=== PATIENT | male | born 1950 | race Caucasian/White ===

== ENCOUNTER 2023-01-14 16:37 | Outpatient (REF) | payer MEDICARE, SELFPAY ==
[2023-01-14 17:00] LABS: Adenovirus F 40/41 NOT DETECTED (NOT DETECTE); Astrovirus NOT DETECTED (NOT DETECTE); Campylobacter NOT DETECTED (NOT DETECTE); Cryptosporidium NOT DETECTED (NOT DETECTE); Cyclospora cayetanensis NOT DETECTED (NOT DETECTE); E coli 0157 NOT DETECTED (NOT DETECTE); Entamoeba histolytica NOT DETECTED (NOT DETECTE); Enteroaggregative E.coli NOT DETECTED (NOT DETECTE); Enteropathogenic E.coli NOT DETECTED (NOT DETECTE); Enterotoxigenic E. coli NOT DETECTED (NOT DETECTE); Giardia lamblia NOT DETECTED (NOT DETECTE); Norovirus GI/GII NOT DETECTED (NOT DETECTE); Plesiomonas shigelloides NOT DETECTED (NOT DETECTE); Rotavirus A NOT DETECTED (NOT DETECTE); Salmonella NOT DETECTED (NOT DETECTE); Sapovirus NOT DETECTED (NOT DETECTE); Shiga-like toxin-producing E.C NOT DETECTED (NOT DETECTE); Shigella/Enteroinvasive E.coli NOT DETECTED (NOT DETECTE); Vibrio NOT DETECTED (NOT DETECTE); Vibrio cholerae NOT DETECTED (NOT DETECTE); Yersinia enterocolitica NOT DETECTED (NOT DETECTE)
== END 2023-01-14 16:38 | disposition home or self-care (01) ==
LOC: LAB 16:37
PROVIDERS: Visit Provider Emergency Medicine
DX: R19.7 Diarrhea, unspecified (principal)
CPT/HCPCS: 87507

== ENCOUNTER 2023-02-25 12:55 | Observation (INO) | payer MEDICARE, SELFPAY ==
[2023-02-25] VITALS (15 sets, daily range): BP systolic 114–202; BP diastolic 55–105; PULSE 61–95; RESP 16–25; TEMP 36.6–36.8; O2SAT 93–98; BMI 22.9; BMI 23.8
--- NOTE | 2023-02-25 13:14 | XR_ITS ---
The [address] [address] Patient Name: JEB TOBISA MRN: [id number] date: 1950 Sex: M Assigned Patient Location: ER Current Patient Location: MS Accession/Order Number: [id number] Exam Date: 02/25/2023 14:00 Report Date: 02/25/2023 19:51 At the request of: MICHELE DICKERSON Procedure: XR chest 1V EXAMINATION: XR chest 1V HISTORY: syncope COMPARISON: No relevant comparison available. FINDINGS: LUNGS: No significant pulmonary parenchymal abnormalities. VASCULATURE: No increased pulmonary vasculature. PLEURA: No pneumothorax, effusion, or pleural thickening. CARDIAC: No cardiomegaly or cardiac silhouette abnormality. MEDIASTINUM: No visible mass or adenopathy. BONES: No fracture or visible bone lesion. OTHER: Negative. XR/XR chest 1V IMPRESSION: 1. No acute cardiopulmonary process. Preliminary findings were provided to the emergency department at time of imaging. Electronically authenticated by: LILIANA AREVALO Date: 02/25/2023 19:51
--- NOTE | 2023-02-25 13:14 | ECG_ITS ---
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
--- NOTE | 2023-02-25 13:14 | ED.SYNCOPE1 ---
HPI - Syncope General Chief Complaint: Syncope Stated Complaint: LOWER EXTREMITY INJURY Time Seen by Provider: 02/25/23 13:14 Mode of arrival: ambulance Limitations: no limitations History of Present Illness HPI narrative: Patient brought in via EMS with a complaint of syncope. Patient had been riding his bike to [place]. He went to the gym was lifting some weights and working out. He accidentally hit his right knee very hard onto a metal bar which caused him to feel like he was going to pass out from the pain. He became near syncopal and was thirst. he asked for some water And EMS was contacted. Patient states he was diaphoretic and bradycardic when EMS arrived at 49 beats per minutes. He denied any chest pain, or shortness of breath. He has no previous history of syncope. He has not been sick with any nausea, vomiting. Has a history of Crohn's disease and is only taking medication for Crohn's. He denies any upper respiratory infection symptoms. Patient's had a syncopal episode in July while he was in [place]. He had a CT scan of his brain done at that after he returned to the [facility]. He has never had any cardiac workup done more carotid Dopplers done. Related Data Home Medications Medication Instructions Recorded Confirmed lisinopril 5 mg tablet 5 mg BID 02/25/23 ondansetron 8 mg disintegrating 8 mg PO Q8H PRN nausea and vomiting 02/25/23 02/25/23 tablet Allergies Allergy/AdvReac Type Severity Reaction Status Date / Time Fish Containing Products AdvReac Severe Abdominal Verified 02/25/23 13:00 Pain Review of Systems ROS Status of ROS 10 or more systems reviewed and unremarkable except as noted in history and below Exam Narrative Exam Narrative: Nurses notes and vital signs reviewed and patient is not hypoxic. General: Nontoxic, and in no apparent distress. Skin: Warm, daiphoretic, no pallor noted. No Rash Head: Normocephalic, atraumatic. Neck: Supple, non-tender. Eye: Pupils are equal, round and EOMI. No scleral icterus. Ears, Nose, Mouth, and Throat: TM clear, no posterior oropharynx erythema or nasal mucosal hypertrophy, uvula is mid-line Oral mucosa is dry Cardiovascular: Regular Rate and Rhythm without murmur, gallop or rub. Respiratory: No accessory muscle use or respiratory distress. Lungs are clear to auscultation, no wheezing, rales or rhonchi Chest Wall: no tenderness Back: No midline thoracic or lumbar vertebral tenderness. No CVA tenderness Musculoskeletal: normal ROM, no calf or popliteal tenderness, no lower extremity edema/swelling GI: Abdomen is soft, non-distended. Normal bowel sounds. No masses appreciated. No tenderness to palpation. No rebound, guarding, or rigidity noted. Neurological: A&O x4. No cranial nerve dysfunction observed. No truncal ataxia. Moves all extremities. Sensation intact. Psychiatric: Cooperative and interactive. Normal mood and affect. Constitutional Vital Signs, click to edit/add: Last Vital Signs Temp 97.9 F 02/25/23 13:01 Pulse 79 02/25/23 14:00 Resp 25 H 02/25/23 13:10 BP 187/102 H 02/25/23 14:00 Pulse Ox 98 02/25/23 13:10 O2 Del Method Room Air 02/25/23 13:01 Course Vital Signs Vital signs: Vital Signs Temperature 97.9 F 02/25/23 13:01 Pulse Rate 92 H 02/25/23 13:01 Respiratory Rate 20 02/25/23 13:01 Blood Pressure 202/105 H 02/25/23 13:01 Pulse Oximetry 97 02/25/23 13:01 Oxygen Delivery Method Room Air 02/25/23 13:01 Temperature 97.9 F 02/25/23 13:01 Pulse Rate 79 02/25/23 14:00 Respiratory Rate 25 H 02/25/23 13:10 Blood Pressure 187/102 H 02/25/23 14:00 Pulse Oximetry 98 02/25/23 13:10 Oxygen Delivery Method Room Air 02/25/23 13:01 MDM - Syncope MDM Narrative Medical decision making narrative: Patient had IV established given 1 L normal saline. Previous records from [place] were reviewed. The patient had a CT scan of the brain which was unremarkable at that time. Patient had a syncopal episode in July while he was in [place]. He has not had any cardiac workup or a carotid Doppler's done since that episode. No previous history of heart disease, probable embolic disease reported. Patient's magnesium and calcium are low. They were replaced via IV. Garcia was bradycardic, diaphoretic when EMS arrived and the EKG captured sinus bradycardia at [address] depressions in 23 and aVF. The patient arrived to the emergency department the EKG was completely normal. Because of the findings and the patient's history of previous syncope patient was discussed with for a school will obstipation for continued telemetry, iv hydration, electrolyte replacement, and further evaluation. The patient complained of increased anxiety and was given 1 mg of Ativan IV. Differential Diagnosis Differential diagnosis: Likely syncope due to orthostatic hypotension, complete atrioventricular block and dehydration Medical Records Attestation: I reviewed the patient's medical records. Lab Data Attestation: I reviewed the patient's lab results. Labs: Lab Results 02/25/23 02/25/23 Range/Units 13:25 14:57 WBC 7.0 (4.0-11.0) 10^3/uL RBC 3.93 L (4.70-6.10) 10^6/uL Hgb 12.1 L (14.0-18.0) g/dL Hct 36.1 L (42.0-54.0) % MCV 91.9 (80.0-94.0) fL MCH 30.8 (25.9-34.0) pg MCHC 33.5 (29.9-35.2) g/dL RDW 12.6 (11.0-15.0) % Plt Count 198 (150-450) 10^3/uL MPV 9.7 (9.5-13.5) fL Neut % (Auto) 64.7 (43.0-75.0) % Lymph % (Auto) 26.2 (20.5-60.0) % [place] % (Auto) 7.1 (1.7-12.0) % Eos % (Auto) 1.3 (0.9-7.0) % Baso % (Auto) 0.4 (0.2-2.0) % Neut # (Auto) 4.6 (1.4-6.5) 10^3/uL Lymph # (Auto) 1.8 (1.2-3.8) 10^3/uL [place] # (Auto) 0.5 (0.3-0.8) 10^3/uL Eos # (Auto) 0.1 (0.0-0.7) 10^3/uL Baso # (Auto) 0.0 (0.0-0.1) 10^3/uL Abs Immat Gran (auto) 0.02 (0.00-0.03) 10^3/uL Imm/Tot Granulo (auto) 0.3 (0.0-0.5) % Sodium 138 (136-145) mmol/L Potassium 4.5 (3.5-5.1) mmol/L Chloride 106 (98-107) mmol/L Carbon Dioxide 24.2 (21.0-32.0) mmol/L Anion Gap 12.3 BUN 33.0 H (7.0-18.0) mg/dL Creatinine 1.36 H (0.70-1.30) mg/dL Est GFR ( Amer) >60 (>=60) Est GFR (Non-Af Amer) 51 L (>=60) BUN/Creatinine Ratio 24.3 Glucose 116 H (74-106) mg/dL Calcium 8.3 L (8.5-10.1) mg/dL Magnesium 1.3 L (1.8-2.4) mg/dL Total Bilirubin 0.4 (0.2-1.0) mg/dL AST 19 (15-37) U/L ALT 26 (16-63) U/L Alkaline Phosphatase 58 (46-116) U/L Troponin I High Sens 10.0 12.2 (4.0-76.1) pg/mL Total Protein 6.1 L (6.4-8.2) g/dL Albumin 3.4 (3.4-5.0) g/dL Globulin 2.7 g/dL Albumin/Globulin Ratio 1.3 TSH 1.973 (0.358-3.740) uIU/mL Urine Color Lt. yellow (YELLOW) Urine Clarity Clear (CLEAR) Urine pH 5.5 (5.0-9.0) Ur Specific [place] 1.025 (1.005-1.025) Urine Protein Negative (NEG/TRACE) mg/dL Urine Glucose (UA) Negative (NEGATIVE) mg/dL Urine Ketones Trace A (NEGATIVE) mg/dL Urine Occult Blood Moderate A (NEGATIVE) Urine Nitrite Negative (NEGATIVE) Urine Bilirubin Negative (NEGATIVE) Urine Urobilinogen 0.2 (0.2-1.0) EU/dL Ur Leukocyte Esterase Negative (NEGATIVE) Urine RBC 10-20 A (0-2) #/HPF Urine WBC 2-5 A (NONE SEEN) #/HPF Ur Squamous Epith Cells Few A (NONE/RARE) #/LPF Urine Bacteria Trace A (NONE SEEN) #/HPF Urine Mucus Moderate A (NONE SEEN) Ur Culture Indicated? Yes ECG Data Attestation: I personally reviewed and interpreted this ECG as follows: Interpretation: Sinus rhythm at 88 bpm. Normal axis, no acute ischemic changes. Patient's EKG from EMS showed sinus bradycardia at 48 beats per minute. Q-wave in the inferior leads subtle ST depression in 2-3 and aVF. Discharge Plan Discharge Chief Complaint: Syncope Clinical Impression: Dehydration, Syncope, Bradycardia by electrocardiogram, Hypomagnesemia, Hypocalcemia Patient Disposition: Admitted as Observation Time of Disposition Decision: 15:34 Condition: Good
[2023-02-25] MEDS: 0.9 % SODIUM CHLORIDE 1,000 ML 999 ML IV (13:29)
[2023-02-25 13:36] LABS: Basophils Percent Auto 0.4 % (0.2-2.0); Eosinophils Absolute Auto 0.1 10^3/uL (0.0-0.7); Eosinophils Percent Auto 1.3 % (0.9-7.0); Hematocrit 36.1 % (42.0-54.0); Hemoglobin 12.1 g/dL (14.0-18.0); Immature Granulocytes Abs Auto 0.02 10^3/uL (0.00-0.03); Immature Granulocytes Pct Auto 0.3 % (0.0-0.5); Lymphocytes Absolute Auto 1.8 10^3/uL (1.2-3.8); Lymphocytes Percent Auto 26.2 % (20.5-60.0); Mean Corpuscular HGB Conc 33.5 g/dL (29.9-35.2); Mean Corpuscular Hemoglobin 30.8 pg (25.9-34.0); Mean Corpuscular Volume 91.9 fL (80.0-94.0); Mean Platelet Volume 9.7 fL (9.5-13.5); Monocytes Absolute Auto 0.5 10^3/uL (0.3-0.8); Monocytes Percent Auto 7.1 % (1.7-12.0); Neutrophils Absolute Auto 4.6 10^3/uL (1.4-6.5); Neutrophils Percent Auto 64.7 % (43.0-75.0); Platelet Count 198 10^3/uL (150-450); Red Blood Count 3.93 10^6/uL (4.70-6.10); Red Cell Distribution Width 12.6 % (11.0-15.0)
[2023-02-25 13:43] LABS: Bilirubin Urine NEGATIVE (NEGATIVE); Blood Urine MODERATE (NEGATIVE); Clarity Urine CLEAR (CLEAR); Color Urine LT. YELLOW (YELLOW); Glucose Urine UA NEGATIVE (NEGATIVE); Ketones Urine TRACE mg/dL (NEGATIVE); Leukocyte Esterase Urine NEGATIVE (NEGATIVE); Nitrite Urine NEGATIVE (NEGATIVE); Protein Urine NEGATIVE (NEG/TRACE); Specific Gravity Urine 1.025 (1.005-1.025); Urobilinogen Urine 0.2 EU/dL (0.2-1.0); pH Urine 5.5 (5.0-9.0)
[2023-02-25 13:53] LABS: Urine Microscopic Indicated YES
[2023-02-25 14:00] LABS: Bacteria Urine TRACE #/HPF (NONE SEEN)
[2023-02-25 14:01] LABS: Mucus Urine MODERATE (NONE SEEN); Squamous Epithelial Cell Urine FEW #/LPF (NONE/RARE)
[2023-02-25 14:02] LABS: Urine Culture Indicated YES
[2023-02-25 14:08] LABS: Alanine Aminotransferase 26 U/L (16-63); Albumin Globulin Ratio 1.3; Albumin Level 3.4 g/dL (3.4-5.0); Alkaline Phosphatase 58 U/L (46-116); Anion Gap 12.3; Aspartate Amino Transferase 19 U/L (15-37); BUN Creatinine Ratio 24.3; Bilirubin Total 0.4 mg/dL (0.2-1.0); Calcium 8.3 mg/dL (8.5-10.1); Carbon Dioxide 24.2 mmol/L (21.0-32.0); Chloride 106 mmol/L (98-107); Estimated GFR (African America >60 (>=60); Estimated GFR (Non-African Ame 51 (>=60); Globulin 2.7 g/dL; Glucose 116 mg/dL (74-106); Magnesium 1.3 mg/dL (1.8-2.4); Potassium 4.5 mmol/L (3.5-5.1); Sodium 138 mmol/L (136-145); Thyroid Stimulating Hormone 1.973 uIU/mL (0.358-3.740); Total Protein 6.1 g/dL (6.4-8.2)
[2023-02-25] MEDS: CALCIUM GLUC IN NACL ISO OSM IV (15:09)
[2023-02-25] MEDS: LORAZEPAM 2 MG/ML 1 ML VIAL 1 MG IV (15:19)
[2023-02-25 15:29] LABS: Troponin I High Sensitivity 12.2 pg/mL (4.0-76.1)
[2023-02-25] MEDS: LACTATED RINGER'S SOLUTION 1,000 ML 100 ML IV (18:41)
[2023-02-25] MEDS: MAGNESIUM OXIDE 400 MG TABLET PO ×2 (18:42→21:06)
[2023-02-25] MEDS: LISINOPRIL 5 MG TABLET PO (21:06)
[2023-02-26] VITALS (8 sets, daily range): BP systolic 150; BP diastolic 72; PULSE 50–94; RESP 18; TEMP 36.6; O2SAT 94–97
[2023-02-26] MEDS: LACTATED RINGER'S SOLUTION 1,000 ML 100 ML IV (04:10)
[2023-02-26 04:57] LABS: Basophils Percent Auto 0.3 % (0.2-2.0); Eosinophils Absolute Auto 0.2 10^3/uL (0.0-0.7); Eosinophils Percent Auto 2.7 % (0.9-7.0); Hematocrit 33.7 % (42.0-54.0); Hemoglobin 11.5 g/dL (14.0-18.0); Immature Granulocytes Abs Auto 0.02 10^3/uL (0.00-0.03); Immature Granulocytes Pct Auto 0.3 % (0.0-0.5); Lymphocytes Absolute Auto 1.4 10^3/uL (1.2-3.8); Mean Corpuscular HGB Conc 34.1 g/dL (29.9-35.2); Mean Corpuscular Hemoglobin 31.2 pg (25.9-34.0); Mean Corpuscular Volume 91.3 fL (80.0-94.0); Mean Platelet Volume 9.7 fL (9.5-13.5); Monocytes Absolute Auto 0.5 10^3/uL (0.3-0.8); Monocytes Percent Auto 8.9 % (1.7-12.0); Neutrophils Absolute Auto 3.7 10^3/uL (1.4-6.5); Neutrophils Percent Auto 63.8 % (43.0-75.0); Platelet Count 194 10^3/uL (150-450); Red Blood Count 3.69 10^6/uL (4.70-6.10); Red Cell Distribution Width 12.7 % (11.0-15.0); White Blood Count 5.9 10^3/uL (4.0-11.0)
[2023-02-26 05:49] LABS: Alanine Aminotransferase 23 U/L (16-63); Albumin Level 2.8 g/dL (3.4-5.0); Alkaline Phosphatase 46 U/L (46-116); Anion Gap 11.6; Aspartate Amino Transferase 15 U/L (15-37); BUN Creatinine Ratio 25.3; Bilirubin Total 0.3 mg/dL (0.2-1.0); Calcium 8.3 mg/dL (8.5-10.1); Carbon Dioxide 25.7 mmol/L (21.0-32.0); Chloride 108 mmol/L (98-107); Estimated GFR (African America >60 (>=60); Estimated GFR (Non-African Ame >60 (>=60); Globulin 2.8 g/dL; Glucose 108 mg/dL (74-106); Magnesium 1.8 mg/dL (1.8-2.4); Potassium 4.3 mmol/L (3.5-5.1); Sodium 141 mmol/L (136-145); Total Protein 5.6 g/dL (6.4-8.2)
[2023-02-26] MEDS: MAGNESIUM OXIDE 400 MG TABLET PO (06:14)
--- NOTE | 2023-02-26 08:52 | PM.HP ---
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 He reports that he rides his bike daily to [facility] and also was going to the gym yesterday when he hit his knee and suffered some significant pain and then felt dizzy. He felt as if he might pass out but did not lose consciousness. He denies any prior heart history but when the EMS arrived his heart rate was found to be in the 40s. He denied any chest pain just felt shaky and does note that he did not drink much while on his bicycle. He denies any fevers or chills any current chest pain shortness of breath and was admitted last night for observation to telemetry. 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 Does take lisinopril 5 mg twice a day for his blood pressure Review of Systems ROS Narrative ROS: a complete review of systems were reviewed with patient and are positive as below or listed in History of Chief Complaint. General: no fever, chills, night sweats Head: no headache, trauma, visual changes, nausea or vomiting Skin: no reported rashes, itching or sores Eyes: no blurriness of vision Ears: no reported hearing loss, vertigo, earache, or tinnitus Throat: no sore throat, hoarseness, swelling of neck, or tongue pain Heart: no chest pain Lungs: no shortness of breath or cough GI: no diarrhea or vomiting/nausea Urinary: no urinary urgency, frequency or pain Neuro: no numbness or tingling HEM: no bleeding issues or bruising ENDO: no thyroid problems Psych: no anxiety or depression [facility] Medical History (Updated 02/26/23 @ 14:34 by Georgia Awan DO) Social History Within the past year, how often did you have a drink containing alcohol: 2-3 times a week Within the past year, how many standard drinks containing alcohol did you have on a typical day: 1 or 2 Within the past year, how often did you have six or more drinks on one occasion: never Total score: 0 Score interpretation: A score less than 4 is consistent with normal alcohol consumption. 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 Little interest or pleasure in doing things: not at all Feeling down, depressed, or hopeless: not at all Feel stressed/tense/nervous/anxious/difficulty sleeping: not at all Do you think of yourself as: straight/heterosexual Gender Identity: male Meds Home Medications and Allergies Home Medications Medication Instructions Recorded Confirmed Type lisinopril 5 mg tablet 10 mg PO BID 02/25/23 02/26/23 History mesalamine 400 mg capsule (with 800 mg PO BID 02/25/23 02/25/23 History delayed release tablets inside) ondansetron 8 mg disintegrating 8 mg PO Q8H PRN nausea and vomiting 02/25/23 02/25/23 History tablet ciprofloxacin HCl 500 mg tablet 500 mg PO BID 7 days #14 tabs 02/26/23 Rx Allergies Allergy/AdvReac Type Severity Reaction Status Date / Time Fish Containing Products AdvReac Severe Abdominal Verified 02/25/23 13:00 Pain Exam Narrative Exam Narrative: General: Patient is alert, and oriented to person, place and time with normal affect, proper hygiene Skin: no visible rashes, or ulcers Head: atraumatic, acephalic Eyes: PERRLA, no nystagmus present, conjunctiva clear, no scleral icterus Ears: normal Tympanic Membrane, normal gross auditory acuity Nose: symmetric, no discharge, no maxillary or frontal sinus tenderness Mouth/Throat: no erythema, exudate, or tonsillar enlargement, normal dentition Neck: no masses palpated, normal thyroid, no JVD or audible carotid bruits Heart: Normal rate and rhythm, no murmurs/rubs/gallops Lungs: no audible wheezes, crackles and normal breath sounds all lung orozco Abdomen: Normal audible bowel sounds, no distension, No palpable masses, no organomegaly, no rebound/guarding/ or rigidity Musculoskeletal: muscle atrophy noted, ROM is limited due to being in hospital bed, no swelling bilateral lower extremities Vascular: Normal carotid, radial, femoral, posterior tibial, and dorsalis pedis pulses Lymph: no supraclavicular, axillary, or anterior/posterior cervical adenopathy Neuro: CN II-X grossly intact, normal sensation upper and lower extremities Constitutional Vital Signs, click to edit/add: Last Vital Signs Temp 97.8 F 02/26/23 04:04 Pulse 94 H 02/26/23 07:59 Resp 18 02/26/23 04:04 BP 150/72 H 02/26/23 04:04 Pulse Ox 94 L 02/26/23 04:04 O2 Del Method Room Air 02/26/23 04:04 Results Labs Labs: Short CBC 02/25/23 02/26/23 Range/Units 13:25 04:05 WBC 7.0 5.9 (4.0-11.0) 10^3/uL Hgb 12.1 L 11.5 L (14.0-18.0) g/dL Hct 36.1 L 33.7 L (42.0-54.0) % Plt Count 198 194 (150-450) 10^3/uL BMP 02/25/23 02/26/23 13:25 04:05 Sodium 138 141 Potassium 4.5 4.3 Chloride 106 108 H Carbon Dioxide 24.2 25.7 BUN 33.0 H 23.0 H Creatinine 1.36 H 0.91 Glucose 116 H 108 H Calcium 8.3 L 8.3 L Liver Function 02/25/23 02/26/23 Range/Units 13:25 04:05 Total Bilirubin 0.4 0.3 (0.2-1.0) mg/dL AST 19 15 (15-37) U/L ALT 26 23 (16-63) U/L Alkaline Phosphatase 58 46 (46-116) U/L Albumin 3.4 2.8 L (3.4-5.0) g/dL Urine 02/25/23 Range/Units 13:25 Urine Color Lt. yellow (YELLOW) Urine Clarity Clear (CLEAR) Urine pH 5.5 (5.0-9.0) Ur Specific [place] 1.025 (1.005-1.025) Urine Protein Negative (NEG/TRACE) mg/dL Urine Glucose (UA) Negative (NEGATIVE) mg/dL Assessment and Plan Assessment and Plan (1) Dehydration: (2) Neurocardiogenic pre-syncope: (3) Bradycardia by electrocardiogram: (4) Hypomagnesemia: (5) Hypocalcemia: (6) UTI (urinary tract infection): Assessment and Plan: given dose of Rocephin and will be treated with Cipro as outpatient Plan patient was provided with IV fluid hydration some magnesium and calcium replacement. No events overnight on telemetry. Patient denies any recent dizziness or presyncopal episodes, thyroid was normal other electrolytes were normal. Patient's blood pressure and heart rate has been maintained normal throughout the hospital stay. We discussed outpatient follow-up with cardiology for further workup including heart Holter monitor possible carotid artery ultrasounds, exercise stress test with echo. Patient understands that it Tuesday were not able to make his appointment but will be discharged home today. patient is full code Ambulation for deep vein thrombosis prophylaxis Patient is admitted to observation is not expected to stay more than two midnights
[2023-02-26] MEDS: LISINOPRIL 5 MG TABLET PO (09:39)
[2023-02-26] MEDS: CEFTRIAXONE 1,000 MG in 0.9 % SODIUM CHLORIDE 50 ML 100 MG IV (09:39)
--- NOTE | 2023-02-26 14:35 | P.DS_ITS ---
DS: Providers Provider Date of admission: 02/25/23 16:42 Primary care physician: Non-Staff Physician, DS: Diagnosis Discharge Diagnosis (1) Dehydration: (2) Neurocardiogenic pre-syncope: (3) Bradycardia by electrocardiogram: (4) Hypomagnesemia: (5) Hypocalcemia: (6) UTI (urinary tract infection): DS: Summary Hospital Course Hospital Course: patient was provided with IV fluid hydration some magnesium and calcium replacement. No events overnight on telemetry. Patient denies any recent dizziness or presyncopal episodes, thyroid was normal other electrolytes were normal. Patient's blood pressure and heart rate has been maintained normal throughout the hospital stay. We discussed outpatient follow-up with cardiology for further workup including heart Holter monitor possible carotid artery ultrasounds, exercise stress test with echo. Patient understands that it Tuesday were not able to make his appointment but will be discharged home today.treat urinary tract infection with outpatient Cipro Time Spent with Patient Time attestation: Total time spent providing and/or coordinating discharge services: Time spent: less than 30 minutes Exam Narrative Exam Narrative: no changes to discharge exam,please see H and P admission exam Constitutional Vital Signs, click to edit/add: Last Vital Signs Temp 97.8 F 02/26/23 04:04 Pulse 75 02/26/23 10:03 Resp 18 02/26/23 04:04 BP 150/72 H 02/26/23 04:04 Pulse Ox 97 02/26/23 10:38 O2 Del Method Room Air 02/26/23 10:38 DS: Data Data Completed and Pending Labs on day of discharge: Labs from last 24 hours 02/26/23 02/25/23 04:05 14:57 WBC 5.9 RBC 3.69 L Hgb 11.5 L Hct 33.7 L MCV 91.3 MCH 31.2 MCHC 34.1 RDW 12.7 Plt Count 194 MPV 9.7 Neut % (Auto) 63.8 Lymph % (Auto) 24.0 [place] % (Auto) 8.9 Eos % (Auto) 2.7 Baso % (Auto) 0.3 Neut # (Auto) 3.7 Lymph # (Auto) 1.4 [place] # (Auto) 0.5 Eos # (Auto) 0.2 Baso # (Auto) 0.0 Abs Immat Gran (auto) 0.02 Imm/Tot Granulo (auto) 0.3 Sodium 141 Potassium 4.3 Chloride 108 H Carbon Dioxide 25.7 Anion Gap 11.6 BUN 23.0 H Creatinine 0.91 Est GFR ( Amer) >60 Est GFR (Non-Af Amer) >60 BUN/Creatinine Ratio 25.3 Glucose 108 H Calcium 8.3 L Magnesium 1.8 Total Bilirubin 0.3 AST 15 ALT 23 Alkaline Phosphatase 46 Troponin I High Sens 12.2 Total Protein 5.6 L Albumin 2.8 L Globulin 2.8 Albumin/Globulin Ratio 1.0 Discharge Plan Discharge Disposition: Home, Self-Care Condition: Good Discharge Medications: New ciprofloxacin HCl 500 mg tablet 500 mg PO BID 7 Days Qty: 14 0RF Continued lisinopril 5 mg tablet 10 mg PO BID ondansetron 8 mg tablet,disintegrating 8 mg PO Q8H PRN (Reason: nausea and vomiting) mesalamine 400 mg capsule (with del rel tablets) 800 mg PO BID Activity: increase activity as tolerated Diet: advance to your usual diet Patient Instructions: Ciprofloxacin (By mouth), Near Syncope (DC) Forms: Portal Instructions Follow Up Appointments: Will need follow up with Cardiology for Holter monitor, carotid ultrasounds and echo, possible exercise stress test #[phone] Is not currently established with a PCP, will provide list of physicians that are accepting new patients Discharge Date/Time: 02/26/23 12:26
--- NOTE | 2023-02-28 15:53 | CM.DCFOLLOWU ---
Person spoke with: Clark How are you feeling? Much better How is your pain? none Did you understand your discharge instructions? yes Do you have any questions about your discharge instructions?no Were you given any prescriptions at discharge? yes Were you able to get your prescriptions filled? yes Do you understand how to take your medications as ordered? yes Do you have any questions about your follow up appointment and do you plan to keep your follow up appointment? No- everything is scheduled, coming in Wed for halter and echo Is there anything else that you would like to discuss? No Questions/Comments/Concerns/Other:
== END 2023-02-26 12:26 | disposition home or self-care (01) ==
LOC: ER 16:47 → MS 16:48
PROVIDERS: Family Medicine; Admitting Provider Family Medicine; Emergency Provider Emergency Medicine; Visit Provider Family Medicine
DX: E86.0 Dehydration (principal); R55 Syncope and collapse; R00.1 Bradycardia, unspecified; E83.42 Hypomagnesemia; E83.51 Hypocalcemia; N39.0 Urinary tract infection, site not specified; K50.90 Crohn's disease, unspecified, without complications; F41.9 Anxiety disorder, unspecified; Z79.899 Other long term (current) drug therapy
CPT/HCPCS: 36415; 71045; 80053; 81001; 81003; 81015; 83735; 84443; 84484; 85025; 87086; 87493; 93005; 94761; 96361; 96365; 96366; 96367; 96368; 96375; 99285; G0378

== ENCOUNTER 2023-03-02 07:47 | Outpatient (OUT) | payer MEDICARE, SELFPAY ==
--- NOTE | 2023-03-02 07:50 | US_ITS ---
[place] [id number] Patient Name: JEB TOBIAS MRN: [id number] date: 1950 Sex: M Assigned Patient Location: US Current Patient Location: LAB Accession/Order Number: [id number] Exam Date: 03/02/2023 08:00 Report Date: 03/02/2023 18:05 At the request of: LAUREN VALLEJO Procedure: US carotid duplex BI EXAMINATION: US carotid duplex BI HISTORY: Chest Pain R07.9, Syncope And Collapse R56 COMPARISON: No relevant comparison available. TECHNIQUE: Duplex Doppler ultrasound analysis of carotid and vertebral arteries. . Bilateral carotid arterial duplex examination was performed using B-mode, color flow and spectral analysis. Carotid stenosis is reported according to validated velocity parameters, similar to NASCET criteria. FINDINGS: RIGHT CAROTID ARTERY Mild atherosclerotic plaque Subclavian: PSV: 161.7 cm/s cm/s EDV: 0.0 cm/s cm/s CCA: Prox: PSV: 89.7 cm/s cm/s EDV: 15.3 cm/s cm/s Mid: PSV: 73.7 cm/s cm/s EDV: 15.5 cm/s cm/s Distal: PSV: 73.7 cm/s cm/s EDV: 17.1 cm/s cm/s BULB: PSV: 56.4 cm/s cm/s EDV: 12.8 cm/s cm/s ICA: Prox: PSV: 75.8 cm/s cm/s EDV: 20.8 cm/s cm/s Mid: PSV: 88.7 cm/s cm/s EDV: 17.6 cm/s cm/s Distal: PSV: 70.9 cm/s cm/s EDV: 11.1 cm/s cm/s ECA: PSV: 127.6 cm/s cm/s EDV: 16.0 cm/s cm/s VERTEBRAL: PSV: 51.6 cm/s cm/s EDV: 10.2 cm/s cm/s, antegrade ICA/CCA ratio: PSV: 1.0 EDV: 1.1 LEFT CAROTID ARTERY mild atherosclerotic plaque Subclavian: PSV: 150.8 cm/s cm/s EDV: 0.0 cm/s CCA: Prox: PSV: 109.0 cm/s cm/s EDV: 23.0 cm/s Mid: PSV: 95.0 cm/s cm/s EDV: 18.4 cm/s Distal: PSV: 83.4 cm/s cm/s EDV: 16.0 cm/s BULB: PSV: 79.0 cm/s cm/s EDV: 16.0 cm/s ICA: Prox: PSV: 77.4 cm/s cm/s EDV: 16.0 cm/s Mid: PSV: 67.7 cm/s cm/s EDV: 16.0 cm/s Distal: PSV: 64.4 cm/s cm/s EDV: 11.1 cm/s ECA: PSV: 148.5 cm/s cm/s EDV: 16.0 cm/s VERTEBRAL: PSV: 42.8 cm/s cm/s EDV: 9.8 cm/s , antegrade ICA/CCA ratio: PSV: 0.7 EDV: 0.7 US/US carotid duplex BI IMPRESSION: 0-49% flow stenosis bilateral internal carotid arteries Spectral Doppler US Thresholds (Reference: Dustin EG, et al. Radiology 2000; 214:247-252) Stenosis (%) PSV (cm/sec) VICA/VCCA 0-49 <150 <2.5 50-69 150-225 2.5-4.0 >70 >225 >4.0 Electronically authenticated by: ROBERT DAVENPORT Date: 03/02/2023 18:05
--- NOTE | 2023-03-02 08:21 | CA_ITS ---
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1950 Requested By: LAUREN VALLEJO Order Number: [id number] Reading MD: PATRICIA BISHOP Interpretive Statements Predominant rhythm is sinus with average rate of 78 bpm Tachycardia - max rate of 223 bpm (brief episodes of PSVT) - max rate of 138 bpm (sinus tachycardia) - 10 episodes of PSVT w/ longest duration of 10 beats - longest episode of 1hr 19min 47sec with rate of 109-126 bpm Bradycardia - min rateof 41 bpm - longest episode of 34min 31sec with rate of 56 bpm Ventricular ectopy - 66 total (<1%) - 47 PVC - 4 couplets - 2 episodes of NSVT w/ longest duration of 9 beats Patient triggered events: 3 - associated with rates of 106, 107 and 105 bpm - not associate with symptoms IMpression: Predominant rhythm is sinus with average rate of 78 bpm Fastest rate of 223 bpm and slowest rate of 41 bpm 2 episodes of NSVT w/ duration of 9 and 5 beats 47 PVC, 4 couplets No pauses of blocks Electronically Signed On 03-23-2023 7:20:20 EDT by PATRICIA BISHOP
== END 2023-03-02 07:48 | disposition home or self-care (01) ==
LOC: US 07:47
PROVIDERS: Visit Provider Family Medicine
DX: R55 Syncope and collapse (principal); I65.23 Occlusion and stenosis of bilateral carotid arteries; R07.9 Chest pain, unspecified
CPT/HCPCS: 93246; 93880

== ENCOUNTER 2023-03-13 14:30 | Observation (INO) | payer MEDICARE, SELFPAY ==
[2023-03-13] VITALS (34 sets, daily range): BP systolic 138–195; BP diastolic 70–107; PULSE 60–88; RESP 10–30; TEMP 36.4–36.6; O2SAT 95–98; BMI 24.4; BMI 24.2
--- NOTE | 2023-03-13 14:32 | ED_ITS ---
HPI - General Adult General Chief complaint: Chest Pain Stated complaint: chest pain Time Seen by Provider: 03/13/23 14:32 History of Present Illness HPI narrative: Presents to emergency department complaining of chest pain. Patient was brought in via EMS. Patient states he was riding his bicycle he normally bites over 10 miles daily. He was on his regular bike ride and started feeling substernal chest [place] and pressure so he called EMS. At that time his was hypertensive and EMS gave him one nitroglycerin. He denies any shortness of breath, diaphoresis, lightheadedness or dizziness when he had this episode. Pain lasted up couple of minutes. Patient was recently seen for neurocardiogenic syncope. He was bradycardic at the time. He had to monitor for 7 days and has been scheduled as an outpatient for a cardiac echo. Patient has not had the echo done. Patient states he feels slightly anxious. He has a history of Crohn's. He denies any Fever, chills, or cough. He denies any abdominal pain, nausea, vomiting. He has no previous history of heart disease. had a cardiac workup. Related Data Home Medications Medication Instructions Recorded Confirmed lisinopril 5 mg tablet 10 mg PO BID 02/25/23 02/26/23 mesalamine 400 mg capsule (with 800 mg PO BID 02/25/23 02/25/23 delayed release tablets inside) ondansetron 8 mg disintegrating 8 mg PO Q8H PRN nausea and vomiting 02/25/23 02/25/23 tablet Previous Rx's Medication Instructions Recorded ciprofloxacin HCl 500 mg tablet 500 mg PO BID 7 days #14 tabs 02/26/23 Allergies Allergy/AdvReac Type Severity Reaction Status Date / Time Fish Containing Products AdvReac Severe Abdominal Verified 03/13/23 14:40 Pain PFSH [facility] Medical History (Updated 03/13/23 @ 17:43 by Renetta Lacey MD) Social History Within the past year, how often did you have a drink containing alcohol: 2-3 times a week Within the past year, how many standard drinks containing alcohol did you have on a typical day: 1 or 2 Within the past year, how often did you have six or more drinks on one occasion: never Total score: 0 Score interpretation: A score less than 4 is consistent with normal alcohol consumption. 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 Little interest or pleasure in doing things: not at all Feeling down, depressed, or hopeless: not at all Feel stressed/tense/nervous/anxious/difficulty sleeping: not at all Do you think of yourself as: straight/heterosexual Gender Identity: male Exam Constitutional Vital Signs, click to edit/add: Last Vital Signs Pulse 82 03/13/23 17:10 Resp 18 03/13/23 17:10 BP 163/79 H 03/13/23 17:00 Pulse Ox 97 03/13/23 15:10 O2 Del Method Room Air 03/13/23 14:35 Course Vital Signs Vital signs: Vital Signs Pulse Rate 82 03/13/23 14:35 Respiratory Rate 14 03/13/23 14:35 Blood Pressure 195/98 H 03/13/23 14:35 Pulse Oximetry 98 03/13/23 14:35 Oxygen Delivery Method Room Air 03/13/23 14:35 Pulse Rate 82 03/13/23 17:10 Respiratory Rate 18 03/13/23 17:10 Blood Pressure 163/79 H 03/13/23 17:00 Pulse Oximetry 97 03/13/23 15:10 Oxygen Delivery Method Room Air 03/13/23 14:35 Medical Decision Making MDM Narrative Medical decision making narrative: Patient's EKG shows sinus rhythm 78 bpm there are no acute ischemic changes. Normal axis. Patient's chest x-ray is unremarkable. Patient her recent syncopal episodes. He was discussed with Dr. Godwin who advised the patient will probably need a heart catheterization. I discussed the patient with Dr. Andino- cardiology mobile application development lead who advised at this point the patient can be admitted to our facility. He does not need to be transferred to higher level emergently. He adv. to monitor the patient here and do an echocardiogram and arrange for a stress test. His was discussed with Dr. Godwin who will obs patient to a Medr bed with telemetry. Medical Records Medical records reviewed: Yes I reviewed the patient's medical records Lab Data Lab results reviewed: Yes I reviewed the patient's lab results Labs: Lab Results 03/13/23 03/13/23 Range/Units 14:58 16:48 WBC 5.6 (4.0-11.0) 10^3/uL RBC 3.97 L (4.70-6.10) 10^6/uL Hgb 12.5 L (14.0-18.0) g/dL Hct 36.2 L (42.0-54.0) % MCV 91.2 (80.0-94.0) fL MCH 31.5 (25.9-34.0) pg MCHC 34.5 (29.9-35.2) g/dL RDW 13.2 (11.0-15.0) % Plt Count 241 (150-450) 10^3/uL MPV 9.1 L (9.5-13.5) fL Neut % (Auto) 55.9 (43.0-75.0) % Lymph % (Auto) 30.1 (20.5-60.0) % [place] % (Auto) 9.6 (1.7-12.0) % Eos % (Auto) 3.5 (0.9-7.0) % Baso % (Auto) 0.5 (0.2-2.0) % Neut # (Auto) 3.2 (1.4-6.5) 10^3/uL Lymph # (Auto) 1.7 (1.2-3.8) 10^3/uL [place] # (Auto) 0.5 (0.3-0.8) 10^3/uL Eos # (Auto) 0.2 (0.0-0.7) 10^3/uL Baso # (Auto) 0.0 (0.0-0.1) 10^3/uL Abs Immat Gran (auto) 0.02 (0.00-0.03) 10^3/uL Imm/Tot Granulo (auto) 0.4 (0.0-0.5) % PT 10.5 (9.0-11.6) sec INR 0.99 Sodium 141 (136-145) mmol/L Potassium 4.6 (3.5-5.1) mmol/L Chloride 107 (98-107) mmol/L Carbon Dioxide 25.3 (21.0-32.0) mmol/L Anion Gap 13.3 BUN 21.0 H (7.0-18.0) mg/dL Creatinine 1.12 (0.70-1.30) mg/dL Est GFR ( Amer) >60 (>=60) Est GFR (Non-Af Amer) >60 (>=60) BUN/Creatinine Ratio 18.8 Glucose 102 (74-106) mg/dL Calcium 8.0 L (8.5-10.1) mg/dL Magnesium 1.5 L (1.8-2.4) mg/dL Total Bilirubin 0.4 (0.2-1.0) mg/dL AST 20 (15-37) U/L ALT 26 (16-63) U/L Alkaline Phosphatase 58 (46-116) U/L Troponin I High Sens 10.9 13.3 (4.0-76.1) pg/mL NT-Pro-B Natriuret Pep 123.0 (<=900.0) pg/mL Total Protein 6.3 L (6.4-8.2) g/dL Albumin 3.2 L (3.4-5.0) g/dL Globulin 3.1 g/dL Albumin/Globulin Ratio 1.0 ECG Data Attestation: I personally reviewed and interpreted this ECG as follows: Discharge Plan Discharge Chief Complaint: Chest Pain Clinical Impression: Chest pain on exertion, Hypomagnesemia, Hypocalcemia Patient Disposition: Admitted as Observation Time of Disposition Decision: 17:43 Condition: Good Prescriptions / Home Meds: No Action lisinopril 5 mg tablet 10 mg PO BID ondansetron 8 mg tablet,disintegrating 8 mg PO Q8H PRN (Reason: nausea and vomiting) mesalamine 400 mg capsule (with del rel tablets) 800 mg PO BID ciprofloxacin HCl 500 mg tablet 500 mg PO BID 7 Days Qty: 14 0RF Referrals: Physician,Non-Staff, MD [Primary Care Provider] - 1 week
--- NOTE | 2023-03-13 14:32 | XR_ITS ---
[address] [address] Patient Name: JEB TOBIAS MRN: [id number] date: 1950 Sex: M Assigned Patient Location: ER Current Patient Location: ER Accession/Order Number: [id number] Exam Date: 03/13/2023 15:25 Report Date: 03/13/2023 15:56 At the request of: MICHELE DICKERSON Procedure: XR chest 1V EXAMINATION: XR chest 1V HISTORY: Chest pain COMPARISON: Chest x-ray 02/25/2023 TECHNIQUE: Portable chest FINDINGS: The lung parenchyma is free of consolidation or infiltrate. No pneumothorax or pleural effusion. The cardiac, mediastinal and hilar contours are normal. The visualized osseous structures exhibit no gross abnormality. XR/XR chest 1V IMPRESSION: No acute cardiopulmonary abnormality. Electronically authenticated by: ROBERT NIEVES Date: 03/13/2023 15:56
--- NOTE | 2023-03-13 14:32 | ECG_ITS ---
[facility] Test Date: 2023-03-13 Pat Name: JEB TOBIAS Department: Room: - Gender: Male [employer] Ventilator: : 1950 Requested By: [id number] Order Number: [id number] Reading MD: PATRICIA BISHOP Measurements Intervals [place] Rate: 78 P: 68 PA: 162 QRS: 58 QRSD: 90 T: 70 QT: 376 QTc: 409 Interpretive Statements 1100 Sinus rhythm 9110 normal ECG Compared to ECG 02/25/2023 13:08:51 No significant changes Electronically Signed On 03-13-2023 18:30:43 EDT by PATRICIA BISHOP
--- NOTE | 2023-03-13 14:47 | XR_ITS ---
[facility] [place] [id number] Patient Name: JEB TOBIAS MRN: [id number] date: 1950 Sex: M Assigned Patient Location: ER Current Patient Location: ER Accession/Order Number: [id number] Exam Date: 03/13/2023 15:25 Report Date: 03/13/2023 15:56 At the request of: MICHELE DICKERSON Procedure: XR finger LT min 2V EXAM: XR finger LT min 2V HISTORY: thumb, fb COMPARISON: None. TECHNIQUE: 2 views FINDINGS: IMPRESSION: No visualized fracture, dislocation, subluxation, osseous lesion or radiodense foreign body. Joint spaces are unremarkable for patient's age. Electronically authenticated by: ROBERT NIEVES Date: 03/13/2023 15:56
[2023-03-13] MEDS: PANTOPRAZOLE SODIUM 40 MG VIAL IV (14:59)
[2023-03-13] MEDS: LORAZEPAM 2 MG/ML 1 ML VIAL 1 MG IV (14:59)
[2023-03-13] MEDS: 0.9 % SODIUM CHLORIDE 1,000 ML 1000 ML IV (15:00)
[2023-03-13 15:07] LABS: Basophils Percent Auto 0.5 % (0.2-2.0); Eosinophils Absolute Auto 0.2 10^3/uL (0.0-0.7); Eosinophils Percent Auto 3.5 % (0.9-7.0); Hematocrit 36.2 % (42.0-54.0); Hemoglobin 12.5 g/dL (14.0-18.0); Immature Granulocytes Abs Auto 0.02 10^3/uL (0.00-0.03); Immature Granulocytes Pct Auto 0.4 % (0.0-0.5); Lymphocytes Absolute Auto 1.7 10^3/uL (1.2-3.8); Lymphocytes Percent Auto 30.1 % (20.5-60.0); Mean Corpuscular HGB Conc 34.5 g/dL (29.9-35.2); Mean Corpuscular Hemoglobin 31.5 pg (25.9-34.0); Mean Corpuscular Volume 91.2 fL (80.0-94.0); Mean Platelet Volume 9.1 fL (9.5-13.5); Monocytes Absolute Auto 0.5 10^3/uL (0.3-0.8); Monocytes Percent Auto 9.6 % (1.7-12.0); Neutrophils Absolute Auto 3.2 10^3/uL (1.4-6.5); Neutrophils Percent Auto 55.9 % (43.0-75.0); Platelet Count 241 10^3/uL (150-450); Red Blood Count 3.97 10^6/uL (4.70-6.10); Red Cell Distribution Width 13.2 % (11.0-15.0); White Blood Count 5.6 10^3/uL (4.0-11.0)
[2023-03-13 15:25] LABS: INR 0.99; Prothrombin Time 10.5 sec (9.0-11.6)
[2023-03-13 15:43] LABS: Alanine Aminotransferase 26 U/L (16-63); Albumin Level 3.2 g/dL (3.4-5.0); Alkaline Phosphatase 58 U/L (46-116); Anion Gap 13.3; Aspartate Amino Transferase 20 U/L (15-37); BUN Creatinine Ratio 18.8; Bilirubin Total 0.4 mg/dL (0.2-1.0); Carbon Dioxide 25.3 mmol/L (21.0-32.0); Chloride 107 mmol/L (98-107); Estimated GFR (African America >60 (>=60); Estimated GFR (Non-African Ame >60 (>=60); Globulin 3.1 g/dL; Glucose 102 mg/dL (74-106); Potassium 4.6 mmol/L (3.5-5.1); Sodium 141 mmol/L (136-145); Total Protein 6.3 g/dL (6.4-8.2); Troponin I High Sensitivity 10.9 pg/mL (4.0-76.1)
[2023-03-13 15:54] LABS: Magnesium 1.5 mg/dL (1.8-2.4)
[2023-03-13] MEDS: CALCIUM GLUC IN NACL ISO OSM IV (16:43)
[2023-03-13 17:13] LABS: Troponin I High Sensitivity 13.3 pg/mL (4.0-76.1)
--- NOTE | 2023-03-13 17:45 | CA_ITS ---
Patient: JEB TOBIAS Exam Date: 03/14/2023 : 1950 Gender:M Ordering : DR Rodriguez Godwin . Admission #: [id number] Family : DR MICHAELA WATERMAN M.D. Order #: [id number] CLICK HERE TO VIEW EXAM ECHOCARDIOGRAM REPORT PROCEDURE: CA ECHO DOPPLER COMPLETE INDICATIONS: Dyspnea, Chest pain COMPARISON: None. DESCRIPTION: COMPLETE ECHOCARDIOGRAM Real-time transthoracic echocardiography with 2D, M-mode, spectral and color flow Doppler performed. QUALITY: Technical quality was good. BSA 2.04m2 LEFT VENTRICLE: Normal chamber size. Moderate concentric left ventricular hypertrophy. Global left ventricular systolic function is normal. LV EF: Estimated left ventricular ejection fraction is 55% DIASTOLIC: Grade 2 diastolic dysfunction. ATRIAL SEPTUM: LEFT ATRIUM: Moderate dilatation. RIGHT ATRIUM: Mild dilatation. RIGHT VENTRICLE: Normal chamber size. Normal right ventricular systolic function. TRICUSPID VALVE: Normal mobility and thickness. No stenosis with mild regurgitation. Mild pulmonary hypertension. RVSP 44 mmHg MITRAL VALVE: Normal mobility and thickness. No evidence of mitral valve stenosis. There is no mitral annular calcification. Mild to moderate mitral regurgitation. AORTIC VALVE: Normal trileaflet appearance. No visible sclerosis. Normal leaflet mobility. No evidence of aortic valve stenosis. Mild to moderate aortic regurgitation. AORTIC ROOT: Normal diameter and appearance. PULMONIC VALVE: Normal thickness and mobility. No stenosis. Trivial regurgitation. PERICARDIUM: No evidence of pericardial effusion. IVC: Collapses with inspirations. Mild dilatation measuring 2.3cm. PLEURA: CONCLUSION: 1. Moderate concentric left regular hypertrophy. Left ventricular systolic function is normal. Estimated LVEF is 55%. 2. Normal right ventricular size and systolic function. 3. Moderate left atrial dilatation. 4. Grade 2 diastolic dysfunction. 5. Mild to moderate aortic and mitral regurgitation. 6. Mildly elevated right-sided pressures. Adult Echocardiography Procedure Report Left Ventricle LVEDD (3.7 - 5.6 cm): 4.45 cm LVESD (2.2 - 4.0 cm): 2.81 cm LVIVS thickness (0.6 - 1.2 cm): 1.63 cm LVPW thickness (0.5 - 1.0 cm): 1.32 cm e': 0.09 m/s E - e': 8.00 LVOT Max Gradient: 3.93 mm[Hg] LVOT Area (cm2): 0.99 m/s Peak Velocity (LVOT): 0.99 m/s Mean Velocity (LVOT): 0.61 m/s LVOT Diameter 1.99 cm Left Ventricular Ejection Fraction: 55% Left Atrium LA Volume Index (2D A2C): 46.79 ml/m2 Left Atrium Systolic Dimension: 3.40 cm Mitral Valve MV E to A Ratio: 1.13 Mitral Valve A-Wave Peak Velocity: 0.65 m/s Mitral Valve E-Wave Peak Velocity: 0.74 m/s Right Ventricle RV Internal Diastolic Dimension: 3.05 cm Aorta AO Root Diam: 3.69 cm Ascending Ao Diam: 3.63 cm Aortic Valve AoV Area (Peak Zac): 3.59 cm2, 3.59 cm2 AoV Area (VTI): 3.78 cm2, 3.78 cm2 Deceleration Powell: 1.15 m/s2 Pressure Half-Time: 713.94 ms Peak Velocity(Antegrade Flow): 0.86 m/s Peak Gradient(Antegrade Flow): 2.94 mm[Hg] Mean Velocity(Antegrade Flow): 0.59 m/s Mean Gradient(Antegrade Flow): 1.55 mm[Hg] Velocity Time Integral: 19.70 cm Tricuspid Valve Peak Velocity (Regurgitant Flow): 3.03 m/s, 2.73 m/s, 2.99 m/s Pulmonic Valve Peak Velocity: 0.68 m/s Peak Gradient: 1.97 mm[Hg], 1.75 mm[Hg] Right Atrium Right Atrium Systolic Pressure: 52.64 ml, 52.64 ml Dictated by: Bruce Bah M.D. on 03/14/2023 at 17:27 Approved by: Bruce Bah M.D. on 03/14/2023 at 17:32
[2023-03-13 18:15] LABS: Bilirubin Urine NEGATIVE (NEGATIVE); Blood Urine SMALL (NEGATIVE); Clarity Urine CLEAR (CLEAR); Color Urine LT. YELLOW (YELLOW); Glucose Urine UA NEGATIVE (NEGATIVE); Ketones Urine NEGATIVE (NEGATIVE); Leukocyte Esterase Urine NEGATIVE (NEGATIVE); Nitrite Urine NEGATIVE (NEGATIVE); Protein Urine NEGATIVE (NEG/TRACE); Urobilinogen Urine 0.2 EU/dL (0.2-1.0); pH Urine 5.5 (5.0-9.0)
[2023-03-13 18:17] LABS: Urine Microscopic Indicated YES
[2023-03-13 18:18] LABS: Bacteria Urine NONE SEEN #/HPF (NONE SEEN); Cast Seen? NONE SEEN #/LPF (NONE SEEN); Crystals Seen? None Seen #/HPF (None Seen); Mucus Urine NONE SEEN (NONE SEEN); RBC Urine 0-2 #/HPF (0-2); Squamous Epithelial Cell Urine NONE SEEN #/LPF (NONE/RARE); Urine Culture Indicated NO; WBC Urine NONE SEEN #/HPF (NONE SEEN)
[2023-03-13] MEDS: ASPIRIN 325 MG TABLET PO (21:18)
[2023-03-13] MEDS: CIPROFLOXACIN HCL 500 MG TABLET PO (21:18)
[2023-03-13] MEDS: METOPROLOL TARTRATE 50 MG TABLET PO (21:18)
[2023-03-14] VITALS (8 sets, daily range): BP systolic 147–194; BP diastolic 78–90; PULSE 52–94; RESP 16; TEMP 36.4; O2SAT 95
[2023-03-14 04:56] LABS: Basophils Percent Auto 0.5 % (0.2-2.0); Eosinophils Absolute Auto 0.3 10^3/uL (0.0-0.7); Eosinophils Percent Auto 5.1 % (0.9-7.0); Hematocrit 36.6 % (42.0-54.0); Hemoglobin 12.2 g/dL (14.0-18.0); Immature Granulocytes Abs Auto 0.02 10^3/uL (0.00-0.03); Immature Granulocytes Pct Auto 0.4 % (0.0-0.5); Lymphocytes Absolute Auto 1.8 10^3/uL (1.2-3.8); Lymphocytes Percent Auto 33.3 % (20.5-60.0); Mean Corpuscular HGB Conc 33.3 g/dL (29.9-35.2); Mean Corpuscular Volume 93.1 fL (80.0-94.0); Mean Platelet Volume 10.1 fL (9.5-13.5); Monocytes Absolute Auto 0.5 10^3/uL (0.3-0.8); Neutrophils Absolute Auto 2.8 10^3/uL (1.4-6.5); Neutrophils Percent Auto 51.7 % (43.0-75.0); Platelet Count 242 10^3/uL (150-450); Red Blood Count 3.93 10^6/uL (4.70-6.10); Red Cell Distribution Width 13.2 % (11.0-15.0); White Blood Count 5.5 10^3/uL (4.0-11.0)
[2023-03-14 05:39] LABS: BUN Creatinine Ratio 18.6; Calcium 8.3 mg/dL (8.5-10.1); Carbon Dioxide 23.9 mmol/L (21.0-32.0); Chloride 108 mmol/L (98-107); Estimated GFR (African America >60 (>=60); Estimated GFR (Non-African Ame >60 (>=60); Glucose 94 mg/dL (74-106); Potassium 4.9 mmol/L (3.5-5.1); Sodium 142 mmol/L (136-145); Troponin I High Sensitivity 15.8 pg/mL (4.0-76.1)
[2023-03-14] MEDS: METOPROLOL TARTRATE 50 MG TABLET 100 MG PO (08:12)
[2023-03-14] MEDS: CALCIUM CARBONATE 600 MG TABLET PO (08:12)
[2023-03-14] MEDS: MESALAMINE 800 MG TABLET.DR PO (08:13)
[2023-03-14] MEDS: MAGNESIUM OXIDE 400 MG TABLET PO (08:13)
[2023-03-14] MEDS: ASPIRIN 325 MG TABLET PO (08:13)
[2023-03-14] MEDS: CIPROFLOXACIN HCL 500 MG TABLET PO (08:13)
[2023-03-14] MEDS: LISINOPRIL 5 MG TABLET 10 MG PO (08:13)
--- NOTE | 2023-03-14 09:28 | PM.HP ---
H&P: HPI History of Present Illness Chief complaint: chest pain on exertion,Hypokalemia,Hypomagnesemia Narrative: Accelerating angina with chest pain with activity. Less activity causing the chest pain. Patient presented to the emergency room. Observed overnight. Case discussed with cardiology in ER [facility] Medical History (Updated 03/14/23 @ 11:28 by MATTIE AVALOS) Surgical History (Updated 03/13/23 @ 20:01 by Bita Cyr, RN) Family History (Updated 03/13/23 @ 20:02 by Bita Cyr, TEJA) Father Family history of COPD (chronic obstructive pulmonary disease) Family history of diabetes mellitus Family history of myocardial infarction Brother Family history of cancer Mother Family history of diabetes mellitus Other Family history of hypertension Social History Within the past year, how often did you have a drink containing alcohol: 2-3 times a week Within the past year, how many standard drinks containing alcohol did you have on a typical day: 1 or 2 Within the past year, how often did you have six or more drinks on one occasion: never Total score: 0 Score interpretation: A score less than 4 is consistent with normal alcohol consumption. 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 Little interest or pleasure in doing things: not at all Feeling down, depressed, or hopeless: not at all Feel stressed/tense/nervous/anxious/difficulty sleeping: not at all Do you think of yourself as: straight/heterosexual Gender Identity: male Meds Home Medications and Allergies Home Medications Medication Instructions Recorded Confirmed Type lisinopril 5 mg tablet 10 mg PO BID 02/25/23 03/13/23 History mesalamine 400 mg capsule (with 800 mg PO BID 02/25/23 03/13/23 History delayed release tablets inside) lorazepam 1 mg tablet (Ativan) 1 mg PO Q12H PRN anxiety 03/13/23 03/13/23 History aspirin 325 mg tablet 325 mg PO DAILY #30 tabs 03/14/23 Rx desvenlafaxine succinate 50 mg 50 mg PO DAILY 03/14/23 03/14/23 History tablet,extended release 24 hr isosorbide mononitrate 30 mg 30 mg PO QAM #30 tabs 03/14/23 Rx tablet,extended release 24 hr metoprolol tartrate 50 mg tablet 100 mg PO BID #120 tabs 03/14/23 Rx Allergies Allergy/AdvReac Type Severity Reaction Status Date / Time Fish Containing Products AdvReac Severe Abdominal Verified 03/13/23 14:40 Pain Exam Constitutional Vital Signs, click to edit/add: Last Vital Signs Temp 97.6 F 03/14/23 05:05 Pulse 69 03/14/23 08:01 Resp 16 03/14/23 05:05 BP 194/90 H 03/14/23 08:13 Pulse Ox 95 03/14/23 05:05 O2 Del Method Room Air 03/14/23 05:05 Documenting provider has reviewed patient's vital signs: yes Common normals: no apparent distress, average body habitus, oriented x3, no limitations, healthy appearing, alert and well nourished General appearance: cooperative and well kempt Orientation/consciousness: Yes awake, Yes oriented to person, Yes oriented to place and Yes oriented to time [facility] Common normals: normocephalic Neck & C-Spine Common normals: full ROM General: no JVD (no JVD) Carotids: no bruit Chest Common normals: inspection of chest normal and palpation of chest normal Respiratory Common normals: normal respiratory effort, no use of accessory muscles and clear to auscultation bilaterally Auscultation: clear to auscultation bilaterally Cardio Common normals: no JVD, regular rate, regular rhythm, S1 normal heart sound, S2 normal heart sound, no gallops, no clicks, no murmurs, no rub and peripheral pulses 2+ throughout Palpation: normal PMI Rate: regular rate Rhythm: regular rhythm Heart sounds: S1 normal and S2 normal Bruits: no carotid bruits Peripheral pulses: radial pulses present, posterior tibial pulses present and dorsalis pedis pulses present GI Common normals: Normal to inspection, nondistended, normoactive bowel sounds present Extremity Common normals: normal to inspection, full ROM and normal capillary refill Other: No Edema noted Neuro Common normals: oriented x3, CN's II-XII intact bilaterally, moves all extremities and gait normal Sensorium/orientation: awake, alert, oriented to person, oriented to place and oriented to time Psych Common normals: mental status grossly normal, thought process normal, cooperative, affect normal, speech normal and activity/motor behavior normal Memory/cognition: memory grossly intact Insight: insight good Judgement: judgment good Results Labs Labs: Short CBC 03/13/23 03/14/23 Range/Units 14:58 04:15 WBC 5.6 5.5 (4.0-11.0) 10^3/uL Hgb 12.5 L 12.2 L (14.0-18.0) g/dL Hct 36.2 L 36.6 L (42.0-54.0) % Plt Count 241 242 (150-450) 10^3/uL BMP 03/13/23 03/14/23 14:58 04:15 Sodium 141 142 Potassium 4.6 4.9 Chloride 107 108 H Carbon Dioxide 25.3 23.9 BUN 21.0 H 19.0 H Creatinine 1.12 1.02 Glucose 102 94 Calcium 8.0 L 8.3 L Liver Function 03/13/23 Range/Units 14:58 Total Bilirubin 0.4 (0.2-1.0) mg/dL AST 20 (15-37) U/L ALT 26 (16-63) U/L Alkaline Phosphatase 58 (46-116) U/L Albumin 3.2 L (3.4-5.0) g/dL Urine 03/13/23 Range/Units 14:50 Urine Color Lt. yellow (YELLOW) Urine Clarity Clear (CLEAR) Urine pH 5.5 (5.0-9.0) Ur Specific [place] 1.010 (1.005-1.025) Urine Protein Negative (NEG/TRACE) mg/dL Urine Glucose (UA) Negative (NEGATIVE) mg/dL Assessment and Plan Assessment and Plan (1) Unstable angina: (2) Uncontrolled hypertension: Plan Unstable angina in a patient with accelerated hypertension-blood pressure medications were adjusted. Blood pressure is better this morning. Check echocardiogram, consult to cardiology, plan based on cardiology's impressions. Possible discharge to home versus transfer for heart cath. Either way to be discharged today
--- NOTE | 2023-03-14 09:38 | CM.NOTE ---
Rounds made with Dr. Godwin. Await Echo results to determine plan of care. Mr. Riddle verbalizes understanding.
--- NOTE | 2023-03-14 11:11 | P.CN_ITS ---
Consult Note: HPI Data of Consult Patient: new to practice Consult date: 03/14/23 Requesting Physician: Rodriguez Godwin MD Primary Care Provider: Non-Staff Physician, Family Provider: Rodriguez Godwin MD Consult Narrative Reason for consult: Chest pain with exertion Narrative: [facility] 72 yo male presented to ED for mid sternal chest pain while on daily bike ride of 10 miles. Noted Mid sternal sharp chest pain without radiation, nausea, diaphoresis; that occurred while riding bike and resolved with rest and reoccurred with exertion again. Therefore, he call EMS and was noted to have SBP 230 at that time. States that typically he manages his own health care, and just obtained a PCP 3 days ago. Currently denied chest pain, shortness of breath, orthopnea, palpitations, lightheadedness or dizziness. States that mid February he was exercising and lifting weights- hit my knee hard and had a vagal response- was evaluated in ED for near syncope and bradycardia. PMH: HTN and Crohns PSH- no pertinent cardiac surgery or procedures FMH: no early [place] or sudden . Mother- DM; Father- CAD passed age mid 80 Social: Former smoker quit 14 years ago, smoked 1-2 ppd x 25-30 years; Current social alcohol. Denied illicit drug use. cc:: CC: Rodriguez Godwin MD Review of Systems ROS Status of ROS 10 or more systems reviewed and unremarkable except as noted in history and below [facility] Medical History (Updated 03/14/23 @ 11:28 by DIANA JAY) Surgical History (Updated 03/13/23 @ 20:01 by Bita Cyr RN) Family History (Updated 03/13/23 @ 20:02 by Bita Cyr RN) Father Family history of COPD (chronic obstructive pulmonary disease) Family history of diabetes mellitus Family history of myocardial infarction Brother Family history of cancer Mother Family history of diabetes mellitus Other Family history of hypertension Social History Within the past year, how often did you have a drink containing alcohol: 2-3 times a week Within the past year, how many standard drinks containing alcohol did you have on a typical day: 1 or 2 Within the past year, how often did you have six or more drinks on one occasion: never Total score: 0 Score interpretation: A score less than 4 is consistent with normal alcohol consumption. 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 Little interest or pleasure in doing things: not at all Feeling down, depressed, or hopeless: not at all Feel stressed/tense/nervous/anxious/difficulty sleeping: not at all Do you think of yourself as: straight/heterosexual Gender Identity: male Meds Home Medications and Allergies Home Medications Medication Instructions Recorded Confirmed Type lisinopril 5 mg tablet 10 mg PO BID 02/25/23 03/13/23 History mesalamine 400 mg capsule (with 800 mg PO BID 02/25/23 03/13/23 History delayed release tablets inside) lorazepam 1 mg tablet (Ativan) 1 mg PO Q12H PRN anxiety 03/13/23 03/13/23 History aspirin 325 mg tablet 325 mg PO DAILY #30 tabs 03/14/23 Rx desvenlafaxine succinate 50 mg 50 mg PO DAILY 03/14/23 03/14/23 History tablet,extended release 24 hr isosorbide mononitrate 30 mg 30 mg PO QAM #30 tabs 03/14/23 Rx tablet,extended release 24 hr metoprolol tartrate 50 mg tablet 100 mg PO BID #120 tabs 03/14/23 Rx Allergies Allergy/AdvReac Type Severity Reaction Status Date / Time Fish Containing Products AdvReac Severe Abdominal Verified 03/13/23 14:40 Pain Exam Constitutional Vital Signs, click to edit/add: Last Vital Signs Temp 97.6 F 03/14/23 05:05 Pulse 55 L 03/14/23 09:57 Resp 16 03/14/23 05:05 BP 194/90 H 03/14/23 08:13 Pulse Ox 95 03/14/23 05:05 O2 Del Method Room Air 03/14/23 05:05 Documenting provider has reviewed patient's vital signs: yes Common normals: no apparent distress, average body habitus, oriented x3, no limitations, healthy appearing, alert and well nourished General appearance: cooperative and well kempt Orientation/consciousness: Yes awake, Yes oriented to person, Yes oriented to place and Yes oriented to time HENMT Common normals: normocephalic Neck & C-Spine Common normals: full ROM General: no JVD (no JVD) Carotids: no bruit Chest Common normals: inspection of chest normal and palpation of chest normal Respiratory Common normals: normal respiratory effort, no use of accessory muscles and clear to auscultation bilaterally Auscultation: clear to auscultation bilaterally Cardio Common normals: no JVD, regular rate, regular rhythm, S1 normal heart sound, S2 normal heart sound, no gallops, no clicks, no murmurs, no rub and peripheral pulses 2+ throughout Palpation: normal PMI Rate: regular rate Rhythm: regular rhythm Heart sounds: S1 normal and S2 normal Bruits: no carotid bruits Peripheral pulses: radial pulses present, posterior tibial pulses present and do rsalis pedis pulses present GI Common normals: Normal to inspection, nondistended, normoactive bowel sounds present Extremity Common normals: normal to inspection, full ROM and normal capillary refill Other: No Edema noted Neuro Common normals: oriented x3, CN's II-XII intact bilaterally, moves all extremities and gait normal Sensorium/orientation: awake, alert, oriented to person, oriented to place and oriented to time Psych Common normals: mental status grossly normal, thought process normal, cooperative, affect normal, speech normal and activity/motor behavior normal Memory/cognition: memory grossly intact Insight: insight good Judgement: judgment good Results Labs Labs: Short CBC 03/13/23 03/14/23 Range/Units 14:58 04:15 WBC 5.6 5.5 (4.0-11.0) 10^3/uL Hgb 12.5 L 12.2 L (14.0-18.0) g/dL Hct 36.2 L 36.6 L (42.0-54.0) % Plt Count 241 242 (150-450) 10^3/uL BMP 03/13/23 03/14/23 14:58 04:15 Sodium 141 142 Potassium 4.6 4.9 Chloride 107 108 H Carbon Dioxide 25.3 23.9 BUN 21.0 H 19.0 H Creatinine 1.12 1.02 Glucose 102 94 Calcium 8.0 L 8.3 L Liver Function 03/13/23 Range/Units 14:58 Total Bilirubin 0.4 (0.2-1.0) mg/dL AST 20 (15-37) U/L ALT 26 (16-63) U/L Alkaline Phosphatase 58 (46-116) U/L Albumin 3.2 L (3.4-5.0) g/dL Urine 03/13/23 Range/Units 14:50 Urine Color Lt. yellow (YELLOW) Urine Clarity Clear (CLEAR) Urine pH 5.5 (5.0-9.0) Ur Specific [place] 1.010 (1.005-1.025) Urine Protein Negative (NEG/TRACE) mg/dL Urine Glucose (UA) Negative (NEGATIVE) mg/dL ECG Attestation: ?I have reviewed the pertinent ECG results. Prior ECG tracings: available for review Interpretation: 03/13/23 EKG Interpretive Statements 1100 Sinus rhythm 9110 ? normal ECG? Compared to ECG 02/25/2023 13:08:51 No significant changes Electronically Signed On 03-13-2023 18:30:43 EDT by CHRISTOPHER BISHOP Imaging Echocardiogram: Attestation: I have reviewed the pertinent imaging results. My impression: Reviewed Echocardiogram with Analytics Director and states normal EF- 60%, no wall motion abnormalities, RV normal size and systolic function, B/L atria enlarged, Mild to mod MR- no acute valvular abnormalities noted- awaiting final report Assessment and Plan Assessment and Plan (1) Unstable angina: Assessment and Plan: Troponin levels normal, EKG without acute ST-T wave changes and pt is currently chest pain free. Most likely chest pain was r/t uncontrolled HTN. Will review Echocardiogram with interventionalist, pt history, and symptoms Plan for stress test vs cardiac cath outpt. Pt may DC home and f/U as outpt- will d/w Dr Moukarbel Continue ASA, Start imdur 30 mg daily, increase lisinopril to 20 mg daily and decrease metoprolol to 50 mg bid from 100 mg bid in light of noted bradycardia and pre syncope previously. Ordered lipid level to assess potential need for a statin (2) Uncontrolled hypertension: Assessment and Plan: b/p remains uncontrolled- increase lisinopril to 20 mg daily- will need repeat BMP in 1 week, add imdur to regime for angina, and will decrease metoprolol to 50 mg bid from 100 mg r/t noted bradycardia. Pt agrees to obtain b/p cuff and will monitor b/p at home with goal being < 130/80- pt to call office if b/p is not within this range. (3) Chest pain on exertion: Assessment and Plan: as above (4) Neurocardiogenic pre-syncope: Assessment and Plan: Continue adequate hydration (5) Former smoker, stopped smoking many years ago: Assessment and Plan: Quit smoking about 14 years ago (6) Crohn disease: Assessment and Plan: managed by primary service Plan as above F/U outpt as scheduled Diana Jay [facility] Cardiology
[2023-03-14 11:55] LABS: Chol HDL Ratio 2.9; Cholesterol 113 mg/dL (<=200); HDL Cholesterol 39 mg/dL (40-60); Triglycerides 135 mg/dL (<=150)
--- NOTE | 2023-03-15 14:41 | CM.DCFOLLOWU ---
Person spoke with: Clark How are you feeling? Much better BP-120/80's now How is your pain? No pain Did you understand your discharge instructions? yes Do you have any questions about your discharge instructions? No Were you given any prescriptions at discharge? Yes Were you able to get your prescriptions filled? Yes Do you understand how to take your medications as ordered? Yes Do you have any questions about your follow up appointment and do you plan to keep your follow up appointment? No I have stress test on Tuesday Is there anything else that you would like to discuss? No Questions/Comments/Concerns/Other:
== END 2023-03-14 11:31 | disposition home or self-care (01) ==
LOC: ER 17:56 → MS 19:56
PROVIDERS: Nurse Practitioner; Admitting Provider Family Medicine; Emergency Provider Emergency Medicine; Family Provider Family Medicine; Visit Provider Family Medicine
DX: I20.0 Unstable angina (principal); I10 Essential (primary) hypertension; E83.42 Hypomagnesemia; E83.51 Hypocalcemia; K50.90 Crohn's disease, unspecified, without complications; Z87.891 Personal history of nicotine dependence; Z79.82 Long term (current) use of aspirin; Z79.899 Other long term (current) drug therapy
CPT/HCPCS: 36415; 71045; 73140; 80048; 80053; 80061; 81001; 81003; 83735; 83880; 84484; 85025; 85610; 93005; 93306; 94761; 96365; 96375; 99285; G0378

== ENCOUNTER 2023-03-16 19:52 | Emergency (ER) | payer MEDICARE, OTHER, SELFPAY ==
[2023-03-16] VITALS (29 sets, daily range): BP systolic 144–178; BP diastolic 63–114; PULSE 71–96; RESP 15–26; TEMP 36.6; O2SAT 95; BMI 23.1
--- NOTE | 2023-03-16 20:10 | ECG_ITS ---
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
--- NOTE | 2023-03-16 20:11 | ED.DIZZY1 ---
HPI - Dizziness General Chief Complaint: Dizziness Stated Complaint: feels faint Time Seen by Provider: 03/16/23 20:01 Source: patient Mode of arrival: walk-in Limitations: no limitations History of Present Illness HPI Narrative: This 72-year-old male is brought emergency department by his daughter for evaluation of dizziness. The patient states he was riding his bike earlier and after riding his bike he started to feel dizzy. The patient was recently admitted to the hospital and is scheduled for a stress test on Tuesday. He denies any chest pain or shortness of breath. He has not passed out. He states he thought he may be dehydrated because he had rode his bike approximately 15 miles so he drank a lot of fluid and had something to eat but the dizziness did not resolve. He denies any headache or neck pain. He has no focal neurologic symptoms. He denies any abdominal pain nausea or vomiting. He has chronic diarrhea due to Crohn's disease. When he was admitted to this hospital he was prescribed Imdur and Lopressor 100 mg twice a day. He states he took the Lopressor yesterday and he did no energy throughout the entire day. He states he is not used to taking medications like this so he does not take her Lopressor today but took the Imdur. He states his blood pressure was in the normal range and he was not having any chest discomfort so he went for a bike ride. MD elicited complaint: Reports dizziness and lightheadedness Related Data Home Medications Medication Instructions Recorded Confirmed lisinopril 5 mg tablet 10 mg PO BID 02/25/23 03/13/23 mesalamine 400 mg capsule (with 800 mg PO BID 02/25/23 03/13/23 delayed release tablets inside) lorazepam 1 mg tablet (Ativan) 1 mg PO Q12H PRN anxiety 03/13/23 03/13/23 desvenlafaxine succinate 50 mg 50 mg PO DAILY 03/14/23 03/14/23 tablet,extended release 24 hr Previous Rx's Medication Instructions Recorded aspirin 325 mg tablet 325 mg PO DAILY #30 tabs 03/14/23 isosorbide mononitrate 30 mg 30 mg PO QAM #30 tabs 03/14/23 tablet,extended release 24 hr metoprolol tartrate 50 mg tablet 100 mg PO BID #120 tabs 03/14/23 Allergies Allergy/AdvReac Type Severity Reaction Status Date / Time Fish Containing Products AdvReac Severe Abdominal Verified 03/13/23 14:40 Pain Review of Systems ROS Status of ROS 10 or more systems reviewed and unremarkable except as noted in history and below [facility] Medical History (Updated 03/16/23 @ 21:33 by Diana Jade MD) Surgical History (Updated 03/13/23 @ 20:01 by Bita Cyr, RN) Family History (Updated 03/13/23 @ 20:02 by Bita Cyr, RN) Father Family history of COPD (chronic obstructive pulmonary disease) Family history of diabetes mellitus Family history of myocardial infarction Brother Family history of cancer Mother Family history of diabetes mellitus Other Family history of hypertension Social History Within the past year, how often did you have a drink containing alcohol: 2-3 times a week Within the past year, how many standard drinks containing alcohol did you have on a typical day: 1 or 2 Within the past year, how often did you have six or more drinks on one occasion: never Total score: 0 Score interpretation: A score less than 4 is consistent with normal alcohol consumption. 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 Little interest or pleasure in doing things: not at all Feeling down, depressed, or hopeless: not at all Feel stressed/tense/nervous/anxious/difficulty sleeping: not at all Do you think of yourself as: straight/heterosexual Gender Identity: male Exam Narrative Exam Narrative: Nurses note and vital signs reviewed and patient is not hypoxic. Blood pressure is noted to be elevated at 178/90, he has a normal pulse, he is not hypoxic with pulse ox of 95 percent on room air General: The patient appears well and in no apparent distress. Patient is resting comfortably on cart. Skin: Warm, dry, no pallor noted. There is no rash noted. Head: Normocephalic, atraumatic Eye: Normal conjunctiva, no drainage, EOMI. PERRL Ears, Nose, Mouth, and Throat: oral mucosa is moist. Cardiovascular: Regular Rate and Rhythm Respiratory: Patient is in no distress, no accessory muscle use, lungs are clear to auscultation, no wheezing, rales or rhonchi Back: non-tender, no CVA tenderness bilaterally to percussion. GI: Normal bowel sounds, no tenderness to palpation, no masses appreciated. No rebound, guarding, or rigidity noted. Musculoskeletal: The patient has no evidence of calf tenderness, no pitting edema, symmetrical pulses noted bilaterally Neurological: A&O x4, normal speech, no focal deficits Psychiatric: Cooperative, anxious Constitutional Vital Signs, click to edit/add: Last Vital Signs Temp 98 F 03/16/23 19:55 Pulse 73 03/16/23 22:40 Resp 16 03/16/23 22:40 BP 144/91 H 03/16/23 22:30 Pulse Ox 95 03/16/23 19:55 O2 Del Method Room Air 03/16/23 19:55 Course Vital Signs Vital signs: Vital Signs Temperature 98 F 03/16/23 19:55 Pulse Rate 94 H 03/16/23 19:55 Respiratory Rate 18 03/16/23 19:55 Blood Pressure 178/90 H 03/16/23 19:55 Pulse Oximetry 95 03/16/23 19:55 Oxygen Delivery Method Room Air 03/16/23 19:55 Temperature 98 F 03/16/23 19:55 Pulse Rate 73 03/16/23 22:40 Respiratory Rate 16 03/16/23 22:40 Blood Pressure 144/91 H 03/16/23 22:30 Pulse Oximetry 95 03/16/23 19:55 Oxygen Delivery Method Room Air 03/16/23 19:55 MDM - Dizziness MDM Narrative Medical decision making narrative: 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 He was seen last week for chest pain and is scheduled to have a stress test next Tuesday. He denies any dizziness or syncope. He has no chest pain upon arrival. He denies any shortness of breath. He is a former but not current smoker. He was recently started on 100 mg of Lopressor twice daily and Imdur. He stated that he took the Lopressor yesterday and was so weak and tired he could not get out of bed. He opted out of taking it today but did take the Imdur. He states he was not having any chest pain and his blood pressure was controlled so he went for the bike ride. On arrival an EKG was ordered that was a normal sinus rhythm with sinus arrhythmia at 82 beats for minute and no acute changes. He requested Ativan to help with his blood pressure management stating that Ativan is typically what helps him. He was given 1 mg of IV Ativan and IV fluids. Labs are reviewed. He has a normal white count at 6.5 and normal hemoglobin of 13. Electrolytes are normal. Creatinine is minimally elevated at 1.25. Troponin is normal at 10.8. I reevaluated him and he stated that he was feeling much better. I repeated his blood pressure which had been noted to be in the 140s over 90s and 160/84 at this time. I offered to give him a lower dose of the Lopressor that he was taking for a brief period time but he does not wish to have this stating it makes him so tired. He agreed to 0.1 mg of oral clonidine. He will continue to be monitored and a repeat troponin will be ordered. The plan at this time is if the repeat troponin is normal he will be discharged home with recommendation for close follow-up with his family physician for blood pressure management. His repeat Blood pressure after the 0.1mg of clonidine is 140/90. He was re-evaluated and is feeling much better, he now admits that he had 3 glasses of wine before his 15mile bike ride and it was 85 degrees out which may have contributed to his dizziness. repeat troponin is 14. We discussed his blood pressure medications and he is not interested in taking the beta florin that was prescribed due to the side effects. He is willing to take a Rx for clonidine to use as needed if his blood pressure should spike again and he agrees to follow up closely with his PCP about the medications and his stress test. Lab Data Attestation: I reviewed the patient's lab results. (labs are normal) Labs: Lab Results 03/16/23 03/16/23 03/16/23 Range/Units 20:25 20:46 22:30 WBC 6.5 (4.0-11.0) 10^3/uL RBC 4.12 L (4.70-6.10) 10^6/uL Hgb 13.0 L (14.0-18.0) g/dL Hct 37.6 L (42.0-54.0) % MCV 91.3 (80.0-94.0) fL MCH 31.6 (25.9-34.0) pg MCHC 34.6 (29.9-35.2) g/dL RDW 12.9 (11.0-15.0) % Plt Count 261 (150-450) 10^3/uL MPV 9.4 L (9.5-13.5) fL Neut % (Auto) 58.7 (43.0-75.0) % Lymph % (Auto) 28.8 (20.5-60.0) % [place] % (Auto) 8.2 (1.7-12.0) % Eos % (Auto) 3.5 (0.9-7.0) % Baso % (Auto) 0.5 (0.2-2.0) % Neut # (Auto) 3.8 (1.4-6.5) 10^3/uL Lymph # (Auto) 1.9 (1.2-3.8) 10^3/uL [place] # (Auto) 0.5 (0.3-0.8) 10^3/uL Eos # (Auto) 0.2 (0.0-0.7) 10^3/uL Baso # (Auto) 0.0 (0.0-0.1) 10^3/uL Abs Immat Gran (auto) 0.02 (0.00-0.03) 10^3/uL Imm/Tot Granulo (auto) 0.3 (0.0-0.5) % Sodium 138 (136-145) mmol/L Potassium 4.4 (3.5-5.1) mmol/L Chloride 105 (98-107) mmol/L Carbon Dioxide 24.1 (21.0-32.0) mmol/L Anion Gap 13.3 BUN 26.0 H (7.0-18.0) mg/dL Creatinine 1.25 (0.70-1.30) mg/dL Est GFR ( Amer) >60 (>=60) Est GFR (Non-Af Amer) 57 L (>=60) BUN/Creatinine Ratio 20.8 Glucose 137 H (74-106) mg/dL Lactate 1.1 (0.4-2.0) mmol/L Calcium 8.4 L (8.5-10.1) mg/dL Total Bilirubin 0.2 (0.2-1.0) mg/dL AST 23 (15-37) U/L ALT 34 (16-63) U/L Alkaline Phosphatase 65 (46-116) U/L Troponin I High Sens 10.8 14.0 (4.0-76.1) pg/mL Total Protein 6.9 (6.4-8.2) g/dL Albumin 3.6 (3.4-5.0) g/dL Globulin 3.3 g/dL Albumin/Globulin Ratio 1.1 Urine Color Lt. yellow (YELLOW) Urine Clarity Clear (CLEAR) Urine pH 5.5 (5.0-9.0) Ur Specific [place] 1.010 (1.005-1.025) Urine Protein Negative (NEG/TRACE) mg/dL Urine Glucose (UA) Negative (NEGATIVE) mg/dL Urine Ketones Negative (NEGATIVE) mg/dL Urine Occult Blood Small A (NEGATIVE) Urine Nitrite Negative (NEGATIVE) Urine Bilirubin Negative (NEGATIVE) Urine Urobilinogen 0.2 (0.2-1.0) EU/dL Ur Leukocyte Esterase Negative (NEGATIVE) Urine RBC 0-2 (0-2) #/HPF Urine WBC 0-2 A (NONE SEEN) #/HPF Ur Squamous Epith Cells Rare (NONE/RARE) #/LPF Urine Crystals None seen (None Seen) #/HPF Urine Bacteria None seen (NONE SEEN) #/HPF Urine Casts None seen (NONE SEEN) #/LPF Urine Mucus None seen (NONE SEEN) Ur Culture Indicated? No ECG Data Attestation: I personally reviewed and interpreted this ECG as follows: (Sinus rhythm with sinus arrhythmia at 82 beats for minute, normal axis, normal intervals, no acute ST segment elevation or T-wave inversion) Discharge Plan Discharge Chief Complaint: Dizziness Clinical Impression: Elevated blood pressure reading, Dizziness Time of Disposition Decision: 23:01 Condition: Good Prescriptions / Home Meds: No Action lorazepam [Ativan] 1 mg tablet 1 mg PO Q12H PRN (Reason: anxiety) desvenlafaxine succinate 50 mg tablet extended release 24 hr 50 mg PO DAILY aspirin 325 mg Tablet 325 mg PO DAILY Qty: 30 11RF metoprolol tartrate 50 mg Tablet 100 mg PO BID Qty: 120 11RF Rx Instructions: sub the 100 mg tabs? 1 po BID of the 100 mg tabs? isosorbide mononitrate 30 mg tablet extended release 24 hr 30 mg PO QAM Qty: 30 11RF lisinopril 5 mg tablet 10 mg PO BID mesalamine 400 mg capsule (with del rel tablets) 800 mg PO BID Instructions: Hypertension (ED), Dizziness (ED) Stand Alone Forms: Portal Instructions Referrals: Physician,Non-Staff, MD [Primary Care Provider] - 1 week
--- NOTE | 2023-03-16 20:40 | PC.NURSE ---
patient states he started to feel dizzy earlier in the day, tried to drink more water and ate some toast. states he thought that would help but he felt no improvement. states dizziness gets worse with movement. was recently seen at this hospital for chest pain and has stress test scheduled for tuesday. denies nausea or vomiting. denies chest pain or shortness of breath.
[2023-03-16] MEDS: 0.9 % SODIUM CHLORIDE 1,000 ML 1000 ML IV (20:42)
[2023-03-16 20:43] LABS: Basophils Percent Auto 0.5 % (0.2-2.0); Eosinophils Absolute Auto 0.2 10^3/uL (0.0-0.7); Eosinophils Percent Auto 3.5 % (0.9-7.0); Hematocrit 37.6 % (42.0-54.0); Immature Granulocytes Abs Auto 0.02 10^3/uL (0.00-0.03); Immature Granulocytes Pct Auto 0.3 % (0.0-0.5); Lymphocytes Absolute Auto 1.9 10^3/uL (1.2-3.8); Lymphocytes Percent Auto 28.8 % (20.5-60.0); Mean Corpuscular HGB Conc 34.6 g/dL (29.9-35.2); Mean Corpuscular Hemoglobin 31.6 pg (25.9-34.0); Mean Corpuscular Volume 91.3 fL (80.0-94.0); Mean Platelet Volume 9.4 fL (9.5-13.5); Monocytes Absolute Auto 0.5 10^3/uL (0.3-0.8); Monocytes Percent Auto 8.2 % (1.7-12.0); Neutrophils Absolute Auto 3.8 10^3/uL (1.4-6.5); Neutrophils Percent Auto 58.7 % (43.0-75.0); Platelet Count 261 10^3/uL (150-450); Red Blood Count 4.12 10^6/uL (4.70-6.10); Red Cell Distribution Width 12.9 % (11.0-15.0); White Blood Count 6.5 10^3/uL (4.0-11.0)
[2023-03-16] MEDS: MECLIZINE HCL 12.5 MG TABLET 25 MG PO (20:43)
[2023-03-16] MEDS: LORAZEPAM 2 MG/ML 1 ML VIAL 1 MG IV (21:01)
[2023-03-16 21:02] LABS: Alanine Aminotransferase 34 U/L (16-63); Albumin Globulin Ratio 1.1; Albumin Level 3.6 g/dL (3.4-5.0); Alkaline Phosphatase 65 U/L (46-116); Anion Gap 13.3; Aspartate Amino Transferase 23 U/L (15-37); BUN Creatinine Ratio 20.8; Bilirubin Total 0.2 mg/dL (0.2-1.0); Calcium 8.4 mg/dL (8.5-10.1); Carbon Dioxide 24.1 mmol/L (21.0-32.0); Chloride 105 mmol/L (98-107); Estimated GFR (African America >60 (>=60); Estimated GFR (Non-African Ame 57 (>=60); Globulin 3.3 g/dL; Glucose 137 mg/dL (74-106); Potassium 4.4 mmol/L (3.5-5.1); Total Protein 6.9 g/dL (6.4-8.2)
[2023-03-16 21:04] LABS: Lactate/Lactic Acid 1.1 mmol/L (0.4-2.0); Troponin I High Sensitivity 10.8 pg/mL (4.0-76.1)
[2023-03-16 21:06] LABS: Bilirubin Urine NEGATIVE (NEGATIVE); Blood Urine SMALL (NEGATIVE); Clarity Urine CLEAR (CLEAR); Color Urine LT. YELLOW (YELLOW); Glucose Urine UA NEGATIVE (NEGATIVE); Ketones Urine NEGATIVE (NEGATIVE); Leukocyte Esterase Urine NEGATIVE (NEGATIVE); Nitrite Urine NEGATIVE (NEGATIVE); Protein Urine NEGATIVE (NEG/TRACE); Urobilinogen Urine 0.2 EU/dL (0.2-1.0); pH Urine 5.5 (5.0-9.0)
[2023-03-16 21:07] LABS: Sodium 138 mmol/L (136-145)
[2023-03-16 21:21] LABS: Bacteria Urine NONE SEEN #/HPF (NONE SEEN); Mucus Urine NONE SEEN (NONE SEEN); RBC Urine 0-2 #/HPF (0-2); Squamous Epithelial Cell Urine RARE #/LPF (NONE/RARE); WBC Urine 0-2 #/HPF (NONE SEEN)
[2023-03-16 21:22] LABS: Crystals Seen? None Seen #/HPF (None Seen)
[2023-03-16 21:23] LABS: Cast Seen? NONE SEEN #/LPF (NONE SEEN); Urine Culture Indicated NO
[2023-03-16] MEDS: CLONIDINE HCL 0.1 MG TABLET PO (21:42)
[2023-03-16] MEDS: 0.9 % SODIUM CHLORIDE 1,000 ML 125 ML IV (21:45)
== END 2023-03-16 23:20 | disposition home or self-care (01) ==
PROVIDERS: Emergency Provider Emergency Medicine; Family Provider Family Medicine
DX: R42 Dizziness and giddiness (principal); I10 Essential (primary) hypertension; K50.90 Crohn's disease, unspecified, without complications; Z79.899 Other long term (current) drug therapy; Z87.891 Personal history of nicotine dependence
CPT/HCPCS: 36415; 80053; 81001; 83605; 84484; 85025; 93005; 96361; 96374; 99285

== ENCOUNTER 2023-03-31 13:39 | Outpatient (OUT) | payer MEDICARE, SELFPAY ==
[2023-03-31 14:49] LABS: BUN Creatinine Ratio 15.8; Calcium 8.9 mg/dL (8.5-10.1); Carbon Dioxide 22.8 mmol/L (21.0-32.0); Chloride 108 mmol/L (98-107); Estimated GFR (African America >60 (>=60); Estimated GFR (Non-African Ame >60 (>=60); Glucose 98 mg/dL (74-106); Potassium 4.8 mmol/L (3.5-5.1); Sodium 140 mmol/L (136-145)
== END 2023-03-31 13:40 | disposition home or self-care (01) ==
LOC: LAB 13:40
PROVIDERS: Family Provider Family Medicine; Visit Provider Nurse Practitioner
DX: I10 Essential (primary) hypertension (principal)
CPT/HCPCS: 36415; 80048

== ENCOUNTER 2023-09-02 15:51 | Observation (INO) | payer MEDICARE, SELFPAY ==
[2023-09-02 15:53] VITALS: BP 162/92; PULSE 98; RESP 20; TEMP 36.5; O2SAT 97; BMI 23.8
--- NOTE | 2023-09-02 16:07 | ED_ITS ---
HPI - General Adult General Chief complaint: Abdominal Pain Stated complaint: poss bowel obstruction Time Seen by Provider: 09/02/23 15:59 Source: patient Mode of arrival: walk-in Limitations: no limitations History of Present Illness HPI narrative: Patient is a 72-year-old male who is presenting to the Emergency Room with chief complaint of a few hours of abdominal pain and discomfort. Patient has a history of Crohn's disease, patient had 2 surgeries of bowel obstruction/resections. Patient had a total of 3 surgeries to his abdomen. Patient has been admitted to the hospital several times in the past for observation where he receives IV fluids, steroids, and typically is discharged in the next one or 2 days. 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 Patient wants to make sure that things Did not progress and get worse so that he would need additional surgery and/or miss work next week. Patient has no fever or chills. Patient had one episode of nausea and vomiting earlier today ?1. Patient states that typically IV fluids, IV steroids, and bowel rest will help improve any symptoms that he has. Patient feels today like he has the past with previous obstructions. Patient has no chest pain or shortness of breath. Patient has Discussed some of his recent medical history the past year or 2 including syncopal episodes, ventricular tachycardia, low magnesium levels, and other medical issues in the past year or 2. Patient looks well, physically fit. Patient's sister is at bedside. Patient denies any Urinary frequency or urgency or burning. Patient states he has had a soft stool bowel movement earlier today, And typically patient states that he does have some residual stool and gas that comes out in previous partial obstructions or obstructions. Patient is concerned about small bowel obstruction, so he came into the Emergency Room for evaluation. . All systems are negative except as noted/marked. All systems reviewed and otherwise negative. . Nurses note and vital signs reviewed and patient is not hypoxic. General: The patient appears well and in no apparent distress. Patient is resting comfortably on cart. Patient is not toxic, lethargic, or listless Skin: Warm, dry, no pallor noted. There is no rash noted. No petechiae, purpura. Head: Normocephalic, atraumatic Eye: Normal conjunctiva, no drainage, EOMI. PERRL Ears, Nose, Mouth, and Throat: oral mucosa is moist. Nares patent. Mouth without vesicles. Cardiovascular: Regular Rate and Rhythm, no murmur, gallop, rub Respiratory: Patient is in no distress, no accessory muscle use, lungs are clear to auscultation, no wheezing, rales or rhonchi Back: non-tender, no CVA tenderness bilaterally to percussion. No CT LS midline pain GI: soft, Mild to moderate Right lower quadrant tenderness palpation, hypoactive bowel sounds ?4, no peritoneal signs, no flank pain bilateral, no CVA tenderness. Patient has no midepigastric tenderness to palpation, no masses appreciated. No rebound, guarding, or rigidity noted. No flank pain bilateral, No distention. No distention. No rash. Musculoskeletal: Patient has full range of motion of all of the extremities, no motor, sensory, or focal neurological deficits Neurological: A&O x3, normal speech Psychiatric: Cooperative Related Data Home Medications Medication Instructions Recorded Confirmed lisinopril 5 mg tablet 10 mg PO BID 02/25/23 09/02/23 mesalamine 400 mg capsule (with 800 mg PO BID 02/25/23 09/02/23 delayed release tablets inside) desvenlafaxine succinate 50 mg 50 mg PO DAILY 03/14/23 09/02/23 tablet,extended release 24 hr ondansetron 8 mg disintegrating 8 mg PO Q8H PRN nausea and vomiting 09/02/23 09/02/23 tablet Previous Rx's Medication Instructions Recorded aspirin 325 mg tablet 325 mg PO DAILY #30 tabs 03/14/23 isosorbide mononitrate 30 mg 30 mg PO QAM #30 tabs 03/14/23 tablet,extended release 24 hr Allergies Allergy/AdvReac Type Severity Reaction Status Date / Time Fish Containing Products AdvReac Severe Abdominal Verified 03/13/23 14:40 Pain PFSH PFSH Medical History (Updated 09/02/23 @ 18:28 by David Michel MD) Hypertension ?I10 - Essential (primary) hypertension (ICD-10) Crohn disease ?K50.90 - Crohn's disease, unspecified, without complications (ICD-10) Surgical History (Updated 03/13/23 @ 20:01 by Bita Cyr RN) History of bowel resection ?Z90.49 - Acquired absence of other specified parts of digestive tract (ICD- 10) Family History (Updated 03/13/23 @ 20:02 by Bita Cyr RN) Father Family history of COPD (chronic obstructive pulmonary disease) Family history of diabetes mellitus Family history of myocardial infarction Brother Family history of cancer Mother Family history of diabetes mellitus Other Family history of hypertension Social History Within the past year, how often did you have a drink containing alcohol: 2-3 times a week Within the past year, how many standard drinks containing alcohol did you have on a typical day: 1 or 2 Within the past year, how often did you have six or more drinks on one occasion: never Total score: 0 Score interpretation: A score less than 4 is consistent with normal alcohol consumption. 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 Little interest or pleasure in doing things: not at all Feeling down, depressed, or hopeless: not at all Feel stressed/tense/nervous/anxious/difficulty sleeping: not at all Do you think of yourself as: straight/heterosexual Gender Identity: male Exam Constitutional Vital Signs, click to edit/add: Last Vital Signs Temp 98.7 F 09/02/23 17:31 Pulse 80 09/02/23 17:31 Resp 18 09/02/23 17:31 BP 170/82 H 09/02/23 17:31 Pulse Ox 95 09/02/23 17:31 O2 Del Method Room Air 09/02/23 17:31 Course Vital Signs Vital signs: Vital Signs Temperature 97.7 F 09/02/23 15:53 Pulse Rate 98 H 09/02/23 15:53 Respiratory Rate 20 09/02/23 15:53 Blood Pressure 162/92 H 09/02/23 15:53 Pulse Oximetry 97 09/02/23 15:53 Temperature 98.7 F 09/02/23 17:31 Pulse Rate 80 09/02/23 17:31 Respiratory Rate 18 09/02/23 17:31 Blood Pressure 170/82 H 09/02/23 17:31 Pulse Oximetry 95 09/02/23 17:31 Oxygen Delivery Method Room Air 09/02/23 17:31 Medical Decision Making MDM Narrative Medical decision making narrative: EKG showed no acute abnormalities. Patient x-ray shows a few air-fluid levels, but no acute signs of obstruction. Patient was initially given 1 L off IV fluid, Dilaudid and Zofran. Nausea had improved, pain did improve his well, patient stated he had intermittent twinges. Patient was then given Toradol and Bentyl. I discussed patient's case with his PCP, Dr. Godwin after I initially perform HPI and physical exam. Dr. Godwin is a willing to admit patient for observation. Patient potassium and chloride levels were slightly elevated, feeling creatinine were elevated as well. Patient was given 1 L of IV fluid in the Emergency Room. Patient requested IV steroids. Patient be admitted for further evaluation and bowel rest/bowel relief. Lab Data Lab results reviewed: Yes I reviewed the patient's lab results Labs: Lab Results 09/02/23 09/02/23 09/02/23 Range/Units 16:05 16:10 16:15 WBC 8.1 (4.0-11.0) 10^3/uL RBC 4.04 L (4.70-6.10) 10^6/uL Hgb 12.4 L (14.0-18.0) g/dL Hct 37.6 L (42.0-54.0) % MCV 93.1 (80.0-94.0) fL MCH 30.7 (25.9-34.0) pg MCHC 33.0 (29.9-35.2) g/dL RDW 12.7 (11.0-15.0) % Plt Count 291 (150-450) 10^3/uL MPV 10.2 (9.5-13.5) fL Neut % (Auto) 62.2 (43.0-75.0) % Lymph % (Auto) 26.3 (20.5-60.0) % [place] % (Auto) 8.2 (1.7-12.0) % Eos % (Auto) 2.6 (0.9-7.0) % Baso % (Auto) 0.5 (0.2-2.0) % Neut # (Auto) 5.0 (1.4-6.5) 10^3/uL Lymph # (Auto) 2.1 (1.2-3.8) 10^3/uL [place] # (Auto) 0.7 (0.3-0.8) 10^3/uL Eos # (Auto) 0.2 (0.0-0.7) 10^3/uL Baso # (Auto) 0.0 (0.0-0.1) 10^3/uL Abs Immat Gran (auto) 0.02 (0.00-0.03) 10^3/uL Imm/Tot Granulo (auto) 0.2 (0.0-0.5) % Sodium (136-145) mmol/L Potassium (3.5-5.1) mmol/L Chloride (98-107) mmol/L Carbon Dioxide (21.0-32.0) mmol/L Anion Gap BUN (7.0-18.0) mg/dL Creatinine (0.70-1.30) mg/dL Est GFR ( Amer) (>=60) Est GFR (Non-Af Amer) (>=60) BUN/Creatinine Ratio Glucose (74-106) mg/dL Lactate 0.6 (0.4-2.0) mmol/L Calcium (8.5-10.1) mg/dL Magnesium (1.8-2.4) mg/dL Total Bilirubin (0.2-1.0) mg/dL AST (15-37) U/L ALT (16-63) U/L Alkaline Phosphatase (46-116) U/L Troponin I High Sens (4.0-76.1) pg/mL Total Protein (6.4-8.2) g/dL Albumin (3.4-5.0) g/dL Globulin g/dL Albumin/Globulin Ratio Lipase (16.0-77.0) U/L Urine Color Lt. yellow (YELLOW) Urine Clarity Clear (CLEAR) Urine pH 5.5 (5.0-9.0) Ur Specific [place] 1.020 (1.005-1.025) Urine Protein Negative (NEG/TRACE) mg/dL Urine Glucose (UA) Negative (NEGATIVE) mg/dL Urine Ketones Negative (NEGATIVE) mg/dL Urine Occult Blood Trace-i (NEGATIVE) Urine Nitrite Negative (NEGATIVE) Urine Bilirubin Negative (NEGATIVE) Urine Urobilinogen 0.2 (0.2-1.0) EU/dL Ur Leukocyte Esterase Negative (NEGATIVE) Urine RBC 2-5 A (0-2) #/HPF Urine WBC 0-2 A (NONE SEEN) #/HPF Ur Squamous Epith Cells None seen (NONE/RARE) #/LPF Urine Crystals None seen (None Seen) #/HPF Urine Bacteria None seen (NONE SEEN) #/HPF Urine Casts None seen (NONE SEEN) #/LPF Urine Mucus None seen (NONE SEEN) 09/02/23 Range/Units 16:30 WBC (4.0-11.0) 10^3/uL RBC (4.70-6.10) 10^6/uL Hgb (14.0-18.0) g/dL Hct (42.0-54.0) % MCV (80.0-94.0) fL MCH (25.9-34.0) pg MCHC (29.9-35.2) g/dL RDW (11.0-15.0) % Plt Count (150-450) 10^3/uL MPV (9.5-13.5) fL Neut % (Auto) (43.0-75.0) % Lymph % (Auto) (20.5-60.0) % [place] % (Auto) (1.7-12.0) % Eos % (Auto) (0.9-7.0) % Baso % (Auto) (0.2-2.0) % Neut # (Auto) (1.4-6.5) 10^3/uL Lymph # (Auto) (1.2-3.8) 10^3/uL [place] # (Auto) (0.3-0.8) 10^3/uL Eos # (Auto) (0.0-0.7) 10^3/uL Baso # (Auto) (0.0-0.1) 10^3/uL Abs Immat Gran (auto) (0.00-0.03) 10^3/uL Imm/Tot Granulo (auto) (0.0-0.5) % Sodium 142 (136-145) mmol/L Potassium 5.4 H (3.5-5.1) mmol/L Chloride 111 H (98-107) mmol/L Carbon Dioxide 22.7 (21.0-32.0) mmol/L Anion Gap 13.7 BUN 32.0 H (7.0-18.0) mg/dL Creatinine 1.39 H (0.70-1.30) mg/dL Est GFR ( Amer) >60 (>=60) Est GFR (Non-Af Amer) 50 L (>=60) BUN/Creatinine Ratio 23.0 Glucose 104 (74-106) mg/dL Lactate (0.4-2.0) mmol/L Calcium 8.7 (8.5-10.1) mg/dL Magnesium 1.8 (1.8-2.4) mg/dL Total Bilirubin 0.3 (0.2-1.0) mg/dL AST 18 (15-37) U/L ALT 29 (16-63) U/L Alkaline Phosphatase 68 (46-116) U/L Troponin I High Sens 9.0 (4.0-76.1) pg/mL Total Protein 6.6 (6.4-8.2) g/dL Albumin 3.2 L (3.4-5.0) g/dL Globulin 3.4 g/dL Albumin/Globulin Ratio 0.9 Lipase 24.0 (16.0-77.0) U/L Urine Color (YELLOW) Urine Clarity (CLEAR) Urine pH (5.0-9.0) Ur Specific [place] (1.005-1.025) Urine Protein (NEG/TRACE) mg/dL Urine Glucose (UA) (NEGATIVE) mg/dL Urine Ketones (NEGATIVE) mg/dL Urine Occult Blood (NEGATIVE) Urine Nitrite (NEGATIVE) Urine Bilirubin (NEGATIVE) Urine Urobilinogen (0.2-1.0) EU/dL Ur Leukocyte Esterase (NEGATIVE) Urine RBC (0-2) #/HPF Urine WBC (NONE SEEN) #/HPF Ur Squamous Epith Cells (NONE/RARE) #/LPF Urine Crystals (None Seen) #/HPF Urine Bacteria (NONE SEEN) #/HPF Urine Casts (NONE SEEN) #/LPF Urine Mucus (NONE SEEN) ECG Data Attestation: I personally reviewed and interpreted this ECG as follows: (EKG i nterpretation. Normal sinus rhythm at 77 beats a minute. Normal axis deviation. No acute ST elevation, no acute ectopy. QTC of 399. Artifact. ) Discharge Plan Discharge Chief Complaint: Abdominal Pain Clinical Impression: Nausea & vomiting, Abdominal pain, DAVID (acute kidney injury), Dehydration Patient Disposition: Admitted as Observation Time of Disposition Decision: 16:10 Condition: Fair Discharge Date/Time: 09/02/23 17:30
[2023-09-02] MEDS: ONDANSETRON PF 4 MG/2 ML VIAL IV ×2 (16:08→22:11)
[2023-09-02] MEDS: 0.9 % SODIUM CHLORIDE 1,000 ML 999 ML IV (16:08)
[2023-09-02] MEDS: HYDROMORPHONE HCL 1 MG/ML CARTRIDGE IV (16:12)
[2023-09-02 16:15] LABS: Basophils Percent Auto 0.5 % (0.2-2.0); Eosinophils Absolute Auto 0.2 10^3/uL (0.0-0.7); Eosinophils Percent Auto 2.6 % (0.9-7.0); Hematocrit 37.6 % (42.0-54.0); Hemoglobin 12.4 g/dL (14.0-18.0); Immature Granulocytes Abs Auto 0.02 10^3/uL (0.00-0.03); Immature Granulocytes Pct Auto 0.2 % (0.0-0.5); Lymphocytes Absolute Auto 2.1 10^3/uL (1.2-3.8); Lymphocytes Percent Auto 26.3 % (20.5-60.0); Mean Corpuscular Hemoglobin 30.7 pg (25.9-34.0); Mean Corpuscular Volume 93.1 fL (80.0-94.0); Mean Platelet Volume 10.2 fL (9.5-13.5); Monocytes Absolute Auto 0.7 10^3/uL (0.3-0.8); Monocytes Percent Auto 8.2 % (1.7-12.0); Neutrophils Percent Auto 62.2 % (43.0-75.0); Platelet Count 291 10^3/uL (150-450); Red Blood Count 4.04 10^6/uL (4.70-6.10); Red Cell Distribution Width 12.7 % (11.0-15.0); White Blood Count 8.1 10^3/uL (4.0-11.0)
--- NOTE | 2023-09-02 16:24 | XR_ITS ---
[facility] [id number] Patient Name: JEB TOBIAS MRN: [id number] date: 1950 Sex: M Assigned Patient Location: ER Current Patient Location: ER Accession/Order Number: [id number] Exam Date: 09/02/2023 16:34 Report Date: 09/02/2023 17:03 At the request of: SHERLEY BESS Procedure: XR acute abdomen series EXAM: XR acute abdomen series HISTORY: abd pain COMPARISON: 01/10/2023 TECHNIQUE: Abdominal X-ray, 3 views FINDINGS: Support devices: None. Bowel: Air-fluid level is noted in the large bowel loops without significant bowel dilatation to suggest obstruction. Additional findings: None. XR/XR acute abdomen series IMPRESSION: Air-fluid level is noted in the large bowel loops without significant bowel dilatation to suggest obstruction. . Electronically authenticated by: HALLIE CAIN Date: 09/02/2023 17:03
[2023-09-02 16:33] LABS: Lactate/Lactic Acid 0.6 mmol/L (0.4-2.0)
[2023-09-02 16:41] VITALS: BP 170/82; PULSE 65; RESP 18; TEMP 36.6; O2SAT 95
[2023-09-02 16:41] LABS: Bilirubin Urine NEGATIVE (NEGATIVE); Blood Urine TRACE-I (NEGATIVE); Clarity Urine CLEAR (CLEAR); Color Urine LT. YELLOW (YELLOW); Glucose Urine UA NEGATIVE (NEGATIVE); Ketones Urine NEGATIVE (NEGATIVE); Leukocyte Esterase Urine NEGATIVE (NEGATIVE); Nitrite Urine NEGATIVE (NEGATIVE); Protein Urine NEGATIVE (NEG/TRACE); Urobilinogen Urine 0.2 EU/dL (0.2-1.0); pH Urine 5.5 (5.0-9.0)
[2023-09-02] MEDS: METHYLPREDNISOLONE SOD SUCC PF 125 MG/2 ML VIAL IVP ×2 (16:42→21:40)
[2023-09-02 16:54] LABS: Alanine Aminotransferase 29 U/L (16-63); Albumin Globulin Ratio 0.9; Albumin Level 3.2 g/dL (3.4-5.0); Alkaline Phosphatase 68 U/L (46-116); Anion Gap 13.7; Aspartate Amino Transferase 18 U/L (15-37); Bilirubin Total 0.3 mg/dL (0.2-1.0); Calcium 8.7 mg/dL (8.5-10.1); Carbon Dioxide 22.7 mmol/L (21.0-32.0); Chloride 111 mmol/L (98-107); Estimated GFR (African America >60 (>=60); Estimated GFR (Non-African Ame 50 (>=60); Globulin 3.4 g/dL; Glucose 104 mg/dL (74-106); Potassium 5.4 mmol/L (3.5-5.1); Sodium 142 mmol/L (136-145); Total Protein 6.6 g/dL (6.4-8.2)
[2023-09-02 17:01] LABS: Bacteria Urine NONE SEEN #/HPF (NONE SEEN); Cast Seen? NONE SEEN #/LPF (NONE SEEN); Crystals Seen? None Seen #/HPF (None Seen); Mucus Urine NONE SEEN (NONE SEEN); Squamous Epithelial Cell Urine NONE SEEN #/LPF (NONE/RARE); WBC Urine 0-2 #/HPF (NONE SEEN)
[2023-09-02] MEDS: DICYCLOMINE HCL 20 MG/2 ML VIAL IM (17:16)
[2023-09-02] MEDS: KETOROLAC TROMETHAMINE 30 MG/ML VIAL 15 MG IVP (17:16)
[2023-09-02 17:21] LABS: Magnesium 1.8 mg/dL (1.8-2.4)
[2023-09-02 17:31] VITALS: BP 170/82; PULSE 80; RESP 18; TEMP 37.1; O2SAT 95; BMI 24.1
--- NOTE | 2023-09-02 18:25 | ECG_ITS ---
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
[2023-09-02] MEDS: PANTOPRAZOLE SODIUM 40 MG VIAL IV (18:29)
[2023-09-02] MEDS: LACTATED RINGER'S SOLUTION 1,000 ML 100 ML IV (18:29)
[2023-09-02 19:43] VITALS: BP 158/65; PULSE 60; RESP 16; TEMP 36.7; O2SAT 93
[2023-09-02] MEDS: CIPROFLOXACIN IN 5 % DEXTROSE 400 MG/200 ML PIGGYBACK 200 MG IV (20:01)
[2023-09-02] MEDS: METRONIDAZOLE/SODIUM CHLORIDE 500 MG/100 ML PREMIX 100 MG IV (20:50)
[2023-09-02] MEDS: LISINOPRIL 5 MG TABLET 10 MG PO (20:53)
[2023-09-02] MEDS: HYDROMORPHONE HCL 0.5 MG/0.5 ML SYRINGE IV (21:40)
[2023-09-03] MEDS: METRONIDAZOLE/SODIUM CHLORIDE 500 MG/100 ML PREMIX 100 MG IV ×2 (03:44→11:08)
[2023-09-03] MEDS: METHYLPREDNISOLONE SOD SUCC PF 125 MG/2 ML VIAL IVP ×3 (04:50→13:26)
[2023-09-03] MEDS: LACTATED RINGER'S SOLUTION 1,000 ML 100 ML IV (04:50)
[2023-09-03 04:53] VITALS: BP 148/74; PULSE 59; RESP 16; TEMP 36.4; O2SAT 93
[2023-09-03 05:48] LABS: Basophils Percent Auto 0.1 % (0.2-2.0); Erythrocyte Sedimentation Rate 13 mm/hr (<=20); Hematocrit 37.4 % (42.0-54.0); Hemoglobin 12.1 g/dL (14.0-18.0); Immature Granulocytes Abs Auto 0.03 10^3/uL (0.00-0.03); Immature Granulocytes Pct Auto 0.3 % (0.0-0.5); Lymphocytes Absolute Auto 0.9 10^3/uL (1.2-3.8); Lymphocytes Percent Auto 8.4 % (20.5-60.0); Mean Corpuscular HGB Conc 32.4 g/dL (29.9-35.2); Mean Corpuscular Hemoglobin 30.3 pg (25.9-34.0); Mean Corpuscular Volume 93.5 fL (80.0-94.0); Mean Platelet Volume 10.1 fL (9.5-13.5); Monocytes Absolute Auto 0.1 10^3/uL (0.3-0.8); Monocytes Percent Auto 0.8 % (1.7-12.0); Neutrophils Absolute Auto 9.2 10^3/uL (1.4-6.5); Neutrophils Percent Auto 90.4 % (43.0-75.0); Platelet Count 251 10^3/uL (150-450); Red Cell Distribution Width 12.3 % (11.0-15.0); White Blood Count 10.1 10^3/uL (4.0-11.0)
[2023-09-03 06:07] LABS: Alanine Aminotransferase 26 U/L (16-63); Albumin Globulin Ratio 0.9; Albumin Level 2.8 g/dL (3.4-5.0); Alkaline Phosphatase 64 U/L (46-116); Anion Gap 14.7; Aspartate Amino Transferase 16 U/L (15-37); Bilirubin Total 0.3 mg/dL (0.2-1.0); Calcium 8.3 mg/dL (8.5-10.1); Carbon Dioxide 20.8 mmol/L (21.0-32.0); Chloride 108 mmol/L (98-107); Estimated GFR (African America >60 (>=60); Estimated GFR (Non-African Ame 56 (>=60); Globulin 3.2 g/dL; Glucose 157 mg/dL (74-106); Potassium 5.5 mmol/L (3.5-5.1); Sodium 138 mmol/L (136-145)
--- NOTE | 2023-09-03 09:11 | P.HP_ITS ---
H&P: HPI History of Present Illness Chief complaint: poss bowel obstruction ADB PAIN Narrative: With a history of Crohn's colitis causing bowel obstruction. Presented to the emergency room, x-ray did not confirm any a significant obstruction. Patient had a bowel movement. Some more likely a flareup of his Crohn's colitis. No bloody bowel movements. Patient was admitted for IV fluids, IV antibiotics and IV steroids. Review of Systems ROS Status of ROS 10 or more systems reviewed and unremark able except as noted in history and below PFSH [facility] Medical History (Updated 09/02/23 @ 18:28 by David Michel MD) Hypertension ?I10 - Essential (primary) hypertension (ICD-10) Crohn disease ?K50.90 - Crohn's disease, unspecified, without complications (ICD-10) Surgical History (Updated 03/13/23 @ 20:01 by Bita Cyr RN) History of bowel resection ?Z90.49 - Acquired absence of other specified parts of digestive tract (ICD- 10) Family History (Updated 03/13/23 @ 20:02 by Bita Cyr RN) Father Family history of COPD (chronic obstructive pulmonary disease) Family history of diabetes mellitus Family history of myocardial infarction Brother Family history of cancer Mother Family history of diabetes mellitus Other Family history of hypertension Social History Within the past year, how often did you have a drink containing alcohol: 2-3 times a week Within the past year, how many standard drinks containing alcohol did you have on a typical day: 1 or 2 Within the past year, how often did you have six or more drinks on one occasion: never Total score: 0 Score interpretation: A score less than 4 is consistent with normal alcohol consumption. 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 Little interest or pleasure in doing things: not at all Feeling down, depressed, or hopeless: not at all Feel stressed/tense/nervous/anxious/difficulty sleeping: not at all Do you think of yourself as: straight/heterosexual Gender Identity: male Meds Home Medications and Allergies Home Medications Medication Instructions Recorded Confirmed Type lisinopril 5 mg tablet 10 mg PO BID 02/25/23 09/02/23 History mesalamine 400 mg capsule (with 800 mg PO BID 02/25/23 09/02/23 History delayed release tablets inside) aspirin 325 mg tablet 325 mg PO DAILY #30 tabs 03/14/23 09/02/23 Rx desvenlafaxine succinate 50 mg 50 mg PO DAILY 03/14/23 09/02/23 History tablet,extended release 24 hr isosorbide mononitrate 30 mg 30 mg PO QAM #30 tabs 03/14/23 09/02/23 Rx tablet,extended release 24 hr ondansetron 8 mg disintegrating 8 mg PO Q8H PRN nausea and vomiting 09/02/23 09/02/23 History tablet ciprofloxacin HCl 500 mg tablet 500 mg PO Q12H #20 tabs 09/03/23 Rx (Cipro) metronidazole 500 mg tablet 500 mg PO Q8H #30 tabs 09/03/23 Rx prednisone 10 mg tablet 50 mg (5 x 10 mg) PO DAILY #47 tabs 09/03/23 Rx Allergies Allergy/AdvReac Type Severity Reaction Status Date / Time Fish Containing Products AdvReac Severe Abdominal Verified 03/13/23 14:40 Pain Exam Constitutional Vital Signs, click to edit/add: Last Vital Signs Temp 97.6 F 09/03/23 04:53 Pulse 59 L 09/03/23 04:53 Resp 16 09/03/23 04:53 BP 148/74 H 09/03/23 04:53 Pulse Ox 93 L 09/03/23 04:53 O2 Del Method Room Air 09/03/23 04:53 Documenting provider has reviewed patient's vital signs: yes Common normals: no apparent distress Chest Common normals: inspection of chest normal and palpation of chest normal Respiratory Common normals: normal respiratory effort and no retractions Cardio Common normals: regular rate and regular rhythm GI Common normals: Normal to inspection, nondistended, normoactive bowel sounds present and soft to palpation; tender (Mild diffuse tenderness) Results Labs Labs: Short CBC 09/02/23 09/03/23 Range/Units 16:05 05:02 WBC 8.1 10.1 (4.0-11.0) 10^3/uL Hgb 12.4 L 12.1 L (14.0-18.0) g/dL Hct 37.6 L 37.4 L (42.0-54.0) % Plt Count 291 251 (150-450) 10^3/uL BMP 09/02/23 09/03/23 16:30 05:02 Sodium 142 138 Potassium 5.4 H 5.5 H Chloride 111 H 108 H Carbon Dioxide 22.7 20.8 L BUN 32.0 H 34.0 H Creatinine 1.39 H 1.26 Glucose 104 157 H Calcium 8.7 8.3 L Liver Function 09/02/23 09/03/23 Range/Units 16:30 05:02 Total Bilirubin 0.3 0.3 (0.2-1.0) mg/dL AST 18 16 (15-37) U/L ALT 29 26 (16-63) U/L Alkaline Phosphatase 68 64 (46-116) U/L Albumin 3.2 L 2.8 L (3.4-5.0) g/dL Urine 09/02/23 Range/Units 16:15 Urine Color Lt. yellow (YELLOW) Urine Clarity Clear (CLEAR) Urine pH 5.5 (5.0-9.0) Ur Specific [place] 1.020 (1.005-1.025) Urine Protein Negative (NEG/TRACE) mg/dL Urine Glucose (UA) Negative (NEGATIVE) mg/dL Assessment and Plan Assessment and Plan (1) Dehydration: (2) DAVID (acute kidney injury): (3) Elevated blood pressure reading: (4) Crohn disease: Plan Uncontrolled hypertension secondary to abdominal pain secondary to acute exacerbation of his Crohn's colitis. Did well so far with steroids, IV fluids, IV antibiotics overnight. Repeat 1 more fluid bolus, and give 2 more doses of Solu-Medrol. If stable after that he can be discharged home in improving condition. Medications see list. Follow-up with me as needed. Iron deficiency anemia secondary to Crohn's colitis-monitor as an outpatient Hyperkalemia secondary to acute kidney injury-improved today. Will monitor as an outpatient, fluid bolus will likely resolve Acute kidney injury-creatinine 30% above baseline. Should improve with continued IV fluids Maintain patient observation status likely discharged home later today. If there is any further IV antibiotics or steroids we will change patient to inpatient status
[2023-09-03] MEDS: 0.9 % SODIUM CHLORIDE 1,000 ML 1000 ML IV (09:25)
[2023-09-03 11:28] VITALS: O2SAT 97
[2023-09-03] MEDS: CIPROFLOXACIN IN 5 % DEXTROSE 400 MG/200 ML PIGGYBACK 200 MG IV (12:11)
[2023-09-03 12:28] LABS: Adenovirus F 40/41 NOT DETECTED (NOT DETECTE); Astrovirus NOT DETECTED (NOT DETECTE); Campylobacter NOT DETECTED (NOT DETECTE); Cryptosporidium NOT DETECTED (NOT DETECTE); Cyclospora cayetanensis NOT DETECTED (NOT DETECTE); Entamoeba histolytica NOT DETECTED (NOT DETECTE); Enteroaggregative E.coli NOT DETECTED (NOT DETECTE); Enteropathogenic E.coli NOT DETECTED (NOT DETECTE); Enterotoxigenic E. coli NOT DETECTED (NOT DETECTE); Giardia lamblia NOT DETECTED (NOT DETECTE); Norovirus GI/GII NOT DETECTED (NOT DETECTE); Plesiomonas shigelloides NOT DETECTED (NOT DETECTE); Rotavirus A NOT DETECTED (NOT DETECTE); Salmonella NOT DETECTED (NOT DETECTE); Sapovirus NOT DETECTED (NOT DETECTE); Shiga-like toxin-producing E.C NOT DETECTED (NOT DETECTE); Shigella/Enteroinvasive E.coli NOT DETECTED (NOT DETECTE); Vibrio NOT DETECTED (NOT DETECTE); Vibrio cholerae NOT DETECTED (NOT DETECTE); Yersinia enterocolitica NOT DETECTED (NOT DETECTE)
--- NOTE | 2023-09-05 10:40 | CM.DCFOLLOWU ---
Person spoke with: Clark How are you feeling? Much better How is your pain? No pain Did you understand your discharge instructions? Yes Do you have any questions about your discharge instructions? No Were you given any prescriptions at discharge? Yes Were you able to get your prescriptions filled? Yes Do you understand how to take your medications as ordered? Yes Do you have any questions about your follow up appointment and do you plan to keep your follow up appointment? I'm calling to schedule my f/u appt today. Is there anything else that you would like to discuss? No Questions/Comments/Concerns/Other:
== END 2023-09-03 13:35 | disposition home or self-care (01) ==
LOC: ER 17:15 → MS 17:28
PROVIDERS: Physician Assistant; Admitting Provider Family Medicine; Emergency Provider Emergency Medicine; Family Provider Family Medicine; Visit Provider Family Medicine
DX: K50.90 Crohn's disease, unspecified, without complications (principal); N17.9 Acute kidney failure, unspecified; E86.0 Dehydration; D50.9 Iron deficiency anemia, unspecified; E87.5 Hyperkalemia; R10.9 Unspecified abdominal pain; I10 Essential (primary) hypertension; R11.2 Nausea with vomiting, unspecified; Z90.49 Acquired absence of other specified parts of digestive tract; Z87.891 Personal history of nicotine dependence; Z79.899 Other long term (current) drug therapy; Z79.82 Long term (current) use of aspirin
CPT/HCPCS: 36415; 74022; 80053; 81001; 82805; 83605; 83690; 83735; 84484; 85025; 85652; 87493; 87507; 93005; 94761; 96361; 96365; 96366; 96367; 96368; 96372; 96375; 96376; 99285; G0378; J0500; J0744; J1170; J1836; J1885; J2405; J2930

== ENCOUNTER 2023-11-01 19:36 | Emergency (ER) | payer MEDICARE, SELFPAY ==
[2023-11-01] VITALS (12 sets, daily range): BP systolic 152–200; BP diastolic 89–100; PULSE 75–87; RESP 15–26; TEMP 36.5; O2SAT 95–96; BMI 23.1
--- NOTE | 2023-11-01 19:59 | XR_ITS ---
The [address] [address] Patient Name: JEB TOBIAS MRN: [id number] date: 1950 Sex: M Assigned Patient Location: ER Current Patient Location: ER Accession/Order Number: [id number] Exam Date: 11/01/2023 20:20 Report Date: 11/01/2023 21:12 At the request of: OLAMIDE JAMES Procedure: XR acute abdomen series EXAM: ACUTE ABDOMINAL SERIES HISTORY: Abdominal pain TECHNIQUE: A single view of the chest and 4 views of the abdomen and pelvis are submitted for review. COMPARISON: None. FINDINGS: CHEST X-RAY: The lungs are adequately expanded. There is no acute infiltrate. There is no evidence for effusion. The cardiomediastinal silhouette measures within normal limits. Pulmonary vascularity is unremarkable. Osseous structures are within normal limits for age. ABDOMEN: Non obstructive bowel gas pattern. Limited evaluation for free air due to supine technique. There are abnormal calcifications in the RUQ. However, evaluation of the renal shadows is limited due to overlying bowel gas. No portal venous air. Osseous structures appear within normal limits for age. XR/XR acute abdomen series IMPRESSION: CHEST X-RAY: No plain film evidence for acute cardiopulmonary disease. ABDOMEN: 1. Nonobstructive bowel gas pattern. 2. Minimal retention of stool. 3. RUQ calcifications maybe within the gallbladder Electronically authenticated by: ILIANA GOMEZ Date: 11/01/2023 21:12
[2023-11-01] MEDS: 0.9 % SODIUM CHLORIDE 1,000 ML 999 ML IV (20:06)
[2023-11-01] MEDS: ONDANSETRON PF 4 MG/2 ML VIAL IV (20:07)
[2023-11-01] MEDS: HYDROMORPHONE HCL 1 MG/ML CARTRIDGE IVP (20:07)
--- OUTSIDE RECORDS SUMMARY | 2023-11-01 20:13 | XMS_ITS | CCD ---
Author Organization [facility] Care Team Providers Care Maintenance Person Name Role Phone DR BEHZAD CROCKER Primary Care Unavailable DANIEL ., JUNI Attending Unavailable DANIEL ., JUNI Admitting Unavailable DR ROBERT DAVENPORT V Consulting Unavailable PITER GROSSMAN Consulting Unavailable DANIEL ., JUNI Consulting Unavailable DIAB ., GRAYSON Consulting Unavailable ADITYA OATES Consulting Unavailable MD Rodriguez Godwin Primary Care Provider [phone] DO Ramiro Cortez Emergency Provider [phone] Rodriguez Godwin Primary Care Unavailable Ramiro Cortez Attending Unavailable Ramiro Cortez Admitting Unavailable MATTIE AVALOS Attending Unavailable SHIV SHIRLEY Attending Unavailable JESSICA FORRESTER Admitting Unavailable JESSICA FORRESTER Attending Unavailable JESSICA FORRESTER Referring Unavailable JESSICA FORRESTER Attending Unavailable Allergies Allergy Classification Reported Allergen(s) Allergy Type Date of Onset Reaction(s) Facility (2 sources) Fish derivative; Translations: [fish derived] Propensity to adverse reactions 03-03-20 Gastrointestinal Upset [facility] Medications Current Medications Medication Drug Class(es) Dates Sig (Normalized) Sig (Original) lisinopril 5 mg oral tablet (2 sources) Angiotensin Converting Enzyme Inhibitor Start: 03-03-2023 take 5 mg by mouth twice daily Lisinopril Active 5 MG PO Twice daily March 03, 2023 12:00am Start: 09-06-2019 End: 03-03-2023 take 10 mg by mouth twice daily Lisinopril Discontinued 10 MG PO Twice daily September 06, 2019 1:00am March 03, 2023 12:47pm LORazepam 1 mg oral tablet (1 source) Benzodiazepine Start: 03-03-2023 take 1 tablet by mouth every twelve hours Lorazepam (Ativan) 1 mg tablet Active 1 MG PO Q12H 7 3 March 03, 2023 12:00am mesalamine 400 mg delayed release oral capsule (1 source) Aminosalicylate Start: 09-06-2019 take 1 tablet by mouth four times daily Mesalamine (Delzicol) 400 mg Capsule (With Del Rel Tablets) Active 400 MG PO Four times daily September 06, 2019 1:00am Completed/Discontinued Medications Medication Drug Class(es) Dates Sig (Normalized) Sig (Original) ondansetron 8 mg disintegrating oral tablet (1 source) Serotonin-3 Receptor Antagonist Start: 09-06-2019 End: 03-03-2023 Ondansetron Discontinued 8 MG PO As Directed September 06, 2019 1:00am March 03, 2023 12:48pm Problems Active Problems Problem Classification Problem Date Documented Date Episodic/Chronic Anxiety disorders (3 sources) Anxiety; Translations: [Anxiety disorder, unspecified] Onset: 03-03-2023 03-03-2023 Chronic Calculus of urinary tract (1 source) Personal history of urinary calculi; Translations: [PERSONAL HISTORY OF URINARY CALCULI] Onset: 01-12-2023 Episodic Coronary atherosclerosis and other heart disease (6 sources) 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 without angina pectoris; Translations: [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 with other forms of angina pectoris] Onset: 03-15-2023 Chronic Essential hypertension (3 sources) Essential (primary) hypertension; Translations: [ESSENTIAL PRIMARY HYPERTENSION] Onset: 01-12-2023 Chronic Heart valve disorders (4 sources) Nonrheumatic mitral (valve) insufficiency; Translations: [Nonrheumatic aortic (valve) insufficiency] Onset: 03-21-2023 Chronic Nonspecific chest pain (1 source) Chest pain, unspecified; Translations: [Chest pain, unspecified] Onset: 03-03-2023 Episodic Other aftercare (1 source) 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; Translations: [CUSTODIAL USE OF SYSTEMIC STEROIDS] Onset: 01-12-2023 Episodic Other aftercare (1 source) 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; Translations: [OTH CUSTODIAL CURRENT DRUG THERAPY] Onset: 01-12-2023 Episodic Other and ill-defined heart disease (2 sources) Heart disease, unspecified; Translations: [Heart disease, unspecified] Onset: 03-21-2023 Chronic Other skin disorders (1 source) Disorder of the skin and subcutaneous tissue, unspecified; Translations: [DISORDER SKIN AND SUBQ TISSUE UNS] Onset: 01-12-2023 Episodic Regional enteritis and ulcerative colitis (4 sources) Crohn's disease, unspecified, without complications; Translations: [Crohn's disease] Onset: 01-10-2023 Chronic Residual codes; unclassified (1 source) Insomnia, unspecified; Translations: [INSOMNIA UNSPECIFIED] Onset: 01-12-2023 Episodic Residual codes; unclassified (1 source) Acquired absence of other specified parts of digestive tract; Translations: [ACQ ABSENCE OTH PART DIGESTV TRACT] Onset: 01-12-2023 Episodic Residual codes; unclassified (1 source) Family history of diabetes mellitus; Translations: [FAMILY HISTORY OF DIABETES MELLITUS] Onset: 01-12-2023 Episodic Screening and history of mental health and substance abuse codes (1 source) Personal history of nicotine dependence; Translations: [PERSONAL HISTORY OF NICOTINE DEPEND] Onset: 01-12-2023 Episodic Syncope (3 sources) Near syncope; Translations: [Syncope and collapse] Onset: 03-21-2023 03-03-2023 Episodic Unclassified (1 source) Ventricular tachycardia, unspecified; Translations: [Ventricular tachycardia, unspecified] Onset: 03-24-2023 Unclassified (1 source) Other ventricular tachycardia; Translations: [Other ventricular tachycardia] Onset: 03-21-2023 Past or Other Problems Problem Classification Problem Date Documented Da te Episodic/Chronic Unclassified (1 source) Ventricular tachycardia, unspecified; Translations: [Ventricular tachycardia, unspecified] Onset: 06-07-2023 Unclassified (1 source) Other ventricular tachycardia; Translations: [Other ventricular tachycardia] Onset: 03-21-2023 Results Test Name Value Interpretation Reference Range Facility Office Visiton 06-07-2023 Follow-up visit [id number] Jeb Riddle 1950 M Date Provider Department Center 06/07/2023 SHIV SAAVEDRA MISSY [facility] Family History Problem Relation Age of Onset Diabetes Mother Coronary artery disease Mother Heart attack Father Diabetes Father Coronary artery disease Father Family Status - Relation Status Age at Mother Father Level of Service:18246 ND OFFICE/OUTPATIENT [facility] MDM 60-74 MINUTES Normal [facility] Office Visiton 05-27-2023 Follow-up visit [id number] Jeb Riddle 1950 M Date Provider Department Center 05/27/2023 Rafael-JESSICA FORRESTER MISSY Nicole Family History Problem Relation Age of Onset Diabetes Mother Coronary artery disease Mother Heart attack Father Diabetes Father Coronary artery disease Father Family Status - Relation Status Age at Mother Father Level of Service:50886 ND OFFICE/OUTPATIENT ESTABLISHED MOD MDM 30-39 MIN Reason for Visit and Comments: Follow-up [700025] Coronary Artery Disease [187] [facility] HPon 04-06-2023 HP H&P reviewed. The pa alex was examined and there are no changes to the H&P. Assessment: 1- NSVT 2- Unstable angina Plan: Proceed with coronary angiography today. [facility] NURSNOTEon 04-06-2023 NURSNOTE RN educated pt on d/ c instructions. RN encouraged pt to voice any questions or concerns. Pt verbalizes no questions or concerns at this time. Pt was wheeled off of unit with all of belongings. [facility] Orders Onlyon 03-24-2023 Orders Only [id number] Jeb Riddle 1950 M Date Provider Department Center 03/24/2023 TAQUERIA MAYORGA MISSY Nicole Family History Problem Relation Age of Onset Diabetes Mother Coronary artery disease Mother Heart attack Father Diabetes Father Coronary artery disease Father Family Status - Relation Status Age at Mother Father [facility] 29on 03-21-2023 29 Addended by: Analilia AVALOS on: 03/28/2023 08:21 AM Modules accepted: Orders [facility] Office Visiton 03-21-2023 Follow-up visit [id number] Jeb Riddle 1950 M Date Provider Department Center 03/21/2023 120-MATTIE AVALOS Family History Problem Relation Age of Onset Diabetes Mother Coronary artery disease Mother Heart attack Father Diabetes Father Coronary artery disease Father Family Status - Relation Status Age at Mother Father Level of Service:37947 ND OFFICE/OUTPATIENT ESTABLISHED MOD MDM 30-39 MIN [facility] Orders Onlyon 03-15-2023 Orders Only [id number] Jeb Riddle 1950 M Date Provider Department Center 03/15/2023 MATTIE LAY MC C[facility] [address] [facility] No family history on file Normal [facility] Activated partial thrombopla stin time (aPTT) in platelet poor plasma by coagulation aOrdered By: Ramiro Cortez on 03-03-2023 aPTT Coag (PPP) [Time] 29.7 s 25.1-36.5 [facility] B-Type Natriuretic Peptideon 03-03-2023 Natriuretic peptide B (Bld) [Mass/Vol] 52.0 pg/mL Normal 5-100 [facility] Comment on above: Result Comment: PERF ORMED BY: [place] [address] PATHOLOGIST TANBARK PEELER RADHA BARRON M.D. Performed By: #### B MP, HS TROP, BNP, CBC, CK, PT, PTT #### [address] Basic Metabolic Panelon 02-13 Anion gap [Moles/Vol] 10.6 mmol/L Normal 6.0-15.0 [facility] Comment on above: Performed By: #### B MP, HS TROP, BNP, CBC, CK, PT, PTT #### [address] Calcium [Mass/Vol] 8.6 mg/dL Normal 8.6-10.3 [facility] Comment on above: Performed By: #### B MP, HS TROP, BNP, CBC, CK, PT, PTT #### [address] Chloride [Moles/Vol] 108 mmol/L High 98-107 [facility] Comment on above: Performed By: #### B MP, HS TROP, BNP, CBC, CK, PT, PTT #### [address] CO2 [Moles/Vol] 24.6 mmol/L Normal 21.0-31.0 [facility] Comment on above: Performed By: #### B MP, HS TROP, BNP, CBC, CK, PT, PTT #### [facility] [address] Creatinine [Mass/Vol] 1.19 mg/dL Normal 0.70-1.30 [facility] Comment on above: Performed By: #### B MP, HS TROP, BNP, CBC, CK, PT, PTT #### [facility] [address] Creatinine Clr Calc Pharmacy 55.29 [facility] Comment on above: Result Comment: PERF ORMED BY: [place] [address] PATHOLOGIST TANBARK PEELER RADHA BARRON M.D. Performed By: #### B MP, HS TROP, BNP, CBC, CK, PT, PTT #### [address] GFR/1.73 sq M.predicted MDRD (S/P/Bld) [Vol rate/Area] mL/min/{1.73_m2} [facility] Comment on above: Performed By: #### B MP, HS TROP, BNP, CBC, CK, PT, PTT #### [address] Glucose [Mass/Vol] 93 mg/dL Normal 70-100 [facility] Comment on above: Result Comment: [place] Glucose Reference Range is dependent on time and content of last meal. Glucose of more than 200 mg/dL in a nonstressed, ambulatory subject supports the diagnosis of Diabetes Mellitus. ADA recommended reference range Performed By: #### B MP, HS TROP, BNP, CBC, CK, PT, PTT #### [address] Potassium [Moles/Vol] 4.2 mmol/L Normal 3.5-5.1 [facility] Comment on above: Performed By: #### B MP, HS TROP, BNP, CBC, CK, PT, PTT #### [facility] [address] Sodium [Moles/Vol] 139 mmol/L Normal 136-145 [facility] Comment on above: Performed By: #### B MP, HS TROP, BNP, CBC, CK, PT, PTT #### [facility] [address] Urea nitrogen [Mass/Vol] 17 mg/dL Normal 7-25 [facility] Comment on above: Performed By: #### B MP, HS TROP, BNP, CBC, CK, PT, PTT #### [facility] [address] Basophils Auto (Bld) [#/Vol] Ordered By: Ramiro Cortez on 03-03-2023 Basophils (Bld) [#/Vol] 0.0 10*3/uL 0.0-0.2 [facility] Basophils/100 WBC Auto (Bld) Ordered By: Ramiro Cortez on 03-03-2023 Basophils/100 WBC (Bld) 0.4 % . [facility] Calcium [Mass/volume] in Ser um or PlasmaOrdered By: Ramiro Cortez on 03-03-2023 Calcium [Mass/Vol] 8.6 mg/dL 8.6-10.3 [facility] Carbon dioxide, total [Moles /volume] in Serum or PlasmaOrdered By: Ramiro Cortez on 03-03-2023 CO2 [Moles/Vol] 24.6 mmol/L 21.0-31.0 [facility] Chloride [Moles/volume] in S pooja or PlasmaOrdered By: Ramiro Cortez on 03-03-2023 Chloride [Moles/Vol] 108 mmol/L 98-107 [facility] Complete Blood Count Auto Di ffon 03-03-2023 Basophils (Bld) [#/Vol] 0.0 10*3/uL Normal 0.0-0.2 [facility] Comment on above: Result Comment: PERF ORMED BY: [place] [address] PATHOLOGIST TANBARK PEELER RADHA BARRON M.D. Performed By: #### B MP, HS TROP, BNP, CBC, CK, PT, PTT #### [facility] [address] Basophils/100 WBC (Bld) 0.4 % Normal . [facility] Comment on above: Performed By: #### B MP, HS TROP, BNP, CBC, CK, PT, PTT #### [address] Eosinophils (Bld) [#/Vol] 0.2 10*3/uL Normal 0.0-0.45 [facility] Comment on above: Performed By: #### B MP, HS TROP, BNP, CBC, CK, PT, PTT #### [address] Eosinophils/100 WBC (Bld) 2.4 % Normal . [facility] Comment on above: Performed By: #### B MP, HS TROP, BNP, CBC, CK, PT, PTT #### [address] Erythrocyte distribution width (RBC) [Ratio] 13.0 % Normal 12.0-14.8 [facility] Comment on above: Performed By: #### B MP, HS TROP, BNP, CBC, CK, PT, PTT #### [address] Hematocrit (Bld) [Volume fraction] 38.3 % Low 38.8-50.0 [facility] Comment on above: Performed By: #### B MP, HS TROP, BNP, CBC, CK, PT, PTT #### [address] Hemoglobin (Bld) [Mass/Vol] 12.9 g/dL Low 13.0-17.0 [facility] Comment on above: Performed By: #### B MP, HS TROP, BNP, CBC, CK, PT, PTT #### [address] Lymphocytes (Bld) [#/Vol] 2.6 10*3/uL Normal 1.00-4.8 [facility] Comment on above: Performed By: #### B MP, HS TROP, BNP, CBC, CK, PT, PTT #### [address] Lymphocytes/100 WBC (Bld) 28.3 % Normal . [facility] Comment on above: Performed By: #### B MP, HS TROP, BNP, CBC, CK, PT, PTT #### [address] MCH (RBC) [Entitic mass] 30.8 pg Normal 27.5-35.2 [facility] Comment on above: Performed By: #### B MP, HS TROP, BNP, CBC, CK, PT, PTT #### [address] MCV (RBC) [Entitic vol] 91.9 fL Normal 83.5-101 [facility] Comment on above: Performed By: #### B MP, HS TROP, BNP, CBC, CK, PT, PTT #### [address] Mean Corpuscular HGB Conc 33.6 g/dL Normal 32.5-35.6 [facility] Comment on above: Performed By: #### B MP, HS TROP, BNP, CBC, CK, PT, PTT #### [address] Monocytes (Bld) [#/Vol] 0.6 10*3/uL Normal 0.0-0.8 [facility] Comment on above: Performed By: #### B MP, HS TROP, BNP, CBC, CK, PT, PTT #### [address] Monocytes/100 WBC (Bld) 24.67 % High 0.00-20.00 [facility] Comment on above: Result Comment: For adults in ED, MDW > 20.0 may be associated with a higher risk of sepsis during the first 12 hrs of hospital admission Performed By: #### B MP, HS TROP, BNP, CBC, CK, PT, PTT #### [address] Monocytes/100 WBC (Bld) 6.5 % Normal . [facility] Comment on above: Performed By: #### B MP, HS TROP, BNP, CBC, CK, PT, PTT #### [address] Neutrophils (Bld) [#/Vol] 5.7 10*3/uL Normal 1.8-7.7 [facility] Comment on above: Performed By: #### B MP, HS TROP, BNP, CBC, CK, PT, PTT #### [address] Neutrophils/100 WBC (Bld) 62.4 % Normal . [facility] Comment on above: Performed By: #### B MP, HS TROP, BNP, CBC, CK, PT, PTT #### [address] NRBC% 0.1 /100{WBC} Normal 0-0.5 [facility] Comment on above: Performed By: #### B MP, HS TROP, BNP, CBC, CK, PT, PTT #### [address] Platelet mean volume (Bld) [Entitic vol] 8.2 fL Normal 6.6-10.1 [facility] Comment on above: Performed By: #### B MP, HS TROP, BNP, CBC, CK, PT, PTT #### [address] Platelets (Bld) [#/Vol] 234 10*3/uL Normal 150-450 [facility] Comment on above: Performed By: #### B MP, HS TROP, BNP, CBC, CK, PT, PTT #### [address] RBC (Bld) [#/Vol] 4.17 10*6/uL Normal 3.90-5.60 [facility] Comment on above: Performed By: #### B MP, HS TROP, BNP, CBC, CK, PT, PTT #### [address] WBC (Bld) [#/Vol] 9.2 10*3/uL Normal 4.1-10.5 [facility] Comment on above: Performed By: #### B MP, HS TROP, BNP, CBC, CK, PT, PTT #### [facility] [address] [place] [id number] [place] Creatine Kinaseon 03-03-2023 CK [Catalytic activity/Vol] 125 U/L Normal [facility] Comment on above: Performed By: #### B MP, HS TROP, BNP, CBC, CK, PT, PTT #### [facility] [address] [place] [id number] [facility] Creatine kinase [Enzymatic a ctivity/volume] in Serum or PlasmaOrdered By: Ramiro Cortez on 03-03-2023 CK [Catalytic activity/Vol] 125 U/L [facility] Creatinine [Mass/volume] in Serum or PlasmaOrdered By: Ramiro Cortez on 03-03-2023 Creatinine [Mass/Vol] 1.19 mg/dL 0.70-1.30 [facility] ECG 12 lead ECGon 03-03-2023 ECG 12 lead ECG [facility] Main [employer] [address] [place] [address] Electrocardiograph Report Signed Patient: Jeb Riddle MR#: [id number] : 1950 Acct:[id number] Age/Sex: 72 / M ADM Date: 03/03/23 Loc: ER Room: Type: [facility] ER Attending Dr: Ordering Provider: Ramiro Cortez DO Date of Service: 03/03/23 ECG/ECG 12 lead ECG: Chest Pain Copies to: Test Reason : Blood Pressure : 229/104 mmHG Vent. Rate : 084 BPM Atrial Rate : 084 BPM P-R Int : 160 ms QRS Dur : 096 ms QT Int : 370 ms P-R-T Axes : 069 051 070 degrees QTc Int : 437 ms Sinus rhythm with marked sinus arrhythmia Otherwise normal ECG No previous ECGs available Confirmed by RAMIRO CORTEZ DO ([id number]) on 03/03/2023 8:14:27 PM Referred By: Electronically Signed By:RAMIRO CORTEZ DO Transcribed By: MUS Signed By Ramiro Cortez DO 03/03 [facility] Eosinophils Auto (Bld) [#/Vo l]Ordered By: Ramiro Cortez on 03-03-2023 Eosinophils (Bld) [#/Vol] 0.2 10*3/uL 0.0-0.45 [facility] Eosinophils/100 WBC Auto (Bl d)Ordered By: Ramiro Cortez on 03-03-2023 Eosinophils/100 WBC (Bld) 2.4 % . [facility] Erythrocyte distribution wid th Auto (RBC) [Ratio]Ordered By: Ramiro Cortez on 03-03-2023 Erythrocyte distribution width (RBC) [Ratio] 13.0 % 12.0-14.8 [facility] Glucose [Mass/volume] in Ser um or PlasmaOrdered By: Ramiro Cortez on 03-03-2023 Glucose [Mass/Vol] 93 mg/dL 70-100 [facility] Comment on above: ADA recommended refe rence rangeRandom Glucose Reference Range is dependent on time and content of last meal. Glucose of more than 200 mg/dL in a nonstressed, ambulatory subject supports the diagnosis of Diabetes Mellitus. Hematocrit Auto (Bld) [Volum e fraction]Ordered By: Ramiro Cortez on 03-03-2023 Hematocrit (Bld) [Volume fraction] 38.3 % 38.8-50.0 [facility] Hemoglobin [Mass/volume] in BloodOrdered By: Ramiro Cortez on 03-03-2023 Hemoglobin (Bld) [Mass/Vol] 12.9 g/dL 13.0-17.0 [facility] Laboratory - CoagulationOrde red By: Ramiro Cortez on 03-03-2023 PT Coag (PPP) [Time] 12.3 s 9.0-12.9 [facility] Leukocytes [#/volume] correc ava for nucleated erythrocytes in Blood by Automated counOrdered By: Ramiro Cortez on 03-03-2023 WBC corrected for nucl RBC Auto (Bld) [#/Vol] 9.2 10*3/uL 4.1-10.5 [facility] Lymphocytes Auto (Bld) [#/Vo l]Ordered By: Ramiro Cortez on 03-03-2023 Lymphocytes (Bld) [#/Vol] 2.6 10*3/uL 1.00-4.8 [facility] Lymphocytes/100 WBC Auto (Bl d)Ordered By: Ramiro Cortze on 03-03-2023 Lymphocytes/100 WBC (Bld) 28.3 % . [facility] MCH Auto (RBC) [Entitic mass ]Ordered By: Ramiro Cortez on 03-03-2023 MCH (RBC) [Entitic mass] 30.8 pg 27.5-35.2 [facility] MCHC Auto (RBC) [Mass/Vol]Or dered By: Ramiro Cortez on 03-03-2023 MCHC (RBC) [Mass/Vol] 33.6 g/dL 32.5-35.6 [facility] MCV Auto (RBC) [Entitic vol] Ordered By: Ramiro Cortez on 03-03-2023 MCV (RBC) [Entitic vol] 91.9 fL 83.5-101 [facility] Monocyte distribution width [Entitic volume] in Blood by AutomatedOrdered By: Ramiro Cortez on 03-03-2023 Monocyte distribution width Auto (Bld) [Entitic vol] 24.67 % 0.00-20.00 [facility] Comment on above: For adults in ED, MD W > 20.0 may be associated with a higher risk of sepsis during the first 12 hrs of hospital admission Monocytes Auto (Bld) [#/Vol] Ordered By: Ramiro Cortez on 03-03-2023 Monocytes (Bld) [#/Vol] 0.6 10*3/uL 0.0-0.8 [facility] Monocytes/100 WBC Auto (Bld) Ordered By: Ramiro Cortez on 03-03-2023 Monocytes/100 WBC (Bld) 6.5 % . [facility] Natriuretic peptide B [Mass/ Vol]Ordered By: Ramiro Cortez on 03-03-2023 Natriuretic peptide B (Bld) [Mass/Vol] 52.0 pg/mL 5-100 [facility] Neutrophils Auto (Bld) [#/Vo l]Ordered By: Ramiro oCrtez on 03-03-2023 Neutrophils (Bld) [#/Vol] 5.7 10*3/uL 1.8-7.7 [facility] Neutrophils/100 WBC Auto (Bl d)Ordered By: Ramiro Cortez on 03-03-2023 Neutrophils/100 WBC (Bld) 62.4 % . [facility] No Panel InformationOrdered By: Ramiro Cortez on 03-03-2023 Estimated GFR (CKD-EPI) > 60.0 mL/Min [facility] Creatinine Clearance (Chem 55.29 [facility] Nucleated erythrocytes [Pres ence] in Blood by Automated countOrdered By: Ramiro Cortez on 03-03-2023 Nucleated RBC Auto Ql (Bld) 0.1 /100{WBC} 0-0.5 [facility] Partial Thromboplastin Timeo n 03-03-2023 aPTT Coag (Bld) [Time] 29.7 s Normal 25.1-36.5 [facility] Comment on above: Result Comment: PERF ORMED BY: [facility] [address] [place] [address] PATHOLOGIST TANBARK PEELER RADHA BARRON M.D. Performed By: #### B MP, HS TROP, BNP, CBC, CK, PT, PTT #### [facility] [address] Platelet mean volume Auto (B ld) [Entitic vol]Ordered By: Ramiro Cortez on 03-03-2023 Platelet mean volume (Bld) [Entitic vol] 8.2 fL 6.6-10.1 [facility] Platelet poor plasma interna tional normalized ratio (INR) by coagulation assay (relatOrdered By: Ramiro Cortez on 03-03-2023 INR Coag (PPP) [Relative time] 1.1 {INR} [facility] Comment on above: INR Therapeutic Rang e A) Pre- and Peroperative OAT started two weeks before surgery. NOT HIP SURGERY: 1.5 - 2.5 HIP SURGERY: 2 - 3B) Primary and secondary prevention of venous THROMBOSIS: 2 - 3C) Active venous thrombosis, pulmonary embolismand prevention of recurrent venous thrombosis: 2 - 3D) Prevention of arterial thromboembolismincluding patients with mechanical heart valves: 3 - 4.5 Platelets Auto (Bld) [#/Vol] Ordered By: Ramiro Cortez on 03-03-2023 Platelets (Bld) [#/Vol] 234 10*3/uL 150-450 [facility] Potassium [Moles/volume] in Serum or PlasmaOrdered By: Ramiro Cortez on 03-03-2023 Potassium [Moles/Vol] 4.2 mmol/L 3.5-5.1 [facility] Prothrombin Time INRon 03-03 INR Coag (PPP) [Relative time] 1.1 {INR} Normal [facility] Comment on above: Result Comment: INR Therapeutic Range A) Pre- and Peroperative OAT started two weeks before surgery. NOT HIP SURGERY: 1.5 - 2.5 HIP SURGERY: 2 - 3 B) Primary and secondary prevention of venous THROMBOSIS: 2 - 3 C) Active venous thrombosis, pulmonary embolism and prevention of recurrent venous thrombosis: 2 - 3 D) Prevention of arterial thromboembolism including patients with mechanical heart valves: 3 - 4.5 Performed By: #### B MP, HS TROP, BNP, CBC, CK, PT, PTT #### [facility] [address] PT Coag (PPP) [Time] 12.3 s Normal 9.0-12.9 [facility] Comment on above: Performed By: #### B MP, HS TROP, BNP, CBC, CK, PT, PTT #### [facility] [address] RBC Auto (Bld) [#/Vol]Ordere d By: Ramiro Cortez on 03-03-2023 RBC (Bld) [#/Vol] 4.17 10*6/uL 3.90-5.60 [facility] Serum or plasma anion gap de terminationOrdered By: Ramiro Cortez on 03-03-2023 Anion gap [Moles/Vol] 10.6 mmol/L 6.0-15.0 [facility] Sodium [Moles/volume] in Ser um or PlasmaOrdered By: Ramiro Cortez on 03-03-2023 Sodium [Moles/Vol] 139 mmol/L 136-145 [facility] Troponin I High Sensitivityo n 03-03-2023 Troponin I High Sensitivity 7.6 pg/mL Normal 0.0-20.0 [facility] Comment on above: Result Comment: PERF ORMED BY: [facility] [address] [place] [address] PATHOLOGIST TANBARK PEELER RADHA BARRON M.D. Performed By: #### B MP, HS TROP, BNP, CBC, CK, PT, PTT #### [address] Troponin I.cardiac [Mass/vol ume] in Serum or Plasma by Detection limit <= 0.01 ng/Ordered By: Ramiro Cortez on 03-03-2023 Troponin I.cardiac DL <= 0.01 ng/mL [Mass/Vol] 7.6 pg/mL 0.0-20.0 [facility] Urea nitrogen [Mass/volume] in Serum or PlasmaOrdered By: Ramiro Cortez on 03-03-2023 Urea nitrogen [Mass/Vol] 17 mg/dL 7-25 [facility] WBC Auto (Bld) [#/Vol]Ordere d By: Ramiro Cortez on 03-03-2023 WBC (Bld) [#/Vol] 9.2 10*3/uL 4.1-10.5 [facility] XR chest 2V*on 03-03-2023 XR chest 2V* [facility] Main [employer] [address] [place] [address] XRay Report Signed Patient: Jeb Riddle MR#: [id number] : 1950 Acct:[id number] Age/Sex: 72 / M ADM Date: 03/03/23 Loc: ER Room: Type: [facility] ER Attending Dr: Copies to: Ramiro Cortez DO Ordering Provider: Ramiro Cortez DO Date of Service: 03/03/23 XR/XR chest 2V*: Chest Pain PA AND LATERAL CHEST: CLINICAL HISTORY: Midsternal chest pain while lifting a bed frame. Dizziness. COMPARISON: None There is no focal parenchymal consolidation, effusion or pneumothorax. The cardiac, hilar and mediastinal silhouettes are within normal limits. There is no vascular congestion. The visualized bony thorax is intact. There is slight dextroscoliotic curvature. XR/XR chest 2V* IMPRESSION: NO ACUTE CARDIOPULMONARY ABNORMALITY. Impression dictated by: Ivonne Zavala M.D.03/03/2023 12:46 PM Dictation Location: [place] [address] Transcribed By: [facility] 03/03/23 1246 Dictated By: Ivonne Zavala MD 03/03/23 1245 Signed By: 03/03/23 1246 [facility] CBC AUTO DIFFon 01-11-2023 BASO # 0.0 103/ul Normal 0.0-0.1 [facility] Comment on above: Performed By: #### C BC #### [facility] [address] [address] [address] Andrea Garcia Basophils/100 WBC (Bld) 0.0 % Critically low 0.2-2.0 [facility] Comment on above: Performed By: #### C BC #### [facility] [address] [place] [address] Dr. Andrea Garcia EO # 0.0 103/ul Normal 0.0-0.7 [facility] Comment on above: Performed By: #### C BC #### [facility] [address] [address] [address] Andrea Garcia Eosinophils/100 WBC (Bld) 0.0 % Critically low 0.9-7.0 [facility] Comment on above: Performed By: #### C BC #### [facility] [address] [place] [address] Dr. Andrea Garcia Erythrocyte distribution width (RBC) [Ratio] 12.8 % Normal 11.0-15.0 [facility] Comment on above: Performed By: #### C BC #### [facility] [address] [place] [address] Dr. Andrea Garcia Hematocrit (Bld) [Volume fraction] 36.2 % Critically low 42.0-54.0 [facility] Comment on above: Performed By: #### C BC #### [facility] [address] [place] [address] Dr. Andrea Garcia Hemoglobin (Bld) [Mass/Vol] 12.8 g/dL Critically low 14.0-18.0 [facility] Comment on above: Performed By: #### C BC #### [facility] [address] [place] [address] Dr. Andrea Garcia IG # 0.03 10e3/ul Normal 0.00-0.03 [facility] Comment on above: Performed By: #### C BC #### [facility] [address] [place] [address] Dr. Andrea Garcia IG % 0.4 % Normal 0.0-0.5 [facility] Comment on above: Performed By: #### C BC #### [facility] [address] [place] [address] Dr. Andrea Garcia LYMPH # 1.1 103/ul Critically low 1.2-3.8 [facility] Comment on above: Performed By: #### C BC #### [facility] [address] [place] [address] Dr. Andrea Garcia Lymphocytes/100 WBC (Bld) 15.3 % Critically low 20.5-60.0 [facility] Comment on above: Performed By: #### C BC #### [facility] [address] [place] [address] Dr. Andrea Garcia MANUAL DIFF REQ NO Normal [facility] Comment on above: Performed By: #### C BC #### [facility] [address] [place] [address] Dr. Andrea Garcia MCH (RBC) [Entitic mass] 31.3 pg Normal 25.9-34.0 [facility] Comment on above: Performed By: #### C BC #### [facility] [address] [place] [address] Dr. Andrea Garcia MCHC (RBC) [Mass/Vol] 35.4 g/dL Critically high 29.9-35.2 [facility] Comment on above: Performed By: #### C BC #### [facility] [address] [place] [address] Dr. Andrea Garcia MCV (RBC) [Entitic vol] 88.5 fL Normal 80.0-94.0 [facility] Comment on above: Performed By: #### C BC #### [facility] [address] [place] [address] Dr. Andrea Garica MONO # 0.1 103/ul Critically low 0.3-0.8 [facility] Comment on above: Performed By: #### C BC #### [facility] [address] [place] [address] Dr. Andrea Garcia Monocytes/100 WBC (Bld) 0.7 % Critically low 1.7-12.0 [facility] Comment on above: Performed By: #### C BC #### [facility] [address] [place] [address] Dr. Andrea Garcia NEUT # 6.0 103/ul Normal 1.4-6.5 [facility] Comment on above: Performed By: #### C BC #### [facility] [address] [place] [address] Dr. Andrea Garcia Neutrophils/100 WBC (Bld) 83.6 % Critically high 43.0-75.0 [facility] Comment on above: Performed By: #### C BC #### [facility] [address] [place] [address] Dr. Andrea Garcia Platelet mean volume (Bld) [Entitic vol] 10.1 fL Normal 9.5-13.5 [facility] Comment on above: Performed By: #### C BC #### [facility] [address] [place] [address] Dr. Andrea Garcia PLT 216 103/ul Normal 150-450 [facility] Comment on above: Performed By: #### C BC #### [facility] [address] [place] [address] Dr. Andrea Garcia RBC 4.09 106/ul Critically low 4.70-6.10 [facility] Comment on above: Performed By: #### C BC #### [facility] [address] [place] [address] Dr. Andrea Garcia WBC 7.2 103/ul Normal 4.0-11.0 [facility] Comment on above: Performed By: #### C BC #### [facility] [address] [place] [address] Dr. Andrea Garcia PROF 14(COMP METB)on 05-30-2 023 Albumin [Mass/Vol] 2.8 g/dL Critically low 3.4-5.0 [facility] Comment on above: Performed By: #### C MP #### [facility] [address] [place] [address] Dr. Andrea Garcia Albumin/Globulin [Mass ratio] 0.8 {ratio} Normal [facility] Comment on above: Performed By: #### C MP #### [facility] [address] [place] [address] Dr. Andrea Garcia ALP [Catalytic activity/Vol] 64 U/L Normal 46-116 [facility] Comment on above: Performed By: #### C MP #### [facility] [address] [place] [address] Dr. Andrea Garcia ALT [Catalytic activity/Vol] 27 U/L Normal 16-63 [facility] Comment on above: Performed By: #### C MP #### [facility] [address] [place] [address] Dr. Andrea Garcia Anion gap [Moles/Vol] 12.9 mmol/L Normal [facility] Comment on above: Performed By: #### C MP #### [facility] [address] [place] [address] Dr. Andrea Garcia AST [Catalytic activity/Vol] 16 U/L Normal 15-37 [facility] Comment on above: Performed By: #### C MP #### [facility] [address] [place] [address] Dr. Andrea Garcia Bilirubin [Mass/Vol] 0.4 mg/dL Normal 0.2-1.0 [facility] Comment on above: Performed By: #### C MP #### [facility] [address] [place] [address] Dr. Andrea Garcia Calcium [Mass/Vol] 8.2 mg/dL Critically low 8.5-10.1 [facility] Comment on above: Performed By: #### C MP #### [facility] [address] [place] [address] Dr. Andrea Garcia Chloride [Moles/Vol] 107 mmol/L Normal 98-107 [facility] Comment on above: Performed By: #### C MP #### [facility] [address] [address] [address] Andrea Garcia CO2 [Moles/Vol] 24.2 mmol/L Normal 21.0-32.0 [facility] Comment on above: Performed By: #### C MP #### [facility] [address] [address] [address] Andrea Garcia Creatinine [Mass/Vol] 1.07 mg/dL Normal 0.70-1.30 [facility] Comment on above: Performed By: #### C MP #### [facility] [address] [address] [address] Andrea Garcia EGFR-AF EQUATORIAL GUINEAN >60 Normal >=60 [facility] Comment on above: Performed By: #### C MP #### [facility] [address] [place] [address] Dr. Andrea Garcia EGFR-NON AF EQUATORIAL GUINEAN >60 Normal >=60 [facility] Comment on above: Performed By: #### C MP #### [facility] [address] [place] [address] Dr. Andrea Garcia Globulin (S) [Mass/Vol] 3.5 g/dL Normal [facility] Comment on above: Performed By: #### C MP #### [facility] [address] [place] [address] Dr. Andrea Garcia Glucose [Mass/Vol] 164 mg/dL Critically high 74-106 [facility] Comment on above: Performed By: #### C MP #### [facility] [address] [place] [address] Dr. Andrea Garcia Potassium [Moles/Vol] 4.1 mmol/L Normal 3.5-5.1 [facility] Comment on above: Performed By: #### C MP #### [facility] [address] [place] [address] Dr. Andrea Garcia Protein [Mass/Vol] 6.3 g/dL Critically low 6.4-8.2 Th [facility] Comment on above: Performed By: #### C MP #### [facility] [address] [address] [address] Andrea Garcia Sodium [Moles/Vol] 140 mmol/L Normal 136-145 [facility] Comment on above: Performed By: #### C MP #### [facility] [address] [address] [address] Andrea Garcia Urea nitrogen [Mass/Vol] 16.0 mg/dL Normal 7.0-18.0 [facility] Comment on above: Performed By: #### C MP #### [facility] [address] [address] [address] Andrea Garcia Urea nitrogen/Creatinine [Mass ratio] 15.0 mg/mg Normal [facility] Comment on above: Performed By: #### C MP #### [facility] [address] [address] [address] Andrea Garcia XR KUB 1 VIEWon 01-11-2023 XR KUB 1 VIEW EXAMINATION: XR KUB 1 VIEW HISTORY: UNSPECIFIED ABDOMINAL PAIN COMPARISON: 01/12/2022, 01/10/2023 FINDINGS: BOWEL GAS PATTERN: There is now identified throughout the GI tract extending down to the level of the rectosigmoid junction CALCIFICATIONS: None significant. OTHER: Bilateral hip osteoarthropathy. No abnormal gaseous collections. IMPRESSION: Nonobstructive bowel gas pattern Electronically authenticated by: ROBERT DAVENPORT Date: 2023-01-11 06:56 Normal [facility] AMYLASEon 01-10-2023 Amylase [Catalytic activity/Vol] 56 U/L Normal 25-115 [facility] Comment on above: Performed By: #### C MADM, CMP, DAMIEN, LIPA ####[facility] [address] [place], [place] [address]ZdDr. Andrea Garcia CARDIAC JEB 3-6on 3 CK [Catalytic activity/Vol] 92 U/L Normal 39-308 [facility] Comment on above: Performed By: #### C MREP #### [facility] [address] [address] [address] Andrea Garcia CK.MB [Mass/Vol] 1.66 ng/mL Normal <=3.60 [facility] Comment on above: Performed By: #### C MREP #### [facility] [address] [address] [address] Andrea Garcia HSTROP 12.8 pg/mL Normal 4.0-76.1 [facility] Comment on above: Result Comment: CUT- OFF POINTS HAVE BEEN ESTABLISHED BASED ON THE FOURTH UNIVERSAL DEFINITIONS OF MYOCARDIAL INFARCTION. THE UPPER REFERENCE LIMIT (URL) OF TROPONIN, DEFINED THE 99TH PERCENTILE OF cTnI DISTRIBUTION IN A REFERENCE POPULATION, HAS BEEN CONFIRMED THE DECISION THRESHOLD FOR MN DIAGNOSIS. Performed By: #### C MREP #### [facility] [address] [address] [address] Andrea Garcia CK [Catalytic activity/Vol] 72 U/L Normal 39-308 [facility] Comment on above: Performed By: #### C MREP #### [facility] [address] [address] [address] Andrea Garcia CK.MB [Mass/Vol] 1.89 ng/mL Normal <=3.60 [facility] Comment on above: Performed By: #### C MREP #### [facility] [address] [address] [address] Andrea Garcia HSTROP 13.5 pg/mL Normal 4.0-76.1 [facility] Comment on above: Result Comment: CUT- OFF POINTS HAVE BEEN ESTABLISHED BASED ON THE FOURTH UNIVERSAL DEFINITIONS OF MYOCARDIAL INFARCTION. THE UPPER REFERENCE LIMIT (URL) OF TROPONIN, DEFINED THE 99TH PERCENTILE OF cTnI DISTRIBUTION IN A REFERENCE POPULATION, HAS BEEN CONFIRMED THE DECISION THRESHOLD FOR MN DIAGNOSIS. Performed By: #### C MREP #### [facility] [address] [address] [address] Andrea Garcia CARDIAC JEB ADMITon 023 CK [Catalytic activity/Vol] 85 U/L Normal 39-308 [facility] Comment on above: Performed By: #### C MADM, CMP, DAMIEN, LIPA ####[facility] [address] [place], [place] [address]CaDr. Andrea Garcia CK.MB [Mass/Vol] 1.80 ng/mL Normal <=3.60 [facility] Comment on above: Performed By: #### C MADM, CMP, DAMIEN, LIPA ####[facility] [address] [place] [id number]. Andrea Garcia HSTROP 15.7 pg/mL Normal 4.0-76.1 [facility] Comment on above: Result Comment: CUT- OFF POINTS HAVE BEEN ESTABLISHED BASED ON THE FOURTH UNIVERSAL DEFINITIONS OF MYOCARDIAL INFARCTION. THE UPPER REFERENCE LIMIT (URL) OF TROPONIN, DEFINED THE 99TH PERCENTILE OF cTnI DISTRIBUTION IN A REFERENCE POPULATION, HAS BEEN CONFIRMED THE DECISION THRESHOLD FOR MN DIAGNOSIS. Performed By: #### C MADM, CMP, DAMIEN, LIPA ####[facility] [address] [place] [address]Dr. Andrea Garcia MIQUEL 61 ng/mL Normal 16-96 [facility] Comment on above: Performed By: #### C MADM, CMP, DAMIEN, LIPA ####[facility] [address] [place] [address]Dr. Andrea Jose CBC AUTO DIFFon 01-10-2023 BASO # 0.0 103/ul Normal 0.0-0.1 [facility] Comment on above: Performed By: #### C BC ####[facility] [address] [place] [address]Dr. Andrea Jose Basophils/100 WBC (Bld) 0.5 % Normal 0.2-2.0 [facility] Comment on above: Performed By: #### C BC ####[facility] [address] [place] [address]Dr. Andrea Garcia EO # 0.4 103/ul Normal 0.0-0.7 [facility] Comment on above: Performed By: #### C BC ####[facility] [address] [place] [address]Dr. Andrea Jose Eosinophils/100 WBC (Bld) 5.9 % Normal 0.9-7.0 [facility] Comment on above: Performed By: #### C BC ####[facility] [address] [place] [address]Dr. Andrea Jose Erythrocyte distribution width (RBC) [Ratio] 13.0 % Normal 11.0-15.0 [facility] Comment on above: Performed By: #### C BC ####[facility] [address] [place] [address]Dr. Andrea Garcia Hematocrit (Bld) [Volume fraction] 40.0 % Critically low 42.0-54.0 [facility] Comment on above: Performed By: #### C BC ####[facility] [address] [place] [address]Dr. Andrea Garcia Hemoglobin (Bld) [Mass/Vol] 13.4 g/dL Critically low 14.0-18.0 [facility] Comment on above: Performed By: #### C BC ####[facility] [address] [place], [place] [address]Dr. Andrea Garcia IG # 0.01 10e3/ul Normal 0.00-0.03 [facility] Comment on above: Performed By: #### C BC ####[facility] [address] [place], [place] [address]Dr. Andrea Garcia IG % 0.2 % Normal 0.0-0.5 [facility] Comment on above: Performed By: #### C BC ####[facility] [address] [place], [place] [address]DrWilder Garcia LYMPH # 2.2 103/ul Normal 1.2-3.8 [facility] Comment on above: Performed By: #### C BC ####[facility] [address] [place], [place] [address]DrWilder Garcia Lymphocytes/100 WBC (Bld) 33.2 % Normal 20.5-60.0 [facility] Comment on above: Performed By: #### C BC ####[facility] [address] [place], [place] [address]DrWilder Garcia MANUAL DIFF REQ NO Normal [facility] Comment on above: Performed By: #### C BC ####[facility] [address] [place], [place] [address]Dr. Andrea Garcia MCH (RBC) [Entitic mass] 30.5 pg Normal 25.9-34.0 [facility] Comment on above: Performed By: #### C BC ####[facility] [address] [place] [address]Dr. Andrea Jose MCHC (RBC) [Mass/Vol] 33.5 g/dL Normal 29.9-35.2 [facility] Comment on above: Performed By: #### C BC ####[facility] [address] [place] [address]DrWilder Garcia MCV (RBC) [Entitic vol] 90.9 fL Normal 80.0-94.0 [facility] Comment on above: Performed By: #### C BC ####[facility] [address] [place], [place] [address]DrWilder Garcia MONO # 0.4 103/ul Normal 0.3-0.8 [facility] Comment on above: Performed By: #### C BC ####[facility] [address] [place], [place] [address]Dr. Andrea Garcia Monocytes/100 WBC (Bld) 6.0 % Normal 1.7-12.0 [facility] Comment on above: Performed By: #### C BC ####[facility] [address] [place], [place] [address]Dr. Andrea Garcia NEUT # 3.5 103/ul Normal 1.4-6.5 [facility] Comment on above: Performed By: #### C BC ####[facility] [address] [place], [place] [address]Dr. Andrea Garcia Neutrophils/100 WBC (Bld) 54.2 % Normal 43.0-75.0 [facility] Comment on above: Performed By: #### C BC ####[facility] [address] [place], [place] [address]DrWilder Garcia Platelet mean volume (Bld) [Entitic vol] 9.7 fL Normal 9.5-13.5 [facility] Comment on above: Performed By: #### C BC ####[facility] [address] [place], [place] [address]DrWilder Garcia PLT 225 103/ul Normal 150-450 [facility] Comment on above: Performed By: #### C BC ####[facility] [address] [place], [place] [address]AfWilder Garica RBC 4.40 106/ul Critically low 4.70-6.10 [facility] Comment on above: Performed By: #### C BC ####[facility] [address] [place], [place] [address]FgWilder Garcia WBC 6.5 103/ul Normal 4.0-11.0 [facility] Comment on above: Performed By: #### C BC ####[facility] [address] [place], [place] [address]Ys. Andrea Garcia CT ABD/PELV W CONon 01-11-[address] ABD/PELV W CON EXAM: CT scan of the abdomen and pelvis with IV iodinated contrast. Oral contrast. Dose reduction technique used: Automated exposure control and/or adjustment of the mA and/or kV according to patient size and/or use of iterative reconstruction technique. REASON FOR EXAM: Abdominal pain COMPARISON: CT scan dated 01/11/2022 FINDINGS: Partial cecal resection and appendectomy with ileocolonic anastomosis. Dilated loops of small bowel throughout the abdomen. Abrupt transition point in the distal ileum where there is a short segment of wall thickening leading up to the ileocolonic anastomosis. Wall thickening in this region was present previously although may be slightly worsened. Multiple bilateral nonobstructing calyceal tip renal stones. 8.5 cm right parapelvic renal cyst. Enlarged prostate. Colonic diverticulosis. No free intraperitoneal air. No free fluid in the abdomen or pelvis. No hydronephrosis or obstructing renal or ureteral calculi. Liver, pancreas, spleen, bilateral kidneys, and bilateral adrenal glands are otherwise unremarkable. No lymphadenopathy in the abdomen or pelvis. Remainder unremarkable. IMPRESSION: 1. Mechanical small bowel obstruction due to wall thickening and possible underlying stricture of the distal ileum leading up to the prior ileocolonic anastomosis. 2. Distal small bowel wall thickening is likely due to Crohn's disease although malignancy cannot be entirely excluded. 3. Bilateral nephrolithiasis. Electronically authenticated by: ADITYA OATES Date: 2023-01-10 07:41 Normal [facility] CULTURE BLOODon 01-10-2023 Microscopic examination of blood, culture Culture Observations: NO GROWTH AT 36-48 HOURS. FINAL TO FOLLOW. Normal [facility] Comment on above: Performed By: #### B LDCX2 ####[facility] [address] [place] [address]Dr. Andrea Garcia Microscopic examination of blood, culture Culture Observations: NO GROWTH AT 36-48 HOURS. FINAL TO FOLLOW. Normal [facility] Comment on above: Performed By: #### B LDCX1 ####[facility] [address] [place] [address]Dr. Andrea Garcia ER URINE PROFILEon 3 Bilirubin Ql (U) Negative Normal NEGATIVE [facility] Comment on above: Performed By: #### U MICRO, ERUR #### [facility] [address] [place] [address] Dr. Andrea Garcia Clarity (U) CLEAR Normal CLEAR [facility] Comment on above: Performed By: #### U MICRO, ERUR #### [facility] [address] [place] [address] Dr. Andrea Garcia Color (U) LT. YELLOW Normal YELLOW [facility] Comment on above: Performed By: #### U MICRO, ERUR #### [facility] [address] [place] [address] Dr. Andrea Garcia ERUNILSD A micrscopic examina tion will be performed if indicated. Normal [facility] Comment on above: Performed By: #### U MICRO, ERUR #### [facility] [address] [place] [address] Dr. Andrea Garcia Glucose Ql (U) Negative Normal NEGATIVE [facility] Comment on above: Performed By: #### U MICRO, ERUR #### [facility] [address] [place] [address] Dr. Andrea Garcia Hemoglobin Ql (U) TRACE-INTACT Abnormal NEGATIVE [facility] Comment on above: Performed By: #### U MICRO, ERUR #### [facility] [address] [place] [address] Dr. Andrea Garcia Ketones Ql (U) Negative Normal NEGATIVE [facility] Comment on above: Performed By: #### U MICRO, ERUR #### [facility] [address] [place] [address] Dr. Andrea Garcia LEUKOCYTES Negative Normal NEGATIVE [facility] [facility] Comment on above: Performed By: #### U MICRO, ERUR #### [facility] [address] [place] [address] Dr. Andrea Garcia Nitrite Ql (U) Negative Normal NEGATIVE [facility] Comment on above: Performed By: #### U MICRO, ERUR #### [facility] [address] [place] [address] Dr. Andrea Garcia pH (U) 5.5 [pH] Normal 5-9 [facility] Comment on above: Performed By: #### U MICRO, ERUR #### [facility] [address] [place] [address] Dr. Andrea Garcia SPEC GRAVITY 1.015 Normal 1.005-<=1. 025 [facility] Comment on above: Performed By: #### U MICRO, ERUR #### [facility] [address] [place] [address] Dr. Andrea Garcia UA PROTEIN Negative Normal NEGATIVE/ TRACE [facility] Comment on above: Performed By: #### U MICRO, ERUR #### [facility] [address] [place] [address] Dr. Andrea Garcia UR MICRO IND INDICATED Normal [facility] Comment on above: Performed By: #### U MICRO, ERUR #### [facility] [address] [place] [address] Dr. Andrea Garcia Urobilinogen Qn (U) 0.2 {Temo'U}/dL Normal 0.2 - 1. 0 [facility] Comment on above: Performed By: #### U MICRO, ERUR #### [facility] [address] [place] [address] Dr. Andrea Garcia LACTATE/LACTIC ACIDon 2022 Lactate [Moles/Vol] 0.8 mmol/L Normal 0.4-2.0 [facility] Comment on above: Performed By: #### L ACT #### [facility] [address] [place] [address] Dr. Andrea Garcia Lactate [Moles/Vol] 0.9 mmol/L Normal 0.4-2.0 [facility] Comment on above: Performed By: #### L ACT #### [facility] [address] [address] [address] Andrea Garcia LIPASEon 01-10-2023 Lipase [Catalytic activity/Vol] 71.0 U/L Critically low 73.0-393.0 [facility] Comment on above: Performed By: #### C MADM, CMP, DAMIEN, LIPA ####[facility] [address] [address]DrWilder Garcia PROF 14(COMP METB)on 023 Albumin [Mass/Vol] 3.2 g/dL Critically low 3.4-5.0 [facility] Comment on above: Performed By: #### C MADM, CMP, DAMIEN, LIPA ####[facility] [address] [address]Dr. Andrea Garcia Albumin/Globulin [Mass ratio] 0.9 {ratio} Normal [facility] Comment on above: Performed By: #### C MADM, CMP, DAMIEN, LIPA ####[facility] [address] [address]DrWilder Garcia ALP [Catalytic activity/Vol] 68 U/L Normal 46-116 [facility] Comment on above: Performed By: #### C MADM, CMP, DAMIEN, LIPA ####[facility] [address] [address]DrWilder Garcia ALT [Catalytic activity/Vol] 30 U/L Normal 16-63 [facility] Comment on above: Performed By: #### C MADM, CMP, DAMIEN, LIPA ####[facility] [address] [address]DrWilder Garcia Anion gap [Moles/Vol] 14.2 mmol/L Normal [facility] Comment on above: Performed By: #### C MADM, CMP, DAMIEN, LIPA ####[facility] [address] [address]Dr. Andrea Garcia AST [Catalytic activity/Vol] 18 U/L Normal 15-37 [facility] Comment on above: Performed By: #### C MADM, CMP, DAMIEN, LIPA ####[facility] [address] [address]Dr. Andrea Garcia Bilirubin [Mass/Vol] 0.5 mg/dL Normal 0.2-1.0 [facility] Comment on above: Performed By: #### C MADM, CMP, DAMIEN, LIPA ####[facility] [address] [address]Dr. Andrea Garcia Calcium [Mass/Vol] 8.5 mg/dL Normal 8.5-10.1 [facility] Comment on above: Performed By: #### C MADM, CMP, DAMIEN, LIPA ####[facility] [address] [address]Dr. Andrea Garcia Chloride [Moles/Vol] 108 mmol/L Critically high 98-107 [facility] Comment on above: Performed By: #### C MADM, CMP, DAMIEN, LIPA ####[facility] [address] [address]Dr. Andrea Garcia CO2 [Moles/Vol] 22.1 mmol/L Normal 21.0-32.0 [facility] Comment on above: Performed By: #### C MADM, CMP, DAMIEN, LIPA ####[facility] [address] [address]Dr. Andrea Garcia Creatinine [Mass/Vol] 1.06 mg/dL Normal 0.70-1.30 [facility] Comment on above: Performed By: #### C MADM, CMP, DAMIEN, LIPA ####[facility] [address] [address]Dr. Andrea Garcia EGFR-AF EQUATORIAL GUINEAN >60 Normal >=60 [facility] Comment on above: Performed By: #### C MADM, CMP, DAMIEN, LIPA ####[facility] [address] [address]Dr. Andrea Garcia EGFR-NON AF EQUATORIAL GUINEAN >60 Normal >=60 [facility] Comment on above: Performed By: #### C MADM, CMP, DAMIEN, LIPA ####[facility] [address] [address]Dr. Andrea Garcia Globulin (S) [Mass/Vol] 3.5 g/dL Normal [facility] Comment on above: Performed By: #### C MADM, CMP, DAMIEN, LIPA ####[facility] [address] [address]Dr. Andrea Garcia Glucose [Mass/Vol] 110 mg/dL Critically high 74-106 [facility] Comment on above: Performed By: #### C MADM, CMP, DAMIEN, LIPA ####[facility] [address] [address]Dr. Andrea Garcia Potassium [Moles/Vol] 4.3 mmol/L Normal 3.5-5.1 [facility] Comment on above: Performed By: #### C MADM, CMP, DAMIEN, LIPA ####[facility] [address] [address]Dr. Andrea Garcia Protein [Mass/Vol] 6.7 g/dL Normal 6.4-8.2 [facility] Comment on above: Performed By: #### C MADM, CMP, DAMIEN, LIPA ####[facility] [address] [address]Dr. Andrea Garcia Sodium [Moles/Vol] 140 mmol/L Normal 136-145 [facility] Comment on above: Performed By: #### C MADM, CMP, DAMIEN, LIPA ####[facility] [address] [address]Dr. Andrea Garcia Urea nitrogen [Mass/Vol] 20.0 mg/dL Critically high 7.0-18.0 [facility] Comment on above: Performed By: #### C MADM, CMP, DAMIEN, LIPA ####[facility] [address] [address]Dr. Andrea Garcia Urea nitrogen/Creatinine [Mass ratio] 18.9 mg/mg Normal [facility] Comment on above: Performed By: #### C MADM, CMP, DAMIEN, LIPA ####[facility] [address] [address]Dr. Andrea Garcia URINE MICROSCOPIC ONLYon BACTERIA NONE SEEN Normal NONE SEEN [facility] Comment on above: Performed By: #### U MICRO, ERUR #### [facility] [address] [address] [address] Andrea Garcia Bacteria identified Cx Nom (U) NOT INDICATED Normal [facility] Comment on above: Performed By: #### U MICRO, ERUR #### [facility] [address] [address] [address] Andrea Garcia CAST NONE SEEN Normal NONE SEEN [facility] Comment on above: Performed By: #### U MICRO, ERUR #### [facility] [address] [place] [address] Dr. Andrea Garcia Crystals LM Nom (Urine sed) NONE SEEN Normal NONE SEEN [facility] Comment on above: Performed By: #### U MICRO, ERUR #### [facility] [address] [address] [address] Andrea Garcia Epithelial cells LM Ql (Urine sed) NONE SEEN Normal NONE SEEN /RARE [facility] Comment on above: Performed By: #### U MICRO, ERUR #### [facility] [address] [place] [address] Dr. Andrea Garcia MUCOUS NONE SEEN Normal NONE SEEN [facility] Comment on above: Performed By: #### U MICRO, ERUR #### [facility] [address] [address] [address] Andrea Garcia RBC 0-2 Normal 0-2 [facility] Comment on above: Performed By: #### U MICRO, ERUR #### [facility] [address] [address] [address] Andrea Garcia WBC 0-2 Abnormal NONE SEEN [facility] Comment on above: Performed By: #### U MICRO, ERUR #### [facility] [address] [place] [address] Dr. Andrea Garcia XR CHEST 1 Von 01-10-2023 XR CHEST 1 V Exam: Radiographs: X R CHEST 1 V Reason for exam: Nausea/vomiting Comparison: None IMPRESSION: Negative chest. Electronically authenticated by: ADITYA OATES Date: 2023-01-10 07:42 Normal [facility] MRI Soft Tissue Neck w/o + w /on 10-06-2021 MRI Soft Tissue Neck w/o + w/ HISTORY: 2 months of foreign body sensation in throat. Concern for soft palate mass on the left. R22.0 Localized swelling, mass and lump, head. COMPARISON: CT soft tissue neck 09/28/2021 TECHNIQUE: Multiplanar multisequence MRI of the soft tissues of the neck was performed without and with contrast. FINDINGS: There is slight asymmetric prominence of the soft palate on the left however there is no enhancing soft tissue mass identified of the soft palate. No tongue or tongue base mass. Visualized orbital contents appear within normal limits. Paranasal sinuses are clear. Parotid and submandibular glands appear within normal limits. No cervical chain lymphadenopathy. Mastoid air cells are clear. Degenerative changes are identified of the cervical spine including possible high-grade stenosis at C3-C4 and C4-C5, findings that are incompletely evaluated on this examination would be better evaluated with cervical spine MRI without contrast. IMPRESSION: Slight asymmetric prominence of the soft palate on the left however no enhancing soft tissue mass of the palate identified. Direct visualization is recommended. Report reported and signed by KENN RAPHAEL on 10/06/2021 1605 Normal [facility] Specialist CT Soft Tissue Neck w/ Contr ast*on 09-28-2021 CT Soft Tissue Neck w/ Contrast* CLINICAL HISTORY: Globus sensation ??2 months COMPARISON: None. TECHNIQUE: Contiguous helical scans from the skull base to the aortic arch following bolus injection of contrast. CONTRAST: 100 mL of Isovue [address] scans at this facility used dose modulation, iterative reconstruction, and/or weight-based dosing when appropriate to reduce radiation dose to as low as reasonably achievable. RESULT: Neck: In the soft palate there is asymmetric parapharyngeal soft tissue on the left (image 37 of 88 and image's 46 through 51 of 106). The hard palate appears thickened. Vallecula and epiglottis are within normal limits and the pre-epiglottic fat is maintained. Parotid and submandibular glands are normal in appearance. Thyroid gland unremarkable. Carotid arteries and jugular veins are patent bilaterally. Remainder of the facial spaces of the neck and contents are normal. Cervical lymph nodes: No lymphadenopathy by size criteria. Brain: Visualized intracranial contents are normal in appearance. Orbits are grossly normal. Visualized paranasal sinuses are clear. Mastoid air cells are well aerated bilaterally. Lung apices: Imaged lung apices are unremarkable. Infraglottic airway is patent. Bones: Degenerative changes are seen are seen in the spine at multiple levels. Intravertebral disc space narrowing sclerosis and large anterior osteophytes are seen. There is also straightening of the spine. IMPRESSION: Asymmetry of the soft palate on the left is seen. Recommend direct visualization for further evaluation. Report reported and signed by Que Greene on 09/29/2021 1013 Normal [facility] Analyst Vital Signs Date Time Vital Sign Value Performing Clinician Ethan liu 03-03-2023 13:30-0400 Diastolic blood pressure 100 mm[Hg] MD Rodriguez Godwin Work Phone: [facility] 03-03-2023 13:30-0400 Heart rate 59 /min MD Rodriguez Godwin Work Phone: [facility] 03-03-2023 13:30-0400 Respiratory rate 18 /min MD Rodriguez Godwin Work Phone: [facility] 03-03-2023 13:30-0400 SaO2% (BldA) [Mass fraction] 99 % MD Rodriguez Godwin Work Phone: [facility] 03-03-2023 13:30-0400 Systolic blood pressure 160 mm[Hg] MD Rodriguez Godwin Work Phone: [facility] 03-03-2023 11:36-0400 Body height 175.26 cm MD Rodriguez Godwin Work Phone: [facility] 03-03-2023 11:36-0400 Body temperature 98 [degF] MD Rodriguez Godwin Work Phone: [facility] 03-03-2023 11:36-0400 Body weight 84.3 kg MD Rodriguez Godwin Work Phone: [facility] Encounters Encounter Date Encounter Type Care Provider Facility Start: 06-07-2023 End: 06-07-2023 ambulatory SHIV CALVILLOO [facility] Start: 05-27-2023 End: 05-27-2023 ambulatory [facility] Start: 04-06-2023 ambulatory [facility] Start: 04-06-2023 End: 04-06-2023 ambulatory [facility] Start: 03-21-2023 End: 03-21-2023 ambulatory MATTIE AVALOS [facility] Start: 03-03-2023 End: 03-03-2023 Emergency department patient visit Rodriguez Godwin Facility:[facility] Start: 03-03-2023 End: 03-03-2023 Emergency department patient visit MD Rodriguez Godwin Work Phone: [facility] Work Phone: Start: 01-10-2023 End: 01-11-2023 Evaluation and management of inpatient DR DOCTOR CROCKER Facility:[facility]1 Procedures Date Procedure Procedure Detail Performing Clinician Start: 03-03-2023 Plain chest X-ray MD Valdivia Work Phone: Plan of Treatment Date Care Activity Detail Author Patient Education Syncope (faint ing) Anxiety, Adult ED [facility] Work Phone: Patient referral [facility] Work Phone: Payers Date Payer Category Payer Self-pay [id number] 1960 Medicare [id number] 1950 Unknown [id number] Unknown [id number] Social History Date Type Detail Facility Start: [facility]-03-[facility]23 [facility] Start: 1950 Sex Assigned At Male F [facility] Clinical Notes 03-15-2023 to 06-07-2023 Note Date & Type Note Facility 06-07-2023 Note [facility] Consult Note Reason for visit: NSVT HPI: Jeb Riddle is a 72 y.o. year old with past medical history of nonobstructive CAD, hypertension was previously seen by Dr. Jessica Orellana. He was noted to have nonsustained VT on EKG monitoring in the past and at that time and undergone a cardiac cath on 04/06/2023. Given the nonobstructive CAD he was placed on aspirin and statin. He had a event monitor placed from 04/13/2023 to 05/13/2023 this had revealed evidence of wide-complex tachycardia for about 3 seconds on 05/06/2023 at 12 PM but other than that there were multiple episodes of nonsustained atrial tachycardia seen. Patient is very active and regularly does biking. he states that he had previous episodes of syncope which were either related to volume depletion as he has underlying Crohn's disease and one of the episodes was related to vasovagal syncope as a result of extreme pain. he is otherwise active and does not endorse any syncope and states that he is reasonably doing well after having the monitor taken off. is currently on Toprol-XL 25 mg once daily. PMH: Past Medical History: Diagnosis Date Chest pain Hypertension PSH: Past Surgical History: Procedure Laterality Date BOWEL RESECTION SH: Social Determinants of Health Tobacco Use: Medium Risk (03/21/2023) Patient History Smoking Tobacco Use: Former Smokeless Tobacco Use: Never Passive Exposure: Not on file Alcohol Use: Not on file Financial Resource Strain: Not on file Food Insecurity: Not on file Transportation Needs: Not on file Physical Activity: Not on file Stress: Not on file Social Connections: Not on file Intimate Partner Violence: Not on file Depression: Not on file Housing Stability: Not on file Allergies: No Known Allergies Weight: 83.9kg Visit Vitals BP 169/70 (BP Location: Right arm, Patient Position: Sitting) Pulse 69 Ht 1.88 m (6' 2 ) Wt 83.9 kg (185 lb) SpO2 96% BMI 23.75 kg/m??? Smoking Status Former BSA 2.09 m??? Meds: Current Outpatient Medications on File Prior to Visit Medication Sig Dispense Refill aspirin 81 mg EC tablet Take 81 mg by mouth in the morning. atorvastatin (Lipitor) 40 mg tablet Take 1 tablet (40 mg) by mouth in the morning. 90 tablet 3 isosorbide mononitrate ER (Imdur) 30 mg 24 hr tablet Take 30 mg by mouth in the morning. Do not crush or chew. lisinopril 40 mg tablet Take 1 tablet (40 mg) by mouth in the morning. 30 tablet 5 LORazepam (Ativan) 1 mg tablet every 12 (twelve) hours. magnesium 30 mg tablet Take 30 mg by mouth in the morning and at bedtime. mesalamine (Delzicol) [address] capsule Take 2 capsules by mouth in the morning and at bedtime. metoprolol succinate XL (Toprol-XL) 25 mg 24 hr tablet Take 1 tablet (25 mg) by mouth in the morning. Do not crush or chew. 90 tablet 3 traZODone (Desyrel) 50 mg tablet 0.5 tablet Orally bedtime as needed No current facility-administered medications on file prior to visit. ROS: Cardio Basic Cardiovascular Symptoms: no lightheadedness, no leg edema, no syncope, no orthopnea, no PND, no claudication, Constitutional Constitutional: no fever, no night sweats, no significant weight gain, no significant weight loss, no exercise intolerance Eyes Eyes: no dry eyes, no irritation, no vision change ENMT Ears: no difficulty hearing, no ear pain Nose: no frequent nosebleeds, Mouth/Throat: no sore throat, no bleeding gums, no snoring, no dry mouth, no mouth ulcers, no oral abnormalities, no teeth problems Respiratory Respiratory: no cough, no wheezing, no coughing up blood, no sleep apnea Musculoskeletal Musculoskeletal: no muscle aches, no muscle weakness, joint pain+, no back pain, no swelling in the extremities Integumentary Skin no rash, no ulcer, no varicosities, no discoloration, no pruritus Neurologic Neurologic: no loss of consciousness, no weakness, no numbness, no seizures, no dizziness, no headaches Psychiatric Psych: no depression, feeling safe in relationship, no alcohol abuse, Hematologic/Lymphatic Hematologic/Lymphatic no swollen glands, no bruising Physical Exam: Constitutional General Appearance: well-nourished, well-developed, appears stated age Level of Distress: comfortable Psychiatric Mental Status: alert, normal affect Orientation: oriented to time, place, and person Insight: good judgement Eyes Lids and Conjunctivae: non-injected, no xanthelasma ENMT Ears: no lesions on external ear Nose: no lesions on external nose Oropharynx: no cyanosis, no pallor Neck Neck: supple, trachea midline Carotid Arteries: bilateral normal upstroke, no bruits Jugular Veins: normal jugular venous pressure Thyroid: not enlarged Lungs Respiratory Effort: unlabored Chest Exam: normal curvature, no thoracic deformity Auscultation: clear, no wheezing, no rales, no rhonchi Cardiovascular Rate And Rhythm: regular Heart Sounds: norm (more content not included)... [facility] 05-27-2023 Note [place] [facility] - [facility] Subjective Jeb Riddle is a 72 y.o. year old male patient being seen for Follow-up and Coronary Artery Disease Patient Active Problem List Diagnosis Unstable angina (CMS/HCC) Uncontrolled hypertension Syncope and collapse Aortic valve regurgitation, nonrheumatic Nonrheumatic mitral valve regurgitation Diastolic dysfunction, left ventricle Chest pain Pain in limb Non-sustained ventricular tachycardia (CMS/HCC) VT (ventricular tachycardia) (CMS/HCC) Family History Problem Relation Name Age of Onset Diabetes Mother Coronary artery disease Mother Heart attack Father Diabetes Father Coronary artery disease Father Social History Tobacco Use Smoking status: Former Types: Cigarettes Smokeless tobacco: Never Substance Use Topics Alcohol use: Yes AILIN Rodas is seen in follow-up. He is a 72-year-old man who was evaluated in cardiology clinic because of symptoms of chest pain, syncope and evidence of nonsustained ventricular tachycardia on ECG monitoring. He underwent cardiac catheterization on 04/06/2023 which showed mild nonobstructive coronary disease for which she was recommended aspirin and statin therapy. He had a follow-up event monitor which he returned recently. The results of that are not available during this visit. He has a follow-up with Dr. Shiv Shirley from electrophysiology service in the next couple weeks. He is currently doing well. He denies chest pain. He has no shortness of breath on exertion. He has good exercise tolerance. He has not had any issues since the initial presentation and February 2023. He complains of leg pains with the statin therapy. He has stopped metoprolol due to feeling fatigued. Review of Systems Neurological: Positive for dizziness and light-headedness. Objective Visit Vitals BP 137/83 (BP Location: Left arm, Patient Position: Standing) Pulse 95 Wt 83.9 kg (185 lb) SpO2 96% BMI 23.75 kg/m??? Smoking Status Former BSA 2.09 m??? Physical Exam Constitutional: Appearance: He is well-developed. He is not ill-appearing. HENT: Head: Normocephalic and atraumatic. Nose: Nose normal. Eyes: General: No scleral icterus. Pupils: Pupils are equal, round, and reactive to light. Neck: Thyroid: No thyromegaly. Vascular: No JVD. Cardiovascular: Rate and Rhythm: Normal rate and regular rhythm. Pulses: Radial pulses are 2+ on the right side and 2+ on the left side. Heart sounds: Normal heart sounds. No murmur heard. No friction rub. No gallop. Pulmonary: Effort: Pulmonary effort is normal. No respiratory distress. Breath sounds: Normal breath sounds. No wheezing or rales. Chest: Chest wall: No tenderness. Abdominal: General: Bowel sounds are normal. There is no distension. Palpations: Abdomen is soft. Tenderness: There is no abdominal tenderness. Musculoskeletal: General: No swelling. Cervical back: Neck supple. Skin: General: Skin is warm and dry. Neurological: General: No focal deficit present. Mental Status: He is alert and oriented to person, place, and time. Psychiatric: Mood and Affect: Mood normal. Behavior: Behavior is cooperative. Judgment: Judgment normal. Allergies No Known Allergies Medications Current Outpatient Medications: aspirin 81 mg EC tablet, Take 81 mg by mouth in the morning., Disp: , Rfl: atorvastatin (Lipitor) 40 mg tablet, Take 1 tablet (40 mg) by mouth in the morning., Disp: 90 tablet, Rfl: 3 isosorbide mononitrate ER (Imdur) 30 mg 24 hr tablet, Take 30 mg by mouth in the morning. Do not crush or chew., Disp: , Rfl: lisinopril 40 mg tablet, Take 1 tablet (40 mg) by mouth in the morning., Disp: 30 tablet, Rfl: 5 LORazepam (Ativan) 1 mg tablet, every 12 (twelve) hours., Disp: , Rfl: magnesium 30 mg tablet, Take 30 mg by mouth in the morning and at bedtime., Disp: , Rfl: mesalamine (Delzicol) [address] capsule, Take 2 capsules by mouth in the morning and at bedtime., Disp: , Rfl: traZODone (Desyrel) 50 mg tablet, 0.5 tablet Orally bedtime as needed, Disp: , Rfl: metoprolol succinate XL (Toprol-XL) 25 mg 24 hr tablet, Take 1 tablet (25 mg) by mouth in the morning. Do not crush or chew., Disp: 90 tablet, Rfl: 3 Recent Labs Admission on 04/06/2023, Discharged on 04/06/2023 Component Date Value Sodium 03/31/2023 140 Potassium 03/31/2023 4.8 Chloride 03/31/2023 108 Glucose 03/31/2023 98 BUN, Bld 03/31/2023 18 Creatinine 03/31/2023 1.14 Calcium 03/31/2023 8.9 Ventricular Rate 04/06/2023 80 Atrial Rate 04/06/2023 80 ND Interval 04/06/2023 176 QRS DURATION 04/06/2023 98 QT Interval 04/06/2023 396 QTC CALCULATION(BAZETT) 04/06/2023 456 P Encinal 04/06/2023 79 R-Encinal 04/06/2023 75 T Wave Encinal 04/06/2023 73 Imaging and other tests Cardiac catheterization 04/06/2023: Impression/Findings: Coronary angiogram shows non-obstructive coronary artery disease. Plan: Medical therapy for (more content not included)... [facility] 04-06-2023 Note Yes he should. For s yncope he needs a 30d monitor. Can we set him up with a visit either with me or dr. Shirley and 30d monitor please, can do monitor at visit or prior to, whichever works best [facility] 04-06-2023 Note Patient: Jeb lamb Procedure Information Date/Time: 04/06/23 1400 Procedure: Coronary angiography (Left) Location: [facility] / [facility] (Cath) Providers: Jessica Forrester MD Clinical information reviewed: Allergies Meds Physical Exam Airway Mallampati: III Cardiovascular Rhythm: regular Rate: normal Dental Pulmonary Breath sounds clear to auscultation Abdominal Abdomen: soft Anesthesia Plan ASA 3 other (Conscious Sedation) intravenous induction Anesthetic plan and risks discussed with patient. Use of blood products discussed with patient who consented to blood products. Plan discussed with attending. Additional Equipment Requests [facility] 03-21-2023 Note Will continue to mon itor with routine echocardiograms. [facility] 03-21-2023 Note Currently euvolemic without and volume overload Elevated rt disided pressures may be r/t pulmonary process in light of + smoking. [facility] 03-21-2023 Note Will continue to monitor. Stephane mccarthy [facility] 03-21-2023 Note Resume metoprolol 50 mg po bid for arrythmia management Plan for cardiac cath and may need evaluation with EP [facility] 03-21-2023 Note Hypertension is impr jc but he stopped taking metoprolol 100 mg bid r\t fatigue. Will resume metoprolol at 50 mg bid and increase lisinopril to 40 mg daily. Repeat BMP in 1 week [facility] 03-21-2023 Note In light of unstable angina with uncontrolled HTN, multiple syncopal episodes and NSVT will send pt for heart cath- Lt Cors and cancel stress test at this time for ischemic evaluation. [facility] 03-21-2023 Note In light pt admits 2 episodes of syncope while on vacation in [place] with his daughter- denied any symptoms prior to waking up on the floor- broke 3 front teeth in one episode. [facility] 03-21-2023 Note UTP CARDIOLOGY PROGR ESS NOTE HPI: Jeb Riddle is a 72 y.o. male here for hospital f/U after recent inpt at [facility] for chest pain, uncontrolled HTN HPI Pt states that his b/p at home is much improved and typically 140's/80's, denied chest pain, syncope, palpitations, NARANJO or orthopnea. States that he has continued to bike ride about 10 miles/day without any limiting symptoms. Pt admits that while on vacation in [place] with his daughter recently he had 2 episodes of syncope and collapse- denied any symptoms prior to episode- denied chest pain, SOB or palpitations. Was evaluated in [facility] ED recently for near syncope. Reports that he stopped taking metoprolol 100 mg bid r/t fatigue- I was unable to get out of bed. Review of Systems Constitutional: Negative. Respiratory: Negative. Cardiovascular: Negative. Neurological: Negative. All other systems reviewed and are negative. Inpt consult- 03/14/23 (admitted 03/13/23-03/14/23) Hospital DC summary- 02/25/23-02/26/23 Visit Vitals BP 142/82 (BP Location: Left arm, Patient Position: Sitting) Pulse 77 Ht 1.88 m (6' 2 ) Wt 83.5 kg (184 lb) SpO2 97% BMI 23.62 kg/m??? Smoking Status Former BSA 2.09 m??? No Known Allergies Medications: Current Outpatient Medications on File Prior to Visit Medication Sig Dispense Refill aspirin 81 mg EC tablet Take 81 mg by mouth in the morning. isosorbide mononitrate ER (Imdur) 30 mg 24 hr tablet Take 30 mg by mouth in the morning. Do not crush or chew. LORazepam (Ativan) 1 mg tablet every 12 (twelve) hours. mesalamine (Delzicol) [address] capsule 2 capsules. traZODone (Desyrel) 50 mg tablet 0.5 tablet Orally bedtime as needed [DISCONTINUED] lisinopril 10 mg tablet Take 10 mg by mouth in the morning and at bedtime. No current facility-administered medications on file prior to visit. Physical Exam: Constitutional: Appearance: Normal appearance. Without apparent distress HENT: Head: Normocephalic and atraumatic. Nose: Nose normal. Mouth/Throat: Mouth: Mucous membranes are moist. Eyes: Extraocular Movements: Extraocular movements intact. Conjunctiva/sclera: Conjunctivae normal. Neck: Vascular: No JVD. Cardiovascular: Rate and Rhythm: Normal rate and regular rhythm. Pulses: Dorsalis pedis pulses are 3 on the right side and 3on the left side. Posterior tibial pulses are 3 on the right side and 3 on the left side. Heart sounds: Normal heart sounds, S1 normal and S2 normal. Pulmonary: Effort: Pulmonary effort is normal. Breath sounds: Normal breath sounds. Abdominal: General: Bowel sounds are normal. Palpations: Abdomen is soft. Musculoskeletal: General: Normal range of motion. Cervical back: Normal range of motion. Right lower leg: No edema. Left lower leg: No edema. Skin: General: Skin is warm and dry. Capillary Refill: Capillary refill takes less than 2 seconds. Neurological: General: No focal deficit present. Mental Status: alert and oriented to person, place, and time. Psychiatric: Mood and Affect: Mood normal. Behavior: Behavior normal. Thought Content: Thought content normal. Judgment: Judgment normal. Labs: Last lab values have been reviewed CV Testin03/14/23 Echo Holter monitor 03/02/23-03/08/23 Carotid US- 0-49% flow stenosis b/l internal Carotid arteries No echocardiogram results found for the past 12 months Assessment/Plan: Syncope and collapse In light pt admits 2 episodes of syncope while on vacation in [place] with his daughter- denied any symptoms prior to waking up on the floor- broke 3 front teeth in one episode. Unstable angina (CMS/HCC) In light of unstable angina with uncontrolled HTN, multiple syncopal episodes and NSVT will send pt for heart cath- Lt Cors and cancel stress test at this time for ischemic evaluation. Uncontrolled hypertension Hypertension is improved but he stopped taking metoprolol 100 mg bid r\t fatigue. Will resume metoprolol at 50 mg bid and increase lisinopril to 40 mg daily. Repeat BMP in 1 week Non-sustained ventricular tachycardia (CMS/HCC) Resume metoprolol 50 mg po bid for arrythmia management Plan for cardiac cath and may need evaluation with EP Nonrheumatic mitral valve regurgitation Will continue to monitor. Diastolic dysfunction, left ventricle Currently euvolemic without and volume overload Elevated rt disided pressures may be r/t pulmonary process in light of + smoking. Aortic valve regurgitation, nonrheumatic Will continue to monitor with routine echocardiograms. RTC post cath [facility] 03-21-2023 Note Patient here for [facility] for chest pain and hypertension. Says the isosorbide has helped a lot. Denies SOB, palpitations, and syncope. Feels much better s/p hospital discharge. Review of Systems All other systems reviewed and are negative. [facility] 03-21-2023 Note UTP CARDIOLOGY PROGR ESS NOTE HPI: Jeb Riddle is a 72 y.o. male here for hospital f/U after recent inpt at [facility] for chest pain, uncontrolled HTN HPI Pt states that his b/p at home is much improved and typically 140's/80's, denied chest pain, syncope, palpitations, NARANJO or orthopnea. States that he has continued to bike ride about 10 miles/day without any limiting symptoms. Pt admits that while on vacation in [place] with his daughter recently he had 2 episodes of syncope and collapse- denied any symptoms prior to episode- denied chest pain, SOB or palpitations. Was evaluated in [facility] ED recently for near syncope. Reports that he stopped taking metoprolol 100 mg bid r/t fatigue- I was unable to get out of bed. Review of Systems Constitutional: Negative. Respiratory: Negative. Cardiovascular: Negative. Neurological: Negative. All other systems reviewed and are negative. Inpt consult- 03/14/23 (admitted 03/13/23-03/14/23) Hospital DC summary- 02/25/23-02/26/23 Visit Vitals BP 142/82 (BP Location: Left arm, Patient Position: Sitting) Pulse 77 Ht 1.88 m (6' 2 ) Wt 83.5 kg (184 lb) SpO2 97% BMI 23.62 kg/m??? Smoking Status Former BSA 2.09 m??? No Known Allergies Medications: Current Outpatient Medications on File Prior to Visit Medication Sig Dispense Refill aspirin 81 mg EC tablet Take 81 mg by mouth in the morning. isosorbide mononitrate ER (Imdur) 30 mg 24 hr tablet Take 30 mg by mouth in the morning. Do not crush or chew. LORazepam (Ativan) 1 mg tablet every 12 (twelve) hours. mesalamine (Delzicol) [address] capsule 2 capsules. traZODone (Desyrel) 50 mg tablet 0.5 tablet Orally bedtime as needed [DISCONTINUED] lisinopril 10 mg tablet Take 10 mg by mouth in the morning and at bedtime. No current facility-administered medications on file prior to visit. Physical Exam: Constitutional: Appearance: Normal appearance. Without apparent distress HENT: Head: Normocephalic and atraumatic. Nose: Nose normal. Mouth/Throat: Mouth: Mucous membranes are moist. Eyes: Extraocular Movements: Extraocular movements intact. Conjunctiva/sclera: Conjunctivae normal. Neck: Vascular: No JVD. Cardiovascular: Rate and Rhythm: Normal rate and regular rhythm. Pulses: Dorsalis pedis pulses are 3 on the right side and 3on the left side. Posterior tibial pulses are 3 on the right side and 3 on the left side. Heart sounds: Normal heart sounds, S1 normal and S2 normal. Pulmonary: Effort: Pulmonary effort is normal. Breath sounds: Normal breath sounds. Abdominal: General: Bowel sounds are normal. Palpations: Abdomen is soft. Musculoskeletal: General: Normal range of motion. Cervical back: Normal range of motion. Right lower leg: No edema. Left lower leg: No edema. Skin: General: Skin is warm and dry. Capillary Refill: Capillary refill takes less than 2 seconds. Neurological: General: No focal deficit present. Mental Status: alert and oriented to person, place, and time. Psychiatric: Mood and Affect: Mood normal. Behavior: Behavior normal. Thought Content: Thought content normal. Judgment: Judgment normal. Labs: Last lab values have been reviewed CV Testin03/14/23 Echo Holter monitor 03/02/23-03/08/23 Carotid US- 0-49% flow stenosis b/l internal Carotid arteries No echocardiogram results found for the past 12 months Assessment/Plan: Syncope and collapse In light pt admits 2 episodes of syncope while on vacation in [place] with his daughter- denied any symptoms prior to waking up on the floor- broke 3 front teeth in one episode. Unstable angina (CMS/HCC) In light of unstable angina with uncontrolled HTN, multiple syncopal episodes and NSVT will send pt for heart cath- Lt Cors and cancel stress test at this time for ischemic evaluation. Uncontrolled hypertension Hypertension is improved but he stopped taking metoprolol 100 mg bid r\t fatigue. Will resume metoprolol at 50 mg bid and increase lisinopril to 40 mg daily. Repeat BMP in 1 week Non-sustained ventricular tachycardia (CMS/HCC) Resume metoprolol 50 mg po bid for arrythmia management Plan for cardiac cath and may need evaluation with EP Nonrheumatic mitral valve regurgitation Will continue to monitor. Diastolic dysfunction, left ventricle Currently euvolemic without and volume overload Elevated rt disided pressures may be r/t pulmonary process in light of + smoking. Aortic valve regurgitation, nonrheumatic Will continue to monitor with routine echocardiograms. RTC post cath [facility] 03-15-2023 Note Pt was seen as new c onsult at [facility] yesterday for chest pain, Unstable angina, uncontrolled HTN, h/o crohns and former smoker. Troponin levels were all negative, EKG without significant ST or T wave changes. Medications were adjusted to manage HTN better and pt has close F/U appt with cardiology. Plan for outpt stress test- treadmill cardiolite after D/W Dr Forrester- interventionalist to assess for any significant ischemia. Echocardiogram was completed yesterday and was pending final reading. Stress test ordered. Mattie Avalos NP Division of Cardiology, [facility]- [phone] Pager- [phone] Email- [email or web address] note No assessment information availa [facility] Work Phone: Summary Purpose Family History No Family History Records Found Relationship Condition Age at Onset Recorded Date/T arline Not Specified No pertinent family history Unknown Advance Directives No Advanced Directives Records Found Advance Directive Response Recorded Date/ Time Advance Directives No September 06, 2019 7:32am Chief Complaint and Reason for Visit Chief Complaint chest discomfort Additional Source Comments (unrecognized sect ion and content) No Status Records FoundNo Status Records FoundNo Status Records FoundNo Status Records Found INFORMATION SOURCE (unrecogn ized section and content) DATE CREATED AUTHOR 10/07/2021 [facility] dical Specialist DATE CREATED AUTHOR AUTHOR'S ORGANIZ ATION 01/21/2023 [facility] DATE CREATED AUTHOR AUTHOR'S ORGANIZ ATION 03/16/2023 [facility] DATE CREATED AUTHOR AUTHOR'S ORGANIZ ATION 06/08/2023 [facility] Care Teams (unrecognized sec tion and content) Team Status: Active Member Role Status Dates Rodriguez Godwin MD Primary Care Provider Active Team Status: Inactive Member Role Status Dates Rodriguez Godwin MD Primary Care Provider Active Ramiro Cortez DO Emergency Provider Active Goals (unrecognized section and content) Goals may be documented in a n alternate section FOR RECORDS PERTAINING TO PATIENTS WHO ARE OR HAVE BEEN ENROLLED IN A CHEMICAL DEPENDENCY/SUBSTANCEABUSE PROGRAM, SOME INFORMATION MAY BE OMITTED. This clinical summary was aggregated from multiple sources. Caution should be exercised in using it in the provision of clinical care. This summary normalizes information from multiple sources, and as a consequence, information in this document may materially change the coding, format and clinical context of patient data. In addition, data may be omitted in some cases. CLINICAL DECISIONS SHOULD BE BASED ON THE PRIMARY CLINICAL RECORDS. [facility] [employer] [facility]. provides no warranty or guarantee of the accuracy or completeness of information in this document.
[2023-11-01 20:21] LABS: Basophils Percent Auto 0.5 % (0.2-2.0); Eosinophils Absolute Auto 0.1 10^3/uL (0.0-0.7); Eosinophils Percent Auto 1.6 % (0.9-7.0); Hematocrit 40.6 % (42.0-54.0); Hemoglobin 13.5 g/dL (14.0-18.0); Immature Granulocytes Abs Auto 0.02 10^3/uL (0.00-0.03); Immature Granulocytes Pct Auto 0.3 % (0.0-0.5); Lymphocytes Absolute Auto 1.3 10^3/uL (1.2-3.8); Lymphocytes Percent Auto 17.3 % (20.5-60.0); Mean Corpuscular HGB Conc 33.3 g/dL (29.9-35.2); Mean Corpuscular Volume 93.3 fL (80.0-94.0); Mean Platelet Volume 9.7 fL (9.5-13.5); Monocytes Absolute Auto 0.3 10^3/uL (0.3-0.8); Monocytes Percent Auto 4.2 % (1.7-12.0); Neutrophils Absolute Auto 5.8 10^3/uL (1.4-6.5); Neutrophils Percent Auto 76.1 % (43.0-75.0); Platelet Count 253 10^3/uL (150-450); Red Blood Count 4.35 10^6/uL (4.70-6.10); Red Cell Distribution Width 12.6 % (11.0-15.0); White Blood Count 7.7 10^3/uL (4.0-11.0)
[2023-11-01 20:29] LABS: Alanine Aminotransferase 31 U/L (16-63); Albumin Level 3.2 g/dL (3.4-5.0); Alkaline Phosphatase 73 U/L (46-116); Anion Gap 13.3; Aspartate Amino Transferase 18 U/L (15-37); BUN Creatinine Ratio 14.8; Bilirubin Total 0.3 mg/dL (0.2-1.0); Calcium 8.5 mg/dL (8.5-10.1); Carbon Dioxide 26.1 mmol/L (21.0-32.0); Chloride 104 mmol/L (98-107); Estimated GFR (African America >60 (>=60); Estimated GFR (Non-African Ame 58 (>=60); Globulin 3.1 g/dL; Glucose 135 mg/dL (74-106); Potassium 4.4 mmol/L (3.5-5.1); Sodium 139 mmol/L (136-145); Total Protein 6.3 g/dL (6.4-8.2)
--- NOTE | 2023-11-01 20:37 | ED_ITS ---
HPI - Abdominal Pain General Chief Complaint: Abdominal Pain Stated Complaint: Constipation Time Seen by Provider: 11/01/23 19:41 Source: patient Mode of arrival: walk-in Limitations: no limitations History of Present Illness HPI narrative: Patient presents with mid abdominal pain and concern for bowel obstruction. He has Crohn's disease. He said that he knows what it feels like when I get a bowel obstruction . He said the symptoms started around 4pm today. He last passed gas around that time. Nausea and vomited once. Diffuse abdominal pain without radiation. No urinary symptoms or hematuria. Related Data Home Medications ?Medication ?Instructions ?Recorded ?Confirmed lisinopril 5 mg tablet 10 mg PO BID 02/25/23 09/02/23 mesalamine 400 mg capsule (with 800 mg PO BID 02/25/23 09/02/23 delayed release tablets inside) desvenlafaxine succinate 50 mg 50 mg PO DAILY 03/14/23 09/02/23 tablet,extended release 24 hr ondansetron 8 mg disintegrating 8 mg PO Q8H PRN nausea and vomiting 09/02/23 09/02/23 tablet Previous Rx's ?Medication ?Instructions ?Recorded aspirin 325 mg tablet 325 mg PO DAILY #30 tabs 03/14/23 isosorbide mononitrate 30 mg 30 mg PO QAM #30 tabs 03/14/23 tablet,extended release 24 hr ciprofloxacin HCl 500 mg tablet 500 mg PO Q12H #20 tabs 09/03/23 (Cipro) metronidazole 500 mg tablet 500 mg PO Q8H #30 tabs 09/03/23 prednisone 10 mg tablet 50 mg (5 x 10 mg) PO DAILY #47 tabs 09/03/23 Allergies Allergy/AdvReac Type Severity Reaction Status Date / Time Fish Containing Products AdvReac Severe Abdominal Verified 03/13/23 14:40 Pain PFSH PFSH Medical History (Updated 11/01/23 @ 22:57 by Nba Zabala) Dehydration ?E86.0 - Dehydration (ICD-10) DAVID (acute kidney injury) ?N17.9 - Acute kidney failure, unspecified (ICD-10) Abdominal pain ?R10.9 - Unspecified abdominal pain (ICD-10) Nausea & vomiting ?R11.2 - Nausea with vomiting, unspecified (ICD-10) Hypertension ?I10 - Essential (primary) hypertension (ICD-10) Crohn disease ?K50.90 - Crohn's disease, unspecified, without complications (ICD-10) Surgical History (Updated 03/13/23 @ 20:01 by Bita Cyr RN) History of bowel resection ?Z90.49 - Acquired absence of other specified parts of digestive tract (ICD- 10) Family History (Updated 03/13/23 @ 20:02 by Bita Cyr RN) Father Family history of COPD (chronic obstructive pulmonary disease) Family history of diabetes mellitus Family history of myocardial infarction Brother Family history of cancer Mother Family history of diabetes mellitus Other Family history of hypertension Social History Within the past year, how often did you have a drink containing alcohol: 2-3 times a week Within the past year, how many standard drinks containing alcohol did you have on a typical day: 1 or 2 Within the past year, how often did you have six or more drinks on one occasion: never Total score: 0 Score interpretation: A score less than 4 is consistent with normal alcohol consumption. 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 Little interest or pleasure in doing things: not at all Feeling down, depressed, or hopeless: not at all Feel stressed/tense/nervous/anxious/difficulty sleeping: not at all Do you think of yourself as: straight/heterosexual Gender Identity: male Exam Narrative Exam Narrative: Nurses notes and vital signs reviewed and patient is not hypoxic. afebrile General: Well-appearing and in no apparent distress. Skin: Warm, dry, no pallor noted. Eye: Pupils are equal, round and EOMI. No scleral icterus. Ears, Nose, Mouth, and Throat: Oral mucosa is moist Cardiovascular: Regular Rate and Rhythm without murmur, gallop or rub. Respiratory: No accessory muscle use or respiratory distress. Lungs are clear to auscultation, no wheezing, rales or rhonchi Back: No CVA tenderness Musculoskeletal: normal ROM, no calf or popliteal tenderness, no lower extremity edema/swelling GI: Abdomen is soft, non-distended. Normal bowel sounds. No masses appreciated. Diffuse tenderness to palpation. No rebound, guarding, or rigidity noted. Neurological: A&O x4. No cranial nerve dysfunction observed. No truncal ataxia. Moves all extremities. Sensation intact. Psychiatric: Cooperative and interactive. Normal mood and affect. She is likely she has got a person with so adult Constitutional Vital Signs, click to edit/add: Last Vital Signs Temp 97.7 F 11/01/23 19:39 Pulse 75 11/01/23 21:15 Resp 15 11/01/23 21:15 BP 185/100 H 11/01/23 22:01 Pulse Ox 95 11/01/23 20:42 O2 Del Method Room Air 11/01/23 19:39 Course Vital Signs Vital signs: Vital Signs Temperature 97.7 F 11/01/23 19:39 Pulse Rate 87 11/01/23 19:39 Respiratory Rate 18 11/01/23 19:39 Blood Pressure 190/90 H 11/01/23 19:39 Pulse Oximetry 96 11/01/23 19:39 Oxygen Delivery Method Room Air 11/01/23 19:39 Temperature 97.7 F 11/01/23 19:39 Pulse Rate 75 11/01/23 21:15 Respiratory Rate 15 11/01/23 21:15 Blood Pressure 185/100 H 11/01/23 22:01 Pulse Oximetry 95 11/01/23 20:42 Oxygen Delivery Method Room Air 11/01/23 19:39 MDM - Abdominal Pain MDM Narrative Medical decision making narrative: Peripheral IV established blood drawn and sent for testing. The patient told me that he has undergone a large number of CT scans in his past and would prefer not to have anymore. He was agreeable to acute abdominal series, Which we obtained. He was given normal saline IV fluid, IV Zofran and IV Dilaudid. . Lab Data Attestation: I reviewed the patient's lab results. Labs: Lab Results 11/01/23 Range/Units 20:05 WBC 7.7 (4.0-11.0) 10^3/uL RBC 4.35 L (4.70-6.10) 10^6/uL Hgb 13.5 L (14.0-18.0) g/dL Hct 40.6 L (42.0-54.0) % MCV 93.3 (80.0-94.0) fL MCH 31.0 (25.9-34.0) pg MCHC 33.3 (29.9-35.2) g/dL RDW 12.6 (11.0-15.0) % Plt Count 253 (150-450) 10^3/uL MPV 9.7 (9.5-13.5) fL Neut % (Auto) 76.1 H (43.0-75.0) % Lymph % (Auto) 17.3 L (20.5-60.0) % [place] % (Auto) 4.2 (1.7-12.0) % Eos % (Auto) 1.6 (0.9-7.0) % Baso % (Auto) 0.5 (0.2-2.0) % Neut # (Auto) 5.8 (1.4-6.5) 10^3/uL Lymph # (Auto) 1.3 (1.2-3.8) 10^3/uL [place] # (Auto) 0.3 (0.3-0.8) 10^3/uL Eos # (Auto) 0.1 (0.0-0.7) 10^3/uL Baso # (Auto) 0.0 (0.0-0.1) 10^3/uL Abs Immat Gran (auto) 0.02 (0.00-0.03) 10^3/uL Imm/Tot Granulo (auto) 0.3 (0.0-0.5) % Sodium 139 (136-145) mmol/L Potassium 4.4 (3.5-5.1) mmol/L Chloride 104 (98-107) mmol/L Carbon Dioxide 26.1 (21.0-32.0) mmol/L Anion Gap 13.3 BUN 18.0 (7.0-18.0) mg/dL Creatinine 1.22 (0.70-1.30) mg/dL Est GFR ( Amer) >60 (>=60) Est GFR (Non-Af Amer) 58 L (>=60) BUN/Creatinine Ratio 14.8 Glucose 135 H (74-106) mg/dL Calcium 8.5 (8.5-10.1) mg/dL Total Bilirubin 0.3 (0.2-1.0) mg/dL AST 18 (15-37) U/L ALT 31 (16-63) U/L Alkaline Phosphatase 73 (46-116) U/L Total Protein 6.3 L (6.4-8.2) g/dL Albumin 3.2 L (3.4-5.0) g/dL Globulin 3.1 g/dL Albumin/Globulin Ratio 1.0 Lipase 16.0 (16.0-77.0) U/L Imaging Data Abdominal x-ray: Radiologist's impression: ITS Impressions Chest/Abdomen X-ray 11/01/23 19:59 IMPRESSION: CHEST X-RAY: No plain film evidence for acute cardiopulmonary disease. ABDOMEN: 1. Nonobstructive bowel gas pattern. 2. Minimal retention of stool. 3. RUQ calcifications maybe within the gallbladder Electronically authenticated by: ILIANA GOMEZ Date: 11/01/2023 21:12 Discharge Plan Discharge Stand Alone Forms: Portal Instructions Chief Complaint: Abdominal Pain Clinical Impression: Abdominal pain, HTN (hypertension) Patient Disposition: Home, Self-Care Time of Disposition Decision: 22:57 Prescriptions / Home Meds: No Action desvenlafaxine succinate 50 mg tablet extended release 24 hr 50 mg PO DAILY aspirin 325 mg Tablet 325 mg PO DAILY Qty: 30 11RF isosorbide mononitrate 30 mg tablet extended release 24 hr 30 mg PO QAM Qty: 30 11RF ondansetron 8 mg tablet,disintegrating 8 mg PO Q8H PRN (Reason: nausea and vomiting) prednisone 10 mg tablet 50 mg PO DAILY Qty: 47 0RF Rx Instructions: 5/day for 3 days. 4/day for 3 days, 3/day for 3 days, 2/day for 3 days, 1/day for 3 days, 1/2 /day for 4 days ciprofloxacin HCl [Cipro] 500 mg tablet 500 mg PO Q12H Qty: 20 0RF metronidazole 500 mg tablet 500 mg PO Q8H Qty: 30 0RF lisinopril 5 mg tablet 10 mg PO BID mesalamine 400 mg capsule (with del rel tablets) 800 mg PO BID Print Language: Czech Instructions: Chronic Hypertension (ED), Abdominal Pain (ED) Referrals: Rodriguez Godwin MD [Primary Care Provider] - 1 week
[2023-11-01] MEDS: LABETALOL HCL 20 MG/4 ML SYRINGE IVP (20:50)
[2023-11-01] MEDS: LORAZEPAM 2 MG/ML 1 ML VIAL 0.5 MG IV (21:51)
[2023-11-01] MEDS: METHYLPREDNISOLONE SOD SUCC PF 125 MG/2 ML VIAL IVP (21:52)
[2023-11-01] MEDS: ENALAPRILAT DIHYDRATE 1.25 MG/ML VIAL IV (22:01)
[2023-11-01] MEDS: HYDROMORPHONE HCL 0.5 MG/0.5 ML SYRINGE IV (22:45)
== END 2023-11-01 23:08 | disposition home or self-care (01) ==
PROVIDERS: Emergency Provider Emergency Medicine; Family Provider Family Medicine; PCP Family Medicine
DX: R10.9 Unspecified abdominal pain (principal); I10 Essential (primary) hypertension; K50.90 Crohn's disease, unspecified, without complications; Z79.899 Other long term (current) drug therapy; Z90.49 Acquired absence of other specified parts of digestive tract; Z87.891 Personal history of nicotine dependence
CPT/HCPCS: 36415; 74022; 80053; 83690; 85025; 96361; 96374; 96375; 96376; 99285; J1170; J2930

== ENCOUNTER 2023-12-02 08:08 | Emergency (ER) | payer MEDICARE, SELFPAY ==
[2023-12-02] VITALS (11 sets, daily range): BP systolic 123–150; BP diastolic 77–81; PULSE 74–101; TEMP 36.6; O2SAT 94–96; BMI 22.9
--- OUTSIDE RECORDS SUMMARY | 2023-12-02 08:23 | XMS_ITS | CCD ---
Author Organization [facility] Care Team Providers Care Apartment Maintenance Manager Name Role Phone DR BEHZAD CROCKER Primary Care Unavailable DANIEL ., JUNI Attending Unavailable DANIEL ., JUNI Admitting Unavailable DR ROBERT DAVENPORT V Consulting Unavailable PITER GROSSMAN Consulting Unavailable DANIEL ., JUNI Consulting Unavailable DIAB ., GRAYSON Consulting Unavailable ADITYA OATES Consulting Unavailable MD Rodriguez Godwin Primary Care Provider [phone] DO Ramiro Cortez Emergency Provider Rodriguez Godwin Primary Care Unavailable Ramiro Cortez Attending Unavailable Ramiro Cortez Admitting Unavailable MATTIE AVALOS Attending Unavailable SHIV SHIRLEY Attending Unavailable JESSICA FORRESTER Admitting Unavailable JESSICA FORRESTER Attending Unavailable JESSICA FORRESTER Referring Unavailable JESSICA FORRESTER Attending Unavailable Allergies Allergy Classification Reported Allergen(s) Allergy Type Date of Onset Reaction(s) Facility (2 sources) Fish derivative; Translations: [fish derived] Propensity to adverse reactions 03-03-20 Gastrointestinal Upset [facility] Medications Current Medications Medication Drug Class(es) Dates [...] disease (6 sources) Atherosclerotic heart disease of [place] coronary artery without angina pectoris; Translations: [Atherosclerotic heart disease of [place] coronary artery with other forms of angina pectoris] Onset: 03-15-2023 Chronic Essential hypertension (3 sources) Essential (primary) hypertension; Translations: [ESSENTIAL PRIMARY HYPERTENSION] Onset: 01-12-2023 Chronic Heart valve disorders (4 sources) Nonrheumatic mitral (valve) insufficiency; Translations: [Nonrheumatic aortic (valve) insufficiency] Onset: 03-21-2023 Chronic Nonspecific chest pain (1 source) Chest pain, unspecified; Translations: [Chest pain, unspecified] Onset: 03-03-2023 Episodic Other aftercare (1 source) ad terminal makeup operator (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) use of systemic steroids; Translations: [FCI USE OF SYSTEMIC STEROIDS] Onset: 01-12-2023 Episodic Other aftercare (1 source) Other ad terminal makeup operator (current) drug therapy; Translations: [OTH [facility]CI CURRENT DRUG THERAPY] Onset: 01-12-2023 Episodic Other [...] Range Facility Office Visiton 06-07-2023 Follow-up visit [id number] Jeb Riddle 1950 M Date Provider Department Center 06/07/2023 SHIV SAAVEDRA MISSY Sandoval [facility] Family History Problem Relation Age of Onset Diabetes Mother Coronary artery disease Mother Heart attack Father Diabetes Father Coronary artery disease Father Family Status - Relation Status Age at Mother Father Level of Service:24306 [place] OFFICE/OUTPATIENT [facility] MDM 60-74 MINUTES Normal [facility] Office Visiton 05-27-2023 Follow-up visit [id number] Jeb Riddle 1950 M Date Provider Department Center 05/27/2023 Rafael-JESSICA FORRESTER MISSY Nicole Family History Problem Relation Age of Onset Diabetes Mother Coronary artery disease Mother Heart attack Father Diabetes Father Coronary artery disease Father Family Status - Relation Status Age at Mother Father Level of Service:64220 [place] OFFICE/OUTPATIENT ESTABLISHED MOD MDM 30-39 MIN Reason for Visit and Comments: Follow-up [054691] Coronary Artery Disease [187] [facility] HPon 04-06-2023 HP H&P reviewed. The pa alex was examined and there are no changes to the H&P. Assessment: 1- NSVT 2- Unstable angina Plan: Proceed with coronary angiography today. [facility] NURSNOTEon 04-06-2023 NURSNOTE RN educated pt on d/ c instructions. RN encouraged pt to voice any questions or concerns. Pt verbalizes no questions or concerns at this time. Pt was wheeled off of unit with all of belongings. [facility] Orders Onlyon 03-24-2023 Orders Only [id number] Jeb Riddle 1950 M Date Provider Department Center 03/24/2023 TAQUERIA MAYORGA MISSY Nicole Family History Problem Relation Age of Onset Diabetes Mother Coronary artery disease Mother Heart attack Father Diabetes Father Coronary artery disease Father Family Status - Relation Status Age at Mother Father [facility] 29on 03-21-2023 29 Addended by: Analilia AVALOS on: 03/28/2023 08:21 AM Modules accepted: Orders [facility] Office Visiton 03-21-2023 Follow-up visit [id number] Jeb Riddle 1950 M Date Provider Department Center 03/21/2023 120-MATTIE AVALOS Family History Problem Relation Age of Onset Diabetes Mother Coronary artery disease Mother Heart attack Father Diabetes Father Coronary artery disease Father Family Status - Relation Status Age at Mother Father Level of Service:15538 [place] OFFICE/OUTPATIENT ESTABLISHED MOD MDM 30-39 MIN [facility] Orders Onlyon 03-15-2023 Orders Only [id number] Jeb Riddle 1950 M Date Provider Department Center 03/15/2023 MATTIE LAY [facility] [facility] No family history on file Normal [facility] Activated partial thrombopla stin time (aPTT) in platelet poor plasma by coagulation aOrdered By: Ramiro Cortez on 03-03-2023 aPTT Coag (PPP) [Time] 29.7 s 25.1-36.5 [facility] B-Type Natriuretic Peptideon 03-03-2023 Natriuretic peptide B (Bld) [Mass/Vol] 52.0 pg/mL Normal 5-100 [facility] Comment on above: Result Comment: PERF ORMED BY: [place] [address] PATHOLOGIST INTERIOR DESIGN INSTRUCTOR RADHA BARRON M.D. Performed By: #### B MP, HS TROP, BNP, CBC, CK, PT, PTT #### [address] Basic Metabolic Panelon 02-13 Anion gap [Moles/Vol] 10.6 mmol/L Normal 6.0-15.0 [facility] Comment on above: Performed By: #### B MP, HS TROP, BNP, CBC, CK, PT, PTT #### [address] Calcium [Mass/Vol] 8.6 mg/dL Normal 8.6-10.3 [facility] Comment on above: Performed By: #### B MP, HS TROP, BNP, CBC, CK, PT, PTT #### [address] Chloride [Moles/Vol] 108 mmol/L High 98-107 [facility] Comment on above: Performed By: #### B MP, HS TROP, BNP, CBC, CK, PT, PTT #### [address] CO2 [Moles/Vol] 24.6 mmol/L Normal 21.0-31.0 [facility] Comment on above: Performed By: #### B MP, HS TROP, BNP, CBC, CK, PT, PTT #### [facility] [address] Creatinine [Mass/Vol] 1.19 mg/dL Normal 0.70-1.30 [facility] Comment on above: Performed By: #### B MP, HS TROP, BNP, CBC, CK, PT, PTT #### [facility] [address] Creatinine Clr Calc Pharmacy 55.29 [facility] Comment on above: Result Comment: PERF ORMED BY: [place] [address] PATHOLOGIST INTERIOR DESIGN INSTRUCTOR RADHA BARRON M.D. Performed By: #### B MP, HS TROP, BNP, CBC, CK, PT, PTT #### [address] GFR/1.73 sq M.predicted MDRD (S/P/Bld) [Vol rate/Area] mL/min/{1.73_m2} [facility] Comment on above: Performed By: #### B MP, HS TROP, BNP, CBC, CK, PT, PTT #### [address] Glucose [Mass/Vol] 93 mg/dL Normal 70-100 [facility] Comment on above: Result Comment: [place] Glucose Reference Range is dependent on time and content of last meal. Glucose of more than 200 mg/dL in a nonstressed, ambulatory subject supports the diagnosis of Diabetes Mellitus. ADA recommended reference range Performed By: #### B MP, HS TROP, BNP, CBC, CK, PT, PTT #### [address] Potassium [Moles/Vol] 4.2 mmol/L Normal 3.5-5.1 [facility] Comment on above: Performed By: #### B MP, HS TROP, BNP, CBC, CK, PT, PTT #### [facility] [address] Sodium [Moles/Vol] 139 mmol/L Normal 136-145 [facility] Comment on above: Performed By: #### B MP, HS TROP, BNP, CBC, CK, PT, PTT #### [facility] [address] Urea nitrogen [Mass/Vol] 17 mg/dL Normal 7-25 [facility] Comment on above: Performed By: #### B MP, HS TROP, BNP, CBC, CK, PT, PTT #### [facility] [address] Basophils Auto (Bld) [#/Vol] Ordered By: Ramiro Cortez on 03-03-2023 Basophils (Bld) [#/Vol] 0.0 10*3/uL 0.0-0.2 [facility] Basophils/100 WBC Auto (Bld) Ordered By: Ramiro Cortez on 03-03-2023 Basophils/100 WBC (Bld) 0.4 % . [facility] Calcium [Mass/volume] in Ser um or PlasmaOrdered By: Ramiro Cortez on 03-03-2023 Calcium [Mass/Vol] 8.6 mg/dL 8.6-10.3 [facility] Carbon dioxide, total [Moles /volume] in Serum or PlasmaOrdered By: Ramiro Cortez on 03-03-2023 CO2 [Moles/Vol] 24.6 mmol/L 21.0-31.0 [facility] Chloride [Moles/volume] in S pooja or PlasmaOrdered By: Ramiro Cortez on 03-03-2023 Chloride [Moles/Vol] 108 mmol/L 98-107 [facility] Complete Blood Count Auto Di ffon 03-03-2023 Basophils (Bld) [#/Vol] 0.0 10*3/uL Normal 0.0-0.2 [facility] Comment on above: Result Comment: PERF ORMED BY: [place] [address] PATHOLOGIST INTERIOR DESIGN INSTRUCTOR RADHA BARRON M.D. Performed By: #### B MP, HS TROP, BNP, CBC, CK, PT, PTT #### [facility] [address] Basophils/100 WBC (Bld) 0.4 % Normal . [facility] Comment on above: Performed By: #### B MP, HS TROP, BNP, CBC, CK, PT, PTT #### [address] Eosinophils (Bld) [#/Vol] 0.2 10*3/uL Normal 0.0-0.45 [facility] Comment on above: Performed By: #### B MP, HS TROP, BNP, CBC, CK, PT, PTT #### [address] Eosinophils/100 WBC (Bld) 2.4 % Normal . [facility] Comment on above: Performed By: #### B MP, HS TROP, BNP, CBC, CK, PT, PTT #### [address] Erythrocyte distribution width (RBC) [Ratio] 13.0 % Normal 12.0-14.8 [facility] Comment on above: Performed By: #### B MP, HS TROP, BNP, CBC, CK, PT, PTT #### [address] Hematocrit (Bld) [Volume fraction] 38.3 % Low 38.8-50.0 [facility] Comment on above: Performed By: #### B MP, HS TROP, BNP, CBC, CK, PT, PTT #### [address] Hemoglobin (Bld) [Mass/Vol] 12.9 g/dL Low 13.0-17.0 [facility] Comment on above: Performed By: #### B MP, HS TROP, BNP, CBC, CK, PT, PTT #### [address] Lymphocytes (Bld) [#/Vol] 2.6 10*3/uL Normal 1.00-4.8 [facility] Comment on above: Performed By: #### B MP, HS TROP, BNP, CBC, CK, PT, PTT #### [address] Lymphocytes/100 WBC (Bld) 28.3 % Normal . [facility] Comment on above: Performed By: #### B MP, HS TROP, BNP, CBC, CK, PT, PTT #### [address] MCH (RBC) [Entitic mass] 30.8 pg Normal 27.5-35.2 [facility] Comment on above: Performed By: #### B MP, HS TROP, BNP, CBC, CK, PT, PTT #### [address] MCV (RBC) [Entitic vol] 91.9 fL Normal 83.5-101 [facility] Comment on above: Performed By: #### B MP, HS TROP, BNP, CBC, CK, PT, PTT #### [address] Mean Corpuscular HGB Conc 33.6 g/dL Normal 32.5-35.6 [facility] Comment on above: Performed By: #### B MP, HS TROP, BNP, CBC, CK, PT, PTT #### [address] Monocytes (Bld) [#/Vol] 0.6 10*3/uL Normal 0.0-0.8 [facility] Comment on above: Performed By: #### B MP, HS TROP, BNP, CBC, CK, PT, PTT #### [address] Monocytes/100 WBC (Bld) 24.67 % High 0.00-20.00 [facility] Comment on above: Result Comment: For adults in ED, MDW > 20.0 may be associated with a higher risk of sepsis during the first 12 hrs of hospital admission Performed By: #### B MP, HS TROP, BNP, CBC, CK, PT, PTT #### [address] Monocytes/100 WBC (Bld) 6.5 % Normal . [facility] Comment on above: Performed By: #### B MP, HS TROP, BNP, CBC, CK, PT, PTT #### [address] Neutrophils (Bld) [#/Vol] 5.7 10*3/uL Normal 1.8-7.7 [facility] Comment on above: Performed By: #### B MP, HS TROP, BNP, CBC, CK, PT, PTT #### [address] Neutrophils/100 WBC (Bld) 62.4 % Normal . [facility] Comment on above: Performed By: #### B MP, HS TROP, BNP, CBC, CK, PT, PTT #### [address] NRBC% 0.1 /100{WBC} Normal 0-0.5 [facility] Comment on above: Performed By: #### B MP, HS TROP, BNP, CBC, CK, PT, PTT #### [address] Platelet mean volume (Bld) [Entitic vol] 8.2 fL Normal 6.6-10.1 [facility] Comment on above: Performed By: #### B MP, HS TROP, BNP, CBC, CK, PT, PTT #### [address] Platelets (Bld) [#/Vol] 234 10*3/uL Normal 150-450 [facility] Comment on above: Performed By: #### B MP, HS TROP, BNP, CBC, CK, PT, PTT #### [address] RBC (Bld) [#/Vol] 4.17 10*6/uL Normal 3.90-5.60 [facility] Comment on above: Performed By: #### B MP, HS TROP, BNP, CBC, CK, PT, PTT #### [address] WBC (Bld) [#/Vol] 9.2 10*3/uL Normal 4.1-10.5 [facility] Comment on above: Performed By: #### B MP, HS TROP, BNP, CBC, CK, PT, PTT #### [facility] [address] [place] [id number] [place] Creatine Kinaseon 03-03-2023 CK [Catalytic activity/Vol] 125 U/L Normal [facility] Comment on above: Performed By: #### B MP, HS TROP, BNP, CBC, CK, PT, PTT #### [facility] [address] [place] [id number] [facility] Creatine kinase [Enzymatic a ctivity/volume] in Serum or PlasmaOrdered By: Ramiro Cortez on 03-03-2023 CK [Catalytic activity/Vol] 125 U/L [facility] Creatinine [Mass/volume] in Serum or PlasmaOrdered By: Ramiro Cortez on 03-03-2023 Creatinine [Mass/Vol] 1.19 mg/dL 0.70-1.30 [facility] ECG 12 lead ECGon 03-03-2023 ECG 12 lead ECG [facility] [place] [address] [place] [address] Electrocardiograph Report Signed Patient: Jeb Riddle MR#: [id number] : 1950 Acct:[id number] Age/Sex: 72 / M ADM Date: 03/03/23 Loc: ER Room: Type: [facility] ER Attending Dr: Ordering Provider: Ramiro Cortez [...] ECGs available Confirmed by RAMIRO CORTEZ DO ([id number]) on 03/03/2023 8:14:27 PM Referred By: Electronically Signed By:RAMIRO CORTEZ DO Transcribed By: MUS Signed By Ramiro Cortez DO 03/03 [facility] Eosinophils Auto (Bld) [#/Vo l]Ordered By: Ramiro Cortez on 03-03-2023 Eosinophils (Bld) [#/Vol] 0.2 10*3/uL 0.0-0.45 [facility] Eosinophils/100 WBC Auto (Bl d)Ordered By: Ramiro Cortez on 03-03-2023 Eosinophils/100 WBC (Bld) 2.4 % . [facility] Erythrocyte distribution wid th Auto (RBC) [Ratio]Ordered By: Ramiro Cortez on 03-03-2023 Erythrocyte distribution width (RBC) [Ratio] 13.0 % 12.0-14.8 [facility] Glucose [Mass/volume] in Ser um or PlasmaOrdered By: Ramiro Cortez on 03-03-2023 Glucose [Mass/Vol] 93 mg/dL 70-100 [facility] Comment on above: ADA recommended refe rence rangeRandom Glucose Reference Range is dependent on time and content of last meal. Glucose of more than 200 mg/dL in a nonstressed, ambulatory subject supports the diagnosis of Diabetes Mellitus. Hematocrit Auto (Bld) [Volum e fraction]Ordered By: Ramiro Cortez on 03-03-2023 Hematocrit (Bld) [Volume fraction] 38.3 % 38.8-50.0 [facility] Hemoglobin [Mass/volume] in BloodOrdered By: Ramiro Cortez on 03-03-2023 Hemoglobin (Bld) [Mass/Vol] 12.9 g/dL 13.0-17.0 [facility] Laboratory - CoagulationOrde red By: Ramiro Cortez on 03-03-2023 PT Coag (PPP) [Time] 12.3 s 9.0-12.9 [facility] Leukocytes [#/volume] correc ava for nucleated erythrocytes in Blood by Automated counOrdered By: Ramiro Cortez on 03-03-2023 WBC corrected for nucl RBC Auto (Bld) [#/Vol] 9.2 10*3/uL 4.1-10.5 [facility] Lymphocytes Auto (Bld) [#/Vo l]Ordered By: Ramiro Cortez on 03-03-2023 Lymphocytes (Bld) [#/Vol] 2.6 10*3/uL 1.00-4.8 [facility] Lymphocytes/100 WBC Auto (Bl d)Ordered By: Ramiro Cortez on 03-03-2023 Lymphocytes/100 WBC (Bld) 28.3 % . [facility] MCH Auto (RBC) [Entitic mass ]Ordered By: Ramiro Cortez on 03-03-2023 MCH (RBC) [Entitic mass] 30.8 pg 27.5-35.2 [facility] MCHC Auto (RBC) [Mass/Vol]Or dered By: Ramiro Cortez on 03-03-2023 MCHC (RBC) [Mass/Vol] 33.6 g/dL 32.5-35.6 [facility] MCV Auto (RBC) [Entitic vol] Ordered By: Ramiro Cortez on 03-03-2023 MCV (RBC) [Entitic vol] 91.9 fL 83.5-101 [facility] Monocyte distribution width [Entitic volume] in Blood by AutomatedOrdered By: Ramiro Cortez on 03-03-2023 Monocyte distribution width Auto (Bld) [Entitic vol] 24.67 % 0.00-20.00 [facility] Comment on above: For adults in ED, MD W > 20.0 may be associated with a higher risk of sepsis during the first 12 hrs of hospital admission Monocytes Auto (Bld) [#/Vol] Ordered By: Ramiro Cortez on 03-03-2023 Monocytes (Bld) [#/Vol] 0.6 10*3/uL 0.0-0.8 [facility] Monocytes/100 WBC Auto (Bld) Ordered By: Ramiro Cortez on 03-03-2023 Monocytes/100 WBC (Bld) 6.5 % . [facility] Natriuretic peptide B [Mass/ Vol]Ordered By: Ramiro Cortez on 03-03-2023 Natriuretic peptide B (Bld) [Mass/Vol] 52.0 pg/mL 5-100 [facility] Neutrophils Auto (Bld) [#/Vo l]Ordered By: Ramiro Cortez on 03-03-2023 Neutrophils (Bld) [#/Vol] 5.7 10*3/uL 1.8-7.7 [facility] Neutrophils/100 WBC Auto (Bl d)Ordered By: Ramiro Cortez on 03-03-2023 Neutrophils/100 WBC (Bld) 62.4 % . [facility] No Panel InformationOrdered By: Ramiro Cortez on 03-03-2023 Estimated GFR (CKD-EPI) > 60.0 mL/Min [facility] Pharmacy Creatinine Clearance (Chem 55.29 [facility] Nucleated erythrocytes [Pres ence] in Blood by Automated countOrdered By: Ramiro Cortez on 03-03-2023 Nucleated RBC Auto Ql (Bld) 0.1 /100{WBC} 0-0.5 [facility] Partial Thromboplastin Timeo n 03-03-2023 aPTT Coag (Bld) [Time] 29.7 s Normal 25.1-36.5 [facility] Comment on above: Result Comment: PERF ORMED BY: [facility] [address] [place] [address] PATHOLOGIST INTERIOR DESIGN INSTRUCTOR RADHA BARRON M.D. Performed By: #### B MP, HS TROP, BNP, CBC, CK, PT, PTT #### [facility] [address] Platelet mean volume Auto (B ld) [Entitic vol]Ordered By: Ramiro Cortez on 03-03-2023 Platelet mean volume (Bld) [Entitic vol] 8.2 fL 6.6-10.1 [facility] Platelet poor plasma interna tional normalized ratio (INR) by coagulation assay (relatOrdered By: Ramiro Cortez on 03-03-2023 INR Coag (PPP) [Relative time] 1.1 {INR} [facility] Comment on above: INR Therapeutic Rang e [...] 03-03-2023 Platelets (Bld) [#/Vol] 234 10*3/uL 150-450 [facility] Potassium [Moles/volume] in Serum or PlasmaOrdered By: Ramiro Cortez on 03-03-2023 Potassium [Moles/Vol] 4.2 mmol/L 3.5-5.1 [facility] Prothrombin Time INRon 03-03 INR Coag (PPP) [Relative time] 1.1 {INR} Normal [facility] Comment on above: Result Comment: INR Therapeutic [...] TROP, BNP, CBC, CK, PT, PTT #### [facility] [address] PT Coag (PPP) [Time] 12.3 s Normal 9.0-12.9 [facility] Comment on above: Performed By: #### B MP, HS TROP, BNP, CBC, CK, PT, PTT #### [facility] [address] RBC Auto (Bld) [#/Vol]Ordere d By: Ramiro Cortez on 03-03-2023 RBC (Bld) [#/Vol] 4.17 10*6/uL 3.90-5.60 [facility] Serum or plasma anion gap de terminationOrdered By: Ramiro Cortez on 03-03-2023 Anion gap [Moles/Vol] 10.6 mmol/L 6.0-15.0 [facility] Sodium [Moles/volume] in Ser um or PlasmaOrdered By: Ramiro Cortez on 03-03-2023 Sodium [Moles/Vol] 139 mmol/L 136-145 [facility] Troponin I High Sensitivityo n 03-03-2023 Troponin I High Sensitivity 7.6 pg/mL Normal 0.0-20.0 [facility] Comment on above: Result Comment: PERF ORMED BY: [facility] [address] [place] [address] PATHOLOGIST INTERIOR DESIGN INSTRUCTOR RADHA BARRON M.D. Performed By: #### B MP, HS TROP, BNP, CBC, CK, PT, PTT #### [address] Troponin I.cardiac [Mass/vol ume] in Serum or Plasma by Detection limit <= 0.01 ng/Ordered By: Ramiro Cortez on 03-03-2023 Troponin I.cardiac DL <= 0.01 ng/mL [Mass/Vol] 7.6 pg/mL 0.0-20.0 [facility] Urea nitrogen [Mass/volume] in Serum or PlasmaOrdered By: Ramiro Cortez on 03-03-2023 Urea nitrogen [Mass/Vol] 17 mg/dL 7-25 [facility] WBC Auto (Bld) [#/Vol]Ordere d By: Ramiro Cortez on 03-03-2023 WBC (Bld) [#/Vol] 9.2 10*3/uL 4.1-10.5 [facility] XR chest 2V*on 03-03-2023 XR chest 2V* [facility] [address] [place] [address] XRay Report Signed Patient: Jeb Riddle MR#: [id number] : 1950 Acct:[id number] Age/Sex: 72 / M ADM Date: 03/03/23 Loc: ER Room: Type: [facility] ER Attending Dr: Copies to: Ramiro [...] Ivonne Zavala M.D.03/03/2023 12:46 PM Dictation Location: [place] [address] Transcribed By: [facility] 03/03/23 1246 Dictated By: Ivonne Zavala MD 03/03/23 1245 Signed By: 03/03/23 1246 [facility] CBC AUTO DIFFon 01-11-2023 BASO # 0.0 103/ul Normal 0.0-0.1 [facility] Comment on above: Performed By: #### C BC #### [facility] [address] [address] [address] Andrea Garcia Basophils/100 WBC (Bld) 0.0 % Critically low 0.2-2.0 [facility] Comment on above: Performed By: #### C BC #### [facility] [address] [place] [address] Dr. Andrea Garcia EO # 0.0 103/ul Normal 0.0-0.7 [facility] Comment on above: Performed By: #### C BC #### [facility] [address] [address] [address] Andrea Garcia Eosinophils/100 WBC (Bld) 0.0 % Critically low 0.9-7.0 [facility] Comment on above: Performed By: #### C BC #### [facility] [facility] [address] [place] [address] Dr. Andrea Garcia Erythrocyte distribution width (RBC) [Ratio] 12.8 % Normal 11.0-15.0 [facility] Comment on above: Performed By: #### C BC #### [facility] [address] [place] [address] Dr. Andrea Garcia Hematocrit (Bld) [Volume fraction] 36.2 % Critically low 42.0-54.0 [facility] Comment on above: Performed By: #### C BC #### [facility] [address] [place] [address] Dr. Andrea Garcia Hemoglobin (Bld) [Mass/Vol] 12.8 g/dL Critically low 14.0-18.0 [facility] Comment on above: Performed By: #### C BC #### [facility] [address] [place] [address] Dr. Andrea Garcia IG # 0.03 10e3/ul Normal 0.00-0.03 [facility] Comment on above: Performed By: #### C BC #### [facility] [address] [place] [address] Dr. Andrea Garcia IG % 0.4 % Normal 0.0-0.5 [facility] Comment on above: Performed By: #### C BC #### [facility] [address] [place] [address] Dr. Andrea Garcia LYMPH # 1.1 103/ul Critically low 1.2-3.8 [facility] Comment on above: Performed By: #### C BC #### [facility] [address] [place] [address] Dr. Andrea Garcia Lymphocytes/100 WBC (Bld) 15.3 % Critically low 20.5-60.0 [facility] Comment on above: Performed By: #### C BC #### [facility] [address] [place] [address] Dr. Andrea Garcia MANUAL DIFF REQ NO Normal [facility] Comment on above: Performed By: #### C BC #### [facility] [address] [place] [address] Dr. Andrea Garcia MCH (RBC) [Entitic mass] 31.3 pg Normal 25.9-34.0 [facility] Comment on above: Performed By: #### C BC #### [facility] [address] [place] [address] Dr. Andrea Garcia MCHC (RBC) [Mass/Vol] 35.4 g/dL Critically high 29.9-35.[address] [facility] Comment on above: Performed By: #### C BC #### [facility] [address] [place] [address] Dr. Andrea Garcia MCV (RBC) [Entitic vol] 88.5 fL Normal 80.0-94.0 [facility] Comment on above: Performed By: #### C BC #### [facility] [address] [place] [address] Dr. Andrea Garcia MONO # 0.1 103/ul Critically low 0.3-0.8 [facility] Comment on above: Performed By: #### C BC #### [facility] [address] [place] [address] Dr. Andrea Garcia Monocytes/100 WBC (Bld) 0.7 % Critically low 1.7-12.0 [facility] Comment on above: Performed By: #### C BC #### [facility] [address] [place] [address] Dr. Andrea Garcia NEUT # 6.0 103/ul Normal 1.4-6.5 [facility] Comment on above: Performed By: #### C BC #### [facility] [address] [place] [address] Dr. Andrea Garcia Neutrophils/100 WBC (Bld) 83.6 % Critically high 43.0-75.0 [facility] Comment on above: Performed By: #### C BC #### [facility] [address] [place] [address] Dr. Andrea Garcia Platelet mean volume (Bld) [Entitic vol] 10.1 fL Normal 9.5-13.5 [facility] Comment on above: Performed By: #### C BC #### [facility] [address] [place] [address] Dr. Andrea Garcia PLT 216 103/ul Normal 150-[address] [facility] Comment on above: Performed By: #### C BC #### [facility] [address] [place] [address] Dr. Andrea Garcia RBC 4.09 106/ul Critically low 4.70-6.[address] [facility] Comment on above: Performed By: #### C BC #### [facility] [address] [place] [address] Dr. Andrea Garcia WBC 7.2 103/ul Normal 4.0-11.[address] [facility] Comment on above: Performed By: #### C BC #### [facility] [address] [place] [address] Dr. Andrea Garcia PROF 14(COMP METB)on 05-30-2 023 Albumin [Mass/Vol] 2.8 g/dL Critically low 3.4-5.0 [facility] Comment on above: Performed By: #### C MP #### [facility] [address] [place] [address] Dr. Andrea Garcia Albumin/Globulin [Mass ratio] 0.8 {ratio} Normal [facility] Comment on above: Performed By: #### C MP #### [facility] [address] [place] [address] Dr. Andrea Garcia ALP [Catalytic activity/Vol] 64 U/L Normal 46-116 [facility] Comment on above: Performed By: #### C MP #### [facility] [address] [place] [address] Dr. Andrea Garcia ALT [Catalytic activity/Vol] 27 U/L Normal 16-63 [facility] Comment on above: Performed By: #### C MP #### [facility] [address] [place] [address] Dr. Andrea Garcia Anion gap [Moles/Vol] 12.9 mmol/L Normal [facility] Comment on above: Performed By: #### C MP #### [facility] [address] [place] [address] Dr. Andrea Garcia AST [Catalytic activity/Vol] 16 U/L Normal 15-37 [facility] Comment on above: Performed By: #### C MP #### [facility] [address] [place] [address] Dr. Andrea Garcia Bilirubin [Mass/Vol] 0.4 mg/dL Normal 0.2-1.0 [facility] Comment on above: Performed By: #### C MP #### [facility] [address] [place] [address] Dr. Andrea Garcia Calcium [Mass/Vol] 8.2 mg/dL Critically low 8.5-10.1 Th [facility] Comment on above: Performed By: #### C MP #### [facility] [address] [place] [address] Dr. Andrea Garcia Chloride [Moles/Vol] 107 mmol/L Normal 98-107 [facility] Comment on above: Performed By: #### C MP #### [facility] [address] [address] [address] Andrea Garcia CO2 [Moles/Vol] 24.2 mmol/L Normal 21.0-32.0 [facility] Comment on above: Performed By: #### C MP #### [facility] [address] [address] [address] Andrea Garcia Creatinine [Mass/Vol] 1.07 mg/dL Normal 0.70-1.30 [facility] Comment on above: Performed By: #### C MP #### [facility] [address] [address] [address] Andrea Garcia EGFR-AF ARGENTINE >60 Normal >=60 [facility] Comment on above: Performed By: #### C MP #### [facility] [address] [place] [address] Dr. Andrea Garcia EGFR-NON AF ARGENTINE >60 Normal >=60 [facility] Comment on above: Performed By: #### C MP #### [facility] [address] [place] [address] Dr. Andrea Garcia Globulin (S) [Mass/Vol] 3.5 g/dL Normal [facility] Comment on above: Performed By: #### C MP #### [facility] [address] [place] [address] Dr. Andrea Garcia Glucose [Mass/Vol] 164 mg/dL Critically high 74-106 T [facility] Comment on above: Performed By: #### C MP #### [facility] [address] [place] [address] Dr. Andrea Garcia Potassium [Moles/Vol] 4.1 mmol/L Normal 3.5-5.1 [facility] Comment on above: Performed By: #### C MP #### [facility] [address] [place] [address] Dr. Andrea Garcia Protein [Mass/Vol] 6.3 g/dL Critically low 6.4-8.2 Th [facility] Comment on above: Performed By: #### C MP #### [facility] [address] [address] [address] Andrea Garcia Sodium [Moles/Vol] 140 mmol/L Normal 136-[address] [facility] Comment on above: Performed By: #### C MP #### [facility] [address] [address] [address] Andrea Garcia Urea nitrogen [Mass/Vol] 16.0 mg/dL Normal 7.0-18.0 [facility] Comment on above: Performed By: #### C MP #### [facility] [address] [address] [address] Andrea Garcia Urea nitrogen/Creatinine [Mass ratio] 15.0 mg/mg Normal [facility] Comment on above: Performed By: #### C MP #### [facility] [address] [address] [address] Andrea Garcia XR KUB 1 VIEWon [...] ROBERT DAVENPORT Date: 2023-01-11 06:56 Normal [address] [facility] AMYLASEon 01-10-2023 Amylase [Catalytic activity/Vol] 56 U/L Normal 25-[address] [facility] Comment on above: Performed By: #### C MADM, CMP, DAMIEN, LIPA ####[facility] [address] [place], [place] [address]MxDr. Andrea Garcia CARDIAC JEB 3-6on 3 CK [Catalytic activity/Vol] 92 U/L Normal 39-[address] [facility] Comment on above: Performed By: #### C MREP #### [facility] [address] [address] [address] Andrea Garcia CK.MB [Mass/Vol] 1.66 ng/mL Normal <=3.[address] [facility] Comment on above: Performed By: #### C MREP #### [facility] [address] [address] [address] Andrea Garcia HSTROP 12.8 pg/mL Normal 4.0-76.1 [facility] Comment on above: Result Comment: CUT- OFF POINTS HAVE BEEN ESTABLISHED BASED ON THE FOURTH UNIVERSAL DEFINITIONS OF MYOCARDIAL INFARCTION. THE UPPER REFERENCE LIMIT (URL) OF TROPONIN, DEFINED THE 99TH PERCENTILE OF cTnI DISTRIBUTION IN A REFERENCE POPULATION, HAS BEEN CONFIRMED THE DECISION THRESHOLD FOR [place] DIAGNOSIS. Performed By: #### C MREP #### [facility] [address] [address] [address] Andrea Garcia CK [Catalytic activity/Vol] 72 U/L Normal 39-308 [facility] Comment on above: Performed By: #### C MREP #### [facility] [address] [address] [address] Andrea Garcia CK.MB [Mass/Vol] 1.89 ng/mL Normal <=3.60 [facility] Comment on above: Performed By: #### C MREP #### [facility] [address] [address] [address] Andrea Garcia HSTROP 13.5 pg/mL Normal 4.0-76.1 [facility] Comment on above: Result Comment: CUT- OFF POINTS HAVE BEEN ESTABLISHED BASED ON THE FOURTH UNIVERSAL DEFINITIONS OF MYOCARDIAL INFARCTION. THE UPPER REFERENCE LIMIT (URL) OF TROPONIN, DEFINED THE 99TH PERCENTILE OF cTnI DISTRIBUTION IN A REFERENCE POPULATION, HAS BEEN CONFIRMED THE DECISION THRESHOLD FOR [place] DIAGNOSIS. Performed By: #### C MREP #### [facility] [address] [address] [address] Andrea Garcia CARDIAC JEB ADMITon 023 CK [Catalytic activity/Vol] 85 U/L Normal 39-[address] [facility] Comment on above: Performed By: #### C MADM, CMP, DAMIEN, LIPA ####[facility] [address] [place], [place] [address]OlDr. Andrea Garcia CK.MB [Mass/Vol] 1.80 ng/mL Normal <=3.[address] [facility] Comment on above: Performed By: #### C MADM, CMP, DAMIEN, LIPA ####[facility] [address] [id number]. Andrea Garcia HSTROP 15.7 pg/mL Normal 4.0-76.[address] [facility] Comment on above: Result Comment: CUT- OFF POINTS HAVE BEEN ESTABLISHED BASED ON THE FOURTH UNIVERSAL DEFINITIONS OF MYOCARDIAL INFARCTION. THE UPPER REFERENCE LIMIT (URL) OF TROPONIN, DEFINED THE 99TH PERCENTILE OF cTnI DISTRIBUTION IN A REFERENCE POPULATION, HAS BEEN CONFIRMED THE DECISION THRESHOLD FOR [place] DIAGNOSIS. Performed By: #### C MADM, CMP, DAMIEN, LIPA ####[facility] [address] [address]Dr. Andrea Garcia MIQUEL 61 ng/mL Normal 16-[address] [facility] Comment on above: Performed By: #### C MADM, CMP, DAMIEN, LIPA ####[facility] [address] [address]Dr. Andrea Jose CBC AUTO DIFFon 01-10-2023 BASO # 0.0 103/ul Normal 0.0-0.1 [facility] Comment on above: Performed By: #### C BC ####[facility] [address] [address]Dr. Andrea Jose Basophils/100 WBC (Bld) 0.5 % Normal 0.2-2.[address] [facility] Comment on above: Performed By: #### C BC ####[facility] [address] [address]Dr. Andrea Garcia EO # 0.4 103/ul Normal 0.0-0.[address] [facility] Comment on above: Performed By: #### C BC ####[facility] [address] [address]Dr. Andrea Jose Eosinophils/100 WBC (Bld) 5.9 % Normal 0.9-7.[address] [facility] Comment on above: Performed By: #### C BC ####[facility] [address] [address]Dr. Andrea Jose Erythrocyte distribution width (RBC) [Ratio] 13.0 % Normal 11.0-15.0 [facility] Comment on above: Performed By: #### C BC ####[facility] [address] [address]Dr. Andrea Garcia Hematocrit (Bld) [Volume fraction] 40.0 % Critically low 42.0-54.0 [facility] Comment on above: Performed By: #### C BC ####[facility] [address] [address]Dr. Andrea Garcia Hemoglobin (Bld) [Mass/Vol] 13.4 g/dL Critically low 14.0-18.[address] [facility] Comment on above: Performed By: #### C BC ####[facility] [address] [place], [place] [address]Dr. Andrea Garcia IG # 0.01 10e3/ul Normal 0.00-0.[address] [facility] Comment on above: Performed By: #### C BC ####[facility] [address] [place], [place] [address]Dr. Andrea Garcia IG % 0.2 % Normal 0.0-0.[address] [facility] Comment on above: Performed By: #### C BC ####[facility] [address] [place], [place] [address]DrWilder Garcia LYMPH # 2.2 103/ul Normal 1.2-3.[address] [facility] Comment on above: Performed By: #### C BC ####[facility] [address] [place], [place] [address]DrWilder Garcia Lymphocytes/100 WBC (Bld) 33.2 % Normal 20.5-60.[address] [facility] Comment on above: Performed By: #### C BC ####[facility] [address] [place], [place] [address]DrWilder Garcia MANUAL DIFF REQ NO Normal [facility] Comment on above: Performed By: #### C BC ####[facility] [address] [place], [place] [address]Dr. Andrea Garcia MCH (RBC) [Entitic mass] 30.5 pg Normal 25.9-34.[address] [facility] Comment on above: Performed By: #### C BC ####[facility] [address] [place] [id number]. Andrea Jose MCHC (RBC) [Mass/Vol] 33.5 g/dL Normal 29.9-35.[address] [facility] Comment on above: Performed By: #### C BC ####[facility] [address] [id number] Garcia MCV (RBC) [Entitic vol] 90.9 fL Normal 80.0-94.0 [facility] Comment on above: Performed By: #### C BC ####[facility] [address] [place], [place] [address]DrWilder Garcia MONO # 0.4 103/ul Normal 0.3-0.[address] [facility] Comment on above: Performed By: #### C BC ####[facility] [address] [place], [place] [address]Dr. Andrea Garcia Monocytes/100 WBC (Bld) 6.0 % Normal 1.7-12.[address] [facility] Comment on above: Performed By: #### C BC ####[facility] [address] [place], [place] [address]Dr. Andrea Garica NEUT # 3.5 103/ul Normal 1.4-6.[address] [facility] Comment on above: Performed By: #### C BC ####[facility] [address] [place], [place] [address]Dr. Andrea Garcia Neutrophils/100 WBC (Bld) 54.2 % Normal 43.0-75.[address] [facility] Comment on above: Performed By: #### C BC ####[facility] [address] [place], [place] [address]DrWilder Garcia Platelet mean volume (Bld) [Entitic vol] 9.7 fL Normal 9.5-13.[address] [facility] Comment on above: Performed By: #### C BC ####[facility] [address] [place], [place] [address]DrWilder Garcia PLT 225 103/ul Normal 150-[address] [facility] Comment on above: Performed By: #### C BC ####[facility] [address] [place], [place] [address]NmWilder Garcia RBC 4.40 106/ul Critically low 4.70-6.[address] [facility] Comment on above: Performed By: #### C BC ####[facility] [address] [place], [place] [address]YgWilder Garcia WBC 6.5 103/ul Normal 4.0-11.0 [facility] Comment on above: Performed By: #### C BC ####[facility] [address] [place], [place] [address]Ls. Andrea [address] ABD/PELV W CONon 01-11-20 [...] ADITYA OATES Date: 2023-01-10 07:41 Normal [address] [facility] CULTURE BLOODon 01-10-2023 Microscopic examination of blood, culture Culture Observations: NO GROWTH AT 36-48 HOURS. FINAL TO FOLLOW. Normal The [facility] Comment on above: Performed By: #### B LDCX2 ####[facility] [address] [address]Dr. Andrea Garcia Microscopic examination of blood, culture Culture Observations: NO GROWTH AT 36-48 HOURS. FINAL TO FOLLOW. Normal The [facility] Comment on above: Performed By: #### B LDCX1 ####[facility] [address] [address]Dr. Andrea Garcia ER URINE PROFILEon 3 Bilirubin Ql (U) Negative Normal NEGATIVE [facility] Comment on above: Performed By: #### U MICRO, ERUR #### [facility] [address] [place] [address] Dr. Andrea Garcia Clarity (U) CLEAR Normal CLEAR [facility] Comment on above: Performed By: #### U MICRO, ERUR #### [facility] [address] [place] [address] Dr. Andrea Garcia Color (U) LT. YELLOW Normal YELLOW [facility] Comment on above: Performed By: #### U MICRO, ERUR #### [facility] [address] [place] [address] Dr. Andrea Garcia ERUNILSD A micrscopic examina tion will be performed if indicated. Normal [facility] Comment on above: Performed By: #### U MICRO, ERUR #### [facility] [address] [place] [address] Dr. Andrea Garcia Glucose Ql (U) Negative Normal NEGATIVE [facility] Comment on above: Performed By: #### U MICRO, ERUR #### [facility] [address] [place] [address] Dr. Andrea Garcia Hemoglobin Ql (U) TRACE-INTACT Abnormal NEGATIVE [facility] Comment on above: Performed By: #### U MICRO, ERUR #### [facility] [address] [place] [address] Dr. Andrea Garcia Ketones Ql (U) Negative Normal NEGATIVE [facility] Comment on above: Performed By: #### U MICRO, ERUR #### [facility] [address] [place] [address] Dr. Andrea Garcia LEUKOCYTES Negative Normal NEGATIVE [facility] Comment on above: Performed By: #### U MICRO, ERUR #### [facility] [address] [place] [address] Dr. Andrea Garcia Nitrite Ql (U) Negative Normal NEGATIVE [facility] Comment on above: Performed By: #### U MICRO, ERUR #### [facility] [address] [place] [address] Dr. Andrea Garcia pH (U) 5.5 [pH] Normal 5-9 [facility] Comment on above: Performed By: #### U MICRO, ERUR #### [facility] [address] [place] [address] Dr. Andrea Garcia SPEC GRAVITY 1.015 Normal 1.005-<=1. 025 [facility] Comment on above: Performed By: #### U MICRO, ERUR #### [facility] [address] [place] [address] Dr. Andrea Garcia UA PROTEIN Negative Normal NEGATIVE/ TRACE [facility] Comment on above: Performed By: #### U MICRO, ERUR #### [facility] [address] [place] [address] Dr. Andrea Garcia UR MICRO IND INDICATED Normal [facility] Comment on above: Performed By: #### U MICRO, ERUR #### [facility] [address] [place] [address] Dr. Andrea Garcia Urobilinogen Qn (U) 0.2 {Temo'U}/dL Normal 0.2 - 1. 0 [facility] Comment on above: Performed By: #### U MICRO, ERUR #### [facility] [address] [place] [address] Dr. Andrea Garcia LACTATE/LACTIC ACIDon 2022 Lactate [Moles/Vol] 0.8 mmol/L Normal 0.4-2.0 [facility] Comment on above: Performed By: #### L ACT #### [facility] [address] [place] [address] Dr. Andrea Garcia Lactate [Moles/Vol] 0.9 mmol/L Normal 0.4-2.0 [facility] Comment on above: Performed By: #### L ACT #### [facility] [address] [address] [address] Andrea Garcia LIPASEon 01-10-2023 Lipase [Catalytic activity/Vol] 71.0 U/L Critically low 73.0-393.0 [facility] Comment on above: Performed By: #### C MADM, CMP, DAMIEN, LIPA ####[facility] [address] [place] [address]DrWilder Garcia PROF 14(COMP METB)on 023 Albumin [Mass/Vol] 3.2 g/dL Critically low 3.4-5.0 [facility] Comment on above: Performed By: #### C MADM, CMP, DAMIEN, LIPA ####[facility] [address] [address]Dr. Andrea Garcia Albumin/Globulin [Mass ratio] 0.9 {ratio} Normal [facility] Comment on above: Performed By: #### C MADM, CMP, DAMIEN, LIPA ####[facility] [address] [address]DrWilder Garcia ALP [Catalytic activity/Vol] 68 U/L Normal 46-116 [facility] Comment on above: Performed By: #### C MADM, CMP, DAMIEN, LIPA ####[facility] [facility] [id number] [place] [address]DrWilder Garcia ALT [Catalytic activity/Vol] 30 U/L Normal 16-63 [facility] Comment on above: Performed By: #### C MADM, CMP, DAMIEN, LIPA ####[facility] [id number] [place] [address]DrWilder Garcia Anion gap [Moles/Vol] 14.2 mmol/L Normal [facility] Comment on above: Performed By: #### C MADM, CMP, DAMIEN, LIPA ####[facility] [id number] [place] [address]Dr. Andrea Garcia AST [Catalytic activity/Vol] 18 U/L Normal 15-[address] [facility] Comment on above: Performed By: #### C MADM, CMP, DAMIEN, LIPA ####[facility] [address] [place] [address]Dr. Andrea Garcia Bilirubin [Mass/Vol] 0.5 mg/dL Normal 0.2-1.[address] [facility] Comment on above: Performed By: #### C MADM, CMP, DAMIEN, LIPA ####[facility] [id number] [place] [address]Dr. Andrea Garcia Calcium [Mass/Vol] 8.5 mg/dL Normal 8.5-10.[address] [facility] Comment on above: Performed By: #### C MADM, CMP, DAMIEN, LIPA ####[facility] [address] [place] [address]Dr. Andrea Garcia Chloride [Moles/Vol] 108 mmol/L Critically high 98-[address] [facility] Comment on above: Performed By: #### C MADM, CMP, DAMIEN, LIPA ####[facility] [address] [place] [address]Dr. Andrea Garcia CO2 [Moles/Vol] 22.1 mmol/L Normal 21.0-32.[address] [facility] Comment on above: Performed By: #### C MADM, CMP, DAMIEN, LIPA ####[facility] [address] [place] [address]Dr. Andrea Garcia Creatinine [Mass/Vol] 1.06 mg/dL Normal 0.70-1.[address] [facility] Comment on above: Performed By: #### C MADM, CMP, DAMIEN, LIPA ####[facility] [address] [place] [address]Dr. Andrea Garcia EGFR-AF ARGENTINE >60 Normal >=[address] [facility] Comment on above: Performed By: #### C MADM, CMP, DAMIEN, LIPA ####[facility] [address] [place] [address]Dr. Andrea Garcia EGFR-NON AF ARGENTINE >60 Normal >=[address] [facility] Comment on above: Performed By: #### C MADM, CMP, DAMIEN, LIPA ####[facility] [address] [place] [address]Dr. Andrea Garcia Globulin (S) [Mass/Vol] 3.5 g/dL Normal [facility] Comment on above: Performed By: #### C MADM, CMP, DAMIEN, LIPA ####[facility] [address] [place] [address]Dr. Andrea Garcia Glucose [Mass/Vol] 110 mg/dL Critically high 74-106 T [facility] Comment on above: Performed By: #### C MADM, CMP, DAMIEN, LIPA ####[facility] [id number] [place] [address]Dr. Andrea Garcia Potassium [Moles/Vol] 4.3 mmol/L Normal 3.5-5.[address] [facility] Comment on above: Performed By: #### C MADM, CMP, DAMIEN, LIPA ####[facility] [address] [place] [address]Dr. Andrea Garcia Protein [Mass/Vol] 6.7 g/dL Normal 6.4-8.[address] [facility] Comment on above: Performed By: #### C MADM, CMP, DAMIEN, LIPA ####[facility] [address] [place] [address]Dr. Andrea Garcia Sodium [Moles/Vol] 140 mmol/L Normal 136-[address] [facility] Comment on above: Performed By: #### C MADM, CMP, DAMIEN, LIPA ####[facility] [address] [place] [address]Dr. Andrea Garcia Urea nitrogen [Mass/Vol] 20.0 mg/dL Critically high 7.0-18.[address] [facility] Comment on above: Performed By: #### C MADM, CMP, DAMIEN, LIPA ####[facility] [address] [place] [address]Dr. Andrea Garcia Urea nitrogen/Creatinine [Mass ratio] 18.9 mg/mg Normal The [facility] Comment on above: Performed By: #### C MADM, CMP, DAMIEN, LIPA ####[facility] [address] [place] [address]Dr. Andrea Garcia URINE MICROSCOPIC ONLYon BACTERIA NONE SEEN Normal NONE SEEN The [facility] Comment on above: Performed By: #### U MICRO, ERUR #### [facility] [address] [place] [address] [address] Andrea Garcia Bacteria identified Cx Nom (U) NOT INDICATED Normal The [facility] Comment on above: Performed By: #### U MICRO, ERUR #### [facility] [address] [place] [address] [address] Andrea Garcia CAST NONE SEEN Normal NONE SEEN [facility] Comment on above: Performed By: #### U MICRO, ERUR #### [facility] [address] [place] [address] Dr. Andrea Garcia Crystals LM Nom (Urine sed) NONE SEEN Normal NONE SEEN [facility] Comment on above: Performed By: #### U MICRO, ERUR #### [facility] [address] [place] [address] [address] Andrea Garcia Epithelial cells LM Ql (Urine sed) NONE SEEN Normal NONE SEEN /RARE The [facility] Comment on above: Performed By: #### U MICRO, ERUR #### [facility] [address] [place] [address] Dr. Andrea Garcia MUCOUS NONE SEEN Normal NONE SEEN The [facility] Comment on above: Performed By: #### U MICRO, ERUR #### [facility] [address] [place] [address] [address] Andrea Garcia RBC 0-2 Normal 0-[address] [facility] Comment on above: Performed By: #### U MICRO, ERUR #### [facility] [address] [place] [address] [address] Andrea Garcia WBC 0-2 Abnormal NONE SEEN The [facility] Comment on above: Performed By: #### U MICRO, ERUR #### [facility] [address] [place] [address] Dr. Andrea Garcia XR CHEST 1 Von 01-10-2023 XR CHEST 1 V Exam: Radiographs: X R CHEST 1 V Reason for exam: Nausea/vomiting Comparison: None IMPRESSION: Negative chest. Electronically authenticated by: ADITYA OATES Date: 2023-01-10 07:42 Normal [address] [facility] MRI Soft Tissue Neck w/o + [...] by KENN RAPHAEL on 10/06/2021 1605 Normal [facility] Specialist CT Soft Tissue Neck w/ Contr [...] by Que Greene on 09/29/2021 1013 Normal [facility] [employer] Vital Signs Date Time Vital Sign Value Performing Clinician Ethan liu 03-03-2023 13:30-0400 Diastolic blood pressure 100 mm[Hg] MD Rodrgiuez Godwin Work Phone: [facility] 03-03-2023 13:30-0400 Heart rate 59 /min MD Rodriguez Godwin Work Phone: [facility] 03-03-2023 13:30-0400 Respiratory rate 18 /min MD Rodriguez Godwin Work Phone: [facility] 03-03-2023 13:30-0400 SaO2% (BldA) [Mass fraction] 99 % MD Rodriguez Godwin Work Phone: [facility] 03-03-2023 13:30-0400 Systolic blood pressure 160 mm[Hg] MD Rodriguez Godwin Work Phone: [facility] 03-03-2023 11:36-0400 Body height 175.26 cm MD Rodriguez Godwin Work Phone: [facility] 03-03-2023 11:36-0400 Body temperature 98 [degF] MD Rodriguez Godwin Work Phone: [facility] 03-03-2023 11:36-0400 Body weight 84.3 kg MD Rodriguez Godwin Work Phone: [facility] Encounters Encounter Date Encounter Type Care Provider Facility Start: 06-07-2023 End: 06-07-2023 ambulatory SHIV CALVILLOO [facility] Start: 05-27-2023 End: 05-27-2023 ambulatory [facility] Start: 04-06-2023 ambulatory [facility] Start: 04-06-2023 End: 04-06-2023 ambulatory [facility] Start: 03-21-2023 End: 03-21-2023 ambulatory MATTIE AVALOS [facility] Start: 03-03-2023 End: 03-03-2023 Emergency department patient visit Rodriguez Godwin Facility:[facility] Start: 03-03-2023 End: 03-03-2023 Emergency department patient visit MD Rodriguez Godwin Work Phone: [facility] Work Phone: Start: 01-10-2023 End: 01-11-2023 Evaluation and management of inpatient DR DOCTOR CROCKER Facility:H1 Procedures Date Procedure Procedure Detail Performing Clinician Start: 03-03-2023 Plain chest X-ray MD Valdivia Work Phone: Plan of Treatment Date Care Activity Detail Author Patient Education Syncope (faint ing) Anxiety, Adult ED [facility] Work Phone: Patient referral [facility] Work Phone: Payers Date Payer Category Payer Self-pay [id number] 1960 Medicare [id number] 1950 Unknown [id number] Unknown [id number] Social History Date Type Detail Facility Start: [facility] Start: 1950 Sex Assigned At Male F [facility] Clinical Notes 03-15-2023 to 06-07-2023 Note [...] Heart Sounds: norm (more content not included)... [facility] 05-27-2023 Note [place] [facility]iology - [facility] Subjective Jeb [...] Rate 04/06/2023 80 Atrial Rate 04/06/2023 80 [place] Interval 04/06/2023 176 QRS DURATION 04/06/2023 98 QT Interval 04/06/2023 396 QTC CALCULATION(BAZETT) 04/06/2023 456 P [place] 04/06/2023 79 R-[place] 04/06/2023 75 T Wave [place] 04/06/2023 73 Imaging and other tests Cardiac catheterization 04/06/2023: Impression/Findings: Coronary angiogram shows non-obstructive coronary artery disease. Plan: Medical therapy for (more content not included)... [facility] 04-06-2023 Note Yes he should. For s yncope he needs a 30d monitor. Can we set him up with a visit either with me or dr. Shirley and 30d monitor please, can do monitor at visit or prior to, whichever works best [facility] 04-06-2023 Note Patient: Jeb lamb Procedure Information Date/Time: 04/06/23 1400 Procedure: Coronary angiography (Left) Location: [facility] [facility] [employer] 3 / [facility] (Cath) Providers: Jessica Forrester MD [...] Plan discussed with attending. Additional Equipment Requests [facility] 03-21-2023 Note Will continue to mon itor with routine echocardiograms. [facility] 03-21-2023 Note Currently euvolemic without and volume overload Elevated rt disided pressures may be r/t pulmonary process in light of + smoking. [facility] 03-21-2023 Note Will continue to monitor. Stephane mccarthy [facility] 03-21-2023 Note Resume metoprolol 50 mg po bid for arrythmia management Plan for cardiac cath and may need evaluation with EP [facility] 03-21-2023 Note Hypertension is impr jc but he stopped taking metoprolol 100 mg bid r\t fatigue. Will resume metoprolol at 50 mg bid and increase lisinopril to 40 mg daily. Repeat BMP in 1 week [facility] 03-21-2023 Note In light of unstable angina with uncontrolled HTN, multiple syncopal episodes and NSVT will send pt for heart cath- Lt Cors and cancel stress test at this time for ischemic evaluation. [facility] 03-21-2023 Note In light pt admits 2 episodes of syncope while on vacation in [place] with his daughter- denied any symptoms prior to waking up on the floor- broke 3 front teeth in one episode. [facility] 03-21-2023 Note [facility] CARDIOLOGY PROGR ESS NOTE HPI: Jeb Riddle is a 72 y.o. male here for hospital f/U after recent inpt at [facility] for chest pain, uncontrolled HTN HPI Pt [...] pain, SOB or palpitations. Was evaluated in [facility] ED recently for near syncope. Reports that [...] episodes of syncope while on vacation in [place] with his daughter- denied any symptoms prior [...] monitor with routine echocardiograms. RTC post cath [facility] 03-21-2023 Note Patient here for [facility] for chest pain and hypertension. Says the isosorbide has helped a lot. Denies SOB, palpitations, and syncope. Feels much better s/p hospital discharge. Review of Systems All other systems reviewed and are negative. [facility] 03-21-2023 Note [facility]TP CARDIOLOGY PROGR ESS NOTE HPI: Jeb Riddle is a 72 y.o. male here for hospital f/U after recent inpt at [facility] for chest pain, uncontrolled HTN HPI Pt [...] pain, SOB or palpitations. Was evaluated in [facility] ED recently for near syncope. Reports that [...] episodes of syncope while on vacation in [place] with his daughter- denied any symptoms prior [...] monitor with routine echocardiograms. RTC post cath [facility] 03-15-2023 Note Pt was seen as new c onsult at [facility] yesterday for chest pain, Unstable angina, [...] ordered. Mattie Avalos NP Division of Cardiology, [facility]- [phone] Pager- [phone] Email- [email or web address] Evaluation note No assessment information availa [facility] Work Phone: Summary Purpose Family History [...] section and content) DATE CREATED AUTHOR 10/07/2021 [facility] dical Specialist DATE CREATED AUTHOR AUTHOR'S ORGANIZ ATION 01/21/2023 [facility] DATE CREATED AUTHOR AUTHOR'S ORGANIZ ATION 03/16/2023 [facility] DATE CREATED AUTHOR AUTHOR'S ORGANIZ ATION 06/08/2023 [facility] Care Teams (unrecognized sec tion and content) [...] BE BASED ON THE PRIMARY CLINICAL RECORDS. [facility] [employer] [facility]. provides no warranty or guarantee of the accuracy or completeness of information in this document.
--- NOTE | 2023-12-02 08:28 | XR_ITS ---
The [place] [id number] Patient Name: JEB TOBIAS MRN: [id number] date: 1950 Sex: M Assigned Patient Location: ED.MAIN Current Patient Location: ED.MAIN Accession/Order Number: [id number] Exam Date: 12/02/2023 09:02 Report Date: 12/02/2023 09:33 At the request of: DANYELLE OROPEZA Procedure: XR chest 1V EXAM: XR chest 1V HISTORY: dizzy COMPARISON: None. TECHNIQUE: AP view of the chest. FINDINGS: The cardiomediastinal silhouette is normal. The lungs are clear. There is no pneumothorax. No pleural effusion is noted. The osseous structures are intact. XR/XR chest 1V IMPRESSION: No acute cardiopulmonary process. Electronically authenticated by: JEB NIX Date: 12/02/2023 09:33
--- NOTE | 2023-12-02 08:28 | CT_ITS ---
The [address] [address] Patient Name: JEB TOBIAS MRN: [id number] date: 1950 Sex: M Assigned Patient Location: ED.MAIN Current Patient Location: ED.MAIN Accession/Order Number: [id number] Exam Date: 12/02/2023 09:02 Report Date: 12/02/2023 09:25 At the request of: DANYELLE OROPEZA Procedure: CT head/brain wo con EXAM: CT head/brain wo con HISTORY: ataxia/dizzy . Frontal headache. Imbalance. No head trauma. COMPARISON: None. TECHNIQUE: Contiguous transaxial images were obtained from skull base to vertex without administration of intravenous contrast. Dose reduction: mA and/or kV are were adjusted by automated exposure control software based upon patients height and weight. FINDINGS: There is no focal scalp soft tissue swelling or acute calvarial fracture. The visualized globes and orbits are grossly normal. There is mild paranasal sinus mucosal thickening without air-fluid levels.. Bilateral mastoid air cells are clear. The ventricles and sulci are prominent bilaterally. There is periventricular and deep subcortical white matter low-attenuation consistent with small vessel ischemic disease. There is no intraparenchymal hemorrhage, extraaxial fluid collection, mass lesion, or acute large territory ischemia by noncontrast CT. CT/CT head/brain wo con IMPRESSION: 1. No acute intracranial hemorrhage or acute large territory ischemia by noncontrast CT 2. Mild age-appropriate cerebral and tree and chronic small vessel ischemic disease. 3. No acute sinusitis. There is only mild paranasal sinus mucosal thickening without air-fluid levels. If the patient has a focal neurologic deficit or there is clinical suspicion for acute cerebrovascular accident, brain MRI would be recommended for further evaluation. Electronically authenticated by: DESTINI HANDLEY Date: 12/02/2023 09:25
--- NOTE | 2023-12-02 08:28 | ECG_ITS ---
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
--- NOTE | 2023-12-02 08:29 | ED_ITS ---
HPI HPI - General Adult General Chief complaint: Headache Stated complaint: headache/ general weakness Time Seen by Provider: 12/02/23 08:15 Source: patient Mode of arrival: walk-in Limitations: no limitations History of Present Illness HPI narrative: 73-year-old male presents for feeling off balance. It started at 330 this morning, he was awake watching TV. Anterior vertex of his head. No trauma fever or stiff neck. No localizing weakness in his arms or legs. He felt that he was off balance, like he could not walk in a straight line. He does not describe a spinning sensation. No vomiting or diarrhea. It appears to be of abrupt onset and he has never had symptoms like this previously. Related Data Home Medications ?Medication ?Instructions ?Recorded ?Confirmed lisinopril 5 mg tablet 10 mg PO BID 02/25/23 12/02/23 mesalamine 400 mg capsule (with 800 mg PO BID 02/25/23 12/02/23 delayed release tablets inside) desvenlafaxine succinate 50 mg 50 mg PO DAILY 03/14/23 12/02/23 tablet,extended release 24 hr ondansetron 8 mg disintegrating 8 mg PO Q8H PRN nausea and vomiting 09/02/23 12/02/23 tablet Previous Rx's ?Medication ?Instructions ?Recorded aspirin 325 mg tablet 325 mg PO DAILY #30 tabs 03/14/23 isosorbide mononitrate 30 mg 30 mg PO QAM #30 tabs 03/14/23 tablet,extended release 24 hr Allergies Allergy/AdvReac Type Severity Reaction Status Date / Time Fish Containing Products AdvReac Severe Abdominal Verified 03/13/23 14:40 Pain Opioid HPI Opioid Management Most Recent Opioid Data: Last Pain Scale 10 11/01/23 20:07 Review of Systems ROS Narrative A ten point review of systems is negative except as noted above. [facility] Medical History (Updated 12/02/23 @ 12:59 by Jose Alberto Worley MD) Dehydration ?E86.0 - Dehydration (ICD-10) DAVID (acute kidney injury) ?N17.9 - Acute kidney failure, unspecified (ICD-10) Abdominal pain ?R10.9 - Unspecified abdominal pain (ICD-10) Nausea & vomiting ?R11.2 - Nausea with vomiting, unspecified (ICD-10) Hypertension ?I10 - Essential (primary) hypertension (ICD-10) Crohn disease ?K50.90 - Crohn's disease, unspecified, without complications (ICD-10) Surgical History (Updated 03/13/23 @ 20:01 by Bita Cyr RN) History of bowel resection ?Z90.49 - Acquired absence of other specified parts of digestive tract (ICD- 10) Family History (Updated 03/13/23 @ 20:02 by Bita Cyr RN) Father Family history of COPD (chronic obstructive pulmonary disease) Family history of diabetes mellitus Family history of myocardial infarction Brother Family history of cancer Mother Family history of diabetes mellitus Other Family history of hypertension Social History Within the past year, how often did you have a drink containing alcohol: 2-3 times a week Within the past year, how many standard drinks containing alcohol did you have on a typical day: 1 or 2 Within the past year, how often did you have six or more drinks on one occasion: never Total score: 0 Score interpretation: A score less than 4 is consistent with normal alcohol consumption. 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 Little interest or pleasure in doing things: not at all Feeling down, depressed, or hopeless: not at all Feel stressed/tense/nervous/anxious/difficulty sleeping: not at all Do you think of yourself as: straight/heterosexual Gender Identity: male Exam Narrative Exam Narrative: Nurses note and vital signs reviewed and patient is not hypoxic. General: The patient appears well and in no apparent distress. Patient is resting comfortably on cart. Skin: Warm, dry, no pallor noted. There is no rash noted. Head: Normocephalic, atraumatic Eye: Normal conjunctiva, no drainage, EOMI. PERRL, no nystagmus Ears, Nose, Mouth, and Throat: oral mucosa is moist. Nares patent. External ear canals are patent. Cardiovascular: Regular Rate and Rhythm Respiratory: Patient is in no distress, no accessory muscle use, lungs are clear to auscultation, no wheezing, rales or rhonchi Back: non-tender GI: Soft and Musculoskeletal: The patient has no evidence of calf tenderness, no pitting edema, symmetrical pulses noted bilaterally Neurological: Awake alert and oriented. Speech normal. Upper and lower extremity strength 5 out of 5 and symmetric. No pronator drift. No nystagmus. Cranial nerves II through XII intact Psychiatric: Cooperative Constitutional Vital Signs, click to edit/add: Last Vital Signs Temp 97.9 F 12/02/23 08:16 Pulse 75 12/02/23 10:00 Resp 20 12/02/23 10:00 BP 123/78 12/02/23 10:00 Pulse Ox 94 L 12/02/23 09:50 O2 Del Method Room Air 12/02/23 08:16 Course Vital Signs Vital signs: Vital Signs Temperature 97.9 F 12/02/23 08:16 Pulse Rate 101 H 12/02/23 08:16 Respiratory Rate 15 12/02/23 08:16 Blood Pressure 125/81 12/02/23 08:16 Pulse Oximetry 96 12/02/23 08:16 Oxygen Delivery Method Room Air 12/02/23 08:16 Temperature 97.9 F 12/02/23 08:16 Pulse Rate 75 12/02/23 10:00 Respiratory Rate 20 12/02/23 10:00 Blood Pressure 123/78 12/02/23 10:00 Pulse Oximetry 94 L 12/02/23 09:50 Oxygen Delivery Method Room Air 12/02/23 08:16 Medical Decision Making [facility] Narrative Medical decision making narrative: The patient is feeling improved after IV fluids. His creatinine was somewhat elevated above his baseline at 1.49. CT and CTA head and neck are all negative and he is able to be discharged home. The possibility of labyrinthitis was discussed with the patient. Differential Diagnosis Differential Diagnosis: Labyrinthitis, vertigo, dehydration, anemia, electrolyte imbalance Lab Data Lab results reviewed: Yes I reviewed the patient's lab results Labs: Lab Results 12/02/23 12/02/23 Range/Units 08:40 09:26 WBC 7.3 (4.0-11.0) 10^3/uL RBC 4.24 L (4.70-6.10) 10^6/uL Hgb 13.2 L (14.0-18.0) g/dL Hct 39.6 L (42.0-54.0) % MCV 93.4 (80.0-94.0) fL MCH 31.1 (25.9-34.0) pg MCHC 33.3 (29.9-35.2) g/dL RDW 13.5 (11.0-15.0) % Plt Count 252 (150-450) 10^3/uL MPV 9.1 L (9.5-13.5) fL Neut % (Auto) 66.4 (43.0-75.0) % Lymph % (Auto) 23.9 (20.5-60.0) % [place] % (Auto) 7.8 (1.7-12.0) % Eos % (Auto) 1.2 (0.9-7.0) % Baso % (Auto) 0.4 (0.2-2.0) % Neut # (Auto) 4.9 (1.4-6.5) 10^3/uL Lymph # (Auto) 1.8 (1.2-3.8) 10^3/uL [place] # (Auto) 0.6 (0.3-0.8) 10^3/uL Eos # (Auto) 0.1 (0.0-0.7) 10^3/uL Baso # (Auto) 0.0 (0.0-0.1) 10^3/uL Abs Immat Gran (auto) 0.02 (0.00-0.03) 10^3/uL Imm/Tot Granulo (auto) 0.3 (0.0-0.5) % Sodium 143 (136-145) mmol/L Potassium 4.4 (3.5-5.1) mmol/L Chloride 107 (98-107) mmol/L Carbon Dioxide 27.2 (21.0-32.0) mmol/L Anion Gap 13.2 BUN 19.0 H (7.0-18.0) mg/dL Creatinine 1.49 H (0.70-1.30) mg/dL Est GFR ( Amer) 56 L (>=60) Est GFR (Non-Af Amer) 46 L (>=60) BUN/Creatinine Ratio 12.8 Glucose 113 H (74-106) mg/dL Calcium 8.7 (8.5-10.1) mg/dL Troponin I High Sens 27.4 (4.0-76.1) pg/mL Urine Color Lt. yellow (YELLOW) Urine Clarity Clear (CLEAR) Urine pH 6.0 (5.0-9.0) Ur Specific [place] 1.015 (1.005-1.025) Urine Protein Negative (NEG/TRACE) mg/dL Urine Glucose (UA) Negative (NEGATIVE) mg/dL Urine Ketones Negative (NEGATIVE) mg/dL Urine Occult Blood Moderate A (NEGATIVE) Urine Nitrite Negative (NEGATIVE) Urine Bilirubin Negative (NEGATIVE) Urine Urobilinogen 0.2 (0.2-1.0) EU/dL Ur Leukocyte Esterase Trace A (NEGATIVE) Urine RBC 5-10 A (0-2) #/HPF Urine WBC 0-2 A (NONE SEEN) #/HPF Ur Squamous Epith Cells Rare (NONE/RARE) #/LPF Urine Crystals None seen (None Seen) #/HPF Urine Bacteria Small A (NONE SEEN) #/HPF Urine Casts None seen (NONE SEEN) #/LPF Urine Mucus None seen (NONE SEEN) Imaging Data CT scan - head: Radiologist's impression: ITS Impressions Chest X-Ray 12/02/23 08:28 IMPRESSION: No acute cardiopulmonary process. Electronically authenticated by: JEB NIX Date: 12/02/2023 09:[address] 12/02/23 08:28 IMPRESSION: 1. No acute intracranial hemorrhage or acute large territory ischemia by noncontrast CT 2. Mild age-appropriate cerebral and tree and chronic small vessel ischemic disease. 3. No acute sinusitis. There is only mild paranasal sinus mucosal thickening without air-fluid levels. If the patient has a focal neurologic deficit or there is clinical suspicion for acute cerebrovascular accident, brain MRI would be recommended for further evaluation. Electronically authenticated by: DESTINI HANDLEY Date: 12/02/2023 09:25 Head CTA 12/02/23 09:40 IMPRESSION: No CT evidence of embolus or severe stenosis or dissection in the major arteries in the current study. CAROTID STENOSIS REFERENCE: MILD = <50% stenosis. MODERATE = 50-69% stenosis. SEVERE = >70% stenosis. Electronically authenticated by: [employer] Date: 12/02/2023 12:48 Neck CTA 12/02/23 09:40 IMPRESSION: No CT evidence of embolus or severe stenosis or dissection in the major arteries in the current study. CAROTID STENOSIS REFERENCE: MILD = <50% stenosis. MODERATE = 50-69% stenosis. SEVERE = >70% stenosis. Electronically authenticated by: [employer] Date: 12/02/2023 12:48 ECG Data Attestation: I personally reviewed and interpreted this ECG as follows: (EKG on my interpretation shows normal sinus rhythm without acute change and a rate of 86.) Discharge Plan Discharge Stand Alone Forms: Portal Instructions Chief Complaint: Headache Clinical Impression: Dizziness Patient Disposition: Home, Self-Care Time of Disposition Decision: 12:58 Condition: Good Mode of Transportation: Private Vehicle Prescriptions / Home Meds: No Action desvenlafaxine succinate 50 mg tablet extended release 24 hr 50 mg PO DAILY aspirin 325 mg Tablet 325 mg PO DAILY Qty: 30 11RF isosorbide mononitrate 30 mg tablet extended release 24 hr 30 mg PO QAM Qty: 30 11RF ondansetron 8 mg tablet,disintegrating 8 mg PO Q8H PRN (Reason: nausea and vomiting) lisinopril 5 mg tablet 10 mg PO BID mesalamine 400 mg capsule (with del rel tablets) 800 mg PO BID Print Language: Irish Instructions: Dizziness (ED) Referrals: Rodriguez Godwin MD [Primary Care Provider] - 1 week
[2023-12-02 08:59] LABS: Basophils Percent Auto 0.4 % (0.2-2.0); Eosinophils Absolute Auto 0.1 10^3/uL (0.0-0.7); Eosinophils Percent Auto 1.2 % (0.9-7.0); Hematocrit 39.6 % (42.0-54.0); Hemoglobin 13.2 g/dL (14.0-18.0); Immature Granulocytes Abs Auto 0.02 10^3/uL (0.00-0.03); Immature Granulocytes Pct Auto 0.3 % (0.0-0.5); Lymphocytes Absolute Auto 1.8 10^3/uL (1.2-3.8); Lymphocytes Percent Auto 23.9 % (20.5-60.0); Mean Corpuscular HGB Conc 33.3 g/dL (29.9-35.2); Mean Corpuscular Hemoglobin 31.1 pg (25.9-34.0); Mean Corpuscular Volume 93.4 fL (80.0-94.0); Mean Platelet Volume 9.1 fL (9.5-13.5); Monocytes Absolute Auto 0.6 10^3/uL (0.3-0.8); Monocytes Percent Auto 7.8 % (1.7-12.0); Neutrophils Absolute Auto 4.9 10^3/uL (1.4-6.5); Neutrophils Percent Auto 66.4 % (43.0-75.0); Platelet Count 252 10^3/uL (150-450); Red Blood Count 4.24 10^6/uL (4.70-6.10); Red Cell Distribution Width 13.5 % (11.0-15.0); White Blood Count 7.3 10^3/uL (4.0-11.0)
[2023-12-02 09:15] LABS: Anion Gap 13.2; BUN Creatinine Ratio 12.8; Calcium 8.7 mg/dL (8.5-10.1); Carbon Dioxide 27.2 mmol/L (21.0-32.0); Chloride 107 mmol/L (98-107); Estimated GFR (African America 56 (>=60); Estimated GFR (Non-African Ame 46 (>=60); Glucose 113 mg/dL (74-106); Potassium 4.4 mmol/L (3.5-5.1); Sodium 143 mmol/L (136-145); Troponin I High Sensitivity 27.4 pg/mL (4.0-76.1)
[2023-12-02 09:35] LABS: Bilirubin Urine NEGATIVE (NEGATIVE); Blood Urine MODERATE (NEGATIVE); Clarity Urine CLEAR (CLEAR); Color Urine LT. YELLOW (YELLOW); Glucose Urine UA NEGATIVE (NEGATIVE); Ketones Urine NEGATIVE (NEGATIVE); Leukocyte Esterase Urine TRACE (NEGATIVE); Nitrite Urine NEGATIVE (NEGATIVE); Protein Urine NEGATIVE (NEG/TRACE); Specific Gravity Urine 1.015 (1.005-1.025); Urobilinogen Urine 0.2 EU/dL (0.2-1.0)
--- NOTE | 2023-12-02 09:36 | PC.NURSE ---
Safety plan received from [facility]. Patient signed safety plan and signed plan faxed back to [facility].
--- NOTE | 2023-12-02 09:40 | CT_ITS ---
The [address] [address] Patient Name: JEB TOBIAS MRN: [id number] date: 1950 Sex: M Assigned Patient Location: ER Current Patient Location: ER Accession/Order Number: [id number] Exam Date: 12/02/2023 11:49 Report Date: 12/02/2023 12:48 At the request of: DANYELLE OROPEZA Procedure: CT angio neck CT angio head, CT angio neck, 12/02/2023 11:49 AM EDT INDICATION: Dizziness COMPARISON: CT of the head of the same date TECHNIQUE: Pre and postcontrast enhanced CT angiography of the head and neck were acquired with contrast .3 D MIP images were reconstructed in sagittal and coronal format at the scanner and were evaluated at the time of dictation. Dose reduction techniques were achieved by using automated exposure control and/or adjustment of mA and/or kV according to patient size and/or use of iterative reconstruction technique. FINDINGS: The great vessels enhance normally. No filling defects are identified within the carotid arteries. There is no stenosis at the origin of the internal carotid arteries. No abnormality of [place] is noted. The TONY MCA and RANGE MOUNTER are unremarkable. The anterior and posterior communicating arteries are patent. There is no aneurysm or significant stenosis. No abnormality of the vertebral and basilar arteries is noted. No mass, mass effect or midline shift or hemorrhage in the brain parenchyma is noted. No significant soft tissue abnormality within the neck is noted. The visualized portion of the lungs is unremarkable. No suspicious bone lesion is noted. Multilevel degenerative changes of cervical spine. CT/CT angio neck IMPRESSION: No CT evidence of embolus or severe stenosis or dissection in the major arteries in the current study. CAROTID STENOSIS REFERENCE: MILD = <50% stenosis. MODERATE = 50-69% stenosis. SEVERE = >70% stenosis. Electronically authenticated by: LOLA GARDNER Date: 12/02/2023 12:48
--- NOTE | 2023-12-02 09:40 | CT_ITS ---
The [address] [address] Patient Name: JEB TOBIAS MRN: [id number] date: 1950 Sex: M Assigned Patient Location: ER Current Patient Location: ER Accession/Order Number: [id number] Exam Date: 12/02/2023 11:49 Report Date: 12/02/2023 12:48 At the request of: DANYELLE OROPEZA Procedure: CT angio head CT angio head, CT angio neck, 12/02/2023 11:49 AM EDT INDICATION: Dizziness COMPARISON: CT of the head of the same date TECHNIQUE: Pre and postcontrast enhanced CT angiography of the head and neck were acquired with contrast .3 D MIP images were reconstructed in sagittal and coronal format at the scanner and were evaluated at the time of dictation. Dose reduction techniques were achieved by using automated exposure control and/or adjustment of mA and/or kV according to patient size and/or use of iterative reconstruction technique. FINDINGS: The great vessels enhance normally. No filling defects are identified within the carotid arteries. There is no stenosis at the origin of the internal carotid arteries. No abnormality of [place] is noted. The TONY MCA and [employer] CH[employer] are unremarkable. The anterior and posterior communicating arteries are patent. There is no aneurysm or significant stenosis. No abnormality of the vertebral and basilar arteries is noted. No mass, mass effect or midline shift or hemorrhage in the brain parenchyma is noted. No significant soft tissue abnormality within the neck is noted. The visualized portion of the lungs is unremarkable. No suspicious bone lesion is noted. Multilevel degenerative changes of cervical spine. CT/CT angio head IMPRESSION: No CT evidence of embolus or severe stenosis or dissection in the major arteries in the current study. CAROTID STENOSIS REFERENCE: MILD = <50% stenosis. MODERATE = 50-69% stenosis. SEVERE = >70% stenosis. Electronically authenticated by: LOLA GARDNER Date: 12/02/2023 12:48
[2023-12-02] MEDS: 0.9 % SODIUM CHLORIDE 1,000 ML 1000 ML IV ×2 (10:00→12:35)
[2023-12-02 10:35] LABS: WBC Urine 0-2 #/HPF (NONE SEEN)
[2023-12-02 10:36] LABS: Bacteria Urine SMALL #/HPF (NONE SEEN); Crystals Seen? None Seen #/HPF (None Seen); Mucus Urine NONE SEEN (NONE SEEN); Squamous Epithelial Cell Urine RARE #/LPF (NONE/RARE)
[2023-12-02 10:37] LABS: Cast Seen? NONE SEEN #/LPF (NONE SEEN)
[2023-12-02] MEDS: lidocaine HCL 15 ML, MAG HYDROX/ALUMINUM HYD/SIMETH 30 ML, HYOSCYAMINE SULFATE 0.25 MG PO (10:56)
== END 2023-12-02 13:12 | disposition home or self-care (01) ==
PROVIDERS: Emergency Provider Emergency Medicine; Family Provider Family Medicine; PCP Family Medicine
DX: R42 Dizziness and giddiness (principal); I10 Essential (primary) hypertension; K50.90 Crohn's disease, unspecified, without complications; Z90.49 Acquired absence of other specified parts of digestive tract; Z79.899 Other long term (current) drug therapy; Z87.891 Personal history of nicotine dependence
CPT/HCPCS: 36415; 70450; 70496; 70498; 71045; 80048; 81001; 84484; 85025; 93005; 99285; Q9967

== ENCOUNTER 2024-02-02 07:01 | Outpatient (OUT) | payer MEDICARE, SELFPAY ==
--- NOTE | 2024-02-02 07:04 | CA_ITS ---
Patient Name: JEB TOBIAS MR#: [id number] : 1950 Exam Date: 02/02/2024 Ordering Doctor: DR JESSICA BAH M.D. ECHOCARDIOGRAM REPORT PROCEDURE: CA ECHO DOPPLER COMPLETE INDICATIONS: Cardiomegally, Hypertensive heart disease COMPARISON: None. DESCRIPTION: COMPLETE ECHOCARDIOGRAM Real-time transthoracic echocardiography with 2D, M-mode, spectral and color flow Doppler performed. QUALITY: Technical quality was good. LEFT VENTRICLE: Normal chamber size. Thickened septal wall. Moderate concentric left ventricular hypertrophy. Global left ventricular systolic function is normal. LV EF: Visual estimation of left ventricular ejection fraction is 65-70% DIASTOLIC: Grade 2 diastolic dysfunction. ATRIAL SEPTUM: LEFT ATRIUM: Mild dilatation. RIGHT ATRIUM: Mild dilatation. RIGHT VENTRICLE: Normal chamber size. Normal right ventricular systolic function. TRICUSPID VALVE: Normal mobility and thickness. No stenosis with mild regurgitation. Moderate pulmonary hypertension. RVSP 52 mmHg MITRAL VALVE: Mildly thickened with normal mobility. No evidence of mitral valve stenosis. There is no mitral annular calcification. Trivial mitral regurgitation. AORTIC VALVE: Normal trileaflet appearance. No visible sclerosis. Normal leaflet mobility. No evidence of aortic valve stenosis. Mild to moderate aortic regurgitation. AORTIC ROOT: Mildly dilated, measuring 3.8 cm. The ascending aorta is normal diameter and appearance, measuring 3.6 cm. PULMONIC VALVE: Normal thickness and mobility. No stenosis. Trivial regurgitation. PERICARDIUM: No evidence of pericardial effusion. IVC: Collapses with inspirations. Normal size. PLEURA: CONCLUSION: 1. Mild to moderate concentric left ventricular hypertrophy with normal systolic function. LVEF is estimated at 65 to 70%. 2. Normal right ventricular size and systolic function. 3. Grade 2 diastolic dysfunction. 4. Mild to moderate aortic regurgitation. 5. Mild tricuspid regurgitation. 6. Moderately elevated right-sided pressures. RVSP is 52 mmHg. 7. Mildly dilated aortic root measuring 3.8 cm. Adult Echocardiography Procedure Report Left Ventricle LVEDD (3.7 - 5.6 cm): 4.39 cm LVESD (2.2 - 4.0 cm): 2.59 cm LVIVS thickness (0.6 - 1.2 cm): 1.84 cm LVPW thickness (0.5 - 1.0 cm): 1.22 cm e': 0.09 m/s E - e': 8.94 LVOT Max Gradient: 4.48 mm[Hg] LVOT Area (cm2): 1.06 m/s Peak Velocity (LVOT): 1.06 m/s Mean Velocity (LVOT): 0.72 m/s LVOT Diameter 2.25 cm Left Ventricular Ejection Fraction: 65-70 % Left Atrium LA Volume Index (2D A2C): 44.60 ml/m2 Left Atrium Systolic Dimension: 4.06 cm Mitral Valve MV E to A Ratio: 1.44 Mitral Valve A-Wave Peak Velocity: 0.54 m/s Mitral Valve E-Wave Peak Velocity: 0.77 m/s Right Ventricle RV Internal Diastolic Dimension: 3.00 cm Aorta AO Root Diam: 3.84 cm Ascending Ao Diam: 3.62 cm Aortic Valve AoV Area (Peak Zac): 3.76 cm2, 3.76 cm2 AoV Area (VTI): 3.40 cm2, 3.40 cm2 Deceleration [place]: 2.09 m/s2 Pressure Half-Time: 649.89 ms Peak Velocity(Antegrade Flow): 1.11 m/s Peak Gradient(Antegrade Flow): 4.96 mm[Hg] Mean Velocity(Antegrade Flow): 0.84 m/s Mean Gradient(Antegrade Flow): 3.08 mm[Hg] Velocity Time Integral: 28.79 cm Tricuspid Valve Peak Velocity (Regurgitant Flow): 2.84 m/s, 3.51 m/s, 3.26 m/s Pulmonic Valve Mean Gradient: 1.88 mm[Hg], 2.18 mm[Hg] Mean Velocity: 0.64 m/s, 0.70 m/s Peak Velocity: 0.94 m/s Peak Gradient: 3.23 mm[Hg], 3.90 mm[Hg] Right Atrium Right Atrium Systolic Pressure: 51.13 ml, 51.13 ml Dictated by: Jessica Bah M.D. on 02/03/2024 at 18:09 Approved by: Jessica Bah M.D. on 02/03/2024 at 18:12
--- OUTSIDE RECORDS SUMMARY | 2024-02-02 07:04 | XMS_ITS | CCD ---
Author Organization [facility] Care Team Providers Care Bulk Driver Name Role Phone DR BEHZAD CROCKER Primary Care Unavailable DANIEL ., JUNI Attending Unavailable DANEIL ., JUNI Admitting Unavailable DR ROBERT DAVENPORT V Consulting Unavailable PITER GROSSMAN Consulting Unavailable DANIEL ., JUNI Consulting Unavailable DIAB ., GRAYSON Consulting Unavailable ADITYA OATES Consulting Unavailable MD Rodriguez Godwin Primary Care Provider [phone] DO Ramiro Cortez Emergency Provider [phone] JESSICA FORRESTER Admitting Unavailable JESSICA FORRESTER Attending Unavailable JESSICA FORRESTER Referring Unavailable JESSICA FORRESTER Attending Unavailable SHIV SHIRLEY Attending Unavailable JESSICA FORRESTER Attending Unavailable MATTIE AVALOS Attending Unavailable MD Rodriguez Godwin Primary Care Provider [phone] KYA Garrison Emergency Provider Deb [facility] Naima Phelan Emergency Provider [phone] Rodriguez Godwin Primary Care Unavailable Naima Boyd Admitting Unavailable Naima Boyd Attending Unavailable Ramiro Cortez Admitting Unavailable Ramiro Cortez Attending Unavailable Rodriguez Godwin Primary Care Unavailable Marie Garrison Attending Unavailable Rodriguez Godwin Primary Care Unavailable Marie Garrison Admitting Unavailable Allergies Allergy Classification Reported Allergen(s) Allergy Type Date of Onset Reaction(s) Facility (2 sources) Fish derivative; Translations: [fish derived] Propensity to adverse reactions 03-03-20 23 Gastrointestinal Upset [facility] Medications Current Medications Medication Drug Class(es) Dates Sig (Normalized) Sig (Original) lisinopril 5 mg oral tablet (6 sources) Angiotensin Converting Enzyme Inhibitor Start: 03-03-2023 take 5 mg by mouth twice daily Lisinopril Active 5 MG PO Twice daily March 03, 2023 12:00am Start: 09-06-2019 End: 03-03-2023 take 10 mg by mouth twice daily Lisinopril Discontinued 10 MG PO Twice daily September 06, 2019 1:00am March 03, 2023 12:47pm LORazepam 1 mg oral tablet (3 sources) Benzodiazepine Start: 03-03-2023 take 1 tablet by mouth every twelve hours Lorazepam (Ativan) 1 mg tablet Active 1 MG PO Q12H 7 3 March 03, 2023 12:00am mesalamine 400 mg delayed release oral capsule (3 sources) Aminosalicylate Start: 09-06-2019 take 1 tablet by mouth four times daily Mesalamine (Delzicol) 400 mg Capsule (With Del Rel Tablets) Active 400 MG PO Four times daily September 06, 2019 1:00am Completed/Discontinued Medications Medication Drug Class(es) Dates Sig (Normalized) Sig (Original) ondansetron 8 mg disintegrating oral tablet (3 sources) Serotonin-3 Receptor Antagonist Start: 09-06-2019 End: 03-03-2023 Ondansetron Discontinued 8 MG PO As Directed September 06, 2019 1:00am March 03, 2023 12:48pm Problems Active Problems Problem Classification Problem Date Documented Date Episodic/Chronic Anxiety disorders (7 sources) Anxiety; Translations: [Anxiety disorder, unspecified] Onset: 03-03-2023 03-03-2023 Chronic Calculus of urinary tract (1 source) Personal history of urinary calculi; Translations: [PERSONAL HISTORY OF URINARY CALCULI] Onset: 01-12-2023 Episodic Conditions associated with dizziness or vertigo (1 source) Dizziness and giddiness; Translations: [Dizziness and giddiness] Onset: 12-18-2023 Episodic Congestive heart failure; nonhypertensive (1 source) Congestive heart failure; Translations: [Heart failure, unspecified] 01-09-2024 Chronic Coronary atherosclerosis and other heart disease (6 sources) Atherosclerotic heart disease of teller coronary artery without angina pectoris; Translations: [Atherosclerotic heart disease of teller coronary artery with other forms of angina pectoris] Onset: 03-15-2023 Chronic Essential hypertension (3 sources) Essential (primary) hypertension; Translations: [ESSENTIAL PRIMARY HYPERTENSION] Onset: 01-12-2023 Chronic Heart valve disorders (4 sources) Nonrheumatic mitral (valve) insufficiency; Translations: [Nonrheumatic aortic (valve) insufficiency] Onset: 03-21-2023 Chronic Other aftercare (1 source) 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; Translations: [PLATE PRINTER USE OF SYSTEMIC STEROIDS] Onset: 01-12-2023 Episodic Other aftercare (1 source) Other oysterman (current) drug therapy; Translations: [OTH PLATE PRINTER CURRENT DRUG THERAPY] Onset: 01-12-2023 Episodic Other and ill-defined heart disease (2 sources) Cardiomegaly; Translations: [Cardiomegaly] Onset: 12-09-2023 Chronic Other and ill-defined heart disease (2 sources) Heart disease, unspecified; Translations: [Heart disease, unspecified] Onset: 03-21-2023 Chronic Other skin disorders (1 source) Disorder of the skin and subcutaneous tissue, unspecified; Translations: [DISORDER SKIN AND SUBQ TISSUE UNS] Onset: 01-12-2023 Episodic Regional enteritis and ulcerative colitis (6 sources) Crohn's disease, unspecified, without complications; Translations: [...] HISTORY OF DIABETES MELLITUS] Onset: 01-12-2023 Episodic Residual codes; unclassified (1 source) Patient encounter status; Translations: [Procedure and treatment not carried out due to patient leaving prior to being seen by health care provider] 12-26-2023 Episodic Screening and history of mental health and substance abuse codes (1 source) Personal history of nicotine dependence; Translations: [PERSONAL HISTORY OF NICOTINE DEPEND] Onset: 01-12-2023 Episodic Syncope (5 sources) Near syncope; Translations: [Syncope and collapse] Onset: 03-21-2023 03-03-2023 Episodic Unclassified (1 source) Ventricular tachycardia, unspecified; Translations: [Ventricular tachycardia, unspecified] Onset: 03-24-2023 Unclassified (1 source) Other ventricular tachycardia; Translations: [Other ventricular tachycardia] Onset: 03-21-2023 Past or Other Problems Problem Classification Problem Date Documented Da te Episodic/Chronic Nonspecific chest pain (2 sources) Atypical chest pain; Translations: [Other chest pain] Onset: 03-03-2023 01-09-2024 Episodic Unclassified (1 source) Ventricular tachycardia, unspecified; Translations: [Ventricular tachycardia, unspecified] Onset: 04-06-2023 Unclassified (1 source) Other ventricular tachycardia; Translations: [Other ventricular tachycardia] Onset: 03-21-2023 Results Test Name Value Interpretation Reference Range Facility Activated partial thrombopla stin time (aPTT) in platelet poor plasma by coagulation aOrdered By: Naima Boyd on 01-09-2024 aPTT Coag (PPP) [Time] 29.1 s 25.1-36.5 [facility] Comment on above: A hematocrit value g reater than 55% may lead to inaccurate results in coagulation testing. Patients having hematocrit values >55% require a special collection tube for coagulation studies. Please contact the laboratory at [phone] for redraw instructions. B-Type Natriuretic Peptideon 01-09-2024 Natriuretic peptide B (Bld) [Mass/Vol] 172.0 pg/mL High 5-100 [facility] Comment on above: Result Comment: PERF ORMED BY: [facility] [address] [place] [address] PATHOLOGIST SET PAINTER RADHA BARRON M.D. Performed By: #### B SUPERINTENDENT COMPRESSOR STATIONS, HS TROP, BMP, CK, DIFF CBC ####[place] [id number] [place] [address] [facility] Basic Metabolic Panelon 12-14 Anion gap [Moles/Vol] Not performed Normal 6.0-15.0 [facility] Comment on above: Performed By: #### B SUPERINTENDENT COMPRESSOR STATIONS, HS TROP, BMP, CK, DIFF CBC ####[facility] [place] [address] [facility] Calcium [Mass/Vol] 8.7 mg/dL Normal 8.6-10.3 [facility] Comment on above: Performed By: #### B SUPERINTENDENT COMPRESSOR STATIONS, HS TROP, BMP, CK, DIFF CBC ####[address] Chloride [Moles/Vol] 109 mmol/L High 98-107 [facility] Comment on above: Performed By: #### B SUPERINTENDENT COMPRESSOR STATIONS, HS TROP, BMP, CK, DIFF CBC ####[address] CO2 [Moles/Vol] 22.4 mmol/L Normal 21.0-31.0 [facility] Comment on above: Performed By: #### B SUPERINTENDENT COMPRESSOR STATIONS, HS TROP, BMP, CK, DIFF CBC ####[address] Creatinine [Mass/Vol] 1.16 mg/dL Normal 0.70-1.30 [facility] Comment on above: Performed By: #### B SUPERINTENDENT COMPRESSOR STATIONS, HS TROP, BMP, CK, DIFF CBC ####[address] Creatinine Clr Calc Pharmacy 64.96 Normal [facility] Comment on above: Result Comment: PERF ORMED BY: [facility] [address] [place] [address] PATHOLOGIST SET PAINTER RADHA BARRON M.D. Performed By: #### B SUPERINTENDENT COMPRESSOR STATIONS, HS TROP, BMP, CK, DIFF CBC ####[address] GFR/1.73 sq M.predicted MDRD (S/P/Bld) [Vol rate/Area] mL/min/{1.73_m2} Normal [facility] Comment on above: Performed By: #### B SUPERINTENDENT COMPRESSOR STATIONS, HS TROP, BMP, CK, DIFF CBC ####[address] Glucose [Mass/Vol] 95 mg/dL Normal 70-100 [facility] Comment on above: Result Comment: [place] Glucose Reference Range is dependent on time and content of last meal. Glucose of more than 200 mg/dL in a nonstressed, ambulatory subject supports the diagnosis of Diabetes Mellitus. ADA recommended reference range Performed By: #### B SUPERINTENDENT COMPRESSOR STATIONS, HS TROP, BMP, CK, DIFF CBC ####[address] Potassium Normal 3.5-5.1 [facility] Comment on above: Result Comment: Spec imen hemolyzed, redraw requested Performed By: #### B SUPERINTENDENT COMPRESSOR STATIONS, HS TROP, BMP, CK, DIFF CBC ####[address] Sodium [Moles/Vol] 142 mmol/L Normal 136-145 [facility] Comment on above: Performed By: #### B SUPERINTENDENT COMPRESSOR STATIONS, HS TROP, BMP, CK, DIFF CBC ####[place] [id number] Urea nitrogen [Mass/Vol] 20 mg/dL Normal 7-25 [facility] Comment on above: Performed By: #### B SUPERINTENDENT COMPRESSOR STATIONS, HS TROP, BMP, CK, DIFF CBC ####[address] Basophils Auto (Bld) [#/Vol] Ordered By: Naima Boyd on 01-09-2024 Basophils (Bld) [#/Vol] N/A [facility] Basophils/100 WBC Auto (Bld) Ordered By: Naima Godwinimore on 01-09-2024 Basophils/100 WBC (Bld) N/A [facility] Basophils/100 WBC Manual cnt (Bld)Ordered By: Naima Boyd on 01-09-2024 Basophils/100 WBC (Bld) 0 % 0-[address] [facility] [address] angio chest PE protocolon 01-09-2024 CT angio chest PE protocol [facility] [address] [place] [address] CT Scan Report Signed Patient: Jeb Riddle MR#: [id number] : 1950 Acct:[id number] Age/Sex: 73 / M ADM Date: 01/09/24 Loc: ER Room: Type: [facility] ER Attending Dr: Copies to: SABA Blankenship Ordering Provider: SABA Blankenship Date of Service: 01/09/24 CT/CT angio chest PE protocol: chest pain elev dimer 190 CT angio chest PE protocol 01/09/2024 5:33 PM SIGN AND SYMPTOMS: Midsternal chest pain, elevated d-dimer CONTRAST: 90 mL of intravenous Isovue-370 TECHNIQUE: Multidetector CT axial slices of the chest were obtained with IV contrast. Multiplanar reformats and 3-D were performed and viewed on a separate workstation and reviewed to further define anatomy and possible pathology. CT was performed with one or more of the following dose reduction techniques: Automated exposure control, adjustment of the mA and/or kV according to patient size, or use of iterative reconstruction technique. COMPARISON: None. FINDINGS: Lower neck: Thyroid gland within normal limits, no supraclavicle adenopathy. Vessels: Atherosclerotic changes are noted in the aortic arch and origins of the great vessels. Mild atherosclerotic changes are noted in the coronary arteries. There is no evidence of pulmonary embolism. Mediastinum and Ambreen: Within normal limits. Heart: Normal size. No pericardial effusion. Airways: Within normal limits Lungs: Mild dependent atelectasis is noted predominantly at the left lung base. Pleura: Within normal limits. Chest Wall: Within normal limits. Upper Abdomen: There are uncomplicated colonic diverticula. Stones are noted in the right renal collecting system consistent measuring up to 9 mm in greatest dimension. There is a large parapelvic cyst in the inferior pole on the right. Bones: Within normal limits. CT/CT angio chest PE protocol IMPRESSION: No acute cardiac pulmonary pathology. There is no evidence of pulmonary embolism. Mild dependent atelectasis is noted at the left lung base. Renal stones are noted on the right, as above. There are uncomplicated colonic diverticula. Impression dictated by: Jeb Collins M.D.01/09/2024 6:17 PM Dictation Location: [place] [address] Transcribed By: [facility] 01/09/241816 Dictated By: Jeb Collins II, MD 01/09/241810 Signed By: 01/09/241816 Normal [facility] Calcium [Mass/volume] in Ser um or PlasmaOrdered By: Naima Boyd on 01-09-2024 Calcium [Mass/Vol] 8.7 mg/dL 8.6-10.3 [facility] Carbon dioxide, total [Moles /volume] in Serum or PlasmaOrdered By: Naima Boyd on 01-09-2024 CO2 [Moles/Vol] 22.4 mmol/L 21.0-31.0 [facility] Chloride [Moles/volume] in S pooja or PlasmaOrdered By: Naima Boyd on 01-09-2024 Chloride [Moles/Vol] 109 mmol/L 98-107 [facility] Coagulation Profileon 2023 aPTT Coag (Bld) [Time] 29.1 s Normal 25.1-36.5 [facility] Comment on above: Order Comment: REDRA W Result Comment: A he matocrit value greater than 55% may lead to inaccurate results in coagulation testing. Patients having hematocrit values >55% require a special collection tube for coagulation studies. Please contact the laboratory at [phone] for redraw instructions. Performed By: #### P P, DDIMER ####[facility] [place] [address] [facility] INR Coag (PPP) [Relative time] 1.0 {INR} Normal [facility] Comment on above: Order Comment: REDRA W Result Comment: INR Therapeutic Range A) Pre- [...] valves: 3 - 4.5 Performed By: #### P P, DDIMER ####[facility] [address] [place] [address] [facility] PT Coag (PPP) [Time] 11.9 s Normal 9.0-12.9 [facility] Comment on above: Order Comment: REDRA W Result Comment: A he matocrit value greater than 55% may lead to inaccurate results in coagulation testing. Patients having hematocrit values >55% require a special collection tube for coagulation studies. Please contact the laboratory at [phone] for redraw instructions. Performed By: #### P P, DDIMER ####[facility] [place] [id number] [facility] Creatine Kinaseon 01-09-2024 CK [Catalytic activity/Vol] 81 U/L Normal [facility] Comment on above: Performed By: #### B SUPERINTENDENT COMPRESSOR STATIONS, HS TROP, BMP, CK, DIFF CBC ####[id number] [place] [id number] [facility] Creatine kinase [Enzymatic a ctivity/volume] in Serum or PlasmaOrdered By: Naima Bullimore on 01-09-2024 CK [Catalytic activity/Vol] 81 U/L [facility] Creatinine [Mass/volume] in Serum or PlasmaOrdered By: Naima Bullimore on 01-09-2024 Creatinine [Mass/Vol] 1.16 mg/dL 0.70-1.30 [facility] D-Dimer High Sensitivityon 0 01-09-2024 D-Dimer High Sensitivity 1905 ng/mL High 0-243 [facility] Comment on above: Order Comment: REDRA W Result Comment: The reference range for D-dimer is <243 ng/mL D-dimer units. D-dimer results must be used in conjunction with a clinical pretest probability (PTP) assessment model for deep vein thrombosis (DVT) and pulmonary embolism (PE). Results <230 ng/mL d-dimer units can be used as a negative predictor in patients with low or moderate probability for DVT/PE. Results above the exclusion threshold of 230 ng/ml D-dimer units for DVT/PE may indicate the need for further diagnostic testing. D-Dimer can be increased in hospitalized patients due to co-morbid conditions. A hematocrit value greater than 55% may lead to inaccurate results in coagulation testing. Patients having hematocrit values >55% require a special collection tube for coagulation studies. Please contact the laboratory at [phone] for redraw instructions. PERFORMED BY: [facility] [address] [place] [id number] PATHOLOGIST SET PAINTER RADHA BARRON M.D. Performed By: #### P P, DDIMER ####[place] [id number] [facility] Diff and CBCon 01-09-2024 Basophils/100 WBC (Bld) 0 % Normal 0-2 [facility] Comment on above: Performed By: #### B SUPERINTENDENT COMPRESSOR STATIONS, HS TROP, BMP, CK, DIFF CBC ####[address] Eosinophils/100 WBC (Bld) 4 % High 1-3 [facility] Comment on above: Performed By: #### B SUPERINTENDENT COMPRESSOR STATIONS, HS TROP, BMP, CK, DIFF CBC ####[address] Erythrocyte distribution width (RBC) [Ratio] 14.9 % High 12.0-14.8 [facility] Comment on above: Performed By: #### B SUPERINTENDENT COMPRESSOR STATIONS, HS TROP, BMP, CK, DIFF CBC ####[address] Hematocrit (Bld) [Volume fraction] 41.9 % Normal 38.8-50.0 [facility] Comment on above: Performed By: #### B SUPERINTENDENT COMPRESSOR STATIONS, HS TROP, BMP, CK, DIFF CBC ####[address] Hemoglobin (Bld) [Mass/Vol] 14.1 g/dL Normal 13.0-17.0 [facility] Comment on above: Performed By: #### B SUPERINTENDENT COMPRESSOR STATIONS, HS TROP, BMP, CK, DIFF CBC ####[address] Lymphocytes/100 WBC (Bld) 27 % Normal 18-42 [facility] Comment on above: Performed By: #### B SUPERINTENDENT COMPRESSOR STATIONS, HS TROP, BMP, CK, DIFF CBC ####[address] MCH (RBC) [Entitic mass] 32.0 pg Normal 27.5-35.2 [facility] Comment on above: Performed By: #### B SUPERINTENDENT COMPRESSOR STATIONS, HS TROP, BMP, CK, DIFF CBC ####[address] MCV (RBC) [Entitic vol] 95.1 fL Normal 83.5-101 [facility] Comment on above: Performed By: #### B SUPERINTENDENT COMPRESSOR STATIONS, HS TROP, BMP, CK, DIFF CBC ####[address] Mean Corpuscular HGB Conc 33.6 g/dL Normal 32.5-35.6 [facility] Comment on above: Performed By: #### B SUPERINTENDENT COMPRESSOR STATIONS, HS TROP, BMP, CK, DIFF CBC ####[address] Monocytes/100 WBC (Bld) 25.58 % High 0.00-20.00 [facility] Comment on above: Result Comment: For adults in ED, MDW > 20.0 may be associated with a higher risk of sepsis during the first 12 hrs of hospital admission Performed By: #### B SUPERINTENDENT COMPRESSOR STATIONS, HS TROP, BMP, CK, DIFF CBC ####[address] Monocytes/100 WBC (Bld) 7 % Normal 2-11 [facility] Comment on above: Performed By: #### B SUPERINTENDENT COMPRESSOR STATIONS, HS TROP, BMP, CK, DIFF CBC ####[address] Nucleated Red Blood Cell 0 /100{WBC} Normal 0-0 [facility] Comment on above: Performed By: #### B SUPERINTENDENT COMPRESSOR STATIONS, HS TROP, BMP, CK, DIFF CBC ####[address] Platelet Estimate Normal Normal Normal [facility] Comment on above: Performed By: #### B SUPERINTENDENT COMPRESSOR STATIONS, HS TROP, BMP, CK, DIFF CBC ####[place] [id number] [facility] Platelet mean volume (Bld) [Entitic vol] 8.6 fL Normal 6.6-10.1 [facility] Comment on above: Performed By: #### B SUPERINTENDENT COMPRESSOR STATIONS, HS TROP, BMP, CK, DIFF CBC ####[address] Platelet Morphology Normal Normal Normal [facility] Comment on above: Performed By: #### B SUPERINTENDENT COMPRESSOR STATIONS, HS TROP, BMP, CK, DIFF CBC ####[address] Platelets (Bld) [#/Vol] 240 10*3/uL Normal 150-450 [facility] Comment on above: Performed By: #### B SUPERINTENDENT COMPRESSOR STATIONS, HS TROP, BMP, CK, DIFF CBC ####[address] Plt Comment SEE COMMENT BELOW Normal [facility] Comment on above: Result Comment: NO C LOTS, NO CLUMPS, SHORT DRAW LFM PERFORMED BY: [facility] [address] [place] [address] PATHOLOGIST SET PAINTER RADHA BARRON M.D. Performed By: #### B SUPERINTENDENT COMPRESSOR STATIONS, HS TROP, BMP, CK, DIFF CBC ####[address] RBC (Bld) [#/Vol] 4.41 10*6/uL Normal 3.90-5.60 [facility] Comment on above: Performed By: #### B SUPERINTENDENT COMPRESSOR STATIONS, HS TROP, BMP, CK, DIFF CBC ####[address] RBC morphology finding Nom (Bld) Normal Normal Normal [facility] Comment on above: Performed By: #### B SUPERINTENDENT COMPRESSOR STATIONS, HS TROP, BMP, CK, DIFF CBC ####[address] Segmented neutrophils/100 WBC (Bld) 62 % Normal 50-70 [facility] Comment on above: Performed By: #### B SUPERINTENDENT COMPRESSOR STATIONS, HS TROP, BMP, CK, DIFF CBC ####[address] WBC (Bld) [#/Vol] 7.6 10*3/uL Normal 4.1-10.5 [facility] Comment on above: Performed By: #### B SUPERINTENDENT COMPRESSOR STATIONS, HS TROP, BMP, CK, DIFF CBC ####[address] WBC (Bld) [#/Vol] 8.4 10*3/uL Normal 4.1-10.5 [facility] Comment on above: Performed By: #### B SUPERINTENDENT COMPRESSOR STATIONS, HS TROP, BMP, CK, DIFF CBC ####[facility] [address] [place] [id number] [facility] ECG 12 lead ECGon 01-09-2024 ECG 12 lead ECG [facility] [address] [place] [address] Electrocardiograph Report Signed Patient: Jeb Riddle MR#: [id number] : 1950 Acct:[id number] Age/Sex: 73 / M ADM Date: 01/09/24 Loc: ER Room: Type: [facility] ER Attending Dr: Ordering Provider: SABA Blankenship Date of Service: 01/09/24 ECG/ECG 12 lead ECG: Chest Pain Copies to: Test Reason : Blood Pressure : 186/093 mmHG Vent. Rate : 093 BPM Atrial Rate : 093 BPM P-R Int : 162 ms QRS Dur : 092 ms QT Int : 380 ms P-R-T Axes : 074 073 073 degrees QTc Int : 472 ms Sinus rhythm with occasional premature ventricular complexes Otherwise normal ECG When compared with ECG of 18-DEC-2023 13:06, premature ventricular complexes are now present Confirmed by ADAM PATTERSON DO ([id number]) on 01/09/2024 6:28:14 PM Referred By: Electronically Signed By:ADAM PATTERSON DO Transcribed By: MUS Signed By Adam Patterson DO [id number] Normal [facility] Eosinophils Auto (Bld) [#/Vo l]Ordered By: Naima Boyd on 01-09-2024 Eosinophils (Bld) [#/Vol] N/A [facility] Eosinophils/100 WBC Auto (Bl d)Ordered By: Naima Boyd on 01-09-2024 Eosinophils/100 WBC (Bld) N/A [facility] Eosinophils/100 WBC Manual c nt (Bld)Ordered By: Naima Boyd on 01-09-2024 Eosinophils/100 WBC (Bld) 4 % 1-3 [facility] Erythrocyte distribution wid th Auto (RBC) [Ratio]Ordered By: Naima Boyd on 01-09-2024 Erythrocyte distribution width (RBC) [Ratio] 14.9 % 12.0-14.8 [facility] Fibrin D-dimer [Presence] in Platelet poor plasma by Latex agglutinationOrdered By: Naima Boyd on 01-09-2024 Fibrin D-dimer LA Ql (PPP) 1905 ng/mL 0-243 [facility] Comment on above: The reference range for D-dimer is <243 ng/mL D-dimer units.D-dimer results must be used in conjunction with a clinicalpretest probability (PTP) assessment model for deep veinthrombosis (DVT) and pulmonary embolism (PE). Results <230ng/mL d-dimer units can be used as a negative predictor inpatients with low or moderate probability for DVT/PE.Results above the exclusion threshold of 230 ng/ml D-dimerunits for DVT/PE may indicate the need for furtherdiagnostic testing.D-Dimer can be increased in hospitalized patients due toco-morbid conditions.A hematocrit value greater than 55% may lead to inaccurate results in coagulation testing. Patients having hematocrit values >55% require a special collection tube for coagulation studies. Please contact the laboratory at [phone] for redraw instructions. Glucose [Mass/volume] in Ser um or PlasmaOrdered By: Naima Boyd on 01-09-2024 Glucose [Mass/Vol] 95 mg/dL 70-100 [facility] Comment on above: ADA recommended refe rence rangeRandom Glucose Reference Range is dependent on time and content of last meal. Glucose of more than 200 mg/dL in a nonstressed, ambulatory subject supports the diagnosis of Diabetes Mellitus. Hematocrit Auto (Bld) [Volum e fraction]Ordered By: Naima Boyd on 01-09-2024 Hematocrit (Bld) [Volume fraction] 41.9 % 38.8-50.0 [facility] Hemoglobin [Mass/volume] in BloodOrdered By: Naima Boyd on 01-09-2024 Hemoglobin (Bld) [Mass/Vol] 14.1 g/dL 13.0-17.0 [facility] INR in Platelet poor plasma by Coagulation assayOrdered By: Naima Boyd on 01-09-2024 INR Coag (PPP) [Relative time] 1.0 {INR} [facility] Comment on above: INR Therapeutic Rang e A) Pre- and Peroperative OAT started two weeks before surgery. NOT HIP SURGERY: 1.5 - 2.5 HIP SURGERY: 2 - 3B) Primary and secondary prevention of venous THROMBOSIS: 2 - 3C) Active venous thrombosis, pulmonary embolismand prevention of recurrent venous thrombosis: 2 - 3D) Prevention of arterial thromboembolismincluding patients with mechanical heart valves: 3 - 4.5 Leukocytes [#/volume] correc ava for nucleated erythrocytes in Blood by Automated counOrdered By: Naima Boyd on 01-09-2024 WBC corrected for nucl RBC Auto (Bld) [#/Vol] 7.6 10*3/uL 4.1-10.5 [facility] Lymphocytes Auto (Bld) [#/Vo l]Ordered By: Naima Boyd on 01-09-2024 Lymphocytes (Bld) [#/Vol] N/A [facility] Lymphocytes/100 WBC Auto (Bl d)Ordered By: Naima Boyd on 01-09-2024 Lymphocytes/100 WBC (Bld) N/A [facility] Lymphocytes/100 WBC Manual c nt (Bld)Ordered By: Naima Boyd on 01-09-2024 Lymphocytes/100 WBC (Bld) 27 % 18-42 [facility] MCH Auto (RBC) [Entitic mass ]Ordered By: Naima Boyd on 01-09-2024 MCH (RBC) [Entitic mass] 32.0 pg 27.5-35.2 [facility] MCHC Auto (RBC) [Mass/Vol]Or dered By: Naima Boyd on 01-09-2024 MCHC (RBC) [Mass/Vol] 33.6 g/dL 32.5-35.6 [facility] MCV Auto (RBC) [Entitic vol] Ordered By: Naima Boyd on 01-09-2024 MCV (RBC) [Entitic vol] 95.1 fL 83.5-101 [facility] Monocyte distribution width [Entitic volume] in Blood by AutomatedOrdered By: Naima Boyd on 01-09-2024 Monocyte distribution width Auto (Bld) [Entitic vol] 25.58 % 0.00-20.00 [facility] Comment on above: For adults in ED, MD W > 20.0 may be associated with a higher risk of sepsis during the first 12 hrs of hospital admission Monocytes Auto (Bld) [#/Vol] Ordered By: Naima Bullimore on 01-09-2024 Monocytes (Bld) [#/Vol] N/A [facility] Monocytes/100 WBC Auto (Bld) Ordered By: Naima Bullimore on 01-09-2024 Monocytes/100 WBC (Bld) N/A [facility] Monocytes/100 WBC Manual cnt (Bld)Ordered By: Naima Bullimore on 01-09-2024 Monocytes/100 WBC (Bld) 7 % 2-11 [facility] Natriuretic peptide B [Mass/ Vol]Ordered By: Naima Bullimore on 01-09-2024 Natriuretic peptide B (Bld) [Mass/Vol] 172.0 pg/mL 5-100 [facility] Neutrophils Auto (Bld) [#/Vo l]Ordered By: Naima Bullimore on 01-09-2024 Neutrophils (Bld) [#/Vol] N/A [facility] Neutrophils/100 WBC Auto (Bl d)Ordered By: Naima Bullimore on 01-09-2024 Neutrophils/100 WBC (Bld) N/A [facility] No Panel InformationOrdered By: Naima Godwinimore on 01-09-2024 Estimated GFR (CKD-EPI) > 60.0 mL/Min [facility] Creatinine Clearance (Chem 64.96 [facility] Platelet Comment See comment below F [facility] Comment on above: NO CLOTS, NO CLUMPS, SHORT DRAW LFM Nucleated RBC/100 WBC Manual cnt (Bld) [Ratio]Ordered By: Naima Bullimore on 01-09-2024 Nucleated RBC/100 WBC (Bld) [Ratio] 0 /100{WBC} 0-0 [facility] Nucleated erythrocytes [Pres ence] in Blood by Automated countOrdered By: Naima Bullimore on 01-09-2024 Nucleated RBC Auto Ql (Bld) N/A [facility] Platelet adequacy [Presence] in Blood by Light microscopyOrdered By: Naima Godwinimore on 01-09-2024 Platelets LM Ql (Bld) Normal Normal [facility] Platelet mean volume Auto (B ld) [Entitic vol]Ordered By: Naima Bullimore on 01-09-2024 Platelet mean volume (Bld) [Entitic vol] 8.6 fL 6.6-10.1 [facility] Platelet morphology finding [Identifier] in BloodOrdered By: Naima Bullimore on 01-09-2024 Platelet morphology finding Nom (Bld) Normal Normal [facility] Platelets Auto (Bld) [#/Vol] Ordered By: Naima Bullimore on 01-09-2024 Platelets (Bld) [#/Vol] 240 10*3/uL 150-450 [facility] Potassium [Moles/volume] in Serum or PlasmaOrdered By: Naima Boyd on 01-09-2024 Potassium [Moles/Vol] 3.9 mmol/L 3.5-5.1 [facility] Prothrombin time (PT)Ordered By: Naima Boyd on 01-09-2024 PT Coag (PPP) [Time] 11.9 s 9.0-12.9 [facility] Comment on above: A hematocrit value g reater than 55% may lead to inaccurate results in coagulation testing. Patients having hematocrit values >55% require a special collection tube for coagulation studies. Please contact the laboratory at [phone] for redraw instructions. RBC Auto (Bld) [#/Vol]Ordere d By: Naima Boyd on 01-09-2024 RBC (Bld) [#/Vol] 4.41 10*6/uL 3.90-5.60 [facility] RBC morphologyOrdered By: Sabine Boyd on 01-09-2024 RBC morphology finding Nom (Bld) Normal Normal [facility] Redraw Potassiumon Potassium [Moles/Vol] 3.9 mmol/L Normal 3.5-5.1 [facility] Comment on above: Result Comment: PERF ORMED BY: [facility] [address] [place] [address] PATHOLOGIST SET PAINTER RADHA BARRON M.D. Performed By: #### R EDRAW K ####[address] Segmented neutrophils/100 WB C Manual cnt (Bld)Ordered By: Naima Boyd on 01-09-2024 Segmented neutrophils/100 WBC (Bld) 62 % 50-70 [facility] Serum or plasma anion gap de terminationOrdered By: Naima Godwinimore on 01-09-2024 Anion gap [Moles/Vol] TNP [facility] Comment on above: Test not performed Sodium [Moles/volume] in Ser um or PlasmaOrdered By: Naima Boyd on 01-09-2024 Sodium [Moles/Vol] 142 mmol/L 136-145 [facility] Troponin I High Sensitivityo n 01-09-2024 Troponin I High Sensitivity 13.1 pg/mL Normal 0.0-20.0 [facility] Comment on above: Result Comment: PERF ORMED BY: [place] [address] PATHOLOGIST SET PAINTER RADHA BARRON M.D. Performed By: #### H S TROP #### [facility] [address] [place] [address] Troponin I High Sensitivity 12.5 pg/mL Normal 0.0-20.0 [facility] Comment on above: Result Comment: PERF ORMED BY: [place] [address] PATHOLOGIST SET PAINTER RADHA BARRON M.D. Performed By: #### B SUPERINTENDENT COMPRESSOR STATIONS, HS TROP, BMP, CK, DIFF CBC ####[facility] [id number] Troponin I.cardiac [Mass/vol ume] in Serum or Plasma by Detection limit <= 0.01 ng/Ordered By: Naima Boyd on 01-09-2024 Troponin I.cardiac DL <= 0.01 ng/mL [Mass/Vol] 13.1 pg/mL 0.0-20.0 [facility] Urea nitrogen [Mass/volume] in Serum or PlasmaOrdered By: Naima Boyd on 01-09-2024 Urea nitrogen [Mass/Vol] 20 mg/dL 03-08 [facility] WBC Auto (Bld) [#/Vol]Ordere d By: Naima Boyd on 01-09-2024 WBC (Bld) [#/Vol] 8.4 10*3/uL 4.1-10.5 [facility] XR chest 2V*on 01-09-2024 XR chest 2V* [place] [id number] XRay Report Signed Patient: Jeb Riddle MR#: [id number] : 1950 Acct:[id number] Age/Sex: 73 / M ADM Date: 01/09/24 Loc: ER Room: Type: [facility] Attending Dr: Copies to: SABA Blankenship Ordering Provider: SABA Blankenship Date of Service: 01/09/24 XR/XR chest 2V*: Chest Pain XR chest 2V* 01/09/2024 3:14 PM SIGNS AND SYMPTOMS: Midsternal chest pain PROTOCOL: Frontal and lateral radiographs of the chest COMPARISON: 03/03/2023 FINDINGS: The trachea is midline. The heart and mediastinal structures are within normal limits. The lung parenchyma is clear. The bony thorax is intact. XR/XR chest 2V* IMPRESSION: No acute cardiopulmonary pathology. Impression dictated by: Jeb Collins M.D.01/09/2024 4:11 PM Dictation Location: [place] [address] Transcribed By: [facility] 01/09/24 1611 Dictated By: Jeb Collins II, MD 01/09/24 1610 Signed By: 01/09/24 161 Normal [facility] ECG 12 lead ECGon 12-18-2023 ECG 12 lead ECG [address] [address] Electrocardiograph Report Signed Patient: Jeb Riddle MR#: [id number] : 1950 Acct:[id number] Age/Sex: 73 / M ADM Date: 12/18/23 Loc: ER Room: Type: [facility] ER Attending Dr: Ordering Provider: Marie Garrison APRN Date of Service: 12/18/2301/05/1305 ECG/ECG 12 lead ECG: Dizziness Copies to: Test Reason : Blood Pressure : 161/077 mmHG Vent. Rate : 085 BPM Atrial Rate : 085 BPM P-R Int : 154 ms QRS Dur : 094 ms QT Int : 386 ms P-R-T Axes : 071 063 074 degrees QTc Int : 459 ms Normal sinus rhythm Normal ECG When compared with ECG of 03-MAR-2023 11:32, No significant change was found Confirmed by RAMIRO CORTEZ DO ([id number]) on 12/18/2023 4:44:01 PM Referred By: Electronically Signed By:RAMIRO CORTEZ DO Transcribed By: MUS Signed By Ramiro Cortez DO 12/17 1644 Normal [facility] Office Visiton 12-09-2023 Follow-up visit [id number] Jeb Riddle 1950 [facility] Provider Department Center 12/09/2023 JESSICA JAMISON Family History Problem Relation Age of Onset Diabetes Mother Coronary artery disease Mother Heart attack Father Diabetes Father Coronary artery disease Father Family Status - Relation Status Age at Mother Father Level of Service:25056 [place] OFFICE/OUTPATIENT ESTABLISHED MOD MDM 30 MIN Reason for Visit and Comments: Follow-up [696320] - 6 months Normal [facility] Office Visiton 06-07-2023 Follow-up visit [id number] Jeb Riddle 1950 Date Provider Department Center 06/07/2023 SHIV SAAVEDRA Family History Problem Relation Age of Onset Diabetes Mother Coronary artery disease Mother Heart attack Father Diabetes Father Coronary artery disease Father Family Status - Relation Status Age at Mother Father Level of Service:44447 [place] OFFICE/OUTPATIENT NEW HIGH MDM 60-74 MINUTES Normal [facility] Office Visiton 05-27-2023 Follow-up visit [id number] Jeb Riddle 1950 Date Provider Department Center 05/27/2023 JESSICA JAMISON [facility] Family History Problem Relation Age of Onset Diabetes Mother Coronary artery disease Mother Heart attack Father Diabetes Father Coronary artery disease Father Family Status - Relation Status Age at Mother Father Level of Service:76429 [place] OFFICE/OUTPATIENT ESTABLISHED MOD MDM 30-39 MIN Reason for Visit and Comments: Follow-up [661277] Coronary Artery Disease [187] [facility] HPon 04-06-2023 HP H&P reviewed. The pa alex was examined and there are no changes to the H&P. Assessment: 1- NSVT 2- Unstable angina Plan: Proceed with coronary angiography today. [facility] NURSNOTEon 04-06-2023 NURSNOTE RN educated pt on d/ c instructions. RN encouraged pt to voice any questions or concerns. Pt verbalizes no questions or concerns at this time. Pt was wheeled off of unit with all of belongings. [facility] Orders Onlyon 03-24-2023 Orders Only [id number] Jeb Riddle 1950 [facility] Provider Department Center 03/24/2023 TAQUERIA MAYORGA MISSY Sandoval [facility] Family History Problem Relation Age of Onset Diabetes Mother Coronary artery disease Mother Heart attack Father Diabetes Father Coronary artery disease Father Family Status - Relation Status Age at Mother Father [facility] 29on 03-21-2023 29 Addended by: Analilia AVALOS on: 03/28/2023 08:21 AM Modules accepted: Orders [facility] Office Visiton 03-21-2023 Follow-up visit [id number] Jeb Riddle 1950 [facility] Center 03/21/2023 MATTIE LAY MISSY Sandoval [facility] Family History Problem Relation Age of Onset Diabetes Mother Coronary artery disease Mother Heart attack Father Diabetes Father Coronary artery disease Father Family Status - Relation Status Age at Mother Father Level of Service:79839 [place] OFFICE/OUTPATIENT ESTABLISHED MOD MDM 30-39 MIN [facility] Orders Onlyon 03-15-2023 Orders Only [id number] Jeb Riddle 1950 M Date Provider Department Center 03/15/2023 MATTIE LAY [facility]. No family history on file [facility] Activated partial thrombopla stin time (aPTT) in platelet poor plasma by coagulation aOrdered By: Ramiro Cortez on 03-03-2023 aPTT Coag (PPP) [Time] 29.7 s 25.1-36.5 [facility] B-Type Natriuretic Peptideon 03-03-2023 Natriuretic peptide B (Bld) [Mass/Vol] 52.0 pg/mL Normal 5-100 [facility] Comment on above: Result Comment: PERF ORMED BY: [facility] [address] [facility] [place] [id number] PATHOLOGIST SET PAINTER RADHA BARRON M.D. Performed By: #### C BC, CK, PT, PTT, BMP, HS TROP, BNP ####[address] Basic Metabolic Panelon 02-13 Anion gap [Moles/Vol] 10.6 mmol/L Normal 6.0-15.0 [facility] Comment on above: Performed By: #### C BC, CK, PT, PTT, BMP, HS TROP, BNP ####[address] Calcium [Mass/Vol] 8.6 mg/dL Normal 8.6-10.3 [facility] Comment on above: Performed By: #### C BC, CK, PT, PTT, BMP, HS TROP, BNP ####[address] Chloride [Moles/Vol] 108 mmol/L High 98-107 [facility] Comment on above: Performed By: #### C BC, CK, PT, PTT, BMP, HS TROP, BNP ####[address] CO2 [Moles/Vol] 24.6 mmol/L Normal 21.0-31.0 [facility] Comment on above: Performed By: #### C BC, CK, PT, PTT, BMP, HS TROP, BNP ####[address] Creatinine [Mass/Vol] 1.19 mg/dL Normal 0.70-1.30 [facility] Comment on above: Performed By: #### C BC, CK, PT, PTT, BMP, HS TROP, BNP ####[place] [id number] [address] Creatinine Clr Calc Pharmacy 55.29 Normal [facility] Comment on above: Result Comment: PERF ORMED BY: [facility] [address] [place] [address] PATHOLOGIST SET PAINTER RADHA BARRON M.D. Performed By: #### C BC, CK, PT, PTT, BMP, HS TROP, BNP ####[address] GFR/1.73 sq M.predicted MDRD (S/P/Bld) [Vol rate/Area] mL/min/{1.73_m2} Normal [facility] Comment on above: Performed By: #### C BC, CK, PT, PTT, BMP, HS TROP, BNP ####[address] Glucose [Mass/Vol] 93 mg/dL Normal 70-100 [facility] Comment on above: Result Comment: [facility] Glucose Reference Range is dependent on time and content of last meal. Glucose of more than 200 mg/dL in a nonstressed, ambulatory subject supports the diagnosis of Diabetes Mellitus. ADA recommended reference range Performed By: #### C BC, CK, PT, PTT, BMP, HS TROP, BNP ####[address] Potassium [Moles/Vol] 4.2 mmol/L Normal 3.5-5.1 [facility] Comment on above: Performed By: #### C BC, CK, PT, PTT, BMP, HS TROP, BNP ####[address] Sodium [Moles/Vol] 139 mmol/L Normal 136-145 [facility] Comment on above: Performed By: #### C BC, CK, PT, PTT, BMP, HS TROP, BNP ####[facility] [id number] Urea nitrogen [Mass/Vol] 17 mg/dL Normal 7-25 [facility] Comment on above: Performed By: #### C BC, CK, PT, PTT, BMP, HS TROP, BNP ####[facility] Basophils Auto (Bld) [#/Vol] Ordered By: Ramiro Cortez on 03-03-2023 Basophils (Bld) [#/Vol] 0.0 10*3/uL 0.0-0.2 [facility] Basophils/100 WBC Auto (Bld) Ordered By: Ramiro Cortez on 03-03-2023 Basophils/100 WBC (Bld) 0.4 % . [facility] Calcium [Mass/volume] in Ser um or PlasmaOrdered By: Ramiro Cortez on 03-03-2023 Calcium [Mass/Vol] 8.6 mg/dL 8.6-10.3 [facility] Carbon dioxide, total [Moles /volume] in Serum or PlasmaOrdered By: Ramiro Cortez on 03-03-2023 CO2 [Moles/Vol] 24.6 mmol/L 21.0-31.0 [facility] Chloride [Moles/volume] in S pooja or PlasmaOrdered By: Ramiro Cortez on 03-03-2023 Chloride [Moles/Vol] 108 mmol/L 98-107 [facility] Complete Blood Count Auto Di ffon 03-03-2023 Basophils (Bld) [#/Vol] 0.0 10*3/uL Normal 0.0-0.2 [facility] Comment on above: Result Comment: PERF ORMED BY: [facility] [address] [place] [address] PATHOLOGIST SET PAINTER RADHA BARRON M.D. Performed By: #### C BC, CK, PT, PTT, BMP, HS TROP, BNP #### [facility] [address] Basophils/100 WBC (Bld) 0.4 % Normal . [facility] Comment on above: Performed By: #### C BC, CK, PT, PTT, BMP, HS TROP, BNP #### [address] Eosinophils (Bld) [#/Vol] 0.2 10*3/uL Normal 0.0-0.45 [facility] Comment on above: Performed By: #### C BC, CK, PT, PTT, BMP, HS TROP, BNP #### [address] Eosinophils/100 WBC (Bld) 2.4 % Normal . [facility] Comment on above: Performed By: #### C BC, CK, PT, PTT, BMP, HS TROP, BNP #### [address] Erythrocyte distribution width (RBC) [Ratio] 13.0 % Normal 12.0-14.8 [facility] Comment on above: Performed By: #### C BC, CK, PT, PTT, BMP, HS TROP, BNP #### [address] Hematocrit (Bld) [Volume fraction] 38.3 % Low 38.8-50.0 [facility] Comment on above: Performed By: #### C BC, CK, PT, PTT, BMP, HS TROP, BNP #### [address] Hemoglobin (Bld) [Mass/Vol] 12.9 g/dL Low 13.0-17.0 [facility] Comment on above: Performed By: #### C BC, CK, PT, PTT, BMP, HS TROP, BNP #### [address] Lymphocytes (Bld) [#/Vol] 2.6 10*3/uL Normal 1.00-4.8 [facility] Comment on above: Performed By: #### C BC, CK, PT, PTT, BMP, HS TROP, BNP #### [address] Lymphocytes/100 WBC (Bld) 28.3 % Normal . [facility] Comment on above: Performed By: #### C BC, CK, PT, PTT, BMP, HS TROP, BNP #### [address] MCH (RBC) [Entitic mass] 30.8 pg Normal 27.5-35.2 [facility] Comment on above: Performed By: #### C BC, CK, PT, PTT, BMP, HS TROP, BNP #### [address] MCV (RBC) [Entitic vol] 91.9 fL Normal 83.5-101 [facility] Comment on above: Performed By: #### C BC, CK, PT, PTT, BMP, HS TROP, BNP #### [address] Mean Corpuscular HGB Conc 33.6 g/dL Normal 32.5-35.6 [facility] Comment on above: Performed By: #### C BC, CK, PT, PTT, BMP, HS TROP, BNP #### [address] Monocytes (Bld) [#/Vol] 0.6 10*3/uL Normal 0.0-0.8 [facility] Comment on above: Performed By: #### C BC, CK, PT, PTT, BMP, HS TROP, BNP #### [address] Monocytes/100 WBC (Bld) 24.67 % High 0.00-20.00 [facility] Comment on above: Result Comment: For adults in ED, MDW > 20.0 may be associated with a higher risk of sepsis during the first 12 hrs of hospital admission Performed By: #### C BC, CK, PT, PTT, BMP, HS TROP, BNP #### [address] Monocytes/100 WBC (Bld) 6.5 % Normal . [facility] Comment on above: Performed By: #### C BC, CK, PT, PTT, BMP, HS TROP, BNP #### [place] [address] Neutrophils (Bld) [#/Vol] 5.7 10*3/uL Normal 1.8-7.7 [facility] Comment on above: Performed By: #### C BC, CK, PT, PTT, BMP, HS TROP, BNP #### [address] Neutrophils/100 WBC (Bld) 62.4 % Normal . [facility] Comment on above: Performed By: #### C BC, CK, PT, PTT, BMP, HS TROP, BNP #### [address] NRBC% 0.1 /100{WBC} Normal 0-0.5 [facility] Comment on above: Performed By: #### C BC, CK, PT, PTT, BMP, HS TROP, BNP #### [address] Platelet mean volume (Bld) [Entitic vol] 8.2 fL Normal 6.6-10.1 [facility] Comment on above: Performed By: #### C BC, CK, PT, PTT, BMP, HS TROP, BNP #### [address] Platelets (Bld) [#/Vol] 234 10*3/uL Normal 150-450 [facility] Comment on above: Performed By: #### C BC, CK, PT, PTT, BMP, HS TROP, BNP #### [address] RBC (Bld) [#/Vol] 4.17 10*6/uL Normal 3.90-5.60 [facility] Comment on above: Performed By: #### C BC, CK, PT, PTT, BMP, HS TROP, BNP #### [address] WBC (Bld) [#/Vol] 9.2 10*3/uL Normal 4.1-10.5 [facility] Comment on above: Performed By: #### C BC, CK, PT, PTT, BMP, HS TROP, BNP #### [facility] [address] [place] [id number] [place] Creatine Kinaseon 03-03-2023 CK [Catalytic activity/Vol] 125 U/L Normal [facility] Comment on above: Performed By: #### C BC, CK, PT, PTT, BMP, HS TROP, BNP ####[facility] [id number] [place] [id number] [facility] Creatine kinase [Enzymatic a ctivity/volume] in Serum or PlasmaOrdered By: Ramiro Cortez on 03-03-2023 CK [Catalytic activity/Vol] 125 U/L [facility] Creatinine [Mass/volume] in Serum or PlasmaOrdered By: Ramiro Cortez on 03-03-2023 Creatinine [Mass/Vol] 1.19 mg/dL 0.70-1.30 [facility] ECG 12 lead ECGon 03-03-2023 ECG 12 lead ECG [facility] [address] [place] [address] [place] [address] Electrocardiograph Report Signed Patient: Jeb Riddle MR#: [id number] : 1950 Acct:[id number] Age/Sex: 72 / M ADM Date: 03/03/23 Loc: ER Room: Type: [facility] ER Attending Dr: Ordering Provider: Ramiro Cortez [...] ECGs available Confirmed by RAMIRO CORTEZ DO ([id number]) on 03/03/2023 8:14:27 PM Referred By: Electronically Signed By:RAMIRO CORTEZ DO Transcribed By: MUS Signed By Ramiro Cortez DO 03/03 Normal [facility] Eosinophils Auto (Bld) [#/Vo l]Ordered By: Ramiro Cortez on 03-03-2023 Eosinophils (Bld) [#/Vol] 0.2 10*3/uL 0.0-0.45 [facility] Eosinophils/100 WBC Auto (Bl d)Ordered By: Ramiro Cortez on 03-03-2023 Eosinophils/100 WBC (Bld) 2.4 % . [facility] Erythrocyte distribution wid th Auto (RBC) [Ratio]Ordered By: Ramiro Cortez on 03-03-2023 Erythrocyte distribution width (RBC) [Ratio] 13.0 % 12.0-14.8 [facility] Glucose [Mass/volume] in Ser um or PlasmaOrdered By: Ramiro Cortez on 03-03-2023 Glucose [Mass/Vol] 93 mg/dL 70-100 [facility] Comment on above: ADA recommended refe rence rangeRandom Glucose Reference Range is dependent on time and content of last meal. Glucose of more than 200 mg/dL in a nonstressed, ambulatory subject supports the diagnosis of Diabetes Mellitus. Hematocrit Auto (Bld) [Volum e fraction]Ordered By: Ramiro Cortez on 03-03-2023 Hematocrit (Bld) [Volume fraction] 38.3 % 38.8-50.0 [facility] Hemoglobin [Mass/volume] in BloodOrdered By: Ramiro Cortez on 03-03-2023 Hemoglobin (Bld) [Mass/Vol] 12.9 g/dL 13.0-17.0 [facility] Laboratory - CoagulationOrde red By: Ramiro Cortez on 03-03-2023 PT Coag (PPP) [Time] 12.3 s 9.0-12.9 [facility] Leukocytes [#/volume] correc ava for nucleated erythrocytes in Blood by Automated counOrdered By: Ramiro Cortez on 03-03-2023 WBC corrected for nucl RBC Auto (Bld) [#/Vol] 9.2 10*3/uL 4.1-10.5 [facility] Lymphocytes Auto (Bld) [#/Vo l]Ordered By: Ramiro Cortez on 03-03-2023 Lymphocytes (Bld) [#/Vol] 2.6 10*3/uL 1.00-4.8 [facility] Lymphocytes/100 WBC Auto (Bl d)Ordered By: Ramiro Cortez on 03-03-2023 Lymphocytes/100 WBC (Bld) 28.3 % . [facility] MCH Auto (RBC) [Entitic mass ]Ordered By: Ramiro Cortez on 03-03-2023 MCH (RBC) [Entitic mass] 30.8 pg 27.5-35.2 [facility] MCHC Auto (RBC) [Mass/Vol]Or dered By: Ramiro Cortez on 03-03-2023 MCHC (RBC) [Mass/Vol] 33.6 g/dL 32.5-35.6 [facility] MCV Auto (RBC) [Entitic vol] Ordered By: Ramiro Cortez on 03-03-2023 MCV (RBC) [Entitic vol] 91.9 fL 83.5-101 [facility] Monocyte distribution width [Entitic volume] in Blood by AutomatedOrdered By: Ramiro Cortez on 03-03-2023 Monocyte distribution width Auto (Bld) [Entitic vol] 24.67 % 0.00-20.00 [facility] Comment on above: For adults in ED, MD W > 20.0 may be associated with a higher risk of sepsis during the first 12 hrs of hospital admission Monocytes Auto (Bld) [#/Vol] Ordered By: Ramiro Cortez on 03-03-2023 Monocytes (Bld) [#/Vol] 0.6 10*3/uL 0.0-0.8 [facility] Monocytes/100 WBC Auto (Bld) Ordered By: Ramiro Cortez on 03-03-2023 Monocytes/100 WBC (Bld) 6.5 % . [facility] Natriuretic peptide B [Mass/ Vol]Ordered By: Ramiro Cortez on 03-03-2023 Natriuretic peptide B (Bld) [Mass/Vol] 52.0 pg/mL 5-100 [facility] Neutrophils Auto (Bld) [#/Vo l]Ordered By: Ramiro Cortez on 03-03-2023 Neutrophils (Bld) [#/Vol] 5.7 10*3/uL 1.8-7.7 [facility] Neutrophils/100 WBC Auto (Bl d)Ordered By: Ramiro Cortez on 03-03-2023 Neutrophils/100 WBC (Bld) 62.4 % . [facility] No Panel InformationOrdered By: Ramiro Cortez on 03-03-2023 Estimated GFR (CKD-EPI) > 60.0 mL/Min [facility] Creatinine Clearance (Chem 55.29 [facility] Nucleated erythrocytes [Pres ence] in Blood by Automated countOrdered By: Ramiro Cortez on 03-03-2023 Nucleated RBC Auto Ql (Bld) 0.1 /100{WBC} 0-0.5 [facility] Partial Thromboplastin Timeo n 03-03-2023 aPTT Coag (Bld) [Time] 29.7 s Normal 25.1-36.5 Th e [facility] Comment on above: Result Comment: PERF ORMED BY: [facility] [address] [place] [address] PATHOLOGIST SET PAINTER RADHA BARRON M.D. Performed By: #### C BC, CK, PT, PTT, BMP, HS TROP, BNP #### [facility] [address] Platelet mean volume Auto (B ld) [Entitic vol]Ordered By: Ramiro Cortez on 03-03-2023 Platelet mean volume (Bld) [Entitic vol] 8.2 fL 6.6-10.1 [facility] Platelet poor plasma interna tional normalized ratio (INR) by coagulation assay (relatOrdered By: Ramiro Cortez on 03-03-2023 INR Coag (PPP) [Relative time] 1.1 {INR} [facility] Comment on above: INR Therapeutic Rang e [...] 03-03-2023 Platelets (Bld) [#/Vol] 234 10*3/uL 150-450 [facility] Potassium [Moles/volume] in Serum or PlasmaOrdered By: Ramiro Cortez on 03-03-2023 Potassium [Moles/Vol] 4.2 mmol/L 3.5-5.1 [facility] Prothrombin Time INRon 03-03 INR Coag (PPP) [Relative time] 1.1 {INR} Normal [facility] Comment on above: Result Comment: INR Therapeutic [...] valves: 3 - 4.5 Performed By: #### C BC, CK, PT, PTT, BMP, HS TROP, BNP #### [address] PT Coag (PPP) [Time] 12.3 s Normal 9.0-12.9 [facility] Comment on above: Performed By: #### C BC, CK, PT, PTT, BMP, HS TROP, BNP #### [address] RBC Auto (Bld) [#/Vol]Ordere d By: Ramiro Cortez on 03-03-2023 RBC (Bld) [#/Vol] 4.17 10*6/uL 3.90-5.60 [facility] Serum or plasma anion gap de terminationOrdered By: Ramiro Cortez on 03-03-2023 Anion gap [Moles/Vol] 10.6 mmol/L 6.0-15.0 [facility] Sodium [Moles/volume] in Ser um or PlasmaOrdered By: Ramiro Cortez on 03-03-2023 Sodium [Moles/Vol] 139 mmol/L 136-145 [facility] Troponin I High Sensitivityo n 03-03-2023 Troponin I High Sensitivity 7.6 pg/mL Normal 0.0-20.0 [facility] Comment on above: Result Comment: PERF ORMED BY: [place] [address] PATHOLOGIST SET PAINTER RADHA BARRON M.D. Performed By: #### C BC, CK, PT, PTT, BMP, HS TROP, BNP ####[facility] [address] Troponin I.cardiac [Mass/vol ume] in Serum or Plasma by Detection limit <= 0.01 ng/Ordered By: Ramiro Cortez on 03-03-2023 Troponin I.cardiac DL <= 0.01 ng/mL [Mass/Vol] 7.6 pg/mL 0.0-20.0 [facility] Urea nitrogen [Mass/volume] in Serum or PlasmaOrdered By: Ramiro Cortez on 03-03-2023 Urea nitrogen [Mass/Vol] 17 mg/dL 7-25 [facility] WBC Auto (Bld) [#/Vol]Ordere d By: Ramiro Cortez on 03-03-2023 WBC (Bld) [#/Vol] 9.2 10*3/uL 4.1-10.5 [facility] XR chest 2V*on 03-03-2023 XR chest 2V* [facility] [address] [address] [place] [address] XRay Report Signed Patient: Jeb Riddle MR#: [id number] : 1950 Acct:[id number] Age/Sex: 72 / M ADM Date: 03/03/23 Loc: ER Room: Type: [facility] ER Attending Dr: Copies to: Ramiro [...] Ivonne Zavala M.D.03/03/2023 12:46 PM Dictation Location: [place] [address] Transcribed By: [facility] 03/03/23 1246 Dictated By: Ivonne Zavala MD 03/03/23 1245 Signed By: 03/03/23 1246 Normal [facility] CBC AUTO DIFFon 01-11-2023 BASO # 0.0 103/ul Normal 0.0-0.1 [facility] Comment on above: Performed By: #### C BC #### [facility] [address] [place] [address] [address] Andrea Garcia Basophils/100 WBC (Bld) 0.0 % Critically low 0.2-2.0 [facility] Comment on above: Performed By: #### C BC #### [facility] [address] [place] [address] [address] Andrea Garcia EO # 0.0 103/ul Normal 0.0-0.7 [facility] Comment on above: Performed By: #### C BC #### [facility] [address] [address] [address] Andrea Garcia Eosinophils/100 WBC (Bld) 0.0 % Critically low 0.9-7.0 [facility] Comment on above: Performed By: #### C BC #### [facility] [address] [address] [address] Andrea Garcia Erythrocyte distribution width (RBC) [Ratio] 12.8 % Normal 11.0-15.0 [facility] Comment on above: Performed By: #### C BC #### [facility] [address] [address] [address] Andrea Garcia Hematocrit (Bld) [Volume fraction] 36.2 % Critically low 42.0-54.0 [facility] Comment on above: Performed By: #### C BC #### [facility] [address] [address] [address] Andrea Garcia Hemoglobin (Bld) [Mass/Vol] 12.8 g/dL Critically low 14.0-18.0 [facility] Comment on above: Performed By: #### C BC #### [facility] [address] [place] [address] [address] Andrea Garcia IG # 0.03 10e3/ul Normal 0.00-0.03 [facility] Comment on above: Performed By: #### C BC #### [facility] [address] [place] [address] Dr. Andrea Garcia IG % 0.4 % Normal 0.0-0.5 [facility] Comment on above: Performed By: #### C BC #### [facility] [address] [place] [address] Dr. Andrea Garcia LYMPH # 1.1 103/ul Critically low 1.2-3.8 [facility] Comment on above: Performed By: #### C BC #### [facility] [address] [place] [address] Dr. Andrea Garcia Lymphocytes/100 WBC (Bld) 15.3 % Critically low 20.5-60.0 [facility] Comment on above: Performed By: #### C BC #### [facility] [address] [place] [address] Dr. Andrea Garcia MANUAL DIFF REQ NO Normal [facility] Comment on above: Performed By: #### C BC #### [facility] [address] [place] [address] Dr. Andrea Garcia MCH (RBC) [Entitic mass] 31.3 pg Normal 25.9-34.0 [facility] Comment on above: Performed By: #### C BC #### [facility] [address] [place] [address] Dr. Andrea Garcia MCHC (RBC) [Mass/Vol] 35.4 g/dL Critically high 29.9-35.2 [facility] Comment on above: Performed By: #### C BC #### [facility] [address] [place] [address] Dr. Andrea Garcia MCV (RBC) [Entitic vol] 88.5 fL Normal 80.0-94.0 [facility] Comment on above: Performed By: #### C BC #### [facility] [address] [place] [address] Dr. Andrea Garcia MONO # 0.1 103/ul Critically low 0.3-0.8 [facility] Comment on above: Performed By: #### C BC #### [facility] [address] [place] [address] Dr. Andrea Garcia Monocytes/100 WBC (Bld) 0.7 % Critically low 1.7-12.0 [facility] Comment on above: Performed By: #### C BC #### [facility] [address] [place] [address] Dr. Andrea Garcia NEUT # 6.0 103/ul Normal 1.4-6.5 [facility] Comment on above: Performed By: #### C BC #### [facility] [address] [place] [address] Dr. Andrea Garcia Neutrophils/100 WBC (Bld) 83.6 % Critically high 43.0-75.0 [facility] Comment on above: Performed By: #### C BC #### [facility] [address] [place] [address] Dr. Andrea Garcia Platelet mean volume (Bld) [Entitic vol] 10.1 fL Normal 9.5-13.5 [facility] Comment on above: Performed By: #### C BC #### [facility] [address] [place] [address] Dr. Andrea Garcia PLT 216 103/ul Normal 150-450 [facility] Comment on above: Performed By: #### C BC #### [facility] [address] [place] [address] Dr. Andrea Garcia RBC 4.09 106/ul Critically low 4.70-6.10 [facility] Comment on above: Performed By: #### C BC #### [facility] [address] [place] [address] Dr. Andrea Garcia WBC 7.2 103/ul Normal 4.0-11.0 [facility] Comment on above: Performed By: #### C BC #### [facility] [address] [place] [address] Dr. Andrea Garcia PROF 14(COMP METB)on 023 Albumin [Mass/Vol] 2.8 g/dL Critically low 3.4-5.0 [facility] Comment on above: Performed By: #### C MP #### [facility] [address] [place] [address] Dr. Andrea Garcia Albumin/Globulin [Mass ratio] 0.8 {ratio} Normal [facility] Comment on above: Performed By: #### C MP #### [facility] [address] [place] [address] [address] Andrea Garcia ALP [Catalytic activity/Vol] 64 U/L Normal 46-116 [facility] Comment on above: Performed By: #### C MP #### [facility] [address] [place] [address] Dr. Andrea Garcia ALT [Catalytic activity/Vol] 27 U/L Normal 16-63 [facility] Comment on above: Performed By: #### C MP #### [facility] [address] [place] [address] Dr. Andrea Garcia Anion gap [Moles/Vol] 12.9 mmol/L Normal [facility] Comment on above: Performed By: #### C MP #### [facility] [address] [place] [address] Dr. Andrea Garcia AST [Catalytic activity/Vol] 16 U/L Normal 15-37 [facility] Comment on above: Performed By: #### C MP #### [facility] [address] [place] [address] Dr. Andrea Garcia Bilirubin [Mass/Vol] 0.4 mg/dL Normal 0.2-1.0 [facility] Comment on above: Performed By: #### C MP #### [facility] [address] [place] [address] Dr. Andrea Garcia Calcium [Mass/Vol] 8.2 mg/dL Critically low 8.5-10.1 [facility] Comment on above: Performed By: #### C MP #### [facility] [address] [place] [address] Dr. Andrea Garcia Chloride [Moles/Vol] 107 mmol/L Normal 98-107 [facility] Comment on above: Performed By: #### C MP #### [facility] [address] [place] [address] Dr. Andrea Garcia CO2 [Moles/Vol] 24.2 mmol/L Normal 21.0-32.0 [facility] Comment on above: Performed By: #### C MP #### [facility] [address] [place] [address] Dr. Andrea Garcia Creatinine [Mass/Vol] 1.07 mg/dL Normal 0.70-1.30 [facility] Comment on above: Performed By: #### C MP #### [facility] [address] [address] [address] Andrea Garcia EGFR-AF [place]ONG [place]ONGER >60 Normal >=60 [facility] Comment on above: Performed By: #### C MP #### [facility] [address] [place] [address] Dr. Andrea Garcia EGFR-NON AF [place]ER >60 Normal >=60 [facility] Comment on above: Performed By: #### C MP #### [facility] [address] [place] [address] Dr. Andrea Garcia Globulin (S) [Mass/Vol] 3.5 g/dL Normal [facility] Comment on above: Performed By: #### C MP #### [facility] [address] [place] [address] Dr. Andrea Garcia Glucose [Mass/Vol] 164 mg/dL Critically high 74-106 [facility] Comment on above: Performed By: #### C MP #### [facility] [address] [place] [address] Dr. Andrea Garcia Potassium [Moles/Vol] 4.1 mmol/L Normal 3.5-5.1 [facility] Comment on above: Performed By: #### C MP #### [facility] [address] [place] [address] Dr. Andrea Garcia Protein [Mass/Vol] 6.3 g/dL Critically low 6.4-8.2 [facility] Comment on above: Performed By: #### C MP #### [facility] [address] [place] [address] Dr. Andrea Garcia Sodium [Moles/Vol] 140 mmol/L Normal 136-145 [facility] Comment on above: Performed By: #### C MP #### [facility] [address] [address] [address] Andrea Garcia Urea nitrogen [Mass/Vol] 16.0 mg/dL Normal 7.0-18.0 [facility] Comment on above: Performed By: #### C MP #### [facility] [address] [address] [address] Andrea Garcia Urea nitrogen/Creatinine [Mass ratio] 15.0 mg/mg Normal [facility] Comment on above: Performed By: #### C MP #### [facility] [address] [address] [address] Andrea Garcia XR KUB 1 VIEWon [...] ROBERT DAVENPORT Date: 2023-01-11 06:56 Normal [facility] AMYLASEon 01-10-2023 Amylase [Catalytic activity/Vol] 56 U/L Normal 25-115 [facility] Comment on above: Performed By: #### C MADM, CMP, DAMIEN, LIPA ####[facility] [address] [place] [address]Dr. Andrea Garcia CARDIAC JEB 3-6on 3 CK [Catalytic activity/Vol] 92 U/L Normal 39-308 [facility] Comment on above: Performed By: #### C MREP #### [facility] [address] [address] [address] Andrea Garcia CK.MB [Mass/Vol] 1.66 ng/mL Normal <=3.60 [facility] Comment on above: Performed By: #### C MREP #### [facility] [address] [address] [address] Andrea Garcia HSTROP 12.8 pg/mL Normal 4.0-76.1 [facility] Comment on above: Result Comment: CUT- OFF POINTS HAVE BEEN ESTABLISHED BASED ON THE FOURTH UNIVERSAL DEFINITIONS OF MYOCARDIAL INFARCTION. THE UPPER REFERENCE LIMIT (URL) OF TROPONIN, DEFINED THE 99TH PERCENTILE OF cTnI DISTRIBUTION IN A REFERENCE POPULATION, HAS BEEN CONFIRMED THE DECISION THRESHOLD FOR HI DIAGNOSIS. Performed By: #### C MREP #### [facility] [address] [address] [address] Andrea Garcia CK [Catalytic activity/Vol] 72 U/L Normal 39-308 [facility] Comment on above: Performed By: #### C MREP #### [facility] [address] [address] [address] Andrea Garcia CK.MB [Mass/Vol] 1.89 ng/mL Normal <=3.60 [facility] Comment on above: Performed By: #### C MREP #### [facility] [address] [address] [address] Andrea Garcia HSTROP 13.5 pg/mL Normal 4.0-76.1 [facility] Comment on above: Result Comment: CUT- OFF POINTS HAVE BEEN ESTABLISHED BASED ON THE FOURTH UNIVERSAL DEFINITIONS OF MYOCARDIAL INFARCTION. THE UPPER REFERENCE LIMIT (URL) OF TROPONIN, DEFINED THE 99TH PERCENTILE OF cTnI DISTRIBUTION IN A REFERENCE POPULATION, HAS BEEN CONFIRMED THE DECISION THRESHOLD FOR HI DIAGNOSIS. Performed By: #### C MREP #### [facility] [address] [address] [address] Andrea Garcia CARDIAC JEB ADMITon 023 CK [Catalytic activity/Vol] 85 U/L Normal 39-308 [facility] Comment on above: Performed By: #### C MADM, CMP, DAMIEN, LIPA ####[facility] [address] [place] [address]Dr. Andrea Garcia CK.MB [Mass/Vol] 1.80 ng/mL Normal <=3.60 [facility] Comment on above: Performed By: #### C MADM, CMP, DAMIEN, LIPA ####[facility] [address] [place] [address]Dr. Andrea Garcia HSTROP 15.7 pg/mL Normal 4.0-76.1 [facility] Comment on above: Result Comment: CUT- OFF POINTS HAVE BEEN ESTABLISHED BASED ON THE FOURTH UNIVERSAL DEFINITIONS OF MYOCARDIAL INFARCTION. THE UPPER REFERENCE LIMIT (URL) OF TROPONIN, DEFINED THE 99TH PERCENTILE OF cTnI DISTRIBUTION IN A REFERENCE POPULATION, HAS BEEN CONFIRMED THE DECISION THRESHOLD FOR HI DIAGNOSIS. Performed By: #### C MADM, CMP, DAMIEN, LIPA ####[facility] [address] [place] [address]Dr. Andrea Garcia MIQUEL 61 ng/mL Normal 16-96 [facility] Comment on above: Performed By: #### C MADM, CMP, DAMIEN, LIPA ####[facility] [address] [place] [address]Dr. Andrea Garcia CBC AUTO DIFFon 01-10-2023 BASO # 0.0 103/ul Normal 0.0-0.1 [facility] Comment on above: Performed By: #### C BC ####[facility] [address] [place], [place] [address]Dr. Andrea Garcia Basophils/100 WBC (Bld) 0.5 % Normal 0.2-2.0 [facility] Comment on above: Performed By: #### C BC ####[facility] [address] [place], [place] [address]Dr. Andrea Garcia EO # 0.4 103/ul Normal 0.0-0.7 [facility] Comment on above: Performed By: #### C BC ####[facility] [address] [place], [place] [address]Dr. Andrea Garcia Eosinophils/100 WBC (Bld) 5.9 % Normal 0.9-7.0 [facility] Comment on above: Performed By: #### C BC ####[facility] [address] [place], [place] [address]Dr. Andrea Garcia Erythrocyte distribution width (RBC) [Ratio] 13.0 % Normal 11.0-15.0 [facility] Comment on above: Performed By: #### C BC ####[facility] [address] [place] [address]Dr. Andrea Garcia Hematocrit (Bld) [Volume fraction] 40.0 % Critically low 42.0-54.0 [facility] Comment on above: Performed By: #### C BC ####[facility] [address] [place] [address]Dr. Andrea Jose Hemoglobin (Bld) [Mass/Vol] 13.4 g/dL Critically low 14.0-18.0 [facility] Comment on above: Performed By: #### C BC ####[facility] [address] [place] [address]Dr. Andrea Garcia IG # 0.01 10e3/ul Normal 0.00-0.03 [facility] Comment on above: Performed By: #### C BC ####[facility] [address] [place], [place] [address]Dr. Andrea Garcia IG % 0.2 % Normal 0.0-0.5 [facility] Comment on above: Performed By: #### C BC ####[facility] [address] [place], [place] [address]Dr. Andrea Garcia LYMPH # 2.2 103/ul Normal 1.2-3.8 [facility] Comment on above: Performed By: #### C BC ####[facility] [address] [place], [place] [address]Dr. Andrea Garcia Lymphocytes/100 WBC (Bld) 33.2 % Normal 20.5-60.0 [facility] Comment on above: Performed By: #### C BC ####[facility] [address] [place], [place] [address]Dr. Andrea Garcia MANUAL DIFF REQ NO Normal [facility] Comment on above: Performed By: #### C BC ####[facility] [address] [place], [place] [address]Dr. Andrea Garcia MCH (RBC) [Entitic mass] 30.5 pg Normal 25.9-34.0 [facility] Comment on above: Performed By: #### C BC ####[facility] [address] [place] [address] Andrea Garcia MCHC (RBC) [Mass/Vol] 33.5 g/dL Normal 29.9-35.2 [facility] Comment on above: Performed By: #### C BC ####[facility] [address] [place] [id number] Andrea Garcia MCV (RBC) [Entitic vol] 90.9 fL Normal 80.0-94.0 [facility] Comment on above: Performed By: #### C BC ####[facility] [address] [place] [id number]. Andrea Jose MONO # 0.4 103/ul Normal 0.3-0.8 [facility] Comment on above: Performed By: #### C BC ####[facility] [address] [address]Dr. Kaylendahlia Garcia Monocytes/100 WBC (Bld) 6.0 % Normal 1.7-12.0 [facility] Comment on above: Performed By: #### C BC ####[facility] [address] [place], [place] [address]Dr. Andrea Garcia NEUT # 3.5 103/ul Normal 1.4-6.5 [facility] Comment on above: Performed By: #### C BC ####[facility] [address] [place], [place] [id number]. Andrea Jsoe Neutrophils/100 WBC (Bld) 54.2 % Normal 43.0-75.0 [facility] Comment on above: Performed By: #### C BC ####[facility] [address] [place] [id number]. Andrea Garcia Platelet mean volume (Bld) [Entitic vol] 9.7 fL Normal 9.5-13.5 [facility] Comment on above: Performed By: #### C BC ####[facility] [address] [place] [id number]. Andrea Jose PLT 225 103/ul Normal 150-450 [facility] Comment on above: Performed By: #### C BC ####[facility] [address] [place], [place] [address]Xd. Andrea Garcia RBC 4.40 106/ul Critically low 4.70-6.10 [facility] Comment on above: Performed By: #### C BC ####[facility] [address] [place], [place] [address]WkWilder Garcia WBC 6.5 103/ul Normal 4.0-11.0 [facility] Comment on above: Performed By: #### C BC ####[facility] [address] [place], [place] [address] ABD/PELV W CONon 01-11-20 23 [...] ADITYA OATES Date: 2023-01-10 07:41 Normal [facility] CULTURE BLOODon 01-10-2023 Microscopic examination of blood, culture Culture Observations: NO GROWTH AT 36-48 HOURS. FINAL TO FOLLOW. Normal [facility] Comment on above: Performed By: #### B LDCX2 ####[facility] [address] [place] [address]Dr. Andrea Garcia Microscopic examination of blood, culture Culture Observations: NO GROWTH AT 36-48 HOURS. FINAL TO FOLLOW. Normal [facility] Comment on above: Performed By: #### B LDCX1 ####[facility] [address] [address] [address]Dr. Andrea Garcia ER URINE PROFILEon 3 Bilirubin Ql (U) Negative Normal NEGATIVE [facility] Comment on above: Performed By: #### U MICRO, ERUR #### [facility] Laboratory [address] [address] [address] Andrea Garcia Clarity (U) CLEAR Normal CLEAR [facility] Comment on above: Performed By: #### U MICRO, ERUR #### [facility] [address] [place] [address] Dr. Andrea Garcia Color (U) LT. YELLOW Normal YELLOW [facility] Comment on above: Performed By: #### U MICRO, ERUR #### [facility] [address] [place] [address] Dr. Andrea Garcia ERUAHD A micrscopic examina tion will be performed if indicated. Normal [facility] Comment on above: Performed By: #### U MICRO, ERUR #### [facility] [address] [place] [address] Dr. Andrea Garcia Glucose Ql (U) Negative Normal NEGATIVE [facility] Comment on above: Performed By: #### U MICRO, ERUR #### [facility] [address] [address] [address] Andrea Garcia Hemoglobin Ql (U) TRACE-INTACT Abnormal NEGATIVE [facility] Comment on above: Performed By: #### U MICRO, ERUR #### [facility] [address] [place] [address] Dr. Andrea Garcia Ketones Ql (U) Negative Normal NEGATIVE [facility] Comment on above: Performed By: #### U MICRO, ERUR #### [facility] [address] [place] [address] Dr. Andrea Garcia LEUKOCYTES Negative Normal NEGATIVE [facility] Comment on above: Performed By: #### U MICRO, ERUR #### [facility] [address] [address] [address] Andrea Garcia Nitrite Ql (U) Negative Normal NEGATIVE [facility] Comment on above: Performed By: #### U MICRO, ERUR #### [facility] [address] [address] [address] Andrea Garcia pH (U) 5.5 [pH] Normal 5-9 [facility] Comment on above: Performed By: #### U MICRO, ERUR #### [facility] [address] [place] [address] Dr. Andrea Garcia SPEC GRAVITY 1.015 Normal 1.005-<=1. 025 [facility] Comment on above: Performed By: #### U MICRO, ERUR #### [facility] [address] [place] [address] Dr. Andrea Garcia UA PROTEIN Negative Normal NEGATIVE/ TRACE [facility] Comment on above: Performed By: #### U MICRO, ERUR #### [facility] [address] [place] [address] Dr. Andrea Garcia UR MICRO IND INDICATED Normal [facility] Comment on above: Performed By: #### U MICRO, ERUR #### [facility] [address] [place] [address] Dr. Andrea Garcia Urobilinogen Qn (U) 0.2 {Temo'U}/dL Normal 0.2 - 1. 0 [facility] Comment on above: Performed By: #### U MICRO, ERUR #### [facility] [address] [place] [address] Dr. Andrea Garcia LACTATE/LACTIC ACIDon 2022 Lactate [Moles/Vol] 0.8 mmol/L Normal 0.4-2.0 [facility] Comment on above: Performed By: #### L ACT #### [facility] [address] [place] [address] Dr. Andrea Garcia Lactate [Moles/Vol] 0.9 mmol/L Normal 0.4-2.0 [facility] Comment on above: Performed By: #### L ACT #### [facility] [address] [address] [address] Andrea Garcia LIPASEon 01-10-2023 Lipase [Catalytic activity/Vol] 71.0 U/L Critically low 73.0-393.0 [facility] Comment on above: Performed By: #### C MADM, CMP, DAMIEN, LIPA ####[facility] [address] [place] [address]DrWilder Garcia PROF 14(COMP METB)on 023 Albumin [Mass/Vol] 3.2 g/dL Critically low 3.4-5.0 [facility] Comment on above: Performed By: #### C MADM, CMP, DAMIEN, LIPA ####[facility] [address] [place] [address]DrWilder Garcia Albumin/Globulin [Mass ratio] 0.9 {ratio} Normal [facility] Comment on above: Performed By: #### C MADM, CMP, DAMIEN, LIPA ####[facility] [address] [place] [address]DrWilder Garcia ALP [Catalytic activity/Vol] 68 U/L Normal 46-116 [facility] Comment on above: Performed By: #### C MADM, CMP, DAMIEN, LIPA ####[facility] [address] [place] [address]DrWilder Garcia ALT [Catalytic activity/Vol] 30 U/L Normal 16-63 [facility] Comment on above: Performed By: #### C MADM, CMP, DAMIEN, LIPA ####[facility] [address] [place] [address]DrWilder Garcia Anion gap [Moles/Vol] 14.2 mmol/L Normal [facility] Comment on above: Performed By: #### C MADM, CMP, DAMIEN, LIPA ####[facility] [address] [place] [address]DrWilder Garcia AST [Catalytic activity/Vol] 18 U/L Normal 15-37 [facility] Comment on above: Performed By: #### C MADM, CMP, DAMIEN, LIPA ####[facility] [address] [place] [address]Dr. Andrea Garcia Bilirubin [Mass/Vol] 0.5 mg/dL Normal 0.2-1.0 [facility] Comment on above: Performed By: #### C MADM, CMP, DAMIEN, LIPA ####[facility] [address] [place] [address]Dr. Andrea Garcia Calcium [Mass/Vol] 8.5 mg/dL Normal 8.5-10.1 [facility] Comment on above: Performed By: #### C MADM, CMP, DAMIEN, LIPA ####[facility] [address] [place] [address]Dr. Andrea Garcia Chloride [Moles/Vol] 108 mmol/L Critically high 98-107 [facility] Comment on above: Performed By: #### C MADM, CMP, DAMIEN, LIPA ####[facility] [address] [place] [address]Dr. Yidahlia Garcia CO2 [Moles/Vol] 22.1 mmol/L Normal 21.0-32.0 [facility] Comment on above: Performed By: #### C MADM, CMP, DAMIEN, LIPA ####[facility] [address] [place] [address]Dr. Andrea Garcia Creatinine [Mass/Vol] 1.06 mg/dL Normal 0.70-1.30 [facility] Comment on above: Performed By: #### C MADM, CMP, DAMIEN, LIPA ####[facility] [address] [place] [address]Dr. Yilan Garcia EGFR-AF [place]ER >60 Normal >=60 [facility] Comment on above: Performed By: #### C MADM, CMP, DAMIEN, LIPA ####[facility] [address] [place] [address]Dr. Andrea Garcia EGFR-NON AF [place]ER >60 Normal >=60 [facility] Comment on above: Performed By: #### C MADM, CMP, DAMIEN, LIPA ####[facility] [address] [place] [address]Dr. Andrea Garcia Globulin (S) [Mass/Vol] 3.5 g/dL Normal [facility] Comment on above: Performed By: #### C MADM, CMP, DAMIEN, LIPA ####[facility] [address] [place] [address]Dr. Kaylenlan Garcia Glucose [Mass/Vol] 110 mg/dL Critically high 74-106 T [facility] Comment on above: Performed By: #### C MADM, CMP, DAMIEN, LIPA ####[facility] [address] [place] [address]Dr. Andrea Garcia Potassium [Moles/Vol] 4.3 mmol/L Normal 3.5-5.1 [facility] Comment on above: Performed By: #### C MADM, CMP, DAMIEN, LIPA ####[facility] [address] [place] [address]Dr. Kaylenlan Garcia Protein [Mass/Vol] 6.7 g/dL Normal 6.4-8.2 [facility] Comment on above: Performed By: #### C MADM, CMP, DAMIEN, LIPA ####[facility] [address] [place] [address]Dr. Andrea Garcia Sodium [Moles/Vol] 140 mmol/L Normal 136-145 [facility] Comment on above: Performed By: #### C MADM, CMP, DAMIEN, LIPA ####[facility] [address] [place] [address]Dr. Kaylenlan Garcia Urea nitrogen [Mass/Vol] 20.0 mg/dL Critically high 7.0-18.0 [facility] Comment on above: Performed By: #### C MADM, CMP, DAMIEN, LIPA ####[facility] [address] [place] [address]Dr. Andrea Garcia Urea nitrogen/Creatinine [Mass ratio] 18.9 mg/mg Normal [facility] Comment on above: Performed By: #### C MADM, CMP, DAMIEN, LIPA ####[facility] [address] [place] [address]Dr. Adnrea Garcia URINE MICROSCOPIC ONLYon BACTERIA NONE SEEN Normal NONE SEEN [facility] Comment on above: Performed By: #### U MICRO, ERUR #### [facility] [address] [address] [address] Andrea Garcia Bacteria identified Cx Nom (U) NOT INDICATED Normal [facility] Comment on above: Performed By: #### U MICRO, ERUR #### [facility] [address] [address] [address] Andrea Garcia CAST NONE SEEN Normal NONE SEEN [facility] Comment on above: Performed By: #### U MICRO, ERUR #### [facility] [address] [place] [address] Dr. Andrea Garcia Crystals LM Nom (Urine sed) NONE SEEN Normal NONE SEEN [facility] Comment on above: Performed By: #### U MICRO, ERUR #### [facility] [address] [address] [address] Andrea Garcia Epithelial cells LM Ql (Urine sed) NONE SEEN Normal NONE SEEN /RARE [facility] Comment on above: Performed By: #### U MICRO, ERUR #### [facility] [address] [place] [address] Dr. Andrea Garcia MUCOUS NONE SEEN Normal NONE SEEN [facility] Comment on above: Performed By: #### U MICRO, ERUR #### [facility] [address] [address] [address] Andrea Garcia RBC 0-2 Normal 0-2 [facility] Comment on above: Performed By: #### U MICRO, ERUR #### [facility] [address] [address] [address] Andrea Garcia WBC 0-2 Abnormal NONE SEEN [facility] Comment on above: Performed By: #### U MICRO, ERUR #### [facility] [address] [place] [address] Dr. Andrea Garcia XR CHEST 1 Von 01-10-2023 XR CHEST 1 V Exam: Radiographs: X R CHEST 1 V Reason for exam: Nausea/vomiting Comparison: None IMPRESSION: Negative chest. Electronically authenticated by: ADITYA OATES Date: 2023-01-10 07:42 Normal [facility] MRI Soft Tissue Neck w/o + w [...] by KENN RAPHAEL on 10/06/2021 1605 Normal [facility] Resident CT Soft Tissue Neck w/ Contr ast*on [...] by Que Greene on 09/29/2021 1013 Normal [facility] Specialist Vital Signs Date Time Vital Sign Value Performing Clinician Faci lity 01-09-2024 19:01-0400 Diastolic blood pressure 99 mm[Hg] MD Rodriguez Godwin Work Phone: [facility] 01-09-2024 19:01-0400 Heart rate 84 /min MD Rodriguez Godwin Work Phone: [facility] 01-09-2024 19:01-0400 Respiratory rate 18 /min MD Rodriguez Godwin Work Phone: [facility] 01-09-2024 19:01-0400 SaO2% (BldA) [Mass fraction] 97 % MD Rodriguez Godwin Work Phone: [facility] 01-09-2024 19:01-0400 Systolic blood pressure 190 mm[Hg] MD Rodriguez Godwin Work Phone: [facility] 01-09-2024 14:29-0400 Body height 187.96 cm MD Rodriguez Godwin Work Phone: [facility] 01-09-2024 14:29-0400 Body temperature 98.3 [degF] MD Rodriguez Godwin Work Phone: [facility] 01-09-2024 14:29-0400 Body weight 83 kg MD oRdriguez Godwin Work Phone: [facility] 12-18-2023 13:10-0400 Heart rate 85 /min MD Rodriguez Godwin Work Phone: [facility] 12-18-2023 13:09-0400 Body temperature 97.9 [degF] MD Rodriguez Godwin Work Phone: [facility] 12-18-2023 13:09-0400 Diastolic blood pressure 77 mm[Hg] MD Rodriguez Godwin Work Phone: [facility] 12-18-2023 13:09-0400 Respiratory rate 18 /min MD Rodriguez Godwin Work Phone: [facility] 12-18-2023 13:09-0400 SaO2% (BldA) [Mass fraction] 97 % MD Rodriguez Godwin Work Phone: [facility] 12-18-2023 13:09-0400 Systolic blood pressure 161 mm[Hg] MD Rodriguez Godwin Work Phone: [facility] 12-18-2023 13:06-0400 Body height 186.69 cm MD Rodriguez Godwin Work Phone: [facility] 12-18-2023 13:06-0400 Body weight 81 kg MD Rodriguez Godwin Work Phone: [facility] 03-03-2023 13:30-0400 Diastolic blood pressure 100 mm[Hg] MD Rodriguez Godwin Work Phone: [facility] 03-03-2023 13:30-0400 Heart rate 59 /min MD Rodriguez Godwin Work Phone: [facility] 03-03-2023 13:30-0400 Respiratory rate 18 /min MD Rodriguez Godwin Work Phone: [facility] 03-03-2023 13:30-0400 SaO2% (BldA) [Mass fraction] 99 % MD Rodriguez Godwin Work Phone: [facility] 03-03-2023 13:30-0400 Systolic blood pressure 160 mm[Hg] MD Rodriguez Godwin Work Phone: [facility] 03-03-2023 11:36-0400 Body height 175.26 cm MD Rodriguez Godwin Work Phone: [facility] 03-03-2023 [id number] Body temperature 98 [degF] MD Rodriguez Godwin Work Phone: [facility] 03-03-2023 [id number] Body weight 84.3 kg MD Rodriguez Godwin Work Phone: [facility] Encounters Encounter Date Encounter Type Care Provider Facility Start: 01-09-2024 End: 01-09-2024 Emergency department patient visit Rodriguez Godwin Facility:[facility] Start: 01-09-2024 End: 01-09-2024 Emergency department patient visit MD Rodriguez Godwin Work Phone: [facility] Work Phone: Start: 12-18-2023 End: 12-18-2023 Emergency department patient visit Marie Garrison Facility:[facility] Start: 12-18-2023 End: 12-18-2023 Emergency department patient visit MD Rodriguez Godwin Work Phone: [facility] Work Phone: Start: 12-09-2023 End: 12-09-2023 ambulatory [facility] Start: 06-07-2023 End: [facility]07[facility] Start: 05-27-2023 End: 05-27-2023 ambulatory [facility] Start: 04-06-2023 ambulatory [facility] Start: 04-06-2023 End: 04-06-2023 ambulatory [facility] Start: 03-21-2023 End: 03-21-2023 ambulatory MATTIE AVALOS [facility] Start: 03-03-2023 End: 03-03-2023 Emergency department patient visit Ramiro Cortez Facility:[facility] Start: 03-03-2023 End: 03-03-2023 Emergency department patient visit MD Rodriguez Godwin Work Phone: [facility] Work Phone: Start: 01-10-2023 End: 01-11-2023 Evaluation and management of inpatient DR DOCTOR CROCKER Facility:[facility]1 Procedures Date Procedure Procedure Detail Performing Clinician Start: 01-09-2024 CT angiography of thorax MD Rodriguez Godwin Work Phone: Start: 01-09-2024 Plain chest X-ray MD Valdivia Work Phone: Start: 03-03-2023 Plain chest X-ray MD Valdivia Work Phone: Plan of Treatment Date Care Activity Detail Author Start: 12-18-2023 [facility] Patient Education [facility] Work Phone: Patient referral [facility] Work Phone: Payers Date Payer Category Payer Self-pay [id number] 1960 Medicare [id number] 1950 Unknown [id number] Unknown [id number] Unknown [id number] Unknown [id number] Social History Date Type Detail Facility Start: 03-03-2023 End: 01-09-2024 Tobacco smoking status NHIS Ex-smoker (finding) [facility] Start: 1950 Sex Assigned At Male F [facility] Clinical Notes 03-15-2023 to 12-09-2023 Note Date & Type Note Facility 12-09-2023 Note 8K can you read, out of the so I can make changes in [place] Cardiology - [facility] Subjective Jeb Riddle is a 73 y.o. year old male patient being seen for Follow-up (6 months) Patient Active Problem List Diagnosis Unstable angina [...] Never Substance Use Topics Alcohol use: Yes HPI Jeb is seen in follow-up. He is a 73-year-old man who was evaluated in cardiology clinic because of symptoms of chest pain, syncope and evidence of nonsustained ventricular tachycardia on ECG monitoring. He underwent cardiac catheterization on 04/06/2023 which showed mild nonobstructive coronary disease for which he was recommended aspirin and statin therapy. He then underwent a follow-up event monitor that showed episodes of nonsustained ventricular tachycardia. He had consultation with Dr. Shiv Shirley from electrophysiology and after discussions of options he opted for conservative measures, and to remain on beta-florin therapy. He is currently doing well. He denies chest pain. He has no shortness of breath on exertion. He has good exercise tolerance. he reports that a few days ago he was feeling lightheaded. He presented to the emergency room at the [facility] and investigation including a CT scan of the neck that did not show any significant carotid disease. Blood testing was within normal limits. EKG showed sinus rhythm. He complains of leg pains with the statin therapy. He stopped it. He has stopped metoprolol due to feeling fatigued. Review of Systems Cardiovascular: Negative for chest pain, claudication, cyanosis, dyspnea on exertion, irregular heartbeat, leg swelling, near-syncope, orthopnea, palpitations, paroxysmal nocturnal dyspnea and syncope. Objective Visit Vitals BP 164/90 (BP Location: Left arm, Patient Position: Sitting, BP Cuff Size: Adult) Pulse 76 Resp 16 Ht 1.88 m (6' 2 ) Wt 80.8 kg (178 lb 3.2 oz) SpO2 96% BMI 22.88 kg/m??? Smoking Status Former BSA 2.05 m??? Physical Exam Constitutional: Appearance: He is [...] mouth in the morning., Disp: , Rfl: cloNIDine (Catapres) 0.1 mg tablet, 0.1 mg Twice daily at 6am and 6pm., Disp: , Rfl: isosorbide mononitrate ER (Imdur) 30 mg 24 hr tablet, Take 30 mg by mouth in the morning. Do not crush or chew., Disp: , Rfl: LORazepam (Ativan) 1 mg tablet, every 12 (twelve) hours., Disp: , Rfl: magnesium 30 mg tablet, Take 30 mg by mouth in the morning and at bedtime., Disp: , Rfl: mesalamine (Delzicol) [address] capsule, Take 2 capsules by mouth in the morning and at bedtime., Disp: , Rfl: topiramate 50 mg tablet, 50 mg 1 (one) time each day at the same time., Disp: , Rfl: traZODone (Desyrel) 50 mg tablet, 0.5 tablet Orally bedtime as needed, Disp: , Rfl: ezetimibe (Zetia) 10 mg tablet, Take 1 tablet (10 mg) by mouth in the morning., Disp: 90 tablet, Rfl: 3 lisinopril 40 mg tablet, Take 1 tablet (40 mg) by mouth in the morning., Disp: 90 tablet, Rfl: 3 metoprolol succinate XL (Toprol-XL) 25 mg 24 hr tablet, Take 1 tablet (25 mg) by mouth in the morning. Do not crush or chew., Disp: 90 tablet, Rfl: 3 prav (more content not included)... [facility] 06-07-2023 Note [facility] Consult Note Reason [...] norm (more content not included)... [facility] 05-27-2023 Note [place] Cardiology - [facility] Subjective [...] Substance Use Topics Alcohol use: Yes AILIN Jeb is seen in follow-up. He is a [...] Rate 04/06/2023 80 Atrial Rate 04/06/2023 80 WA Interval 04/06/2023 176 QRS DURATION 04/06/2023 98 QT Interval 04/06/2023 396 QTC CALCULATION(BAZETT) 04/06/2023 456 P [place] 04/06/2023 79 R-[place] 04/06/2023 75 T Wave [place] 04/06/2023 73 Imaging and other tests Cardiac catheterization 04/06/2023: Impression/Findings: Coronary angiogram shows non-obstructive coronary artery disease. Plan: Medical therapy for (more content not included)... [facility] 04-06-2023 Note Yes he should. For s yncope he needs a 30d monitor. Can we set him up with a visit either with me or dr. Shirley and 30d monitor please, can do monitor at visit or prior to, whichever works best [facility] 04-06-2023 Note Patient: Jeb lamb Procedure Information Date/Time: 04/06/23 1400 Procedure: Coronary angiography (Left) Location: [facility] BOOK SEWER 3 / [facility] (Cath) Providers: Jessica Forrester MD [...] with attending. Additional Equipment Requests [facility] [facility] 03-21-2023 Note Will continue to mon itor with routine echocardiograms. [facility] 03-21-2023 Note Currently euvolemic without and volume overload Elevated rt disided pressures may be r/t pulmonary process in light of + smoking. [facility] 03-21-2023 Note Will continue to monitor. Stephane mccarthy [facility] 03-21-2023 Note Resume metoprolol 50 mg po bid for arrythmia management Plan for cardiac cath and may need evaluation with EP [facility] 03-21-2023 Note Hypertension is impr jc but he stopped taking metoprolol 100 mg bid r\t fatigue. Will resume metoprolol at 50 mg bid and increase lisinopril to 40 mg daily. Repeat BMP in 1 week [facility] 03-21-2023 Note In light of unstable angina with uncontrolled HTN, multiple syncopal episodes and NSVT will send pt for heart cath- Lt Cors and cancel stress test at this time for ischemic evaluation. [facility] 03-21-2023 Note In light pt admits 2 episodes of syncope while on vacation in [place] with his daughter- denied any symptoms prior to waking up on the floor- broke 3 front teeth in one episode. [facility] 03-21-2023 Note UTP CARDIOLOGY PROGR ESS NOTE HPI: Jeb Riddle is a 72 y.o. male here for hospital f/U after recent inpt at [facility] for chest pain, uncontrolled HTN HPI [...] pain, SOB or palpitations. Was evaluated in [facility] ED recently for near syncope. Reports [...] episodes of syncope while on vacation in [place] with his daughter- denied any symptoms prior [...] routine echocardiograms. RTC post cath [facility] 03-21-2023 Note Patient here for fol low up TB for chest pain and hypertension. Says the isosorbide has helped a lot. Denies SOB, palpitations, and syncope. Feels much better s/p hospital discharge. Review of Systems All other systems reviewed and are negative. [facility] 03-21-2023 Note UTP CARDIOLOGY PROGR ESS NOTE HPI: Jeb Riddle is a 72 y.o. male here for hospital f/U after recent inpt at [facility] for chest pain, uncontrolled HTN HPI Pt states that his b/p at home is much improved and typically 140's/80's, denied chest pain, syncope, palpitations, NARANJO or orthopnea. States that he has continued to bike ride about 10 miles/day without any limiting symptoms. Pt admits that while on vacation in [place] with his daughter recently he had 2 episodes of syncope and collapse- denied any symptoms prior to episode- denied chest pain, SOB or palpitations. Was evaluated in [facility] ED recently for near syncope. Reports [...] episodes of syncope while on vacation in [place] with his daughter- denied any symptoms prior [...] routine echocardiograms. RTC post cath [facility] 03-15-2023 Note Pt was seen as new c onsult at [facility] yesterday for chest pain, Unstable angina, uncontrolled [...] final reading. Stress test ordered. Mattie Avalos [employer] Division of Cardiology, [facility]- [phone] Pager- [phone] Email- [email or web address] Evaluation note No assessment inform ation available [facility] Work Phone: Hospital Discharge instructions Additional Instructions Continue Pepcid once or twice a day as needed [place] diet Follow-up with your family doctor for recheck Return to the ER for worsening pain shortness of breath fever or any other concerns [facility] Work Phone: Summary Purpose Family History No Family History Records Found Relationship Condition Age at Onset Recorded Date/T arline Not Specified No pertinent family history Unknown Advance Directives No Advanced Directives Records Found Advance Directive Response Recorded Date/ Time Advance Directives No September 06, 2019 7:32am Chief Complaint and Reason for Visit Chief Complaint chest discomfort Chief Complaint lightheaded Chief Complaint lightheaded chest pain Additional Source Comments (unrecognized sect ion and content) No Status Records FoundNo Status Records FoundNo Status Records FoundNo Status Records Found INFORMATION SOURCE (unrecogn ized section and content) DATE CREATED AUTHOR 10/07/2021 [facility] dical Specialist DATE CREATED AUTHOR AUTHOR'S ORGANIZ ATION 01/21/2023 [facility] DATE CREATED AUTHOR AUTHOR'S ORGANIZ ATION 12/11/2023 [facility] DATE CREATED AUTHOR AUTHOR'S ORGANIZ ATION 01/09/2024 [facility] ys[facility] Group Care Teams (unrecognized sec tion and content) Team Status: Active Member Role Status Dates Rodriguez Godwin MD Primary Care Provider Active Team Status: Inactive Member Role Status Dates Rodriguez Godwin MD Primary Care Provider Active Ramiro Cortez DO Emergency Provider Active Team Status: Inactive Member Role Status Eduardo Godwin MD Primary Care Provider Active Start: December 18, 2023 End: December 18, 2023 Marie Garrison APRN Emergency Provider Active Start: December 18, 2023 End: December 18, 2023 Team Status: Inactive Member Role Status Eduardo Godwin MD Primary Care Provider Active Start: January 09, 2024 End: January 09, 2024 Naima Boyd [facility] Emergency Provider Active Start: January 09, 2024 End: January 09, 2024 Goals (unrecognized section and content) Goals may be documented in a n alternate sectionGoals may be documented in an alternate sectionGoals may be documented in an alternate section FOR RECORDS PERTAINING TO PATIENTS [...] BE BASED ON THE PRIMARY CLINICAL RECORDS. [employer] provides no warranty or guarantee of the accuracy or completeness of information in this document.
== END 2024-02-02 07:02 | disposition home or self-care (01) ==
LOC: CARD 07:02
PROVIDERS: Family Provider Family Medicine; PCP Family Medicine; Visit Provider Internal Medicine Interventional Cardiology
DX: I51.7 Cardiomegaly (principal); I11.9 Hypertensive heart disease without heart failure
CPT/HCPCS: 93306; 93356

== ENCOUNTER 2024-02-21 10:54 | Outpatient (OUT) | payer MEDICARE, SELFPAY ==
--- NOTE | 2024-02-21 11:03 | US_ITS ---
The [place] [id number] Patient Name: JEB TOBIAS MRN: [id number] date: 1950 Sex: M Assigned Patient Location: RAD Current Patient Location: [facility] Accession/Order Number: [id number] Exam Date: 02/21/2024 11:30 Report Date: 02/21/2024 14:37 At the request of: LAUREN VALLEJO Procedure: US venous doppler LE LT EXAM: US venous doppler LE LT HISTORY: Left Leg Pain M79.605 COMPARISON: None. TECHNIQUE: Grayscale, color and Doppler FINDINGS: Region: Left leg Thrombus: Echogenic thrombus identified in a short segment of the left gastrocnemius vein Flow: Absent flow corresponding to thrombus Compressibility: Absent compressibility corresponding to thrombus Augmentation: Normal proximal augmentation Findings called by the technologist to Dr. Vallejo at the time of exam. US/US venous doppler LE LT IMPRESSION: Short segment of the deep vein thrombus in a left gastrocnemius vein Electronically authenticated by: ROBERT DAVENPORT Date: 02/21/2024 14:37
== END 2024-02-21 10:55 | disposition home or self-care (01) ==
LOC: RAD 10:56
PROVIDERS: Family Provider Family Medicine; PCP Family Medicine; Visit Provider Family Medicine
DX: M79.605 Pain in left leg (principal); I82.4Z2 Acute embolism and thrombosis of unspecified deep veins of left distal lower extremity
CPT/HCPCS: 93971

== ENCOUNTER 2024-03-19 15:34 | Observation (INO) | payer MEDICARE, SELFPAY ==
[2024-03-19] VITALS (41 sets, daily range): BP systolic 135–193; BP diastolic 75–112; PULSE 49–85; TEMP 36.7–36.8; O2SAT 95–99; BMI 22.9; BMI 15.8
--- NOTE | 2024-03-19 16:12 | ECG_ITS ---
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
--- NOTE | 2024-03-19 16:13 | CT_ITS ---
The [address] [address] Patient Name: JEB TOBIAS MRN: [id number] date: 1950 Sex: M Assigned Patient Location: ER Current Patient Location: .MAIN Accession/Order Number: [id number] Exam Date: 03/19/2024 17:32 Report Date: 03/19/2024 19:30 At the request of: EDITH MARADIAGA Procedure: CT angio chest EXAM: CT angio chest . HISTORY: Chest pain, DVT, rule-out PE COMPARISON: None. TECHNIQUE: Initially, thin section noncontrast images through portions of the chest were obtained for the purpose of establishing proper bolus timing of contrast. Subsequently, thin section axial CT images were obtained through the chest after intravenous administration of nonionic contrast as per protocol. To optimally assess the thoracic vasculature, the original axial data was used to create 3D volume rendered, multiplanar reformatted and/or maximum intensity projection images in various planes. The axial and reformatted data were reviewed for this report. In accordance with CT protocols and the ALARA principle, radiation dose reduction techniques were utilized for this examination. Dose reduction techniques were achieved by using automated exposure control and/or adjustment of mA and/or kV according to patient size and/or use of iterative reconstruction technique. COMPARISON: None. FINDINGS: Bolus opacification of the pulmonary arteries was adequate for purposes of diagnosis. There is acute segmental and subsegmental pulmonary emboli within the right upper lobe involving anterior right upper lobe segmental branch and multiple adjacent smaller subsegmental branches extending to the right upper lobe. No additional right-sided pulmonary emboli are identified. No left-sided PE or central or saddle embolus. The lungs are free of acute cardiopulmonary disease. No hilar or mediastinal lymphadenopathy. Normal size and appearance of cardiac chambers. No obvious right heart strain. No dissection. No thoracic aortic aneurysm. The thoracic aorta and great vessels are unremarkable. No pulmonary venous congestion. Pulmonary arteries are normal in configuration. There is no pleural effusion or mass. No pulmonary nodules or masses are identified. No acute upper abdominal findings. There is no body wall mass. There is no destructive osseous process. CT/CT angio chest IMPRESSION: 1. Acute segmental and subsegmental branch PE involving right upper lobe as discussed. 2. Clear lungs. Electronically authenticated by: SEBLE CHAMPION Date: 03/19/2024 19:30
--- NOTE | 2024-03-19 16:14 | US_ITS ---
The [address] [address] Patient Name: JEB TOBIAS MRN: [id number] date: 1950 Sex: M Assigned Patient Location: ED.MAIN Current Patient Location: ER Accession/Order Number: [id number] Exam Date: 03/19/2024 17:55 Report Date: 03/19/2024 19:03 At the request of: EDITH MARADIAGA Procedure: US venous doppler LE LT EXAM: US venous doppler LE LT HISTORY: DVT history, follow-up COMPARISON: 02/21/2024 TECHNIQUE: Multiple sonographic images of the deep veins of the left lower extremity were obtained, supplemented with Doppler. FINDINGS: The deep veins of the left lower extremity are fairly well-visualized the groin to the mid calf. No filling defect is identified in the deep veins to indicate a thrombus. There is normal compression augmentation of flow. In the prior study, thrombus was identified in the right gastrocnemius vein. This finding is no longer apparent. US/US venous doppler LE LT IMPRESSION: Interval clearing of the deep veins. There is no direct or indirect evidence of deep vein thrombosis in the left lower extremity at this time. Electronically authenticated by: SYLVIE MCLAUGHLIN Date: 03/19/2024 19:03
[2024-03-19 16:18] LABS: Basophils Percent Auto 0.3 % (0.2-2.0); Eosinophils Absolute Auto 0.2 10^3/uL (0.0-0.7); Eosinophils Percent Auto 2.6 % (0.9-7.0); Hematocrit 34.8 % (42.0-54.0); Immature Granulocytes Abs Auto 0.02 10^3/uL (0.00-0.03); Immature Granulocytes Pct Auto 0.3 % (0.0-0.5); Lymphocytes Absolute Auto 2.3 10^3/uL (1.2-3.8); Lymphocytes Percent Auto 29.9 % (20.5-60.0); Mean Corpuscular HGB Conc 34.5 g/dL (29.9-35.2); Mean Corpuscular Hemoglobin 32.6 pg (25.9-34.0); Mean Corpuscular Volume 94.6 fL (80.0-94.0); Mean Platelet Volume 10.3 fL (9.5-13.5); Monocytes Absolute Auto 0.5 10^3/uL (0.3-0.8); Monocytes Percent Auto 6.3 % (1.7-12.0); Neutrophils Absolute Auto 4.6 10^3/uL (1.4-6.5); Neutrophils Percent Auto 60.6 % (43.0-75.0); Platelet Count 206 10^3/uL (150-450); Red Blood Count 3.68 10^6/uL (4.70-6.10); Red Cell Distribution Width 12.6 % (11.0-15.0); White Blood Count 7.6 10^3/uL (4.0-11.0)
[2024-03-19] MEDS: 0.9 % SODIUM CHLORIDE 1,000 ML 999 ML IV (16:23)
[2024-03-19 16:33] LABS: Anion Gap 11.7; BUN Creatinine Ratio 28.9; Calcium 8.3 mg/dL (8.5-10.1); Carbon Dioxide 24.2 mmol/L (21.0-32.0); Chloride 103 mmol/L (98-107); Estimated GFR (African America >60 (>=60); Estimated GFR (Non-African Ame 55 (>=60); Glucose 107 mg/dL (74-106); Potassium 4.9 mmol/L (3.5-5.1); Sodium 134 mmol/L (136-145); Troponin I High Sensitivity 5.3 pg/mL (4.0-76.1)
[2024-03-19 16:39] LABS: INR 1.03; Partial Thromboplastin Time 27.1 sec (22.3-36.2); Prothrombin Time 10.9 sec (9.0-11.6)
--- NOTE | 2024-03-19 17:11 | ED_ITS ---
HPI HPI - General Adult General Chief complaint: Dizziness Stated complaint: DIZZINESS, LOW BP, WEAKNESS, HX BLOOD CLOT L LEG Time Seen by Provider: 03/19/24 15:51 Source: patient Mode of arrival: walk-in Limitations: no limitations Related Data Home Medications ?Medication ?Instructions ?Recorded ?Confirmed lisinopril 5 mg tablet 10 mg PO BID 02/25/23 12/02/23 mesalamine 400 mg capsule (with 800 mg PO BID 02/25/23 12/02/23 delayed release tablets inside) desvenlafaxine succinate 50 mg 50 mg PO DAILY 03/14/23 12/02/23 tablet,extended release 24 hr ondansetron 8 mg disintegrating 8 mg PO Q8H PRN nausea and vomiting 09/02/23 12/02/23 tablet Previous Rx's ?Medication ?Instructions ?Recorded aspirin 325 mg tablet 325 mg PO DAILY #30 tabs 03/14/23 isosorbide mononitrate 30 mg 30 mg PO QAM #30 tabs 03/14/23 tablet,extended release 24 hr Allergies Allergy/AdvReac Type Severity Reaction Status Date / Time Fish Containing Products AdvReac Severe Abdominal Verified 03/19/24 15:43 Pain Opioid HPI Opioid Management Most Recent Opioid Data: Last Pain Scale 10 11/01/23 20:07 Review of Systems ROS Status of ROS 10 or more systems reviewed and unremark able except as noted in history and below [facility] Medical History (Updated 03/19/24 @ 17:16 by Warner Su MD) Dehydration ?E86.0 - Dehydration (ICD-10) DAVID (acute kidney injury) ?N17.9 - Acute kidney failure, unspecified (ICD-10) Abdominal pain ?R10.9 - Unspecified abdominal pain (ICD-10) Nausea & vomiting ?R11.2 - Nausea with vomiting, unspecified (ICD-10) Hypertension ?I10 - Essential (primary) hypertension (ICD-10) Crohn disease ?K50.90 - Crohn's disease, unspecified, without complications (ICD-10) Surgical History (Updated 03/13/23 @ 20:01 by Bita Cyr RN) History of bowel resection ?Z90.49 - Acquired absence of other specified parts of digestive tract (ICD- 10) Family History (Updated 03/13/23 @ 20:02 by Bita Cyr RN) Father Family history of COPD (chronic obstructive pulmonary disease) Family history of diabetes mellitus Family history of myocardial infarction Brother Family history of cancer Mother Family history of diabetes mellitus Other Family history of hypertension Social History Within the past year, how often did you have a drink containing alcohol: 2-3 times a week Within the past year, how many standard drinks containing alcohol did you have on a typical day: 1 or 2 Within the past year, how often did you have six or more drinks on one occasion: never Total score: 0 Score interpretation: A score less than 4 is consistent with normal alcohol consumption. 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 Little interest or pleasure in doing things: not at all Feeling down, depressed, or hopeless: not at all Feel stressed/tense/nervous/anxious/difficulty sleeping: not at all Do you think of yourself as: straight/heterosexual Gender Identity: male Exam Narrative Exam Narrative: VITALS: I have reviewed the triage vital signs. GENERAL: Well developed, well appearing adult in no acute distress. NEURO: Alert and oriented. Moves all extremities. Face is symmetric and expressive. EYES: PERRL. No scleral icterus or conjunctival injection. No discharge. HENT: Normocephalic, atraumatic. Hearing is grossly intact. Nares grossly patent and without discharge. Mucous membranes moist. NECK: No JVD. Patient moves neck without restriction. CARDIO: Rhythm regular. Normal rate. No murmur, rub, or gallop. Pulses equal bilaterally in the upper and lower extremity. No lower extremity edema. PULM: Lungs clear to auscultation in all orozco. No wheezes, rales, or rhonchi. No conversational dyspnea. No splinting, stridor, or accessory muscle use. GI/: Abdomen is soft and non-tender. Normoactive bowel sounds. EXTREMITIES: Symmetric muscle bulk. No joint swelling. No clubbing, cyanosis, or deformity. SKIN: Warm and dry. Normal turgor. No rash or lesions appreciated. PSYCH: Anxious Constitutional Vital Signs, click to edit/add: Last Vital Signs Temp 98.2 F 03/19/24 15:43 Pulse 61 03/19/24 15:43 Resp 16 03/19/24 15:43 BP 167/75 H 03/19/24 15:43 Pulse Ox 99 03/19/24 15:43 O2 Del Method Room Air 03/19/24 15:43 Course Vital Signs Vital signs: Vital Signs Temperature 98.2 F 03/19/24 15:43 Pulse Rate 61 03/19/24 15:43 Respiratory Rate 16 03/19/24 15:43 Blood Pressure 167/75 H 03/19/24 15:43 Pulse Oximetry 99 03/19/24 15:43 Oxygen Delivery Method Room Air 03/19/24 15:43 Temperature 98.2 F 03/19/24 15:43 Pulse Rate 61 03/19/24 15:43 Respiratory Rate 16 03/19/24 15:43 Blood Pressure 167/75 H 03/19/24 15:43 Pulse Oximetry 99 03/19/24 15:43 Oxygen Delivery Method Room Air 03/19/24 15:43 Medical Decision Making [facility] Narrative Medical decision making narrative: 73-year-old male to the emergency department chief complaint of left-sided chest pain. Patient reports that he had recent DVT for which he discontinued his anticoagulation due to some blood in the stool. He reports that today he was feeling a little lightheaded and dehydrated so he did a leg lift and then experience some chest pain. He is now concerned he may have a pulmonary embolism. Cardiac workup is initiated. Will obtain a CTA and a duplex of the left lower extremity. Patient agrees with this plan. Fluids are ordered. Care was signed out to Dr. Worley with diagnostic imaging results and disposition pending. Diagnosis: Atypical chest pain Heart Score for Major Cardiac Event History: Example factors for history - pattern of chest pain, onset, duration, relation with exercise, stress or cold, localization, concomitant symptoms. reaction to sublingual nitrates, [] Highly suspicious +2 [] Moderately suspicious +1 [x] Slightly suspicious 0 EKG: [] Significant ST-Depression +2 [] Non specific repolarization disturbance +1 [x] Normal 0 Age: [x] >= 65 +2 [] 45-65 + 1 [] <45 0 Risk Factors: (HLD, HTN, DM, Cigarette Smoking, Pos Family Hx, Obesity) [x] >3 risk factors or hx of atherosclerotic disease + 2 [] 1-2 risk factors + 1 [] No risk factors known 0 Troponin: [] >= 3X normal + 2 [] 1-3X normal + 1 [x] <= Normal 0 [] 0-3 Points 0.9 - 1.7% risk of major adverse cardiac event in 6 weeks [] 4-6 Points 12-16.6% risk of major adverse cardiac event in 6 weeks [] 7-10 Points 50-65% risk of major adverse cardiac event in 6 weeks [] 0-3 Points with 2 sets of negative cardiac markers <1% risk of major adverse cardiac event in 30 days. Medical Records Medical records reviewed: Yes I reviewed the patient's medical records Lab Data Lab results reviewed: Yes I reviewed the patient's lab results Labs: Lab Results 03/19/24 Range/Units 16:00 WBC 7.6 (4.0-11.0) 10^3/uL RBC 3.68 L (4.70-6.10) 10^6/uL Hgb 12.0 L (14.0-18.0) g/dL Hct 34.8 L (42.0-54.0) % MCV 94.6 H (80.0-94.0) fL MCH 32.6 (25.9-34.0) pg MCHC 34.5 (29.9-35.2) g/dL RDW 12.6 (11.0-15.0) % Plt Count 206 (150-450) 10^3/uL MPV 10.3 (9.5-13.5) fL Neut % (Auto) 60.6 (43.0-75.0) % Lymph % (Auto) 29.9 (20.5-60.0) % [place] % (Auto) 6.3 (1.7-12.0) % Eos % (Auto) 2.6 (0.9-7.0) % Baso % (Auto) 0.3 (0.2-2.0) % Neut # (Auto) 4.6 (1.4-6.5) 10^3/uL Lymph # (Auto) 2.3 (1.2-3.8) 10^3/uL [place] # (Auto) 0.5 (0.3-0.8) 10^3/uL Eos # (Auto) 0.2 (0.0-0.7) 10^3/uL Baso # (Auto) 0.0 (0.0-0.1) 10^3/uL Abs Immat Gran (auto) 0.02 (0.00-0.03) 10^3/uL Imm/Tot Granulo (auto) 0.3 (0.0-0.5) % PT 10.9 (9.0-11.6) sec INR 1.03 APTT 27.1 (22.3-36.2) sec Sodium 134 L (136-145) mmol/L Potassium 4.9 (3.5-5.1) mmol/L Chloride 103 (98-107) mmol/L Carbon Dioxide 24.2 (21.0-32.0) mmol/L Anion Gap 11.7 BUN 37.0 H (7.0-18.0) mg/dL Creatinine 1.28 (0.70-1.30) mg/dL Est GFR ( Amer) >60 (>=60) Est GFR (Non-Af Amer) 55 L (>=60) BUN/Creatinine Ratio 28.9 Glucose 107 H (74-106) mg/dL Calcium 8.3 L (8.5-10.1) mg/dL Troponin I High Sens 5.3 (4.0-76.1) pg/mL ECG Data Attestation: I personally reviewed and interpreted this ECG as follows: (Normal sinus rhythm at a rate of 65. No STEMI. No change from previous EKG on . Normal QTc) Prior ECG tracings: available for review (12/02/23) Discharge Plan Discharge Patient Disposition: Still a Patient
[2024-03-19 19:30] LABS: Troponin I High Sensitivity 7.3 pg/mL (4.0-76.1)
[2024-03-19 19:59] LABS: Partial Thromboplastin Time 26.8 sec (22.3-36.2)
[2024-03-19] MEDS: HEPARIN SODIUM (PORCINE) 5,000 UNIT/ML VIAL 4300 UNIT IV (20:14)
[2024-03-19] MEDS: HEPARIN SODIUM,PORCINE/D5W 25,000 UNIT/500 ML IV.SOLN 29.066 UNIT IV (20:15)
[2024-03-19] MEDS: CLONIDINE HCL 0.1 MG TABLET PO (21:00)
--- OUTSIDE RECORDS SUMMARY | 2024-03-19 21:33 | XMS_ITS | CCD ---
Author Organization [facility] Care Team Providers Care Balancing Machine Operator Name Role Phone DR BEHZAD CROCKER Primary Care Unavailable DANIEL ., JUNI Attending Unavailable DANIEL ., JUNI Admitting Unavailable DR ROBERT DAVENPORT V Consulting Unavailable PITER GROSSMAN Consulting Unavailable DANIEL ., JUNI Consulting Unavailable DIAB ., GRAYSON Consulting Unavailable ADITYA OATES Consulting Unavailable MD Rodriguez Godwin Primary Care Provider [phone] DO Ramiro Cortez Emergency Provider [phone] MD Rodriguez Godwin Primary Care Provider [phone] KYA Garrison Emergency Provider Deb [facility] Naima Phelan Emergency Provider Rodriguez Godwin Primary Care Unavailable Naima Boyd Admitting Unavailable Naima Boyd Attending Unavailable Ramiro Cortez Admitting Unavailable Ramiro Cortez Attending Unavailable Rodriguez Godwin Primary Care Unavailable Marie Garrison Attending Unavailable Rodriguez Godwin Primary Care Unavailable Marie Garrison Admitting Unavailable JESSICA FORRESTER Admitting Unavailable JESSICA FORRESTER Attending Unavailable JESSICA FORRESTER Referring Unavailable JESSICA FORRESTER Attending Unavailable JESSICA FORRESTER Attending Unavailable MATTIE AVALOS Attending Unavailable SHIV SHIRLEY Attending Unavailable Allergies Allergy Classification Reported Allergen(s) Allergy Type Date of Onset Reaction(s) Facility (2 sources) Fish derivative; Translations: [fish derived] Propensity to adverse reactions 03-03-20 Gastrointestinal Upset [facility] Medications Current Medications Medication Drug Class(es) Dates [...] disease (6 sources) Atherosclerotic heart disease of [place] coronary artery without angina pectoris; Translations: [Atherosclerotic heart disease of [place] coronary artery with other forms of angina pectoris] Onset: 03-15-2023 Chronic Essential hypertension (3 sources) Essential (primary) hypertension; Translations: [ESSENTIAL PRIMARY HYPERTENSION] Onset: 01-12-2023 Chronic Heart valve disorders (4 sources) Nonrheumatic mitral (valve) insufficiency; Translations: [Nonrheumatic aortic (valve) insufficiency] Onset: 03-21-2023 Chronic Other aftercare (1 source) 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; Translations: [[facility] USE OF SYSTEMIC STEROIDS] Onset: 01-12-2023 Episodic Other aftercare (1 source) 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; Translations: [OTH [facility] CURRENT DRUG THERAPY] Onset: 01-12-2023 Episodic Other [...] HISTORY OF NICOTINE DEPEND] Onset: 01-12-2023 Episodic Unclassified (1 source) Ventricular tachycardia, unspecified; Translations: [Ventricular tachycardia, unspecified] Onset: 03-24-2023 Unclassified (1 source) Other ventricular tachycardia; Translations: [Other ventricular tachycardia] Onset: 03-21-2023 Past or Other Problems Problem Classification Problem Date Documented Da te Episodic/Chronic Nonspecific chest pain (2 sources) Atypical chest pain; Translations: [Other chest pain] Onset: 03-03-2023 01-09-2024 Episodic Syncope (5 sources) Near syncope; Translations: [Syncope and collapse] Onset: 03-21-2023 03-03-2023 Episodic Unclassified (1 source) Ventricular tachycardia, unspecified; Translations: [Ventricular tachycardia, unspecified] Onset: 04-06-2023 Unclassified (1 source) Other ventricular tachycardia; Translations: [Other ventricular tachycardia] Onset: 03-21-2023 Results Test Name Value Interpretation Reference Range Facility 36on 02-17-2024 36 Patient called back and said he is taking meds as prescribed at last visit with Dr. Forrester. I made him apt with Dr. Forrester end of Mar since he is not here in Apr. [facility] 36on 02-15-2024 36 Regarding echo from 02/02/2024: MD Yuridia Herman MA Has he been taking meds as I recommended at last visit? 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 He should come for a visit in 3 months. LM w/ sister Mary to return my call. [facility] Activated partial thrombopla stin time (aPTT) in platelet poor plasma by coagulation aOrdered By: Naima Boyd on 01-09-2024 aPTT Coag (PPP) [Time] 29.1 s 25.1-36.[address] [facility] Comment on above: A hematocrit value g reater than 55% may lead to inaccurate results in coagulation testing. Patients having hematocrit values >55% require a special collection tube for coagulation studies. Please contact the laboratory at [phone] for redraw instructions. B-Type Natriuretic Peptideon 01-09-2024 Natriuretic peptide B (Bld) [Mass/Vol] 172.0 pg/mL High 5-100 [facility] Comment on above: Result Comment: PERF ORMED BY: [facility] [address] [place] [address] PATHOLOGIST BIODIESEL TECHNOLOGY MANAGER RADHA BARRON M.D. Performed By: #### B IT SUPPORT ENGINEER, HS TROP, BMP, CK, DIFF CBC ####[address] Basic Metabolic Panelon 05-2 Anion gap [Moles/Vol] Not performed Normal 6.0-15.0 [facility] Comment on above: Performed By: #### B IT SUPPORT ENGINEER, HS TROP, BMP, CK, DIFF CBC ####[address] Calcium [Mass/Vol] 8.7 mg/dL Normal 8.6-10.3 [facility] Comment on above: Performed By: #### B IT SUPPORT ENGINEER, HS TROP, BMP, CK, DIFF CBC ####[address] Chloride [Moles/Vol] 109 mmol/L High 98-107 [facility] Comment on above: Performed By: #### B IT SUPPORT ENGINEER, HS TROP, BMP, CK, DIFF CBC ####[address] CO2 [Moles/Vol] 22.4 mmol/L Normal 21.0-31.0 [facility] Comment on above: Performed By: #### B IT SUPPORT ENGINEER, HS TROP, BMP, CK, DIFF CBC ####[address] Creatinine [Mass/Vol] 1.16 mg/dL Normal 0.70-1.30 [facility] Comment on above: Performed By: #### B IT SUPPORT ENGINEER, HS TROP, BMP, CK, DIFF CBC ####[address] Creatinine Clr Calc Pharmacy 64.96 Normal [facility] Comment on above: Result Comment: PERF ORMED BY: [facility] [address] [place] [address] PATHOLOGIST BIODIESEL TECHNOLOGY MANAGER RADHA BARRON M.D. Performed By: #### B IT SUPPORT ENGINEER, HS TROP, BMP, CK, DIFF CBC ####[address] GFR/1.73 sq M.predicted MDRD (S/P/Bld) [Vol rate/Area] mL/min/{1.73_m2} Normal [facility] Comment on above: Performed By: #### B IT SUPPORT ENGINEER, HS TROP, BMP, CK, DIFF CBC ####[place] [id number] Glucose [Mass/Vol] 95 mg/dL Normal 70-100 [facility] Comment on above: Result Comment: [facility] Glucose Reference Range is dependent on time and content of last meal. Glucose of more than 200 mg/dL in a nonstressed, ambulatory subject supports the diagnosis of Diabetes Mellitus. ADA recommended reference range Performed By: #### B IT SUPPORT ENGINEER, HS TROP, BMP, CK, DIFF CBC ####[place] [address] Potassium Normal 3.5-5.1 [facility] Comment on above: Result Comment: Spec imen hemolyzed, redraw requested Performed By: #### B IT SUPPORT ENGINEER, HS TROP, BMP, CK, DIFF CBC ####[address] Sodium [Moles/Vol] 142 mmol/L Normal 136-145 [facility] Comment on above: Performed By: #### B IT SUPPORT ENGINEER, HS TROP, BMP, CK, DIFF CBC ####[place] [id number] [facility] Urea nitrogen [Mass/Vol] 20 mg/dL Normal 7-25 [facility] Comment on above: Performed By: #### B IT SUPPORT ENGINEER, HS TROP, BMP, CK, DIFF CBC ####[place] [id number] [facility] Basophils Auto (Bld) [#/Vol] Ordered By: Naima Boyd on 01-09-2024 Basophils (Bld) [#/Vol] N/A [facility] Basophils/100 WBC Auto (Bld) Ordered By: Naima Godwinimore on 01-09-2024 Basophils/100 WBC (Bld) N/A [facility] Basophils/100 WBC Manual cnt (Bld)Ordered By: Naima Boyd on 01-09-2024 Basophils/100 WBC (Bld) 0 % 0-[address] [facility] [address] angio chest PE protocolon 01-09-2024 CT angio chest PE protocol [facility] [place] [address] [place] [address] Scan Report Signed Patient: Jeb Riddle MR#: [id number] : 1950 Acct:[id number] Age/Sex: 73 / M ADM Date: 01/09/24 Loc: ER Room: Type: [facility] ER Attending Dr: Copies to: SABA Blankenship Ordering Provider: SABA Blaneknship Date of Service: 01/09/24 CT/CT angio chest PE protocol: chest pain elev dimer 1905 CT angio chest PE protocol 01/09/2024 5:33 [...] Jeb Collins M.D.01/09/2024 6:17 PM Dictation Location: [place] [address] Transcribed By: [facility] 01/09/241816 Dictated By: Jeb Collins II, MD 01/09/241810 Signed By: 01/09/241816 Normal [facility] Calcium [Mass/volume] in Ser um or PlasmaOrdered By: Naima Boyd on 01-09-2024 Calcium [Mass/Vol] 8.7 mg/dL 8.6-10.3 [facility] Carbon dioxide, total [Moles /volume] in Serum or PlasmaOrdered By: Naima Boyd on 01-09-2024 CO2 [Moles/Vol] 22.4 mmol/L 21.0-31.0 [facility] Chloride [Moles/volume] in S pooja or PlasmaOrdered By: Naima Boyd on 01-09-2024 Chloride [Moles/Vol] 109 mmol/L 98-107 [facility] Coagulation Profileon 2023 aPTT Coag (Bld) [Time] 29.1 s Normal 25.1-36.5 [facility] Comment on above: Order Comment: REDRA W Result Comment: A he matocrit value greater than 55% may lead to inaccurate results in coagulation testing. Patients having hematocrit values >55% require a special collection tube for coagulation studies. Please contact the laboratory at [phone] for redraw instructions. Performed By: #### P P, DDIMER ####[facility] [id number] [place] [id number] [facility] INR Coag (PPP) [Relative time] 1.0 {INR} Normal [facility] Comment on above: Order Comment: [...] By: #### P P, DDIMER ####[facility] [id number] [place] [id number] [facility] PT Coag (PPP) [Time] 11.9 s Normal 9.0-12.9 [facility] Comment on above: Order Comment: REDRA W Result Comment: A he matocrit value greater than 55% may lead to inaccurate results in coagulation testing. Patients having hematocrit values >55% require a special collection tube for coagulation studies. Please contact the laboratory at [phone] for redraw instructions. Performed By: #### P P, DDIMER ####[facility] [address] [place] [id number] [facility] Creatine Kinaseon 01-09-2024 CK [Catalytic activity/Vol] 81 U/L Normal [facility] Comment on above: Performed By: #### B IT SUPPORT ENGINEER, HS TROP, BMP, CK, DIFF CBC ####[place] [address] [place] [id number] [facility] Creatine kinase [Enzymatic a ctivity/volume] in Serum or PlasmaOrdered By: Naima Boyd on 01-09-2024 CK [Catalytic activity/Vol] 81 U/L - [facility] Creatinine [Mass/volume] in Serum or PlasmaOrdered By: Naimadevora Godwinimore on 01-09-2024 Creatinine [Mass/Vol] 1.16 mg/dL 0.70-1.30 [place] D-Dimer High Sensitivityon 0 01-09-2024 D-Dimer High Sensitivity 1905 ng/mL High 0-243 [facility] Comment on above: Order Comment: [...] coagulation studies. Please contact the laboratory at [phone] for redraw instructions. PERFORMED BY: [address] [place] [address] PATHOLOGIST BIODIESEL TECHNOLOGY MANAGER RADHA BARRON M.D. Performed By: #### P P, DDIMER ####[address] Diff and CBCon 01-09-2024 Basophils/100 WBC (Bld) 0 % Normal 0-2 [facility] Comment on above: Performed By: #### B IT SUPPORT ENGINEER, HS TROP, BMP, CK, DIFF CBC ####[address] Eosinophils/100 WBC (Bld) 4 % High 1-3 [facility] Comment on above: Performed By: #### B IT SUPPORT ENGINEER, HS TROP, BMP, CK, DIFF CBC ####[address] Erythrocyte distribution width (RBC) [Ratio] 14.9 % High 12.0-14.8 [facility] Comment on above: Performed By: #### B IT SUPPORT ENGINEER, HS TROP, BMP, CK, DIFF CBC ####[address] Hematocrit (Bld) [Volume fraction] 41.9 % Normal 38.8-50.0 [facility] Comment on above: Performed By: #### B IT SUPPORT ENGINEER, HS TROP, BMP, CK, DIFF CBC ####[address] Hemoglobin (Bld) [Mass/Vol] 14.1 g/dL Normal 13.0-17.0 [facility] Comment on above: Performed By: #### B IT SUPPORT ENGINEER, HS TROP, BMP, CK, DIFF CBC ####[address] [address] [place] Lymphocytes/100 WBC (Bld) 27 % Normal 18-42 [facility] Comment on above: Performed By: #### B IT SUPPORT ENGINEER, HS TROP, BMP, CK, DIFF CBC ####[address] MCH (RBC) [Entitic mass] 32.0 pg Normal 27.5-35.2 [facility] Comment on above: Performed By: #### B IT SUPPORT ENGINEER, HS TROP, BMP, CK, DIFF CBC ####[address] MCV (RBC) [Entitic vol] 95.1 fL Normal 83.5-101 [facility] Comment on above: Performed By: #### B IT SUPPORT ENGINEER, HS TROP, BMP, CK, DIFF CBC ####[address] Mean Corpuscular HGB Conc 33.6 g/dL Normal 32.5-35.6 [facility] Comment on above: Performed By: #### B IT SUPPORT ENGINEER, HS TROP, BMP, CK, DIFF CBC ####[address] Monocytes/100 WBC (Bld) 25.58 % High 0.00-20.00 [facility] Comment on above: Result Comment: For adults in ED, MDW > 20.0 may be associated with a higher risk of sepsis during the first 12 hrs of hospital admission Performed By: #### B IT SUPPORT ENGINEER, HS TROP, BMP, CK, DIFF CBC ####[address] Monocytes/100 WBC (Bld) 7 % Normal 2-11 [facility] Comment on above: Performed By: #### B IT SUPPORT ENGINEER, HS TROP, BMP, CK, DIFF CBC ####[address] Nucleated Red Blood Cell 0 /100{WBC} Normal 0-0 [facility] Comment on above: Performed By: #### B IT SUPPORT ENGINEER, HS TROP, BMP, CK, DIFF CBC ####[address] Platelet Estimate Normal Normal Normal [facility] Comment on above: Performed By: #### B IT SUPPORT ENGINEER, HS TROP, BMP, CK, DIFF CBC ####[address] Platelet mean volume (Bld) [Entitic vol] 8.6 fL Normal 6.6-10.1 [facility] Comment on above: Performed By: #### B IT SUPPORT ENGINEER, HS TROP, BMP, CK, DIFF CBC ####[address] Platelet Morphology Normal Normal Normal [facility] Comment on above: Performed By: #### B IT SUPPORT ENGINEER, HS TROP, BMP, CK, DIFF CBC ####[address] Platelets (Bld) [#/Vol] 240 10*3/uL Normal 150-450 [facility] Comment on above: Performed By: #### B IT SUPPORT ENGINEER, HS TROP, BMP, CK, DIFF CBC ####[address] Plt Comment SEE COMMENT BELOW Normal [facility] Comment on above: Result Comment: NO C LOTS, NO CLUMPS, SHORT DRAW LFM PERFORMED BY: [place] [address] PATHOLOGIST BIODIESEL TECHNOLOGY MANAGER RADHA BARRON M.D. Performed By: #### B IT SUPPORT ENGINEER, HS TROP, BMP, CK, DIFF CBC ####[address] RBC (Bld) [#/Vol] 4.41 10*6/uL Normal 3.90-5.60 [facility] Comment on above: Performed By: #### B IT SUPPORT ENGINEER, HS TROP, BMP, CK, DIFF CBC ####[address] RBC morphology finding Nom (Bld) Normal Normal Normal [facility] Comment on above: Performed By: #### B IT SUPPORT ENGINEER, HS TROP, BMP, CK, DIFF CBC ####[address] [place] [address] [place] Segmented neutrophils/100 WBC (Bld) 62 % Normal 50-70 [facility] Comment on above: Performed By: #### B IT SUPPORT ENGINEER, HS TROP, BMP, CK, DIFF CBC ####[facility] WBC (Bld) [#/Vol] 7.6 10*3/uL Normal 4.1-10.5 [facility] Comment on above: Performed By: #### B IT SUPPORT ENGINEER, HS TROP, BMP, CK, DIFF CBC ####[place] [address] [place] [address] [facility] WBC (Bld) [#/Vol] 8.4 10*3/uL Normal 4.1-10.5 [facility] Comment on above: Performed By: #### B IT SUPPORT ENGINEER, HS TROP, BMP, CK, DIFF CBC ####[address] ECG 12 lead ECGon 01-09-2024 ECG 12 lead ECG [facility] [place] [address] Electrocardiograph Report Signed Patient: Jeb Riddle MR#: [id number] : 1950 Acct:[id number] Age/Sex: 73 / M ADM Date: 01/09/24 Loc: ER Room: Type: [facility] Attending Dr: Ordering Provider: SABA Blankenship Date [...] Patterson DO 1828 Normal [facility] Eosinophils Auto (Bld) [#/Vo l]Ordered By: Naima Boyd on 01-09-2024 Eosinophils (Bld) [#/Vol] N/A [facility] Eosinophils/100 WBC Auto (Bl d)Ordered By: Naima Boyd on 01-09-2024 Eosinophils/100 WBC (Bld) N/A [facility] Eosinophils/100 WBC Manual c nt (Bld)Ordered By: Naima Boyd on 01-09-2024 Eosinophils/100 WBC (Bld) 4 % 1-3 [facility] Erythrocyte distribution wid th Auto (RBC) [Ratio]Ordered By: Naima Boyd on 01-09-2024 Erythrocyte distribution width (RBC) [Ratio] 14.9 % 12.0-14.8 [facility] Fibrin D-dimer [Presence] in Platelet poor plasma by Latex agglutinationOrdered By: Naima Boyd on 01-09-2024 Fibrin D-dimer LA Ql (PPP) 1905 ng/mL 0-243 [facility] Comment on above: The reference range for [...] coagulation studies. Please contact the laboratory at [phone] for redraw instructions. Glucose [Mass/volume] in Ser um or PlasmaOrdered By: Naima Boyd on 01-09-2024 Glucose [Mass/Vol] 95 mg/dL 70-100 [facility] Comment on above: ADA recommended refe rence rangeRandom Glucose Reference Range is dependent on time and content of last meal. Glucose of more than 200 mg/dL in a nonstressed, ambulatory subject supports the diagnosis of Diabetes Mellitus. Hematocrit Auto (Bld) [Volum e fraction]Ordered By: Naima Boyd on 01-09-2024 Hematocrit (Bld) [Volume fraction] 41.9 % 38.8-50.0 [facility] Hemoglobin [Mass/volume] in BloodOrdered By: Naima Boyd on 01-09-2024 Hemoglobin (Bld) [Mass/Vol] 14.1 g/dL 13.0-17.0 [facility] INR in Platelet poor plasma by Coagulation assayOrdered By: Naima Boyd on 01-09-2024 INR Coag (PPP) [Relative time] 1.0 {INR} [facility] Comment on above: INR Therapeutic Rang e [...] RBC Auto (Bld) [#/Vol] 7.6 10*3/uL 4.1-10.5 [facility] Lymphocytes Auto (Bld) [#/Vo l]Ordered By: Naima Boyd on 01-09-2024 Lymphocytes (Bld) [#/Vol] N/A [facility] Lymphocytes/100 WBC Auto (Bl d)Ordered By: Naima Boyd on 01-09-2024 Lymphocytes/100 WBC (Bld) N/A [facility] Lymphocytes/100 WBC Manual c nt (Bld)Ordered By: Naima Boyd on 01-09-2024 Lymphocytes/100 WBC (Bld) 27 % 18-42 [facility] MCH Auto (RBC) [Entitic mass ]Ordered By: Naima Boyd on 01-09-2024 MCH (RBC) [Entitic mass] 32.0 pg 27.5-35.2 [facility] MCHC Auto (RBC) [Mass/Vol]Or dered By: Naima Bullimore on 01-09-2024 MCHC (RBC) [Mass/Vol] 33.6 g/dL 32.5-35.6 [place] MCV Auto (RBC) [Entitic vol] Ordered By: Naima Bullimore on 01-09-2024 MCV (RBC) [Entitic vol] 95.1 fL 83.5-101 [facility] Monocyte distribution width [Entitic volume] in Blood by AutomatedOrdered By: Naima Godwinimore on 01-09-2024 Monocyte distribution width Auto (Bld) [Entitic vol] 25.58 % 0.00-20.00 [facility] Comment on above: For adults in ED, MD W > 20.0 may be associated with a higher risk of sepsis during the first 12 hrs of hospital admission Monocytes Auto (Bld) [#/Vol] Ordered By: Naima Bullimore on 01-09-2024 Monocytes (Bld) [#/Vol] N/A [facility] Monocytes/100 WBC Auto (Bld) Ordered By: Naima Bullimore on 01-09-2024 Monocytes/100 WBC (Bld) N/A [facility] Monocytes/100 WBC Manual cnt (Bld)Ordered By: Naima Bullimore on 01-09-2024 Monocytes/100 WBC (Bld) 7 % 2-11 [facility] Natriuretic peptide B [Mass/ Vol]Ordered By: Naima Bullimore on 01-09-2024 Natriuretic peptide B (Bld) [Mass/Vol] 172.0 pg/mL 5-100 [facility] Neutrophils Auto (Bld) [#/Vo l]Ordered By: Naima Bullimore on 01-09-2024 Neutrophils (Bld) [#/Vol] N/A [facility] Neutrophils/100 WBC Auto (Bl d)Ordered By: Naima Bullimore on 01-09-2024 Neutrophils/100 WBC (Bld) N/A [facility] No Panel InformationOrdered By: Naima Bullimore on 01-09-2024 Estimated GFR (CKD-EPI) > 60.0 mL/Min [facility] Creatinine Clearance (Chem 64.96 [facility] Platelet Comment See comment below F [facility] Comment on above: NO CLOTS, NO CLUMPS, SHORT DRAW LFM Nucleated RBC/100 WBC Manual cnt (Bld) [Ratio]Ordered By: Naima Rutherfordore on 01-09-2024 Nucleated RBC/100 WBC (Bld) [Ratio] 0 /100{WBC} 0-0 [facility] Nucleated erythrocytes [Pres ence] in Blood by Automated countOrdered By: Naimadevora Rutherfordore on 01-09-2024 Nucleated RBC Auto Ql (Bld) N/A [facility] Platelet adequacy [Presence] in Blood by Light microscopyOrdered By: Naima Rutherfordore on 01-09-2024 Platelets LM Ql (Bld) Normal Normal [place] Platelet mean volume Auto (B ld) [Entitic vol]Ordered By: Naimadevora Rutherfordore on 01-09-2024 Platelet mean volume (Bld) [Entitic vol] 8.6 fL 6.6-10.1 [facility] Platelet morphology finding [Identifier] in BloodOrdered By: Naimadevora Rutherfordore on 01-09-2024 Platelet morphology finding Nom (Bld) Normal Normal [facility] Platelets Auto (Bld) [#/Vol] Ordered By: Naimadevora Rutherfordore on 01-09-2024 Platelets (Bld) [#/Vol] 240 10*3/uL 150-450 [facility] Potassium [Moles/volume] in Serum or PlasmaOrdered By: [facility] on 01-09-2024 Potassium [Moles/Vol] 3.9 mmol/L 3.5-5.1 [place] Prothrombin time (PT)Ordered By: [facility] on 01-09-2024 PT Coag (PPP) [Time] 11.9 s 9.0-12.9 [facility] Comment on above: A hematocrit value g reater than 55% may lead to inaccurate results in coagulation testing. Patients having hematocrit values >55% require a special collection tube for coagulation studies. Please contact the laboratory at [phone] for redraw instructions. RBC Auto (Bld) [#/Vol]Ordere d By: Naima Rutherfordore on 01-09-2024 RBC (Bld) [#/Vol] 4.41 10*6/uL 3.90-5.60 [facility] RBC morphologyOrdered By: Sabine Boyd on 01-09-2024 RBC morphology finding Nom (Bld) Normal Normal [facility] Redraw Potassiumon Potassium [Moles/Vol] 3.9 mmol/L Normal 3.5-5.1 [facility] Comment on above: Result Comment: PERF ORMED BY: [place] [address] PATHOLOGIST BIODIESEL TECHNOLOGY MANAGER RADHA BARRON M.D. Performed By: #### R EDRAW K ####[address] Segmented neutrophils/100 WB C Manual cnt (Bld)Ordered By: Naima Boyd on 01-09-2024 Segmented neutrophils/100 WBC (Bld) 62 % 50-70 [facility] Serum or plasma anion gap de terminationOrdered By: Naima Boyd on 01-09-2024 Anion gap [Moles/Vol] TNP [place] Comment on above: Test not performed Sodium [Moles/volume] in Ser um or PlasmaOrdered By: Naima Boyd on 01-09-2024 Sodium [Moles/Vol] 142 mmol/L 136-145 [facility] Troponin I High Sensitivityo n 01-09-2024 Troponin I High Sensitivity 13.1 pg/mL Normal 0.0-20.0 [facility] Comment on above: Result Comment: PERF ORMED BY: [place] [address] PATHOLOGIST BIODIESEL TECHNOLOGY MANAGER RADHA BARRON M.D. Performed By: #### H S TROP #### [facility] [address] [place] [address] Troponin I High Sensitivity 12.5 pg/mL Normal 0.0-20.0 [facility] Comment on above: Result Comment: PERF ORMED BY: [place] [address] PATHOLOGIST BIODIESEL TECHNOLOGY MANAGER RADHA BARRON M.D. Performed By: #### B IT SUPPORT ENGINEER, HS TROP, BMP, CK, DIFF CBC ####[facility] [id number] Troponin I.cardiac [Mass/vol ume] in Serum or Plasma by Detection limit <= 0.01 ng/Ordered By: Naima Boyd on 01-09-2024 Troponin I.cardiac DL <= 0.01 ng/mL [Mass/Vol] 13.1 pg/mL 0.0-20.0 [facility] Urea nitrogen [Mass/volume] in Serum or PlasmaOrdered By: Naima Boyd on 01-09-2024 Urea nitrogen [Mass/Vol] 20 mg/dL 03-08 [facility] WBC Auto (Bld) [#/Vol]Ordere d By: Naima Boyd on 01-09-2024 WBC (Bld) [#/Vol] 8.4 10*3/uL 4.1-10.5 [facility] XR chest 2V*on 01-09-2024 XR chest 2V* [facility] [place] [address] XRay Report Signed Patient: Jeb Riddle MR#: [id number] : 1950 Acct:[id number] Age/Sex: 73 / M ADM Date: 01/09/24 Loc: ER Room: Type: [facility] ER Attending Dr: Copies to: SABA [...] Jeb Collins M.D.01/09/2024 4:11 PM Dictation Location: [facility] Transcribed By: [facility] 01/09/24 1611 Dictated By: Jeb Collins II, MD 01/09/24 1610 Signed By: 01/09/24 1611 Normal [facility] ECG 12 lead ECGon 12-18-2023 ECG 12 lead ECG [facility] [place] [address] Electrocardiograph Report Signed Patient: Jeb Riddle MR#: [id number] : 1950 Acct:[id number] Age/Sex: 73 / M ADM Date: 12/18/23 Loc: ER Room: Type: [facility] ER Attending Dr: Ordering Provider: Marie [...] was found Confirmed by RAMIRO CORTEZ DO ([id number]) on 12/18/2023 4:44:01 PM Referred By: Electronically Signed By:RAMIRO CORTEZ DO Transcribed By: MUS Signed By Ramiro Cortez DO 12/17 1644 Normal [facility] Office Visiton 12-09-2023 Follow-up visit [id number] Jeb Riddle 1950 M Date Provider Department Center 12/09/2023 JESSICA JAMISON Family History Problem Relation Age of Onset Diabetes Mother Coronary artery disease Mother Heart attack Father Diabetes Father Coronary artery disease Father Family Status - Relation Status Age at Mother Father Level of Service:54015 [place] OFFICE/OUTPATIENT ESTABLISHED MOD MDM 30 MIN Reason for Visit and Comments: Follow-up [108576] - 6 months Normal [facility] Office Visiton 06-07-2023 Follow-up visit [id number] Jeb Riddle Myles 1950 M Date Provider Department Center 06/07/2023 SHIV SAAVEDRA MISSY Nicole Family History Problem Relation Age of Onset Diabetes Mother Coronary artery disease Mother Heart attack Father Diabetes Father Coronary artery disease Father Family Status - Relation Status Age at Mother Father Level of Service:45905 [place] OFFICE/OUTPATIENT NEW HIGH MDM 60-74 MINUTES Normal [facility] Office Visiton 05-27-2023 Follow-up visit [id number] Jeb Riddle Myles 1950 M Date Provider Department Center 05/27/2023 JESSICA JAMISON MISSY Nicole Family History Problem Relation Age of Onset Diabetes Mother Coronary artery disease Mother Heart attack Father Diabetes Father Coronary artery disease Father Family Status - Relation Status Age at Mother Father Level of Service:95250 [place] OFFICE/OUTPATIENT ESTABLISHED MOD MDM 30-39 MIN Reason for Visit and Comments: Follow-up [970349] Coronary Artery Disease [187] [facility] HPon 04-06-2023 HP H&P reviewed. The argelia johnson was examined and there are no changes to the H&P. Assessment: 1- NSVT 2- Unstable angina Plan: Proceed with coronary angiography today. [facility] NURSNOTEon 04-06-2023 NURSNOTE RN educated pt on d/ c instructions. RN encouraged pt to voice any questions or concerns. Pt verbalizes no questions or concerns at this time. Pt was wheeled off of unit with all of belongings. Normal [facility] Orders Onlyon 03-24-2023 Orders Only [id number] Jeb Riddle Myles 1950 M Date Provider Department Center 03/24/2023 TAQUERIA MAYORGA MISSY Nicole Family History Problem Relation Age of Onset Diabetes Mother Coronary artery disease Mother Heart attack Father Diabetes Father Coronary artery disease Father Family Status - Relation Status Age at Mother Father [facility] 29on 03-21-2023 29 Addended by: Analilia AVALOS on: 03/28/2023 08:21 AM Modules accepted: Orders [facility] Office Visiton 03-21-2023 Follow-up visit [id number] Jeb Riddle Myles 1950 M Date Provider Department Center 03/21/2023 MATTIE LAY MISSY Lori Nicole Family History Problem Relation Age of Onset Diabetes Mother Coronary artery disease Mother Heart attack Father Diabetes Father Coronary artery disease Father Family Status - Relation Status Age at Mother Father Level of Service:08541 [place] OFFICE/OUTPATIENT ESTABLISHED MOD MDM 30-39 MIN Normal [facility] Orders Onlyon 03-15-2023 Orders Only [id number] Jeb Riddle Myles 1950 M Date Provider Department Center 03/15/[address] No family history on file Normal [facility] Activated partial thrombopla stin time (aPTT) in platelet poor plasma by coagulation aOrdered By: Ramiro Cortez on 03-03-2023 aPTT Coag (PPP) [Time] 29.7 s 25.1-36.[address] [facility] B-Type Natriuretic Peptideon 03-03-2023 Natriuretic peptide B (Bld) [Mass/Vol] 52.0 pg/mL Normal 5-100 [facility] Comment on above: Result Comment: PERF ORMED BY: [facility] [address] [place] [address] PATHOLOGIST BIODIESEL TECHNOLOGY MANAGER RADHA BARRON M.D. Performed By: #### C BC, CK, PT, PTT, BMP, HS TROP, BNP ####[place] [address] [place] [id number] [facility] Basic Metabolic Panelon 02-13 Anion gap [Moles/Vol] 10.6 mmol/L Normal 6.0-15.0 [facility] Comment on above: Performed By: #### C BC, CK, PT, PTT, BMP, HS TROP, BNP ####[place] [address] [place] [id number] [facility] Calcium [Mass/Vol] 8.6 mg/dL Normal 8.6-10.3 [facility] Comment on above: Performed By: #### C BC, CK, PT, PTT, BMP, HS TROP, BNP ####[facility] Chloride [Moles/Vol] 108 mmol/L High 98-107 [facility] Comment on above: Performed By: #### C BC, CK, PT, PTT, BMP, HS TROP, BNP ####[address] CO2 [Moles/Vol] 24.6 mmol/L Normal 21.0-31.0 [facility] Comment on above: Performed By: #### C BC, CK, PT, PTT, BMP, HS TROP, BNP ####[address] Creatinine [Mass/Vol] 1.19 mg/dL Normal 0.70-1.30 [facility] Comment on above: Performed By: #### C BC, CK, PT, PTT, BMP, HS TROP, BNP ####[address] Creatinine Clr Calc Pharmacy 55.29 Normal [facility] Comment on above: Result Comment: PERF ORMED BY: [facility] [address] [facility] [place] [address] PATHOLOGIST BIODIESEL TECHNOLOGY MANAGER RADHA BARRON M.D. Performed By: #### C BC, CK, PT, PTT, BMP, HS TROP, BNP ####[address] GFR/1.73 sq M.predicted MDRD (S/P/Bld) [Vol rate/Area] mL/min/{1.73_m2} Normal [facility] Comment on above: Performed By: #### C BC, CK, PT, PTT, BMP, HS TROP, BNP ####[address] Glucose [Mass/Vol] 93 mg/dL Normal 70-100 [facility] Comment on above: Result Comment: [place] Glucose Reference Range is dependent on time and content of last meal. Glucose of more than 200 mg/dL in a nonstressed, ambulatory subject supports the diagnosis of Diabetes Mellitus. ADA recommended reference range Performed By: #### C BC, CK, PT, PTT, BMP, HS TROP, BNP ####[place] [address] Potassium [Moles/Vol] 4.2 mmol/L Normal 3.5-5.1 [facility] Comment on above: Performed By: #### C BC, CK, PT, PTT, BMP, HS TROP, BNP ####[place] [address] Sodium [Moles/Vol] 139 mmol/L Normal 136-145 [facility] Comment on above: Performed By: #### C BC, CK, PT, PTT, BMP, HS TROP, BNP ####[place] [address] Urea nitrogen [Mass/Vol] 17 mg/dL Normal 7-25 [facility] Comment on above: Performed By: #### C BC, CK, PT, PTT, BMP, HS TROP, BNP ####[address] Basophils Auto (Bld) [#/Vol] Ordered By: Ramiro Cortez on 03-03-2023 Basophils (Bld) [#/Vol] 0.0 10*3/uL 0.0-0.2 [facility] Basophils/100 WBC Auto (Bld) Ordered By: Ramiro Cortez on 03-03-2023 Basophils/100 WBC (Bld) 0.4 % . [facility] Calcium [Mass/volume] in Ser um or PlasmaOrdered By: Ramiro Cortez on 03-03-2023 Calcium [Mass/Vol] 8.6 mg/dL 8.6-10.3 [facility] Carbon dioxide, total [Moles /volume] in Serum or PlasmaOrdered By: Ramiro Cortez on 03-03-2023 CO2 [Moles/Vol] 24.6 mmol/L 21.0-31.0 [facility] Chloride [Moles/volume] in S pooja or PlasmaOrdered By: Ramiro Cortez on 03-03-2023 Chloride [Moles/Vol] 108 mmol/L 98-107 [facility] Complete Blood Count Auto Di ffon 03-03-2023 Basophils (Bld) [#/Vol] 0.0 10*3/uL Normal 0.0-0.2 [facility] Comment on above: Result Comment: PERF ORMED BY: [place] [address] PATHOLOGIST BIODIESEL TECHNOLOGY MANAGER RADHA BARRON M.D. Performed By: #### C BC, CK, PT, PTT, BMP, HS TROP, BNP #### [address] Basophils/100 WBC (Bld) 0.4 % Normal . [facility] Comment on above: Performed By: #### C BC, CK, PT, PTT, BMP, HS TROP, BNP #### [address] Eosinophils (Bld) [#/Vol] 0.2 10*3/uL Normal 0.0-0.45 [facility] Comment on above: Performed By: #### C BC, CK, PT, PTT, BMP, HS TROP, BNP #### [address] Eosinophils/100 WBC (Bld) 2.4 % Normal . [facility] Comment on above: Performed By: #### C BC, CK, PT, PTT, BMP, HS TROP, BNP #### [address] Erythrocyte distribution width (RBC) [Ratio] 13.0 % Normal 12.0-14.8 [facility] Comment on above: Performed By: #### C BC, CK, PT, PTT, BMP, HS TROP, BNP #### [address] Hematocrit (Bld) [Volume fraction] 38.3 % Low 38.8-50.0 [facility] Comment on above: Performed By: #### C BC, CK, PT, PTT, BMP, HS TROP, BNP #### [address] Hemoglobin (Bld) [Mass/Vol] 12.9 g/dL Low 13.0-17.0 [facility] Comment on above: Performed By: #### C BC, CK, PT, PTT, BMP, HS TROP, BNP #### [address] Lymphocytes (Bld) [#/Vol] 2.6 10*3/uL Normal 1.00-4.8 [facility] Comment on above: Performed By: #### C BC, CK, PT, PTT, BMP, HS TROP, BNP #### [address] Lymphocytes/100 WBC (Bld) 28.3 % Normal . [facility] Comment on above: Performed By: #### C BC, CK, PT, PTT, BMP, HS TROP, BNP #### [address] MCH (RBC) [Entitic mass] 30.8 pg Normal 27.5-35.2 [facility] Comment on above: Performed By: #### C BC, CK, PT, PTT, BMP, HS TROP, BNP #### [address] MCV (RBC) [Entitic vol] 91.9 fL Normal 83.5-101 [facility] Comment on above: Performed By: #### C BC, CK, PT, PTT, BMP, HS TROP, BNP #### [address] Mean Corpuscular HGB Conc 33.6 g/dL Normal 32.5-35.6 [facility] Comment on above: Performed By: #### C BC, CK, PT, PTT, BMP, HS TROP, BNP #### [address] Monocytes (Bld) [#/Vol] 0.6 10*3/uL Normal 0.0-0.8 [facility] Comment on above: Performed By: #### C BC, CK, PT, PTT, BMP, HS TROP, BNP #### [address] Monocytes/100 WBC (Bld) 24.67 % High 0.00-20.00 [facility] Comment on above: Result Comment: For adults in ED, MDW > 20.0 may be associated with a higher risk of sepsis during the first 12 hrs of hospital admission Performed By: #### C BC, CK, PT, PTT, BMP, HS TROP, BNP #### [address] Monocytes/100 WBC (Bld) 6.5 % Normal . [facility] Comment on above: Performed By: #### C BC, CK, PT, PTT, BMP, HS TROP, BNP #### [address] Neutrophils (Bld) [#/Vol] 5.7 10*3/uL Normal 1.8-7.7 [facility] Comment on above: Performed By: #### C BC, CK, PT, PTT, BMP, HS TROP, BNP #### [address] Neutrophils/100 WBC (Bld) 62.4 % Normal . [facility] Comment on above: Performed By: #### C BC, CK, PT, PTT, BMP, HS TROP, BNP #### [address] NRBC% 0.1 /100{WBC} Normal 0-0.5 [facility] Comment on above: Performed By: #### C BC, CK, PT, PTT, BMP, HS TROP, BNP #### [address] Platelet mean volume (Bld) [Entitic vol] 8.2 fL Normal 6.6-10.1 [facility] Comment on above: Performed By: #### C BC, CK, PT, PTT, BMP, HS TROP, BNP #### [address] Platelets (Bld) [#/Vol] 234 10*3/uL Normal 150-450 [facility] Comment on above: Performed By: #### C BC, CK, PT, PTT, BMP, HS TROP, BNP #### [facility] [address] RBC (Bld) [#/Vol] 4.17 10*6/uL Normal 3.90-5.60 [facility] Comment on above: Performed By: #### C BC, CK, PT, PTT, BMP, HS TROP, BNP #### [facility] [address] WBC (Bld) [#/Vol] 9.2 10*3/uL Normal 4.1-10.5 [facility] Comment on above: Performed By: #### C BC, CK, PT, PTT, BMP, HS TROP, BNP #### [facility] [address] Creatine Kinaseon 03-03-2023 CK [Catalytic activity/Vol] 125 U/L Normal 30- [facility] Comment on above: Performed By: #### C BC, CK, PT, PTT, BMP, HS TROP, BNP ####[facility] [place] [address] Creatine kinase [Enzymatic a ctivity/volume] in Serum or PlasmaOrdered By: Ramiro Cortez on 03-03-2023 CK [Catalytic activity/Vol] 125 U/L - [facility] Creatinine [Mass/volume] in Serum or PlasmaOrdered By: Ramiro Cortez on 03-03-2023 Creatinine [Mass/Vol] 1.19 mg/dL 0.70-1.30 [place] ECG 12 lead ECGon 03-03-2023 ECG 12 lead ECG [facility] [place] [address] Electrocardiograph Report Signed Patient: Jeb Riddle MR#: [id number] : 1950 Acct:[id number] Age/Sex: 72 / M ADM Date: 03/03/23 Loc: ER Room: Type: [facility] ER Attending Dr: Ordering Provider: Ramiro [...] ECGs available Confirmed by RAMIRO CORTEZ DO ([id number]) on 03/03/2023 8:14:27 PM Referred By: Electronically Signed By:RAMIRO CORTEZ DO Transcribed By: MUS Signed By Ramiro Cortez DO 03/03 Normal [facility] Eosinophils Auto (Bld) [#/Vo l]Ordered By: Ramiro Cortez on 03-03-2023 Eosinophils (Bld) [#/Vol] 0.2 10*3/uL 0.0-0.45 [facility] Eosinophils/100 WBC Auto (Bl d)Ordered By: Ramiro Cortez on 03-03-2023 Eosinophils/100 WBC (Bld) 2.4 % . [facility] Erythrocyte distribution wid th Auto (RBC) [Ratio]Ordered By: Ramiro Cortez on 03-03-2023 Erythrocyte distribution width (RBC) [Ratio] 13.0 % 12.0-14.8 [facility] Glucose [Mass/volume] in Ser um or PlasmaOrdered By: Ramiro Cortez on 03-03-2023 Glucose [Mass/Vol] 93 mg/dL 70-100 [facility] Comment on above: ADA recommended refe rence rangeRandom Glucose Reference Range is dependent on time and content of last meal. Glucose of more than 200 mg/dL in a nonstressed, ambulatory subject supports the diagnosis of Diabetes Mellitus. Hematocrit Auto (Bld) [Volum e fraction]Ordered By: Ramiro Cortez on 03-03-2023 Hematocrit (Bld) [Volume fraction] 38.3 % 38.8-50.0 [facility] Hemoglobin [Mass/volume] in BloodOrdered By: Ramiro Cortez on 03-03-2023 Hemoglobin (Bld) [Mass/Vol] 12.9 g/dL 13.0-17.0 [facility] Laboratory - CoagulationOrde red By: Ramiro Cortez on 03-03-2023 PT Coag (PPP) [Time] 12.3 s 9.0-12.9 [facility] Leukocytes [#/volume] correc ava for nucleated erythrocytes in Blood by Automated counOrdered By: Ramiro Cortez on 03-03-2023 WBC corrected for nucl RBC Auto (Bld) [#/Vol] 9.2 10*3/uL 4.1-10.5 [facility] Lymphocytes Auto (Bld) [#/Vo l]Ordered By: Ramiro Cortez on 03-03-2023 Lymphocytes (Bld) [#/Vol] 2.6 10*3/uL 1.00-4.8 [facility] Lymphocytes/100 WBC Auto (Bl d)Ordered By: Ramiro Cortez on 03-03-2023 Lymphocytes/100 WBC (Bld) 28.3 % . [facility] MCH Auto (RBC) [Entitic mass ]Ordered By: Ramiro Cortez on 03-03-2023 MCH (RBC) [Entitic mass] 30.8 pg 27.5-35.2 [facility] MCHC Auto (RBC) [Mass/Vol]Or dered By: Ramiro Cortez on 03-03-2023 MCHC (RBC) [Mass/Vol] 33.6 g/dL 32.5-35.6 [place] MCV Auto (RBC) [Entitic vol] Ordered By: Ramiro Cortez on 03-03-2023 MCV (RBC) [Entitic vol] 91.9 fL 83.5-101 [facility] Monocyte distribution width [Entitic volume] in Blood by AutomatedOrdered By: Ramiro Cortez on 03-03-2023 Monocyte distribution width Auto (Bld) [Entitic vol] 24.67 % 0.00-20.00 [facility] Comment on above: For adults in ED, MD W > 20.0 may be associated with a higher risk of sepsis during the first 12 hrs of hospital admission Monocytes Auto (Bld) [#/Vol] Ordered By: Ramiro Cortez on 03-03-2023 Monocytes (Bld) [#/Vol] 0.6 10*3/uL 0.0-0.8 [facility] Monocytes/100 WBC Auto (Bld) Ordered By: Ramiro Cortez on 03-03-2023 Monocytes/100 WBC (Bld) 6.5 % . [facility] Natriuretic peptide B [Mass/ Vol]Ordered By: Ramiro Cortez on 03-03-2023 Natriuretic peptide B (Bld) [Mass/Vol] 52.0 pg/mL 5-100 [facility] Neutrophils Auto (Bld) [#/Vo l]Ordered By: Ramiro Cortez on 03-03-2023 Neutrophils (Bld) [#/Vol] 5.7 10*3/uL 1.8-7.7 [facility] Neutrophils/100 WBC Auto (Bl d)Ordered By: Ramiro Cortez on 03-03-2023 Neutrophils/100 WBC (Bld) 62.4 % . [facility] No Panel InformationOrdered By: Ramiro Cortez on 03-03-2023 Estimated GFR (CKD-EPI) > 60.0 mL/Min [facility] Creatinine Clearance (Chem 55.29 [facility] Nucleated erythrocytes [Pres ence] in Blood by Automated countOrdered By: Ramiro Cortez on 03-03-2023 Nucleated RBC Auto Ql (Bld) 0.1 /100{WBC} 0-0.5 [facility] Partial Thromboplastin Timeo n 03-03-2023 aPTT Coag (Bld) [Time] 29.7 s Normal 25.1-36.5 [facility] Comment on above: Result Comment: PERF ORMED BY: [place] [address] PATHOLOGIST BIODIESEL TECHNOLOGY MANAGER RADHA BARRON M.D. Performed By: #### C BC, CK, PT, PTT, BMP, HS TROP, BNP #### [facility] [address] [place] [address] Platelet mean volume Auto (B ld) [Entitic vol]Ordered By: Ramiro Cortez on 03-03-2023 Platelet mean volume (Bld) [Entitic vol] 8.2 fL 6.6-10.1 [facility] Platelet poor plasma interna tional normalized ratio (INR) by coagulation assay (relatOrdered By: Ramiro Cortez on 03-03-2023 INR Coag (PPP) [Relative time] 1.1 {INR} [facility] Comment on above: INR Therapeutic Rang e [...] 03-03-2023 Platelets (Bld) [#/Vol] 234 10*3/uL 150-450 [facility] Potassium [Moles/volume] in Serum or PlasmaOrdered By: Ramiro Cortez on 03-03-2023 Potassium [Moles/Vol] 4.2 mmol/L 3.5-5.1 [place] Prothrombin Time INRon 03-03 INR Coag (PPP) [Relative time] 1.1 {INR} Normal [facility] Comment on above: Result Comment: [...] BMP, HS TROP, BNP #### [facility] [address] PT Coag (PPP) [Time] 12.3 s Normal 9.0-12.9 [facility] Comment on above: Performed By: #### C BC, CK, PT, PTT, BMP, HS TROP, BNP #### [facility] [address] RBC Auto (Bld) [#/Vol]Ordere d By: Ramiro Cortez on 03-03-2023 RBC (Bld) [#/Vol] 4.17 10*6/uL 3.90-5.60 [facility] Serum or plasma anion gap de terminationOrdered By: Ramiro Cortez on 03-03-2023 Anion gap [Moles/Vol] 10.6 mmol/L 6.0-15.[address] [facility] Sodium [Moles/volume] in Ser um or PlasmaOrdered By: Ramiro Cortez on 03-03-2023 Sodium [Moles/Vol] 139 mmol/L 136-145 [facility] Troponin I High Sensitivityo n 03-03-2023 Troponin I High Sensitivity 7.6 pg/mL Normal 0.0-20.0 [facility] Comment on above: Result Comment: PERF ORMED BY: [facility] [address] [place] [address] PATHOLOGIST BIODIESEL TECHNOLOGY MANAGER RADHA BARRON M.D. Performed By: #### C BC, CK, PT, PTT, BMP, HS TROP, BNP ####[facility] Pfh[address] Troponin I.cardiac [Mass/vol ume] in Serum or Plasma by Detection limit <= 0.01 ng/Ordered By: Ramiro Cortez on 03-03-2023 Troponin I.cardiac DL <= 0.01 ng/mL [Mass/Vol] 7.6 pg/mL 0.0-20.0 [facility] Urea nitrogen [Mass/volume] in Serum or PlasmaOrdered By: Ramiro Cortez on 03-03-2023 Urea nitrogen [Mass/Vol] 17 mg/dL 7-25 [facility] WBC Auto (Bld) [#/Vol]Ordere d By: Ramiro Cortez on 03-03-2023 WBC (Bld) [#/Vol] 9.2 10*3/uL 4.1-10.5 [facility] XR chest 2V*on 03-03-2023 XR chest 2V* [facility] [place] [address] [place] [address] XRay Report Signed Patient: Jeb Riddle MR#: [id number] : 1950 Acct:[id number] Age/Sex: 72 / M ADM Date: 03/03/23 Loc: ER Room: Type: [facility] ER Attending Dr: Copies to: Ramiro [...] Ivonne Zavala M.D.03/03/2023 12:46 PM Dictation Location: [place] [address] Transcribed By: [facility] 03/03/23 1246 Dictated By: Ivonne Zavala MD 03/03/23 1245 Signed By: 03/03/23 1246 Normal [facility] CBC AUTO DIFFon 01-11-2023 BASO # 0.0 103/ul Normal 0.0-0.1 [facility] Comment on above: Performed By: #### C BC #### [facility] [address] [place] [address] Dr. Andrea Garcia Basophils/100 WBC (Bld) 0.0 % Critically low 0.2-2.0 [facility] Comment on above: Performed By: #### C BC #### [facility] [address] [place] [address] Dr. Andrea Garcia EO # 0.0 103/ul Normal 0.0-0.7 [facility] Comment on above: Performed By: #### C BC #### [facility] [address] [place] [address] Dr. Andrea Garcia Eosinophils/100 WBC (Bld) 0.0 % Critically low 0.9-7.0 [facility] Comment on above: Performed By: #### C BC #### [facility] [address] [place] [address] Dr. Andrea Garcia Erythrocyte distribution width (RBC) [Ratio] 12.8 % Normal 11.0-15.0 [facility] Comment on above: Performed By: #### C BC #### [facility] [address] [place] [address] Dr. Andrea Garcia Hematocrit (Bld) [Volume fraction] 36.2 % Critically low 42.0-54.0 [facility] [facility] [place] Comment on above: Performed By: #### C BC #### [facility] [address] [place] [address] Dr. Andrea Garcia Hemoglobin (Bld) [Mass/Vol] 12.8 g/dL Critically low 14.0-18.0 [facility] [place] Comment on above: Performed By: #### C BC #### [facility] [address] [place] [address] Dr. Andrea Garcia IG # 0.03 10e3/ul Normal 0.00-0.03 [facility] [place] Comment on above: Performed By: #### C BC #### [facility] [address] [place] [address] Dr. Andrea Garcia IG % 0.4 % Normal 0.0-0.5 [facility] [place] Comment on above: Performed By: #### C BC #### [facility] [address] [place] [address] Dr. Andrea Garcia LYMPH # 1.1 103/ul Critically low 1.2-3.8 [facility] [place] Comment on above: Performed By: #### C BC #### [facility] [address] [place] [address] Dr. Andrea Garcia Lymphocytes/100 WBC (Bld) 15.3 % Critically low 20.5-60.0 [facility] [place] Comment on above: Performed By: #### C BC #### [facility] [address] [place] [address] Dr. Andrea Garcia MANUAL DIFF REQ NO Normal [facility] Comment on above: Performed By: #### C BC #### [facility] [address] [place] [address] Dr. Andrea Garcia MCH (RBC) [Entitic mass] 31.3 pg Normal 25.9-34.0 [facility] [place] Comment on above: Performed By: #### C BC #### [facility] [address] [place] [address] Dr. Andrea Garcia MCHC (RBC) [Mass/Vol] 35.4 g/dL Critically high 29.9-35.2 [facility] [place] Comment on above: Performed By: #### C BC #### [facility] [address] [place] [address] Dr. Andrea Garcia MCV (RBC) [Entitic vol] 88.5 fL Normal 80.0-94.0 [facility] [place] Comment on above: Performed By: #### C BC #### [facility] [address] [place] [address] Dr. Andrea Garcia MONO # 0.1 103/ul Critically low 0.3-0.8 [facility] [place] Comment on above: Performed By: #### C BC #### [facility] [address] [place] [address] Dr. Andrea Garcia Monocytes/100 WBC (Bld) 0.7 % Critically low 1.7-12.0 [facility] [place] Comment on above: Performed By: #### C BC #### [facility] [address] [place] [address] Dr. Andrea Garcia NEUT # 6.0 103/ul Normal 1.4-6.5 [facility] [place] Comment on above: Performed By: #### C BC #### [facility] [address] [place] [address] Dr. Andrea Garcia Neutrophils/100 WBC (Bld) 83.6 % Critically high 43.0-75.0 [facility] [place] Comment on above: Performed By: #### C BC #### [facility] [address] [place] [address] Dr. Andrea Garcia Platelet mean volume (Bld) [Entitic vol] 10.1 fL Normal 9.5-13.5 [facility] [place] Comment on above: Performed By: #### C BC #### [facility] [address] [place] [address] Dr. Andrea Garcia PLT 216 103/ul Normal 150-450 [facility] Comment on above: Performed By: #### C BC #### [facility] [address] [place] [address] Dr. Andrea Garcia RBC 4.09 106/ul Critically low 4.70-6.10 [facility] [place] Comment on above: Performed By: #### C BC #### [facility] [address] [place] [address] Dr. Andrea Garcia WBC 7.2 103/ul Normal 4.0-11.0 [facility] [place] Comment on above: Performed By: #### C BC #### [facility] [address] [place] [address] Dr. Andrea Garcia PROF 14(COMP METB)on 023 Albumin [Mass/Vol] 2.8 g/dL Critically low 3.4-5.0 [facility] Comment on above: Performed By: #### C MP #### [facility] [address] [place] [address] Dr. Andrea Garcia Albumin/Globulin [Mass ratio] 0.8 {ratio} Normal [facility] [place] Comment on above: Performed By: #### C MP #### [facility] [address] [place] [address] Dr. Andrea Garcia ALP [Catalytic activity/Vol] 64 U/L Normal 46-116 [facility] [place] Comment on above: Performed By: #### C MP #### [facility] [address] [place] [address] Dr. Andrea Garcia ALT [Catalytic activity/Vol] 27 U/L Normal 16-63 [facility] [place] Comment on above: Performed By: #### C MP #### [facility] [address] [place] [address] Dr. Andrea Garcia Anion gap [Moles/Vol] 12.9 mmol/L Normal [facility] Comment on above: Performed By: #### C MP #### [facility] [address] [place] [address] Dr. Andrea Garcia AST [Catalytic activity/Vol] 16 U/L Normal 15-37 [facility] [place] Comment on above: Performed By: #### C MP #### [facility] [address] [place] [address] Dr. Andrea Garcia Bilirubin [Mass/Vol] 0.4 mg/dL Normal 0.2-1.0 [facility] [place] Comment on above: Performed By: #### C MP #### [facility] [address] [address] [address] Andrea Garcia Calcium [Mass/Vol] 8.2 mg/dL Critically low 8.5-10.1 [facility] Comment on above: Performed By: #### C MP #### [facility] [address] [address] [address] Andrea Garcia Chloride [Moles/Vol] 107 mmol/L Normal 98-107 [facility] [place] Comment on above: Performed By: #### C MP #### [facility] [address] [address] [address] Andrea Garcia CO2 [Moles/Vol] 24.2 mmol/L Normal 21.0-32.0 [facility] [place] Comment on above: Performed By: #### C MP #### [facility] [address] [place] [address] Dr. Andrea Garcia Creatinine [Mass/Vol] 1.07 mg/dL Normal 0.70-1.30 [facility] [place] Comment on above: Performed By: #### C MP #### [facility] [address] [place] [address] Dr. Andrea Garcia EGFR-AF CONGOLESE >60 Normal >=60 [facility] [place] Comment on above: Performed By: #### C MP #### [facility] [address] [place] [address] Dr. Andrea Garcia EGFR-NON AF CONGOLESE >60 Normal >=60 [facility] [place] Comment on above: Performed By: #### C MP #### [facility] [address] [place] [address] Dr. Andrea Garcia Globulin (S) [Mass/Vol] 3.5 g/dL Normal [facility] [place] Comment on above: Performed By: #### C MP #### [facility] [address] [place] [address] Dr. Andrea Garcia Glucose [Mass/Vol] 164 mg/dL Critically high 74-106 T [facility] Comment on above: Performed By: #### C MP #### [facility] [address] [address] [address] Andrea Garcia Potassium [Moles/Vol] 4.1 mmol/L Normal 3.5-5.1 [facility] [place] Comment on above: Performed By: #### C MP #### [facility] [address] [address] [address] Andrea Garcia Protein [Mass/Vol] 6.3 g/dL Critically low 6.4-8.2 [facility] Comment on above: Performed By: #### C MP #### [facility] [address] [address] [address] Andrea Garcia Sodium [Moles/Vol] 140 mmol/L Normal 136-145 [facility] [place] Comment on above: Performed By: #### C MP #### [facility] [address] [address] [address] Andrea Garcia Urea nitrogen [Mass/Vol] 16.0 mg/dL Normal 7.0-18.0 [facility] [place] Comment on above: Performed By: #### C MP #### [facility] [address] [address] [address] Andrea Garcia Urea nitrogen/Creatinine [Mass ratio] 15.0 mg/mg Normal [facility] [place] Comment on above: Performed By: #### C MP #### [facility] [address] [place] [address] Dr. Andrea Garcia XR KUB 1 VIEWon [...] ROBERT DAVENPORT Date: 2023-01-11 06:56 Normal [facility] AMYLASEon 01-10-2023 Amylase [Catalytic activity/Vol] 56 U/L Normal 25-115 [facility] Comment on above: Performed By: #### C MADM, CMP, DAMIEN, LIPA ####[facility] [address] [place], [place] [address]CjDr. Andrea Garcia CARDIAC JEB 3-6on 3 CK [Catalytic activity/Vol] 92 U/L Normal 39-308 [facility] [place] Comment on above: Performed By: #### C MREP #### [facility] [address] [address] [address] Andrea RUBALCAVA.MB [Mass/Vol] 1.66 ng/mL Normal <=3.60 [facility] [place] Comment on above: Performed By: #### C MREP #### [facility] [address] [address] [address] Andrea Garcia HSTROP 12.8 pg/mL Normal 4.0-76.1 [facility] [place] Comment on above: Result Comment: CUT- OFF POINTS HAVE BEEN ESTABLISHED BASED ON THE FOURTH UNIVERSAL DEFINITIONS OF MYOCARDIAL INFARCTION. THE UPPER REFERENCE LIMIT (URL) OF TROPONIN, DEFINED THE 99TH PERCENTILE OF cTnI DISTRIBUTION IN A REFERENCE POPULATION, HAS BEEN CONFIRMED THE DECISION THRESHOLD FOR OK DIAGNOSIS. Performed By: #### C MREP #### [facility] [address] [address] [address] Andrea Garcia CK [Catalytic activity/Vol] 72 U/L Normal 39-308 [facility] [place] Comment on above: Performed By: #### C MREP #### [facility] [address] [address] [address] Andrea RUBALCAVA.MB [Mass/Vol] 1.89 ng/mL Normal <=3.60 [facility] Comment on above: Performed By: #### C MREP #### [facility] [address] [address] [address] Andrea Garcia HSTROP 13.5 pg/mL Normal 4.0-76.1 [facility] Comment on above: Result Comment: CUT- OFF POINTS HAVE BEEN ESTABLISHED BASED ON THE FOURTH UNIVERSAL DEFINITIONS OF MYOCARDIAL INFARCTION. THE UPPER REFERENCE LIMIT (URL) OF TROPONIN, DEFINED THE 99TH PERCENTILE OF cTnI DISTRIBUTION IN A REFERENCE POPULATION, HAS BEEN CONFIRMED THE DECISION THRESHOLD FOR OK DIAGNOSIS. Performed By: #### C MREP #### [facility] [address] [place], [place] [address] Dr. Andrea Garcia CARDIAC JEB ADMITon 023 CK [Catalytic activity/Vol] 85 U/L Normal 39-308 [facility] Comment on above: Performed By: #### C MADM, CMP, DAMIEN, LIPA ####[facility] [address] [place], [place] [address]NgWilder Garcia CK.MB [Mass/Vol] 1.80 ng/mL Normal <=3.60 [facility] Comment on above: Performed By: #### C MADM, CMP, DAMIEN, LIPA ####[facility] [address] [place] [address]DrWilder Garcia HSTROP 15.7 pg/mL Normal 4.0-76.1 [facility] Comment on above: Result Comment: CUT- OFF POINTS HAVE BEEN ESTABLISHED BASED ON THE FOURTH UNIVERSAL DEFINITIONS OF MYOCARDIAL INFARCTION. THE UPPER REFERENCE LIMIT (URL) OF TROPONIN, DEFINED THE 99TH PERCENTILE OF cTnI DISTRIBUTION IN A REFERENCE POPULATION, HAS BEEN CONFIRMED THE DECISION THRESHOLD FOR OK DIAGNOSIS. Performed By: #### C MADM, CMP, DAMIEN, LIPA ####[facility] [address] [place] [address]DrWilder Garcia MIQUEL 61 ng/mL Normal 16-96 [facility] Comment on above: Performed By: #### C MADM, CMP, DAMIEN, LIPA ####[facility] [address] [place] [id number] Garcia CBC AUTO DIFFon 01-10-2023 BASO # 0.0 103/ul Normal 0.0-0.1 [facility] Comment on above: Performed By: #### C BC ####[facility] [address] [place] [id number] Garcia Basophils/100 WBC (Bld) 0.5 % Normal 0.2-2.0 [facility] Comment on above: Performed By: #### C BC ####[facility] [address] [place] [address]DrWilder Garcia EO # 0.4 103/ul Normal 0.0-0.7 [facility] Comment on above: Performed By: #### C BC ####[facility] [address] [place] [address]Dr. Andrea Garcia Eosinophils/100 WBC (Bld) 5.9 % Normal 0.9-7.0 [facility] Comment on above: Performed By: #### C BC ####[facility] [address] [place], [place] [address]Dr. Andrea Garcia Erythrocyte distribution width (RBC) [Ratio] 13.0 % Normal 11.0-15.0 [facility] Comment on above: Performed By: #### C BC ####[facility] [address] [place], [place] [address]Dr. Andrea Garcia Hematocrit (Bld) [Volume fraction] 40.0 % Critically low 42.0-54.0 [facility] [place] Comment on above: Performed By: #### C BC ####[facility] [address] [place], [place] [address]Dr. Andrea Garcia Hemoglobin (Bld) [Mass/Vol] 13.4 g/dL Critically low 14.0-18.0 [facility] Comment on above: Performed By: #### C BC ####[facility] [address] [place], [place] [address]Dr. Andrea Garcia IG # 0.01 10e3/ul Normal 0.00-0.03 [facility] Comment on above: Performed By: #### C BC ####[facility] [address] [place], [place] [address]Dr. Andrea Garcia IG % 0.2 % Normal 0.0-0.5 [facility] Comment on above: Performed By: #### C BC ####[facility] [address] [place], [place] [address]Dr. Andrea Garcia LYMPH # 2.2 103/ul Normal 1.2-3.8 [facility] Comment on above: Performed By: #### C BC ####[facility] [address] [place], [place] [address]Dr. Andrea Garcia Lymphocytes/100 WBC (Bld) 33.2 % Normal 20.5-60.0 [facility] [place] Comment on above: Performed By: #### C BC ####[facility] [address] [place] [address]Dr. Andrea Garcia MANUAL DIFF REQ NO Normal [facility] Comment on above: Performed By: #### C BC ####[facility] [address] [place] [address]Dr. Andrea Garcia MCH (RBC) [Entitic mass] 30.5 pg Normal 25.9-34.0 [facility] [place] Comment on above: Performed By: #### C BC ####[facility] [address] [place], [place] [address]Dr. Andrea Garcia MCHC (RBC) [Mass/Vol] 33.5 g/dL Normal 29.9-35.2 [facility] Comment on above: Performed By: #### C BC ####[facility] [address] [place], [place] [address]Dr. Andrea Garcia MCV (RBC) [Entitic vol] 90.9 fL Normal 80.0-94.0 [facility] [place] Comment on above: Performed By: #### C BC ####[facility] [address] [place], [place] [address]Dr. Andrea Garcia MONO # 0.4 103/ul Normal 0.3-0.8 [facility] Comment on above: Performed By: #### C BC ####[facility] [address] [place], [place] [address]Dr. Andrea Garcia Monocytes/100 WBC (Bld) 6.0 % Normal 1.7-12.0 [facility] Comment on above: Performed By: #### C BC ####[facility] [address] [place], [place] [address]DrWilder Garcia NEUT # 3.5 103/ul Normal 1.4-6.5 [facility] Comment on above: Performed By: #### C BC ####[facility] [address] [place], [place] [address]DrWilder Garcia Neutrophils/100 WBC (Bld) 54.2 % Normal 43.0-75.0 [facility] Comment on above: Performed By: #### C BC ####[facility] [address] [place], [place] [address]Cf. Andrea Garcia Platelet mean volume (Bld) [Entitic vol] 9.7 fL Normal 9.5-13.5 [facility] [place] Comment on above: Performed By: #### C BC ####[facility] [address] [place], [place] [address]Pz. Andrea Garcia PLT 225 103/ul Normal 150-450 [facility] Comment on above: Performed By: #### C BC ####[facility] [address] [place], [place] [address]Ob. Andrea Garcia RBC 4.40 106/ul Critically low 4.70-6.10 [facility] [place] Comment on above: Performed By: #### C BC ####[facility] [address] [place], [place] [address]Ql. Andrea Garcia WBC 6.5 103/ul Normal 4.0-11.0 [facility] Comment on above: Performed By: #### C BC ####[facility] [address] [place], [place] [address]Q[address] ABD/PELV W CONon 01-11-20 [...] ADITYA OATES Date: 2023-01-10 07:41 Normal [facility] CULTURE BLOODon 01-10-2023 Microscopic examination of blood, culture Culture Observations: NO GROWTH AT 36-48 HOURS. FINAL TO FOLLOW. Normal [facility] [place] Comment on above: Performed By: #### B LDCX2 ####[facility] [address] [place] [address]Dr. Andrea Garcia Microscopic examination of blood, culture Culture Observations: NO GROWTH AT 36-48 HOURS. FINAL TO FOLLOW. Normal [facility] [place] Comment on above: Performed By: #### B LDCX1 ####[facility] [address] [place] [address]Dr. Andrea Garcia ER URINE PROFILEon 3 Bilirubin Ql (U) Negative Normal NEGATIVE [facility] [place] Comment on above: Performed By: #### U MICRO, ERUR #### [facility] [address] [place] [address] Dr. Andrea Garcia Clarity (U) CLEAR Normal CLEAR [facility] [place] Comment on above: Performed By: #### U MICRO, ERUR #### [facility] [address] [address] [address] Andrea Garcia Color (U) LT. YELLOW Normal YELLOW [facility] Comment on above: Performed By: #### U MICRO, ERUR #### [facility] [address] [address] [address] Andrea Garcia ERURESHMA A micrscopic examina tion will be performed if indicated. Normal [facility] [place] Comment on above: Performed By: #### U MICRO, ERUR #### [facility] [address] [place] [address] Dr. Andrea Garcia Glucose Ql (U) Negative Normal NEGATIVE [facility] [place] Comment on above: Performed By: #### U MICRO, ERUR #### [facility] [address] [address] [address] Andrea Garcia Hemoglobin Ql (U) TRACE-INTACT Abnormal NEGATIVE [facility] Comment on above: Performed By: #### U MICRO, ERUR #### [facility] [address] [place] [address] Dr. Andrea Garcia Ketones Ql (U) Negative Normal NEGATIVE [facility] Comment on above: Performed By: #### U MICRO, ERUR #### [facility] [address] [place] [address] Dr. Andrea Garcia LEUKOCYTES Negative Normal NEGATIVE [facility] Comment on above: Performed By: #### U MICRO, ERUR #### [facility] [address] [place] [address] Dr. Andrea Garcia Nitrite Ql (U) Negative Normal NEGATIVE [facility] Comment on above: Performed By: #### U MICRO, ERUR #### [facility] [address] [place] [address] Dr. Andrea Garcia pH (U) 5.5 [pH] Normal 5-9 [facility] Comment on above: Performed By: #### U MICRO, ERUR #### [facility] [address] [place] [address] Dr. Andrea Garcia SPEC GRAVITY 1.015 Normal 1.005-<=1. 025 [facility] Comment on above: Performed By: #### U MICRO, ERUR #### [facility] [address] [place] [address] Dr. Andrea Garcia UA PROTEIN Negative Normal NEGATIVE/ TRACE [facility] Comment on above: Performed By: #### U MICRO, ERUR #### [facility] [address] [place] [address] Dr. Andrea Garcia UR MICRO IND INDICATED Normal [facility] Comment on above: Performed By: #### U MICRO, ERUR #### [facility] [address] [place] [address] Dr. Andrea Garcia Urobilinogen Qn (U) 0.2 {Temo'U}/dL Normal 0.2 - 1. 0 [facility] [place] Comment on above: Performed By: #### U MICRO, ERUR #### [facility] [address] [place] [address] Dr. Andrea Garcia LACTATE/LACTIC ACIDon 2022 Lactate [Moles/Vol] 0.8 mmol/L Normal 0.4-2.0 [facility] [place] Comment on above: Performed By: #### L ACT #### [facility] [address] [address] [address] Andrea Garcia Lactate [Moles/Vol] 0.9 mmol/L Normal 0.4-2.0 [facility] [place] Comment on above: Performed By: #### L ACT #### [facility] [address] [place] [address] Dr. Andrea Garcia LIPASEon 01-10-2023 Lipase [Catalytic activity/Vol] 71.0 U/L Critically low 73.0-393.0 [facility] [place] Comment on above: Performed By: #### C MADM, CMP, DAMIEN, LIPA ####[facility] [address] [place] [address]DrWilder Garcia PROF 14(COMP METB)on 023 Albumin [Mass/Vol] 3.2 g/dL Critically low 3.4-5.0 [facility] Comment on above: Performed By: #### C MADM, CMP, DAMIEN, LIPA ####[facility] [address] [place] [address]DrWilder Garcia Albumin/Globulin [Mass ratio] 0.9 {ratio} Normal [facility] [place] Comment on above: Performed By: #### C MADM, CMP, DAMIEN, LIPA ####[facility] [address] [place] [address]DrWilder Garcia ALP [Catalytic activity/Vol] 68 U/L Normal 46-116 [facility] Comment on above: Performed By: #### C MADM, CMP, DAMIEN, LIPA ####[facility] [address] [place] [address]DrWilder Garcia ALT [Catalytic activity/Vol] 30 U/L Normal 16-63 [facility] Comment on above: Performed By: #### C MADM, CMP, DAMIEN, LIPA ####[facility] [address] [place] [address]Dr. Andrea Garcia Anion gap [Moles/Vol] 14.2 mmol/L Normal [facility] Comment on above: Performed By: #### C MADM, CMP, DAMIEN, LIPA ####[facility] [address] [place] [address]Dr. Andrea Garcia AST [Catalytic activity/Vol] 18 U/L Normal 15-37 [facility] [place] Comment on above: Performed By: #### C MADM, CMP, DAMIEN, LIPA ####[facility] [address] [place] [address]Dr. Andrea Garcia Bilirubin [Mass/Vol] 0.5 mg/dL Normal 0.2-1.0 [facility] Comment on above: Performed By: #### C MADM, CMP, DAMIEN, LIPA ####[facility] [address] [place] [address]Dr. Andrea Garcia Calcium [Mass/Vol] 8.5 mg/dL Normal 8.5-10.1 [facility] Comment on above: Performed By: #### C MADM, CMP, DAMIEN, LIPA ####[facility] [address] [place] [address]Dr. Andrea Garcia Chloride [Moles/Vol] 108 mmol/L Critically high 98-107 [facility] Comment on above: Performed By: #### C MADM, CMP, DAMIEN, LIPA ####[facility] [address] [place] [address]Dr. Andrea Garcia CO2 [Moles/Vol] 22.1 mmol/L Normal 21.0-32.0 [facility] Comment on above: Performed By: #### C MADM, CMP, DAMIEN, LIPA ####[facility] [address] [place] [address]Dr. Andrea Garcia Creatinine [Mass/Vol] 1.06 mg/dL Normal 0.70-1.30 [facility] [place] Comment on above: Performed By: #### C MADM, CMP, DAMIEN, LIPA ####[facility] [address] [place] [address]Dr. Yilan Garcia EGFR-AF CONGOLESE >60 Normal >=60 [facility] [place] Comment on above: Performed By: #### C MADM, CMP, DAMIEN, LIPA ####[facility] [id number] [place] [address]Dr. Yilan Garcia EGFR-NON AF CONGOLESE >60 Normal >=60 [facility] Comment on above: Performed By: #### C MADM, CMP, DAMIEN, LIPA ####[facility] [id number] [place] [address]Dr. Andrea Garcia Globulin (S) [Mass/Vol] 3.5 g/dL Normal [facility] Comment on above: Performed By: #### C MADM, CMP, DAMIEN, LIPA ####[facility] [address] [place] [address]Dr. Andrea Garcia Glucose [Mass/Vol] 110 mg/dL Critically high 74-106 T [facility] Comment on above: Performed By: #### C MADM, CMP, DAMIEN, LIPA ####[facility] [address] [place] [address]Dr. Andrea Garcia Potassium [Moles/Vol] 4.3 mmol/L Normal 3.5-5.1 [facility] Comment on above: Performed By: #### C MADM, CMP, DAMIEN, LIPA ####[facility] [address] [place] [address]Dr. Kaylenlan Garcia Protein [Mass/Vol] 6.7 g/dL Normal 6.4-8.2 [facility] Comment on above: Performed By: #### C MADM, CMP, DAMIEN, LIPA ####[facility] [id number] [place] [address]Dr. Andrea Garcia Sodium [Moles/Vol] 140 mmol/L Normal 136-145 [facility] Comment on above: Performed By: #### C MADM, CMP, DAMIEN, LIPA ####[facility] [address] [place], [place] [address]Oz. Andrea Garcia Urea nitrogen [Mass/Vol] 20.0 mg/dL Critically high 7.0-18.0 [facility] Comment on above: Performed By: #### C MADM, CMP, DAMIEN, LIPA ####[facility] [address] [place] [id number]. Andrea Garcia Urea nitrogen/Creatinine [Mass ratio] 18.9 mg/mg Normal [facility] Comment on above: Performed By: #### C MADM, CMP, DAMIEN, LIPA ####[facility] [id number] [place] [address]Dr. Andrea Garcia URINE MICROSCOPIC ONLYon BACTERIA NONE SEEN Normal NONE SEEN [facility] Comment on above: Performed By: #### U MICRO, ERUR #### [facility] [address] [address] [address] Andrea Garcia Bacteria identified Cx Nom (U) NOT INDICATED Normal [facility] Comment on above: Performed By: #### U MICRO, ERUR #### [facility] [address] [address] [address] Andrea Garcia CAST NONE SEEN Normal NONE SEEN [facility] Comment on above: Performed By: #### U MICRO, ERUR #### [facility] [address] [address] [address] Andrea Garcia Crystals LM Nom (Urine sed) NONE SEEN Normal NONE SEEN [facility] Comment on above: Performed By: #### U MICRO, ERUR #### [facility] [address] [address] [address] Andrea Garcia Epithelial cells LM Ql (Urine sed) NONE SEEN Normal NONE SEEN /RARE [facility] Comment on above: Performed By: #### U MICRO, ERUR #### [facility] [address] [address] [address] Andrea Garcia MUCOUS NONE SEEN Normal NONE SEEN [facility] Comment on above: Performed By: #### U MICRO, ERUR #### [facility] [address] [address] [address] Andrea Garcia RBC 0-2 Normal 0-2 [facility] Comment on above: Performed By: #### U MICRO, ERUR #### [facility] [address] [address] [address] Andrea Garcia WBC 0-2 Abnormal NONE SEEN [facility] Comment on above: Performed By: #### U MICRO, ERUR #### [facility] [address] [address] [address] Andrea Garcia XR CHEST 1 Von 01-10-2023 XR CHEST 1 V Exam: Radiographs: X R CHEST 1 V Reason for exam: Nausea/vomiting Comparison: None IMPRESSION: Negative chest. Electronically authenticated by: ADITYA OATES Date: 2023-01-10 07:42 Normal [facility] MRI Soft Tissue Neck w/o + [...] by KENN RAPHAEL on 10/06/2021 1605 Normal [facility] CT Soft Tissue Neck w/ Contr ast*on [...] by Que Greene on 09/29/2021 1013 Normal [facility] [employer] Vital Signs Date Time Vital Sign Value Performing Clinician Ethan liu 01-09-2024 19:01-0400 Diastolic blood pressure 99 mm[Hg] MD Rodriguez Godwin Work Phone: [facility] 01-09-2024 19:01-0400 Heart rate 84 /min MD Rodriguez Godwin Work Phone: [facility] 01-09-2024 19:01-0400 Respiratory rate 18 /min MD Rodriguez Godwin Work Phone: [facility] 01-09-2024 19:01-0400 SaO2% (BldA) [Mass fraction] 97 % MD Rodriguez Godwin Work Phone: [facility] 01-09-2024 19:01-0400 Systolic blood pressure 190 mm[Hg] MD Rodriguez Godwin Work Phone: [facility] 01-09-2024 14:290400 Body height 187.96 cm MD Rodriguez Godwin Work Phone: [facility] 01-09-2024 14:29-0400 Body temperature 98.3 [degF] MD Rodriguez Godwin Work Phone: [facility] 01-09-2024 14:290400 Body weight 83 kg MD Rodriguez Godwin Work Phone: [facility] 12-18-2023 13:10-0400 Heart rate 85 /min MD Rodriguez Godwin Work Phone: [facility] 12-18-2023 13:09-0400 Body temperature 97.9 [degF] MD Rodriguez Godwin Work Phone: [facility] 12-18-2023 13:09-0400 Diastolic blood pressure 77 mm[Hg] MD Rodriguez Godwin Work Phone: [facility] 12-18-2023 13:09-0400 Respiratory rate 18 /min MD Rodriguez Godwin Work Phone: [facility] 12-18-2023 13:09-0400 SaO2% (BldA) [Mass fraction] 97 % MD Rodriguez Godwin Work Phone: [facility] 12-18-2023 13:09-0400 Systolic blood pressure 161 mm[Hg] MD Rodriguez Godwin Work Phone: [facility] 12-18-2023 13:06-0400 Body height 186.69 cm MD Rodriguez Godwin Work Phone: [facility] 12-18-2023 13:06-0400 Body weight 81 kg MD Rodriguez Godwin Work Phone: [facility] 03-03-2023 13:30-0400 Diastolic blood pressure 100 mm[Hg] MD Rodriguez Godwin Work Phone: [facility] 03-03-2023 13:30-0400 Heart rate 59 /min MD Rodriguez Godwin Work Phone: [facility] 03-03-2023 13:30-0400 Respiratory rate 18 /min MD Rodriguez Godwin Work Phone: [facility] 03-03-2023 13:30-0400 SaO2% (BldA) [Mass fraction] 99 % MD Rodriguez Godwin Work Phone: [facility] 03-03-2023 13:30-0400 Systolic blood pressure 160 mm[Hg] MD Rodriguez Godwin Work Phone: [facility] 03-03-2023 11:36-0400 Body height 175.26 cm MD Rodriguez Godwin Work Phone: [facility] 03-03-2023 11:36-0400 Body temperature 98 [degF] MD Rodriguez Godwin Work Phone: [facility] 03-03-2023 11:36-0400 Body weight 84.3 kg MD Rodriguez Godwin Work Phone: [facility] Encounters Encounter Date Encounter Type Care Provider Facility Start: 01-09-2024 End: 01-09-2024 Emergency department patient visit Rodriguez Godwin Facility:[facility] Start: 01-09-2024 End: 01-09-2024 Emergency department patient visit MD Rodriguez Godwin Work Phone: [facility] Work Phone: Start: 12-18-2023 End: 12-18-2023 Emergency department patient visit Marie Garrison Facility:[facility] Start: 12-18-2023 End: 12-18-2023 Emergency department patient visit MD Rodriguez Godwin Work Phone: [facility] Work Phone: Start: 12-09-2023 End: 12-09-2023 ambulatory [facility] Start: 06-07-2023 End: 06-07-2023 ambulatory [facility] Start: 05-27-2023 End: 05-27-2023 ambulatory [facility] Start: 04-06-2023 ambulatory [facility] Start: 04-06-2023 End: 04-06-2023 ambulatory [facility] Start: 03-21-2023 End: 03-21-2023 ambulatory MATTIE AVALOS [facility] Start: 03-03-2023 End: 03-03-2023 Emergency department patient visit Ramiro Cortez Facility:[facility] Start: 03-03-2023 End: 03-03-2023 Emergency department patient visit MD Rodriguez Godwin Work Phone: [facility] Work Phone: Start: 01-10-2023 [...] Date Care Activity Detail Author Start: 12-18-2023 [facility] Patient Education [facility] Work Phone: Patient referral [facility] Work Phone: Payers Date Payer Category Payer Self-pay [id number] 1960 Medicare [id number] 1950 Unknown [id number] Unknown [id number] Unknown [id number] Unknown [id number] Social History Date Type Detail Facility Start: 03-03-2023 End: 01-09-2024 Tobacco smoking status NHIS Ex-smoker (finding) [facility] Start: 1950 Sex Assigned At Male F [facility] Clinical Notes 03-15-2023 to 12-09-2023 Note Date & Type Note Facility 12-09-2023 Note 8K can you read, out of the so I can make changes in CT Cardiology - [facility] Subjective Jeb Riddle is a 73 [...] presented to the emergency room at the [facility] and investigation including a CT scan of [...] Rfl: 3 prav (more content not included)... [facility] 06-07-2023 Note [facility]rophysiology Consult Note [...] Heart Sounds: norm (more content not included)... [facility] 05-27-[address] Cardiology - [facility] Subjective Jeb [...] Rate 04/06/2023 80 Atrial Rate 04/06/2023 80 OK Interval 04/06/2023 176 QRS DURATION 04/06/2023 98 QT Interval 04/06/2023 396 QTC CALCULATION(BAZETT) 04/06/2023 456 P Bartlett 04/06/2023 79 R-Bartlett 04/06/2023 75 T Wave Bartlett 04/06/2023 73 Imaging and other tests Cardiac catheterization 04/06/2023: Impression/Findings: Coronary angiogram shows non-obstructive coronary artery disease. Plan: Medical therapy for (more content not included)... [facility] 04-06-2023 Note Yes he should. For s yncope he needs a 30d monitor. Can we set him up with a visit either with me or dr. Shirley and 30d monitor please, can do monitor at visit or prior to, whichever works best [facility] 04-06-2023 Note Patient: Jeb lamb Procedure Information Date/Time: 04/06/23 1400 Procedure: Coronary angiography (Left) Location: [facility] SALES SUPPORT ADMINISTRATOR 3 / [facility] (Cath) Providers: Jessica Forrester [...] Plan discussed with attending. Additional Equipment Requests [facility] 03-21-2023 Note Will continue to mon itor with routine echocardiograms. [facility] 03-21-2023 Note Currently euvolemic without and volume overload Elevated rt disided pressures may be r/t pulmonary process in light of + smoking. [facility] 03-21-2023 Note Will continue to monitor. Stephane mccarthy [facility] 03-21-2023 Note Resume metoprolol 50 mg po bid for arrythmia management Plan for cardiac cath and may need evaluation with EP [facility] 03-21-2023 Note Hypertension is impr jc but he stopped taking metoprolol 100 mg bid r\t fatigue. Will resume metoprolol at 50 mg bid and increase lisinopril to 40 mg daily. Repeat BMP in 1 week [facility] 03-21-2023 Note In light of unstable angina with uncontrolled HTN, multiple syncopal episodes and NSVT will send pt for heart cath- Lt Cors and cancel stress test at this time for ischemic evaluation. [facility] 03-21-2023 Note In light pt admits 2 episodes of syncope while on vacation in [place] with his daughter- denied any symptoms prior to waking up on the floor- broke 3 front teeth in one episode. [facility] 03-21-2023 Note [facility] CARDIOLOGY PROGR ESS NOTE HPI: Jeb Riddle is a 72 y.o. male here for hospital f/U after recent inpt at [facility] for chest pain, uncontrolled HTN HPI Pt states that his b/p at home is much improved and typically 140's/80's, denied chest pain, syncope, palpitations, NARANJO or orthopnea. States that he has continued to bike ride about 10 miles/day without any limiting symptoms. Pt admits that while on vacation in [place] with his daughter recently he had 2 episodes of syncope and collapse- denied any symptoms prior to episode- denied chest pain, SOB or palpitations. Was evaluated in [facility] ED recently for near syncope. Reports that [...] episodes of syncope while on vacation in [place] with his daughter- denied any symptoms prior [...] monitor with routine echocardiograms. RTC post cath [facility] 03-21-2023 Note Patient here for fol low up [facility] for chest pain and hypertension. Says the isosorbide has helped a lot. Denies SOB, palpitations, and syncope. Feels much better s/p hospital discharge. Review of Systems All other systems reviewed and are negative. [facility] 03-21-2023 Note [facility] CARDIOLOGY PROGR ESS NOTE HPI: Jeb Riddle is a 72 y.o. male here for hospital f/U after recent inpt at [facility] for chest pain, uncontrolled HTN HPI Pt states that his b/p at home is much improved and typically 140's/80's, denied chest pain, syncope, palpitations, NARANJO or orthopnea. States that he has continued to bike ride about 10 miles/day without any limiting symptoms. Pt admits that while on vacation in [place] with his daughter recently he had 2 episodes of syncope and collapse- denied any symptoms prior to episode- denied chest pain, SOB or palpitations. Was evaluated in [facility] ED recently for near syncope. Reports that [...] episodes of syncope while on vacation in [place] with his daughter- denied any symptoms prior [...] monitor with routine echocardiograms. RTC post cath [facility] 03-15-2023 Note Pt was seen as new c onsult at [facility] yesterday for chest pain, Unstable angina, [...] ordered. Mattie Avalos NP Division of Cardiology, [facility]- [phone] Pager- [phone] Email- [email or web address] Evaluation note No assessment inform ation available [facility] Work Phone: Hospital Discharge instructions Additional Instructions Continue Pepcid once or twice a day as needed [place] diet Follow-up with your family doctor for recheck Return to the ER for worsening pain shortness of breath fever or any other concerns [facility] Work Phone: Summary Purpose Family History No [...] section and content) DATE CREATED AUTHOR 10/07/2021 [facility] Me dical Specialist DATE CREATED AUTHOR AUTHOR'S ORGANIZ ATION 01/21/2023 [facility] DATE CREATED AUTHOR AUTHOR'S ORGANIZ ATION 01/09/[address] [facility] DATE CREATED AUTHOR AUTHOR'S ORGANIZ ATION 02/17/2024 [facility] Care Teams (unrecognized sec tion and content) Team Status: Active Member Role Status Dates Rodriguez Godwin MD Primary Care Provider Active Team Status: Inactive Member Role Status Dates Rodriguez Godwin MD Primary Care Provider Active Ramiro Cortez DO Emergency Provider Active Team Status: Inactive Member Role Status Dates Rodriguez Godwin MD Primary Care Provider Active Start: December 18, 2023 End: December 18, 2023 Marie Garrison APRN Emergency Provider Active Start: December 18, 2023 End: December 18, 2023 Team Status: Inactive Member Role Status Dates Rodriguez Godwin MD Primary Care Provider Active Start: January 09, 2024 End: January 09, 2024 ASHISH Blankenship Emergency Provider Active Start: January 09, 2024 [...] BE BASED ON THE PRIMARY CLINICAL RECORDS. [facility]. provides no warranty or guarantee of the accuracy or completeness of information in this document.
[2024-03-19 23:06] LABS: Alanine Aminotransferase 24 U/L (16-63); Albumin Globulin Ratio 1.1; Alkaline Phosphatase 64 U/L (46-116); Aspartate Amino Transferase 11 U/L (15-37); Bilirubin Direct 0.1 mg/dL (0.0-0.2); Bilirubin Total 0.3 mg/dL (0.2-1.0); Globulin 2.8 g/dL; Total Protein 5.8 g/dL (6.4-8.2); Troponin I High Sensitivity 8.2 pg/mL (4.0-76.1)
[2024-03-20] VITALS (11 sets, daily range): BP systolic 155–190; BP diastolic 72–99; PULSE 47–64; TEMP 36.6–36.8; O2SAT 97–98
[2024-03-20 03:07] LABS: PTT Heparin Monitor 82.8 sec (48.2-68.6)
[2024-03-20 06:38] LABS: Basophils Percent Auto 0.4 % (0.2-2.0); Eosinophils Absolute Auto 0.2 10^3/uL (0.0-0.7); Eosinophils Percent Auto 4.1 % (0.9-7.0); Hematocrit 34.7 % (42.0-54.0); Immature Granulocytes Abs Auto 0.01 10^3/uL (0.00-0.03); Immature Granulocytes Pct Auto 0.2 % (0.0-0.5); Lymphocytes Absolute Auto 1.8 10^3/uL (1.2-3.8); Lymphocytes Percent Auto 32.3 % (20.5-60.0); Mean Corpuscular HGB Conc 34.6 g/dL (29.9-35.2); Mean Corpuscular Hemoglobin 32.4 pg (25.9-34.0); Mean Corpuscular Volume 93.8 fL (80.0-94.0); Mean Platelet Volume 10.4 fL (9.5-13.5); Monocytes Absolute Auto 0.4 10^3/uL (0.3-0.8); Monocytes Percent Auto 6.3 % (1.7-12.0); Neutrophils Absolute Auto 3.2 10^3/uL (1.4-6.5); Neutrophils Percent Auto 56.7 % (43.0-75.0); Platelet Count 181 10^3/uL (150-450); Red Cell Distribution Width 12.2 % (11.0-15.0); White Blood Count 5.6 10^3/uL (4.0-11.0)
--- NOTE | 2024-03-20 06:50 | CA_ITS ---
Patient Name: JEB TOBIAS MR#: [id number] : 1950 Exam Date: 03/20/2024 Ordering Doctor: DR Rodriguez Godwin . ECHOCARDIOGRAM REPORT PROCEDURE: CA ECHO LIMITED INDICATIONS: Dyspnea, Pulmonary embolism COMPARISON: None. DESCRIPTION: Limited ECHOCARDIOGRAM Real-time transthoracic echocardiography with 2D and M-mode performed. QUALITY: Technical quality was adequate. LEFT VENTRICLE: Normal chamber size. Moderate concentric left ventricular hypertrophy. LV EF: Global left ventricular systolic function is hyperdynamic. Visual estimation of left ventricular ejection fraction is 65-70%. No wall motion abnormalities. LEFT ATRIUM: Mild dilatation. RIGHT ATRIUM: Mild dilatation. RIGHT VENTRICLE: Normal chamber size. Normal right ventricular systolic function. TRICUSPID VALVE: Normal mobility and thickness. No stenosis with mild regurgitation. Moderate pulmonary hypertension. RVSP 52mmHg and is unchanged from previous study of 02/02/24. MITRAL VALVE: Normal mobility and thickness. AORTIC VALVE: Normal trileaflet appearance. Normal leaflet mobility. AORTIC ROOT: Normal diameter and appearance. PULMONIC VALVE: Normal thickness and mobility. PERICARDIUM: No evidence of pericardial effusion. IVC: Collapses with inspirations. Normal size. CONCLUSION: 1. Global left ventricular systolic function is hyperdynamic; visually estimated ejection fraction is 65-70% 2. Normal right ventricular size and systolic function 3. Biatrial enlargement 4. Mild tricuspid regurgitation 5. Moderately elevated RVSP; RVSP 52 mmHg A limited echocardiogram was performed Adult Echocardiography Procedure Report Left Ventricle LVEDD (3.7 - 5.6 cm): 4.31 cm LVESD (2.2 - 4.0 cm): 2.94 cm LVIVS thickness (0.6 - 1.2 cm): 1.44 cm LVPW thickness (0.5 - 1.0 cm): 1.51 cm LVOT Diameter 2.28 cm Left Ventricular Ejection Fraction: 71.99 % Left Atrium LA Volume Index (2D A2C): 39.52 ml/m2 Left Atrium Systolic Dimension: 3.78 cm Mitral Valve Right Ventricle RV Internal Diastolic Dimension: 3.43 cm Aorta AO Root Diam: 3.60 cm Aortic Valve Tricuspid Valve Peak Velocity (Regurgitant Flow): 3.09 m/s, 3.48 m/s Pulmonic Valve Right Atrium Right Atrium Systolic Pressure: 60.19 ml, 60.19 ml Dictated by: Adal Hernandez M.D. on 03/20/2024 at 09:14 Approved by: Adal Hernandez M.D. on 03/20/2024 at 09:18
[2024-03-20 06:56] LABS: Alanine Aminotransferase 26 U/L (16-63); Albumin Globulin Ratio 1.1; Albumin Level 3.1 g/dL (3.4-5.0); Alkaline Phosphatase 64 U/L (46-116); Anion Gap 14.5; Aspartate Amino Transferase 17 U/L (15-37); BUN Creatinine Ratio 30.2; Bilirubin Total 0.4 mg/dL (0.2-1.0); Calcium 8.5 mg/dL (8.5-10.1); Carbon Dioxide 21.8 mmol/L (21.0-32.0); Chloride 108 mmol/L (98-107); Estimated GFR (African America >60 (>=60); Estimated GFR (Non-African Ame >60 (>=60); Globulin 2.7 g/dL; Glucose 106 mg/dL (74-106); Potassium 4.3 mmol/L (3.5-5.1); Sodium 140 mmol/L (136-145); Total Protein 5.8 g/dL (6.4-8.2)
[2024-03-20 07:08] LABS: Troponin I High Sensitivity 8.9 pg/mL (4.0-76.1)
[2024-03-20 07:45] LABS: Magnesium 1.5 mg/dL (1.8-2.4); Thyroid Stimulating Hormone 3.249 uIU/mL (0.358-3.740)
--- NOTE | 2024-03-20 08:04 | P.HP_ITS ---
HPI H&P: HPI History of Present Illness Chief complaint: Pulmonary embolism Narrative: Patient with a DVT but stopped this medication after 5 doses due to a Google search, presented and reviewed emergency room with increasing shortness of breath and chest pain, pleuritic, in ER found to have right upper lobe subsegmental and segmental pulmonary emboli. Ultrasound of lower extremity negative for DVT. Patient admitted to ICU on heparin. I saw patient in the intensive care unit, resting comfortably in bed, no conversational dyspnea, no cough no chest pain. Opioid HPI Opioid Management Most Recent Pain and Opioid Data: Last Pain Scale 10 11/01/23 20:07 Last Pain Assessment 03/20/24 07:53 Last ORT Total Score 0 03/19/24 21:48 Last ORT Risk Category Low Risk 03/19/24 21:48 PFSH [facility] Medical History (Updated 03/20/24 @ 08:05 by Rodriguez Godwin MD) DVT (deep venous thrombosis) ?I82.409 - Acute embolism and thrombosis of unspecified deep veins of unspecified lower extremity (ICD-10) Dehydration ?E86.0 - Dehydration (ICD-10) DAVID (acute kidney injury) ?N17.9 - Acute kidney failure, unspecified (ICD-10) Abdominal pain ?R10.9 - Unspecified abdominal pain (ICD-10) Nausea & vomiting ?R11.2 - Nausea with vomiting, unspecified (ICD-10) Hypertension ?I10 - Essential (primary) hypertension (ICD-10) Crohn disease ?K50.90 - Crohn's disease, unspecified, without complications (ICD-10) Surgical History (Updated 03/19/24 @ 21:43 by Shani Coyne) H/O hernia repair ?Z98.890 - Other specified postprocedural states (ICD-10) ?Z87.19 - Personal history of other diseases of the digestive system (ICD-10) History of bowel resection ?Z90.49 - Acquired absence of other specified parts of digestive tract (ICD- 10) Family History (Updated 03/13/23 @ 20:02 by Bita Cyr RN) Father Family history of COPD (chronic obstructive pulmonary disease) Family history of diabetes mellitus Family history of myocardial infarction Brother Family history of cancer Mother Family history of diabetes mellitus Other Family history of hypertension Social History Within the past year, how often did you have a drink containing alcohol: 2-3 times a week Within the past year, how many standard drinks containing alcohol did you have on a typical day: 1 or 2 Within the past year, how often did you have six or more drinks on one occasion: never Total score: 0 Score interpretation: A score less than 4 is consistent with normal alcohol consumption. 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 Little interest or pleasure in doing things: not at all Feeling down, depressed, or hopeless: not at all Feel stressed/tense/nervous/anxious/difficulty sleeping: not at all Do you think of yourself as: straight/heterosexual Gender Identity: male Meds Home Medications and Allergies Home Medications ?Medication ?Instructions ?Recorded ?Confirmed ?Type lisinopril 5 mg tablet 40 mg PO DAILY 02/25/23 03/19/24 History mesalamine 400 mg capsule (with 800 mg PO BID 02/25/23 03/19/24 History delayed release tablets inside) aspirin 325 mg tablet 325 mg PO DAILY #30 tabs 03/14/23 03/19/24 Rx desvenlafaxine succinate 50 mg 50 mg PO DAILY 03/14/23 03/19/24 History tablet,extended release 24 hr isosorbide mononitrate 30 mg 30 mg PO QAM #30 tabs 03/14/23 03/19/24 Rx tablet,extended release 24 hr ondansetron 8 mg disintegrating 8 mg PO Q8H PRN nausea and vomiting 09/02/23 03/19/24 History tablet clonidine HCl 0.1 mg tablet 0.1 mg PO BID 03/19/24 03/19/24 History metoprolol tartrate 100 mg tablet 100 mg PO BID 03/19/24 03/19/24 History topiramate 50 mg tablet (Topamax) 50 mg PO DAILY 03/19/24 03/19/24 History Allergies Allergy/AdvReac Type Severity Reaction Status Date / Time Fish Containing Products AdvReac Severe Abdominal Verified 03/19/24 15:43 Pain Exam Constitutional Vital Signs, click to edit/add: Last Vital Signs Temp 97.8 F 03/20/24 06:48 Pulse 64 03/20/24 07:20 Resp 12 03/20/24 07:20 BP 190/99 H 03/20/24 07:19 Pulse Ox 97 03/20/24 07:19 O2 Del Method Room Air 03/20/24 06:48 Documenting provider has reviewed patient's vital signs: yes Common normals: no apparent distress Respiratory Common normals: normal respiratory effort and no retractions Cardio Common normals: regular rate and regular rhythm GI Common normals: Normal to inspection, nondistended, normoactive bowel sounds pr esent Extremity Common normals: normal to inspection and full ROM Results Labs Labs: Short CBC 03/19/24 03/20/24 Range/Units 16:00 05:08 WBC 7.6 5.6 (4.0-11.0) 10^3/uL Hgb 12.0 L 12.0 L (14.0-18.0) g/dL Hct 34.8 L 34.7 L (42.0-54.0) % Plt Count 206 181 (150-450) 10^3/uL BMP 03/19/24 03/20/24 16:00 05:08 Sodium 134 L 140 Potassium 4.9 4.3 Chloride 103 108 H Carbon Dioxide 24.2 21.8 BUN 37.0 H 35.0 H Creatinine 1.28 1.16 Glucose 107 H 106 Calcium 8.3 L 8.5 Liver Function 03/19/24 03/20/24 Range/Units 22:45 05:08 Total Bilirubin 0.3 0.4 (0.2-1.0) mg/dL Direct Bilirubin 0.1 (0.0-0.2) mg/dL AST 11 L 17 (15-37) U/L ALT 24 26 (16-63) U/L Alkaline Phosphatase 64 64 (46-116) U/L Albumin 3.0 L 3.1 L (3.4-5.0) g/dL Assessment and Plan Assessment and Plan (1) Pulmonary embolism: Plan Chest pain, uncontrolled hypertension, bradycardia, respiratory distress secondary to right upper lobe subsegmental and segmental pulmonary emboli. Currently patient is not hypoxic, respiratory distress is improved, has been on heparin overnight, will start patient on Eliquis, check echocardiogram, if echocardiogram shows no right heart strain, will discharge to home in improving condition. Medications do this. Follow-up with me in the office late this week or early next. Uncontrolled hypertension so far improved this morning. Will maintain current medications General: Anxiety disorder-continue with her current medications History of colitis-continue with current medications Admission status: Patient placed initially an inpatient but is going to be changed since he is likely discharged to home later today. Stable overnight. No indications for inpatient status
[2024-03-20] MEDS: APIXABAN 5 MG TABLET 10 MG PO (08:24)
--- NOTE | 2024-03-20 08:34 | PC.NURSE ---
discharge instructions explained to pt, verbalized understanding. ambulated to exit with belongings and home meds. discharged to private vehicle.
--- NOTE | 2024-03-20 09:47 | SWNOTE1 ---
Pt was discharged prior to SW being able to assess or complete JEFFREY form with pt.
--- NOTE | 2024-03-21 16:07 | CM.DCFOLLOWU ---
Person spoke with: Clark How are you feeling? Better How is your pain? Some occasional chest pain and spoke with Dr. Godwin Did you understand your discharge instructions? Yes Do you have any questions about your discharge instructions? No Were you given any prescriptions at discharge? Yes Were you able to get your prescriptions filled? Yes Do you understand how to take your medications as ordered? Yes Do you have any questions about your follow up appointment and do you plan to keep your follow up appointment? No and I do plan on going Is there anything else that you would like to discuss? No Questions/Comments/Concerns/Other:
== END 2024-03-20 08:34 | disposition home or self-care (01) ==
LOC: ER 19:10 → ICU 21:30
PROVIDERS: Registered Nurse; Student in an Organized Health Care Education/Training Program; Admitting Provider Family Medicine; Emergency Provider Emergency Medicine; Family Provider Family Medicine; PCP Family Medicine; Visit Provider Family Medicine
DX: I26.99 Other pulmonary embolism without acute cor pulmonale (principal); I26.93 Single subsegmental thrombotic pulmonary embolism without acute cor pulmonale; R07.9 Chest pain, unspecified; I10 Essential (primary) hypertension; R00.1 Bradycardia, unspecified; R06.03 Acute respiratory distress; F41.1 Generalized anxiety disorder; K50.90 Crohn's disease, unspecified, without complications; R06.02 Shortness of breath; Z87.891 Personal history of nicotine dependence; Z86.718 Personal history of other venous thrombosis and embolism
CPT/HCPCS: 36415; 71275; 80048; 80053; 80076; 83735; 83880; 84436; 84443; 84484; 85025; 85610; 85730; 93005; 93308; 93971; 96361; 96365; 96366; 96376; 99285; G0378; J1644; Q9967

== ENCOUNTER 2024-04-05 09:36 | Outpatient (OUT) | payer MEDICARE, OTHER, SELFPAY ==
[2024-04-05 10:28] LABS: Chol HDL Ratio 3.1; Cholesterol 116 mg/dL (<=200); HDL Cholesterol 38 mg/dL (40-60); Triglycerides 132 mg/dL (<=150); VLDL CHOLESTEROL 26.4 mg/dL
== END 2024-04-05 09:37 | disposition home or self-care (01) ==
LOC: LAB 09:39
PROVIDERS: Family Provider Family Medicine; PCP Family Medicine; Visit Provider Internal Medicine Interventional Cardiology
DX: I25.10 Atherosclerotic heart disease of native coronary artery without angina pectoris (principal)
CPT/HCPCS: 36415; 80061

== ENCOUNTER 2024-04-12 13:01 | Outpatient (OUT) | payer MEDICARE, OTHER, SELFPAY ==
--- OUTSIDE RECORDS SUMMARY | 2024-04-12 13:21 | XMS_ITS | CCD ---
Author Organization [facility] Care Team Providers Care Florist Manager Name Role Phone DR BEHZAD CROCKER Primary Care Unavailable DANIEL ., JUNI Attending Unavailable DANIEL ., JUNI Admitting Unavailable DR ROBERT DAVENPORT V Consulting Unavailable PITER GROSSMAN Consulting Unavailable DANIEL ., JUNI Consulting Unavailable DIAB ., GRAYSON Consulting Unavailable ADITYA OATES Consulting Unavailable MD Rodriguez Godwin Primary Care Provider [phone] DO Ramiro Cortez Emergency Provider MD Rodriguez Godwin Primary Care Provider [phone] KYA Garrison Emergency Provider [phone] Deb, CAREER GUIDANCE TECHNICIAN-BC Naima Phelan Emergency Provider Rodriguez Godwin Primary Care Unavailable Naima Boyd Admitting Unavailable Naima Boyd Attending Unavailable Ramiro Cortez Admitting Unavailable Ramiro Cortez Attending Unavailable Rodriguez Godwin Primary Care Unavailable Marie Garrison Attending Unavailable Rodriguez Godwin Primary Care Unavailable Marie Garrison Admitting Unavailable JESSICA FORRESTER Attending Unavailable SHIV SHIRLEY Attending Unavailable JESSICA FORRESTER Attending Unavailable JESSICA FORRESTER Attending Unavailable Allergies Allergy Classification Reported Allergen(s) Allergy Type Date of Onset Reaction(s) Facility (2 sources) Fish derivative; Translations: [fish derived] Propensity to adverse reactions 03-03-20 Gastrointestinal Upset [facility] (1 source) atorvastatin; Translations: [ATORVASTATIN] Drug Allergy 04-06-20 [facility] Repository Medications Current Medications Medication Drug Class(es) Dates [...] Active Problems Problem Classification Problem Date Documented Da te Episodic/Chronic Anxiety disorders (7 sources) Anxiety; Translations: [...] Chronic Coronary atherosclerosis and other heart disease (2 sources) Atherosclerotic heart disease of [place] coronary artery without angina pectoris; Translations: [Atherosclerotic heart disease of [place] coronary artery without angina pectoris] Onset: 12-09-2023 Chronic Essential hypertension (3 sources) Essential (primary) hypertension; Translations: [ESSENTIAL PRIMARY HYPERTENSION] Onset: 01-12-2023 Chronic Other aftercare (1 source) 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; 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] Onset: 01-12-2023 Episodic Other aftercare (1 source) Other assisted (current) drug therapy; Translations: [OTH CUSTOMER TRAINING SPECIALIST CURRENT DRUG THERAPY] Onset: 01-12-2023 Episodic Other and ill-defined heart disease (2 sources) Cardiomegaly; Translations: [Cardiomegaly] Onset: 12-09-2023 Chronic Other skin disorders (1 source) Disorder of the skin and subcutaneous tissue, unspecified; Translations: [DISORDER SKIN AND SUBQ TISSUE UNS] Onset: 01-12-2023 Episodic Phlebitis; thrombophlebitis and thromboembolism (2 sources) Personal history of other venous thrombosis and embolism; Translations: [Personal history of other venous thrombosis and embolism] Onset: 04-06-2024 Episodic Pulmonary heart disease (2 sources) Personal history of pulmonary embolism; Translations: [Personal history of pulmonary embolism] Onset: 04-06-2024 Episodic Regional enteritis and ulcerative colitis (6 [...] sources) Near syncope; Translations: [Syncope and collapse] 03-03-2023 Episodic Unclassified (1 source) Other ventricular tachycardia; Translations: [Other ventricular tachycardia] Onset: 12-09-2023 Unclassified (1 source) Ventricular tachycardia, unspecified; Translations: [Ventricular tachycardia, unspecified] Onset: 03-24-2023 Past or Other Problems Problem Classification Problem Date Documented Da te Episodic/Chronic Nonspecific chest pain (2 sources) Atypical chest pain; Translations: [Other chest pain] Onset: 03-03-2023 01-09-2024 Episodic Unclassified (1 source) Other ventricular tachycardia; Translations: [Other ventricular tachycardia] Onset: 12-09-2023 Unclassified (1 source) Ventricular tachycardia, unspecified; Translations: [Ventricular tachycardia, unspecified] Onset: 06-07-2023 Results Test Name Value Interpretation Reference Range Facility Office Visiton 04-06-2024 Follow-up visit [id number] Jeb Riddle 1950 M Date Provider Department Center 04/06/2024 JESSICA JAMISON M[facility] Family History Problem Relation Age of Onset Diabetes Mother Coronary artery disease Mother Heart attack Father Diabetes Father Coronary artery disease Father Family Status - Relation Status Age at Mother Father Level of Service:65718 [place] OFFICE/OUTPATIENT ESTABLISHED MOD MDM 30 MIN [facility] 36on 02-17-2024 36 Patient called back and said he is taking meds as prescribed at last visit with Dr. Forrester. I made him apt with Dr. Forrester end of Mar since he is not here in Apr. [facility] 36on 02-15-2024 36 Regarding echo from 02/02/2024: MD Yuridia Herman MA Has he been taking meds as I recommended at last visit? 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 He should come for a visit in 3 months. LM w/ sister Mary to return my call. [facility] Activated partial thrombopla stin time (aPTT) in platelet poor plasma by coagulation aOrdered By: Naima Boyd on 01-09-2024 aPTT Coag (PPP) [Time] 29.1 s 25.1-36.5 [facility] Comment on above: A hematocrit value g reater than 55% may lead to inaccurate results in coagulation testing. Patients having hematocrit values >55% require a special collection tube for coagulation studies. Please contact the laboratory at [phone] for redraw instructions. B-Type Natriuretic Peptideon 01-09-2024 Natriuretic peptide B (Bld) [Mass/Vol] 172.0 pg/mL High 5-100 [facility] Comment on above: Result Comment: PERF ORMED BY: [facility] [address] [place] [address] PATHOLOGIST VICE PRESIDENT OF ADVERTISING RADHA BARRON M.D. Performed By: #### B CHARGING MACHINE OPERATOR, HS TROP, BMP, CK, DIFF CBC ####[address] Basic Metabolic Panelon 12-14 Anion gap [Moles/Vol] Not performed Normal 6.0-15.0 [facility] Comment on above: Performed By: #### B CHARGING MACHINE OPERATOR, HS TROP, BMP, CK, DIFF CBC ####[address] Calcium [Mass/Vol] 8.7 mg/dL Normal 8.6-10.3 [facility] Comment on above: Performed By: #### B CHARGING MACHINE OPERATOR, HS TROP, BMP, CK, DIFF CBC ####[address] Chloride [Moles/Vol] 109 mmol/L High 98-107 [facility] Comment on above: Performed By: #### B CHARGING MACHINE OPERATOR, HS TROP, BMP, CK, DIFF CBC ####[address] CO2 [Moles/Vol] 22.4 mmol/L Normal 21.0-31.0 [facility] Comment on above: Performed By: #### B CHARGING MACHINE OPERATOR, HS TROP, BMP, CK, DIFF CBC ####[address] Creatinine [Mass/Vol] 1.16 mg/dL Normal 0.70-1.30 [facility] Comment on above: Performed By: #### B CHARGING MACHINE OPERATOR, HS TROP, BMP, CK, DIFF CBC ####[place] [address] [place] Creatinine Clr Calc Pharmacy 64.96 Normal [facility] Comment on above: Result Comment: PERF ORMED BY: [facility] [address] [place] [id number] PATHOLOGIST VICE PRESIDENT OF ADVERTISING RADHA BARRON M.D. Performed By: #### B CHARGING MACHINE OPERATOR, HS TROP, BMP, CK, DIFF CBC ####[address] GFR/1.73 sq M.predicted MDRD (S/P/Bld) [Vol rate/Area] mL/min/{1.73_m2} Normal [facility] Comment on above: Performed By: #### B CHARGING MACHINE OPERATOR, HS TROP, BMP, CK, DIFF CBC ####[address] Glucose [Mass/Vol] 95 mg/dL Normal 70-100 [facility] Comment on above: Result Comment: [facility] Glucose Reference Range is dependent on time and content of last meal. Glucose of more than 200 mg/dL in a nonstressed, ambulatory subject supports the diagnosis of Diabetes Mellitus. ADA recommended reference range Performed By: #### B CHARGING MACHINE OPERATOR, HS TROP, BMP, CK, DIFF CBC ####[address] Potassium Normal 3.5-5.1 [facility] Comment on above: Result Comment: Spec imen hemolyzed, redraw requested Performed By: #### B CHARGING MACHINE OPERATOR, HS TROP, BMP, CK, DIFF CBC ####[address] Sodium [Moles/Vol] 142 mmol/L Normal 136-145 [facility] Comment on above: Performed By: #### B CHARGING MACHINE OPERATOR, HS TROP, BMP, CK, DIFF CBC ####[address] Urea nitrogen [Mass/Vol] 20 mg/dL Normal 7-25 [facility] Comment on above: Performed By: #### B CHARGING MACHINE OPERATOR, HS TROP, BMP, CK, DIFF CBC ####[address] [address] [facility] Basophils Auto (Bld) [#/Vol] Ordered By: Naima Boyd on 01-09-2024 Basophils (Bld) [#/Vol] N/A [facility] Basophils/100 WBC Auto (Bld) Ordered By: Naima Bullimore on 01-09-2024 Basophils/100 WBC (Bld) N/A [facility] Basophils/100 WBC Manual cnt (Bld)Ordered By: Naima Godwinimore on 01-09-2024 Basophils/100 WBC (Bld) 0 % 0-2 [facility] [address] angio chest PE protocolon 01-09-2024 CT angio chest PE protocol [facility] [address] [place] [address] [place] [id number] Scan Report Signed Patient: Jeb Riddle MR#: [id number] : 1950 Acct:[id number] Age/Sex: 73 / M ADM Date: 01/09/24 Loc: ER Room: Type: [facility] ER Attending Dr: Copies to: SABA Blankenship [...] no evidence of pulmonary embolism. Mediastinum and Amberen: Within normal limits. Heart: Normal size. No [...] Jeb Collins M.D.01/09/2024 6:17 PM Dictation Location: [place] [address] Transcribed By: KAROLINA 01/09/241816 Dictated By: Jeb Collins II, MD 01/09/241810 Signed By: 01/09/241816 Normal [facility] Calcium [Mass/volume] in Ser um or PlasmaOrdered By: Naima Boyd on 01-09-2024 Calcium [Mass/Vol] 8.7 mg/dL 8.6-10.3 [facility] Carbon dioxide, total [Moles /volume] in Serum or PlasmaOrdered By: Naima Boyd on 01-09-2024 CO2 [Moles/Vol] 22.4 mmol/L 21.0-31.0 [facility] Chloride [Moles/volume] in S pooja or PlasmaOrdered By: Naima Boyd on 01-09-2024 Chloride [Moles/Vol] 109 mmol/L 98-107 [facility] Coagulation Profileon 2023 aPTT Coag (Bld) [Time] 29.1 s Normal 25.1-36.5 [facility] Comment on above: Order Comment: REDRA W Result Comment: A he matocrit value greater than 55% may lead to inaccurate results in coagulation testing. Patients having hematocrit values >55% require a special collection tube for coagulation studies. Please contact the laboratory at [phone] for redraw instructions. Performed By: #### P P, DDIMER ####[place] [id number] [place] [id number] [facility] INR Coag (PPP) [Relative time] 1.0 {INR} Normal [facility] Comment on above: Order Comment: [...] 4.5 Performed By: #### P P, DDIMER ####[place] [id number] [facility] PT Coag (PPP) [Time] 11.9 s Normal 9.0-12.9 [facility] Comment on above: Order Comment: REDRA W Result Comment: A he matocrit value greater than 55% may lead to inaccurate results in coagulation testing. Patients having hematocrit values >55% require a special collection tube for coagulation studies. Please contact the laboratory at [phone] for redraw instructions. Performed By: #### P P, DDIMER ####[place] [id number] [facility] Creatine Kinaseon 01-09-2024 CK [Catalytic activity/Vol] 81 U/L Normal [facility] Comment on above: Performed By: #### B CHARGING MACHINE OPERATOR, HS TROP, BMP, CK, DIFF CBC ####[place] [id number] [facility] Creatine kinase [Enzymatic a ctivity/volume] in Serum or PlasmaOrdered By: Naima Godwinimjeremias on 01-09-2024 CK [Catalytic activity/Vol] 81 U/L - [facility] Creatinine [Mass/volume] in Serum or PlasmaOrdered By: Naima Rutherfordore on 01-09-2024 Creatinine [Mass/Vol] 1.16 mg/dL 0.70-1.30 [facility] D-Dimer High Sensitivityon 0 01-09-2024 D-Dimer High Sensitivity 1905 ng/mL High 0-243 [facility] Comment on above: Order Comment: [...] coagulation studies. Please contact the laboratory at [phone] for redraw instructions. PERFORMED BY: [place] [address] PATHOLOGIST VICE PRESIDENT OF ADVERTISING RADHA BARRON M.D. Performed By: #### P P, DDIMER ####[address] Diff and CBCon 01-09-2024 Basophils/100 WBC (Bld) 0 % Normal 0-2 [facility] Comment on above: Performed By: #### B CHARGING MACHINE OPERATOR, HS TROP, BMP, CK, DIFF CBC ####[place] [id number] [facility] Eosinophils/100 WBC (Bld) 4 % High 1-3 [facility] Comment on above: Performed By: #### B CHARGING MACHINE OPERATOR, HS TROP, BMP, CK, DIFF CBC ####[address] Erythrocyte distribution width (RBC) [Ratio] 14.9 % High 12.0-14.8 [facility] Comment on above: Performed By: #### B CHARGING MACHINE OPERATOR, HS TROP, BMP, CK, DIFF CBC ####[place] [id number] [facility] Hematocrit (Bld) [Volume fraction] 41.9 % Normal 38.8-50.0 [facility] Comment on above: Performed By: #### B CHARGING MACHINE OPERATOR, HS TROP, BMP, CK, DIFF CBC ####[address] Hemoglobin (Bld) [Mass/Vol] 14.1 g/dL Normal 13.0-17.0 [facility] Comment on above: Performed By: #### B CHARGING MACHINE OPERATOR, HS TROP, BMP, CK, DIFF CBC ####[address] Lymphocytes/100 WBC (Bld) 27 % Normal 18-42 [facility] Comment on above: Performed By: #### B CHARGING MACHINE OPERATOR, HS TROP, BMP, CK, DIFF CBC ####[address] MCH (RBC) [Entitic mass] 32.0 pg Normal 27.5-35.2 [facility] Comment on above: Performed By: #### B CHARGING MACHINE OPERATOR, HS TROP, BMP, CK, DIFF CBC ####[address] MCV (RBC) [Entitic vol] 95.1 fL Normal 83.5-101 [facility] Comment on above: Performed By: #### B CHARGING MACHINE OPERATOR, HS TROP, BMP, CK, DIFF CBC ####[address] Mean Corpuscular HGB Conc 33.6 g/dL Normal 32.5-35.6 [facility] Comment on above: Performed By: #### B CHARGING MACHINE OPERATOR, HS TROP, BMP, CK, DIFF CBC ####[address] Monocytes/100 WBC (Bld) 25.58 % High 0.00-20.00 [facility] Comment on above: Result Comment: For adults in ED, MDW > 20.0 may be associated with a higher risk of sepsis during the first 12 hrs of hospital admission Performed By: #### B CHARGING MACHINE OPERATOR, HS TROP, BMP, CK, DIFF CBC ####[address] Monocytes/100 WBC (Bld) 7 % Normal 2-11 [facility] Comment on above: Performed By: #### B CHARGING MACHINE OPERATOR, HS TROP, BMP, CK, DIFF CBC ####[address] Nucleated Red Blood Cell 0 /100{WBC} Normal 0-0 [facility] Comment on above: Performed By: #### B CHARGING MACHINE OPERATOR, HS TROP, BMP, CK, DIFF CBC ####[address] Platelet Estimate Normal Normal Normal [facility] Comment on above: Performed By: #### B CHARGING MACHINE OPERATOR, HS TROP, BMP, CK, DIFF CBC ####[address] Platelet mean volume (Bld) [Entitic vol] 8.6 fL Normal 6.6-10.1 [facility] Comment on above: Performed By: #### B CHARGING MACHINE OPERATOR, HS TROP, BMP, CK, DIFF CBC ####[address] Platelet Morphology Normal Normal Normal [facility] Comment on above: Performed By: #### B CHARGING MACHINE OPERATOR, HS TROP, BMP, CK, DIFF CBC ####[address] Platelets (Bld) [#/Vol] 240 10*3/uL Normal 150-450 [facility] Comment on above: Performed By: #### B CHARGING MACHINE OPERATOR, HS TROP, BMP, CK, DIFF CBC ####[address] Plt Comment SEE COMMENT BELOW Normal [facility] Comment on above: Result Comment: NO C LOTS, NO CLUMPS, SHORT DRAW LFM PERFORMED BY: [facility] [address] [place] [address] PATHOLOGIST VICE PRESIDENT OF ADVERTISING RADHA BARRON M.D. Performed By: #### B CHARGING MACHINE OPERATOR, HS TROP, BMP, CK, DIFF CBC ####[address] RBC (Bld) [#/Vol] 4.41 10*6/uL Normal 3.90-5.60 [facility] Comment on above: Performed By: #### B CHARGING MACHINE OPERATOR, HS TROP, BMP, CK, DIFF CBC ####[address] RBC morphology finding Nom (Bld) Normal Normal Normal [facility] Comment on above: Performed By: #### B CHARGING MACHINE OPERATOR, HS TROP, BMP, CK, DIFF CBC ####[address] Segmented neutrophils/100 WBC (Bld) 62 % Normal 50-70 [facility] Comment on above: Performed By: #### B CHARGING MACHINE OPERATOR, HS TROP, BMP, CK, DIFF CBC ####[address] WBC (Bld) [#/Vol] 7.6 10*3/uL Normal 4.1-10.5 [facility] Comment on above: Performed By: #### B CHARGING MACHINE OPERATOR, HS TROP, BMP, CK, DIFF CBC ####[address] WBC (Bld) [#/Vol] 8.4 10*3/uL Normal 4.1-10.5 [facility] Comment on above: Performed By: #### B CHARGING MACHINE OPERATOR, HS TROP, BMP, CK, DIFF CBC ####[address] ECG 12 lead ECGon 01-09-2024 ECG 12 lead [address] [facility] [address] [place] [address] [place] [address] Electrocardiograph Report Signed Patient: Jeb Riddle MR#: [id number] : 1950 Acct:[id number] Age/Sex: 73 / M ADM Date: 01/09/24 Loc: ER Room: Type: [facility] ER Attending Dr: Ordering Provider: SABA Blankenship [...] By: MUS Signed By Adam Patterson DO 3340 Normal [facility] Eosinophils Auto (Bld) [#/Vo l]Ordered By: Naima Boyd on 01-09-2024 Eosinophils (Bld) [#/Vol] N/A [facility] Eosinophils/100 WBC Auto (Bl d)Ordered By: Naimadevora Rutherfordore on 01-09-2024 Eosinophils/100 WBC (Bld) N/A [facility] Eosinophils/100 WBC Manual c nt (Bld)Ordered By: Naima Boyd on 01-09-2024 Eosinophils/100 WBC (Bld) 4 % 1-3 [facility] Erythrocyte distribution wid th Auto (RBC) [Ratio]Ordered By: Naimadevora Boyd on 01-09-2024 Erythrocyte distribution width (RBC) [Ratio] 14.9 % 12.0-14.8 [facility] Fibrin D-dimer [Presence] in Platelet poor plasma by Latex agglutinationOrdered By: Naima Boyd on 01-09-2024 Fibrin D-dimer LA Ql (PPP) 1905 ng/mL 0-243 [facility] Comment on above: The reference range for [...] coagulation studies. Please contact the laboratory at [phone] for redraw instructions. Glucose [Mass/volume] in Ser um or PlasmaOrdered By: Naima Boyd on 01-09-2024 Glucose [Mass/Vol] 95 mg/dL 70-100 [facility] Comment on above: ADA recommended refe rence rangeRandom Glucose Reference Range is dependent on time and content of last meal. Glucose of more than 200 mg/dL in a nonstressed, ambulatory subject supports the diagnosis of Diabetes Mellitus. Hematocrit Auto (Bld) [Volum e fraction]Ordered By: Naima Boyd on 01-09-2024 Hematocrit (Bld) [Volume fraction] 41.9 % 38.8-50.0 [facility] Hemoglobin [Mass/volume] in BloodOrdered By: Naima Boyd on 01-09-2024 Hemoglobin (Bld) [Mass/Vol] 14.1 g/dL 13.0-17.0 [facility] INR in Platelet poor plasma by Coagulation assayOrdered By: Naima Boyd on 01-09-2024 INR Coag (PPP) [Relative time] 1.0 {INR} [facility] Comment on above: INR Therapeutic Rang [...] RBC Auto (Bld) [#/Vol] 7.6 10*3/uL 4.1-10.5 [facility] Lymphocytes Auto (Bld) [#/Vo l]Ordered By: Naima Boyd on 01-09-2024 Lymphocytes (Bld) [#/Vol] N/A [facility] Lymphocytes/100 WBC Auto (Bl d)Ordered By: Naima Bullimore on 01-09-2024 Lymphocytes/100 WBC (Bld) N/A [facility] Lymphocytes/100 WBC Manual c nt (Bld)Ordered By: Naima Bullimore on 01-09-2024 Lymphocytes/100 WBC (Bld) 27 % 18-42 [facility] MCH Auto (RBC) [Entitic mass ]Ordered By: Naima Bullimore on 01-09-2024 MCH (RBC) [Entitic mass] 32.0 pg 27.5-35.2 [facility] MCHC Auto (RBC) [Mass/Vol]Or dered By: Naima Bullimore on 01-09-2024 MCHC (RBC) [Mass/Vol] 33.6 g/dL 32.5-35.6 [facility] MCV Auto (RBC) [Entitic vol] Ordered By: Naima Bullimore on 01-09-2024 MCV (RBC) [Entitic vol] 95.1 fL 83.5-101 [facility] Monocyte distribution width [Entitic volume] in Blood by AutomatedOrdered By: Naima Bullimore on 01-09-2024 Monocyte distribution width Auto (Bld) [Entitic vol] 25.58 % 0.00-20.00 [facility] Comment on above: For adults in ED, MD W > 20.0 may be associated with a higher risk of sepsis during the first 12 hrs of hospital admission Monocytes Auto (Bld) [#/Vol] Ordered By: Naima Bullimore on 01-09-2024 Monocytes (Bld) [#/Vol] N/A [facility] Monocytes/100 WBC Auto (Bld) Ordered By: Naima Bullimore on 01-09-2024 Monocytes/100 WBC (Bld) N/A [facility] Monocytes/100 WBC Manual cnt (Bld)Ordered By: Naima Bullimore on 01-09-2024 Monocytes/100 WBC (Bld) 7 % 2-11 [facility] Natriuretic peptide B [Mass/ Vol]Ordered By: Naima Bullimore on 01-09-2024 Natriuretic peptide B (Bld) [Mass/Vol] 172.0 pg/mL 5-100 [facility] Neutrophils Auto (Bld) [#/Vo l]Ordered By: Naima Bullimore on 01-09-2024 Neutrophils (Bld) [#/Vol] N/A [facility] Neutrophils/100 WBC Auto (Bl d)Ordered By: Naima Bullimore on 01-09-2024 Neutrophils/100 WBC (Bld) N/A [facility] No Panel InformationOrdered By: Naima Godwinimore on 01-09-2024 Estimated GFR (CKD-EPI) > 60.0 mL/Min [facility] Creatinine Clearance (Chem 64.96 [facility] Platelet Comment See comment below [facility] Comment on above: NO CLOTS, NO CLUMPS, SHORT DRAW LFM Nucleated RBC/100 WBC Manual cnt (Bld) [Ratio]Ordered By: Naimadevora Godwinimore on 01-09-2024 Nucleated RBC/100 WBC (Bld) [Ratio] 0 /100{WBC} 0-0 [facility] Nucleated erythrocytes [Pres ence] in Blood by Automated countOrdered By: Naima Godwinimore on 01-09-2024 Nucleated RBC Auto Ql (Bld) N/A [facility] Platelet adequacy [Presence] in Blood by Light microscopyOrdered By: Naima Godwinimore on 01-09-2024 Platelets LM Ql (Bld) Normal Normal [facility] Platelet mean volume Auto (B ld) [Entitic vol]Ordered By: Naima Godwinimore on 01-09-2024 Platelet mean volume (Bld) [Entitic vol] 8.6 fL 6.6-10.1 [facility] Platelet morphology finding [Identifier] in BloodOrdered By: Naima Bullimore on 01-09-2024 Platelet morphology finding Nom (Bld) Normal Normal [facility] Platelets Auto (Bld) [#/Vol] Ordered By: Naima Bullimore on 01-09-2024 Platelets (Bld) [#/Vol] 240 10*3/uL 150-450 [facility] Potassium [Moles/volume] in Serum or PlasmaOrdered By: Naima Boyd on 01-09-2024 Potassium [Moles/Vol] 3.9 mmol/L 3.5-5.1 [facility] Prothrombin time (PT)Ordered By: Naima Boyd on 01-09-2024 PT Coag (PPP) [Time] 11.9 s 9.0-12.9 [facility] Comment on above: A hematocrit value g reater than 55% may lead to inaccurate results in coagulation testing. Patients having hematocrit values >55% require a special collection tube for coagulation studies. Please contact the laboratory at [phone] for redraw instructions. RBC Auto (Bld) [#/Vol]Ordere d By: Naima Boyd on 01-09-2024 RBC (Bld) [#/Vol] 4.41 10*6/uL 3.90-5.60 [facility] RBC morphologyOrdered By: Sabine Boyd on 01-09-2024 RBC morphology finding Nom (Bld) Normal Normal [facility] Redraw Potassiumon Potassium [Moles/Vol] 3.9 mmol/L Normal 3.5-5.1 [facility] Comment on above: Result Comment: PERF ORMED BY: [facility] [address] [place] [address] PATHOLOGIST VICE PRESIDENT OF ADVERTISING RADHA BARRON M.D. Performed By: #### R TONY K ####[facility] [place] [id number] [facility] Segmented neutrophils/100 WB C Manual cnt (Bld)Ordered By: Naima Boyd on 01-09-2024 Segmented neutrophils/100 WBC (Bld) 62 % 50-70 [facility] Serum or plasma anion gap de terminationOrdered By: Naiam Boyd on 01-09-2024 Anion gap [Moles/Vol] TNP [facility] Comment on above: Test not performed Sodium [Moles/volume] in Ser um or PlasmaOrdered By: Naima Boyd on 01-09-2024 Sodium [Moles/Vol] 142 mmol/L 136-145 [facility] Troponin I High Sensitivityo n 01-09-2024 Troponin I High Sensitivity 13.1 pg/mL Normal 0.0-20.0 [facility] Comment on above: Result Comment: PERF ORMED BY: [facility] [address] [place] [address] PATHOLOGIST VICE PRESIDENT OF ADVERTISING RADHA BARRON M.D. Performed By: #### H S TROP #### [facility] [address] [place] [id number] [facility] Troponin I High Sensitivity 12.5 pg/mL Normal 0.0-20.0 [facility] Comment on above: Result Comment: PERF ORMED BY: [place] [address] PATHOLOGIST VICE PRESIDENT OF ADVERTISING RADHA BARRON M.D. Performed By: #### B CHARGING MACHINE OPERATOR, HS TROP, BMP, CK, DIFF CBC ####[facility] Troponin I.cardiac [Mass/vol ume] in Serum or Plasma by Detection limit <= 0.01 ng/Ordered By: Naima Boyd on 01-09-2024 Troponin I.cardiac DL <= 0.01 ng/mL [Mass/Vol] 13.1 pg/mL 0.0-20.0 [facility] Urea nitrogen [Mass/volume] in Serum or PlasmaOrdered By: Naima Boyd on 01-09-2024 Urea nitrogen [Mass/Vol] 20 mg/dL 7 [facility] WBC Auto (Bld) [#/Vol]Ordere d By: Naima Rutherfordore on 01-09-2024 WBC (Bld) [#/Vol] 8.4 10*3/uL 4.1-10.5 [facility] XR chest 2V*on 01-09-2024 XR chest 2V* [facility] Main [place] [id number] XRay Report Signed Patient: Jeb Riddle MR#: [id number] : 1950 Acct:[id number] Age/Sex: 73 / M ADM Date: 01/09/24 Loc: ER Room: Type: [facility] ER Attending Dr: Copies to: SABA Blankenship [...] Jeb Collins M.D.01/09/2024 4:11 PM Dictation Location: [facility]-- Transcribed By: KAROLINA 01/09/24 1611 Dictated By: Jeb Collins II, MD 01/09/24 1610 Signed By: 01/09/24 1611 Normal [facility] ECG 12 lead ECGon 12-18-2023 ECG 12 lead ECG [facility] [place] [address] Electrocardiograph Report Signed Patient: Jeb Riddle MR#: [id number] : 1950 Acct:[id number] Age/Sex: 73 / M ADM Date: 12/18/23 Loc: ER Room: Type: [facility] ER Attending Dr: Ordering Provider: Marie Garrison [...] was found Confirmed by RAMIRO CORTEZ DO ([id number]) on 12/18/2023 4:44:01 PM Referred By: Electronically Signed By:RAMIRO CORTEZ DO Transcribed By: MUS Signed By Ramiro Cortez DO 12/[address] [facility] Office Visiton 12-09-2023 Follow-up visit [id number] Jeb Riddle Myles 1950 M Date Provider Department Center 12/09/2023 JESSICA JAMISON MISSY Nicole Family History Problem Relation Age of Onset Diabetes Mother Coronary artery disease Mother Heart attack Father Diabetes Father Coronary artery disease Father Family Status - Relation Status Age at Mother Father Level of Service:56158 [place] OFFICE/OUTPATIENT ESTABLISHED MOD MDM 30 MIN Reason for Visit and Comments: Follow-up [752444] - 6 months Normal [facility] Office Visiton 06-07-2023 Follow-up visit [id number] Jeb Riddle Myles 1950 M Date Provider Department Center 06/07/2023 SHIV SAAVEDRA Family History Problem Relation Age of Onset Diabetes Mother Coronary artery disease Mother Heart attack Father Diabetes Father Coronary artery disease Father Family Status - Relation Status Age at Mother Father Level of Service:60270 [place] OFFICE/OUTPATIENT NEW HIGH MDM 60-74 MINUTES Normal [facility] Office Visiton 05-27-2023 Follow-up visit [id number] Jeb Riddle Myles 1950 M Date Provider Department Center 05/27/2023 JESSICA JAMISON MISSY Nicole Family History Problem Relation Age of Onset Diabetes Mother Coronary artery disease Mother Heart attack Father Diabetes Father Coronary artery disease Father Family Status - Relation Status Age at Mother Father Level of Service:14070 [place] OFFICE/OUTPATIENT ESTABLISHED MOD MDM 30-39 MIN Reason for Visit and Comments: Follow-up [025548] Coronary Artery Disease [187] Normal [facility] Activated partial thrombopla stin time (aPTT) in platelet poor plasma by coagulation aOrdered By: Ramiro Cortez on 03-03-2023 aPTT Coag (PPP) [Time] 29.7 s 25.1-36.5 [facility] B-Type Natriuretic Peptideon 03-03-2023 Natriuretic peptide B (Bld) [Mass/Vol] 52.0 pg/mL Normal 5-100 [facility] Comment on above: Result Comment: PERF ORMED BY: [facility] [address] [place] [address] PATHOLOGIST VICE PRESIDENT OF ADVERTISING RADHA BARRON M.D. Performed By: #### C BC, CK, PT, PTT, BMP, HS TROP, BNP ####[address] Basic Metabolic Panelon 02-13 Anion gap [Moles/Vol] 10.6 mmol/L Normal 6.0-15.0 [facility] Comment on above: Performed By: #### C BC, CK, PT, PTT, BMP, HS TROP, BNP ####[address] Calcium [Mass/Vol] 8.6 mg/dL Normal 8.6-10.3 [facility] Comment on above: Performed By: #### C BC, CK, PT, PTT, BMP, HS TROP, BNP ####[address] Chloride [Moles/Vol] 108 mmol/L High 98-107 [facility] Comment on above: Performed By: #### C BC, CK, PT, PTT, BMP, HS TROP, BNP ####[address] CO2 [Moles/Vol] 24.6 mmol/L Normal 21.0-31.0 [facility] Comment on above: Performed By: #### C BC, CK, PT, PTT, BMP, HS TROP, BNP ####[address] Creatinine [Mass/Vol] 1.19 mg/dL Normal 0.70-1.30 [facility] Comment on above: Performed By: #### C BC, CK, PT, PTT, BMP, HS TROP, BNP ####[address] Creatinine Clr Calc Pharmacy 55.29 Normal [facility] Comment on above: Result Comment: PERF ORMED BY: [place] [address] PATHOLOGIST VICE PRESIDENT OF ADVERTISING RADHA BARRON M.D. Performed By: #### C BC, CK, PT, PTT, BMP, HS TROP, BNP ####[place] [address] [place] [id number] [facility] GFR/1.73 sq M.predicted MDRD (S/P/Bld) [Vol rate/Area] mL/min/{1.73_m2} Normal [facility] Comment on above: Performed By: #### C BC, CK, PT, PTT, BMP, HS TROP, BNP ####[address] Glucose [Mass/Vol] 93 mg/dL Normal 70-100 [facility] Comment on above: Result Comment: [facility] Glucose Reference Range is dependent on time and content of last meal. Glucose of more than 200 mg/dL in a nonstressed, ambulatory subject supports the diagnosis of Diabetes Mellitus. ADA recommended reference range Performed By: #### C BC, CK, PT, PTT, BMP, HS TROP, BNP ####[address] Potassium [Moles/Vol] 4.2 mmol/L Normal 3.5-5.1 [facility] Comment on above: Performed By: #### C BC, CK, PT, PTT, BMP, HS TROP, BNP ####[address] Sodium [Moles/Vol] 139 mmol/L Normal 136-145 [facility] Comment on above: Performed By: #### C BC, CK, PT, PTT, BMP, HS TROP, BNP ####[address] Urea nitrogen [Mass/Vol] 17 mg/dL Normal 7-25 [facility] Comment on above: Performed By: #### C BC, CK, PT, PTT, BMP, HS TROP, BNP ####[address] Basophils Auto (Bld) [#/Vol] Ordered By: Ramiro Cortez on 03-03-2023 Basophils (Bld) [#/Vol] 0.0 10*3/uL 0.0-0.2 [facility] Basophils/100 WBC Auto (Bld) Ordered By: Ramiro Cortez on 03-03-2023 Basophils/100 WBC (Bld) 0.4 % . [facility] Calcium [Mass/volume] in Ser um or PlasmaOrdered By: Ramiro Cortez on 03-03-2023 Calcium [Mass/Vol] 8.6 mg/dL 8.6-10.3 [facility] Carbon dioxide, total [Moles /volume] in Serum or PlasmaOrdered By: Ramiro Cortez on 03-03-2023 CO2 [Moles/Vol] 24.6 mmol/L 21.0-31.0 [facility] Chloride [Moles/volume] in S pooja or PlasmaOrdered By: Ramiro Cortez on 03-03-2023 Chloride [Moles/Vol] 108 mmol/L 98-107 [facility] Complete Blood Count Auto Di ffon 03-03-2023 Basophils (Bld) [#/Vol] 0.0 10*3/uL Normal 0.0-0.2 [facility] Comment on above: Result Comment: PERF ORMED BY: [place] [address] PATHOLOGIST VICE PRESIDENT OF ADVERTISING RADHA BARRON M.D. Performed By: #### C BC, CK, PT, PTT, BMP, HS TROP, BNP #### [facility] [address] [place] [address] Basophils/100 WBC (Bld) 0.4 % Normal . [facility] Comment on above: Performed By: #### C BC, CK, PT, PTT, BMP, HS TROP, BNP #### [facility] [address] [place] [address] Eosinophils (Bld) [#/Vol] 0.2 10*3/uL Normal 0.0-0.45 [facility] Comment on above: Performed By: #### C BC, CK, PT, PTT, BMP, HS TROP, BNP #### [address] Eosinophils/100 WBC (Bld) 2.4 % Normal . [facility] Comment on above: Performed By: #### C BC, CK, PT, PTT, BMP, HS TROP, BNP #### [address] Erythrocyte distribution width (RBC) [Ratio] 13.0 % Normal 12.0-14.8 [facility] Comment on above: Performed By: #### C BC, CK, PT, PTT, BMP, HS TROP, BNP #### [address] Hematocrit (Bld) [Volume fraction] 38.3 % Low 38.8-50.0 [facility] Comment on above: Performed By: #### C BC, CK, PT, PTT, BMP, HS TROP, BNP #### [address] Hemoglobin (Bld) [Mass/Vol] 12.9 g/dL Low 13.0-17.0 [facility] Comment on above: Performed By: #### C BC, CK, PT, PTT, BMP, HS TROP, BNP #### [address] Lymphocytes (Bld) [#/Vol] 2.6 10*3/uL Normal 1.00-4.8 [facility] Comment on above: Performed By: #### C BC, CK, PT, PTT, BMP, HS TROP, BNP #### [address] Lymphocytes/100 WBC (Bld) 28.3 % Normal . [facility] Comment on above: Performed By: #### C BC, CK, PT, PTT, BMP, HS TROP, BNP #### [address] MCH (RBC) [Entitic mass] 30.8 pg Normal 27.5-35.2 [facility] Comment on above: Performed By: #### C BC, CK, PT, PTT, BMP, HS TROP, BNP #### [address] MCV (RBC) [Entitic vol] 91.9 fL Normal 83.5-101 [facility] Comment on above: Performed By: #### C BC, CK, PT, PTT, BMP, HS TROP, BNP #### [address] Mean Corpuscular HGB Conc 33.6 g/dL Normal 32.5-35.6 [facility] Comment on above: Performed By: #### C BC, CK, PT, PTT, BMP, HS TROP, BNP #### [address] Monocytes (Bld) [#/Vol] 0.6 10*3/uL Normal 0.0-0.8 [facility] Comment on above: Performed By: #### C BC, CK, PT, PTT, BMP, HS TROP, BNP #### [address] Monocytes/100 WBC (Bld) 24.67 % High 0.00-20.00 [facility] Comment on above: Result Comment: For adults in ED, MDW > 20.0 may be associated with a higher risk of sepsis during the first 12 hrs of hospital admission Performed By: #### C BC, CK, PT, PTT, BMP, HS TROP, BNP #### [address] Monocytes/100 WBC (Bld) 6.5 % Normal . [facility] Comment on above: Performed By: #### C BC, CK, PT, PTT, BMP, HS TROP, BNP #### [address] Neutrophils (Bld) [#/Vol] 5.7 10*3/uL Normal 1.8-7.7 [facility] Comment on above: Performed By: #### C BC, CK, PT, PTT, BMP, HS TROP, BNP #### [address] Neutrophils/100 WBC (Bld) 62.4 % Normal . [facility] Comment on above: Performed By: #### C BC, CK, PT, PTT, BMP, HS TROP, BNP #### [place] [address] [place] NRBC% 0.1 /100{WBC} Normal 0-0.5 [facility] Comment on above: Performed By: #### C BC, CK, PT, PTT, BMP, HS TROP, BNP #### [address] Platelet mean volume (Bld) [Entitic vol] 8.2 fL Normal 6.6-10.1 [facility] Comment on above: Performed By: #### C BC, CK, PT, PTT, BMP, HS TROP, BNP #### [facility] [address] Platelets (Bld) [#/Vol] 234 10*3/uL Normal 150-450 [facility] Comment on above: Performed By: #### C BC, CK, PT, PTT, BMP, HS TROP, BNP #### [address] RBC (Bld) [#/Vol] 4.17 10*6/uL Normal 3.90-5.60 [facility] Comment on above: Performed By: #### C BC, CK, PT, PTT, BMP, HS TROP, BNP #### [address] WBC (Bld) [#/Vol] 9.2 10*3/uL Normal 4.1-10.5 [facility] Comment on above: Performed By: #### C BC, CK, PT, PTT, BMP, HS TROP, BNP #### [address] Creatine Kinaseon 03-03-2023 CK [Catalytic activity/Vol] 125 U/L Normal 30-223 [facility] Comment on above: Performed By: #### C BC, CK, PT, PTT, BMP, HS TROP, BNP ####[facility] [place] [address] Creatine kinase [Enzymatic a ctivity/volume] in Serum or PlasmaOrdered By: Ramiro Cortez on 03-03-2023 CK [Catalytic activity/Vol] 125 U/L 30-223 [facility] Creatinine [Mass/volume] in Serum or PlasmaOrdered By: Ramiro Cortez on 03-03-2023 Creatinine [Mass/Vol] 1.19 mg/dL 0.70-1.30 [facility] ECG 12 lead ECGon 03-03-2023 ECG 12 lead ECG [facility] Main [address] [address] Electrocardiograph Report Signed Patient: Jeb Riddle MR#: [id number] : 1950 Acct:[id number] Age/Sex: 72 / M ADM Date: 03/03/23 Loc: ER Room: Type: [facility] ER Attending Dr: Ordering Provider: Ramiro [...] ECGs available Confirmed by RAMIRO CORTEZ DO ([id number]) on 03/03/2023 8:14:27 PM Referred By: Electronically Signed By:RAMIRO CORTEZ DO Transcribed By: MUS Signed By Ramiro Cortez DO 03/03 Normal [facility] Eosinophils Auto (Bld) [#/Vo l]Ordered By: Ramiro Cortez on 03-03-2023 Eosinophils (Bld) [#/Vol] 0.2 10*3/uL 0.0-0.45 [facility] Eosinophils/100 WBC Auto (Bl d)Ordered By: Ramiro Cortez on 03-03-2023 Eosinophils/100 WBC (Bld) 2.4 % . [facility] Erythrocyte distribution wid th Auto (RBC) [Ratio]Ordered By: Ramiro Cortez on 03-03-2023 Erythrocyte distribution width (RBC) [Ratio] 13.0 % 12.0-14.8 [facility] Glucose [Mass/volume] in Ser um or PlasmaOrdered By: Ramiro Cortez on 03-03-2023 Glucose [Mass/Vol] 93 mg/dL 70-100 [facility] Comment on above: ADA recommended refe rence rangeRandom Glucose Reference Range is dependent on time and content of last meal. Glucose of more than 200 mg/dL in a nonstressed, ambulatory subject supports the diagnosis of Diabetes Mellitus. Hematocrit Auto (Bld) [Volum e fraction]Ordered By: Ramiro Cortez on 03-03-2023 Hematocrit (Bld) [Volume fraction] 38.3 % 38.8-50.0 [facility] Hemoglobin [Mass/volume] in BloodOrdered By: Ramiro Cortez on 03-03-2023 Hemoglobin (Bld) [Mass/Vol] 12.9 g/dL 13.0-17.0 [facility] Laboratory - CoagulationOrde red By: Ramiro Cortez on 03-03-2023 PT Coag (PPP) [Time] 12.3 s 9.0-12.9 [facility] Leukocytes [#/volume] correc ava for nucleated erythrocytes in Blood by Automated counOrdered By: Ramiro Cortez on 03-03-2023 WBC corrected for nucl RBC Auto (Bld) [#/Vol] 9.2 10*3/uL 4.1-10.5 [facility] Lymphocytes Auto (Bld) [#/Vo l]Ordered By: Ramiro Cortez on 03-03-2023 Lymphocytes (Bld) [#/Vol] 2.6 10*3/uL 1.00-4.8 [facility] Lymphocytes/100 WBC Auto (Bl d)Ordered By: Ramiro Cortez on 03-03-2023 Lymphocytes/100 WBC (Bld) 28.3 % . [facility] MCH Auto (RBC) [Entitic mass ]Ordered By: Ramiro Cortez on 03-03-2023 MCH (RBC) [Entitic mass] 30.8 pg 27.5-35.2 [facility] MCHC Auto (RBC) [Mass/Vol]Or dered By: Rmairo Cortez on 03-03-2023 MCHC (RBC) [Mass/Vol] 33.6 g/dL 32.5-35.6 [facility] MCV Auto (RBC) [Entitic vol] Ordered By: Ramiro Cortez on 03-03-2023 MCV (RBC) [Entitic vol] 91.9 fL 83.5-101 [facility] Monocyte distribution width [Entitic volume] in Blood by AutomatedOrdered By: Ramiro Cortez on 03-03-2023 Monocyte distribution width Auto (Bld) [Entitic vol] 24.67 % 0.00-20.00 [facility] Comment on above: For adults in ED, MD W > 20.0 may be associated with a higher risk of sepsis during the first 12 hrs of hospital admission Monocytes Auto (Bld) [#/Vol] Ordered By: Ramiro Cortez on 03-03-2023 Monocytes (Bld) [#/Vol] 0.6 10*3/uL 0.0-0.8 [facility] Monocytes/100 WBC Auto (Bld) Ordered By: Ramiro Cortez on 03-03-2023 Monocytes/100 WBC (Bld) 6.5 % . [facility] Natriuretic peptide B [Mass/ Vol]Ordered By: Ramiro Cortez on 03-03-2023 Natriuretic peptide B (Bld) [Mass/Vol] 52.0 pg/mL 5-100 [facility] Neutrophils Auto (Bld) [#/Vo l]Ordered By: Ramiro Cortez on 03-03-2023 Neutrophils (Bld) [#/Vol] 5.7 10*3/uL 1.8-7.7 [facility] Neutrophils/100 WBC Auto (Bl d)Ordered By: Ramiro Cortez on 03-03-2023 Neutrophils/100 WBC (Bld) 62.4 % . [facility] No Panel InformationOrdered By: Ramiro Cortez on 03-03-2023 Estimated GFR (CKD-EPI) > 60.0 mL/Min [facility] Creatinine Clearance (Chem 55.29 [facility] Nucleated erythrocytes [Pres ence] in Blood by Automated countOrdered By: Ramiro Cortez on 03-03-2023 Nucleated RBC Auto Ql (Bld) 0.1 /100{WBC} 0-0.5 [facility] Partial Thromboplastin Timeo n 03-03-2023 aPTT Coag (Bld) [Time] 29.7 s Normal 25.1-36.5 [facility] Comment on above: Result Comment: PERF ORMED BY: [facility] [address] [place] [address] PATHOLOGIST VICE PRESIDENT OF ADVERTISING RADHA BARRON M.D. Performed By: #### C BC, CK, PT, PTT, BMP, HS TROP, BNP #### [facility] [address] Platelet mean volume Auto (B ld) [Entitic vol]Ordered By: Ramiro Cortez on 03-03-2023 Platelet mean volume (Bld) [Entitic vol] 8.2 fL 6.6-10.1 [facility] Platelet poor plasma interna tional normalized ratio (INR) by coagulation assay (relatOrdered By: Ramiro Cortez on 03-03-2023 INR Coag (PPP) [Relative time] 1.1 {INR} [facility] Comment on above: INR Therapeutic Rang [...] 03-03-2023 Platelets (Bld) [#/Vol] 234 10*3/uL 150-450 [facility] Potassium [Moles/volume] in Serum or PlasmaOrdered By: Ramiro Cortez on 03-03-2023 Potassium [Moles/Vol] 4.2 mmol/L 3.5-5.1 [facility] Prothrombin Time INRon 03-03 INR Coag (PPP) [Relative time] 1.1 {INR} Normal [facility] Comment on above: Result Comment: [...] PT, PTT, BMP, HS TROP, BNP #### [facility] [address] PT Coag (PPP) [Time] 12.3 s Normal 9.0-12.9 [facility] Comment on above: Performed By: #### C BC, CK, PT, PTT, BMP, HS TROP, BNP #### [facility] [address] RBC Auto (Bld) [#/Vol]Ordere d By: Ramiro Cortez on 03-03-2023 RBC (Bld) [#/Vol] 4.17 10*6/uL 3.90-5.60 [facility] Serum or plasma anion gap de terminationOrdered By: Ramiro Cortez on 03-03-2023 Anion gap [Moles/Vol] 10.6 mmol/L 6.0-15.0 [facility] Sodium [Moles/volume] in Ser um or PlasmaOrdered By: Ramiro Cortez on 03-03-2023 Sodium [Moles/Vol] 139 mmol/L 136-145 [facility] Troponin I High Sensitivityo n 03-03-2023 Troponin I High Sensitivity 7.6 pg/mL Normal 0.0-20.0 [facility] Comment on above: Result Comment: PERF ORMED BY: [place] [address] PATHOLOGIST VICE PRESIDENT OF ADVERTISING RADHA BARRON M.D. Performed By: #### C BC, CK, PT, PTT, BMP, HS TROP, BNP ####[facility] Troponin I.cardiac [Mass/vol ume] in Serum or Plasma by Detection limit <= 0.01 ng/Ordered By: Ramiro Cortez on 03-03-2023 Troponin I.cardiac DL <= 0.01 ng/mL [Mass/Vol] 7.6 pg/mL 0.0-20.0 [facility] Urea nitrogen [Mass/volume] in Serum or PlasmaOrdered By: Ramiro Cortez on 03-03-2023 Urea nitrogen [Mass/Vol] 17 mg/dL 7-25 [facility] WBC Auto (Bld) [#/Vol]Ordere d By: Ramiro Cortez on 03-03-2023 WBC (Bld) [#/Vol] 9.2 10*3/uL 4.1-10.5 [facility] XR chest 2V*on 03-03-2023 XR chest 2V* [facility] Main [place] [address] [place] [address] XRay Report Signed Patient: Jeb Riddle MR#: [id number] : 1950 Acct:[id number] Age/Sex: 72 / M ADM Date: 03/03/23 Loc: ER Room: Type: [facility] ER Attending Dr: Copies to: Ramiro Cortez [...] Ivonne Zavala M.D.03/03/2023 12:46 PM Dictation Location: [place] [address] Transcribed By: [facility] 03/03/23 1246 Dictated By: Ivonne Zavala MD 03/03/23 1245 Signed By: 03/03/23 1246 Normal [facility] CBC AUTO DIFFon 01-11-2023 BASO # 0.0 103/ul Normal 0.0-0.[address] [facility] Comment on above: Performed By: #### C BC #### [facility] [address] [place] [address] [address] Andrea Garcia Basophils/100 WBC (Bld) 0.0 % Critically low 0.2-2.[address] [facility] Comment on above: Performed By: #### C BC #### [facility] [address] [place] [address] [address] Andrea Garcia EO # 0.0 103/ul Normal 0.0-0.7 [facility] Comment on above: Performed By: #### C BC #### [facility] [address] [place] [address] Dr. Andrea Garcia Eosinophils/100 WBC (Bld) 0.0 % Critically low 0.9-7.[address] [facility] Comment on above: Performed By: #### C BC #### [facility] [address] [place] [address] Dr. Andrea Garcia Erythrocyte distribution width (RBC) [Ratio] 12.8 % Normal 11.0-15.[address] [facility] Comment on above: Performed By: #### C BC #### [facility] [address] [place] [address] Dr. Andrea Garcia Hematocrit (Bld) [Volume fraction] 36.2 % Critically low 42.0-54.[address] [facility] Comment on above: Performed By: #### C BC #### [facility] [address] [place] [address] Dr. Andrea Garcia Hemoglobin (Bld) [Mass/Vol] 12.8 g/dL Critically low 14.0-18.[address] [facility] Comment on above: Performed By: #### C BC #### [facility] [address] [place] [address] Dr. Andrea Garcia IG # 0.03 10e3/ul Normal 0.00-0.[address] [facility] Comment on above: Performed By: #### C BC #### [facility] [address] [place] [address] Dr. Andrea Garcia IG % 0.4 % Normal 0.0-0.5 [facility] Comment on above: Performed By: #### C BC #### [facility] [address] [place] [address] Dr. Andrea Garcia LYMPH # 1.1 103/ul Critically low 1.2-3.[address] [facility] Comment on above: Performed By: #### C BC #### [facility] [address] [place] [address] Dr. Andrea Garcia Lymphocytes/100 WBC (Bld) 15.3 % Critically low 20.5-60.[address] [facility] Comment on above: Performed By: #### C BC #### [facility] [address] [place] [address] Dr. Andrea Garcia MANUAL DIFF REQ NO Normal [facility] Comment on above: Performed By: #### C BC #### [facility] [address] [place] [address] Dr. Andrea Garcia MCH (RBC) [Entitic mass] 31.3 pg Normal 25.9-34.[address] [facility] Comment on above: Performed By: #### C BC #### [facility] [address] [place] [address] Dr. Andrea Garcia MCHC (RBC) [Mass/Vol] 35.4 g/dL Critically high 29.9-35.[address] [facility] Comment on above: Performed By: #### C BC #### [facility] [address] [place] [address] Dr. Andrea Garcia MCV (RBC) [Entitic vol] 88.5 fL Normal 80.0-94.[address] [facility] Comment on above: Performed By: #### C BC #### [facility] [address] [place] [address] Dr. Andrea Garcia MONO # 0.1 103/ul Critically low 0.3-0.[address] [facility] Comment on above: Performed By: #### C BC #### [facility] [address] [place] [address] Dr. Andrea Garcia Monocytes/100 WBC (Bld) 0.7 % Critically low 1.7-12.[address] [facility] Comment on above: Performed By: #### C BC #### [facility] [address] [place] [address] Dr. Andrea Garcia NEUT # 6.0 103/ul Normal 1.4-6.[address] [facility] Comment on above: Performed By: #### C BC #### [facility] [address] [place] [address] Dr. Andrea Garcia Neutrophils/100 WBC (Bld) 83.6 % Critically high 43.0-75.[address] [facility] Comment on above: Performed By: #### C BC #### [facility] [address] [place] [address] Dr. Andrea Garcia Platelet mean volume (Bld) [Entitic vol] 10.1 fL Normal 9.5-13.[address] [facility] Comment on above: Performed By: #### C BC #### [facility] [address] [place] [address] Dr. Andrea Garcia PLT 216 103/ul Normal 150-[address] [facility] Comment on above: Performed By: #### C BC #### [facility] [address] [place] [address] Dr. Andrea Garcia RBC 4.09 106/ul Critically low 4.70-6.[address] [facility] Comment on above: Performed By: #### C BC #### [facility] [address] [place] [address] Dr. Andrea Garcia WBC 7.2 103/ul Normal 4.0-11.[address] [facility] Comment on above: Performed By: #### C BC #### [facility] [address] [place] [address] Dr. Andrea Garcia PROF 14(COMP METB)on 023 Albumin [Mass/Vol] 2.8 g/dL Critically low 3.4-5.0 [facility] Comment on above: Performed By: #### C MP #### [facility] [address] [place] [address] Dr. Andrea Garcia Albumin/Globulin [Mass ratio] 0.8 {ratio} Normal [facility] Comment on above: Performed By: #### C MP #### [facility] [address] [place] [address] Dr. Andrea Garcia ALP [Catalytic activity/Vol] 64 U/L Normal 46-116 [facility] Comment on above: Performed By: #### C MP #### [facility] [address] [place] [address] Dr. Andrea Garcia ALT [Catalytic activity/Vol] 27 U/L Normal 16-63 [facility] Comment on above: Performed By: #### C MP #### [facility] [address] [address] [address] Andrea Garcia Anion gap [Moles/Vol] 12.9 mmol/L Normal [facility] Comment on above: Performed By: #### C MP #### [facility] [address] [address] [address] Andrea Garcia AST [Catalytic activity/Vol] 16 U/L Normal 15-[address] [facility] Comment on above: Performed By: #### C MP #### [facility] [address] [address] [address] Andrea Garcia Bilirubin [Mass/Vol] 0.4 mg/dL Normal 0.2-1.[address] [facility] Comment on above: Performed By: #### C MP #### [facility] [address] [address] [address] Andrea Garcia Calcium [Mass/Vol] 8.2 mg/dL Critically low 8.5-10.1 [facility] Comment on above: Performed By: #### C MP #### [facility] [address] [address] [address] Andrea Garcia Chloride [Moles/Vol] 107 mmol/L Normal 98-[address] [facility] Comment on above: Performed By: #### C MP #### [facility] [address] [address] [address] Andrea Garcia CO2 [Moles/Vol] 24.2 mmol/L Normal 21.0-32.[address] [facility] Comment on above: Performed By: #### C MP #### [facility] [address] [address] [address] Andrea Garcia Creatinine [Mass/Vol] 1.07 mg/dL Normal 0.70-1.[address] [facility] Comment on above: Performed By: #### C MP #### [facility] [address] [address] [address] Andrea Garcia EGFR-AF [place] >60 Normal >=[address] [facility] Comment on above: Performed By: #### C MP #### [facility] [address] [place] [address] Dr. Andrea Garcia EGFR-NON AF [place] >60 Normal >=[address] [facility] Comment on above: Performed By: #### C MP #### [facility] [address] [address] [address] Andrea Garcia Globulin (S) [Mass/Vol] 3.5 g/dL Normal [facility] Comment on above: Performed By: #### C MP #### [facility] [address] [place] [address] Dr. Andrea Garcia Glucose [Mass/Vol] 164 mg/dL Critically high 74-106 [facility] Comment on above: Performed By: #### C MP #### [facility] [address] [place] [address] Dr. Andrea Garcia Potassium [Moles/Vol] 4.1 mmol/L Normal 3.5-5.[address] [facility] Comment on above: Performed By: #### C MP #### [facility] [address] [place] [address] Dr. Andrea Garcia Protein [Mass/Vol] 6.3 g/dL Critically low 6.4-8.2 [facility] Comment on above: Performed By: #### C MP #### [facility] [address] [place] [address] Dr. Andrea Garcia Sodium [Moles/Vol] 140 mmol/L Normal 136-[address] [facility] Comment on above: Performed By: #### C MP #### [facility] [address] [place] [address] Dr. Andrea Garcia Urea nitrogen [Mass/Vol] 16.0 mg/dL Normal 7.0-18.[address] [facility] Comment on above: Performed By: #### C MP #### [facility] [address] [place] [address] Dr. Andrea Garcia Urea nitrogen/Creatinine [Mass ratio] 15.0 mg/mg Normal [facility] Comment on above: Performed By: #### C MP #### [facility] [address] [place] [address] Dr. Andrea Garcia XR KUB 1 VIEWon [...] by: ROBERT DAVENPORT Date: 2023-01-11 06:[address] [facility] AMYLASEon 01-10-2023 Amylase [Catalytic activity/Vol] 56 U/L Normal 25-[address] [facility] Comment on above: Performed By: #### C MADM, CMP, DAMIEN, LIPA ####[facility] [address] [address]Dr. Andrea Garcia CARDIAC JEB 3-6on CK [Catalytic activity/Vol] 92 U/L Normal 39-[address] [facility] Comment on above: Performed By: #### C MREP #### [facility] [address] [address] [address] Andrea Garcia CK.MB [Mass/Vol] 1.66 ng/mL Normal <=3.[address] [facility] Comment on above: Performed By: #### C MREP #### [facility] [address] [address] [address] Andrea Garcia HSTROP 12.8 pg/mL Normal 4.0-76.[address] [facility] Comment on above: Result Comment: CUT- OFF POINTS HAVE BEEN ESTABLISHED BASED ON THE FOURTH UNIVERSAL DEFINITIONS OF MYOCARDIAL INFARCTION. THE UPPER REFERENCE LIMIT (URL) OF TROPONIN, DEFINED THE 99TH PERCENTILE OF cTnI DISTRIBUTION IN A REFERENCE POPULATION, HAS BEEN CONFIRMED THE DECISION THRESHOLD FOR AK DIAGNOSIS. Performed By: #### C MREP #### [facility] [address] [address] [address] Andrea Garcia CK [Catalytic activity/Vol] 72 U/L Normal 39-308 [facility] Comment on above: Performed By: #### C MREP #### [facility] [address] [address] [address] Andrea Garcia CK.MB [Mass/Vol] 1.89 ng/mL Normal <=3.60 [facility] Comment on above: Performed By: #### C MREP #### [facility] [address] [address] [address] Andrea Garcia HSTROP 13.5 pg/mL Normal 4.0-76.1 [facility] Comment on above: Result Comment: CUT- OFF POINTS HAVE BEEN ESTABLISHED BASED ON THE FOURTH UNIVERSAL DEFINITIONS OF MYOCARDIAL INFARCTION. THE UPPER REFERENCE LIMIT (URL) OF TROPONIN, DEFINED THE 99TH PERCENTILE OF cTnI DISTRIBUTION IN A REFERENCE POPULATION, HAS BEEN CONFIRMED THE DECISION THRESHOLD FOR AK DIAGNOSIS. Performed By: #### C MREP #### [facility] [address] [address] [address] Andrea Garcia CARDIAC JEB ADMITon 023 CK [Catalytic activity/Vol] 85 U/L Normal 39-[address] [facility] Comment on above: Performed By: #### C MADM, CMP, DAMIEN, LIPA ####[facility] [address] [address]Dr. Andrea Garcia CK.MB [Mass/Vol] 1.80 ng/mL Normal <=3.60 [facility] Comment on above: Performed By: #### C MADM, CMP, DAMIEN, LIPA ####[facility] [address] [id number] Garcia HSTROP 15.7 pg/mL Normal 4.0-76.1 [facility] Comment on above: Result Comment: CUT- OFF POINTS HAVE BEEN ESTABLISHED BASED ON THE FOURTH UNIVERSAL DEFINITIONS OF MYOCARDIAL INFARCTION. THE UPPER REFERENCE LIMIT (URL) OF TROPONIN, DEFINED THE 99TH PERCENTILE OF cTnI DISTRIBUTION IN A REFERENCE POPULATION, HAS BEEN CONFIRMED THE DECISION THRESHOLD FOR AK DIAGNOSIS. Performed By: #### C MADM, CMP, DAMIEN, LIPA ####[facility] [address] [address]Dr. Andrea Garcia MIQUEL 61 ng/mL Normal 16-96 [facility] Comment on above: Performed By: #### C MADM, CMP, DAMIEN, LIPA ####[facility] [address] [id number]. Andrea Garcia CBC AUTO DIFFon 01-10-2023 BASO # 0.0 103/ul Normal 0.0-0.[address] [facility] Comment on above: Performed By: #### C BC ####[facility] [address] [id number]. Andrea Garcia Basophils/100 WBC (Bld) 0.5 % Normal 0.2-2.0 [facility] Comment on above: Performed By: #### C BC ####[facility] [address] [address]Dr. Andrea Garcia EO # 0.4 103/ul Normal 0.0-0.7 [facility] Comment on above: Performed By: #### C BC ####[facility] [address] [address]Dr. Andrea Garcia Eosinophils/100 WBC (Bld) 5.9 % Normal 0.9-7.0 [facility] Comment on above: Performed By: #### C BC ####[facility] [address] [place], [place] [address]Dr. Andrea Garcia Erythrocyte distribution width (RBC) [Ratio] 13.0 % Normal 11.0-15.0 [facility] Comment on above: Performed By: #### C BC ####[facility] [address] [place], [place] [address]Dr. Andrea Garcia Hematocrit (Bld) [Volume fraction] 40.0 % Critically low 42.0-54.0 [facility] Comment on above: Performed By: #### C BC ####[facility] [address] [place], [place] [address]Dr. Andrea Garcia Hemoglobin (Bld) [Mass/Vol] 13.4 g/dL Critically low 14.0-18.0 [facility] Comment on above: Performed By: #### C BC ####[facility] [address] [place], [place] [address]Dr. Kaylendahlia Garcia IG # 0.01 10e3/ul Normal 0.00-0.[address] [facility] Comment on above: Performed By: #### C BC ####[facility] [address] [address]DrWilder Kaylendahlia Garcia IG % 0.2 % Normal 0.0-0.[address] [facility] Comment on above: Performed By: #### C BC ####[facility] [address] [place], [place] [address]DrWilder Garcia LYMPH # 2.2 103/ul Normal 1.2-3.[address] [facility] Comment on above: Performed By: #### C BC ####[facility] [address] [place], [place] [address]DrWilder Kaylendahlia Garcia Lymphocytes/100 WBC (Bld) 33.2 % Normal 20.5-60.[address] [facility] Comment on above: Performed By: #### C BC ####[facility] [address] [place], [place] [address]DrWilder Garcia MANUAL DIFF REQ NO Normal [facility] Comment on above: Performed By: #### C BC ####[facility] [address] [place], [place] [address]DrWilder Kaylendahlia Garcia MCH (RBC) [Entitic mass] 30.5 pg Normal 25.9-34.[address] [facility] Comment on above: Performed By: #### C BC ####[facility] [address] [place], [place] [address]DrWilder Kaylendahlia Garcia MCHC (RBC) [Mass/Vol] 33.5 g/dL Normal 29.9-35.[address] [facility] Comment on above: Performed By: #### C BC ####[facility] [address] [place], [place] [address]DrWilder Kaylendahlia Garcia MCV (RBC) [Entitic vol] 90.9 fL Normal 80.0-94.[address] [facility] Comment on above: Performed By: #### C BC ####[facility] [address] [place], [place] [address]DrWilder Garcia MONO # 0.4 103/ul Normal 0.3-0.8 [facility] Comment on above: Performed By: #### C BC ####[facility] [address] [id number]. Andrea Garcia Monocytes/100 WBC (Bld) 6.0 % Normal 1.7-12.0 [facility] Comment on above: Performed By: #### C BC ####[facility] [address] [id number]. Andrea Garcia NEUT # 3.5 103/ul Normal 1.4-6.5 [facility] Comment on above: Performed By: #### C BC ####[facility] [address] [id number]. Andrea Garcia Neutrophils/100 WBC (Bld) 54.2 % Normal 43.0-75.0 [facility] Comment on above: Performed By: #### C BC ####[facility] [address] [address]Dr. Andrea Garcia Platelet mean volume (Bld) [Entitic vol] 9.7 fL Normal 9.5-13.5 [facility] Comment on above: Performed By: #### C BC ####[facility] [address] [address]Dr. Andrea Garcia PLT 225 103/ul Normal 150-450 [facility] Comment on above: Performed By: #### C BC ####[facility] [address] [address]Dr. Andrea Garcia RBC 4.40 106/ul Critically low 4.70-6.10 [facility] Comment on above: Performed By: #### C BC ####[facility] [address] [id number]. Andrea Garcia WBC 6.5 103/ul Normal 4.0-11.0 [facility] Comment on above: Performed By: #### C BC ####[facility] [id number]. Andrea Garcia CT ABD/PELV W CONon 01-11-20 [...] ADITYA OATES Date: 2023-01-10 07:41 Normal [facility] CULTURE BLOODon 01-10-2023 Microscopic examination of blood, culture Culture Observations: NO GROWTH AT 36-48 HOURS. FINAL TO FOLLOW. Normal [facility] Comment on above: Performed By: #### B LDCX2 ####[facility] [address] [address]Dr. Andrea Garcia Microscopic examination of blood, culture Culture Observations: NO GROWTH AT 36-48 HOURS. FINAL TO FOLLOW. Normal [facility] Comment on above: Performed By: #### B LDCX1 ####[facility] [address] [address]Dr. Andrea SCHAEFER URINE PROFILEon 3 Bilirubin Ql (U) Negative Normal NEGATIVE [facility] Comment on above: Performed By: #### U MICRO, ERUR #### [facility] [address] [address] [address] Andrea Garcia Clarity (U) CLEAR Normal CLEAR [facility] Comment on above: Performed By: #### U MICRO, ERUR #### [facility] [address] [address] [address] Andrea Garcia Color (U) LT. YELLOW Normal YELLOW [facility] Comment on above: Performed By: #### U MICRO, ERUR #### [facility] [address] [address] [address] Andrea Garcia ERUAHD A micrscopic examina tion will be performed if indicated. Normal [facility] Comment on above: Performed By: #### U MICRO, ERUR #### [facility] [address] [place] [address] Dr. Andrea Garcia Glucose Ql (U) Negative Normal NEGATIVE [facility] Comment on above: Performed By: #### U MICRO, ERUR #### [facility] [address] [place] [address] Dr. Andrea Garcia Hemoglobin Ql (U) TRACE-INTACT Abnormal NEGATIVE [facility] Comment on above: Performed By: #### U MICRO, ERUR #### [facility] [address] [address] [address] Andrea Garcia Ketones Ql (U) Negative Normal NEGATIVE [facility] Comment on above: Performed By: #### U MICRO, ERUR #### [facility] [address] [place] [address] Dr. Andrea Garcia LEUKOCYTES Negative Normal NEGATIVE [facility] Comment on above: Performed By: #### U MICRO, ERUR #### [facility] [address] [place] [address] Dr. Andrea Garcia Nitrite Ql (U) Negative Normal NEGATIVE [facility] Comment on above: Performed By: #### U MICRO, ERUR #### [facility] [address] [place] [address] Dr. Andrea Garcia pH (U) 5.5 [pH] Normal 5-9 [facility] Comment on above: Performed By: #### U MICRO, ERUR #### [facility] [address] [place] [address] Dr. Andrea Garcia SPEC GRAVITY 1.015 Normal 1.005-<=1. [address] [facility] Comment on above: Performed By: #### U MICRO, ERUR #### [facility] [address] [place] [address] Dr. Andrea Garcia UA PROTEIN Negative Normal NEGATIVE/ TRACE [facility] Comment on above: Performed By: #### U MICRO, ERUR #### [facility] [address] [place] [address] Dr. Andrea Garcia UR MICRO IND INDICATED Normal [facility] Comment on above: Performed By: #### U MICRO, ERUR #### [facility] [address] [place] [address] Dr. Andrea Garcia Urobilinogen Qn (U) 0.2 {Temo'U}/dL Normal 0.2 - 1. [address] [facility] Comment on above: Performed By: #### U MICRO, ERUR #### [facility] [address] [place] [address] Dr. Andrea Garcia LACTATE/LACTIC ACIDon 2022 Lactate [Moles/Vol] 0.8 mmol/L Normal 0.4-2.[address] [facility] Comment on above: Performed By: #### L ACT #### [facility] [address] [place] [address] Dr. Andrea Garcia Lactate [Moles/Vol] 0.9 mmol/L Normal 0.4-2.[address] [facility] Comment on above: Performed By: #### L ACT #### [facility] [address] [place] [address] Dr. Andrea Garcia LIPASEon 01-10-2023 Lipase [Catalytic activity/Vol] 71.0 U/L Critically low 73.0-393.[address] [facility] Comment on above: Performed By: #### C MADM, CMP, DAMIEN, LIPA ####[facility] [address] [address]Dr. Andrea Garcia PROF 14(COMP METB)on 023 Albumin [Mass/Vol] 3.2 g/dL Critically low 3.4-5.0 [facility] Comment on above: Performed By: #### C MADM, CMP, DAMIEN, LIPA ####[facility] [address] [address]Dr. Andrea Garcia Albumin/Globulin [Mass ratio] 0.9 {ratio} Normal [facility] Comment on above: Performed By: #### C MADM, CMP, DAMIEN, LIPA ####[facility] [address] [address]Dr. Andrea Garcia ALP [Catalytic activity/Vol] 68 U/L Normal 46-[address] [facility] Comment on above: Performed By: #### C MADM, CMP, DAMIEN, LIPA ####[facility] [address] [address]Dr. Andrea Garcia ALT [Catalytic activity/Vol] 30 U/L Normal 16-[address] [facility] Comment on above: Performed By: #### C MADM, CMP, DAMIEN, LIPA ####[facility] [address] [place], [place] [address]Dr. Andrea Garcia Anion gap [Moles/Vol] 14.2 mmol/L Normal [facility] Comment on above: Performed By: #### C MADM, CMP, DAMIEN, LIPA ####[facility] [address] [address]Dr. Andrea Garcia AST [Catalytic activity/Vol] 18 U/L Normal 15-[address] [facility] Comment on above: Performed By: #### C MADM, CMP, DAMIEN, LIPA ####[facility] [address] [address]Dr. Andrea Garcia Bilirubin [Mass/Vol] 0.5 mg/dL Normal 0.2-1.[address] [facility] Comment on above: Performed By: #### C MADM, CMP, DAMIEN, LIPA ####[facility] [address] [address]Dr. Andrea Garcia Calcium [Mass/Vol] 8.5 mg/dL Normal 8.5-10.[address] [facility] Comment on above: Performed By: #### C MADM, CMP, DAMIEN, LIPA ####[facility] [address] [address]Dr. Andrea Garcia Chloride [Moles/Vol] 108 mmol/L Critically high 98-[address] [facility] Comment on above: Performed By: #### C MADM, CMP, DAMIEN, LIPA ####[facility] [address] [address]Dr. Andrea Garcia CO2 [Moles/Vol] 22.1 mmol/L Normal 21.0-32.[address] [facility] Comment on above: Performed By: #### C MADM, CMP, DAMIEN, LIPA ####[facility] [address] [address]Dr. Andrea Garcia Creatinine [Mass/Vol] 1.06 mg/dL Normal 0.70-1.[address] [facility] Comment on above: Performed By: #### C MADM, CMP, DAMIEN, LIPA ####[facility] [address] [address]Dr. Andrea Garcia EGFR-AF [place] >60 Normal >=[address] [facility] Comment on above: Performed By: #### C MADM, CMP, DAMIEN, LIPA ####[facility] [address] [place], [place] [address]Dr. Andrea Garcia EGFR-NON AF [place] >60 Normal >=[address] [facility] Comment on above: Performed By: #### C MADM, CMP, DAMIEN, LIPA ####[facility] [id number] [place] [address]Dr. Andrea Garcia Globulin (S) [Mass/Vol] 3.5 g/dL Normal [facility] Comment on above: Performed By: #### C MADM, CMP, DAMIEN, LIPA ####[facility] [id number] [place] [address]Dr. Andrea Garcia Glucose [Mass/Vol] 110 mg/dL Critically high 74-106 [facility] Comment on above: Performed By: #### C MADM, CMP, DAMIEN, LIPA ####[facility] [id number] [place] [address]Dr. Andrea Garcia Potassium [Moles/Vol] 4.3 mmol/L Normal 3.5-5.1 [facility] Comment on above: Performed By: #### C MADM, CMP, DAMIEN, LIPA ####[facility] [id number] [place] [address]Dr. Andrea Garcia Protein [Mass/Vol] 6.7 g/dL Normal 6.4-8.2 [facility] Comment on above: Performed By: #### C MADM, CMP, DAMIEN, LIPA ####[facility] [id number] [place] [address]Dr. Andrea Garcia Sodium [Moles/Vol] 140 mmol/L Normal 136-145 [facility] Comment on above: Performed By: #### C MADM, CMP, DAMIEN, LIPA ####[facility] [id number] [place] [address]Dr. Andrea Garcia Urea nitrogen [Mass/Vol] 20.0 mg/dL Critically high 7.0-18.0 [facility] Comment on above: Performed By: #### C MADM, CMP, DAMIEN, LIPA ####[facility] [address] [place] [address]Dr. Andrea Garcia Urea nitrogen/Creatinine [Mass ratio] 18.9 mg/mg Normal [facility] Comment on above: Performed By: #### C MADM, CMP, DAMIEN, LIPA ####[facility] [address] [place] [address]Dr. Andrea Garcia URINE MICROSCOPIC ONLYon BACTERIA NONE SEEN Normal NONE SEEN [facility] Comment on above: Performed By: #### U MICRO, ERUR #### [facility] [address] [address] [address] Andrea Garcia Bacteria identified Cx Nom (U) NOT INDICATED Normal [facility] Comment on above: Performed By: #### U MICRO, ERUR #### [facility] [address] [address] [address] Andrea Garcia CAST NONE SEEN Normal NONE SEEN [facility] Comment on above: Performed By: #### U MICRO, ERUR #### [facility] [address] [place] [address] Dr. Andrea Garcia Crystals LM Nom (Urine sed) NONE SEEN Normal NONE SEEN [facility] Comment on above: Performed By: #### U MICRO, ERUR #### [facility] [address] [place] [address] Dr. Andrea Garcia Epithelial cells LM Ql (Urine sed) NONE SEEN Normal NONE SEEN /RARE [facility] Comment on above: Performed By: #### U MICRO, ERUR #### [facility] [address] [place] [address] Dr. Andrea Garcia MUCOUS NONE SEEN Normal NONE SEEN [facility] Comment on above: Performed By: #### U MICRO, ERUR #### [facility] [address] [place] [address] Dr. Andrea Garcia RBC 0-2 Normal 0-2 [facility] Comment on above: Performed By: #### U MICRO, ERUR #### [facility] [address] [place] [address] Dr. Andrea Garcia WBC 0-2 Abnormal NONE SEEN [facility] Comment on above: Performed By: #### U MICRO, ERUR #### [facility] [address] [place] [address] Dr. Andrea Garcia XR CHEST 1 Von 01-10-2023 XR CHEST 1 V Exam: Radiographs: X R CHEST 1 V Reason for exam: Nausea/vomiting Comparison: None IMPRESSION: Negative chest. Electronically authenticated by: ADITYA OATES Date: 2023-01-10 07:42 Normal [facility] MRI Soft Tissue Neck w/o + [...] by KENN RAPHAEL on 10/06/2021 1605 Normal [facility] CT Soft Tissue Neck w/ Contr ast*on [...] by Que Greene on 09/29/2021 1013 Normal [facility] Specialist Vital Signs Date Time Vital Sign Value Performing Clinician Faci lity 01-09-2024 19:01-0400 Diastolic blood pressure 99 mm[Hg] MD Rodriguez Godwin Work Phone: [facility] 01-09-2024 19:01-0400 Heart rate 84 /min MD Rodriguez Godwin Work Phone: [facility] 01-09-2024 19:01-0400 Respiratory rate 18 /min MD Rodriguez Godwin Work Phone: [facility] 01-09-2024 19:01-0400 SaO2% (BldA) [Mass fraction] 97 % MD Rodriguez Godwin Work Phone: [facility] 01-09-2024 19:01-0400 Systolic blood pressure 190 mm[Hg] MD Rodriguez Godwin Work Phone: [facility] 01-09-2024 14:29-0400 Body height 187.96 cm MD Rodriguez Godwin Work Phone: [facility] 01-09-2024 14:29-0400 Body temperature 98.3 [degF] MD Rodriguez Godwin Work Phone: [facility] 01-09-2024 14:29-0400 Body weight 83 kg MD Rodriguez Godwin Work Phone: [facility] 12-18-2023 13:10-0400 Heart rate 85 /min MD Rodriguez Godwin Work Phone: [facility] 12-18-2023 13:09-0400 Body temperature 97.9 [degF] MD Rodriguez Godwin Work Phone: [facility] 12-18-2023 13:09-0400 Diastolic blood pressure 77 mm[Hg] MD Rodriguez Godwin Work Phone: [facility] 12-18-2023 13:09-0400 Respiratory rate 18 /min MD Rodriguez Godwin Work Phone: [facility] 12-18-2023 13:09-0400 SaO2% (BldA) [Mass fraction] 97 % MD Rodriguez Godwin Work Phone: [facility] 12-18-2023 13:09-0400 Systolic blood pressure 161 mm[Hg] MD Rodriguez Godwin Work Phone: [facility] 12-18-2023 13:06-0400 Body height 186.69 cm MD Rodriguez Godwin Work Phone: [facility] 12-18-2023 13:06-0400 Body weight 81 kg MD Rodriguez Godwin Work Phone: [facility] 03-03-2023 13:30-0400 Diastolic blood pressure 100 mm[Hg] MD Rodriguez Godwin Work Phone: [facility] 03-03-2023 13:30-0400 Heart rate 59 /min MD Rodriguez Godwin Work Phone: [facility] 03-03-2023 13:30-0400 Respiratory rate 18 /min MD Rodriguez Godwin Work Phone: [facility] 03-03-2023 13:30-0400 SaO2% (BldA) [Mass fraction] 99 % MD Rodriguez Godwin Work Phone: [facility] 03-03-2023 13:30-0400 Systolic blood pressure 160 mm[Hg] MD Rodriguez Godwin Work Phone: [facility] 03-03-2023 11:36-0400 Body height 175.26 cm MD Rodriguez Godwin Work Phone: [facility] 03-03-2023 11:36-0400 Body temperature 98 [degF] MD Rodriguez Godwin Work Phone: [facility] 03-03-2023 11:36-0400 Body weight 84.3 kg MD Rodriguez Godwin Work Phone: [facility] Encounters Encounter Date Encounter Type Care Provider Facility Start: 04-06-2024 End: 04-06-2024 [facility] Start: 01-09-2024 End: 01-09-2024 Emergency department patient visit Rodriguez Godwin Facility:[facility] Start: 01-09-2024 End: 01-09-2024 Emergency department patient visit MD Rodriguez Godwin Work Phone: [facility] Work Phone: Start: 12-18-2023 End: 12-18-2023 Emergency department patient visit Marie Phil Meli Facility:[facility] Start: 12-18-2023 End: 12-18-2023 Emergency department patient visit MD Rodriguez Godwin Work Phone: [facility] Work Phone: Start: 12-09-2023 End: 12-09-2023 ambulatory [facility] Start: 06-07-2023 End: 06-07-2023 ambulatory [facility] Start: 05-27-2023 End: 05-27-2023 ambulatory [facility] Start: 03-03-2023 End: 03-03-2023 Emergency department patient visit Ramiro Cortez Facility:[facility] Start: 03-03-2023 End: 03-03-2023 Emergency department patient visit MD Rodriguez Godwin Work Phone: [facility] Work Phone: Start: 01-10-2023 End: 01-11-2023 Evaluation and management of inpatient DR DOCTOR CROCKER Facility:[facility]1 Procedures Date Procedure Procedure Detail Performing Clinician Start: 01-09-2024 CT angiography of thorax MD Rodriguez Godwin Work Phone: Start: 01-09-2024 Plain chest X-ray MD Valdivia Work Phone: Start: 03-03-2023 Plain chest X-ray MD Valdivia Work Phone: Plan of Treatment Date Care Activity Detail Author Start: 12-18-2023 [facility] Patient Education [facility] Work Phone: Patient referral [facility] Work Phone: Payers Date Payer Category Payer Self-pay [id number] 1960 Medicare [id number] 1950 Unknown [id number] Unknown [id number] Unknown [id number] Unknown [id number] Social History Date Type Detail Facility Start: 03-03-2023 End: 01-09-2024 Tobacco smoking status NHIS Ex-smoker (finding) [facility] Start: 1950 Sex Assigned At Male F [facility] Progress note 04-06-2024 Note Date & Type Note Facility 04-06-2024 Note [facility] Subjective Jeb Riddle is a 73 y.o. year old male patient here for a follow up echo from January, he was amitted to [facility], for chest pain a couple weeks ago and had another echo. He had a lipid panel yesterday. At last appointment his statin was changed. 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 He still rides his bike to [employer] everyday, still active. Patient Active Problem List Diagnosis Unstable angina (CMS/HCC) Uncontrolled hypertension Syncope and collapse Aortic valve regurgitation, nonrheumatic Nonrheumatic mitral valve regurgitation Diastolic dysfunction, left ventricle Chest pain Pain in limb Non-sustained ventricular tachycardia (CMS/HCC) VT (ventricular tachycardia) (CMS/HCC) Crohn's disease (CMS/HCC) Eloped from emergency department Mild congestive heart failure (CMS/HCC) Family History Problem Relation Name Age [...] measures, and to remain on beta-florin therapy. Recently he developed a pulmonary embolism and DVT in early March 2024. He was admitted to the hospital at [facility] and was started on anticoagulation therapy. Today he reports that he has been doing well. He denies significant chest pain or shortness of breath. No leg edema. He reports that he has not been sedentary and kept being active and is surprised that he had a DVT. It started as pain in the calf. Review of Systems Cardiovascular: Positive for chest pain (right sided). Negative for claudication, cyanosis, dyspnea on exertion, irregular heartbeat, leg swelling, near-syncope, orthopnea, palpitations, paroxysmal nocturnal dyspnea and syncope. Neurological: Positive for dizziness. All other systems reviewed and are negative. Objective Visit Vitals BP 143/78 (BP Location: Right arm, Patient Position: Sitting) Pulse 76 Ht 1.88 m (6' 2 ) Wt 81.6 kg (180 lb) SpO2 97% BMI 23.11 kg/m??? Smoking Status Former BSA 2.06 m??? Physical Exam Constitutional: Appearance: He is [...] Behavior is cooperative. Judgment: Judgment normal. Allergies Allergies Allergen Reactions Atorvastatin Other myalgias Medications Current Outpatient Medications: apixaban (Eliquis) 5 mg tablet, every 12 (twelve) hours., Disp: , Rfl: cloNIDine (Catapres) 0.1 mg tablet, 0.1 mg Twice daily at 6am and 6pm., Disp: , Rfl: ezetimibe (Zetia) 10 mg [...] the morning., Disp: 90 tablet, Rfl: 3 LORazepam (Ativan) 1 mg tablet, every 12 (twelve) hours., Disp: , Rfl: magnesium 30 mg tablet, Take 30 mg by mouth in the morning and at bedtime., Disp: , Rfl: mesalamine (Delzicol) [address] capsule, Take 2 capsules by mouth in the morning and at bedtime., Disp: , Rfl: metoprolol succinate XL (more content not included)... [facility] Progress note 12-09-2023 Note Date & Type Note Facility 12-09-2023 Note 8K can you read, out of the so I can make changes in [facility] [facility] Subjective Jeb Riddle is a [...] presented to the emergency room at the [facility] and investigation including a CT scan [...] Rfl: 3 prav (more content not included)... [facility] Progress note 06-07-2023 Note Date & Type Note Facility 06-07-2023 Note [facility] Consult Note Reason for visit: NSVT [...] Heart Sounds: norm (more content not included)... [facility] Progress note 05-27-2023 Note Date & Type Note Facility 05-27-2023 Note [facility] Heart [facility] Vascular Center [...] 04/06/2023 396 QTC CALCULATION(BAZETT) 04/06/2023 456 P [facility] 04/06/2023 79 R-[facility] 04/06/2023 75 T Wave [facility] 04/06/2023 73 Imaging and other tests Cardiac catheterization 04/06/2023: Impression/Findings: Coronary angiogram shows non-obstructive coronary artery disease. Plan: Medical therapy for (more content not included)... [facility] Evaluation note Note Date & Type Note Facility Evaluation note No assessment information availa [facility] Work Phone: Hospital Discharge instructions Note Date & Type Note Facility Hospital Discharge instructions Additional Instructions Continue Pepcid once or twice a day as needed [place] diet Follow-up with your family doctor for recheck Return to the ER for worsening pain shortness of breath fever or any other concerns [facility] Work Phone: Summary Purpose Family [...] section and content) DATE CREATED AUTHOR 10/07/2021 [facility] Me dical Specialist DATE CREATED AUTHOR AUTHOR'S ORGANIZ ATION 01/21/2023 [facility] DATE CREATED AUTHOR AUTHOR'S ORGANIZ ATION 01/09/2024 [facility] DATE CREATED AUTHOR AUTHOR'S ORGANIZ ATION 04/08/2024 [facility] Care Teams (unrecognized sec tion and [...] January 09, 2024 End: January 09, 2024 [facility] Provider Active Start: January [...] BE BASED ON THE PRIMARY CLINICAL RECORDS. [facility] [employer] [facility]. provides no warranty or guarantee of the accuracy or completeness of information in this document.
[2024-04-12 15:27] LABS: Fibrinogen 401 mg/dL (200-400)
[2024-04-14 01:07] LABS: Lupus Reflex Interpretation Comment: (.); PTT-LA 32.6 sec (0.0-43.5); dRVVT Confirm 0.9 ratio (0.8-1.2); dRVVT Mix 42.8 sec (0.0-40.4)
[2024-04-14 02:07] LABS: Antithrombin Activity 119 % (75-135); Protein C-Functional 120 % (73-180); Protein S-Functional 95 % (63-140)
== END 2024-04-12 13:02 | disposition home or self-care (01) ==
LOC: LAB 13:05
PROVIDERS: Family Provider Family Medicine; PCP Family Medicine; Visit Provider Internal Medicine Interventional Cardiology
DX: I26.99 Other pulmonary embolism without acute cor pulmonale (principal)
CPT/HCPCS: 36415; 81241; 85210; 85240; 85245; 85246; 85300; 85303; 85306; 85384; 85415; 85420; 85597; 85598; 85610; 85613; 85670; 85730; 85732; 86146; 86147

== ENCOUNTER 2024-04-20 11:40 | Outpatient (OUT) | payer MEDICARE, OTHER, SELFPAY ==
--- OUTSIDE RECORDS SUMMARY | 2024-04-20 11:50 | XMS_ITS | CCD ---
Author Organization [facility] Care Team Providers Care Hedis Analyst Name Role Phone DR BEHZAD CROCKER Primary Care Unavailable DANIEL ., JUNI Attending Unavailable DANIEL ., JUNI Admitting Unavailable DR ROBERT DAVENPORT V Consulting Unavailable PTIER GROSSMAN Consulting Unavailable DANIEL ., JUNI Consulting Unavailable DIAB ., GRAYSON Consulting Unavailable ADITYA OATES Consulting Unavailable MD Rodriguez Godwin Primary Care Provider [phone] DO Ramiro Cortez Emergency Provider MD Rodriguez Godwin Primary Care Provider [phone] KYA Garrison Emergency Provider Deb, FAMILY PROGRAM SPECIALIST-BC Naima Phelan Emergency Provider Rodriguez Godwin Primary [...] Propensity to adverse reactions 03-03-20 Gastrointestinal Upset [facility] (1 source) atorvastatin; Translations: [ATORVASTATIN] Drug Allergy 04-06-20 [facility] Repository Medications Current Medications Medication [...] disease (2 sources) Atherosclerotic heart disease of [place] coronary artery without angina pectoris; Translations: [Atherosclerotic heart disease of [place] coronary artery without angina pectoris] Onset: 12-09-2023 Chronic Essential hypertension (3 sources) Essential (primary) hypertension; Translations: [ESSENTIAL PRIMARY HYPERTENSION] Onset: 01-12-2023 Chronic Other aftercare (1 source) senior care (current) use of systemic steroids; Translations: [PRISON USE OF SYSTEMIC STEROIDS] Onset: 01-12-2023 Episodic Other aftercare (1 source) Other long chain beamer (current) drug therapy; Translations: [OTH TEST INSPECTION ENGINEER CURRENT DRUG THERAPY] Onset: 01-12-2023 Episodic Other [...] Name Value Interpretation Reference Range Facility 36on 04-18-2024 36 From: Jessica muñoz MD Sent: 04/18/2024 12:32 PM EDT To: Yuridia Nuñez MA Subject: RE: Scan Please inform him that blood testing for clotting disorder is negative. He should follow up with Dr Godwin for cancer screening. Pt has been notified [facility] Office Visiton 04-06-2024 Follow-up visit [id number] Jeb Riddle 1950 M Date Provider Department Center 04/06/2024 JESSICA JAMISON MISSY [facility] Family History Problem Relation Age of Onset Diabetes Mother Coronary artery disease Mother Heart attack Father Diabetes Father Coronary artery disease Father Family Status - Relation Status Age at Mother Father Level of Service:23449 OR OFFICE/OUTPATIENT ESTABLISHED MOD MDM 30 MIN [facility] 36on 02-17-2024 36 Patient called back and said he is taking meds as prescribed at last visit with Dr. Forrester. I made him apt with Dr. Forrester end of Mar since he is not here in Apr. [facility] 36on 02-15-2024 36 Regarding echo from 02/02/2024: MD Yuridia Herman MA Has he been taking meds as I recommended at last visit? 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 He should come for a visit in 3 months. LM w/ sister Mary to return my call. [facility] Activated partial thrombopla stin time (aPTT) in platelet poor plasma by coagulation aOrdered By: Naima Boyd on 01-09-2024 aPTT Coag (PPP) [Time] 29.1 s 25.1-36.5 [facility] Comment on above: A hematocrit value g reater than 55% may lead to inaccurate results in coagulation testing. Patients having hematocrit values >55% require a special collection tube for coagulation studies. Please contact the laboratory at [phone] for redraw instructions. B-Type Natriuretic Peptideon 01-09-2024 Natriuretic peptide B (Bld) [Mass/Vol] 172.0 pg/mL High 5-100 [facility] Comment on above: Result Comment: PERF ORMED BY: [facility] [address] [place] [address] PATHOLOGIST DELINQUENT TAX COLLECTOR RADHA BARRON M.D. Performed By: #### B HUMAN RESOURCES RECEPTIONIST, HS TROP, BMP, CK, DIFF CBC ####[address] Basic Metabolic Panelon 12-14 Anion gap [Moles/Vol] Not performed Normal 6.0-15.0 [facility] Comment on above: Performed By: #### B HUMAN RESOURCES RECEPTIONIST, HS TROP, BMP, CK, DIFF CBC ####[address] Calcium [Mass/Vol] 8.7 mg/dL Normal 8.6-10.3 [facility] Comment on above: Performed By: #### B HUMAN RESOURCES RECEPTIONIST, HS TROP, BMP, CK, DIFF CBC ####[address] Chloride [Moles/Vol] 109 mmol/L High 98-107 [facility] Comment on above: Performed By: #### B HUMAN RESOURCES RECEPTIONIST, HS TROP, BMP, CK, DIFF CBC ####[address] CO2 [Moles/Vol] 22.4 mmol/L Normal 21.0-31.0 [facility] Comment on above: Performed By: #### B HUMAN RESOURCES RECEPTIONIST, HS TROP, BMP, CK, DIFF CBC ####[place] [address] [place] [id number] [facility] Creatinine [Mass/Vol] 1.16 mg/dL Normal 0.70-1.30 [facility] Comment on above: Performed By: #### B HUMAN RESOURCES RECEPTIONIST, HS TROP, BMP, CK, DIFF CBC ####[place] [id number] [facility] Creatinine Clr Calc Pharmacy 64.96 Normal [facility] Comment on above: Result Comment: PERF ORMED BY: [facility] [address] [place] [address] PATHOLOGIST DELINQUENT TAX COLLECTOR RADHA BARRON M.D. Performed By: #### B HUMAN RESOURCES RECEPTIONIST, HS TROP, BMP, CK, DIFF CBC ####[address] GFR/1.73 sq M.predicted MDRD (S/P/Bld) [Vol rate/Area] mL/min/{1.73_m2} Normal [facility] Comment on above: Performed By: #### B HUMAN RESOURCES RECEPTIONIST, HS TROP, BMP, CK, DIFF CBC ####[address] Glucose [Mass/Vol] 95 mg/dL Normal 70-100 [facility] Comment on above: Result Comment: [place] Glucose Reference Range is dependent on time and content of last meal. Glucose of more than 200 mg/dL in a nonstressed, ambulatory subject supports the diagnosis of Diabetes Mellitus. ADA recommended reference range Performed By: #### B HUMAN RESOURCES RECEPTIONIST, HS TROP, BMP, CK, DIFF CBC ####[place] [id number] [facility] Potassium Normal 3.5-5.1 [facility] Comment on above: Result Comment: Spec imen hemolyzed, redraw requested Performed By: #### B HUMAN RESOURCES RECEPTIONIST, HS TROP, BMP, CK, DIFF CBC ####[place] [id number] [facility] Sodium [Moles/Vol] 142 mmol/L Normal 136-145 [facility] Comment on above: Performed By: #### B HUMAN RESOURCES RECEPTIONIST, HS TROP, BMP, CK, DIFF CBC ####[facility] [address] [place] [id number] [facility] Urea nitrogen [Mass/Vol] 20 mg/dL Normal 7-25 [facility] Comment on above: Performed By: #### B HUMAN RESOURCES RECEPTIONIST, HS TROP, BMP, CK, DIFF CBC ####[facility] [id number] [place] [id number] [facility] Basophils Auto (Bld) [#/Vol] Ordered By: Naima Bullimore on 01-09-2024 Basophils (Bld) [#/Vol] N/A [facility] Basophils/100 WBC Auto (Bld) Ordered By: Naima Bullimore on 01-09-2024 Basophils/100 WBC (Bld) N/A [facility] Basophils/100 WBC Manual cnt (Bld)Ordered By: Naima Boyd on 01-09-2024 Basophils/100 WBC (Bld) 0 % 0-2 [facility] CT angio chest PE protocolon 01-09-2024 CT angio chest PE protocol [facility] Main [place] [address] [place] [address] CT Scan Report Signed Patient: Jeb Riddle MR#: [id number] : 1950 Acct:[id number] Age/Sex: 73 / M ADM Date: 01/09/24 Loc: ER Room: Type: [facility] ER Attending Dr: Copies to: SABA [...] Jeb Collins M.D.01/09/2024 6:17 PM Dictation Location: [place] [address] Transcribed By: [facility] 01/09/241816 Dictated By: Jeb Collins II, MD 01/09/241810 Signed By: 01/09/241816 Normal [facility] Calcium [Mass/volume] in Ser um or PlasmaOrdered By: Naima Boyd on 01-09-2024 Calcium [Mass/Vol] 8.7 mg/dL 8.6-10.3 [facility] Carbon dioxide, total [Moles /volume] in Serum or PlasmaOrdered By: Naima Boyd on 01-09-2024 CO2 [Moles/Vol] 22.4 mmol/L 21.0-31.0 [facility] Chloride [Moles/volume] in S pooja or PlasmaOrdered By: Naima Boyd on 01-09-2024 Chloride [Moles/Vol] 109 mmol/L 98-107 [facility] Coagulation Profileon 2023 aPTT Coag (Bld) [Time] 29.1 s Normal 25.1-36.5 [facility] Comment on above: Order Comment: REDRA W Result Comment: A he matocrit value greater than 55% may lead to inaccurate results in coagulation testing. Patients having hematocrit values >55% require a special collection tube for coagulation studies. Please contact the laboratory at [phone] for redraw instructions. Performed By: #### P P, DDIMER ####[place] [id number] [facility] INR Coag (PPP) [Relative time] 1.0 {INR} Normal [facility] Comment on above: Order Comment: [...] 4.5 Performed By: #### P P, DDIMER ####[place] [id number] [facility] PT Coag (PPP) [Time] 11.9 s Normal 9.0-12.9 [facility] Comment on above: Order Comment: REDRA W Result Comment: A he matocrit value greater than 55% may lead to inaccurate results in coagulation testing. Patients having hematocrit values >55% require a special collection tube for coagulation studies. Please contact the laboratory at [phone] for redraw instructions. Performed By: #### P P, DDIMER ####[place] [id number] [facility] Creatine Kinaseon 01-09-2024 CK [Catalytic activity/Vol] 81 U/L Normal - [facility] Comment on above: Performed By: #### B HUMAN RESOURCES RECEPTIONIST, HS TROP, BMP, CK, DIFF CBC ####[place] [id number] [facility] Creatine kinase [Enzymatic a ctivity/volume] in Serum or PlasmaOrdered By: Naima Boyd on 01-09-2024 CK [Catalytic activity/Vol] 81 U/L 30-223 [facility] Creatinine [Mass/volume] in Serum or PlasmaOrdered By: Naima Boyd on 01-09-2024 Creatinine [Mass/Vol] 1.16 mg/dL 0.70-1.30 [facility] D-Dimer High Sensitivityon 0 01-09-2024 D-Dimer High Sensitivity 1905 ng/mL High 0-243 [facility] Comment on above: Order Comment: [...] coagulation studies. Please contact the laboratory at [phone] for redraw instructions. PERFORMED BY: [facility] [address] [place] [address] PATHOLOGIST DELINQUENT TAX COLLECTOR RADHA BARRON M.D. Performed By: #### P P, DDIMER ####[place] [id number] [facility] Diff and CBCon 01-09-2024 Basophils/100 WBC (Bld) 0 % Normal 0-2 [facility] Comment on above: Performed By: #### B HUMAN RESOURCES RECEPTIONIST, HS TROP, BMP, CK, DIFF CBC ####[place] [id number] [facility] Eosinophils/100 WBC (Bld) 4 % High 1-3 [facility] Comment on above: Performed By: #### B HUMAN RESOURCES RECEPTIONIST, HS TROP, BMP, CK, DIFF CBC ####[place] [id number] [facility] Erythrocyte distribution width (RBC) [Ratio] 14.9 % High 12.0-14.8 [facility] Comment on above: Performed By: #### B HUMAN RESOURCES RECEPTIONIST, HS TROP, BMP, CK, DIFF CBC ####[address] Hematocrit (Bld) [Volume fraction] 41.9 % Normal 38.8-50.0 [facility] Comment on above: Performed By: #### B HUMAN RESOURCES RECEPTIONIST, HS TROP, BMP, CK, DIFF CBC ####[address] Hemoglobin (Bld) [Mass/Vol] 14.1 g/dL Normal 13.0-17.0 [facility] Comment on above: Performed By: #### B HUMAN RESOURCES RECEPTIONIST, HS TROP, BMP, CK, DIFF CBC ####[address] Lymphocytes/100 WBC (Bld) 27 % Normal 18-42 [facility] Comment on above: Performed By: #### B HUMAN RESOURCES RECEPTIONIST, HS TROP, BMP, CK, DIFF CBC ####[address] MCH (RBC) [Entitic mass] 32.0 pg Normal 27.5-35.2 [facility] Comment on above: Performed By: #### B HUMAN RESOURCES RECEPTIONIST, HS TROP, BMP, CK, DIFF CBC ####[address] MCV (RBC) [Entitic vol] 95.1 fL Normal 83.5-101 [facility] Comment on above: Performed By: #### B HUMAN RESOURCES RECEPTIONIST, HS TROP, BMP, CK, DIFF CBC ####[address] Mean Corpuscular HGB Conc 33.6 g/dL Normal 32.5-35.6 [facility] Comment on above: Performed By: #### B HUMAN RESOURCES RECEPTIONIST, HS TROP, BMP, CK, DIFF CBC ####[address] Monocytes/100 WBC (Bld) 25.58 % High 0.00-20.00 [facility] Comment on above: Result Comment: For adults in ED, MDW > 20.0 may be associated with a higher risk of sepsis during the first 12 hrs of hospital admission Performed By: #### B HUMAN RESOURCES RECEPTIONIST, HS TROP, BMP, CK, DIFF CBC ####[address] Monocytes/100 WBC (Bld) 7 % Normal 2-11 [facility] Comment on above: Performed By: #### B HUMAN RESOURCES RECEPTIONIST, HS TROP, BMP, CK, DIFF CBC ####[place] [id number] [facility] Nucleated Red Blood Cell 0 /100{WBC} Normal 0-0 [facility] Comment on above: Performed By: #### B HUMAN RESOURCES RECEPTIONIST, HS TROP, BMP, CK, DIFF CBC ####[address] Platelet Estimate Normal Normal Normal [facility] Comment on above: Performed By: #### B HUMAN RESOURCES RECEPTIONIST, HS TROP, BMP, CK, DIFF CBC ####[place] [id number] [facility] Platelet mean volume (Bld) [Entitic vol] 8.6 fL Normal 6.6-10.1 [facility] Comment on above: Performed By: #### B HUMAN RESOURCES RECEPTIONIST, HS TROP, BMP, CK, DIFF CBC ####[address] Platelet Morphology Normal Normal Normal [facility] Comment on above: Performed By: #### B HUMAN RESOURCES RECEPTIONIST, HS TROP, BMP, CK, DIFF CBC ####[place] [id number] [facility] Platelets (Bld) [#/Vol] 240 10*3/uL Normal 150-450 [facility] Comment on above: Performed By: #### B HUMAN RESOURCES RECEPTIONIST, HS TROP, BMP, CK, DIFF CBC ####[place] [id number] [facility] Plt Comment SEE COMMENT BELOW Normal [facility] Comment on above: Result Comment: NO C LOTS, NO CLUMPS, SHORT DRAW LFM PERFORMED BY: [facility] [address] [place] [address] PATHOLOGIST DELINQUENT TAX COLLECTOR RADHA BARRON M.D. Performed By: #### B HUMAN RESOURCES RECEPTIONIST, HS TROP, BMP, CK, DIFF CBC ####[address] RBC (Bld) [#/Vol] 4.41 10*6/uL Normal 3.90-5.60 [facility] Comment on above: Performed By: #### B HUMAN RESOURCES RECEPTIONIST, HS TROP, BMP, CK, DIFF CBC ####[address] RBC morphology finding Nom (Bld) Normal Normal Normal [facility] Comment on above: Performed By: #### B HUMAN RESOURCES RECEPTIONIST, HS TROP, BMP, CK, DIFF CBC ####[address] Segmented neutrophils/100 WBC (Bld) 62 % Normal 50-70 [facility] Comment on above: Performed By: #### B HUMAN RESOURCES RECEPTIONIST, HS TROP, BMP, CK, DIFF CBC ####[address] WBC (Bld) [#/Vol] 7.6 10*3/uL Normal 4.1-10.5 [facility] Comment on above: Performed By: #### B HUMAN RESOURCES RECEPTIONIST, HS TROP, BMP, CK, DIFF CBC ####[address] WBC (Bld) [#/Vol] 8.4 10*3/uL Normal 4.1-10.5 [facility] Comment on above: Performed By: #### B HUMAN RESOURCES RECEPTIONIST, HS TROP, BMP, CK, DIFF CBC ####[address] ECG 12 lead ECGon 01-09-2024 ECG 12 lead ECG [facility] Main [place] [address] [place] [address] Electrocardiograph Report Signed Patient: Jeb Riddle MR#: [id number] : 1950 Acct:[id number] Age/Sex: 73 / M ADM Date: 01/09/24 Loc: ER Room: Type: [facility] Attending Dr: Ordering Provider: SABA Blankenship [...] Patterson DO 1828 Normal [facility] Eosinophils Auto (Bld) [#/Vo l]Ordered By: Naima Boyd on 01-09-2024 Eosinophils (Bld) [#/Vol] N/A [facility] Eosinophils/100 WBC Auto (Bl d)Ordered By: Naima Boyd on 01-09-2024 Eosinophils/100 WBC (Bld) N/A [facility] Eosinophils/100 WBC Manual c nt (Bld)Ordered By: Naima Boyd on 01-09-2024 Eosinophils/100 WBC (Bld) 4 % 1-3 [facility] Erythrocyte distribution wid th Auto (RBC) [Ratio]Ordered By: Naima Boyd on 01-09-2024 Erythrocyte distribution width (RBC) [Ratio] 14.9 % 12.0-14.8 [facility] Fibrin D-dimer [Presence] in Platelet poor plasma by Latex agglutinationOrdered By: Naima Boyd on 01-09-2024 Fibrin D-dimer LA Ql (PPP) 1905 ng/mL 0-243 [facility] Comment on above: The reference range [...] coagulation studies. Please contact the laboratory at [phone] for redraw instructions. Glucose [Mass/volume] in Ser um or PlasmaOrdered By: Naima Body on 01-09-2024 Glucose [Mass/Vol] 95 mg/dL 70-100 [facility] Comment on above: ADA recommended refe rence rangeRandom Glucose Reference Range is dependent on time and content of last meal. Glucose of more than 200 mg/dL in a nonstressed, ambulatory subject supports the diagnosis of Diabetes Mellitus. Hematocrit Auto (Bld) [Volum e fraction]Ordered By: Naima Boyd on 01-09-2024 Hematocrit (Bld) [Volume fraction] 41.9 % 38.8-50.0 [facility] Hemoglobin [Mass/volume] in BloodOrdered By: Naima Boyd on 01-09-2024 Hemoglobin (Bld) [Mass/Vol] 14.1 g/dL 13.0-17.0 [facility] INR in Platelet poor plasma by Coagulation assayOrdered By: Naima Boyd on 01-09-2024 INR Coag (PPP) [Relative time] 1.0 {INR} [facility] Comment on above: INR Therapeutic Rang [...] RBC Auto (Bld) [#/Vol] 7.6 10*3/uL 4.1-10.5 [facility] Lymphocytes Auto (Bld) [#/Vo l]Ordered By: Naima Godwinimore on 01-09-2024 Lymphocytes (Bld) [#/Vol] N/A [facility] Lymphocytes/100 WBC Auto (Bl d)Ordered By: Naima Bullimore on 01-09-2024 Lymphocytes/100 WBC (Bld) N/A [facility] Lymphocytes/100 WBC Manual c nt (Bld)Ordered By: Naima Bullimore on 01-09-2024 Lymphocytes/100 WBC (Bld) 27 % 18-42 [facility] MCH Auto (RBC) [Entitic mass ]Ordered By: Naima Godwinimore on 01-09-2024 MCH (RBC) [Entitic mass] 32.0 pg 27.5-35.2 [facility] MCHC Auto (RBC) [Mass/Vol]Or dered By: Naima Bullimore on 01-09-2024 MCHC (RBC) [Mass/Vol] 33.6 g/dL 32.5-35.6 [facility] MCV Auto (RBC) [Entitic vol] Ordered By: Naima Godwinimore on 01-09-2024 MCV (RBC) [Entitic vol] 95.1 fL 83.5-101 [facility] Monocyte distribution width [Entitic volume] in Blood by AutomatedOrdered By: Naima Boyd on 01-09-2024 Monocyte distribution width Auto (Bld) [Entitic vol] 25.58 % 0.00-20.00 [facility] Comment on above: For adults in ED, MD W > 20.0 may be associated with a higher risk of sepsis during the first 12 hrs of hospital admission Monocytes Auto (Bld) [#/Vol] Ordered By: Naima Godwinimore on 01-09-2024 Monocytes (Bld) [#/Vol] N/A [facility] Monocytes/100 WBC Auto (Bld) Ordered By: Naima Bullimore on 01-09-2024 Monocytes/100 WBC (Bld) N/A [facility] Monocytes/100 WBC Manual cnt (Bld)Ordered By: Naima Godwinimore on 01-09-2024 Monocytes/100 WBC (Bld) 7 % 2-11 [facility] Natriuretic peptide B [Mass/ Vol]Ordered By: Naima Bullimore on 01-09-2024 Natriuretic peptide B (Bld) [Mass/Vol] 172.0 pg/mL 5-100 [facility] Neutrophils Auto (Bld) [#/Vo l]Ordered By: Naima Bullimore on 01-09-2024 Neutrophils (Bld) [#/Vol] N/A [facility] Neutrophils/100 WBC Auto (Bl d)Ordered By: Naima Bullimore on 01-09-2024 Neutrophils/100 WBC (Bld) N/A [facility] No Panel InformationOrdered By: Naima Boyd on 01-09-2024 Estimated GFR (CKD-EPI) > 60.0 mL/Min [facility] Creatinine Clearance (Chem 64.96 [facility] Platelet Comment See comment below F [facility] Comment on above: NO CLOTS, NO CLUMPS, SHORT DRAW LFM Nucleated RBC/100 WBC Manual cnt (Bld) [Ratio]Ordered By: Naima Godwinimore on 01-09-2024 Nucleated RBC/100 WBC (Bld) [Ratio] 0 /100{WBC} 0-0 [facility] Nucleated erythrocytes [Pres ence] in Blood by Automated countOrdered By: Naima Boyd on 01-09-2024 Nucleated RBC Auto Ql (Bld) N/A [facility] Platelet adequacy [Presence] in Blood by Light microscopyOrdered By: Naima Godwinimore on 01-09-2024 Platelets LM Ql (Bld) Normal Normal [facility] Platelet mean volume Auto (B ld) [Entitic vol]Ordered By: Naima Godwinimore on 01-09-2024 Platelet mean volume (Bld) [Entitic vol] 8.6 fL 6.6-10.1 [facility] Platelet morphology finding [Identifier] in BloodOrdered By: Naima Godwinimore on 01-09-2024 Platelet morphology finding Nom (Bld) Normal Normal [facility] Platelets Auto (Bld) [#/Vol] Ordered By: Naima Boyd on 01-09-2024 Platelets (Bld) [#/Vol] 240 10*3/uL 150-450 [facility] Potassium [Moles/volume] in Serum or PlasmaOrdered By: Naima Boyd on 01-09-2024 Potassium [Moles/Vol] 3.9 mmol/L 3.5-5.1 [facility] Prothrombin time (PT)Ordered By: Naima Boyd on 01-09-2024 PT Coag (PPP) [Time] 11.9 s 9.0-12.9 [facility] Comment on above: A hematocrit value g reater than 55% may lead to inaccurate results in coagulation testing. Patients having hematocrit values >55% require a special collection tube for coagulation studies. Please contact the laboratory at [phone] for redraw instructions. RBC Auto (Bld) [#/Vol]Ordere d By: Naima Boyd on 01-09-2024 RBC (Bld) [#/Vol] 4.41 10*6/uL 3.90-5.60 [facility] RBC morphologyOrdered By: Sabine Boyd on 01-09-2024 RBC morphology finding Nom (Bld) Normal Normal [facility] Redraw Potassiumon Potassium [Moles/Vol] 3.9 mmol/L Normal 3.5-5.1 [facility] Comment on above: Result Comment: PERF ORMED BY: [facility] [address] [place] [address] PATHOLOGIST DELINQUENT TAX COLLECTOR RADHA BARRON M.D. Performed By: #### R EDRAW K ####[facility] [id number] [place] [address] [facility] Segmented neutrophils/100 WB C Manual cnt (Bld)Ordered By: Naima Boyd on 01-09-2024 Segmented neutrophils/100 WBC (Bld) 62 % 50-70 [facility] Serum or plasma anion gap de terminationOrdered By: Naima Boyd on 01-09-2024 Anion gap [Moles/Vol] TNP [facility] Comment on above: Test not performed Sodium [Moles/volume] in Ser um or PlasmaOrdered By: Naima Bullimore on 01-09-2024 Sodium [Moles/Vol] 142 mmol/L 136-145 [facility] Troponin I High Sensitivityo n 01-09-2024 Troponin I High Sensitivity 13.1 pg/mL Normal 0.0-20.0 [facility] Comment on above: Result Comment: PERF ORMED BY: [facility] [address] [place] [address] PATHOLOGIST DELINQUENT TAX COLLECTOR RADHA BARRON M.D. Performed By: #### H S TROP #### [facility] [address] [place] [address] [facility] Troponin I High Sensitivity 12.5 pg/mL Normal 0.0-20.0 [facility] Comment on above: Result Comment: PERF ORMED BY: [place] [id number] PATHOLOGIST DELINQUENT TAX COLLECTOR RADHA BARRON M.D. Performed By: #### B HUMAN RESOURCES RECEPTIONIST, HS TROP, BMP, CK, DIFF CBC ####[facility] [address] [place] [address] [facility] Troponin I.cardiac [Mass/vol ume] in Serum or Plasma by Detection limit <= 0.01 ng/Ordered By: Naima Godwinimore on 01-09-2024 Troponin I.cardiac DL <= 0.01 ng/mL [Mass/Vol] 13.1 pg/mL 0.0-20.0 [facility] Urea nitrogen [Mass/volume] in Serum or PlasmaOrdered By: Naima Bullimore on 01-09-2024 Urea nitrogen [Mass/Vol] 20 mg/dL 7-25 [facility] WBC Auto (Bld) [#/Vol]Ordere d By: Naima Bullimore on 01-09-2024 WBC (Bld) [#/Vol] 8.4 10*3/uL 4.1-10.5 [facility] XR chest 2V*on 01-09-2024 XR chest 2V* [facility] Main [place] [address] [place] [address] XRay Report Signed Patient: Jeb Riddle MR#: [id number] : 1950 Acct:[id number] Age/Sex: 73 / M ADM Date: 01/09/24 Loc: ER Room: Type: [facility] ER Attending Dr: Copies to: SABA [...] Jeb Collins M.D.01/09/2024 4:11 PM Dictation Location: [place] [address] Transcribed By: [facility] 01/09/24 1611 Dictated By: Jeb Collins II, MD 01/09/24 1610 Signed By: 01/09/24 1611 Normal [facility] ECG 12 lead ECGon 12-18-2023 ECG 12 lead ECG [facility] [place] [address] Electrocardiograph Report Signed Patient: Jeb Riddle MR#: [id number] : 1950 Acct:[id number] Age/Sex: 73 / M ADM Date: 12/18/23 Loc: ER Room: Type: [facility] ER Attending Dr: Ordering Provider: Marie Garrison [...] was found Confirmed by RAMIRO CORTEZ DO ([id number]) on 12/18/2023 4:44:01 PM Referred By: Electronically Signed By:RAMIRO CORTEZ DO Transcribed By: MUS Signed By Ramiro Cortez DO 12/17 1644 Normal [facility] Office Visiton 12-09-2023 Follow-up visit [id number] Jeb Riddle 1950 M Date Provider Department Center 12/09/2023 JESSICA JAMISON Family History Problem Relation Age of Onset Diabetes Mother Coronary artery disease Mother Heart attack Father Diabetes Father Coronary artery disease Father Family Status - Relation Status Age at Mother Father Level of Service:20486 OR OFFICE/OUTPATIENT ESTABLISHED MOD MDM 30 MIN Reason for Visit and Comments: Follow-up [170208] - 6 months Normal [facility] Office Visiton 06-07-2023 Follow-up visit [id number] Jeb Riddle 1950 M Date Provider Department Center 06/07/2023 SHIV SAAVEDRA MISSY Nicole Family History Problem Relation Age of Onset Diabetes Mother Coronary artery disease Mother Heart attack Father Diabetes Father Coronary artery disease Father Family Status - Relation Status Age at Mother Father Level of Service:15312 OR OFFICE/OUTPATIENT [facility] MDM 60-74 MINUTES Normal [facility] Office Visiton 05-27-2023 Follow-up visit [id number] Jeb Riddle 1950 M Date Provider Department Center 05/27/2023 JESSICA JAMISON Family History Problem Relation Age of Onset Diabetes Mother Coronary artery disease Mother Heart attack Father Diabetes Father Coronary artery disease Father Family Status - Relation Status Age at Mother Father Level of Service:47168 OR OFFICE/OUTPATIENT ESTABLISHED MOD MDM 30-39 MIN Reason for Visit and Comments: Follow-up [571242] Coronary Artery Disease [187] Normal [facility] Activated partial thrombopla stin time (aPTT) in platelet poor plasma by coagulation aOrdered By: Ramiro Cortez on 03-03-2023 aPTT Coag (PPP) [Time] 29.7 s 25.1-36.5 [facility] B-Type Natriuretic Peptideon 03-03-2023 Natriuretic peptide B (Bld) [Mass/Vol] 52.0 pg/mL Normal 5-100 [facility] Comment on above: Result Comment: PERF ORMED BY: [facility] [address] [address] PATHOLOGIST DELINQUENT TAX COLLECTOR RADHA BARRON M.D. Performed By: #### C BC, CK, PT, PTT, BMP, HS TROP, BNP ####[address] Basic Metabolic Panelon 02-13 Anion gap [Moles/Vol] 10.6 mmol/L Normal 6.0-15.0 [facility] Comment on above: Performed By: #### C BC, CK, PT, PTT, BMP, HS TROP, BNP ####[address] Calcium [Mass/Vol] 8.6 mg/dL Normal 8.6-10.3 [facility] Comment on above: Performed By: #### C BC, CK, PT, PTT, BMP, HS TROP, BNP ####[address] Chloride [Moles/Vol] 108 mmol/L High 98-107 [facility] Comment on above: Performed By: #### C BC, CK, PT, PTT, BMP, HS TROP, BNP ####[address] CO2 [Moles/Vol] 24.6 mmol/L Normal 21.0-31.0 [facility] Comment on above: Performed By: #### C BC, CK, PT, PTT, BMP, HS TROP, BNP ####[address] Creatinine [Mass/Vol] 1.19 mg/dL Normal 0.70-1.30 [facility] Comment on above: Performed By: #### C BC, CK, PT, PTT, BMP, HS TROP, BNP ####[address] Creatinine Clr Calc Pharmacy 55.29 Normal [facility] Comment on above: Result Comment: PERF ORMED BY: [facility] [address] [address] PATHOLOGIST DELINQUENT TAX COLLECTOR RADHA BARRON M.D. Performed By: #### C BC, CK, PT, PTT, BMP, HS TROP, BNP ####[address] GFR/1.73 sq M.predicted MDRD (S/P/Bld) [Vol rate/Area] mL/min/{1.73_m2} Normal [facility] Comment on above: Performed By: #### C BC, CK, PT, PTT, BMP, HS TROP, BNP ####[address] Glucose [Mass/Vol] 93 mg/dL Normal 70-100 [facility] Comment on above: Result Comment: [facility] Glucose Reference Range is dependent on time and content of last meal. Glucose of more than 200 mg/dL in a nonstressed, ambulatory subject supports the diagnosis of Diabetes Mellitus. ADA recommended reference range Performed By: #### C BC, CK, PT, PTT, BMP, HS TROP, BNP ####[address] Potassium [Moles/Vol] 4.2 mmol/L Normal 3.5-5.1 [facility] Comment on above: Performed By: #### C BC, CK, PT, PTT, BMP, HS TROP, BNP ####[address] Sodium [Moles/Vol] 139 mmol/L Normal 136-145 [facility] Comment on above: Performed By: #### C BC, CK, PT, PTT, BMP, HS TROP, BNP ####[address] Urea nitrogen [Mass/Vol] 17 mg/dL Normal 7-25 [facility] Comment on above: Performed By: #### C BC, CK, PT, PTT, BMP, HS TROP, BNP ####[address] [place] [address] [place] Basophils Auto (Bld) [#/Vol] Ordered By: Ramiro Cortez on 03-03-2023 Basophils (Bld) [#/Vol] 0.0 10*3/uL 0.0-0.2 [facility] Basophils/100 WBC Auto (Bld) Ordered By: Ramiro Cortez on 03-03-2023 Basophils/100 WBC (Bld) 0.4 % . [facility] Calcium [Mass/volume] in Ser um or PlasmaOrdered By: Ramiro Cortez on 03-03-2023 Calcium [Mass/Vol] 8.6 mg/dL 8.6-10.3 [facility] Carbon dioxide, total [Moles /volume] in Serum or PlasmaOrdered By: Ramiro Cortez on 03-03-2023 CO2 [Moles/Vol] 24.6 mmol/L 21.0-31.0 [facility] Chloride [Moles/volume] in S pooja or PlasmaOrdered By: Ramiro Cortez on 03-03-2023 Chloride [Moles/Vol] 108 mmol/L 98-107 [facility] Complete Blood Count Auto Di ffon 03-03-2023 Basophils (Bld) [#/Vol] 0.0 10*3/uL Normal 0.0-0.2 [facility] Comment on above: Result Comment: PERF ORMED BY: [facility] [address] [place] [address] PATHOLOGIST DELINQUENT TAX COLLECTOR RADHA BARRON M.D. Performed By: #### C BC, CK, PT, PTT, BMP, HS TROP, BNP #### [facility] [address] Basophils/100 WBC (Bld) 0.4 % Normal . [facility] Comment on above: Performed By: #### C BC, CK, PT, PTT, BMP, HS TROP, BNP #### [facility] [address] [place] [address] [place] Eosinophils (Bld) [#/Vol] 0.2 10*3/uL Normal 0.0-0.45 [facility] Comment on above: Performed By: #### C BC, CK, PT, PTT, BMP, HS TROP, BNP #### [address] Eosinophils/100 WBC (Bld) 2.4 % Normal . [facility] Comment on above: Performed By: #### C BC, CK, PT, PTT, BMP, HS TROP, BNP #### [address] Erythrocyte distribution width (RBC) [Ratio] 13.0 % Normal 12.0-14.8 [facility] Comment on above: Performed By: #### C BC, CK, PT, PTT, BMP, HS TROP, BNP #### [address] Hematocrit (Bld) [Volume fraction] 38.3 % Low 38.8-50.0 [facility] Comment on above: Performed By: #### C BC, CK, PT, PTT, BMP, HS TROP, BNP #### [address] Hemoglobin (Bld) [Mass/Vol] 12.9 g/dL Low 13.0-17.0 [facility] Comment on above: Performed By: #### C BC, CK, PT, PTT, BMP, HS TROP, BNP #### [address] Lymphocytes (Bld) [#/Vol] 2.6 10*3/uL Normal 1.00-4.8 [facility] Comment on above: Performed By: #### C BC, CK, PT, PTT, BMP, HS TROP, BNP #### [address] Lymphocytes/100 WBC (Bld) 28.3 % Normal . [facility] Comment on above: Performed By: #### C BC, CK, PT, PTT, BMP, HS TROP, BNP #### [address] MCH (RBC) [Entitic mass] 30.8 pg Normal 27.5-35.2 [facility] Comment on above: Performed By: #### C BC, CK, PT, PTT, BMP, HS TROP, BNP #### [address] MCV (RBC) [Entitic vol] 91.9 fL Normal 83.5-101 [facility] Comment on above: Performed By: #### C BC, CK, PT, PTT, BMP, HS TROP, BNP #### [address] Mean Corpuscular HGB Conc 33.6 g/dL Normal 32.5-35.6 [facility] Comment on above: Performed By: #### C BC, CK, PT, PTT, BMP, HS TROP, BNP #### [address] Monocytes (Bld) [#/Vol] 0.6 10*3/uL Normal 0.0-0.8 [facility] Comment on above: Performed By: #### C BC, CK, PT, PTT, BMP, HS TROP, BNP #### [address] Monocytes/100 WBC (Bld) 24.67 % High 0.00-20.00 [facility] Comment on above: Result Comment: For adults in ED, MDW > 20.0 may be associated with a higher risk of sepsis during the first 12 hrs of hospital admission Performed By: #### C BC, CK, PT, PTT, BMP, HS TROP, BNP #### [address] Monocytes/100 WBC (Bld) 6.5 % Normal . [facility] Comment on above: Performed By: #### C BC, CK, PT, PTT, BMP, HS TROP, BNP #### [address] Neutrophils (Bld) [#/Vol] 5.7 10*3/uL Normal 1.8-7.7 [facility] Comment on above: Performed By: #### C BC, CK, PT, PTT, BMP, HS TROP, BNP #### [place] [address] Neutrophils/100 WBC (Bld) 62.4 % Normal . [facility] Comment on above: Performed By: #### C BC, CK, PT, PTT, BMP, HS TROP, BNP #### [address] NRBC% 0.1 /100{WBC} Normal 0-0.5 [facility] Comment on above: Performed By: #### C BC, CK, PT, PTT, BMP, HS TROP, BNP #### [address] Platelet mean volume (Bld) [Entitic vol] 8.2 fL Normal 6.6-10.1 [facility] Comment on above: Performed By: #### C BC, CK, PT, PTT, BMP, HS TROP, BNP #### [address] Platelets (Bld) [#/Vol] 234 10*3/uL Normal 150-450 [facility] Comment on above: Performed By: #### C BC, CK, PT, PTT, BMP, HS TROP, BNP #### [address] RBC (Bld) [#/Vol] 4.17 10*6/uL Normal 3.90-5.60 [facility] Comment on above: Performed By: #### C BC, CK, PT, PTT, BMP, HS TROP, BNP #### [address] WBC (Bld) [#/Vol] 9.2 10*3/uL Normal 4.1-10.5 [facility] Comment on above: Performed By: #### C BC, CK, PT, PTT, BMP, HS TROP, BNP #### [address] Creatine Kinaseon 03-03-2023 CK [Catalytic activity/Vol] 125 U/L Normal 30-223 [facility] Comment on above: Performed By: #### C BC, CK, PT, PTT, BMP, HS TROP, BNP ####[facility] [place] [id number] [facility] Creatine kinase [Enzymatic a ctivity/volume] in Serum or PlasmaOrdered By: Ramiro Cortez on 03-03-2023 CK [Catalytic activity/Vol] 125 U/L [facility] Creatinine [Mass/volume] in Serum or PlasmaOrdered By: Ramiro Cortez on 03-03-2023 Creatinine [Mass/Vol] 1.19 mg/dL 0.70-1.30 [facility] ECG 12 lead ECGon 03-03-2023 ECG 12 lead ECG [facility] Main [place] [address] [place] [address] Electrocardiograph Report Signed Patient: Jeb Riddle MR#: [id number] : 1950 Acct:[id number] Age/Sex: 72 / M ADM Date: 03/03/23 Loc: ER Room: Type: [facility] ER Attending Dr: Ordering Provider: Ramiro Cortez [...] ECGs available Confirmed by RAMIRO CORTEZ DO ([id number]) on 03/03/2023 8:14:27 PM Referred By: Electronically Signed By:RAMIRO CORTEZ DO Transcribed By: MUS Signed By Ramiro Cortez DO 03/03 Normal [facility] Eosinophils Auto (Bld) [#/Vo l]Ordered By: Ramiro Cortez on 03-03-2023 Eosinophils (Bld) [#/Vol] 0.2 10*3/uL 0.0-0.45 [facility] Eosinophils/100 WBC Auto (Bl d)Ordered By: Ramiro Cortez on 03-03-2023 Eosinophils/100 WBC (Bld) 2.4 % . [facility] Erythrocyte distribution wid th Auto (RBC) [Ratio]Ordered By: Ramiro Cortez on 03-03-2023 Erythrocyte distribution width (RBC) [Ratio] 13.0 % 12.0-14.8 [facility] Glucose [Mass/volume] in Ser um or PlasmaOrdered By: Ramiro Cortez on 03-03-2023 Glucose [Mass/Vol] 93 mg/dL 70-100 [facility] Comment on above: ADA recommended refe rence rangeRandom Glucose Reference Range is dependent on time and content of last meal. Glucose of more than 200 mg/dL in a nonstressed, ambulatory subject supports the diagnosis of Diabetes Mellitus. Hematocrit Auto (Bld) [Volum e fraction]Ordered By: Ramiro Cortez on 03-03-2023 Hematocrit (Bld) [Volume fraction] 38.3 % 38.8-50.0 [facility] Hemoglobin [Mass/volume] in BloodOrdered By: Ramiro Cortez on 03-03-2023 Hemoglobin (Bld) [Mass/Vol] 12.9 g/dL 13.0-17.0 [facility] Laboratory - CoagulationOrde red By: Ramiro Cortez on 03-03-2023 PT Coag (PPP) [Time] 12.3 s 9.0-12.9 [facility] Leukocytes [#/volume] correc ava for nucleated erythrocytes in Blood by Automated counOrdered By: Ramiro Cortez on 03-03-2023 WBC corrected for nucl RBC Auto (Bld) [#/Vol] 9.2 10*3/uL 4.1-10.5 [facility] Lymphocytes Auto (Bld) [#/Vo l]Ordered By: Ramiro Cortez on 03-03-2023 Lymphocytes (Bld) [#/Vol] 2.6 10*3/uL 1.00-4.8 [facility] Lymphocytes/100 WBC Auto (Bl d)Ordered By: Ramiro Cortez on 03-03-2023 Lymphocytes/100 WBC (Bld) 28.3 % . [facility] MCH Auto (RBC) [Entitic mass ]Ordered By: Ramiro Cortez on 03-03-2023 MCH (RBC) [Entitic mass] 30.8 pg 27.5-35.2 [facility] MCHC Auto (RBC) [Mass/Vol]Or dered By: Ramiro Cortez on 03-03-2023 MCHC (RBC) [Mass/Vol] 33.6 g/dL 32.5-35.6 [facility] MCV Auto (RBC) [Entitic vol] Ordered By: Ramiro Cortez on 03-03-2023 MCV (RBC) [Entitic vol] 91.9 fL 83.5-101 [facility] Monocyte distribution width [Entitic volume] in Blood by AutomatedOrdered By: Ramiro Cortez on 03-03-2023 Monocyte distribution width Auto (Bld) [Entitic vol] 24.67 % 0.00-20.00 [facility] Comment on above: For adults in ED, MD W > 20.0 may be associated with a higher risk of sepsis during the first 12 hrs of hospital admission Monocytes Auto (Bld) [#/Vol] Ordered By: Ramiro Cortez on 03-03-2023 Monocytes (Bld) [#/Vol] 0.6 10*3/uL 0.0-0.8 [facility] Monocytes/100 WBC Auto (Bld) Ordered By: Ramiro Cortez on 03-03-2023 Monocytes/100 WBC (Bld) 6.5 % . [facility] Natriuretic peptide B [Mass/ Vol]Ordered By: Ramiro Cortez on 03-03-2023 Natriuretic peptide B (Bld) [Mass/Vol] 52.0 pg/mL 5-100 [facility] Neutrophils Auto (Bld) [#/Vo l]Ordered By: Ramiro Cortez on 03-03-2023 Neutrophils (Bld) [#/Vol] 5.7 10*3/uL 1.8-7.7 [facility] Neutrophils/100 WBC Auto (Bl d)Ordered By: Ramiro Cortez on 03-03-2023 Neutrophils/100 WBC (Bld) 62.4 % . [facility] No Panel InformationOrdered By: Ramiro Cortez on 03-03-2023 Estimated GFR (CKD-EPI) > 60.0 mL/Min [facility] Creatinine Clearance (Chem 55.29 [facility] Nucleated erythrocytes [Pres ence] in Blood by Automated countOrdered By: Ramiro Cortez on 03-03-2023 Nucleated RBC Auto Ql (Bld) 0.1 /100{WBC} 0-0.5 [facility] Partial Thromboplastin Timeo n 03-03-2023 aPTT Coag (Bld) [Time] 29.7 s Normal 25.1-36.5 [facility] Comment on above: Result Comment: PERF ORMED BY: [facility] [address] [place] [address] PATHOLOGIST DELINQUENT TAX COLLECTOR RADHA BARRON M.D. Performed By: #### C BC, CK, PT, PTT, BMP, HS TROP, BNP #### [facility] [address] Platelet mean volume Auto (B ld) [Entitic vol]Ordered By: Ramiro Cortez on 03-03-2023 Platelet mean volume (Bld) [Entitic vol] 8.2 fL 6.6-10.1 [facility] Platelet poor plasma interna tional normalized ratio (INR) by coagulation assay (relatOrdered By: Ramiro Cortez on 03-03-2023 INR Coag (PPP) [Relative time] 1.1 {INR} [facility] Comment on above: INR Therapeutic Rang [...] 03-03-2023 Platelets (Bld) [#/Vol] 234 10*3/uL 150-450 [facility] Potassium [Moles/volume] in Serum or PlasmaOrdered By: Ramiro Cortez on 03-03-2023 Potassium [Moles/Vol] 4.2 mmol/L 3.5-5.1 [facility] Prothrombin Time INRon 03-03 INR Coag (PPP) [Relative time] 1.1 {INR} Normal [facility] Comment on above: Result Comment: [...] PT, PTT, BMP, HS TROP, BNP #### [facility] [address] PT Coag (PPP) [Time] 12.3 s Normal 9.0-12.9 [facility] Comment on above: Performed By: #### C BC, CK, PT, PTT, BMP, HS TROP, BNP #### [facility] [address] RBC Auto (Bld) [#/Vol]Ordere d By: Ramiro Cortez on 03-03-2023 RBC (Bld) [#/Vol] 4.17 10*6/uL 3.90-5.60 [facility] Serum or plasma anion gap de terminationOrdered By: Ramiro Cortez on 03-03-2023 Anion gap [Moles/Vol] 10.6 mmol/L 6.0-15.0 [facility] Sodium [Moles/volume] in Ser um or PlasmaOrdered By: Ramiro Crotez on 03-03-2023 Sodium [Moles/Vol] 139 mmol/L 136-145 [facility] Troponin I High Sensitivityo n 03-03-2023 Troponin I High Sensitivity 7.6 pg/mL Normal 0.0-20.0 [facility] Comment on above: Result Comment: PERF ORMED BY: [facility] [address] [place] [address] PATHOLOGIST DELINQUENT TAX COLLECTOR RADHA BARRON M.D. Performed By: #### C BC, CK, PT, PTT, BMP, HS TROP, BNP ####[facility] [address] Troponin I.cardiac [Mass/vol ume] in Serum or Plasma by Detection limit <= 0.01 ng/Ordered By: Ramiro Cortez on 03-03-2023 Troponin I.cardiac DL <= 0.01 ng/mL [Mass/Vol] 7.6 pg/mL 0.0-20.0 [facility] Urea nitrogen [Mass/volume] in Serum or PlasmaOrdered By: Ramiro Cortez on 03-03-2023 Urea nitrogen [Mass/Vol] 17 mg/dL 03-08 [facility] WBC Auto (Bld) [#/Vol]Ordere d By: Ramiro Cortez on 03-03-2023 WBC (Bld) [#/Vol] 9.2 10*3/uL 4.1-10.5 [facility] XR chest 2V*on 03-03-2023 XR chest 2V* [facility] Main [place] [address] [place] [address] XRay Report Signed Patient: Jeb Riddle MR#: [id number] : 1950 Acct:[id number] Age/Sex: 72 / M ADM Date: 03/03/23 Loc: ER Room: Type: [facility] ER Attending Dr: Copies to: Ramiro [...] Ivonne Zavala M.D.03/03/2023 12:46 PM Dictation Location: [place] [address] Transcribed By: KAROLINA 03/03/23 1246 Dictated By: Ivonne Zavala MD 03/03/23 1245 Signed By: 03/03/23 1246 Normal [facility] CBC AUTO DIFFon 01-11-2023 BASO # 0.0 103/ul Normal 0.0-0.1 [facility] Comment on above: Performed By: #### C #### [facility] [address] [place] [address] Dr. Andrea Garcia Basophils/100 WBC (Bld) 0.0 % Critically low 0.2-2.0 [facility] Comment on above: Performed By: #### C BC #### [facility] [address] [place] [address] Dr. Andrea Garcia EO # 0.0 103/ul Normal 0.0-0.7 [facility] Comment on above: Performed By: #### C BC #### [facility] [address] [place] [address] Dr. Andrea Garcia Eosinophils/100 WBC (Bld) 0.0 % Critically low 0.9-7.0 [facility] Comment on above: Performed By: #### C BC #### [facility] [address] [place] [address] Dr. Andrea Garcia Erythrocyte distribution width (RBC) [Ratio] 12.8 % Normal 11.0-15.0 [facility] Comment on above: Performed By: #### C BC #### [facility] [address] [place] [address] Dr. Andrea Garcia Hematocrit (Bld) [Volume fraction] 36.2 % Critically low 42.0-54.0 [facility] Comment on above: Performed By: #### C BC #### [facility] [address] [place] [address] Dr. Andrea Garcia Hemoglobin (Bld) [Mass/Vol] 12.8 g/dL Critically low 14.0-18.0 [facility] Comment on above: Performed By: #### C BC #### [facility] [address] [place] [address] Dr. Andrea Garcia IG # 0.03 10e3/ul Normal 0.00-0.03 [facility] Comment on above: Performed By: #### C BC #### [facility] [address] [place] [address] Dr. Andrea Garcia IG % 0.4 % Normal 0.0-0.5 [facility] Comment on above: Performed By: #### C BC #### [facility] [address] [place] [address] [address] Andrea Garcia LYMPH # 1.1 103/ul Critically low 1.2-3.8 [facility] Comment on above: Performed By: #### C BC #### [facility] [address] [place] [address] Dr. Andrea Garcia Lymphocytes/100 WBC (Bld) 15.3 % Critically low 20.5-60.0 [facility] Comment on above: Performed By: #### C BC #### [facility] [address] [place] [address] Dr. Andrea Garcia MANUAL DIFF REQ NO Normal [facility] Comment on above: Performed By: #### C BC #### [facility] [address] [place] [address] Dr. Andrea Garcia MCH (RBC) [Entitic mass] 31.3 pg Normal 25.9-34.0 [facility] Comment on above: Performed By: #### C BC #### [facility] [address] [place] [address] Dr. Andrea Garcia MCHC (RBC) [Mass/Vol] 35.4 g/dL Critically high 29.9-35.2 [facility] Comment on above: Performed By: #### C BC #### [facility] [address] [place] [address] Dr. Andrea Garcia MCV (RBC) [Entitic vol] 88.5 fL Normal 80.0-94.0 [facility] Comment on above: Performed By: #### C BC #### [facility] [address] [place] [address] Dr. Andrea Garcia MONO # 0.1 103/ul Critically low 0.3-0.8 [facility] Comment on above: Performed By: #### C BC #### [facility] [address] [place] [address] Dr. Andrea Garcia Monocytes/100 WBC (Bld) 0.7 % Critically low 1.7-12.0 [facility] Comment on above: Performed By: #### C BC #### [facility] Laboratory [address] [address] [address] Andrea Garcia NEUT # 6.0 103/ul Normal 1.4-6.5 [facility] Comment on above: Performed By: #### C BC #### [facility] Laboratory [address] [place] [address] Dr. Andrea Garcia Neutrophils/100 WBC (Bld) 83.6 % Critically high 43.0-75.0 [facility] Comment on above: Performed By: #### C BC #### [facility] Laboratory [address] [place] [address] Dr. Andrea Garcia Platelet mean volume (Bld) [Entitic vol] 10.1 fL Normal 9.5-13.5 [facility] Comment on above: Performed By: #### C BC #### [facility] [address] [place] [address] Dr. Andrea Garcia PLT 216 103/ul Normal 150-450 [facility] Comment on above: Performed By: #### C BC #### [facility] [address] [place] [address] Dr. Andrea Garcia RBC 4.09 106/ul Critically low 4.70-6.10 [facility] Comment on above: Performed By: #### C BC #### [facility] [address] [place] [address] Dr. Andrea Garcia WBC 7.2 103/ul Normal 4.0-11.0 [facility] Comment on above: Performed By: #### C BC #### [facility] [address] [place] [address] Dr. Andrea Garcia PROF 14(COMP METB)on 023 Albumin [Mass/Vol] 2.8 g/dL Critically low 3.4-5.0 [facility] Comment on above: Performed By: #### C MP #### [facility] [address] [place] [address] Dr. Andrea Garcia Albumin/Globulin [Mass ratio] 0.8 {ratio} Normal [facility] Comment on above: Performed By: #### C MP #### [facility] [address] [address] [address] Andrea Garcia ALP [Catalytic activity/Vol] 64 U/L Normal 46-116 [facility] Comment on above: Performed By: #### C MP #### [facility] [address] [place] [address] Dr. Andrea Garcia ALT [Catalytic activity/Vol] 27 U/L Normal 16-63 [facility] Comment on above: Performed By: #### C MP #### [facility] [address] [place] [address] Dr. Andrea Garcia Anion gap [Moles/Vol] 12.9 mmol/L Normal [facility] Comment on above: Performed By: #### C MP #### [facility] [address] [place] [address] Dr. Andrea Garcia AST [Catalytic activity/Vol] 16 U/L Normal 15-37 [facility] Comment on above: Performed By: #### C MP #### [facility] [address] [place] [address] Dr. Andrea Garcia Bilirubin [Mass/Vol] 0.4 mg/dL Normal 0.2-1.0 [facility] Comment on above: Performed By: #### C MP #### [facility] [address] [place] [address] Dr. Andrea Garcia Calcium [Mass/Vol] 8.2 mg/dL Critically low 8.5-10.1 [facility] Comment on above: Performed By: #### C MP #### [facility] [address] [place] [address] Dr. Andrea Garcia Chloride [Moles/Vol] 107 mmol/L Normal 98-107 [facility] Comment on above: Performed By: #### C MP #### [facility] [address] [place] [address] Dr. Andrea Garcia CO2 [Moles/Vol] 24.2 mmol/L Normal 21.0-32.0 [facility] Comment on above: Performed By: #### C MP #### [facility] [address] [place] [address] Dr. Andrea Garcia Creatinine [Mass/Vol] 1.07 mg/dL Normal 0.70-1.30 [facility] Comment on above: Performed By: #### C MP #### [facility] [address] [address] [address] Andrea Garcia EGFR-AF [place]IZ[place] >60 Normal >=60 [facility] Comment on above: Performed By: #### C MP #### [facility] [address] [address] [address] Andrea Garcia EGFR-NON AF [place] CITIZ[place] >60 Normal >=60 [facility] Comment on above: Performed By: #### C MP #### [facility] [address] [address] [address] Andrea Garcia Globulin (S) [Mass/Vol] 3.5 g/dL Normal [facility] Comment on above: Performed By: #### C MP #### [facility] [address] [place] [address] Dr. Andrea Garcia Glucose [Mass/Vol] 164 mg/dL Critically high 74-106 [facility] Comment on above: Performed By: #### C MP #### [facility] [address] [address] [address] Andrea Garcia Potassium [Moles/Vol] 4.1 mmol/L Normal 3.5-5.1 [facility] Comment on above: Performed By: #### C MP #### [facility] [address] [address] [address] Andrea Garcia Protein [Mass/Vol] 6.3 g/dL Critically low 6.4-8.2 [facility] Comment on above: Performed By: #### C MP #### [facility] [address] [address] [address] Andrea Garcia Sodium [Moles/Vol] 140 mmol/L Normal 136-145 [facility] Comment on above: Performed By: #### C MP #### [facility] [address] [address] [address] Andrea Garcia Urea nitrogen [Mass/Vol] 16.0 mg/dL Normal 7.0-18.0 [facility] Comment on above: Performed By: #### C MP #### [facility] [address] [address] [address] Andrea Garcia Urea nitrogen/Creatinine [Mass ratio] 15.0 mg/mg Normal [facility] Comment on above: Performed By: #### C MP #### [facility] [address] [address] [address] Andrea Garcia XR KUB 1 VIEWon [...] ROBERT DAVENPORT Date: 2023-01-11 06:56 Normal [facility] AMYLASEon 01-10-2023 Amylase [Catalytic activity/Vol] 56 U/L Normal 25-115 [facility] Comment on above: Performed By: #### C MADM, CMP, DAMIEN, LIPA ####[facility] [address] [address]Dr. Andrea Garcia CARDIAC JEB 3-6on 3 CK [Catalytic activity/Vol] 92 U/L Normal 39-308 [facility] Comment on above: Performed By: #### C MREP #### [facility] Laboratory [address] [address] [address] Andrea Garcia CK.MB [Mass/Vol] 1.66 ng/mL Normal <=3.60 [facility] Comment on above: Performed By: #### C MREP #### [facility] [address] [address] [address] Andrea Garcia HSTROP 12.8 pg/mL Normal 4.0-76.1 [facility] Comment on above: Result Comment: CUT- OFF POINTS HAVE BEEN ESTABLISHED BASED ON THE FOURTH UNIVERSAL DEFINITIONS OF MYOCARDIAL INFARCTION. THE UPPER REFERENCE LIMIT (URL) OF TROPONIN, DEFINED THE 99TH PERCENTILE OF cTnI DISTRIBUTION IN A REFERENCE POPULATION, HAS BEEN CONFIRMED THE DECISION THRESHOLD FOR [place] DIAGNOSIS. Performed By: #### C MREP #### [facility] [address] [place], [place] [address] Dr. Andrea Garcia CK [Catalytic activity/Vol] 72 U/L Normal 39-308 [facility] Comment on above: Performed By: #### C MREP #### [facility] [address] [place], [place] [address] Dr. Andrea Garcia CK.MB [Mass/Vol] 1.89 ng/mL Normal <=3.60 [facility] Comment on above: Performed By: #### C MREP #### [facility] [address] [address] [address] Andrea Garcia HSTROP 13.5 pg/mL Normal 4.0-76.1 [facility] Comment on above: Result Comment: CUT- OFF POINTS HAVE BEEN ESTABLISHED BASED ON THE FOURTH UNIVERSAL DEFINITIONS OF MYOCARDIAL INFARCTION. THE UPPER REFERENCE LIMIT (URL) OF TROPONIN, DEFINED THE 99TH PERCENTILE OF cTnI DISTRIBUTION IN A REFERENCE POPULATION, HAS BEEN CONFIRMED THE DECISION THRESHOLD FOR [place] DIAGNOSIS. Performed By: #### C MREP #### [facility] [address] [address] [address] Andrea Garcia CARDIAC JEB ADMITon 023 CK [Catalytic activity/Vol] 85 U/L Normal 39-308 [facility] Comment on above: Performed By: #### C MADM, CMP, DAMIEN, LIPA ####[facility] [address] [place], [place] [address]MjDr. Andrea Garcia CK.MB [Mass/Vol] 1.80 ng/mL Normal <=3.60 [facility] Comment on above: Performed By: #### C MADM, CMP, DAMIEN, LIPA ####[facility] [address] [id number]. Andrea Garcia HSTROP 15.7 pg/mL Normal 4.0-76.1 [facility] Comment on above: Result Comment: CUT- OFF POINTS HAVE BEEN ESTABLISHED BASED ON THE FOURTH UNIVERSAL DEFINITIONS OF MYOCARDIAL INFARCTION. THE UPPER REFERENCE LIMIT (URL) OF TROPONIN, DEFINED THE 99TH PERCENTILE OF cTnI DISTRIBUTION IN A REFERENCE POPULATION, HAS BEEN CONFIRMED THE DECISION THRESHOLD FOR [place] DIAGNOSIS. Performed By: #### C MADM, CMP, DAMIEN, LIPA ####[facility] [address] [address]Dr. Andrea Jose MIQUEL 61 ng/mL Normal 16-96 [facility] Comment on above: Performed By: #### C MADM, CMP, DAMIEN, LIPA ####[facility] [address] [address]Dr. Kaylendahlia Garcia CBC AUTO DIFFon 01-10-2023 BASO # 0.0 103/ul Normal 0.0-0.1 [facility] Comment on above: Performed By: #### C BC ####[facility] [address] [place], [place] [address]Dr. Andrea Garcia Basophils/100 WBC (Bld) 0.5 % Normal 0.2-2.0 [facility] Comment on above: Performed By: #### C BC ####[facility] [address] [place], [place] [address]Dr. Andrea Garcia EO # 0.4 103/ul Normal 0.0-0.7 [facility] Comment on above: Performed By: #### C BC ####[facility] [address] [place], [place] [address]Dr. Andrea Garcia Eosinophils/100 WBC (Bld) 5.9 % Normal 0.9-7.0 [facility] Comment on above: Performed By: #### C BC ####[facility] [address] [place], [place] [address]Dr. Andrea Garcia Erythrocyte distribution width (RBC) [Ratio] 13.0 % Normal 11.0-15.0 [facility] Comment on above: Performed By: #### C BC ####[facility] [address] [place], [place] [address]Dr. Andrea Garcia Hematocrit (Bld) [Volume fraction] 40.0 % Critically low 42.0-54.0 [facility] Comment on above: Performed By: #### C BC ####[facility] [address] [place], [place] [address]Dr. Andrea Garcia Hemoglobin (Bld) [Mass/Vol] 13.4 g/dL Critically low 14.0-18.0 [facility] Comment on above: Performed By: #### C BC ####[facility] [address] [address]Dr. Andrea Garcia IG # 0.01 10e3/ul Normal 0.00-0.03 [facility] Comment on above: Performed By: #### C BC ####[facility] [address] [place], [place] [address]Dr. Andrea Garcia IG % 0.2 % Normal 0.0-0.5 [facility] Comment on above: Performed By: #### C BC ####[facility] [address] [place], [place] [address]DrWilder Garcia LYMPH # 2.2 103/ul Normal 1.2-3.8 [facility] Comment on above: Performed By: #### C BC ####[facility] [address] [place], [place] [address]Dr. Andrea Garcia Lymphocytes/100 WBC (Bld) 33.2 % Normal 20.5-60.0 [facility] Comment on above: Performed By: #### C BC ####[facility] [address] [place], [place] [address]DrWilder Garcia MANUAL DIFF REQ NO Normal [facility] Comment on above: Performed By: #### C BC ####[facility] [address] [place], [place] [address]DrWilder Garcia MCH (RBC) [Entitic mass] 30.5 pg Normal 25.9-34.0 [facility] Comment on above: Performed By: #### C BC ####[facility] [address] [place], [place] [address]Dr. Andrea Garcia MCHC (RBC) [Mass/Vol] 33.5 g/dL Normal 29.9-35.2 [facility] Comment on above: Performed By: #### C BC ####[facility] [address] [place], [place] [address]Dr. Andrea Garcia MCV (RBC) [Entitic vol] 90.9 fL Normal 80.0-94.0 [facility] Comment on above: Performed By: #### C BC ####[facility] [address] [place], [place] [address]DrWilder Andrea Garcia MONO # 0.4 103/ul Normal 0.3-0.8 [facility] Comment on above: Performed By: #### C BC ####[facility] [address] [place], [place] [address]DrWilder Andrea Jose Monocytes/100 WBC (Bld) 6.0 % Normal 1.7-12.0 [facility] Comment on above: Performed By: #### C BC ####[facility] [address] [place], [place] [address]DrWilder Andrea Garcia NEUT # 3.5 103/ul Normal 1.4-6.5 [facility] Comment on above: Performed By: #### C BC ####[facility] [address] [place], [place] [address]DrWilder Andrea Jose Neutrophils/100 WBC (Bld) 54.2 % Normal 43.0-75.0 [facility] Comment on above: Performed By: #### C BC ####[facility] [address] [place], [place] [address]DrWilder Andrea Jose Platelet mean volume (Bld) [Entitic vol] 9.7 fL Normal 9.5-13.5 [facility] Comment on above: Performed By: #### C BC ####[facility] [address] [place], [place] [address]DrWilder Andrea Jose PLT 225 103/ul Normal 150-450 [facility] Comment on above: Performed By: #### C BC ####[facility] [address] [place], [place] [address]DrWilder Abdullahidahlia Jose RBC 4.40 106/ul Critically low 4.70-6.10 [facility] Comment on above: Performed By: #### C BC ####[facility] [address] [place], [place] [address]DrWilder Garcia WBC 6.5 103/ul Normal 4.0-11.0 [facility] Comment on above: Performed By: #### C BC ####[facility] [address] [id number] Andrea Jose CT ABD/PELV W CONon 01-11-20 CT ABD/PELV W CON EXAM: CT scan [...] by: ADITYA OATES Date: 2023-01-10 07:41 Normal [facility] CULTURE BLOODon 01-10-2023 Microscopic examination of blood, culture Culture Observations: NO GROWTH AT 36-48 HOURS. FINAL TO FOLLOW. Normal [facility] Comment on above: Performed By: #### B LDCX2 ####[facility] [address] [place], [place] [address]BiWilder Andrea Jose Microscopic examination of blood, culture Culture Observations: NO GROWTH AT 36-48 HOURS. FINAL TO FOLLOW. Normal [facility] Comment on above: Performed By: #### B LDCX1 ####[facility] [address] [address]Dr. Andrea Garcia ER URINE PROFILEon 3 Bilirubin Ql (U) Negative Normal NEGATIVE [facility] Comment on above: Performed By: #### U MICRO, ERUR #### [facility] Laboratory [address] [address] [address] Andrea Garcia Clarity (U) CLEAR Normal CLEAR [facility] Comment on above: Performed By: #### U MICRO, ERUR #### [facility] Laboratory [address] [address] [address] Andrea Garcia Color (U) LT. YELLOW Normal YELLOW [facility] Comment on above: Performed By: #### U MICRO, ERUR #### [facility] Laboratory [address] [place] [address] Dr. Andrea Garcia ERUAHD A micrscopic examina tion will be performed if indicated. Normal [facility] Comment on above: Performed By: #### U MICRO, ERUR #### [facility] Laboratory [address] [address] [address] Andrea Garcia Glucose Ql (U) Negative Normal NEGATIVE [facility] Comment on above: Performed By: #### U MICRO, ERUR #### [facility] [address] [address] [address] Andrea Garcia Hemoglobin Ql (U) TRACE-INTACT Abnormal NEGATIVE [facility] Comment on above: Performed By: #### U MICRO, ERUR #### [facility] [address] [address] [address] Andrea Garcia Ketones Ql (U) Negative Normal NEGATIVE [facility] Comment on above: Performed By: #### U MICRO, ERUR #### [facility] [address] [address] [address] Andrea Garcia LEUKOCYTES Negative Normal NEGATIVE [facility] Comment on above: Performed By: #### U MICRO, ERUR #### [facility] [address] [address] [address] Andrea Garcia Nitrite Ql (U) Negative Normal NEGATIVE [facility] Comment on above: Performed By: #### U MICRO, ERUR #### [facility] [address] [place] [address] Dr. Andrea Garcia pH (U) 5.5 [pH] Normal 5-9 [facility] Comment on above: Performed By: #### U MICRO, ERUR #### [facility] [address] [place] [address] Dr. Andrea Garcia SPEC GRAVITY 1.015 Normal 1.005-<=1. 025 [facility] Comment on above: Performed By: #### U MICRO, ERUR #### [facility] [address] [place] [address] Dr. Andrea Garcia UA PROTEIN Negative Normal NEGATIVE/ TRACE [facility] Comment on above: Performed By: #### U MICRO, ERUR #### [facility] [address] [place] [address] Dr. Andrea Garcia UR MICRO IND INDICATED Normal [facility] Comment on above: Performed By: #### U MICRO, ERUR #### [facility] [address] [place] [address] Dr. Andrea Garcia Urobilinogen Qn (U) 0.2 {Temo'U}/dL Normal 0.2 - 1. 0 [facility] Comment on above: Performed By: #### U MICRO, ERUR #### [facility] [address] [place] [address] Dr. Andrea Garcia LACTATE/LACTIC ACIDon 2022 Lactate [Moles/Vol] 0.8 mmol/L Normal 0.4-2.0 [facility] Comment on above: Performed By: #### L ACT #### [facility] [address] [place] [address] Dr. Andrea Garcia Lactate [Moles/Vol] 0.9 mmol/L Normal 0.4-2.0 [facility] Comment on above: Performed By: #### L ACT #### [facility] [address] [place] [address] Dr. Andrea Garcia LIPASEon 01-10-2023 Lipase [Catalytic activity/Vol] 71.0 U/L Critically low 73.0-393.0 [facility] Comment on above: Performed By: #### C MADM, CMP, DAMIEN, LIPA ####[facility] [address] [address]Dr. Andrea Garcia PROF 14(COMP METB)on 023 Albumin [Mass/Vol] 3.2 g/dL Critically low 3.4-5.0 [facility] Comment on above: Performed By: #### C MADM, CMP, DAMIEN, LIPA ####[facility] [address] [address]Dr. Andrea Garcia Albumin/Globulin [Mass ratio] 0.9 {ratio} Normal [facility] Comment on above: Performed By: #### C MADM, CMP, DAMIEN, LIPA ####[facility] [address] [address]Dr. Andrea Garcia ALP [Catalytic activity/Vol] 68 U/L Normal 46-116 [facility] Comment on above: Performed By: #### C MADM, CMP, DAMIEN, LIPA ####[facility] [address] [address]Dr. Andrea Garcia ALT [Catalytic activity/Vol] 30 U/L Normal 16-63 [facility] Comment on above: Performed By: #### C MADM, CMP, DAMIEN, LIPA ####[facility] [address] [address]Dr. Andrea Garcia Anion gap [Moles/Vol] 14.2 mmol/L Normal [facility] Comment on above: Performed By: #### C MADM, CMP, DAMIEN, LIPA ####[facility] [address] [address]Dr. Andrea Garcia AST [Catalytic activity/Vol] 18 U/L Normal 15-37 [facility] Comment on above: Performed By: #### C MADM, CMP, DAMIEN, LIPA ####[facility] [address] [address]Dr. Andrea Garcia Bilirubin [Mass/Vol] 0.5 mg/dL Normal 0.2-1.0 [facility] Comment on above: Performed By: #### C MADM, CMP, DAMIEN, LIPA ####[facility] [address] [address]Dr. Andrea Garcia Calcium [Mass/Vol] 8.5 mg/dL Normal 8.5-10.1 [facility] Comment on above: Performed By: #### C MADM, CMP, DAMIEN, LIPA ####[facility] [address] [address]Dr. Andrea Garcia Chloride [Moles/Vol] 108 mmol/L Critically high 98-107 [facility] Comment on above: Performed By: #### C MADM, CMP, DAMIEN, LIPA ####[facility] [address] [address]Dr. Andrea Garcia CO2 [Moles/Vol] 22.1 mmol/L Normal 21.0-32.0 [facility] Comment on above: Performed By: #### C MADM, CMP, DAMIEN, LIPA ####[facility] [address] [address]Dr. Andrea Garcia Creatinine [Mass/Vol] 1.06 mg/dL Normal 0.70-1.30 [facility] Comment on above: Performed By: #### C MADM, CMP, DAMIEN, LIPA ####[facility] [address] [address]Dr. Andrea Garcia EGFR-AF [place] >60 Normal >=60 [facility] Comment on above: Performed By: #### C MADM, CMP, DAMIEN, LIPA ####[facility] [address] [address]Dr. Andrea Garcia EGFR-NON AF [place]IZ[place] >60 Normal >=60 [facility] Comment on above: Performed By: #### C MADM, CMP, DAMIEN, LIPA ####[facility] [address] [address]Dr. Andrea Garcia Globulin (S) [Mass/Vol] 3.5 g/dL Normal [facility] Comment on above: Performed By: #### C MADM, CMP, DAMIEN, LIPA ####[facility] [address] [address]Dr. Andrea Garcia Glucose [Mass/Vol] 110 mg/dL Critically high 74-106 [facility] Comment on above: Performed By: #### C MADM, CMP, DAMIEN, LIPA ####[facility] [address] [address]Dr. Andrea Garcia Potassium [Moles/Vol] 4.3 mmol/L Normal 3.5-5.1 [facility] Comment on above: Performed By: #### C MADM, CMP, DAMIEN, LIPA ####[facility] [address] [address]Dr. Andrea Garcia Protein [Mass/Vol] 6.7 g/dL Normal 6.4-8.2 [facility] Comment on above: Performed By: #### C MADM, CMP, DAMIEN, LIPA ####[facility] [address] [address]Dr. Andrea Garcia Sodium [Moles/Vol] 140 mmol/L Normal 136-145 [facility] Comment on above: Performed By: #### C MADM, CMP, DAMIEN, LIPA ####[facility] [address] [address]Dr. Andrea Garcia Urea nitrogen [Mass/Vol] 20.0 mg/dL Critically high 7.0-18.0 [facility] Comment on above: Performed By: #### C MADM, CMP, DAMIEN, LIPA ####[facility] [address] [address]Dr. Andrea Garcia Urea nitrogen/Creatinine [Mass ratio] 18.9 mg/mg Normal [facility] Comment on above: Performed By: #### C MADM, CMP, DAMIEN, LIPA ####[facility] [address] [address]Dr. Andrea Garcia URINE MICROSCOPIC ONLYon BACTERIA NONE SEEN Normal NONE SEEN [facility] Comment on above: Performed By: #### U MICRO, ERUR #### [facility] [address] [address] [address] Andrea Garcia Bacteria identified Cx Nom (U) NOT INDICATED Normal [facility] Comment on above: Performed By: #### U MICRO, ERUR #### [facility] [address] [place] [address] Dr. Andrea Garcia CAST NONE SEEN Normal NONE SEEN [facility] Comment on above: Performed By: #### U MICRO, ERUR #### [facility] [address] [place] [address] Dr. Andrea Garcia Crystals LM Nom (Urine sed) NONE SEEN Normal NONE SEEN [facility] Comment on above: Performed By: #### U MICRO, ERUR #### [facility] [address] [place] [address] Dr. Andrea Garcia Epithelial cells LM Ql (Urine sed) NONE SEEN Normal NONE SEEN /RARE [facility] Comment on above: Performed By: #### U MICRO, ERUR #### [facility] [address] [place] [address] Dr. Andrea Garcia MUCOUS NONE SEEN Normal NONE SEEN [facility] Comment on above: Performed By: #### U MICRO, ERUR #### [facility] [address] [place] [address] Dr. Andrea Garcia RBC 0-2 Normal 0-2 [facility] Comment on above: Performed By: #### U MICRO, ERUR #### [facility] [address] [place] [address] Dr. Andrea Garcia WBC 0-2 Abnormal NONE SEEN [facility] Comment on above: Performed By: #### U MICRO, ERUR #### [facility] [address] [place] [address] Dr. Andrea Garcia XR CHEST 1 Von 01-10-2023 XR CHEST 1 V Exam: Radiographs: X R CHEST 1 V Reason for exam: Nausea/vomiting Comparison: None IMPRESSION: Negative chest. 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 Vital Signs Date Time Vital Sign Value Performing Clinician Ethan liu 01-09-2024 19:01-0400 Diastolic blood pressure 99 mm[Hg] MD Rodriguez Godwin Work Phone: [facility] 01-09-2024 19:01-0400 Heart rate 84 /min MD Rodriguez Godwin Work Phone: [facility] 01-09-2024 19:01-0400 Respiratory rate 18 /min MD Rodriguez Godwin Work Phone: [facility] 01-09-2024 19:01-0400 SaO2% (BldA) [Mass fraction] 97 % MD Rodriguez Godwin Work Phone: [facility] 01-09-2024 19:01-0400 Systolic blood pressure 190 mm[Hg] MD Rodriguez Godwin Work Phone: [facility] 01-09-2024 14:29-0400 Body height 187.96 cm MD Rodriguez Godwin Work Phone: [facility] 01-09-2024 14:29-0400 Body temperature 98.3 [degF] MD Rodriguez Godwin Work Phone: [facility] 01-09-2024 14:29-0400 Body weight 83 kg MD Rodriguez Godwin Work Phone: [facility] 12-18-2023 13:10-0400 Heart rate 85 /min MD Rodriguez Godwin Work Phone: [facility] 12-18-2023 13:09-0400 Body temperature 97.9 [degF] MD Rodriguez Godwin Work Phone: [facility] 12-18-2023 13:09-0400 Diastolic blood pressure 77 mm[Hg] MD Rodriguez Godwin Work Phone: [facility] 12-18-2023 13:09-0400 Respiratory rate 18 /min MD Rodriguez Godwin Work Phone: [facility] 12-18-2023 13:09-0400 SaO2% (BldA) [Mass fraction] 97 % MD Rodriguez Godwin Work Phone: [facility] 12-18-2023 13:09-0400 Systolic blood pressure 161 mm[Hg] MD Rodriguez Godwin Work Phone: [facility] 12-18-2023 13:06-0400 Body height 186.69 cm MD Rodriguez Godwin Work Phone: [facility] 12-18-2023 13:06-0400 Body weight 81 kg MD Rodriguez Godwin Work Phone: [facility] 03-03-2023 13:30-0400 Diastolic blood pressure 100 mm[Hg] MD Rodriguez Godwin Work Phone: [facility] 03-03-2023 13:30-0400 Heart rate 59 /min MD Rodriguez Godwin Work Phone: [facility] 03-03-2023 13:30-0400 Respiratory rate 18 /min MD Rodriguez Godwin Work Phone: [facility] 03-03-2023 13:30-0400 SaO2% (BldA) [Mass fraction] 99 % MD Rodriguez Godwin Work Phone: [facility] 03-03-2023 13:30-0400 Systolic blood pressure 160 mm[Hg] MD Rodriguez Godwin Work Phone: [facility] 03-03-2023 11:36-0400 Body height 175.26 cm MD Rodriguez Godwin Work Phone: [facility] 03-03-2023 11:36-0400 Body temperature 98 [degF] MD Rodriguez Godwin Work Phone: [facility] 03-03-2023 11:36-0400 Body weight 84.3 kg MD Rodriguez Godwin Work Phone: [facility] Encounters Encounter Date Encounter Type Care Provider Facility Start: 04-06-2024 End: 04-06-2024 ambulatory [facility] Start: 01-09-2024 End: 01-09-2024 Emergency department patient visit Rodriguez Godwin Facility:[facility] Start: 01-09-2024 End: 01-09-2024 Emergency department patient visit MD Rodriguez Godwin Work Phone: [facility] Work Phone: Start: 12-18-2023 End: 12-18-2023 Emergency department patient visit Marie Garrison Facility:[facility] Start: 12-18-2023 End: 12-18-2023 Emergency department patient visit MD Rodriguez Godwin Work Phone: [facility] Work Phone: Start: 12-09-2023 End: 12-09-2023 ambulatory [facility] Start: 06-07-2023 End: 06-07-[address] [facility] Start: 05-27-2023 End: 05-27-2023 ambulatory [facility] Start: 03-03-2023 End: 03-03-2023 Emergency department patient visit Ramiro Cortez Facility:[facility] Start: 03-03-2023 End: 03-03-2023 Emergency department patient visit MD Rodriguez Godwin Work Phone: [facility] Work Phone: Start: 01-10-2023 End: 01-11-2023 Evaluation and management of inpatient DR DOCTOR CROCKER Facility:[facility] Procedures Date Procedure Procedure Detail Performing Clinician Start: 01-09-2024 CT angiography of thorax MD Rodriguez Godwin Work Phone: Start: 01-09-2024 Plain chest X-ray MD Valdivia Work Phone: Start: 03-03-2023 Plain chest X-ray MD Valdivia Work Phone: Plan of Treatment Date Care Activity Detail Author Start: 12-18-2023 [facility] Patient Education [facility] Work Phone: Patient referral [facility] Work Phone: Payers Date Payer Category Payer Self-pay [id number] 1960 Medicare [id number] 1950 Unknown [id number] Unknown [id number] Unknown [id number] Unknown [id number] Social History Date Type Detail Facility Start: 03-03-2023 End: 01-09-2024 Tobacco smoking status NHIS Ex-smoker (finding) [facility] Start: 1950 Sex Assigned At Male F [facility] Progress note 04-06-2024 Note Date & Type Note Facility 04-06-2024 Note [facility] Subjective Jeb Riddle is a 73 y.o. year old male patient here for a follow up echo from January, he was amitted to [facility], for chest pain a couple weeks ago and had another echo. He had a lipid panel yesterday. At last appointment his statin was changed. 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 He still rides his bike to [place] everyday, still active. Patient Active Problem List [...] He was admitted to the hospital at [facility] and was started on anticoagulation therapy. Today [...] metoprolol succinate XL (more content not included)... [facility] Progress note 12-09-2023 Note Date & Type Note Facility 12-09-2023 Note 8K can you read, out of the so I can make changes in [facility] Subjective Jeb Riddle is a [...] presented to the emergency room at the [facility] and investigation including a CT scan of [...] Rfl: 3 prav (more content not included)... [facility] Progress note 06-07-2023 Note Date [...] Heart Sounds: norm (more content not included)... [facility] Progress note 05-27-2023 Note Date & Type Note Facility 05-27-2023 Note [facility] Subjective [...] Rate 04/06/2023 80 Atrial Rate 04/06/2023 80 OR Interval 04/06/2023 176 QRS DURATION 04/06/2023 98 QT Interval 04/06/2023 396 QTC CALCULATION(BAZETT) 04/06/2023 456 P [place] 04/06/2023 79 R-Carmel 04/06/2023 75 T Wave [place] 04/06/2023 73 Imaging and other tests Cardiac catheterization 04/06/2023: Impression/Findings: Coronary angiogram shows non-obstructive coronary artery disease. Plan: Medical therapy for (more content not included)... [facility] Evaluation note Note Date & Type Note Facility Evaluation note No assessment information availa ble [facility] Work Phone: Hospital Discharge instructions Note Date & Type Note Facility Hospital Discharge instructions Additional Instructions Continue Pepcid once or twice a day as needed [employer] diet Follow-up with your family doctor for recheck Return to the ER for worsening pain shortness of breath fever or any other concerns [facility] Work Phone: Summary Purpose Family [...] section and content) DATE CREATED AUTHOR 10/07/2021 [facility] Me dical Specialist DATE CREATED AUTHOR AUTHOR'S ORGANIZ ATION 01/21/2023 [facility] DATE CREATED AUTHOR AUTHOR'S ORGANIZ ATION 01/09/2024 [facility] DATE CREATED AUTHOR AUTHOR'S ORGANIZ ATION 04/20/2024 [facility] Teams (unrecognized sec tion and content) [...] 2024 End: January 09, 2024 Naima Boyd [facility] Emergency Provider Active Start: January 09, 2024 [...] BE BASED ON THE PRIMARY CLINICAL RECORDS. [facility] [employer] [facility]. provides no warranty or guarantee of the accuracy or completeness of information in this document.
[2024-04-20 13:27] LABS: Prostate Specific Antigen Scrn 6.74 ng/mL (<=4.00)
[2024-04-21 08:12] LABS: CA 19-9 8 U/mL (0-35); CEA 4.1 ng/mL (0.0-4.7)
== END 2024-04-20 11:41 | disposition home or self-care (01) ==
LOC: LAB 11:43
PROVIDERS: Family Provider Family Medicine; PCP Family Medicine; Visit Provider Family Medicine
DX: I26.99 Other pulmonary embolism without acute cor pulmonale (principal); I80.202 Phlebitis and thrombophlebitis of unspecified deep vessels of left lower extremity; Z12.5 Encounter for screening for malignant neoplasm of prostate
CPT/HCPCS: 36415; 82378; 86301; G0103

== ENCOUNTER 2024-04-27 12:04 | Outpatient (OUT) | payer MEDICARE, OTHER, SELFPAY ==
--- OUTSIDE RECORDS SUMMARY | 2024-04-27 12:11 | XMS_ITS | CCD ---
Author Organization [facility] Care Team Providers Care Control System Computer Scientist Name Role Phone DR BEHZAD CROCKER Primary Care Unavailable DANIEL ., JUNI Attending Unavailable DANIEL ., JUNI Admitting Unavailable DR ROBERT DAVENPORT V Consulting Unavailable PITER GROSSMAN Consulting Unavailable DANIEL ., JUNI Consulting Unavailable DIAB ., GRAYSON Consulting Unavailable ADITYA OATES Consulting Unavailable MD Rodriguez Godwin Primary Care Provider [phone] DO Ramiro Cortez Emergency Provider MD Rodriguez Godwin Primary Care Provider [phone] KYA Garrison Emergency Provider Deb, APARTMENT MANAGER-BC Naima Phelan Emergency Provider Rodriguez Godwin Primary [...] Propensity to adverse reactions 03-03-20 Gastrointestinal Upset [facility] (1 source) atorvastatin; Translations: [ATORVASTATIN] Drug Allergy 04-06-20 [facility] Repository Medications Current Medications Medication Drug Class(es) [...] disease (2 sources) Atherosclerotic heart disease of [place] coronary artery without angina pectoris; Translations: [Atherosclerotic heart disease of [place] coronary artery without angina pectoris] Onset: 12-09-2023 Chronic Essential hypertension (3 sources) Essential (primary) hypertension; Translations: [ESSENTIAL PRIMARY HYPERTENSION] Onset: 01-12-2023 Chronic Other aftercare (1 source) custodial (current) use of systemic steroids; Translations: [HALF-WAY USE OF SYSTEMIC STEROIDS] Onset: 01-12-2023 Episodic Other aftercare (1 source) Other termite helper (current) drug therapy; Translations: [OTH HALF-WAY CURRENT DRUG THERAPY] Onset: 01-12-2023 Episodic Other [...] for cancer screening. Pt has been notified [facility] Office Visiton 04-06-2024 Follow-up visit [id number] Jeb Riddle 1950 M Date Provider Department Center 04/06/2024 JESSICA JAMISON MISSY [facility] Family History Problem Relation Age of Onset Diabetes Mother Coronary artery disease Mother Heart attack Father Diabetes Father Coronary artery disease Father Family Status - Relation Status Age at Mother Father Level of Service:21478 MI OFFICE/OUTPATIENT ESTABLISHED MOD MDM 30 MIN [facility] 36on 02-17-2024 36 Patient called back and said he is taking meds as prescribed at last visit with Dr. Forrester. I made him apt with Dr. Forrester end of Mar since he is not here in Apr. [facility] 36on 02-15-2024 36 Regarding echo from 02/02/2024: MD Yuridia Herman MA Has he been taking meds as I recommended at last visit? 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 He should come for a visit in 3 months. LM w/ sister Mary to return my call. [facility] Activated partial thrombopla stin time (aPTT) in platelet poor plasma by coagulation aOrdered By: Naima Boyd on 01-09-2024 aPTT Coag (PPP) [Time] 29.1 s 25.1-36.5 [facility] Comment on above: A hematocrit value g reater than 55% may lead to inaccurate results in coagulation testing. Patients having hematocrit values >55% require a special collection tube for coagulation studies. Please contact the laboratory at [phone] for redraw instructions. B-Type Natriuretic Peptideon 01-09-2024 Natriuretic peptide B (Bld) [Mass/Vol] 172.0 pg/mL High 5-100 [facility] Comment on above: Result Comment: PERF ORMED BY: [facility] [address] [place] [address] PATHOLOGIST [employer] LOCATION MANAGER RADHA BARRON M.D. Performed By: #### B MEDICAL LIBRARIAN, HS TROP, BMP, CK, DIFF CBC ####[address] Basic Metabolic Panelon 12-14 Anion gap [Moles/Vol] Not performed Normal 6.0-15.0 [facility] Comment on above: Performed By: #### B MEDICAL LIBRARIAN, HS TROP, BMP, CK, DIFF CBC ####[address] Calcium [Mass/Vol] 8.7 mg/dL Normal 8.6-10.3 [facility] Comment on above: Performed By: #### B MEDICAL LIBRARIAN, HS TROP, BMP, CK, DIFF CBC ####[address] Chloride [Moles/Vol] 109 mmol/L High 98-107 [facility] Comment on above: Performed By: #### B MEDICAL LIBRARIAN, HS TROP, BMP, CK, DIFF CBC ####[address] CO2 [Moles/Vol] 22.4 mmol/L Normal 21.0-31.0 [facility] Comment on above: Performed By: #### B MEDICAL LIBRARIAN, HS TROP, BMP, CK, DIFF CBC ####[place] [id number] [place] [id number] [facility] Creatinine [Mass/Vol] 1.16 mg/dL Normal 0.70-1.30 [facility] Comment on above: Performed By: #### B MEDICAL LIBRARIAN, HS TROP, BMP, CK, DIFF CBC ####[place] [id number] [facility] Creatinine Clr Calc Pharmacy 64.96 Normal [facility] Comment on above: Result Comment: PERF ORMED BY: [facility] [address] [place] [address] PATHOLOGIST [employer] LOCATION MANAGER RADHA BARRON M.D. Performed By: #### B MEDICAL LIBRARIAN, HS TROP, BMP, CK, DIFF CBC ####[address] GFR/1.73 sq M.predicted MDRD (S/P/Bld) [Vol rate/Area] mL/min/{1.73_m2} Normal [facility] Comment on above: Performed By: #### B MEDICAL LIBRARIAN, HS TROP, BMP, CK, DIFF CBC ####[address] Glucose [Mass/Vol] 95 mg/dL Normal 70-100 [facility] Comment on above: Result Comment: [place] Glucose Reference Range is dependent on time and content of last meal. Glucose of more than 200 mg/dL in a nonstressed, ambulatory subject supports the diagnosis of Diabetes Mellitus. ADA recommended reference range Performed By: #### B MEDICAL LIBRARIAN, HS TROP, BMP, CK, DIFF CBC ####[place] [id number] [facility] Potassium Normal 3.5-5.1 [facility] Comment on above: Result Comment: Spec imen hemolyzed, redraw requested Performed By: #### B MEDICAL LIBRARIAN, HS TROP, BMP, CK, DIFF CBC ####[place] [phone] [facility] Sodium [Moles/Vol] 142 mmol/L Normal 136-145 [facility] Comment on above: Performed By: #### B MEDICAL LIBRARIAN, HS TROP, BMP, CK, DIFF CBC ####[facility] [id number] [place] [id number] [facility] Urea nitrogen [Mass/Vol] 20 mg/dL Normal 7-25 [facility] Comment on above: Performed By: #### B MEDICAL LIBRARIAN, HS TROP, BMP, CK, DIFF CBC ####[facility] [id number] [place] [id number] [facility] Basophils Auto (Bld) [#/Vol] Ordered By: Naima Bullimore on 01-09-2024 Basophils (Bld) [#/Vol] N/A [facility] Basophils/100 WBC Auto (Bld) Ordered By: Naima Bullimore on 01-09-2024 Basophils/100 WBC (Bld) N/A [facility] Basophils/100 WBC Manual cnt (Bld)Ordered By: Naima Boyd on 01-09-2024 Basophils/100 WBC (Bld) 0 % 0-[address] [facility] [address] angio chest PE protocolon 01-09-2024 CT angio chest PE protocol [facility] Main [place] [address] [place] [address] CT Scan Report Signed Patient: Jeb Riddle MR#: [id number] : 1950 Acct:[id number] Age/Sex: 73 / M ADM Date: 01/09/24 Loc: ER Room: Type: [facility] ER Attending Dr: Copies to: SABA [...] Jeb Collins M.D.01/09/2024 6:17 PM Dictation Location: [place] [address] Transcribed By: [facility] 01/09/241816 Dictated By: Jeb Collins II, MD 01/09/241810 Signed By: 01/09/241816 Normal [facility] Calcium [Mass/volume] in Ser um or PlasmaOrdered By: Naima Boyd on 01-09-2024 Calcium [Mass/Vol] 8.7 mg/dL 8.6-10.3 [facility] Carbon dioxide, total [Moles /volume] in Serum or PlasmaOrdered By: Naima Boyd on 01-09-2024 CO2 [Moles/Vol] 22.4 mmol/L 21.0-31.0 [facility] Chloride [Moles/volume] in S pooja or PlasmaOrdered By: Naima Boyd on 01-09-2024 Chloride [Moles/Vol] 109 mmol/L 98-107 [facility] Coagulation Profileon 2023 aPTT Coag (Bld) [Time] 29.1 s Normal 25.1-36.5 [facility] Comment on above: Order Comment: REDRA W Result Comment: A he matocrit value greater than 55% may lead to inaccurate results in coagulation testing. Patients having hematocrit values >55% require a special collection tube for coagulation studies. Please contact the laboratory at [phone] for redraw instructions. Performed By: #### P P, DDIMER ####[place] [id number] [facility] INR Coag (PPP) [Relative time] 1.0 {INR} Normal [facility] Comment on above: Order Comment: [...] 4.5 Performed By: #### P P, DDIMER ####[place] [id number] [facility] PT Coag (PPP) [Time] 11.9 s Normal 9.0-12.9 [facility] Comment on above: Order Comment: REDRA W Result Comment: A he matocrit value greater than 55% may lead to inaccurate results in coagulation testing. Patients having hematocrit values >55% require a special collection tube for coagulation studies. Please contact the laboratory at [phone] for redraw instructions. Performed By: #### P P, DDIMER ####[place] [id number] [facility] Creatine Kinaseon 01-09-2024 CK [Catalytic activity/Vol] 81 U/L Normal - [facility] Comment on above: Performed By: #### B MEDICAL LIBRARIAN, HS TROP, BMP, CK, DIFF CBC ####[place] [id number] [facility] Creatine kinase [Enzymatic a ctivity/volume] in Serum or PlasmaOrdered By: Naima Boyd on 01-09-2024 CK [Catalytic activity/Vol] 81 U/L 30-223 [facility] Creatinine [Mass/volume] in Serum or PlasmaOrdered By: Naima Boyd on 01-09-2024 Creatinine [Mass/Vol] 1.16 mg/dL 0.70-1.30 [facility] D-Dimer High Sensitivityon 0 01-09-2024 D-Dimer High Sensitivity 1905 ng/mL High 0-243 [facility] Comment on above: Order Comment: [...] coagulation studies. Please contact the laboratory at [phone] for redraw instructions. PERFORMED BY: [facility] [address] [place] [address] PATHOLOGIST [employer] LOCATION MANAGER RADHA BARRON M.D. Performed By: #### P P, DDIMER ####[place] [id number] [facility] Diff and CBCon 01-09-2024 Basophils/100 WBC (Bld) 0 % Normal 0-2 [facility] Comment on above: Performed By: #### B MEDICAL LIBRARIAN, HS TROP, BMP, CK, DIFF CBC ####[place] [id number] [facility] Eosinophils/100 WBC (Bld) 4 % High 1-3 [facility] Comment on above: Performed By: #### B MEDICAL LIBRARIAN, HS TROP, BMP, CK, DIFF CBC ####[place] [id number] [facility] Erythrocyte distribution width (RBC) [Ratio] 14.9 % High 12.0-14.8 [facility] Comment on above: Performed By: #### B MEDICAL LIBRARIAN, HS TROP, BMP, CK, DIFF CBC ####[address] Hematocrit (Bld) [Volume fraction] 41.9 % Normal 38.8-50.0 [facility] Comment on above: Performed By: #### B MEDICAL LIBRARIAN, HS TROP, BMP, CK, DIFF CBC ####[address] Hemoglobin (Bld) [Mass/Vol] 14.1 g/dL Normal 13.0-17.0 [facility] Comment on above: Performed By: #### B MEDICAL LIBRARIAN, HS TROP, BMP, CK, DIFF CBC ####[address] Lymphocytes/100 WBC (Bld) 27 % Normal 18-42 [facility] Comment on above: Performed By: #### B MEDICAL LIBRARIAN, HS TROP, BMP, CK, DIFF CBC ####[address] MCH (RBC) [Entitic mass] 32.0 pg Normal 27.5-35.2 [facility] Comment on above: Performed By: #### B MEDICAL LIBRARIAN, HS TROP, BMP, CK, DIFF CBC ####[address] MCV (RBC) [Entitic vol] 95.1 fL Normal 83.5-101 [facility] Comment on above: Performed By: #### B MEDICAL LIBRARIAN, HS TROP, BMP, CK, DIFF CBC ####[address] Mean Corpuscular HGB Conc 33.6 g/dL Normal 32.5-35.6 [facility] Comment on above: Performed By: #### B MEDICAL LIBRARIAN, HS TROP, BMP, CK, DIFF CBC ####[address] Monocytes/100 WBC (Bld) 25.58 % High 0.00-20.00 [facility] Comment on above: Result Comment: For adults in ED, MDW > 20.0 may be associated with a higher risk of sepsis during the first 12 hrs of hospital admission Performed By: #### B MEDICAL LIBRARIAN, HS TROP, BMP, CK, DIFF CBC ####[address] Monocytes/100 WBC (Bld) 7 % Normal 2-11 [facility] Comment on above: Performed By: #### B MEDICAL LIBRARIAN, HS TROP, BMP, CK, DIFF CBC ####[place] [id number] [facility] Nucleated Red Blood Cell 0 /100{WBC} Normal 0-0 [facility] Comment on above: Performed By: #### B MEDICAL LIBRARIAN, HS TROP, BMP, CK, DIFF CBC ####[address] Platelet Estimate Normal Normal Normal [facility] Comment on above: Performed By: #### B MEDICAL LIBRARIAN, HS TROP, BMP, CK, DIFF CBC ####[place] [phone] [facility] Platelet mean volume (Bld) [Entitic vol] 8.6 fL Normal 6.6-10.1 [facility] Comment on above: Performed By: #### B MEDICAL LIBRARIAN, HS TROP, BMP, CK, DIFF CBC ####[address] Platelet Morphology Normal Normal Normal [facility] Comment on above: Performed By: #### B MEDICAL LIBRARIAN, HS TROP, BMP, CK, DIFF CBC ####[place] [id number] [facility] Platelets (Bld) [#/Vol] 240 10*3/uL Normal 150-450 [facility] Comment on above: Performed By: #### B MEDICAL LIBRARIAN, HS TROP, BMP, CK, DIFF CBC ####[place] [id number] [facility] Plt Comment SEE COMMENT BELOW Normal [facility] Comment on above: Result Comment: NO C LOTS, NO CLUMPS, SHORT DRAW LFM PERFORMED BY: [facility] [address] [place] [address] PATHOLOGIST [employer] LOCATION MANAGER RADHA BARRON M.D. Performed By: #### B MEDICAL LIBRARIAN, HS TROP, BMP, CK, DIFF CBC ####[address] RBC (Bld) [#/Vol] 4.41 10*6/uL Normal 3.90-5.60 [facility] Comment on above: Performed By: #### B MEDICAL LIBRARIAN, HS TROP, BMP, CK, DIFF CBC ####[address] RBC morphology finding Nom (Bld) Normal Normal Normal [facility] Comment on above: Performed By: #### B MEDICAL LIBRARIAN, HS TROP, BMP, CK, DIFF CBC ####[address] Segmented neutrophils/100 WBC (Bld) 62 % Normal 50-70 [facility] Comment on above: Performed By: #### B MEDICAL LIBRARIAN, HS TROP, BMP, CK, DIFF CBC ####[address] WBC (Bld) [#/Vol] 7.6 10*3/uL Normal 4.1-10.5 [facility] Comment on above: Performed By: #### B MEDICAL LIBRARIAN, HS TROP, BMP, CK, DIFF CBC ####[address] WBC (Bld) [#/Vol] 8.4 10*3/uL Normal 4.1-10.5 [facility] Comment on above: Performed By: #### B MEDICAL LIBRARIAN, HS TROP, BMP, CK, DIFF CBC ####[address] ECG 12 lead ECGon 01-09-2024 ECG 12 lead ECG [facility] Main [place] [address] [place] [address] Electrocardiograph Report Signed Patient: Jeb Riddle MR#: [id number] : 1950 Acct:[id number] Age/Sex: 73 / M ADM Date: 01/09/24 Loc: ER Room: Type: [facility] Attending Dr: Ordering Provider: SABA Blankenship [...] By Adam Patterson DO 1828 Normal [facility] Eosinophils Auto (Bld) [#/Vo l]Ordered By: Naima Boyd on 01-09-2024 Eosinophils (Bld) [#/Vol] N/A [facility] Eosinophils/100 WBC Auto (Bl d)Ordered By: Naima Boyd on 01-09-2024 Eosinophils/100 WBC (Bld) N/A [facility] Eosinophils/100 WBC Manual c nt (Bld)Ordered By: Naima Boyd on 01-09-2024 Eosinophils/100 WBC (Bld) 4 % 1-3 [facility] Erythrocyte distribution wid th Auto (RBC) [Ratio]Ordered By: Naima Boyd on 01-09-2024 Erythrocyte distribution width (RBC) [Ratio] 14.9 % 12.0-14.8 [facility] Fibrin D-dimer [Presence] in Platelet poor plasma by Latex agglutinationOrdered By: Naima Boyd on 01-09-2024 Fibrin D-dimer LA Ql (PPP) 1905 ng/mL 0-243 [facility] Comment on above: The reference range [...] coagulation studies. Please contact the laboratory at [phone] for redraw instructions. Glucose [Mass/volume] in Ser um or PlasmaOrdered By: Naima Boyd on 01-09-2024 Glucose [Mass/Vol] 95 mg/dL 70-100 [facility] Comment on above: ADA recommended refe rence rangeRandom Glucose Reference Range is dependent on time and content of last meal. Glucose of more than 200 mg/dL in a nonstressed, ambulatory subject supports the diagnosis of Diabetes Mellitus. Hematocrit Auto (Bld) [Volum e fraction]Ordered By: Naima Boyd on 01-09-2024 Hematocrit (Bld) [Volume fraction] 41.9 % 38.8-50.0 [facility] Hemoglobin [Mass/volume] in BloodOrdered By: Naima Boyd on 01-09-2024 Hemoglobin (Bld) [Mass/Vol] 14.1 g/dL 13.0-17.0 [facility] INR in Platelet poor plasma by Coagulation assayOrdered By: aNima Boyd on 01-09-2024 INR Coag (PPP) [Relative time] 1.0 {INR} [facility] Comment on above: INR Therapeutic Rang [...] RBC Auto (Bld) [#/Vol] 7.6 10*3/uL 4.1-10.5 [facility] Lymphocytes Auto (Bld) [#/Vo l]Ordered By: Naima Godwinimore on 01-09-2024 Lymphocytes (Bld) [#/Vol] N/A [facility] Lymphocytes/100 WBC Auto (Bl d)Ordered By: Naima Bullimore on 01-09-2024 Lymphocytes/100 WBC (Bld) N/A [facility] Lymphocytes/100 WBC Manual c nt (Bld)Ordered By: Naima Bullimore on 01-09-2024 Lymphocytes/100 WBC (Bld) 27 % 18-42 [facility] MCH Auto (RBC) [Entitic mass ]Ordered By: Naima Godwinimore on 01-09-2024 MCH (RBC) [Entitic mass] 32.0 pg 27.5-35.2 [facility] MCHC Auto (RBC) [Mass/Vol]Or dered By: Naima Bullimore on 01-09-2024 MCHC (RBC) [Mass/Vol] 33.6 g/dL 32.5-35.6 [facility] MCV Auto (RBC) [Entitic vol] Ordered By: Naima Godwinimore on 01-09-2024 MCV (RBC) [Entitic vol] 95.1 fL 83.5-101 [facility] Monocyte distribution width [Entitic volume] in Blood by AutomatedOrdered By: Naima Boyd on 01-09-2024 Monocyte distribution width Auto (Bld) [Entitic vol] 25.58 % 0.00-20.00 [facility] Comment on above: For adults in ED, MD W > 20.0 may be associated with a higher risk of sepsis during the first 12 hrs of hospital admission Monocytes Auto (Bld) [#/Vol] Ordered By: Naima Godwinimore on 01-09-2024 Monocytes (Bld) [#/Vol] N/A [facility] Monocytes/100 WBC Auto (Bld) Ordered By: Naima Bullimore on 01-09-2024 Monocytes/100 WBC (Bld) N/A [facility] Monocytes/100 WBC Manual cnt (Bld)Ordered By: Naima Godwinimore on 01-09-2024 Monocytes/100 WBC (Bld) 7 % 2-11 [facility] Natriuretic peptide B [Mass/ Vol]Ordered By: Naima Bullimore on 01-09-2024 Natriuretic peptide B (Bld) [Mass/Vol] 172.0 pg/mL 5-100 [facility] Neutrophils Auto (Bld) [#/Vo l]Ordered By: Naima Bullimore on 01-09-2024 Neutrophils (Bld) [#/Vol] N/A [facility] Neutrophils/100 WBC Auto (Bl d)Ordered By: Naima Bullimore on 01-09-2024 Neutrophils/100 WBC (Bld) N/A [facility] No Panel InformationOrdered By: Naima Boyd on 01-09-2024 Estimated GFR (CKD-EPI) > 60.0 mL/Min [facility] Creatinine Clearance (Chem 64.96 [facility] Platelet Comment See comment below [facility] Comment on above: NO CLOTS, NO CLUMPS, SHORT DRAW LFM Nucleated RBC/100 WBC Manual cnt (Bld) [Ratio]Ordered By: Naima Godwinimore on 01-09-2024 Nucleated RBC/100 WBC (Bld) [Ratio] 0 /100{WBC} 0-0 [facility] Nucleated erythrocytes [Pres ence] in Blood by Automated countOrdered By: Naima Boyd on 01-09-2024 Nucleated RBC Auto Ql (Bld) N/A [facility] Platelet adequacy [Presence] in Blood by Light microscopyOrdered By: Naima Godwinimore on 01-09-2024 Platelets LM Ql (Bld) Normal Normal Fir [facility] Platelet mean volume Auto (B ld) [Entitic vol]Ordered By: Naima Godwinimore on 01-09-2024 Platelet mean volume (Bld) [Entitic vol] 8.6 fL 6.6-10.1 [facility] Platelet morphology finding [Identifier] in BloodOrdered By: Naima Godwinimore on 01-09-2024 Platelet morphology finding Nom (Bld) Normal Normal [facility] Platelets Auto (Bld) [#/Vol] Ordered By: Naima Boyd on 01-09-2024 Platelets (Bld) [#/Vol] 240 10*3/uL 150-450 [facility] Potassium [Moles/volume] in Serum or PlasmaOrdered By: Naima Boyd on 01-09-2024 Potassium [Moles/Vol] 3.9 mmol/L 3.5-5.1 [facility] Prothrombin time (PT)Ordered By: Naima Boyd on 01-09-2024 PT Coag (PPP) [Time] 11.9 s 9.0-12.9 [facility] Comment on above: A hematocrit value g reater than 55% may lead to inaccurate results in coagulation testing. Patients having hematocrit values >55% require a special collection tube for coagulation studies. Please contact the laboratory at [phone] for redraw instructions. RBC Auto (Bld) [#/Vol]Ordere d By: Naima Boyd on 01-09-2024 RBC (Bld) [#/Vol] 4.41 10*6/uL 3.90-5.60 [facility] RBC morphologyOrdered By: Sabine Boyd on 01-09-2024 RBC morphology finding Nom (Bld) Normal Normal [facility] Redraw Potassiumon Potassium [Moles/Vol] 3.9 mmol/L Normal 3.5-5.1 [facility] Comment on above: Result Comment: PERF ORMED BY: [facility] [address] [place] [address] PATHOLOGIST [employer] LOCATION MANAGER RADHA BARRON M.D. Performed By: #### R EDRAW K ####[facility] [id number] [place] [address] [facility] Segmented neutrophils/100 WB C Manual cnt (Bld)Ordered By: Naima Boyd on 01-09-2024 Segmented neutrophils/100 WBC (Bld) 62 % 50-70 [facility] Serum or plasma anion gap de terminationOrdered By: Naima Boyd on 01-09-2024 Anion gap [Moles/Vol] TNP [facility] Comment on above: Test not performed Sodium [Moles/volume] in Ser um or PlasmaOrdered By: Naima Bullimore on 01-09-2024 Sodium [Moles/Vol] 142 mmol/L 136-145 [facility] Troponin I High Sensitivityo n 01-09-2024 Troponin I High Sensitivity 13.1 pg/mL Normal 0.0-20.0 [facility] Comment on above: Result Comment: PERF ORMED BY: [facility] [address] [place] [address] PATHOLOGIST [employer] LOCATION MANAGER RADHA BARRON M.D. Performed By: #### H S TROP #### [facility] [address] [place] [address] [facility] Troponin I High Sensitivity 12.5 pg/mL Normal 0.0-20.0 [facility] Comment on above: Result Comment: PERF ORMED BY: [place] [id number] PATHOLOGIST [employer] LOCATION MANAGER RADHA BARRON M.D. Performed By: #### B MEDICAL LIBRARIAN, HS TROP, BMP, CK, DIFF CBC ####[facility] [id number] [place] [address] [facility] Troponin I.cardiac [Mass/vol ume] in Serum or Plasma by Detection limit <= 0.01 ng/Ordered By: Naima Godwinimore on 01-09-2024 Troponin I.cardiac DL <= 0.01 ng/mL [Mass/Vol] 13.1 pg/mL 0.0-20.0 [facility] Urea nitrogen [Mass/volume] in Serum or PlasmaOrdered By: Naima Bullimore on 01-09-2024 Urea nitrogen [Mass/Vol] 20 mg/dL 7-25 [facility] WBC Auto (Bld) [#/Vol]Ordere d By: Naima Bullimore on 01-09-2024 WBC (Bld) [#/Vol] 8.4 10*3/uL 4.1-10.5 [facility] XR chest 2V*on 01-09-2024 XR chest 2V* [facility] Main [place] [address] [place] [address] XRay Report Signed Patient: Jeb Riddle MR#: [id number] : 1950 Acct:[id number] Age/Sex: 73 / M ADM Date: 01/09/24 Loc: ER Room: Type: [facility] ER Attending Dr: Copies to: SABA [...] Jeb Collins M.D.01/09/2024 4:11 PM Dictation Location: [place] [address] Transcribed By: [facility] 01/09/24 1611 Dictated By: Jeb Collins II, MD 01/09/24 1610 Signed By: 01/09/24 1611 Normal [facility] ECG 12 lead ECGon 12-18-2023 ECG 12 lead ECG [facility] [place] [address] Electrocardiograph Report Signed Patient: Jeb Riddle MR#: [id number] : 1950 Acct:[id number] Age/Sex: 73 / M ADM Date: 12/18/23 Loc: ER Room: Type: [facility] ER Attending Dr: Ordering Provider: Marie [...] was found Confirmed by RAMIRO CORTEZ DO ([id number]) on 12/18/2023 4:44:01 PM Referred By: Electronically Signed By:RAMIRO CORTEZ DO Transcribed By: MUS Signed By Ramiro Cortez DO 12/17 1644 Normal [facility] Office Visiton 12-09-2023 Follow-up visit [id number] Jeb Riddle 1950 M Date Provider Department Center 12/09/2023 JESSICA JAMISON Family History Problem Relation Age of Onset Diabetes Mother Coronary artery disease Mother Heart attack Father Diabetes Father Coronary artery disease Father Family Status - Relation Status Age at Mother Father Level of Service:19636 [place] OFFICE/OUTPATIENT ESTABLISHED MOD MDM 30 MIN Reason for Visit and Comments: Follow-up [407756] - 6 months Normal [facility] Office Visiton 06-07-2023 Follow-up visit [id number] Jeb Riddle 1950 M Date Provider Department Center 06/07/2023 SHIV SAAVEDRA MISSY Nicole Family History Problem Relation Age of Onset Diabetes Mother Coronary artery disease Mother Heart attack Father Diabetes Father Coronary artery disease Father Family Status - Relation Status Age at Mother Father Level of Service:52402 [place] OFFICE/OUTPATIENT [facility] MDM 60-74 MINUTES Normal [facility] Office Visiton 05-27-2023 Follow-up visit [id number] Jeb Riddle 1950 M Date Provider Department Center 05/27/2023 JESSICA JAMISON Family History Problem Relation Age of Onset Diabetes Mother Coronary artery disease Mother Heart attack Father Diabetes Father Coronary artery disease Father Family Status - Relation Status Age at Mother Father Level of Service:94866 [place] OFFICE/OUTPATIENT ESTABLISHED MOD MDM 30-39 MIN Reason for Visit and Comments: Follow-up [940274] Coronary Artery Disease [187] Normal [facility] Activated partial thrombopla stin time (aPTT) in platelet poor plasma by coagulation aOrdered By: Ramiro Cortez on 03-03-2023 aPTT Coag (PPP) [Time] 29.7 s 25.1-36.5 [facility] B-Type Natriuretic Peptideon 03-03-2023 Natriuretic peptide B (Bld) [Mass/Vol] 52.0 pg/mL Normal 5-100 [facility] Comment on above: Result Comment: PERF ORMED BY: [facility] [address] [place] [address] PATHOLOGIST [employer] LOCATION MANAGER RADHA BARRON M.D. Performed By: #### C BC, CK, PT, PTT, BMP, HS TROP, BNP ####[address] Basic Metabolic Panelon 02-13 Anion gap [Moles/Vol] 10.6 mmol/L Normal 6.0-15.0 [facility] Comment on above: Performed By: #### C BC, CK, PT, PTT, BMP, HS TROP, BNP ####[address] Calcium [Mass/Vol] 8.6 mg/dL Normal 8.6-10.3 [facility] Comment on above: Performed By: #### C BC, CK, PT, PTT, BMP, HS TROP, BNP ####[address] Chloride [Moles/Vol] 108 mmol/L High 98-107 [facility] Comment on above: Performed By: #### C BC, CK, PT, PTT, BMP, HS TROP, BNP ####[address] CO2 [Moles/Vol] 24.6 mmol/L Normal 21.0-31.0 [facility] Comment on above: Performed By: #### C BC, CK, PT, PTT, BMP, HS TROP, BNP ####[address] Creatinine [Mass/Vol] 1.19 mg/dL Normal 0.70-1.30 [facility] Comment on above: Performed By: #### C BC, CK, PT, PTT, BMP, HS TROP, BNP ####[address] Creatinine Clr Calc Pharmacy 55.29 Normal [facility] Comment on above: Result Comment: PERF ORMED BY: [facility] [address] [place] [address] PATHOLOGIST [employer] LOCATION MANAGER RADHA BARRON M.D. Performed By: #### C BC, CK, PT, PTT, BMP, HS TROP, BNP ####[address] GFR/1.73 sq M.predicted MDRD (S/P/Bld) [Vol rate/Area] mL/min/{1.73_m2} Normal [facility] Comment on above: Performed By: #### C BC, CK, PT, PTT, BMP, HS TROP, BNP ####[address] Glucose [Mass/Vol] 93 mg/dL Normal 70-100 [facility] Comment on above: Result Comment: [facility] Glucose Reference Range is dependent on time and content of last meal. Glucose of more than 200 mg/dL in a nonstressed, ambulatory subject supports the diagnosis of Diabetes Mellitus. ADA recommended reference range Performed By: #### C BC, CK, PT, PTT, BMP, HS TROP, BNP ####[address] Potassium [Moles/Vol] 4.2 mmol/L Normal 3.5-5.1 [facility] Comment on above: Performed By: #### C BC, CK, PT, PTT, BMP, HS TROP, BNP ####[address] Sodium [Moles/Vol] 139 mmol/L Normal 136-145 [facility] Comment on above: Performed By: #### C BC, CK, PT, PTT, BMP, HS TROP, BNP ####[address] Urea nitrogen [Mass/Vol] 17 mg/dL Normal 7-25 [facility] Comment on above: Performed By: #### C BC, CK, PT, PTT, BMP, HS TROP, BNP ####[address] [place] [address] [place] Basophils Auto (Bld) [#/Vol] Ordered By: Ramiro Cortez on 03-03-2023 Basophils (Bld) [#/Vol] 0.0 10*3/uL 0.0-0.2 [facility] Basophils/100 WBC Auto (Bld) Ordered By: Ramiro Cortez on 03-03-2023 Basophils/100 WBC (Bld) 0.4 % . [facility] Calcium [Mass/volume] in Ser um or PlasmaOrdered By: Ramiro Cortez on 03-03-2023 Calcium [Mass/Vol] 8.6 mg/dL 8.6-10.3 [facility] Carbon dioxide, total [Moles /volume] in Serum or PlasmaOrdered By: Ramiro Cortez on 03-03-2023 CO2 [Moles/Vol] 24.6 mmol/L 21.0-31.0 [facility] Chloride [Moles/volume] in S pooja or PlasmaOrdered By: Ramiro Cortez on 03-03-2023 Chloride [Moles/Vol] 108 mmol/L 98-107 [facility] Complete Blood Count Auto Di ffon 03-03-2023 Basophils (Bld) [#/Vol] 0.0 10*3/uL Normal 0.0-0.2 [facility] Comment on above: Result Comment: PERF ORMED BY: [facility] [address] [place] [address] PATHOLOGIST [employer] LOCATION MANAGER RADHA BARRON M.D. Performed By: #### C BC, CK, PT, PTT, BMP, HS TROP, BNP #### [facility] [address] Basophils/100 WBC (Bld) 0.4 % Normal . [facility] Comment on above: Performed By: #### C BC, CK, PT, PTT, BMP, HS TROP, BNP #### [facility] [address] [place] [address] [place] Eosinophils (Bld) [#/Vol] 0.2 10*3/uL Normal 0.0-0.45 [facility] Comment on above: Performed By: #### C BC, CK, PT, PTT, BMP, HS TROP, BNP #### [address] Eosinophils/100 WBC (Bld) 2.4 % Normal . [facility] Comment on above: Performed By: #### C BC, CK, PT, PTT, BMP, HS TROP, BNP #### [address] Erythrocyte distribution width (RBC) [Ratio] 13.0 % Normal 12.0-14.8 [facility] Comment on above: Performed By: #### C BC, CK, PT, PTT, BMP, HS TROP, BNP #### [address] Hematocrit (Bld) [Volume fraction] 38.3 % Low 38.8-50.0 [facility] Comment on above: Performed By: #### C BC, CK, PT, PTT, BMP, HS TROP, BNP #### [address] Hemoglobin (Bld) [Mass/Vol] 12.9 g/dL Low 13.0-17.0 [facility] Comment on above: Performed By: #### C BC, CK, PT, PTT, BMP, HS TROP, BNP #### [address] Lymphocytes (Bld) [#/Vol] 2.6 10*3/uL Normal 1.00-4.8 [facility] Comment on above: Performed By: #### C BC, CK, PT, PTT, BMP, HS TROP, BNP #### [address] Lymphocytes/100 WBC (Bld) 28.3 % Normal . [facility] Comment on above: Performed By: #### C BC, CK, PT, PTT, BMP, HS TROP, BNP #### [address] MCH (RBC) [Entitic mass] 30.8 pg Normal 27.5-35.2 [facility] Comment on above: Performed By: #### C BC, CK, PT, PTT, BMP, HS TROP, BNP #### [address] MCV (RBC) [Entitic vol] 91.9 fL Normal 83.5-101 [facility] Comment on above: Performed By: #### C BC, CK, PT, PTT, BMP, HS TROP, BNP #### [address] Mean Corpuscular HGB Conc 33.6 g/dL Normal 32.5-35.6 [facility] Comment on above: Performed By: #### C BC, CK, PT, PTT, BMP, HS TROP, BNP #### [address] Monocytes (Bld) [#/Vol] 0.6 10*3/uL Normal 0.0-0.8 [facility] Comment on above: Performed By: #### C BC, CK, PT, PTT, BMP, HS TROP, BNP #### [address] Monocytes/100 WBC (Bld) 24.67 % High 0.00-20.00 [facility] Comment on above: Result Comment: For adults in ED, MDW > 20.0 may be associated with a higher risk of sepsis during the first 12 hrs of hospital admission Performed By: #### C BC, CK, PT, PTT, BMP, HS TROP, BNP #### [address] Monocytes/100 WBC (Bld) 6.5 % Normal . [facility] Comment on above: Performed By: #### C BC, CK, PT, PTT, BMP, HS TROP, BNP #### [address] Neutrophils (Bld) [#/Vol] 5.7 10*3/uL Normal 1.8-7.7 [facility] Comment on above: Performed By: #### C BC, CK, PT, PTT, BMP, HS TROP, BNP #### [place] [address] Neutrophils/100 WBC (Bld) 62.4 % Normal . [facility] Comment on above: Performed By: #### C BC, CK, PT, PTT, BMP, HS TROP, BNP #### [address] NRBC% 0.1 /100{WBC} Normal 0-0.5 [facility] Comment on above: Performed By: #### C BC, CK, PT, PTT, BMP, HS TROP, BNP #### [address] Platelet mean volume (Bld) [Entitic vol] 8.2 fL Normal 6.6-10.1 [facility] Comment on above: Performed By: #### C BC, CK, PT, PTT, BMP, HS TROP, BNP #### [address] Platelets (Bld) [#/Vol] 234 10*3/uL Normal 150-450 [facility] Comment on above: Performed By: #### C BC, CK, PT, PTT, BMP, HS TROP, BNP #### [address] RBC (Bld) [#/Vol] 4.17 10*6/uL Normal 3.90-5.60 [facility] Comment on above: Performed By: #### C BC, CK, PT, PTT, BMP, HS TROP, BNP #### [address] WBC (Bld) [#/Vol] 9.2 10*3/uL Normal 4.1-10.5 [facility] Comment on above: Performed By: #### C BC, CK, PT, PTT, BMP, HS TROP, BNP #### [address] Creatine Kinaseon 03-03-2023 CK [Catalytic activity/Vol] 125 U/L Normal 30-223 [facility] Comment on above: Performed By: #### C BC, CK, PT, PTT, BMP, HS TROP, BNP ####[facility] [id number] [place] [id number] [facility] Creatine kinase [Enzymatic a ctivity/volume] in Serum or PlasmaOrdered By: Ramiro Cortez on 03-03-2023 CK [Catalytic activity/Vol] 125 U/L [facility] Creatinine [Mass/volume] in Serum or PlasmaOrdered By: Ramiro Cortez on 03-03-2023 Creatinine [Mass/Vol] 1.19 mg/dL 0.70-1.30 [facility] ECG 12 lead ECGon 03-03-2023 ECG 12 lead ECG [facility] Main [place] [address] [place] [address] Electrocardiograph Report Signed Patient: Jeb Riddle MR#: [id number] : 1950 Acct:[id number] Age/Sex: 72 / M ADM Date: 03/03/23 Loc: ER Room: Type: [facility] ER Attending Dr: Ordering Provider: Ramiro [...] ECGs available Confirmed by RAMIRO CORTEZ DO ([id number]) on 03/03/2023 8:14:27 PM Referred By: Electronically Signed By:RAMIRO CORTEZ DO Transcribed By: MUS Signed By Ramiro Cortez DO 03/03 Normal [facility] Eosinophils Auto (Bld) [#/Vo l]Ordered By: Ramiro Cortez on 03-03-2023 Eosinophils (Bld) [#/Vol] 0.2 10*3/uL 0.0-0.45 [facility] Eosinophils/100 WBC Auto (Bl d)Ordered By: Ramiro Cortez on 03-03-2023 Eosinophils/100 WBC (Bld) 2.4 % . [facility] Erythrocyte distribution wid th Auto (RBC) [Ratio]Ordered By: Ramiro Cortez on 03-03-2023 Erythrocyte distribution width (RBC) [Ratio] 13.0 % 12.0-14.8 [facility] Glucose [Mass/volume] in Ser um or PlasmaOrdered By: Ramiro Cortez on 03-03-2023 Glucose [Mass/Vol] 93 mg/dL 70-100 [facility] Comment on above: ADA recommended refe rence rangeRandom Glucose Reference Range is dependent on time and content of last meal. Glucose of more than 200 mg/dL in a nonstressed, ambulatory subject supports the diagnosis of Diabetes Mellitus. Hematocrit Auto (Bld) [Volum e fraction]Ordered By: Ramiro Cortez on 03-03-2023 Hematocrit (Bld) [Volume fraction] 38.3 % 38.8-50.0 [facility] Hemoglobin [Mass/volume] in BloodOrdered By: Ramiro Cortez on 03-03-2023 Hemoglobin (Bld) [Mass/Vol] 12.9 g/dL 13.0-17.0 [facility] - CoagulationOrde red By: Ramiro Cortez on 03-03-2023 PT Coag (PPP) [Time] 12.3 s 9.0-12.9 [facility] Leukocytes [#/volume] correc ava for nucleated erythrocytes in Blood by Automated counOrdered By: Ramiro Cortez on 03-03-2023 WBC corrected for nucl RBC Auto (Bld) [#/Vol] 9.2 10*3/uL 4.1-10.5 [facility] Lymphocytes Auto (Bld) [#/Vo l]Ordered By: Ramiro Cortez on 03-03-2023 Lymphocytes (Bld) [#/Vol] 2.6 10*3/uL 1.00-4.8 [facility] Lymphocytes/100 WBC Auto (Bl d)Ordered By: Ramiro Cortez on 03-03-2023 Lymphocytes/100 WBC (Bld) 28.3 % . [facility] MCH Auto (RBC) [Entitic mass ]Ordered By: Ramiro Cortez on 03-03-2023 MCH (RBC) [Entitic mass] 30.8 pg 27.5-35.2 [facility] MCHC Auto (RBC) [Mass/Vol]Or dered By: Ramiro Cortez on 03-03-2023 MCHC (RBC) [Mass/Vol] 33.6 g/dL 32.5-35.6 [facility] MCV Auto (RBC) [Entitic vol] Ordered By: Ramiro Cortez on 03-03-2023 MCV (RBC) [Entitic vol] 91.9 fL 83.5-101 [facility] Monocyte distribution width [Entitic volume] in Blood by AutomatedOrdered By: Ramiro Cortez on 03-03-2023 Monocyte distribution width Auto (Bld) [Entitic vol] 24.67 % 0.00-20.00 [facility] Comment on above: For adults in ED, MD W > 20.0 may be associated with a higher risk of sepsis during the first 12 hrs of hospital admission Monocytes Auto (Bld) [#/Vol] Ordered By: Ramiro Cortez on 03-03-2023 Monocytes (Bld) [#/Vol] 0.6 10*3/uL 0.0-0.8 [facility] Monocytes/100 WBC Auto (Bld) Ordered By: Ramiro Cortez on 03-03-2023 Monocytes/100 WBC (Bld) 6.5 % . [facility] Natriuretic peptide B [Mass/ Vol]Ordered By: Ramiro Cortez on 03-03-2023 Natriuretic peptide B (Bld) [Mass/Vol] 52.0 pg/mL 5-100 [facility] Neutrophils Auto (Bld) [#/Vo l]Ordered By: Ramiro Cortez on 03-03-2023 Neutrophils (Bld) [#/Vol] 5.7 10*3/uL 1.8-7.7 [facility] Neutrophils/100 WBC Auto (Bl d)Ordered By: Ramiro Cortez on 03-03-2023 Neutrophils/100 WBC (Bld) 62.4 % . [facility] No Panel InformationOrdered By: Ramiro Cortez on 03-03-2023 Estimated GFR (CKD-EPI) > 60.0 mL/Min [facility] Creatinine Clearance (Chem 55.29 [facility] Nucleated erythrocytes [Pres ence] in Blood by Automated countOrdered By: Ramiro Cortez on 03-03-2023 Nucleated RBC Auto Ql (Bld) 0.1 /100{WBC} 0-0.5 [facility] Partial Thromboplastin Timeo n 03-03-2023 aPTT Coag (Bld) [Time] 29.7 s Normal 25.1-36.5 [facility] Comment on above: Result Comment: PERF ORMED BY: [facility] [address] [place] [address] PATHOLOGIST [employer] LOCATION MANAGER RADHA BARRON M.D. Performed By: #### C BC, CK, PT, PTT, BMP, HS TROP, BNP #### [facility] [address] Platelet mean volume Auto (B ld) [Entitic vol]Ordered By: Ramiro Cortez on 03-03-2023 Platelet mean volume (Bld) [Entitic vol] 8.2 fL 6.6-10.1 [facility] Platelet poor plasma interna tional normalized ratio (INR) by coagulation assay (relatOrdered By: Ramiro Cortez on 03-03-2023 INR Coag (PPP) [Relative time] 1.1 {INR} [facility] Comment on above: INR Therapeutic Rang [...] 03-03-2023 Platelets (Bld) [#/Vol] 234 10*3/uL 150-450 [facility] Potassium [Moles/volume] in Serum or PlasmaOrdered By: Ramiro Cortez on 03-03-2023 Potassium [Moles/Vol] 4.2 mmol/L 3.5-5.1 [facility] Prothrombin Time INRon 03-03 INR Coag (PPP) [Relative time] 1.1 {INR} Normal [facility] Comment on above: Result Comment: [...] BNP #### [facility] [address] PT Coag (PPP) [Time] 12.3 s Normal 9.0-12.9 [facility] Comment on above: Performed By: #### C BC, CK, PT, PTT, BMP, HS TROP, BNP #### [facility] [address] RBC Auto (Bld) [#/Vol]Ordere d By: Ramiro Cortez on 03-03-2023 RBC (Bld) [#/Vol] 4.17 10*6/uL 3.90-5.60 [facility] Serum or plasma anion gap de terminationOrdered By: Ramiro Cortez on 03-03-2023 Anion gap [Moles/Vol] 10.6 mmol/L 6.0-15.0 [facility] Sodium [Moles/volume] in Ser um or PlasmaOrdered By: Ramiro Cortez on 03-03-2023 Sodium [Moles/Vol] 139 mmol/L 136-145 [facility] Troponin I High Sensitivityo n 03-03-2023 Troponin I High Sensitivity 7.6 pg/mL Normal 0.0-20.0 [facility] Comment on above: Result Comment: PERF ORMED BY: [facility] [address] [place] [address] PATHOLOGIST [employer] LOCATION MANAGER RADHA BARRON M.D. Performed By: #### C BC, CK, PT, PTT, BMP, HS TROP, BNP ####[facility] [id number] Troponin I.cardiac [Mass/vol ume] in Serum or Plasma by Detection limit <= 0.01 ng/Ordered By: Ramiro Cortez on 03-03-2023 Troponin I.cardiac DL <= 0.01 ng/mL [Mass/Vol] 7.6 pg/mL 0.0-20.0 [facility] Urea nitrogen [Mass/volume] in Serum or PlasmaOrdered By: Ramiro Cortez on 03-03-2023 Urea nitrogen [Mass/Vol] 17 mg/dL 03-08 [facility] WBC Auto (Bld) [#/Vol]Ordere d By: Ramiro Cortez on 03-03-2023 WBC (Bld) [#/Vol] 9.2 10*3/uL 4.1-10.5 [facility] XR chest 2V*on 03-03-2023 XR chest 2V* [facility] Main [place] [address] [place] [address] XRay Report Signed Patient: Jeb Riddle MR#: [id number] : 1950 Acct:[id number] Age/Sex: 72 / M ADM Date: 03/03/23 Loc: ER Room: Type: [facility] ER Attending Dr: Copies to: Ramiro [...] Ivonne Zavala M.D.03/03/2023 12:46 PM Dictation Location: [place] [address] Transcribed By: KAROLINA 03/03/23 1246 Dictated By: Ivonne Zavala MD 03/03/23 1245 Signed By: 03/03/23 1246 Normal [facility] CBC AUTO DIFFon 01-11-2023 BASO # 0.0 103/ul Normal 0.0-0.1 [facility] Comment on above: Performed By: #### C #### [facility] [address] [place] [address] Dr. Andrea Garcia Basophils/100 WBC (Bld) 0.0 % Critically low 0.2-2.0 [facility] Comment on above: Performed By: #### C BC #### [facility] [address] [place] [address] Dr. Andrea Garcia EO # 0.0 103/ul Normal 0.0-0.7 [facility] Comment on above: Performed By: #### C BC #### [facility] [address] [place] [address] Dr. Andrea Garcia Eosinophils/100 WBC (Bld) 0.0 % Critically low 0.9-7.0 [facility] Comment on above: Performed By: #### C BC #### [facility] [address] [place] [address] Dr. Andrea Garcia Erythrocyte distribution width (RBC) [Ratio] 12.8 % Normal 11.0-15.0 [facility] Comment on above: Performed By: #### C BC #### [facility] [address] [place] [address] Dr. Andrea Garcia Hematocrit (Bld) [Volume fraction] 36.2 % Critically low 42.0-54.0 [facility] Comment on above: Performed By: #### C BC #### [facility] [address] [place] [address] Dr. Andrea Garcia Hemoglobin (Bld) [Mass/Vol] 12.8 g/dL Critically low 14.0-18.0 [facility] Comment on above: Performed By: #### C BC #### [facility] [address] [place] [address] Dr. Andrea Garcia IG # 0.03 10e3/ul Normal 0.00-0.03 [facility] Comment on above: Performed By: #### C BC #### [facility] [address] [place] [address] Dr. Andrea Garcia IG % 0.4 % Normal 0.0-0.5 [facility] Comment on above: Performed By: #### C BC #### [facility] [address] [place] [address] [address] Andrea Garcia LYMPH # 1.1 103/ul Critically low 1.2-3.8 [facility] Comment on above: Performed By: #### C BC #### [facility] [address] [place] [address] Dr. Andrea Garcia Lymphocytes/100 WBC (Bld) 15.3 % Critically low 20.5-60.0 [facility] Comment on above: Performed By: #### C BC #### [facility] [address] [place] [address] Dr. Andrea Garcia MANUAL DIFF REQ NO Normal [facility] Comment on above: Performed By: #### C BC #### [facility] [address] [place] [address] Dr. Andrea Garcia MCH (RBC) [Entitic mass] 31.3 pg Normal 25.9-34.0 [facility] Comment on above: Performed By: #### C BC #### [facility] [address] [place] [address] Dr. Andrea Garcia MCHC (RBC) [Mass/Vol] 35.4 g/dL Critically high 29.9-35.2 [facility] Comment on above: Performed By: #### C BC #### [facility] [address] [place] [address] Dr. Andrea Garcia MCV (RBC) [Entitic vol] 88.5 fL Normal 80.0-94.0 [facility] Comment on above: Performed By: #### C BC #### [facility] [address] [place] [address] Dr. Andrea Garcia MONO # 0.1 103/ul Critically low 0.3-0.8 [facility] Comment on above: Performed By: #### C BC #### [facility] [address] [place] [address] Dr. Andrea Garcia Monocytes/100 WBC (Bld) 0.7 % Critically low 1.7-12.0 [facility] Comment on above: Performed By: #### C BC #### [facility] [address] [place] [address] [address] Andrea Garcia NEUT # 6.0 103/ul Normal 1.4-6.5 [facility] Comment on above: Performed By: #### C BC #### [facility] [address] [place] [address] Dr. Andrea Garcia Neutrophils/100 WBC (Bld) 83.6 % Critically high 43.0-75.0 [facility] Comment on above: Performed By: #### C BC #### [facility] [address] [place] [address] Dr. Andrea Garcia Platelet mean volume (Bld) [Entitic vol] 10.1 fL Normal 9.5-13.5 [facility] Comment on above: Performed By: #### C BC #### [facility] [address] [place] [address] Dr. Andrea Garcia PLT 216 103/ul Normal 150-450 [facility] Comment on above: Performed By: #### C BC #### [facility] [address] [place] [address] Dr. Andrea Garcia RBC 4.09 106/ul Critically low 4.70-6.10 [facility] Comment on above: Performed By: #### C BC #### [facility] [address] [place] [address] Dr. Andrea Garcia WBC 7.2 103/ul Normal 4.0-11.0 [facility] Comment on above: Performed By: #### C BC #### [facility] [address] [place] [address] Dr. Andrea Garcia PROF 14(COMP METB)on 023 Albumin [Mass/Vol] 2.8 g/dL Critically low 3.4-5.0 [facility] Comment on above: Performed By: #### C MP #### [facility] [address] [place] [address] Dr. Andrea Garcia Albumin/Globulin [Mass ratio] 0.8 {ratio} Normal [facility] Comment on above: Performed By: #### C MP #### [facility] [address] [address] [address] Andrea Garcia ALP [Catalytic activity/Vol] 64 U/L Normal 46-116 [facility] Comment on above: Performed By: #### C MP #### [facility] [address] [place] [address] Dr. Andrea Garcia ALT [Catalytic activity/Vol] 27 U/L Normal 16-63 [facility] Comment on above: Performed By: #### C MP #### [facility] [address] [place] [address] Dr. Andrea Garcia Anion gap [Moles/Vol] 12.9 mmol/L Normal [facility] Comment on above: Performed By: #### C MP #### [facility] [address] [place] [address] Dr. Andrea Garcia AST [Catalytic activity/Vol] 16 U/L Normal 15-37 [facility] Comment on above: Performed By: #### C MP #### [facility] [address] [place] [address] Dr. Andrea Garcia Bilirubin [Mass/Vol] 0.4 mg/dL Normal 0.2-1.0 [facility] Comment on above: Performed By: #### C MP #### [facility] [address] [place] [address] Dr. Andrea Garcia Calcium [Mass/Vol] 8.2 mg/dL Critically low 8.5-10.1 [facility] Comment on above: Performed By: #### C MP #### [facility] [address] [place] [address] Dr. Andrea Garcia Chloride [Moles/Vol] 107 mmol/L Normal 98-107 [facility] Comment on above: Performed By: #### C MP #### [facility] [address] [place] [address] Dr. Andrea Garcia CO2 [Moles/Vol] 24.2 mmol/L Normal 21.0-32.0 [facility] Comment on above: Performed By: #### C MP #### [facility] [address] [place] [address] Dr. Andrea Garcia Creatinine [Mass/Vol] 1.07 mg/dL Normal 0.70-1.30 [facility] Comment on above: Performed By: #### C MP #### [facility] [address] [address] [address] Andrea Garcia EGFR-AF MALIAN >60 Normal >=60 [facility] Comment on above: Performed By: #### C MP #### [facility] [address] [address] [address] Andrea Garcia EGFR-NON AF MALIAN >60 Normal >=60 [facility] Comment on above: Performed By: #### C MP #### [facility] [address] [address] [address] Andrea Garcia Globulin (S) [Mass/Vol] 3.5 g/dL Normal [facility] Comment on above: Performed By: #### C MP #### [facility] [address] [place] [address] Dr. Andrea Garcia Glucose [Mass/Vol] 164 mg/dL Critically high 74-106 [facility] Comment on above: Performed By: #### C MP #### [facility] [address] [address] [address] Andrea Garcia Potassium [Moles/Vol] 4.1 mmol/L Normal 3.5-5.1 [facility] Comment on above: Performed By: #### C MP #### [facility] [address] [address] [address] Andrea Garcia Protein [Mass/Vol] 6.3 g/dL Critically low 6.4-8.[address] [facility] Comment on above: Performed By: #### C MP #### [facility] [address] [address] [address] Andrea Garcia Sodium [Moles/Vol] 140 mmol/L Normal 136-145 [facility] Comment on above: Performed By: #### C MP #### [facility] [address] [address] [address] Andrea Garcia Urea nitrogen [Mass/Vol] 16.0 mg/dL Normal 7.0-18.0 [facility] Comment on above: Performed By: #### C MP #### [facility] [address] [address] [address] Andrea Garcia Urea nitrogen/Creatinine [Mass ratio] 15.0 mg/mg Normal [facility] Comment on above: Performed By: #### C MP #### [facility] [address] [address] [address] Andrea Garcia XR KUB 1 VIEWon [...] ROBERT DAVENPORT Date: 2023-01-11 06:56 Normal [facility] AMYLASEon 01-10-2023 Amylase [Catalytic activity/Vol] 56 U/L Normal 25-115 [facility] Comment on above: Performed By: #### C MADM, CMP, DAMIEN, LIPA ####[facility] [address] [address]Dr. Andrea Garcia CARDIAC JEB 3-6on 3 CK [Catalytic activity/Vol] 92 U/L Normal 39-308 [facility] Comment on above: Performed By: #### C MREP #### [facility] [address] [address] [address] Andrea Garcia CK.MB [Mass/Vol] 1.66 ng/mL Normal <=3.60 [facility] Comment on above: Performed By: #### C MREP #### [facility] [address] [address] [address] Andrea Garcia HSTROP 12.8 pg/mL Normal 4.0-76.1 [facility] Comment on above: Result Comment: CUT- OFF POINTS HAVE BEEN ESTABLISHED BASED ON THE FOURTH UNIVERSAL DEFINITIONS OF MYOCARDIAL INFARCTION. THE UPPER REFERENCE LIMIT (URL) OF TROPONIN, DEFINED THE 99TH PERCENTILE OF cTnI DISTRIBUTION IN A REFERENCE POPULATION, HAS BEEN CONFIRMED THE DECISION THRESHOLD FOR VA DIAGNOSIS. Performed By: #### C MREP #### [facility] [address] [place], [place] [address] Dr. Andrea Garcia CK [Catalytic activity/Vol] 72 U/L Normal 39-308 [facility] Comment on above: Performed By: #### C MREP #### [facility] [address] [place], [place] [address] Dr. Andrea Garcia CK.MB [Mass/Vol] 1.89 ng/mL Normal <=3.60 [facility] Comment on above: Performed By: #### C MREP #### [facility] [address] [address] [address] Andrea Garcia HSTROP 13.5 pg/mL Normal 4.0-76.1 [facility] Comment on above: Result Comment: CUT- OFF POINTS HAVE BEEN ESTABLISHED BASED ON THE FOURTH UNIVERSAL DEFINITIONS OF MYOCARDIAL INFARCTION. THE UPPER REFERENCE LIMIT (URL) OF TROPONIN, DEFINED THE 99TH PERCENTILE OF cTnI DISTRIBUTION IN A REFERENCE POPULATION, HAS BEEN CONFIRMED THE DECISION THRESHOLD FOR VA DIAGNOSIS. Performed By: #### C MREP #### [facility] [address] [address] [address] Andrea Garcia CARDIAC JEB ADMITon 023 CK [Catalytic activity/Vol] 85 U/L Normal 39-308 [facility] Comment on above: Performed By: #### C MADM, CMP, DAMIEN, LIPA ####[facility] [address] [place], [place] [address]Dr. Andrea Garcia CK.MB [Mass/Vol] 1.80 ng/mL Normal <=3.60 [facility] Comment on above: Performed By: #### C MADM, CMP, DAMIEN, LIPA ####[facility] [address] [id number]. Andrea Garcia HSTROP 15.7 pg/mL Normal 4.0-76.1 [facility] Comment on above: Result Comment: CUT- OFF POINTS HAVE BEEN ESTABLISHED BASED ON THE FOURTH UNIVERSAL DEFINITIONS OF MYOCARDIAL INFARCTION. THE UPPER REFERENCE LIMIT (URL) OF TROPONIN, DEFINED THE 99TH PERCENTILE OF cTnI DISTRIBUTION IN A REFERENCE POPULATION, HAS BEEN CONFIRMED THE DECISION THRESHOLD FOR VA DIAGNOSIS. Performed By: #### C MADM, CMP, DAMIEN, LIPA ####[facility] [address] [address]Dr. Andrea Jose MIQUEL 61 ng/mL Normal 16-96 [facility] Comment on above: Performed By: #### C MADM, CMP, DAMIEN, LIPA ####[facility] [address] [address]Dr. Kaylendahlia Garcia CBC AUTO DIFFon 01-10-2023 BASO # 0.0 103/ul Normal 0.0-0.1 [facility] Comment on above: Performed By: #### C BC ####[facility] [address] [place], [place] [address]Dr. Andrea Garcia Basophils/100 WBC (Bld) 0.5 % Normal 0.2-2.0 [facility] Comment on above: Performed By: #### C BC ####[facility] [address] [place], [place] [address]Dr. Andrea Garcia EO # 0.4 103/ul Normal 0.0-0.7 [facility] Comment on above: Performed By: #### C BC ####[facility] [address] [place], [place] [address]Dr. Andrea Garcia Eosinophils/100 WBC (Bld) 5.9 % Normal 0.9-7.0 [facility] Comment on above: Performed By: #### C BC ####[facility] [address] [place], [place] [address]Dr. Andrea Garcia Erythrocyte distribution width (RBC) [Ratio] 13.0 % Normal 11.0-15.0 [facility] Comment on above: Performed By: #### C BC ####[facility] [address] [place], [place] [address]Dr. Andrea Garcia Hematocrit (Bld) [Volume fraction] 40.0 % Critically low 42.0-54.0 [facility] Comment on above: Performed By: #### C BC ####[facility] [address] [place], [place] [address]Dr. Andrea Garcia Hemoglobin (Bld) [Mass/Vol] 13.4 g/dL Critically low 14.0-18.0 [facility] Comment on above: Performed By: #### C BC ####[facility] [address] [address]Dr. Andrea Garcia IG # 0.01 10e3/ul Normal 0.00-0.03 [facility] Comment on above: Performed By: #### C BC ####[facility] [address] [place], [place] [address]Dr. Andrea Garcia IG % 0.2 % Normal 0.0-0.5 [facility] Comment on above: Performed By: #### C BC ####[facility] [address] [place], [place] [address]DrWilder Garcia LYMPH # 2.2 103/ul Normal 1.2-3.8 [facility] Comment on above: Performed By: #### C BC ####[facility] [address] [place], [place] [address]Dr. Andrea Garcia Lymphocytes/100 WBC (Bld) 33.2 % Normal 20.5-60.0 [facility] Comment on above: Performed By: #### C BC ####[facility] [address] [place], [place] [address]DrWilder Garcia MANUAL DIFF REQ NO Normal [facility] Comment on above: Performed By: #### C BC ####[facility] [address] [place], [place] [address]DrWilder Garcia MCH (RBC) [Entitic mass] 30.5 pg Normal 25.9-34.0 [facility] Comment on above: Performed By: #### C BC ####[facility] [address] [place], [place] [address]Dr. Andrea Garcia MCHC (RBC) [Mass/Vol] 33.5 g/dL Normal 29.9-35.2 [facility] Comment on above: Performed By: #### C BC ####[facility] [address] [place], [place] [address]Dr. Andrea Garcia MCV (RBC) [Entitic vol] 90.9 fL Normal 80.0-94.0 [facility] Comment on above: Performed By: #### C BC ####[facility] [address] [place], [place] [address]DrWilder Andrea Garcia MONO # 0.4 103/ul Normal 0.3-0.8 [facility] Comment on above: Performed By: #### C BC ####[facility] [address] [place], [place] [address]DrWilder Andrea Jose Monocytes/100 WBC (Bld) 6.0 % Normal 1.7-12.0 [facility] Comment on above: Performed By: #### C BC ####[facility] [address] [place], [place] [address]DrWilder Andrea Garcia NEUT # 3.5 103/ul Normal 1.4-6.5 [facility] Comment on above: Performed By: #### C BC ####[facility] [address] [place], [place] [address]DrWilder Andrea Jose Neutrophils/100 WBC (Bld) 54.2 % Normal 43.0-75.0 [facility] Comment on above: Performed By: #### C BC ####[facility] [address] [place], [place] [address]DrWilder Andrea Jose Platelet mean volume (Bld) [Entitic vol] 9.7 fL Normal 9.5-13.5 [facility] Comment on above: Performed By: #### C BC ####[facility] [address] [place], [place] [address]DrWilder Andrea Jose PLT 225 103/ul Normal 150-450 [facility] Comment on above: Performed By: #### C BC ####[facility] [address] [place], [place] [address]DrWilder Abdullahidahlia Jose RBC 4.40 106/ul Critically low 4.70-6.10 [facility] Comment on above: Performed By: #### C BC ####[facility] [address] [place], [place] [address]DrWilder Garcia WBC 6.5 103/ul Normal 4.0-11.0 [facility] Comment on above: Performed By: #### C BC ####[facility] [address] [id number] Andrea Jose CT ABD/PELV W CONon 01-11-20 [...] by: ADITYA OATES Date: 2023-01-10 07:41 Normal [facility] CULTURE BLOODon 01-10-2023 Microscopic examination of blood, culture Culture Observations: NO GROWTH AT 36-48 HOURS. FINAL TO FOLLOW. Normal [facility] Comment on above: Performed By: #### B LDCX2 ####[facility] [address] [place], [place] [address]TuWilder Andrea Jose Microscopic examination of blood, culture Culture Observations: NO GROWTH AT 36-48 HOURS. FINAL TO FOLLOW. Normal [facility] Comment on above: Performed By: #### B LDCX1 ####[facility] [address] [address]Dr. Andrea Garcia ER URINE PROFILEon 3 Bilirubin Ql (U) Negative Normal NEGATIVE [facility] Comment on above: Performed By: #### U MICRO, ERUR #### [facility] [address] [address] [address] Andrea Garcia Clarity (U) CLEAR Normal CLEAR [facility] Comment on above: Performed By: #### U MICRO, ERUR #### [facility] [address] [address] [address] Andrea Garcia Color (U) LT. YELLOW Normal YELLOW [facility] Comment on above: Performed By: #### U MICRO, ERUR #### [facility] [address] [place] [address] Dr. Andrea Garcia ERUAHD A micrscopic examina tion will be performed if indicated. Normal [facility] Comment on above: Performed By: #### U MICRO, ERUR #### [facility] [address] [address] [address] Andrea Garcia Glucose Ql (U) Negative Normal NEGATIVE [facility] Comment on above: Performed By: #### U MICRO, ERUR #### [facility] [address] [address] [address] Andrea Garcia Hemoglobin Ql (U) TRACE-INTACT Abnormal NEGATIVE [facility] Comment on above: Performed By: #### U MICRO, ERUR #### [facility] [address] [address] [address] Andrea Garcia Ketones Ql (U) Negative Normal NEGATIVE [facility] Comment on above: Performed By: #### U MICRO, ERUR #### [facility] [address] [address] [address] Andrea Garcia LEUKOCYTES Negative Normal NEGATIVE [facility] Comment on above: Performed By: #### U MICRO, ERUR #### [facility] [address] [address] [address] Andrea Garcia Nitrite Ql (U) Negative Normal NEGATIVE [facility] Comment on above: Performed By: #### U MICRO, ERUR #### [facility] [address] [place] [address] Dr. Andrea Garcia pH (U) 5.5 [pH] Normal 5-9 [facility] Comment on above: Performed By: #### U MICRO, ERUR #### [facility] [address] [place] [address] Dr. Andrea Garcia SPEC GRAVITY 1.015 Normal 1.005-<=1. 025 [facility] Comment on above: Performed By: #### U MICRO, ERUR #### [facility] [address] [place] [address] Dr. Andrea Garcia UA PROTEIN Negative Normal NEGATIVE/ TRACE [facility] Comment on above: Performed By: #### U MICRO, ERUR #### [facility] [address] [place] [address] Dr. Andrea Garcia UR MICRO IND INDICATED Normal [facility] Comment on above: Performed By: #### U MICRO, ERUR #### [facility] [address] [place] [address] Dr. Andrea Garcia Urobilinogen Qn (U) 0.2 {Temo'U}/dL Normal 0.2 - 1. 0 [facility] Comment on above: Performed By: #### U MICRO, ERUR #### [facility] [address] [place] [address] Dr. Andrea Garcia LACTATE/LACTIC ACIDon 2022 Lactate [Moles/Vol] 0.8 mmol/L Normal 0.4-2.0 [facility] Comment on above: Performed By: #### L ACT #### [facility] [address] [place] [address] Dr. Andrea Garcia Lactate [Moles/Vol] 0.9 mmol/L Normal 0.4-2.0 [facility] Comment on above: Performed By: #### L ACT #### [facility] [address] [place] [address] Dr. Andrea Garcia LIPASEon 01-10-2023 Lipase [Catalytic activity/Vol] 71.0 U/L Critically low 73.0-393.0 [facility] Comment on above: Performed By: #### C MADM, CMP, DAMIEN, LIPA ####[facility] [address] [address]Dr. Andrea Garcia PROF 14(COMP METB)on 023 Albumin [Mass/Vol] 3.2 g/dL Critically low 3.4-5.0 [facility] Comment on above: Performed By: #### C MADM, CMP, DAMIEN, LIPA ####[facility] [address] [address]Dr. Andrea Garcia Albumin/Globulin [Mass ratio] 0.9 {ratio} Normal [facility] Comment on above: Performed By: #### C MADM, CMP, DAMIEN, LIPA ####[facility] [address] [address]Dr. Andrea Garcia ALP [Catalytic activity/Vol] 68 U/L Normal 46-116 [facility] Comment on above: Performed By: #### C MADM, CMP, DAMIEN, LIPA ####[facility] [address] [address]Dr. Andrea Garcia ALT [Catalytic activity/Vol] 30 U/L Normal 16-63 [facility] Comment on above: Performed By: #### C MADM, CMP, DAMIEN, LIPA ####[facility] [address] [address]Dr. Andrea Garcia Anion gap [Moles/Vol] 14.2 mmol/L Normal [facility] Comment on above: Performed By: #### C MADM, CMP, DAMIEN, LIPA ####[facility] [address] [address]Dr. Andrea Garcia AST [Catalytic activity/Vol] 18 U/L Normal 15-37 [facility] Comment on above: Performed By: #### C MADM, CMP, DAMIEN, LIPA ####[facility] [address] [address]Dr. Andrea Garcia Bilirubin [Mass/Vol] 0.5 mg/dL Normal 0.2-1.0 [facility] Comment on above: Performed By: #### C MADM, CMP, DAMIEN, LIPA ####[facility] [address] [address]Dr. Andrea Garcia Calcium [Mass/Vol] 8.5 mg/dL Normal 8.5-10.1 [facility] Comment on above: Performed By: #### C MADM, CMP, DAMIEN, LIPA ####[facility] [address] [address]Dr. Andrea Garcia Chloride [Moles/Vol] 108 mmol/L Critically high 98-107 [facility] Comment on above: Performed By: #### C MADM, CMP, DAMIEN, LIPA ####[facility] [address] [address]Dr. Andrea Garcia CO2 [Moles/Vol] 22.1 mmol/L Normal 21.0-32.0 [facility] Comment on above: Performed By: #### C MADM, CMP, DAMIEN, LIPA ####[facility] [address] [address]Dr. Andrea Garcia Creatinine [Mass/Vol] 1.06 mg/dL Normal 0.70-1.30 [facility] Comment on above: Performed By: #### C MADM, CMP, DAMIEN, LIPA ####[facility] [address] [address]Dr. Andrea Garcia EGFR-AF MALIAN >60 Normal >=60 [facility] Comment on above: Performed By: #### C MADM, CMP, DAMIEN, LIPA ####[facility] [address] [address]Dr. Andrea Garcia EGFR-NON AF MALIAN >60 Normal >=60 [facility] Comment on above: Performed By: #### C MADM, CMP, DAMIEN, LIPA ####[facility] [address] [address]Dr. Andrea Garcia Globulin (S) [Mass/Vol] 3.5 g/dL Normal [facility] Comment on above: Performed By: #### C MADM, CMP, DAMIEN, LIPA ####[facility] [address] [address]Dr. Andrea Garcia Glucose [Mass/Vol] 110 mg/dL Critically high 74-106 [facility] Comment on above: Performed By: #### C MADM, CMP, DAMIEN, LIPA ####[facility] [address] [address]Dr. Andrea Garcia Potassium [Moles/Vol] 4.3 mmol/L Normal 3.5-5.1 [facility] Comment on above: Performed By: #### C MADM, CMP, DAMIEN, LIPA ####[facility] [address] [address]Dr. Andrea Garcia Protein [Mass/Vol] 6.7 g/dL Normal 6.4-8.2 [facility] Comment on above: Performed By: #### C MADM, CMP, DAMIEN, LIPA ####[facility] [address] [address]Dr. Andrea Garcia Sodium [Moles/Vol] 140 mmol/L Normal 136-145 [facility] Comment on above: Performed By: #### C MADM, CMP, DAMIEN, LIPA ####[facility] [address] [address]Dr. Andrea Garcia Urea nitrogen [Mass/Vol] 20.0 mg/dL Critically high 7.0-18.0 [facility] Comment on above: Performed By: #### C MADM, CMP, DAMIEN, LIPA ####[facility] [address] [address]Dr. Andrea Garcia Urea nitrogen/Creatinine [Mass ratio] 18.9 mg/mg Normal [facility] Comment on above: Performed By: #### C MADM, CMP, DAMIEN, LIPA ####[facility] [address] [address]Dr. Andrea Garcia URINE MICROSCOPIC ONLYon BACTERIA NONE SEEN Normal NONE SEEN [facility] Comment on above: Performed By: #### U MICRO, ERUR #### [facility] [address] [address] [address] Andrea Garcia Bacteria identified Cx Nom (U) NOT INDICATED Normal [facility] Comment on above: Performed By: #### U MICRO, ERUR #### [facility] [address] [place] [address] Dr. Andrea Garcia CAST NONE SEEN Normal NONE SEEN [facility] Comment on above: Performed By: #### U MICRO, ERUR #### [facility] [address] [place] [address] Dr. Andrea Garcia Crystals LM Nom (Urine sed) NONE SEEN Normal NONE SEEN [facility] Comment on above: Performed By: #### U MICRO, ERUR #### [facility] [address] [place] [address] Dr. Andrea Garcia Epithelial cells LM Ql (Urine sed) NONE SEEN Normal NONE SEEN /RARE [facility] Comment on above: Performed By: #### U MICRO, ERUR #### [facility] [address] [place] [address] Dr. Andrea Garcia MUCOUS NONE SEEN Normal NONE SEEN [facility] Comment on above: Performed By: #### U MICRO, ERUR #### [facility] [address] [place] [address] Dr. Andrea Garcia RBC 0-2 Normal 0-2 [facility] Comment on above: Performed By: #### U MICRO, ERUR #### [facility] [address] [place] [address] Dr. Andrea Garcia WBC 0-2 Abnormal NONE SEEN [facility] Comment on above: Performed By: #### U MICRO, ERUR #### [facility] [address] [place] [address] Dr. Andrea Garcia XR CHEST 1 Von 01-10-2023 XR CHEST 1 V Exam: Radiographs: X R CHEST 1 V Reason for exam: Nausea/vomiting Comparison: None IMPRESSION: Negative chest. Electronically authenticated by: ADITYA OATES Date: 2023-01-10 07:42 Normal [facility] MRI Soft Tissue Neck w/o [...] by KENN RAPHAEL on 10/06/2021 1605 Normal [facility] Specialist CT Soft Tissue Neck w/ [...] by Que Greene on 09/29/2021 1013 Normal [facility] Director Records Management Vital Signs Date Time Vital Sign Value Performing Clinician Ethan liu 01-09-2024 19:01-0400 Diastolic blood pressure 99 mm[Hg] MD Rodriguez Godwin Work Phone: [facility] 01-09-2024 19:01-0400 Heart rate 84 /min MD Rodriguez Godwin Work Phone: [facility] 01-09-2024 19:01-0400 Respiratory rate 18 /min MD Rodriguez Godwin Work Phone: [facility] 01-09-2024 19:01-0400 SaO2% (BldA) [Mass fraction] 97 % MD Rodriguez Godwin Work Phone: [facility] 01-09-2024 19:01-0400 Systolic blood pressure 190 mm[Hg] MD Rodriguez Godwin Work Phone: [facility] 01-09-2024 14:29-0400 Body height 187.96 cm MD Rodriguez Godwin Work Phone: [facility] 01-09-2024 14:29-0400 Body temperature 98.3 [degF] MD Rodriguez Godwin Work Phone: [facility] 01-09-2024 14:29-0400 Body weight 83 kg MD Rodriguez Godwin Work Phone: [facility] 12-18-2023 13:10-0400 Heart rate 85 /min MD Rodriguez Godwin Work Phone: [facility] 12-18-2023 13:09-0400 Body temperature 97.9 [degF] MD Rodriguez Godwin Work Phone: [facility] 12-18-2023 13:09-0400 Diastolic blood pressure 77 mm[Hg] MD Rodriguez Godwin Work Phone: [facility] 12-18-2023 13:09-0400 Respiratory rate 18 /min MD Rodriguez Godwin Work Phone: [facility] 12-18-2023 13:09-0400 SaO2% (BldA) [Mass fraction] 97 % MD Rodriguez Godwin Work Phone: [facility] 12-18-2023 13:09-0400 Systolic blood pressure 161 mm[Hg] MD Rodriguez Godwin Work Phone: [facility] 12-18-2023 13:06-0400 Body height 186.69 cm MD Rodriguez Godwin Work Phone: [facility] 12-18-2023 13:06-0400 Body weight 81 kg MD Rodriguez Godwin Work Phone: [facility] 03-03-2023 13:30-0400 Diastolic blood pressure 100 mm[Hg] MD Rodriguez Godwin Work Phone: [facility] 03-03-2023 13:30-0400 Heart rate 59 /min MD Rodriguez Godwin Work Phone: [facility] 03-03-2023 13:30-0400 Respiratory rate 18 /min MD Rodriguez Godwin Work Phone: [facility] 03-03-2023 13:30-0400 SaO2% (BldA) [Mass fraction] 99 % MD Rodriguez Godwin Work Phone: [facility] 03-03-2023 13:30-0400 Systolic blood pressure 160 mm[Hg] MD Rodriguez Godwin Work Phone: [facility] 03-03-2023 11:36-0400 Body height 175.26 cm MD Rodriguez Godwin Work Phone: [facility] 03-03-2023 11:36-0400 Body temperature 98 [degF] MD Rodriguez Godwin Work Phone: [facility] 03-03-2023 11:36-0400 Body weight 84.3 kg MD Rodriguez Godwin Work Phone: [facility] Encounters Encounter Date Encounter Type Care Provider Facility Start: 04-06-2024 End: 04-06-2024 ambulatory [facility] Start: 01-09-2024 End: 01-09-2024 Emergency department patient visit Rodriguez Godwin Facility:[facility] Start: 01-09-2024 End: 01-09-2024 Emergency department patient visit MD Rodriguez Godwin Work Phone: [facility] Work Phone: Start: 12-18-2023 End: 12-18-2023 Emergency department patient visit Marie Garrison Facility:[facility] Start: 12-18-2023 End: 12-18-2023 Emergency department patient visit MD Rodriguez Godwin Work Phone: [facility] Work Phone: Start: 12-09-2023 End: 12-09-2023 ambulatory [facility] Start: 06-07-2023 End: 06-07-2023 ambulatory [facility] Start: 05-27-2023 End: 05-27-2023 ambulatory [facility] Start: 03-03-2023 End: 03-03-2023 Emergency department patient visit Ramiro Cortez Facility:[facility] Start: 03-03-2023 End: 03-03-2023 Emergency department patient visit MD Rodrigeuz Godwin Work Phone: [facility] Work Phone: Start: 01-10-2023 End: 01-11-2023 Evaluation and management of inpatient DR DOCTOR CROCKER Facility:[facility] Procedures Date Procedure Procedure Detail Performing Clinician Start: 01-09-2024 CT angiography of thorax MD Rodriugez Godwin Work Phone: Start: 01-09-2024 Plain chest X-ray MD Valdivia Work Phone: Start: 03-03-2023 Plain chest X-ray MD Valdivia Work Phone: Plan of Treatment Date Care Activity Detail Author Start: 12-18-2023 [facility] Patient Education [facility] Work Phone: Patient referral [facility] Work Phone: Payers Date Payer Category Payer Self-pay [id number] 1960 Medicare [id number] 1950 Unknown [id number] Unknown [id number] Unknown [id number] Unknown [id number] Social History Date Type Detail Facility Start: 03-03-2023 End: 01-09-2024 Tobacco smoking status NHIS Ex-smoker (finding) [facility] Start: 1950 Sex Assigned At Male F [facility] Progress note 04-06-2024 Note Date & Type Note Facility 04-06-2024 Note [facility] Subjective Jeb Riddle is a 73 y.o. year old male patient here for a follow up echo from January, he was amitted to [facility], for chest pain a couple weeks ago and had another echo. He had a lipid panel yesterday. At last appointment his statin was changed. 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 He still rides his bike to [employer] everyday, still active. Patient Active Problem List [...] He was admitted to the hospital at [facility] and was started on anticoagulation [...] metoprolol succinate XL (more content not included)... [facility] Progress note 12-09-2023 Note Date & Type Note Facility 12-09-2023 Note 8K can you read, out of the so I can make changes in [place] [facility] Subjective Jeb Riddle is a 73 [...] presented to the emergency room at the [facility] and investigation including a CT [...] prav (more content not included)... [facility] Progress note 06-07-2023 Note Date & Type [...] norm (more content not included)... [facility] Progress note 05-27-2023 Note Date & Type Note Facility 05-27-2023 Note [place] [facility] Heart [...] Rate 04/06/2023 80 Atrial Rate 04/06/2023 80 MI Interval 04/06/2023 176 QRS DURATION 04/06/2023 98 QT Interval 04/06/2023 396 QTC CALCULATION(BAZETT) 04/06/2023 456 P Barling 04/06/2023 79 R-Barling 04/06/2023 75 T Wave Barling 04/06/2023 73 Imaging and other tests Cardiac catheterization 04/06/2023: Impression/Findings: Coronary angiogram shows non-obstructive coronary artery disease. Plan: Medical therapy for (more content not included)... [facility] Evaluation note Note Date & Type Note Facility Evaluation note No assessment information availa ble [facility] Work Phone: Hospital Discharge instructions Note Date & Type Note Facility Hospital Discharge instructions Additional Instructions Continue Pepcid once or twice a day as needed Guffey diet Follow-up with your family doctor for [...] section and content) DATE CREATED AUTHOR 10/07/2021 [facility] DATE CREATED AUTHOR AUTHOR'S ORGANIZ ATION 01/21/2023 [facility] DATE CREATED AUTHOR AUTHOR'S ORGANIZ ATION 01/09/2024 [facility] DATE CREATED AUTHOR AUTHOR'S ORGANIZ ATION 04/20/2024 [facility] Care Teams (unrecognized sec tion [...] 09, 2024 End: January 09, 2024 Naima Byod [facility] Emergency Provider Active Start: January 09, [...] BE BASED ON THE PRIMARY CLINICAL RECORDS. [facility] [employer] [facility]. provides no warranty or guarantee of the accuracy or completeness of information in this document.
[2024-04-28 04:10] LABS: PSA, Free 0.69 ng/mL; Prostate Specific Ag 4.1 ng/mL (0.0-4.0)
== END 2024-04-27 12:05 | disposition home or self-care (01) ==
LOC: LAB 12:05
PROVIDERS: Family Provider Family Medicine; PCP Family Medicine; Visit Provider Family Medicine
DX: R97.20 Elevated prostate specific antigen [PSA] (principal)
CPT/HCPCS: 36415; 84153; 84154

== ENCOUNTER 2024-08-30 20:36 | Emergency (ER) | payer MEDICARE, SELFPAY ==
--- OUTSIDE RECORDS SUMMARY | 2024-08-30 20:41 | XMS_ITS | CCD ---
Author Organization [facility] Care Team Providers Care Pcmh Specialist Name Role Phone DR BEHZAD CROCKER Primary Care Unavailable DANIEL ., JUNI Attending Unavailable DANIEL ., JUNI Admitting Unavailable DR ROBERT DAVENPORT V Consulting Unavailable PITER GROSSMAN Consulting Unavailable DANIEL ., JUNI Consulting Unavailable DIAB ., GRAYSON Consulting Unavailable ADITYA OATES Consulting Unavailable MD Lauren Godwin Primary Care Provider [phone] DO Ramiro Cortez Emergency Provider MD Lauren Godwin Primary Care Provider [phone] KYA Garrison Emergency Provider Bulldk, WOUND TREATMENT RN-BC Naima Phelan Emergency Provider [phone] Lauren Godwin Primary Care Unavailable Naima Boyd Admitting Unavailable Naima Boyd Attending Unavailable Ramiro Cortez Admitting Unavailable Ramiro Cortez Attending Unavailable Lauren Godwin Primary Care Unavailable Marie Garrison Attending Unavailable Lauren Godwin Primary Care Unavailable Marie Garrison Admitting Unavailable JESSICA FORRESTER Attending Unavailable SHIV SHIRLEY Attending Unavailable JESSICA FORRESTER Attending Unavailable JESSICA FORRESTER Attending Unavailable SHIV DICKERSON Attending Unavailable LAUREN GODWIN Primary Care Unavailable Allergies Allergy Classification Reported Allergen(s) Allergy Type Date of Onset Reaction(s) Facility (2 sources) Fish derivative; Translations: [fish derived] Propensity to adverse reactions 03-03-20 Gastrointestinal Upset [facility] (1 source) atorvastatin; Translations: [ATORVASTATIN] Drug Allergy 04-06-20 [facility] Repository Medications Current Medications Medication Drug [...] disease (2 sources) Atherosclerotic heart disease of [place] coronary artery without angina pectoris; Translations: [Atherosclerotic heart disease of [place] coronary artery without angina pectoris] 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; convulsions (1 source) Unspecified convulsions; Translations: [Unspecified convulsions] Onset: 08-09-2024 Episodic Essential hypertension (3 sources) Essential (primary) hypertension; Translations: [ESSENTIAL PRIMARY HYPERTENSION] Onset: 01-12-2023 Chronic Other aftercare (1 source) detention (current) use of systemic steroids; Translations: [SNF USE OF SYSTEMIC STEROIDS] Onset: 01-12-2023 Episodic Other aftercare (1 source) Other vermin exterminator (current) drug therapy; Translations: [OTH SNF CURRENT DRUG THERAPY] Onset: 01-12-2023 Episodic Other and ill-defined heart disease (2 sources) Cardiomegaly; Translations: [Cardiomegaly] Onset: 12-09-2023 Chronic Other nutritional; endocrine; and metabolic disorders (1 source) Hypomagnesemia; Translations: [Hypomagnesemia] Onset: 08-09-2024 Chronic Other skin disorders (1 source) Disorder [...] tachycardia, unspecified] Onset: 03-24-2023 Unclassified (1 source) Seizure - New Onset Onset: 08-09-2024 Unclassified (1 source) EMS Onset: 08-09-2024 Past or Other Problems Problem Classification Problem Date Documented Da te Episodic/Chronic Nonspecific chest pain (2 sources) Atypical chest pain; Translations: [Other chest pain] Onset: 03-03-2023 01-09-2024 Episodic Unclassified (1 source) Other ventricular tachycardia; Translations: [Other ventricular tachycardia] Onset: 12-09-2023 Unclassified (1 source) Ventricular tachycardia, unspecified; Translations: [Ventricular tachycardia, unspecified] Onset: 06-07-2023 Results Test Name Value Interpretation Reference Range Facility CBC AND AUTO DIFFon 08-09-20 ABSOLUTE BASOPHIL 0.0 X10E9/L Normal 0.0-0.2 [facility] Comment on above: Performed By: #### 1 9123-9, 61868-1, CMP, 62405-6, 49112-7, CBCA, 5643-2, PINR #### [facility] ([id number]) [address] [place] [address] 70025 ABSOLUTE NEUTROPHIL 3.9 X10E9/L Normal 1.5-6.6 [facility] Comment on above: Performed By: #### 1 9123-9, 98242-2, CMP, 66982-7, 91566-9, CBCA, 5643-2, PINR #### [facility] ([id number]) [address] [place] [address] 65346 Basophils/100 WBC (Bld) 0.3 % Normal [facility] Comment on above: Performed By: #### 1 9123-9, 04801-7, CMP, 19466-1, 67736-7, CBCA, 5643-2, PINR #### [facility] ([id number]) [address] [place] [address] 73010 Eosinophils (Bld) [#/Vol] 0.1 10*3/uL Normal 0.0-0.4 [facility] Comment on above: Performed By: #### 1 9123-9, 71885-1, CMP, 35010-5, 14635-3, CBCA, 5643-2, PINR #### [facility] ([id number]) [address] [place] [address] 62800 Eosinophils/100 WBC (Bld) 1.4 % Normal [facility] Comment on above: Performed By: #### 1 23-9, 24970-4, CMP, 36726-0, 89948-9, CBCA, 5643-2, PINR #### [facility] ([id number]) [address] [place] [address] 82360 Erythrocyte distribution width (RBC) [Ratio] 13.0 % Normal 11.5-15.0 [facility] Comment on above: Performed By: #### 1 9123-9, 05387-3, CMP, 94764-4, 61679-6, CBCA, 5643-2, PINR #### [facility] ([id number]) [address] [place] [address] 03664 Hematocrit (Bld) [Volume fraction] 35.7 % Low 39-49 [facility] Comment on above: Performed By: #### 1 9123-9, 83530-7, CMP, 29562-2, 77835-5, CBCA, 5643-2, PINR #### [facility] ([id number]) [address] [place] [address] 56836 Hemoglobin (Bld) [Mass/Vol] 12.3 g/dL Low 13.0-17.0 [facility] Comment on above: Performed By: #### 1 9123-9, 66572-6, CMP, 79839-8, 40522-9, CBCA, 5643-2, PINR #### [facility] ([id number]) [address] [place] [address] 80307 Lymphocytes (Bld) [#/Vol] 1.1 10*3/uL Normal 1.0-3.5 [facility] Comment on above: Performed By: #### 1 9123-9, 00294-4, CMP, 65478-8, 77257-2, CBCA, 5643-2, PINR #### [facility] ([id number]) [address] [place] [address] 02810 Lymphocytes/100 WBC (Bld) 21.0 % Normal [facility] Comment on above: Performed By: #### 1 9123-9, 53499-1, CMP, 19245-2, 45508-3, CBCA, 5643-2, PINR #### [facility] ([id number]) [address] [place] [address] [place] [address] MCH (RBC) [Entitic mass] 33.2 pg Normal 27-34 [facility] Comment on above: Performed By: #### 1 9123-9, 18381-6, CMP, 27892-9, 64237-7, CBCA, 5643-2, PINR #### [facility] ([id number]) [address] [place] [address] 90460 MCHC (RBC) [Mass/Vol] 34.3 g/dL Normal 32-36 [facility] Comment on above: Performed By: #### 1 9123-9, 37416-0, CMP, 82177-4, 66145-6, CBCA, 5643-2, PINR #### [facility] ([id number]) [address] [place] [address] 85786 MCV (RBC) [Entitic vol] 97 fL Normal 80-100 [facility] Comment on above: Performed By: #### 1 9123-9, 47132-5, CMP, 29248-0, 27347-4, CBCA, 5643-2, PINR #### [facility] ([id number]) [address] [place] [address] 88284 Monocytes (Bld) [#/Vol] 0.2 10*3/uL Normal 0-0.9 [facility] Comment on above: Performed By: #### 1 9123-9, 35333-5, CMP, 88925-1, 83035-6, CBCA, 5643-2, PINR #### [facility] ([id number]) [address] [place] [address] 25401 Monocytes/100 WBC (Bld) 4.5 % Normal [facility] Comment on above: Performed By: #### 1 9123-9, 28636-9, CMP, 20302-0, 60718-7, CBCA, 5643-2, PINR #### [facility] ([id number]) [address] [place] [address] 95012 Neutrophils/100 WBC (Bld) 72.8 % Normal [facility] Comment on above: Performed By: #### 1 9123-9, 72156-7, CMP, 09281-3, 78249-0, CBCA, 5643-2, PINR #### [facility] ([id number]) [address] [place] [address] 26111 Platelet mean volume (Bld) [Entitic vol] 7.7 fL Normal 7-12 [facility] Comment on above: Performed By: #### 1 9123-9, 36622-8, CMP, 50557-1, 52948-3, CBCA, 5643-2, PINR #### [facility] ([id number]) [address] [place] [address] 78609 Platelets (Bld) [#/Vol] 208 10*3/uL Normal 150-450 [facility] Comment on above: Performed By: #### 1 9123-9, 62021-0, CMP, 68259-0, 00217-0, CBCA, 5643-2, PINR #### [facility] ([id number]) [address] [place] [address] 70684 RBC COUNT 3.69 X10E12/L Low 4.10-5.70 [facility] Comment on above: Performed By: #### 1 9123-9, 69067-1, CMP, 28584-8, 11456-7, CBCA, 5643-2, PINR #### [facility] ([id number]) [address] [place] [address] 32642 WBC (Bld) [#/Vol] 5.4 10*3/uL Normal 4.0-11.0 [facility] Comment on above: Performed By: #### 1 9123-9, 72643-3, CMP, 43738-8, 92117-5, CBCA, 5643-2, PINR #### [facility] ([id number]) [address] [place] [address] 66413 COMPREHENSIVE METABOLIC PANE [facility] 08-09-2024 Albumin [Mass/Vol] 3.5 g/dL Normal 3.2-5.3 [facility] Comment on above: Performed By: #### 1 9123-9, 58002-0, CMP, 53760-5, 16488-6, CBCA, 5643-2, PINR #### [facility] ([id number]) [address] [place] [address] 97427 ALP [Catalytic activity/Vol] 56 U/L Normal 39-130 [facility] Comment on above: Performed By: #### 1 9123-9, 52876-7, CMP, 22453-9, 31772-0, CBCA, 5643-2, PINR #### [facility] ([id number]) [address] [place] [address] 03993 ALT [Catalytic activity/Vol] 25 U/L Normal 0-40 [facility] Comment on above: Performed By: #### 1 9123-9, 12856-5, CMP, 45206-7, 39207-9, CBCA, 5643-2, PINR #### [facility] ([id number]) [address] [place] [address] 84329 Anion gap [Moles/Vol] 7 mmol/L Normal 5-15 [facility] Comment on above: Performed By: #### 1 9123-9, 67366-9, CMP, 80925-4, 81575-3, CBCA, 5643-2, PINR #### [facility] ([id number]) [address] [place] [address] 06500 AST [Catalytic activity/Vol] 19 U/L Normal 0-41 [facility] Comment on above: Performed By: #### 1 9123-9, 01225-2, CMP, 73528-3, 98504-3, CBCA, 5643-2, PINR #### [facility] ([id number]) [address] [place] [address] 60997 Bilirubin [Mass/Vol] 0.4 mg/dL Normal 0.3-1.2 [facility] Comment on above: Performed By: #### 1 9123-9, 89285-3, CMP, 82063-0, 77464-3, CBCA, 5643-2, PINR #### [facility] ([id number]) [address] [place] [address] 17130 Calcium [Mass/Vol] 8.8 mg/dL Normal 8.5-10.5 [facility] Comment on above: Performed By: #### 1 9123-9, 02238-5, CMP, 25635-6, 10627-3, CBCA, 5643-2, PINR #### [facility] ([id number]) [address] [place] [address] 20590 Chloride [Moles/Vol] 108 mmol/L Normal 98-109 [facility] Comment on above: Performed By: #### 1 9123-9, 58499-3, CMP, 97723-3, 48860-2, CBCA, 5643-2, PINR #### [facility] ([id number]) [address] [place] [address] 66034 CO2 [Moles/Vol] 23 mmol/L Normal 22-32 [facility] Comment on above: Performed By: #### 1 9123-9, 44654-0, CMP, 07361-4, 57098-6, CBCA, 5643-2, PINR #### [facility] ([id number]) [address] [place] [address] 80132 Creatinine [Mass/Vol] 1.37 mg/dL High 0.70-1.20 [facility] Comment on above: Result Comment: METH OD TRACEABLE TO IDMS STANDARD Performed By: #### 1 9123-9, 89484-3, CMP, 54861-1, 16553-4, CBCA, 5643-2, PINR #### [facility] ([id number]) [address] [place] [address] 16065 GFR/1.73 sq M.predicted among non-blacks MDRD (S/P/Bld) [Vol rate/Area] 54 mL/min/{1.73_m2} Low >59 [facility] Comment on above: Result Comment: Reported eGFR is based on the CKD-EPI 1 equation that does not use a race coefficient. Performed By: #### 1 9123-9, 28605-1, CMP, 21454-5, 58796-3, CBCA, 5643-2, PINR #### [facility] ([id number]) [address] [place] [address] 19590 Glucose [Mass/Vol] 155 mg/dL High 65-99 [facility] Comment on above: Performed By: #### 1 9123-9, 14231-9, CMP, 31707-3, 41897-5, CBCA, 5643-2, PINR #### [facility] ([id number]) [address] [place] [address] 34750 Potassium [Moles/Vol] 4.3 mmol/L Normal 3.5-5.0 [facility] Comment on above: Performed By: #### 1 9123-9, 69607-4, CMP, 60860-3, 31752-6, CBCA, 5643-2, PINR #### [facility] ([id number]) [address] [place] [address] 85456 Protein [Mass/Vol] 6.0 g/dL Normal 6.0-8.0 [facility] Comment on above: Performed By: #### 1 9123-9, 46612-4, CMP, 46560-1, 62300-7, CBCA, 5643-2, PINR #### [facility] ([id number]) [address] [place] [address] 65933 Sodium [Moles/Vol] 138 mmol/L Normal 134-146 [facility] Comment on above: Performed By: #### 1 9123-9, 10823-2, CMP, 10145-0, 87794-9, CBCA, 5643-2, PINR #### [facility] ([id number]) [address] [place] [address] 04670 Urea nitrogen [Mass/Vol] 25 mg/dL Normal 5-27 [facility] Comment on above: Performed By: #### 1 9123-9, 77435-1, CMP, 02925-2, 75691-6, CBCA, 5643-2, PINR #### [facility] ([id number]) [address] [place] [address] BRAIN WO CONTon CT BRAIN WO CONT CT BRAIN WO CONT CLINICAL INFORMATION: Seizure. COMPARISON: 07/14/22. PROCEDURE: Routine CT Head obtained without contrast. All CT scans at this facility use dose modulation, iterative reconstruction, and/or weight based dosing when appropriate to reduce radiation dose to as low as reasonably achievable. FINDINGS: No acute intracranial hemorrhage. No mass effect or midline shift. No extra-axial fluid collections. The ventricles and sulci are prominent consistent with global atrophy. Low-attenuation areas identified in the periventricular white matter consistent with microvascular ischemia. No depressed calvarial fracture. Vascular calcifications. IMPRESSION: * No acute intracranial findings by CT. Finalized by Damian Moran MD on 08/09/2024 12:54 PM Normal [facility] DRUG SCREEN, URINEon 024 AMPHETAMINE/METHAMP Negative Normal NEG [facility] Comment on above: Result Comment: AMPH /METH screening cut off = 1000 ng/mL Performed By: #### 1 9123-9, 08317-8, CMP, 88602-1, 54729-9, CBCA, 5643-2, PINR #### [facility] ([id number]) [address] [place] [address] 66725 BARBITURATES Negative Normal NEG [facility] Comment on above: Result Comment: Maria Eugenia iturates screening cut off value = 200 ng/mL Performed By: #### 1 9123-9, 99849-5, CMP, 43309-5, 51088-7, CBCA, 5643-2, PINR #### [facility] ([id number]) [address] [place] [address] 03811 BENZODIAZEPINES Negative Normal NEG [facility] Comment on above: Result Comment: Paulie odiazepines screening cut off value = 200 ng/mL Performed By: #### 1 9123-9, 63371-7, CMP, 56818-4, 00296-8, CBCA, 5643-2, PINR #### [facility] ([id number]) [address] [place] [address] 54398 CANNABINOIDS Negative Normal NEG [facility] Comment on above: Result Comment: Nora abinoids/THC screening cut off value = 50 ng/mL Performed By: #### 1 9123-9, 23046-8, CMP, 43922-2, 82320-3, CBCA, 5643-2, PINR #### [facility] ([id number]) [address] [place] [address] 32003 COCAINE METABOLITE Negative Normal NEG [facility] Comment on above: Result Comment: Coca ine screening cut off value = 300 ng/mL Performed By: #### 1 9123-9, 55285-4, [facility], 49560-4, 21711-2, CBCA, 5643-2, PINR #### [facility] ([id number]) [address] [place] [address] 68639 ECSTASY Negative Normal NEG [facility] Comment on above: Result Comment: Ecst asy screening cut off value = 500 ng/mL This report is intended for use in clinical monitoring or management of patients. Performed By: #### 1 9123-9, 02062-0, [facility], 12969-2, 84977-4, CBCA, 5643-2, PINR #### [facility] ([id number]) [address] [place] [address] 48602 METHADONE Negative Normal NEG [facility] Comment on above: Result Comment: Meth adone screening cut off value = 300 ng/mL. Performed By: #### 1 9123-9, 39932-4, CMP, 84792-3, 42092-6, CBCA, 5643-2, PINR #### [facility] ([id number]) [address] [place] [address] 72810 OPIATES Negative Normal NEG [facility] Comment on above: Result Comment: Opia brennen screening cut off value = 300 ng/mL NOTE: This test is used for the detection of codeine, hydrocodone (>1000 ng/mL), morphine and hydromorphone (>900 ng/mL) in urine. Performed By: #### 1 9123-9, 30392-2, CMP, 99663-1, 74831-4, CBCA, 5643-2, PINR #### [facility] ([id number]) [address] [place] [address] 50375 OXYCODONE Negative Normal NEG [facility] Comment on above: Result Comment: Oxyc odone screening cut off value = 300 ng/mL NOTE: This test is used for the detection of oxycodone and oxymorphone in urine. Performed By: #### 1 9123-9, 08080-7, [facility], 02712-6, 67627-4, CBCA, 5643-2, PINR #### [facility] ([id number]) [address] [place] [address] 52589 PHENCYCLIDINE Negative Normal NEG [facility] Comment on above: Result Comment: Phen cyclidine screening cut off value = 25 ng/mL Performed By: #### 1 9123-9, 82543-3, [facility], 28223-9, 40937-9, CBCA, 5643-2, PINR #### [facility] ([id number]) [address] [place] [address] 84875 ETHANOLon 08-09-2024 Ethanol [Mass/Vol] mg/dL Normal 0.00-0.08 [facility] Comment on above: Result Comment: This report is intended for use in clinical monitoring or management of patients. Performed By: #### 1 9123-9, 16100-2, CMP, 26467-8, 93649-7, CBCA, 5643-2, PINR #### [facility] ([id number]) [address] [place] [address] [place] [address] Fibrin D-dimer DDU (PPP) [Ma ss/Vol]on 08-09-2024 D DIMER 167 ng/mL DDU Normal <255 [facility] Comment on above: Result Comment: Results <255 ng/mL DDU: The presence of a VTE can safely be excluded with a negative D-Dimer result and Wells score. A negative result doesn't exclude the possibility of DIC. The test be repeated along with other diagnostic tests if the patient's symptoms persist or worsen. [email or web address] Performed By: #### 1 9123-9, 25691-4, CMP, 36618-7, 57016-9, CBCA, 5643-2, PINR #### [facility] ([id number]) [address] [place] [address] 00211 MAGNESIUMon 08-09-2024 Magnesium [Mass/Vol] 1.4 mg/dL Low 1.8-2.6 [facility] Comment on above: Performed By: #### 1 9123-9, 56347-5, [facility], 89765-7, 94438-1, CBCA, 5643-2, PINR #### [facility] ([id number]) [address] [place] [address] 73437 PROTIME AND INRon 08-09-2024 INR Coag (PPP) [Relative time] 1.2 {INR} High 0.8-1.1 [facility] Comment on above: Performed By: #### 1 9123-9, 04127-8, CMP, 31557-8, 72250-9, CBCA, 5643-2, PINR #### [facility] ([id number]) [address] [place] [address] 37407 PT Coag (PPP) [Time] 14.3 s High 9.8-13.2 [facility] Comment on above: Result Comment: NEW REFERENCE RANGE Performed By: #### 1 9123-9, 83791-9, CMP, 65603-6, 36247-3, CBCA, 5643-2, PINR #### [facility] ([id number]) [address] [place] [address] 90539 Troponin I.cardiac High sens itivity method [Mass/Vol]on 08-09-2024 1 HOUR TROP I, HIGH SENSITIVITY 10 ng/L Normal <21 [facility] Comment on above: Performed By: #### 1 9123-9, 46005-7, CMP, 22170-5, 52259-2, CBCA, 5643-2, PINR #### [facility] ([id number]) [address] [place] [address] 82300 TROPONIN I, HIGH SENSITIVITY 8 ng/L Normal <21 [facility] Comment on above: Performed By: #### 1 9123-9, 74183-9, CMP, 06274-6, 96992-1, CBCA, 5643-2, PINR #### [facility] ([id number]) [address] [place] [address] 26008 URINALYSISon 08-09-2024 Bilirubin Ql (U) Negative Normal NEG [facility] Comment on above: Performed By: #### 1 9123-9, 55470-0, CMP, 59059-5, 48737-8, CBCA, 5643-2, PINR #### [facility] ([id number]) [address] [place] [address] 54537 BLOOD/HGB Negative Normal NEG [facility] Comment on above: Performed By: #### 1 9123-9, 33250-1, CMP, 66879-5, 59677-6, CBCA, 5643-2, PINR #### [facility] ([id number]) [address] [place] [address] 76732 Color (U) YELLOW Normal YELLOW [facility] Comment on above: Performed By: #### 1 9123-9, 83374-0, CMP, 27073-7, 72747-5, CBCA, 5643-2, PINR #### [facility] ([id number]) [address] [place] [address] 35285 Glucose Ql (U) Negative Normal NEG [facility] Comment on above: Performed By: #### 1 9123-9, 37837-2, CMP, 89663-4, 25861-7, CBCA, 5643-2, PINR #### [facility] ([id number]) [address] [place] [address] 49595 Ketones Ql (U) Negative Normal NEG [facility] Comment on above: Performed By: #### 1 9123-9, 48205-2, CMP, 45224-1, 23824-7, CBCA, 5643-2, PINR #### [facility] ([id number]) [address] [place] [address] [place] [address] Leukocyte esterase Test strip Ql (U) Negative Normal NEG [facility] Comment on above: Performed By: #### 1 9123-9, 89032-9, CMP, 48368-8, 78557-0, CBCA, 5643-2, PINR #### [facility] ([id number]) [address] [place] [address] 17699 Nitrite Ql (U) Negative Normal NEG [facility] Comment on above: Performed By: #### 1 9123-9, 86741-5, CMP, 58857-5, 95295-8, CBCA, 5643-2, PINR #### [facility] ([id number]) [address] [place] [address] 89220 pH (U) 6.0 [pH] Normal 5.0-8.5 [facility] Comment on above: Performed By: #### 1 9123-9, 05032-8, CMP, 11354-2, 73958-0, CBCA, 5643-2, PINR #### [facility] ([id number]) [address] [place] [address] 67782 Protein Ql (U) Negative Normal NEG [facility] Comment on above: Performed By: #### 1 9123-9, 72302-4, CMP, 39136-4, 59625-2, CBCA, 5643-2, PINR #### [facility] ([id number]) [address] [place] [address] Specific gravity (U) [Rel density] 1.025 Normal 1.003-1.03 5 [facility] Comment on above: Performed By: #### 1 9123-9, 81937-8, CMP, 72342-7, 84343-0, CBCA, 5643-2, PINR #### [facility] ([id number]) [address] [place] [address] TURBIDITY CLEAR Normal CLEAR [facility] Comment on above: Performed By: #### 1 9123-9, 75049-7, CMP, 89815-3, 58189-0, CBCA, 5643-2, PINR #### [facility] ([id number]) [address] [place] [address] Urobilinogen Qn (U) 0.2 {Temo'U}/dL Normal <1.1 [facility] Comment on above: Performed By: #### 1 9123-9, 71068-9, CMP, 79532-8, 20994-1, CBCA, 5643-2, PINR #### [facility] ([id number]) [address] [place] [address] URN MACROSCOPIC NURon 2023 BILIRUBIN FRANKLIN Negative Normal NEG [facility] Comment on above: Performed By: #### N UM #### [facility] ([id number]) [address] [place] [address] [place] [address] BLOOD/HGB FRANKLIN Negative Normal NEG [facility] Comment on above: Performed By: #### N UM #### [facility] ([id number]) [address] [place] [address], [place] [address] GLUCOSE FRANKILN Negative Normal NEG [facility] Comment on above: Performed By: #### N UM #### [facility] ([id number]) [address] [place] [address], [place] [address] KETONES FRANKLIN Negative Normal NEG [facility] Comment on above: Performed By: #### N UM #### [facility] ([id number]) [address] [place] [address] [place] [address] LEUKOCYTE ESTERASE FRANKLIN Negative Normal NEG Pr [facility] Comment on above: Performed By: #### N UM #### [facility] ([id number]) [address] [place] [address], [place] [address] NITRITE FRANKLIN Negative Normal NEG [facility] Comment on above: Performed By: #### N UM #### [facility] ([id number]) [address] [place] [address], [place] [address] PH FRANKLIN 5.5 Normal 5.0-8.5 [facility] Comment on above: Performed By: #### N UM #### [facility] ([id number]) [address] [place] [address] [place] [address] PROTEIN FRANKLIN Negative Normal NEG [facility] Comment on above: Performed By: #### N UM #### [facility] ([id number]) [address] [place] [address], [place] [address] SPECIFIC GRAVITY FRANKLIN 1.020 Normal 1.003-1 .03 5 [facility] Comment on above: Performed By: #### N UM #### [facility] ([id number]) [address] [place] [address] UROBILINOGEN FRANKLIN 0.2 eu/dL Normal <1.1 [facility] Comment on above: Performed By: #### N UM #### [facility] ([id number]) [address] [place] [address] aPTT Coag (PPP) [Time]on aPTT Coag (Bld) [Time] 33 s Normal 26-37 [facility] Comment on above: Result Comment: NEW REFERENCE RANGE Performed By: #### 1 9123-9, 42063-4, CMP, 45559-5, 14363-7, CBCA, 5643-2, PINR #### [facility] ([id number]) [address] [place] [address] 36on 04-18-2024 36 From: Jessica muñoz MD Sent: 04/18/2024 12:32 PM EDT To: Yuridia Nuñez MA Subject: RE: Scan Please inform him that blood testing for clotting disorder is negative. He should follow up with Dr Godwin for cancer screening. Pt has been notified [facility] Office Visiton 04-06-2024 Follow-up visit [id number] Jeb Riddle 1950 M Date Provider Department Center 04/06/2024 JESSICA JAMISON [facility] Family History Problem Relation Age of Onset Diabetes Mother Coronary artery disease Mother Heart attack Father Diabetes Father Coronary artery disease Father Family Status - Relation Status Age at Mother Father Level of Service:38053 DC OFFICE/OUTPATIENT ESTABLISHED MOD MDM [address] [facility] 3602-17-2024 36 Patient called back and said he is taking meds as prescribed at last visit with Dr. Forrester. I made him apt with Dr. Forrester end of Mar since he is not here in Apr. [facility] 36on 02-15-2024 36 Regarding echo from 02/02/2024: MD Yuridia Herman MA Has he been taking meds as I recommended at last visit? 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 He should come for a visit in 3 months. LM w/ sister Mary to return my call. Normal [facility] Activated partial thrombopla stin time (aPTT) in platelet poor plasma by coagulation aOrdered By: Naima Boyd on 01-09-2024 aPTT Coag (PPP) [Time] 29.1 s 25.1-36.5 [facility] Comment on above: A hematocrit value g reater than 55% may lead to inaccurate results in coagulation testing. Patients having hematocrit values >55% require a special collection tube for coagulation studies. Please contact the laboratory at [phone] for redraw instructions. B-Type Natriuretic Peptideon 01-09-2024 Natriuretic peptide B (Bld) [Mass/Vol] 172.0 pg/mL High 5-100 [facility] Comment on above: Result Comment: PERF ORMED BY: [facility] [address] [place] [id number] PATHOLOGIST CONTINUOUS IMPROVEMENT SPECIALIST RADHA BARRON M.D. Performed By: #### B BEATER ROOM HELPER, HS TROP, BMP, CK, DIFF CBC ####[address] Basic Metabolic Panelon 12-14 Anion gap [Moles/Vol] Not performed Normal 6.0-15.0 [facility] Comment on above: Performed By: #### B BEATER ROOM HELPER, HS TROP, BMP, CK, DIFF CBC ####[place] [id number] [facility] Calcium [Mass/Vol] 8.7 mg/dL Normal 8.6-10.3 [facility] Comment on above: Performed By: #### B BEATER ROOM HELPER, HS TROP, BMP, CK, DIFF CBC ####[address] Chloride [Moles/Vol] 109 mmol/L High 98-107 [facility] Comment on above: Performed By: #### B BEATER ROOM HELPER, HS TROP, BMP, CK, DIFF CBC ####[place] [id number] [place] CO2 [Moles/Vol] 22.4 mmol/L Normal 21.0-31.0 [facility] Comment on above: Performed By: #### B BEATER ROOM HELPER, HS TROP, BMP, CK, DIFF CBC ####[address] Creatinine [Mass/Vol] 1.16 mg/dL Normal 0.70-1.30 [facility] Comment on above: Performed By: #### B BEATER ROOM HELPER, HS TROP, BMP, CK, DIFF CBC ####[address] Creatinine Clr Calc Pharmacy 64.96 Normal [facility] Comment on above: Result Comment: PERF ORMED BY: [facility] [address] [place] [address] PATHOLOGIST CONTINUOUS IMPROVEMENT SPECIALIST RAHDA BARRON M.D. Performed By: #### B BEATER ROOM HELPER, HS TROP, BMP, CK, DIFF CBC ####[address] GFR/1.73 sq M.predicted MDRD (S/P/Bld) [Vol rate/Area] mL/min/{1.73_m2} Normal [facility] Comment on above: Performed By: #### B BEATER ROOM HELPER, HS TROP, BMP, CK, DIFF CBC ####[address] Glucose [Mass/Vol] 95 mg/dL Normal 70-100 [facility] Comment on above: Result Comment: [place] Glucose Reference Range is dependent on time and content of last meal. Glucose of more than 200 mg/dL in a nonstressed, ambulatory subject supports the diagnosis of Diabetes Mellitus. ADA recommended reference range Performed By: #### B BEATER ROOM HELPER, HS TROP, BMP, CK, DIFF CBC ####[address] Potassium Normal 3.5-5.1 [facility] Comment on above: Result Comment: Spec imen hemolyzed, redraw requested Performed By: #### B BEATER ROOM HELPER, HS TROP, BMP, CK, DIFF CBC ####[facility] [id number] Sodium [Moles/Vol] 142 mmol/L Normal 136-145 [facility] Comment on above: Performed By: #### B BEATER ROOM HELPER, HS TROP, BMP, CK, DIFF CBC ####[facility] [id number] Urea nitrogen [Mass/Vol] 20 mg/dL Normal 7-25 [facility] Comment on above: Performed By: #### B BEATER ROOM HELPER, HS TROP, BMP, CK, DIFF CBC ####[facility] [id number] Basophils Auto (Bld) [#/Vol] Ordered By: Naima Bullimore on 01-09-2024 Basophils (Bld) [#/Vol] N/A [facility] Basophils/100 WBC Auto (Bld) Ordered By: Naima Bullimore on 01-09-2024 Basophils/100 WBC (Bld) N/A [facility] Basophils/100 WBC Manual cnt (Bld)Ordered By: Naima Godwinimore on 01-09-2024 Basophils/100 WBC (Bld) 0 % 0-[address] [facility] [address] angio chest PE protocolon 01-09-2024 CT angio chest PE protocol [facility] [address] CT Scan Report Signed Patient: Jeb Riddle MR#: [id number] : 1950 Acct:[id number] Age/Sex: 73 / M ADM Date: 01/09/24 Loc: ER Room: Type: [facility] ER Attending Dr: Copies to: SABA [...] Jeb Collins M.D.01/09/2024 6:17 PM Dictation Location: [place] [address] Transcribed By: [facility] 01/09/241816 Dictated By: Jeb Collins II, MD 01/09/241810 Signed By: 01/09/241816 Normal [facility] Calcium [Mass/volume] in Ser um or PlasmaOrdered By: Naima Boyd on 01-09-2024 Calcium [Mass/Vol] 8.7 mg/dL 8.6-10.3 [facility] Carbon dioxide, total [Moles /volume] in Serum or PlasmaOrdered By: Naima Boyd on 01-09-2024 CO2 [Moles/Vol] 22.4 mmol/L 21.0-31.0 [facility] Chloride [Moles/volume] in S pooja or PlasmaOrdered By: Naima Boyd on 01-09-2024 Chloride [Moles/Vol] 109 mmol/L 98-107 [facility] Coagulation Profileon 2023 aPTT Coag (Bld) [Time] 29.1 s Normal 25.1-36.5 [facility] Comment on above: Order Comment: REDRA W Result Comment: A he matocrit value greater than 55% may lead to inaccurate results in coagulation testing. Patients having hematocrit values >55% require a special collection tube for coagulation studies. Please contact the laboratory at [phone] for redraw instructions. Performed By: #### P P, DDIMER ####[place] [id number] [place] [address] [facility] INR Coag (PPP) [Relative time] 1.0 {INR} Normal [facility] Comment on above: Order Comment: [...] 4.5 Performed By: #### P P, DDIMER ####[place] [id number] [place] [id number] [facility] PT Coag (PPP) [Time] 11.9 s Normal 9.0-12.9 [facility] Comment on above: Order Comment: REDRA W Result Comment: A he matocrit value greater than 55% may lead to inaccurate results in coagulation testing. Patients having hematocrit values >55% require a special collection tube for coagulation studies. Please contact the laboratory at [phone] for redraw instructions. Performed By: #### P P, DDIMER ####[address] [address] [facility] Creatine Kinaseon 01-09-2024 CK [Catalytic activity/Vol] 81 U/L Normal 30-223 [facility] Comment on above: Performed By: #### B BEATER ROOM HELPER, HS TROP, BMP, CK, DIFF CBC ####[place] [id number] [place] [id number] [facility] Creatine kinase [Enzymatic a ctivity/volume] in Serum or PlasmaOrdered By: Naima Boyd on 01-09-2024 CK [Catalytic activity/Vol] 81 U/L 30-223 [facility] Creatinine [Mass/volume] in Serum or PlasmaOrdered By: Naima Boyd on 01-09-2024 Creatinine [Mass/Vol] 1.16 mg/dL 0.70-1.30 [facility] D-Dimer High Sensitivityon 0 01-09-2024 D-Dimer High Sensitivity 1905 ng/mL High 0-243 [facility] Comment on above: Order Comment: [...] coagulation studies. Please contact the laboratory at [phone] for redraw instructions. PERFORMED BY: [facility] [address] [place] [address] PATHOLOGIST CONTINUOUS IMPROVEMENT SPECIALIST RADHA BARRON M.D. Performed By: #### P P, DDIMER ####[place] [id number] [place] [id number] [facility] Diff and CBCon 01-09-2024 Basophils/100 WBC (Bld) 0 % Normal 0-2 [facility] Comment on above: Performed By: #### B BEATER ROOM HELPER, HS TROP, BMP, CK, DIFF CBC ####[place] [id number] [facility] Eosinophils/100 WBC (Bld) 4 % High 1-3 [facility] Comment on above: Performed By: #### B BEATER ROOM HELPER, HS TROP, BMP, CK, DIFF CBC ####[address] Erythrocyte distribution width (RBC) [Ratio] 14.9 % High 12.0-14.8 [facility] Comment on above: Performed By: #### B BEATER ROOM HELPER, HS TROP, BMP, CK, DIFF CBC ####[address] Hematocrit (Bld) [Volume fraction] 41.9 % Normal 38.8-50.0 [facility] Comment on above: Performed By: #### B BEATER ROOM HELPER, HS TROP, BMP, CK, DIFF CBC ####[address] Hemoglobin (Bld) [Mass/Vol] 14.1 g/dL Normal 13.0-17.0 [facility] Comment on above: Performed By: #### B BEATER ROOM HELPER, HS TROP, BMP, CK, DIFF CBC ####[address] Lymphocytes/100 WBC (Bld) 27 % Normal 18-42 [facility] Comment on above: Performed By: #### B BEATER ROOM HELPER, HS TROP, BMP, CK, DIFF CBC ####[address] MCH (RBC) [Entitic mass] 32.0 pg Normal 27.5-35.2 [facility] Comment on above: Performed By: #### B BEATER ROOM HELPER, HS TROP, BMP, CK, DIFF CBC ####[address] MCV (RBC) [Entitic vol] 95.1 fL Normal 83.5-101 [facility] Comment on above: Performed By: #### B BEATER ROOM HELPER, HS TROP, BMP, CK, DIFF CBC ####[address] Mean Corpuscular HGB Conc 33.6 g/dL Normal 32.5-35.6 [facility] Comment on above: Performed By: #### B BEATER ROOM HELPER, HS TROP, BMP, CK, DIFF CBC ####[address] Monocytes/100 WBC (Bld) 25.58 % High 0.00-20.00 [facility] Comment on above: Result Comment: For adults in ED, MDW > 20.0 may be associated with a higher risk of sepsis during the first 12 hrs of hospital admission Performed By: #### B BEATER ROOM HELPER, HS TROP, BMP, CK, DIFF CBC ####[address] Monocytes/100 WBC (Bld) 7 % Normal 2-11 [facility] Comment on above: Performed By: #### B BEATER ROOM HELPER, HS TROP, BMP, CK, DIFF CBC ####[address] Nucleated Red Blood Cell 0 /100{WBC} Normal 0-0 [facility] Comment on above: Performed By: #### B BEATER ROOM HELPER, HS TROP, BMP, CK, DIFF CBC ####[address] Platelet Estimate Normal Normal Normal [facility] Comment on above: Performed By: #### B BEATER ROOM HELPER, HS TROP, BMP, CK, DIFF CBC ####[address] Platelet mean volume (Bld) [Entitic vol] 8.6 fL Normal 6.6-10.1 [facility] Comment on above: Performed By: #### B BEATER ROOM HELPER, HS TROP, BMP, CK, DIFF CBC ####[address] Platelet Morphology Normal Normal Normal [facility] Comment on above: Performed By: #### B BEATER ROOM HELPER, HS TROP, BMP, CK, DIFF CBC ####[address] Platelets (Bld) [#/Vol] 240 10*3/uL Normal 150-450 [facility] Comment on above: Performed By: #### B BEATER ROOM HELPER, HS TROP, BMP, CK, DIFF CBC ####[address] Plt Comment SEE COMMENT BELOW Normal [facility] Comment on above: Result Comment: NO C LOTS, NO CLUMPS, SHORT DRAW LFM PERFORMED BY: [facility] [address] [place] [address] PATHOLOGIST CONTINUOUS IMPROVEMENT SPECIALIST RADHA BARRON M.D. Performed By: #### B BEATER ROOM HELPER, HS TROP, BMP, CK, DIFF CBC ####[address] RBC (Bld) [#/Vol] 4.41 10*6/uL Normal 3.90-5.60 [facility] Comment on above: Performed By: #### B BEATER ROOM HELPER, HS TROP, BMP, CK, DIFF CBC ####[address] RBC morphology finding Nom (Bld) Normal Normal Normal [facility] Comment on above: Performed By: #### B BEATER ROOM HELPER, HS TROP, BMP, CK, DIFF CBC ####[address] Segmented neutrophils/100 WBC (Bld) 62 % Normal 50-70 [facility] Comment on above: Performed By: #### B BEATER ROOM HELPER, HS TROP, BMP, CK, DIFF CBC ####[address] WBC (Bld) [#/Vol] 7.6 10*3/uL Normal 4.1-10.5 [facility] Comment on above: Performed By: #### B BEATER ROOM HELPER, HS TROP, BMP, CK, DIFF CBC ####[address] WBC (Bld) [#/Vol] 8.4 10*3/uL Normal 4.1-10.5 [facility] Comment on above: Performed By: #### B BEATER ROOM HELPER, HS TROP, BMP, CK, DIFF CBC ####[address] ECG 12 lead ECGon 01-09-2024 ECG 12 lead ECG [facility] [address] Electrocardiograph Report Signed Patient: Jeb Riddle MR#: [id number] : 1950 Acct:[id number] Age/Sex: 73 / M ADM Date: 01/09/24 Loc: ER Room: Type: [facility] ER Attending Dr: Ordering Provider: SABA [...] By Adam Patterson DO 1828 Normal [facility] Eosinophils Auto (Bld) [#/Vo l]Ordered By: Naima Boyd on 01-09-2024 Eosinophils (Bld) [#/Vol] N/A [facility] Eosinophils/100 WBC Auto (Bl d)Ordered By: Naima Boyd on 01-09-2024 Eosinophils/100 WBC (Bld) N/A [facility] Eosinophils/100 WBC Manual c nt (Bld)Ordered By: Naima Boyd on 01-09-2024 Eosinophils/100 WBC (Bld) 4 % 1-3 [facility] Erythrocyte distribution wid th Auto (RBC) [Ratio]Ordered By: Naima Boyd on 01-09-2024 Erythrocyte distribution width (RBC) [Ratio] 14.9 % 12.0-14.8 [facility] Fibrin D-dimer [Presence] in Platelet poor plasma by Latex agglutinationOrdered By: Naima Boyd on 01-09-2024 Fibrin D-dimer LA Ql (PPP) 1905 ng/mL 0-243 [facility] Comment on above: The reference range for [...] coagulation studies. Please contact the laboratory at [phone] for redraw instructions. Glucose [Mass/volume] in Ser um or PlasmaOrdered By: Naima Boyd on 01-09-2024 Glucose [Mass/Vol] 95 mg/dL 70-100 [facility] Comment on above: ADA recommended refe rence rangeRandom Glucose Reference Range is dependent on time and content of last meal. Glucose of more than 200 mg/dL in a nonstressed, ambulatory subject supports the diagnosis of Diabetes Mellitus. Hematocrit Auto (Bld) [Volum e fraction]Ordered By: Naima Boyd on 01-09-2024 Hematocrit (Bld) [Volume fraction] 41.9 % 38.8-50.0 [facility] Hemoglobin [Mass/volume] in BloodOrdered By: Naima Boyd on 01-09-2024 Hemoglobin (Bld) [Mass/Vol] 14.1 g/dL 13.0-17.0 [facility] INR in Platelet poor plasma by Coagulation assayOrdered By: Naima Boyd on 01-09-2024 INR Coag (PPP) [Relative time] 1.0 {INR} [facility] Comment on above: INR Therapeutic Rang e [...] RBC Auto (Bld) [#/Vol] 7.6 10*3/uL 4.1-10.5 [facility] Lymphocytes Auto (Bld) [#/Vo l]Ordered By: Naima Bullimore on 01-09-2024 Lymphocytes (Bld) [#/Vol] N/A [facility] Lymphocytes/100 WBC Auto (Bl d)Ordered By: Naima Godwinimore on 01-09-2024 Lymphocytes/100 WBC (Bld) N/A [facility] Lymphocytes/100 WBC Manual c nt (Bld)Ordered By: Naima Godwinimore on 01-09-2024 Lymphocytes/100 WBC (Bld) 27 % 18-42 [facility] MCH Auto (RBC) [Entitic mass ]Ordered By: Naima Godwinimore on 01-09-2024 MCH (RBC) [Entitic mass] 32.0 pg 27.5-35.2 [facility] MCHC Auto (RBC) [Mass/Vol]Or dered By: Naima Godwinimore on 01-09-2024 MCHC (RBC) [Mass/Vol] 33.6 g/dL 32.5-35.6 [facility] MCV Auto (RBC) [Entitic vol] Ordered By: Naima Boyd on 01-09-2024 MCV (RBC) [Entitic vol] 95.1 fL 83.5-101 [facility] Monocyte distribution width [Entitic volume] in Blood by AutomatedOrdered By: Naima Boyd on 01-09-2024 Monocyte distribution width Auto (Bld) [Entitic vol] 25.58 % 0.00-20.00 [facility] Comment on above: For adults in ED, MD W > 20.0 may be associated with a higher risk of sepsis during the first 12 hrs of hospital admission Monocytes Auto (Bld) [#/Vol] Ordered By: Naima Rutherfordore on 01-09-2024 Monocytes (Bld) [#/Vol] N/A [facility] Monocytes/100 WBC Auto (Bld) Ordered By: Naima Bullimore on 01-09-2024 Monocytes/100 WBC (Bld) N/A [facility] Monocytes/100 WBC Manual cnt (Bld)Ordered By: Naima Bullimore on 01-09-2024 Monocytes/100 WBC (Bld) 7 % 2-11 [facility] Natriuretic peptide B [Mass/ Vol]Ordered By: Naima Bullimore on 01-09-2024 Natriuretic peptide B (Bld) [Mass/Vol] 172.0 pg/mL 5-100 [facility] Neutrophils Auto (Bld) [#/Vo l]Ordered By: Naima Bullimore on 01-09-2024 Neutrophils (Bld) [#/Vol] N/A [facility] Neutrophils/100 WBC Auto (Bl d)Ordered By: Naima Bullimore on 01-09-2024 Neutrophils/100 WBC (Bld) N/A [facility] No Panel InformationOrdered By: Naimadevora Godwinimore on 01-09-2024 Estimated GFR (CKD-EPI) > 60.0 mL/Min [facility] Creatinine Clearance (Chem 64.96 [facility] Platelet Comment See comment below F [facility] Comment on above: NO CLOTS, NO CLUMPS, SHORT DRAW LFM Nucleated RBC/100 WBC Manual cnt (Bld) [Ratio]Ordered By: Naima Bullimore on 01-09-2024 Nucleated RBC/100 WBC (Bld) [Ratio] 0 /100{WBC} 0-0 [facility] Nucleated erythrocytes [Pres ence] in Blood by Automated countOrdered By: Naimadevora Godwinimore on 01-09-2024 Nucleated RBC Auto Ql (Bld) N/A [facility] Platelet adequacy [Presence] in Blood by Light microscopyOrdered By: Naimadevora Godwinimore on 01-09-2024 Platelets LM Ql (Bld) Normal Normal Fir [facility] Platelet mean volume Auto (B ld) [Entitic vol]Ordered By: Naima Bullimore on 01-09-2024 Platelet mean volume (Bld) [Entitic vol] 8.6 fL 6.6-10.1 [facility] Platelet morphology finding [Identifier] in BloodOrdered By: Naima Boyd on 01-09-2024 Platelet morphology finding Nom (Bld) Normal Normal [facility] Platelets Auto (Bld) [#/Vol] Ordered By: Naima Bullimore on 01-09-2024 Platelets (Bld) [#/Vol] 240 10*3/uL 150-450 [facility] Potassium [Moles/volume] in Serum or PlasmaOrdered By: Naima Bullimore on 01-09-2024 Potassium [Moles/Vol] 3.9 mmol/L 3.5-5.1 [facility] Prothrombin time (PT)Ordered By: Naima Boyd on 01-09-2024 PT Coag (PPP) [Time] 11.9 s 9.0-12.9 [facility] Comment on above: A hematocrit value g reater than 55% may lead to inaccurate results in coagulation testing. Patients having hematocrit values >55% require a special collection tube for coagulation studies. Please contact the laboratory at [phone] for redraw instructions. RBC Auto (Bld) [#/Vol]Ordere d By: Naima Rutherfordore on 01-09-2024 RBC (Bld) [#/Vol] 4.41 10*6/uL 3.90-5.60 [facility] RBC morphologyOrdered By: Sabine Boyd on 01-09-2024 RBC morphology finding Nom (Bld) Normal Normal [facility] Redraw Potassiumon Potassium [Moles/Vol] 3.9 mmol/L Normal 3.5-5.1 [facility] Comment on above: Result Comment: PERF ORMED BY: [facility] [address] [place] [address] PATHOLOGIST CONTINUOUS IMPROVEMENT SPECIALIST RADHA BARRON M.D. Performed By: #### R TONY Marcano ####[facility] [id number] [place] [address] [facility] Segmented neutrophils/100 WB C Manual cnt (Bld)Ordered By: Naima Boyd on 01-09-2024 Segmented neutrophils/100 WBC (Bld) 62 % 50-70 [facility] Serum or plasma anion gap de terminationOrdered By: Naima Boyd on 01-09-2024 Anion gap [Moles/Vol] TNP Fir [facility] Comment on above: Test not performed Sodium [Moles/volume] in Ser um or PlasmaOrdered By: Naima Boyd on 01-09-2024 Sodium [Moles/Vol] 142 mmol/L 136-145 [facility] Troponin I High Sensitivityo n 01-09-2024 Troponin I High Sensitivity 13.1 pg/mL Normal 0.0-20.0 [facility] Comment on above: Result Comment: PERF ORMED BY: [place] [address] PATHOLOGIST CONTINUOUS IMPROVEMENT SPECIALIST RADHA BARRON M.D. Performed By: #### H S TROP #### [facility] [address] [place] [address] Troponin I High Sensitivity 12.5 pg/mL Normal 0.0-20.0 [facility] Comment on above: Result Comment: PERF ORMED BY: [facility] [address] [place] [address] PATHOLOGIST CONTINUOUS IMPROVEMENT SPECIALIST RADHA BARRON M.D. Performed By: #### B BEATER ROOM HELPER, HS TROP, BMP, CK, DIFF CBC ####[facility] [id number] Troponin I.cardiac [Mass/vol ume] in Serum or Plasma by Detection limit <= 0.01 ng/Ordered By: Naima Boyd on 01-09-2024 Troponin I.cardiac DL <= 0.01 ng/mL [Mass/Vol] 13.1 pg/mL 0.0-20.0 [facility] Urea nitrogen [Mass/volume] in Serum or PlasmaOrdered By: Naima Boyd on 01-09-2024 Urea nitrogen [Mass/Vol] 20 mg/dL 7- [facility] WBC Auto (Bld) [#/Vol]Ordere d By: Naima Boyd on 01-09-2024 WBC (Bld) [#/Vol] 8.4 10*3/uL 4.1-10.5 [facility] XR chest 2V*on 01-09-2024 XR chest 2V* [facility] [address] [address] XRay Report Signed Patient: Jeb Riddle MR#: [id number] : 1950 Acct:[id number] Age/Sex: 73 / M ADM Date: 01/09/24 Loc: ER Room: Type: [facility] ER Attending Dr: Copies to: SABA [...] Jeb Collins M.D.01/09/2024 4:11 PM Dictation Location: [place] [address] Transcribed By: [facility] 01/09/24 1611 Dictated By: Jeb Collins II, MD 01/09/24 1610 Signed By: 01/09/24 1611 Normal [facility] ECG 12 lead ECGon 12-18-2023 ECG 12 lead ECG [facility] Main [address] [address] Electrocardiograph Report Signed Patient: Jeb Riddle MR#: [id number] : 1950 Acct:[id number] Age/Sex: 73 / M ADM Date: 12/18/23 Loc: ER Room: Type: [facility] ER Attending Dr: Ordering Provider: Mraie Garrison APRN Date of Service: 12/18/2301/05/1305 ECG/ECG [...] was found Confirmed by RAMIRO CORTEZ DO ([id number]) on 12/18/2023 4:44:01 PM Referred By: Electronically Signed By:RAMIRO CORTEZ DO Transcribed By: MUS Signed By Ramiro Cortez DO 12/17 1644 Normal [facility] Office Visiton 12-09-2023 Follow-up visit [id number] Jeb Riddle 1950 M Date Provider Department Center 12/09/2023 JESSICA JAMISON Family History Problem Relation Age of Onset Diabetes Mother Coronary artery disease Mother Heart attack Father Diabetes Father Coronary artery disease Father Family Status - Relation Status Age at Mother Father Level of Service:61081 DC OFFICE/OUTPATIENT ESTABLISHED MOD MDM 30 MIN Reason for Visit and Comments: Follow-up [796117] - 6 months Normal [facility] Office Visiton 06-07-2023 Follow-up visit [id number] Jeb Riddle 1950 M Date Provider Department Center 06/07/2023 SHIV SAAVEDRA Family History Problem Relation Age of Onset Diabetes Mother Coronary artery disease Mother Heart attack Father Diabetes Father Coronary artery disease Father Family Status - Relation Status Age at Mother Father Level of Service:19225 DC OFFICE/OUTPATIENT NEW HIGH MDM 60-74 MINUTES Normal [facility] Office Visiton 05-27-2023 Follow-up visit [id number] Jeb Riddle 1950 M Date Provider Department Center 05/27/2023 JESSICA JAMISON Family History Problem Relation Age of Onset Diabetes Mother Coronary artery disease Mother Heart attack Father Diabetes Father Coronary artery disease Father Family Status - Relation Status Age at Mother Father Level of Service:00783 DC OFFICE/OUTPATIENT ESTABLISHED MOD MDM 30-39 MIN Reason for Visit and Comments: Follow-up [735999] Coronary Artery Disease [187] Normal [facility] Activated partial thrombopla stin time (aPTT) in platelet poor plasma by coagulation aOrdered By: Ramiro Cortez on 03-03-2023 aPTT Coag (PPP) [Time] 29.7 s 25.1-36.5 [facility] B-Type Natriuretic Peptideon 03-03-2023 Natriuretic peptide B (Bld) [Mass/Vol] 52.0 pg/mL Normal 5-100 [facility] Comment on above: Result Comment: PERF ORMED BY: [facility] [address] [facility] [place] [id number] PATHOLOGIST CONTINUOUS IMPROVEMENT SPECIALIST RADHA BARRON M.D. Performed By: #### C BC, CK, PT, PTT, BMP, HS TROP, BNP ####[address] Basic Metabolic Panelon 02-13 Anion gap [Moles/Vol] 10.6 mmol/L Normal 6.0-15.0 [facility] Comment on above: Performed By: #### C BC, CK, PT, PTT, BMP, HS TROP, BNP ####[address] Calcium [Mass/Vol] 8.6 mg/dL Normal 8.6-10.3 [facility] Comment on above: Performed By: #### C BC, CK, PT, PTT, BMP, HS TROP, BNP ####[place] [id number] [facility] Chloride [Moles/Vol] 108 mmol/L High 98-107 [facility] Comment on above: Performed By: #### C BC, CK, PT, PTT, BMP, HS TROP, BNP ####[place] [id number] [facility] CO2 [Moles/Vol] 24.6 mmol/L Normal 21.0-31.0 [facility] Comment on above: Performed By: #### C BC, CK, PT, PTT, BMP, HS TROP, BNP ####[place] [id number] [facility] Creatinine [Mass/Vol] 1.19 mg/dL Normal 0.70-1.30 [facility] Comment on above: Performed By: #### C BC, CK, PT, PTT, BMP, HS TROP, BNP ####[address] Creatinine Clr Calc Pharmacy 55.29 Normal [facility] Comment on above: Result Comment: PERF ORMED BY: [facility] [address] [place] [address] PATHOLOGIST CONTINUOUS IMPROVEMENT SPECIALIST RADHA BARRON M.D. Performed By: #### C BC, CK, PT, PTT, BMP, HS TROP, BNP ####[address] GFR/1.73 sq M.predicted MDRD (S/P/Bld) [Vol rate/Area] mL/min/{1.73_m2} Normal [facility] Comment on above: Performed By: #### C BC, CK, PT, PTT, BMP, HS TROP, BNP ####[address] Glucose [Mass/Vol] 93 mg/dL Normal 70-100 [facility] Comment on above: Result Comment: [facility] Glucose Reference Range is dependent on time and content of last meal. Glucose of more than 200 mg/dL in a nonstressed, ambulatory subject supports the diagnosis of Diabetes Mellitus. ADA recommended reference range Performed By: #### C BC, CK, PT, PTT, BMP, HS TROP, BNP ####[address] Potassium [Moles/Vol] 4.2 mmol/L Normal 3.5-5.1 [facility] Comment on above: Performed By: #### C BC, CK, PT, PTT, BMP, HS TROP, BNP ####[address] Sodium [Moles/Vol] 139 mmol/L Normal 136-145 [facility] Comment on above: Performed By: #### C BC, CK, PT, PTT, BMP, HS TROP, BNP ####[address] Urea nitrogen [Mass/Vol] 17 mg/dL Normal 7-25 [facility] Comment on above: Performed By: #### C BC, CK, PT, PTT, BMP, HS TROP, BNP ####[facility] Basophils Auto (Bld) [#/Vol] Ordered By: Ramiro Cortez on 03-03-2023 Basophils (Bld) [#/Vol] 0.0 10*3/uL 0.0-0.2 [facility] Basophils/100 WBC Auto (Bld) Ordered By: Ramiro Cortez on 03-03-2023 Basophils/100 WBC (Bld) 0.4 % . [facility] Calcium [Mass/volume] in Ser um or PlasmaOrdered By: Ramiro Cortez on 03-03-2023 Calcium [Mass/Vol] 8.6 mg/dL 8.6-10.3 [facility] Carbon dioxide, total [Moles /volume] in Serum or PlasmaOrdered By: Ramiro Cortez on 03-03-2023 CO2 [Moles/Vol] 24.6 mmol/L 21.0-31.0 [facility] Chloride [Moles/volume] in S pooja or PlasmaOrdered By: Ramiro Cortez on 03-03-2023 Chloride [Moles/Vol] 108 mmol/L 98-107 [facility] Complete Blood Count Auto Di ffon 03-03-2023 Basophils (Bld) [#/Vol] 0.0 10*3/uL Normal 0.0-0.2 [facility] Comment on above: Result Comment: PERF ORMED BY: [facility] [address] [place] [address] PATHOLOGIST CONTINUOUS IMPROVEMENT SPECIALIST RADHA BARRON M.D. Performed By: #### C BC, CK, PT, PTT, BMP, HS TROP, BNP #### [facility] [address] Basophils/100 WBC (Bld) 0.4 % Normal . [facility] Comment on above: Performed By: #### C BC, CK, PT, PTT, BMP, HS TROP, BNP #### [address] Eosinophils (Bld) [#/Vol] 0.2 10*3/uL Normal 0.0-0.45 [facility] Comment on above: Performed By: #### C BC, CK, PT, PTT, BMP, HS TROP, BNP #### [address] Eosinophils/100 WBC (Bld) 2.4 % Normal . [facility] Comment on above: Performed By: #### C BC, CK, PT, PTT, BMP, HS TROP, BNP #### [address] Erythrocyte distribution width (RBC) [Ratio] 13.0 % Normal 12.0-14.8 [facility] Comment on above: Performed By: #### C BC, CK, PT, PTT, BMP, HS TROP, BNP #### [address] Hematocrit (Bld) [Volume fraction] 38.3 % Low 38.8-50.0 [facility] Comment on above: Performed By: #### C BC, CK, PT, PTT, BMP, HS TROP, BNP #### [address] Hemoglobin (Bld) [Mass/Vol] 12.9 g/dL Low 13.0-17.0 [facility] Comment on above: Performed By: #### C BC, CK, PT, PTT, BMP, HS TROP, BNP #### [address] Lymphocytes (Bld) [#/Vol] 2.6 10*3/uL Normal 1.00-4.8 [facility] Comment on above: Performed By: #### C BC, CK, PT, PTT, BMP, HS TROP, BNP #### [address] Lymphocytes/100 WBC (Bld) 28.3 % Normal . [facility] Comment on above: Performed By: #### C BC, CK, PT, PTT, BMP, HS TROP, BNP #### [address] MCH (RBC) [Entitic mass] 30.8 pg Normal 27.5-35.2 [facility] Comment on above: Performed By: #### C BC, CK, PT, PTT, BMP, HS TROP, BNP #### [address] MCV (RBC) [Entitic vol] 91.9 fL Normal 83.5-101 [facility] Comment on above: Performed By: #### C BC, CK, PT, PTT, BMP, HS TROP, BNP #### [address] Mean Corpuscular HGB Conc 33.6 g/dL Normal 32.5-35.6 [facility] Comment on above: Performed By: #### C BC, CK, PT, PTT, BMP, HS TROP, BNP #### [address] Monocytes (Bld) [#/Vol] 0.6 10*3/uL Normal 0.0-0.8 [facility] Comment on above: Performed By: #### C BC, CK, PT, PTT, BMP, HS TROP, BNP #### [address] Monocytes/100 WBC (Bld) 24.67 % High 0.00-20.00 [facility] Comment on above: Result Comment: For adults in ED, MDW > 20.0 may be associated with a higher risk of sepsis during the first 12 hrs of hospital admission Performed By: #### C BC, CK, PT, PTT, BMP, HS TROP, BNP #### [address] Monocytes/100 WBC (Bld) 6.5 % Normal . [facility] Comment on above: Performed By: #### C BC, CK, PT, PTT, BMP, HS TROP, BNP #### [address] Neutrophils (Bld) [#/Vol] 5.7 10*3/uL Normal 1.8-7.7 [facility] Comment on above: Performed By: #### C BC, CK, PT, PTT, BMP, HS TROP, BNP #### [address] Neutrophils/100 WBC (Bld) 62.4 % Normal . [facility] Comment on above: Performed By: #### C BC, CK, PT, PTT, BMP, HS TROP, BNP #### [address] NRBC% 0.1 /100{WBC} Normal 0-0.5 [facility] Comment on above: Performed By: #### C BC, CK, PT, PTT, BMP, HS TROP, BNP #### [address] Platelet mean volume (Bld) [Entitic vol] 8.2 fL Normal 6.6-10.1 [facility] Comment on above: Performed By: #### C BC, CK, PT, PTT, BMP, HS TROP, BNP #### [address] Platelets (Bld) [#/Vol] 234 10*3/uL Normal 150-450 [facility] Comment on above: Performed By: #### C BC, CK, PT, PTT, BMP, HS TROP, BNP #### [address] RBC (Bld) [#/Vol] 4.17 10*6/uL Normal 3.90-5.60 [facility] Comment on above: Performed By: #### C BC, CK, PT, PTT, BMP, HS TROP, BNP #### [address] WBC (Bld) [#/Vol] 9.2 10*3/uL Normal 4.1-10.5 [facility] Comment on above: Performed By: #### C BC, CK, PT, PTT, BMP, HS TROP, BNP #### [address] [place] [address] [facility] Creatine Kinaseon 03-03-2023 CK [Catalytic activity/Vol] 125 U/L Normal [facility] Comment on above: Performed By: #### C BC, CK, PT, PTT, BMP, HS TROP, BNP ####[facility] [address] [place] [id number] [facility] Creatine kinase [Enzymatic a ctivity/volume] in Serum or PlasmaOrdered By: Ramiro Cortez on 03-03-2023 CK [Catalytic activity/Vol] 125 U/L [facility] Creatinine [Mass/volume] in Serum or PlasmaOrdered By: Ramiro Cortez on 03-03-2023 Creatinine [Mass/Vol] 1.19 mg/dL 0.70-1.30 [facility] ECG 12 lead ECGon 03-03-2023 ECG 12 lead ECG [facility] Main [place] [address] [place] [address] Electrocardiograph Report Signed Patient: Jeb Riddle MR#: [id number] : 1950 Acct:[id number] Age/Sex: 72 / M ADM Date: 03/03/23 Loc: ER Room: Type: [facility] ER Attending Dr: Ordering Provider: [...] ECGs available Confirmed by RAMIRO CORTEZ DO ([id number]) on 03/03/2023 8:14:27 PM Referred By: Electronically Signed By:RAMIRO CORTEZ DO Transcribed By: MUS Signed By Ramiro Cortez DO 03/03 Normal [facility] Eosinophils Auto (Bld) [#/Vo l]Ordered By: Ramiro Cortez on 03-03-2023 Eosinophils (Bld) [#/Vol] 0.2 10*3/uL 0.0-0.45 [facility] Eosinophils/100 WBC Auto (Bl d)Ordered By: Ramiro Cortez on 03-03-2023 Eosinophils/100 WBC (Bld) 2.4 % . [facility] Erythrocyte distribution wid th Auto (RBC) [Ratio]Ordered By: Ramiro Cortez on 03-03-2023 Erythrocyte distribution width (RBC) [Ratio] 13.0 % 12.0-14.8 [facility] Glucose [Mass/volume] in Ser um or PlasmaOrdered By: Ramiro Cortez on 03-03-2023 Glucose [Mass/Vol] 93 mg/dL 70-100 [facility] Comment on above: ADA recommended refe rence rangeRandom Glucose Reference Range is dependent on time and content of last meal. Glucose of more than 200 mg/dL in a nonstressed, ambulatory subject supports the diagnosis of Diabetes Mellitus. Hematocrit Auto (Bld) [Volum e fraction]Ordered By: Ramiro Cortez on 03-03-2023 Hematocrit (Bld) [Volume fraction] 38.3 % 38.8-50.0 [facility] Hemoglobin [Mass/volume] in BloodOrdered By: Ramiro Cortez on 03-03-2023 Hemoglobin (Bld) [Mass/Vol] 12.9 g/dL 13.0-17.0 [facility] Laboratory - CoagulationOrde red By: Ramiro Cortez on 03-03-2023 PT Coag (PPP) [Time] 12.3 s 9.0-12.9 [facility] Leukocytes [#/volume] correc ava for nucleated erythrocytes in Blood by Automated counOrdered By: Ramiro Cortez on 03-03-2023 WBC corrected for nucl RBC Auto (Bld) [#/Vol] 9.2 10*3/uL 4.1-10.5 [facility] Lymphocytes Auto (Bld) [#/Vo l]Ordered By: Ramiro Cortez on 03-03-2023 Lymphocytes (Bld) [#/Vol] 2.6 10*3/uL 1.00-4.8 [facility] Lymphocytes/100 WBC Auto (Bl d)Ordered By: Ramiro Cortez on 03-03-2023 Lymphocytes/100 WBC (Bld) 28.3 % . [facility] MCH Auto (RBC) [Entitic mass ]Ordered By: Ramiro Cortez on 03-03-2023 MCH (RBC) [Entitic mass] 30.8 pg 27.5-35.2 [facility] MCHC Auto (RBC) [Mass/Vol]Or dered By: Ramiro Cortez on 03-03-2023 MCHC (RBC) [Mass/Vol] 33.6 g/dL 32.5-35.6 [facility] MCV Auto (RBC) [Entitic vol] Ordered By: Ramiro Cortez on 03-03-2023 MCV (RBC) [Entitic vol] 91.9 fL 83.5-101 [facility] Monocyte distribution width [Entitic volume] in Blood by AutomatedOrdered By: Ramiro Cortez on 03-03-2023 Monocyte distribution width Auto (Bld) [Entitic vol] 24.67 % 0.00-20.00 [facility] Comment on above: For adults in ED, MD W > 20.0 may be associated with a higher risk of sepsis during the first 12 hrs of hospital admission Monocytes Auto (Bld) [#/Vol] Ordered By: Ramiro Cortez on 03-03-2023 Monocytes (Bld) [#/Vol] 0.6 10*3/uL 0.0-0.8 [facility] Monocytes/100 WBC Auto (Bld) Ordered By: Ramiro Cortez on 03-03-2023 Monocytes/100 WBC (Bld) 6.5 % . [facility] Natriuretic peptide B [Mass/ Vol]Ordered By: Ramiro Cortez on 03-03-2023 Natriuretic peptide B (Bld) [Mass/Vol] 52.0 pg/mL 5-100 [facility] Neutrophils Auto (Bld) [#/Vo l]Ordered By: Ramiro Cortez on 03-03-2023 Neutrophils (Bld) [#/Vol] 5.7 10*3/uL 1.8-7.7 [facility] Neutrophils/100 WBC Auto (Bl d)Ordered By: Ramiro Cortez on 03-03-2023 Neutrophils/100 WBC (Bld) 62.4 % . [facility] No Panel InformationOrdered By: Ramiro Cortez on 03-03-2023 Estimated GFR (CKD-EPI) > 60.0 mL/Min [facility] Creatinine Clearance (Chem 55.29 [facility] Nucleated erythrocytes [Pres ence] in Blood by Automated countOrdered By: Ramiro Cortez on 03-03-2023 Nucleated RBC Auto Ql (Bld) 0.1 /100{WBC} 0-0.5 [facility] Partial Thromboplastin Timeo n 03-03-2023 aPTT Coag (Bld) [Time] 29.7 s Normal 25.1-36.5 [facility] Comment on above: Result Comment: PERF ORMED BY: [facility] [address] [place] [address] PATHOLOGIST CONTINUOUS IMPROVEMENT SPECIALIST RADHA BARRON M.D. Performed By: #### C BC, CK, PT, PTT, BMP, HS TROP, BNP #### [facility] [address] Platelet mean volume Auto (B ld) [Entitic vol]Ordered By: Ramiro Cortez on 03-03-2023 Platelet mean volume (Bld) [Entitic vol] 8.2 fL 6.6-10.1 [facility] Platelet poor plasma interna tional normalized ratio (INR) by coagulation assay (relatOrdered By: Ramiro Cortez on 03-03-2023 INR Coag (PPP) [Relative time] 1.1 {INR} [facility] Comment on above: INR Therapeutic Rang e [...] 03-03-2023 Platelets (Bld) [#/Vol] 234 10*3/uL 150-450 [facility] Potassium [Moles/volume] in Serum or PlasmaOrdered By: Ramiro Cortez on 03-03-2023 Potassium [Moles/Vol] 4.2 mmol/L 3.5-5.1 [facility] Prothrombin Time INRon 03-03 INR Coag (PPP) [Relative time] 1.1 {INR} Normal [facility] Comment on above: Result Comment: [...] PT, PTT, BMP, HS TROP, BNP #### [facility] [address] PT Coag (PPP) [Time] 12.3 s Normal 9.0-12.9 [facility] Comment on above: Performed By: #### C BC, CK, PT, PTT, BMP, HS TROP, BNP #### [facility] [address] RBC Auto (Bld) [#/Vol]Ordere d By: Ramiro Cortez on 03-03-2023 RBC (Bld) [#/Vol] 4.17 10*6/uL 3.90-5.60 [facility] Serum or plasma anion gap de terminationOrdered By: Ramiro Cortez on 03-03-2023 Anion gap [Moles/Vol] 10.6 mmol/L 6.0-15.0 [facility] Sodium [Moles/volume] in Ser um or PlasmaOrdered By: Ramiro Cortez on 03-03-2023 Sodium [Moles/Vol] 139 mmol/L 136-145 [facility] Troponin I High Sensitivityo n 03-03-2023 Troponin I High Sensitivity 7.6 pg/mL Normal 0.0-20.0 [facility] Comment on above: Result Comment: PERF ORMED BY: [place] [address] PATHOLOGIST CONTINUOUS IMPROVEMENT SPECIALIST RADHA BARRON M.D. Performed By: #### C BC, CK, PT, PTT, BMP, HS TROP, BNP ####[facility] [place] [id number] [facility] Troponin I.cardiac [Mass/vol ume] in Serum or Plasma by Detection limit <= 0.01 ng/Ordered By: Ramiro Cortez on 03-03-2023 Troponin I.cardiac DL <= 0.01 ng/mL [Mass/Vol] 7.6 pg/mL 0.0-20.0 [facility] Urea nitrogen [Mass/volume] in Serum or PlasmaOrdered By: Ramiro Cortez on 03-03-2023 Urea nitrogen [Mass/Vol] 17 mg/dL 03-08 [facility] WBC Auto (Bld) [#/Vol]Ordere d By: Ramiro Cortez on 03-03-2023 WBC (Bld) [#/Vol] 9.2 10*3/uL 4.1-10.5 [facility] XR chest 2V*on 03-03-2023 XR chest 2V* [facility] Main [place] [address] [place] [address] XRay Report Signed Patient: Jeb Riddle MR#: [id number] : 1950 Acct:[id number] Age/Sex: 72 / M ADM Date: 03/03/23 Loc: ER Room: Type: [facility] ER Attending Dr: Copies to: Ramiro [...] Ivonne Zavala M.D.03/03/2023 12:46 PM Dictation Location: [place] [address] Transcribed By: KAROLINA 03/03/23 1246 Dictated By: Ivonne Zavala MD 03/03/23 1245 Signed By: 03/03/23 1246 Normal [facility] CBC AUTO DIFFon 01-11-2023 BASO # 0.0 103/ul Normal 0.0-0.1 [facility] Comment on above: Performed By: #### C BC #### [facility] [address] [address] [address] Andrea Garcia Basophils/100 WBC (Bld) 0.0 % Critically low 0.2-2.0 [facility] Comment on above: Performed By: #### C BC #### [facility] [address] [place] [address] [address] Andrea Garcia EO # 0.0 103/ul Normal 0.0-0.7 [facility] Comment on above: Performed By: #### C BC #### [facility] [address] [place] [address] Dr. Andrea Garcia Eosinophils/100 WBC (Bld) 0.0 % Critically low 0.9-7.0 [facility] Comment on above: Performed By: #### C BC #### [facility] [address] [place] [address] Dr. Andrea Garcia Erythrocyte distribution width (RBC) [Ratio] 12.8 % Normal 11.0-15.0 [facility] Comment on above: Performed By: #### C BC #### [facility] [address] [place] [address] Dr. Andrea Garcia Hematocrit (Bld) [Volume fraction] 36.2 % Critically low 42.0-54.0 [facility] Comment on above: Performed By: #### C BC #### [facility] [address] [place] [address] Dr. Andrea Garcia Hemoglobin (Bld) [Mass/Vol] 12.8 g/dL Critically low 14.0-18.0 [facility] Comment on above: Performed By: #### C BC #### [facility] [address] [place] [address] Dr. Andrea Garcia IG # 0.03 10e3/ul Normal 0.00-0.03 [facility] Comment on above: Performed By: #### C BC #### [facility] [address] [place] [address] Dr. Andrea Garcia IG % 0.4 % Normal 0.0-0.5 [facility] Comment on above: Performed By: #### C BC #### [facility] [address] [place] [address] Dr. Andrea Garcia LYMPH # 1.1 103/ul Critically low 1.2-3.[address] [facility] Comment on above: Performed By: #### C BC #### [facility] [address] [place] [address] Dr. Andrea Garcia Lymphocytes/100 WBC (Bld) 15.3 % Critically low 20.5-60.[address] [facility] Comment on above: Performed By: #### C BC #### [facility] [address] [place] [address] Dr. Andrea Garcia MANUAL DIFF REQ NO Normal [facility] Comment on above: Performed By: #### C BC #### [facility] [address] [place] [address] Dr. Andrea Garcia MCH (RBC) [Entitic mass] 31.3 pg Normal 25.9-34.0 [facility] Comment on above: Performed By: #### C BC #### [facility] [address] [place] [address] Dr. Andrea Garcia MCHC (RBC) [Mass/Vol] 35.4 g/dL Critically high 29.9-35.[address] [facility] Comment on above: Performed By: #### C BC #### [facility] [address] [place] [address] Dr. Andrea Garcia MCV (RBC) [Entitic vol] 88.5 fL Normal 80.0-94.[address] [facility] Comment on above: Performed By: #### C BC #### [facility] [address] [place] [address] Dr. Andrea Garcia MONO # 0.1 103/ul Critically low 0.3-0.[address] [facility] Comment on above: Performed By: #### C BC #### [facility] [address] [place] [address] Dr. Andrea Garcia Monocytes/100 WBC (Bld) 0.7 % Critically low 1.7-12.0 [facility] Comment on above: Performed By: #### C BC #### [facility] [address] [place] [address] Dr. Andrea Garcia NEUT # 6.0 103/ul Normal 1.4-6.5 [facility] Comment on above: Performed By: #### C BC #### [facility] [address] [place] [address] Dr. Andrea Garcia Neutrophils/100 WBC (Bld) 83.6 % Critically high 43.0-75.0 [facility] Comment on above: Performed By: #### C BC #### [facility] [address] [place] [address] Dr. Andrea Garcia Platelet mean volume (Bld) [Entitic vol] 10.1 fL Normal 9.5-13.5 [facility] Comment on above: Performed By: #### C BC #### [facility] [facility] [address] [place] [address] Dr. Andrea Garcia PLT 216 103/ul Normal 150-450 [facility] Comment on above: Performed By: #### C BC #### [facility] [address] [place] [address] Dr. Andrea Garcia RBC 4.09 106/ul Critically low 4.70-6.10 [facility] Comment on above: Performed By: #### C BC #### [facility] [address] [place] [address] Dr. Andrea Garcia WBC 7.2 103/ul Normal 4.0-11.0 [facility] Comment on above: Performed By: #### C BC #### [facility] [address] [place] [address] Dr. Andrea Garcia PROF 14(COMP METB)on 023 Albumin [Mass/Vol] 2.8 g/dL Critically low 3.4-5.0 [facility] Comment on above: Performed By: #### C MP #### [facility] [address] [place] [address] Dr. Andrea Garcia Albumin/Globulin [Mass ratio] 0.8 {ratio} Normal [facility] Comment on above: Performed By: #### C MP #### [facility] [address] [place] [address] Dr. Andrea Garcia ALP [Catalytic activity/Vol] 64 U/L Normal 46-116 [facility] Comment on above: Performed By: #### C MP #### [facility] [address] [place] [address] Dr. Andrea Garcia ALT [Catalytic activity/Vol] 27 U/L Normal 16-63 [facility] Comment on above: Performed By: #### C MP #### [facility] [address] [place] [address] Dr. Andrea Garcia Anion gap [Moles/Vol] 12.9 mmol/L Normal [facility] Comment on above: Performed By: #### C MP #### [facility] [address] [place] [address] Dr. Andrea Garcia AST [Catalytic activity/Vol] 16 U/L Normal 15-37 [facility] Comment on above: Performed By: #### C MP #### [facility] [address] [place] [address] Dr. Andrea Garcia Bilirubin [Mass/Vol] 0.4 mg/dL Normal 0.2-1.0 [facility] Comment on above: Performed By: #### C MP #### [facility] [address] [place] [address] Dr. Andrea Garcia Calcium [Mass/Vol] 8.2 mg/dL Critically low 8.5-10.1 [facility] Comment on above: Performed By: #### C MP #### [facility] [address] [place] [address] Dr. Andrea Garcia Chloride [Moles/Vol] 107 mmol/L Normal 98-107 [facility] Comment on above: Performed By: #### C MP #### [facility] [address] [place] [address] Dr. Andrea Garcia CO2 [Moles/Vol] 24.2 mmol/L Normal 21.0-32.0 [facility] Comment on above: Performed By: #### C MP #### [facility] [address] [place] [address] Dr. Andrea Garcia Creatinine [Mass/Vol] 1.07 mg/dL Normal 0.70-1.30 [facility] Comment on above: Performed By: #### C MP #### [facility] [address] [address] [address] Andrea Garcia EGFR-AF BRUNEIAN >60 Normal >=60 [facility] Comment on above: Performed By: #### C MP #### [facility] [address] [place] [address] Dr. Andrea Garcia EGFR-NON AF BRUNEIAN >60 Normal >=60 [facility] Comment on above: Performed By: #### C MP #### [facility] [address] [place] [address] Dr. Andrea Garcia Globulin (S) [Mass/Vol] 3.5 g/dL Normal [facility] Comment on above: Performed By: #### C MP #### [facility] [address] [place] [address] Dr. Andrea Garcia Glucose [Mass/Vol] 164 mg/dL Critically high 74-106 [facility] Comment on above: Performed By: #### C MP #### [facility] [address] [place] [address] Dr. Andrea Garcia Potassium [Moles/Vol] 4.1 mmol/L Normal 3.5-5.1 [facility] Comment on above: Performed By: #### C MP #### [facility] [address] [place] [address] Dr. Andrea Garcia Protein [Mass/Vol] 6.3 g/dL Critically low 6.4-8.[address] [facility] Comment on above: Performed By: #### C MP #### [facility] [address] [place] [address] Dr. Andrea Garcia Sodium [Moles/Vol] 140 mmol/L Normal 136-145 [facility] Comment on above: Performed By: #### C MP #### [facility] [address] [place], [place] [address] Dr. Andrea Garcia Urea nitrogen [Mass/Vol] 16.0 mg/dL Normal 7.0-18.0 [facility] Comment on above: Performed By: #### C MP #### [facility] [address] [address] [address] Andrea Garcia Urea nitrogen/Creatinine [Mass ratio] 15.0 mg/mg Normal [facility] Comment on above: Performed By: #### C MP #### [facility] [address] [address] [address] Andrea Garcia XR KUB 1 VIEWon [...] 2023-01-11 06:56 Normal [address] [facility] AMYLASEon 01-10-2023 Amylase [Catalytic activity/Vol] 56 U/L Normal 25-[address] [facility] Comment on above: Performed By: #### C MADM, CMP, DAMIEN, LIPA ####[facility] [address] [place], [place] [address]Dr. Andrea Garcia CARDIAC JEB 3-6on 3 CK [Catalytic activity/Vol] 92 U/L Normal 39-[address] [facility] Comment on above: Performed By: #### C MREP #### [facility] [address] [address] [address] Andrea Garcia CK.MB [Mass/Vol] 1.66 ng/mL Normal <=3.[address] [facility] Comment on above: Performed By: #### C MREP #### [facility] [address] [address] [address] Andrea Garcia HSTROP 12.8 pg/mL Normal 4.0-76.1 [facility] Comment on above: Result Comment: CUT- OFF POINTS HAVE BEEN ESTABLISHED BASED ON THE FOURTH UNIVERSAL DEFINITIONS OF MYOCARDIAL INFARCTION. THE UPPER REFERENCE LIMIT (URL) OF TROPONIN, DEFINED THE 99TH PERCENTILE OF cTnI DISTRIBUTION IN A REFERENCE POPULATION, HAS BEEN CONFIRMED THE DECISION THRESHOLD FOR [place] DIAGNOSIS. Performed By: #### C MREP #### [facility] [address] [address] [address] Andrea Garcia CK [Catalytic activity/Vol] 72 U/L Normal 39-308 [facility] Comment on above: Performed By: #### C MREP #### [facility] [address] [address] [address] Andrea RUBALCAVA.MB [Mass/Vol] 1.89 ng/mL Normal <=3.60 [facility] Comment on above: Performed By: #### C MREP #### [facility] [address] [address] [address] Andrea Garcia HSTROP 13.5 pg/mL Normal 4.0-76.1 [facility] Comment on above: Result Comment: CUT- OFF POINTS HAVE BEEN ESTABLISHED BASED ON THE FOURTH UNIVERSAL DEFINITIONS OF MYOCARDIAL INFARCTION. THE UPPER REFERENCE LIMIT (URL) OF TROPONIN, DEFINED THE 99TH PERCENTILE OF cTnI DISTRIBUTION IN A REFERENCE POPULATION, HAS BEEN CONFIRMED THE DECISION THRESHOLD FOR [place] DIAGNOSIS. Performed By: #### C MREP #### [facility] [address] [address] [address] Andrea Garcia CARDIAC JEB ADMITon 023 CK [Catalytic activity/Vol] 85 U/L Normal 39-308 [facility] Comment on above: Performed By: #### C MADM, CMP, DAMIEN, LIPA ####[facility] [address] [id number]. Andrea Garcia CK.MB [Mass/Vol] 1.80 ng/mL Normal <=3.[address] [facility] Comment on above: Performed By: #### C MADM, CMP, DAMIEN, LIPA ####[facility] [address] [id number]. Andrea Garcia HSTROP 15.7 pg/mL Normal 4.0-76.[address] [facility] Comment on above: Result Comment: CUT- OFF POINTS HAVE BEEN ESTABLISHED BASED ON THE FOURTH UNIVERSAL DEFINITIONS OF MYOCARDIAL INFARCTION. THE UPPER REFERENCE LIMIT (URL) OF TROPONIN, DEFINED THE 99TH PERCENTILE OF cTnI DISTRIBUTION IN A REFERENCE POPULATION, HAS BEEN CONFIRMED THE DECISION THRESHOLD FOR [place] DIAGNOSIS. Performed By: #### C MADM, CMP, DAMIEN, LIPA ####[facility] [address] [address]Dr. Andrea Garcia MIQUEL 61 ng/mL Normal 16-[address] [facility] Comment on above: Performed By: #### C MADM, CMP, DAMIEN, LIPA ####[facility] [address] [address]Dr. Andrea Garcia CBC AUTO DIFFon 01-10-2023 BASO # 0.0 103/ul Normal 0.0-0.1 [facility] Comment on above: Performed By: #### C BC ####[facility] [address] [place], [place] [address]Dr. Andrea Garcia Basophils/100 WBC (Bld) 0.5 % Normal 0.2-2.[address] [facility] Comment on above: Performed By: #### C BC ####[facility] [address] [place], [place] [address]Dr. Andrea Garcia EO # 0.4 103/ul Normal 0.0-0.[address] [facility] Comment on above: Performed By: #### C BC ####[facility] [address] [place], [place] [address]Dr. Andrea Garcia Eosinophils/100 WBC (Bld) 5.9 % Normal 0.9-7.[address] [facility] Comment on above: Performed By: #### C BC ####[facility] [address] [place], [place] [address]Dr. Andrea Garcia Erythrocyte distribution width (RBC) [Ratio] 13.0 % Normal 11.0-15.[address] [facility] Comment on above: Performed By: #### C BC ####[facility] [address] [place], [place] [address]Dr. Andrea Garcia Hematocrit (Bld) [Volume fraction] 40.0 % Critically low 42.0-54.0 [facility] Comment on above: Performed By: #### C BC ####[facility] [address] [address]DrWilder Andrea Garcia Hemoglobin (Bld) [Mass/Vol] 13.4 g/dL Critically low 14.0-18.0 [facility] Comment on above: Performed By: #### C BC ####[facility] [address] [place], [place] [address]DrWilder Kaylendahlia Garcia IG # 0.01 10e3/ul Normal 0.00-0.03 [facility] Comment on above: Performed By: #### C BC ####[facility] [address] [place], [place] [address]DrWilder Kaylendahlia Garcia IG % 0.2 % Normal 0.0-0.5 [facility] Comment on above: Performed By: #### C BC ####[facility] [address] [place], [place] [address]DrWilder Kaylendahlia Garcia LYMPH # 2.2 103/ul Normal 1.2-3.[address] [facility] Comment on above: Performed By: #### C BC ####[facility] [address] [place], [place] [address]DrWilder Kaylendahlia Garcia Lymphocytes/100 WBC (Bld) 33.2 % Normal 20.5-60.0 [facility] Comment on above: Performed By: #### C BC ####[facility] [address] [place], [place] [address]DrWilder Kaylendahlia Garcia MANUAL DIFF REQ NO Normal [facility] Comment on above: Performed By: #### C BC ####[facility] [address] [place], [place] [address]DrWilder Kaylendahlia Garcia MCH (RBC) [Entitic mass] 30.5 pg Normal 25.9-34.[address] [facility] Comment on above: Performed By: #### C BC ####[facility] [address] [place], [place] [address]DrWilder Kaylendahlia Garcia MCHC (RBC) [Mass/Vol] 33.5 g/dL Normal 29.9-35.[address] [facility] Comment on above: Performed By: #### C BC ####[facility] [address] [address]DrWilder Andrea Jose MCV (RBC) [Entitic vol] 90.9 fL Normal 80.0-94.[address] [facility] Comment on above: Performed By: #### C BC ####[facility] [address]feaf[address] [place], [place] [address]DrWilder Garcia MONO # 0.4 103/ul Normal 0.3-0.[address] [facility] Comment on above: Performed By: #### C BC ####[facility] [address] [place], [place] [address]DrWilder Garcia Monocytes/100 WBC (Bld) 6.0 % Normal 1.7-12.[address] [facility] Comment on above: Performed By: #### C BC ####[facility] [address] [place], [place] [address]DrWilder Garcia NEUT # 3.5 103/ul Normal 1.4-6.[address] [facility] Comment on above: Performed By: #### C BC ####[facility] [address] [place], [place] [address]DrWilder Garcia Neutrophils/100 WBC (Bld) 54.2 % Normal 43.0-75.[address] [facility] Comment on above: Performed By: #### C BC ####[facility] [address] [place], [place] [address]DrWilder Garcia Platelet mean volume (Bld) [Entitic vol] 9.7 fL Normal 9.5-13.[address] [facility] Comment on above: Performed By: #### C BC ####[facility] [address] [place], [place] [address]DrWilder Garcia PLT 225 103/ul Normal 150-[address] [facility] Comment on above: Performed By: #### C BC ####[facility] [address] [place], [place] [address]DrWilder Garcia RBC 4.40 106/ul Critically low 4.70-6.[address] [facility] Comment on above: Performed By: #### C BC ####[facility] [address] [place], [place] [address]GfWilder Garcia WBC 6.5 103/ul Normal 4.0-11.0 [facility] Comment on above: Performed By: #### C BC ####[facility] [address] [place], [place] [address]E[address]. Andrea Garcia CT ABD/PELV W CONon 01-11-20 [...] 2023-01-10 07:[address] [facility] CULTURE BLOODon 01-10-2023 Microscopic examination of blood, culture Culture Observations: NO GROWTH AT 36-48 HOURS. FINAL TO FOLLOW. Normal [facility] Comment on above: Performed By: #### B LDCX2 ####[facility] [address] [address]Dr. Andrea Garcia Microscopic examination of blood, culture Culture Observations: NO GROWTH AT 36-48 HOURS. FINAL TO FOLLOW. Normal [facility] Comment on above: Performed By: #### B LDCX1 ####[facility] [address] [address]Dr. Andrea Garcia ER URINE PROFILEon 3 Bilirubin Ql (U) Negative Normal NEGATIVE [facility] Comment on above: Performed By: #### U MICRO, ERUR #### [facility] [address] [address] [address] Andrea Garcia Clarity (U) CLEAR Normal CLEAR [facility] Comment on above: Performed By: #### U MICRO, ERUR #### [facility] [address] [place] [address] Dr. Andrea Garcia Color (U) LT. YELLOW Normal YELLOW [facility] Comment on above: Performed By: #### U MICRO, ERUR #### [facility] [address] [place] [address] Dr. Andrea Garcia ERUAHD A micrscopic examina tion will be performed if indicated. Normal [facility] Comment on above: Performed By: #### U MICRO, ERUR #### [facility] [address] [place] [address] Dr. Andrea Garcia Glucose Ql (U) Negative Normal NEGATIVE [facility] Comment on above: Performed By: #### U MICRO, ERUR #### [facility] [address] [address] [address] Andrea Garcia Hemoglobin Ql (U) TRACE-INTACT Abnormal NEGATIVE [facility] Comment on above: Performed By: #### U MICRO, ERUR #### [facility] [address] [address] [address] Andrea Garcia Ketones Ql (U) Negative Normal NEGATIVE [facility] Comment on above: Performed By: #### U MICRO, ERUR #### [facility] [address] [place] [address] Dr. Andrea Garcia LEUKOCYTES Negative Normal NEGATIVE [facility] Comment on above: Performed By: #### U MICRO, ERUR #### [facility] [address] [place] [address] Dr. Andrea Garcia Nitrite Ql (U) Negative Normal NEGATIVE [facility] Comment on above: Performed By: #### U MICRO, ERUR #### [facility] [address] [place] [address] Dr. Andrea Garcia pH (U) 5.5 [pH] Normal 5-[address] [facility] Comment on above: Performed By: #### U MICRO, ERUR #### [facility] [address] [place] [address] Dr. Andrea Garcia SPEC GRAVITY 1.015 Normal 1.005-<=1. 025 [facility] Comment on above: Performed By: #### U MICRO, ERUR #### [facility] [address] [place] [address] Dr. Andrea Garcia UA PROTEIN Negative Normal NEGATIVE/ TRACE [facility] Comment on above: Performed By: #### U MICRO, ERUR #### [facility] [address] [place] [address] Dr. Andrea Garcia UR MICRO IND INDICATED Normal [facility] Comment on above: Performed By: #### U MICRO, ERUR #### [facility] [address] [place] [address] Dr. Andrea Garcia Urobilinogen Qn (U) 0.2 {Temo'U}/dL Normal 0.2 - 1. 0 [facility] Comment on above: Performed By: #### U MICRO, ERUR #### [facility] [address] [place] [address] Dr. Andrea Garcia LACTATE/LACTIC ACIDon 2022 Lactate [Moles/Vol] 0.8 mmol/L Normal 0.4-2.0 [facility] Comment on above: Performed By: #### L ACT #### [facility] [address] [place] [address] Dr. Andrea Garcia Lactate [Moles/Vol] 0.9 mmol/L Normal 0.4-2.0 [facility] Comment on above: Performed By: #### L ACT #### [facility] [address] [address] [address] Andrea Garcia LIPASEon 01-10-2023 Lipase [Catalytic activity/Vol] 71.0 U/L Critically low 73.0-393.0 [facility] Comment on above: Performed By: #### C MADM, CMP, DAMIEN, LIPA ####[facility] [address] [address]DrWilder Garcia PROF 14(COMP METB)on 023 Albumin [Mass/Vol] 3.2 g/dL Critically low 3.4-5.0 [facility] Comment on above: Performed By: #### C MADM, CMP, DAMIEN, LIPA ####[facility] [address] [address]DrWilder Garcia Albumin/Globulin [Mass ratio] 0.9 {ratio} Normal [facility] Comment on above: Performed By: #### C MADM, CMP, DAMIEN, LIPA ####[facility] [address] [address]Dr. Andrea Garcia ALP [Catalytic activity/Vol] 68 U/L Normal 46-116 [facility] Comment on above: Performed By: #### C MADM, CMP, DAMIEN, LIPA ####[facility] [address] [address]Dr. Andrea Garcia ALT [Catalytic activity/Vol] 30 U/L Normal 16-63 [facility] Comment on above: Performed By: #### C MADM, CMP, DAMIEN, LIPA ####[facility] [address] [address]Dr. Andrea Garcia Anion gap [Moles/Vol] 14.2 mmol/L Normal [facility] Comment on above: Performed By: #### C MADM, CMP, DAMIEN, LIPA ####[facility] [address] [place] [address]DrWilder Garcia AST [Catalytic activity/Vol] 18 U/L Normal 15-37 [facility] Comment on above: Performed By: #### C MADM, CMP, DAMIEN, LIPA ####[facility] [address] [place] [address]Dr. Andrea Garcia Bilirubin [Mass/Vol] 0.5 mg/dL Normal 0.2-1.[address] [facility] Comment on above: Performed By: #### C MADM, CMP, DAMIEN, LIPA ####[facility] [address] [place] [address]Dr. Andrea Garcia Calcium [Mass/Vol] 8.5 mg/dL Normal 8.5-10.[address] [facility] Comment on above: Performed By: #### C MADM, CMP, DAMIEN, LIPA ####[facility] [address] [place] [address]Dr. Andrea Garcia Chloride [Moles/Vol] 108 mmol/L Critically high 98-[address] [facility] Comment on above: Performed By: #### C MADM, CMP, DAMIEN, LIPA ####[facility] [address] [place], [place] [address]Dr. Andrea Garcia CO2 [Moles/Vol] 22.1 mmol/L Normal 21.0-32.[address] [facility] Comment on above: Performed By: #### C MADM, CMP, DAMIEN, LIPA ####[facility] [address] [address]Dr. Andrea Garcia Creatinine [Mass/Vol] 1.06 mg/dL Normal 0.70-1.[address] [facility] Comment on above: Performed By: #### C MADM, CMP, DAMIEN, LIPA ####[facility] [address] [place] [address]Dr. Andrea Garcia EGFR-AF BRUNEIAN >60 Normal >=[address] [facility] Comment on above: Performed By: #### C MADM, CMP, DAMIEN, LIPA ####[facility] [address] [place] [address]Dr. Andrea Garcia EGFR-NON AF BRUNEIAN >60 Normal >=[address] [facility] Comment on above: Performed By: #### C MADM, CMP, DAMIEN, LIPA ####[facility] [address] [place] [address]Dr. Andrea Garcia Globulin (S) [Mass/Vol] 3.5 g/dL Normal [facility] Comment on above: Performed By: #### C MADM, CMP, DAMIEN, LIPA ####[facility] [address] [place] [address]Dr. Andrea Garcia Glucose [Mass/Vol] 110 mg/dL Critically high 74-106 T [facility] Comment on above: Performed By: #### C MADM, CMP, DAMIEN, LIPA ####[facility] [address] [place] [address]Dr. Andrea Garcia Potassium [Moles/Vol] 4.3 mmol/L Normal 3.5-5.[address] [facility] Comment on above: Performed By: #### C MADM, CMP, DAMIEN, LIPA ####[facility] [address] [place], [place] [address]Dr. Andrea Garcia Protein [Mass/Vol] 6.7 g/dL Normal 6.4-8.[address] [facility] Comment on above: Performed By: #### C MADM, CMP, DAMIEN, LIPA ####[facility] [address] [place], [place] [address]Dr. Andrea Garcia Sodium [Moles/Vol] 140 mmol/L Normal 136-[address] [facility] Comment on above: Performed By: #### C MADM, CMP, DAMIEN, LIPA ####[facility] [address] [place] [address]Dr. Andrea Garcia Urea nitrogen [Mass/Vol] 20.0 mg/dL Critically high 7.0-18.[address] [facility] Comment on above: Performed By: #### C MADM, CMP, DAMIEN, LIPA ####[facility] [address] [place], [place] [address]Dr. Andrea Garcia Urea nitrogen/Creatinine [Mass ratio] 18.9 mg/mg Normal [facility] Comment on above: Performed By: #### C MADM, CMP, DAMIEN, LIPA ####[facility] Vzjmtuxnyq[address]417 [address] [place], [place] [address]Dr. Andrea Garcia URINE MICROSCOPIC ONLYon BACTERIA NONE SEEN Normal NONE SEEN [facility] Comment on above: Performed By: #### U MICRO, ERUR #### [facility] [address] [place] [address] Dr. Andrea Garcia Bacteria identified Cx Nom (U) NOT INDICATED Normal [facility] Comment on above: Performed By: #### U MICRO, ERUR #### [facility] [address] [place] [address] Dr. Andrea Garcia CAST NONE SEEN Normal NONE SEEN [facility] Comment on above: Performed By: #### U MICRO, ERUR #### [facility] [address] [place] [address] Dr. Andrea Garcia Crystals LM Nom (Urine sed) NONE SEEN Normal NONE SEEN [facility] Comment on above: Performed By: #### U MICRO, ERUR #### [facility] [address] [place] [address] Dr. Andrea Garcia Epithelial cells LM Ql (Urine sed) NONE SEEN Normal NONE SEEN /RARE [facility] Comment on above: Performed By: #### U MICRO, ERUR #### [facility] [address] [place] [address] Dr. Andrea Garcia MUCOUS NONE SEEN Normal NONE SEEN [facility] Comment on above: Performed By: #### U MICRO, ERUR #### [facility] [address] [place] [address] Dr. Andrea Garcia RBC 0-2 Normal 0-[address] [facility] Comment on above: Performed By: #### U MICRO, ERUR #### [facility] [address] [place] [address] Dr. Andrea Garcia WBC 0-2 Abnormal NONE SEEN [facility] Comment on above: Performed By: #### U MICRO, ERUR #### [facility] [address] [place] [address] Dr. Andrea Garcia XR CHEST 1 Von 01-10-2023 XR CHEST 1 V Exam: Radiographs: X R CHEST 1 V Reason for exam: Nausea/vomiting Comparison: None IMPRESSION: Negative chest. Electronically authenticated by: ADITYA OATES Date: 2023-01-10 07:42 Normal [address] [facility] MRI Soft Tissue Neck w/o [...] by KENN RAPHAEL on 10/06/2021 1605 Normal [facility] Soft Tissue Neck w/ Contr ast*on [...] by Que Greene on 09/29/2021 1013 Normal [facility] Vital Signs Date Time Vital Sign Value Performing Clinician Faci litrubio 01-09-2024 19:01-0400 Diastolic blood pressure 99 mm[Hg] MD Lauren Godwin Work Phone: [facility] 01-09-2024 19:01-0400 Heart rate 84 /min MD Lauren Godwin Work Phone: [facility] 01-09-2024 19:01-0400 Respiratory rate 18 /min MD Lauren Godwin Work Phone: [facility] 01-09-2024 19:01-0400 SaO2% (BldA) [Mass fraction] 97 % MD Lauren Godwin Work Phone: [facility] 01-09-2024 19:01-0400 Systolic blood pressure 190 mm[Hg] MD Lauren Godwin Work Phone: [facility] 01-09-2024 14:29-0400 Body height 187.96 cm MD Lauren Godwin Work Phone: [facility] 01-09-2024 14:29-0400 Body temperature 98.3 [degF] MD Lauren Godwin Work Phone: [facility] 01-09-2024 14:29-0400 Body weight 83 kg MD Lauren Godwin Work Phone: [facility] 12-18-2023 13:10-0400 Heart rate 85 /min MD Lauren Godwin Work Phone: [facility] 12-18-2023 13:09-0400 Body temperature 97.9 [degF] MD Lauren Godwin Work Phone: [facility] 12-18-2023 13:09-0400 Diastolic blood pressure 77 mm[Hg] MD Lauren Godwin Work Phone: [facility] 12-18-2023 13:09-0400 Respiratory rate 18 /min MD Lauren Godwin Work Phone: [facility] 12-18-2023 13:09-0400 SaO2% (BldA) [Mass fraction] 97 % MD Lauren Godwin Work Phone: [facility] 12-18-2023 13:09-0400 Systolic blood pressure 161 mm[Hg] MD Lauren Godwin Work Phone: [facility] 12-18-2023 13:06-0400 Body height 186.69 cm MD Lauren Godwin Work Phone: [facility] 12-18-2023 13:06-0400 Body weight 81 kg MD Lauren Godwin Work Phone: [facility] 03-03-2023 13:30-0400 Diastolic blood pressure 100 mm[Hg] MD Lauren Godwin Work Phone: [facility] 03-03-2023 13:30-0400 Heart rate 59 /min MD Lauren Godwin Work Phone: [facility] 03-03-2023 13:30-0400 Respiratory rate 18 /min MD Lauren Godwin Work Phone: [facility] 03-03-2023 13:30-0400 SaO2% (BldA) [Mass fraction] 99 % MD Lauren Godwin Work Phone: [facility] 03-03-2023 13:30-0400 Systolic blood pressure 160 mm[Hg] MD Lauren Godwin Work Phone: [facility] 03-03-2023 11:36-0400 Body height 175.26 cm MD Lauren Godwin Work Phone: [facility] 03-03-2023 11:36-0400 Body temperature 98 [degF] MD Lauren Godwin Work Phone: [facility] 03-03-2023 [id number] Body weight 84.3 kg MD Lauren Godwin Work Phone: [facility] Encounters Encounter Date Encounter Type Care Provider Facility Start: 08-09-2024 End: 08-09-2024 Emergency department patient visit SHIV [facility] Start: 04-06-2024 End: 04-06-2024 ambulatory [facility] Start: 01-09-2024 End: 01-09-2024 Emergency department patient visit Lauren Godwin Facility:[facility] Start: 01-09-2024 End: 01-09-2024 Emergency department patient visit MD Lauren Godwin Work Phone: [facility] Work Phone: Start: 12-18-2023 End: 12-18-2023 Emergency department patient visit Marie Garrison Facility:[facility] Start: 12-18-2023 End: 12-18-2023 Emergency department patient visit MD Lauren Godwin Work Phone: [facility] Work Phone: Start: 12-09-2023 End: 12-09-2023 ambulatory [facility] Start: 06-07-2023 End: [facility] Start: 05-27-2023 End: 05-27-2023 ambulatory [facility] Start: 03-03-2023 End: 03-03-2023 Emergency department patient visit Ramiro Cortez Facility:[facility] Start: 03-03-2023 End: 03-03-2023 Emergency department patient visit MD Lauren Godwin Work Phone: [facility] Work Phone: Start: 01-10-2023 End: 01-11-2023 Evaluation and management of inpatient DR DOCTOR CROCKER Facility:[facility] Procedures Date Procedure Procedure Detail Performing Clinician Start: 01-09-2024 CT angiography of thorax MD Lauren Godwin Work Phone: Start: 01-09-2024 Plain chest X-ray MD Valdivia Work Phone: Start: 03-03-2023 Plain chest X-ray MD Valdivia Work Phone: Plan of Treatment Date Care Activity Detail Author Start: 12-18-2023 [facility] Patient Education [facility] Work Phone: Patient referral [facility] Work Phone: Payers Date Payer Category Payer Self-pay [id number] 2022 Unknown [id number] 1960 Medicare [id number] 1950 Unknown [id number] 1950 Unknown [id number] Unknown [id number] Unknown [id number] Unknown [id number] [id number] Social History Date Type Detail Facility Start: 03-03-2023 End: 01-09-2024 Tobacco smoking status NHIS Ex-smoker (finding) [facility] Start: 1950 Sex Assigned At Male F [facility] Progress note 04-06-2024 Note Date & Type Note Facility 04-06-2024 Note [facility] Subjective Jeb Riddle is a 73 y.o. year old male patient here for a follow up echo from January, he was amitted to [facility], for chest pain a couple weeks ago and had another echo. He had a lipid panel yesterday. At last appointment his statin was changed. 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 He still rides his bike to [email or web address] everyday, still active. Patient Active Problem List [...] He was admitted to the hospital at [facility] and was started on anticoagulation therapy. Today [...] metoprolol succinate XL (more content not included)... [facility] Progress note 12-09-2023 Note Date & Type Note Facility 12-09-2023 Note 8K can you read, out of the so I can make changes in [place] [facility] - [facility] Subjective Jeb iRddle is a 73 y.o. year old male [...] presented to the emergency room at the [facility] and investigation including a CT [...] Rfl: 3 prav (more content not included)... [facility] Progress note 06-07-2023 Note Date & [...] Heart Sounds: norm (more content not included)... [facility] Progress note 05-27-2023 Note Date & Type Note Facility 05-27-2023 Note [place] [facility] Subjective Jeb [...] Rate 04/06/2023 80 Atrial Rate 04/06/2023 80 DC Interval 04/06/2023 176 QRS DURATION 04/06/2023 98 QT Interval 04/06/2023 396 QTC CALCULATION(BAZETT) 04/06/2023 456 P [place] 04/06/2023 79 R-[place] 04/06/2023 75 T Wave [place] 04/06/2023 73 Imaging and other tests Cardiac catheterization 04/06/2023: Impression/Findings: Coronary angiogram shows non-obstructive coronary artery disease. Plan: Medical therapy for (more content not included)... [facility] Evaluation note Note Date & Type Note Facility Evaluation note No assessment information availa ble [facility] Work Phone: Hospital Discharge instructions Note Date & Type Note Facility Hospital Discharge instructions Additional Instructions Continue Pepcid once or twice a day as needed [place] diet Follow-up with your family doctor for recheck Return to the ER for worsening pain shortness of breath fever or any other concerns [facility] Work Phone: Summary Purpose Family [...] section and content) DATE CREATED AUTHOR 10/07/2021 [facility] dical Specialist DATE CREATED AUTHOR AUTHOR'S ORGANIZ ATION 01/21/2023 [facility] DATE CREATED AUTHOR AUTHOR'S ORGANIZ ATION 01/09/2024 [facility] DATE CREATED AUTHOR AUTHOR'S ORGANIZ ATION 04/20/2024 [facility] DATE CREATED AUTHOR AUTHOR'S ORGANIZ ATION 08/10/2024 [facility] Care Teams (unrecognized sec tion and content) Team Status: Active Member Role Status Eduardo Godwin MD Primary Care Provider Active Team Status: Inactive Member Role Status Eduardo Godwin MD Primary Care Provider Active Ramiro [...] 2024 End: January 09, 2024 Naima Boyd [facility] Emergency Provider Active Start: January 09, [...] BE BASED ON THE PRIMARY CLINICAL RECORDS. [facility] [employer] [facility]. provides no warranty or guarantee of the accuracy or completeness of information in this document.
[2024-08-30 20:55] VITALS: BP 155/106; PULSE 97; TEMP 36.7; O2SAT 99
--- NOTE | 2024-08-30 21:19 | XR_ITS ---
The [address] [address] Patient Name: JEB TOBIAS MRN: [id number] date: 1950 Sex: M Assigned Patient Location: ER Current Patient Location: ER Accession/Order Number: [id number] Exam Date: 08/30/2024 21:10 Report Date: 08/30/2024 22:39 At the request of: EDITH MARADIAGA Procedure: XR acute abdomen series EXAMINATION: XR acute abdomen series HISTORY: concern for SBO ; abdominal pain ; history of Crohn's disease COMPARISON: XR acute abdomen series 11/01/2023 FINDINGS: LUNGS: Mild opacity and trace stranding within left lateral costophrenic angle. MEDIASTINUM: No abnormal widening. BOWEL GAS PATTERN: A few fluid-filled mildly distended loops of small bowel within left upper quadrant. Moderate amount of stool throughout the colon. Right upper quadrant calcifications which may be within diverticula. FREE AIR: None. CALCIFICATIONS: None significant. BONES: No fracture or visible bone lesion. OTHER: Negative. XR/XR acute abdomen series IMPRESSION: 1. Trace amount of lingular infiltrates versus atelectasis. 2. Suspect mild enteritis or mild flareup of Crohn's disease. No bowel obstruction or ileus. Electronically authenticated by: LILIANA AREVALO Date: 08/30/2024 22:39
[2024-08-30 21:30] LABS: Basophils Percent Auto 0.4 % (0.2-2.0); Eosinophils Absolute Auto 0.2 10^3/uL (0.0-0.7); Hematocrit 42.7 % (42.0-54.0); Hemoglobin 14.9 g/dL (14.0-18.0); Immature Granulocytes Abs Auto 0.02 10^3/uL (0.00-0.03); Immature Granulocytes Pct Auto 0.3 % (0.0-0.5); Lymphocytes Percent Auto 25.1 % (20.5-60.0); Mean Corpuscular HGB Conc 34.9 g/dL (29.9-35.2); Mean Corpuscular Hemoglobin 32.5 pg (25.9-34.0); Mean Corpuscular Volume 93.2 fL (80.0-94.0); Mean Platelet Volume 10.7 fL (9.5-13.5); Monocytes Absolute Auto 0.5 10^3/uL (0.3-0.8); Monocytes Percent Auto 6.6 % (1.7-12.0); Neutrophils Absolute Auto 5.2 10^3/uL (1.4-6.5); Neutrophils Percent Auto 64.6 % (43.0-75.0); Platelet Count 258 10^3/uL (150-450); Red Blood Count 4.58 10^6/uL (4.70-6.10); Red Cell Distribution Width 12.5 % (11.0-15.0)
[2024-08-30] MEDS: ONDANSETRON PF 4 MG/2 ML VIAL IV (21:34)
[2024-08-30] MEDS: HYDROMORPHONE HCL 1 MG/ML CARTRIDGE IVP (21:34)
[2024-08-30] MEDS: 0.9 % SODIUM CHLORIDE 1,000 ML 999 ML IV (21:35)
--- NOTE | 2024-08-30 21:36 | ED_ITS ---
HPI - Abdominal Pain General Chief Complaint: Abdominal Pain Stated Complaint: POSS BOWEL OBSTRUCTION-HX Time Seen by Provider: 08/30/24 21:01 Source: patient Limitations: no limitations History of Present Illness HPI narrative: 73-year-old male to the emergency department chief complaint of recurrent bowel obstruction. Patient reports he had onset of abdominal pain, nausea typical of small bowel obstructions for him this afternoon. He was hoping it would resolve and presented for evaluation. He reports a history of Crohn's for which she has been diagnosed in 2007. He reports that typically he is admitted is n.p.o., is given fluids pain medication steroids and the small bowel obstruction resolves over 48 hours. Related Data Home Medications ?Medication ?Instructions ?Recorded ?Confirmed lisinopril 5 mg tablet 40 mg PO DAILY 02/25/23 03/19/24 mesalamine 400 mg capsule (with 800 mg PO BID 02/25/23 03/19/24 delayed release tablets inside) ondansetron 8 mg disintegrating 8 mg PO Q8H PRN nausea and vomiting 09/02/23 03/19/24 tablet clonidine HCl 0.1 mg tablet 0.1 mg PO BID 03/19/24 03/19/24 metoprolol tartrate 100 mg tablet 100 mg PO BID 03/19/24 03/19/24 topiramate 50 mg tablet (Topamax) 50 mg PO DAILY 03/19/24 03/19/24 Previous Rx's ?Medication ?Instructions ?Recorded isosorbide mononitrate 30 mg 30 mg PO QAM #30 tabs 03/14/23 tablet,extended release 24 hr apixaban 5 mg tablet (Eliquis) 10 mg (2 x 5 mg) PO BID #60 tabs 03/20/24 oxycodone-acetaminophen 5 mg-325 1 tab PO Q6H PRN pain #12 tabs 08/30/24 mg tablet (Percocet) prednisone 10 mg tablet 10 mg PO DAILY #42 tabs 08/30/24 Allergies Allergy/AdvReac Type Severity Reaction Status Date / Time Fish Containing Products AdvReac Severe Abdominal Verified 08/30/24 20:59 Pain Review of Systems ROS Status of ROS 10 or more systems reviewed and unremark able except as noted in history and below [facility] Medical History (Updated 08/30/24 @ 23:33 by Warner Su MD) Pulmonary embolism ?I26.99 - Other pulmonary embolism without acute cor pulmonale (ICD-10) Chest pain ?R07.9 - Chest pain, unspecified (ICD-10) DVT (deep venous thrombosis) ?I82.409 - Acute embolism and thrombosis of unspecified deep veins of unspecified lower extremity (ICD-10) Dehydration ?E86.0 - Dehydration (ICD-10) DAVID (acute kidney injury) ?N17.9 - Acute kidney failure, unspecified (ICD-10) Abdominal pain ?R10.9 - Unspecified abdominal pain (ICD-10) Nausea & vomiting ?R11.2 - Nausea with vomiting, unspecified (ICD-10) Hypertension ?I10 - Essential (primary) hypertension (ICD-10) Crohn disease ?K50.90 - Crohn's disease, unspecified, without complications (ICD-10) Surgical History (Updated 03/19/24 @ 21:43 by Shani Coyne) H/O hernia repair ?Z98.890 - Other specified postprocedural states (ICD-10) ?Z87.19 - Personal history of other diseases of the digestive system (ICD-10) History of bowel resection ?Z90.49 - Acquired absence of other specified parts of digestive tract (ICD- 10) Family History (Updated 03/13/23 @ 20:02 by Bita Cyr RN) Father Family history of COPD (chronic obstructive pulmonary disease) Family history of diabetes mellitus Family history of myocardial infarction Brother Family history of cancer Mother Family history of diabetes mellitus Other Family history of hypertension Social History Within the past year, how often did you have a drink containing alcohol: 2-3 times a week Within the past year, how many standard drinks containing alcohol did you have on a typical day: 1 or 2 Within the past year, how often did you have six or more drinks on one occasion: never Total score: 0 Score interpretation: A score less than 4 is consistent with normal alcohol consumption. 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 Little interest or pleasure in doing things: not at all Feeling down, depressed, or hopeless: not at all Feel stressed/tense/nervous/anxious/difficulty sleeping: not at all Do you think of yourself as: straight/heterosexual Gender Identity: male Exam Narrative Exam Narrative: VITALS: I have reviewed the triage vital signs. GENERAL: Uncomfortable adult male NEURO: Alert and oriented. Moves all extremities. Face is symmetric and expressive. EYES: PERRL. No scleral icterus or conjunctival injection. No discharge. HENT: Normocephalic, atraumatic. Hearing is grossly intact. Nares grossly patent and without discharge. Mucous membranes moist. NECK: No JVD. Patient moves neck without restriction. CARDIO: Rhythm regular. Normal rate. No murmur, rub, or gallop. Pulses equal bilaterally in the upper and lower extremity. No lower extremity edema. PULM: Lungs clear to auscultation in all orozco. No wheezes, rales, or rhonchi. No conversational dyspnea. No splinting, stridor, or accessory muscle use. GI/: Diffusely tender abdomen. No peritoneal signs. Hypoactive bowel sounds EXTREMITIES: Symmetric muscle bulk. No joint swelling. No clubbing, cyanosis, or deformity. SKIN: Warm and dry. Normal turgor. No rash or lesions appreciated. PSYCH: Mood, affect, and interaction is appropriate to the setting. Constitutional Vital Signs, click to edit/add: Last Vital Signs Temp 98.1 F 08/30/24 20:55 Pulse 97 H 08/30/24 20:55 Resp 16 08/30/24 20:55 BP 155/106 H 08/30/24 20:55 Pulse Ox 99 08/30/24 20:55 O2 Del Method Room Air 08/30/24 20:55 Course Vital Signs Vital signs: Vital Signs Temperature 98.1 F 08/30/24 20:55 Pulse Rate 97 H 08/30/24 20:55 Respiratory Rate 16 08/30/24 20:55 Blood Pressure 155/106 H 08/30/24 20:55 Pulse Oximetry 99 08/30/24 20:55 Oxygen Delivery Method Room Air 08/30/24 20:55 Temperature 98.1 F 08/30/24 20:55 Pulse Rate 97 H 08/30/24 20:55 Respiratory Rate 16 08/30/24 20:55 Blood Pressure 155/106 H 08/30/24 20:55 Pulse Oximetry 99 08/30/24 20:55 Oxygen Delivery Method Room Air 08/30/24 20:55 MDM - Abdominal Pain MDM Narrative Medical decision making narrative: 73-year-old male to the emergency department chief complaint of abdominal pain, nausea, concern for SBO. Vital stable, the patient is afebrile. He has had multiple CT scans in the past, would like to avoid CT imaging if possible. Abdominal series is ordered. Basic labs. Symptom control. Patient agrees with this plan. Abdominal series without acute findings Lab work unremarkable. Discussed with the patient. Likely Crohn's flare. Will treat with a prednisone taper as well as Percocet for home. Return precautions were discussed. All questions were answered. The patient was discharged home. Medical Records Attestation: I reviewed the patient's medical records. Lab Data Attestation: I reviewed the patient's lab results. Labs: Lab Results 08/30/24 08/30/24 Range/Units 21:10 21:45 WBC 8.0 (4.0-11.0) 10^3/uL RBC 4.58 L (4.70-6.10) 10^6/uL Hgb 14.9 (14.0-18.0) g/dL Hct 42.7 (42.0-54.0) % MCV 93.2 (80.0-94.0) fL MCH 32.5 (25.9-34.0) pg MCHC 34.9 (29.9-35.2) g/dL RDW 12.5 (11.0-15.0) % Plt Count 258 (150-450) 10^3/uL MPV 10.7 (9.5-13.5) fL Neut % (Auto) 64.6 (43.0-75.0) % Lymph % (Auto) 25.1 (20.5-60.0) % [place] % (Auto) 6.6 (1.7-12.0) % Eos % (Auto) 3.0 (0.9-7.0) % Baso % (Auto) 0.4 (0.2-2.0) % Neut # (Auto) 5.2 (1.4-6.5) 10^3/uL Lymph # (Auto) 2.0 (1.2-3.8) 10^3/uL [place] # (Auto) 0.5 (0.3-0.8) 10^3/uL Eos # (Auto) 0.2 (0.0-0.7) 10^3/uL Baso # (Auto) 0.0 (0.0-0.1) 10^3/uL Abs Immat Gran (auto) 0.02 (0.00-0.03) 10^3/uL Imm/Tot Granulo (auto) 0.3 (0.0-0.5) % Sodium 144 (136-145) mmol/L Potassium 5.0 (3.5-5.1) mmol/L Chloride 107 (98-107) mmol/L Carbon Dioxide 26.8 (21.0-32.0) mmol/L Anion Gap 15.2 BUN 33.0 H (7.0-18.0) mg/dL Creatinine 1.49 H (0.70-1.30) mg/dL Est GFR ( Amer) 56 L (>=60 mL/min/1.73m^2) Est GFR (Non-Af Amer) 46 L (>=60 mL/min/1.73m^2) BUN/Creatinine Ratio 22.1 Glucose 103 (74-106) mg/dL Lactate 1.2 (0.4-2.0) mmol/L Calcium 9.2 (8.5-10.1) mg/dL Total Bilirubin 0.5 (0.2-1.0) mg/dL AST 27 (15-37) U/L ALT 32 (16-63) U/L Alkaline Phosphatase 82 (46-116) U/L Total Protein 7.4 (6.4-8.2) g/dL Albumin 3.8 (3.4-5.0) g/dL Globulin 3.6 g/dL Albumin/Globulin Ratio 1.1 Lipase 24.0 (16.0-77.0) U/L Urine Color Yellow (YELLOW) Urine Clarity Clear (CLEAR) Urine pH 5.5 (5.0-9.0) Ur Specific [place] 1.025 (1.005-1.025) Urine Protein Negative (NEG/TRACE) mg/dL Urine Glucose (UA) Negative (NEGATIVE) mg/dL Urine Ketones Negative (NEGATIVE) mg/dL Urine Occult Blood Trace-i (NEGATIVE) Urine Nitrite Negative (NEGATIVE) Urine Bilirubin Negative (NEGATIVE) Urine Urobilinogen 0.2 (0.2-1.0) EU/dL Ur Leukocyte Esterase Negative (NEGATIVE) Urine RBC 2-5 A (0-2) #/HPF Urine WBC 2-5 A (NONE SEEN) #/HPF Ur Squamous Epith Cells None seen (NONE/RARE) #/LPF Urine Crystals None seen (None Seen) #/HPF Urine Bacteria Trace A (NONE SEEN) #/HPF Urine Casts None seen (NONE SEEN) #/LPF Urine Mucus None seen (NONE SEEN) Imaging Data Abdominal x-ray: Attestation: I have reviewed the pertinent imaging results. Radiologist's impression: ITS Impressions Chest/Abdomen X-ray 08/30/24 21:19 IMPRESSION: 1. Trace amount of lingular infiltrates versus atelectasis. 2. Suspect mild enteritis or mild flareup of Crohn's disease. No bowel obstruction or ileus. Electronically authenticated by: LILIANA AREVALO Date: 08/30/2024 22:39 Discharge Plan Discharge Chief Complaint: Abdominal Pain Clinical Impression: Abdominal pain Patient Disposition: Home, Self-Care Time of Disposition Decision: 23:33 Condition: Good Mode of Transportation: Private Vehicle Prescriptions / Home Meds: New prednisone 10 mg tablet 10 mg PO DAILY Qty: 42 0RF Rx Instructions: Take six Tablets daily for two days. Take five tablets daily for two days. Take four tablets daily for two days. Take three tablets daily for two days. Take two tablets daily for two days. Take one tablet daily for two days. oxycodone-acetaminophen [Percocet] 5-325 mg tablet 1 tab PO Q6H PRN (Reason: pain) Qty: 12 0RF No Action isosorbide mononitrate 30 mg tablet extended release 24 hr 30 mg PO QAM Qty: 30 11RF ondansetron 8 mg tablet,disintegrating 8 mg PO Q8H PRN (Reason: nausea and vomiting) clonidine HCl 0.1 mg tablet 0.1 mg PO BID topiramate [Topamax] 50 mg tablet 50 mg PO DAILY metoprolol tartrate 100 mg tablet 100 mg PO BID Eliquis 5 mg Tablet 10 mg PO BID Qty: 60 11RF Rx Instructions: 10 mg a day for 1 week then 5 mg po BID lisinopril 5 mg tablet 40 mg PO DAILY mesalamine 400 mg capsule (with del rel tablets) 800 mg PO BID Print Language: Bengali Instructions: Abdominal Pain (ED) Additional Instructions: Call the office of your primary care doctor to arrange for follow-up within the above-stated timeframe. Your ED visit was focused on your acute issue and does not replace primary care. You should review your labs, imaging, and diagnoses from this ED visit with your primary care physician. There may be non-emergent/ incidental findings that need further evaluation. You should review your vital signs including blood pressure with your PCP. If you were prescribed medications you should discuss possible side-effects and drug interactions with your pharmacist. Call 911 or go to the nearest Emergency Department if you develop any new or worsening symptoms. Seek immediate medical attention if you develop: worsening abdominal pain, new or worsening nausea, new or worsening vomiting, new or worsening diarrhea, chest pain, shortness of breath, pain with urination, problems urinating, fever, chills, weakness, or any new or worsening symptoms. Referrals: Rodriguez Godwin MD [Primary Care Provider] - 1 week Discharge Date/Time: 08/30/24 23:48
[2024-08-30 21:42] LABS: Alanine Aminotransferase 32 U/L (16-63); Albumin Globulin Ratio 1.1; Albumin Level 3.8 g/dL (3.4-5.0); Alkaline Phosphatase 82 U/L (46-116); Anion Gap 15.2; Aspartate Amino Transferase 27 U/L (15-37); BUN Creatinine Ratio 22.1; Bilirubin Total 0.5 mg/dL (0.2-1.0); Calcium 9.2 mg/dL (8.5-10.1); Carbon Dioxide 26.8 mmol/L (21.0-32.0); Chloride 107 mmol/L (98-107); Estimated GFR (African America 56 (>=60 mL/min/1.73m^2); Estimated GFR (Non-African Ame 46 (>=60 mL/min/1.73m^2); Globulin 3.6 g/dL; Glucose 103 mg/dL (74-106); Sodium 144 mmol/L (136-145); Total Protein 7.4 g/dL (6.4-8.2)
[2024-08-30 21:48] LABS: Lactate/Lactic Acid 1.2 mmol/L (0.4-2.0)
[2024-08-30] MEDS: METHYLPREDNISOLONE SOD SUCC PF 125 MG/2 ML VIAL IVP (21:50)
[2024-08-30 21:59] LABS: Bilirubin Urine NEGATIVE (NEGATIVE); Blood Urine TRACE-I (NEGATIVE); Clarity Urine CLEAR (CLEAR); Glucose Urine UA NEGATIVE (NEGATIVE); Ketones Urine NEGATIVE (NEGATIVE); Leukocyte Esterase Urine NEGATIVE (NEGATIVE); Nitrite Urine NEGATIVE (NEGATIVE); Protein Urine NEGATIVE (NEG/TRACE); Specific Gravity Urine 1.025 (1.005-1.025); Urobilinogen Urine 0.2 EU/dL (0.2-1.0); pH Urine 5.5 (5.0-9.0)
[2024-08-30 22:06] LABS: Color Urine YELLOW (YELLOW)
[2024-08-30 22:10] LABS: Bacteria Urine TRACE #/HPF (NONE SEEN); Cast Seen? NONE SEEN #/LPF (NONE SEEN); Crystals Seen? None Seen #/HPF (None Seen); Mucus Urine NONE SEEN (NONE SEEN); Squamous Epithelial Cell Urine NONE SEEN #/LPF (NONE/RARE)
[2024-08-30] MEDS: HYDROMORPHONE HCL 0.5 MG/0.5 ML SYRINGE IV (22:52)
[2024-08-30] MEDS: OXYCODONE HCL/ACETAMINOPHEN 5MG/325MG 1 TAB PO (23:44)
== END 2024-08-30 23:48 | disposition home or self-care (01) ==
PROVIDERS: Emergency Provider Student in an Organized Health Care Education/Training Program; Family Provider Family Medicine; PCP Family Medicine
DX: R10.9 Unspecified abdominal pain (principal); K50.90 Crohn's disease, unspecified, without complications; Z87.891 Personal history of nicotine dependence
CPT/HCPCS: 36415; 74022; 80053; 81001; 83605; 83690; 85025; 96374; 96375; 96376; 99285; J1171; J2405; J2919

== ENCOUNTER 2024-08-31 02:20 | Inpatient (IN) | payer MEDICARE, SELFPAY ==
[2024-08-31] VITALS (15 sets, daily range): BP systolic 138–207; BP diastolic 77–102; PULSE 83–147; TEMP 36.4–37; O2SAT 95–98; BMI 23.0; BMI 24.1
--- NOTE | 2024-08-31 02:23 | CT_ITS ---
The [address] [address] Patient Name: JEB TOBIAS MRN: [id number] date: 1950 Sex: M Assigned Patient Location: ER Current Patient Location: Accession/Order Number: [id number] Exam Date: 08/31/2024 03:25 Report Date: 08/31/2024 04:06 At the request of: EDITH MARADIAGA Procedure: CT abdomen pelvis w con EXAM: CT angio chest, CT abdomen pelvis w con , 08/31/2024 HISTORY: chest pain abdominal pain. COMPARISON: CTA chest, O805 2023. TECHNIQUE: IV contrast enhanced CTA imaging the chest, abdomen and pelvis with MIP and MPR images. Dose reduction techniques were achieved by using automated exposure control and/or adjustment of mA and/or kV according to patient size and/or use of iterative reconstruction technique. FINDINGS: CTA CHEST: No acute pulmonary embolism. Normal cardiac size. No pericardial effusion. Minimal coronary arterial calcification in the LAD. Pulsation artifact degrading the ascending aorta. Mild thoracic aortic calcifications. Otherwise unremarkable thoracic aorta and arch vessels. No dissection or aneurysm. Unremarkable thyroid and esophagus. Negative for thoracic adenopathy. Mild pulmonary emphysema with mild anterior bibasilar linear fibrotic scarring. No acute pulmonary abnormality. No acute osseous findings in the chest. CTA ABDOMEN: Fairly prominent aortic calcifications without aneurysm or dissection. Unremarkable celiac axis, superior mesenteric artery, left renal artery and inferior mesenteric artery. Right renal artery and accessory right renal artery are somewhat diminutive but otherwise unremarkable on image 108. No acute vascular abnormality or active bleeding is seen. The liver, gallbladder, pancreas, spleen and adrenal glands appear unremarkable. There is a large peripelvic cyst measuring 9 cm on image 118. There are numerous nonobstructing renal calculi measuring up to 10 mm in the lateral midpole. There is a 9 mm stone in the posterior midpole of the left kidney. Left renal cysts measure up to 3.6 cm in the posterior lower pole. The left kidney is otherwise unremarkable. There are gas and fluid-filled distended small bowel loops extending into the lateral right upper pelvis where a transition point is seen on images 156 through 158 of series 4. The small bowel becomes decompressed with wall thickening at this level, extending to the neoterminal ileum. There are prominent aortic calcifications without aneurysm. The IVC appears normal. Surgical scarring is seen in the subcutaneous fat of the anterior abdominal wall. CTA PELVIS: No acute vascular injury or active bleeding is seen. Fairly prominent atherosclerotic calcifications are noted. There appears to be prior removal of the cecum with anastomosis near the ileocecal junction. Inflammatory changes are noted in the terminal ileum. There is scattered pancolonic diverticulosis, most prominent in the sigmoid. The prostate is enlarged. The urinary bladder is unremarkable. No free fluid, loculated fluid, free air or soft tissue gas is seen in the abdomen or pelvis. There is fairly advanced degenerative disc disease at L5-S1. No acute osseous abnormality or suspicious bony lesion is seen. CT/CT abdomen pelvis w con IMPRESSION: 1. No acute pulmonary embolism, aortic dissection, or other acute findings in the chest. 2. No acute vascular abnormality in the abdomen or pelvis. 3. Small bowel obstruction with transition point in the lateral right upper pelvis. The small bowel becomes decompressed with wall thickening at this level, extending to the neoterminal ileum suspicious for acute exacerbation of the patient's known Crohn's disease. No other acute findings are seen in the abdomen or pelvis. 4. Prior cecal resection with anastomosis near the ileocecal junction. 5. Pancolonic diverticulosis. 6. Nonobstructing bilateral renal calculi. 7. Prostatomegaly. Additional nonemergent findings are present, as above. Electronically authenticated by: MARCELA SULLIVAN Date: 08/31/2024 04:06
[2024-08-31] MEDS: HYDROMORPHONE HCL 1 MG/ML CARTRIDGE IV (02:48)
--- NOTE | 2024-08-31 02:57 | CT_ITS ---
The [address] [address] Patient Name: JEB TOBIAS MRN: [id number] date: 1950 Sex: M Assigned Patient Location: ER Current Patient Location: Accession/Order Number: [id number] Exam Date: 08/31/2024 03:25 Report Date: 08/31/2024 04:06 At the request of: EDITH MARADIAGA Procedure: CT angio chest EXAM: CT angio chest, CT abdomen pelvis w con , 08/31/2024 HISTORY: chest pain abdominal pain. COMPARISON: CTA chest, O805 2023. TECHNIQUE: IV contrast enhanced CTA imaging the chest, abdomen and pelvis with MIP and MPR images. Dose reduction techniques were achieved by using automated exposure control and/or adjustment of mA and/or kV according to patient size and/or use of iterative reconstruction technique. FINDINGS: CTA CHEST: No acute pulmonary embolism. Normal cardiac size. No pericardial effusion. Minimal coronary arterial calcification in the LAD. Pulsation artifact degrading the ascending aorta. Mild thoracic aortic calcifications. Otherwise unremarkable thoracic aorta and arch vessels. No dissection or aneurysm. Unremarkable thyroid and esophagus. Negative for thoracic adenopathy. Mild pulmonary emphysema with mild anterior bibasilar linear fibrotic scarring. No acute pulmonary abnormality. No acute osseous findings in the chest. CTA ABDOMEN: Fairly prominent aortic calcifications without aneurysm or dissection. Unremarkable celiac axis, superior mesenteric artery, left renal artery and inferior mesenteric artery. Right renal artery and accessory right renal artery are somewhat diminutive but otherwise unremarkable on image 108. No acute vascular abnormality or active bleeding is seen. The liver, gallbladder, pancreas, spleen and adrenal glands appear unremarkable. There is a large peripelvic cyst measuring 9 cm on image 118. There are numerous nonobstructing renal calculi measuring up to 10 mm in the lateral midpole. There is a 9 mm stone in the posterior midpole of the left kidney. Left renal cysts measure up to 3.6 cm in the posterior lower pole. The left kidney is otherwise unremarkable. There are gas and fluid-filled distended small bowel loops extending into the lateral right upper pelvis where a transition point is seen on images 156 through 158 of series 4. The small bowel becomes decompressed with wall thickening at this level, extending to the neoterminal ileum. There are prominent aortic calcifications without aneurysm. The IVC appears normal. Surgical scarring is seen in the subcutaneous fat of the anterior abdominal wall. CTA PELVIS: No acute vascular injury or active bleeding is seen. Fairly prominent atherosclerotic calcifications are noted. There appears to be prior removal of the cecum with anastomosis near the ileocecal junction. Inflammatory changes are noted in the terminal ileum. There is scattered pancolonic diverticulosis, most prominent in the sigmoid. The prostate is enlarged. The urinary bladder is unremarkable. No free fluid, loculated fluid, free air or soft tissue gas is seen in the abdomen or pelvis. There is fairly advanced degenerative disc disease at L5-S1. No acute osseous abnormality or suspicious bony lesion is seen. CT/CT angio chest IMPRESSION: 1. No acute pulmonary embolism, aortic dissection, or other acute findings in the chest. 2. No acute vascular abnormality in the abdomen or pelvis. 3. Small bowel obstruction with transition point in the lateral right upper pelvis. The small bowel becomes decompressed with wall thickening at this level, extending to the neoterminal ileum suspicious for acute exacerbation of the patient's known Crohn's disease. No other acute findings are seen in the abdomen or pelvis. 4. Prior cecal resection with anastomosis near the ileocecal junction. 5. Pancolonic diverticulosis. 6. Nonobstructing bilateral renal calculi. 7. Prostatomegaly. Additional nonemergent findings are present, as above. Electronically authenticated by: MARCELA SULLIVAN Date: 08/31/2024 04:06
[2024-08-31] MEDS: FAMOTIDINE/PF 20 MG/2 ML VIAL IV (03:11)
[2024-08-31] MEDS: 0.9 % SODIUM CHLORIDE 1,000 ML 1000 ML IV ×2 (03:59→05:19)
--- NOTE | 2024-08-31 04:34 | PC.NURSE ---
Pt will be held in the ER until Dr Godwin becomes available. Pt updated and is agreeable to this plan. Pt will have PRN pain medication on order if needed. Pt has no needs at this time.
--- NOTE | 2024-08-31 06:12 | ED_ITS ---
HPI HPI - General Adult General Chief complaint: Abdominal Pain Stated complaint: ABDOMINAL PAIN Time Seen by Provider: 08/31/24 02:22 Source: patient Mode of arrival: walk-in Limitations: no limitations History of Present Illness HPI narrative: Patient seen earlier in the evening. He has had nausea and increasing abdominal pain. Not passing gas. No bowel movement. Concerned he has small bowel obstruction. Related Data Home Medications ?Medication ?Instructions ?Recorded ?Confirmed lisinopril 5 mg tablet 40 mg PO DAILY 02/25/23 03/19/24 mesalamine 400 mg capsule (with 800 mg PO BID 02/25/23 03/19/24 delayed release tablets inside) ondansetron 8 mg disintegrating 8 mg PO Q8H PRN nausea and vomiting 09/02/23 03/19/24 tablet clonidine HCl 0.1 mg tablet 0.1 mg PO BID 03/19/24 03/19/24 metoprolol tartrate 100 mg tablet 100 mg PO BID 03/19/24 03/19/24 topiramate 50 mg tablet (Topamax) 50 mg PO DAILY 03/19/24 03/19/24 Previous Rx's ?Medication ?Instructions ?Recorded isosorbide mononitrate 30 mg 30 mg PO QAM #30 tabs 03/14/23 tablet,extended release 24 hr apixaban 5 mg tablet (Eliquis) 10 mg (2 x 5 mg) PO BID #60 tabs 03/20/24 oxycodone-acetaminophen 5 mg-325 1 tab PO Q6H PRN pain #12 tabs 08/30/24 mg tablet (Percocet) prednisone 10 mg tablet 10 mg PO DAILY #42 tabs 08/30/24 Allergies Allergy/AdvReac Type Severity Reaction Status Date / Time Fish Containing Products AdvReac Severe Abdominal Verified 08/31/24 02:45 Pain Opioid HPI Opioid Management Most Recent Opioid Data: Last Pain Scale 10 08/31/24 02:56 08/31/24 Last ED Pain Assessment 08/31/24 02:56 Last ORT Total Score 0 03/19/24 21:48 03/19/24 Last ORT Risk Category Low Risk 03/19/24 21:48 03/19/24 Review of Systems ROS Status of ROS 10 or more systems reviewed and unremark able except as noted in history and below [facility] Medical History (Updated 08/31/24 @ 06:19 by Warner Su MD) Pulmonary embolism ?I26.99 - Other pulmonary embolism without acute cor pulmonale (ICD-10) Chest pain ?R07.9 - Chest pain, unspecified (ICD-10) DVT (deep venous thrombosis) ?I82.409 - Acute embolism and thrombosis of unspecified deep veins of unspecified lower extremity (ICD-10) Dehydration ?E86.0 - Dehydration (ICD-10) DAVID (acute kidney injury) ?N17.9 - Acute kidney failure, unspecified (ICD-10) Abdominal pain ?R10.9 - Unspecified abdominal pain (ICD-10) Nausea & vomiting ?R11.2 - Nausea with vomiting, unspecified (ICD-10) Hypertension ?I10 - Essential (primary) hypertension (ICD-10) Crohn disease ?K50.90 - Crohn's disease, unspecified, without complications (ICD-10) Surgical History (Updated 03/19/24 @ 21:43 by Shani Coyne) H/O hernia repair ?Z98.890 - Other specified postprocedural states (ICD-10) ?Z87.19 - Personal history of other diseases of the digestive system (ICD-10) History of bowel resection ?Z90.49 - Acquired absence of other specified parts of digestive tract (ICD- 10) Family History (Updated 03/13/23 @ 20:02 by Bita Cyr RN) Father Family history of COPD (chronic obstructive pulmonary disease) Family history of diabetes mellitus Family history of myocardial infarction Brother Family history of cancer Mother Family history of diabetes mellitus Other Family history of hypertension Social History Within the past year, how often did you have a drink containing alcohol: 2-3 times a week Within the past year, how many standard drinks containing alcohol did you have on a typical day: 1 or 2 Within the past year, how often did you have six or more drinks on one occasion: never Total score: 0 Score interpretation: A score less than 4 is consistent with normal alcohol consumption. 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 Little interest or pleasure in doing things: not at all Feeling down, depressed, or hopeless: not at all Feel stressed/tense/nervous/anxious/difficulty sleeping: not at all Do you think of yourself as: straight/heterosexual Gender Identity: male Exam Narrative Exam Narrative: VITALS: I have reviewed the triage vital signs. GENERAL: Well developed, well appearing adult in no acute distress. NEURO: Alert and oriented. Moves all extremities. Face is symmetric and expressive. EYES: PERRL. No scleral icterus or conjunctival injection. No discharge. HENT: Normocephalic, atraumatic. Hearing is grossly intact. Nares grossly patent and without discharge. Mucous membranes moist. NECK: No JVD. Patient moves neck without restriction. CARDIO: Rhythm regular. Normal rate. No murmur, rub, or gallop. Pulses equal bilaterally in the upper and lower extremity. No lower extremity edema. PULM: Lungs clear to auscultation in all orozco. No wheezes, rales, or rhonchi. No conversational dyspnea. No splinting, stridor, or accessory muscle use. GI/: Hypoactive bowel sounds. Distended abdomen. Generalized tenderness. EXTREMITIES: Symmetric muscle bulk. No joint swelling. No clubbing, cyanosis, or deformity. SKIN: Warm and dry. Normal turgor. No rash or lesions appreciated. PSYCH: Mood, affect, and interaction is appropriate to the setting. Constitutional Vital Signs, click to edit/add: Last Vital Signs Temp 97.5 F L 08/31/24 02:43 Pulse 83 08/31/24 06:10 Resp 16 08/31/24 06:10 BP 163/102 H 08/31/24 06:10 Pulse Ox 96 08/31/24 06:10 O2 Del Method Room Air 08/31/24 06:10 Course Vital Signs Vital signs: Vital Signs Temperature 97.5 F L 08/31/24 02:43 Pulse Rate 112 H 08/31/24 02:43 Respiratory Rate 20 08/31/24 02:43 Blood Pressure 176/80 H 08/31/24 02:43 Pulse Oximetry 96 08/31/24 02:43 Oxygen Delivery Method Room Air 08/31/24 02:43 Temperature 97.5 F L 08/31/24 02:43 Pulse Rate 83 08/31/24 06:10 Respiratory Rate 16 08/31/24 06:10 Blood Pressure 163/102 H 08/31/24 06:10 Pulse Oximetry 96 08/31/24 06:10 Oxygen Delivery Method Room Air 08/31/24 06:10 Medical Decision Making MDM Narrative Medical decision making narrative: 73-year-old male to the emergency department chief complaint of. Concern for SBO. Return visit for worsening pain. CT scan to be ordered patient also reports that he was on Eliquis for pulmonary embolisms, acute certain this could be related, requesting CTA. CTA chest: No acute findings CT abdomen: Small bowel obstruction with transition point in the right pelvis, secondary to inflamed disease. Patient already received a dose of steroids. Pain medications were given. Case discussed with Dr. Godwin who agrees admit the patient to his service. Medical Records Medical records reviewed: Yes I reviewed the patient's medical records Lab Data Lab results reviewed: Yes I reviewed the patient's lab results Imaging Data CT scan - abdomen: Attestation: I have reviewed the pertinent imaging results. Radiologist's impression: ITS Impressions Abdomen/Pelvis CT 08/31/24 02:23 IMPRESSION: 1. No acute pulmonary embolism, aortic dissection, or other acute findings in the chest. 2. No acute vascular abnormality in the abdomen or pelvis. 3. Small bowel obstruction with transition point in the lateral right upper pelvis. The small bowel becomes decompressed with wall thickening at this level, extending to the neoterminal ileum suspicious for acute exacerbation of the patient's known Crohn's disease. No other acute findings are seen in the abdomen or pelvis. 4. Prior cecal resection with anastomosis near the ileocecal junction. 5. Pancolonic diverticulosis. 6. Nonobstructing bilateral renal calculi. 7. Prostatomegaly. Additional nonemergent findings are present, as above. Electronically authenticated by: MARCELA SULLIVAN Date: 08/31/2024 04:06 Chest CTA 08/31/24 02:57 IMPRESSION: 1. No acute pulmonary embolism, aortic dissection, or other acute findings in the chest. 2. No acute vascular abnormality in the abdomen or pelvis. 3. Small bowel obstruction with transition point in the lateral right upper pelvis. The small bowel becomes decompressed with wall thickening at this level, extending to the neoterminal ileum suspicious for acute exacerbation of the patient's known Crohn's disease. No other acute findings are seen in the abdomen or pelvis. 4. Prior cecal resection with anastomosis near the ileocecal junction. 5. Pancolonic diverticulosis. 6. Nonobstructing bilateral renal calculi. 7. Prostatomegaly. Additional nonemergent findings are present, as above. Electronically authenticated by: MARCELA SULLIVAN Date: 08/31/2024 04:06 Discharge Plan Discharge Chief Complaint: Abdominal Pain Clinical Impression: Small bowel obstruction Patient Disposition: Admitted as Observation Time of Disposition Decision: 06:18 Condition: Good Prescriptions / Home Meds: No Action isosorbide mononitrate 30 mg tablet extended release 24 hr 30 mg PO QAM Qty: 30 11RF ondansetron 8 mg tablet,disintegrating 8 mg PO Q8H PRN (Reason: nausea and vomiting) clonidine HCl 0.1 mg tablet 0.1 mg PO BID topiramate [Topamax] 50 mg tablet 50 mg PO DAILY metoprolol tartrate 100 mg tablet 100 mg PO BID Eliquis 5 mg Tablet 10 mg PO BID Qty: 60 11RF Rx Instructions: 10 mg a day for 1 week then 5 mg po BID prednisone 10 mg tablet 10 mg PO DAILY Qty: 42 0RF Rx Instructions: Take six Tablets daily for two days. Take five tablets daily for two days. Take four tablets daily for two days. Take three tablets daily for two days. Take two tablets daily for two days. Take one tablet daily for two days. oxycodone-acetaminophen [Percocet] 5-325 mg tablet 1 tab PO Q6H PRN (Reason: pain) Qty: 12 0RF lisinopril 5 mg tablet 40 mg PO DAILY mesalamine 400 mg capsule (with del rel tablets) 800 mg PO BID Print Language: Bulgarian Referrals: Rodriguez Godwin MD [Primary Care Provider] - 1 week
--- NOTE | 2024-08-31 06:35 | PC.NURSE ---
Pt to be admitted to M/S room 231. 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 Pt aware of admission and is agreeable.
[2024-08-31] MEDS: HYDROMORPHONE HCL 0.5 MG/0.5 ML SYRINGE IV (06:40)
[2024-08-31] MEDS: ONDANSETRON PF 4 MG/2 ML VIAL IV (06:52)
--- OUTSIDE RECORDS SUMMARY | 2024-08-31 07:53 | XMS_ITS | CCD ---
Author Organization [facility] Care Team Providers Care Thread Dresser Name Role Phone DR BEHZAD CROCKER Primary Care Unavailable DANIEL ., JUNI Attending Unavailable DANIEL ., JUNI Admitting Unavailable DR ROBERT DAVENPORT V Consulting Unavailable PITER GROSSMAN Consulting Unavailable DANIEL ., JUNI Consulting Unavailable DIAB ., GRAYSON Consulting Unavailable ADITYA OATES Consulting Unavailable MD Lauren Godwin Primary Care Provider [phone] DO Ramiro Cortez Emergency Provider MD Lauren Godwin Primary Care Provider [phone] KYA Garrison Emergency Provider [phone] [employer], 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-BC Naima Phelan Emergency Provider Lauren Godwin Primary Care Unavailable Naima Boyd [...] adverse reactions 03-03-20 Gastrointestinal Upset [facility] (1 source) atorvastatin; Translations: [ATORVASTATIN] Drug Allergy 04-06-20 [facility] Repository Medications Current Medications Medication Drug [...] disease (2 sources) Atherosclerotic heart disease of [place] coronary artery without angina pectoris; Translations: [Atherosclerotic heart disease of [place] coronary artery without angina pectoris] 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; convulsions (1 source) Unspecified convulsions; Translations: [Unspecified convulsions] Onset: 08-09-2024 Episodic Essential hypertension (3 sources) Essential (primary) hypertension; Translations: [ESSENTIAL PRIMARY HYPERTENSION] Onset: 01-12-2023 Chronic Other aftercare (1 source) intermediate (current) use of systemic steroids; Translations: [HALFWAY USE OF SYSTEMIC STEROIDS] Onset: 01-12-2023 Episodic Other aftercare (1 source) Other rodent exterminator (current) drug therapy; Translations: [OTH HALFWAY CURRENT DRUG THERAPY] Onset: 01-12-2023 Episodic Other [...] 08-09-20 ABSOLUTE BASOPHIL 0.0 X10E9/L Normal 0.0-0.2 [facility] Comment on above: Performed By: #### 1 9123-9, 93501-6, CMP, 88544-0, 55792-6, CBCA, 5643-2, PINR #### [facility] ([id number]) [address] [place] [address] 32582 ABSOLUTE NEUTROPHIL 3.9 X10E9/L Normal 1.5-6.6 [facility] Comment on above: Performed By: #### 1 9123-9, 83721-3, CMP, 58071-9, 44062-0, CBCA, 5643-2, PINR #### [facility] ([id number]) [address] [place] [address] 99826 Basophils/100 WBC (Bld) 0.3 % Normal [facility] Comment on above: Performed By: #### 1 9123-9, 18839-1, CMP, 59088-8, 44576-1, CBCA, 5643-2, PINR #### [facility] ([id number]) [address] [place] [address] 35383 Eosinophils (Bld) [#/Vol] 0.1 10*3/uL Normal 0.0-0.4 [facility] Comment on above: Performed By: #### 1 9123-9, 20283-5, CMP, 02919-3, 20663-0, CBCA, 5643-2, PINR #### [facility] ([id number]) [address] [place] [address] 06278 Eosinophils/100 WBC (Bld) 1.4 % Normal [facility] Comment on above: Performed By: #### 1 23-9, 98160-6, CMP, 73652-2, 01459-0, CBCA, 5643-2, PINR #### [facility] ([id number]) [address] [place] [address] 44660 Erythrocyte distribution width (RBC) [Ratio] 13.0 % Normal 11.5-15.0 [facility] Comment on above: Performed By: #### 1 9123-9, 36585-4, CMP, 19766-1, 65953-5, CBCA, 5643-2, PINR #### [facility] ([id number]) [address] [place] [address] 47106 Hematocrit (Bld) [Volume fraction] 35.7 % Low 39-49 [facility] Comment on above: Performed By: #### 1 9123-9, 12126-0, CMP, 81945-4, 40032-4, CBCA, 5643-2, PINR #### [facility] ([id number]) [address] [place] [address] 28994 Hemoglobin (Bld) [Mass/Vol] 12.3 g/dL Low 13.0-17.0 [facility] Comment on above: Performed By: #### 1 9123-9, 20349-3, CMP, 14079-0, 01665-2, CBCA, 5643-2, PINR #### [facility] ([id number]) [address] [place] [address] 64253 Lymphocytes (Bld) [#/Vol] 1.1 10*3/uL Normal 1.0-3.5 [facility] Comment on above: Performed By: #### 1 9123-9, 29115-6, CMP, 47597-0, 69417-7, CBCA, 5643-2, PINR #### [facility] ([id number]) [address] [place] [address] 02456 Lymphocytes/100 WBC (Bld) 21.0 % Normal [facility] Comment on above: Performed By: #### 1 9123-9, 34553-0, CMP, 43114-0, 48094-7, CBCA, 5643-2, PINR #### [facility] ([id number]) [address] [place] [address] [place] [address] MCH (RBC) [Entitic mass] 33.2 pg Normal 27-34 [facility] Comment on above: Performed By: #### 1 9123-9, 02584-3, CMP, 28838-4, 42898-2, CBCA, 5643-2, PINR #### [facility] ([id number]) [address] [place] [address] 20463 MCHC (RBC) [Mass/Vol] 34.3 g/dL Normal 32-36 [facility] Comment on above: Performed By: #### 1 9123-9, 35009-1, CMP, 55333-5, 88361-1, CBCA, 5643-2, PINR #### [facility] ([id number]) [address] [place] [address] 13420 MCV (RBC) [Entitic vol] 97 fL Normal 80-100 [facility] Comment on above: Performed By: #### 1 9123-9, 14525-8, CMP, 79251-4, 58514-7, CBCA, 5643-2, PINR #### [facility] ([id number]) [address] [place] [address] 98909 Monocytes (Bld) [#/Vol] 0.2 10*3/uL Normal 0-0.9 [facility] Comment on above: Performed By: #### 1 9123-9, 87861-7, CMP, 67926-7, 69319-5, CBCA, 5643-2, PINR #### [facility] ([id number]) [address] [place] [address] 97988 Monocytes/100 WBC (Bld) 4.5 % Normal [facility] Comment on above: Performed By: #### 1 9123-9, 53335-4, CMP, 24735-5, 28004-2, CBCA, 5643-2, PINR #### [facility] ([id number]) [address] [place] [address] 75603 Neutrophils/100 WBC (Bld) 72.8 % Normal [facility] Comment on above: Performed By: #### 1 9123-9, 62108-0, CMP, 77099-4, 73009-2, CBCA, 5643-2, PINR #### [facility] ([id number]) [address] [place] [address] 47976 Platelet mean volume (Bld) [Entitic vol] 7.7 fL Normal 7-12 [facility] Comment on above: Performed By: #### 1 9123-9, 61286-3, CMP, 68769-7, 99623-0, CBCA, 5643-2, PINR #### [facility] ([id number]) [address] [place] [address] 81721 Platelets (Bld) [#/Vol] 208 10*3/uL Normal 150-450 [facility] Comment on above: Performed By: #### 1 9123-9, 34057-9, CMP, 85968-3, 50406-8, CBCA, 5643-2, PINR #### [facility] ([id number]) [address] [place] [address] 68865 RBC COUNT 3.69 X10E12/L Low 4.10-5.70 [facility] Comment on above: Performed By: #### 1 9123-9, 84048-3, CMP, 41842-5, 82331-6, CBCA, 5643-2, PINR #### [facility] ([id number]) [address] [place] [address] 52664 WBC (Bld) [#/Vol] 5.4 10*3/uL Normal 4.0-11.0 [facility] Comment on above: Performed By: #### 1 9123-9, 74419-5, CMP, 35337-9, 46411-5, CBCA, 5643-2, PINR #### [facility] ([id number]) [address] [place] [address] 46355 COMPREHENSIVE METABOLIC PANE [facility] 08-09-2024 Albumin [Mass/Vol] 3.5 g/dL Normal 3.2-5.3 [facility] Comment on above: Performed By: #### 1 9123-9, 17882-7, CMP, 02063-8, 91858-5, CBCA, 5643-2, PINR #### [facility] ([id number]) [address] [place] [address] 22067 ALP [Catalytic activity/Vol] 56 U/L Normal 39-130 [facility] Comment on above: Performed By: #### 1 9123-9, 79809-2, CMP, 08409-7, 81634-3, CBCA, 5643-2, PINR #### [facility] ([id number]) [address] [place] [address] 00947 ALT [Catalytic activity/Vol] 25 U/L Normal 0-40 [facility] Comment on above: Performed By: #### 1 9123-9, 80189-7, CMP, 78625-3, 95756-1, CBCA, 5643-2, PINR #### [facility] ([id number]) [address] [place] [address] 35877 Anion gap [Moles/Vol] 7 mmol/L Normal 5-15 [facility] Comment on above: Performed By: #### 1 9123-9, 90081-7, CMP, 75497-9, 90562-8, CBCA, 5643-2, PINR #### [facility] ([id number]) [address] [place] [address] 49189 AST [Catalytic activity/Vol] 19 U/L Normal 0-41 [facility] Comment on above: Performed By: #### 1 9123-9, 60173-0, CMP, 33433-8, 05183-1, CBCA, 5643-2, PINR #### [facility] ([id number]) [address] [place] [address] 06462 Bilirubin [Mass/Vol] 0.4 mg/dL Normal 0.3-1.2 [facility] Comment on above: Performed By: #### 1 9123-9, 41804-7, CMP, 59290-3, 73797-8, CBCA, 5643-2, PINR #### [facility] ([id number]) [address] [place] [address] 03272 Calcium [Mass/Vol] 8.8 mg/dL Normal 8.5-10.5 [facility] Comment on above: Performed By: #### 1 9123-9, 94340-7, CMP, 60875-8, 02520-6, CBCA, 5643-2, PINR #### [facility] ([id number]) [address] [place] [address] 91686 Chloride [Moles/Vol] 108 mmol/L Normal 98-109 [facility] Comment on above: Performed By: #### 1 9123-9, 09960-8, CMP, 91381-2, 22879-1, CBCA, 5643-2, PINR #### [facility] ([id number]) [address] [place] [address] 57710 CO2 [Moles/Vol] 23 mmol/L Normal 22-32 [facility] Comment on above: Performed By: #### 1 9123-9, 11039-7, CMP, 42127-0, 52302-3, CBCA, 5643-2, PINR #### [facility] ([id number]) [address] [place] [address] 29911 Creatinine [Mass/Vol] 1.37 mg/dL High 0.70-1.20 [facility] Comment on above: Result Comment: METH OD TRACEABLE TO IDMS STANDARD Performed By: #### 1 9123-9, 33536-3, CMP, 98329-0, 65523-7, CBCA, 5643-2, PINR #### [facility] ([id number]) [address] [place] [address] 84540 GFR/1.73 sq M.predicted among non-blacks MDRD (S/P/Bld) [Vol rate/Area] 54 mL/min/{1.73_m2} Low >59 [facility] Comment on above: Result Comment: Reported eGFR is based on the CKD-EPI 1 equation that does not use a race coefficient. Performed By: #### 1 9123-9, 31470-4, CMP, 74665-7, 94092-7, CBCA, 5643-2, PINR #### [facility] ([id number]) [address] [place] [address] 09512 Glucose [Mass/Vol] 155 mg/dL High 65-99 [facility] Comment on above: Performed By: #### 1 9123-9, 22819-4, CMP, 15860-2, 85972-0, CBCA, 5643-2, PINR #### [facility] ([id number]) [address] [place] [address] 58109 Potassium [Moles/Vol] 4.3 mmol/L Normal 3.5-5.0 [facility] Comment on above: Performed By: #### 1 9123-9, 43048-1, CMP, 57258-0, 57632-0, CBCA, 5643-2, PINR #### [facility] ([id number]) [address] [place] [address] 23539 Protein [Mass/Vol] 6.0 g/dL Normal 6.0-8.0 [facility] Comment on above: Performed By: #### 1 9123-9, 03930-7, CMP, 89390-3, 11981-3, CBCA, 5643-2, PINR #### [facility] ([id number]) [address] [place] [address] 77359 Sodium [Moles/Vol] 138 mmol/L Normal 134-146 [facility] Comment on above: Performed By: #### 1 9123-9, 25935-6, CMP, 00530-2, 25341-1, CBCA, 5643-2, PINR #### [facility] ([id number]) [address] [place] [address] 43105 Urea nitrogen [Mass/Vol] 25 mg/dL Normal 5-27 [facility] Comment on above: Performed By: #### 1 9123-9, 92435-4, CMP, 11340-0, 87520-9, CBCA, 5643-2, PINR #### [facility] ([id number]) [address] [place] [address] BRAIN WO CONTon CT BRAIN WO [...] Moran MD on 08/09/2024 12:54 PM Normal [facility] DRUG SCREEN, URINEon 024 AMPHETAMINE/METHAMP Negative Normal NEG [facility] Comment on above: Result Comment: AMPH /METH screening cut off = 1000 ng/mL Performed By: #### 1 9123-9, 23774-6, CMP, 75771-4, 43536-5, CBCA, 5643-2, PINR #### [facility] ([id number]) [address] [place] [address] 41846 BARBITURATES Negative Normal NEG [facility] Comment on above: Result Comment: Maria Eugenia iturates screening cut off value = 200 ng/mL Performed By: #### 1 9123-9, 93130-7, CMP, 14388-1, 26792-2, CBCA, 5643-2, PINR #### [facility] ([id number]) [address] [place] [address] 02846 BENZODIAZEPINES Negative Normal NEG [facility] Comment on above: Result Comment: Paulie odiazepines screening cut off value = 200 ng/mL Performed By: #### 1 9123-9, 53385-6, CMP, 77577-1, 37100-0, CBCA, 5643-2, PINR #### [facility] ([id number]) [address] [place] [address] 25075 CANNABINOIDS Negative Normal NEG [facility] Comment on above: Result Comment: Nora abinoids/THC screening cut off value = 50 ng/mL Performed By: #### 1 9123-9, 92887-9, CMP, 22955-1, 14133-1, CBCA, 5643-2, PINR #### [facility] ([id number]) [address] [place] [address] 06483 COCAINE METABOLITE Negative Normal NEG [facility] Comment on above: Result Comment: Coca ine screening cut off value = 300 ng/mL Performed By: #### 1 9123-9, 04730-8, [facility], 93542-7, 29502-5, CBCA, 5643-2, PINR #### [facility] ([id number]) [address] [place] [address] 11594 ECSTASY Negative Normal NEG [facility] Comment on above: Result Comment: Ecst asy screening cut off value = 500 ng/mL This report is intended for use in clinical monitoring or management of patients. Performed By: #### 1 9123-9, 94782-2, [facility], 39986-8, 41772-4, CBCA, 5643-2, PINR #### [facility] ([id number]) [address] [place] [address] 01440 METHADONE Negative Normal NEG [facility] Comment on above: Result Comment: Meth adone screening cut off value = 300 ng/mL. Performed By: #### 1 9123-9, 05849-2, CMP, 31784-9, 71537-8, CBCA, 5643-2, PINR #### [facility] ([id number]) [address] [place] [address] 26168 OPIATES Negative Normal NEG [facility] Comment on above: Result Comment: Opia brennen screening cut off value = 300 ng/mL NOTE: This test is used for the detection of codeine, hydrocodone (>1000 ng/mL), morphine and hydromorphone (>900 ng/mL) in urine. Performed By: #### 1 9123-9, 43699-1, CMP, 31192-5, 71707-4, CBCA, 5643-2, PINR #### [facility] ([id number]) [address] [place] [address] 19699 OXYCODONE Negative Normal NEG [facility] Comment on above: Result Comment: Oxyc odone screening cut off value = 300 ng/mL NOTE: This test is used for the detection of oxycodone and oxymorphone in urine. Performed By: #### 1 9123-9, 79047-7, [facility], 55485-4, 09800-5, CBCA, 5643-2, PINR #### [facility] ([id number]) [address] [place] [address] 98496 PHENCYCLIDINE Negative Normal NEG [facility] Comment on above: Result Comment: Phen cyclidine screening cut off value = 25 ng/mL Performed By: #### 1 9123-9, 48583-4, [facility], 20085-7, 50655-8, CBCA, 5643-2, PINR #### [facility] ([id number]) [address] [place] [address] 89378 ETHANOLon 08-09-2024 Ethanol [Mass/Vol] mg/dL Normal 0.00-0.08 [facility] Comment on above: Result Comment: This report is intended for use in clinical monitoring or management of patients. Performed By: #### 1 9123-9, 79395-0, CMP, 97946-9, 22556-2, CBCA, 5643-2, PINR #### [facility] ([id number]) [address] [place] [address] [place] [address] Fibrin D-dimer DDU (PPP) [Ma ss/Vol]on 08-09-2024 D DIMER 167 ng/mL DDU Normal <255 [facility] Comment on above: Result Comment: Results <255 ng/mL DDU: The presence of a VTE can safely be excluded with a negative D-Dimer result and Wells score. A negative result doesn't exclude the possibility of DIC. The test be repeated along with other diagnostic tests if the patient's symptoms persist or worsen. [email or web address] Performed By: #### 1 9123-9, 43548-9, CMP, 79386-2, 50144-6, CBCA, 5643-2, PINR #### [facility] ([id number]) [address] [place] [address] 97308 MAGNESIUMon 08-09-2024 Magnesium [Mass/Vol] 1.4 mg/dL Low 1.8-2.6 [facility] Comment on above: Performed By: #### 1 9123-9, 12204-0, [facility], 30413-9, 84501-1, CBCA, 5643-2, PINR #### [facility] ([id number]) [address] [place] [address] 71312 PROTIME AND INRon 08-09-2024 INR Coag (PPP) [Relative time] 1.2 {INR} High 0.8-1.1 [facility] Comment on above: Performed By: #### 1 9123-9, 35621-2, CMP, 03889-3, 47182-2, CBCA, 5643-2, PINR #### [facility] ([id number]) [address] [place] [address] 67275 PT Coag (PPP) [Time] 14.3 s High 9.8-13.2 [facility] Comment on above: Result Comment: NEW REFERENCE RANGE Performed By: #### 1 9123-9, 79112-5, CMP, 91166-5, 43344-9, CBCA, 5643-2, PINR #### [facility] ([id number]) [address] [place] [address] 46441 Troponin I.cardiac High sens itivity method [Mass/Vol]on 08-09-2024 1 HOUR TROP I, HIGH SENSITIVITY 10 ng/L Normal <21 [facility] Comment on above: Performed By: #### 1 9123-9, 10151-1, CMP, 76638-7, 36713-9, CBCA, 5643-2, PINR #### [facility] ([id number]) [address] [place] [address] 28930 TROPONIN I, HIGH SENSITIVITY 8 ng/L Normal <21 [facility] Comment on above: Performed By: #### 1 9123-9, 54745-3, CMP, 16525-3, 31776-4, CBCA, 5643-2, PINR #### [facility] ([id number]) [address] [place] [address] 76162 URINALYSISon 08-09-2024 Bilirubin Ql (U) Negative Normal NEG [facility] Comment on above: Performed By: #### 1 9123-9, 70800-9, CMP, 49051-7, 77723-9, CBCA, 5643-2, PINR #### [facility] ([id number]) [address] [place] [address] 34184 BLOOD/HGB Negative Normal NEG [facility] Comment on above: Performed By: #### 1 9123-9, 90178-9, CMP, 67314-4, 32023-3, CBCA, 5643-2, PINR #### [facility] ([id number]) [address] [place] [address] 76197 Color (U) YELLOW Normal YELLOW [facility] Comment on above: Performed By: #### 1 9123-9, 86721-2, CMP, 49542-8, 63789-2, CBCA, 5643-2, PINR #### [facility] ([id number]) [address] [place] [address] 26542 Glucose Ql (U) Negative Normal NEG [facility] Comment on above: Performed By: #### 1 9123-9, 07535-8, CMP, 01273-9, 87861-0, CBCA, 5643-2, PINR #### [facility] ([id number]) [address] [place] [address] 13115 Ketones Ql (U) Negative Normal NEG [facility] Comment on above: Performed By: #### 1 9123-9, 84281-2, CMP, 67104-2, 38319-7, CBCA, 5643-2, PINR #### [facility] ([id number]) [address] [place] [address] [place] [address] Leukocyte esterase Test strip Ql (U) Negative Normal NEG [facility] Comment on above: Performed By: #### 1 9123-9, 42417-3, CMP, 67523-2, 30418-5, CBCA, 5643-2, PINR #### [facility] ([id number]) [address] [place] [address] 60034 Nitrite Ql (U) Negative Normal NEG [facility] Comment on above: Performed By: #### 1 9123-9, 54079-8, CMP, 87281-0, 36478-0, CBCA, 5643-2, PINR #### [facility] ([id number]) [address] [place] [address] 68311 pH (U) 6.0 [pH] Normal 5.0-8.5 [facility] Comment on above: Performed By: #### 1 9123-9, 43885-1, CMP, 57666-0, 66394-1, CBCA, 5643-2, PINR #### [facility] ([id number]) [address] [place] [address] 55455 Protein Ql (U) Negative Normal NEG [facility] Comment on above: Performed By: #### 1 9123-9, 84551-9, CMP, 11786-1, 55978-2, CBCA, 5643-2, PINR #### [facility] ([id number]) [address] [place] [address] 35805 Specific gravity (U) [Rel density] 1.025 Normal 1.003-1.03 5 [facility] Comment on above: Performed By: #### 1 9123-9, 64516-8, CMP, 27951-0, 77567-4, CBCA, 5643-2, PINR #### [facility] ([id number]) [address] [place] [address] 76607 TURBIDITY CLEAR Normal CLEAR [facility] Comment on above: Performed By: #### 1 9123-9, 52815-3, CMP, 27461-0, 93857-6, CBCA, 5643-2, PINR #### [facility] ([id number]) [address] [place] [address] 41877 Urobilinogen Qn (U) 0.2 {Temo'U}/dL Normal <1.1 [facility] Comment on above: Performed By: #### 1 9123-9, 37966-5, CMP, 19890-0, 32224-4, CBCA, 5643-2, PINR #### [facility] ([id number]) [address] [place] [address] 83153 URN MACROSCOPIC NURon 2023 BILIRUBIN FRANKLIN Negative Normal NEG [facility] Comment on above: Performed By: #### N UM #### [facility] ([id number]) [address] [place] [address] [place] [address] BLOOD/HGB FRANKLIN Negative Normal NEG [facility] Comment on above: Performed By: #### N UM #### [facility] ([id number]) [address] [place] [address], [place] [address] GLUCOSE [place] Negative Normal NEG [facility] Comment on above: Performed By: #### N UM #### [facility] ([id number]) [address] [place] [address], [place] [address] KETONES [place] Negative Normal NEG [facility] Comment on above: Performed By: #### N UM #### [facility] ([id number]) [address] [place] [address] [place] [address] LEUKOCYTE ESTERASE [place] Negative Normal NEG Pr [facility] Comment on above: Performed By: #### N UM #### [facility] ([id number]) [address] [place] [address], [place] [address] NITRITE [place] Negative Normal NEG [facility] Comment on above: Performed By: #### N UM #### [facility] ([id number]) [address] [place] [address], [place] [address] PH [place] 5.5 Normal 5.0-8.5 [facility] Comment on above: Performed By: #### N UM #### [facility] ([id number]) [address] [place] [address] [place] [address] PROTEIN [place] Negative Normal NEG [facility] Comment on above: Performed By: #### N UM #### [facility] ([id number]) [address] [place] [address], [place] [address] SPECIFIC GRAVITY [place] 1.020 Normal 1.003-1 .03 5 [facility] Comment on above: Performed By: #### N UM #### [facility] ([id number]) [address] [place] [address] UROBILINOGEN [place] 0.2 eu/dL Normal <1.1 [facility] Comment on above: Performed By: #### N UM #### [facility] ([id number]) [address] [place] [address] aPTT Coag (PPP) [Time]on aPTT Coag (Bld) [Time] 33 s Normal 26-37 [facility] Comment on above: Result Comment: NEW REFERENCE RANGE Performed By: #### 1 9123-9, 59769-6, CMP, 74742-4, 97297-4, CBCA, 5643-2, PINR #### [facility] ([id number]) [address] [place] [address] 36on 04-18-2024 36 From: Jessica muñoz MD Sent: 04/18/2024 12:32 PM EDT To: Yuridia Nuñez MA Subject: RE: Scan Please inform him that blood testing for clotting disorder is negative. He should follow up with Dr Godwin for cancer screening. Pt has been notified [facility] Office Visiton 04-06-2024 Follow-up visit [id number] Jeb Riddle 1950 M Date Provider Department Center 04/06/2024 JESSICA JAMISON [facility] [place] [facility] Family History Problem Relation Age of Onset Diabetes Mother Coronary artery disease Mother Heart attack Father Diabetes Father Coronary artery disease Father Family Status - Relation Status Age at Mother Father Level of Service:71599 [place] OFFICE/OUTPATIENT ESTABLISHED MOD MDM 30 MIN [facility] 3602-17-2024 36 Patient called back and said he is taking meds as prescribed at last visit with Dr. Forrester. I made him apt with Dr. Forrester end of Mar since he is not here in Apr. [facility] 36on 02-15-2024 36 Regarding echo from 02/02/2024: MD Yuridia Herman MA Has he been taking meds as I recommended at last visit? 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 He should come for a visit in 3 months. LM w/ sister Mary to return my call. Normal [facility] Activated partial thrombopla stin time (aPTT) in platelet poor plasma by coagulation aOrdered By: Naima Boyd on 01-09-2024 aPTT Coag (PPP) [Time] 29.1 s 25.1-36.5 [facility] Comment on above: A hematocrit value g reater than 55% may lead to inaccurate results in coagulation testing. Patients having hematocrit values >55% require a special collection tube for coagulation studies. Please contact the laboratory at [phone] for redraw instructions. B-Type Natriuretic Peptideon 01-09-2024 Natriuretic peptide B (Bld) [Mass/Vol] 172.0 pg/mL High 5-100 [facility] Comment on above: Result Comment: PERF ORMED BY: [facility] [address] [place] [id number] PATHOLOGIST RN CONCURRENT REVIEW RADHA BARRON M.D. Performed By: #### B BLADE FILER, HS TROP, BMP, CK, DIFF CBC ####[address] Basic Metabolic Panelon 12-14 Anion gap [Moles/Vol] Not performed Normal 6.0-15.0 [facility] Comment on above: Performed By: #### B BLADE FILER, HS TROP, BMP, CK, DIFF CBC ####[place] [id number] [facility] Calcium [Mass/Vol] 8.7 mg/dL Normal 8.6-10.3 [facility] Comment on above: Performed By: #### B BLADE FILER, HS TROP, BMP, CK, DIFF CBC ####[address] Chloride [Moles/Vol] 109 mmol/L High 98-107 [facility] Comment on above: Performed By: #### B BLADE FILER, HS TROP, BMP, CK, DIFF CBC ####[place] [id number] [place] CO2 [Moles/Vol] 22.4 mmol/L Normal 21.0-31.0 [facility] Comment on above: Performed By: #### B BLADE FILER, HS TROP, BMP, CK, DIFF CBC ####[address] Creatinine [Mass/Vol] 1.16 mg/dL Normal 0.70-1.30 [facility] Comment on above: Performed By: #### B BLADE FILER, HS TROP, BMP, CK, DIFF CBC ####[address] Creatinine Clr Calc Pharmacy 64.96 Normal [facility] Comment on above: Result Comment: PERF ORMED BY: [facility] [address] [place] [address] PATHOLOGIST RN CONCURRENT REVIEW RADHA BARRON M.D. Performed By: #### B BLADE FILER, HS TROP, BMP, CK, DIFF CBC ####[address] GFR/1.73 sq M.predicted MDRD (S/P/Bld) [Vol rate/Area] mL/min/{1.73_m2} Normal [facility] Comment on above: Performed By: #### B BLADE FILER, HS TROP, BMP, CK, DIFF CBC ####[address] Glucose [Mass/Vol] 95 mg/dL Normal 70-100 [facility] Comment on above: Result Comment: [place] Glucose Reference Range is dependent on time and content of last meal. Glucose of more than 200 mg/dL in a nonstressed, ambulatory subject supports the diagnosis of Diabetes Mellitus. ADA recommended reference range Performed By: #### B BLADE FILER, HS TROP, BMP, CK, DIFF CBC ####[address] Potassium Normal 3.5-5.1 [facility] Comment on above: Result Comment: Spec imen hemolyzed, redraw requested Performed By: #### B BLADE FILER, HS TROP, BMP, CK, DIFF CBC ####[facility] [id number] Sodium [Moles/Vol] 142 mmol/L Normal 136-145 [facility] Comment on above: Performed By: #### B BLADE FILER, HS TROP, BMP, CK, DIFF CBC ####[facility] Cex[address] Urea nitrogen [Mass/Vol] 20 mg/dL Normal 7-25 [facility] Comment on above: Performed By: #### B BLADE FILER, HS TROP, BMP, CK, DIFF CBC ####[facility] Dct19[address] Basophils Auto (Bld) [#/Vol] Ordered By: Naima Bullimore on 01-09-2024 Basophils (Bld) [#/Vol] N/A [facility] Basophils/100 WBC Auto (Bld) Ordered By: Naima Bullimore on 01-09-2024 Basophils/100 WBC (Bld) N/A [facility] Basophils/100 WBC Manual cnt (Bld)Ordered By: Naima Godwinimore on 01-09-2024 Basophils/100 WBC (Bld) 0 % 0-[address] [facility] [address] angio chest PE protocolon 01-09-2024 CT angio chest PE protocol [facility] [place] [address] CT Scan Report Signed Patient: Jeb Riddle MR#: [id number] : 1950 Acct:[id number] Age/Sex: 73 / M ADM Date: 01/09/24 Loc: ER Room: Type: [facility] ER Attending Dr: Copies to: SABA [...] Jeb Collins M.D.01/09/2024 6:17 PM Dictation Location: [place] [address] Transcribed By: [facility] 01/09/241816 Dictated By: Jeb Collins II, MD 01/09/241810 Signed By: 01/09/241816 Normal [facility] Calcium [Mass/volume] in Ser um or PlasmaOrdered By: Naima Boyd on 01-09-2024 Calcium [Mass/Vol] 8.7 mg/dL 8.6-10.3 [facility] Carbon dioxide, total [Moles /volume] in Serum or PlasmaOrdered By: Naima Boyd on 01-09-2024 CO2 [Moles/Vol] 22.4 mmol/L 21.0-31.0 [facility] Chloride [Moles/volume] in S pooja or PlasmaOrdered By: Naima Boyd on 01-09-2024 Chloride [Moles/Vol] 109 mmol/L 98-107 [facility] Coagulation Profileon 2023 aPTT Coag (Bld) [Time] 29.1 s Normal 25.1-36.5 [facility] Comment on above: Order Comment: REDRA W Result Comment: A he matocrit value greater than 55% may lead to inaccurate results in coagulation testing. Patients having hematocrit values >55% require a special collection tube for coagulation studies. Please contact the laboratory at [phone] for redraw instructions. Performed By: #### P P, DDIMER ####[place] [address] [place] [address] [facility] INR Coag (PPP) [Relative time] 1.0 {INR} Normal [facility] Comment on above: [...] 4.5 Performed By: #### P P, DDIMER ####[place] [address] [place] [id number] [facility] PT Coag (PPP) [Time] 11.9 s Normal 9.0-12.9 [facility] Comment on above: Order Comment: REDRA W Result Comment: A he matocrit value greater than 55% may lead to inaccurate results in coagulation testing. Patients having hematocrit values >55% require a special collection tube for coagulation studies. Please contact the laboratory at [phone] for redraw instructions. Performed By: #### P P, DDIMER ####[address] [address] [facility] Creatine Kinaseon 01-09-2024 CK [Catalytic activity/Vol] 81 U/L Normal 30-223 [facility] Comment on above: Performed By: #### B BLADE FILER, HS TROP, BMP, CK, DIFF CBC ####[place] [address] [place] [id number] [facility] Creatine kinase [Enzymatic a ctivity/volume] in Serum or PlasmaOrdered By: Naima Boyd on 01-09-2024 CK [Catalytic activity/Vol] 81 U/L 30-223 [facility] Creatinine [Mass/volume] in Serum or PlasmaOrdered By: Naima Boyd on 01-09-2024 Creatinine [Mass/Vol] 1.16 mg/dL 0.70-1.30 [facility] D-Dimer High Sensitivityon 0 01-09-2024 D-Dimer High Sensitivity 1905 ng/mL High 0-243 [facility] Comment on above: [...] coagulation studies. Please contact the laboratory at [phone] for redraw instructions. PERFORMED BY: [facility] [address] [place] [address] PATHOLOGIST RN CONCURRENT REVIEW RADHA BARRON M.D. Performed By: #### P P, DDIMER ####[place] [id number] [place] [id number] [facility] Diff and CBCon 01-09-2024 Basophils/100 WBC (Bld) 0 % Normal 0-2 [facility] Comment on above: Performed By: #### B BLADE FILER, HS TROP, BMP, CK, DIFF CBC ####[place] [id number] [facility] Eosinophils/100 WBC (Bld) 4 % High 1-3 [facility] Comment on above: Performed By: #### B BLADE FILER, HS TROP, BMP, CK, DIFF CBC ####[address] Erythrocyte distribution width (RBC) [Ratio] 14.9 % High 12.0-14.8 [facility] Comment on above: Performed By: #### B BLADE FILER, HS TROP, BMP, CK, DIFF CBC ####[address] Hematocrit (Bld) [Volume fraction] 41.9 % Normal 38.8-50.0 [facility] Comment on above: Performed By: #### B BLADE FILER, HS TROP, BMP, CK, DIFF CBC ####[address] Hemoglobin (Bld) [Mass/Vol] 14.1 g/dL Normal 13.0-17.0 [facility] Comment on above: Performed By: #### B BLADE FILER, HS TROP, BMP, CK, DIFF CBC ####[address] Lymphocytes/100 WBC (Bld) 27 % Normal 18-42 [facility] Comment on above: Performed By: #### B BLADE FILER, HS TROP, BMP, CK, DIFF CBC ####[address] MCH (RBC) [Entitic mass] 32.0 pg Normal 27.5-35.2 [facility] Comment on above: Performed By: #### B BLADE FILER, HS TROP, BMP, CK, DIFF CBC ####[address] MCV (RBC) [Entitic vol] 95.1 fL Normal 83.5-101 [facility] Comment on above: Performed By: #### B BLADE FILER, HS TROP, BMP, CK, DIFF CBC ####[address] Mean Corpuscular HGB Conc 33.6 g/dL Normal 32.5-35.6 [facility] Comment on above: Performed By: #### B BLADE FILER, HS TROP, BMP, CK, DIFF CBC ####[address] Monocytes/100 WBC (Bld) 25.58 % High 0.00-20.00 [facility] Comment on above: Result Comment: For adults in ED, MDW > 20.0 may be associated with a higher risk of sepsis during the first 12 hrs of hospital admission Performed By: #### B BLADE FILER, HS TROP, BMP, CK, DIFF CBC ####[address] Monocytes/100 WBC (Bld) 7 % Normal 2-11 [facility] Comment on above: Performed By: #### B BLADE FILER, HS TROP, BMP, CK, DIFF CBC ####[address] Nucleated Red Blood Cell 0 /100{WBC} Normal 0-0 [facility] Comment on above: Performed By: #### B BLADE FILER, HS TROP, BMP, CK, DIFF CBC ####[address] Platelet Estimate Normal Normal Normal [facility] Comment on above: Performed By: #### B BLADE FILER, HS TROP, BMP, CK, DIFF CBC ####[address] Platelet mean volume (Bld) [Entitic vol] 8.6 fL Normal 6.6-10.1 [facility] Comment on above: Performed By: #### B BLADE FILER, HS TROP, BMP, CK, DIFF CBC ####[address] Platelet Morphology Normal Normal Normal [facility] Comment on above: Performed By: #### B BLADE FILER, HS TROP, BMP, CK, DIFF CBC ####[address] Platelets (Bld) [#/Vol] 240 10*3/uL Normal 150-450 [facility] Comment on above: Performed By: #### B BLADE FILER, HS TROP, BMP, CK, DIFF CBC ####[address] Plt Comment SEE COMMENT BELOW Normal [facility] Comment on above: Result Comment: NO C LOTS, NO CLUMPS, SHORT DRAW LFM PERFORMED BY: [facility] [address] [place] [address] PATHOLOGIST RN CONCURRENT REVIEW RADHA BARRON M.D. Performed By: #### B BLADE FILER, HS TROP, BMP, CK, DIFF CBC ####[address] RBC (Bld) [#/Vol] 4.41 10*6/uL Normal 3.90-5.60 [facility] Comment on above: Performed By: #### B BLADE FILER, HS TROP, BMP, CK, DIFF CBC ####[address] RBC morphology finding Nom (Bld) Normal Normal Normal [facility] Comment on above: Performed By: #### B BLADE FILER, HS TROP, BMP, CK, DIFF CBC ####[address] Segmented neutrophils/100 WBC (Bld) 62 % Normal 50-70 [facility] Comment on above: Performed By: #### B BLADE FILER, HS TROP, BMP, CK, DIFF CBC ####[address] WBC (Bld) [#/Vol] 7.6 10*3/uL Normal 4.1-10.5 [facility] Comment on above: Performed By: #### B BLADE FILER, HS TROP, BMP, CK, DIFF CBC ####[address] WBC (Bld) [#/Vol] 8.4 10*3/uL Normal 4.1-10.5 [facility] Comment on above: Performed By: #### B BLADE FILER, HS TROP, BMP, CK, DIFF CBC ####[address] ECG 12 lead ECGon 01-09-2024 ECG 12 lead ECG [facility] [place] [address] Electrocardiograph Report Signed Patient: Jeb Riddle MR#: [id number] : 1950 Acct:[id number] Age/Sex: 73 / M ADM Date: 01/09/24 Loc: ER Room: Type: [facility] ER Attending Dr: Ordering Provider: SABA [...] By Adam Patterson DO 1828 Normal [facility] Eosinophils Auto (Bld) [#/Vo l]Ordered By: Naima Boyd on 01-09-2024 Eosinophils (Bld) [#/Vol] N/A [facility] Eosinophils/100 WBC Auto (Bl d)Ordered By: Naima Boyd on 01-09-2024 Eosinophils/100 WBC (Bld) N/A [facility] Eosinophils/100 WBC Manual c nt (Bld)Ordered By: Naima Boyd on 01-09-2024 Eosinophils/100 WBC (Bld) 4 % 1-3 [facility] Erythrocyte distribution wid th Auto (RBC) [Ratio]Ordered By: Naima Boyd on 01-09-2024 Erythrocyte distribution width (RBC) [Ratio] 14.9 % 12.0-14.8 [facility] Fibrin D-dimer [Presence] in Platelet poor plasma by Latex agglutinationOrdered By: Naima Boyd on 01-09-2024 Fibrin D-dimer LA Ql (PPP) 1905 ng/mL 0-243 [facility] Comment on above: The reference range [...] coagulation studies. Please contact the laboratory at [phone] for redraw instructions. Glucose [Mass/volume] in Ser um or PlasmaOrdered By: Naima Boyd on 01-09-2024 Glucose [Mass/Vol] 95 mg/dL 70-100 [facility] Comment on above: ADA recommended refe rence rangeRandom Glucose Reference Range is dependent on time and content of last meal. Glucose of more than 200 mg/dL in a nonstressed, ambulatory subject supports the diagnosis of Diabetes Mellitus. Hematocrit Auto (Bld) [Volum e fraction]Ordered By: Naima Boyd on 01-09-2024 Hematocrit (Bld) [Volume fraction] 41.9 % 38.8-50.0 [facility] Hemoglobin [Mass/volume] in BloodOrdered By: Naima Boyd on 01-09-2024 Hemoglobin (Bld) [Mass/Vol] 14.1 g/dL 13.0-17.0 [facility] INR in Platelet poor plasma by Coagulation assayOrdered By: Naima Boyd on 01-09-2024 INR Coag (PPP) [Relative time] 1.0 {INR} [facility] Comment on above: INR Therapeutic Rang [...] RBC Auto (Bld) [#/Vol] 7.6 10*3/uL 4.1-10.5 [facility] Lymphocytes Auto (Bld) [#/Vo l]Ordered By: Naima Bullimore on 01-09-2024 Lymphocytes (Bld) [#/Vol] N/A [facility] Lymphocytes/100 WBC Auto (Bl d)Ordered By: Naima Godwinimore on 01-09-2024 Lymphocytes/100 WBC (Bld) N/A [facility] Lymphocytes/100 WBC Manual c nt (Bld)Ordered By: Naima Godwinimore on 01-09-2024 Lymphocytes/100 WBC (Bld) 27 % 18-42 [facility] MCH Auto (RBC) [Entitic mass ]Ordered By: Naima Godwinimore on 01-09-2024 MCH (RBC) [Entitic mass] 32.0 pg 27.5-35.2 [facility] MCHC Auto (RBC) [Mass/Vol]Or dered By: Naima Godwinimore on 01-09-2024 MCHC (RBC) [Mass/Vol] 33.6 g/dL 32.5-35.6 [facility] MCV Auto (RBC) [Entitic vol] Ordered By: Naima Boyd on 01-09-2024 MCV (RBC) [Entitic vol] 95.1 fL 83.5-101 [facility] Monocyte distribution width [Entitic volume] in Blood by AutomatedOrdered By: Naima Boyd on 01-09-2024 Monocyte distribution width Auto (Bld) [Entitic vol] 25.58 % 0.00-20.00 [facility] Comment on above: For adults in ED, MD W > 20.0 may be associated with a higher risk of sepsis during the first 12 hrs of hospital admission Monocytes Auto (Bld) [#/Vol] Ordered By: Naima Rutherfordore on 01-09-2024 Monocytes (Bld) [#/Vol] N/A [facility] Monocytes/100 WBC Auto (Bld) Ordered By: Naima Bullimore on 01-09-2024 Monocytes/100 WBC (Bld) N/A [facility] Monocytes/100 WBC Manual cnt (Bld)Ordered By: Naima Bullimore on 01-09-2024 Monocytes/100 WBC (Bld) 7 % 2-11 [facility] Natriuretic peptide B [Mass/ Vol]Ordered By: Naima Bullimore on 01-09-2024 Natriuretic peptide B (Bld) [Mass/Vol] 172.0 pg/mL 5-100 [facility] Neutrophils Auto (Bld) [#/Vo l]Ordered By: Naima Bullimore on 01-09-2024 Neutrophils (Bld) [#/Vol] N/A [facility] Neutrophils/100 WBC Auto (Bl d)Ordered By: Naima Bullimore on 01-09-2024 Neutrophils/100 WBC (Bld) N/A [facility] No Panel InformationOrdered By: Naimadevora Godwinimore on 01-09-2024 Estimated GFR (CKD-EPI) > 60.0 mL/Min [facility] Creatinine Clearance (Chem 64.96 [facility] Platelet Comment See comment below F [facility] Comment on above: NO CLOTS, NO CLUMPS, SHORT DRAW LFM Nucleated RBC/100 WBC Manual cnt (Bld) [Ratio]Ordered By: Naima Bullimore on 01-09-2024 Nucleated RBC/100 WBC (Bld) [Ratio] 0 /100{WBC} 0-0 [facility] Nucleated erythrocytes [Pres ence] in Blood by Automated countOrdered By: Naimadevora Godwinimore on 01-09-2024 Nucleated RBC Auto Ql (Bld) N/A [facility] Platelet adequacy [Presence] in Blood by Light microscopyOrdered By: Naimadevora Godwinimore on 01-09-2024 Platelets LM Ql (Bld) Normal Normal Fir [facility] Platelet mean volume Auto (B ld) [Entitic vol]Ordered By: Naima Bullimore on 01-09-2024 Platelet mean volume (Bld) [Entitic vol] 8.6 fL 6.6-10.1 [facility] Platelet morphology finding [Identifier] in BloodOrdered By: Naima Boyd on 01-09-2024 Platelet morphology finding Nom (Bld) Normal Normal [facility] Platelets Auto (Bld) [#/Vol] Ordered By: Naima Bullimore on 01-09-2024 Platelets (Bld) [#/Vol] 240 10*3/uL 150-450 [facility] Potassium [Moles/volume] in Serum or PlasmaOrdered By: Naima Bullimore on 01-09-2024 Potassium [Moles/Vol] 3.9 mmol/L 3.5-5.1 [facility] Prothrombin time (PT)Ordered By: Naima Boyd on 01-09-2024 PT Coag (PPP) [Time] 11.9 s 9.0-12.9 [facility] Comment on above: A hematocrit value g reater than 55% may lead to inaccurate results in coagulation testing. Patients having hematocrit values >55% require a special collection tube for coagulation studies. Please contact the laboratory at [phone] for redraw instructions. RBC Auto (Bld) [#/Vol]Ordere d By: Naima Rutherfordore on 01-09-2024 RBC (Bld) [#/Vol] 4.41 10*6/uL 3.90-5.60 [facility] RBC morphologyOrdered By: Sabine Boyd on 01-09-2024 RBC morphology finding Nom (Bld) Normal Normal [facility] Redraw Potassiumon Potassium [Moles/Vol] 3.9 mmol/L Normal 3.5-5.1 [facility] Comment on above: Result Comment: PERF ORMED BY: [facility] [address] [place] [address] PATHOLOGIST RN CONCURRENT REVIEW RADHA BARRON M.D. Performed By: #### R TOYN Marcano ####[facility] [address] [place] [address] [facility] Segmented neutrophils/100 WB C Manual cnt (Bld)Ordered By: Naima Boyd on 01-09-2024 Segmented neutrophils/100 WBC (Bld) 62 % 50-70 [facility] Serum or plasma anion gap de terminationOrdered By: Naima Boyd on 01-09-2024 Anion gap [Moles/Vol] TNP Fir [facility] Comment on above: Test not performed Sodium [Moles/volume] in Ser um or PlasmaOrdered By: Naima Boyd on 01-09-2024 Sodium [Moles/Vol] 142 mmol/L 136-145 [facility] Troponin I High Sensitivityo n 01-09-2024 Troponin I High Sensitivity 13.1 pg/mL Normal 0.0-20.0 [facility] Comment on above: Result Comment: PERF ORMED BY: [place] [address] PATHOLOGIST RN CONCURRENT REVIEW RADHA BARRON M.D. Performed By: #### H S TROP #### [facility] [address] [place] [address] Troponin I High Sensitivity 12.5 pg/mL Normal 0.0-20.0 [facility] Comment on above: Result Comment: PERF ORMED BY: [facility] [address] [place] [address] PATHOLOGIST RN CONCURRENT REVIEW RADHA BARRON M.D. Performed By: #### B BLADE FILER, HS TROP, BMP, CK, DIFF CBC ####[facility] Etv[address] Troponin I.cardiac [Mass/vol ume] in Serum or Plasma by Detection limit <= 0.01 ng/Ordered By: Naima Boyd on 01-09-2024 Troponin I.cardiac DL <= 0.01 ng/mL [Mass/Vol] 13.1 pg/mL 0.0-20.0 [facility] Urea nitrogen [Mass/volume] in Serum or PlasmaOrdered By: Naima Boyd on 01-09-2024 Urea nitrogen [Mass/Vol] 20 mg/dL 7- [facility] WBC Auto (Bld) [#/Vol]Ordere d By: Naima Boyd on 01-09-2024 WBC (Bld) [#/Vol] 8.4 10*3/uL 4.1-10.5 [facility] XR chest 2V*on 01-09-2024 XR chest 2V* [facility] [address] [address] XRay Report Signed Patient: Jeb Riddle MR#: [id number] : 1950 Acct:[id number] Age/Sex: 73 / M ADM Date: 01/09/24 Loc: ER Room: Type: [facility] ER Attending Dr: Copies to: SABA [...] Jeb Collins M.D.01/09/2024 4:11 PM Dictation Location: [place] [address] Transcribed By: [facility] 01/09/24 1611 Dictated By: Jeb Collins II, MD 01/09/24 1610 Signed By: 01/09/24 1611 Normal [facility] ECG 12 lead ECGon 12-18-2023 ECG 12 lead ECG [facility] Main [address] [address] Electrocardiograph Report Signed Patient: Jeb Riddle MR#: [id number] : 1950 Acct:[id number] Age/Sex: 73 / M ADM Date: 12/18/23 Loc: ER Room: Type: [facility] ER Attending Dr: Ordering Provider: Marie [...] was found Confirmed by RAMIRO CORTEZ DO ([id number]) on 12/18/2023 4:44:01 PM Referred By: Electronically Signed By:RAMIRO CORTEZ DO Transcribed By: MUS Signed By Ramiro Cortez DO 12/17 1644 Normal [facility] Office Visiton 12-09-2023 Follow-up visit [id number] Jeb Riddle 1950 M Date Provider Department Center 12/09/2023 JESSICA JAMISON Family History Problem Relation Age of Onset Diabetes Mother Coronary artery disease Mother Heart attack Father Diabetes Father Coronary artery disease Father Family Status - Relation Status Age at Mother Father Level of Service:[id number] [place] OFFICE/OUTPATIENT ESTABLISHED MOD MDM 30 MIN Reason for Visit and Comments: Follow-up [008554] - 6 months Normal [facility] Office Visiton 06-07-2023 Follow-up visit [id number] Jeb Riddle 1950 M Date Provider Department Center 06/07/2023 SHIV SAAVEDRA Family History Problem Relation Age of Onset Diabetes Mother Coronary artery disease Mother Heart attack Father Diabetes Father Coronary artery disease Father Family Status - Relation Status Age at Mother Father Level of Service:82217 [place] OFFICE/OUTPATIENT NEW HIGH MDM 60-74 MINUTES Normal [facility] Office Visiton 05-27-2023 Follow-up visit [id number] Jeb Riddle 1950 M Date Provider Department Center 05/27/2023 JESSICA JAMISON Family History Problem Relation Age of Onset Diabetes Mother Coronary artery disease Mother Heart attack Father Diabetes Father Coronary artery disease Father Family Status - Relation Status Age at Mother Father Level of Service:00985 [place] OFFICE/OUTPATIENT ESTABLISHED MOD MDM 30-39 MIN Reason for Visit and Comments: Follow-up [522557] Coronary Artery Disease [187] Normal [facility] Activated partial thrombopla stin time (aPTT) in platelet poor plasma by coagulation aOrdered By: Ramiro Cortez on 03-03-2023 aPTT Coag (PPP) [Time] 29.7 s 25.1-36.5 [facility] B-Type Natriuretic Peptideon 03-03-2023 Natriuretic peptide B (Bld) [Mass/Vol] 52.0 pg/mL Normal 5-100 [facility] Comment on above: Result Comment: PERF ORMED BY: [facility] [address] [facility] [place] [id number] PATHOLOGIST RN CONCURRENT REVIEW RADHA BARRON M.D. Performed By: #### C BC, CK, PT, PTT, BMP, HS TROP, BNP ####[address] Basic Metabolic Panelon 02-13 Anion gap [Moles/Vol] 10.6 mmol/L Normal 6.0-15.0 [facility] Comment on above: Performed By: #### C BC, CK, PT, PTT, BMP, HS TROP, BNP ####[address] Calcium [Mass/Vol] 8.6 mg/dL Normal 8.6-10.3 [facility] Comment on above: Performed By: #### C BC, CK, PT, PTT, BMP, HS TROP, BNP ####[place] [id number] [facility] Chloride [Moles/Vol] 108 mmol/L High 98-107 [facility] Comment on above: Performed By: #### C BC, CK, PT, PTT, BMP, HS TROP, BNP ####[place] [id number] [facility] CO2 [Moles/Vol] 24.6 mmol/L Normal 21.0-31.0 [facility] Comment on above: Performed By: #### C BC, CK, PT, PTT, BMP, HS TROP, BNP ####[place] [id number] [facility] Creatinine [Mass/Vol] 1.19 mg/dL Normal 0.70-1.30 [facility] Comment on above: Performed By: #### C BC, CK, PT, PTT, BMP, HS TROP, BNP ####[address] Creatinine Clr Calc Pharmacy 55.29 Normal [facility] Comment on above: Result Comment: PERF ORMED BY: [facility] [address] [place] [address] PATHOLOGIST RN CONCURRENT REVIEW RADHA BARRON M.D. Performed By: #### C BC, CK, PT, PTT, BMP, HS TROP, BNP ####[address] GFR/1.73 sq M.predicted MDRD (S/P/Bld) [Vol rate/Area] mL/min/{1.73_m2} Normal [facility] Comment on above: Performed By: #### C BC, CK, PT, PTT, BMP, HS TROP, BNP ####[address] Glucose [Mass/Vol] 93 mg/dL Normal 70-100 [facility] Comment on above: Result Comment: [facility] Glucose Reference Range is dependent on time and content of last meal. Glucose of more than 200 mg/dL in a nonstressed, ambulatory subject supports the diagnosis of Diabetes Mellitus. ADA recommended reference range Performed By: #### C BC, CK, PT, PTT, BMP, HS TROP, BNP ####[address] Potassium [Moles/Vol] 4.2 mmol/L Normal 3.5-5.1 [facility] Comment on above: Performed By: #### C BC, CK, PT, PTT, BMP, HS TROP, BNP ####[address] Sodium [Moles/Vol] 139 mmol/L Normal 136-145 [facility] Comment on above: Performed By: #### C BC, CK, PT, PTT, BMP, HS TROP, BNP ####[address] Urea nitrogen [Mass/Vol] 17 mg/dL Normal 7-25 [facility] Comment on above: Performed By: #### C BC, CK, PT, PTT, BMP, HS TROP, BNP ####[facility] Basophils Auto (Bld) [#/Vol] Ordered By: Ramiro Cortez on 03-03-2023 Basophils (Bld) [#/Vol] 0.0 10*3/uL 0.0-0.2 [facility] Basophils/100 WBC Auto (Bld) Ordered By: Ramiro Cortez on 03-03-2023 Basophils/100 WBC (Bld) 0.4 % . [facility] Calcium [Mass/volume] in Ser um or PlasmaOrdered By: Ramiro Cortez on 03-03-2023 Calcium [Mass/Vol] 8.6 mg/dL 8.6-10.3 [facility] Carbon dioxide, total [Moles /volume] in Serum or PlasmaOrdered By: Ramiro Cortez on 03-03-2023 CO2 [Moles/Vol] 24.6 mmol/L 21.0-31.0 [facility] Chloride [Moles/volume] in S pooja or PlasmaOrdered By: Ramiro Cortez on 03-03-2023 Chloride [Moles/Vol] 108 mmol/L 98-107 [facility] Complete Blood Count Auto Di ffon 03-03-2023 Basophils (Bld) [#/Vol] 0.0 10*3/uL Normal 0.0-0.2 [facility] Comment on above: Result Comment: PERF ORMED BY: [facility] [address] [place] [address] PATHOLOGIST RN CONCURRENT REVIEW RADHA BARRON M.D. Performed By: #### C BC, CK, PT, PTT, BMP, HS TROP, BNP #### [facility] [address] Basophils/100 WBC (Bld) 0.4 % Normal . [facility] Comment on above: Performed By: #### C BC, CK, PT, PTT, BMP, HS TROP, BNP #### [address] Eosinophils (Bld) [#/Vol] 0.2 10*3/uL Normal 0.0-0.45 [facility] Comment on above: Performed By: #### C BC, CK, PT, PTT, BMP, HS TROP, BNP #### [address] Eosinophils/100 WBC (Bld) 2.4 % Normal . [facility] Comment on above: Performed By: #### C BC, CK, PT, PTT, BMP, HS TROP, BNP #### [address] Erythrocyte distribution width (RBC) [Ratio] 13.0 % Normal 12.0-14.8 [facility] Comment on above: Performed By: #### C BC, CK, PT, PTT, BMP, HS TROP, BNP #### [address] Hematocrit (Bld) [Volume fraction] 38.3 % Low 38.8-50.0 [facility] Comment on above: Performed By: #### C BC, CK, PT, PTT, BMP, HS TROP, BNP #### [address] Hemoglobin (Bld) [Mass/Vol] 12.9 g/dL Low 13.0-17.0 [facility] Comment on above: Performed By: #### C BC, CK, PT, PTT, BMP, HS TROP, BNP #### [address] Lymphocytes (Bld) [#/Vol] 2.6 10*3/uL Normal 1.00-4.8 [facility] Comment on above: Performed By: #### C BC, CK, PT, PTT, BMP, HS TROP, BNP #### [address] Lymphocytes/100 WBC (Bld) 28.3 % Normal . [facility] Comment on above: Performed By: #### C BC, CK, PT, PTT, BMP, HS TROP, BNP #### [address] MCH (RBC) [Entitic mass] 30.8 pg Normal 27.5-35.2 [facility] Comment on above: Performed By: #### C BC, CK, PT, PTT, BMP, HS TROP, BNP #### [address] MCV (RBC) [Entitic vol] 91.9 fL Normal 83.5-101 [facility] Comment on above: Performed By: #### C BC, CK, PT, PTT, BMP, HS TROP, BNP #### [address] Mean Corpuscular HGB Conc 33.6 g/dL Normal 32.5-35.6 [facility] Comment on above: Performed By: #### C BC, CK, PT, PTT, BMP, HS TROP, BNP #### [address] Monocytes (Bld) [#/Vol] 0.6 10*3/uL Normal 0.0-0.8 [facility] Comment on above: Performed By: #### C BC, CK, PT, PTT, BMP, HS TROP, BNP #### [address] Monocytes/100 WBC (Bld) 24.67 % High 0.00-20.00 [facility] Comment on above: Result Comment: For adults in ED, MDW > 20.0 may be associated with a higher risk of sepsis during the first 12 hrs of hospital admission Performed By: #### C BC, CK, PT, PTT, BMP, HS TROP, BNP #### [address] Monocytes/100 WBC (Bld) 6.5 % Normal . [facility] Comment on above: Performed By: #### C BC, CK, PT, PTT, BMP, HS TROP, BNP #### [address] Neutrophils (Bld) [#/Vol] 5.7 10*3/uL Normal 1.8-7.7 [facility] Comment on above: Performed By: #### C BC, CK, PT, PTT, BMP, HS TROP, BNP #### [address] Neutrophils/100 WBC (Bld) 62.4 % Normal . [facility] Comment on above: Performed By: #### C BC, CK, PT, PTT, BMP, HS TROP, BNP #### [address] NRBC% 0.1 /100{WBC} Normal 0-0.5 [facility] Comment on above: Performed By: #### C BC, CK, PT, PTT, BMP, HS TROP, BNP #### [address] Platelet mean volume (Bld) [Entitic vol] 8.2 fL Normal 6.6-10.1 [facility] Comment on above: Performed By: #### C BC, CK, PT, PTT, BMP, HS TROP, BNP #### [address] Platelets (Bld) [#/Vol] 234 10*3/uL Normal 150-450 [facility] Comment on above: Performed By: #### C BC, CK, PT, PTT, BMP, HS TROP, BNP #### [address] RBC (Bld) [#/Vol] 4.17 10*6/uL Normal 3.90-5.60 [facility] Comment on above: Performed By: #### C BC, CK, PT, PTT, BMP, HS TROP, BNP #### [address] WBC (Bld) [#/Vol] 9.2 10*3/uL Normal 4.1-10.5 [facility] Comment on above: Performed By: #### C BC, CK, PT, PTT, BMP, HS TROP, BNP #### [address] [place] [address] [facility] Creatine Kinaseon 03-03-2023 CK [Catalytic activity/Vol] 125 U/L Normal [facility] Comment on above: Performed By: #### C BC, CK, PT, PTT, BMP, HS TROP, BNP ####[facility] [address] [place] [id number] [facility] Creatine kinase [Enzymatic a ctivity/volume] in Serum or PlasmaOrdered By: Ramiro Cortez on 03-03-2023 CK [Catalytic activity/Vol] 125 U/L [facility] Creatinine [Mass/volume] in Serum or PlasmaOrdered By: Ramiro Cortez on 03-03-2023 Creatinine [Mass/Vol] 1.19 mg/dL 0.70-1.30 [facility] ECG 12 lead ECGon 03-03-2023 ECG 12 lead ECG [facility] [address] [place] [address] [place] [address] Electrocardiograph Report Signed Patient: Jeb Riddle MR#: [id number] : 1950 Acct:[id number] Age/Sex: 72 / M ADM Date: 03/03/23 Loc: ER Room: Type: [facility] ER Attending Dr: Ordering Provider: Ramiro [...] ECGs available Confirmed by RAMIRO CORTEZ DO ([id number]) on 03/03/2023 8:14:27 PM Referred By: Electronically Signed By:RAMIRO CORTEZ DO Transcribed By: MUS Signed By Ramiro Cortez DO 03/03 Normal [facility] Eosinophils Auto (Bld) [#/Vo l]Ordered By: Ramiro Cortez on 03-03-2023 Eosinophils (Bld) [#/Vol] 0.2 10*3/uL 0.0-0.45 [facility] Eosinophils/100 WBC Auto (Bl d)Ordered By: Ramiro Cortez on 03-03-2023 Eosinophils/100 WBC (Bld) 2.4 % . [facility] Erythrocyte distribution wid th Auto (RBC) [Ratio]Ordered By: Ramiro Cortez on 03-03-2023 Erythrocyte distribution width (RBC) [Ratio] 13.0 % 12.0-14.8 [facility] Glucose [Mass/volume] in Ser um or PlasmaOrdered By: Ramiro Cortez on 03-03-2023 Glucose [Mass/Vol] 93 mg/dL 70-100 [facility] Comment on above: ADA recommended refe rence rangeRandom Glucose Reference Range is dependent on time and content of last meal. Glucose of more than 200 mg/dL in a nonstressed, ambulatory subject supports the diagnosis of Diabetes Mellitus. Hematocrit Auto (Bld) [Volum e fraction]Ordered By: Ramiro Cortez on 03-03-2023 Hematocrit (Bld) [Volume fraction] 38.3 % 38.8-50.0 [facility] Hemoglobin [Mass/volume] in BloodOrdered By: Ramiro Cortez on 03-03-2023 Hemoglobin (Bld) [Mass/Vol] 12.9 g/dL 13.0-17.0 [facility] Laboratory - CoagulationOrde red By: Ramiro Cortez on 03-03-2023 PT Coag (PPP) [Time] 12.3 s 9.0-12.9 [facility] Leukocytes [#/volume] correc ava for nucleated erythrocytes in Blood by Automated counOrdered By: Ramiro Cortez on 03-03-2023 WBC corrected for nucl RBC Auto (Bld) [#/Vol] 9.2 10*3/uL 4.1-10.5 [facility] Lymphocytes Auto (Bld) [#/Vo l]Ordered By: Ramiro Cortez on 03-03-2023 Lymphocytes (Bld) [#/Vol] 2.6 10*3/uL 1.00-4.8 [facility] Lymphocytes/100 WBC Auto (Bl d)Ordered By: Ramiro Cortez on 03-03-2023 Lymphocytes/100 WBC (Bld) 28.3 % . [facility] MCH Auto (RBC) [Entitic mass ]Ordered By: Ramiro Cortez on 03-03-2023 MCH (RBC) [Entitic mass] 30.8 pg 27.5-35.2 [facility] MCHC Auto (RBC) [Mass/Vol]Or dered By: Ramiro Cortez on 03-03-2023 MCHC (RBC) [Mass/Vol] 33.6 g/dL 32.5-35.6 [facility] MCV Auto (RBC) [Entitic vol] Ordered By: Ramiro Cortez on 03-03-2023 MCV (RBC) [Entitic vol] 91.9 fL 83.5-101 [facility] Monocyte distribution width [Entitic volume] in Blood by AutomatedOrdered By: Ramiro Cortez on 03-03-2023 Monocyte distribution width Auto (Bld) [Entitic vol] 24.67 % 0.00-20.00 [facility] Comment on above: For adults in ED, MD W > 20.0 may be associated with a higher risk of sepsis during the first 12 hrs of hospital admission Monocytes Auto (Bld) [#/Vol] Ordered By: Ramiro Cortez on 03-03-2023 Monocytes (Bld) [#/Vol] 0.6 10*3/uL 0.0-0.8 [facility] Monocytes/100 WBC Auto (Bld) Ordered By: Ramiro Cortez on 03-03-2023 Monocytes/100 WBC (Bld) 6.5 % . [facility] Natriuretic peptide B [Mass/ Vol]Ordered By: Ramiro Cortez on 03-03-2023 Natriuretic peptide B (Bld) [Mass/Vol] 52.0 pg/mL 5-100 [facility] Neutrophils Auto (Bld) [#/Vo l]Ordered By: Ramiro Cortez on 03-03-2023 Neutrophils (Bld) [#/Vol] 5.7 10*3/uL 1.8-7.7 [facility] Neutrophils/100 WBC Auto (Bl d)Ordered By: Ramiro Cortez on 03-03-2023 Neutrophils/100 WBC (Bld) 62.4 % . [facility] No Panel InformationOrdered By: Ramiro Cortez on 03-03-2023 Estimated GFR (CKD-EPI) > 60.0 mL/Min [facility] Creatinine Clearance (Chem 55.29 [facility] Nucleated erythrocytes [Pres ence] in Blood by Automated countOrdered By: Ramiro Cortez on 03-03-2023 Nucleated RBC Auto Ql (Bld) 0.1 /100{WBC} 0-0.5 [facility] Partial Thromboplastin Timeo n 03-03-2023 aPTT Coag (Bld) [Time] 29.7 s Normal 25.1-36.5 Th e [facility] Comment on above: Result Comment: PERF ORMED BY: [facility] [address] [place] [address] PATHOLOGIST RN CONCURRENT REVIEW RAHDA BARRON M.D. Performed By: #### C BC, CK, PT, PTT, BMP, HS TROP, BNP #### [facility] [address] Platelet mean volume Auto (B ld) [Entitic vol]Ordered By: Ramiro Cortez on 03-03-2023 Platelet mean volume (Bld) [Entitic vol] 8.2 fL 6.6-10.1 [facility] Platelet poor plasma interna tional normalized ratio (INR) by coagulation assay (relatOrdered By: Ramiro Cortez on 03-03-2023 INR Coag (PPP) [Relative time] 1.1 {INR} [facility] Comment on above: INR Therapeutic Rang [...] (Bld) [#/Vol] 234 10*3/uL 150-450 [facility] Potassium [Moles/volume] in Serum or PlasmaOrdered By: Ramiro Cortez on 03-03-2023 Potassium [Moles/Vol] 4.2 mmol/L 3.5-5.1 [facility] Prothrombin Time INRon 03-03 INR Coag (PPP) [Relative time] 1.1 {INR} Normal [facility] Comment on above: [...] PT, PTT, BMP, HS TROP, BNP #### [facility] [address] PT Coag (PPP) [Time] 12.3 s Normal 9.0-12.9 [facility] Comment on above: Performed By: #### C BC, CK, PT, PTT, BMP, HS TROP, BNP #### [facility] [address] RBC Auto (Bld) [#/Vol]Ordere d By: Ramiro Cortez on 03-03-2023 RBC (Bld) [#/Vol] 4.17 10*6/uL 3.90-5.60 [facility] Serum or plasma anion gap de terminationOrdered By: Ramiro Cortez on 03-03-2023 Anion gap [Moles/Vol] 10.6 mmol/L 6.0-15.0 [facility] Sodium [Moles/volume] in Ser um or PlasmaOrdered By: Ramiro Cortez on 03-03-2023 Sodium [Moles/Vol] 139 mmol/L 136-145 [facility] Troponin I High Sensitivityo n 03-03-2023 Troponin I High Sensitivity 7.6 pg/mL Normal 0.0-20.0 [facility] Comment on above: Result Comment: PERF ORMED BY: [place] [address] PATHOLOGIST RN CONCURRENT REVIEW RADHA BARRON M.D. Performed By: #### C BC, CK, PT, PTT, BMP, HS TROP, BNP ####[facility] [place] [id number] [facility] Troponin I.cardiac [Mass/vol ume] in Serum or Plasma by Detection limit <= 0.01 ng/Ordered By: Ramiro Cortez on 03-03-2023 Troponin I.cardiac DL <= 0.01 ng/mL [Mass/Vol] 7.6 pg/mL 0.0-20.0 [facility] Urea nitrogen [Mass/volume] in Serum or PlasmaOrdered By: Ramiro Cortez on 03-03-2023 Urea nitrogen [Mass/Vol] 17 mg/dL 03-08 [facility] WBC Auto (Bld) [#/Vol]Ordere d By: Ramiro Cortez on 03-03-2023 WBC (Bld) [#/Vol] 9.2 10*3/uL 4.1-10.5 [facility] XR chest 2V*on 03-03-2023 XR chest 2V* [facility] [address] [place] [address] [place] [address] XRay Report Signed Patient: Jeb Riddle MR#: [id number] : 1950 Acct:[id number] Age/Sex: 72 / M ADM Date: 03/03/23 Loc: ER Room: Type: [facility] ER Attending Dr: Copies to: Ramiro [...] Ivonne Zavala M.D.03/03/2023 12:46 PM Dictation Location: [place] [address] Transcribed By: KAROLINA 03/03/23 1246 Dictated By: Ivonne Zavala MD 03/03/23 1245 Signed By: 03/03/23 1246 Normal [facility] CBC AUTO DIFFon 01-11-2023 BASO # 0.0 103/ul Normal 0.0-0.1 [facility] Comment on above: Performed By: #### C BC #### [facility] [address] [address] [address] Andrea Garcia Basophils/100 WBC (Bld) 0.0 % Critically low 0.2-2.0 [facility] Comment on above: Performed By: #### C BC #### [facility] [address] [place] [address] [address] nAdrea Garcia EO # 0.0 103/ul Normal 0.0-0.7 [facility] Comment on above: Performed By: #### C BC #### [facility] [address] [place] [address] Dr. Andrea Garcia Eosinophils/100 WBC (Bld) 0.0 % Critically low 0.9-7.0 [facility] Comment on above: Performed By: #### C BC #### [facility] [address] [place] [address] Dr. Andrea Garcia Erythrocyte distribution width (RBC) [Ratio] 12.8 % Normal 11.0-15.0 [facility] Comment on above: Performed By: #### C BC #### [facility] [address] [place] [address] Dr. Andrea Garcia Hematocrit (Bld) [Volume fraction] 36.2 % Critically low 42.0-54.0 [facility] Comment on above: Performed By: #### C BC #### [facility] [address] [place] [address] Dr. Andrea Garcia Hemoglobin (Bld) [Mass/Vol] 12.8 g/dL Critically low 14.0-18.0 [facility] Comment on above: Performed By: #### C BC #### [facility] [address] [place] [address] Dr. Andrea Garcia IG # 0.03 10e3/ul Normal 0.00-0.03 [facility] Comment on above: Performed By: #### C BC #### [facility] [address] [place] [address] Dr. Andrea Garcia IG % 0.4 % Normal 0.0-0.5 [facility] Comment on above: Performed By: #### C BC #### [facility] [address] [place] [address] Dr. Andrea Garcia LYMPH # 1.1 103/ul Critically low 1.2-3.[address] [facility] Comment on above: Performed By: #### C BC #### [facility] [address] [place] [address] Dr. Andrea Garcia Lymphocytes/100 WBC (Bld) 15.3 % Critically low 20.5-60.[address] [facility] Comment on above: Performed By: #### C BC #### [facility] [address] [place] [address] Dr. Andrea Garcia MANUAL DIFF REQ NO Normal [facility] Comment on above: Performed By: #### C BC #### [facility] [address] [place] [address] Dr. Andrea Garcia MCH (RBC) [Entitic mass] 31.3 pg Normal 25.9-34.0 [facility] Comment on above: Performed By: #### C BC #### [facility] [address] [place] [address] Dr. Andrea Garcia MCHC (RBC) [Mass/Vol] 35.4 g/dL Critically high 29.9-35.[address] [facility] Comment on above: Performed By: #### C BC #### [facility] [address] [place] [address] Dr. Andrea Garcia MCV (RBC) [Entitic vol] 88.5 fL Normal 80.0-94.[address] [facility] Comment on above: Performed By: #### C BC #### [facility] [address] [place] [address] Dr. Andrea Garcia MONO # 0.1 103/ul Critically low 0.3-0.[address] [facility] Comment on above: Performed By: #### C BC #### [facility] [address] [place] [address] Dr. Andrea Garcia Monocytes/100 WBC (Bld) 0.7 % Critically low 1.7-12.0 [facility] Comment on above: Performed By: #### C BC #### [facility] [address] [place] [address] Dr. Andrea Garcia NEUT # 6.0 103/ul Normal 1.4-6.5 [facility] Comment on above: Performed By: #### C BC #### [facility] [address] [place] [address] Dr. Andrea Garcia Neutrophils/100 WBC (Bld) 83.6 % Critically high 43.0-75.0 [facility] Comment on above: Performed By: #### C BC #### [facility] [address] [place] [address] Dr. Andrea Garcia Platelet mean volume (Bld) [Entitic vol] 10.1 fL Normal 9.5-13.5 [facility] Comment on above: Performed By: #### C BC #### [facility] [address] [place] [address] Dr. Andrea Garcia PLT 216 103/ul Normal 150-450 [facility] Comment on above: Performed By: #### C BC #### [facility] [address] [place] [address] Dr. Andrea Garcia RBC 4.09 106/ul Critically low 4.70-6.10 [facility] Comment on above: Performed By: #### C BC #### [facility] [address] [place] [address] Dr. Andrea Garcia WBC 7.2 103/ul Normal 4.0-11.0 [facility] Comment on above: Performed By: #### C BC #### [facility] [address] [place] [address] Dr. Andrea Garcia PROF 14(COMP METB)on 023 Albumin [Mass/Vol] 2.8 g/dL Critically low 3.4-5.0 [facility] Comment on above: Performed By: #### C MP #### [facility] [address] [place] [address] Dr. Andrea Garcia Albumin/Globulin [Mass ratio] 0.8 {ratio} Normal [facility] Comment on above: Performed By: #### C MP #### [facility] [address] [place] [address] Dr. Andrea Garcia ALP [Catalytic activity/Vol] 64 U/L Normal 46-116 [facility] Comment on above: Performed By: #### C MP #### [facility] [address] [place] [address] Dr. Andrea Garcia ALT [Catalytic activity/Vol] 27 U/L Normal 16-63 [facility] Comment on above: Performed By: #### C MP #### [facility] [address] [place] [address] Dr. Andrea Garcia Anion gap [Moles/Vol] 12.9 mmol/L Normal Th [facility] Comment on above: Performed By: #### C MP #### [facility] [address] [place] [address] Dr. Andrea Garcia AST [Catalytic activity/Vol] 16 U/L Normal 15-37 [facility] Comment on above: Performed By: #### C MP #### [facility] [address] [place] [address] Dr. Andrea Garcia Bilirubin [Mass/Vol] 0.4 mg/dL Normal 0.2-1.0 [facility] Comment on above: Performed By: #### C MP #### [facility] [address] [place] [address] Dr. Andrea Garcia Calcium [Mass/Vol] 8.2 mg/dL Critically low 8.5-10.1 [facility] Comment on above: Performed By: #### C MP #### [facility] [address] [place] [address] Dr. Andrea Garcia Chloride [Moles/Vol] 107 mmol/L Normal 98-107 [facility] Comment on above: Performed By: #### C MP #### [facility] [address] [place] [address] Dr. Andrea Garcia CO2 [Moles/Vol] 24.2 mmol/L Normal 21.0-32.0 [facility] Comment on above: Performed By: #### C MP #### [facility] [address] [place] [address] Dr. Andrea Garcia Creatinine [Mass/Vol] 1.07 mg/dL Normal 0.70-1.30 [facility] Comment on above: Performed By: #### C MP #### [facility] [address] [address] [address] Andrea Garcia EGFR-AF PALAUAN >60 Normal >=60 [facility] Comment on above: Performed By: #### C MP #### [facility] [address] [place] [address] Dr. Andrea Garcia EGFR-NON AF PALAUAN >60 Normal >=60 [facility] Comment on above: Performed By: #### C MP #### [facility] [address] [place] [address] Dr. Andrea Garcia Globulin (S) [Mass/Vol] 3.5 g/dL Normal [facility] Comment on above: Performed By: #### C MP #### [facility] [address] [place] [address] Dr. Andrea Garcia Glucose [Mass/Vol] 164 mg/dL Critically high 74-106 [facility] Comment on above: Performed By: #### C MP #### [facility] [address] [place] [address] Dr. Andrea Garcia Potassium [Moles/Vol] 4.1 mmol/L Normal 3.5-5.1 [facility] Comment on above: Performed By: #### C MP #### [facility] [address] [place] [address] Dr. Andrea Garcia Protein [Mass/Vol] 6.3 g/dL Critically low 6.4-8.2 Th [facility] Comment on above: Performed By: #### C MP #### [facility] [address] [place] [address] Dr. Andrea Garcia Sodium [Moles/Vol] 140 mmol/L Normal 136-145 [facility] Comment on above: Performed By: #### C MP #### [facility] [address] [place], [place] [address] Dr. Andrea Garcia Urea nitrogen [Mass/Vol] 16.0 mg/dL Normal 7.0-18.0 [facility] Comment on above: Performed By: #### C MP #### [facility] [address] [address] [address] Andrea Garcia Urea nitrogen/Creatinine [Mass ratio] 15.0 mg/mg Normal [facility] Comment on above: Performed By: #### C MP #### [facility] [address] [address] [address] Andrea Garcia XR KUB 1 VIEWon [...] ROBERT DAVENPORT Date: 2023-01-11 06:[address] [facility] AMYLASEon 01-10-2023 Amylase [Catalytic activity/Vol] 56 U/L Normal 25-[address] [facility] Comment on above: Performed By: #### C MADM, CMP, DAMIEN, LIPA ####[facility] [address] [place], [place] [address]GmDr. Andrea Garcia CARDIAC JEB 3-6on 3 CK [Catalytic activity/Vol] 92 U/L Normal 39-[address] [facility] Comment on above: Performed By: #### C MREP #### [facility] [address] [address] [address] Andrea Garcia CK.MB [Mass/Vol] 1.66 ng/mL Normal <=3.[address] [facility] Comment on above: Performed By: #### C MREP #### [facility] [address] [address] [address] Andrea Garcia HSTROP 12.8 pg/mL Normal 4.0-76.1 [facility] Comment on above: Result Comment: CUT- OFF POINTS HAVE BEEN ESTABLISHED BASED ON THE FOURTH UNIVERSAL DEFINITIONS OF MYOCARDIAL INFARCTION. THE UPPER REFERENCE LIMIT (URL) OF TROPONIN, DEFINED THE 99TH PERCENTILE OF cTnI DISTRIBUTION IN A REFERENCE POPULATION, HAS BEEN CONFIRMED THE DECISION THRESHOLD FOR DC DIAGNOSIS. Performed By: #### C MREP #### [facility] [address] [address] [address] Andrea Garcia CK [Catalytic activity/Vol] 72 U/L Normal 39-308 [facility] Comment on above: Performed By: #### C MREP #### [facility] [address] [address] [address] Andrea RUBALCAVA.MB [Mass/Vol] 1.89 ng/mL Normal <=3.60 [facility] Comment on above: Performed By: #### C MREP #### [facility] [address] [address] [address] Andrea Garcia HSTROP 13.5 pg/mL Normal 4.0-76.1 [facility] Comment on above: Result Comment: CUT- OFF POINTS HAVE BEEN ESTABLISHED BASED ON THE FOURTH UNIVERSAL DEFINITIONS OF MYOCARDIAL INFARCTION. THE UPPER REFERENCE LIMIT (URL) OF TROPONIN, DEFINED THE 99TH PERCENTILE OF cTnI DISTRIBUTION IN A REFERENCE POPULATION, HAS BEEN CONFIRMED THE DECISION THRESHOLD FOR DC DIAGNOSIS. Performed By: #### C MREP #### [facility] [address] [address] [address] Andrea Garcia CARDIAC JEB ADMITon 023 CK [Catalytic activity/Vol] 85 U/L Normal 39-308 [facility] Comment on above: Performed By: #### C MADM, CMP, DAMIEN, LIPA ####[facility] [address] [place] [id number]. Andrea Garcia CK.MB [Mass/Vol] 1.80 ng/mL Normal <=3.[address] [facility] Comment on above: Performed By: #### C MADM, CMP, DAMIEN, LIPA ####[facility] [address] [id number]. Andrea Garcia HSTROP 15.7 pg/mL Normal 4.0-76.[address] [facility] Comment on above: Result Comment: CUT- OFF POINTS HAVE BEEN ESTABLISHED BASED ON THE FOURTH UNIVERSAL DEFINITIONS OF MYOCARDIAL INFARCTION. THE UPPER REFERENCE LIMIT (URL) OF TROPONIN, DEFINED THE 99TH PERCENTILE OF cTnI DISTRIBUTION IN A REFERENCE POPULATION, HAS BEEN CONFIRMED THE DECISION THRESHOLD FOR DC DIAGNOSIS. Performed By: #### C MADM, CMP, DAMIEN, LIPA ####[facility] [address] [address]Dr. Andrea Garcia MIQUEL 61 ng/mL Normal 16-[address] [facility] Comment on above: Performed By: #### C MADM, CMP, DAMIEN, LIPA ####[facility] [address] [address]Dr. Andrea Garcia CBC AUTO DIFFon 01-10-2023 BASO # 0.0 103/ul Normal 0.0-0.1 [facility] Comment on above: Performed By: #### C BC ####[facility] [address] [place], [place] [address]Dr. Andrea Garcia Basophils/100 WBC (Bld) 0.5 % Normal 0.2-2.[address] [facility] Comment on above: Performed By: #### C BC ####[facility] [address] [place], [place] [address]Dr. Andrea Garcia EO # 0.4 103/ul Normal 0.0-0.[address] [facility] Comment on above: Performed By: #### C BC ####[facility] [address] [place], [place] [address]Dr. Andrea Garcia Eosinophils/100 WBC (Bld) 5.9 % Normal 0.9-7.[address] [facility] Comment on above: Performed By: #### C BC ####[facility] [address] [place], [place] [address]Dr. Andrea Garcia Erythrocyte distribution width (RBC) [Ratio] 13.0 % Normal 11.0-15.[address] [facility] Comment on above: Performed By: #### C BC ####[facility] [address] [place], [place] [address]Dr. Andrea Garcia Hematocrit (Bld) [Volume fraction] 40.0 % Critically low 42.0-54.0 [facility] Comment on above: Performed By: #### C BC ####[facility] [address] [address]DrWilder Andrea Garcia Hemoglobin (Bld) [Mass/Vol] 13.4 g/dL Critically low 14.0-18.0 [facility] Comment on above: Performed By: #### C BC ####[facility] [address] [place], [place] [address]DrWilder Kaylendahlia Garcia IG # 0.01 10e3/ul Normal 0.00-0.03 [facility] Comment on above: Performed By: #### C BC ####[facility] [address] [place], [place] [address]DrWilder Kaylendahlia Garcia IG % 0.2 % Normal 0.0-0.5 [facility] Comment on above: Performed By: #### C BC ####[facility] [address] [place], [place] [address]DrWilder Kaylendahlia Garcia LYMPH # 2.2 103/ul Normal 1.2-3.[address] [facility] Comment on above: Performed By: #### C BC ####[facility] [address] [place], [place] [address]DrWilder Kaylendahlia Garcia Lymphocytes/100 WBC (Bld) 33.2 % Normal 20.5-60.0 [facility] Comment on above: Performed By: #### C BC ####[facility] [address] [place], [place] [address]DrWilder Kaylendahlia Garcia MANUAL DIFF REQ NO Normal [facility] Comment on above: Performed By: #### C BC ####[facility] [address] [place], [place] [address]DrWilder Kaylendahlia Garcia MCH (RBC) [Entitic mass] 30.5 pg Normal 25.9-34.[address] [facility] Comment on above: Performed By: #### C BC ####[facility] [address] [place], [place] [address]DrWilder Kaylendahlia Garcia MCHC (RBC) [Mass/Vol] 33.5 g/dL Normal 29.9-35.[address] [facility] Comment on above: Performed By: #### C BC ####[facility] [address] [address]DrWilder Andrea Jose MCV (RBC) [Entitic vol] 90.9 fL Normal 80.0-94.[address] [facility] Comment on above: Performed By: #### C BC ####[facility] [address] [place], [place] [address]DrWilder Garcia MONO # 0.4 103/ul Normal 0.3-0.[address] [facility] Comment on above: Performed By: #### C BC ####[facility] [address] [place], [place] [address]DrWilder Garcia Monocytes/100 WBC (Bld) 6.0 % Normal 1.7-12.[address] [facility] Comment on above: Performed By: #### C BC ####[facility] [address] [place], [place] [address]DrWilder Garcia NEUT # 3.5 103/ul Normal 1.4-6.[address] [facility] Comment on above: Performed By: #### C BC ####[facility] [address] [place], [place] [address]DrWilder Garcia Neutrophils/100 WBC (Bld) 54.2 % Normal 43.0-75.[address] [facility] Comment on above: Performed By: #### C BC ####[facility] [address] [place], [place] [address]DrWilder Garcia Platelet mean volume (Bld) [Entitic vol] 9.7 fL Normal 9.5-13.[address] [facility] Comment on above: Performed By: #### C BC ####[facility] [address] [place], [place] [address]DrWilder Garcia PLT 225 103/ul Normal 150-[address] [facility] Comment on above: Performed By: #### C BC ####[facility] [address] [place], [place] [address]DrWilder Garcia RBC 4.40 106/ul Critically low 4.70-6.[address] [facility] Comment on above: Performed By: #### C BC ####[facility] [address] [place], [place] [address]KsWilder Garcia WBC 6.5 103/ul Normal 4.0-11.0 [facility] Comment on above: Performed By: #### C BC ####[facility] [address] [place], [place] [address]Pa. Andrea Garcia CT ABD/PELV W CONon 01-11-20 [...] ADITYA OATES Date: 2023-01-10 07:[address] [facility] CULTURE BLOODon 01-10-2023 Microscopic examination of blood, culture Culture Observations: NO GROWTH AT 36-48 HOURS. FINAL TO FOLLOW. Normal [facility] Comment on above: Performed By: #### B LDCX2 ####[facility] [address] [address]Dr. Andrea Garcia Microscopic examination of blood, culture Culture Observations: NO GROWTH AT 36-48 HOURS. FINAL TO FOLLOW. Normal [facility] Comment on above: Performed By: #### B LDCX1 ####[facility] [address] [address]Dr. Andrea Garcia ER URINE PROFILEon 3 Bilirubin Ql (U) Negative Normal NEGATIVE [facility] Comment on above: Performed By: #### U MICRO, ERUR #### [facility] [address] [address] [address] Andrea Garcia Clarity (U) CLEAR Normal CLEAR [facility] Comment on above: Performed By: #### U MICRO, ERUR #### [facility] [address] [place] [address] Dr. Andrea Garcia Color (U) LT. YELLOW Normal YELLOW [facility] Comment on above: Performed By: #### U MICRO, ERUR #### [facility] [address] [place] [address] Dr. Andrea Garcia ERUAHD A micrscopic examina tion will be performed if indicated. Normal [facility] Comment on above: Performed By: #### U MICRO, ERUR #### [facility] [address] [place] [address] Dr. Andrea Garcia Glucose Ql (U) Negative Normal NEGATIVE [facility] Comment on above: Performed By: #### U MICRO, ERUR #### [facility] [address] [address] [address] Andrea Garcia Hemoglobin Ql (U) TRACE-INTACT Abnormal NEGATIVE [facility] Comment on above: Performed By: #### U MICRO, ERUR #### [facility] [address] [address] [address] Andrea Garcia Ketones Ql (U) Negative Normal NEGATIVE [facility] Comment on above: Performed By: #### U MICRO, ERUR #### [facility] [address] [place] [address] Dr. Andrea Garcia LEUKOCYTES Negative Normal NEGATIVE [facility] Comment on above: Performed By: #### U MICRO, ERUR #### [facility] [address] [place] [address] Dr. Andrea Garcia Nitrite Ql (U) Negative Normal NEGATIVE [facility] Comment on above: Performed By: #### U MICRO, ERUR #### [facility] [address] [place] [address] Dr. Andrea Garcia pH (U) 5.5 [pH] Normal 5-[address] [facility] Comment on above: Performed By: #### U MICRO, ERUR #### [facility] [address] [place] [address] Dr. Andrea Garcia SPEC GRAVITY 1.015 Normal 1.005-<=1. 025 [facility] Comment on above: Performed By: #### U MICRO, ERUR #### [facility] [address] [place] [address] Dr. Andrea Garcia UA PROTEIN Negative Normal NEGATIVE/ TRACE [facility] Comment on above: Performed By: #### U MICRO, ERUR #### [facility] [address] [place] [address] Dr. Andrea Garcia UR MICRO IND INDICATED Normal [facility] Comment on above: Performed By: #### U MICRO, ERUR #### [facility] [address] [place] [address] Dr. Andrea Garcia Urobilinogen Qn (U) 0.2 {Temo'U}/dL Normal 0.2 - 1. 0 [facility] Comment on above: Performed By: #### U MICRO, ERUR #### [facility] [address] [place] [address] Dr. Andrea Garcia LACTATE/LACTIC ACIDon 2022 Lactate [Moles/Vol] 0.8 mmol/L Normal 0.4-2.0 [facility] Comment on above: Performed By: #### L ACT #### [facility] [address] [place] [address] Dr. Andrea Garcia Lactate [Moles/Vol] 0.9 mmol/L Normal 0.4-2.0 [facility] Comment on above: Performed By: #### L ACT #### [facility] [address] [address] [address] Andrea Garcia LIPASEon 01-10-2023 Lipase [Catalytic activity/Vol] 71.0 U/L Critically low 73.0-393.0 [facility] Comment on above: Performed By: #### C MADM, CMP, DAMIEN, LIPA ####[facility] [address] [address]DrWilder Garcia PROF 14(COMP METB)on 023 Albumin [Mass/Vol] 3.2 g/dL Critically low 3.4-5.0 [facility] Comment on above: Performed By: #### C MADM, CMP, DAMIEN, LIPA ####[facility] [address] [address]DrWilder Garcia Albumin/Globulin [Mass ratio] 0.9 {ratio} Normal [facility] Comment on above: Performed By: #### C MADM, CMP, DAMIEN, LIPA ####[facility] [address] [address]Dr. Andrea Garcia ALP [Catalytic activity/Vol] 68 U/L Normal 46-116 [facility] Comment on above: Performed By: #### C MADM, CMP, DAMIEN, LIPA ####[facility] [address] [address]Dr. Andrea Garcia ALT [Catalytic activity/Vol] 30 U/L Normal 16-63 [facility] Comment on above: Performed By: #### C MADM, CMP, DAMIEN, LIPA ####[facility] [address] [address]Dr. Andrea Garcia Anion gap [Moles/Vol] 14.2 mmol/L Normal [facility] Comment on above: Performed By: #### C MADM, CMP, DAMIEN, LIPA ####[facility] [address] [address]DrWilder Garcia AST [Catalytic activity/Vol] 18 U/L Normal 15-37 [facility] Comment on above: Performed By: #### C MADM, CMP, DAMIEN, LIPA ####[facility] [address] [address]Dr. Andrea Garcia Bilirubin [Mass/Vol] 0.5 mg/dL Normal 0.2-1.[address] [facility] Comment on above: Performed By: #### C MADM, CMP, DAMIEN, LIPA ####[facility] [address] [address]Dr. Andrea Garcia Calcium [Mass/Vol] 8.5 mg/dL Normal 8.5-10.[address] [facility] Comment on above: Performed By: #### C MADM, CMP, DAMIEN, LIPA ####[facility] [address] [address]Dr. Andrea Garcia Chloride [Moles/Vol] 108 mmol/L Critically high 98-[address] [facility] Comment on above: Performed By: #### C MADM, CMP, DAMIEN, LIPA ####[facility] [address] [place], [place] [address]Dr. Andrea Garcia CO2 [Moles/Vol] 22.1 mmol/L Normal 21.0-32.[address] [facility] Comment on above: Performed By: #### C MADM, CMP, DAMIEN, LIPA ####[facility] [address] [place] [address]Dr. Andrea Garcia Creatinine [Mass/Vol] 1.06 mg/dL Normal 0.70-1.[address] [facility] Comment on above: Performed By: #### C MADM, CMP, DAMIEN, LIPA ####[facility] [address] [address]Dr. Andrea Garcia EGFR-AF PALAUAN >60 Normal >=[address] [facility] Comment on above: Performed By: #### C MADM, CMP, DAMIEN, LIPA ####[facility] [address] [address]Dr. Andrea Garcia EGFR-NON AF PALAUAN >60 Normal >=[address] [facility] Comment on above: Performed By: #### C MADM, CMP, DAMIEN, LIPA ####[facility] [address] [place] [address]Dr. Andrea Garcia Globulin (S) [Mass/Vol] 3.5 g/dL Normal [facility] Comment on above: Performed By: #### C MADM, CMP, DAMIEN, LIPA ####[facility] [address] [address]Dr. Andrea Garcia Glucose [Mass/Vol] 110 mg/dL Critically high 74-106 [facility] Comment on above: Performed By: #### C MADM, CMP, DAMIEN, LIPA ####[facility] [address] [address]Dr. Andrea Garcia Potassium [Moles/Vol] 4.3 mmol/L Normal 3.5-5.[address] [facility] Comment on above: Performed By: #### C MADM, CMP, DAMIEN, LIPA ####[facility] [address] [place], [place] [address]Dr. Andrea Garcia Protein [Mass/Vol] 6.7 g/dL Normal 6.4-8.[address] [facility] Comment on above: Performed By: #### C MADM, CMP, DAMIEN, LIPA ####[facility] [address] [place], [place] [address]Dr. Andrea Garcia Sodium [Moles/Vol] 140 mmol/L Normal 136-[address] [facility] Comment on above: Performed By: #### C MADM, CMP, DAMIEN, LIPA ####[facility] [address] [address]Dr. Andrea Garcia Urea nitrogen [Mass/Vol] 20.0 mg/dL Critically high 7.0-18.[address] [facility] Comment on above: Performed By: #### C MADM, CMP, DAMIEN, LIPA ####[facility] [address] [place], [place] [address]Dr. Andrea Garcia Urea nitrogen/Creatinine [Mass ratio] 18.9 mg/mg Normal [facility] Comment on above: Performed By: #### C MADM, CMP, DAMIEN, LIPA ####[facility] [address] [place], [place] [address]Dr. Andrea Garcia URINE MICROSCOPIC ONLYon BACTERIA NONE SEEN Normal NONE SEEN [facility] Comment on above: Performed By: #### U MICRO, ERUR #### [facility] [address] [place] [address] Dr. Andrea Garcia Bacteria identified Cx Nom (U) NOT INDICATED Normal [facility] Comment on above: Performed By: #### U MICRO, ERUR #### [facility] [address] [place] [address] Dr. Andrea Garcia CAST NONE SEEN Normal NONE SEEN [facility] Comment on above: Performed By: #### U MICRO, ERUR #### [facility] [address] [place] [address] Dr. Andrea Garcia Crystals LM Nom (Urine sed) NONE SEEN Normal NONE SEEN [facility] Comment on above: Performed By: #### U MICRO, ERUR #### [facility] [address] [place] [address] Dr. Andrea Garcia Epithelial cells LM Ql (Urine sed) NONE SEEN Normal NONE SEEN /RARE [facility] Comment on above: Performed By: #### U MICRO, ERUR #### [facility] [address] [place] [address] Dr. Andrea Garcia MUCOUS NONE SEEN Normal NONE SEEN [facility] Comment on above: Performed By: #### U MICRO, ERUR #### [facility] [address] [place] [address] Dr. Andrea Garcia RBC 0-2 Normal 0-[address] [facility] Comment on above: Performed By: #### U MICRO, ERUR #### [facility] [address] [place] [address] Dr. Andrea Garcia WBC 0-2 Abnormal NONE SEEN [facility] Comment on above: Performed By: #### U MICRO, ERUR #### [facility] [address] [place] [address] Dr. Andrea Garcia XR CHEST 1 Von 01-10-2023 XR CHEST 1 V Exam: Radiographs: X R CHEST 1 V Reason for exam: Nausea/vomiting Comparison: None IMPRESSION: Negative chest. Electronically authenticated by: ADITYA OATES Date: 2023-01-10 07:[address] [facility] MRI Soft Tissue Neck w/o + [...] by KENN RAPHAEL on 10/06/2021 1605 Normal [facility] Supervisor [employer] CT Soft Tissue Neck w/ Contr ast*on [...] by Que Greene on 09/29/2021 1013 Normal [facility] Supervisor [employer] Vital Signs Date Time Vital Sign Value Performing Clinician Faci litrubio 01-09-2024 19:01-0400 Diastolic blood pressure 99 mm[Hg] MD Lauren Godwin Work Phone: [facility] 01-09-2024 19:01-0400 Heart rate 84 /min MD Lauren Godwin Work Phone: [facility] 01-09-2024 19:01-0400 Respiratory rate 18 /min MD Lauren Godwin Work Phone: [facility] 01-09-2024 19:01-0400 SaO2% (BldA) [Mass fraction] 97 % MD Lauren Godwin Work Phone: [facility] 01-09-2024 19:01-0400 Systolic blood pressure 190 mm[Hg] MD Lauren Godwin Work Phone: [facility] 01-09-2024 14:29-0400 Body height 187.96 cm MD Lauren Godwin Work Phone: [facility] 01-09-2024 14:29-0400 Body temperature 98.3 [degF] MD Lauren Godwin Work Phone: [facility] 01-09-2024 14:29-0400 Body weight 83 kg MD Lauren Godwin Work Phone: [facility] 12-18-2023 13:10-0400 Heart rate 85 /min MD Lauren Godwin Work Phone: [facility] 12-18-2023 13:09-0400 Body temperature 97.9 [degF] MD Lauren Godwin Work Phone: [facility] 12-18-2023 13:09-0400 Diastolic blood pressure 77 mm[Hg] MD Lauren Godwin Work Phone: [facility] 12-18-2023 13:09-0400 Respiratory rate 18 /min MD Lauren Godwin Work Phone: [facility] 12-18-2023 13:09-0400 SaO2% (BldA) [Mass fraction] 97 % MD Lauren Godwin Work Phone: [facility] 12-18-2023 13:09-0400 Systolic blood pressure 161 mm[Hg] MD [facility]win [facility] [facility] 12-18-2023 13:06-0400 Body height 186.69 cm MD Lauren Godwin Work Phone: [facility] 12-18-2023 13:06-0400 Body weight 81 kg MD Lauren Godwin Work Phone: [facility] 03-03-2023 13:30-0400 Diastolic blood pressure 100 mm[Hg] MD Lauren Godwin Work Phone: [facility] 03-03-2023 13:30-0400 Heart rate 59 /min MD Lauren Godwin Work Phone: [facility] 03-03-2023 13:30-0400 Respiratory rate 18 /min MD Lauren Godwin Work Phone: [facility] 03-03-2023 13:30-0400 SaO2% (BldA) [Mass fraction] 99 % MD Lauren Godwin Work Phone: [facility] 03-03-2023 13:30-0400 Systolic blood pressure 160 mm[Hg] MD Lauren Godwin Work Phone: [facility] 03-03-2023 11:36-0400 Body height 175.26 cm MD Lauren Godwin Work Phone: [facility] 03-03-2023 11:36-0400 Body temperature 98 [degF] MD Lauren Godwin Work Phone: [facility] 03-03-2023 [id number] Body weight 84.3 kg MD Lauren Godwin Work Phone: [facility] Encounters Encounter Date Encounter Type Care Provider Facility Start: 08-09-2024 End: 08-09-2024 Emergency department patient visit SHIV DICKERSON [facility] Start: 04-06-2024 End: 04-06-2024 ambulatory [facility] Start: 01-09-2024 End: 01-09-2024 Emergency department patient visit Lauren Godwin Facility:[facility] Start: 01-09-2024 End: 01-09-2024 Emergency department patient visit MD Lauren Godwin Work Phone: [facility] Work Phone: Start: 12-18-2023 End: 12-18-2023 Emergency department patient visit Marie Garrison Facility:[facility] Start: 12-18-2023 End: 12-18-2023 Emergency department patient visit MD Lauren Godwin Work Phone: [facility] Work Phone: Start: 12-09-2023 End: 12-09-2023 ambulatory [facility] Start: 06-07-2023 End: [facility]: 05-27-2023 End: 05-27-2023 ambulatory [facility] Start: 03-03-2023 End: 03-03-2023 Emergency department patient visit Ramiro Cortez Facility:[facility] Start: 03-03-2023 End: 03-03-2023 Emergency department patient visit MD Lauren Godwin Work Phone: [facility] Work Phone: Start: 01-10-2023 End: 01-11-2023 Evaluation and management of inpatient DR DOCTOR CROCKER Facility:[facility]1 Procedures Date Procedure Procedure Detail Performing Clinician Start: 01-09-2024 CT angiography of thorax MD Lauren Godwin Work Phone: Start: 01-09-2024 Plain chest X-ray MD Valdivia Work Phone: Start: 03-03-2023 Plain chest X-ray MD Valdivia Work Phone: Plan of Treatment Date Care Activity Detail Author Start: 12-18-2023 [facility] Patient Education [facility] Work Phone: Patient referral [facility] Work Phone: Payers Date Payer Category Payer Self-pay [id number] 2022 Unknown [id number] 1960 Medicare [id number] 1950 Unknown [id number] 1950 Unknown [id number] Unknown [id number] Unknown [id number] [id number] Unknown [id number] [id number] [id number] Social History Date Type Detail Facility Start: 03-03-2023 End: 01-09-2024 Tobacco smoking status NHIS Ex-smoker (finding) [facility] Start: 1950 Sex Assigned At Male F [facility] Progress note 04-06-2024 Note Date & Type Note Facility 04-06-2024 Note [facility] Subjective Jeb Riddle is a 73 y.o. year old male patient here for a follow up echo from January, he was amitted to [facility], for chest pain a couple weeks ago and had another echo. He had a lipid panel yesterday. At last appointment his statin was changed. 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 He still rides his bike to [employer] everyday, still active. Patient Active Problem List [...] Substance Use Topics Alcohol use: Yes HPI Ejb is seen in follow-up. He is a [...] He was admitted to the hospital at [facility] and was started on anticoagulation therapy. [...] metoprolol succinate XL (more content not included)... [facility] Progress note 12-09-2023 Note Date & Type Note Facility 12-09-2023 Note 8K can you read, out of the so I can make changes in [place] [facility] Subjective Jeb Riddle is a [...] presented to the emergency room at the [facility] and investigation including a CT scan [...] Rfl: 3 prav (more content not included)... [facility] Progress note 06-07-2023 Note Date & [...] Heart Sounds: norm (more content not included)... [facility] Progress note 05-27-2023 Note Date & Type Note Facility 05-27-2023 Note [place] [facility] Heart [...] Rate 04/06/2023 80 Atrial Rate 04/06/2023 80 RI Interval 04/06/2023 176 QRS DURATION 04/06/2023 98 QT Interval 04/06/2023 396 QTC CALCULATION(BAZETT) 04/06/2023 456 P [place] 04/06/2023 79 R-[place] 04/06/2023 75 T Wave [place] 04/06/2023 73 Imaging and other tests Cardiac catheterization 04/06/2023: Impression/Findings: Coronary angiogram shows non-obstructive coronary artery disease. Plan: Medical therapy for (more content not included)... [facility] Evaluation note Note Date & Type Note Facility Evaluation note No assessment information availa ble [facility] Work Phone: Hospital Discharge instructions Note Date & Type Note Facility Hospital Discharge instructions Additional Instructions Continue Pepcid once or twice a day as needed [place] diet Follow-up with your family doctor for recheck Return to the ER for worsening pain shortness of breath fever or any other concerns [facility] Work Phone: Summary Purpose Family History [...] section and content) DATE CREATED AUTHOR 10/07/2021 [facility] DATE CREATED AUTHOR AUTHOR'S ORGANIZ ATION 01/21/2023 [facility] DATE CREATED AUTHOR AUTHOR'S ORGANIZ ATION 01/09/2024 [facility] DATE CREATED AUTHOR AUTHOR'S ORGANIZ ATION 04/20/2024 [facility] DATE CREATED AUTHOR AUTHOR'S ORGANIZ ATION 08/10/2024 [facility] Care Teams (unrecognized sec tion and [...] 2024 End: January 09, 2024 Naima Boyd [facility] Emergency Provider Active Start: January 09, [...] CLINICAL RECORDS. [facility] [employer] [facility]. provides no warranty or guarantee of the accuracy or completeness of information in this document.
--- NOTE | 2024-08-31 08:07 | P.HP_ITS ---
HPI H&P: HPI History of Present Illness Chief complaint: ABDOMINAL PAIN SMALL BOWEL OBSTRUCTION Narrative: Patient well-known to me from office care, presented to the emergency room last night with increasing abdominal pain consistent with his previous bowel obstructions, acute abdominal series did not show any acute or obstruction, patient was given IV steroids felt a little bit better and sent home, patient became worse about an hour after discharge, presented and CT scan done this time shows small bowel obstruction. Patient admitted for workup and treatment of same. When I saw patient in the emergency room, resting fairly comfortably in bed and already been medicated, nausea vomiting resolved, still has abdominal tenderness on exam Opioid HPI Opioid Management Most Recent Pain and Opioid Data: Last Pain Scale 10 08/31/24 02:56 08/31/24 Last ED Pain Assessment 08/31/24 02:56 Last ORT Total Score 0 03/19/24 21:48 03/19/24 Last ORT Risk Category Low Risk 03/19/24 21:48 03/19/24 Review of Systems ROS Status of ROS 10 or more systems reviewed and unremark able except as noted in history and below PFSH [facility] Medical History Pulmonary embolism ?I26.99 - Other pulmonary embolism without acute cor pulmonale (ICD-10) Chest pain ?R07.9 - Chest pain, unspecified (ICD-10) DVT (deep venous thrombosis) ?I82.409 - Acute embolism and thrombosis of unspecified deep veins of unspecified lower extremity (ICD-10) Dehydration ?E86.0 - Dehydration (ICD-10) DAVID (acute kidney injury) ?N17.9 - Acute kidney failure, unspecified (ICD-10) Abdominal pain ?R10.9 - Unspecified abdominal pain (ICD-10) Nausea & vomiting ?R11.2 - Nausea with vomiting, unspecified (ICD-10) Hypertension ?I10 - Essential (primary) hypertension (ICD-10) Crohn disease ?K50.90 - Crohn's disease, unspecified, without complications (ICD-10) Surgical History H/O hernia repair ?Z98.890 - Other specified postprocedural states (ICD-10) ?Z87.19 - Personal history of other diseases of the digestive system (ICD-10) History of bowel resection ?Z90.49 - Acquired absence of other specified parts of digestive tract (ICD- 10) Family History (Updated 03/13/23 @ 20:02 by Bita Cyr RN) Father Family history of COPD (chronic obstructive pulmonary disease) Family history of diabetes mellitus Family history of myocardial infarction Brother Family history of cancer Mother Family history of diabetes mellitus Other Family history of hypertension Social History Within the past year, how often did you have a drink containing alcohol: 2-3 times a week Within the past year, how many standard drinks containing alcohol did you have on a typical day: 1 or 2 Within the past year, how often did you have six or more drinks on one occasion: never Total score: 0 Score interpretation: A score less than 4 is consistent with normal alcohol consumption. 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 Little interest or pleasure in doing things: not at all Feeling down, depressed, or hopeless: not at all Feel stressed/tense/nervous/anxious/difficulty sleeping: not at all Do you think of yourself as: straight/heterosexual Gender Identity: male Meds Home Medications and Allergies Home Medications ?Medication ?Instructions ?Recorded ?Confirmed ?Type lisinopril 5 mg tablet 40 mg PO DAILY 02/25/23 08/31/24 History mesalamine 400 mg capsule (with 800 mg PO BID 02/25/23 08/31/24 History delayed release tablets inside) isosorbide mononitrate 30 mg 30 mg PO QAM #30 tabs 03/14/23 08/31/24 Rx tablet,extended release 24 hr ondansetron 8 mg disintegrating 8 mg PO Q8H PRN nausea and vomiting 09/02/23 08/31/24 History tablet clonidine HCl 0.1 mg tablet 0.1 mg PO BID 03/19/24 08/31/24 History apixaban 5 mg tablet (Eliquis) 5 mg PO BID 08/31/24 08/31/24 History lorazepam 1 mg tablet (Ativan) 1 mg PO BID PRN anxiety 08/31/24 08/31/24 History Allergies Allergy/AdvReac Type Severity Reaction Status Date / Time Fish Containing Products AdvReac Severe Abdominal Verified 08/31/24 02:45 Pain Exam Constitutional Vital Signs, click to edit/add: Last Vital Signs Temp 97.5 F L 08/31/24 07:54 Pulse 88 08/31/24 07:54 Resp 18 08/31/24 07:54 BP 191/100 H 08/31/24 07:54 Pulse Ox 95 08/31/24 07:54 O2 Del Method Room Air 08/31/24 07:54 Documenting provider has reviewed patient's vital signs: yes Common normals: no apparent distress (This is after being medicated) Chest Common normals: inspection of chest normal Respiratory Common normals: normal respiratory effort, no retractions and clear to auscultation bilaterally Cardio Common normals: regular rate and regular rhythm GI Common normals: soft to palpation; negative for Normal to inspection, nondistended, normoactive bowel sounds prese nt and tender Auscultation: hypoactive bowel sounds Palpation: tender (Diffusely tender but no rebound tenderness) Assessment and Plan Assessment and Plan (1) Small bowel obstruction: (2) Abdominal pain: (3) Elevated blood pressure reading: (4) Uncontrolled hypertension: (5) UTI (urinary tract infection): (6) DVT (deep venous thrombosis): (7) Crohn disease: Plan Admission findings: Sinus tachycardia, uncontrolled hypertension, CT scan findings could significant for small bowel obstruction consistent with his history of Crohn's disease, elevated creatinine and a positive urinalysis Acute small bowel obstruction-secondary to Crohn's-IV steroids, holding off on IV antibiotics, he has no rebound tenderness white blood cell count is normal and no left shift Dehydration with acute elevation in creatinine, baseline creatinine of 1.16 with admission creatinine of 1.49, that is 128.4% above baseline - IV fluids Uncontrolled hypertension-improved currently with pain control, monitor closely, holding off on oral antihypertensive secondary to the small bowel obstruction Coronary artery disease-holding off on oral medications for coronary artery disease, topical nitrates for now, DVT-give 1 dose of Lovenox, once bowel obstruction resolves can restart oral anticoagulants Generalized anxiety disorder-May need IV Ativan due to small bowel obstruction Admission status: Patient was seen and evaluated for abdominal pain, this x-ray showed no small bowel obstruction, patient returned a couple hours later and found to have a small bowel obstruction, medically necessary treatment will span 2 midnights. Inpatient status.
[2024-08-31 08:24] LABS: Hematocrit 40.5 % (42.0-54.0); Hemoglobin 13.9 g/dL (14.0-18.0); Immature Granulocytes Abs Auto 0.03 10^3/uL (0.00-0.03); Immature Granulocytes Pct Auto 0.4 % (0.0-0.5); Lymphocytes Absolute Auto 0.8 10^3/uL (1.2-3.8); Lymphocytes Percent Auto 9.5 % (20.5-60.0); Mean Corpuscular HGB Conc 34.3 g/dL (29.9-35.2); Mean Corpuscular Hemoglobin 32.3 pg (25.9-34.0); Mean Corpuscular Volume 94.2 fL (80.0-94.0); Mean Platelet Volume 9.8 fL (9.5-13.5); Monocytes Absolute Auto 0.1 10^3/uL (0.3-0.8); Monocytes Percent Auto 0.6 % (1.7-12.0); Neutrophils Absolute Auto 7.6 10^3/uL (1.4-6.5); Neutrophils Percent Auto 89.5 % (43.0-75.0); Platelet Count 230 10^3/uL (150-450); Red Cell Distribution Width 12.7 % (11.0-15.0); White Blood Count 8.5 10^3/uL (4.0-11.0)
[2024-08-31 08:41] LABS: Anion Gap 15.2; BUN Creatinine Ratio 24.1; Calcium 8.3 mg/dL (8.5-10.1); Carbon Dioxide 22.9 mmol/L (21.0-32.0); Chloride 110 mmol/L (98-107); Estimated GFR (African America >60 (>=60 mL/min/1.73m^2); Estimated GFR (Non-African Ame 53 (>=60 mL/min/1.73m^2); Glucose 163 mg/dL (74-106); Potassium 5.1 mmol/L (3.5-5.1); Sodium 143 mmol/L (136-145)
[2024-08-31] MEDS: METHYLPREDNISOLONE SOD SUCC PF 125 MG/2 ML VIAL IVP ×3 (08:42→21:40)
[2024-08-31] MEDS: HYDRALAZINE HCL 20 MG/ML VIAL 10 MG IVP ×3 (08:42→15:43)
[2024-08-31] MEDS: LACTATED RINGER'S SOLUTION 1,000 ML 100 ML IV ×2 (08:42→21:40)
[2024-08-31 08:54] LABS: Magnesium 1.5 mg/dL (1.8-2.4)
[2024-08-31] MEDS: NITROGLYCERIN 2% 1 GRAM PACKET 0.5 GM TD ×2 (09:31→14:40)
[2024-08-31] MEDS: MAGNESIUM SULFATE IN WATER 4 GM/100 ML PIGGYBACK IV (11:16)
[2024-08-31] MEDS: 0.9 % SODIUM CHLORIDE 1,000 ML 500 ML IV ×2 (11:16→17:15)
[2024-08-31 12:44] LABS: Glucometer 148 mg/dL (74-106)
--- NOTE | 2024-08-31 15:09 | ECG_ITS ---
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
[2024-08-31] MEDS: METOPROLOL TARTRATE 5 MG/5 ML VIAL IVP (15:10)
[2024-08-31] MEDS: LORAZEPAM 2 MG/ML VIAL 1 MG IV (15:22)
[2024-08-31 15:42] LABS: Troponin I High Sensitivity 20.9 pg/mL (4.0-76.1)
[2024-08-31 16:03] LABS: Anion Gap 19.6; BUN Creatinine Ratio 21.5; Calcium 9.1 mg/dL (8.5-10.1); Carbon Dioxide 19.9 mmol/L (21.0-32.0); Chloride 108 mmol/L (98-107); Estimated GFR (African America 58 (>=60 mL/min/1.73m^2); Estimated GFR (Non-African Ame 48 (>=60 mL/min/1.73m^2); Glucose 160 mg/dL (74-106); Potassium 4.5 mmol/L (3.5-5.1); Sodium 143 mmol/L (136-145)
--- NOTE | 2024-08-31 16:51 | ECG_ITS ---
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
--- NOTE | 2024-08-31 17:05 | PM.PN ---
Progress Note: Subjective Subjective Interval history: Called to see pt or SVT - transferred back to - rpeataed dose ativan and hydralazine and tachyardia and hypertensive urgency (NARANJO, CP, SBP>200), improved Exam Constitutional Vital Signs, click to edit/add: Last Vital Signs Temp 98.2 F 08/31/24 16:00 Pulse 104 H 08/31/24 16:00 Resp 24 H 08/31/24 16:00 BP 138/77 08/31/24 16:00 Pulse Ox 96 08/31/24 16:00 O2 Del Method Room Air 08/31/24 16:00 O2 Flow Rate 2 08/31/24 15:43 Documenting provider has reviewed patient's vital signs: yes Common normals: apparent distress (air hunger) Respiratory Common normals: abnormal respiratory effort (tachypnic) Cardio Rate: tachycardic Progress Note: Objective Labs Labs: Short CBC 08/31/24 Range/Units 08:15 WBC 8.5 (4.0-11.0) 10^3/uL Hgb 13.9 L (14.0-18.0) g/dL Hct 40.5 L (42.0-54.0) % Plt Count 230 (150-450) 10^3/uL BMP 08/31/24 08/31/24 08:15 15:20 Sodium 143 143 Potassium 5.1 4.5 Chloride 110 H 108 H Carbon Dioxide 22.9 19.9 L BUN 32.0 H 31.0 H Creatinine 1.33 H 1.44 H Glucose 163 H 160 H Calcium 8.3 L 9.1 Progress Note: A&P Assessment and Plan (1) Small bowel obstruction: (2) Abdominal pain: (3) Elevated blood pressure reading: (4) Uncontrolled hypertension: (5) UTI (urinary tract infection): (6) DVT (deep venous thrombosis): (7) Crohn disease: Plan SVT: iporved wtih improvemn it Hypertensive urgency ICU time 30 min coordinating meds andstabilizing pt, establishing lnger term PRN plan
--- NOTE | 2024-08-31 17:08 | PC.NURSE ---
Patient called out for RN to come in. Patient stated he did not feel well, he was SOB and felt his heart rate was high. 2L of O2 nasal cannula were placed on patient and vitals were taken. BP: 207/94, HR: 147 and spo2 98% on 2L O2 nasal cannula. Dr. Godwin was called and he put in for a stat EKG, troponin x3, Ativan 1mg and 10mg of Hydralazine. A rapid response was called by Valorie Ceballos RN. Dr. Du responded, DOG SHOW JUDGE, Cardio, Lab and med surg RNs. EKG was taken and showed SVT. 5mg of Lopressor was given and patients HR came down to the low 100s. Cardiac markers taken, BMP, and electrolytes by lab. Vitals were taken again.. BP: 181/71 and HR 18. Ativan 1mg was given. Patient was moved over to ICU at 1523.
[2024-08-31] MEDS: MAALOX (MAG HYDROX/ALUMINUM HYD/SIMETH) 30 ML ORAL.SUSP PO (17:09)
[2024-08-31] MEDS: PANTOPRAZOLE SODIUM 40 MG VIAL IV (17:09)
[2024-08-31 22:52] LABS: Troponin I High Sensitivity 238.9 pg/mL (4.0-76.1)
--- NOTE | 2024-08-31 23:06 | ECG_ITS ---
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
[2024-08-31 23:48] LABS: INR 1.08; Partial Thromboplastin Time 26.1 sec (22.3-36.2); Prothrombin Time 11.4 sec (9.0-11.6)
[2024-09-01] VITALS (43 sets, daily range): BP systolic 137–207; BP diastolic 68–108; PULSE 60–108; TEMP 36.6–36.9; O2SAT 93–96
[2024-09-01] MEDS: HEPARIN SODIUM (PORCINE) 5,000 UNIT/ML VIAL 3400 UNIT IV (00:12)
[2024-09-01] MEDS: HEPARIN SODIUM,PORCINE/D5W 25,000 UNIT/500 ML IV.SOLN 20 UNIT IV (00:13)
--- NOTE | 2024-09-01 00:54 | CT_ITS ---
The [address] [address] Patient Name: JEB TOBIAS MRN: [id number] date: 1950 Sex: M Assigned Patient Location: ICU Current Patient Location: ICU Accession/Order Number: [id number] Exam Date: 09/01/2024 01:00 Report Date: 09/01/2024 01:27 At the request of: MARIE HENDRIX Procedure: CT stroke head/brain wo con EXAM: CT stroke head/brain wo con INDICATION: 73 years old; Male. Change in mental status. TECHNIQUE: CT Head (ax/cor/sag reformats). Ionizing radiation dose reduced via iterative reconstruction/FBP blend and body size kV/mA adjustment. Comparison: CT dated 12/02/2023. FINDINGS: POSTOPERATIVE CHANGES: None. BRAIN PARENCHYMA: No intraparenchymal or extra-axial hemorrhage. No mass effect. No midline shift or herniation. Patchy and confluent low-density seen in the right ventricular and subcortical white matter without mass effect. VENTRICLES/EXTRA-AXIAL SPACES: Normal for patient's age. SINUSES/MASTOIDS: The visualized sinuses are clear although the paranasal sinuses are not completely included. Mastoids and middle ears are clear. MSK: No displaced or depressed calvarial fracture. OTHER: No hyperdense intraluminal thrombus. Vascular calcifications are present. CT/CT stroke head/brain wo con IMPRESSION: 1. No acute intracranial abnormality. No hemorrhage or mass effect. 2. Nonspecific white matter changes. 3. Vascular calcifications. If there is concern for acute infarction, then MRI including diffusion imaging would be more sensitive. A note was placed in the stat folder for notification the provider at 1:23 AM on 09/01/2024. Electronically authenticated by: DESTINI TAVERAS Date: 09/01/2024 01:27
[2024-09-01] MEDS: METHYLPREDNISOLONE SOD SUCC PF 125 MG/2 ML VIAL IVP (04:13)
[2024-09-01] MEDS: PANTOPRAZOLE SODIUM 40 MG VIAL IV ×2 (05:34→16:07)
[2024-09-01 05:56] LABS: Hematocrit 35.8 % (42.0-54.0); Hemoglobin 12.4 g/dL (14.0-18.0); Immature Granulocytes Abs Auto 0.08 10^3/uL (0.00-0.03); Immature Granulocytes Pct Auto 0.6 % (0.0-0.5); Lymphocytes Absolute Auto 1.1 10^3/uL (1.2-3.8); Lymphocytes Percent Auto 8.5 % (20.5-60.0); Mean Corpuscular HGB Conc 34.6 g/dL (29.9-35.2); Mean Corpuscular Hemoglobin 32.5 pg (25.9-34.0); Mean Platelet Volume 10.1 fL (9.5-13.5); Monocytes Absolute Auto 0.3 10^3/uL (0.3-0.8); Monocytes Percent Auto 1.9 % (1.7-12.0); Neutrophils Absolute Auto 11.7 10^3/uL (1.4-6.5); Platelet Count 272 10^3/uL (150-450); Red Blood Count 3.81 10^6/uL (4.70-6.10); Red Cell Distribution Width 13.1 % (11.0-15.0); White Blood Count 13.1 10^3/uL (4.0-11.0)
[2024-09-01 06:08] LABS: Anion Gap 16.3; BUN Creatinine Ratio 21.3; Calcium 8.6 mg/dL (8.5-10.1); Carbon Dioxide 20.4 mmol/L (21.0-32.0); Chloride 108 mmol/L (98-107); Estimated GFR (African America >60 (>=60 mL/min/1.73m^2); Estimated GFR (Non-African Ame 55 (>=60 mL/min/1.73m^2); Glucose 151 mg/dL (74-106); Potassium 4.7 mmol/L (3.5-5.1); Sodium 140 mmol/L (136-145)
[2024-09-01 06:29] LABS: Troponin I High Sensitivity 599.4 pg/mL (4.0-76.1)
--- NOTE | 2024-09-01 06:52 | XR_ITS ---
[address] [address] Patient Name: JEB TOBIAS MRN: [id number] date: 1950 Sex: M Assigned Patient Location: ICU Current Patient Location: ICU Accession/Order Number: [id number] Exam Date: 09/01/2024 07:15 Report Date: 09/01/2024 08:20 At the request of: LAUREN VALLEJO Procedure: XR acute abdomen series Exam: Radiographs: XR acute abdomen series Reason for exam: follow up sbo Comparison: Plain films from 08/30/2024 XR/XR acute abdomen series IMPRESSION: No free intraperitoneal air. No gas-filled dilated loops of small bowel or colon. No gaseous dilation of the stomach. No fecal impaction. Right nephrolithiasis. Hyperinflation of both lungs. Remainder unremarkable. Electronically authenticated by: ADITYA OATES Date: 09/01/2024 08:20
--- NOTE | 2024-09-01 07:50 | ECG_ITS ---
The 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
[2024-09-01] MEDS: NITROGLYCERIN 2% 1 GRAM PACKET 0.5 GM TD ×2 (08:11→14:49)
[2024-09-01] MEDS: LACTATED RINGER'S SOLUTION 1,000 ML 100 ML IV (08:11)
[2024-09-01 08:19] LABS: PTT Heparin Monitor 35.3 sec (43.5-61.5)
[2024-09-01] MEDS: LORAZEPAM 2 MG/ML VIAL 1 MG IV (08:21)
--- NOTE | 2024-09-01 08:26 | PC.NURSE ---
offered hydralazine for pts increased bp. pt refused, stated it made me go into svt.
[2024-09-01] MEDS: HEPARIN SODIUM,PORCINE/D5W 25,000 UNIT/500 ML IV.SOLN 22 UNIT IV (08:37)
[2024-09-01] MEDS: CLONIDINE HCL 0.1 MG TABLET PO ×2 (10:29→21:44)
--- NOTE | 2024-09-01 11:52 | PC.NURSE ---
report called to alexandra [facility] per pt.
--- NOTE | 2024-09-01 12:19 | P.PN_ITS ---
Progress Note: Subjective Subjective Interval history: Patient's episode of SVT yesterday, he does feel somewhat better this morning, heart rate is improved. Exam Constitutional Vital Signs, click to edit/add: Last Vital Signs Temp 98 F 09/01/24 08:00 Pulse 91 H 09/01/24 11:10 Resp 19 09/01/24 11:10 BP 162/83 H 09/01/24 10:32 Pulse Ox 95 09/01/24 10:53 O2 Del Method Room Air 09/01/24 10:53 O2 Flow Rate 2 08/31/24 15:43 Documenting provider has reviewed patient's vital signs: yes Common normals: apparent distress (air hunger) Chest Common normals: inspection of chest normal Respiratory Common normals: normal respiratory effort Cardio Common normals: regular rate and regular rhythm Rate: not tachycardic GI Common normals: Normal to inspection, nondistended, normoactive bowel sounds present, soft to palpation and non-tender Progress Note: Objective Labs Labs: Short CBC 09/01/24 Range/Units 05:36 WBC 13.1 H (4.0-11.0) 10^3/uL Hgb 12.4 L (14.0-18.0) g/dL Hct 35.8 L (42.0-54.0) % Plt Count 272 (150-450) 10^3/uL BMP 08/31/24 09/01/24 15:20 05:36 Sodium 143 140 Potassium 4.5 4.7 Chloride 108 H 108 H Carbon Dioxide 19.9 L 20.4 L BUN 31.0 H 27.0 H Creatinine 1.44 H 1.27 Glucose 160 H 151 H Calcium 9.1 8.6 Progress Note: A&P Assessment and Plan (1) Small bowel obstruction: (2) Abdominal pain: (3) Elevated blood pressure reading: (4) Uncontrolled hypertension: (5) UTI (urinary tract infection): (6) DVT (deep venous thrombosis): (7) Crohn disease: Plan Admission findings: Sinus tachycardia, uncontrolled hypertension, CT scan findings could significant for small bowel obstruction consistent with his history of Crohn's disease, elevated creatinine and a positive urinalysis Acute small bowel obstruction-secondary to Crohn's-maintain steroids through today, acute abdominal series is unremarkable, advance diet Acute, resulting from SVT yesterday, troponins peaked at over 500, is trending down to 430, patient placed on heparin drip, case discussed with cardiology feels it was just rate related, as long as heart rate stays good and troponin continues to trend down no further intervention is necessary. Finish heparin fo r today, restart Sondra, takes that for DVT, if remains stable EKG remains unchanged, possible discharge tomorrow morning with outpatient workup Dehydration with acute elevation in creatinine, baseline creatinine of 1.16 with admission creatinine of 1.49, that is 128.4% above baseline -much improved, back to baseline Uncontrolled hypertension-improved currently with pain control, monitor closely, holding off on oral antihypertensive secondary to the small bowel obstruction- much improved, back to baseline Coronary artery disease--see above DVT--currently on heparin, will change to [place] later today Generalized anxiety disorder-May need IV Ativan due to small bowel obstruction Admission status: Patient was seen and evaluated for abdominal pain, this x-ray showed no small bowel obstruction, patient returned a couple hours later and found to have a small bowel obstruction, medically necessary treatment will span 2 midnights. Inpatient status. In addition to the small bowel obstruction, patient had acute NSTEMI, improving currently, continue current treatment plan through today, likely discharge tomorrow ?
[2024-09-01 13:19] LABS: Troponin I High Sensitivity 559.3 pg/mL (4.0-76.1)
[2024-09-01 14:47] LABS: PTT Heparin Monitor 48.2 sec (43.5-61.5)
[2024-09-01 20:13] LABS: PTT Heparin Monitor 66.1 sec (43.5-61.5)
[2024-09-01] MEDS: METOPROLOL TARTRATE 25 MG TABLET PO (21:44)
[2024-09-02] VITALS (20 sets, daily range): BP systolic 116–159; BP diastolic 64–86; PULSE 50–94; TEMP 36.4–36.7; O2SAT 93–97
[2024-09-02] MEDS: LORAZEPAM 2 MG/ML VIAL 1 MG IV (01:45)
[2024-09-02 02:18] LABS: PTT Heparin Monitor 91.1 sec (43.5-61.5)
[2024-09-02] MEDS: PANTOPRAZOLE SODIUM 40 MG VIAL IV (05:47)
[2024-09-02 06:15] LABS: Eosinophils Percent Auto 0.2 % (0.9-7.0); Hematocrit 35.3 % (42.0-54.0); Hemoglobin 11.7 g/dL (14.0-18.0); Immature Granulocytes Abs Auto 0.04 10^3/uL (0.00-0.03); Immature Granulocytes Pct Auto 0.4 % (0.0-0.5); Lymphocytes Absolute Auto 1.6 10^3/uL (1.2-3.8); Lymphocytes Percent Auto 17.8 % (20.5-60.0); Mean Corpuscular HGB Conc 33.1 g/dL (29.9-35.2); Mean Corpuscular Hemoglobin 31.4 pg (25.9-34.0); Mean Corpuscular Volume 94.6 fL (80.0-94.0); Monocytes Absolute Auto 0.3 10^3/uL (0.3-0.8); Monocytes Percent Auto 3.7 % (1.7-12.0); Neutrophils Absolute Auto 7.1 10^3/uL (1.4-6.5); Neutrophils Percent Auto 77.9 % (43.0-75.0); Platelet Count 197 10^3/uL (150-450); Red Blood Count 3.73 10^6/uL (4.70-6.10); White Blood Count 9.1 10^3/uL (4.0-11.0)
[2024-09-02 06:27] LABS: Anion Gap 12.2; BUN Creatinine Ratio 23.8; Calcium 8.3 mg/dL (8.5-10.1); Carbon Dioxide 26.2 mmol/L (21.0-32.0); Chloride 109 mmol/L (98-107); Estimated GFR (African America >60 (>=60 mL/min/1.73m^2); Estimated GFR (Non-African Ame 56 (>=60 mL/min/1.73m^2); Glucose 108 mg/dL (74-106); Potassium 4.4 mmol/L (3.5-5.1); Sodium 143 mmol/L (136-145)
[2024-09-02 07:10] LABS: Troponin I High Sensitivity 600.2 pg/mL (4.0-76.1)
[2024-09-02 08:11] LABS: PTT Heparin Monitor 47.6 sec (43.5-61.5)
--- NOTE | 2024-09-02 08:31 | ECG_ITS ---
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
[2024-09-02] MEDS: PREDNISONE 20 MG TABLET 40 MG PO (09:07)
[2024-09-02] MEDS: APIXABAN 5 MG TABLET PO ×2 (09:07→20:29)
[2024-09-02] MEDS: CLONIDINE HCL 0.1 MG TABLET PO ×2 (09:07→23:30)
[2024-09-02] MEDS: NITROGLYCERIN 2% 1 GRAM PACKET 0.5 GM TD ×2 (09:07→13:57)
[2024-09-02] MEDS: LISINOPRIL 5 MG TABLET 40 MG PO (09:10)
[2024-09-02 10:44] LABS: Troponin I High Sensitivity 471.2 pg/mL (4.0-76.1)
--- NOTE | 2024-09-02 10:45 | P.PN_ITS ---
Progress Note: Subjective Subjective Interval history: Abdominal pain is much better, just having tiny bowel movements however, no chest pain, Exam Constitutional Vital Signs, click to edit/add: Last Vital Signs Temp 98.0 F 09/02/24 07:56 Pulse 54 L 09/02/24 08:00 Resp 16 09/02/24 07:56 BP 153/78 H 09/02/24 07:56 Pulse Ox 93 L 09/02/24 07:56 O2 Del Method Room Air 09/02/24 07:56 O2 Flow Rate 2 08/31/24 15:43 Documenting provider has reviewed patient's vital signs: yes Common normals: apparent distress (air hunger) Chest Common normals: inspection of chest normal Respiratory Common normals: normal respiratory effort Cardio Common normals: regular rate and regular rhythm Rate: not tachycardic GI Common normals: Normal to inspection, nondistended, normoactive bowel sounds present, soft to palpation and non-tender Progress Note: Objective Labs Labs: Short CBC 09/02/24 Range/Units 06:06 WBC 9.1 (4.0-11.0) 10^3/uL Hgb 11.7 L (14.0-18.0) g/dL Hct 35.3 L (42.0-54.0) % Plt Count 197 (150-450) 10^3/uL BMP 09/02/24 06:06 Sodium 143 Potassium 4.4 Chloride 109 H Carbon Dioxide 26.2 BUN 30.0 H Creatinine 1.26 Glucose 108 H Calcium 8.3 L Progress Note: A&P Assessment and Plan (1) Small bowel obstruction: (2) Abdominal pain: (3) Elevated blood pressure reading: (4) Uncontrolled hypertension: (5) UTI (urinary tract infection): (6) DVT (deep venous thrombosis): (7) Crohn disease: Plan Admission findings: Sinus tachycardia, uncontrolled hypertension, CT scan findings could significant for small bowel obstruction consistent with his history of Crohn's disease, elevated creatinine and a positive urinalysis Acute small bowel obstruction-secondary to Crohn's-maintain steroids through today, acute abdominal series is unremarkable, advance diet and change to oral steroids Acute nstemi, resulting from SVT , troponin elevation persisting, up over 600 now, discussed case with cardiology with no significant change on EKG, maintain current treatment plan if patient's condition deteriorates will transfer to [facility], echocardiogram in a.m., needs to maintain on telemetry and adjust medications frequently so unable to discharge today Dehydration with acute elevation in creatinine, baseline creatinine of 1.16 with admission creatinine of 1.49, that is 128.4% above baseline -saline lock Uncontrolled hypertension-still up somewhat today at times, will add Norvasc Coronary artery disease--see above DVT--currently on heparin, will change to Eliquis later today Generalized anxiety disorder-May need IV Ativan due to small bowel obstruction Admission status: Patient was seen and evaluated for abdominal pain, this x-ray showed no small bowel obstruction, patient returned a couple hours later and found to have a small bowel obstruction, medically necessary treatment will span 2 midnights. Inpatient status. In addition to the small bowel obstruction, patient had acute NSTEMI, improving currently, continue current treatment plan through today, likely discharge tomorrow ?
[2024-09-03] VITALS (8 sets, daily range): BP systolic 149–197; BP diastolic 74–96; PULSE 57–84; TEMP 36.5–36.8; O2SAT 93–96
--- NOTE | 2024-09-03 06:00 | CA_ITS ---
Patient Name: JEB TOBIAS MR#: [id number] : 1950 Exam Date: 09/03/2024 Ordering Doctor: DR LAUREN VALLEJO . ECHOCARDIOGRAM REPORT PROCEDURE: CA ECHO LIMITED INDICATIONS: NSTEMI, elevated TROP and BNP, acute kidney injury, hypertension, h/o pulmonary embolism COMPARISON: None. DESCRIPTION: Limited ECHOCARDIOGRAM Real-time transthoracic echocardiography with 2D and M-mode performed. QUALITY: Technical quality was good. Limited Echocardiogram per physician order. LEFT VENTRICLE: Normal chamber size. Mild concentric left ventricular hypertrophy. Normal systolic function. No segmental wall motion abnormalities. LV EF: Visual estimation of left ventricular ejection fraction is 65-70%. DIASTOLIC: ATRIAL SEPTUM: LEFT ATRIUM: Normal chamber size. RIGHT ATRIUM: Normal chamber size. RIGHT VENTRICLE: Normal chamber size. Normal systolic function. TRICUSPID VALVE: Normal mobility and thickness. MITRAL VALVE: Normal mobility and thickness. There is no mitral annular calcification. AORTIC VALVE: Normal trileaflet appearance. Normal leaflet mobility. AORTIC ROOT: Normal diameter and appearance. PULMONIC VALVE: Normal thickness and mobility. PERICARDIUM: No evidence of pericardial effusion. IVC: Within normal limits. PLEURA: CONCLUSION: 1. Mild concentric left ventricular hypertrophy with normal systolic function and no wall motion abnormalities. LVEF is estimated at 65 to 70%. 2. Normal right ventricular size and systolic function. 3. No pericardial effusion. 4. Limited study performed with no Doppler interrogation as requested. Adult Echocardiography Procedure Report Left Ventricle LVEDD (3.7 - 5.6 cm): 4.50 cm LVESD (2.2 - 4.0 cm): 3.40 cm LVIVS thickness (0.6 - 1.2 cm): 1.07 cm LVPW thickness (0.5 - 1.0 cm): 1.06 cm LVOT Diameter 2.47 cm Left Atrium LA Volume Index (2D A2C): 29.47 ml/m2 Left Atrium Systolic Dimension: 3.45 cm Mitral Valve Right Ventricle Aorta AO Root Diam: 4.22 cm Aortic Valve Tricuspid Valve Pulmonic Valve Right Atrium Right Atrium Systolic Pressure: 29.48 ml, 26.98 ml, 31.98 ml Dictated by: Bruce Bah M.D. on 09/04/2024 at 18:51 Approved by: Bruce Bah M.D. on 09/04/2024 at 18:52
--- NOTE | 2024-09-03 06:00 | ECG_ITS ---
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
[2024-09-03 06:11] LABS: Eosinophils Absolute Auto 0.1 10^3/uL (0.0-0.7); Eosinophils Percent Auto 0.9 % (0.9-7.0); Hematocrit 36.3 % (42.0-54.0); Hemoglobin 12.3 g/dL (14.0-18.0); Immature Granulocytes Abs Auto 0.03 10^3/uL (0.00-0.03); Immature Granulocytes Pct Auto 0.4 % (0.0-0.5); Lymphocytes Absolute Auto 1.5 10^3/uL (1.2-3.8); Lymphocytes Percent Auto 22.1 % (20.5-60.0); Mean Corpuscular HGB Conc 33.9 g/dL (29.9-35.2); Mean Corpuscular Hemoglobin 32.5 pg (25.9-34.0); Monocytes Absolute Auto 0.4 10^3/uL (0.3-0.8); Monocytes Percent Auto 5.2 % (1.7-12.0); Neutrophils Absolute Auto 4.9 10^3/uL (1.4-6.5); Neutrophils Percent Auto 71.4 % (43.0-75.0); Platelet Count 177 10^3/uL (150-450); Red Blood Count 3.78 10^6/uL (4.70-6.10); Red Cell Distribution Width 12.8 % (11.0-15.0); White Blood Count 6.9 10^3/uL (4.0-11.0)
[2024-09-03 06:35] LABS: Anion Gap 10.4; Calcium 8.3 mg/dL (8.5-10.1); Carbon Dioxide 28.9 mmol/L (21.0-32.0); Chloride 107 mmol/L (98-107); Estimated GFR (African America >60 (>=60 mL/min/1.73m^2); Estimated GFR (Non-African Ame 50 (>=60 mL/min/1.73m^2); Glucose 185 mg/dL (74-106); Potassium 4.3 mmol/L (3.5-5.1); Sodium 142 mmol/L (136-145)
[2024-09-03 08:03] LABS: Troponin I High Sensitivity 189.9 pg/mL (4.0-76.1)
[2024-09-03] MEDS: PANTOPRAZOLE SODIUM 40 MG VIAL IV (08:12)
[2024-09-03] MEDS: APIXABAN 5 MG TABLET PO (08:13)
[2024-09-03] MEDS: AMLODIPINE BESYLATE 5 MG TABLET PO (08:13)
[2024-09-03] MEDS: LISINOPRIL 20 MG TABLET 40 MG PO (08:13)
[2024-09-03] MEDS: CLONIDINE HCL 0.1 MG TABLET PO (08:16)
--- OUTSIDE RECORDS SUMMARY | 2024-09-03 08:20 | XMS_ITS | CCD ---
Author Organization [facility] Care Team Providers Care Carpenter Repairer Name Role Phone DR BEHZAD CROCKER Primary Care Unavailable DANIEL ., JUNI Attending Unavailable DANIEL ., JUNI Admitting Unavailable DR ROBERT DAVENPORT V Consulting Unavailable PITER GROSSMAN Consulting Unavailable DANIEL ., JUNI Consulting Unavailable DIAB ., GRAYSON Consulting Unavailable ADITYA OATES Consulting Unavailable MD Lauren Godwin Primary Care Provider [phone] DO Ramiro Cortez Emergency Provider [phone] MD Lauren Godwin Primary Care Provider [phone] KYA Garrison Emergency Provider Bulldk, HYDRAULICS ENGINEER-BC Naima Phelan Emergency Provider Lauren Godwin Primary [...] Propensity to adverse reactions 03-03-20 Gastrointestinal Upset [facility] (1 source) atorvastatin; Translations: [ATORVASTATIN] Drug Allergy 04-06-20 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; convulsions (1 source) Unspecified convulsions; Translations: [Unspecified convulsions] Onset: 08-09-2024 Episodic Essential hypertension (3 sources) Essential (primary) hypertension; Translations: [ESSENTIAL PRIMARY HYPERTENSION] Onset: 01-12-2023 Chronic Other aftercare (1 source) shelter (current) use of systemic steroids; Translations: [CUSTODIAL USE OF SYSTEMIC STEROIDS] Onset: 01-12-2023 Episodic Other aftercare (1 source) 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; Translations: [OTH CUSTODIAL CURRENT [...] 08-09-20 ABSOLUTE BASOPHIL 0.0 X10E9/L Normal 0.0-0.2 [facility] Comment on above: Performed By: #### 1 9123-9, 32175-1, CMP, 61131-6, 81250-4, CBCA, 5643-2, PINR #### [facility] ([id number]) [address] [place] [address] 32085 ABSOLUTE NEUTROPHIL 3.9 X10E9/L Normal 1.5-6.6 [facility] Comment on above: Performed By: #### 1 9123-9, 37370-6, CMP, 18487-6, 68856-0, CBCA, 5643-2, PINR #### [facility] ([id number]) [address] [place] [address] 21343 Basophils/100 WBC (Bld) 0.3 % Normal [facility] Comment on above: Performed By: #### 1 9123-9, 96945-6, CMP, 01122-5, 59233-8, CBCA, 5643-2, PINR #### [facility] ([id number]) [address] [place] [address] 17918 Eosinophils (Bld) [#/Vol] 0.1 10*3/uL Normal 0.0-0.4 [facility] Comment on above: Performed By: #### 1 9123-9, 40314-0, CMP, 21242-9, 44065-9, CBCA, 5643-2, PINR #### [facility] ([id number]) [address] [place] [address] 65334 Eosinophils/100 WBC (Bld) 1.4 % Normal [facility] Comment on above: Performed By: #### 1 23-9, 71710-0, CMP, 10426-3, 69510-1, CBCA, 5643-2, PINR #### [facility] ([id number]) [address] [place] [address] 49731 Erythrocyte distribution width (RBC) [Ratio] 13.0 % Normal 11.5-15.0 [facility] Comment on above: Performed By: #### 1 9123-9, 34716-6, CMP, 46708-8, 49447-6, CBCA, 5643-2, PINR #### [facility] ([id number]) [address] [place] [address] 98850 Hematocrit (Bld) [Volume fraction] 35.7 % Low 39-49 [facility] Comment on above: Performed By: #### 1 9123-9, 98524-5, CMP, 49717-5, 40829-3, CBCA, 5643-2, PINR #### [facility] ([id number]) [address] [place] [address] 24943 Hemoglobin (Bld) [Mass/Vol] 12.3 g/dL Low 13.0-17.0 [facility] Comment on above: Performed By: #### 1 9123-9, 33120-6, CMP, 44882-3, 76594-2, CBCA, 5643-2, PINR #### [facility] ([id number]) [address] [place] [address] 79137 Lymphocytes (Bld) [#/Vol] 1.1 10*3/uL Normal 1.0-3.5 [facility] Comment on above: Performed By: #### 1 9123-9, 34207-5, CMP, 84880-5, 82909-5, CBCA, 5643-2, PINR #### [facility] ([id number]) [address] [place] [address] 72543 Lymphocytes/100 WBC (Bld) 21.0 % Normal [facility] Comment on above: Performed By: #### 1 9123-9, 49969-6, CMP, 30340-3, 94170-2, CBCA, 5643-2, PINR #### [facility] ([id number]) [address] [place] [address] [place] [address] MCH (RBC) [Entitic mass] 33.2 pg Normal 27-34 [facility] Comment on above: Performed By: #### 1 9123-9, 63189-5, CMP, 48029-1, 24386-2, CBCA, 5643-2, PINR #### [facility] ([id number]) [address] [place] [address] 00914 MCHC (RBC) [Mass/Vol] 34.3 g/dL Normal 32-36 [facility] Comment on above: Performed By: #### 1 9123-9, 44793-2, CMP, 10927-1, 94025-8, CBCA, 5643-2, PINR #### [facility] ([id number]) [address] [place] [address] 43679 MCV (RBC) [Entitic vol] 97 fL Normal 80-100 [facility] Comment on above: Performed By: #### 1 9123-9, 27707-9, CMP, 57302-5, 46518-8, CBCA, 5643-2, PINR #### [facility] ([id number]) [address] [place] [address] 32063 Monocytes (Bld) [#/Vol] 0.2 10*3/uL Normal 0-0.9 [facility] Comment on above: Performed By: #### 1 9123-9, 42987-3, CMP, 31394-0, 74177-3, CBCA, 5643-2, PINR #### [facility] ([id number]) [address] [place] [address] 48185 Monocytes/100 WBC (Bld) 4.5 % Normal [facility] Comment on above: Performed By: #### 1 9123-9, 87757-3, CMP, 67503-0, 54747-2, CBCA, 5643-2, PINR #### [facility] ([id number]) [address] [place] [address] 06516 Neutrophils/100 WBC (Bld) 72.8 % Normal [facility] Comment on above: Performed By: #### 1 9123-9, 30345-0, CMP, 73802-0, 10043-5, CBCA, 5643-2, PINR #### [facility] ([id number]) [address] [place] [address] 71071 Platelet mean volume (Bld) [Entitic vol] 7.7 fL Normal 7-12 [facility] Comment on above: Performed By: #### 1 9123-9, 74802-5, CMP, 92429-7, 70136-3, CBCA, 5643-2, PINR #### [facility] ([id number]) [address] [place] [address] 53075 Platelets (Bld) [#/Vol] 208 10*3/uL Normal 150-450 [facility] Comment on above: Performed By: #### 1 9123-9, 76451-4, CMP, 56661-0, 70914-8, CBCA, 5643-2, PINR #### [facility] ([id number]) [address] [place] [address] 28116 RBC COUNT 3.69 X10E12/L Low 4.10-5.70 [facility] Comment on above: Performed By: #### 1 9123-9, 40199-0, CMP, 63600-6, 12865-3, CBCA, 5643-2, PINR #### [facility] ([id number]) [address] [place] [address] 64691 WBC (Bld) [#/Vol] 5.4 10*3/uL Normal 4.0-11.0 [facility] Comment on above: Performed By: #### 1 9123-9, 39554-3, CMP, 95690-0, 41957-6, CBCA, 5643-2, PINR #### [facility] ([id number]) [address] [place] [address] 78981 COMPREHENSIVE METABOLIC PANE [facility] 08-09-2024 Albumin [Mass/Vol] 3.5 g/dL Normal 3.2-5.3 [facility] Comment on above: Performed By: #### 1 9123-9, 36728-8, CMP, 78019-0, 38321-3, CBCA, 5643-2, PINR #### [facility] ([id number]) [address] [place] [address] 33672 ALP [Catalytic activity/Vol] 56 U/L Normal 39-130 [facility] Comment on above: Performed By: #### 1 9123-9, 65381-6, CMP, 04970-8, 23649-9, CBCA, 5643-2, PINR #### [facility] ([id number]) [address] [place] [address] 17073 ALT [Catalytic activity/Vol] 25 U/L Normal 0-40 [facility] Comment on above: Performed By: #### 1 9123-9, 69370-4, CMP, 34301-1, 46326-9, CBCA, 5643-2, PINR #### [facility] ([id number]) [address] [place] [address] 84474 Anion gap [Moles/Vol] 7 mmol/L Normal 5-15 [facility] Comment on above: Performed By: #### 1 9123-9, 10783-4, CMP, 88835-5, 10784-9, CBCA, 5643-2, PINR #### [facility] ([id number]) [address] [place] [address] 53777 AST [Catalytic activity/Vol] 19 U/L Normal 0-41 [facility] Comment on above: Performed By: #### 1 9123-9, 00437-2, CMP, 54571-7, 50144-2, CBCA, 5643-2, PINR #### [facility] ([id number]) [address] [place] [address] 89740 Bilirubin [Mass/Vol] 0.4 mg/dL Normal 0.3-1.2 [facility] Comment on above: Performed By: #### 1 9123-9, 41476-5, CMP, 83785-4, 57440-6, CBCA, 5643-2, PINR #### [facility] ([id number]) [address] [place] [address] 66310 Calcium [Mass/Vol] 8.8 mg/dL Normal 8.5-10.5 [facility] Comment on above: Performed By: #### 1 9123-9, 04401-5, CMP, 63194-6, 65256-9, CBCA, 5643-2, PINR #### [facility] ([id number]) [address] [place] [address] 45069 Chloride [Moles/Vol] 108 mmol/L Normal 98-109 [facility] Comment on above: Performed By: #### 1 9123-9, 62877-9, CMP, 88303-6, 52028-2, CBCA, 5643-2, PINR #### [facility] ([id number]) [address] [place] [address] 43326 CO2 [Moles/Vol] 23 mmol/L Normal 22-32 [facility] Comment on above: Performed By: #### 1 9123-9, 57521-5, CMP, 28996-0, 86771-8, CBCA, 5643-2, PINR #### [facility] ([id number]) [address] [place] [address] 32190 Creatinine [Mass/Vol] 1.37 mg/dL High 0.70-1.20 [facility] Comment on above: Result Comment: METH OD TRACEABLE TO IDMS STANDARD Performed By: #### 1 9123-9, 27509-6, CMP, 40522-7, 35919-3, CBCA, 5643-2, PINR #### [facility] ([id number]) [address] [place] [address] 66146 GFR/1.73 sq M.predicted among non-blacks MDRD (S/P/Bld) [Vol rate/Area] 54 mL/min/{1.73_m2} Low >59 [facility] Comment on above: Result Comment: Reported eGFR is based on the CKD-EPI 1 equation that does not use a race coefficient. Performed By: #### 1 9123-9, 20115-8, CMP, 17219-1, 38149-5, CBCA, 5643-2, PINR #### [facility] ([id number]) [address] [place] [address] 60425 Glucose [Mass/Vol] 155 mg/dL High 65-99 [facility] Comment on above: Performed By: #### 1 9123-9, 81661-1, CMP, 21810-8, 60633-9, CBCA, 5643-2, PINR #### [facility] ([id number]) [address] [place] [address] 93994 Potassium [Moles/Vol] 4.3 mmol/L Normal 3.5-5.0 [facility] Comment on above: Performed By: #### 1 9123-9, 41575-4, CMP, 42960-3, 28767-4, CBCA, 5643-2, PINR #### [facility] ([id number]) [address] [place] [address] 27923 Protein [Mass/Vol] 6.0 g/dL Normal 6.0-8.0 [facility] Comment on above: Performed By: #### 1 9123-9, 01192-1, CMP, 26717-0, 43925-5, CBCA, 5643-2, PINR #### [facility] ([id number]) [address] [place] [address] 74962 Sodium [Moles/Vol] 138 mmol/L Normal 134-146 [facility] Comment on above: Performed By: #### 1 9123-9, 23983-9, CMP, 89073-9, 79254-9, CBCA, 5643-2, PINR #### [facility] ([id number]) [address] [place] [address] 13414 Urea nitrogen [Mass/Vol] 25 mg/dL Normal 5-27 [facility] Comment on above: Performed By: #### 1 9123-9, 31862-5, CMP, 25684-0, 92309-8, CBCA, 5643-2, PINR #### [facility] ([id number]) [address] [place] [address] BRAIN WO CONTon CT BRAIN WO [...] Moran MD on 08/09/2024 12:54 PM Normal [facility] DRUG SCREEN, URINEon 024 AMPHETAMINE/METHAMP Negative Normal NEG [facility] Comment on above: Result Comment: AMPH /METH screening cut off = 1000 ng/mL Performed By: #### 1 9123-9, 79240-5, CMP, 93902-5, 34421-4, CBCA, 5643-2, PINR #### [facility] ([id number]) [address] [place] [address] 04761 BARBITURATES Negative Normal NEG [facility] Comment on above: Result Comment: Maria Eugenia iturates screening cut off value = 200 ng/mL Performed By: #### 1 9123-9, 19617-7, CMP, 17093-9, 38551-8, CBCA, 5643-2, PINR #### [facility] ([id number]) [address] [place] [address] 06938 BENZODIAZEPINES Negative Normal NEG [facility] Comment on above: Result Comment: Paulie odiazepines screening cut off value = 200 ng/mL Performed By: #### 1 9123-9, 02542-5, CMP, 41019-0, 64011-3, CBCA, 5643-2, PINR #### [facility] ([id number]) [address] [place] [address] 54881 CANNABINOIDS Negative Normal NEG [facility] Comment on above: Result Comment: Nora abinoids/THC screening cut off value = 50 ng/mL Performed By: #### 1 9123-9, 58847-6, CMP, 97135-1, 66218-6, CBCA, 5643-2, PINR #### [facility] ([id number]) [address] [place] [address] 44268 COCAINE METABOLITE Negative Normal NEG [facility] Comment on above: Result Comment: Coca ine screening cut off value = 300 ng/mL Performed By: #### 1 9123-9, 02321-3, [facility], 82872-0, 48109-4, CBCA, 5643-2, PINR #### [facility] ([id number]) [address] [place] [address] 30329 ECSTASY Negative Normal NEG [facility] Comment on above: Result Comment: Ecst asy screening cut off value = 500 ng/mL This report is intended for use in clinical monitoring or management of patients. Performed By: #### 1 9123-9, 95533-9, [facility], 42827-0, 71392-1, CBCA, 5643-2, PINR #### [facility] ([id number]) [address] [place] [address] 55387 METHADONE Negative Normal NEG [facility] Comment on above: Result Comment: Meth adone screening cut off value = 300 ng/mL. Performed By: #### 1 9123-9, 06552-4, CMP, 45980-1, 53437-2, CBCA, 5643-2, PINR #### [facility] ([id number]) [address] [place] [address] 70963 OPIATES Negative Normal NEG [facility] Comment on above: Result Comment: Opia brennen screening cut off value = 300 ng/mL NOTE: This test is used for the detection of codeine, hydrocodone (>1000 ng/mL), morphine and hydromorphone (>900 ng/mL) in urine. Performed By: #### 1 9123-9, 57029-5, CMP, 28974-5, 64881-5, CBCA, 5643-2, PINR #### [facility] ([id number]) [address] [place] [address] 18786 OXYCODONE Negative Normal NEG [facility] Comment on above: Result Comment: Oxyc odone screening cut off value = 300 ng/mL NOTE: This test is used for the detection of oxycodone and oxymorphone in urine. Performed By: #### 1 9123-9, 54009-8, [facility], 99363-3, 54462-6, CBCA, 5643-2, PINR #### [facility] ([id number]) [address] [place] [address] 11016 PHENCYCLIDINE Negative Normal NEG [facility] Comment on above: Result Comment: Phen cyclidine screening cut off value = 25 ng/mL Performed By: #### 1 9123-9, 96299-4, [facility], 32595-3, 31495-4, CBCA, 5643-2, PINR #### [facility] ([id number]) [address] [place] [address] 78615 ETHANOLon 08-09-2024 Ethanol [Mass/Vol] mg/dL Normal 0.00-0.08 [facility] Comment on above: Result Comment: This report is intended for use in clinical monitoring or management of patients. Performed By: #### 1 9123-9, 61949-0, CMP, 62165-8, 65471-5, CBCA, 5643-2, PINR #### [facility] ([id number]) [address] [place] [address] [place] [address] Fibrin D-dimer DDU (PPP) [Ma ss/Vol]on 08-09-2024 D DIMER 167 ng/mL DDU Normal <255 [facility] Comment on above: Result Comment: Results <255 ng/mL DDU: The presence of a VTE can safely be excluded with a negative D-Dimer result and Wells score. A negative result doesn't exclude the possibility of DIC. The test be repeated along with other diagnostic tests if the patient's symptoms persist or worsen. [email or web address] Performed By: #### 1 9123-9, 23516-8, CMP, 69198-4, 26353-2, CBCA, 5643-2, PINR #### [facility] ([id number]) [address] [place] [address] 51086 MAGNESIUMon 08-09-2024 Magnesium [Mass/Vol] 1.4 mg/dL Low 1.8-2.6 [facility] Comment on above: Performed By: #### 1 9123-9, 28543-5, [facility], 60288-2, 65983-4, CBCA, 5643-2, PINR #### [facility] ([id number]) [address] [place] [address] 07950 PROTIME AND INRon 08-09-2024 INR Coag (PPP) [Relative time] 1.2 {INR} High 0.8-1.1 [facility] Comment on above: Performed By: #### 1 9123-9, 03569-8, CMP, 85424-7, 30765-9, CBCA, 5643-2, PINR #### [facility] ([id number]) [address] [place] [address] 80306 PT Coag (PPP) [Time] 14.3 s High 9.8-13.2 [facility] Comment on above: Result Comment: NEW REFERENCE RANGE Performed By: #### 1 9123-9, 74832-3, CMP, 46658-3, 36946-6, CBCA, 5643-2, PINR #### [facility] ([id number]) [address] [place] [address] 31056 Troponin I.cardiac High sens itivity method [Mass/Vol]on 08-09-2024 1 HOUR TROP I, HIGH SENSITIVITY 10 ng/L Normal <21 [facility] Comment on above: Performed By: #### 1 9123-9, 51483-0, CMP, 33322-9, 89092-8, CBCA, 5643-2, PINR #### [facility] ([id number]) [address] [place] [address] 60080 TROPONIN I, HIGH SENSITIVITY 8 ng/L Normal <21 [facility] Comment on above: Performed By: #### 1 9123-9, 92364-7, CMP, 11833-9, 67549-4, CBCA, 5643-2, PINR #### [facility] ([id number]) [address] [place] [address] 77741 URINALYSISon 08-09-2024 Bilirubin Ql (U) Negative Normal NEG [facility] Comment on above: Performed By: #### 1 9123-9, 87176-4, CMP, 53097-1, 13328-0, CBCA, 5643-2, PINR #### [facility] ([id number]) [address] [place] [address] 06638 BLOOD/HGB Negative Normal NEG [facility] Comment on above: Performed By: #### 1 9123-9, 90780-5, CMP, 15759-4, 63044-6, CBCA, 5643-2, PINR #### [facility] ([id number]) [address] [place] [address] 85626 Color (U) YELLOW Normal YELLOW [facility] Comment on above: Performed By: #### 1 9123-9, 00173-0, CMP, 88519-1, 95397-9, CBCA, 5643-2, PINR #### [facility] ([id number]) [address] [place] [address] 24538 Glucose Ql (U) Negative Normal NEG [facility] Comment on above: Performed By: #### 1 9123-9, 93892-5, CMP, 23156-5, 02458-7, CBCA, 5643-2, PINR #### [facility] ([id number]) [address] [place] [address] 42642 Ketones Ql (U) Negative Normal NEG [facility] Comment on above: Performed By: #### 1 9123-9, 98340-9, CMP, 83374-9, 05703-0, CBCA, 5643-2, PINR #### [facility] ([id number]) [address] [place] [address] [place] [address] Leukocyte esterase Test strip Ql (U) Negative Normal NEG [facility] Comment on above: Performed By: #### 1 9123-9, 40035-8, CMP, 65475-4, 07830-4, CBCA, 5643-2, PINR #### [facility] ([id number]) [address] [place] [address] 86588 Nitrite Ql (U) Negative Normal NEG [facility] Comment on above: Performed By: #### 1 9123-9, 13816-4, CMP, 27501-7, 47575-1, CBCA, 5643-2, PINR #### [facility] ([id number]) [address] [place] [address] 24824 pH (U) 6.0 [pH] Normal 5.0-8.5 [facility] Comment on above: Performed By: #### 1 9123-9, 53572-6, CMP, 20779-6, 08812-5, CBCA, 5643-2, PINR #### [facility] ([id number]) [address] [place] [address] 82496 Protein Ql (U) Negative Normal NEG [facility] Comment on above: Performed By: #### 1 9123-9, 60742-6, CMP, 94608-8, 92506-3, CBCA, 5643-2, PINR #### [facility] ([id number]) [address] [place] [address] 34663 Specific gravity (U) [Rel density] 1.025 Normal 1.003-1.03 5 [facility] Comment on above: Performed By: #### 1 9123-9, 52780-6, CMP, 00364-4, 90765-7, CBCA, 5643-2, PINR #### [facility] ([id number]) [address] [place] [address] TURBIDITY CLEAR Normal CLEAR [facility] Comment on above: Performed By: #### 1 9123-9, 46184-8, CMP, 80113-0, 86215-7, CBCA, 5643-2, PINR #### [facility] ([id number]) [address] [place] [address] Urobilinogen Qn (U) 0.2 {Temo'U}/dL Normal <1.1 [facility] Comment on above: Performed By: #### 1 9123-9, 21480-2, CMP, 15309-4, 31885-3, CBCA, 5643-2, PINR #### [facility] ([id number]) [address] [place] [address] URN MACROSCOPIC NURon 2023 BILIRUBIN [place] Negative Normal NEG [facility] Comment on above: Performed By: #### N UM #### [facility] ([id number]) [address] [place] [address] [place] [address] BLOOD/HGB FR[place]LIN Negative Normal NEG [facility] Comment on above: Performed By: #### N UM #### [facility] ([id number]) [address] [place] [address], [place] [address] GLUCOSE [place] Negative Normal NEG [facility] Comment on above: Performed By: #### N UM #### [facility] ([id number]) [address] [place] [address], [place] [address] KETONES FRANKLIN Negative Normal NEG [facility] Comment on above: Performed By: #### N UM #### [facility] ([id number]) [address] [place] [address] [place] [address] LEUKOCYTE ESTERASE [place] Negative Normal NEG [facility] Comment on above: Performed By: #### N UM #### [facility] ([id number]) [address] [place] [address], [place] [address] NITRITE [place] Negative Normal NEG [facility] Comment on above: Performed By: #### N UM #### [facility] ([id number]) [address] [place] [address], [place] [address] PH FR[place]LIN 5.5 Normal 5.0-8.5 [facility] Comment on above: Performed By: #### N UM #### [facility] ([id number]) [address] [place] [address] [place] [address] PROTEIN [place] Negative Normal NEG [facility] Comment on above: Performed By: #### N UM #### [facility] ([id number]) [address] [place] [address], [place] [address] SPECIFIC GRAVITY FRANKLIN 1.020 Normal 1.003-1 .03 5 [facility] Comment on above: Performed By: #### N UM #### [facility] ([id number]) [address] [place] [address] UROBILINOGEN FRANKLIN 0.2 eu/dL Normal <1.1 [facility] Comment on above: Performed By: #### N UM #### [facility] ([id number]) [address] [place] [address] aPTT Coag (PPP) [Time]on aPTT Coag (Bld) [Time] 33 s Normal 26-37 [facility] Comment on above: Result Comment: NEW REFERENCE RANGE Performed By: #### 1 9123-9, 60393-0, CMP, 52947-3, 29012-9, CBCA, 5643-2, PINR #### [facility] ([id number]) [address] [place] [address] 36on 04-18-2024 36 From: Jessica muñoz MD Sent: 04/18/2024 12:32 PM EDT To: Yuridia Nuñez MA Subject: RE: Scan Please inform him that blood testing for clotting disorder is negative. He should follow up with Dr Godwin for cancer screening. Pt has been notified [facility] Office Visiton 04-06-2024 Follow-up visit [id number] Jeb Riddle 1950 M Date Provider Department Center 04/06/[address] [facility] Family History Problem Relation Age of Onset Diabetes Mother Coronary artery disease Mother Heart attack Father Diabetes Father Coronary artery disease Father Family Status - Relation Status Age at Mother Father Level of Service:62371 SD OFFICE/OUTPATIENT ESTABLISHED MOD MDM 30 MIN [facility] 3602-17-2024 36 Patient called back and said he is taking meds as prescribed at last visit with Dr. Forrester. I made him apt with Dr. Forrester end of Mar since he is not here in Apr. [facility] 36on 02-15-2024 36 Regarding echo from 02/02/2024: MD Yuridia Herman MA Has he been taking meds as I recommended at last visit? 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 He should come for a visit in 3 months. LM w/ sister Mary to return my call. Normal [facility] Activated partial thrombopla stin time (aPTT) in platelet poor plasma by coagulation aOrdered By: Naima Byod on 01-09-2024 aPTT Coag (PPP) [Time] 29.1 s 25.1-36.5 [facility] Comment on above: A hematocrit value g reater than 55% may lead to inaccurate results in coagulation testing. Patients having hematocrit values >55% require a special collection tube for coagulation studies. Please contact the laboratory at [phone] for redraw instructions. B-Type Natriuretic Peptideon 01-09-2024 Natriuretic peptide B (Bld) [Mass/Vol] 172.0 pg/mL High 5-100 [facility] Comment on above: Result Comment: PERF ORMED BY: [facility] [address] [place] [id number] PATHOLOGIST BALING PRESS OPERATOR RADHA BARRON M.D. Performed By: #### B SPECIALIST MANAGERS, HS TROP, BMP, CK, DIFF CBC ####[address] Basic Metabolic Panelon 12-14 Anion gap [Moles/Vol] Not performed Normal 6.0-15.0 [facility] Comment on above: Performed By: #### B SPECIALIST MANAGERS, HS TROP, BMP, CK, DIFF CBC ####[place] [id number] [facility] Calcium [Mass/Vol] 8.7 mg/dL Normal 8.6-10.3 [facility] Comment on above: Performed By: #### B SPECIALIST MANAGERS, HS TROP, BMP, CK, DIFF CBC ####[address] Chloride [Moles/Vol] 109 mmol/L High 98-107 [facility] Comment on above: Performed By: #### B SPECIALIST MANAGERS, HS TROP, BMP, CK, DIFF CBC ####[place] [id number] [place] CO2 [Moles/Vol] 22.4 mmol/L Normal 21.0-31.0 [facility] Comment on above: Performed By: #### B SPECIALIST MANAGERS, HS TROP, BMP, CK, DIFF CBC ####[address] Creatinine [Mass/Vol] 1.16 mg/dL Normal 0.70-1.30 [facility] Comment on above: Performed By: #### B SPECIALIST MANAGERS, HS TROP, BMP, CK, DIFF CBC ####[address] Creatinine Clr Calc Pharmacy 64.96 Normal [facility] Comment on above: Result Comment: PERF ORMED BY: [facility] [address] [place] [address] PATHOLOGIST BALING PRESS OPERATOR RADHA BARRON M.D. Performed By: #### B SPECIALIST MANAGERS, HS TROP, BMP, CK, DIFF CBC ####[address] GFR/1.73 sq M.predicted MDRD (S/P/Bld) [Vol rate/Area] mL/min/{1.73_m2} Normal [facility] Comment on above: Performed By: #### B SPECIALIST MANAGERS, HS TROP, BMP, CK, DIFF CBC ####[address] Glucose [Mass/Vol] 95 mg/dL Normal 70-100 [facility] Comment on above: Result Comment: [place] Glucose Reference Range is dependent on time and content of last meal. Glucose of more than 200 mg/dL in a nonstressed, ambulatory subject supports the diagnosis of Diabetes Mellitus. ADA recommended reference range Performed By: #### B SPECIALIST MANAGERS, HS TROP, BMP, CK, DIFF CBC ####[address] Potassium Normal 3.5-5.1 [facility] Comment on above: Result Comment: Spec imen hemolyzed, redraw requested Performed By: #### B SPECIALIST MANAGERS, HS TROP, BMP, CK, DIFF CBC ####[facility] [id number] Sodium [Moles/Vol] 142 mmol/L Normal 136-145 [facility] Comment on above: Performed By: #### B SPECIALIST MANAGERS, HS TROP, BMP, CK, DIFF CBC ####[facility] [id number] Urea nitrogen [Mass/Vol] 20 mg/dL Normal 7-25 [facility] Comment on above: Performed By: #### B SPECIALIST MANAGERS, HS TROP, BMP, CK, DIFF CBC ####[facility] [id number] Basophils Auto (Bld) [#/Vol] Ordered By: Naima Bullimore on 01-09-2024 Basophils (Bld) [#/Vol] N/A [facility] Basophils/100 WBC Auto (Bld) Ordered By: Naima Bullimore on 01-09-2024 Basophils/100 WBC (Bld) N/A [facility] Basophils/100 WBC Manual cnt (Bld)Ordered By: Naima Godwinimore on 01-09-2024 Basophils/100 WBC (Bld) 0 % 0-[address] [facility] [address] angio chest PE protocolon 01-09-2024 CT angio chest PE protocol [facility] [place] [address] CT Scan Report Signed Patient: Jeb Riddle MR#: [id number] : 1950 Acct:[id number] Age/Sex: 73 / M ADM Date: 01/09/24 Loc: ER Room: Type: [facility] ER Attending Dr: Copies to: SABA Blankenship [...] Jeb Collins M.D.01/09/2024 6:17 PM Dictation Location: [place] [address] Transcribed By: [facility] 01/09/241816 Dictated By: Jeb Collins II, MD 01/09/241810 Signed By: 01/09/241816 Normal [facility] Calcium [Mass/volume] in Ser um or PlasmaOrdered By: Naima Boyd on 01-09-2024 Calcium [Mass/Vol] 8.7 mg/dL 8.6-10.3 [facility] Carbon dioxide, total [Moles /volume] in Serum or PlasmaOrdered By: Naima Body on 01-09-2024 CO2 [Moles/Vol] 22.4 mmol/L 21.0-31.0 [facility] Chloride [Moles/volume] in S pooja or PlasmaOrdered By: Naima Boyd on 01-09-2024 Chloride [Moles/Vol] 109 mmol/L 98-107 [facility] Coagulation Profileon 2023 aPTT Coag (Bld) [Time] 29.1 s Normal 25.1-36.5 [facility] Comment on above: Order Comment: REDRA W Result Comment: A he matocrit value greater than 55% may lead to inaccurate results in coagulation testing. Patients having hematocrit values >55% require a special collection tube for coagulation studies. Please contact the laboratory at [phone] for redraw instructions. Performed By: #### P P, DDIMER ####[place] [id number] [place] [address] [facility] INR Coag (PPP) [Relative time] 1.0 {INR} Normal [facility] Comment on above: Order [...] 4.5 Performed By: #### P P, DDIMER ####[place] [id number] [place] [id number] [facility] PT Coag (PPP) [Time] 11.9 s Normal 9.0-12.9 [facility] Comment on above: Order Comment: REDRA W Result Comment: A he matocrit value greater than 55% may lead to inaccurate results in coagulation testing. Patients having hematocrit values >55% require a special collection tube for coagulation studies. Please contact the laboratory at [phone] for redraw instructions. Performed By: #### P P, DDIMER ####[address] [address] [facility] Creatine Kinaseon 01-09-2024 CK [Catalytic activity/Vol] 81 U/L Normal 30-223 [facility] Comment on above: Performed By: #### B SPECIALIST MANAGERS, HS TROP, BMP, CK, DIFF CBC ####[place] [id number] [place] [id number] [facility] Creatine kinase [Enzymatic a ctivity/volume] in Serum or PlasmaOrdered By: Naima Boyd on 01-09-2024 CK [Catalytic activity/Vol] 81 U/L 30-223 [facility] Creatinine [Mass/volume] in Serum or PlasmaOrdered By: Naima Boyd on 01-09-2024 Creatinine [Mass/Vol] 1.16 mg/dL 0.70-1.30 [facility] D-Dimer High Sensitivityon 0 01-09-2024 D-Dimer High Sensitivity 1905 ng/mL High 0-243 [facility] Comment on above: Order [...] coagulation studies. Please contact the laboratory at [phone] for redraw instructions. PERFORMED BY: [facility] [address] [place] [address] PATHOLOGIST BALING PRESS OPERATOR RADHA BARRON M.D. Performed By: #### P P, DDIMER ####[place] [id number] [place] [id number] [facility] Diff and CBCon 01-09-2024 Basophils/100 WBC (Bld) 0 % Normal 0-2 [facility] Comment on above: Performed By: #### B SPECIALIST MANAGERS, HS TROP, BMP, CK, DIFF CBC ####[place] [id number] [facility] Eosinophils/100 WBC (Bld) 4 % High 1-3 [facility] Comment on above: Performed By: #### B SPECIALIST MANAGERS, HS TROP, BMP, CK, DIFF CBC ####[address] Erythrocyte distribution width (RBC) [Ratio] 14.9 % High 12.0-14.8 [facility] Comment on above: Performed By: #### B SPECIALIST MANAGERS, HS TROP, BMP, CK, DIFF CBC ####[address] Hematocrit (Bld) [Volume fraction] 41.9 % Normal 38.8-50.0 [facility] Comment on above: Performed By: #### B SPECIALIST MANAGERS, HS TROP, BMP, CK, DIFF CBC ####[address] Hemoglobin (Bld) [Mass/Vol] 14.1 g/dL Normal 13.0-17.0 [facility] Comment on above: Performed By: #### B SPECIALIST MANAGERS, HS TROP, BMP, CK, DIFF CBC ####[address] Lymphocytes/100 WBC (Bld) 27 % Normal 18-42 [facility] Comment on above: Performed By: #### B SPECIALIST MANAGERS, HS TROP, BMP, CK, DIFF CBC ####[address] MCH (RBC) [Entitic mass] 32.0 pg Normal 27.5-35.2 [facility] Comment on above: Performed By: #### B SPECIALIST MANAGERS, HS TROP, BMP, CK, DIFF CBC ####[address] MCV (RBC) [Entitic vol] 95.1 fL Normal 83.5-101 [facility] Comment on above: Performed By: #### B SPECIALIST MANAGERS, HS TROP, BMP, CK, DIFF CBC ####[address] Mean Corpuscular HGB Conc 33.6 g/dL Normal 32.5-35.6 [facility] Comment on above: Performed By: #### B SPECIALIST MANAGERS, HS TROP, BMP, CK, DIFF CBC ####[address] Monocytes/100 WBC (Bld) 25.58 % High 0.00-20.00 [facility] Comment on above: Result Comment: For adults in ED, MDW > 20.0 may be associated with a higher risk of sepsis during the first 12 hrs of hospital admission Performed By: #### B SPECIALIST MANAGERS, HS TROP, BMP, CK, DIFF CBC ####[address] Monocytes/100 WBC (Bld) 7 % Normal 2-11 [facility] Comment on above: Performed By: #### B SPECIALIST MANAGERS, HS TROP, BMP, CK, DIFF CBC ####[address] Nucleated Red Blood Cell 0 /100{WBC} Normal 0-0 [facility] Comment on above: Performed By: #### B SPECIALIST MANAGERS, HS TROP, BMP, CK, DIFF CBC ####[address] Platelet Estimate Normal Normal Normal [facility] Comment on above: Performed By: #### B SPECIALIST MANAGERS, HS TROP, BMP, CK, DIFF CBC ####[address] Platelet mean volume (Bld) [Entitic vol] 8.6 fL Normal 6.6-10.1 [facility] Comment on above: Performed By: #### B SPECIALIST MANAGERS, HS TROP, BMP, CK, DIFF CBC ####[address] Platelet Morphology Normal Normal Normal [facility] Comment on above: Performed By: #### B SPECIALIST MANAGERS, HS TROP, BMP, CK, DIFF CBC ####[address] Platelets (Bld) [#/Vol] 240 10*3/uL Normal 150-450 [facility] Comment on above: Performed By: #### B SPECIALIST MANAGERS, HS TROP, BMP, CK, DIFF CBC ####[address] Plt Comment SEE COMMENT BELOW Normal [facility] Comment on above: Result Comment: NO C LOTS, NO CLUMPS, SHORT DRAW LFM PERFORMED BY: [facility] [address] [place] [address] PATHOLOGIST BALING PRESS OPERATOR RADHA BARRON M.D. Performed By: #### B SPECIALIST MANAGERS, HS TROP, BMP, CK, DIFF CBC ####[address] RBC (Bld) [#/Vol] 4.41 10*6/uL Normal 3.90-5.60 [facility] Comment on above: Performed By: #### B SPECIALIST MANAGERS, HS TROP, BMP, CK, DIFF CBC ####[address] RBC morphology finding Nom (Bld) Normal Normal Normal [facility] Comment on above: Performed By: #### B SPECIALIST MANAGERS, HS TROP, BMP, CK, DIFF CBC ####[address] Segmented neutrophils/100 WBC (Bld) 62 % Normal 50-70 [facility] Comment on above: Performed By: #### B SPECIALIST MANAGERS, HS TROP, BMP, CK, DIFF CBC ####[address] WBC (Bld) [#/Vol] 7.6 10*3/uL Normal 4.1-10.5 [facility] Comment on above: Performed By: #### B SPECIALIST MANAGERS, HS TROP, BMP, CK, DIFF CBC ####[address] WBC (Bld) [#/Vol] 8.4 10*3/uL Normal 4.1-10.5 [facility] Comment on above: Performed By: #### B SPECIALIST MANAGERS, HS TROP, BMP, CK, DIFF CBC ####[address] ECG 12 lead ECGon 01-09-2024 ECG 12 lead ECG [facility] [place] [address] Electrocardiograph Report Signed Patient: Jeb Riddle MR#: [id number] : 1950 Acct:[id number] Age/Sex: 73 / M ADM Date: 01/09/24 Loc: ER Room: Type: [facility] ER Attending Dr: Ordering Provider: SABA Blankenship [...] By Adam Patterson DO 1828 Normal [facility] Eosinophils Auto (Bld) [#/Vo l]Ordered By: Naima Boyd on 01-09-2024 Eosinophils (Bld) [#/Vol] N/A [facility] Eosinophils/100 WBC Auto (Bl d)Ordered By: Naima Boyd on 01-09-2024 Eosinophils/100 WBC (Bld) N/A [facility] Eosinophils/100 WBC Manual c nt (Bld)Ordered By: Naima Boyd on 01-09-2024 Eosinophils/100 WBC (Bld) 4 % 1-3 [facility] Erythrocyte distribution wid th Auto (RBC) [Ratio]Ordered By: Naima Boyd on 01-09-2024 Erythrocyte distribution width (RBC) [Ratio] 14.9 % 12.0-14.8 [facility] Fibrin D-dimer [Presence] in Platelet poor plasma by Latex agglutinationOrdered By: Naima Boyd on 01-09-2024 Fibrin D-dimer LA Ql (PPP) 1905 ng/mL 0-243 [facility] Comment on above: The reference range for [...] coagulation studies. Please contact the laboratory at [phone] for redraw instructions. Glucose [Mass/volume] in Ser um or PlasmaOrdered By: Naima Boyd on 01-09-2024 Glucose [Mass/Vol] 95 mg/dL 70-100 [facility] Comment on above: ADA recommended refe rence rangeRandom Glucose Reference Range is dependent on time and content of last meal. Glucose of more than 200 mg/dL in a nonstressed, ambulatory subject supports the diagnosis of Diabetes Mellitus. Hematocrit Auto (Bld) [Volum e fraction]Ordered By: Naima Boyd on 01-09-2024 Hematocrit (Bld) [Volume fraction] 41.9 % 38.8-50.0 [facility] Hemoglobin [Mass/volume] in BloodOrdered By: Naima Boyd on 01-09-2024 Hemoglobin (Bld) [Mass/Vol] 14.1 g/dL 13.0-17.0 [facility] INR in Platelet poor plasma by Coagulation assayOrdered By: Naima Boyd on 01-09-2024 INR Coag (PPP) [Relative time] 1.0 {INR} [facility] Comment on above: INR Therapeutic Rang e [...] RBC Auto (Bld) [#/Vol] 7.6 10*3/uL 4.1-10.5 [facility] Lymphocytes Auto (Bld) [#/Vo l]Ordered By: Naima Bullimore on 01-09-2024 Lymphocytes (Bld) [#/Vol] N/A [facility] Lymphocytes/100 WBC Auto (Bl d)Ordered By: Naima Godwinimore on 01-09-2024 Lymphocytes/100 WBC (Bld) N/A [facility] Lymphocytes/100 WBC Manual c nt (Bld)Ordered By: Naima Godwinimore on 01-09-2024 Lymphocytes/100 WBC (Bld) 27 % 18-42 [facility] MCH Auto (RBC) [Entitic mass ]Ordered By: Naima Godwinimore on 01-09-2024 MCH (RBC) [Entitic mass] 32.0 pg 27.5-35.2 [facility] MCHC Auto (RBC) [Mass/Vol]Or dered By: Naima Godwinimore on 01-09-2024 MCHC (RBC) [Mass/Vol] 33.6 g/dL 32.5-35.6 [facility] MCV Auto (RBC) [Entitic vol] Ordered By: Naima Boyd on 01-09-2024 MCV (RBC) [Entitic vol] 95.1 fL 83.5-101 [facility] Monocyte distribution width [Entitic volume] in Blood by AutomatedOrdered By: Naima Boyd on 01-09-2024 Monocyte distribution width Auto (Bld) [Entitic vol] 25.58 % 0.00-20.00 [facility] Comment on above: For adults in ED, MD W > 20.0 may be associated with a higher risk of sepsis during the first 12 hrs of hospital admission Monocytes Auto (Bld) [#/Vol] Ordered By: Naima Rutherfordore on 01-09-2024 Monocytes (Bld) [#/Vol] N/A [facility] Monocytes/100 WBC Auto (Bld) Ordered By: Naima Bullimore on 01-09-2024 Monocytes/100 WBC (Bld) N/A [facility] Monocytes/100 WBC Manual cnt (Bld)Ordered By: Naima Bullimore on 01-09-2024 Monocytes/100 WBC (Bld) 7 % 2-11 [facility] Natriuretic peptide B [Mass/ Vol]Ordered By: Naima Bullimore on 01-09-2024 Natriuretic peptide B (Bld) [Mass/Vol] 172.0 pg/mL 5-100 [facility] Neutrophils Auto (Bld) [#/Vo l]Ordered By: Naima Bullimore on 01-09-2024 Neutrophils (Bld) [#/Vol] N/A [facility] Neutrophils/100 WBC Auto (Bl d)Ordered By: Naima Bullimore on 01-09-2024 Neutrophils/100 WBC (Bld) N/A [facility] No Panel InformationOrdered By: Naimadevora Godwinimore on 01-09-2024 Estimated GFR (CKD-EPI) > 60.0 mL/Min [facility] Creatinine Clearance (Chem 64.96 [facility] Platelet Comment See comment below [facility] Comment on above: NO CLOTS, NO CLUMPS, SHORT DRAW LFM Nucleated RBC/100 WBC Manual cnt (Bld) [Ratio]Ordered By: Naima Bullimore on 01-09-2024 Nucleated RBC/100 WBC (Bld) [Ratio] 0 /100{WBC} 0-0 [facility] Nucleated erythrocytes [Pres ence] in Blood by Automated countOrdered By: Naimadevora Godwinimore on 01-09-2024 Nucleated RBC Auto Ql (Bld) N/A [facility] Platelet adequacy [Presence] in Blood by Light microscopyOrdered By: Naimadevora Godwinimore on 01-09-2024 Platelets LM Ql (Bld) Normal Normal Fir [facility] Platelet mean volume Auto (B ld) [Entitic vol]Ordered By: Naima Bullimore on 01-09-2024 Platelet mean volume (Bld) [Entitic vol] 8.6 fL 6.6-10.1 [facility] Platelet morphology finding [Identifier] in BloodOrdered By: Naima Boyd on 01-09-2024 Platelet morphology finding Nom (Bld) Normal Normal [facility] Platelets Auto (Bld) [#/Vol] Ordered By: Naima Bullimore on 01-09-2024 Platelets (Bld) [#/Vol] 240 10*3/uL 150-450 [facility] Potassium [Moles/volume] in Serum or PlasmaOrdered By: Naima Bullimore on 01-09-2024 Potassium [Moles/Vol] 3.9 mmol/L 3.5-5.1 [facility] Prothrombin time (PT)Ordered By: Naima Boyd on 01-09-2024 PT Coag (PPP) [Time] 11.9 s 9.0-12.9 [facility] Comment on above: A hematocrit value g reater than 55% may lead to inaccurate results in coagulation testing. Patients having hematocrit values >55% require a special collection tube for coagulation studies. Please contact the laboratory at [phone] for redraw instructions. RBC Auto (Bld) [#/Vol]Ordere d By: Naima Rutherfordore on 01-09-2024 RBC (Bld) [#/Vol] 4.41 10*6/uL 3.90-5.60 [facility] RBC morphologyOrdered By: Sabine Boyd on 01-09-2024 RBC morphology finding Nom (Bld) Normal Normal [facility] Redraw Potassiumon Potassium [Moles/Vol] 3.9 mmol/L Normal 3.5-5.1 [facility] Comment on above: Result Comment: PERF ORMED BY: [facility] [address] [place] [address] PATHOLOGIST BALING PRESS OPERATOR RADHA BARRON M.D. Performed By: #### R TONY Marcano ####[facility] [address] [place] [address] [facility] Segmented neutrophils/100 WB C Manual cnt (Bld)Ordered By: Naima Boyd on 01-09-2024 Segmented neutrophils/100 WBC (Bld) 62 % 50-70 [facility] Serum or plasma anion gap de terminationOrdered By: Naima Boyd on 01-09-2024 Anion gap [Moles/Vol] TNP Fir [facility] Comment on above: Test not performed Sodium [Moles/volume] in Ser um or PlasmaOrdered By: Naima Boyd on 01-09-2024 Sodium [Moles/Vol] 142 mmol/L 136-145 [facility] Troponin I High Sensitivityo n 01-09-2024 Troponin I High Sensitivity 13.1 pg/mL Normal 0.0-20.0 [facility] Comment on above: Result Comment: PERF ORMED BY: [place] [address] PATHOLOGIST BALING PRESS OPERATOR RADHA BARRON M.D. Performed By: #### H S TROP #### [facility] [address] [place] [address] Troponin I High Sensitivity 12.5 pg/mL Normal 0.0-20.0 [facility] Comment on above: Result Comment: PERF ORMED BY: [facility] [address] [place] [address] PATHOLOGIST BALING PRESS OPERATOR RADHA BARRON M.D. Performed By: #### B SPECIALIST MANAGERS, HS TROP, BMP, CK, DIFF CBC ####[facility] Nos[address] Troponin I.cardiac [Mass/vol ume] in Serum or Plasma by Detection limit <= 0.01 ng/Ordered By: Naima Boyd on 01-09-2024 Troponin I.cardiac DL <= 0.01 ng/mL [Mass/Vol] 13.1 pg/mL 0.0-20.0 [facility] Urea nitrogen [Mass/volume] in Serum or PlasmaOrdered By: Naima Boyd on 01-09-2024 Urea nitrogen [Mass/Vol] 20 mg/dL 7- [facility] WBC Auto (Bld) [#/Vol]Ordere d By: Naima Boyd on 01-09-2024 WBC (Bld) [#/Vol] 8.4 10*3/uL 4.1-10.5 [facility] XR chest 2V*on 01-09-2024 XR chest 2V* [facility] Main [address] [address] XRay Report Signed Patient: Jeb Riddle MR#: [id number] : 1950 Acct:[id number] Age/Sex: 73 / M ADM Date: 01/09/24 Loc: ER Room: Type: [facility] ER Attending Dr: Copies to: SABA Blankenship [...] Jeb Collins M.D.01/09/2024 4:11 PM Dictation Location: [place] [address] Transcribed By: [facility] 01/09/24 1611 Dictated By: Jeb Collins II, MD 01/09/24 1610 Signed By: 01/09/24 1611 Normal [facility] ECG 12 lead ECGon 12-18-2023 ECG 12 lead ECG [facility] Main [address] [address] Electrocardiograph Report Signed Patient: Jeb Riddle MR#: [id number] : 1950 Acct:[id number] Age/Sex: 73 / M ADM Date: 12/18/23 Loc: ER Room: Type: [facility] ER Attending Dr: Ordering Provider: Marie [...] was found Confirmed by RAMIRO CORTEZ DO ([id number]) on 12/18/2023 4:44:01 PM Referred By: Electronically Signed By:RAMIRO CORTEZ DO Transcribed By: MUS Signed By Ramiro Cortez DO 12/17 1644 Normal [facility] Office Visiton 12-09-2023 Follow-up visit [id number] Jeb Riddle 1950 M Date Provider Department Center 12/09/2023 JESSICA JAMISON Family History Problem Relation Age of Onset Diabetes Mother Coronary artery disease Mother Heart attack Father Diabetes Father Coronary artery disease Father Family Status - Relation Status Age at Mother Father Level of Service:63007 SD OFFICE/OUTPATIENT ESTABLISHED MOD MDM 30 MIN Reason for Visit and Comments: Follow-up [911583] - [address] [facility] Office Visiton 06-07-2023 Follow-up visit [id number] Jeb Riddle 1950 M Date Provider Department Center 06/07/2023 SHIV SAAVEDRA Family History Problem Relation Age of Onset Diabetes Mother Coronary artery disease Mother Heart attack Father Diabetes Father Coronary artery disease Father Family Status - Relation Status Age at Mother Father Level of Service:30654 SD OFFICE/OUTPATIENT NEW HIGH MDM 60-[address] [facility] Office Visiton 05-27-2023 Follow-up visit [id number] Jeb Riddle 1950 M Date Provider Department Center 05/27/2023 JESSICA JAMISON Family History Problem Relation Age of Onset Diabetes Mother Coronary artery disease Mother Heart attack Father Diabetes Father Coronary artery disease Father Family Status - Relation Status Age at Mother Father Level of Service:97242 SD OFFICE/OUTPATIENT ESTABLISHED MOD MDM 30-39 MIN Reason for Visit and Comments: Follow-up [203015] Coronary Artery Disease [187] Normal [facility] Activated partial thrombopla stin time (aPTT) in platelet poor plasma by coagulation aOrdered By: Ramiro Cortez on 03-03-2023 aPTT Coag (PPP) [Time] 29.7 s 25.1-36.5 [facility] B-Type Natriuretic Peptideon 03-03-2023 Natriuretic peptide B (Bld) [Mass/Vol] 52.0 pg/mL Normal 5-100 [facility] Comment on above: Result Comment: PERF ORMED BY: [facility] [address] [facility] [place] [id number] PATHOLOGIST BALING PRESS OPERATOR RADHA BARRON M.D. Performed By: #### C BC, CK, PT, PTT, BMP, HS TROP, BNP ####[address] Basic Metabolic Panelon 02-13 Anion gap [Moles/Vol] 10.6 mmol/L Normal 6.0-15.0 [facility] Comment on above: Performed By: #### C BC, CK, PT, PTT, BMP, HS TROP, BNP ####[address] Calcium [Mass/Vol] 8.6 mg/dL Normal 8.6-10.3 [facility] Comment on above: Performed By: #### C BC, CK, PT, PTT, BMP, HS TROP, BNP ####[place] [id number] [facility] Chloride [Moles/Vol] 108 mmol/L High 98-107 [facility] Comment on above: Performed By: #### C BC, CK, PT, PTT, BMP, HS TROP, BNP ####[place] [id number] [facility] CO2 [Moles/Vol] 24.6 mmol/L Normal 21.0-31.0 [facility] Comment on above: Performed By: #### C BC, CK, PT, PTT, BMP, HS TROP, BNP ####[place] [id number] [facility] Creatinine [Mass/Vol] 1.19 mg/dL Normal 0.70-1.30 [facility] Comment on above: Performed By: #### C BC, CK, PT, PTT, BMP, HS TROP, BNP ####[address] Creatinine Clr Calc Pharmacy 55.29 Normal [facility] Comment on above: Result Comment: PERF ORMED BY: [facility] [address] [place] [address] PATHOLOGIST BALING PRESS OPERATOR RADHA BARRON M.D. Performed By: #### C BC, CK, PT, PTT, BMP, HS TROP, BNP ####[address] GFR/1.73 sq M.predicted MDRD (S/P/Bld) [Vol rate/Area] mL/min/{1.73_m2} Normal [facility] Comment on above: Performed By: #### C BC, CK, PT, PTT, BMP, HS TROP, BNP ####[address] Glucose [Mass/Vol] 93 mg/dL Normal 70-100 [facility] Comment on above: Result Comment: [facility] Glucose Reference Range is dependent on time and content of last meal. Glucose of more than 200 mg/dL in a nonstressed, ambulatory subject supports the diagnosis of Diabetes Mellitus. ADA recommended reference range Performed By: #### C BC, CK, PT, PTT, BMP, HS TROP, BNP ####[address] Potassium [Moles/Vol] 4.2 mmol/L Normal 3.5-5.1 [facility] Comment on above: Performed By: #### C BC, CK, PT, PTT, BMP, HS TROP, BNP ####[address] Sodium [Moles/Vol] 139 mmol/L Normal 136-145 [facility] Comment on above: Performed By: #### C BC, CK, PT, PTT, BMP, HS TROP, BNP ####[address] Urea nitrogen [Mass/Vol] 17 mg/dL Normal 7-25 [facility] Comment on above: Performed By: #### C BC, CK, PT, PTT, BMP, HS TROP, BNP ####[facility] Basophils Auto (Bld) [#/Vol] Ordered By: Ramiro Cortez on 03-03-2023 Basophils (Bld) [#/Vol] 0.0 10*3/uL 0.0-0.2 [facility] Basophils/100 WBC Auto (Bld) Ordered By: Ramiro Cortez on 03-03-2023 Basophils/100 WBC (Bld) 0.4 % . [facility] Calcium [Mass/volume] in Ser um or PlasmaOrdered By: Ramiro Cortez on 03-03-2023 Calcium [Mass/Vol] 8.6 mg/dL 8.6-10.3 [facility] Carbon dioxide, total [Moles /volume] in Serum or PlasmaOrdered By: Ramiro Cortez on 03-03-2023 CO2 [Moles/Vol] 24.6 mmol/L 21.0-31.0 [facility] Chloride [Moles/volume] in S pooja or PlasmaOrdered By: Ramiro Cortez on 03-03-2023 Chloride [Moles/Vol] 108 mmol/L 98-107 [facility] Complete Blood Count Auto Di ffon 03-03-2023 Basophils (Bld) [#/Vol] 0.0 10*3/uL Normal 0.0-0.2 [facility] Comment on above: Result Comment: PERF ORMED BY: [facility] [address] [place] [address] PATHOLOGIST BALING PRESS OPERATOR RADHA BARRON M.D. Performed By: #### C BC, CK, PT, PTT, BMP, HS TROP, BNP #### [facility] [address] Basophils/100 WBC (Bld) 0.4 % Normal . [facility] Comment on above: Performed By: #### C BC, CK, PT, PTT, BMP, HS TROP, BNP #### [address] Eosinophils (Bld) [#/Vol] 0.2 10*3/uL Normal 0.0-0.45 [facility] Comment on above: Performed By: #### C BC, CK, PT, PTT, BMP, HS TROP, BNP #### [address] Eosinophils/100 WBC (Bld) 2.4 % Normal . [facility] Comment on above: Performed By: #### C BC, CK, PT, PTT, BMP, HS TROP, BNP #### [address] Erythrocyte distribution width (RBC) [Ratio] 13.0 % Normal 12.0-14.8 [facility] Comment on above: Performed By: #### C BC, CK, PT, PTT, BMP, HS TROP, BNP #### [address] Hematocrit (Bld) [Volume fraction] 38.3 % Low 38.8-50.0 [facility] Comment on above: Performed By: #### C BC, CK, PT, PTT, BMP, HS TROP, BNP #### [address] Hemoglobin (Bld) [Mass/Vol] 12.9 g/dL Low 13.0-17.0 [facility] Comment on above: Performed By: #### C BC, CK, PT, PTT, BMP, HS TROP, BNP #### [address] Lymphocytes (Bld) [#/Vol] 2.6 10*3/uL Normal 1.00-4.8 [facility] Comment on above: Performed By: #### C BC, CK, PT, PTT, BMP, HS TROP, BNP #### [address] Lymphocytes/100 WBC (Bld) 28.3 % Normal . [facility] Comment on above: Performed By: #### C BC, CK, PT, PTT, BMP, HS TROP, BNP #### [address] MCH (RBC) [Entitic mass] 30.8 pg Normal 27.5-35.2 [facility] Comment on above: Performed By: #### C BC, CK, PT, PTT, BMP, HS TROP, BNP #### [address] MCV (RBC) [Entitic vol] 91.9 fL Normal 83.5-101 [facility] Comment on above: Performed By: #### C BC, CK, PT, PTT, BMP, HS TROP, BNP #### [address] Mean Corpuscular HGB Conc 33.6 g/dL Normal 32.5-35.6 [facility] Comment on above: Performed By: #### C BC, CK, PT, PTT, BMP, HS TROP, BNP #### [address] Monocytes (Bld) [#/Vol] 0.6 10*3/uL Normal 0.0-0.8 [facility] Comment on above: Performed By: #### C BC, CK, PT, PTT, BMP, HS TROP, BNP #### [address] Monocytes/100 WBC (Bld) 24.67 % High 0.00-20.00 [facility] Comment on above: Result Comment: For adults in ED, MDW > 20.0 may be associated with a higher risk of sepsis during the first 12 hrs of hospital admission Performed By: #### C BC, CK, PT, PTT, BMP, HS TROP, BNP #### [address] Monocytes/100 WBC (Bld) 6.5 % Normal . [facility] Comment on above: Performed By: #### C BC, CK, PT, PTT, BMP, HS TROP, BNP #### [address] Neutrophils (Bld) [#/Vol] 5.7 10*3/uL Normal 1.8-7.7 [facility] Comment on above: Performed By: #### C BC, CK, PT, PTT, BMP, HS TROP, BNP #### [address] Neutrophils/100 WBC (Bld) 62.4 % Normal . [facility] Comment on above: Performed By: #### C BC, CK, PT, PTT, BMP, HS TROP, BNP #### [address] NRBC% 0.1 /100{WBC} Normal 0-0.5 [facility] Comment on above: Performed By: #### C BC, CK, PT, PTT, BMP, HS TROP, BNP #### [address] Platelet mean volume (Bld) [Entitic vol] 8.2 fL Normal 6.6-10.1 [facility] Comment on above: Performed By: #### C BC, CK, PT, PTT, BMP, HS TROP, BNP #### [address] Platelets (Bld) [#/Vol] 234 10*3/uL Normal 150-450 [facility] Comment on above: Performed By: #### C BC, CK, PT, PTT, BMP, HS TROP, BNP #### [address] RBC (Bld) [#/Vol] 4.17 10*6/uL Normal 3.90-5.60 [facility] Comment on above: Performed By: #### C BC, CK, PT, PTT, BMP, HS TROP, BNP #### [address] WBC (Bld) [#/Vol] 9.2 10*3/uL Normal 4.1-10.5 [facility] Comment on above: Performed By: #### C BC, CK, PT, PTT, BMP, HS TROP, BNP #### [address] [place] [address] [facility] Creatine Kinaseon 03-03-2023 CK [Catalytic activity/Vol] 125 U/L Normal [facility] Comment on above: Performed By: #### C BC, CK, PT, PTT, BMP, HS TROP, BNP ####[facility] [id number] [place] [id number] [facility] Creatine kinase [Enzymatic a ctivity/volume] in Serum or PlasmaOrdered By: Ramiro Cortez on 03-03-2023 CK [Catalytic activity/Vol] 125 U/L [facility] Creatinine [Mass/volume] in Serum or PlasmaOrdered By: Ramiro Cortez on 03-03-2023 Creatinine [Mass/Vol] 1.19 mg/dL 0.70-1.30 [facility] ECG 12 lead ECGon 03-03-2023 ECG 12 lead ECG [facility] Main [place] [address] [place] [address] Electrocardiograph Report Signed Patient: Jeb Riddle MR#: [id number] : 1950 Acct:[id number] Age/Sex: 72 / M ADM Date: 03/03/23 Loc: ER Room: Type: [facility] ER Attending Dr: Ordering Provider: Ramiro [...] ECGs available Confirmed by RAMIRO CORTEZ DO ([id number]) on 03/03/2023 8:14:27 PM Referred By: Electronically Signed By:RAMIRO CORTEZ DO Transcribed By: MUS Signed By Ramiro Cortez DO 03/03 Normal [facility] Eosinophils Auto (Bld) [#/Vo l]Ordered By: Ramiro Cortez on 03-03-2023 Eosinophils (Bld) [#/Vol] 0.2 10*3/uL 0.0-0.45 [facility] Eosinophils/100 WBC Auto (Bl d)Ordered By: Ramiro Cortez on 03-03-2023 Eosinophils/100 WBC (Bld) 2.4 % . [facility] Erythrocyte distribution wid th Auto (RBC) [Ratio]Ordered By: Ramiro Cortez on 03-03-2023 Erythrocyte distribution width (RBC) [Ratio] 13.0 % 12.0-14.8 [facility] Glucose [Mass/volume] in Ser um or PlasmaOrdered By: Ramiro Cortez on 03-03-2023 Glucose [Mass/Vol] 93 mg/dL 70-100 [facility] Comment on above: ADA recommended refe rence rangeRandom Glucose Reference Range is dependent on time and content of last meal. Glucose of more than 200 mg/dL in a nonstressed, ambulatory subject supports the diagnosis of Diabetes Mellitus. Hematocrit Auto (Bld) [Volum e fraction]Ordered By: Ramiro Cortez on 03-03-2023 Hematocrit (Bld) [Volume fraction] 38.3 % 38.8-50.0 [facility] Hemoglobin [Mass/volume] in BloodOrdered By: Ramiro Cortez on 03-03-2023 Hemoglobin (Bld) [Mass/Vol] 12.9 g/dL 13.0-17.0 [facility] Laboratory - CoagulationOrde red By: Ramiro Cortez on 03-03-2023 PT Coag (PPP) [Time] 12.3 s 9.0-12.9 [facility] Leukocytes [#/volume] correc ava for nucleated erythrocytes in Blood by Automated counOrdered By: Ramiro Cortez on 03-03-2023 WBC corrected for nucl RBC Auto (Bld) [#/Vol] 9.2 10*3/uL 4.1-10.5 [facility] Lymphocytes Auto (Bld) [#/Vo l]Ordered By: Ramiro Cortez on 03-03-2023 Lymphocytes (Bld) [#/Vol] 2.6 10*3/uL 1.00-4.8 [facility] Lymphocytes/100 WBC Auto (Bl d)Ordered By: Ramiro Cortez on 03-03-2023 Lymphocytes/100 WBC (Bld) 28.3 % . [facility] MCH Auto (RBC) [Entitic mass ]Ordered By: Ramiro Cortez on 03-03-2023 MCH (RBC) [Entitic mass] 30.8 pg 27.5-35.2 [facility] MCHC Auto (RBC) [Mass/Vol]Or dered By: Ramiro Cortez on 03-03-2023 MCHC (RBC) [Mass/Vol] 33.6 g/dL 32.5-35.6 [facility] MCV Auto (RBC) [Entitic vol] Ordered By: Ramiro Cortez on 03-03-2023 MCV (RBC) [Entitic vol] 91.9 fL 83.5-101 [facility] Monocyte distribution width [Entitic volume] in Blood by AutomatedOrdered By: Ramiro Cortez on 03-03-2023 Monocyte distribution width Auto (Bld) [Entitic vol] 24.67 % 0.00-20.00 [facility] Comment on above: For adults in ED, MD W > 20.0 may be associated with a higher risk of sepsis during the first 12 hrs of hospital admission Monocytes Auto (Bld) [#/Vol] Ordered By: Ramiro Cortez on 03-03-2023 Monocytes (Bld) [#/Vol] 0.6 10*3/uL 0.0-0.8 [facility] Monocytes/100 WBC Auto (Bld) Ordered By: Ramiro Cortez on 03-03-2023 Monocytes/100 WBC (Bld) 6.5 % . [facility] Natriuretic peptide B [Mass/ Vol]Ordered By: Ramiro Cortez on 03-03-2023 Natriuretic peptide B (Bld) [Mass/Vol] 52.0 pg/mL 5-100 [facility] Neutrophils Auto (Bld) [#/Vo l]Ordered By: Ramiro Cortez on 03-03-2023 Neutrophils (Bld) [#/Vol] 5.7 10*3/uL 1.8-7.7 [facility] Neutrophils/100 WBC Auto (Bl d)Ordered By: Ramiro Cortez on 03-03-2023 Neutrophils/100 WBC (Bld) 62.4 % . [facility] No Panel InformationOrdered By: Ramiro Cortez on 03-03-2023 Estimated GFR (CKD-EPI) > 60.0 mL/Min [facility] Creatinine Clearance (Chem 55.29 [facility] Nucleated erythrocytes [Pres ence] in Blood by Automated countOrdered By: Ramiro Cortez on 03-03-2023 Nucleated RBC Auto Ql (Bld) 0.1 /100{WBC} 0-0.5 [facility] Partial Thromboplastin Timeo n 03-03-2023 aPTT Coag (Bld) [Time] 29.7 s Normal 25.1-36.5 [facility] Comment on above: Result Comment: PERF ORMED BY: [facility] [address] [place] [address] PATHOLOGIST BALING PRESS OPERATOR RADHA BARRON M.D. Performed By: #### C BC, CK, PT, PTT, BMP, HS TROP, BNP #### [facility] [address] Platelet mean volume Auto (B ld) [Entitic vol]Ordered By: Ramiro Cortez on 03-03-2023 Platelet mean volume (Bld) [Entitic vol] 8.2 fL 6.6-10.1 [facility] Platelet poor plasma interna tional normalized ratio (INR) by coagulation assay (relatOrdered By: Ramiro Cortez on 03-03-2023 INR Coag (PPP) [Relative time] 1.1 {INR} [facility] Comment on above: INR Therapeutic Rang e [...] 03-03-2023 Platelets (Bld) [#/Vol] 234 10*3/uL 150-450 [facility] Potassium [Moles/volume] in Serum or PlasmaOrdered By: Ramiro Cortez on 03-03-2023 Potassium [Moles/Vol] 4.2 mmol/L 3.5-5.1 [facility] Prothrombin Time INRon 03-03 INR Coag (PPP) [Relative time] 1.1 {INR} Normal [facility] Comment on above: Result [...] BNP #### [facility] [address] PT Coag (PPP) [Time] 12.3 s Normal 9.0-12.9 [facility] Comment on above: Performed By: #### C BC, CK, PT, PTT, BMP, HS TROP, BNP #### [facility] [address] RBC Auto (Bld) [#/Vol]Ordere d By: Ramiro Cortez on 03-03-2023 RBC (Bld) [#/Vol] 4.17 10*6/uL 3.90-5.60 [facility] Serum or plasma anion gap de terminationOrdered By: Ramiro Cortez on 03-03-2023 Anion gap [Moles/Vol] 10.6 mmol/L 6.0-15.0 [facility] Sodium [Moles/volume] in Ser um or PlasmaOrdered By: Ramiro Cortez on 03-03-2023 Sodium [Moles/Vol] 139 mmol/L 136-145 [facility] Troponin I High Sensitivityo n 03-03-2023 Troponin I High Sensitivity 7.6 pg/mL Normal 0.0-20.0 [facility] Comment on above: Result Comment: PERF ORMED BY: [place] [address] PATHOLOGIST BALING PRESS OPERATOR RADHA BARRON M.D. Performed By: #### C BC, CK, PT, PTT, BMP, HS TROP, BNP ####[facility] [place] [id number] [facility] Troponin I.cardiac [Mass/vol ume] in Serum or Plasma by Detection limit <= 0.01 ng/Ordered By: Ramiro Cortez on 03-03-2023 Troponin I.cardiac DL <= 0.01 ng/mL [Mass/Vol] 7.6 pg/mL 0.0-20.0 [facility] Urea nitrogen [Mass/volume] in Serum or PlasmaOrdered By: Ramiro Cortez on 03-03-2023 Urea nitrogen [Mass/Vol] 17 mg/dL 03-08 [facility] WBC Auto (Bld) [#/Vol]Ordere d By: Ramiro Cortez on 03-03-2023 WBC (Bld) [#/Vol] 9.2 10*3/uL 4.1-10.5 [facility] XR chest 2V*on 03-03-2023 XR chest 2V* [facility] Main [place] [address] [place] [address] XRay Report Signed Patient: Jeb Riddle MR#: [id number] : 1950 Acct:[id number] Age/Sex: 72 / M ADM Date: 03/03/23 Loc: ER Room: Type: [facility] ER Attending Dr: Copies to: Ramiro Cortez [...] Ivonne Zavala M.D.03/03/2023 12:46 PM Dictation Location: [place] [address] Transcribed By: KAROLINA 03/03/23 1246 Dictated By: Ivonne Zavala MD 03/03/23 1245 Signed By: 03/03/23 1246 Normal [facility] CBC AUTO DIFFon 01-11-2023 BASO # 0.0 103/ul Normal 0.0-0.1 [facility] Comment on above: Performed By: #### C BC #### [facility] [address] [address] [address] Andrea Garcia Basophils/100 WBC (Bld) 0.0 % Critically low 0.2-2.0 [facility] Comment on above: Performed By: #### C BC #### [facility] [address] [place] [address] [address] Andrea Garcia EO # 0.0 103/ul Normal 0.0-0.7 [facility] Comment on above: Performed By: #### C BC #### [facility] [address] [place] [address] Dr. Andrea Garcia Eosinophils/100 WBC (Bld) 0.0 % Critically low 0.9-7.0 [facility] Comment on above: Performed By: #### C BC #### [facility] [address] [place] [address] Dr. Andrea Garcia Erythrocyte distribution width (RBC) [Ratio] 12.8 % Normal 11.0-15.0 [facility] Comment on above: Performed By: #### C BC #### [facility] [address] [place] [address] Dr. Andrea Garcia Hematocrit (Bld) [Volume fraction] 36.2 % Critically low 42.0-54.0 [facility] Comment on above: Performed By: #### C BC #### [facility] [address] [place] [address] Dr. Andrea Garcia Hemoglobin (Bld) [Mass/Vol] 12.8 g/dL Critically low 14.0-18.0 [facility] Comment on above: Performed By: #### C BC #### [facility] [address] [place] [address] Dr. Andrea Garcia IG # 0.03 10e3/ul Normal 0.00-0.03 [facility] Comment on above: Performed By: #### C BC #### [facility] [address] [place] [address] Dr. Andrea Garcia IG % 0.4 % Normal 0.0-0.5 [facility] Comment on above: Performed By: #### C BC #### [facility] [address] [place] [address] Dr. Andrea Garcia LYMPH # 1.1 103/ul Critically low 1.2-3.8 [facility] Comment on above: Performed By: #### C BC #### [facility] [address] [place] [address] Dr. Andrea Garcia Lymphocytes/100 WBC (Bld) 15.3 % Critically low 20.5-60.0 [facility] Comment on above: Performed By: #### C BC #### [facility] [address] [place] [address] Dr. Andrea Garcia MANUAL DIFF REQ NO Normal [facility] Comment on above: Performed By: #### C BC #### [facility] [address] [place] [address] Dr. Andrea Garcia MCH (RBC) [Entitic mass] 31.3 pg Normal 25.9-34.0 [facility] Comment on above: Performed By: #### C BC #### [facility] [address] [place] [address] Dr. Andrea Garcia MCHC (RBC) [Mass/Vol] 35.4 g/dL Critically high 29.9-35.2 [facility] Comment on above: Performed By: #### C BC #### [facility] [address] [place] [address] Dr. Andrea Garcia MCV (RBC) [Entitic vol] 88.5 fL Normal 80.0-94.0 [facility] Comment on above: Performed By: #### C BC #### [facility] [address] [place] [address] Dr. Andrea Garcia MONO # 0.1 103/ul Critically low 0.3-0.8 [facility] Comment on above: Performed By: #### C BC #### [facility] [address] [place] [address] Dr. Andrea Garcia Monocytes/100 WBC (Bld) 0.7 % Critically low 1.7-12.0 [facility] Comment on above: Performed By: #### C BC #### [facility] [address] [place] [address] Dr. Andrea Garcia NEUT # 6.0 103/ul Normal 1.4-6.5 [facility] Comment on above: Performed By: #### C BC #### [facility] [address] [place] [address] Dr. Andrea Garcia Neutrophils/100 WBC (Bld) 83.6 % Critically high 43.0-75.0 [facility] Comment on above: Performed By: #### C BC #### [facility] [address] [place] [address] Dr. Andrea Garcia Platelet mean volume (Bld) [Entitic vol] 10.1 fL Normal 9.5-13.5 [facility] Comment on above: Performed By: #### C BC #### [facility] [address] [place] [address] Dr. Andrea Garcia PLT 216 103/ul Normal 150-450 [facility] Comment on above: Performed By: #### C BC #### [facility] [address] [place] [address] Dr. Andrea Garcia RBC 4.09 106/ul Critically low 4.70-6.10 [facility] Comment on above: Performed By: #### C BC #### [facility] [address] [place] [address] Dr. Andrea Garcia WBC 7.2 103/ul Normal 4.0-11.0 [facility] Comment on above: Performed By: #### C BC #### [facility] [address] [place] [address] Dr. Andrea Garcia PROF 14(COMP METB)on 023 Albumin [Mass/Vol] 2.8 g/dL Critically low 3.4-5.0 [facility] Comment on above: Performed By: #### C MP #### [facility] [address] [place] [address] Dr. Andrea Garcia Albumin/Globulin [Mass ratio] 0.8 {ratio} Normal [facility] Comment on above: Performed By: #### C MP #### [facility] [address] [place] [address] Dr. Andrea Garcia ALP [Catalytic activity/Vol] 64 U/L Normal 46-116 [facility] Comment on above: Performed By: #### C MP #### [facility] [address] [place] [address] Dr. Andrea Garcia ALT [Catalytic activity/Vol] 27 U/L Normal 16-63 [facility] Comment on above: Performed By: #### C MP #### [facility] [address] [place] [address] Dr. Andrea Garcia Anion gap [Moles/Vol] 12.9 mmol/L Normal [facility] [facility] Comment on above: Performed By: #### C MP #### [facility] [address] [place] [address] Dr. Andrea Garcia AST [Catalytic activity/Vol] 16 U/L Normal 15-37 [facility] Comment on above: Performed By: #### C MP #### [facility] [address] [place] [address] Dr. Andrea Garcia Bilirubin [Mass/Vol] 0.4 mg/dL Normal 0.2-1.0 [facility] Comment on above: Performed By: #### C MP #### [facility] [address] [place] [address] Dr. Andrea Garcia Calcium [Mass/Vol] 8.2 mg/dL Critically low 8.5-10.1 [facility] Comment on above: Performed By: #### C MP #### [facility] [address] [place] [address] Dr. Andrea Garcia Chloride [Moles/Vol] 107 mmol/L Normal 98-107 [facility] Comment on above: Performed By: #### C MP #### [facility] [address] [place] [address] Dr. Andrea Garcia CO2 [Moles/Vol] 24.2 mmol/L Normal 21.0-32.0 [facility] Comment on above: Performed By: #### C MP #### [facility] [address] [place] [address] Dr. Andrea Garcia Creatinine [Mass/Vol] 1.07 mg/dL Normal 0.70-1.30 [facility] Comment on above: Performed By: #### C MP #### [facility] [address] [address] [address] Andrea Garcia EGFR-AF NAURUAN >60 Normal >=60 [facility] Comment on above: Performed By: #### C MP #### [facility] [address] [place] [address] Dr. Andrea Garcia EGFR-NON AF NAURUAN >60 Normal >=60 [facility] Comment on above: Performed By: #### C MP #### [facility] [address] [place] [address] Dr. Andrea Garcia Globulin (S) [Mass/Vol] 3.5 g/dL Normal [facility] Comment on above: Performed By: #### C MP #### [facility] [address] [place] [address] Dr. Andrea Garcia Glucose [Mass/Vol] 164 mg/dL Critically high 74-106 [facility] Comment on above: Performed By: #### C MP #### [facility] [address] [place] [address] Dr. Andrea Garcia Potassium [Moles/Vol] 4.1 mmol/L Normal 3.5-5.1 [facility] Comment on above: Performed By: #### C MP #### [facility] [address] [place] [address] Dr. Andrea Garcia Protein [Mass/Vol] 6.3 g/dL Critically low 6.4-8.2 [facility] Comment on above: Performed By: #### C MP #### [facility] [address] [place] [address] Dr. Andrea Garcia Sodium [Moles/Vol] 140 mmol/L Normal 136-145 [facility] Comment on above: Performed By: #### C MP #### [facility] [address] [place], [place] [address] Dr. Andrea Garcia Urea nitrogen [Mass/Vol] 16.0 mg/dL Normal 7.0-18.0 [facility] Comment on above: Performed By: #### C MP #### [facility] [address] [address] [address] Andrea Garcia Urea nitrogen/Creatinine [Mass ratio] 15.0 mg/mg Normal [facility] Comment on above: Performed By: #### C MP #### [facility] [address] [address] [address] Andrea Garcia XR KUB 1 VIEWon [...] ROBERT DAVENPORT Date: 2023-01-11 06:56 Normal [facility] AMYLASEon 01-10-2023 Amylase [Catalytic activity/Vol] 56 U/L Normal 25-115 [facility] Comment on above: Performed By: #### C MADM, CMP, DAMIEN, LIPA ####[facility] [address] [place], [place] [address]MpDr. Andrea Garcia CARDIAC JEB 3-6on 3 CK [Catalytic activity/Vol] 92 U/L Normal 39-308 [facility] Comment on above: Performed By: #### C MREP #### [facility] [address] [address] [address] Andrea Garcia CK.MB [Mass/Vol] 1.66 ng/mL Normal <=3.60 [facility] Comment on above: Performed By: #### C MREP #### [facility] [address] [address] [address] Andrea Garcia HSTROP 12.8 pg/mL Normal 4.0-76.1 [facility] Comment on above: Result Comment: CUT- OFF POINTS HAVE BEEN ESTABLISHED BASED ON THE FOURTH UNIVERSAL DEFINITIONS OF MYOCARDIAL INFARCTION. THE UPPER REFERENCE LIMIT (URL) OF TROPONIN, DEFINED THE 99TH PERCENTILE OF cTnI DISTRIBUTION IN A REFERENCE POPULATION, HAS BEEN CONFIRMED THE DECISION THRESHOLD FOR ID DIAGNOSIS. Performed By: #### C MREP #### [facility] [address] [address] [address] Andrea Garcia CK [Catalytic activity/Vol] 72 U/L Normal 39-308 [facility] Comment on above: Performed By: #### C MREP #### [facility] [address] [address] [address] Andrea RUBALCAVA.MB [Mass/Vol] 1.89 ng/mL Normal <=3.60 [facility] Comment on above: Performed By: #### C MREP #### [facility] [address] [address] [address] Andrea Garcia HSTROP 13.5 pg/mL Normal 4.0-76.1 [facility] Comment on above: Result Comment: CUT- OFF POINTS HAVE BEEN ESTABLISHED BASED ON THE FOURTH UNIVERSAL DEFINITIONS OF MYOCARDIAL INFARCTION. THE UPPER REFERENCE LIMIT (URL) OF TROPONIN, DEFINED THE 99TH PERCENTILE OF cTnI DISTRIBUTION IN A REFERENCE POPULATION, HAS BEEN CONFIRMED THE DECISION THRESHOLD FOR ID DIAGNOSIS. Performed By: #### C MREP #### [facility] [address] [address] [address] Andrea Garcia CARDIAC JEB ADMITon 023 CK [Catalytic activity/Vol] 85 U/L Normal 39-308 [facility] Comment on above: Performed By: #### C MADM, CMP, DAMIEN, LIPA ####[facility] [address] [id number]. Andrea Garcia CK.MB [Mass/Vol] 1.80 ng/mL Normal <=3.60 [facility] Comment on above: Performed By: #### C MADM, CMP, DAMIEN, LIPA ####[facility] [address] [id number]. Andrea Garcia HSTROP 15.7 pg/mL Normal 4.0-76.1 [facility] Comment on above: Result Comment: CUT- OFF POINTS HAVE BEEN ESTABLISHED BASED ON THE FOURTH UNIVERSAL DEFINITIONS OF MYOCARDIAL INFARCTION. THE UPPER REFERENCE LIMIT (URL) OF TROPONIN, DEFINED THE 99TH PERCENTILE OF cTnI DISTRIBUTION IN A REFERENCE POPULATION, HAS BEEN CONFIRMED THE DECISION THRESHOLD FOR ID DIAGNOSIS. Performed By: #### C MADM, CMP, DAMIEN, LIPA ####[facility] [address] [address]Dr. Andrea Garcia MIQUEL 61 ng/mL Normal 16-96 [facility] Comment on above: Performed By: #### C MADM, CMP, DAMIEN, LIPA ####[facility] [address] [address]Dr. Andrea Garica CBC AUTO DIFFon 01-10-2023 BASO # 0.0 103/ul Normal 0.0-0.1 [facility] Comment on above: Performed By: #### C BC ####[facility] [address] [place], [place] [address]Dr. Andrea Garcia Basophils/100 WBC (Bld) 0.5 % Normal 0.2-2.0 [facility] Comment on above: Performed By: #### C BC ####[facility] [address] [place], [place] [address]Dr. Andrea Garcia EO # 0.4 103/ul Normal 0.0-0.7 [facility] Comment on above: Performed By: #### C BC ####[facility] [address] [place], [place] [address]Dr. Andrea Garcia Eosinophils/100 WBC (Bld) 5.9 % Normal 0.9-7.0 [facility] Comment on above: Performed By: #### C BC ####[facility] [address] [place], [place] [address]Dr. Andrea Garcia Erythrocyte distribution width (RBC) [Ratio] 13.0 % Normal 11.0-15.0 [facility] Comment on above: Performed By: #### C BC ####[facility] [address] [place], [place] [address]Dr. Andrea Garcia Hematocrit (Bld) [Volume fraction] 40.0 % Critically low 42.0-54.0 [facility] Comment on above: Performed By: #### C BC ####[facility] [address] [address]DrWilder Andrea Garcia Hemoglobin (Bld) [Mass/Vol] 13.4 g/dL Critically low 14.0-18.0 [facility] Comment on above: Performed By: #### C BC ####[facility] [address] [place], [place] [address]DrWilder Kaylendahlia Garcia IG # 0.01 10e3/ul Normal 0.00-0.03 [facility] Comment on above: Performed By: #### C BC ####[facility] [address] [place], [place] [address]DrWilder Kaylendahlia Garcia IG % 0.2 % Normal 0.0-0.5 [facility] Comment on above: Performed By: #### C BC ####[facility] [address] [place], [place] [address]DrWilder Kaylendahlia Garcia LYMPH # 2.2 103/ul Normal 1.2-3.8 [facility] Comment on above: Performed By: #### C BC ####[facility] [address] [place], [place] [address]DrWilder Kaylendahlia Garcia Lymphocytes/100 WBC (Bld) 33.2 % Normal 20.5-60.0 [facility] Comment on above: Performed By: #### C BC ####[facility] [address] [place], [place] [address]DrWilder Kaylendahlia Garcia MANUAL DIFF REQ NO Normal [facility] Comment on above: Performed By: #### C BC ####[facility] [address] [place], [place] [address]DrWilder Kaylendahlia Garcia MCH (RBC) [Entitic mass] 30.5 pg Normal 25.9-34.0 [facility] Comment on above: Performed By: #### C BC ####[facility] [address] [place], [place] [address]DrWilder Kaylendahlia Garcia MCHC (RBC) [Mass/Vol] 33.5 g/dL Normal 29.9-35.2 [facility] Comment on above: Performed By: #### C BC ####[facility] [address] [address]DrWilder Andrea Jose MCV (RBC) [Entitic vol] 90.9 fL Normal 80.0-94.0 [facility] Comment on above: Performed By: #### C BC ####[facility] [address] [place], [place] [address]DrWilder Garcia MONO # 0.4 103/ul Normal 0.3-0.8 [facility] Comment on above: Performed By: #### C BC ####[facility] [address] [place], [place] [address]DrWilder Garcia Monocytes/100 WBC (Bld) 6.0 % Normal 1.7-12.0 [facility] Comment on above: Performed By: #### C BC ####[facility] [address] [place], [place] [address]DrWilder Garcia NEUT # 3.5 103/ul Normal 1.4-6.5 [facility] Comment on above: Performed By: #### C BC ####[facility] [address] [place], [place] [address]DrWilder Garcia Neutrophils/100 WBC (Bld) 54.2 % Normal 43.0-75.0 [facility] Comment on above: Performed By: #### C BC ####[facility] [address] [place], [place] [address]DrWilder Garcia Platelet mean volume (Bld) [Entitic vol] 9.7 fL Normal 9.5-13.5 [facility] Comment on above: Performed By: #### C BC ####[facility] [address] [place], [place] [address]DrWilder Garcia PLT 225 103/ul Normal 150-450 [facility] Comment on above: Performed By: #### C BC ####[facility] [address] [place], [place] [address]DrWilder Garcia RBC 4.40 106/ul Critically low 4.70-6.10 [facility] Comment on above: Performed By: #### C BC ####[facility] [address] [place], [place] [address]ZuWilder Garcia WBC 6.5 103/ul Normal 4.0-11.0 [facility] Comment on above: Performed By: #### C BC ####[facility] [address] [place], [place] [address] ABD/PELV W CONon 01-11-20 [...] ADITYA OATES Date: 2023-01-10 07:41 Normal [facility] CULTURE BLOODon 01-10-2023 Microscopic examination of blood, culture Culture Observations: NO GROWTH AT 36-48 HOURS. FINAL TO FOLLOW. Normal [facility] Comment on above: Performed By: #### B LDCX2 ####[facility] [address] [address]Dr. Andrea Garcia Microscopic examination of blood, culture Culture Observations: NO GROWTH AT 36-48 HOURS. FINAL TO FOLLOW. Normal [facility] Comment on above: Performed By: #### B LDCX1 ####[facility] [address] [address]Dr. Andrea Garcia ER URINE PROFILEon 3 Bilirubin Ql (U) Negative Normal NEGATIVE [facility] Comment on above: Performed By: #### U MICRO, ERUR #### [facility] [address] [address] [address] Andrea Garcia Clarity (U) CLEAR Normal CLEAR [facility] Comment on above: Performed By: #### U MICRO, ERUR #### [facility] [address] [place] [address] Dr. Andrea Garcia Color (U) LT. YELLOW Normal YELLOW [facility] Comment on above: Performed By: #### U MICRO, ERUR #### [facility] [address] [place] [address] Dr. Andrea Garcia ERUAHD A micrscopic examina tion will be performed if indicated. Normal [facility] Comment on above: Performed By: #### U MICRO, ERUR #### [facility] [address] [place] [address] Dr. Andrea Garcia Glucose Ql (U) Negative Normal NEGATIVE [facility] Comment on above: Performed By: #### U MICRO, ERUR #### [facility] [address] [address] [address] Andrea Garcia Hemoglobin Ql (U) TRACE-INTACT Abnormal NEGATIVE [facility] Comment on above: Performed By: #### U MICRO, ERUR #### [facility] [address] [address] [address] Andrea Garcia Ketones Ql (U) Negative Normal NEGATIVE [facility] Comment on above: Performed By: #### U MICRO, ERUR #### [facility] [address] [place] [address] Dr. Andrea Garcia LEUKOCYTES Negative Normal NEGATIVE [facility] Comment on above: Performed By: #### U MICRO, ERUR #### [facility] [address] [place] [address] Dr. Andrea Garcia Nitrite Ql (U) Negative Normal NEGATIVE [facility] Comment on above: Performed By: #### U MICRO, ERUR #### [facility] [address] [place] [address] Dr. Andrea Garcia pH (U) 5.5 [pH] Normal 5-9 [facility] Comment on above: Performed By: #### U MICRO, ERUR #### [facility] [address] [place] [address] Dr. Andrea Garcia SPEC GRAVITY 1.015 Normal 1.005-<=1. 025 [facility] Comment on above: Performed By: #### U MICRO, ERUR #### [facility] [address] [place] [address] Dr. Andrea Garcia UA PROTEIN Negative Normal NEGATIVE/ TRACE [facility] Comment on above: Performed By: #### U MICRO, ERUR #### [facility] [address] [place] [address] Dr. Andrea Garcia UR MICRO IND INDICATED Normal [facility] Comment on above: Performed By: #### U MICRO, ERUR #### [facility] [address] [place] [address] Dr. Andrea Garcia Urobilinogen Qn (U) 0.2 {Temo'U}/dL Normal 0.2 - 1. 0 [facility] Comment on above: Performed By: #### U MICRO, ERUR #### [facility] [address] [place] [address] Dr. Andrea Garcia LACTATE/LACTIC ACIDon 2022 Lactate [Moles/Vol] 0.8 mmol/L Normal 0.4-2.0 [facility] Comment on above: Performed By: #### L ACT #### [facility] [address] [place] [address] Dr. Andrea Garcia Lactate [Moles/Vol] 0.9 mmol/L Normal 0.4-2.0 [facility] Comment on above: Performed By: #### L ACT #### [facility] [address] [address] [address] Andrea Garcia LIPASEon 01-10-2023 Lipase [Catalytic activity/Vol] 71.0 U/L Critically low 73.0-393.0 [facility] Comment on above: Performed By: #### C MADM, CMP, DAMIEN, LIPA ####[facility] [address] [address]DrWilder Garcia PROF 14(COMP METB)on 023 Albumin [Mass/Vol] 3.2 g/dL Critically low 3.4-5.0 [facility] Comment on above: Performed By: #### C MADM, CMP, DAMIEN, LIPA ####[facility] [address] [address]DrWilder Garcia Albumin/Globulin [Mass ratio] 0.9 {ratio} Normal [facility] Comment on above: Performed By: #### C MADM, CMP, DAMIEN, LIPA ####[facility] [address] [address]Dr. Andrea Garcia ALP [Catalytic activity/Vol] 68 U/L Normal 46-116 [facility] Comment on above: Performed By: #### C MADM, CMP, DAMIEN, LIPA ####[facility] [address] [address]Dr. Andrea Garcia ALT [Catalytic activity/Vol] 30 U/L Normal 16-63 [facility] Comment on above: Performed By: #### C MADM, CMP, DAMIEN, LIPA ####[facility] [address] [address]Dr. Andrea Garcia Anion gap [Moles/Vol] 14.2 mmol/L Normal [facility] Comment on above: Performed By: #### C MADM, CMP, DAMIEN, LIPA ####[facility] [address] [address]DrWilder Garcia AST [Catalytic activity/Vol] 18 U/L Normal 15-37 [facility] Comment on above: Performed By: #### C MADM, CMP, DAMIEN, LIPA ####[facility] [address] [address]Dr. Andrea Garcia Bilirubin [Mass/Vol] 0.5 mg/dL Normal 0.2-1.0 [facility] Comment on above: Performed By: #### C MADM, CMP, DAMIEN, LIPA ####[facility] [address] [address]Dr. Andrea Garcia Calcium [Mass/Vol] 8.5 mg/dL Normal 8.5-10.1 [facility] Comment on above: Performed By: #### C MADM, CMP, DAMIEN, LIPA ####[facility] [address] [address]Dr. Andrea Garcia Chloride [Moles/Vol] 108 mmol/L Critically high 98-107 [facility] Comment on above: Performed By: #### C MADM, CMP, DAMIEN, LIPA ####[facility] [address] [place], [place] [address]Dr. Andrea Garcia CO2 [Moles/Vol] 22.1 mmol/L Normal 21.0-32.0 [facility] Comment on above: Performed By: #### C MADM, CMP, DAMIEN, LIPA ####[facility] [address] [address]Dr. Andrea Garcia Creatinine [Mass/Vol] 1.06 mg/dL Normal 0.70-1.30 [facility] Comment on above: Performed By: #### C MADM, CMP, DAMIEN, LIPA ####[facility] [address] [place] [address]Dr. Andrea Garcia EGFR-AF NAURUAN >60 Normal >=60 [facility] Comment on above: Performed By: #### C MADM, CMP, DAMIEN, LIPA ####[facility] [address] [address]Dr. Andrea Garcia EGFR-NON AF NAURUAN >60 Normal >=60 [facility] Comment on above: Performed By: #### C MADM, CMP, DAMIEN, LIPA ####[facility] [address] [place] [address]Dr. Andrea Garcia Globulin (S) [Mass/Vol] 3.5 g/dL Normal [facility] Comment on above: Performed By: #### C MADM, CMP, DAMIEN, LIPA ####[facility] [address] [address]Dr. Andrea Garcia Glucose [Mass/Vol] 110 mg/dL Critically high 74-106 [facility] [place] [facility] Comment on above: Performed By: #### C MADM, CMP, DAMIEN, LIPA ####[facility] [address] [place] [address]Dr. Andrea Garcia Potassium [Moles/Vol] 4.3 mmol/L Normal 3.5-5.1 [facility] Comment on above: Performed By: #### C MADM, CMP, DAMIEN, LIPA ####[facility] [address] [place], [place] [address]Dr. Andrea Garcia Protein [Mass/Vol] 6.7 g/dL Normal 6.4-8.2 [facility] Comment on above: Performed By: #### C MADM, CMP, DAMIEN, LIPA ####[facility] [address] [place], [place] [address]Dr. Andrea Garcia Sodium [Moles/Vol] 140 mmol/L Normal 136-145 [facility] Comment on above: Performed By: #### C MADM, CMP, DAMIEN, LIPA ####[facility] [address] [place] [address]Dr. Andrea Garcia Urea nitrogen [Mass/Vol] 20.0 mg/dL Critically high 7.0-18.0 [facility] Comment on above: Performed By: #### C MADM, CMP, DAMIEN, LIPA ####[facility] [address] [place], [place] [address]Dr. Andrea Garcia Urea nitrogen/Creatinine [Mass ratio] 18.9 mg/mg Normal [facility] Comment on above: Performed By: #### C MADM, CMP, DAMIEN, LIPA ####[facility] [address] [place], [place] [address]Dr. Andrea Garcia URINE MICROSCOPIC ONLYon BACTERIA NONE SEEN Normal NONE SEEN [facility] Comment on above: Performed By: #### U MICRO, ERUR #### [facility] [address] [place] [address] Dr. Andrea Garcia Bacteria identified Cx Nom (U) NOT INDICATED Normal [facility] Comment on above: Performed By: #### U MICRO, ERUR #### [facility] [address] [place] [address] Dr. Andrea Garcia CAST NONE SEEN Normal NONE SEEN [facility] Comment on above: Performed By: #### U MICRO, ERUR #### [facility] [address] [place] [address] Dr. Andrea Garcia Crystals LM Nom (Urine sed) NONE SEEN Normal NONE SEEN [facility] Comment on above: Performed By: #### U MICRO, ERUR #### [facility] [address] [place] [address] Dr. Andrea Garcia Epithelial cells LM Ql (Urine sed) NONE SEEN Normal NONE SEEN /RARE [facility] Comment on above: Performed By: #### U MICRO, ERUR #### [facility] [address] [place] [address] Dr. Andrea Garcia MUCOUS NONE SEEN Normal NONE SEEN [facility] Comment on above: Performed By: #### U MICRO, ERUR #### [facility] [address] [place] [address] Dr. Andrea Garcia RBC 0-2 Normal 0-2 [facility] Comment on above: Performed By: #### U MICRO, ERUR #### [facility] [address] [place] [address] Dr. Andrea Garcia WBC 0-2 Abnormal NONE SEEN [facility] Comment on above: Performed By: #### U MICRO, ERUR #### [facility] [address] [place] [address] Dr. Andrea Garcia XR CHEST 1 Von 01-10-2023 XR CHEST 1 V Exam: Radiographs: X R CHEST 1 V Reason for exam: Nausea/vomiting Comparison: None IMPRESSION: Negative chest. Electronically authenticated by: ADITYA OATES Date: 2023-01-10 07:42 Normal [facility] MRI Soft Tissue Neck w/o + [...] by KENN RAPHAEL on 10/06/2021 1605 [facility] Leader CT Soft Tissue Neck w/ Contr ast*on [...] by Que Greene on 09/29/2021 1013 [facility] Leader Vital Signs Date Time Vital Sign Value Performing Clinician Faci litrubio 01-09-2024 19:01-0400 Diastolic blood pressure 99 mm[Hg] MD Lauren Godwin Work Phone: [facility] 01-09-2024 19:01-0400 Heart rate 84 /min MD Lauren Godwin Work Phone: [facility] 01-09-2024 19:01-0400 Respiratory rate 18 /min MD Lauren Godwin Work Phone: [facility] 01-09-2024 19:01-0400 SaO2% (BldA) [Mass fraction] 97 % MD Lauren Godwin Work Phone: [facility] 01-09-2024 19:01-0400 Systolic blood pressure 190 mm[Hg] MD Lauren Godwin Work Phone: [facility] 01-09-2024 14:29-0400 Body height 187.96 cm MD Lauren Godwin Work Phone: [facility] 01-09-2024 14:29-0400 Body temperature 98.3 [degF] MD Lauren Godwin Work Phone: [facility] 01-09-2024 14:29-0400 Body weight 83 kg MD Lauren Godwin Work Phone: [facility] 12-18-2023 13:10-0400 Heart rate 85 /min MD Lauren Godwin Work Phone: [facility] 12-18-2023 13:09-0400 Body temperature 97.9 [degF] MD Lauren Godwin Work Phone: [facility] 12-18-2023 13:09-0400 Diastolic blood pressure 77 mm[Hg] MD Lauren Godwin Work Phone: [facility] 12-18-2023 13:09-0400 Respiratory rate 18 /min MD Lauren Godwin Work Phone: [facility] 12-18-2023 13:09-0400 SaO2% (BldA) [Mass fraction] 97 % MD Lauren Godwin Work Phone: [facility] 12-18-2023 13:09-0400 Systolic blood pressure 161 mm[Hg] MD Lauren Godwin Work Phone: [facility] 12-18-2023 13:06-0400 Body height 186.69 cm MD Lauren Godwin Work Phone: [facility] 12-18-2023 13:06-0400 Body weight 81 kg MD Lauren Godwin Work Phone: [facility] 03-03-2023 13:30-0400 Diastolic blood pressure 100 mm[Hg] MD Lauren Godwin Work Phone: [facility] 03-03-2023 13:30-0400 Heart rate 59 /min MD Lauren Godwin Work Phone: [facility] 03-03-2023 13:30-0400 Respiratory rate 18 /min MD Lauren Godwin Work Phone: [facility] 03-03-2023 13:30-0400 SaO2% (BldA) [Mass fraction] 99 % MD Lauren Godwin Work Phone: [facility] 03-03-2023 13:30-0400 Systolic blood pressure 160 mm[Hg] MD Lauren Godwin Work Phone: [facility] 03-03-2023 11:36-0400 Body height 175.26 cm MD Lauren Godwin Work Phone: [facility] 03-03-2023 11:36-0400 Body temperature 98 [degF] MD Lauren Godwin Work Phone: [facility] 03-03-2023 [id number] Body weight 84.3 kg MD Lauren Godwin Work Phone: [facility] Encounters Encounter Date Encounter Type Care Provider Facility Start: 08-09-2024 End: 08-09-2024 Emergency department patient visit SHIV DICKERSON [facility] Start: 04-06-2024 End: 04-06-2024 ambulatory [facility] Start: 01-09-2024 End: 01-09-2024 Emergency department patient visit Lauren Godwin Facility:[facility] Start: 01-09-2024 End: 01-09-2024 Emergency department patient visit MD Lauren Godwin Work Phone: [facility] Work Phone: Start: 12-18-2023 End: 12-18-2023 Emergency department patient visit Marie Garrison Facility:[facility] Start: 12-18-2023 End: 12-18-2023 Emergency department patient visit MD Lauren Godwin Work Phone: [facility] Work Phone: Start: 12-09-2023 End: 12-09-2023 ambulatory [facility] Start: 06-07-2023 End: [facility]: 05-27-2023 End: 05-27-2023 ambulatory [facility] Start: 03-03-2023 End: 03-03-2023 Emergency department patient visit Ramiro Cortez Facility:[facility] Start: 03-03-2023 End: 03-03-2023 Emergency department patient visit MD Lauren Godwin Work Phone: [facility] Work Phone: Start: [...] Date Care Activity Detail Author Start: 12-18-2023 [facility] Patient Education [facility] Work Phone: Patient referral [facility] Work Phone: Payers Date Payer Category Payer Self-pay [id number] 2022 Unknown [id number] 1960 Medicare [id number] 1950 Unknown [id number] 1950 Unknown [id number] Unknown [id number] Unknown [id number] Unknown [id number] [id number] Social History Date Type Detail Facility Start: 03-03-2023 End: 01-09-2024 Tobacco smoking status NHIS Ex-smoker (finding) [facility] Start: 1950 Sex Assigned At Male [facility] Progress note 04-06-2024 Note Date & Type Note Facility 04-06-2024 Note [facility] Subjective Jeb Riddle is a 73 y.o. year old male patient here for a follow up echo from January, he was amitted to [facility], for chest pain a couple weeks ago and had another echo. He had a lipid panel yesterday. At last appointment his statin was changed. 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 He still rides his bike to [employer] everyday, still active. Patient Active Problem List [...] He was admitted to the hospital at [facility] and was started on anticoagulation therapy. [...] metoprolol succinate XL (more content not included)... [facility] Progress note 12-09-2023 Note Date & Type Note Facility 12-09-2023 Note 8K can you read, out of the so I can make changes in [place] [facility] Subjective Jeb Riddle is a [...] presented to the emergency room at the [facility] and investigation including a CT scan [...] Rfl: 3 prav (more content not included)... [facility] Progress note 06-07-2023 Note Date & [...] Heart Sounds: norm (more content not included)... [facility] Progress note 05-27-2023 Note Date & Type Note Facility 05-27-2023 Note [place] [facility] Subjective [...] Rate 04/06/2023 80 Atrial Rate 04/06/2023 80 SD Interval 04/06/2023 176 QRS DURATION 04/06/2023 98 QT Interval 04/06/2023 396 QTC CALCULATION(BAZETT) 04/06/2023 456 P Happy 04/06/2023 79 R-Happy 04/06/2023 75 T Wave Happy 04/06/2023 73 Imaging and other tests Cardiac catheterization 04/06/2023: Impression/Findings: Coronary angiogram shows non-obstructive coronary artery disease. Plan: Medical therapy for (more content not included)... [facility] Evaluation note Note Date & Type Note Facility Evaluation note No assessment information availa ble [facility] Work Phone: Hospital Discharge instructions Note Date & Type Note Facility Hospital Discharge instructions Additional Instructions Continue Pepcid once or twice a day as needed [place] diet Follow-up with your family doctor for recheck Return to the ER for worsening pain shortness of breath fever or any other concerns [facility] Work Phone: Summary Purpose [...] section and content) DATE CREATED AUTHOR 10/07/2021 [facility] dical Specialist DATE CREATED AUTHOR AUTHOR'S ORGANIZ ATION 01/21/2023 [facility] pital DATE CREATED AUTHOR AUTHOR'S ORGANIZ ATION 01/09/2024 [facility] DATE CREATED AUTHOR AUTHOR'S ORGANIZ ATION 04/20/2024 [facility] DATE CREATED AUTHOR AUTHOR'S ORGANIZ ATION 08/10/2024 [facility] Care Teams (unrecognized sec tion [...] 2024 End: January 09, 2024 Naima Boyd [facility] Emergency Provider Active Start: January 09, [...] BE BASED ON THE PRIMARY CLINICAL RECORDS. [facility] [employer] [facility]. provides no warranty or guarantee of the accuracy or completeness of information in this document.
--- NOTE | 2024-09-03 08:31 | P.DS_ITS ---
DS: Providers Provider Date of admission: 08/31/24 07:48 Primary care physician: Rodriguez Godwin MD Consults: 09/02/24 10:41 Consult to Cardiology Routine Reason for consultation: nstemi Has provider been notified: No DS: Diagnosis Discharge Diagnosis (1) Small bowel obstruction: (2) Abdominal pain: (3) Elevated blood pressure reading: (4) Uncontrolled hypertension: (5) UTI (urinary tract infection): (6) DVT (deep venous thrombosis): (7) Crohn disease: Plan Admission findings: Sinus tachycardia, uncontrolled hypertension, CT scan findings could significant for small bowel obstruction consistent with his history of Crohn's disease, elevated creatinine and a positive urinalysis Acute small bowel obstruction-secondary to Crohn's-resolved at discharge Acute nstemi, resulting from SVT , troponin elevation persisting, improving at discharge Dehydration with acute elevation in creatinine, slightly elevated at the time of discharge Uncontrolled hypertension-stable but increased at discharge Coronary artery disease--see above DVT--currently on heparin, will change to Eliquis later today Generalized anxiety disorder-stable Admission status: Patient was seen and evaluated for abdominal pain, this x-ray showed no small bowel obstruction, patient returned a couple hours later and found to have a small bowel obstruction, medically necessary treatment will span 2 midnights. Inpatient status. In addition to the small bowel obstruction, patient had acute NSTEMI, improving currently, continue current treatment plan through today, likely discharge tomorrow DS: Summary Hospital Course Hospital Course: Patient was admitted with small bowel obstruction secondary to his Crohn's, did not need to place NG tube, was placed on IV steroids, he had a good response to that had not passed any gas the following morning, by the afternoon he did pass gas 1 time, but then had an episode of SVT was with hypertensive urgency, blood pressure over 220 systolic, patient was transferred back to the intensive care unit medications were adjusted his blood pressure and heart rate improved, serial labs obtained showed elevation in his high-sensitivity troponin baseline of 50 is normal, his get up to over 600, but is trending down currently, case was discussed with cardiology who felt it was just related to the SVT, he did have a heart cath back in March that was normal coronaries, his troponin is trending back down today's still elevated but just over 100, BNP also almost back to normal, calculated ejection fraction of 60% plus, patient feels much improved, at this point he will be discharged home in improving condition. Medications to this. Follow-up with me in the office later this week. Time Spent with Patient Time attestation: Total time spent providing and/or coordinating discharge services: Exam Constitutional Vital Signs, click to edit/add: Last Vital Signs Temp 98.3 F 09/03/24 07:16 Pulse 81 09/03/24 08:00 Resp 18 09/03/24 07:16 BP 149/74 H 09/03/24 07:16 Pulse Ox 93 L 09/03/24 07:16 O2 Del Method Room Air 09/03/24 07:16 O2 Flow Rate 2 08/31/24 15:43 Documenting provider has reviewed patient's vital signs: yes Common normals: apparent distress (air hunger) Chest Common normals: inspection of chest normal Respiratory Common normals: normal respiratory effort Cardio Common normals: regular rate and regular rhythm Rate: not tachycardic GI Common normals: Normal to inspection, nondistended, normoactive bowel sounds present, soft to palpation and non-tender DS: Data Data Completed and Pending Labs on day of discharge: Labs from last 24 hours 09/03/24 09/02/24 05:56 10:00 WBC 6.9 RBC 3.78 L Hgb 12.3 L Hct 36.3 L MCV 96.0 H MCH 32.5 MCHC 33.9 RDW 12.8 Plt Count 177 MPV 10.0 Neut % (Auto) 71.4 Lymph % (Auto) 22.1 Humphreys % (Auto) 5.2 Eos % (Auto) 0.9 Baso % (Auto) 0.0 L Neut # (Auto) 4.9 Lymph # (Auto) 1.5 Humphreys # (Auto) 0.4 Eos # (Auto) 0.1 Baso # (Auto) 0.0 Abs Immat Gran (auto) 0.03 Imm/Tot Granulo (auto) 0.4 Sodium 142 Potassium 4.3 Chloride 107 Carbon Dioxide 28.9 Anion Gap 10.4 BUN 32.0 H Creatinine 1.39 H Est GFR ( Amer) >60 Est GFR (Non-Af Amer) 50 L BUN/Creatinine Ratio 23.0 Glucose 185 H Calcium 8.3 L Troponin I High Sens 189.9 H* 471.2 H* NT-Pro-B Natriuret Pep 978.0 H Discharge Plan Discharge Disposition: Home, Self-Care Condition: Good Discharge Medications: New lisinopril 20 mg Tablet 40 mg PO DAILY Qty: 60 12RF amlodipine 5 mg Tablet 5 mg PO QD Qty: 30 11RF prednisone 10 mg tablet 40 mg PO DAILY Qty: 32 0RF Rx Instructions: 4/day for 3 days, 3/day for 3 days, 2/day for 3 days, 1/day for 3 days, 1/2 / day for 4 days Continued isosorbide mononitrate 30 mg tablet extended release 24 hr 30 mg PO QAM Qty: 30 11RF ondansetron 8 mg tablet,disintegrating 8 mg PO Q8H PRN (Reason: nausea and vomiting) clonidine HCl 0.1 mg tablet 0.1 mg PO BID lorazepam [Ativan] 1 mg tablet 1 mg PO BID PRN (Reason: anxiety) Eliquis 5 mg Tablet 5 mg PO BID Rx Instructions: 10 mg a day for 1 week then 5 mg po BID lisinopril 5 mg tablet 40 mg PO DAILY mesalamine 400 mg capsule (with del rel tablets) 800 mg PO BID Print Language: Maori Forms: Portal Instructions
--- NOTE | 2024-09-04 15:22 | CM.DCFOLLOWU ---
Person spoke with:patient How are you feeling?well How is your pain?none Did you understand your discharge instructions?yes Do you have any questions about your discharge instructions? no Were you given any prescriptions at discharge?yes Were you able to get your prescriptions filled? He is going to get them today Do you understand how to take your medications as ordered?yes Do you have any questions about your follow up appointment and do you plan to keep your follow up appointment? no questions, moved follow up to Tuesday Is there anything else that you would like to discuss?no Questions/Comments/Concerns/Other:none
== END 2024-09-03 09:34 | disposition home or self-care (01) | DRG 385 ==
LOC: ER 06:19 → ICU 15:31 → MS 09-03 08:13
PROVIDERS: Admitting Provider Family Medicine; Emergency Provider Student in an Organized Health Care Education/Training Program; Family Provider Family Medicine; PCP Family Medicine; Visit Provider Family Medicine
DX: K50.912 Crohn's disease, unspecified, with intestinal obstruction (principal); I21.4 Non-ST elevation (NSTEMI) myocardial infarction; N39.0 Urinary tract infection, site not specified; I47.10 Supraventricular tachycardia, unspecified; E86.0 Dehydration; F41.1 Generalized anxiety disorder; I10 Essential (primary) hypertension; I25.10 Atherosclerotic heart disease of native coronary artery without angina pectoris; I16.0 Hypertensive urgency; Z87.891 Personal history of nicotine dependence; Z79.01 Long term (current) use of anticoagulants; Z79.899 Other long term (current) drug therapy; Z86.711 Personal history of pulmonary embolism; Z86.718 Personal history of other venous thrombosis and embolism
CPT/HCPCS: 36415; 70450; 71275; 74022; 74177; 80048; 80053; 81001; 83605; 83690; 83735; 83880; 84484; 85025; 85610; 85730; 93005; 93308; 94761; 96374; 96375; 96376; 99285; J0360; J1171; J1644; J2060; J2405; J2919; J3475; J7512; Q9966

== ENCOUNTER 2024-09-14 07:38 | Outpatient (OUT) | payer MEDICARE, SELFPAY ==
--- OUTSIDE RECORDS SUMMARY | 2024-09-14 07:40 | XMS_ITS | CCD ---
Author Organization [facility] Care Team Providers Care Instrument Lens Grinder Name Role Phone DR BEHZAD CROCKER Primary Care Unavailable DANIEL ., JUNI Attending Unavailable DANIEL ., JUNI Admitting Unavailable DR ROBERT DAVENPORT V Consulting Unavailable PITER GROSSMAN Consulting Unavailable DANIEL ., JUNI Consulting Unavailable DIAB ., GRAYSON Consulting Unavailable ADITYA OATES Consulting Unavailable MD Lauren Godwin Primary Care Provider [phone] DO Ramiro Cortez Emergency Provider MD Lauren Godwin Primary Care Provider [phone] KYA Garrison Emergency Provider [phone] Bulldk, BAIT PACKER-BC Naima Phelan Emergency Provider Lauren Godwin Primary Care Unavailable Naima Boyd Admitting Unavailable Naima Boyd Attending Unavailable Ramiro Cortez Admitting Unavailable Ramiro Cortez Attending Unavailable Lauren Godwin Primary Care Unavailable Marie Garrison Attending Unavailable Lauren Godwin Primary Care Unavailable Marie Garirson Admitting Unavailable JESSICA FORRESTER Attending Unavailable SHIV SHIRLEY Attending Unavailable JESSICA FORRESTER Attending Unavailable JESSICA FORRESTER Attending Unavailable SHIV DICKERSON Attending Unavailable LAUREN GODWIN Primary Care Unavailable Allergies Allergy Classification Reported Allergen(s) Allergy Type Date of Onset Reaction(s) Facility (2 sources) Fish derivative; Translations: [fish derived] Propensity to adverse reactions 03-03-20 Gastrointestinal Upset [facility] (1 source) atorvastatin; Translations: [ATORVASTATIN] Drug Allergy 04-06-20 [facility] Repository Medications Current Medications Medication Drug [...] disease (2 sources) Atherosclerotic heart disease of [place] coronary artery without angina pectoris; Translations: [Atherosclerotic heart disease of [place] coronary artery without angina pectoris] 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; convulsions (1 source) Unspecified convulsions; Translations: [Unspecified convulsions] Onset: 08-09-2024 Episodic Essential hypertension (3 sources) Essential (primary) hypertension; Translations: [ESSENTIAL PRIMARY HYPERTENSION] Onset: 01-12-2023 Chronic Other aftercare (1 source) custodial (current) use of systemic steroids; Translations: [NURSING HOME USE OF SYSTEMIC STEROIDS] Onset: 01-12-2023 Episodic Other aftercare (1 source) Other moth exterminator (current) drug therapy; Translations: [OTH NURSING HOME CURRENT DRUG THERAPY] Onset: 01-12-2023 Episodic Other [...] 08-09-20 ABSOLUTE BASOPHIL 0.0 X10E9/L Normal 0.0-0.2 [facility] Comment on above: Performed By: #### 1 9123-9, 63296-2, CMP, 12754-5, 66758-2, CBCA, 5643-2, PINR #### [facility] ([id number]) [address] [place] [address] 12455 ABSOLUTE NEUTROPHIL 3.9 X10E9/L Normal 1.5-6.[address] [facility] Comment on above: Performed By: #### 1 9123-9, 82433-2, CMP, 40543-2, 42931-9, CBCA, 5643-2, PINR #### [facility] ([id number]) [address] [place] [address] 50864 Basophils/100 WBC (Bld) 0.3 % Normal [facility] Comment on above: Performed By: #### 1 9123-9, 32951-7, CMP, 06368-0, 71377-8, CBCA, 5643-2, PINR #### [facility] ([id number]) [address] [place] [address] 19073 Eosinophils (Bld) [#/Vol] 0.1 10*3/uL Normal 0.0-0.4 [facility] Comment on above: Performed By: #### 1 9123-9, 23144-1, CMP, 69075-8, 41227-2, CBCA, 5643-2, PINR #### [facility] ([id number]) [address] [place] [address] 65349 Eosinophils/100 WBC (Bld) 1.4 % Normal [facility] Comment on above: Performed By: #### 1 23-9, 36661-2, CMP, 05260-5, 05182-2, CBCA, 5643-2, PINR #### [facility] ([id number]) [address] [place] [address] 42737 Erythrocyte distribution width (RBC) [Ratio] 13.0 % Normal 11.5-15.0 [facility] Comment on above: Performed By: #### 1 9123-9, 83986-5, CMP, 60111-6, 31311-9, CBCA, 5643-2, PINR #### [facility] ([id number]) [address] [place] [address] 41528 Hematocrit (Bld) [Volume fraction] 35.7 % Low 39-49 [facility] Comment on above: Performed By: #### 1 9123-9, 07918-2, CMP, 74979-2, 84990-4, CBCA, 5643-2, PINR #### [facility] ([id number]) [address] [place] [address] 32945 Hemoglobin (Bld) [Mass/Vol] 12.3 g/dL Low 13.0-17.0 [facility] Comment on above: Performed By: #### 1 9123-9, 04010-1, CMP, 34364-6, 85070-1, CBCA, 5643-2, PINR #### [facility] ([id number]) [address] [place] [address] 16951 Lymphocytes (Bld) [#/Vol] 1.1 10*3/uL Normal 1.0-3.5 [facility] Comment on above: Performed By: #### 1 9123-9, 33907-4, CMP, 03422-7, 77203-0, CBCA, 5643-2, PINR #### [facility] ([id number]) [address] [place] [address] 31945 Lymphocytes/100 WBC (Bld) 21.0 % Normal [facility] Comment on above: Performed By: #### 1 9123-9, 77470-1, CMP, 31218-2, 10145-1, CBCA, 5643-2, PINR #### [facility] ([id number]) [address] [place] [address] [place] [address] MCH (RBC) [Entitic mass] 33.2 pg Normal 27-34 [facility] Comment on above: Performed By: #### 1 9123-9, 35292-1, CMP, 27312-0, 63838-1, CBCA, 5643-2, PINR #### [facility] ([id number]) [address] [place] [address] 17242 MCHC (RBC) [Mass/Vol] 34.3 g/dL Normal 32-36 [facility] Comment on above: Performed By: #### 1 9123-9, 21984-2, CMP, 50277-8, 60719-7, CBCA, 5643-2, PINR #### [facility] ([id number]) [address] [place] [address] 95170 MCV (RBC) [Entitic vol] 97 fL Normal 80-100 [facility] Comment on above: Performed By: #### 1 9123-9, 97242-3, CMP, 89942-2, 14057-3, CBCA, 5643-2, PINR #### [facility] ([id number]) [address] [place] [address] 75471 Monocytes (Bld) [#/Vol] 0.2 10*3/uL Normal 0-0.9 [facility] Comment on above: Performed By: #### 1 9123-9, 17835-7, CMP, 81444-2, 12464-1, CBCA, 5643-2, PINR #### [facility] ([id number]) [address] [place] [address] 40682 Monocytes/100 WBC (Bld) 4.5 % Normal [facility] Comment on above: Performed By: #### 1 9123-9, 95028-5, CMP, 75845-8, 51099-8, CBCA, 5643-2, PINR #### [facility] ([id number]) [address] [place] [address] 93640 Neutrophils/100 WBC (Bld) 72.8 % Normal [facility] Comment on above: Performed By: #### 1 9123-9, 98433-0, CMP, 06674-4, 98866-3, CBCA, 5643-2, PINR #### [facility] ([id number]) [address] [place] [address] 91109 Platelet mean volume (Bld) [Entitic vol] 7.7 fL Normal 7-12 [facility] Comment on above: Performed By: #### 1 9123-9, 98052-0, CMP, 44744-3, 03175-4, CBCA, 5643-2, PINR #### [facility] ([id number]) [address] [place] [address] 00436 Platelets (Bld) [#/Vol] 208 10*3/uL Normal 150-450 [facility] Comment on above: Performed By: #### 1 9123-9, 78769-9, CMP, 53960-9, 92071-8, CBCA, 5643-2, PINR #### [facility] ([id number]) [address] [place] [address] 97659 RBC COUNT 3.69 X10E12/L Low 4.10-5.70 [facility] Comment on above: Performed By: #### 1 9123-9, 82146-2, CMP, 32599-8, 87886-6, CBCA, 5643-2, PINR #### [facility] ([id number]) [address] [place] [address] 26445 WBC (Bld) [#/Vol] 5.4 10*3/uL Normal 4.0-11.0 [facility] Comment on above: Performed By: #### 1 9123-9, 21908-1, CMP, 14114-0, 68476-2, CBCA, 5643-2, PINR #### [facility] ([id number]) [address] [place] [address] 64119 COMPREHENSIVE METABOLIC PANE [facility] 08-09-2024 Albumin [Mass/Vol] 3.5 g/dL Normal 3.2-5.3 [facility] Comment on above: Performed By: #### 1 9123-9, 76847-3, CMP, 85915-0, 24255-5, CBCA, 5643-2, PINR #### [facility] ([id number]) [address] [place] [address] 85473 ALP [Catalytic activity/Vol] 56 U/L Normal 39-130 [facility] Comment on above: Performed By: #### 1 9123-9, 32758-8, CMP, 64966-1, 79298-1, CBCA, 5643-2, PINR #### [facility] ([id number]) [address] [place] [address] 19835 ALT [Catalytic activity/Vol] 25 U/L Normal 0-40 [facility] Comment on above: Performed By: #### 1 9123-9, 23953-8, CMP, 95513-5, 84622-0, CBCA, 5643-2, PINR #### [facility] ([id number]) [address] [place] [address] 87237 Anion gap [Moles/Vol] 7 mmol/L Normal 5-15 [facility] Comment on above: Performed By: #### 1 9123-9, 23030-6, CMP, 52127-8, 28554-7, CBCA, 5643-2, PINR #### [facility] ([id number]) [address] [place] [address] 60245 AST [Catalytic activity/Vol] 19 U/L Normal 0-41 [facility] Comment on above: Performed By: #### 1 9123-9, 24777-3, CMP, 45337-6, 99511-7, CBCA, 5643-2, PINR #### [facility] ([id number]) [address] [place] [address] 06252 Bilirubin [Mass/Vol] 0.4 mg/dL Normal 0.3-1.[address] [facility] Comment on above: Performed By: #### 1 9123-9, 05428-0, CMP, 46301-3, 62485-7, CBCA, 5643-2, PINR #### [facility] ([id number]) [address] [place] [address] 40324 Calcium [Mass/Vol] 8.8 mg/dL Normal 8.5-10.5 [facility] Comment on above: Performed By: #### 1 9123-9, 54957-1, CMP, 88172-2, 85944-3, CBCA, 5643-2, PINR #### [facility] ([id number]) [address] [place] [address] 22574 Chloride [Moles/Vol] 108 mmol/L Normal 98-[address] [facility] Comment on above: Performed By: #### 1 9123-9, 41106-3, CMP, 02020-0, 71711-3, CBCA, 5643-2, PINR #### [facility] ([id number]) [address] [place] [address] 79986 CO2 [Moles/Vol] 23 mmol/L Normal 22-32 [facility] Comment on above: Performed By: #### 1 9123-9, 66805-5, CMP, 89402-6, 52192-7, CBCA, 5643-2, PINR #### [facility] ([id number]) [address] [place] [address] 95402 Creatinine [Mass/Vol] 1.37 mg/dL High 0.70-1.20 [facility] Comment on above: Result Comment: METH OD TRACEABLE TO IDMS STANDARD Performed By: #### 1 9123-9, 69091-0, CMP, 05628-7, 28769-5, CBCA, 5643-2, PINR #### [facility] ([id number]) [address] [place] [address] 70448 GFR/1.73 sq M.predicted among non-blacks MDRD (S/P/Bld) [Vol rate/Area] 54 mL/min/{1.73_m2} Low >59 [facility] Comment on above: Result Comment: Reported eGFR is based on the CKD-EPI 1 equation that does not use a race coefficient. Performed By: #### 1 9123-9, 36522-3, CMP, 15634-1, 35743-1, CBCA, 5643-2, PINR #### [facility] ([id number]) [address] [place] [address] 06961 Glucose [Mass/Vol] 155 mg/dL High 65-99 [facility] Comment on above: Performed By: #### 1 9123-9, 15136-9, CMP, 69255-7, 70148-3, CBCA, 5643-2, PINR #### [facility] ([id number]) [address] [place] [address] 47916 Potassium [Moles/Vol] 4.3 mmol/L Normal 3.5-5.0 [facility] Comment on above: Performed By: #### 1 9123-9, 69006-9, CMP, 28922-8, 14648-4, CBCA, 5643-2, PINR #### [facility] ([id number]) [address] [place] [address] 26832 Protein [Mass/Vol] 6.0 g/dL Normal 6.0-8.0 [facility] Comment on above: Performed By: #### 1 9123-9, 41271-7, CMP, 45395-7, 68873-5, CBCA, 5643-2, PINR #### [facility] ([id number]) [address] [place] [address] 18133 Sodium [Moles/Vol] 138 mmol/L Normal 134-146 [facility] Comment on above: Performed By: #### 1 9123-9, 74502-9, CMP, 04096-4, 89899-8, CBCA, 5643-2, PINR #### [facility] ([id number]) [address] [place] [address] 54585 Urea nitrogen [Mass/Vol] 25 mg/dL Normal 5-27 [facility] Comment on above: Performed By: #### 1 9123-9, 50099-3, CMP, 37494-2, 96485-5, CBCA, 5643-2, PINR #### [facility] ([id number]) [address] [place] [address] BRAIN WO CONTon CT BRAIN WO [...] Moran MD on 08/09/2024 12:54 PM Normal [facility] DRUG SCREEN, URINEon 024 AMPHETAMINE/METHAMP Negative Normal NEG [facility] Comment on above: Result Comment: AMPH /METH screening cut off = 1000 ng/mL Performed By: #### 1 9123-9, 34585-4, CMP, 53371-4, 13739-6, CBCA, 5643-2, PINR #### [facility] ([id number]) [address] [place] [address] 26992 BARBITURATES Negative Normal NEG [facility] Comment on above: Result Comment: Maria Eugenia iturates screening cut off value = 200 ng/mL Performed By: #### 1 9123-9, 92389-9, CMP, 07291-3, 16744-1, CBCA, 5643-2, PINR #### [facility] ([id number]) [address] [place] [address] 11798 BENZODIAZEPINES Negative Normal NEG [facility] Comment on above: Result Comment: Paulie odiazepines screening cut off value = 200 ng/mL Performed By: #### 1 9123-9, 03241-6, CMP, 10924-3, 59351-3, CBCA, 5643-2, PINR #### [facility] ([id number]) [address] [place] [address] 49175 CANNABINOIDS Negative Normal NEG [facility] Comment on above: Result Comment: Nora abinoids/THC screening cut off value = 50 ng/mL Performed By: #### 1 9123-9, 26651-7, CMP, 91048-8, 82763-0, CBCA, 5643-2, PINR #### [facility] ([id number]) [address] [place] [address] 37903 COCAINE METABOLITE Negative Normal NEG [facility] Comment on above: Result Comment: Coca ine screening cut off value = 300 ng/mL Performed By: #### 1 9123-9, 65647-7, [facility], 14276-6, 70565-5, CBCA, 5643-2, PINR #### [facility] ([id number]) [address] [place] [address] 03340 ECSTASY Negative Normal NEG [facility] Comment on above: Result Comment: Ecst asy screening cut off value = 500 ng/mL This report is intended for use in clinical monitoring or management of patients. Performed By: #### 1 9123-9, 76065-1, [facility], 42830-6, 84983-4, CBCA, 5643-2, PINR #### [facility] ([id number]) [address] [place] [address] 67038 METHADONE Negative Normal NEG [facility] Comment on above: Result Comment: Meth adone screening cut off value = 300 ng/mL. Performed By: #### 1 9123-9, 71498-1, CMP, 83398-7, 86578-8, CBCA, 5643-2, PINR #### [facility] ([id number]) [address] [place] [address] 61549 OPIATES Negative Normal NEG [facility] Comment on above: Result Comment: Opia brennen screening cut off value = 300 ng/mL NOTE: This test is used for the detection of codeine, hydrocodone (>1000 ng/mL), morphine and hydromorphone (>900 ng/mL) in urine. Performed By: #### 1 9123-9, 78840-5, CMP, 74479-5, 36904-2, CBCA, 5643-2, PINR #### [facility] ([id number]) [address] [place] [address] 67746 OXYCODONE Negative Normal NEG [facility] Comment on above: Result Comment: Oxyc odone screening cut off value = 300 ng/mL NOTE: This test is used for the detection of oxycodone and oxymorphone in urine. Performed By: #### 1 9123-9, 17028-0, [facility], 28023-2, 38168-8, CBCA, 5643-2, PINR #### [facility] ([id number]) [address] [place] [address] 00428 PHENCYCLIDINE Negative Normal NEG [facility] Comment on above: Result Comment: Phen cyclidine screening cut off value = 25 ng/mL Performed By: #### 1 9123-9, 42665-7, [facility], 92532-2, 76259-8, CBCA, 5643-2, PINR #### [facility] ([id number]) [address] [place] [address] 32087 ETHANOLon 08-09-2024 Ethanol [Mass/Vol] mg/dL Normal 0.00-0.08 [facility] Comment on above: Result Comment: This report is intended for use in clinical monitoring or management of patients. Performed By: #### 1 9123-9, 89775-1, CMP, 90224-1, 80639-6, CBCA, 5643-2, PINR #### [facility] ([id number]) [address] [place] [address] [place] [address] Fibrin D-dimer DDU (PPP) [Ma ss/Vol]on 08-09-2024 D DIMER 167 ng/mL DDU Normal <255 [facility] Comment on above: Result Comment: Results <255 ng/mL DDU: The presence of a VTE can safely be excluded with a negative D-Dimer result and Wells score. A negative result doesn't exclude the possibility of DIC. The test be repeated along with other diagnostic tests if the patient's symptoms persist or worsen. [email or web address] Performed By: #### 1 9123-9, 93881-9, CMP, 25578-4, 71331-0, CBCA, 5643-2, PINR #### [facility] ([id number]) [address] [place] [address] 08376 MAGNESIUMon 08-09-2024 Magnesium [Mass/Vol] 1.4 mg/dL Low 1.8-2.[address] [facility] Comment on above: Performed By: #### 1 9123-9, 95337-1, [facility], 96338-1, 48454-5, CBCA, 5643-2, PINR #### [facility] ([id number]) [address] [place] [address] 17805 PROTIME AND INRon 08-09-2024 INR Coag (PPP) [Relative time] 1.2 {INR} High 0.8-1.1 [facility] Comment on above: Performed By: #### 1 9123-9, 75450-6, CMP, 80593-6, 34638-3, CBCA, 5643-2, PINR #### [facility] ([id number]) [address] [place] [address] 68681 PT Coag (PPP) [Time] 14.3 s High 9.8-13.[address] [facility] Comment on above: Result Comment: NEW REFERENCE RANGE Performed By: #### 1 9123-9, 06585-9, CMP, 71038-5, 64033-9, CBCA, 5643-2, PINR #### [facility] ([id number]) [address] [place] [address] 85561 Troponin I.cardiac High sens itivity method [Mass/Vol]on 08-09-2024 1 HOUR TROP I, HIGH SENSITIVITY 10 ng/L Normal <21 [facility] Comment on above: Performed By: #### 1 9123-9, 87038-8, CMP, 70698-5, 06598-3, CBCA, 5643-2, PINR #### [facility] ([id number]) [address] [place] [address] 60795 TROPONIN I, HIGH SENSITIVITY 8 ng/L Normal <21 [facility] Comment on above: Performed By: #### 1 9123-9, 98823-6, CMP, 16879-5, 60684-9, CBCA, 5643-2, PINR #### [facility] ([id number]) [address] [place] [address] 09473 URINALYSISon 08-09-2024 Bilirubin Ql (U) Negative Normal NEG [facility] Comment on above: Performed By: #### 1 9123-9, 61264-8, CMP, 61496-8, 02580-7, CBCA, 5643-2, PINR #### [facility] ([id number]) [address] [place] [address] 24123 BLOOD/HGB Negative Normal NEG [facility] Comment on above: Performed By: #### 1 9123-9, 12322-9, CMP, 70531-6, 91257-0, CBCA, 5643-2, PINR #### [facility] ([id number]) [address] [place] [address] 16717 Color (U) YELLOW Normal YELLOW [facility] Comment on above: Performed By: #### 1 9123-9, 83106-2, CMP, 22157-3, 16556-0, CBCA, 5643-2, PINR #### [facility] ([id number]) [address] [place] [address] 81877 Glucose Ql (U) Negative Normal NEG [facility] Comment on above: Performed By: #### 1 9123-9, 42701-2, CMP, 37637-7, 68517-8, CBCA, 5643-2, PINR #### [facility] ([id number]) [address] [place] [address] 81411 Ketones Ql (U) Negative Normal NEG [facility] Comment on above: Performed By: #### 1 9123-9, 44123-3, CMP, 42267-8, 64633-5, CBCA, 5643-2, PINR #### [facility] ([id number]) [address] [place] [address] [place] [address] Leukocyte esterase Test strip Ql (U) Negative Normal NEG [facility] Comment on above: Performed By: #### 1 9123-9, 74252-9, CMP, 34380-5, 39989-4, CBCA, 5643-2, PINR #### [facility] ([id number]) [address] [place] [address] 00501 Nitrite Ql (U) Negative Normal NEG [facility] Comment on above: Performed By: #### 1 9123-9, 99858-2, CMP, 70352-6, 60218-6, CBCA, 5643-2, PINR #### [facility] ([id number]) [address] [place] [address] 08779 pH (U) 6.0 [pH] Normal 5.0-8.5 [facility] Comment on above: Performed By: #### 1 9123-9, 17065-0, CMP, 59472-5, 24846-8, CBCA, 5643-2, PINR #### [facility] ([id number]) [address] [place] [address] 41191 Protein Ql (U) Negative Normal NEG [facility] Comment on above: Performed By: #### 1 9123-9, 34597-5, CMP, 28637-7, 79655-9, CBCA, 5643-2, PINR #### [facility] ([id number]) [address] [place] [address] 67400 Specific gravity (U) [Rel density] 1.025 Normal 1.003-1.03 5 [facility] Comment on above: Performed By: #### 1 9123-9, 64972-0, CMP, 84621-6, 31157-2, CBCA, 5643-2, PINR #### [facility] ([id number]) [address] [place] [address] 70228 TURBIDITY CLEAR Normal CLEAR [facility] Comment on above: Performed By: #### 1 9123-9, 58085-0, CMP, 28324-6, 06935-0, CBCA, 5643-2, PINR #### [facility] ([id number]) [address] [place] [address] 40240 Urobilinogen Qn (U) 0.2 {Temo'U}/dL Normal <1.1 [facility] Comment on above: Performed By: #### 1 9123-9, 37503-6, CMP, 02099-5, 99961-3, CBCA, 5643-2, PINR #### [facility] ([id number]) [address] [place] [address] 35611 URN MACROSCOPIC NURon 2023 BILIRUBIN FRANKLIN Negative Normal NEG [facility] Comment on above: Performed By: #### N UM #### [facility] ([id number]) [address] [place] [address] [place] [address] BLOOD/HGB FRANKLIN Negative Normal NEG [facility] Comment on above: Performed By: #### N UM #### [facility] ([id number]) [address] [place] [address], [place] [address] GLUCOSE FRANKLIN Negative Normal NEG [facility] Comment on above: Performed By: #### N UM #### [facility] ([id number]) [address] [place] [address], [place] [address] KETONES FRANKLIN Negative Normal NEG [facility] Comment on above: Performed By: #### N UM #### [facility] ([id number]) [address] [place] [address] [place] [address] LEUKOCYTE ESTERASE FRANKLIN Negative Normal NEG [facility] Comment on above: Performed By: #### N UM #### [facility] ([id number]) [address] [place] [address], [place] [address] NITRITE FRANKLIN Negative Normal NEG [facility] Comment on above: Performed By: #### N UM #### [facility] ([id number]) [address] [place] [address], [place] [address] PH FRANKLIN 5.5 Normal 5.0-8.5 [facility] Comment on above: Performed By: #### N UM #### [facility] ([id number]) [address] [place] [address] [place] [address] PROTEIN FRANKLIN Negative Normal NEG [facility] Comment on above: Performed By: #### N UM #### [facility] ([id number]) [address] [place] [address], [place] [address] SPECIFIC GRAVITY FRANKLIN 1.020 Normal 1.003-1 .03 5 [facility] Comment on above: Performed By: #### N UM #### [facility] ([id number]) [address] [place] [address] UROBILINOGEN FRANKLIN 0.2 eu/dL Normal <1.1 [facility] Comment on above: Performed By: #### N UM #### [facility] ([id number]) [address] [place] [address] aPTT Coag (PPP) [Time]on aPTT Coag (Bld) [Time] 33 s Normal 26-37 [facility] Comment on above: Result Comment: NEW REFERENCE RANGE Performed By: #### 1 9123-9, 01477-1, CMP, 14420-5, 37139-2, CBCA, 5643-2, PINR #### [facility] ([id number]) [address] [place] [id number] 36on 04-18-2024 36 From: eJssica muñoz MD Sent: 04/18/2024 12:32 PM EDT To: Yuridia Nuñez MA Subject: RE: Scan Please inform him that blood testing for clotting disorder is negative. He should follow up with Dr Godwin for cancer screening. Pt has been notified [facility] Office Visiton 04-06-2024 Follow-up visit [id number] Jeb Riddle 1950 M Date Provider Department Center 04/06/2024 JESSICA JAMISON [facility] [facility] Family History Problem Relation Age of Onset Diabetes Mother Coronary artery disease Mother Heart attack Father Diabetes Father Coronary artery disease Father Family Status - Relation Status Age at Mother Father Level of Service:[address] [place] OFFICE/OUTPATIENT ESTABLISHED MOD MDM 30 MIN [facility] 3602-17-2024 36 Patient called back and said he is taking meds as prescribed at last visit with Dr. Forrester. I made him apt with Dr. Forrester end of Mar since he is not here in Apr. [facility] 36on 02-15-2024 36 Regarding echo from 02/02/2024: MD Yuridia Herman MA Has he been taking meds as I recommended at last visit? 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 He should come for a visit in 3 months. LM w/ sister Mary to return my call. Normal [facility] Activated partial thrombopla stin time (aPTT) in platelet poor plasma by coagulation aOrdered By: Naima Boyd on 01-09-2024 aPTT Coag (PPP) [Time] 29.1 s 25.1-36.5 [facility] Comment on above: A hematocrit value g reater than 55% may lead to inaccurate results in coagulation testing. Patients having hematocrit values >55% require a special collection tube for coagulation studies. Please contact the laboratory at [phone] for redraw instructions. B-Type Natriuretic Peptideon 01-09-2024 Natriuretic peptide B (Bld) [Mass/Vol] 172.0 pg/mL High 5-100 [facility] Comment on above: Result Comment: PERF ORMED BY: [facility] [address] [place] [id number] PATHOLOGIST SOLE CONDITIONER RADHA BARRON M.D. Performed By: #### B MAIL CLERK, HS TROP, BMP, CK, DIFF CBC ####[address] Basic Metabolic Panelon 12-14 Anion gap [Moles/Vol] Not performed Normal 6.0-15.0 [facility] Comment on above: Performed By: #### B MAIL CLERK, HS TROP, BMP, CK, DIFF CBC ####[place] [id number] [facility] Calcium [Mass/Vol] 8.7 mg/dL Normal 8.6-10.3 [facility] Comment on above: Performed By: #### B MAIL CLERK, HS TROP, BMP, CK, DIFF CBC ####[address] Chloride [Moles/Vol] 109 mmol/L High 98-107 [facility] Comment on above: Performed By: #### B MAIL CLERK, HS TROP, BMP, CK, DIFF CBC ####[place] [id number] [place] CO2 [Moles/Vol] 22.4 mmol/L Normal 21.0-31.0 [facility] Comment on above: Performed By: #### B MAIL CLERK, HS TROP, BMP, CK, DIFF CBC ####[address] Creatinine [Mass/Vol] 1.16 mg/dL Normal 0.70-1.30 [facility] Comment on above: Performed By: #### B MAIL CLERK, HS TROP, BMP, CK, DIFF CBC ####[address] Creatinine Clr Calc Pharmacy 64.96 Normal [facility] Comment on above: Result Comment: PERF ORMED BY: [facility] [address] [place] [address] PATHOLOGIST SOLE CONDITIONER RADHA BARRON M.D. Performed By: #### B MAIL CLERK, HS TROP, BMP, CK, DIFF CBC ####[address] GFR/1.73 sq M.predicted MDRD (S/P/Bld) [Vol rate/Area] mL/min/{1.73_m2} Normal [facility] Comment on above: Performed By: #### B MAIL CLERK, HS TROP, BMP, CK, DIFF CBC ####[address] Glucose [Mass/Vol] 95 mg/dL Normal 70-100 [facility] Comment on above: Result Comment: [place] Glucose Reference Range is dependent on time and content of last meal. Glucose of more than 200 mg/dL in a nonstressed, ambulatory subject supports the diagnosis of Diabetes Mellitus. ADA recommended reference range Performed By: #### B MAIL CLERK, HS TROP, BMP, CK, DIFF CBC ####[address] Potassium Normal 3.5-5.1 [facility] Comment on above: Result Comment: Spec imen hemolyzed, redraw requested Performed By: #### B MAIL CLERK, HS TROP, BMP, CK, DIFF CBC ####[facility] [id number] Sodium [Moles/Vol] 142 mmol/L Normal 136-145 [facility] Comment on above: Performed By: #### B MAIL CLERK, HS TROP, BMP, CK, DIFF CBC ####[facility] [id number] Urea nitrogen [Mass/Vol] 20 mg/dL Normal 7-25 [facility] Comment on above: Performed By: #### B MAIL CLERK, HS TROP, BMP, CK, DIFF CBC ####[facility] [id number] Basophils Auto (Bld) [#/Vol] Ordered By: Naima Bullimore on 01-09-2024 Basophils (Bld) [#/Vol] N/A [facility] Basophils/100 WBC Auto (Bld) Ordered By: Naima Bullimore on 01-09-2024 Basophils/100 WBC (Bld) N/A [facility] Basophils/100 WBC Manual cnt (Bld)Ordered By: Naima Godwinimore on 01-09-2024 Basophils/100 WBC (Bld) 0 % 0-2 [facility] CT angio chest PE protocolon 01-09-2024 CT angio chest PE protocol [facility] [place] [address] CT Scan Report Signed Patient: Jeb Riddle MR#: [id number] : 1950 Acct:[id number] Age/Sex: 73 / M ADM Date: 01/09/24 Loc: ER Room: Type: [facility] ER Attending Dr: Copies to: [...] Jeb Collins M.D.01/09/2024 6:17 PM Dictation Location: [place] [address] Transcribed By: [facility] 01/09/241816 Dictated By: Jeb Collins II, MD 01/09/241810 Signed By: 01/09/241816 Normal [facility] Calcium [Mass/volume] in Ser um or PlasmaOrdered By: Naima Boyd on 01-09-2024 Calcium [Mass/Vol] 8.7 mg/dL 8.6-10.3 [facility] Carbon dioxide, total [Moles /volume] in Serum or PlasmaOrdered By: Naima Boyd on 01-09-2024 CO2 [Moles/Vol] 22.4 mmol/L 21.0-31.0 [facility] Chloride [Moles/volume] in S pooja or PlasmaOrdered By: Naima Boyd on 01-09-2024 Chloride [Moles/Vol] 109 mmol/L 98-107 [facility] Coagulation Profileon 2023 aPTT Coag (Bld) [Time] 29.1 s Normal 25.1-36.5 [facility] Comment on above: Order Comment: REDRA W Result Comment: A he matocrit value greater than 55% may lead to inaccurate results in coagulation testing. Patients having hematocrit values >55% require a special collection tube for coagulation studies. Please contact the laboratory at [phone] for redraw instructions. Performed By: #### P P, DDIMER ####[place] [address] [place] [address] [facility] INR Coag (PPP) [Relative time] 1.0 {INR} Normal [facility] Comment on above: Order [...] 4.5 Performed By: #### P P, DDIMER ####[place] [address] [place] [id number] [facility] PT Coag (PPP) [Time] 11.9 s Normal 9.0-12.9 [facility] Comment on above: Order Comment: REDRA W Result Comment: A he matocrit value greater than 55% may lead to inaccurate results in coagulation testing. Patients having hematocrit values >55% require a special collection tube for coagulation studies. Please contact the laboratory at [phone] for redraw instructions. Performed By: #### P P, DDIMER ####[address] [address] [facility] Creatine Kinaseon 01-09-2024 CK [Catalytic activity/Vol] 81 U/L Normal 30-223 [facility] Comment on above: Performed By: #### B MAIL CLERK, HS TROP, BMP, CK, DIFF CBC ####[place] [address] [place] [id number] [facility] Creatine kinase [Enzymatic a ctivity/volume] in Serum or PlasmaOrdered By: Naima Boyd on 01-09-2024 CK [Catalytic activity/Vol] 81 U/L 30-223 [facility] Creatinine [Mass/volume] in Serum or PlasmaOrdered By: Naima Boyd on 01-09-2024 Creatinine [Mass/Vol] 1.16 mg/dL 0.70-1.30 [facility] D-Dimer High Sensitivityon 0 01-09-2024 D-Dimer High Sensitivity 1905 ng/mL High 0-243 [facility] Comment on above: Order [...] coagulation studies. Please contact the laboratory at [phone] for redraw instructions. PERFORMED BY: [facility] [address] [place] [address] PATHOLOGIST SOLE CONDITIONER RADHA BARRON M.D. Performed By: #### P P, DDIMER ####[place] [address] [place] [id number] [facility] Diff and CBCon 01-09-2024 Basophils/100 WBC (Bld) 0 % Normal 0-2 [facility] Comment on above: Performed By: #### B MAIL CLERK, HS TROP, BMP, CK, DIFF CBC ####[place] [id number] [facility] Eosinophils/100 WBC (Bld) 4 % High 1-3 [facility] Comment on above: Performed By: #### B MAIL CLERK, HS TROP, BMP, CK, DIFF CBC ####[address] Erythrocyte distribution width (RBC) [Ratio] 14.9 % High 12.0-14.8 [facility] Comment on above: Performed By: #### B MAIL CLERK, HS TROP, BMP, CK, DIFF CBC ####[address] Hematocrit (Bld) [Volume fraction] 41.9 % Normal 38.8-50.0 [facility] Comment on above: Performed By: #### B MAIL CLERK, HS TROP, BMP, CK, DIFF CBC ####[address] Hemoglobin (Bld) [Mass/Vol] 14.1 g/dL Normal 13.0-17.0 [facility] Comment on above: Performed By: #### B MAIL CLERK, HS TROP, BMP, CK, DIFF CBC ####[address] Lymphocytes/100 WBC (Bld) 27 % Normal 18-42 [facility] Comment on above: Performed By: #### B MAIL CLERK, HS TROP, BMP, CK, DIFF CBC ####[address] MCH (RBC) [Entitic mass] 32.0 pg Normal 27.5-35.2 [facility] Comment on above: Performed By: #### B MAIL CLERK, HS TROP, BMP, CK, DIFF CBC ####[address] MCV (RBC) [Entitic vol] 95.1 fL Normal 83.5-101 [facility] Comment on above: Performed By: #### B MAIL CLERK, HS TROP, BMP, CK, DIFF CBC ####[address] Mean Corpuscular HGB Conc 33.6 g/dL Normal 32.5-35.6 [facility] Comment on above: Performed By: #### B MAIL CLERK, HS TROP, BMP, CK, DIFF CBC ####[address] Monocytes/100 WBC (Bld) 25.58 % High 0.00-20.00 [facility] Comment on above: Result Comment: For adults in ED, MDW > 20.0 may be associated with a higher risk of sepsis during the first 12 hrs of hospital admission Performed By: #### B MAIL CLERK, HS TROP, BMP, CK, DIFF CBC ####[address] Monocytes/100 WBC (Bld) 7 % Normal 2-11 [facility] Comment on above: Performed By: #### B MAIL CLERK, HS TROP, BMP, CK, DIFF CBC ####[address] Nucleated Red Blood Cell 0 /100{WBC} Normal 0-0 [facility] Comment on above: Performed By: #### B MAIL CLERK, HS TROP, BMP, CK, DIFF CBC ####[address] Platelet Estimate Normal Normal Normal [facility] Comment on above: Performed By: #### B MAIL CLERK, HS TROP, BMP, CK, DIFF CBC ####[address] Platelet mean volume (Bld) [Entitic vol] 8.6 fL Normal 6.6-10.1 [facility] Comment on above: Performed By: #### B MAIL CLERK, HS TROP, BMP, CK, DIFF CBC ####[address] Platelet Morphology Normal Normal Normal [facility] Comment on above: Performed By: #### B MAIL CLERK, HS TROP, BMP, CK, DIFF CBC ####[address] Platelets (Bld) [#/Vol] 240 10*3/uL Normal 150-450 [facility] Comment on above: Performed By: #### B MAIL CLERK, HS TROP, BMP, CK, DIFF CBC ####[address] Plt Comment SEE COMMENT BELOW Normal [facility] Comment on above: Result Comment: NO C LOTS, NO CLUMPS, SHORT DRAW LFM PERFORMED BY: [facility] [address] [place] [address] PATHOLOGIST SOLE CONDITIONER RADHA BARRON M.D. Performed By: #### B MAIL CLERK, HS TROP, BMP, CK, DIFF CBC ####[address] RBC (Bld) [#/Vol] 4.41 10*6/uL Normal 3.90-5.60 [facility] Comment on above: Performed By: #### B MAIL CLERK, HS TROP, BMP, CK, DIFF CBC ####[address] RBC morphology finding Nom (Bld) Normal Normal Normal [facility] Comment on above: Performed By: #### B MAIL CLERK, HS TROP, BMP, CK, DIFF CBC ####[address] Segmented neutrophils/100 WBC (Bld) 62 % Normal 50-70 [facility] Comment on above: Performed By: #### B MAIL CLERK, HS TROP, BMP, CK, DIFF CBC ####[address] WBC (Bld) [#/Vol] 7.6 10*3/uL Normal 4.1-10.5 [facility] Comment on above: Performed By: #### B MAIL CLERK, HS TROP, BMP, CK, DIFF CBC ####[address] WBC (Bld) [#/Vol] 8.4 10*3/uL Normal 4.1-10.5 [facility] Comment on above: Performed By: #### B MAIL CLERK, HS TROP, BMP, CK, DIFF CBC ####[address] ECG 12 lead ECGon 01-09-2024 ECG 12 lead ECG [facility] [place] [address] Electrocardiograph Report Signed Patient: Jeb Riddle MR#: [id number] : 1950 Acct:[id number] Age/Sex: 73 / M ADM Date: 01/09/24 Loc: ER Room: Type: [facility] ER Attending Dr: Ordering Provider: [...] By Adam Patterson DO 1828 Normal [facility] Eosinophils Auto (Bld) [#/Vo l]Ordered By: Naima Boyd on 01-09-2024 Eosinophils (Bld) [#/Vol] N/A [facility] Eosinophils/100 WBC Auto (Bl d)Ordered By: Naima Boyd on 01-09-2024 Eosinophils/100 WBC (Bld) N/A [facility] Eosinophils/100 WBC Manual c nt (Bld)Ordered By: Naima Boyd on 01-09-2024 Eosinophils/100 WBC (Bld) 4 % 1-3 [facility] Erythrocyte distribution wid th Auto (RBC) [Ratio]Ordered By: Naima Boyd on 01-09-2024 Erythrocyte distribution width (RBC) [Ratio] 14.9 % 12.0-14.8 [facility] Fibrin D-dimer [Presence] in Platelet poor plasma by Latex agglutinationOrdered By: Naima Boyd on 01-09-2024 Fibrin D-dimer LA Ql (PPP) 1905 ng/mL 0-243 [facility] Comment on above: The reference range [...] coagulation studies. Please contact the laboratory at [phone] for redraw instructions. Glucose [Mass/volume] in Ser um or PlasmaOrdered By: Naima Boyd on 01-09-2024 Glucose [Mass/Vol] 95 mg/dL 70-100 [facility] Comment on above: ADA recommended refe rence rangeRandom Glucose Reference Range is dependent on time and content of last meal. Glucose of more than 200 mg/dL in a nonstressed, ambulatory subject supports the diagnosis of Diabetes Mellitus. Hematocrit Auto (Bld) [Volum e fraction]Ordered By: Naima Boyd on 01-09-2024 Hematocrit (Bld) [Volume fraction] 41.9 % 38.8-50.0 [facility] Hemoglobin [Mass/volume] in BloodOrdered By: Naima Boyd on 01-09-2024 Hemoglobin (Bld) [Mass/Vol] 14.1 g/dL 13.0-17.0 [facility] INR in Platelet poor plasma by Coagulation assayOrdered By: Naima Boyd on 01-09-2024 INR Coag (PPP) [Relative time] 1.0 {INR} [facility] Comment on above: INR Therapeutic Rang [...] RBC Auto (Bld) [#/Vol] 7.6 10*3/uL 4.1-10.5 [facility] Lymphocytes Auto (Bld) [#/Vo l]Ordered By: Naima Bullimore on 01-09-2024 Lymphocytes (Bld) [#/Vol] N/A [facility] Lymphocytes/100 WBC Auto (Bl d)Ordered By: Naima Godwinimore on 01-09-2024 Lymphocytes/100 WBC (Bld) N/A [facility] Lymphocytes/100 WBC Manual c nt (Bld)Ordered By: Naima Godwinimore on 01-09-2024 Lymphocytes/100 WBC (Bld) 27 % 18-42 [facility] MCH Auto (RBC) [Entitic mass ]Ordered By: Naima Godwinimore on 01-09-2024 MCH (RBC) [Entitic mass] 32.0 pg 27.5-35.2 [facility] MCHC Auto (RBC) [Mass/Vol]Or dered By: Naima Godwinimore on 01-09-2024 MCHC (RBC) [Mass/Vol] 33.6 g/dL 32.5-35.6 [facility] MCV Auto (RBC) [Entitic vol] Ordered By: Naima Boyd on 01-09-2024 MCV (RBC) [Entitic vol] 95.1 fL 83.5-101 [facility] Monocyte distribution width [Entitic volume] in Blood by AutomatedOrdered By: Naima Boyd on 01-09-2024 Monocyte distribution width Auto (Bld) [Entitic vol] 25.58 % 0.00-20.00 [facility] Comment on above: For adults in ED, MD W > 20.0 may be associated with a higher risk of sepsis during the first 12 hrs of hospital admission Monocytes Auto (Bld) [#/Vol] Ordered By: Naima Rutherfordore on 01-09-2024 Monocytes (Bld) [#/Vol] N/A [facility] Monocytes/100 WBC Auto (Bld) Ordered By: Naima Bullimore on 01-09-2024 Monocytes/100 WBC (Bld) N/A [facility] Monocytes/100 WBC Manual cnt (Bld)Ordered By: Naima Bullimore on 01-09-2024 Monocytes/100 WBC (Bld) 7 % 2-11 [facility] Natriuretic peptide B [Mass/ Vol]Ordered By: Naima Bullimore on 01-09-2024 Natriuretic peptide B (Bld) [Mass/Vol] 172.0 pg/mL 5-100 [facility] Neutrophils Auto (Bld) [#/Vo l]Ordered By: Naima Bullimore on 01-09-2024 Neutrophils (Bld) [#/Vol] N/A [facility] Neutrophils/100 WBC Auto (Bl d)Ordered By: Naima Bullimore on 01-09-2024 Neutrophils/100 WBC (Bld) N/A [facility] No Panel InformationOrdered By: Naimadevora Godwinimore on 01-09-2024 Estimated GFR (CKD-EPI) > 60.0 mL/Min [facility] Pharmacy Creatinine Clearance (Chem 64.96 [facility] Platelet Comment See comment below [facility] Comment on above: NO CLOTS, NO CLUMPS, SHORT DRAW LFM Nucleated RBC/100 WBC Manual cnt (Bld) [Ratio]Ordered By: Naima Bullimore on 01-09-2024 Nucleated RBC/100 WBC (Bld) [Ratio] 0 /100{WBC} 0-0 [facility] Nucleated erythrocytes [Pres ence] in Blood by Automated countOrdered By: Naimadevora Godwinimore on 01-09-2024 Nucleated RBC Auto Ql (Bld) N/A [facility] Platelet adequacy [Presence] in Blood by Light microscopyOrdered By: Naimadevora Godwinimore on 01-09-2024 Platelets LM Ql (Bld) Normal Normal [facility] Platelet mean volume Auto (B ld) [Entitic vol]Ordered By: Naima Bullimore on 01-09-2024 Platelet mean volume (Bld) [Entitic vol] 8.6 fL 6.6-10.1 [facility] Platelet morphology finding [Identifier] in BloodOrdered By: Naima Boyd on 01-09-2024 Platelet morphology finding Nom (Bld) Normal Normal [facility] Platelets Auto (Bld) [#/Vol] Ordered By: Naima Bullimore on 01-09-2024 Platelets (Bld) [#/Vol] 240 10*3/uL 150-450 [facility] Potassium [Moles/volume] in Serum or PlasmaOrdered By: Naima Bullimore on 01-09-2024 Potassium [Moles/Vol] 3.9 mmol/L 3.5-5.1 [facility] Prothrombin time (PT)Ordered By: Naima Boyd on 01-09-2024 PT Coag (PPP) [Time] 11.9 s 9.0-12.9 [facility] Comment on above: A hematocrit value g reater than 55% may lead to inaccurate results in coagulation testing. Patients having hematocrit values >55% require a special collection tube for coagulation studies. Please contact the laboratory at [phone] for redraw instructions. RBC Auto (Bld) [#/Vol]Ordere d By: Naima Rutherfordore on 01-09-2024 RBC (Bld) [#/Vol] 4.41 10*6/uL 3.90-5.60 [facility] RBC morphologyOrdered By: Sabine Boyd on 01-09-2024 RBC morphology finding Nom (Bld) Normal Normal [facility] Redraw Potassiumon Potassium [Moles/Vol] 3.9 mmol/L Normal 3.5-5.1 [facility] Comment on above: Result Comment: PERF ORMED BY: [facility] [address] [place] [address] PATHOLOGIST SOLE CONDITIONER RADHA BARRON M.D. Performed By: #### R TONY Marcano ####[facility] [id number] [place] [address] [facility] Segmented neutrophils/100 WB C Manual cnt (Bld)Ordered By: Naima Boyd on 01-09-2024 Segmented neutrophils/100 WBC (Bld) 62 % 50-70 [facility] Serum or plasma anion gap de terminationOrdered By: Naima Boyd on 01-09-2024 Anion gap [Moles/Vol] TNP [facility] Comment on above: Test not performed Sodium [Moles/volume] in Ser um or PlasmaOrdered By: Naima Boyd on 01-09-2024 Sodium [Moles/Vol] 142 mmol/L 136-145 [facility] Troponin I High Sensitivityo n 01-09-2024 Troponin I High Sensitivity 13.1 pg/mL Normal 0.0-20.0 [facility] Comment on above: Result Comment: PERF ORMED BY: [place] [address] PATHOLOGIST SOLE CONDITIONER RADHA BARRON M.D. Performed By: #### H S TROP #### [facility] [address] [place] [address] Troponin I High Sensitivity 12.5 pg/mL Normal 0.0-20.0 [facility] Comment on above: Result Comment: PERF ORMED BY: [facility] [address] [place] [address] PATHOLOGIST SOLE CONDITIONER RADHA BARRON M.D. Performed By: #### B MAIL CLERK, HS TROP, BMP, CK, DIFF CBC ####[facility] Erf[address] Troponin I.cardiac [Mass/vol ume] in Serum or Plasma by Detection limit <= 0.01 ng/Ordered By: Naima Boyd on 01-09-2024 Troponin I.cardiac DL <= 0.01 ng/mL [Mass/Vol] 13.1 pg/mL 0.0-20.0 [facility] Urea nitrogen [Mass/volume] in Serum or PlasmaOrdered By: Naima Boyd on 01-09-2024 Urea nitrogen [Mass/Vol] 20 mg/dL 7- [facility] WBC Auto (Bld) [#/Vol]Ordere d By: Naima Boyd on 01-09-2024 WBC (Bld) [#/Vol] 8.4 10*3/uL 4.1-10.5 [facility] XR chest 2V*on 01-09-2024 XR chest 2V* [facility] Main [address] [address] XRay Report Signed Patient: Jeb Riddle MR#: [id number] : 1950 Acct:[id number] Age/Sex: 73 / M ADM Date: 01/09/24 Loc: ER Room: Type: [facility] ER Attending Dr: Copies to: [...] Jeb Collins M.D.01/09/2024 4:11 PM Dictation Location: [place] [address] Transcribed By: [facility] 01/09/24 1611 Dictated By: Jeb Collins II, MD 01/09/24 1610 Signed By: 01/09/24 1611 Normal [facility] ECG 12 lead ECGon 12-18-2023 ECG 12 lead ECG [facility] Main [address] [address] Electrocardiograph Report Signed Patient: Jeb Riddle MR#: [id number] : 1950 Acct:[id number] Age/Sex: 73 / M ADM Date: 12/18/23 Loc: ER Room: Type: [facility] ER Attending Dr: Ordering Provider: aMrie Garrison APRN Date of Service: 12/18/2301/05/1305 ECG/ECG [...] was found Confirmed by RAMIRO CORTEZ DO ([id number]) on 12/18/2023 4:44:01 PM Referred By: Electronically Signed By:RAMIRO CORTEZ DO Transcribed By: MUS Signed By Ramiro Cortez DO 12/17 1644 Normal [facility] Office Visiton 12-09-2023 Follow-up visit [id number] Jeb Riddle 1950 M Date Provider Department Center 12/09/2023 JESSICA JAMISON Family History Problem Relation Age of Onset Diabetes Mother Coronary artery disease Mother Heart attack Father Diabetes Father Coronary artery disease Father Family Status - Relation Status Age at Mother Father Level of Service:95674 [place] OFFICE/OUTPATIENT ESTABLISHED MOD MDM 30 MIN Reason for Visit and Comments: Follow-up [341641] - 6 months Normal [facility] Office Visiton 06-07-2023 Follow-up visit [id number] Jeb Riddle 1950 M Date Provider Department Center 06/07/2023 SHIV SAAVEDRA Family History Problem Relation Age of Onset Diabetes Mother Coronary artery disease Mother Heart attack Father Diabetes Father Coronary artery disease Father Family Status - Relation Status Age at Mother Father Level of Service:45186 [place] OFFICE/OUTPATIENT NEW HIGH MDM 60-74 MINUTES Normal [facility] Office Visiton 05-27-2023 Follow-up visit [id number] Jeb Riddle 1950 M Date Provider Department Center 05/27/2023 JESSICA JAMISON Family History Problem Relation Age of Onset Diabetes Mother Coronary artery disease Mother Heart attack Father Diabetes Father Coronary artery disease Father Family Status - Relation Status Age at Mother Father Level of Service:31666 ND OFFICE/OUTPATIENT ESTABLISHED MOD MDM 30-39 MIN Reason for Visit and Comments: Follow-up [740784] Coronary Artery Disease [187] Normal [facility] Activated partial thrombopla stin time (aPTT) in platelet poor plasma by coagulation aOrdered By: Ramiro Cortez on 03-03-2023 aPTT Coag (PPP) [Time] 29.7 s 25.1-36.5 [facility] B-Type Natriuretic Peptideon 03-03-2023 Natriuretic peptide B (Bld) [Mass/Vol] 52.0 pg/mL Normal 5-100 [facility] Comment on above: Result Comment: PERF ORMED BY: [facility] [address] [facility] [place] [id number] PATHOLOGIST SOLE CONDITIONER RADHA BARRON M.D. Performed By: #### C BC, CK, PT, PTT, BMP, HS TROP, BNP ####[address] Basic Metabolic Panelon 02-13 Anion gap [Moles/Vol] 10.6 mmol/L Normal 6.0-15.0 [facility] Comment on above: Performed By: #### C BC, CK, PT, PTT, BMP, HS TROP, BNP ####[address] Calcium [Mass/Vol] 8.6 mg/dL Normal 8.6-10.3 [facility] Comment on above: Performed By: #### C BC, CK, PT, PTT, BMP, HS TROP, BNP ####[place] [id number] [facility] Chloride [Moles/Vol] 108 mmol/L High 98-107 [facility] Comment on above: Performed By: #### C BC, CK, PT, PTT, BMP, HS TROP, BNP ####[place] [id number] [facility] CO2 [Moles/Vol] 24.6 mmol/L Normal 21.0-31.0 [facility] Comment on above: Performed By: #### C BC, CK, PT, PTT, BMP, HS TROP, BNP ####[place] [id number] [facility] Creatinine [Mass/Vol] 1.19 mg/dL Normal 0.70-1.30 [facility] Comment on above: Performed By: #### C BC, CK, PT, PTT, BMP, HS TROP, BNP ####[address] Creatinine Clr Calc Pharmacy 55.29 Normal [facility] Comment on above: Result Comment: PERF ORMED BY: [facility] [address] [place] [address] PATHOLOGIST SOLE CONDITIONER RADHA BARRON M.D. Performed By: #### C BC, CK, PT, PTT, BMP, HS TROP, BNP ####[address] GFR/1.73 sq M.predicted MDRD (S/P/Bld) [Vol rate/Area] mL/min/{1.73_m2} Normal [facility] Comment on above: Performed By: #### C BC, CK, PT, PTT, BMP, HS TROP, BNP ####[address] Glucose [Mass/Vol] 93 mg/dL Normal 70-100 [facility] Comment on above: Result Comment: [facility] Glucose Reference Range is dependent on time and content of last meal. Glucose of more than 200 mg/dL in a nonstressed, ambulatory subject supports the diagnosis of Diabetes Mellitus. ADA recommended reference range Performed By: #### C BC, CK, PT, PTT, BMP, HS TROP, BNP ####[address] Potassium [Moles/Vol] 4.2 mmol/L Normal 3.5-5.1 [facility] Comment on above: Performed By: #### C BC, CK, PT, PTT, BMP, HS TROP, BNP ####[address] Sodium [Moles/Vol] 139 mmol/L Normal 136-145 [facility] Comment on above: Performed By: #### C BC, CK, PT, PTT, BMP, HS TROP, BNP ####[address] Urea nitrogen [Mass/Vol] 17 mg/dL Normal 7-25 [facility] Comment on above: Performed By: #### C BC, CK, PT, PTT, BMP, HS TROP, BNP ####[facility] Basophils Auto (Bld) [#/Vol] Ordered By: Ramiro Cortez on 03-03-2023 Basophils (Bld) [#/Vol] 0.0 10*3/uL 0.0-0.2 [facility] Basophils/100 WBC Auto (Bld) Ordered By: Ramiro Cortez on 03-03-2023 Basophils/100 WBC (Bld) 0.4 % . [facility] Calcium [Mass/volume] in Ser um or PlasmaOrdered By: Ramiro Cortez on 03-03-2023 Calcium [Mass/Vol] 8.6 mg/dL 8.6-10.3 [facility] Carbon dioxide, total [Moles /volume] in Serum or PlasmaOrdered By: Ramiro Cortez on 03-03-2023 CO2 [Moles/Vol] 24.6 mmol/L 21.0-31.0 [facility] Chloride [Moles/volume] in S pooja or PlasmaOrdered By: Ramiro Cortez on 03-03-2023 Chloride [Moles/Vol] 108 mmol/L 98-107 [facility] Complete Blood Count Auto Di ffon 03-03-2023 Basophils (Bld) [#/Vol] 0.0 10*3/uL Normal 0.0-0.2 [facility] Comment on above: Result Comment: PERF ORMED BY: [facility] [address] [place] [address] PATHOLOGIST SOLE CONDITIONER RADHA BARRON M.D. Performed By: #### C BC, CK, PT, PTT, BMP, HS TROP, BNP #### [facility] [address] Basophils/100 WBC (Bld) 0.4 % Normal . [facility] Comment on above: Performed By: #### C BC, CK, PT, PTT, BMP, HS TROP, BNP #### [address] Eosinophils (Bld) [#/Vol] 0.2 10*3/uL Normal 0.0-0.45 [facility] Comment on above: Performed By: #### C BC, CK, PT, PTT, BMP, HS TROP, BNP #### [address] Eosinophils/100 WBC (Bld) 2.4 % Normal . [facility] Comment on above: Performed By: #### C BC, CK, PT, PTT, BMP, HS TROP, BNP #### [address] Erythrocyte distribution width (RBC) [Ratio] 13.0 % Normal 12.0-14.8 [facility] Comment on above: Performed By: #### C BC, CK, PT, PTT, BMP, HS TROP, BNP #### [address] Hematocrit (Bld) [Volume fraction] 38.3 % Low 38.8-50.0 [facility] Comment on above: Performed By: #### C BC, CK, PT, PTT, BMP, HS TROP, BNP #### [address] Hemoglobin (Bld) [Mass/Vol] 12.9 g/dL Low 13.0-17.0 [facility] Comment on above: Performed By: #### C BC, CK, PT, PTT, BMP, HS TROP, BNP #### [address] Lymphocytes (Bld) [#/Vol] 2.6 10*3/uL Normal 1.00-4.8 [facility] Comment on above: Performed By: #### C BC, CK, PT, PTT, BMP, HS TROP, BNP #### [address] Lymphocytes/100 WBC (Bld) 28.3 % Normal . [facility] Comment on above: Performed By: #### C BC, CK, PT, PTT, BMP, HS TROP, BNP #### [address] MCH (RBC) [Entitic mass] 30.8 pg Normal 27.5-35.2 [facility] Comment on above: Performed By: #### C BC, CK, PT, PTT, BMP, HS TROP, BNP #### [address] MCV (RBC) [Entitic vol] 91.9 fL Normal 83.5-101 [facility] Comment on above: Performed By: #### C BC, CK, PT, PTT, BMP, HS TROP, BNP #### [address] Mean Corpuscular HGB Conc 33.6 g/dL Normal 32.5-35.6 [facility] Comment on above: Performed By: #### C BC, CK, PT, PTT, BMP, HS TROP, BNP #### [address] Monocytes (Bld) [#/Vol] 0.6 10*3/uL Normal 0.0-0.8 [facility] Comment on above: Performed By: #### C BC, CK, PT, PTT, BMP, HS TROP, BNP #### [address] Monocytes/100 WBC (Bld) 24.67 % High 0.00-20.00 [facility] Comment on above: Result Comment: For adults in ED, MDW > 20.0 may be associated with a higher risk of sepsis during the first 12 hrs of hospital admission Performed By: #### C BC, CK, PT, PTT, BMP, HS TROP, BNP #### [address] Monocytes/100 WBC (Bld) 6.5 % Normal . [facility] Comment on above: Performed By: #### C BC, CK, PT, PTT, BMP, HS TROP, BNP #### [address] Neutrophils (Bld) [#/Vol] 5.7 10*3/uL Normal 1.8-7.7 [facility] Comment on above: Performed By: #### C BC, CK, PT, PTT, BMP, HS TROP, BNP #### [address] Neutrophils/100 WBC (Bld) 62.4 % Normal . [facility] Comment on above: Performed By: #### C BC, CK, PT, PTT, BMP, HS TROP, BNP #### [address] NRBC% 0.1 /100{WBC} Normal 0-0.5 [facility] Comment on above: Performed By: #### C BC, CK, PT, PTT, BMP, HS TROP, BNP #### [address] Platelet mean volume (Bld) [Entitic vol] 8.2 fL Normal 6.6-10.1 [facility] Comment on above: Performed By: #### C BC, CK, PT, PTT, BMP, HS TROP, BNP #### [address] Platelets (Bld) [#/Vol] 234 10*3/uL Normal 150-450 [facility] Comment on above: Performed By: #### C BC, CK, PT, PTT, BMP, HS TROP, BNP #### [address] RBC (Bld) [#/Vol] 4.17 10*6/uL Normal 3.90-5.60 [facility] Comment on above: Performed By: #### C BC, CK, PT, PTT, BMP, HS TROP, BNP #### [address] WBC (Bld) [#/Vol] 9.2 10*3/uL Normal 4.1-10.5 [facility] Comment on above: Performed By: #### C BC, CK, PT, PTT, BMP, HS TROP, BNP #### [address] [place] [address] [facility] Creatine Kinaseon 03-03-2023 CK [Catalytic activity/Vol] 125 U/L Normal [facility] Comment on above: Performed By: #### C BC, CK, PT, PTT, BMP, HS TROP, BNP ####[facility] [id number] [place] [id number] [facility] Creatine kinase [Enzymatic a ctivity/volume] in Serum or PlasmaOrdered By: Ramiro Cortez on 03-03-2023 CK [Catalytic activity/Vol] 125 U/L [facility] Creatinine [Mass/volume] in Serum or PlasmaOrdered By: Ramiro Cortez on 03-03-2023 Creatinine [Mass/Vol] 1.19 mg/dL 0.70-1.30 [facility] ECG 12 lead ECGon 03-03-2023 ECG 12 lead ECG [facility] [address] [place] [place] [address] Electrocardiograph Report Signed Patient: Jeb Riddle MR#: [id number] : 1950 Acct:[id number] Age/Sex: 72 / M ADM Date: 03/03/23 Loc: ER Room: Type: [facility] ER Attending Dr: Ordering Provider: Ramiro [...] ECGs available Confirmed by RAMIRO CORTEZ DO ([id number]) on 03/03/2023 8:14:27 PM Referred By: Electronically Signed By:RAMIRO CORTEZ DO Transcribed By: MUS Signed By Ramiro Cortez DO 03/03 Normal [facility] Eosinophils Auto (Bld) [#/Vo l]Ordered By: Ramiro Cortez on 03-03-2023 Eosinophils (Bld) [#/Vol] 0.2 10*3/uL 0.0-0.45 [facility] Eosinophils/100 WBC Auto (Bl d)Ordered By: Ramiro Cortez on 03-03-2023 Eosinophils/100 WBC (Bld) 2.4 % . [facility] Erythrocyte distribution wid th Auto (RBC) [Ratio]Ordered By: Ramiro Cortez on 03-03-2023 Erythrocyte distribution width (RBC) [Ratio] 13.0 % 12.0-14.8 [facility] Glucose [Mass/volume] in Ser um or PlasmaOrdered By: Ramiro Cortez on 03-03-2023 Glucose [Mass/Vol] 93 mg/dL 70-100 [facility] Comment on above: ADA recommended refe rence rangeRandom Glucose Reference Range is dependent on time and content of last meal. Glucose of more than 200 mg/dL in a nonstressed, ambulatory subject supports the diagnosis of Diabetes Mellitus. Hematocrit Auto (Bld) [Volum e fraction]Ordered By: Ramiro Cortez on 03-03-2023 Hematocrit (Bld) [Volume fraction] 38.3 % 38.8-50.0 [facility] Hemoglobin [Mass/volume] in BloodOrdered By: Ramiro Cortez on 03-03-2023 Hemoglobin (Bld) [Mass/Vol] 12.9 g/dL 13.0-17.0 [facility] Laboratory - CoagulationOrde red By: Ramiro Cortez on 03-03-2023 PT Coag (PPP) [Time] 12.3 s 9.0-12.9 [facility] Leukocytes [#/volume] correc ava for nucleated erythrocytes in Blood by Automated counOrdered By: Ramiro Cortez on 03-03-2023 WBC corrected for nucl RBC Auto (Bld) [#/Vol] 9.2 10*3/uL 4.1-10.5 [facility] Lymphocytes Auto (Bld) [#/Vo l]Ordered By: Ramiro Cortez on 03-03-2023 Lymphocytes (Bld) [#/Vol] 2.6 10*3/uL 1.00-4.8 [facility] Lymphocytes/100 WBC Auto (Bl d)Ordered By: Ramiro Cortez on 03-03-2023 Lymphocytes/100 WBC (Bld) 28.3 % . [facility] MCH Auto (RBC) [Entitic mass ]Ordered By: Ramiro Cortez on 03-03-2023 MCH (RBC) [Entitic mass] 30.8 pg 27.5-35.2 [facility] MCHC Auto (RBC) [Mass/Vol]Or dered By: Ramiro Cortez on 03-03-2023 MCHC (RBC) [Mass/Vol] 33.6 g/dL 32.5-35.6 [facility] MCV Auto (RBC) [Entitic vol] Ordered By: Ramiro Cortez on 03-03-2023 MCV (RBC) [Entitic vol] 91.9 fL 83.5-101 [facility] Monocyte distribution width [Entitic volume] in Blood by AutomatedOrdered By: Ramiro Cortez on 03-03-2023 Monocyte distribution width Auto (Bld) [Entitic vol] 24.67 % 0.00-20.00 [facility] Comment on above: For adults in ED, MD W > 20.0 may be associated with a higher risk of sepsis during the first 12 hrs of hospital admission Monocytes Auto (Bld) [#/Vol] Ordered By: Ramiro Cortez on 03-03-2023 Monocytes (Bld) [#/Vol] 0.6 10*3/uL 0.0-0.8 [facility] Monocytes/100 WBC Auto (Bld) Ordered By: Ramiro Cortez on 03-03-2023 Monocytes/100 WBC (Bld) 6.5 % . [facility] Natriuretic peptide B [Mass/ Vol]Ordered By: Ramiro Cortez on 03-03-2023 Natriuretic peptide B (Bld) [Mass/Vol] 52.0 pg/mL 5-100 [facility] Neutrophils Auto (Bld) [#/Vo l]Ordered By: Ramiro Cortez on 03-03-2023 Neutrophils (Bld) [#/Vol] 5.7 10*3/uL 1.8-7.7 [facility] Neutrophils/100 WBC Auto (Bl d)Ordered By: Ramiro Cortez on 03-03-2023 Neutrophils/100 WBC (Bld) 62.4 % . [facility] No Panel InformationOrdered By: Ramiro Cortez on 03-03-2023 Estimated GFR (CKD-EPI) > 60.0 mL/Min [facility] Creatinine Clearance (Chem 55.29 [facility] Nucleated erythrocytes [Pres ence] in Blood by Automated countOrdered By: Ramiro Cortez on 03-03-2023 Nucleated RBC Auto Ql (Bld) 0.1 /100{WBC} 0-0.5 [facility] Partial Thromboplastin Timeo n 03-03-2023 aPTT Coag (Bld) [Time] 29.7 s Normal 25.1-36.5 [facility] Comment on above: Result Comment: PERF ORMED BY: [facility] [address] [place] [address] PATHOLOGIST SOLE CONDITIONER RADHA BARRON M.D. Performed By: #### C BC, CK, PT, PTT, BMP, HS TROP, BNP #### [facility] [address] Platelet mean volume Auto (B ld) [Entitic vol]Ordered By: Ramiro Cortez on 03-03-2023 Platelet mean volume (Bld) [Entitic vol] 8.2 fL 6.6-10.1 [facility] Platelet poor plasma interna tional normalized ratio (INR) by coagulation assay (relatOrdered By: Ramiro Cortez on 03-03-2023 INR Coag (PPP) [Relative time] 1.1 {INR} [facility] Comment on above: INR Therapeutic Rang [...] 03-03-2023 Platelets (Bld) [#/Vol] 234 10*3/uL 150-450 [facility] Potassium [Moles/volume] in Serum or PlasmaOrdered By: Ramiro Cortez on 03-03-2023 Potassium [Moles/Vol] 4.2 mmol/L 3.5-5.1 [facility] Prothrombin Time INRon 03-03 INR Coag (PPP) [Relative time] 1.1 {INR} Normal [facility] Comment on above: Result [...] PT, PTT, BMP, HS TROP, BNP #### [facility] [address] PT Coag (PPP) [Time] 12.3 s Normal 9.0-12.9 [facility] Comment on above: Performed By: #### C BC, CK, PT, PTT, BMP, HS TROP, BNP #### [facility] [address] RBC Auto (Bld) [#/Vol]Ordere d By: Ramiro Cortez on 03-03-2023 RBC (Bld) [#/Vol] 4.17 10*6/uL 3.90-5.60 [facility] Serum or plasma anion gap de terminationOrdered By: Ramiro Cortez on 03-03-2023 Anion gap [Moles/Vol] 10.6 mmol/L 6.0-15.0 [facility] Sodium [Moles/volume] in Ser um or PlasmaOrdered By: Ramiro Cortez on 03-03-2023 Sodium [Moles/Vol] 139 mmol/L 136-145 [facility] Troponin I High Sensitivityo n 03-03-2023 Troponin I High Sensitivity 7.6 pg/mL Normal 0.0-20.0 [facility] Comment on above: Result Comment: PERF ORMED BY: [place] [address] PATHOLOGIST SOLE CONDITIONER RADHA BARRON M.D. Performed By: #### C BC, CK, PT, PTT, BMP, HS TROP, BNP ####[facility] [place] [id number] [facility] Troponin I.cardiac [Mass/vol ume] in Serum or Plasma by Detection limit <= 0.01 ng/Ordered By: Ramiro Cortez on 03-03-2023 Troponin I.cardiac DL <= 0.01 ng/mL [Mass/Vol] 7.6 pg/mL 0.0-20.0 [facility] Urea nitrogen [Mass/volume] in Serum or PlasmaOrdered By: Ramiro Cortez on 03-03-2023 Urea nitrogen [Mass/Vol] 17 mg/dL 03-08 [facility] WBC Auto (Bld) [#/Vol]Ordere d By: Ramiro Cortez on 03-03-2023 WBC (Bld) [#/Vol] 9.2 10*3/uL 4.1-10.5 [facility] XR chest 2V*on 03-03-2023 XR chest 2V* [facility] [address] [place] [address] XRay Report Signed Patient: Jeb Riddle MR#: [id number] : 1950 Acct:[id number] Age/Sex: 72 / M ADM Date: 03/03/23 Loc: ER Room: Type: [facility] ER Attending Dr: Copies to: [...] Ivonne Zavala M.D.03/03/2023 12:46 PM Dictation Location: [place] [address] Transcribed By: KAROLINA 03/03/23 1246 Dictated By: Ivonne Zavala MD 03/03/23 1245 Signed By: 03/03/23 1246 Normal [facility] CBC AUTO DIFFon 01-11-2023 BASO # 0.0 103/ul Normal 0.0-0.1 [facility] Comment on above: Performed By: #### C BC #### [facility] [address] [place] [address] [address] Andrea Garcia Basophils/100 WBC (Bld) 0.0 % Critically low 0.2-2.0 [facility] Comment on above: Performed By: #### C BC #### [facility] [address] [place] [address] [address] Andrea Garcia EO # 0.0 103/ul Normal 0.0-0.7 [facility] Comment on above: Performed By: #### C BC #### [facility] [address] [place] [address] Dr. Andrea Garcia Eosinophils/100 WBC (Bld) 0.0 % Critically low 0.9-7.0 [facility] Comment on above: Performed By: #### C BC #### [facility] [address] [place] [address] Dr. Andrea Garcia Erythrocyte distribution width (RBC) [Ratio] 12.8 % Normal 11.0-15.0 [facility] Comment on above: Performed By: #### C BC #### [facility] [address] [place] [address] Dr. Andrea Garcia Hematocrit (Bld) [Volume fraction] 36.2 % Critically low 42.0-54.0 [facility] Comment on above: Performed By: #### C BC #### [facility] [address] [place] [address] Dr. Andrea Garcia Hemoglobin (Bld) [Mass/Vol] 12.8 g/dL Critically low 14.0-18.0 [facility] Comment on above: Performed By: #### C BC #### [facility] [address] [place] [address] Dr. Andrea Garcia IG # 0.03 10e3/ul Normal 0.00-0.03 [facility] Comment on above: Performed By: #### C BC #### [facility] [address] [place] [address] Dr. Andrea Garcia IG % 0.4 % Normal 0.0-0.5 [facility] Comment on above: Performed By: #### C BC #### [facility] [address] [place] [address] Dr. Andrea Garcia LYMPH # 1.1 103/ul Critically low 1.2-3.8 [facility] Comment on above: Performed By: #### C BC #### [facility] [address] [place] [address] Dr. Andrea Garcia Lymphocytes/100 WBC (Bld) 15.3 % Critically low 20.5-60.0 [facility] Comment on above: Performed By: #### C BC #### [facility] [address] [place] [address] Dr. Andrea Garcia MANUAL DIFF REQ NO Normal [facility] Comment on above: Performed By: #### C BC #### [facility] [address] [place] [address] Dr. Andrea Garcia MCH (RBC) [Entitic mass] 31.3 pg Normal 25.9-34.0 [facility] Comment on above: Performed By: #### C BC #### [facility] [address] [place] [address] Dr. Andrea Garcia MCHC (RBC) [Mass/Vol] 35.4 g/dL Critically high 29.9-35.2 [facility] Comment on above: Performed By: #### C BC #### [facility] [address] [place] [address] Dr. Andrea Garcia MCV (RBC) [Entitic vol] 88.5 fL Normal 80.0-94.0 [facility] Comment on above: Performed By: #### C BC #### [facility] [address] [place] [address] Dr. Andrea Garcia MONO # 0.1 103/ul Critically low 0.3-0.8 [facility] Comment on above: Performed By: #### C BC #### [facility] [address] [place] [address] Dr. Andrea Garcia Monocytes/100 WBC (Bld) 0.7 % Critically low 1.7-12.0 [facility] Comment on above: Performed By: #### C BC #### [facility] [address] [place] [address] Dr. Andrea Garcia NEUT # 6.0 103/ul Normal 1.4-6.5 [facility] Comment on above: Performed By: #### C BC #### [facility] [address] [place] [address] Dr. Andrea Garcia Neutrophils/100 WBC (Bld) 83.6 % Critically high 43.0-75.0 [facility] Comment on above: Performed By: #### C BC #### [facility] [address] [place] [address] Dr. Andrea Garcia Platelet mean volume (Bld) [Entitic vol] 10.1 fL Normal 9.5-13.5 [facility] Comment on above: Performed By: #### C BC #### [facility] [address] [place] [address] Dr. Andrea Garcia PLT 216 103/ul Normal 150-450 [facility] Comment on above: Performed By: #### C BC #### [facility] [address] [place] [address] Dr. Andrea Garcia RBC 4.09 106/ul Critically low 4.70-6.10 [facility] Comment on above: Performed By: #### C BC #### [facility] [address] [place] [address] Dr. Andrea Garcia WBC 7.2 103/ul Normal 4.0-11.0 [facility] Comment on above: Performed By: #### C BC #### [facility] [address] [place] [address] Dr. Andrea Garcia PROF 14(COMP METB)on 023 Albumin [Mass/Vol] 2.8 g/dL Critically low 3.4-5.0 [facility] Comment on above: Performed By: #### C MP #### [facility] [address] [place] [address] Dr. Andrea Garcia Albumin/Globulin [Mass ratio] 0.8 {ratio} Normal [facility] Comment on above: Performed By: #### C MP #### [facility] [address] [place] [address] Dr. Andrea Garcia ALP [Catalytic activity/Vol] 64 U/L Normal 46-116 [facility] Comment on above: Performed By: #### C MP #### [facility] [address] [place] [address] Dr. Andrea Garcia ALT [Catalytic activity/Vol] 27 U/L Normal 16-63 [facility] Comment on above: Performed By: #### C MP #### [facility] [address] [place] [address] Dr. Andrea Garcia Anion gap [Moles/Vol] 12.9 mmol/L Normal Th [facility] Comment on above: Performed By: #### C MP #### [facility] [address] [place] [address] Dr. Andrea Garcia AST [Catalytic activity/Vol] 16 U/L Normal 15-37 [facility] Comment on above: Performed By: #### C MP #### [facility] [address] [place] [address] Dr. Andrea Garcia Bilirubin [Mass/Vol] 0.4 mg/dL Normal 0.2-1.0 [facility] Comment on above: Performed By: #### C MP #### [facility] [address] [place] [address] Dr. Andrea Garcia Calcium [Mass/Vol] 8.2 mg/dL Critically low 8.5-10.1 [facility] Comment on above: Performed By: #### C MP #### [facility] [address] [place] [address] Dr. Andrea Garcia Chloride [Moles/Vol] 107 mmol/L Normal 98-107 [facility] Comment on above: Performed By: #### C MP #### [facility] [address] [place] [address] Dr. Andrea Garcia CO2 [Moles/Vol] 24.2 mmol/L Normal 21.0-32.0 [facility] Comment on above: Performed By: #### C MP #### [facility] [address] [place] [address] Dr. Andrea Garcia Creatinine [Mass/Vol] 1.07 mg/dL Normal 0.70-1.30 [facility] Comment on above: Performed By: #### C MP #### [facility] [address] [address] [address] Andrea Garcia EGFR-AF MOSOTHO >60 Normal >=60 [facility] Comment on above: Performed By: #### C MP #### [facility] [address] [place] [address] Dr. Andrea Garcia EGFR-NON AF MOSOTHO >60 Normal >=60 [facility] Comment on above: Performed By: #### C MP #### [facility] [address] [place] [address] Dr. Andrea Garcia Globulin (S) [Mass/Vol] 3.5 g/dL Normal [facility] Comment on above: Performed By: #### C MP #### [facility] [address] [place] [address] Dr. Andrea Garcia Glucose [Mass/Vol] 164 mg/dL Critically high 74-106 [facility] Comment on above: Performed By: #### C MP #### [facility] [address] [place] [address] Dr. Andrea Garcia Potassium [Moles/Vol] 4.1 mmol/L Normal 3.5-5.1 [facility] Comment on above: Performed By: #### C MP #### [facility] [address] [place] [address] Dr. Andrea Garica Protein [Mass/Vol] 6.3 g/dL Critically low 6.4-8.2 [facility] Comment on above: Performed By: #### C MP #### [facility] [address] [place] [address] Dr. Andrea Garcia Sodium [Moles/Vol] 140 mmol/L Normal 136-145 [facility] Comment on above: Performed By: #### C MP #### [facility] [address] [place], [place] [address] Dr. Andrea Garcia Urea nitrogen [Mass/Vol] 16.0 mg/dL Normal 7.0-18.0 [facility] Comment on above: Performed By: #### C MP #### [facility] [address] [address] [address] Andrea Garcia Urea nitrogen/Creatinine [Mass ratio] 15.0 mg/mg Normal [facility] Comment on above: Performed By: #### C MP #### [facility] [address] [address] [address] Andrea Garcia XR KUB 1 VIEWon [...] ROBERT DAVENPORT Date: 2023-01-11 06:56 Normal [facility] AMYLASEon 01-10-2023 Amylase [Catalytic activity/Vol] 56 U/L Normal 25-115 [facility] Comment on above: Performed By: #### C MADM, CMP, DAMIEN, LIPA ####[facility] [address] [place], [place] [address]UaDr. Andrea Garcia CARDIAC JEB 3-6on 3 CK [Catalytic activity/Vol] 92 U/L Normal 39-308 [facility] Comment on above: Performed By: #### C MREP #### [facility] [address] [address] [address] Andrea Garcia CK.MB [Mass/Vol] 1.66 ng/mL Normal <=3.60 [facility] Comment on above: Performed By: #### C MREP #### [facility] [address] [address] [address] Andrea Garcia HSTROP 12.8 pg/mL Normal 4.0-76.1 [facility] Comment on above: Result Comment: CUT- OFF POINTS HAVE BEEN ESTABLISHED BASED ON THE FOURTH UNIVERSAL DEFINITIONS OF MYOCARDIAL INFARCTION. THE UPPER REFERENCE LIMIT (URL) OF TROPONIN, DEFINED THE 99TH PERCENTILE OF cTnI DISTRIBUTION IN A REFERENCE POPULATION, HAS BEEN CONFIRMED THE DECISION THRESHOLD FOR PA DIAGNOSIS. Performed By: #### C MREP #### [facility] [address] [address] [address] Andrea Garcia CK [Catalytic activity/Vol] 72 U/L Normal 39-308 [facility] Comment on above: Performed By: #### C MREP #### [facility] [address] [address] [address] Andrea RUBALCAVA.MB [Mass/Vol] 1.89 ng/mL Normal <=3.60 [facility] Comment on above: Performed By: #### C MREP #### [facility] [address] [address] [address] Andrea Garcia HSTROP 13.5 pg/mL Normal 4.0-76.1 [facility] Comment on above: Result Comment: CUT- OFF POINTS HAVE BEEN ESTABLISHED BASED ON THE FOURTH UNIVERSAL DEFINITIONS OF MYOCARDIAL INFARCTION. THE UPPER REFERENCE LIMIT (URL) OF TROPONIN, DEFINED THE 99TH PERCENTILE OF cTnI DISTRIBUTION IN A REFERENCE POPULATION, HAS BEEN CONFIRMED THE DECISION THRESHOLD FOR PA DIAGNOSIS. Performed By: #### C MREP #### [facility] [address] [address] [address] Andrea Garcia CARDIAC JEB ADMITon 023 CK [Catalytic activity/Vol] 85 U/L Normal 39-308 [facility] Comment on above: Performed By: #### C MADM, CMP, DAMIEN, LIPA ####[facility] [address] [id number]. Andrea Garcia CK.MB [Mass/Vol] 1.80 ng/mL Normal <=3.60 [facility] Comment on above: Performed By: #### C MADM, CMP, DAMIEN, LIPA ####[facility] [address] [id number]. Andrea Garcia HSTROP 15.7 pg/mL Normal 4.0-76.1 [facility] Comment on above: Result Comment: CUT- OFF POINTS HAVE BEEN ESTABLISHED BASED ON THE FOURTH UNIVERSAL DEFINITIONS OF MYOCARDIAL INFARCTION. THE UPPER REFERENCE LIMIT (URL) OF TROPONIN, DEFINED THE 99TH PERCENTILE OF cTnI DISTRIBUTION IN A REFERENCE POPULATION, HAS BEEN CONFIRMED THE DECISION THRESHOLD FOR PA DIAGNOSIS. Performed By: #### C MADM, CMP, DAMIEN, LIPA ####[facility] [address] [address]Dr. Andrea Garcia MIQUEL 61 ng/mL Normal 16-96 [facility] Comment on above: Performed By: #### C MADM, CMP, DAMIEN, LIPA ####[facility] [address] [address]Dr. Andrea Garcia CBC AUTO DIFFon 01-10-2023 BASO # 0.0 103/ul Normal 0.0-0.1 [facility] Comment on above: Performed By: #### C BC ####[facility] [address] [place], [place] [address]Dr. Andrea Garcia Basophils/100 WBC (Bld) 0.5 % Normal 0.2-2.0 [facility] Comment on above: Performed By: #### C BC ####[facility] [address] [place], [place] [address]Dr. Andrea Garcia EO # 0.4 103/ul Normal 0.0-0.7 [facility] Comment on above: Performed By: #### C BC ####[facility] [address] [place], [place] [address]Dr. Andrea Garcia Eosinophils/100 WBC (Bld) 5.9 % Normal 0.9-7.0 [facility] Comment on above: Performed By: #### C BC ####[facility] [address] [place], [place] [address]Dr. Andrea Garcia Erythrocyte distribution width (RBC) [Ratio] 13.0 % Normal 11.0-15.0 [facility] Comment on above: Performed By: #### C BC ####[facility] [address] [place], [place] [address]Dr. Andrea Garcia Hematocrit (Bld) [Volume fraction] 40.0 % Critically low 42.0-54.0 [facility] Comment on above: Performed By: #### C BC ####[facility] [address] [address]DrWilder Andrea Garcia Hemoglobin (Bld) [Mass/Vol] 13.4 g/dL Critically low 14.0-18.0 [facility] Comment on above: Performed By: #### C BC ####[facility] [address] [place], [place] [address]DrWilder Kaylendahlia Garcia IG # 0.01 10e3/ul Normal 0.00-0.03 [facility] Comment on above: Performed By: #### C BC ####[facility] [address] [place], [place] [address]DrWilder Kaylendahlia Garcia IG % 0.2 % Normal 0.0-0.5 [facility] Comment on above: Performed By: #### C BC ####[facility] [address] [place], [place] [address]DrWilder Kaylendahlia Garcia LYMPH # 2.2 103/ul Normal 1.2-3.8 [facility] Comment on above: Performed By: #### C BC ####[facility] [address] [place], [place] [address]DrWilder Kaylendahlia Garcia Lymphocytes/100 WBC (Bld) 33.2 % Normal 20.5-60.0 [facility] Comment on above: Performed By: #### C BC ####[facility] [address] [place], [place] [address]DrWilder Kaylendahlia Garcia MANUAL DIFF REQ NO Normal [facility] Comment on above: Performed By: #### C BC ####[facility] [address] [place], [place] [address]DrWilder Kaylendahlia Garcia MCH (RBC) [Entitic mass] 30.5 pg Normal 25.9-34.0 [facility] Comment on above: Performed By: #### C BC ####[facility] [address] [place], [place] [address]DrWilder Kaylendahlia Garcia MCHC (RBC) [Mass/Vol] 33.5 g/dL Normal 29.9-35.2 [facility] Comment on above: Performed By: #### C BC ####[facility] [address] [address]DrWilder Andrea Jose MCV (RBC) [Entitic vol] 90.9 fL Normal 80.0-94.0 [facility] Comment on above: Performed By: #### C BC ####[facility] [address] [place], [place] [address]DrWilder Garcia MONO # 0.4 103/ul Normal 0.3-0.8 [facility] Comment on above: Performed By: #### C BC ####[facility] [address] [place], [place] [address]DrWilder Garcia Monocytes/100 WBC (Bld) 6.0 % Normal 1.7-12.0 [facility] Comment on above: Performed By: #### C BC ####[facility] [address] [place], [place] [address]DrWilder Garcia NEUT # 3.5 103/ul Normal 1.4-6.5 [facility] Comment on above: Performed By: #### C BC ####[facility] [address] [place], [place] [address]DrWilder Garcia Neutrophils/100 WBC (Bld) 54.2 % Normal 43.0-75.0 [facility] Comment on above: Performed By: #### C BC ####[facility] [address] [place], [place] [address]DrWilder Garcia Platelet mean volume (Bld) [Entitic vol] 9.7 fL Normal 9.5-13.5 [facility] Comment on above: Performed By: #### C BC ####[facility] [address] [place], [place] [address]DrWilder Garcia PLT 225 103/ul Normal 150-450 [facility] Comment on above: Performed By: #### C BC ####[facility] [address] [place], [place] [address]DrWilder Garcia RBC 4.40 106/ul Critically low 4.70-6.10 [facility] Comment on above: Performed By: #### C BC ####[facility] [address] [place], [place] [address]WnWilder Garcia WBC 6.5 103/ul Normal 4.0-11.0 [facility] Comment on above: Performed By: #### C BC ####[facility] [address] [place], [place] [address]. [address] ABD/PELV W CONon 01-11-20 [...] ADITYA OATES Date: 2023-01-10 07:41 Normal [facility] CULTURE BLOODon 01-10-2023 Microscopic examination of blood, culture Culture Observations: NO GROWTH AT 36-48 HOURS. FINAL TO FOLLOW. Normal [facility] Comment on above: Performed By: #### B LDCX2 ####[facility] [address] [address]Dr. Andrea Garcia Microscopic examination of blood, culture Culture Observations: NO GROWTH AT 36-48 HOURS. FINAL TO FOLLOW. Normal [facility] Comment on above: Performed By: #### B LDCX1 ####[facility] [address] [address]Dr. Andrea Garcia ER URINE PROFILEon 3 Bilirubin Ql (U) Negative Normal NEGATIVE [facility] Comment on above: Performed By: #### U MICRO, ERUR #### [facility] [address] [address] [address] Andrea Garcia Clarity (U) CLEAR Normal CLEAR [facility] Comment on above: Performed By: #### U MICRO, ERUR #### [facility] [address] [place] [address] Dr. Andrea Garcia Color (U) LT. YELLOW Normal YELLOW [facility] Comment on above: Performed By: #### U MICRO, ERUR #### [facility] [address] [place] [address] Dr. Andrea Garcia ERUAHD A micrscopic examina tion will be performed if indicated. Normal [facility] Comment on above: Performed By: #### U MICRO, ERUR #### [facility] [address] [place] [address] Dr. Andrea Garcia Glucose Ql (U) Negative Normal NEGATIVE [facility] Comment on above: Performed By: #### U MICRO, ERUR #### [facility] [address] [address] [address] Andrea Garcia Hemoglobin Ql (U) TRACE-INTACT Abnormal NEGATIVE [facility] Comment on above: Performed By: #### U MICRO, ERUR #### [facility] [address] [address] [address] Andrea Garcia Ketones Ql (U) Negative Normal NEGATIVE [facility] Comment on above: Performed By: #### U MICRO, ERUR #### [facility] [address] [place] [address] Dr. Andrea Garcia LEUKOCYTES Negative Normal NEGATIVE [facility] Comment on above: Performed By: #### U MICRO, ERUR #### [facility] [address] [place] [address] Dr. Andrea Garcia Nitrite Ql (U) Negative Normal NEGATIVE [facility] Comment on above: Performed By: #### U MICRO, ERUR #### [facility] [address] [place] [address] Dr. Andrea Garcia pH (U) 5.5 [pH] Normal 5-9 [facility] Comment on above: Performed By: #### U MICRO, ERUR #### [facility] [address] [place] [address] Dr. Andrea Garcia SPEC GRAVITY 1.015 Normal 1.005-<=1. 025 [facility] Comment on above: Performed By: #### U MICRO, ERUR #### [facility] [address] [place] [address] Dr. Andrea Garcia UA PROTEIN Negative Normal NEGATIVE/ TRACE [facility] Comment on above: Performed By: #### U MICRO, ERUR #### [facility] [address] [place] [address] Dr. nAdrea Garcia UR MICRO IND INDICATED Normal [facility] Comment on above: Performed By: #### U MICRO, ERUR #### [facility] [address] [place] [address] Dr. Andrea Garica Urobilinogen Qn (U) 0.2 {Temo'U}/dL Normal 0.2 - 1. 0 [facility] Comment on above: Performed By: #### U MICRO, ERUR #### [facility] [address] [place] [address] Dr. Andrea Garcia LACTATE/LACTIC ACIDon 2022 Lactate [Moles/Vol] 0.8 mmol/L Normal 0.4-2.0 [facility] Comment on above: Performed By: #### L ACT #### [facility] [address] [place] [address] Dr. Andrea Garcia Lactate [Moles/Vol] 0.9 mmol/L Normal 0.4-2.0 [facility] Comment on above: Performed By: #### L ACT #### [facility] [address] [address] [address] Andrea Garcia LIPASEon 01-10-2023 Lipase [Catalytic activity/Vol] 71.0 U/L Critically low 73.0-393.0 [facility] Comment on above: Performed By: #### C MADM, CMP, DAMIEN, LIPA ####[facility] [address] [address]DrWilder Garcia PROF 14(COMP METB)on 023 Albumin [Mass/Vol] 3.2 g/dL Critically low 3.4-5.0 [facility] Comment on above: Performed By: #### C MADM, CMP, DAMIEN, LIPA ####[facility] [address] [address]DrWilder Garcia Albumin/Globulin [Mass ratio] 0.9 {ratio} Normal [facility] Comment on above: Performed By: #### C MADM, CMP, DAMIEN, LIPA ####[facility] [address] [address]Dr. Andrea Garcia ALP [Catalytic activity/Vol] 68 U/L Normal 46-116 [facility] Comment on above: Performed By: #### C MADM, CMP, DAMIEN, LIPA ####[facility] [address] [address]Dr. Andrea Garcia ALT [Catalytic activity/Vol] 30 U/L Normal 16-63 [facility] Comment on above: Performed By: #### C MADM, CMP, DAMIEN, LIPA ####[facility] [address] [address]Dr. Andrea Garcia Anion gap [Moles/Vol] 14.2 mmol/L Normal [facility] Comment on above: Performed By: #### C MADM, CMP, DAMIEN, LIPA ####[facility] [address] [address]DrWilder Garcia AST [Catalytic activity/Vol] 18 U/L Normal 15-37 [facility] Comment on above: Performed By: #### C MADM, CMP, DAMIEN, LIPA ####[facility] [address] [address]Dr. Andrea Garcia Bilirubin [Mass/Vol] 0.5 mg/dL Normal 0.2-1.0 [facility] Comment on above: Performed By: #### C MADM, CMP, DAMIEN, LIPA ####[facility] [address] [address]Dr. Andrea Garcia Calcium [Mass/Vol] 8.5 mg/dL Normal 8.5-10.1 [facility] Comment on above: Performed By: #### C MADM, CMP, DAMIEN, LIPA ####[facility] [address] [address]Dr. Andrea Garcia Chloride [Moles/Vol] 108 mmol/L Critically high 98-107 [facility] Comment on above: Performed By: #### C MADM, CMP, DAMIEN, LIPA ####[facility] [address] [place], [place] [address]Dr. Andrea Garcia CO2 [Moles/Vol] 22.1 mmol/L Normal 21.0-32.0 [facility] Comment on above: Performed By: #### C MADM, CMP, DAMIEN, LIPA ####[facility] [address] [address]Dr. Andrea Garcia Creatinine [Mass/Vol] 1.06 mg/dL Normal 0.70-1.30 [facility] Comment on above: Performed By: #### C MADM, CMP, DAMIEN, LIPA ####[facility] [address] [address]Dr. Andrea Garcia EGFR-AF MOSOTHO >60 Normal >=60 [facility] Comment on above: Performed By: #### C MADM, CMP, DAMIEN, LIPA ####[facility] [address] [address]Dr. Andrea Garcia EGFR-NON AF MOSOTHO >60 Normal >=60 [facility] Comment on above: Performed By: #### C MADM, CMP, DAMIEN, LIPA ####[facility] [address] [address]Dr. Andrea Garcia Globulin (S) [Mass/Vol] 3.5 g/dL Normal [facility] Comment on above: Performed By: #### C MADM, CMP, DAMIEN, LIPA ####[facility] [address] [address]Dr. Andrea Garcia Glucose [Mass/Vol] 110 mg/dL Critically high 74-106 [facility] Comment on above: Performed By: #### C MADM, CMP, DAMIEN, LIPA ####[facility] [address] [address]Dr. Andrea Garcia Potassium [Moles/Vol] 4.3 mmol/L Normal 3.5-5.1 [facility] Comment on above: Performed By: #### C MADM, CMP, DAMIEN, LIPA ####[facility] [address] [place], [place] [address]Dr. Andrea Garcia Protein [Mass/Vol] 6.7 g/dL Normal 6.4-8.2 [facility] Comment on above: Performed By: #### C MADM, CMP, DAMIEN, LIPA ####[facility] [address] [place], [place] [address]Dr. Andrea Garcia Sodium [Moles/Vol] 140 mmol/L Normal 136-145 [facility] Comment on above: Performed By: #### C MADM, CMP, DAMIEN, LIPA ####[facility] [address] [address]Dr. Andrea Garcia Urea nitrogen [Mass/Vol] 20.0 mg/dL Critically high 7.0-18.0 [facility] Comment on above: Performed By: #### C MADM, CMP, DAMIEN, LIPA ####[facility] [address] [place], [place] [address]Dr. Andrea Garcia Urea nitrogen/Creatinine [Mass ratio] 18.9 mg/mg Normal [facility] Comment on above: Performed By: #### C MADM, CMP, DAMIEN, LIPA ####[facility] [address] [place], [place] [address]Dr. Andrea Garcia URINE MICROSCOPIC ONLYon BACTERIA NONE SEEN Normal NONE SEEN [facility] Comment on above: Performed By: #### U MICRO, ERUR #### [facility] [address] [place] [address] Dr. Andrea Garcia Bacteria identified Cx Nom (U) NOT INDICATED Normal [facility] Comment on above: Performed By: #### U MICRO, ERUR #### [facility] [address] [place] [address] Dr. Andrea Garcia CAST NONE SEEN Normal NONE SEEN [facility] Comment on above: Performed By: #### U MICRO, ERUR #### [facility] [address] [place] [address] Dr. Andrea Garcia Crystals LM Nom (Urine sed) NONE SEEN Normal NONE SEEN [facility] Comment on above: Performed By: #### U MICRO, ERUR #### [facility] [address] [place] [address] Dr. Andrea Garcia Epithelial cells LM Ql (Urine sed) NONE SEEN Normal NONE SEEN /RARE [facility] Comment on above: Performed By: #### U MICRO, ERUR #### [facility] [address] [place] [address] Dr. Andrea Garcia MUCOUS NONE SEEN Normal NONE SEEN [facility] Comment on above: Performed By: #### U MICRO, ERUR #### [facility] [address] [place] [address] Dr. Andrea Garcia RBC 0-2 Normal 0-2 [facility] Comment on above: Performed By: #### U MICRO, ERUR #### [facility] [address] [place] [address] Dr. Andrea Garcia WBC 0-2 Abnormal NONE SEEN [facility] Comment on above: Performed By: #### U MICRO, ERUR #### [facility] [address] [place] [address] Dr. Andrea Garcia XR CHEST 1 [place] 01-10-2023 XR CHEST 1 V Exam: Radiographs: X R CHEST 1 V Reason for exam: Nausea/vomiting Comparison: None IMPRESSION: Negative chest. Electronically authenticated by: ADITYA OATES Date: 2023-01-10 07:42 Normal [facility] MRI Soft Tissue Neck w/o + [...] by KENN RAPHAEL on 10/06/2021 1605 Normal [facility] Phone Engineer CT Soft Tissue Neck w/ Contr ast*on [...] by Que Greene on 09/29/2021 1013 Normal [facility] Phone Engineer Vital Signs Date Time Vital Sign Value Performing Clinician Faci litrubio 01-09-2024 19:01-0400 Diastolic blood pressure 99 mm[Hg] MD Lauren Godwin Work Phone: [facility] 01-09-2024 19:01-0400 Heart rate 84 /min MD Lauren Godwin Work Phone: [facility] 01-09-2024 19:01-0400 Respiratory rate 18 /min MD Lauren Godwin Work Phone: [facility] 01-09-2024 19:01-0400 SaO2% (BldA) [Mass fraction] 97 % MD Lauren Godwin Work Phone: [facility] 01-09-2024 19:01-0400 Systolic blood pressure 190 mm[Hg] MD Lauren Godwin Work Phone: [facility] 01-09-2024 14:29-0400 Body height 187.96 cm MD Lauren Godwin Work Phone: [facility] 01-09-2024 14:29-0400 Body temperature 98.3 [degF] MD Lauren Godwin Work Phone: [facility] 01-09-2024 14:29-0400 Body weight 83 kg MD Lauren Godwin Work Phone: [facility] 12-18-2023 13:10-0400 Heart rate 85 /min MD Lauren Godwin Work Phone: [facility] 12-18-2023 13:09-0400 Body temperature 97.9 [degF] MD Lauren Godwin Work Phone: [facility] 12-18-2023 13:09-0400 Diastolic blood pressure 77 mm[Hg] MD Lauren Godwin Work Phone: [facility] 12-18-2023 13:09-0400 Respiratory rate 18 /min MD Lauren Godwin Work Phone: [facility] 12-18-2023 13:09-0400 SaO2% (BldA) [Mass fraction] 97 % MD Lauren Godwin Work Phone: [facility] 12-18-2023 13:09-0400 Systolic blood pressure 161 mm[Hg] MD Lauren Godwin Work Phone: [facility] 12-18-2023 13:06-0400 Body height 186.69 cm MD Lauren Godwin Work Phone: [facility] 12-18-2023 13:06-0400 Body weight 81 kg MD Lauren Godwin Work Phone: [facility] 03-03-2023 13:30-0400 Diastolic blood pressure 100 mm[Hg] MD Lauren Godwin Work Phone: [facility] 03-03-2023 13:30-0400 Heart rate 59 /min MD Lauren Godwin Work Phone: [facility] 03-03-2023 13:30-0400 Respiratory rate 18 /min MD Lauren Godwin Work Phone: [facility] 03-03-2023 13:30-0400 SaO2% (BldA) [Mass fraction] 99 % MD Lauren Godwin Work Phone: [facility] 03-03-2023 13:30-0400 Systolic blood pressure 160 mm[Hg] MD Lauren Godwin Work Phone: [facility] 03-03-2023 11:36-0400 Body height 175.26 cm MD [facility] Godwin [facility] [facility] 03-03-2023 11:36-0400 Body temperature 98 [degF] MD Lauren Godwin Work Phone: [facility] 03-03-2023 [id number] Body weight 84.3 kg MD Lauren Godwin Work Phone: [facility] Encounters Encounter Date Encounter Type Care Provider Facility Start: 08-09-2024 End: 08-09-2024 Emergency department patient visit SHIV DICKERSON [facility] Start: 04-06-2024 End: 04-06-2024 ambulatory [facility] Start: 01-09-2024 End: 01-09-2024 Emergency department patient visit Lauren Godwin Facility:[facility] Start: 01-09-2024 End: 01-09-2024 Emergency department patient visit MD Lauren Godwin Work Phone: [facility] Work Phone: Start: 12-18-2023 End: 12-18-2023 Emergency department patient visit Marie Garrison Facility:[facility] Start: 12-18-2023 End: 12-18-2023 Emergency department patient visit MD Lauren Godwin Work Phone: [facility] Work Phone: Start: 12-09-2023 End: 12-09-2023 ambulatory [facility] Start: 06-07-2023 End: [facility] 05-27-2023 End: 05-27-2023 ambulatory [facility] Start: 03-03-2023 End: 03-03-2023 Emergency department patient visit Ramiro Cortez Facility:[facility] Start: 03-03-2023 End: 03-03-2023 Emergency department patient visit MD Lauren Godwin Work Phone: [facility] Work Phone: Start: 01-10-2023 End: 01-11-2023 Evaluation and management of inpatient DR DOCTOR CROCKER Facility:[facility]1 Procedures Date Procedure Procedure Detail Performing Clinician Start: 01-09-2024 CT angiography of thorax MD Lauren Godwin Work Phone: Start: 01-09-2024 Plain chest X-ray MD Valdivia Work Phone: Start: 03-03-2023 Plain chest X-ray MD Valdivia Work Phone: Plan of Treatment Date Care Activity Detail Author Start: 12-18-2023 [facility] Patient Education [facility] Work Phone: Patient referral [facility] Work Phone: Payers Date Payer Category Payer Self-pay [id number] 2022 Unknown [id number] 1960 Medicare [id number] 1950 Unknown [id number] 1950 Unknown [id number] Unknown [id number] Unknown [id number] [id number] Unknown [id number] [id number] [id number] Social History Date Type Detail Facility Start: 03-03-2023 End: 01-09-2024 Tobacco smoking status NHIS Ex-smoker (finding) [facility] Start: 1950 Sex Assigned At Male F [facility] Progress note 04-06-2024 Note Date & Type Note Facility 04-06-2024 Note [facility] Subjective Jeb Riddle is a 73 y.o. year old male patient here for a follow up echo from January, he was amitted to [facility], for chest pain a couple weeks ago and had another echo. He had a lipid panel yesterday. At last appointment his statin was changed. 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 He still rides his bike to [employer] everyday, still active. Patient Active Problem List [...] He was admitted to the hospital at [facility] and was started on anticoagulation therapy. [...] XL (more content not included)... [facility] Progress note 12-09-2023 Note Date & Type Note Facility 12-09-2023 Note 8K can you read, out of the so I can make changes in [facility] Subjective Jeb Riddle is a [...] presented to the emergency room at the [facility] and investigation including a CT scan [...] prav (more content not included)... [facility] Progress note 06-07-2023 Note Date & [...] norm (more content not included)... [facility] Progress note 05-27-2023 Note Date & Type Note Facility 05-27-2023 Note [facility] Subjective [...] 04/06/2023 396 QTC CALCULATION(BAZETT) 04/06/2023 456 P Azalea 04/06/2023 79 R-Azalea 04/06/2023 75 T Wave Azalea 04/06/2023 73 Imaging and other tests Cardiac catheterization 04/06/2023: Impression/Findings: Coronary angiogram shows non-obstructive coronary artery disease. Plan: Medical therapy for (more content not included)... [facility] Evaluation note Note Date & Type Note Facility Evaluation note No assessment information availa ble [facility] Work Phone: Hospital Discharge instructions Note Date & Type Note Facility Hospital Discharge instructions Additional Instructions Continue Pepcid once or twice a day as needed [place] diet Follow-up with your family doctor for recheck Return to the ER for worsening pain shortness of breath fever or any other concerns [facility] Work Phone: Summary Purpose Family History [...] section and content) DATE CREATED AUTHOR 10/07/2021 [facility] dical Specialist DATE CREATED AUTHOR AUTHOR'S ORGANIZ ATION 01/21/2023 [facility] pital DATE CREATED AUTHOR AUTHOR'S ORGANIZ ATION 01/09/2024 [facility] DATE CREATED AUTHOR AUTHOR'S ORGANIZ ATION 04/20/2024 [facility] DATE CREATED AUTHOR AUTHOR'S ORGANIZ ATION 08/10/2024 [facility] Care Teams (unrecognized sec tion and content) [...] 2024 End: January 09, 2024 Naima Boyd [facility] Emergency Provider Active Start: January 09, [...] BE BASED ON THE PRIMARY CLINICAL RECORDS. [facility] [employer] [facility]. provides no warranty or guarantee of the accuracy or completeness of information in this document.
--- NOTE | 2024-09-14 10:15 | MR_ITS ---
[place] [id number] Patient Name: JEB TOBIAS MRN: [id number] date: 1950 Sex: M Assigned Patient Location: CARD Current Patient Location: CARD Accession/Order Number: [id number] Exam Date: 09/14/2024 10:20 Report Date: 09/14/2024 17:27 At the request of: LAUREN VALLEJO Procedure: MR head/brain wo con EXAM: MR head/brain wo con HISTORY: Syncope R55 COMPARISON: None. TECHNIQUE: Sagittal T1-weighted and axial T2-weighted, turboFLAIR and diffusion-weighted with ADC map images of the brain were obtained without intravenous contrast. Findings: These images reveal no intracranial mass lesion, mass effect, midline shift or abnormal extraaxial fluid collection. The ventricles and sulci are normal for age. No abnormality of reduced diffusion. Normal intravascular flow voids. Moderate generalized cerebral atrophy. Moderate scattered T2/FLAIR white matter high signal foci suggesting sequelae of small vessel ischemic change/leukoaraiosis. 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 MR/MR head/brain wo con Impression: Age-related changes, without acute intracranial pathology.. Electronically authenticated by: MARIBEL TOBIAS Date: 09/14/2024 17:27
--- NOTE | 2024-09-14 10:16 | US_ITS ---
[place] [id number] Patient Name: JEB TOBIAS MRN: [id number] date: 1950 Sex: M Assigned Patient Location: CARD Current Patient Location: CARD Accession/Order Number: [id number] Exam Date: 09/14/2024 11:15 Report Date: 09/14/2024 13:47 At the request of: LAUREN VALLEJO Procedure: US venous doppler LE BI EXAM: US venous doppler LE BI HISTORY: Deep Vein Thrombosis Of Left Leg COMPARISON: None. TECHNIQUE: Grayscale, color and Doppler FINDINGS: Region: Bilateral legs Thrombus: None Flow: Normal Compressibility: Normal Augmentation: Normal Previously identified left gastrocnemius deep vein thrombus is not seen on the current exam US/US venous doppler LE BI IMPRESSION: No deep or superficial vein thrombus identified in the legs Electronically authenticated by: ROBERT DAVENPORT Date: 09/14/2024 13:47
== END 2024-09-14 07:39 | disposition home or self-care (01) ==
LOC: CARD 07:38
PROVIDERS: Family Provider Family Medicine; PCP Family Medicine; Visit Provider Family Medicine
DX: R55 Syncope and collapse (principal); I80.202 Phlebitis and thrombophlebitis of unspecified deep vessels of left lower extremity; Z86.718 Personal history of other venous thrombosis and embolism
CPT/HCPCS: 70551; 93970

== ENCOUNTER 2024-10-03 07:21 | Outpatient (OUT) | payer MEDICARE, SELFPAY ==
--- NOTE | 2024-10-03 | PCN_ITS ---
CARDIAC STRESS TEST Requesting Physician: Rodriguez Godwin M.D. Procedure Date: 10/03/2024 TREADMILL EKG STRESS TEST INDICATION FOR THE TEST: Palpitations and syncope. The procedure was discussed with the patient in detail, including risks and benefits, and he was agreeable to proceed. Patient?s resting heart beat 89 beats per minute, resting blood pressure 138/86 mm/Hg. The patient was exercised according to standard Kyle protocol, and he was able finish 7 minutes and 4 seconds of exercise, consistent with stage 3 and 10.10 METS. Exercise was terminated secondary to leg fatigue and achievement of target heart rate. Patient did not have any chest, neck, jaw or arm discomfort during the test. Patient?s heart rate went up to a max heart rate of 144 beats per minute, which represents 99% of age predicted maximum heart rate and to a max blood pressure of 200/104 mm/Hg. Patient was monitored up to 8 minutes into recovery phase, with heart rate back down to 90 beats per minute, and blood pressure to 144/88 mm/Hg. Resting 12 lead EKG showed normal sinus rhythm, heart rate 88 beats per minute, no significant T or ST changes, normal EKG. EKG during exercise, at peak exercise and during recovery period did not show significant T or ST changes, few PACs and rare PVCs were noted. CONCLUSION: 1. Maximal stress test achieving 99% of age predicted maximum heart rate. 2. Appropriate heart rate response to exercise, but hypertensive response to exercise. 3. Good exercise tolerance. 4. This stress test is negative for exercise induced ischemic symptoms, EKG changes or arrhythmias. 5. Armijo score is 7, consistent with low cardiac risk. MTDD
--- OUTSIDE RECORDS SUMMARY | 2024-10-03 07:23 | XMS_ITS | CCD ---
Author Organization [facility] Care Team Providers Care Oven Operator Automatic Name Role Phone DR BEHZAD CROCKER Primary Care Unavailable DANIEL ., JUNI Attending Unavailable DANIEL ., JUNI Admitting Unavailable DR ROBERT DAVENPORT V Consulting Unavailable PITER GROSSMAN Consulting Unavailable DANIEL ., JUNI Consulting Unavailable DIAB ., GRAYSON Consulting Unavailable ADITYA OATES Consulting Unavailable MD Lauren Godwin Primary Care Provider [phone] Ramiro Cortez Emergency Provider [phone] MD Lauren Godwin Primary Care Provider [phone] KYA Garrison Emergency Provider Deb, BOW MAKER GIFT WRAPPING-BC Naima Phelan Emergency Provider Lauren Godwin Primary Care Unavailable Naima Boyd Admitting Unavailable Naima Boyd Attending Unavailable Ramiro Cortez Admitting Unavailable Ramiro Cortez Attending Unavailable Lauren Godwin Primary Care Unavailable Marie Garrison Attending Unavailable Lauren Godwin Primary Care Unavailable Marie Garrison Admitting Unavailable SHIV DICKERSON Attending Unavailable LAUREN OGDWIN Primary Care Unavailable Unavailable Primary Care Provider UnavailMARIBEL Delaney Attending Unavailable LAUREN GODWIN Referring Unavailable JESSICA FORRESTER Attending Unavailable JESSICA FORRESTER Attending Unavailable JESSICA FORRESTER Attending Unavailable Allergies Allergy Classification Reported Allergen(s) Allergy Type Date of Onset Reaction(s) Facility (2 sources) Fish derivative; Translations: [fish derived] Propensity to adverse reactions 03-03-20 Gastrointestinal Upset [facility] (1 source) atorvastatin; Translations: [ATORVASTATIN] Drug Allergy 04-06-20 [facility] Repository Medications Current Medications Medication Drug Class(es) Dates Sig (Normalized) Sig (Original) cloNIDine hydrochloride 0.1 mg oral tablet (2 sources) Central alpha-2 Adrenergic Agonist take 1 tablet by mouth in the morning cloNIDine (Catapres) 0.1 MG tablet Take 0.1 mg by mouth in the morning and 0.1 mg before bedtime. Active diphenhydrAMINE hydrochloride 50 mg oral tablet (2 sources) Histamine-1 Receptor Antagonist diphenhydrAMINE (BENADryl) 50 MG tablet Take 50 mg by mouth as needed at bedtime for itching Active isosorbide dinitrate 5 mg oral tablet (2 sources) Nitrate Vasodilator take 1 tablet by mouth once daily isosorbide dinitrate (Isordil) 5 MG tablet Take 5 mg by mouth Daily Active lisinopril 5 mg oral tablet (8 sources) Angiotensin Converting Enzyme Inhibitor Start: 03-03-2023 take 5 mg by mouth twice daily Lisinopril Active 5 MG PO Twice daily March 03, 2023 12:00am Start: 09-06-2019 End: 03-03-2023 take 10 mg by mouth twice daily Lisinopril Discontinue d 10 MG PO Twice daily September 06, 2019 1:00am March 03, 2023 12:47pm take 1 tablet by linda th once daily lisinopril 5 MG tablet Take 5 mg by mouth Daily Active LORazepam 1 mg oral tablet (5 sources) Benzodiazepine Start: 03-03-2023 take 1 tablet by mouth every twelve hours Lorazepam (Ativan) 1 mg tablet Active 1 MG PO Q12H 7 3 March 03, 2023 12:00am take 1 tablet by mouth at bedtim e LORazepam (Ativan) 0.5 MG tablet Take 0.5 mg by mouth at bedtime Active mesalamine 400 mg delayed release oral capsule (5 sources) Aminosalicylate Start: 09-06-2019 take 1 tablet by mouth four times daily Mesalamine (Delzicol) 400 mg Capsule (With Del Rel Tablets) Active 400 MG PO Four times daily September 06, 2019 1:00am Multiple Vitamin (multivitamin) capsule (2 sources) take 1 capsule by mouth once daily Multiple Vitamin (multivitamin) capsule Take 1 capsule by mouth Daily Active Completed/Discontinued Medications Medication Drug Class(es) Dates Sig [...] HISTORY OF URINARY CALCULI] Onset: 01-12-2023 Episodic Cardiac dysrhythmias (2 sources) Atypical atrial flutter; 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 atrial flutter] Onset: 09-24-2024 Chronic Coma; stupor; and brain damage (2 sources) Loss of consciousness; Translations: [Unspecified coma] 09-19-2024 Episodic Conditions associated with dizziness or vertigo (1 source) Dizziness and giddiness; Translations: [Dizziness and giddiness] Onset: 12-18-2023 Episodic Congestive heart failure; nonhypertensive (1 source) Congestive heart failure; Translations: [Heart failure, unspecified] 01-09-2024 Chronic Coronary atherosclerosis and other heart disease (2 sources) Atherosclerotic heart disease of [place] coronary artery without angina pectoris; Translations: [Atherosclerotic heart disease of [place] coronary artery without angina pectoris] Onset: 09-24-2024 Chronic Epilepsy; convulsions (1 source) Unspecified convulsions; Translations: [Unspecified convulsions] Onset: 08-09-2024 Episodic Essential hypertension (3 sources) Essential (primary) hypertension; Translations: [ESSENTIAL PRIMARY HYPERTENSION] Onset: 01-12-2023 Chronic Other aftercare (1 source) [facility] (current) use of systemic steroids; Translations: [[facility] USE OF SYSTEMIC STEROIDS] Onset: 01-12-2023 Episodic Other aftercare (1 source) Other senior care (current) drug therapy; Translations: [OTH [facility] CURRENT DRUG THERAPY] Onset: 01-12-2023 Episodic Other and ill-defined heart disease (2 sources) Cardiomegaly; Translations: [Cardiomegaly] Onset: 09-24-2024 Chronic Other nutritional; endocrine; and metabolic disorders (1 source) Hypomagnesemia; Translations: [Hypomagnesemia] Onset: 08-09-2024 Chronic Other skin disorders (1 source) Disorder of the skin and subcutaneous tissue, unspecified; Translations: [DISORDER SKIN AND SUBQ TISSUE UNS] Onset: 01-12-2023 Episodic Phlebitis; thrombophlebitis and thromboembolism (2 sources) Personal history of other venous thrombosis and embolism; Translations: [Personal history of other venous thrombosis and embolism] Onset: 09-24-2024 Episodic Pulmonary heart disease (2 sources) Personal history of pulmonary embolism; Translations: [Personal history of pulmonary embolism] Onset: 09-24-2024 Episodic Regional enteritis and ulcerative colitis (6 [...] and collapse] 03-03-2023 Episodic Unclassified (1 source) Seizure - New Onset Onset: 08-09-2024 Unclassified (1 source) EMS Onset: 08-09-2024 Unclassified (1 source) Other ventricular tachycardia; Translations: [Other ventricular tachycardia] Onset: 04-06-2024 Past or Other Problems Problem Classification Problem Date Documented Da te Episodic/Chronic Nonspecific chest pain (2 sources) Atypical chest pain; Translations: [Other chest pain] Onset: 03-03-2023 01-09-2024 Episodic Unclassified (1 source) Other ventricular tachycardia; Translations: [Other ventricular tachycardia] Onset: 04-06-2024 Results Test Name Value Interpretation Reference Range Facility Office Visiton 09-24-2024 Follow-up visit [id number] Jeb Riddle 1950 M Date Provider Department Center 09/24/2024 JESSICA JAMISON M[facility] Family History Problem Relation Age of Onset Diabetes Mother Coronary artery disease Mother Heart attack Father Diabetes Father Coronary artery disease Father Family Status - Relation Status Age at Mother Father Level of Service:47599 [place] OFFICE/OUTPATIENT ESTABLISHED MOD MDM [address] [facility] CBC AND AUTO DIFFon 08-09-20 ABSOLUTE BASOPHIL 0.0 X10E9/L Normal 0.0-0.2 [facility] Comment on above: Performed By: #### 1 9123-9, 57371-1, CMP, 73965-3, 48776-4, CBCA, 5643-2, PINR #### [facility] ([id number]) [address] [place] [address] 96703 ABSOLUTE NEUTROPHIL 3.9 X10E9/L Normal 1.5-6.6 [facility] Comment on above: Performed By: #### 1 9123-9, 66092-5, CMP, 08868-1, 90173-0, CBCA, 5643-2, PINR #### [facility] ([id number]) [address] [place] [address] 11673 Basophils/100 WBC (Bld) 0.3 % Normal [facility] Comment on above: Performed By: #### 1 9123-9, 59375-0, CMP, 26069-6, 62047-2, CBCA, 5643-2, PINR #### [facility] ([id number]) [address] [place] [address] 10752 Eosinophils (Bld) [#/Vol] 0.1 10*3/uL Normal 0.0-0.4 [facility] Comment on above: Performed By: #### 1 9123-9, 74515-0, CMP, 29849-9, 23876-0, CBCA, 5643-2, PINR #### [facility] ([id number]) [address] [place] [address] 53561 Eosinophils/100 WBC (Bld) 1.4 % Normal [facility] Comment on above: Performed By: #### 1 9123-9, 68593-0, CMP, 87855-0, 67272-4, CBCA, 5643-2, PINR #### [facility] ([id number]) [address] [place] [address] 07620 Erythrocyte distribution width (RBC) [Ratio] 13.0 % Normal 11.5-15.0 [facility] Comment on above: Performed By: #### 1 9123-9, 74055-6, CMP, 78662-6, 08502-0, CBCA, 5643-2, PINR #### [facility] ([id number]) [address] [place] [address] 30425 Hematocrit (Bld) [Volume fraction] 35.7 % Low 39-49 [facility] Comment on above: Performed By: #### 1 9123-9, 78041-7, CMP, 89598-8, 38895-4, CBCA, 5643-2, PINR #### [facility] ([id number]) [address] [place] [address] 30782 Hemoglobin (Bld) [Mass/Vol] 12.3 g/dL Low 13.0-17.0 [facility] Comment on above: Performed By: #### 1 9123-9, 16919-6, CMP, 66244-2, 69974-1, CBCA, 5643-2, PINR #### [facility] ([id number]) [address] [place] [address] 90362 Lymphocytes (Bld) [#/Vol] 1.1 10*3/uL Normal 1.0-3.5 [facility] Comment on above: Performed By: #### 1 9123-9, 97503-1, CMP, 90478-1, 90753-7, CBCA, 5643-2, PINR #### [facility] ([id number]) [address] [place] [address] 94602 Lymphocytes/100 WBC (Bld) 21.0 % Normal [facility] Comment on above: Performed By: #### 1 9123-9, 13075-4, CMP, 26032-0, 94023-4, CBCA, 5643-2, PINR #### [facility] ([id number]) [address] [place] [address] 91272 MCH (RBC) [Entitic mass] 33.2 pg Normal 27-34 [facility] Comment on above: Performed By: #### 1 9123-9, 73696-4, CMP, 11603-4, 67092-1, CBCA, 5643-2, PINR #### [facility] ([id number]) [address] [place] [address] 60737 MCHC (RBC) [Mass/Vol] 34.3 g/dL Normal 32-36 [facility] Comment on above: Performed By: #### 1 9123-9, 17094-3, CMP, 56305-8, 30461-9, CBCA, 5643-2, PINR #### [facility] ([id number]) [address] [place] [address] 85064 MCV (RBC) [Entitic vol] 97 fL Normal 80-100 [facility] Comment on above: Performed By: #### 1 9123-9, 26911-0, CMP, 02091-1, 57216-9, CBCA, 5643-2, PINR #### [facility] ([id number]) [address] [place] [address] 20066 Monocytes (Bld) [#/Vol] 0.2 10*3/uL Normal 0-0.9 [facility] Comment on above: Performed By: #### 1 9123-9, 37234-2, CMP, 77769-1, 95879-1, CBCA, 5643-2, PINR #### [facility] ([id number]) [address] [place] [address] 78412 Monocytes/100 WBC (Bld) 4.5 % Normal [facility] Comment on above: Performed By: #### 1 9123-9, 35535-7, CMP, 03739-3, 10105-0, CBCA, 5643-2, PINR #### [facility] ([id number]) [address] [place] [address] 99860 Neutrophils/100 WBC (Bld) 72.8 % Normal [facility] Comment on above: Performed By: #### 1 9123-9, 37641-6, CMP, 67006-9, 44943-6, CBCA, 5643-2, PINR #### [facility] ([id number]) [address] [place] [address] 97367 Platelet mean volume (Bld) [Entitic vol] 7.7 fL Normal 7-12 [facility] Comment on above: Performed By: #### 1 9123-9, 24377-1, CMP, 60642-5, 47245-0, CBCA, 5643-2, PINR #### [facility] ([id number]) [address] [place] [address] 31753 Platelets (Bld) [#/Vol] 208 10*3/uL Normal 150-450 [facility] Comment on above: Performed By: #### 1 9123-9, 00907-4, CMP, 15207-7, 24337-0, CBCA, 5643-2, PINR #### [facility] ([id number]) [address] [place] [address] 30436 RBC COUNT 3.69 X10E12/L Low 4.10-5.70 [facility] Comment on above: Performed By: #### 1 9123-9, 94392-5, CMP, 65617-3, 05491-4, CBCA, 5643-2, PINR #### [facility] ([id number]) [address] [place] [address] 53198 WBC (Bld) [#/Vol] 5.4 10*3/uL Normal 4.0-11.0 [facility] Comment on above: Performed By: #### 1 9123-9, 11960-3, CMP, 51627-0, 44861-0, CBCA, 5643-2, PINR #### [facility] ([id number]) [address] [place] [address] 82945 COMPREHENSIVE METABOLIC PANE [facility] 08-09-2024 Albumin [Mass/Vol] 3.5 g/dL Normal 3.2-5.3 [facility] Comment on above: Performed By: #### 1 9123-9, 01337-1, CMP, 10564-7, 63806-6, CBCA, 5643-2, PINR #### [facility] ([id number]) [address] [place] [address] 55776 ALP [Catalytic activity/Vol] 56 U/L Normal 39-130 [facility] Comment on above: Performed By: #### 1 9123-9, 00760-8, CMP, 06401-4, 33634-6, CBCA, 5643-2, PINR #### [facility] ([id number]) [address] [place] [address] 20184 ALT [Catalytic activity/Vol] 25 U/L Normal 0-40 [facility] Comment on above: Performed By: #### 1 9123-9, 65408-9, CMP, 33138-3, 16925-1, CBCA, 5643-2, PINR #### [facility] ([id number]) [address] [place] [address] 36891 Anion gap [Moles/Vol] 7 mmol/L Normal 5-15 [facility] Comment on above: Performed By: #### 1 9123-9, 14005-3, CMP, 99852-7, 32352-9, CBCA, 5643-2, PINR #### [facility] ([id number]) [address] [place] [address] 08268 AST [Catalytic activity/Vol] 19 U/L Normal 0-41 [facility] Comment on above: Performed By: #### 1 9123-9, 21281-1, CMP, 01301-7, 54798-6, CBCA, 5643-2, PINR #### [facility] ([id number]) [address] [place] [address] 06791 Bilirubin [Mass/Vol] 0.4 mg/dL Normal 0.3-1.2 [facility] Comment on above: Performed By: #### 1 9123-9, 88308-4, CMP, 04823-3, 37529-9, CBCA, 5643-2, PINR #### [facility] ([id number]) [address] [place] [address] 88287 Calcium [Mass/Vol] 8.8 mg/dL Normal 8.5-10.5 [facility] Comment on above: Performed By: #### 1 9123-9, 15988-4, CMP, 25686-8, 56979-5, CBCA, 5643-2, PINR #### [facility] ([id number]) [address] [place] [address] 00058 Chloride [Moles/Vol] 108 mmol/L Normal 98-109 [facility] Comment on above: Performed By: #### 1 9123-9, 37696-1, CMP, 39561-2, 86628-8, CBCA, 5643-2, PINR #### [facility] ([id number]) [address] [place] [address] 59979 CO2 [Moles/Vol] 23 mmol/L Normal 22-32 [facility] Comment on above: Performed By: #### 1 9123-9, 00576-0, CMP, 43506-3, 94229-4, CBCA, 5643-2, PINR #### [facility] ([id number]) [address] [place] [address] 54631 Creatinine [Mass/Vol] 1.37 mg/dL High 0.70-1.20 [facility] Comment on above: Result Comment: METH OD TRACEABLE TO IDMS STANDARD Performed By: #### 1 9123-9, 69303-9, CMP, 85812-9, 94970-4, CBCA, 5643-2, PINR #### [facility] ([id number]) [address] [place] [address] 00059 GFR/1.73 sq M.predicted among non-blacks MDRD (S/P/Bld) [Vol rate/Area] 54 mL/min/{1.73_m2} Low >59 [facility] Comment on above: Result Comment: Reported eGFR is based on the CKD-EPI 2020 equation that does not use a race coefficient. Performed By: #### 1 9123-9, 26258-6, CMP, 77830-2, 47490-5, CBCA, 5643-2, PINR #### [facility] ([id number]) [address] [place] [address] 31799 Glucose [Mass/Vol] 155 mg/dL High 65-99 [facility] Comment on above: Performed By: #### 1 9123-9, 86758-8, CMP, 98872-9, 13897-0, CBCA, 5643-2, PINR #### [facility] ([id number]) [address] [place] [address] [place] [address] Potassium [Moles/Vol] 4.3 mmol/L Normal 3.5-5.0 [facility] Comment on above: Performed By: #### 1 9123-9, 84837-3, CMP, 69129-2, 49754-3, CBCA, 5643-2, PINR #### [facility] ([id number]) [address] [place] [address] 43072 Protein [Mass/Vol] 6.0 g/dL Normal 6.0-8.0 [facility] Comment on above: Performed By: #### 1 9123-9, 41125-9, CMP, 74163-4, 14590-7, CBCA, 5643-2, PINR #### [facility] ([id number]) [address] [place] [address] 16409 Sodium [Moles/Vol] 138 mmol/L Normal 134-146 [facility] Comment on above: Performed By: #### 1 9123-9, 13320-6, CMP, 90833-2, 49382-7, CBCA, 5643-2, PINR #### [facility] ([id number]) [address] [place] [address] 98301 Urea nitrogen [Mass/Vol] 25 mg/dL Normal 5-27 [facility] Comment on above: Performed By: #### 1 9123-9, 92290-7, CMP, 58983-2, 04838-4, CBCA, 5643-2, PINR #### [facility] ([id number]) [address] [place] [address] BRAIN WO CONTon 4 CT BRAIN WO CONT CT BRAIN WO [...] Moran MD on 08/09/2024 12:54 PM Normal [facility] DRUG SCREEN, URINEon 024 AMPHETAMINE/METHAMP Negative Normal NEG [facility] Comment on above: Result Comment: AMPH /METH screening cut off = 1000 ng/mL Performed By: #### 1 9123-9, 22474-2, CMP, 60889-1, 67696-0, CBCA, 5643-2, PINR #### [facility] ([id number]) [address] [place] [address] 61602 BARBITURATES Negative Normal NEG [facility] Comment on above: Result Comment: Maria Eugenia iturates screening cut off value = 200 ng/mL Performed By: #### 1 9123-9, 55014-7, CMP, 19762-9, 90712-0, CBCA, 5643-2, PINR #### [facility] ([id number]) [address] [place] [address] 30765 BENZODIAZEPINES Negative Normal NEG [facility] Comment on above: Result Comment: Paulie odiazepines screening cut off value = 200 ng/mL Performed By: #### 1 9123-9, 31595-0, CMP, 04297-3, 25581-3, CBCA, 5643-2, PINR #### [facility] ([id number]) [address] [place] [address] 24866 CANNABINOIDS Negative Normal NEG [facility] Comment on above: Result Comment: Nora abinoids/THC screening cut off value = 50 ng/mL Performed By: #### 1 9123-9, 14679-9, CMP, 98893-0, 30832-5, CBCA, 5643-2, PINR #### [facility] ([id number]) [address] [place] [address] 58438 COCAINE METABOLITE Negative Normal NEG [facility] Comment on above: Result Comment: Coca ine screening cut off value = 300 ng/mL Performed By: #### 1 9123-9, 51420-9, CMP, 09689-3, 71622-2, CBCA, 5643-2, PINR #### [facility] ([id number]) [address] [place] [address] 17867 ECSTASY Negative Normal NEG [facility] Comment on above: Result Comment: Ecst asy screening cut off value = 500 ng/mL This report is intended for use in clinical monitoring or management of patients. Performed By: #### 1 9123-9, 59386-0, CMP, 26622-9, 23115-6, CBCA, 5643-2, PINR #### [facility] ([id number]) [address] [place] [address] 38182 METHADONE Negative Normal NEG [facility] Comment on above: Result Comment: Meth adone screening cut off value = 300 ng/mL. Performed By: #### 1 9123-9, 77437-9, CMP, 58836-2, 17027-4, CBCA, 5643-2, PINR #### [facility] ([id number]) [address] [place] [address] 82158 OPIATES Negative Normal NEG [facility] Comment on above: Result Comment: Opia brennen screening cut off value = 300 ng/mL NOTE: This test is used for the detection of codeine, hydrocodone (>1000 ng/mL), morphine and hydromorphone (>900 ng/mL) in urine. Performed By: #### 1 9123-9, 87814-0, CMP, 14310-8, 89083-4, CBCA, 5643-2, PINR #### [facility] ([id number]) [address] [place] [address] 05412 OXYCODONE Negative Normal NEG [facility] Comment on above: Result Comment: Oxyc odone screening cut off value = 300 ng/mL NOTE: This test is used for the detection of oxycodone and oxymorphone in urine. Performed By: #### 1 9123-9, 49700-4, CMP, 64952-9, 41060-8, CBCA, 5643-2, PINR #### [facility] ([id number]) [address] [place] [address] 45045 PHENCYCLIDINE Negative Normal NEG [facility] Comment on above: Result Comment: Phen cyclidine screening cut off value = 25 ng/mL Performed By: #### 1 9123-9, 13614-9, CMP, 29716-4, 98306-9, CBCA, 5643-2, PINR #### [facility] ([id number]) [address] [place] [address] 90752 ETHANOLon 08-09-2024 Ethanol [Mass/Vol] mg/dL Normal 0.00-0.08 [facility] Comment on above: Result Comment: This report is intended for use in clinical monitoring or management of patients. Performed By: #### 1 9123-9, 69655-3, [facility], 59075-0, 25056-4, CBCA, 5643-2, PINR #### [facility] ([id number]) [address] [place] [address] 78808 Fibrin D-dimer DDU (PPP) [Ma ss/Vol]on 08-09-2024 D DIMER 167 ng/mL DDU Normal <255 [facility] Comment on above: Result Comment: Results <255 ng/mL DDU: The presence of a VTE can safely be excluded with a negative D-Dimer result and Wells score. A negative result doesn't exclude the possibility of DIC. The test be repeated along with other diagnostic tests if the patient's symptoms persist or worsen. [email or web address] Performed By: #### 1 9123-9, 83271-8, CMP, 24501-3, 30726-4, CBCA, 5643-2, PINR #### [facility] ([id number]) [address] [place] [address] 62856 MAGNESIUMon 08-09-2024 Magnesium [Mass/Vol] 1.4 mg/dL Low 1.8-2.6 [facility] Comment on above: Performed By: #### 1 9123-9, 80092-0, CMP, 34302-6, 67451-7, CBCA, 5643-2, PINR #### [facility] ([id number]) [address] [place] [address] 46612 PROTIME AND INRon 08-09-2024 INR Coag (PPP) [Relative time] 1.2 {INR} High 0.8-1.1 [facility] Comment on above: Performed By: #### 1 9123-9, 84503-1, CMP, 69061-9, 07812-3, CBCA, 5643-2, PINR #### [facility] ([id number]) [address] [place] [address] 08931 PT Coag (PPP) [Time] 14.3 s High 9.8-13.2 [facility] Comment on above: Result Comment: NEW REFERENCE RANGE Performed By: #### 1 9123-9, 22811-1, CMP, 22729-7, 41465-0, CBCA, 5643-2, PINR #### [facility] ([id number]) [address] [place] [address] [place] [address] Troponin I.cardiac High sens itivity method [Mass/Vol]on 08-09-2024 1 HOUR TROP I, HIGH SENSITIVITY 10 ng/L Normal <21 [facility] Comment on above: Performed By: #### 1 9123-9, 90812-5, CMP, 75736-4, 81507-8, CBCA, 5643-2, PINR #### [facility] ([id number]) [address] [place] [address] TROPONIN I, HIGH SENSITIVITY 8 ng/L Normal <21 [facility] Comment on above: Performed By: #### 1 9123-9, 57632-3, CMP, 90691-0, 45872-9, CBCA, 5643-2, PINR #### [facility] ([id number]) [address] [place] [address], [place] [address] URINALYSISon 08-09-2024 Bilirubin Ql (U) Negative Normal NEG [facility] Comment on above: Performed By: #### 1 9123-9, 62886-3, CMP, 47594-3, 61109-6, CBCA, 5643-2, PINR #### [facility] ([id number]) [address] [place] [address], [place] [address] BLOOD/HGB Negative Normal NEG [facility] Comment on above: Performed By: #### 1 9123-9, 20371-2, CMP, 87632-2, 53214-6, CBCA, 5643-2, PINR #### [facility] ([id number]) [address] [place] [address], [place] [address] Color (U) YELLOW Normal YELLOW [facility] Comment on above: Performed By: #### 1 9123-9, 34248-3, CMP, 64112-2, 49628-4, CBCA, 5643-2, PINR #### [facility] ([id number]) [address] [place] [address], [place] [address] Glucose Ql (U) Negative Normal NEG [facility] Comment on above: Performed By: #### 1 9123-9, 25534-2, CMP, 82697-0, 08181-2, CBCA, 5643-2, PINR #### [facility] ([id number]) [address] [place] [address] Ketones Ql (U) Negative Normal NEG [facility] Comment on above: Performed By: #### 1 9123-9, 81175-1, CMP, 36054-0, 01928-3, CBCA, 5643-2, PINR #### [facility] ([id number]) [address] [place] [address] Leukocyte esterase Test strip Ql (U) Negative Normal NEG [facility] Comment on above: Performed By: #### 1 9123-9, 82869-9, CMP, 39591-8, 06283-7, CBCA, 5643-2, PINR #### [facility] ([id number]) [address] [place] [address] Nitrite Ql (U) Negative Normal NEG [facility] Comment on above: Performed By: #### 1 9123-9, 12959-8, CMP, 55129-3, 54228-7, CBCA, 5643-2, PINR #### [facility] ([id number]) [address] [place] [address] pH (U) 6.0 [pH] Normal 5.0-8.5 [facility] Comment on above: Performed By: #### 1 9123-9, 41402-6, CMP, 06365-9, 29374-5, CBCA, 5643-2, PINR #### [facility] ([id number]) [address] [place] [address] Protein Ql (U) Negative Normal NEG [facility] Comment on above: Performed By: #### 1 9123-9, 36646-1, CMP, 49616-6, 46031-2, CBCA, 5643-2, PINR #### [facility] ([id number]) [address] [place] [address], [place] [address] Specific gravity (U) [Rel density] 1.025 Normal 1.003-1.03 5 [facility] Comment on above: Performed By: #### 1 9123-9, 92671-4, CMP, 55177-0, 48146-9, CBCA, 5643-2, PINR #### [facility] ([id number]) [address] [place] [address], [place] [address] TURBIDITY CLEAR Normal CLEAR [facility] Comment on above: Performed By: #### 1 9123-9, 17503-6, CMP, 62577-9, 27709-5, CBCA, 5643-2, PINR #### [facility] ([id number]) [address] [place] [address] Urobilinogen Qn (U) 0.2 {Temo'U}/dL Normal <1.1 [facility] Comment on above: Performed By: #### 1 9123-9, 68821-5, CMP, 33513-4, 21774-4, CBCA, 5643-2, PINR #### [facility] ([id number]) [address] [place] [address], [place] [address] URN MACROSCOPIC NURon 2023 BILIRUBIN FRANKLIN Negative Normal NEG [facility] Comment on above: Performed By: #### N UM #### [facility] ([id number]) [address] [place] [address], [place] [address] BLOOD/HGB FRANKLIN Negative Normal NEG [facility] Comment on above: Performed By: #### N UM #### [facility] ([id number]) [address] [place] [address] [place] [address] GLUCOSE FRANKLIN Negative Normal NEG [facility] Comment on above: Performed By: #### N UM #### [facility] ([id number]) [address] [place] [address], [place] [address] KETONES FRANKLIN Negative Normal NEG [facility] Comment on above: Performed By: #### N UM #### [facility] ([id number]) [address] [place] [address] LEUKOCYTE ESTERASE FRANKLIN Negative Normal NEG Pr [facility] Comment on above: Performed By: #### N UM #### [facility] ([id number]) [address] [place] [address] NITRITE FRANKLIN Negative Normal NEG [facility] Comment on above: Performed By: #### N UM #### [facility] ([id number]) [address] [place] [address] PH FRANKLIN 5.5 Normal 5.0-8.5 [facility] Comment on above: Performed By: #### N UM #### [facility] ([id number]) [address] [place] [address] PROTEIN FRANKLIN Negative Normal NEG [facility] Comment on above: Performed By: #### N UM #### [facility] ([id number]) [address] [place] [address] SPECIFIC GRAVITY FRANKLIN 1.020 Normal 1.003-[address] [place] [address] Comment on above: Performed By: #### N UM #### [facility] ([id number]) [address] [place] [address] UROBILINOGEN FRANKLIN 0.2 eu/dL Normal <1.1 [facility] Comment on above: Performed By: #### N UM #### [facility] ([id number]) [address] [place] [address] aPTT Coag (PPP) [Time]on aPTT Coag (Bld) [Time] 33 s Normal 26-37 Pr [facility] Comment on above: Result Comment: NEW REFERENCE RANGE Performed By: #### 1 9123-9, 29597-3, CMP, 05528-6, 59273-6, CBCA, 5643-2, PINR #### [facility] ([id number]) [address] [place] [address], [place] [address] 36on 04-18-2024 36 From: Jessica muñoz MD Sent: 04/18/2024 12:32 PM EDT To: Yuridia Nuñez MA Subject: RE: Scan Please inform him that blood testing for clotting disorder is negative. He should follow up with Dr Godwin for cancer screening. Pt has been notified [facility] Office Visiton 04-06-2024 Follow-up visit [id number] Jeb Riddle 1950 M Date Provider Department Center 04/06/2024 [facility] [place] [facility] Family History Problem Relation Age of Onset Diabetes Mother Coronary artery disease Mother Heart attack Father Diabetes Father Coronary artery disease Father Family Status - Relation Status Age at Mother Father Level of Service:75573 [place] OFFICE/OUTPATIENT ESTABLISHED MOD MDM 30 MIN [facility] 36on 02-17-2024 36 Patient called back and said he is taking meds as prescribed at last visit with Dr. Forrester. I made him apt with Dr. Forrester end of Mar since he is not here in Apr. [facility] 36on 02-15-2024 36 Regarding echo from 02/02/2024: MD Yuridia Herman MA Has he been taking meds as I recommended at last visit? 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 He should come for a visit in 3 months. LM w/ sister Mary to return my call. [facility] Activated partial thrombopla stin time (aPTT) in platelet poor plasma by coagulation aOrdered By: Naima Boyd on 01-09-2024 aPTT Coag (PPP) [Time] 29.1 s 25.1-36.5 [facility] Comment on above: A hematocrit value g reater than 55% may lead to inaccurate results in coagulation testing. Patients having hematocrit values >55% require a special collection tube for coagulation studies. Please contact the laboratory at [phone] for redraw instructions. B-Type Natriuretic Peptideon 01-09-2024 Natriuretic peptide B (Bld) [Mass/Vol] 172.0 pg/mL High 5-100 [facility] Comment on above: Result Comment: PERF ORMED BY: [facility] [address] [place] [address] PATHOLOGIST STRIPER RADHA BARRON M.D. Performed By: #### B REWRITE EDITOR, HS TROP, BMP, CK, DIFF CBC ####[address] Basic Metabolic Panelon 12-14 Anion gap [Moles/Vol] Not performed Normal 6.0-15.0 [facility] Comment on above: Performed By: #### B REWRITE EDITOR, HS TROP, BMP, CK, DIFF CBC ####[address] Calcium [Mass/Vol] 8.7 mg/dL Normal 8.6-10.3 [facility] Comment on above: Performed By: #### B REWRITE EDITOR, HS TROP, BMP, CK, DIFF CBC ####[address] Chloride [Moles/Vol] 109 mmol/L High 98-107 [facility] Comment on above: Performed By: #### B REWRITE EDITOR, HS TROP, BMP, CK, DIFF CBC ####[address] CO2 [Moles/Vol] 22.4 mmol/L Normal 21.0-31.0 [facility] Comment on above: Performed By: #### B REWRITE EDITOR, HS TROP, BMP, CK, DIFF CBC ####[address] Creatinine [Mass/Vol] 1.16 mg/dL Normal 0.70-1.30 [facility] Comment on above: Performed By: #### B REWRITE EDITOR, HS TROP, BMP, CK, DIFF CBC ####[address] [place] [address] [place] Creatinine Clr Calc Pharmacy 64.96 Normal [facility] Comment on above: Result Comment: PERF ORMED BY: [facility] [address] [place] [address] PATHOLOGIST STRIPER RADHA BARRON M.D. Performed By: #### B REWRITE EDITOR, HS TROP, BMP, CK, DIFF CBC ####[address] GFR/1.73 sq M.predicted MDRD (S/P/Bld) [Vol rate/Area] mL/min/{1.73_m2} Normal [facility] Comment on above: Performed By: #### B REWRITE EDITOR, HS TROP, BMP, CK, DIFF CBC ####[address] Glucose [Mass/Vol] 95 mg/dL Normal 70-100 [facility] Comment on above: Result Comment: [facility] Glucose Reference Range is dependent on time and content of last meal. Glucose of more than 200 mg/dL in a nonstressed, ambulatory subject supports the diagnosis of Diabetes Mellitus. ADA recommended reference range Performed By: #### B REWRITE EDITOR, HS TROP, BMP, CK, DIFF CBC ####[address] Potassium Normal 3.5-5.1 [facility] Comment on above: Result Comment: Spec imen hemolyzed, redraw requested Performed By: #### B REWRITE EDITOR, HS TROP, BMP, CK, DIFF CBC ####[address] Sodium [Moles/Vol] 142 mmol/L Normal 136-145 [facility] Comment on above: Performed By: #### B REWRITE EDITOR, HS TROP, BMP, CK, DIFF CBC ####[address] Urea nitrogen [Mass/Vol] 20 mg/dL Normal 7-25 [facility] Comment on above: Performed By: #### B REWRITE EDITOR, HS TROP, BMP, CK, DIFF CBC ####[place] [address] [place] [address] [place] Basophils Auto (Bld) [#/Vol] Ordered By: Naima Boyd on 01-09-2024 Basophils (Bld) [#/Vol] N/A [facility] Basophils/100 WBC Auto (Bld) Ordered By: Naima Godwinimore on 01-09-2024 Basophils/100 WBC (Bld) N/A [facility] Basophils/100 WBC Manual cnt (Bld)Ordered By: Naima Rutherfordore on 01-09-2024 Basophils/100 WBC (Bld) 0 % 0-[address] [facility] [address] angio chest PE protocolon 01-09-2024 CT angio chest PE protocol [facility] [address] [place] [address] [place] [address] CT Scan Report Signed Patient: Jeb Riddle MR#: [id number] : 1950 Acct:[id number] Age/Sex: 73 / M ADM Date: 01/09/24 Loc: ER Room: Type: [facility] ER Attending Dr: Copies to: SABA Blaneknship Ordering Provider: SABA Blankenship Date of Service: [...] Jeb Collins M.D.01/09/2024 6:17 PM Dictation Location: [place] [address] Transcribed By: [facility] 01/09/241816 Dictated By: Jeb Collins II, MD 01/09/241810 Signed By: 01/09/241816 Normal [facility] Calcium [Mass/volume] in Ser um or PlasmaOrdered By: Naima Boyd on 01-09-2024 Calcium [Mass/Vol] 8.7 mg/dL 8.6-10.3 [facility] Carbon dioxide, total [Moles /volume] in Serum or PlasmaOrdered By: Naima Boyd on 01-09-2024 CO2 [Moles/Vol] 22.4 mmol/L 21.0-31.0 [facility] Chloride [Moles/volume] in S pooja or PlasmaOrdered By: Naima Boyd on 01-09-2024 Chloride [Moles/Vol] 109 mmol/L 98-107 [facility] Coagulation Profileon 2023 aPTT Coag (Bld) [Time] 29.1 s Normal 25.1-36.5 [facility] Comment on above: Order Comment: REDRA W Result Comment: A he matocrit value greater than 55% may lead to inaccurate results in coagulation testing. Patients having hematocrit values >55% require a special collection tube for coagulation studies. Please contact the laboratory at [phone] for redraw instructions. Performed By: #### P P, DDIMER ####[place] [id number] [facility] INR Coag (PPP) [Relative time] 1.0 {INR} Normal [facility] Comment on above: Order [...] 4.5 Performed By: #### P P, DDIMER ####[place] [id number] [facility] PT Coag (PPP) [Time] 11.9 s Normal 9.0-12.9 [facility] Comment on above: Order Comment: REDRA W Result Comment: A he matocrit value greater than 55% may lead to inaccurate results in coagulation testing. Patients having hematocrit values >55% require a special collection tube for coagulation studies. Please contact the laboratory at [phone] for redraw instructions. Performed By: #### P P, DDIMER ####[place] [id number] [facility] Creatine Kinaseon 01-09-2024 CK [Catalytic activity/Vol] 81 U/L Normal [facility] Comment on above: Performed By: #### B REWRITE EDITOR, HS TROP, BMP, CK, DIFF CBC ####[place] [id number] [facility] Creatine kinase [Enzymatic a ctivity/volume] in Serum or PlasmaOrdered By: Naima Boyd on 01-09-2024 CK [Catalytic activity/Vol] 81 U/L - [facility] Creatinine [Mass/volume] in Serum or PlasmaOrdered By: Naima Boyd on 01-09-2024 Creatinine [Mass/Vol] 1.16 mg/dL 0.70-1.30 [facility] D-Dimer High Sensitivityon 0 01-09-2024 D-Dimer High Sensitivity 1905 ng/mL High 0-243 [facility] Comment on above: Order [...] coagulation studies. Please contact the laboratory at [phone] for redraw instructions. PERFORMED BY: [address] [place] [address] PATHOLOGIST STRIPER RADHA BARRON M.D. Performed By: #### P P, DDIMER ####[address] Diff and CBCon 01-09-2024 Basophils/100 WBC (Bld) 0 % Normal 0-2 [facility] Comment on above: Performed By: #### B REWRITE EDITOR, HS TROP, BMP, CK, DIFF CBC ####[place] [id number] [facility] Eosinophils/100 WBC (Bld) 4 % High 1-3 [facility] Comment on above: Performed By: #### B REWRITE EDITOR, HS TROP, BMP, CK, DIFF CBC ####[place] [id number] [facility] Erythrocyte distribution width (RBC) [Ratio] 14.9 % High 12.0-14.8 [facility] Comment on above: Performed By: #### B REWRITE EDITOR, HS TROP, BMP, CK, DIFF CBC ####[place] [id number] [facility] Hematocrit (Bld) [Volume fraction] 41.9 % Normal 38.8-50.0 [facility] Comment on above: Performed By: #### B REWRITE EDITOR, HS TROP, BMP, CK, DIFF CBC ####[address] Hemoglobin (Bld) [Mass/Vol] 14.1 g/dL Normal 13.0-17.0 [facility] Comment on above: Performed By: #### B REWRITE EDITOR, HS TROP, BMP, CK, DIFF CBC ####[address] Lymphocytes/100 WBC (Bld) 27 % Normal 18-42 [facility] Comment on above: Performed By: #### B REWRITE EDITOR, HS TROP, BMP, CK, DIFF CBC ####[address] MCH (RBC) [Entitic mass] 32.0 pg Normal 27.5-35.2 [facility] Comment on above: Performed By: #### B REWRITE EDITOR, HS TROP, BMP, CK, DIFF CBC ####[address] MCV (RBC) [Entitic vol] 95.1 fL Normal 83.5-101 [facility] Comment on above: Performed By: #### B REWRITE EDITOR, HS TROP, BMP, CK, DIFF CBC ####[address] Mean Corpuscular HGB Conc 33.6 g/dL Normal 32.5-35.6 [facility] Comment on above: Performed By: #### B REWRITE EDITOR, HS TROP, BMP, CK, DIFF CBC ####[address] Monocytes/100 WBC (Bld) 25.58 % High 0.00-20.00 [facility] Comment on above: Result Comment: For adults in ED, MDW > 20.0 may be associated with a higher risk of sepsis during the first 12 hrs of hospital admission Performed By: #### B REWRITE EDITOR, HS TROP, BMP, CK, DIFF CBC ####[address] Monocytes/100 WBC (Bld) 7 % Normal 2-11 [facility] Comment on above: Performed By: #### B REWRITE EDITOR, HS TROP, BMP, CK, DIFF CBC ####[address] Nucleated Red Blood Cell 0 /100{WBC} Normal 0-0 [facility] Comment on above: Performed By: #### B REWRITE EDITOR, HS TROP, BMP, CK, DIFF CBC ####[address] Platelet Estimate Normal Normal Normal [facility] Comment on above: Performed By: #### B REWRITE EDITOR, HS TROP, BMP, CK, DIFF CBC ####[address] Platelet mean volume (Bld) [Entitic vol] 8.6 fL Normal 6.6-10.1 [facility] Comment on above: Performed By: #### B REWRITE EDITOR, HS TROP, BMP, CK, DIFF CBC ####[address] Platelet Morphology Normal Normal Normal [facility] Comment on above: Performed By: #### B REWRITE EDITOR, HS TROP, BMP, CK, DIFF CBC ####[address] Platelets (Bld) [#/Vol] 240 10*3/uL Normal 150-450 [facility] Comment on above: Performed By: #### B REWRITE EDITOR, HS TROP, BMP, CK, DIFF CBC ####[address] Plt Comment SEE COMMENT BELOW Normal [facility] Comment on above: Result Comment: NO C LOTS, NO CLUMPS, SHORT DRAW LFM PERFORMED BY: [facility] [address] [place] [address] PATHOLOGIST STRIPER RADHA BARRON M.D. Performed By: #### B REWRITE EDITOR, HS TROP, BMP, CK, DIFF CBC ####[address] RBC (Bld) [#/Vol] 4.41 10*6/uL Normal 3.90-5.60 [facility] Comment on above: Performed By: #### B REWRITE EDITOR, HS TROP, BMP, CK, DIFF CBC ####[address] RBC morphology finding Nom (Bld) Normal Normal Normal [facility] Comment on above: Performed By: #### B REWRITE EDITOR, HS TROP, BMP, CK, DIFF CBC ####[address] Segmented neutrophils/100 WBC (Bld) 62 % Normal 50-70 [facility] Comment on above: Performed By: #### B REWRITE EDITOR, HS TROP, BMP, CK, DIFF CBC ####[address] WBC (Bld) [#/Vol] 7.6 10*3/uL Normal 4.1-10.5 [facility] Comment on above: Performed By: #### B REWRITE EDITOR, HS TROP, BMP, CK, DIFF CBC ####[address] WBC (Bld) [#/Vol] 8.4 10*3/uL Normal 4.1-10.5 [facility] Comment on above: Performed By: #### B REWRITE EDITOR, HS TROP, BMP, CK, DIFF CBC ####[address] ECG 12 lead ECGon 01-09-2024 ECG 12 lead ECG [facility] [address] [place] [address] [place] [address] Electrocardiograph Report Signed Patient: Jeb Riddle MR#: [id number] : 1950 Acct:[id number] Age/Sex: 73 / M ADM Date: 01/09/24 Loc: ER Room: Type: [facility] ER Attending Dr: Ordering Provider: SABA Blankenship [...] By Adam Patterson DO 1828 Normal [facility] Eosinophils Auto (Bld) [#/Vo l]Ordered By: Naima Boyd on 01-09-2024 Eosinophils (Bld) [#/Vol] N/A [facility] Eosinophils/100 WBC Auto (Bl d)Ordered By: Naima Rutherfordore on 01-09-2024 Eosinophils/100 WBC (Bld) N/A [facility] Eosinophils/100 WBC Manual c nt (Bld)Ordered By: Naima Boyd on 01-09-2024 Eosinophils/100 WBC (Bld) 4 % 1-3 [facility] Erythrocyte distribution wid th Auto (RBC) [Ratio]Ordered By: Naima Boyd on 01-09-2024 Erythrocyte distribution width (RBC) [Ratio] 14.9 % 12.0-14.8 [facility] Fibrin D-dimer [Presence] in Platelet poor plasma by Latex agglutinationOrdered By: Naima Boyd on 01-09-2024 Fibrin D-dimer LA Ql (PPP) 1905 ng/mL 0-243 [facility] Comment on above: The reference range [...] coagulation studies. Please contact the laboratory at [phone] for redraw instructions. Glucose [Mass/volume] in Ser um or PlasmaOrdered By: Naima Boyd on 01-09-2024 Glucose [Mass/Vol] 95 mg/dL 70-100 [facility] Comment on above: ADA recommended refe rence rangeRandom Glucose Reference Range is dependent on time and content of last meal. Glucose of more than 200 mg/dL in a nonstressed, ambulatory subject supports the diagnosis of Diabetes Mellitus. Hematocrit Auto (Bld) [Volum e fraction]Ordered By: Naima Boyd on 01-09-2024 Hematocrit (Bld) [Volume fraction] 41.9 % 38.8-50.0 [facility] Hemoglobin [Mass/volume] in BloodOrdered By: Naima Boyd on 01-09-2024 Hemoglobin (Bld) [Mass/Vol] 14.1 g/dL 13.0-17.0 [facility] INR in Platelet poor plasma by Coagulation assayOrdered By: Naima Boyd on 01-09-2024 INR Coag (PPP) [Relative time] 1.0 {INR} [facility] Comment on above: INR Therapeutic Rang [...] RBC Auto (Bld) [#/Vol] 7.6 10*3/uL 4.1-10.5 [facility] Lymphocytes Auto (Bld) [#/Vo l]Ordered By: Naima Boyd on 01-09-2024 Lymphocytes (Bld) [#/Vol] N/A [facility] Lymphocytes/100 WBC Auto (Bl d)Ordered By: Naima Bullimore on 01-09-2024 Lymphocytes/100 WBC (Bld) N/A [facility] Lymphocytes/100 WBC Manual c nt (Bld)Ordered By: Naima Bullimore on 01-09-2024 Lymphocytes/100 WBC (Bld) 27 % 18-42 [facility] MCH Auto (RBC) [Entitic mass ]Ordered By: Naima Bullimore on 01-09-2024 MCH (RBC) [Entitic mass] 32.0 pg 27.5-35.2 [facility] MCHC Auto (RBC) [Mass/Vol]Or dered By: Naima Bullimore on 01-09-2024 MCHC (RBC) [Mass/Vol] 33.6 g/dL 32.5-35.6 [facility] MCV Auto (RBC) [Entitic vol] Ordered By: Naima Bullimore on 01-09-2024 MCV (RBC) [Entitic vol] 95.1 fL 83.5-101 [facility] Monocyte distribution width [Entitic volume] in Blood by AutomatedOrdered By: Naima Bullimore on 01-09-2024 Monocyte distribution width Auto (Bld) [Entitic vol] 25.58 % 0.00-20.00 [facility] Comment on above: For adults in ED, MD W > 20.0 may be associated with a higher risk of sepsis during the first 12 hrs of hospital admission Monocytes Auto (Bld) [#/Vol] Ordered By: Naima Bullimore on 01-09-2024 Monocytes (Bld) [#/Vol] N/A [facility] Monocytes/100 WBC Auto (Bld) Ordered By: Naima Bullimore on 01-09-2024 Monocytes/100 WBC (Bld) N/A [facility] Monocytes/100 WBC Manual cnt (Bld)Ordered By: Naima Bullimore on 01-09-2024 Monocytes/100 WBC (Bld) 7 % 2-11 [facility] Natriuretic peptide B [Mass/ Vol]Ordered By: Naima Bullimore on 01-09-2024 Natriuretic peptide B (Bld) [Mass/Vol] 172.0 pg/mL 5-100 [facility] Neutrophils Auto (Bld) [#/Vo l]Ordered By: Naima Bullimore on 01-09-2024 Neutrophils (Bld) [#/Vol] N/A [facility] Neutrophils/100 WBC Auto (Bl d)Ordered By: Naima Bullimore on 01-09-2024 Neutrophils/100 WBC (Bld) N/A [facility] No Panel InformationOrdered By: Naima Bullimore on 01-09-2024 Estimated GFR (CKD-EPI) > 60.0 mL/Min [facility] Creatinine Clearance (Chem 64.96 [facility] Platelet Comment See comment below F [facility] Comment on above: NO CLOTS, NO CLUMPS, SHORT DRAW LFM Nucleated RBC/100 WBC Manual cnt (Bld) [Ratio]Ordered By: Naima Bullimore on 01-09-2024 Nucleated RBC/100 WBC (Bld) [Ratio] 0 /100{WBC} 0-0 [facility] Nucleated erythrocytes [Pres ence] in Blood by Automated countOrdered By: Naima Godwinimore on 01-09-2024 Nucleated RBC Auto Ql (Bld) N/A [facility] Platelet adequacy [Presence] in Blood by Light microscopyOrdered By: Naima Bullimore on 01-09-2024 Platelets LM Ql (Bld) Normal Normal [facility] Platelet mean volume Auto (B ld) [Entitic vol]Ordered By: Naima Bullimore on 01-09-2024 Platelet mean volume (Bld) [Entitic vol] 8.6 fL 6.6-10.1 [facility] Platelet morphology finding [Identifier] in BloodOrdered By: Naima Bullimore on 01-09-2024 Platelet morphology finding Nom (Bld) Normal Normal [facility] Platelets Auto (Bld) [#/Vol] Ordered By: Naima Bullimore on 01-09-2024 Platelets (Bld) [#/Vol] 240 10*3/uL 150-450 [facility] Potassium [Moles/volume] in Serum or PlasmaOrdered By: Naima Godwinimore on 01-09-2024 Potassium [Moles/Vol] 3.9 mmol/L 3.5-5.1 [facility] Prothrombin time (PT)Ordered By: Naima Boyd on 01-09-2024 PT Coag (PPP) [Time] 11.9 s 9.0-12.9 [facility] Comment on above: A hematocrit value g reater than 55% may lead to inaccurate results in coagulation testing. Patients having hematocrit values >55% require a special collection tube for coagulation studies. Please contact the laboratory at [phone] for redraw instructions. RBC Auto (Bld) [#/Vol]Ordere d By: Naima Boyd on 01-09-2024 RBC (Bld) [#/Vol] 4.41 10*6/uL 3.90-5.60 [facility] RBC morphologyOrdered By: Sabine Boyd on 01-09-2024 RBC morphology finding Nom (Bld) Normal Normal [facility] Redraw Potassiumon Potassium [Moles/Vol] 3.9 mmol/L Normal 3.5-5.1 [facility] Comment on above: Result Comment: PERF ORMED BY: [facility] [address] [place] [address] PATHOLOGIST STRIPER RADHA BARRON M.D. Performed By: #### R EDRAW K ####[facility] [id number] [place] [id number] [facility] Segmented neutrophils/100 WB C Manual cnt (Bld)Ordered By: Naima Boyd on 01-09-2024 Segmented neutrophils/100 WBC (Bld) 62 % 50-70 [facility] Serum or plasma anion gap de terminationOrdered By: Naima Boyd on 01-09-2024 Anion gap [Moles/Vol] TNP [facility] Comment on above: Test not performed Sodium [Moles/volume] in Ser um or PlasmaOrdered By: Naima Boyd on 01-09-2024 Sodium [Moles/Vol] 142 mmol/L 136-145 [facility] Troponin I High Sensitivityo n 01-09-2024 Troponin I High Sensitivity 13.1 pg/mL Normal 0.0-20.0 [facility] Comment on above: Result Comment: PERF ORMED BY: [place] [address] PATHOLOGIST STRIPER RADHA BARRON M.D. Performed By: #### H S TROP #### [facility] [address] [place] [address] [facility] Troponin I High Sensitivity 12.5 pg/mL Normal 0.0-20.0 [facility] Comment on above: Result Comment: PERF ORMED BY: [place] [address] PATHOLOGIST STRIPER RADHA BARRON M.D. Performed By: #### B REWRITE EDITOR, HS TROP, BMP, CK, DIFF CBC ####[facility] [address] [place] [address] [facility] Troponin I.cardiac [Mass/vol ume] in Serum or Plasma by Detection limit <= 0.01 ng/Ordered By: Naima Boyd on 01-09-2024 Troponin I.cardiac DL <= 0.01 ng/mL [Mass/Vol] 13.1 pg/mL 0.0-20.0 [facility] Urea nitrogen [Mass/volume] in Serum or PlasmaOrdered By: Naima Boyd on 01-09-2024 Urea nitrogen [Mass/Vol] 20 mg/dL 7-25 [facility] WBC Auto (Bld) [#/Vol]Ordere d By: Naima Boyd on 01-09-2024 WBC (Bld) [#/Vol] 8.4 10*3/uL 4.1-10.5 [facility] XR chest 2V*on 01-09-2024 XR chest 2V* [facility] Main [place] [address] [place] [address] XRay Report Signed Patient: Jeb Riddle MR#: [id number] : 1950 Acct:[id number] Age/Sex: 73 / M ADM Date: 01/09/24 Loc: ER Room: Type: [facility] ER Attending Dr: Copies to: SABA Blankenship [...] Jeb Collins M.D.01/09/2024 4:11 PM Dictation Location: [facility]--13 Transcribed By: KAROLINA 01/09/24 161 Dictated By: Jeb Collins II, MD 01/09/24 1610 Signed By: 01/09/24 1611 Normal [facility] ECG 12 lead ECGon 12-18-2023 ECG 12 lead ECG [facility] [place] [address] Electrocardiograph Report Signed Patient: Jeb Riddle MR#: [id number] : 1950 Acct:[id number] Age/Sex: 73 / M ADM Date: 12/18/23 Loc: ER Room: Type: [facility] ER Attending Dr: Ordering Provider: Marie [...] was found Confirmed by RAMIRO CORTEZ DO ([id number]) on 12/18/2023 4:44:01 PM Referred By: Electronically Signed By:RAMIRO CORTEZ DO Transcribed By: MUS Signed By Ramiro Cortez DO 12/17 1644 Normal [facility] Office Visiton 12-09-2023 Follow-up visit [id number] Jeb Riddle 1950 M Date Provider Department Center 12/09/2023 JESSICA JAMISON MISSY Lori Corey Family History Problem Relation Age of Onset Diabetes Mother Coronary artery disease Mother Heart attack Father Diabetes Father Coronary artery disease Father Family Status - Relation Status Age at Mother Father Level of Service:[address]63 [place] OFFICE/OUTPATIENT ESTABLISHED MOD MDM 30 MIN Reason for Visit and Comments: Follow-up [758275] - [address] [facility] Activated partial thrombopla stin time (aPTT) in platelet poor plasma by coagulation aOrdered By: Ramiro Cortez on 03-03-2023 aPTT Coag (PPP) [Time] 29.7 s 25.1-36.5 [facility] B-Type Natriuretic Peptideon 03-03-2023 Natriuretic peptide B (Bld) [Mass/Vol] 52.0 pg/mL Normal 5-100 [facility] Comment on above: Result Comment: PERF ORMED BY: [facility] [address] [place] [address] PATHOLOGIST STRIPER RADHA BARRON M.D. Performed By: #### C BC, CK, PT, PTT, BMP, HS TROP, BNP ####[place] [id number] [address] Basic Metabolic Panelon 02-13 Anion gap [Moles/Vol] 10.6 mmol/L Normal 6.0-15.0 [facility] Comment on above: Performed By: #### C BC, CK, PT, PTT, BMP, HS TROP, BNP ####[place] [id number] [address] Calcium [Mass/Vol] 8.6 mg/dL Normal 8.6-10.3 [facility] Comment on above: Performed By: #### C BC, CK, PT, PTT, BMP, HS TROP, BNP ####[facility] Chloride [Moles/Vol] 108 mmol/L High 98-107 [facility] Comment on above: Performed By: #### C BC, CK, PT, PTT, BMP, HS TROP, BNP ####[address] CO2 [Moles/Vol] 24.6 mmol/L Normal 21.0-31.0 [facility] Comment on above: Performed By: #### C BC, CK, PT, PTT, BMP, HS TROP, BNP ####[address] Creatinine [Mass/Vol] 1.19 mg/dL Normal 0.70-1.30 [facility] Comment on above: Performed By: #### C BC, CK, PT, PTT, BMP, HS TROP, BNP ####[address] Creatinine Clr Calc Pharmacy 55.29 Normal [facility] Comment on above: Result Comment: PERF ORMED BY: [place] [address] PATHOLOGIST STRIPER RADHA BARRON M.D. Performed By: #### C BC, CK, PT, PTT, BMP, HS TROP, BNP ####[address] GFR/1.73 sq M.predicted MDRD (S/P/Bld) [Vol rate/Area] mL/min/{1.73_m2} Normal [facility] Comment on above: Performed By: #### C BC, CK, PT, PTT, BMP, HS TROP, BNP ####[address] Glucose [Mass/Vol] 93 mg/dL Normal 70-100 [facility] Comment on above: Result Comment: [place] Glucose Reference Range is dependent on time and content of last meal. Glucose of more than 200 mg/dL in a nonstressed, ambulatory subject supports the diagnosis of Diabetes Mellitus. ADA recommended reference range Performed By: #### C BC, CK, PT, PTT, BMP, HS TROP, BNP ####[address] Potassium [Moles/Vol] 4.2 mmol/L Normal 3.5-5.1 [facility] Comment on above: Performed By: #### C BC, CK, PT, PTT, BMP, HS TROP, BNP ####[place] [id number] [address] Sodium [Moles/Vol] 139 mmol/L Normal 136-145 [facility] Comment on above: Performed By: #### C BC, CK, PT, PTT, BMP, HS TROP, BNP ####[place] [id number] [address] Urea nitrogen [Mass/Vol] 17 mg/dL Normal 7-25 [facility] Comment on above: Performed By: #### C BC, CK, PT, PTT, BMP, HS TROP, BNP ####[place] [id number] [address] Basophils Auto (Bld) [#/Vol] Ordered By: Ramiro Crotez on 03-03-2023 Basophils (Bld) [#/Vol] 0.0 10*3/uL 0.0-0.2 [facility] Basophils/100 WBC Auto (Bld) Ordered By: Ramiro Cortez on 03-03-2023 Basophils/100 WBC (Bld) 0.4 % . [facility] Calcium [Mass/volume] in Ser um or PlasmaOrdered By: Ramiro Cortez on 03-03-2023 Calcium [Mass/Vol] 8.6 mg/dL 8.6-10.3 [facility] Carbon dioxide, total [Moles /volume] in Serum or PlasmaOrdered By: Ramiro Cortez on 03-03-2023 CO2 [Moles/Vol] 24.6 mmol/L 21.0-31.0 [facility] Chloride [Moles/volume] in S pooja or PlasmaOrdered By: Ramiro Cortez on 03-03-2023 Chloride [Moles/Vol] 108 mmol/L 98-107 [facility] Complete Blood Count Auto Di ffon 03-03-2023 Basophils (Bld) [#/Vol] 0.0 10*3/uL Normal 0.0-0.2 [facility] Comment on above: Result Comment: PERF ORMED BY: [place] [address] PATHOLOGIST STRIPER RADHA BARRON M.D. Performed By: #### C BC, CK, PT, PTT, BMP, HS TROP, BNP #### [address] Basophils/100 WBC (Bld) 0.4 % Normal . [facility] Comment on above: Performed By: #### C BC, CK, PT, PTT, BMP, HS TROP, BNP #### [address] Eosinophils (Bld) [#/Vol] 0.2 10*3/uL Normal 0.0-0.45 [facility] Comment on above: Performed By: #### C BC, CK, PT, PTT, BMP, HS TROP, BNP #### [address] Eosinophils/100 WBC (Bld) 2.4 % Normal . [facility] Comment on above: Performed By: #### C BC, CK, PT, PTT, BMP, HS TROP, BNP #### [address] Erythrocyte distribution width (RBC) [Ratio] 13.0 % Normal 12.0-14.8 [facility] Comment on above: Performed By: #### C BC, CK, PT, PTT, BMP, HS TROP, BNP #### [address] Hematocrit (Bld) [Volume fraction] 38.3 % Low 38.8-50.0 [facility] Comment on above: Performed By: #### C BC, CK, PT, PTT, BMP, HS TROP, BNP #### [address] Hemoglobin (Bld) [Mass/Vol] 12.9 g/dL Low 13.0-17.0 [facility] Comment on above: Performed By: #### C BC, CK, PT, PTT, BMP, HS TROP, BNP #### [address] Lymphocytes (Bld) [#/Vol] 2.6 10*3/uL Normal 1.00-4.8 [facility] Comment on above: Performed By: #### C BC, CK, PT, PTT, BMP, HS TROP, BNP #### [address] Lymphocytes/100 WBC (Bld) 28.3 % Normal . [facility] Comment on above: Performed By: #### C BC, CK, PT, PTT, BMP, HS TROP, BNP #### [address] MCH (RBC) [Entitic mass] 30.8 pg Normal 27.5-35.2 [facility] Comment on above: Performed By: #### C BC, CK, PT, PTT, BMP, HS TROP, BNP #### [address] MCV (RBC) [Entitic vol] 91.9 fL Normal 83.5-101 [facility] Comment on above: Performed By: #### C BC, CK, PT, PTT, BMP, HS TROP, BNP #### [address] Mean Corpuscular HGB Conc 33.6 g/dL Normal 32.5-35.6 [facility] Comment on above: Performed By: #### C BC, CK, PT, PTT, BMP, HS TROP, BNP #### [address] Monocytes (Bld) [#/Vol] 0.6 10*3/uL Normal 0.0-0.8 [facility] Comment on above: Performed By: #### C BC, CK, PT, PTT, BMP, HS TROP, BNP #### [address] Monocytes/100 WBC (Bld) 24.67 % High 0.00-20.00 [facility] Comment on above: Result Comment: For adults in ED, MDW > 20.0 may be associated with a higher risk of sepsis during the first 12 hrs of hospital admission Performed By: #### C BC, CK, PT, PTT, BMP, HS TROP, BNP #### [address] Monocytes/100 WBC (Bld) 6.5 % Normal . [facility] Comment on above: Performed By: #### C BC, CK, PT, PTT, BMP, HS TROP, BNP #### [address] Neutrophils (Bld) [#/Vol] 5.7 10*3/uL Normal 1.8-7.7 [facility] Comment on above: Performed By: #### C BC, CK, PT, PTT, BMP, HS TROP, BNP #### [address] Neutrophils/100 WBC (Bld) 62.4 % Normal . [facility] Comment on above: Performed By: #### C BC, CK, PT, PTT, BMP, HS TROP, BNP #### [address] NRBC% 0.1 /100{WBC} Normal 0-0.5 [facility] Comment on above: Performed By: #### C BC, CK, PT, PTT, BMP, HS TROP, BNP #### [address] Platelet mean volume (Bld) [Entitic vol] 8.2 fL Normal 6.6-10.1 [facility] Comment on above: Performed By: #### C BC, CK, PT, PTT, BMP, HS TROP, BNP #### [place] [address] [place] Platelets (Bld) [#/Vol] 234 10*3/uL Normal 150-450 [facility] Comment on above: Performed By: #### C BC, CK, PT, PTT, BMP, HS TROP, BNP #### [place] [address] [place] RBC (Bld) [#/Vol] 4.17 10*6/uL Normal 3.90-5.60 [facility] Comment on above: Performed By: #### C BC, CK, PT, PTT, BMP, HS TROP, BNP #### [facility] [address] WBC (Bld) [#/Vol] 9.2 10*3/uL Normal 4.1-10.5 [facility] Comment on above: Performed By: #### C BC, CK, PT, PTT, BMP, HS TROP, BNP #### [facility] [address] [place] [id number] [facility] Creatine Kinaseon 03-03-2023 CK [Catalytic activity/Vol] 125 U/L Normal 30- [facility] Comment on above: Performed By: #### C BC, CK, PT, PTT, BMP, HS TROP, BNP ####[facility] [place] [address] Creatine kinase [Enzymatic a ctivity/volume] in Serum or PlasmaOrdered By: Ramiro Cortez on 03-03-2023 CK [Catalytic activity/Vol] 125 U/L 30- [facility] Creatinine [Mass/volume] in Serum or PlasmaOrdered By: Ramiro Cortez on 03-03-2023 Creatinine [Mass/Vol] 1.19 mg/dL 0.70-1.30 [facility] ECG 12 lead ECGon 03-03-2023 ECG 12 lead ECG [facility] Main [place] [address] [place] [address] Electrocardiograph Report Signed Patient: Jeb Riddle MR#: [id number] : 1950 Acct:[id number] Age/Sex: 72 / M ADM Date: 03/03/23 Loc: ER Room: Type: [facility] ER Attending Dr: Ordering Provider: Ramiro [...] ECGs available Confirmed by RAMIRO CORTEZ DO ([id number]) on 03/03/2023 8:14:27 PM Referred By: Electronically Signed By:RAMIRO CORTEZ DO Transcribed By: MUS Signed By Ramiro Cortez DO 03/03 Normal [facility] Eosinophils Auto (Bld) [#/Vo l]Ordered By: Ramiro Cortez on 03-03-2023 Eosinophils (Bld) [#/Vol] 0.2 10*3/uL 0.0-0.45 [facility] Eosinophils/100 WBC Auto (Bl d)Ordered By: Ramiro Cortez on 03-03-2023 Eosinophils/100 WBC (Bld) 2.4 % . [facility] Erythrocyte distribution wid th Auto (RBC) [Ratio]Ordered By: Ramiro Cortez on 03-03-2023 Erythrocyte distribution width (RBC) [Ratio] 13.0 % 12.0-14.8 [facility] Glucose [Mass/volume] in Ser um or PlasmaOrdered By: Ramiro Cortez on 03-03-2023 Glucose [Mass/Vol] 93 mg/dL 70-100 [facility] Comment on above: ADA recommended refe rence rangeRandom Glucose Reference Range is dependent on time and content of last meal. Glucose of more than 200 mg/dL in a nonstressed, ambulatory subject supports the diagnosis of Diabetes Mellitus. Hematocrit Auto (Bld) [Volum e fraction]Ordered By: Ramiro Cortez on 03-03-2023 Hematocrit (Bld) [Volume fraction] 38.3 % 38.8-50.0 [facility] Hemoglobin [Mass/volume] in BloodOrdered By: Ramiro Cortez on 03-03-2023 Hemoglobin (Bld) [Mass/Vol] 12.9 g/dL 13.0-17.0 [facility] Laboratory - CoagulationOrde red By: Ramiro Cortez on 03-03-2023 PT Coag (PPP) [Time] 12.3 s 9.0-12.9 [facility] Leukocytes [#/volume] correc ava for nucleated erythrocytes in Blood by Automated counOrdered By: Ramiro Cortez on 03-03-2023 WBC corrected for nucl RBC Auto (Bld) [#/Vol] 9.2 10*3/uL 4.1-10.5 [facility] Lymphocytes Auto (Bld) [#/Vo l]Ordered By: Ramiro Cortez on 03-03-2023 Lymphocytes (Bld) [#/Vol] 2.6 10*3/uL 1.00-4.8 [facility] Lymphocytes/100 WBC Auto (Bl d)Ordered By: Ramiro Cortez on 03-03-2023 Lymphocytes/100 WBC (Bld) 28.3 % . [facility] MCH Auto (RBC) [Entitic mass ]Ordered By: Ramiro Cortez on 03-03-2023 MCH (RBC) [Entitic mass] 30.8 pg 27.5-35.2 [facility] MCHC Auto (RBC) [Mass/Vol]Or dered By: Ramiro Cortez on 03-03-2023 MCHC (RBC) [Mass/Vol] 33.6 g/dL 32.5-35.6 [facility] MCV Auto (RBC) [Entitic vol] Ordered By: Ramiro Cortez on 03-03-2023 MCV (RBC) [Entitic vol] 91.9 fL 83.5-101 [facility] Monocyte distribution width [Entitic volume] in Blood by AutomatedOrdered By: Ramiro Cortez on 03-03-2023 Monocyte distribution width Auto (Bld) [Entitic vol] 24.67 % 0.00-20.00 [facility] Comment on above: For adults in ED, MD W > 20.0 may be associated with a higher risk of sepsis during the first 12 hrs of hospital admission Monocytes Auto (Bld) [#/Vol] Ordered By: Ramiro Cortez on 03-03-2023 Monocytes (Bld) [#/Vol] 0.6 10*3/uL 0.0-0.8 [facility] Monocytes/100 WBC Auto (Bld) Ordered By: Ramiro Cortez on 03-03-2023 Monocytes/100 WBC (Bld) 6.5 % . [facility] Natriuretic peptide B [Mass/ Vol]Ordered By: Ramiro Cortez on 03-03-2023 Natriuretic peptide B (Bld) [Mass/Vol] 52.0 pg/mL 5-100 [facility] Neutrophils Auto (Bld) [#/Vo l]Ordered By: Ramiro Cortez on 03-03-2023 Neutrophils (Bld) [#/Vol] 5.7 10*3/uL 1.8-7.7 [facility] Neutrophils/100 WBC Auto (Bl d)Ordered By: Ramiro Cortez on 03-03-2023 Neutrophils/100 WBC (Bld) 62.4 % . [facility] No Panel InformationOrdered By: Ramiro Cortez on 03-03-2023 Estimated GFR (CKD-EPI) > 60.0 mL/Min [facility] Creatinine Clearance (Chem 55.29 [facility] Nucleated erythrocytes [Pres ence] in Blood by Automated countOrdered By: Ramiro Cortez on 03-03-2023 Nucleated RBC Auto Ql (Bld) 0.1 /100{WBC} 0-0.5 [facility] Partial Thromboplastin Timeo n 03-03-2023 aPTT Coag (Bld) [Time] 29.7 s Normal 25.1-36.5 [facility] Comment on above: Result Comment: PERF ORMED BY: [place] [address] PATHOLOGIST STRIPER RADHA BARRON M.D. Performed By: #### C BC, CK, PT, PTT, BMP, HS TROP, BNP #### [address] Platelet mean volume Auto (B ld) [Entitic vol]Ordered By: Ramiro Cortez on 03-03-2023 Platelet mean volume (Bld) [Entitic vol] 8.2 fL 6.6-10.1 [facility] Platelet poor plasma interna tional normalized ratio (INR) by coagulation assay (relatOrdered By: Ramiro Cortez on 03-03-2023 INR Coag (PPP) [Relative time] 1.1 {INR} [facility] Comment on above: INR Therapeutic Rang [...] 03-03-2023 Platelets (Bld) [#/Vol] 234 10*3/uL 150-450 [facility] Potassium [Moles/volume] in Serum or PlasmaOrdered By: Ramiro Cortez on 03-03-2023 Potassium [Moles/Vol] 4.2 mmol/L 3.5-5.1 [facility] Prothrombin Time INRon 03-03 INR Coag (PPP) [Relative time] 1.1 {INR} Normal [facility] Comment on above: Result [...] PT, PTT, BMP, HS TROP, BNP #### [facility] [address] PT Coag (PPP) [Time] 12.3 s Normal 9.0-12.9 [facility] Comment on above: Performed By: #### C BC, CK, PT, PTT, BMP, HS TROP, BNP #### [facility] [address] RBC Auto (Bld) [#/Vol]Ordere d By: Ramiro Cortez on 03-03-2023 RBC (Bld) [#/Vol] 4.17 10*6/uL 3.90-5.60 [facility] Serum or plasma anion gap de terminationOrdered By: Ramiro Cortez on 03-03-2023 Anion gap [Moles/Vol] 10.6 mmol/L 6.0-15.0 [facility] Sodium [Moles/volume] in Ser um or PlasmaOrdered By: Ramiro Cortez on 03-03-2023 Sodium [Moles/Vol] 139 mmol/L 136-145 [facility] Troponin I High Sensitivityo n 03-03-2023 Troponin I High Sensitivity 7.6 pg/mL Normal 0.0-20.0 [facility] Comment on above: Result Comment: PERF ORMED BY: [place] [address] PATHOLOGIST STRIPER RADHA BARRON M.D. Performed By: #### C BC, CK, PT, PTT, BMP, HS TROP, BNP ####[facility] [id number] Troponin I.cardiac [Mass/vol ume] in Serum or Plasma by Detection limit <= 0.01 ng/Ordered By: Ramiro Cortez on 03-03-2023 Troponin I.cardiac DL <= 0.01 ng/mL [Mass/Vol] 7.6 pg/mL 0.0-20.0 [facility] Urea nitrogen [Mass/volume] in Serum or PlasmaOrdered By: Ramiro Cortez on 03-03-2023 Urea nitrogen [Mass/Vol] 17 mg/dL 7-25 [facility] WBC Auto (Bld) [#/Vol]Ordere d By: Ramiro Cortez on 03-03-2023 WBC (Bld) [#/Vol] 9.2 10*3/uL 4.1-10.5 [facility] XR chest 2V*on 03-03-2023 XR chest 2V* [facility] Main [place] [address] [place] [address] XRay Report Signed Patient: Jeb Riddle MR#: [id number] : 1950 Acct:[id number] Age/Sex: 72 / M ADM Date: 03/03/23 Loc: ER Room: Type: [facility] ER Attending Dr: Copies to: Ramiro Cortez [...] Ivonne Zavala M.D.03/03/2023 12:46 PM Dictation Location: [place] [address] Transcribed By: [facility] 03/03/23 1246 Dictated By: Ivonne Zavala MD 03/03/23 1245 Signed By: 03/03/23 1246 Normal [facility] CBC AUTO DIFFon 01-11-2023 BASO # 0.0 103/ul Normal 0.0-0.1 [facility] Comment on above: Performed By: #### C BC #### [facility] [address] [place] [address] Dr. Andrea Garcia Basophils/100 WBC (Bld) 0.0 % Critically low 0.2-2.0 [facility] Comment on above: Performed By: #### C BC #### [facility] [address] [place] [address] Dr. Andrea Garcia EO # 0.0 103/ul Normal 0.0-0.7 [facility] Comment on above: Performed By: #### C BC #### [facility] [address] [place] [address] Dr. Andrea Garcia Eosinophils/100 WBC (Bld) 0.0 % Critically low 0.9-7.0 [facility] Comment on above: Performed By: #### C BC #### [facility] [address] [place] [address] Dr. Andrea Garcia Erythrocyte distribution width (RBC) [Ratio] 12.8 % Normal 11.0-15.0 [facility] [place] Comment on above: Performed By: #### C BC #### [facility] [place] [facility] [address] [place] [address] Dr. Andrea Garcia Hematocrit (Bld) [Volume fraction] 36.2 % Critically low 42.0-54.0 [facility] Comment on above: Performed By: #### C BC #### [facility] [place] [facility] [address] [place] [address] Dr. Andrea Garcia Hemoglobin (Bld) [Mass/Vol] 12.8 g/dL Critically low 14.0-18.0 [facility] Comment on above: Performed By: #### C BC #### [facility] [place] [facility] [address] [place] [address] Dr. Andrea Garcia IG # 0.03 10e3/ul Normal 0.00-0.03 [facility] Comment on above: Performed By: #### C BC #### [facility] [place] [facility] [address] [place] [address] Dr. Andrea Garcia IG % 0.4 % Normal 0.0-0.5 [facility] Comment on above: Performed By: #### C BC #### [facility] [place] [facility] [address] [place] [address] Dr. Andrea Garcia LYMPH # 1.1 103/ul Critically low 1.2-3.8 [facility] Comment on above: Performed By: #### C BC #### [facility] [place] [facility] [address] [place] [address] Dr. Andrea Garcia Lymphocytes/100 WBC (Bld) 15.3 % Critically low 20.5-60.0 [facility] Comment on above: Performed By: #### C BC #### [facility] [place] [facility] [address] [place] [address] Dr. Andrea Garcia MANUAL DIFF REQ NO Normal [facility] [place] Comment on above: Performed By: #### C BC #### [facility] [place] [facility] [address] [place] [address] Dr. Andrea Garcia MCH (RBC) [Entitic mass] 31.3 pg Normal 25.9-34.0 [facility] [place] Comment on above: Performed By: #### C BC #### [facility] [place] [facility] [address] [place] [address] Dr. Andrea Garcia MCHC (RBC) [Mass/Vol] 35.4 g/dL Critically high 29.9-35.2 [facility] [place] Comment on above: Performed By: #### C BC #### [facility] [place] [facility] [address] [address] [address] Andrea Garcia MCV (RBC) [Entitic vol] 88.5 fL Normal 80.0-94.0 [facility] Comment on above: Performed By: #### C BC #### [facility] [place] [facility] [address] [address] [address] Andrea Garcia MONO # 0.1 103/ul Critically low 0.3-0.8 [facility] Comment on above: Performed By: #### C BC #### [facility] [place] [facility] [address] [address] [address] Andrea Garcia Monocytes/100 WBC (Bld) 0.7 % Critically low 1.7-12.0 [facility] Comment on above: Performed By: #### C BC #### [facility] [place] [facility] [address] [place] [address] Dr. Andrea Garcia NEUT # 6.0 103/ul Normal 1.4-6.5 [facility] Comment on above: Performed By: #### C BC #### [facility] [place] [facility] [address] [place] [address] Dr. Andrea Garcia Neutrophils/100 WBC (Bld) 83.6 % Critically high 43.0-75.0 [facility] Comment on above: Performed By: #### C BC #### [facility] [place] [facility] [address] [place] [address] Dr. Andrea Garcia Platelet mean volume (Bld) [Entitic vol] 10.1 fL Normal 9.5-13.5 [facility] [place] Comment on above: Performed By: #### C BC #### [facility] [place] [facility] [address] [place] [address] Dr. Andrea Garcia PLT 216 103/ul Normal 150-450 [facility] [place] Comment on above: Performed By: #### C BC #### [facility] [place] [facility] [address] [place] [address] Dr. Andrea Garcia RBC 4.09 106/ul Critically low 4.70-6.10 [facility] [place] Comment on above: Performed By: #### C BC #### [facility] [place] [facility] [address] [place] [address] Dr. Andrea Garcia WBC 7.2 103/ul Normal 4.0-11.0 [facility] Comment on above: Performed By: #### C BC #### [facility] [place] [facility] [address] [place] [address] Dr. Andrea Garcia PROF 14(COMP METB)on 023 Albumin [Mass/Vol] 2.8 g/dL Critically low 3.4-5.0 [facility] Comment on above: Performed By: #### C MP #### [facility] [place] [facility] [address] [place] [address] Dr. Andrea Garcia Albumin/Globulin [Mass ratio] 0.8 {ratio} Normal [facility] Comment on above: Performed By: #### C MP #### [facility] [place] [facility] [address] [place] [address] Dr. Andrea Garcia ALP [Catalytic activity/Vol] 64 U/L Normal 46-116 [facility] Comment on above: Performed By: #### C MP #### [facility] [place] [facility] [address] [place] [address] Dr. Andrea Garcia ALT [Catalytic activity/Vol] 27 U/L Normal 16-63 [facility] Comment on above: Performed By: #### C MP #### [facility] [place] [facility] [address] [place] [address] Dr. Andrea Garcia Anion gap [Moles/Vol] 12.9 mmol/L Normal [facility] Comment on above: Performed By: #### C MP #### [facility] [place] [facility] [address] [place] [address] Dr. Andrea Garcia AST [Catalytic activity/Vol] 16 U/L Normal 15-37 [facility] Comment on above: Performed By: #### C MP #### [facility] [place] [facility] [address] [place] [address] Dr. Andrea Garcia Bilirubin [Mass/Vol] 0.4 mg/dL Normal 0.2-1.0 [facility] Comment on above: Performed By: #### C MP #### [facility] [place] [facility] [address] [place] [address] Dr. Andrea Garcia Calcium [Mass/Vol] 8.2 mg/dL Critically low 8.5-10.1 [facility] Comment on above: Performed By: #### C MP #### [facility] [place] [facility] [address] [place] [address] Dr. Andrea Garcia Chloride [Moles/Vol] 107 mmol/L Normal 98-107 [facility] Comment on above: Performed By: #### C MP #### [facility] [place] [facility] [address] [place] [address] Dr. Andrea Garcia CO2 [Moles/Vol] 24.2 mmol/L Normal 21.0-32.0 [facility] Comment on above: Performed By: #### C MP #### [facility] [place] [facility] [address] [place] [address] Dr. Andrea Garcia Creatinine [Mass/Vol] 1.07 mg/dL Normal 0.70-1.30 [facility] Comment on above: Performed By: #### C MP #### [facility] [place] [facility] [address] [place] [address] Dr. Andrea Garcia EGFR-AF URUGUAYAN >60 Normal >=60 [facility] Comment on above: Performed By: #### C MP #### [facility] [place] [facility] [address] [place] [address] Dr. Andrea Garcia EGFR-NON AF URUGUAYAN >60 Normal >=60 [facility] Comment on above: Performed By: #### C MP #### [facility] [place] [facility] [address] [place] [address] Dr. Andrea Garcia Globulin (S) [Mass/Vol] 3.5 g/dL Normal [facility] Comment on above: Performed By: #### C MP #### [facility] [place] [facility] [address] [place] [address] Dr. Andrea Garcia Glucose [Mass/Vol] 164 mg/dL Critically high 74-106 [facility] Comment on above: Performed By: #### C MP #### [facility] [place] [facility] [address] [place] [address] Dr. Andrea Garcia Potassium [Moles/Vol] 4.1 mmol/L Normal 3.5-5.1 [facility] Comment on above: Performed By: #### C MP #### [facility] [place] [facility] [address] [place], [place] [address] Dr. Andrea Garcia Protein [Mass/Vol] 6.3 g/dL Critically low 6.4-8.2 [facility] [place] Comment on above: Performed By: #### C MP #### [facility] [place] [facility] [address] [place], [place] [address] Dr. Andrea Garcia Sodium [Moles/Vol] 140 mmol/L Normal 136-145 [facility] Comment on above: Performed By: #### C MP #### [facility] [place] [facility] [address] [place], [place] [address] Dr. Andrea Garcia Urea nitrogen [Mass/Vol] 16.0 mg/dL Normal 7.0-18.0 [facility] Comment on above: Performed By: #### C MP #### [facility] [place] [facility] [address] [address] [address] Andrea Garcia Urea nitrogen/Creatinine [Mass ratio] 15.0 mg/mg Normal [facility] Comment on above: Performed By: #### C MP #### [facility] [place] [facility] [address] [place], [place] [address] Dr. Andrea Garcia XR KUB 1 VIEWon [...] ROBERT DAVENPORT Date: 2023-01-11 06:56 Normal [facility] [place] AMYLASEon 01-10-2023 Amylase [Catalytic activity/Vol] 56 U/L Normal 25-115 [facility] [place] Comment on above: Performed By: #### C MADM, CMP, DAMIEN, LIPA ####[facility] [place] [address] [place], [place] [address]Dr. Andrea Garcia CARDIAC JEB 3-6on CK [Catalytic activity/Vol] 92 U/L Normal 39-308 [facility] Comment on above: Performed By: #### C MREP #### [facility] [place] [facility] [address] [address] [address] Andrea Garcia CK.MB [Mass/Vol] 1.66 ng/mL Normal <=3.60 [facility] Comment on above: Performed By: #### C MREP #### [facility] [place] [facility] [address] [address] [address] Andrea Garcia HSTROP 12.8 pg/mL Normal 4.0-76.1 [facility] Comment on above: Result Comment: CUT- OFF POINTS HAVE BEEN ESTABLISHED BASED ON THE FOURTH UNIVERSAL DEFINITIONS OF MYOCARDIAL INFARCTION. THE UPPER REFERENCE LIMIT (URL) OF TROPONIN, DEFINED THE 99TH PERCENTILE OF cTnI DISTRIBUTION IN A REFERENCE POPULATION, HAS BEEN CONFIRMED THE DECISION THRESHOLD FOR DE DIAGNOSIS. Performed By: #### C MREP #### [facility] [place] [facility] [address] [place] [address] Dr. Andrea Garcia CK [Catalytic activity/Vol] 72 U/L Normal 39-308 [facility] Comment on above: Performed By: #### C MREP #### [facility] [place] [facility] [address] [place] [address] Dr. Andrea RUBALCAVA.MB [Mass/Vol] 1.89 ng/mL Normal <=3.60 [facility] Comment on above: Performed By: #### C MREP #### [facility] [place] [facility] [address] [place] [address] Dr. Andrea Garcia HSTROP 13.5 pg/mL Normal 4.0-76.1 [facility] Comment on above: Result Comment: CUT- OFF POINTS HAVE BEEN ESTABLISHED BASED ON THE FOURTH UNIVERSAL DEFINITIONS OF MYOCARDIAL INFARCTION. THE UPPER REFERENCE LIMIT (URL) OF TROPONIN, DEFINED THE 99TH PERCENTILE OF cTnI DISTRIBUTION IN A REFERENCE POPULATION, HAS BEEN CONFIRMED THE DECISION THRESHOLD FOR DE DIAGNOSIS. Performed By: #### C MREP #### [facility] [place] [facility] [address] [place] [address] Dr. Andrea Garcia CARDIAC JEB ADMITon 023 CK [Catalytic activity/Vol] 85 U/L Normal 39-308 [facility] Comment on above: Performed By: #### C MADM, CMP, DAMIEN, LIPA ####[facility] [place] [address] [address]Dr. Andrea Garcia CK.MB [Mass/Vol] 1.80 ng/mL Normal <=3.60 [facility] [place] Comment on above: Performed By: #### C MADM, CMP, DAMIEN, LIPA ####[facility] [place] [address] [address]Dr. Andrea Garcia HSTROP 15.7 pg/mL Normal 4.0-76.1 [facility] [place] Comment on above: Result Comment: CUT- OFF POINTS HAVE BEEN ESTABLISHED BASED ON THE FOURTH UNIVERSAL DEFINITIONS OF MYOCARDIAL INFARCTION. THE UPPER REFERENCE LIMIT (URL) OF TROPONIN, DEFINED THE 99TH PERCENTILE OF cTnI DISTRIBUTION IN A REFERENCE POPULATION, HAS BEEN CONFIRMED THE DECISION THRESHOLD FOR DE DIAGNOSIS. Performed By: #### C MADM, CMP, DAMIEN, LIPA ####[facility] [place] [address] [address]Dr. Andrea Garcia MIQUEL 61 ng/mL Normal 16-96 [facility] [place] Comment on above: Performed By: #### C MADM, CMP, DAMIEN, LIPA ####[facility] [place] [address] [address]Dr. Andrea Garcia CBC AUTO DIFFon 01-10-2023 BASO # 0.0 103/ul Normal 0.0-0.1 [facility] [place] Comment on above: Performed By: #### C BC ####[facility] [place] [address] [place], [place] [address]Dr. Andrea Garcia Basophils/100 WBC (Bld) 0.5 % Normal 0.2-2.0 [facility] [place] Comment on above: Performed By: #### C BC ####[facility] [place] [address] [address]Dr. Andrea Garcia EO # 0.4 103/ul Normal 0.0-0.7 [facility] [place] Comment on above: Performed By: #### C BC ####[facility] [place] [address] [place], [place] [address]Dr. Andrea Garcia Eosinophils/100 WBC (Bld) 5.9 % Normal 0.9-7.0 [facility] [place] Comment on above: Performed By: #### C BC ####[facility] [place] [address] [address]Dr. Andrea Garcia Erythrocyte distribution width (RBC) [Ratio] 13.0 % Normal 11.0-15.0 [facility] [place] Comment on above: Performed By: #### C BC ####[facility] [place] [address] [place], [place] [address]Dr. Andrea Garcia Hematocrit (Bld) [Volume fraction] 40.0 % Critically low 42.0-54.0 [facility] [place] Comment on above: Performed By: #### C BC ####[facility] [place] [address] [place], [place] [address]Dr. Andrea Garcia Hemoglobin (Bld) [Mass/Vol] 13.4 g/dL Critically low 14.0-18.0 [facility] [place] Comment on above: Performed By: #### C BC ####[facility] [place] [address] [place], [place] [address]Dr. Andrea Garcia IG # 0.01 10e3/ul Normal 0.00-0.03 [facility] [place] Comment on above: Performed By: #### C BC ####[facility] [place] [address] [place], [place] [address]Dr. Andrea Garcia IG % 0.2 % Normal 0.0-0.5 [facility] [place] Comment on above: Performed By: #### C BC ####[facility] [place] [address] [place], [place] [address]Dr. Andrea Garcia LYMPH # 2.2 103/ul Normal 1.2-3.8 [facility] [place] Comment on above: Performed By: #### C BC ####[facility] [place] [address] [place], [place] [address]Dr. Andrea Garcia Lymphocytes/100 WBC (Bld) 33.2 % Normal 20.5-60.0 [facility] [place] Comment on above: Performed By: #### C BC ####[facility] [place] [address] [place], [place] [address]Dr. Andrea Garcia MANUAL DIFF REQ NO Normal [facility] [place] Comment on above: Performed By: #### C BC ####[facility] [place] [address] [address]Dr. Andrea Jose MCH (RBC) [Entitic mass] 30.5 pg Normal 25.9-34.0 [facility] [place] Comment on above: Performed By: #### C BC ####[facility] [place] [address] [place], [place] [address]Dr. Andrea Jose MCHC (RBC) [Mass/Vol] 33.5 g/dL Normal 29.9-35.2 [facility] [place] Comment on above: Performed By: #### C BC ####[facility] [place] [address] [place], [place] [address]Dr. Andrea Garcia MCV (RBC) [Entitic vol] 90.9 fL Normal 80.0-94.0 [facility] [place] Comment on above: Performed By: #### C BC ####[facility] [place] [address] [place], [place] [address]Dr. Andrea Garcia MONO # 0.4 103/ul Normal 0.3-0.8 [facility] [place] Comment on above: Performed By: #### C BC ####[facility] [place] [address] [place], [place] [address]Dr. Andrea Garcia Monocytes/100 WBC (Bld) 6.0 % Normal 1.7-12.0 [facility] [place] Comment on above: Performed By: #### C BC ####[facility] [place] [address] [place], [place] [address]DrWilder Garcia NEUT # 3.5 103/ul Normal 1.4-6.5 [facility] [place] Comment on above: Performed By: #### C BC ####[facility] [place] [address] [place], [place] [address]DrWilder Garcia Neutrophils/100 WBC (Bld) 54.2 % Normal 43.0-75.0 [facility] [place] Comment on above: Performed By: #### C BC ####[facility] [place] [address] [place], [place] [address]Dr. Andrea Garcia Platelet mean volume (Bld) [Entitic vol] 9.7 fL Normal 9.5-13.5 [facility] [place] Comment on above: Performed By: #### C BC ####[facility] [place] [address] [place], [place] [address]HyWilder Garcia PLT 225 103/ul Normal 150-450 [facility] [place] Comment on above: Performed By: #### C BC ####[facility] [address] [place], [place] [address]Oc. Andrea Garcia RBC 4.40 106/ul Critically low 4.70-6.10 [facility] [place] Comment on above: Performed By: #### C BC ####[facility] [place] [address] [place], [place] [address]Jr. Andrea Garcia WBC 6.5 103/ul Normal 4.0-11.0 [facility] [place] Comment on above: Performed By: #### C BC ####[facility] [place] [address] [place], [place] [address]Ie. Andrea [address] CT ABD/PELV W CONon 01-11-20 [...] ADITYA OATES Date: 2023-01-10 07:41 Normal [facility] CULTURE BLOODon 01-10-2023 Microscopic examination of blood, culture Culture Observations: NO GROWTH AT 36-48 HOURS. FINAL TO FOLLOW. Normal [facility] Comment on above: Performed By: #### B LDCX2 ####[facility] [place] [address] [address]Dr. Andrea Garcia Microscopic examination of blood, culture Culture Observations: NO GROWTH AT 36-48 HOURS. FINAL TO FOLLOW. Normal [facility] Comment on above: Performed By: #### B LDCX1 ####[facility] [place] [address] [address]Dr. Andrea Garcia ER URINE PROFILEon 3 Bilirubin Ql (U) Negative Normal NEGATIVE [facility] Comment on above: Performed By: #### U MICRO, ERUR #### [facility] [address] [place] [address] Dr. Andrea Garcia Clarity (U) CLEAR Normal CLEAR [facility] Comment on above: Performed By: #### U MICRO, ERUR #### [facility] [address] [place] [address] Dr. Andrea Garcia Color (U) LT. YELLOW Normal YELLOW [facility] Comment on above: Performed By: #### U MICRO, ERUR #### [facility] [address] [place] [address] Dr. Andrea Garcia ERUAHD A micrscopic examina tion will be performed if indicated. Normal [facility] Comment on above: Performed By: #### U MICRO, ERUR #### [facility] [place] [address] [place] [address] Dr. Andrea Garcia Glucose Ql (U) Negative Normal NEGATIVE [facility] Comment on above: Performed By: #### U MICRO, ERUR #### [facility] [address] [place] [address] Dr. Andrea Garcia Hemoglobin Ql (U) TRACE-INTACT Abnormal NEGATIVE [facility] [place] Comment on above: Performed By: #### U MICRO, ERUR #### [facility] [place] [facility] [address] [place] [address] Dr. Andrea Garcia Ketones Ql (U) Negative Normal NEGATIVE [facility] [place] Comment on above: Performed By: #### U MICRO, ERUR #### [facility] [place] [facility] [address] [place] [address] Dr. Andrea Garcia LEUKOCYTES Negative Normal NEGATIVE [facility] [place] Comment on above: Performed By: #### U MICRO, ERUR #### [facility] [place] [address] [place] [address] Dr. Andrea Garcia Nitrite Ql (U) Negative Normal NEGATIVE [facility] [place] Comment on above: Performed By: #### U MICRO, ERUR #### [facility] [place] [address] [place] [address] Dr. Andrea Garcia pH (U) 5.5 [pH] Normal 5-9 [facility] [place] Comment on above: Performed By: #### U MICRO, ERUR #### [facility] [place] [address] [place] [address] Dr. Andrea Garcia SPEC GRAVITY 1.015 Normal 1.005-<=1. 025 [facility] Comment on above: Performed By: #### U MICRO, ERUR #### [facility] [place] [facility] [address] [place] [address] Dr. Andrea Garcia UA PROTEIN Negative Normal NEGATIVE/ TRACE [facility] [place] Comment on above: Performed By: #### U MICRO, ERUR #### [facility] [place] [address] [place] [address] Dr. Andrea Garcia UR MICRO IND INDICATED Normal [facility] [place] Comment on above: Performed By: #### U MICRO, ERUR #### [facility] [place] [address] [place] [address] Dr. Andrea Garcia Urobilinogen Qn (U) 0.2 {Temo'U}/dL Normal 0.2 - 1. 0 [facility] Comment on above: Performed By: #### U MICRO, ERUR #### [facility] [place] [address] [address] [address] Andrea Garcia LACTATE/LACTIC ACIDon 2022 Lactate [Moles/Vol] 0.8 mmol/L Normal 0.4-2.0 [facility] Comment on above: Performed By: #### L ACT #### [facility] [place] [address] [address] [address] Andrea Garcia Lactate [Moles/Vol] 0.9 mmol/L Normal 0.4-2.0 [facility] Comment on above: Performed By: #### L ACT #### [facility] [address] [address] [address] Andrea Garcia LIPASEon 01-10-2023 Lipase [Catalytic activity/Vol] 71.0 U/L Critically low 73.0-393.0 [facility] Comment on above: Performed By: #### C MADM, CMP, DAMIEN, LIPA ####[facility] [place] [address] [address]DrWilder Garcia PROF 14(COMP METB)on 023 Albumin [Mass/Vol] 3.2 g/dL Critically low 3.4-5.0 [facility] Comment on above: Performed By: #### C MADM, CMP, DAMIEN, LIPA ####[facility] [place] [address] [address]DrWilder Garcia Albumin/Globulin [Mass ratio] 0.9 {ratio} Normal [facility] Comment on above: Performed By: #### C MADM, CMP, DAMIEN, LIPA ####[facility] [place] [address] [address]DrWilder Garcia ALP [Catalytic activity/Vol] 68 U/L Normal 46-116 [facility] Comment on above: Performed By: #### C MADM, CMP, DAMIEN, LIPA ####[facility] [place] [address] [address]DrWilder Garcia ALT [Catalytic activity/Vol] 30 U/L Normal 16-63 [facility] Comment on above: Performed By: #### C MADM, CMP, DAMIEN, LIPA ####[facility] [place] [address] [address]Dr. Andrea Garcia Anion gap [Moles/Vol] 14.2 mmol/L Normal [facility] [place] Comment on above: Performed By: #### C MADM, CMP, DAMIEN, LIPA ####[facility] [place] [address] [address]Dr. Andrea Garcia AST [Catalytic activity/Vol] 18 U/L Normal 15-37 [facility] [place] Comment on above: Performed By: #### C MADM, CMP, DAMIEN, LIPA ####[facility] [place] [address] [address]Dr. Andrea Garcia Bilirubin [Mass/Vol] 0.5 mg/dL Normal 0.2-1.0 [facility] [place] Comment on above: Performed By: #### C MADM, CMP, DAMIEN, LIPA ####[facility] [address] [address]Dr. Andrea Garcia Calcium [Mass/Vol] 8.5 mg/dL Normal 8.5-10.1 [facility] Comment on above: Performed By: #### C MADM, CMP, DAMIEN, LIPA ####[facility] [address] [address]Dr. Andrea Garcia Chloride [Moles/Vol] 108 mmol/L Critically high 98-107 [facility] Comment on above: Performed By: #### C MADM, CMP, DAMIEN, LIPA ####[facility] [place] [address] [address]Dr. Andrea Garcia CO2 [Moles/Vol] 22.1 mmol/L Normal 21.0-32.0 [facility] Comment on above: Performed By: #### C MADM, CMP, DAMIEN, LIPA ####[facility] [address] [address]Dr. Andrea Garcia Creatinine [Mass/Vol] 1.06 mg/dL Normal 0.70-1.30 [facility] Comment on above: Performed By: #### C MADM, CMP, DAMIEN, LIPA ####[facility] [address] [address]Dr. Andrea Garcia EGFR-AF URUGUAYAN >60 Normal >=60 [facility] Comment on above: Performed By: #### C MADM, CMP, DAMIEN, LIPA ####[facility] [address] [address]Dr. Andrea Garcia EGFR-NON AF URUGUAYAN >60 Normal >=60 [facility] Comment on above: Performed By: #### C MADM, CMP, DAMIEN, LIPA ####[facility] [address] [address]Dr. Andrea Garcia Globulin (S) [Mass/Vol] 3.5 g/dL Normal [facility] Comment on above: Performed By: #### C MADM, CMP, DAMIEN, LIPA ####[facility] [address] [place] [address]Dr. Andrea Garcia Glucose [Mass/Vol] 110 mg/dL Critically high 74-106 [facility] Comment on above: Performed By: #### C MADM, CMP, DAMIEN, LIPA ####[facility] [address] [place] [address]Dr. Andrea Garcia Potassium [Moles/Vol] 4.3 mmol/L Normal 3.5-5.1 [facility] Comment on above: Performed By: #### C MADM, CMP, DAMIEN, LIPA ####[facility] [address] [place] [address]Dr. Andrea Garcia Protein [Mass/Vol] 6.7 g/dL Normal 6.4-8.2 [facility] Comment on above: Performed By: #### C MADM, CMP, DAMIEN, LIPA ####[facility] [address] [place] [address]Dr. Andrea Garcia Sodium [Moles/Vol] 140 mmol/L Normal 136-145 [facility] Comment on above: Performed By: #### C MADM, CMP, DAMIEN, LIPA ####[facility] [address] [place] [address]Dr. Andrea Garcia Urea nitrogen [Mass/Vol] 20.0 mg/dL Critically high 7.0-18.0 [facility] Comment on above: Performed By: #### C YASMINE, ABHINAV, DAMIEN, LIPA ####[facility] [id number] [address]Dr. Andrea Garcia Urea nitrogen/Creatinine [Mass ratio] 18.9 mg/mg Normal [facility] Comment on above: Performed By: #### C MADM, CMP, DAMIEN, LIPA ####[facility] [id number] [id number]. Andrea Garcia URINE MICROSCOPIC ONLYon BACTERIA NONE SEEN Normal NONE SEEN [facility] Comment on above: Performed By: #### U MICRO, ERUR #### [facility] [address] [place] [address] Dr. Andrea Garcia Bacteria identified Cx Nom (U) NOT INDICATED Normal [facility] Comment on above: Performed By: #### U MICRO, ERUR #### [facility] [address] [place] [address] Dr. Andrea Garcia CAST NONE SEEN Normal NONE SEEN [facility] Comment on above: Performed By: #### U MICRO, ERUR #### [facility] [address] [address] [address] Andrea Garcia Crystals LM Nom (Urine sed) NONE SEEN Normal NONE SEEN [facility] Comment on above: Performed By: #### U MICRO, ERUR #### [facility] [address] [place] [address] Dr. Andrea Garcia Epithelial cells LM Ql (Urine sed) NONE SEEN Normal NONE SEEN /RARE [facility] Comment on above: Performed By: #### U MICRO, ERUR #### [facility] [address] [address] [address] Andrea Garcia MUCOUS NONE SEEN Normal NONE SEEN [facility] Comment on above: Performed By: #### U MICRO, ERUR #### [facility] [address] [place] [address] Dr. Andrea Garcia RBC 0-2 Normal 0-2 [facility] Comment on above: Performed By: #### U MICRO, ERUR #### [facility] [address] [place], [place] [address] Dr. Andrea Garcia WBC 0-2 Abnormal NONE SEEN [facility] Comment on above: Performed By: #### U MICRO, ERUR #### [facility] [address] [place], [place] [address] Dr. Andrea Garcia XR CHEST 1 Von 01-10-2023 XR CHEST 1 V Exam: Radiographs: X R CHEST 1 V Reason for exam: Nausea/vomiting Comparison: None IMPRESSION: Negative chest. Electronically authenticated by: ADITYA OATES Date: 2023-01-10 07:42 Normal [facility] MRI Soft Tissue Neck w/o + w [...] by KENN RAPHAEL on 10/06/2021 1605 Normal [facility] Director Strategy CT Soft Tissue Neck w/ Contr ast*on [...] by Que Greene on 09/29/2021 1013 Normal [facility] Director Strategy Vital Signs Date Time Vital Sign Value Performing Clinician Ethan liu 09-19-2024 08:42-0500 Body mass index (BMI) [Ratio] 24.11 kg/m2 [facility] 09-19-2024 08:42-0500 Body weight 85.19 kg [facility] 09-19-2024 08:42-0500 Diastolic blood pressure 76 mm[Hg] [facility] 09-19-2024 08:42-0500 Heart rate 78 /min [facility] 09-19-2024 08:42-0500 SaO2% (BldA) [Mass fraction] 96 % [facility] 09-19-2024 08:42-0500 Systolic blood pressure 142 mm[Hg] Maribel Bojorquez Work Phone: [facility] 01-09-2024 19:01-0400 Diastolic blood pressure 99 mm[Hg] MD Lauren Godwin Work Phone: [facility] 01-09-2024 19:01-0400 Heart rate 84 /min MD Lauren Godwin Work Phone: [facility] 01-09-2024 19:01-0400 Respiratory rate 18 /min MD Lauren Godwin Work Phone: [facility] 01-09-2024 19:01-0400 SaO2% (BldA) [Mass fraction] 97 % MD Lauren Godwin Work Phone: [facility] 01-09-2024 19:01-0400 Systolic blood pressure 190 mm[Hg] MD Lauren Godwin Work Phone: [facility] 01-09-2024 14:29-0400 Body height 187.96 cm MD Lauren Godwin Work Phone: [facility] 01-09-2024 14:29-0400 Body temperature 98.3 [degF] MD Lauren Godwin Work Phone: [facility] 01-09-2024 14:29-0400 Body weight 83 kg MD Lauren Godwin Work Phone: [facility] 12-18-2023 13:10-0400 Heart rate 85 /min MD Laruen Godwin Work Phone: [facility] 12-18-2023 13:09-0400 Body temperature 97.9 [degF] MD Lauren Godwin Work Phone: [facility] 12-18-2023 13:09-0400 Diastolic blood pressure 77 mm[Hg] MD Lauren Godwin Work Phone: [facility] 12-18-2023 13:09-0400 Respiratory rate 18 /min MD Lauren Godwin Work Phone: [facility] 12-18-2023 13:09-0400 SaO2% (BldA) [Mass fraction] 97 % MD Lauren Godwin Work Phone: [facility] 12-18-2023 13:09-0400 Systolic blood pressure 161 mm[Hg] MD Lauren Godwin Work Phone: [facility] 12-18-2023 13:06-0400 Body height 186.69 cm MD Lauren Godwin Work Phone: [facility] 12-18-2023 13:06-0400 Body weight 81 kg MD Lauren Godwin Work Phone: [facility] 03-03-2023 13:30-0400 Diastolic blood pressure 100 mm[Hg] MD Lauren Godwin Work Phone: [facility] 03-03-2023 13:30-0400 Heart rate 59 /min MD Lauren Godwin Work Phone: [facility] 03-03-2023 13:30-0400 Respiratory rate 18 /min MD Lauren Godwin Work Phone: [facility] 03-03-2023 13:30-0400 SaO2% (BldA) [Mass fraction] 99 % MD Lauren Godwin Work Phone: [facility] 03-03-2023 13:30-0400 Systolic blood pressure 160 mm[Hg] MD Lauren Godwin Work Phone: [facility] 03-03-2023 11:36-0400 Body height 175.26 cm MD Lauren Godwin Work Phone: [facility] 03-03-2023 11:36-0400 Body temperature 98 [degF] MD Lauren Godwin Work Phone: [facility] 03-03-2023 11:36-0400 Body weight 84.3 kg MD Lauren Godwin Work Phone: [facility] Encounters Encounter Date Encounter Type Care Provider Facility Start: 09-24-2024 End: 09-24-[address] [facility] Start: 09-19-2024 End: 09-19-2024 Bamboo flowsheet Maribel Bojorquez DO Work Phone: [facility] Start: 09-19-2024 End: 09-19-2024 Bamboo flowsheet Maribel Bojorquez DO Work Phone: [facility] Start: 09-19-2024 End: 09-19-2024 Office outpatient new 45 minutes Maribel Bojorquez DO Work Phone: [facility] Comment on above: Loss of consciousnes s (CMS/HCC) (Primary Dx) Start: 09-19-2024 End: 09-19-2024 ambulatory MARIBEL BOJORQUEZ Not Available Start: 08-09-2024 End: 08-09-2024 Emergency department patient visit SHIV DICKERSON [facility] [place] Start: 04-06-2024 End: 04-06-2024 ambulatory [facility] Start: 01-09-2024 End: 01-09-2024 Emergency department patient visit Lauren Godwin Facility:[facility] Start: 01-09-2024 End: 01-09-2024 Emergency department patient visit MD Lauren Godwin Work Phone: [facility] Work Phone: Start: 12-18-2023 End: 12-18-2023 Emergency department patient visit Marie Garrison Facility:[facility] Start: 12-18-2023 End: 12-18-2023 Emergency department patient visit MD Lauren Godwin Work Phone: [facility] Work Phone: Start: 12-09-2023 End: 12-09-2023 ambulatory [facility] Start: 03-03-2023 End: 03-03-2023 Emergency department patient visit Ramiro Cortez Facility:[facility] Start: 03-03-2023 End: 03-03-2023 Emergency department patient visit MD Lauren Godwin Work Phone: [facility] Work Phone: Start: [...] Treatment Date Care Activity Detail Author Start: 11-05-2024 End: 11-05-2024 Patient encounter procedure 11/05/2024 9:00 AM EDT Office Visit [facility] [address] [facility] [place] [id number] Maribel Bojorquez DO [address] [place], [place] [address], [place] [address] [facility] Start: 09-20-2024 End: 09-20-2024 Clinical Support 09/20/2024 8:45 AM EST Clinical Support [facility] [address] [facility] [place] [id number] [facility] Start: 09-19-2024 End: 09-19-2025 EEG, Including Recording Awake or Asleep EEG, Including Recording Awake or Asleep Neurology Routine Loss of consciousness ([facility]/HCC) Expected: 09/19/2024 (Approximate), Expires: 09/19/2025 [facility] Work Phone: Comment on above: Expected: 09/19/2024 (Approximate), Expires: 09/19/2025 Start: 09-19-2024 End: 09-19-2024 Patient encounter procedure 09/19/2024 9:00 AM EST Office Visit [facility]AL [address] [facility] [place] [phone] Maribel Bojorquez DO [address] [facility] [place] [address] Arrived [facility] Comment on above: Arrived Start: 04-15-2024 Influenza vaccination Influenza Vacc ine (#1) [facility] Start: 12-18-2023 [facility] Start: 2014 Pneumococcal Vaccine : 65+ Years (1 of 1 - PCV) Pneumococcal Vaccine: 65+ Years (1 of 1 - PCV) [facility] Start: 1950 Screening for malign ant neoplasm of colon [facility] Healthcare Patient Education [facility] Work Phone: Patient referral [facility] Work Phone: Immunizations Immunization Date Immunization Notes Care Provider Fa cility 09-21-2023 influenza virus vaccine, unspecified formulation Maribel Bojorquez DO Work Phone: [facility] Healthcare Payers Date Payer Category Payer Medicare (Managed Care) [employer] [id number] 2023 Self-pay [id number] 2022 Unknown [id number] 1960 Medicare [id number] 1950 Unknown [id number] 1950 Unknown [id number] 1949 Unknown [id number] Unknown [id number] Unknown [id number] Unknown [id number] [id number] Social History Date Type Detail Facility Start: 03-03-2023 End: 01-09-2024 Tobacco smoking status MIIS Ex-smoker (finding) [facility] Start: 1950 Sex Assigned At Male F [facility] Tobacco smoking status [facility] Tobacco smoking consumption unknown [facility] Start: 1950 Sex assigned at Not on file N [facility] Gender identity Not on file [facility] Health are Progress note 09-24-2024 Note Date & Type Note Facility 09-24-2024 Note [facility] Subjective Jeb Riddle is a 73 y.o. year old male patient here for follow up TBH bowel obstruction and uncontrolled hypertension. He is not taking Eliquis or aspirin. Says he had negative CT and LE dopplers. He's also not taking metoprolol due to dizziness. He denies chest pain, SOB, and palpitations. Patient Active Problem List Diagnosis Unstable angina [...] and to remain on beta-florin therapy. He developed a pulmonary embolism and DVT in early March 2024. He was admitted to the hospital at [facility] and was started on anticoagulation therapy. I saw him in follow-up on 04/06/2024 and at that time he was maintained on anticoagulation therapy with Eliquis and aspirin had been stopped. I checked a hypercoagulable profile testing and this was negative. I had recommended screening for an underlying cancer which was to be discussed with his PCP Dr. Lauren Godwin. On 08/31/2024 he was admitted to the [facility] with small bowel obstruction secondary to his Crohn's disease and was placed on intravenous steroids. He responded to conservative management. During the hospitalization he developed an episode of SVT and hypertensive urgency with blood pressure over 220 mmHg systolic. He had mild elevation of high-sensitivity troponin which was felt related to the SVT representing supply/demand mismatch. His echocardiogram showed normal ventricular function. Today he reports that he has been doing well. He denies significant chest pain or shortness of breath. No leg edema. He does not feel palpitations. He has stopped taking metoprolol since it causes him significant dizziness. His blood pressure has been reasonably controlled. Review of Systems Neurological: Positive for dizziness. All other systems reviewed and are negative. Objective Visit Vitals BP 124/74 (BP Location: Left arm, Patient Position: Sitting) Pulse 61 Ht 1.88 m (6' 2 ) Wt 83.5 kg (184 lb) SpO2 99% BMI 23.62 kg/m??? Smoking Status Former BSA [...] Atorvastatin Other myalgias Medications Current Outpatient Medications: cloNIDine (Catapres) 0.1 mg tablet, 0.1 mg Twice daily at 6am and 6pm., Disp: , Rfl: ezetimibe (Zetia) 10 mg tablet, Take 1 tablet (10 mg) by mouth in the morning., Disp: 90 tablet, Rfl: 3 isosorbide mononitrate ER (Imdu (more content not included)... [facility] History of Present illness Narrative 09-19-2024 Maribel Bojorquez DO - 09/19/2024 9:00 AM EST Note Date & Type Note Facility 09-19-2024 History of Presen t illness Narrative Images from the original note were not included. Chief Complaint: syncope and seizure Subjective Jeb Riddle, 73 y.o., male Patient presents today for a neurologic consult at the request of Dr. Godwin for syncope/seizure. Patient states he had an episode he believes was hypotensive related. Blood pressure when EMS got there was 70/40s he states. 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 He had taken a Seroquel the night before to help him sleep. He got up to go to the bathroom and he collapsed on the ground. His co worker told him he was having body shaking, extreme tensing, he did have loss of bladder. He denies any tongue bite. This is the first time he had any event like this. He is not currently on any medication. He states he sleeps very bad at night. This has been for about 2 years. He lost his job in [place] and his house and has had issues sleeping ever since. He admits to a great amount of anxiety and stress. He admits to about 4 hours a night on a good night. Review of Systems Constitutional: Negative for appetite change, fatigue and fever. Respiratory: Negative for cough, shortness of breath and wheezing. Cardiovascular: Negative for chest pain, palpitations and leg swelling. Gastrointestinal: Negative for abdominal pain, constipation, diarrhea and nausea. Musculoskeletal: Negative for arthralgias, gait problem and myalgias. Neurological: Positive for seizures and syncope. Negative for dizziness, tremors, numbness and headaches. No past medical history on file. No past surgical history on file. No family history on file. Social History Tobacco Use Smoking status: Not on file Smokeless tobacco: Not on file Substance Use Topics Alcohol use: Not on file Allergies: Patient has no known allergies. Vitals: 09/19/24 0842 BP: 142/76 Pulse: 78 SpO2: 96% Body mass index is 24.11 kg/m . weight: 187 lb 12.8 oz Neurologic exam: Mental status: Awake, alert to person, place and time. Recent and remote memory are intact. Language is fluent without aphasia. Attention and concentration are normal. Fund of knowledge is appropriate for level of education. Cranial nerves: CN II: Visual acuity is normal. Visual orozco full to confrontation. CN III, IV, : pupils equal round and reactive to light. Extraocular movements intact. No ptosis present. CN V: Facial sensation is normal. CN VII: Full and symmetric facial movement. CN VIII: Hearing is normal to finger rub bilaterally: CN IX and X: Palate elevates symmetrically. CN XI: Shoulder shrug is normal bilaterally. CN XII: Tongue is midline without atrophy or fasciculation. Motor: RUE Strength deltoid, , biceps , triceps , wrist extensors , wrist flexor , heeler machine strength 5/5. LUE Strength deltoid , biceps , triceps , wrist extensors , wrist flexor , heeler machine strength 5/5. RLE Strength illopsoas, quadriceps, tibialis anterior, and gastrocnemius strength 5/5. LLE Strength illopsoas, quadriceps, tibialis anterior, and gastrocnemius strength 5/5. Normal tone x4 extremities. Bulk is normal. Sensory: Sensation is intact to light touch throughout Four extremities. Reflexes: RUE biceps reflex 2+ brachioradialis reflex 2+ . LUE biceps reflex 2+ brachioradialis reflex 2+ . RLE knee reflex 2+ . LLE knee reflex 2+ . Reese's sign negative. Coordination: [id number] testing and rapid alternating movements are normal Gait: Normal Review and summary of old records: CT of the brain without contrast on 08/09/2024 with comparison to 07/14/2022: No acute intracranial pathology I have reviewed notations from [place] emergency department where this 73-year-old patient presented on 08/09/2024 feeling dizzy in the morning and believe be at a possible seizure. He admitted to trouble sleeping the night before so he took a dose of Seroquel and had some mixed drinks he was very sleepy when he woke up in the morning. It was also noted to have very low blood pressure. He was offered admission and discharged in stable condition after unremarkable CT of the brain. Assessment/Plan Diagnoses and all orders for this visit: Loss of consciousness (CMS/[facility]) It is my impression that the patient had an episode of loss of consciousness. Who was found to be hypotensive at the time of the event and admits that he had taken Seroquel and had had a few drinks the night before. He noted that his blood pressure was 70/40 at the time of the incident. 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 It sounds as if this was an episode of convulsive syncope. CT of the brain was unremarkable. He states he had a recent MRI at [facility] that was also unremarkable. He has no family history of seizure. Has no personal history of seizure. He has no intracranial risk factors for seizure history of infection that would predispose to seizure. Examination today unremarkable. Plan: Obtain routine EEG to assess for any epileptiform abnormalities which may account for the patient's symptoms As this is a 1 time event and likely provoked due to low blood pressure, I do not believe the patient is a candidate for treatment with antiepileptic therapy I have asked the patient to follow up closely with primary care and to ensure there is no cardiac etiology that could have predisposed to this otherwise. He understands life-threatening importance of follow up of other etiology such as cardiac cause. I have asked him to refrain from driving for now until we can obtain EEG in order to exclude seizure like event further. Pt has been fully educated on their diagnosis, lab results, treatment options, follow up plan, and return instructions documented in this encounter [facility] Progress note 04-06-2024 Note Date & Type Note Facility 04-06-2024 Note [facility] Subjective Jeb Riddle is a 73 y.o. year old male patient here for a follow up echo from January, he was amitted to [facility], for chest pain a couple weeks ago and had another echo. He had a lipid panel yesterday. At last appointment his statin was changed. 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 He still rides his bike to [employer] everyday, still active. Patient Active Problem List [...] He was admitted to the hospital at [facility] and was started on anticoagulation therapy. Today [...] succinate XL (more content not included)... [facility] Progress note 12-09-2023 Note Date & Type Note Facility 12-09-2023 Note 8K can you read, out of the so I can make changes in [place] [facility] Subjective Jeb Riddle is a 73 [...] presented to the emergency room at the [facility] and investigation including a CT scan of [...] 3 prav (more content not included)... [facility] Evaluation note Note Date & Type Note Facility Evaluation note No assessment information availa [facility] Work Phone: Evaluation note Note Date & Type Note Facility Evaluation note Diagnosis Loss of consciousness (CMS/HCC)- Primary Other alteration of consciousness documented in this encounter [facility] Discharge instructions Note Date & Type Note Facility Hospital Discharge instructions Additional Instructions Continue Pepcid once or twice a day as needed Yolo diet Follow-up with your family doctor for recheck Return to the ER for worsening pain shortness of breath fever or any other concerns [facility] Work Phone: Reason for visit Narrative Consultation (Routine) - Closed Note Date & Type Note Facility Reason for visit Narrative Specialty Diagnoses / Procedures Referred By Contac t Referred To Contact Neurology Diagnoses Unspecified convulsions (CMS/HCC) Syncope and collapse Procedures [place] OFFICE/OUTPATIENT NEW LOW MDM 30 MINUTES Lauren Godwin MD [address] [facility] [place] [address] Phone: tel:[phone] fax: Maribel Bojorquez DO [address] [place] [address] Phone: tel: fax: Referral ID Status Reason Start Date Expiration Date V isits Requested Visits Authorized [id number] Closed Consult and Treat 08/17/2024 02/13/2025 1 1 [facility] Summary Purpose Family History No Family History [...] section and content) DATE CREATED AUTHOR 10/07/2021 [facility] dical Specialist DATE CREATED AUTHOR AUTHOR'S ORGANIZ ATION 01/21/2023 [facility] pital DATE CREATED AUTHOR AUTHOR'S ORGANIZ ATION 01/09/2024 [facility] ysician Group DATE CREATED AUTHOR AUTHOR'S ORGANIZ ATION 08/10/2024 [facility] DATE CREATED AUTHOR AUTHOR'S ORGANIZ ATION 09/21/2024 [facility] dical Specialists [facility] DATE CREATED AUTHOR AUTHOR'S ORGANIZ ATION 09/25/2024 [facility] Care Teams (unrecognized sec tion and content) Team Status: Active Member Role Status Dates Lauren Godwin MD Primary Care Provider Active Team Status: Inactive Member Role Status Dates Lauren Godwin MD Primary Care Provider Active Ramiro Cortez DO Emergency Provider Active Team Status: Inactive Member Role Status Dates Lauren Godwin MD Primary Care Provider Active Start: December 18, 2023 End: December 18, 2023 Marie Garrison APRN Emergency Provider Active Start: December 18, 2023 End: December 18, 2023 Team Status: Inactive Member Role Status Dates Lauren Godwin MD Primary Care Provider Active Start: January 09, 2024 End: January 09, 2024 [facility] Emergency Provider Active Start: January 09, [...] BE BASED ON THE PRIMARY CLINICAL RECORDS. [facility] [employer] provides no warranty or guarantee of the accuracy or completeness of information in this document.
== END 2024-10-03 07:22 | disposition home or self-care (01) ==
LOC: CARD 07:21
PROVIDERS: Family Provider Family Medicine; PCP Family Medicine; Visit Provider Family Medicine
DX: R07.89 Other chest pain (principal)
CPT/HCPCS: 93017

== ENCOUNTER 2024-10-23 09:07 | Outpatient (OUT) | payer MEDICARE, SELFPAY ==
--- OUTSIDE RECORDS SUMMARY | 2024-10-23 09:17 | XMS_ITS | CCD ---
Author Organization [facility] Care Team Providers Care Cath Laboratory Technician Name Role Phone DR BEHZAD CROCKER Primary Care Unavailable DANIEL ., JUNI Attending Unavailable DANIEL ., JUNI Admitting Unavailable DR ROBERT DAVENPORT V Consulting Unavailable PITER GROSSMAN Consulting Unavailable DANIEL ., JUNI Consulting Unavailable DIAB ., GRAYSON Consulting Unavailable ADITYA OATES Consulting Unavailable MD Lauren Godwin Primary Care Provider [phone] DO Ramiro Cortez Emergency Provider MD Lauren Godwin Primary Care Provider [phone] KYA Garrison Emergency Provider Bulldk, PUMP REBUILDER-BC Naima Phelan Emergency Provider Lauren Godwin Primary Care Unavailable BullNaima root Admitting Unavailable Naima Boyd Attending Unavailable Ramiro Cortez Admitting Unavailable Ramiro Cortez Attending Unavailable Lauren Godwin Primary Care Unavailable Marie Garrison Attending Unavailable Lauren Godwin Primary Care Unavailable Marie Garrison Admitting Unavailable SHIV DICKERSON Attending Unavailable LAUREN GODWIN Primary Care Unavailable Unavailable Primary Care Provider UnavailJESSICA Ochoa Attending Unavailable JESSICA FORRESTER Attending Unavailable JESSICA FORRESTER Attending Unavailable MARIBEL BOJORQUEZ Attending Unavailable LAUREN GODWIN Referring Unavailable MARIBEL BOJORQUEZ Referring Unavailable Allergies Allergy Classification Reported Allergen(s) Allergy Type Date of Onset Reaction(s) Facility (2 sources) Fish derivative; Translations: [fish derived] Propensity to adverse reactions 03-03-20 Gastrointestinal Upset [facility] (1 source) atorvastatin; Translations: [ATORVASTATIN] Drug Allergy 04-06-20 [facility] Repository Medications Current Medications Medication Drug Class(es) [...] disease (2 sources) Atherosclerotic heart disease of [place] coronary artery without angina pectoris; Translations: [Atherosclerotic heart disease of [place] coronary artery without angina pectoris] Onset: 09-24-2024 Chronic Epilepsy; convulsions (1 source) Unspecified convulsions; Translations: [Unspecified convulsions] Onset: 08-09-2024 Episodic Essential hypertension (3 sources) Essential (primary) hypertension; Translations: [ESSENTIAL PRIMARY HYPERTENSION] Onset: 01-12-2023 Chronic Other aftercare (1 source) 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 steroids; Translations: [FPC USE OF SYSTEMIC STEROIDS] Onset: 01-12-2023 Episodic Other aftercare (1 source) Other alf (current) drug therapy; Translations: [OTH SAMPLER TESTER CURRENT DRUG THERAPY] Onset: 01-12-2023 Episodic Other [...] Range Facility Office Visiton 09-24-2024 Follow-up visit [id number] Jeb Riddle 1950 M Date Provider Department Center 09/24/2024 JESSICA JAMISON MISSY [facility] Family History Problem Relation Age of Onset Diabetes Mother Coronary artery disease Mother Heart attack Father Diabetes Father Coronary artery disease Father Family Status - Relation Status Age at Mother Father Level of Service:91159 [place] OFFICE/OUTPATIENT ESTABLISHED MOD MDM 30 MIN Normal [facility] CBC AND AUTO DIFFon 08-09-20 ABSOLUTE BASOPHIL 0.0 X10E9/L Normal 0.0-0.2 [facility] Comment on above: Performed By: #### 1 9123-9, 77110-7, CMP, 58868-3, 23290-2, CBCA, 5643-2, PINR #### [facility] ([id number]) [address] [place] [address] 46117 ABSOLUTE NEUTROPHIL 3.9 X10E9/L Normal 1.5-6.6 [facility] Comment on above: Performed By: #### 1 9123-9, 02820-2, CMP, 22543-6, 67120-6, CBCA, 5643-2, PINR #### [facility] ([id number]) [address] [place] [address] 48129 Basophils/100 WBC (Bld) 0.3 % Normal [facility] Comment on above: Performed By: #### 1 9123-9, 06209-3, CMP, 00617-2, 47897-5, CBCA, 5643-2, PINR #### [facility] ([id number]) [address] [place] [address] 56130 Eosinophils (Bld) [#/Vol] 0.1 10*3/uL Normal 0.0-0.4 [facility] Comment on above: Performed By: #### 1 9123-9, 80739-6, CMP, 17400-3, 04010-0, CBCA, 5643-2, PINR #### [facility] ([id number]) [address] [place] [address] 19228 Eosinophils/100 WBC (Bld) 1.4 % Normal [facility] Comment on above: Performed By: #### 1 9123-9, 48388-6, CMP, 46572-9, 56815-8, CBCA, 5643-2, PINR #### [facility] ([id number]) [address] [place] [address] 82424 Erythrocyte distribution width (RBC) [Ratio] 13.0 % Normal 11.5-15.0 [facility] Comment on above: Performed By: #### 1 9123-9, 60951-6, CMP, 15738-0, 79363-2, CBCA, 5643-2, PINR #### [facility] ([id number]) [address] [place] [address] 14927 Hematocrit (Bld) [Volume fraction] 35.7 % Low 39-49 [facility] Comment on above: Performed By: #### 1 9123-9, 92985-5, CMP, 05098-1, 05449-6, CBCA, 5643-2, PINR #### [facility] ([id number]) [address] [place] [address] 11567 Hemoglobin (Bld) [Mass/Vol] 12.3 g/dL Low 13.0-17.0 [facility] Comment on above: Performed By: #### 1 9123-9, 39298-2, CMP, 51637-3, 10518-3, CBCA, 5643-2, PINR #### [facility] ([id number]) [address] [place] [address] 94967 Lymphocytes (Bld) [#/Vol] 1.1 10*3/uL Normal 1.0-3.5 [facility] Comment on above: Performed By: #### 1 9123-9, 89311-7, CMP, 23765-6, 41703-9, CBCA, 5643-2, PINR #### [facility] ([id number]) [address] [place] [address] 97937 Lymphocytes/100 WBC (Bld) 21.0 % Normal [facility] Comment on above: Performed By: #### 1 9123-9, 48832-7, CMP, 44664-4, 73778-7, CBCA, 5643-2, PINR #### [facility] ([id number]) [address] [place] [address] 95186 MCH (RBC) [Entitic mass] 33.2 pg Normal 27-34 [facility] Comment on above: Performed By: #### 1 23-9, 64880-1, CMP, 29873-0, 41888-6, CBCA, 5643-2, PINR #### [facility] ([id number]) [address] [place] [address] 04767 MCHC (RBC) [Mass/Vol] 34.3 g/dL Normal 32-36 [facility] Comment on above: Performed By: #### 1 9123-9, 32660-7, CMP, 06215-7, 39049-1, CBCA, 5643-2, PINR #### [facility] ([id number]) [address] [place] [address] 66815 MCV (RBC) [Entitic vol] 97 fL Normal 80-100 [facility] Comment on above: Performed By: #### 1 9123-9, 35945-2, CMP, 02756-6, 57900-5, CBCA, 5643-2, PINR #### [facility] ([id number]) [address] [place] [address] 00826 Monocytes (Bld) [#/Vol] 0.2 10*3/uL Normal 0-0.9 [facility] Comment on above: Performed By: #### 1 9123-9, 53880-9, CMP, 72905-5, 60898-3, CBCA, 5643-2, PINR #### [facility] ([id number]) [address] [place] [address] 89968 Monocytes/100 WBC (Bld) 4.5 % Normal [facility] Comment on above: Performed By: #### 1 9123-9, 27677-1, CMP, 64237-6, 80903-8, CBCA, 5643-2, PINR #### [facility] ([id number]) [address] [place] [address] 57186 Neutrophils/100 WBC (Bld) 72.8 % Normal [facility] Comment on above: Performed By: #### 1 9123-9, 94609-3, CMP, 14131-0, 82802-1, CBCA, 5643-2, PINR #### [facility] ([id number]) [address] [place] [address] 43365 Platelet mean volume (Bld) [Entitic vol] 7.7 fL Normal 7-12 [facility] Comment on above: Performed By: #### 1 9123-9, 88590-8, CMP, 81179-5, 41795-1, CBCA, 5643-2, PINR #### [facility] ([id number]) [address] [place] [address] 62872 Platelets (Bld) [#/Vol] 208 10*3/uL Normal 150-450 [facility] Comment on above: Performed By: #### 1 9123-9, 33437-4, CMP, 04941-2, 86054-3, CBCA, 5643-2, PINR #### [facility] ([id number]) [address] [place] [address] 19375 RBC COUNT 3.69 X10E12/L Low 4.10-5.70 [facility] Comment on above: Performed By: #### 1 9123-9, 81644-2, CMP, 74887-6, 35103-3, CBCA, 5643-2, PINR #### [facility] ([id number]) [address] [place] [address] 35855 WBC (Bld) [#/Vol] 5.4 10*3/uL Normal 4.0-11.0 [facility] Comment on above: Performed By: #### 1 9123-9, 58715-3, CMP, 30733-1, 20066-4, CBCA, 5643-2, PINR #### [facility] ([id number]) [address] [place] [address] 10770 COMPREHENSIVE METABOLIC PANE [facility] 08-09-2024 Albumin [Mass/Vol] 3.5 g/dL Normal 3.2-5.3 [facility] Comment on above: Performed By: #### 1 9123-9, 14093-8, CMP, 41394-8, 15538-8, CBCA, 5643-2, PINR #### [facility] ([id number]) [address] [place] [address] 34753 ALP [Catalytic activity/Vol] 56 U/L Normal 39-130 [facility] Comment on above: Performed By: #### 1 9123-9, 18620-0, CMP, 60315-0, 96997-8, CBCA, 5643-2, PINR #### [facility] ([id number]) [address] [place] [address] 48177 ALT [Catalytic activity/Vol] 25 U/L Normal 0-40 [facility] Comment on above: Performed By: #### 1 9123-9, 74146-2, CMP, 44905-2, 45463-7, CBCA, 5643-2, PINR #### [facility] ([id number]) [address] [place] [address] 06176 Anion gap [Moles/Vol] 7 mmol/L Normal 5-15 [facility] Comment on above: Performed By: #### 1 9123-9, 25662-3, CMP, 32794-1, 45466-4, CBCA, 5643-2, PINR #### [facility] ([id number]) [address] [place] [address] 42661 AST [Catalytic activity/Vol] 19 U/L Normal 0-41 [facility] Comment on above: Performed By: #### 1 9123-9, 78257-1, CMP, 44827-8, 69083-4, CBCA, 5643-2, PINR #### [facility] ([id number]) [address] [place] [address] 55211 Bilirubin [Mass/Vol] 0.4 mg/dL Normal 0.3-1.2 [facility] Comment on above: Performed By: #### 1 9123-9, 84356-1, CMP, 94253-6, 23086-5, CBCA, 5643-2, PINR #### [facility] ([id number]) [address] [place] [address] 33753 Calcium [Mass/Vol] 8.8 mg/dL Normal 8.5-10.5 [facility] Comment on above: Performed By: #### 1 9123-9, 02412-9, CMP, 38297-5, 60969-3, CBCA, 5643-2, PINR #### [facility] ([id number]) [address] [place] [address] 75658 Chloride [Moles/Vol] 108 mmol/L Normal 98-109 [facility] Comment on above: Performed By: #### 1 9123-9, 86385-9, CMP, 56011-2, 54543-5, CBCA, 5643-2, PINR #### [facility] ([id number]) [address] [place] [address] 29791 CO2 [Moles/Vol] 23 mmol/L Normal 22-32 [facility] Comment on above: Performed By: #### 1 9123-9, 38798-8, CMP, 36368-2, 33711-2, CBCA, 5643-2, PINR #### [facility] ([id number]) [address] [place] [address] 98751 Creatinine [Mass/Vol] 1.37 mg/dL High 0.70-1.20 [facility] Comment on above: Result Comment: METH OD TRACEABLE TO IDMS STANDARD Performed By: #### 1 9123-9, 83177-7, CMP, 36854-1, 10190-2, CBCA, 5643-2, PINR #### [facility] ([id number]) [address] [place] [address] 39492 GFR/1.73 sq M.predicted among non-blacks MDRD (S/P/Bld) [Vol rate/Area] 54 mL/min/{1.73_m2} Low >59 [facility] Comment on above: Result Comment: Reported eGFR is based on the CKD-EPI 2020 equation that does not use a race coefficient. Performed By: #### 1 9123-9, 23220-7, CMP, 78068-4, 17642-6, CBCA, 5643-2, PINR #### [facility] ([id number]) [address] [place] [address] 10575 Glucose [Mass/Vol] 155 mg/dL High 65-99 [facility] Comment on above: Performed By: #### 1 9123-9, 90965-1, CMP, 74643-3, 18183-0, CBCA, 5643-2, PINR #### [facility] ([id number]) [address] [place] [address] 60559 Potassium [Moles/Vol] 4.3 mmol/L Normal 3.5-5.0 [facility] Comment on above: Performed By: #### 1 9123-9, 77319-7, CMP, 91867-8, 32104-7, CBCA, 5643-2, PINR #### [facility] ([id number]) [address] [place] [address] 60513 Protein [Mass/Vol] 6.0 g/dL Normal 6.0-8.0 [facility] Comment on above: Performed By: #### 1 9123-9, 81478-6, CMP, 44283-2, 18061-6, CBCA, 5643-2, PINR #### [facility] ([id number]) [address] [place] [address] 07484 Sodium [Moles/Vol] 138 mmol/L Normal 134-146 [facility] Comment on above: Performed By: #### 1 9123-9, 05223-8, CMP, 15752-3, 98491-2, CBCA, 5643-2, PINR #### [facility] ([id number]) [address] [place] [address] 54581 Urea nitrogen [Mass/Vol] 25 mg/dL Normal 5-27 [facility] Comment on above: Performed By: #### 1 9123-9, 48911-7, CMP, 09318-1, 80413-4, CBCA, 5643-2, PINR #### [facility] ([id number]) [address] [place] [address] BRAIN WO CONTon 4 CT BRAIN [...] Moran MD on 08/09/2024 12:54 PM Normal [facility] DRUG SCREEN, URINEon 024 AMPHETAMINE/METHAMP Negative Normal NEG [facility] Comment on above: Result Comment: AMPH /METH screening cut off = 1000 ng/mL Performed By: #### 1 9123-9, 34389-7, CMP, 17052-2, 15405-3, CBCA, 5643-2, PINR #### [facility] ([id number]) [address] [place] [address] 88574 BARBITURATES Negative Normal NEG [facility] Comment on above: Result Comment: Maria Eugenia iturates screening cut off value = 200 ng/mL Performed By: #### 1 9123-9, 34588-4, CMP, 78843-8, 12697-8, CBCA, 5643-2, PINR #### [facility] ([id number]) [address] [place] [address] 20086 BENZODIAZEPINES Negative Normal NEG [facility] Comment on above: Result Comment: Paulie odiazepines screening cut off value = 200 ng/mL Performed By: #### 1 9123-9, 74132-4, CMP, 86971-7, 91090-2, CBCA, 5643-2, PINR #### [facility] ([id number]) [address] [place] [address] 66033 CANNABINOIDS Negative Normal NEG [facility] Comment on above: Result Comment: Nora abinoids/THC screening cut off value = 50 ng/mL Performed By: #### 1 9123-9, 28003-3, CMP, 90491-7, 48763-6, CBCA, 5643-2, PINR #### [facility] ([id number]) [address] [place] [address] 23902 COCAINE METABOLITE Negative Normal NEG [facility] Comment on above: Result Comment: Coca ine screening cut off value = 300 ng/mL Performed By: #### 1 9123-9, 67499-8, CMP, 27107-6, 30869-4, CBCA, 5643-2, PINR #### [facility] ([id number]) [address] [place] [address] 55558 ECSTASY Negative Normal NEG [facility] Comment on above: Result Comment: Ecst asy screening cut off value = 500 ng/mL This report is intended for use in clinical monitoring or management of patients. Performed By: #### 1 9123-9, 89566-2, CMP, 38224-3, 32570-1, CBCA, 5643-2, PINR #### [facility] ([id number]) [address] [place] [address] 82409 METHADONE Negative Normal NEG [facility] Comment on above: Result Comment: Meth adone screening cut off value = 300 ng/mL. Performed By: #### 1 9123-9, 90334-0, CMP, 84726-3, 44770-2, CBCA, 5643-2, PINR #### [facility] ([id number]) [address] [place] [address] 61203 OPIATES Negative Normal NEG [facility] Comment on above: Result Comment: Opia brennen screening cut off value = 300 ng/mL NOTE: This test is used for the detection of codeine, hydrocodone (>1000 ng/mL), morphine and hydromorphone (>900 ng/mL) in urine. Performed By: #### 1 9123-9, 27260-9, CMP, 67431-9, 59576-0, CBCA, 5643-2, PINR #### [facility] ([id number]) [address] [place] [address] 17230 OXYCODONE Negative Normal NEG [facility] Comment on above: Result Comment: Oxyc odone screening cut off value = 300 ng/mL NOTE: This test is used for the detection of oxycodone and oxymorphone in urine. Performed By: #### 1 9123-9, 69958-1, CMP, 63281-5, 19503-4, CBCA, 5643-2, PINR #### [facility] ([id number]) [address] [place] [address] 78215 PHENCYCLIDINE Negative Normal NEG [facility] Comment on above: Result Comment: Phen cyclidine screening cut off value = 25 ng/mL Performed By: #### 1 9123-9, 70601-6, CMP, 31343-0, 69763-2, CBCA, 5643-2, PINR #### [facility] ([id number]) [address] [place] [address] 59332 ETHANOLon 08-09-2024 Ethanol [Mass/Vol] mg/dL Normal 0.00-0.08 [facility] Comment on above: Result Comment: This report is intended for use in clinical monitoring or management of patients. Performed By: #### 1 9123-9, 81288-1, [facility], 29139-6, 21437-9, CBCA, 5643-2, PINR #### [facility] ([id number]) [address] [place] [address] 92542 Fibrin D-dimer DDU (PPP) [Ma ss/Vol]on 08-09-2024 D DIMER 167 ng/mL DDU Normal <255 [facility] Comment on above: Result Comment: Results <255 ng/mL DDU: The presence of a VTE can safely be excluded with a negative D-Dimer result and Wells score. A negative result doesn't exclude the possibility of DIC. The test be repeated along with other diagnostic tests if the patient's symptoms persist or worsen. [email or web address] Performed By: #### 1 9123-9, 79299-0, CMP, 97774-4, 48154-2, CBCA, 5643-2, PINR #### [facility] ([id number]) [address] [place] [address], [place] [address] MAGNESIUMon 08-09-2024 Magnesium [Mass/Vol] 1.4 mg/dL Low 1.8-2.6 [facility] Comment on above: Performed By: #### 1 9123-9, 64445-0, CMP, 35831-9, 03961-1, CBCA, 5643-2, PINR #### [facility] ([id number]) [address] [place] [address] 27156 PROTIME AND INRon 08-09-2024 INR Coag (PPP) [Relative time] 1.2 {INR} High 0.8-1.1 [facility] Comment on above: Performed By: #### 1 9123-9, 22216-4, CMP, 71323-0, 66172-6, CBCA, 5643-2, PINR #### [facility] ([id number]) [address] [place] [address] [place] [address] PT Coag (PPP) [Time] 14.3 s High 9.8-13.2 [facility] Comment on above: Result Comment: NEW REFERENCE RANGE Performed By: #### 1 9123-9, 85673-6, CMP, 37606-7, 86703-7, CBCA, 5643-2, PINR #### [facility] ([id number]) [address] [place] [address], [place] [address] Troponin I.cardiac High sens itivity method [Mass/Vol]on 08-09-2024 1 HOUR TROP I, HIGH SENSITIVITY 10 ng/L Normal <21 [facility] Comment on above: Performed By: #### 1 9123-9, 29201-8, CMP, 72403-5, 24591-4, CBCA, 5643-2, PINR #### [facility] ([id number]) [address] [place] [address] 96453 TROPONIN I, HIGH SENSITIVITY 8 ng/L Normal <21 [facility] Comment on above: Performed By: #### 1 9123-9, 92694-5, CMP, 18563-1, 28571-7, CBCA, 5643-2, PINR #### [facility] ([id number]) [address] [place] [address], [place] [address] URINALYSISon 08-09-2024 Bilirubin Ql (U) Negative Normal NEG [facility] Comment on above: Performed By: #### 1 9123-9, 13603-6, CMP, 35449-3, 53662-3, CBCA, 5643-2, PINR #### [facility] ([id number]) [address] [place] [address], [place] [address] BLOOD/HGB Negative Normal NEG [facility] Comment on above: Performed By: #### 1 9123-9, 90050-4, CMP, 33933-4, 02862-2, CBCA, 5643-2, PINR #### [facility] ([id number]) [address] [place] [address], [place] [address] Color (U) YELLOW Normal YELLOW [facility] Comment on above: Performed By: #### 1 9123-9, 73079-6, CMP, 71420-4, 71946-5, CBCA, 5643-2, PINR #### [facility] ([id number]) [address] [place] [address], [place] [address] Glucose Ql (U) Negative Normal NEG [facility] Comment on above: Performed By: #### 1 9123-9, 64233-1, CMP, 77371-2, 40432-8, CBCA, 5643-2, PINR #### [facility] ([id number]) [address] [place] [address] 97219 Ketones Ql (U) Negative Normal NEG [facility] Comment on above: Performed By: #### 1 9123-9, 36680-8, CMP, 87430-9, 32177-7, CBCA, 5643-2, PINR #### [facility] ([id number]) [address] [place] [address] 56545 Leukocyte esterase Test strip Ql (U) Negative Normal NEG [facility] Comment on above: Performed By: #### 1 9123-9, 78234-7, CMP, 39352-7, 51791-9, CBCA, 5643-2, PINR #### [facility] ([id number]) [address] [place] [address] 36509 Nitrite Ql (U) Negative Normal NEG [facility] Comment on above: Performed By: #### 1 9123-9, 03196-4, CMP, 67350-5, 85234-2, CBCA, 5643-2, PINR #### [facility] ([id number]) [address] [place] [address] 25821 pH (U) 6.0 [pH] Normal 5.0-8.5 [facility] Comment on above: Performed By: #### 1 9123-9, 50207-4, CMP, 03100-6, 96477-6, CBCA, 5643-2, PINR #### [facility] ([id number]) [address] [place] [address] 70173 Protein Ql (U) Negative Normal NEG [facility] Comment on above: Performed By: #### 1 9123-9, 69999-8, CMP, 37093-8, 97120-8, CBCA, 5643-2, PINR #### [facility] ([id number]) [address] [place] [address], [place] [address] Specific gravity (U) [Rel density] 1.025 Normal 1.003-1.03 5 [facility] Comment on above: Performed By: #### 1 9123-9, 02517-4, CMP, 12248-5, 15005-9, CBCA, 5643-2, PINR #### [facility] ([id number]) [address] [place] [address], [place] [address] TURBIDITY CLEAR Normal CLEAR [facility] Comment on above: Performed By: #### 1 9123-9, 48964-4, CMP, 47521-2, 07692-6, CBCA, 5643-2, PINR #### [facility] ([id number]) [address] [place] [address], [place] [address] Urobilinogen Qn (U) 0.2 {Temo'U}/dL Normal <1.1 [facility] Comment on above: Performed By: #### 1 9123-9, 55928-6, CMP, 76155-2, 91875-9, CBCA, 5643-2, PINR #### [facility] ([id number]) [address] [place] [address], [place] [address] URN MACROSCOPIC NURon 2023 BILIRUBIN FRANKLIN Negative Normal NEG [facility] Comment on above: Performed By: #### N UM #### [facility] ([id number]) [address] [place] [address], [place] [address] BLOOD/HGB FRANKLIN Negative Normal NEG [facility] Comment on above: Performed By: #### N UM #### [facility] ([id number]) [address] [place] [address], [place] [address] GLUCOSE FRANKLIN Negative Normal NEG [facility] Comment on above: Performed By: #### N UM #### [facility] ([id number]) [address] [place] [address] KETONES [place] Negative Normal NEG [facility] Comment on above: Performed By: #### N UM #### [facility] ([id number]) [address] [place] [address] LEUKOCYTE ESTERASE [place] Negative Normal NEG [facility] Comment on above: Performed By: #### N UM #### [facility] ([id number]) [address] [place] [address] NITRITE [place] Negative Normal NEG [facility] Comment on above: Performed By: #### N UM #### [facility] ([id number]) [address] [place] [address] PH [place] 5.5 Normal 5.0-8.5 [facility] Comment on above: Performed By: #### N UM #### [facility] ([id number]) [address] [place] [address] PROTEIN [place] Negative Normal NEG [facility] Comment on above: Performed By: #### N UM #### [facility] ([id number]) [address] [place] [address] SPECIFIC GRAVITY [place] 1.020 Normal 1.003-[address] [place] [address] Comment on above: Performed By: #### N UM #### [facility] ([id number]) [address] [place] [address] UROBILINOGEN [place] 0.2 eu/dL Normal <1.1 [facility] Comment on above: Performed By: #### N UM #### [facility] ([id number]) [address] [place] [address] aPTT Coag (PPP) [Time]on aPTT Coag (Bld) [Time] 33 s Normal 26-37 Pr [facility] Comment on above: Result Comment: NEW REFERENCE RANGE Performed By: #### 1 9123-9, 95426-8, CMP, 52502-0, 48206-8, CBCA, 5643-2, PINR #### [facility] [facility] ([id number]) [address] [place] [address], [place] [address] 36on 04-18-2024 36 From: Jessica muñoz MD Sent: 04/18/2024 12:32 PM EDT To: Yuridia Nuñez MA Subject: RE: Scan Please inform him that blood testing for clotting disorder is negative. He should follow up with Dr Godwin for cancer screening. Pt has been notified [facility] Office Visiton 04-06-2024 Follow-up visit [id number] Jeb Riddle 1950 M Date Provider Department Center 04/06/2024 JESSICA JAMISON CARD [facility] Family History Problem Relation Age of Onset Diabetes Mother Coronary artery disease Mother Heart attack Father Diabetes Father Coronary artery disease Father Family Status - Relation Status Age at Mother Father Level of Service:71789 [place] OFFICE/OUTPATIENT ESTABLISHED MOD MDM 30 MIN [facility] 36on 02-17-2024 36 Patient called back and said he is taking meds as prescribed at last visit with Dr. Forrester. I made him apt with Dr. Forrester end of Mar since he is not here in Apr. [facility] 36on 02-15-2024 36 Regarding echo from 02/02/2024: MD Yuridia Herman MA Has he been taking meds as I recommended at last visit? 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 He should come for a visit in 3 months. LM w/ sister Mary to return my call. [facility] Activated partial thrombopla stin time (aPTT) in platelet poor plasma by coagulation aOrdered By: Naima Boyd on 01-09-2024 aPTT Coag (PPP) [Time] 29.1 s 25.1-36.5 [facility] Comment on above: A hematocrit value g reater than 55% may lead to inaccurate results in coagulation testing. Patients having hematocrit values >55% require a special collection tube for coagulation studies. Please contact the laboratory at [phone] for redraw instructions. B-Type Natriuretic Peptideon 01-09-2024 Natriuretic peptide B (Bld) [Mass/Vol] 172.0 pg/mL High 5-100 [facility] Comment on above: Result Comment: PERF ORMED BY: [facility] [address] [place] [address] PATHOLOGIST WOODEN FENCE ERECTOR RADHA BARRON M.D. Performed By: #### B VOCATIONAL EDUCATION TEACHER, HS TROP, BMP, CK, DIFF CBC ####[address] Basic Metabolic Panelon 12-14 Anion gap [Moles/Vol] Not performed Normal 6.0-15.0 [facility] Comment on above: Performed By: #### B VOCATIONAL EDUCATION TEACHER, HS TROP, BMP, CK, DIFF CBC ####[address] Calcium [Mass/Vol] 8.7 mg/dL Normal 8.6-10.3 [facility] Comment on above: Performed By: #### B VOCATIONAL EDUCATION TEACHER, HS TROP, BMP, CK, DIFF CBC ####[address] Chloride [Moles/Vol] 109 mmol/L High 98-107 [facility] Comment on above: Performed By: #### B VOCATIONAL EDUCATION TEACHER, HS TROP, BMP, CK, DIFF CBC ####[address] CO2 [Moles/Vol] 22.4 mmol/L Normal 21.0-31.0 [facility] Comment on above: Performed By: #### B VOCATIONAL EDUCATION TEACHER, HS TROP, BMP, CK, DIFF CBC ####[address] Creatinine [Mass/Vol] 1.16 mg/dL Normal 0.70-1.30 [facility] Comment on above: Performed By: #### B VOCATIONAL EDUCATION TEACHER, HS TROP, BMP, CK, DIFF CBC ####[address] Creatinine Clr Calc Pharmacy 64.96 Normal [facility] Comment on above: Result Comment: PERF ORMED BY: [facility] [address] [place] [address] PATHOLOGIST WOODEN FENCE ERECTOR RADHA BARRON M.D. Performed By: #### B VOCATIONAL EDUCATION TEACHER, HS TROP, BMP, CK, DIFF CBC ####[address] GFR/1.73 sq M.predicted MDRD (S/P/Bld) [Vol rate/Area] mL/min/{1.73_m2} Normal [facility] Comment on above: Performed By: #### B VOCATIONAL EDUCATION TEACHER, HS TROP, BMP, CK, DIFF CBC ####[address] Glucose [Mass/Vol] 95 mg/dL Normal 70-100 [facility] Comment on above: Result Comment: [facility] Glucose Reference Range is dependent on time and content of last meal. Glucose of more than 200 mg/dL in a nonstressed, ambulatory subject supports the diagnosis of Diabetes Mellitus. ADA recommended reference range Performed By: #### B VOCATIONAL EDUCATION TEACHER, HS TROP, BMP, CK, DIFF CBC ####[address] Potassium Normal 3.5-5.1 [facility] Comment on above: Result Comment: Spec imen hemolyzed, redraw requested Performed By: #### B VOCATIONAL EDUCATION TEACHER, HS TROP, BMP, CK, DIFF CBC ####[address] Sodium [Moles/Vol] 142 mmol/L Normal 136-145 [facility] Comment on above: Performed By: #### B VOCATIONAL EDUCATION TEACHER, HS TROP, BMP, CK, DIFF CBC ####[address] Urea nitrogen [Mass/Vol] 20 mg/dL Normal 7-25 [facility] Comment on above: Performed By: #### B VOCATIONAL EDUCATION TEACHER, HS TROP, BMP, CK, DIFF CBC ####[facility] [id number] [place] [id number] [place] Basophils Auto (Bld) [#/Vol] Ordered By: Naima Boyd on 01-09-2024 Basophils (Bld) [#/Vol] N/A [facility] Basophils/100 WBC Auto (Bld) Ordered By: Naima Bullimore on 01-09-2024 Basophils/100 WBC (Bld) N/A [facility] Basophils/100 WBC Manual cnt (Bld)Ordered By: Naima Godwinimore on 01-09-2024 Basophils/100 WBC (Bld) 0 % 0-[address] [facility] CT angio chest PE protocolon 01-09-2024 CT angio chest PE protocol [facility] Main [address] [place] [id number] Scan Report Signed Patient: Jeb Riddle MR#: [id number] : 1950 Acct:[id number] Age/Sex: 73 / M ADM Date: 01/09/24 Loc: ER Room: Type: [facility] ER Attending Dr: Copies to: SABA [...] Jeb Collins M.D.01/09/2024 6:17 PM Dictation Location: [place] [address] Transcribed By: [facility] 01/09/241816 Dictated By: Jeb Collins II, MD 01/09/241810 Signed By: 01/09/241816 Normal [facility] Calcium [Mass/volume] in Ser um or PlasmaOrdered By: Naima Boyd on 01-09-2024 Calcium [Mass/Vol] 8.7 mg/dL 8.6-10.3 [facility] Carbon dioxide, total [Moles /volume] in Serum or PlasmaOrdered By: Naima Boyd on 01-09-2024 CO2 [Moles/Vol] 22.4 mmol/L 21.0-31.0 [facility] Chloride [Moles/volume] in S pooja or PlasmaOrdered By: Naima Boyd on 01-09-2024 Chloride [Moles/Vol] 109 mmol/L 98-107 [facility] Coagulation Profileon 2023 aPTT Coag (Bld) [Time] 29.1 s Normal 25.1-36.5 [facility] Comment on above: Order Comment: REDRA W Result Comment: A he matocrit value greater than 55% may lead to inaccurate results in coagulation testing. Patients having hematocrit values >55% require a special collection tube for coagulation studies. Please contact the laboratory at [phone] for redraw instructions. Performed By: #### P P, DDIMER ####[place] [id number] [facility] INR Coag (PPP) [Relative time] 1.0 {INR} Normal [facility] Comment on above: [...] 4.5 Performed By: #### P P, DDIMER ####[place] [id number] [facility] PT Coag (PPP) [Time] 11.9 s Normal 9.0-12.9 [facility] Comment on above: Order Comment: REDRA W Result Comment: A he matocrit value greater than 55% may lead to inaccurate results in coagulation testing. Patients having hematocrit values >55% require a special collection tube for coagulation studies. Please contact the laboratory at [phone] for redraw instructions. Performed By: #### P P, DDIMER ####[place] [id number] [facility] Creatine Kinaseon 01-09-2024 CK [Catalytic activity/Vol] 81 U/L Normal [facility] Comment on above: Performed By: #### B VOCATIONAL EDUCATION TEACHER, HS TROP, BMP, CK, DIFF CBC ####[place] [id number] [facility] Creatine kinase [Enzymatic a ctivity/volume] in Serum or PlasmaOrdered By: Naima Boyd on 01-09-2024 CK [Catalytic activity/Vol] 81 U/L [facility] Creatinine [Mass/volume] in Serum or PlasmaOrdered By: Naima Godwinimore on 01-09-2024 Creatinine [Mass/Vol] 1.16 mg/dL 0.70-1.30 [facility] D-Dimer High Sensitivityon 0 01-09-2024 D-Dimer High Sensitivity 1905 ng/mL High 0-243 [facility] Comment on above: [...] coagulation studies. Please contact the laboratory at [phone] for redraw instructions. PERFORMED BY: [address] [place] [address] PATHOLOGIST WOODEN FENCE ERECTOR RADHA BARRON M.D. Performed By: #### P P, DDIMER ####[place] [id number] [facility] Diff and CBCon 01-09-2024 Basophils/100 WBC (Bld) 0 % Normal 0-2 [facility] Comment on above: Performed By: #### B VOCATIONAL EDUCATION TEACHER, HS TROP, BMP, CK, DIFF CBC ####[place] [id number] [facility] Eosinophils/100 WBC (Bld) 4 % High 1-3 [facility] Comment on above: Performed By: #### B VOCATIONAL EDUCATION TEACHER, HS TROP, BMP, CK, DIFF CBC ####[place] [id number] [facility] Erythrocyte distribution width (RBC) [Ratio] 14.9 % High 12.0-14.8 [facility] Comment on above: Performed By: #### B VOCATIONAL EDUCATION TEACHER, HS TROP, BMP, CK, DIFF CBC ####[place] [id number] [facility] Hematocrit (Bld) [Volume fraction] 41.9 % Normal 38.8-50.0 [facility] Comment on above: Performed By: #### B VOCATIONAL EDUCATION TEACHER, HS TROP, BMP, CK, DIFF CBC ####[address] Hemoglobin (Bld) [Mass/Vol] 14.1 g/dL Normal 13.0-17.0 [facility] Comment on above: Performed By: #### B VOCATIONAL EDUCATION TEACHER, HS TROP, BMP, CK, DIFF CBC ####[address] Lymphocytes/100 WBC (Bld) 27 % Normal 18-42 [facility] Comment on above: Performed By: #### B VOCATIONAL EDUCATION TEACHER, HS TROP, BMP, CK, DIFF CBC ####[address] MCH (RBC) [Entitic mass] 32.0 pg Normal 27.5-35.2 [facility] Comment on above: Performed By: #### B VOCATIONAL EDUCATION TEACHER, HS TROP, BMP, CK, DIFF CBC ####[address] MCV (RBC) [Entitic vol] 95.1 fL Normal 83.5-101 [facility] Comment on above: Performed By: #### B VOCATIONAL EDUCATION TEACHER, HS TROP, BMP, CK, DIFF CBC ####[address] Mean Corpuscular HGB Conc 33.6 g/dL Normal 32.5-35.6 [facility] Comment on above: Performed By: #### B VOCATIONAL EDUCATION TEACHER, HS TROP, BMP, CK, DIFF CBC ####[address] Monocytes/100 WBC (Bld) 25.58 % High 0.00-20.00 [facility] Comment on above: Result Comment: For adults in ED, MDW > 20.0 may be associated with a higher risk of sepsis during the first 12 hrs of hospital admission Performed By: #### B VOCATIONAL EDUCATION TEACHER, HS TROP, BMP, CK, DIFF CBC ####[place] [address] [place] Monocytes/100 WBC (Bld) 7 % Normal 2-11 [facility] Comment on above: Performed By: #### B VOCATIONAL EDUCATION TEACHER, HS TROP, BMP, CK, DIFF CBC ####[address] Nucleated Red Blood Cell 0 /100{WBC} Normal 0-0 [facility] Comment on above: Performed By: #### B VOCATIONAL EDUCATION TEACHER, HS TROP, BMP, CK, DIFF CBC ####[address] Platelet Estimate Normal Normal Normal [facility] Comment on above: Performed By: #### B VOCATIONAL EDUCATION TEACHER, HS TROP, BMP, CK, DIFF CBC ####[address] Platelet mean volume (Bld) [Entitic vol] 8.6 fL Normal 6.6-10.1 [facility] Comment on above: Performed By: #### B VOCATIONAL EDUCATION TEACHER, HS TROP, BMP, CK, DIFF CBC ####[address] Platelet Morphology Normal Normal Normal [facility] Comment on above: Performed By: #### B VOCATIONAL EDUCATION TEACHER, HS TROP, BMP, CK, DIFF CBC ####[address] Platelets (Bld) [#/Vol] 240 10*3/uL Normal 150-450 [facility] Comment on above: Performed By: #### B VOCATIONAL EDUCATION TEACHER, HS TROP, BMP, CK, DIFF CBC ####[address] Plt Comment SEE COMMENT BELOW Normal [facility] Comment on above: Result Comment: NO C LOTS, NO CLUMPS, SHORT DRAW LFM PERFORMED BY: [facility] [address] [place] [address] PATHOLOGIST WOODEN FENCE ERECTOR RADHA BARRON M.D. Performed By: #### B VOCATIONAL EDUCATION TEACHER, HS TROP, BMP, CK, DIFF CBC ####[address] RBC (Bld) [#/Vol] 4.41 10*6/uL Normal 3.90-5.60 [facility] Comment on above: Performed By: #### B VOCATIONAL EDUCATION TEACHER, HS TROP, BMP, CK, DIFF CBC ####[address] RBC morphology finding Nom (Bld) Normal Normal Normal [facility] Comment on above: Performed By: #### B VOCATIONAL EDUCATION TEACHER, HS TROP, BMP, CK, DIFF CBC ####[address] Segmented neutrophils/100 WBC (Bld) 62 % Normal 50-70 [facility] Comment on above: Performed By: #### B VOCATIONAL EDUCATION TEACHER, HS TROP, BMP, CK, DIFF CBC ####[address] WBC (Bld) [#/Vol] 7.6 10*3/uL Normal 4.1-10.5 [facility] Comment on above: Performed By: #### B VOCATIONAL EDUCATION TEACHER, HS TROP, BMP, CK, DIFF CBC ####[address] WBC (Bld) [#/Vol] 8.4 10*3/uL Normal 4.1-10.5 [facility] Comment on above: Performed By: #### B VOCATIONAL EDUCATION TEACHER, HS TROP, BMP, CK, DIFF CBC ####[address] ECG 12 lead ECGon 01-09-2024 ECG 12 lead ECG [facility] Main [address] [place] [address] Electrocardiograph Report Signed Patient: Jeb Riddle MR#: [id number] : 1950 Acct:[id number] Age/Sex: 73 / M ADM Date: 01/09/24 Loc: ER Room: Type: [facility] ER Attending Dr: Ordering Provider: SABA [...] By Adam Patterson DO 1828 Normal [facility] Eosinophils Auto (Bld) [#/Vo l]Ordered By: Naima Boyd on 01-09-2024 Eosinophils (Bld) [#/Vol] N/A [facility] Eosinophils/100 WBC Auto (Bl d)Ordered By: Naima Rutherfordore on 01-09-2024 Eosinophils/100 WBC (Bld) N/A [facility] Eosinophils/100 WBC Manual c nt (Bld)Ordered By: Naima Boyd on 01-09-2024 Eosinophils/100 WBC (Bld) 4 % 1-[address] [facility] Erythrocyte distribution wid th Auto (RBC) [Ratio]Ordered By: Naima Boyd on 01-09-2024 Erythrocyte distribution width (RBC) [Ratio] 14.9 % 12.0-14.[address] [facility] Fibrin D-dimer [Presence] in Platelet poor plasma by Latex agglutinationOrdered By: Naima Boyd on 01-09-2024 Fibrin D-dimer LA Ql (PPP) 1905 ng/mL 0-[address] [facility] Comment on above: The reference [...] coagulation studies. Please contact the laboratory at [phone] for redraw instructions. Glucose [Mass/volume] in Ser um or PlasmaOrdered By: Naima Boyd on 01-09-2024 Glucose [Mass/Vol] 95 mg/dL 70-100 [facility] Comment on above: ADA recommended refe rence rangeRandom Glucose Reference Range is dependent on time and content of last meal. Glucose of more than 200 mg/dL in a nonstressed, ambulatory subject supports the diagnosis of Diabetes Mellitus. Hematocrit Auto (Bld) [Volum e fraction]Ordered By: Naima Boyd on 01-09-2024 Hematocrit (Bld) [Volume fraction] 41.9 % 38.8-50.[address] [facility] Hemoglobin [Mass/volume] in BloodOrdered By: Naima Boyd on 01-09-2024 Hemoglobin (Bld) [Mass/Vol] 14.1 g/dL 13.0-17.[address] [facility] INR in Platelet poor plasma by Coagulation assayOrdered By: Naima Boyd on 01-09-2024 INR Coag (PPP) [Relative time] 1.0 {INR} [facility] Comment on above: INR Therapeutic [...] (Bld) [#/Vol] 7.6 10*3/uL 4.1-10.[address] [facility] Lymphocytes Auto (Bld) [#/Vo l]Ordered By: Naima Boyd on 01-09-2024 Lymphocytes (Bld) [#/Vol] N/A [facility] Lymphocytes/100 WBC Auto (Bl d)Ordered By: Naima Bullimore on 01-09-2024 Lymphocytes/100 WBC (Bld) N/A [facility] Lymphocytes/100 WBC Manual c nt (Bld)Ordered By: Naima Bullimore on 01-09-2024 Lymphocytes/100 WBC (Bld) 27 % 18-[address] [facility] MCH Auto (RBC) [Entitic mass ]Ordered By: Naima Bullimore on 01-09-2024 MCH (RBC) [Entitic mass] 32.0 pg 27.5-35.[address] [facility] MCHC Auto (RBC) [Mass/Vol]Or dered By: Naima Bullimore on 01-09-2024 MCHC (RBC) [Mass/Vol] 33.6 g/dL 32.5-35.6 [facility] MCV Auto (RBC) [Entitic vol] Ordered By: Naima Bullimore on 01-09-2024 MCV (RBC) [Entitic vol] 95.1 fL 83.5-[address] [facility] Monocyte distribution width [Entitic volume] in Blood by AutomatedOrdered By: Naima Godwinimore on 01-09-2024 Monocyte distribution width Auto (Bld) [Entitic vol] 25.58 % 0.00-20.[address] [facility] Comment on above: For adults in ED, MD W > 20.0 may be associated with a higher risk of sepsis during the first 12 hrs of hospital admission Monocytes Auto (Bld) [#/Vol] Ordered By: Naima Bullimore on 01-09-2024 Monocytes (Bld) [#/Vol] N/A [facility] Monocytes/100 WBC Auto (Bld) Ordered By: Naima Bullimore on 01-09-2024 Monocytes/100 WBC (Bld) N/A [facility] Monocytes/100 WBC Manual cnt (Bld)Ordered By: Naima Bullimore on 01-09-2024 Monocytes/100 WBC (Bld) 7 % 2-[address] [facility] Natriuretic peptide B [Mass/ Vol]Ordered By: Naima Bullimore on 01-09-2024 Natriuretic peptide B (Bld) [Mass/Vol] 172.0 pg/mL 5-[address] [facility] Neutrophils Auto (Bld) [#/Vo l]Ordered By: Naima Bullimore on 01-09-2024 Neutrophils (Bld) [#/Vol] N/A [facility] Neutrophils/100 WBC Auto (Bl d)Ordered By: Naima Bullimore on 01-09-2024 Neutrophils/100 WBC (Bld) N/A [facility] No Panel InformationOrdered By: Naima Godwinimore on 01-09-2024 Estimated GFR (CKD-EPI) > 60.0 mL/Min [facility] Creatinine Clearance (Chem 64.[address] [facility] Platelet Comment See comment below F [facility] Comment on above: NO CLOTS, NO CLUMPS, SHORT DRAW LFM Nucleated RBC/100 WBC Manual cnt (Bld) [Ratio]Ordered By: Naima Godwinimore on 01-09-2024 Nucleated RBC/100 WBC (Bld) [Ratio] 0 /100{WBC} 0-[address] [facility] Nucleated erythrocytes [Pres ence] in Blood by Automated countOrdered By: Naima Rutherfordore on 01-09-2024 Nucleated RBC Auto Ql (Bld) N/A [facility] Platelet adequacy [Presence] in Blood by Light microscopyOrdered By: Naima Godwinimore on 01-09-2024 Platelets LM Ql (Bld) Normal Normal [facility] Platelet mean volume Auto (B ld) [Entitic vol]Ordered By: Naima Godwinimore on 01-09-2024 Platelet mean volume (Bld) [Entitic vol] 8.6 fL 6.6-10.[address] [facility] Platelet morphology finding [Identifier] in BloodOrdered By: Naima Bullimore on 01-09-2024 Platelet morphology finding Nom (Bld) Normal Normal [facility] Platelets Auto (Bld) [#/Vol] Ordered By: Naima Bullimore on 01-09-2024 Platelets (Bld) [#/Vol] 240 10*3/uL 150-[address] [facility] Potassium [Moles/volume] in Serum or PlasmaOrdered By: Naima Godwinimore on 01-09-2024 Potassium [Moles/Vol] 3.9 mmol/L 3.5-5.1 [facility] Prothrombin time (PT)Ordered By: Naima Boyd on 01-09-2024 PT Coag (PPP) [Time] 11.9 s 9.0-12.9 [facility] Comment on above: A hematocrit value g reater than 55% may lead to inaccurate results in coagulation testing. Patients having hematocrit values >55% require a special collection tube for coagulation studies. Please contact the laboratory at [phone] for redraw instructions. RBC Auto (Bld) [#/Vol]Ordere d By: Naima Boyd on 01-09-2024 RBC (Bld) [#/Vol] 4.41 10*6/uL 3.90-5.60 [facility] RBC morphologyOrdered By: Sabine Boyd on 01-09-2024 RBC morphology finding Nom (Bld) Normal Normal [facility] Redraw Potassiumon Potassium [Moles/Vol] 3.9 mmol/L Normal 3.5-5.1 [facility] Comment on above: Result Comment: PERF ORMED BY: [facility] [address] [address] PATHOLOGIST WOODEN FENCE ERECTOR RADHA BARRON M.D. Performed By: #### R EDRAW K ####[facility] [id number] [place] [id number] [facility] Segmented neutrophils/100 WB C Manual cnt (Bld)Ordered By: Naima Boyd on 01-09-2024 Segmented neutrophils/100 WBC (Bld) 62 % 50-[address] [facility] Serum or plasma anion gap de terminationOrdered By: Naima Boyd on 01-09-2024 Anion gap [Moles/Vol] TNP [facility] Comment on above: Test not performed Sodium [Moles/volume] in Ser um or PlasmaOrdered By: Naima Boyd on 01-09-2024 Sodium [Moles/Vol] 142 mmol/L 136-145 [facility] Troponin I High Sensitivityo n 01-09-2024 Troponin I High Sensitivity 13.1 pg/mL Normal 0.0-20.0 [facility] Comment on above: Result Comment: PERF ORMED BY: [facility] [address] [place] [address] PATHOLOGIST WOODEN FENCE ERECTOR RADHA BARRON M.D. Performed By: #### H S TROP #### [facility] [address] [place] [id number] [facility] Troponin I High Sensitivity 12.5 pg/mL Normal 0.0-20.0 [facility] Comment on above: Result Comment: PERF ORMED BY: [place] [address] PATHOLOGIST WOODEN FENCE ERECTOR RADHA BARRON M.D. Performed By: #### B VOCATIONAL EDUCATION TEACHER, HS TROP, BMP, CK, DIFF CBC ####[facility] [id number] [place] [address] [facility] Troponin I.cardiac [Mass/vol ume] in Serum or Plasma by Detection limit <= 0.01 ng/Ordered By: Naima Boyd on 01-09-2024 Troponin I.cardiac DL <= 0.01 ng/mL [Mass/Vol] 13.1 pg/mL 0.0-20.[address] [facility] Urea nitrogen [Mass/volume] in Serum or PlasmaOrdered By: Naima Boyd on 01-09-2024 Urea nitrogen [Mass/Vol] 20 mg/dL 7-[address] [facility] WBC Auto (Bld) [#/Vol]Ordere d By: Naima Boyd on 01-09-2024 WBC (Bld) [#/Vol] 8.4 10*3/uL 4.1-10.5 [facility] XR chest 2V*on 01-09-2024 XR chest 2V* [facility] Main [address] [place], [place] [id number] XRay Report Signed Patient: Jeb Riddle MR#: [id number] : 1950 Acct:[id number] Age/Sex: 73 / M ADM Date: 01/09/24 Loc: ER Room: Type: [facility] ER Attending Dr: Copies to: SABA [...] Jeb Collins M.D.01/09/2024 4:11 PM Dictation Location: [place] [address] Transcribed By: KAROLINA 01/09/24 1611 Dictated By: Jeb Collins II, MD 01/09/24 1610 Signed By: 01/09/24 1611 Normal [facility] ECG 12 lead ECGon 12-18-2023 ECG 12 lead ECG [facility] [place] [address] Electrocardiograph Report Signed Patient: Jeb Riddle MR#: [id number] : 1950 Acct:[id number] Age/Sex: 73 / M ADM Date: 12/18/23 Loc: ER Room: Type: [facility] ER Attending Dr: Ordering Provider: Marie [...] was found Confirmed by RAMIRO CORTEZ DO ([id number]) on 12/18/2023 4:44:01 PM Referred By: Electronically Signed By:RAMIRO CORTEZ DO Transcribed By: MUS Signed By Ramiro Cortez DO 12/17 1644 Normal [facility] Office Visiton 12-09-2023 Follow-up visit [id number] Jeb Riddle Myles 1950 M Date Provider Department Center 12/09/2023 JESSICA JAMISON MISSY Acharyaevtommie Nicole Family History Problem Relation Age of Onset Diabetes Mother Coronary artery disease Mother Heart attack Father Diabetes Father Coronary artery disease Father Family Status - Relation Status Age at Mother Father Level of Service:38023 [place] OFFICE/OUTPATIENT ESTABLISHED MOD MDM 30 MIN Reason for Visit and Comments: Follow-up [602540] - 6 months Normal [facility] Activated partial thrombopla stin time (aPTT) in platelet poor plasma by coagulation aOrdered By: Ramiro Cortez on 03-03-2023 aPTT Coag (PPP) [Time] 29.7 s 25.1-36.5 [facility] B-Type Natriuretic Peptideon 03-03-2023 Natriuretic peptide B (Bld) [Mass/Vol] 52.0 pg/mL Normal 5-100 [facility] Comment on above: Result Comment: PERF ORMED BY: [facility] [address] [place] [address] PATHOLOGIST WOODEN FENCE ERECTOR RADHA BARRON M.D. Performed By: #### C BC, CK, PT, PTT, BMP, HS TROP, BNP ####[place] [id number] [place] [id number] [facility] Basic Metabolic Panelon 02-13 Anion gap [Moles/Vol] 10.6 mmol/L Normal 6.0-15.0 [facility] Comment on above: Performed By: #### C BC, CK, PT, PTT, BMP, HS TROP, BNP ####[place] [address] [place] [address] [facility] Calcium [Mass/Vol] 8.6 mg/dL Normal 8.6-10.3 [facility] Comment on above: Performed By: #### C BC, CK, PT, PTT, BMP, HS TROP, BNP ####[place] [id number] [place] [id number] [facility] Chloride [Moles/Vol] 108 mmol/L High 98-107 [facility] Comment on above: Performed By: #### C BC, CK, PT, PTT, BMP, HS TROP, BNP ####[address] CO2 [Moles/Vol] 24.6 mmol/L Normal 21.0-31.0 [facility] Comment on above: Performed By: #### C BC, CK, PT, PTT, BMP, HS TROP, BNP ####[address] Creatinine [Mass/Vol] 1.19 mg/dL Normal 0.70-1.30 [facility] Comment on above: Performed By: #### C BC, CK, PT, PTT, BMP, HS TROP, BNP ####[address] Creatinine Clr Calc Pharmacy 55.29 Normal [facility] Comment on above: Result Comment: PERF ORMED BY: [place] [address] PATHOLOGIST WOODEN FENCE ERECTOR RADHA BARRON M.D. Performed By: #### C BC, CK, PT, PTT, BMP, HS TROP, BNP ####[address] GFR/1.73 sq M.predicted MDRD (S/P/Bld) [Vol rate/Area] mL/min/{1.73_m2} Normal [facility] Comment on above: Performed By: #### C BC, CK, PT, PTT, BMP, HS TROP, BNP ####[address] Glucose [Mass/Vol] 93 mg/dL Normal 70-100 [facility] Comment on above: Result Comment: [place] Glucose Reference Range is dependent on time and content of last meal. Glucose of more than 200 mg/dL in a nonstressed, ambulatory subject supports the diagnosis of Diabetes Mellitus. ADA recommended reference range Performed By: #### C BC, CK, PT, PTT, BMP, HS TROP, BNP ####[address] Potassium [Moles/Vol] 4.2 mmol/L Normal 3.5-5.1 [facility] Comment on above: Performed By: #### C BC, CK, PT, PTT, BMP, HS TROP, BNP ####[facility] Sodium [Moles/Vol] 139 mmol/L Normal 136-145 [facility] Comment on above: Performed By: #### C BC, CK, PT, PTT, BMP, HS TROP, BNP ####[place] [id number] Urea nitrogen [Mass/Vol] 17 mg/dL Normal 7-25 [facility] Comment on above: Performed By: #### C BC, CK, PT, PTT, BMP, HS TROP, BNP ####[facility] Basophils Auto (Bld) [#/Vol] Ordered By: Ramiro Cortez on 03-03-2023 Basophils (Bld) [#/Vol] 0.0 10*3/uL 0.0-0.[address] [facility] Basophils/100 WBC Auto (Bld) Ordered By: Ramiro Cortez on 03-03-2023 Basophils/100 WBC (Bld) 0.4 % . [facility] Calcium [Mass/volume] in Ser um or PlasmaOrdered By: Ramiro Cortez on 03-03-2023 Calcium [Mass/Vol] 8.6 mg/dL 8.6-10.3 [facility] Carbon dioxide, total [Moles /volume] in Serum or PlasmaOrdered By: Ramiro Cortez on 03-03-2023 CO2 [Moles/Vol] 24.6 mmol/L 21.0-31.0 [facility] Chloride [Moles/volume] in S pooja or PlasmaOrdered By: Ramiro Cortez on 03-03-2023 Chloride [Moles/Vol] 108 mmol/L 98-107 [facility] Complete Blood Count Auto Di ffon 03-03-2023 Basophils (Bld) [#/Vol] 0.0 10*3/uL Normal 0.0-0.2 [facility] Comment on above: Result Comment: PERF ORMED BY: [place] [address] PATHOLOGIST WOODEN FENCE ERECTOR RADHA BARRON M.D. Performed By: #### C BC, CK, PT, PTT, BMP, HS TROP, BNP #### [address] Basophils/100 WBC (Bld) 0.4 % Normal . [facility] Comment on above: Performed By: #### C BC, CK, PT, PTT, BMP, HS TROP, BNP #### [address] Eosinophils (Bld) [#/Vol] 0.2 10*3/uL Normal 0.0-0.45 [facility] Comment on above: Performed By: #### C BC, CK, PT, PTT, BMP, HS TROP, BNP #### [address] Eosinophils/100 WBC (Bld) 2.4 % Normal . [facility] Comment on above: Performed By: #### C BC, CK, PT, PTT, BMP, HS TROP, BNP #### [address] Erythrocyte distribution width (RBC) [Ratio] 13.0 % Normal 12.0-14.8 [facility] Comment on above: Performed By: #### C BC, CK, PT, PTT, BMP, HS TROP, BNP #### [address] Hematocrit (Bld) [Volume fraction] 38.3 % Low 38.8-50.0 [facility] Comment on above: Performed By: #### C BC, CK, PT, PTT, BMP, HS TROP, BNP #### [address] Hemoglobin (Bld) [Mass/Vol] 12.9 g/dL Low 13.0-17.0 [facility] Comment on above: Performed By: #### C BC, CK, PT, PTT, BMP, HS TROP, BNP #### [address] Lymphocytes (Bld) [#/Vol] 2.6 10*3/uL Normal 1.00-4.8 [facility] Comment on above: Performed By: #### C BC, CK, PT, PTT, BMP, HS TROP, BNP #### [address] Lymphocytes/100 WBC (Bld) 28.3 % Normal . [facility] Comment on above: Performed By: #### C BC, CK, PT, PTT, BMP, HS TROP, BNP #### [address] MCH (RBC) [Entitic mass] 30.8 pg Normal 27.5-35.2 [facility] Comment on above: Performed By: #### C BC, CK, PT, PTT, BMP, HS TROP, BNP #### [address] MCV (RBC) [Entitic vol] 91.9 fL Normal 83.5-101 [facility] Comment on above: Performed By: #### C BC, CK, PT, PTT, BMP, HS TROP, BNP #### [address] Mean Corpuscular HGB Conc 33.6 g/dL Normal 32.5-35.6 [facility] Comment on above: Performed By: #### C BC, CK, PT, PTT, BMP, HS TROP, BNP #### [address] Monocytes (Bld) [#/Vol] 0.6 10*3/uL Normal 0.0-0.8 [facility] Comment on above: Performed By: #### C BC, CK, PT, PTT, BMP, HS TROP, BNP #### [address] Monocytes/100 WBC (Bld) 24.67 % High 0.00-20.00 [facility] Comment on above: Result Comment: For adults in ED, MDW > 20.0 may be associated with a higher risk of sepsis during the first 12 hrs of hospital admission Performed By: #### C BC, CK, PT, PTT, BMP, HS TROP, BNP #### [address] Monocytes/100 WBC (Bld) 6.5 % Normal . [facility] Comment on above: Performed By: #### C BC, CK, PT, PTT, BMP, HS TROP, BNP #### [address] Neutrophils (Bld) [#/Vol] 5.7 10*3/uL Normal 1.8-7.7 [facility] Comment on above: Performed By: #### C BC, CK, PT, PTT, BMP, HS TROP, BNP #### [address] Neutrophils/100 WBC (Bld) 62.4 % Normal . [facility] Comment on above: Performed By: #### C BC, CK, PT, PTT, BMP, HS TROP, BNP #### [address] NRBC% 0.1 /100{WBC} Normal 0-0.5 [facility] Comment on above: Performed By: #### C BC, CK, PT, PTT, BMP, HS TROP, BNP #### [address] Platelet mean volume (Bld) [Entitic vol] 8.2 fL Normal 6.6-10.1 [facility] Comment on above: Performed By: #### C BC, CK, PT, PTT, BMP, HS TROP, BNP #### [address] Platelets (Bld) [#/Vol] 234 10*3/uL Normal 150-450 [facility] Comment on above: Performed By: #### C BC, CK, PT, PTT, BMP, HS TROP, BNP #### [address] RBC (Bld) [#/Vol] 4.17 10*6/uL Normal 3.90-5.60 [facility] Comment on above: Performed By: #### C BC, CK, PT, PTT, BMP, HS TROP, BNP #### [facility] [address] WBC (Bld) [#/Vol] 9.2 10*3/uL Normal 4.1-10.5 [facility] Comment on above: Performed By: #### C BC, CK, PT, PTT, BMP, HS TROP, BNP #### [facility] [address] Creatine Kinaseon 03-03-2023 CK [Catalytic activity/Vol] 125 U/L Normal [facility] Comment on above: Performed By: #### C BC, CK, PT, PTT, BMP, HS TROP, BNP ####[facility] Creatine kinase [Enzymatic a ctivity/volume] in Serum or PlasmaOrdered By: Ramiro Cortez on 03-03-2023 CK [Catalytic activity/Vol] 125 U/L - [facility] Creatinine [Mass/volume] in Serum or PlasmaOrdered By: Ramiro Cortez on 03-03-2023 Creatinine [Mass/Vol] 1.19 mg/dL 0.70-1.30 [facility] ECG 12 lead ECGon 03-03-2023 ECG 12 lead ECG [facility] Main [place] [address] [place] [address] Electrocardiograph Report Signed Patient: Jeb Riddle MR#: [id number] : 1950 Acct:[id number] Age/Sex: 72 / M ADM Date: 03/03/23 Loc: ER Room: Type: [facility] ER Attending Dr: Ordering Provider: Ramiro [...] ECGs available Confirmed by RAMIRO CORTEZ DO ([id number]) on 03/03/2023 8:14:27 PM Referred By: Electronically Signed By:RAMIRO CORTEZ DO Transcribed By: MUS Signed By Ramiro Cortez DO 03/03 Normal [facility] Eosinophils Auto (Bld) [#/Vo l]Ordered By: Ramiro Cortez on 03-03-2023 Eosinophils (Bld) [#/Vol] 0.2 10*3/uL 0.0-0.[address] [facility] Eosinophils/100 WBC Auto (Bl d)Ordered By: Ramiro Cortez on 03-03-2023 Eosinophils/100 WBC (Bld) 2.4 % . [facility] Erythrocyte distribution wid th Auto (RBC) [Ratio]Ordered By: Ramiro Cortez on 03-03-2023 Erythrocyte distribution width (RBC) [Ratio] 13.0 % 12.0-14.[address] [facility] Glucose [Mass/volume] in Ser um or PlasmaOrdered By: Ramiro Cortez on 03-03-2023 Glucose [Mass/Vol] 93 mg/dL 70-100 [facility] Comment on above: ADA recommended refe rence rangeRandom Glucose Reference Range is dependent on time and content of last meal. Glucose of more than 200 mg/dL in a nonstressed, ambulatory subject supports the diagnosis of Diabetes Mellitus. Hematocrit Auto (Bld) [Volum e fraction]Ordered By: Ramiro Cortez on 03-03-2023 Hematocrit (Bld) [Volume fraction] 38.3 % 38.8-50.[address] [facility] Hemoglobin [Mass/volume] in BloodOrdered By: Ramiro Cortez on 03-03-2023 Hemoglobin (Bld) [Mass/Vol] 12.9 g/dL 13.0-17.[address] [facility] Laboratory - CoagulationOrde red By: Ramiro Cortez on 03-03-2023 PT Coag (PPP) [Time] 12.3 s 9.0-12.9 [facility] Leukocytes [#/volume] correc ava for nucleated erythrocytes in Blood by Automated counOrdered By: Ramiro Cortez on 03-03-2023 WBC corrected for nucl RBC Auto (Bld) [#/Vol] 9.2 10*3/uL 4.1-10.[address] [facility] Lymphocytes Auto (Bld) [#/Vo l]Ordered By: Ramiro Cortez on 03-03-2023 Lymphocytes (Bld) [#/Vol] 2.6 10*3/uL 1.00-4.[address] [facility] Lymphocytes/100 WBC Auto (Bl d)Ordered By: Ramiro Cortez on 03-03-2023 Lymphocytes/100 WBC (Bld) 28.3 % . [facility] MCH Auto (RBC) [Entitic mass ]Ordered By: Ramiro Cortez on 03-03-2023 MCH (RBC) [Entitic mass] 30.8 pg 27.5-35.[address] [facility] MCHC Auto (RBC) [Mass/Vol]Or dered By: Ramiro Cortez on 03-03-2023 MCHC (RBC) [Mass/Vol] 33.6 g/dL 32.5-35.6 [facility] MCV Auto (RBC) [Entitic vol] Ordered By: Ramiro Cortez on 03-03-2023 MCV (RBC) [Entitic vol] 91.9 fL 83.5-[address] [facility] Monocyte distribution width [Entitic volume] in Blood by AutomatedOrdered By: Ramiro Cortez on 03-03-2023 Monocyte distribution width Auto (Bld) [Entitic vol] 24.67 % 0.00-20.[address] [facility] Comment on above: For adults in ED, MD W > 20.0 may be associated with a higher risk of sepsis during the first 12 hrs of hospital admission Monocytes Auto (Bld) [#/Vol] Ordered By: Ramiro Cortez on 03-03-2023 Monocytes (Bld) [#/Vol] 0.6 10*3/uL 0.0-0.[address] [facility] Monocytes/100 WBC Auto (Bld) Ordered By: Ramiro Cortez on 03-03-2023 Monocytes/100 WBC (Bld) 6.5 % . [facility] Natriuretic peptide B [Mass/ Vol]Ordered By: Ramiro Cortez on 03-03-2023 Natriuretic peptide B (Bld) [Mass/Vol] 52.0 pg/mL 5-[address] [facility] Neutrophils Auto (Bld) [#/Vo l]Ordered By: Ramiro Cortez on 03-03-2023 Neutrophils (Bld) [#/Vol] 5.7 10*3/uL 1.8-7.[address] [facility] Neutrophils/100 WBC Auto (Bl d)Ordered By: Ramiro Cortez on 03-03-2023 Neutrophils/100 WBC (Bld) 62.4 % . [facility] No Panel InformationOrdered By: Ramiro Cortez on 03-03-2023 Estimated GFR (CKD-EPI) > 60.0 mL/Min [facility] Creatinine Clearance (Chem 55.[address] [facility] Nucleated erythrocytes [Pres ence] in Blood by Automated countOrdered By: Ramiro Cortez on 03-03-2023 Nucleated RBC Auto Ql (Bld) 0.1 /100{WBC} 0-0.[address] [facility] Partial Thromboplastin Timeo n 03-03-2023 aPTT Coag (Bld) [Time] 29.7 s Normal 25.1-36.5 [facility] Comment on above: Result Comment: PERF ORMED BY: [place] [address] PATHOLOGIST WOODEN FENCE ERECTOR RADHA BARRON M.D. Performed By: #### C BC, CK, PT, PTT, BMP, HS TROP, BNP #### [facility] [address] [place] [address] Platelet mean volume Auto (B ld) [Entitic vol]Ordered By: Ramiro Cortez on 03-03-2023 Platelet mean volume (Bld) [Entitic vol] 8.2 fL 6.6-10.[address] [facility] Platelet poor plasma interna tional normalized ratio (INR) by coagulation assay (relatOrdered By: Ramiro Cortez on 03-03-2023 INR Coag (PPP) [Relative time] 1.1 {INR} [facility] Comment on above: INR Therapeutic [...] (Bld) [#/Vol] 234 10*3/uL 150-[address] [facility] Potassium [Moles/volume] in Serum or PlasmaOrdered By: Ramiro Cortez on 03-03-2023 Potassium [Moles/Vol] 4.2 mmol/L 3.5-5.1 [facility] Prothrombin Time INRon 03-03 INR Coag (PPP) [Relative time] 1.1 {INR} Normal [facility] Comment on above: [...] PTT, BMP, HS TROP, BNP #### [facility] [address] PT Coag (PPP) [Time] 12.3 s Normal 9.0-12.9 [facility] Comment on above: Performed By: #### C BC, CK, PT, PTT, BMP, HS TROP, BNP #### [facility] [address] RBC Auto (Bld) [#/Vol]Ordere d By: Ramiro Cortez on 03-03-2023 RBC (Bld) [#/Vol] 4.17 10*6/uL 3.90-5.60 [facility] Serum or plasma anion gap de terminationOrdered By: Ramiro Cortez on 03-03-2023 Anion gap [Moles/Vol] 10.6 mmol/L 6.0-15.0 [facility] Sodium [Moles/volume] in Ser um or PlasmaOrdered By: Ramiro Cortez on 03-03-2023 Sodium [Moles/Vol] 139 mmol/L 136-145 [facility] Troponin I High Sensitivityo n 03-03-2023 Troponin I High Sensitivity 7.6 pg/mL Normal 0.0-20.0 [facility] Comment on above: Result Comment: PERF ORMED BY: [place] [address] PATHOLOGIST WO[employer]EN FENCE E[employer]OR RADHA BARRON M.D. Performed By: #### C BC, CK, PT, PTT, BMP, HS TROP, BNP ####[facility] [id number] [place], [place] [address] Troponin I.cardiac [Mass/vol ume] in Serum or Plasma by Detection limit <= 0.01 ng/Ordered By: Ramiro Cortez on 03-03-2023 Troponin I.cardiac DL <= 0.01 ng/mL [Mass/Vol] 7.6 pg/mL 0.0-20.[address] [facility] Urea nitrogen [Mass/volume] in Serum or PlasmaOrdered By: Ramiro Cortez on 03-03-2023 Urea nitrogen [Mass/Vol] 17 mg/dL 7-[address] [facility] WBC Auto (Bld) [#/Vol]Ordere d By: Ramiro Cortez on 03-03-2023 WBC (Bld) [#/Vol] 9.2 10*3/uL 4.1-10.5 [facility] XR chest 2V*on 03-03-2023 XR chest 2V* [facility] [place] [address] XRay Report Signed Patient: Jeb Riddle MR#: [id number] : 1950 Acct:[id number] Age/Sex: 72 / M ADM Date: 03/03/23 Loc: ER Room: Type: [facility] ER Attending Dr: Copies to: Ramiro [...] Ivonne Zavala M.D.03/03/2023 12:46 PM Dictation Location: [place] [address] Transcribed By: KAROLINA 03/03/23 1246 Dictated By: Ivonne Zavala MD 03/03/23 1245 Signed By: 03/03/23 1246 Normal [facility] CBC AUTO DIFFon 01-11-2023 BASO # 0.0 103/ul Normal 0.0-0.1 [facility] Comment on above: Performed By: #### C BC #### [facility] [address] [place] [address] Dr. Andrea Garcia Basophils/100 WBC (Bld) 0.0 % Critically low 0.2-2.0 [facility] Comment on above: Performed By: #### C BC #### [facility] [address] [place] [address] [address] Andrea Garcia EO # 0.0 103/ul Normal 0.0-0.7 [facility] Comment on above: Performed By: #### C BC #### [facility] [address] [place] [address] [address] Andrea Garcia Eosinophils/100 WBC (Bld) 0.0 % Critically low 0.9-7.0 [facility] Comment on above: Performed By: #### C BC #### [facility] [address] [place] [address] [address] Andrea Garcia Erythrocyte distribution width (RBC) [Ratio] 12.8 % Normal 11.0-15.0 [facility] Comment on above: Performed By: #### C BC #### [facility] [address] [place] [address] [address] Andrea Garcia Hematocrit (Bld) [Volume fraction] 36.2 % Critically low 42.0-54.0 [facility] Comment on above: Performed By: #### C BC #### [facility] [address] [place] [address] Dr. Andrea Garcia Hemoglobin (Bld) [Mass/Vol] 12.8 g/dL Critically low 14.0-18.0 [facility] Comment on above: Performed By: #### C BC #### [facility] [address] [place] [address] Dr. Andrea Garcia IG # 0.03 10e3/ul Normal 0.00-0.03 [facility] Comment on above: Performed By: #### C BC #### [facility] [address] [place] [address] Dr. Andrea Garcia IG % 0.4 % Normal 0.0-0.5 [facility] Comment on above: Performed By: #### C BC #### [facility] [address] [place] [address] Dr. Andrea Garcia LYMPH # 1.1 103/ul Critically low 1.2-3.8 [facility] Comment on above: Performed By: #### C BC #### [facility] [address] [place] [address] Dr. Andrea Garcia Lymphocytes/100 WBC (Bld) 15.3 % Critically low 20.5-60.0 [facility] Comment on above: Performed By: #### C BC #### [facility] [address] [place] [address] Dr. Andrea Garcia MANUAL DIFF REQ NO Normal [facility] Comment on above: Performed By: #### C BC #### [facility] [address] [place] [address] Dr. Andrea Garcia MCH (RBC) [Entitic mass] 31.3 pg Normal 25.9-34.0 [facility] Comment on above: Performed By: #### C BC #### [facility] [address] [place] [address] Dr. Andrea Garcia MCHC (RBC) [Mass/Vol] 35.4 g/dL Critically high 29.9-35.2 [facility] Comment on above: Performed By: #### C BC #### [facility] [address] [place] [address] [address] Andrea Garcia MCV (RBC) [Entitic vol] 88.5 fL Normal 80.0-94.0 [facility] Comment on above: Performed By: #### C BC #### [facility] [address] [place] [address] [address] Andrea Garcia MONO # 0.1 103/ul Critically low 0.3-0.8 [facility] Comment on above: Performed By: #### C BC #### [facility] [address] [place] [address] [address] Andrea Garcia Monocytes/100 WBC (Bld) 0.7 % Critically low 1.7-12.0 [facility] Comment on above: Performed By: #### C BC #### [facility] [address] [place] [address] Dr. Andrea Garcia NEUT # 6.0 103/ul Normal 1.4-6.5 [facility] Comment on above: Performed By: #### C BC #### [facility] [address] [place] [address] Dr. Andrea Garcia Neutrophils/100 WBC (Bld) 83.6 % Critically high 43.0-75.0 [facility] Comment on above: Performed By: #### C BC #### [facility] [address] [place] [address] Dr. Andrea Garcia Platelet mean volume (Bld) [Entitic vol] 10.1 fL Normal 9.5-13.5 [facility] Comment on above: Performed By: #### C BC #### [facility] [address] [place] [address] Dr. Andrea Garcia PLT 216 103/ul Normal 150-450 [facility] Comment on above: Performed By: #### C BC #### [facility] [address] [place] [address] Dr. Andrea Garcia RBC 4.09 106/ul Critically low 4.70-6.10 [facility] Comment on above: Performed By: #### C BC #### [facility] [address] [place] [address] Dr. Andrea Garcia WBC 7.2 103/ul Normal 4.0-11.0 [facility] Comment on above: Performed By: #### C BC #### [facility] [address] [place] [address] Dr. Andrea Garcia PROF 14(COMP METB)on 023 Albumin [Mass/Vol] 2.8 g/dL Critically low 3.4-5.0 [facility] Comment on above: Performed By: #### C MP #### [facility] [address] [place] [address] Dr. Andrea Garcia Albumin/Globulin [Mass ratio] 0.8 {ratio} Normal [facility] Comment on above: Performed By: #### C MP #### [facility] [address] [place] [address] Dr. Andrea Garcia ALP [Catalytic activity/Vol] 64 U/L Normal 46-116 [facility] Comment on above: Performed By: #### C MP #### [facility] [address] [place] [address] Dr. Andrea Garcia ALT [Catalytic activity/Vol] 27 U/L Normal 16-63 [facility] Comment on above: Performed By: #### C MP #### [facility] [address] [place] [address] Dr. Andrea Garcia Anion gap [Moles/Vol] 12.9 mmol/L Normal [facility] Comment on above: Performed By: #### C MP #### [facility] [address] [place] [address] Dr. Andrea Garcia AST [Catalytic activity/Vol] 16 U/L Normal 15-37 [facility] Comment on above: Performed By: #### C MP #### [facility] [address] [place] [address] Dr. Andrea Garcia Bilirubin [Mass/Vol] 0.4 mg/dL Normal 0.2-1.0 [facility] Comment on above: Performed By: #### C MP #### [facility] [address] [place] [address] Dr. Andrea Garcia Calcium [Mass/Vol] 8.2 mg/dL Critically low 8.5-10.1 [facility] Comment on above: Performed By: #### C MP #### [facility] [address] [place] [address] Dr. Andrea Garcia Chloride [Moles/Vol] 107 mmol/L Normal 98-107 [facility] Comment on above: Performed By: #### C MP #### [facility] [address] [address] [address] Andrea Garcia CO2 [Moles/Vol] 24.2 mmol/L Normal 21.0-32.0 [facility] Comment on above: Performed By: #### C MP #### [facility] [address] [place] [address] Dr. Andrea Garcia Creatinine [Mass/Vol] 1.07 mg/dL Normal 0.70-1.30 [facility] Comment on above: Performed By: #### C MP #### [facility] [address] [place] [address] Dr. Andrea Garcia EGFR-AF CROATIAN >60 Normal >=60 [facility] Comment on above: Performed By: #### C MP #### [facility] [address] [place] [address] Dr. Andrea Garcia EGFR-NON AF CROATIAN >60 Normal >=60 [facility] Comment on above: Performed By: #### C MP #### [facility] [address] [place] [address] Dr. Andrea Garcia Globulin (S) [Mass/Vol] 3.5 g/dL Normal [facility] Comment on above: Performed By: #### C MP #### [facility] [address] [place] [address] Dr. Andrea Garcia Glucose [Mass/Vol] 164 mg/dL Critically high 74-106 T [facility] Comment on above: Performed By: #### C MP #### [facility] [address] [place] [address] Dr. Andrea Garcia Potassium [Moles/Vol] 4.1 mmol/L Normal 3.5-5.1 [facility] Comment on above: Performed By: #### C MP #### [facility] [address] [address] [address] Andrea Garcia Protein [Mass/Vol] 6.3 g/dL Critically low 6.4-8.2 Th e [facility] Comment on above: Performed By: #### C MP #### [facility] [address] [address] [address] Andrea Garcia Sodium [Moles/Vol] 140 mmol/L Normal 136-145 [facility] Comment on above: Performed By: #### C MP #### [facility] [address] [address] [address] Andrea Garcia Urea nitrogen [Mass/Vol] 16.0 mg/dL Normal 7.0-18.0 [facility] Comment on above: Performed By: #### C MP #### [facility] [address] [address] [address] Andrea Garcia Urea nitrogen/Creatinine [Mass ratio] 15.0 mg/mg Normal [facility] Comment on above: Performed By: #### C MP #### [facility] [address] [address] [address] Andrea Garcia XR KUB 1 VIEWon [...] DAMIEN, LIPA ####[facility] [address] [place], [place] [address]YyDr. Andrea Garcia CARDIAC JEB 3-6on 05-29-202 3 CK [Catalytic activity/Vol] 92 U/L Normal 39-308 [facility] Comment on above: Performed By: #### C MREP #### [facility] [address] [place] [address] Dr. Andrea Garcia CK.MB [Mass/Vol] 1.66 ng/mL Normal <=3.60 [facility] Comment on above: Performed By: #### C MREP #### [facility] [address] [place] [address] Dr. Andrea Garcia HSTROP 12.8 pg/mL Normal 4.0-76.1 [facility] Comment on above: Result Comment: CUT- OFF POINTS HAVE BEEN ESTABLISHED BASED ON THE FOURTH UNIVERSAL DEFINITIONS OF MYOCARDIAL INFARCTION. THE UPPER REFERENCE LIMIT (URL) OF TROPONIN, DEFINED THE 99TH PERCENTILE OF cTnI DISTRIBUTION IN A REFERENCE POPULATION, HAS BEEN CONFIRMED THE DECISION THRESHOLD FOR TX DIAGNOSIS. Performed By: #### C MREP #### [facility] [address] [place] [address] Dr. Andrea Garcia CK [Catalytic activity/Vol] 72 U/L Normal 39-308 [facility] Comment on above: Performed By: #### C MREP #### [facility] [address] [place] [address] Dr. Andrea Garcia CK.MB [Mass/Vol] 1.89 ng/mL Normal <=3.60 [facility] Comment on above: Performed By: #### C MREP #### [facility] [address] [place] [address] Dr. Andrea Garcia HSTROP 13.5 pg/mL Normal 4.0-76.1 [facility] Comment on above: Result Comment: CUT- OFF POINTS HAVE BEEN ESTABLISHED BASED ON THE FOURTH UNIVERSAL DEFINITIONS OF MYOCARDIAL INFARCTION. THE UPPER REFERENCE LIMIT (URL) OF TROPONIN, DEFINED THE 99TH PERCENTILE OF cTnI DISTRIBUTION IN A REFERENCE POPULATION, HAS BEEN CONFIRMED THE DECISION THRESHOLD FOR TX DIAGNOSIS. Performed By: #### C MREP #### [facility] [address] [place] [address] Dr. Andrea Garcia CARDIAC JEB ADMITon 023 CK [Catalytic activity/Vol] 85 U/L Normal 39-308 [facility] Comment on above: Performed By: #### C MADM, CMP, DAMIEN, LIPA ####[facility] [address] [address]Dr. Andrea Garcia CK.MB [Mass/Vol] 1.80 ng/mL Normal <=3.60 [facility] Comment on above: Performed By: #### C MADM, CMP, DAMIEN, LIPA ####[facility] [address] [address]Dr. Andrea Garcia HSTROP 15.7 pg/mL Normal 4.0-76.1 [facility] Comment on above: Result Comment: CUT- OFF POINTS HAVE BEEN ESTABLISHED BASED ON THE FOURTH UNIVERSAL DEFINITIONS OF MYOCARDIAL INFARCTION. THE UPPER REFERENCE LIMIT (URL) OF TROPONIN, DEFINED THE 99TH PERCENTILE OF cTnI DISTRIBUTION IN A REFERENCE POPULATION, HAS BEEN CONFIRMED THE DECISION THRESHOLD FOR TX DIAGNOSIS. Performed By: #### C MADM, CMP, DAMIEN, LIPA ####[facility] [address] [address]Dr. Andrea Garcia MIQUEL 61 ng/mL Normal 16-96 [facility] Comment on above: Performed By: #### C MADM, CMP, DAMIEN, LIPA ####[facility] [address] [address]Dr. Andrea Garcia CBC AUTO DIFFon 01-10-2023 BASO # 0.0 103/ul Normal 0.0-0.1 [facility] Comment on above: Performed By: #### C BC ####[facility] [address] [address]Dr. Andrea Garcia Basophils/100 WBC (Bld) 0.5 % Normal 0.2-2.0 [facility] Comment on above: Performed By: #### C BC ####[facility] [address] [address]Dr. Andrea Garcia EO # 0.4 103/ul Normal 0.0-0.7 [facility] Comment on above: Performed By: #### C BC ####[facility] [address] [place], [place] [address]Dr. Andrea Garcia Eosinophils/100 WBC (Bld) 5.9 % Normal 0.9-7.0 [facility] Comment on above: Performed By: #### C BC ####[facility] [address] [address]Dr. Andrea Garcia Erythrocyte distribution width (RBC) [Ratio] 13.0 % Normal 11.0-15.0 [facility] Comment on above: Performed By: #### C BC ####[facility] [address] [place], [place] [address]Dr. Andrea Garcia Hematocrit (Bld) [Volume fraction] 40.0 % Critically low 42.0-54.0 [facility] Comment on above: Performed By: #### C BC ####[facility] [address] [place], [place] [address]Dr. Andrea Garcia Hemoglobin (Bld) [Mass/Vol] 13.4 g/dL Critically low 14.0-18.0 [facility] Comment on above: Performed By: #### C BC ####[facility] [address] [place], [place] [address]Dr. Andrea Garcia IG # 0.01 10e3/ul Normal 0.00-0.03 [facility] Comment on above: Performed By: #### C BC ####[facility] [address] [place], [place] [address]Dr. Andrea Garcia IG % 0.2 % Normal 0.0-0.5 [facility] Comment on above: Performed By: #### C BC ####[facility] [address] [place], [place] [address]Dr. Andrea Garcia LYMPH # 2.2 103/ul Normal 1.2-3.8 [facility] Comment on above: Performed By: #### C BC ####[facility] [address] [place], [place] [address]Dr. Andrea Garcia Lymphocytes/100 WBC (Bld) 33.2 % Normal 20.5-60.0 [facility] Comment on above: Performed By: #### C BC ####[facility] [address] [address]Dr. Kaylendahlia Garcia MANUAL DIFF REQ NO Normal [facility] Comment on above: Performed By: #### C BC ####[facility] [address] [address]Dr. Andrea Jose MCH (RBC) [Entitic mass] 30.5 pg Normal 25.9-34.0 [facility] Comment on above: Performed By: #### C BC ####[facility] [address] [address]Dr. Andrea Jose MCHC (RBC) [Mass/Vol] 33.5 g/dL Normal 29.9-35.2 [facility] Comment on above: Performed By: #### C BC ####[facility] [address] [place], [place] [address]Dr. Kaylendahila Garcia MCV (RBC) [Entitic vol] 90.9 fL Normal 80.0-94.0 [facility] Comment on above: Performed By: #### C BC ####[facility] [address] [place], [place] [address]Dr. Andrea Jose MONO # 0.4 103/ul Normal 0.3-0.8 [facility] Comment on above: Performed By: #### C BC ####[facility] [address] [place], [place] [address]Dr. Andrea Garcia Monocytes/100 WBC (Bld) 6.0 % Normal 1.7-12.0 [facility] Comment on above: Performed By: #### C BC ####[facility] [address] [place], [place] [address]Dr. Andrea Garcia NEUT # 3.5 103/ul Normal 1.4-6.5 [facility] Comment on above: Performed By: #### C BC ####[facility] [address] [place], [place] [address]Dr. Andrea Garcia Neutrophils/100 WBC (Bld) 54.2 % Normal 43.0-75.0 [facility] Comment on above: Performed By: #### C BC ####[facility] [address] [place] [id number] Andrea Garcia Platelet mean volume (Bld) [Entitic vol] 9.7 fL Normal 9.5-13.5 [facility] Comment on above: Performed By: #### C BC ####[facility] [address] [place], [place] [address]Az. Andrea Garcia PLT 225 103/ul Normal 150-450 [facility] Comment on above: Performed By: #### C BC ####[facility] [address] [place], [place] [address]Hu. Andrea Garcia RBC 4.40 106/ul Critically low 4.70-6.10 [facility] Comment on above: Performed By: #### C BC ####[facility] [address] [id number]. Andrea Garcia WBC 6.5 103/ul Normal 4.0-11.0 [facility] Comment on above: Performed By: #### C BC ####[facility] [address] [id number] Andrea Garcia CT ABD/PELV W CONon 01-11-20 [...] by: ADITYA OATES Date: 2023-01-10 07:41 Normal [facility] CULTURE BLOODon 01-10-2023 Microscopic examination of blood, culture Culture Observations: NO GROWTH AT 36-48 HOURS. FINAL TO FOLLOW. Normal [facility] Comment on above: Performed By: #### B LDCX2 ####[facility] [address] [address]DrWilder Garcia Microscopic examination of blood, culture Culture Observations: NO GROWTH AT 36-48 HOURS. FINAL TO FOLLOW. [facility] Comment on above: Performed By: #### B LDCX1 ####[facility] [address] [address]Dr. Andrea Garcia ER URINE PROFILEon 3 Bilirubin Ql (U) Negative Normal NEGATIVE [facility] Comment on above: Performed By: #### U MICRO, ERUR #### [facility] [address] [place] [address] Dr. Andrea Garcia Clarity (U) CLEAR Normal CLEAR [facility] Comment on above: Performed By: #### U MICRO, ERUR #### [facility] [address] [place] [address] Dr. Andrea Garcia Color (U) LT. YELLOW Normal YELLOW [facility] Comment on above: Performed By: #### U MICRO, ERUR #### [facility] [address] [place] [address] Dr. Andrea Garcia ERUAHD A micrscopic examina tion will be performed if indicated. Normal [facility] Comment on above: Performed By: #### U MICRO, ERUR #### [facility] [address] [place] [address] Dr. Andrea Garcia Glucose Ql (U) Negative Normal NEGATIVE [facility] Comment on above: Performed By: #### U MICRO, ERUR #### [facility] [address] [place] [address] Dr. Andrea Garcia Hemoglobin Ql (U) TRACE-INTACT Abnormal NEGATIVE [facility] Comment on above: Performed By: #### U MICRO, ERUR #### [facility] [address] [address] [address] Andrea Garcia Ketones Ql (U) Negative Normal NEGATIVE [facility] Comment on above: Performed By: #### U MICRO, ERUR #### [facility] [address] [address] [address] Andrea Garcia LEUKOCYTES Negative Normal NEGATIVE [facility] Comment on above: Performed By: #### U MICRO, ERUR #### [facility] [address] [address] [address] Andrea Garcia Nitrite Ql (U) Negative Normal NEGATIVE [facility] Comment on above: Performed By: #### U MICRO, ERUR #### [facility] [address] [place] [address] Dr. Andrea Garcia pH (U) 5.5 [pH] Normal 5-9 [facility] Comment on above: Performed By: #### U MICRO, ERUR #### [facility] [address] [address] [address] Andrea Garcia SPEC GRAVITY 1.015 Normal 1.005-<=1. 025 [facility] Comment on above: Performed By: #### U MICRO, ERUR #### [facility] [address] [place] [address] Dr. Andrea Garcia UA PROTEIN Negative Normal NEGATIVE/ TRACE [facility] Comment on above: Performed By: #### U MICRO, ERUR #### [facility] [address] [address] [address] Andrea Garcia UR MICRO IND INDICATED Normal [facility] Comment on above: Performed By: #### U MICRO, ERUR #### [facility] [address] [address] [address] Andrea Garcia Urobilinogen Qn (U) 0.2 {Temo'U}/dL Normal 0.2 - 1. 0 [facility] Comment on above: Performed By: #### U MICRO, ERUR #### [facility] [address] [address] [address] Andrea Garcia LACTATE/LACTIC ACIDon 2022 Lactate [Moles/Vol] 0.8 mmol/L Normal 0.4-2.0 [facility] Comment on above: Performed By: #### L ACT #### [facility] [address] [address] [address] Andrea Garcia Lactate [Moles/Vol] 0.9 mmol/L Normal 0.4-2.0 [facility] Comment on above: Performed By: #### L ACT #### [facility] [address] [address] [address] Andrea Garcia LIPASEon 01-10-2023 Lipase [Catalytic activity/Vol] 71.0 U/L Critically low 73.0-393.0 [facility] Comment on above: Performed By: #### C MADM, CMP, DAMIEN, LIPA ####[facility] [address] [address]DrWilder Garcia PROF 14(COMP METB)on 023 Albumin [Mass/Vol] 3.2 g/dL Critically low 3.4-5.0 [facility] Comment on above: Performed By: #### C MADM, CMP, DAMIEN, LIPA ####[facility] [address] [address]DrWilder Garcia Albumin/Globulin [Mass ratio] 0.9 {ratio} Normal [facility] Comment on above: Performed By: #### C MADM, CMP, DAMIEN, LIPA ####[facility] [address] [address]DrWilder Garcia ALP [Catalytic activity/Vol] 68 U/L Normal 46-116 [facility] Comment on above: Performed By: #### C MADM, CMP, DAMIEN, LIPA ####[facility] [address] [address]DrWilder Garcia ALT [Catalytic activity/Vol] 30 U/L Normal 16-63 [facility] Comment on above: Performed By: #### C MADM, CMP, DAMIEN, LIPA ####[facility] [address] [address]Dr. Andrea Garcia Anion gap [Moles/Vol] 14.2 mmol/L Normal Th e [facility] Comment on above: Performed By: #### C MADM, CMP, DAMIEN, LIPA ####[facility] [address] [address]Dr. Andrea Garcia AST [Catalytic activity/Vol] 18 U/L Normal 15-37 [facility] Comment on above: Performed By: #### C MADM, CMP, DAMIEN, LIPA ####[facility] [address] [address]Dr. Andrea Garcia Bilirubin [Mass/Vol] 0.5 mg/dL Normal 0.2-1.0 [facility] Comment on above: Performed By: #### C MADM, CMP, DAMIEN, LIPA ####[facility] [address] [address]Dr. Andrea Garcia Calcium [Mass/Vol] 8.5 mg/dL Normal 8.5-10.1 [facility] Comment on above: Performed By: #### C MADM, CMP, DAMIEN, LIPA ####[facility] [address] [address]Dr. Andrea Garcia Chloride [Moles/Vol] 108 mmol/L Critically high 98-107 [facility] Comment on above: Performed By: #### C MADM, CMP, DAMIEN, LIPA ####[facility] [address] [address]Dr. Andrea Garcia CO2 [Moles/Vol] 22.1 mmol/L Normal 21.0-32.0 [facility] Comment on above: Performed By: #### C MADM, CMP, DAMIEN, LIPA ####[facility] [address] [address]Dr. Andrea Garcia Creatinine [Mass/Vol] 1.06 mg/dL Normal 0.70-1.30 [facility] Comment on above: Performed By: #### C MADM, CMP, DAMIEN, LIPA ####[facility] [address] [address]Dr. Andrea Garcia EGFR-AF CROATIAN >60 Normal >=60 [facility] Comment on above: Performed By: #### C MADM, CMP, DAMIEN, LIPA ####[facility] [address] [address]Dr. Andrea Garcia EGFR-NON AF CROATIAN >60 Normal >=60 [facility] Comment on above: Performed By: #### C MADM, CMP, DAMIEN, LIPA ####[facility] [address] [address]Dr. Andrea Garcia Globulin (S) [Mass/Vol] 3.5 g/dL Normal [facility] Comment on above: Performed By: #### C MADM, CMP, DAMIEN, LIPA ####[facility] [address] [address]Dr. Andrea Garcia Glucose [Mass/Vol] 110 mg/dL Critically high 74-106 T [facility] Comment on above: Performed By: #### C MADM, CMP, DAMIEN, LIPA ####[facility] [address] [address]Dr. Andrea Garcia Potassium [Moles/Vol] 4.3 mmol/L Normal 3.5-5.1 [facility] Comment on above: Performed By: #### C MADM, CMP, DAMIEN, LIPA ####[facility] [address] [address]Dr. Andrea Garcia Protein [Mass/Vol] 6.7 g/dL Normal 6.4-8.2 [facility] Comment on above: Performed By: #### C MADM, CMP, DAMIEN, LIPA ####[facility] [address] [address]Dr. Andrea Garcia Sodium [Moles/Vol] 140 mmol/L Normal 136-145 [facility] Comment on above: Performed By: #### C MADM, CMP, DAMIEN, LIPA ####[facility] [address] [address]Dr. Andrea Garcia Urea nitrogen [Mass/Vol] 20.0 mg/dL Critically high 7.0-18.0 [facility] Comment on above: Performed By: #### C YASMINE, ABHINAV, DAMIEN, LIPA ####[facility] [address] [address]DrWilder Garcia Urea nitrogen/Creatinine [Mass ratio] 18.9 mg/mg Normal [facility] Comment on above: Performed By: #### C YASMINE, CMP, DAMIEN, LIPA ####[facility] [address] [place] [id number] Garcia URINE MICROSCOPIC ONLYon BACTERIA NONE SEEN Normal NONE SEEN [facility] Comment on above: Performed By: #### U MICRO, ERUR #### [facility] [address] [place] [address] Dr. Andrea Garcia Bacteria identified Cx Nom (U) NOT INDICATED Normal [facility] Comment on above: Performed By: #### U MICRO, ERUR #### [facility] [address] [place] [address] Dr. Andrea Garcia CAST NONE SEEN Normal NONE SEEN [facility] Comment on above: Performed By: #### U MICRO, ERUR #### [facility] [address] [address] [address] Andrea Garcia Crystals LM Nom (Urine sed) NONE SEEN Normal NONE SEEN [facility] Comment on above: Performed By: #### U MICRO, ERUR #### [facility] [address] [place] [address] Dr. Andrea Garcia Epithelial cells LM Ql (Urine sed) NONE SEEN Normal NONE SEEN /RARE [facility] Comment on above: Performed By: #### U MICRO, ERUR #### [facility] [address] [address] [address] Andrea Garcia MUCOUS NONE SEEN Normal NONE SEEN [facility] Comment on above: Performed By: #### U MICRO, ERUR #### [facility] [address] [place] [address] Dr. Andrea Garcia RBC 0-2 Normal 0-2 [facility] Comment on above: Performed By: #### U MICRO, ERUR #### [facility] [address] [place], [place] [address] Dr. Andrea Garcia WBC 0-2 Abnormal NONE SEEN [facility] Comment on above: Performed By: #### U MICRO, ERUR #### [facility] [address] [place], [place] [address] Dr. Andrea Garcia XR CHEST 1 Von [...] by KENN RAPHAEL on 10/06/2021 1605 Normal [facility] Lye Boiler CT Soft Tissue Neck w/ Contr ast*on [...] by Que Greene on 09/29/2021 1013 Normal [facility] Lye Boiler Vital Signs Date Time Vital Sign Value Performing Clinician Faci lity 09-19-2024 08:42-0500 Body mass index (BMI) [Ratio] 24.11 kg/m2 [place] Work Phone: [facility] 09-19-2024 08:42-0500 Body weight 85.19 kg [facility] Work [facility]: [facility] 09-19-2024 08:42-0500 Diastolic blood pressure 76 mm[Hg] [facility] Work [facility]: [facility] 09-19-2024 08:42-0500 Heart rate 78 /min [facility] Work [facility]: [facility] 09-19-2024 08:42-0500 SaO2% (BldA) [Mass fraction] 96 % [facility] Work Phone: [facility] 09-19-2024 08:42-0500 Systolic blood pressure 142 mm[Hg] Maribel Bojorquez Work Phone: [facility] 01-09-2024 19:01-0400 Diastolic blood pressure 99 mm[Hg] MD Lauren Godwin Work Phone: [facility] 01-09-2024 19:01-0400 Heart rate 84 /min MD Lauren Godwin Work Phone: [facility] 01-09-2024 19:01-0400 Respiratory rate 18 /min MD Lauren Godwin Work Phone: [facility] 01-09-2024 19:01-0400 SaO2% (BldA) [Mass fraction] 97 % MD Lauren Godwin Work Phone: [facility] 01-09-2024 19:01-0400 Systolic blood pressure 190 mm[Hg] MD Lauren Godwin Work Phone: [facility] 01-09-2024 14:29-0400 Body height 187.96 cm MD Lauren Godwin Work Phone: [facility] 01-09-2024 14:29-0400 Body temperature 98.3 [degF] MD Lauren Godwin Work Phone: [facility] 01-09-2024 14:29-0400 Body weight 83 kg MD Lauren Godwin Work Phone: [facility] 12-18-2023 13:10-0400 Heart rate 85 /min MD Lauren Godwin Work Phone: [facility] 12-18-2023 13:09-0400 Body temperature 97.9 [degF] MD Lauren Godwin Work Phone: [facility] 12-18-2023 13:09-0400 Diastolic blood pressure 77 mm[Hg] MD Lauren Godwin Work Phone: [facility] 12-18-2023 13:09-0400 Respiratory rate 18 /min MD Lauren Godwin Work Phone: [facility] 12-18-2023 13:09-0400 SaO2% (BldA) [Mass fraction] 97 % MD Lauren Godwin Work Phone: [facility] 12-18-2023 13:09-0400 Systolic blood pressure 161 mm[Hg] MD Lauren Godwin Work Phone: [facility] 12-18-2023 13:06-0400 Body height 186.69 cm MD Lauren Godwin Work Phone: [facility] 12-18-2023 13:06-0400 Body weight 81 kg MD Lauren Godwin Work Phone: [facility] 03-03-2023 13:30-0400 Diastolic blood pressure 100 mm[Hg] MD Lauren Godwin Work Phone: [facility] 03-03-2023 13:30-0400 Heart rate 59 /min MD Lauren Godwin Work Phone: [facility] 03-03-2023 13:30-0400 Respiratory rate 18 /min MD Lauren Godwin Work Phone: [facility] 03-03-2023 13:30-0400 SaO2% (BldA) [Mass fraction] 99 % MD Lauren Godwin Work Phone: [facility] 03-03-2023 13:30-0400 Systolic blood pressure 160 mm[Hg] MD Lauren Godwin Work Phone: [facility] 03-03-2023 11:36-0400 Body height 175.26 cm MD Lauren Godwin Work Phone: [facility] 03-03-2023 11:36-0400 Body temperature 98 [degF] MD Lauren Godwin Work Phone: [facility] 03-03-2023 11:36-0400 Body weight 84.3 kg MD Lauren Godwin Work Phone: [facility] Encounters Encounter Date Encounter Type Care Provider Facility Start: 10-02-2024 End: 10-02-2024 ambulatory MARIBEL BOJORQUEZ Not Available Start: 09-24-2024 End: 09-24-2024 ambulatory [facility] Start: 09-19-2024 End: 09-19-2024 Bamboo flowsheet Maribel Kumarett DO Work Phone: [facility] Start: 09-19-2024 End: 09-19-2024 Bamboo flowsheet Maribel Kumarett DO Work Phone: [facility] Start: 09-19-2024 End: 09-19-2024 Office outpatient new 45 minutes Maribel Reno DO Work Phone: [facility] Comment on above: Loss of consciousnes s (CMS/HCC) (Primary Dx) Start: 09-19-2024 End: 09-19-2024 ambulatory MARIBEL KUMARETT Not Available Start: 08-09-2024 End: 08-09-2024 Emergency department patient visit SHIV Bueno [facility] Start: 04-06-2024 End: 04-06-2024 ambulatory [facility] Start: 01-09-2024 End: 01-09-2024 Emergency department patient visit Lauren Godwin Facility:[facility] Start: 01-09-2024 End: 01-09-2024 Emergency department patient visit MD Lauren Godwin Work Phone: [facility] Work Phone: Start: 12-18-2023 End: 12-18-2023 Emergency department patient visit Marie Garrison Facility:[facility] Start: 12-18-2023 End: 12-18-2023 Emergency department patient visit MD Lauren Godwin Work Phone: [facility] Work Phone: Start: 12-09-2023 End: 12-09-2023 ambulatory [facility] Start: 03-03-2023 End: 03-03-2023 Emergency department patient visit Ramiro Crotez Facility:[facility] Start: 03-03-2023 End: 03-03-2023 Emergency department patient visit MD Lauren Godwin Work Phone: [facility] Work Phone: Start: 01-10-2023 [...] 11/05/2024 9:00 AM EDT Office Visit [facility] [address] [place] [address] Maribel Bojorquez DO [address] [place] [address] [facility] Start: 09-20-2024 End: 09-20-2024 Clinical Support 09/20/2024 8:45 AM EST Clinical Support MONA ENRIQUEZ [address] [facility] [place] [address] [facility] EN[facility] Start: 09-19-2024 End: 09-19-2025 EEG, Including Recording Awake or Asleep EEG, Including Recording Awake or Asleep Neurology Routine Loss of consciousness ([facility]) Expected: 09/19/2024 (Approximate), Expires: 09/19/2025 [facility] Work Phone: Comment on above: Expected: 09/19/2024 (Approximate), Expires: 09/19/2025 Start: 09-19-2024 End: 09-19-2024 Patient encounter procedure 09/19/2024 9:00 AM EST Office Visit [facility] ENRIQUEZ [address] [facility] [place] [address] Maribel Bojorquez DO [address] [place] [address] Arrived [facility] ENRIQUEZ Comment on above: Arrived Start: 04-15-2024 Influenza vaccination Influenza Vacc ine (#1) [facility] Start: 12-18-[address] [facility] Start: 2014 Pneumococcal Vaccine : 65+ Years (1 of 1 - PCV) Pneumococcal Vaccine: 65+ Years (1 of 1 - PCV) [facility] Start: 1950 Screening for malign ant neoplasm of colon [facility] Patient Education [facility] Work Phone: Patient referral [facility] Work Phone: Immunizations Immunization Date Immunization Notes Care Provider Fa cility 09-21-2023 influenza virus vaccine, unspecified formulation Maribel Bojorquez DO Work Phone: [facility] Payers Date Payer Category Payer Medicare (Managed Care) [employer] M EDIC[employer] ADVANTAGE Member Subscriber Plan / Payer (Effective 2023-Present) Name: Jeb Riddle Relation to Subscriber: Self Name: Jeb Riddle Payer ID: [id number] (NAIC) Type: Not on file Address: [place] [id number] 2023 Self-pay [id number] 2022 Unknown [id number] 1960 Medicare [id number] 1950 Unknown [id number] 1950 Unknown [id number] 1950 Unknown [id number] [id number] 1950 Unknown [id number] [id number] Unknown [id number] [id number] Unknown [id number] [id number] Unknown [id number] [id number] Social History Date Type Detail Facility Start: 03-03-2023 End: 01-09-2024 Tobacco smoking status PRIS Ex-smoker (finding) [facility] Start: 1950 Sex Assigned At Male F [facility] Tobacco smoking status [facility] Tobacco smoking consumption unknown [facility] Start: 1950 Sex assigned at Not on file N [facility] Gender identity Not on file [facility] are Progress note 09-24-2024 Note Date & Type Note Facility 09-24-2024 Note [facility] Subjective Jeb Riddle is [...] Campus and was started on anticoagulation therapy. I [...] On 08/31/2024 he was admitted to the [facility] with small bowel obstruction secondary to his [...] mononitrate ER (Imdu (more content not included)... 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 He had taken a Seroquel the night [...] 2 years. He lost his job in [employer] and his house and has had issues [...] , wrist extensors , wrist flexor , [employer] or [employer] strength 5/5. LUE Strength deltoid , biceps , triceps , wrist extensors , wrist flexor , [employer] or [employer] strength 5/5. RLE Strength illopsoas, quadriceps, tibialis [...] reflex 2+ . Reese's sign negative. Coordination: [id number]-[id number] testing and rapid alternating movements are normal Gait: Normal Review and summary of old records: CT of the brain without contrast on 08/09/2024 with comparison to 07/14/2022: No acute intracranial pathology I have reviewed notations from [place] emergency department where this 73-year-old patient presented [...] orders for this visit: Loss of consciousness (CMS/[facility]) It is my impression that the patient [...] states he had a recent MRI at [facility] that was also unremarkable. He has no [...] and return instructions documented in this encounter [facility] Progress note 04-06-2024 Note Date & Type Note Facility 04-06-2024 Note [place] [facility] Subjective Jeb Riddle is a 73 y.o. year old male patient here for a follow up echo from January, he was amitted to [facility], for chest pain a couple weeks ago and had another echo. He had a lipid panel yesterday. At last appointment his statin was changed. 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 He still rides his bike to [employer] everyday, still active. Patient Active Problem List [...] metoprolol succinate XL (more content not included)... [facility] Progress note 12-09-2023 Note Date & Type Note Facility 12-09-2023 Note 8K can you read, out of the so I can make changes in [place] [facility] Subjective Jeb Riddle is a 73 [...] Rfl: 3 prav (more content not included)... [facility] Evaluation note Note Date & Type Note Facility Evaluation note No assessment information availa ble [facility] Work Phone: Evaluation note Note Date & Type Note Facility Evaluation note Diagnosis Loss of consciousness (CMS/HCC)- Primary Other alteration of consciousness documented in this encounter [facility] Discharge instructions Note Date & Type Note Facility Hospital Discharge instructions Additional Instructions Continue Pepcid once or twice a day as needed [place] diet Follow-up with your family doctor for recheck Return to the ER for worsening pain shortness of breath fever or any other concerns [facility] Work Phone: Reason for visit Narrative Consultation (Routine) - Closed Note Date & Type Note Facility Reason for visit Narrative Specialty Diagnoses / Procedures Referred By Contac t Referred To Contact Neurology Diagnoses Unspecified convulsions (CMS/HCC) Syncope and collapse Procedures [place] OFFICE/OUTPATIENT [facility] MDM 30 MINUTES Lauren Godwin MD [address] [place] [address] Phone: tel:[phone] fax: Maribel Bojorquez DO [address] [place] [address] Phone: tel: fax: Referral ID Status Reason Start Date Expiration Date V isits Requested Visits Authorized [id number] Closed Consult and Treat 08/17/2024 02/13/2025 1 [...] AUTHOR 10/07/2021 [facility] dical Specialist DATE CREATED AUTHOR AUTHOR'S ORGANIZ ATION 01/21/2023 [facility] DATE CREATED AUTHOR AUTHOR'S ORGANIZ ATION 01/09/2024 [facility] DATE CREATED AUTHOR AUTHOR'S ORGANIZ ATION 08/10/2024 [facility] DATE CREATED AUTHOR AUTHOR'S ORGANIZ ATION 09/25/2024 [facility] DATE CREATED AUTHOR AUTHOR'S ORGANIZ ATION 10/03/2024 [facility] dical Specialists EPIC Care Teams (unrecognized sec tion and content) [...] 2024 End: January 09, 2024 Naima Boyd [facility] Emergency Provider Active Start: January 09, [...] BE BASED ON THE PRIMARY CLINICAL RECORDS. [employer] provides no warranty or guarantee of the accuracy or completeness of information in this document.
[2024-10-23 09:32] LABS: Basophils Percent Auto 0.5 % (0.2-2.0); Eosinophils Absolute Auto 0.3 10^3/uL (0.0-0.7); Hematocrit 39.4 % (42.0-54.0); Hemoglobin 13.2 g/dL (14.0-18.0); Immature Granulocytes Abs Auto 0.02 10^3/uL (0.00-0.03); Immature Granulocytes Pct Auto 0.3 % (0.0-0.5); Lymphocytes Absolute Auto 1.8 10^3/uL (1.2-3.8); Lymphocytes Percent Auto 28.9 % (20.5-60.0); Mean Corpuscular HGB Conc 33.5 g/dL (29.9-35.2); Mean Corpuscular Hemoglobin 32.1 pg (25.9-34.0); Mean Corpuscular Volume 95.9 fL (80.0-94.0); Mean Platelet Volume 9.9 fL (9.5-13.5); Monocytes Absolute Auto 0.3 10^3/uL (0.3-0.8); Monocytes Percent Auto 4.5 % (1.7-12.0); Neutrophils Absolute Auto 3.7 10^3/uL (1.4-6.5); Neutrophils Percent Auto 60.8 % (43.0-75.0); Platelet Count 201 10^3/uL (150-450); Red Blood Count 4.11 10^6/uL (4.70-6.10); Red Cell Distribution Width 13.3 % (11.0-15.0); White Blood Count 6.1 10^3/uL (4.0-11.0)
[2024-10-23 10:07] LABS: Alanine Aminotransferase 35 U/L (16-63); Albumin Globulin Ratio 1.1; Albumin Level 3.5 g/dL (3.4-5.0); Alkaline Phosphatase 75 U/L (46-116); Anion Gap 11.4; Aspartate Amino Transferase 17 U/L (15-37); BUN Creatinine Ratio 21.6; Bilirubin Total 0.5 mg/dL (0.2-1.0); Calcium 8.7 mg/dL (8.5-10.1); Carbon Dioxide 24.5 mmol/L (21.0-32.0); Chloride 108 mmol/L (98-107); Estimated GFR (African America >60 (>=60 mL/min/1.73m^2); Estimated GFR (Non-African Ame 52 (>=60 mL/min/1.73m^2); Free T3 2.65 pg/mL (2.18-3.98); Globulin 3.3 g/dL; Glucose 93 mg/dL (74-106); Potassium 4.9 mmol/L (3.5-5.1); Sodium 139 mmol/L (136-145); Thyroid Stimulating Hormone 3.214 uIU/mL (0.358-3.740); Total Protein 6.8 g/dL (6.4-8.2)
== END 2024-10-23 09:08 | disposition home or self-care (01) ==
LOC: LAB 09:11
PROVIDERS: Family Provider Family Medicine; PCP Family Medicine; Visit Provider Family Medicine
DX: R35.0 Frequency of micturition (principal); D64.9 Anemia, unspecified; I47.9 Paroxysmal tachycardia, unspecified; I10 Essential (primary) hypertension; N39.0 Urinary tract infection, site not specified; R30.0 Dysuria; L72.3 Sebaceous cyst
CPT/HCPCS: 36415; 80053; 83540; 84436; 84443; 84481; 85025; 87070; 87186

== ENCOUNTER 2024-11-02 10:04 | Emergency (ER) | payer MEDICARE, SELFPAY ==
[2024-11-02 10:08] VITALS: BP 142/82; PULSE 72; TEMP 36.4; O2SAT 98; BMI 23.2
--- NOTE | 2024-11-02 10:13 | ECG_ITS ---
[facility] Test Date: 2024-11-02 Pat Name: JEB TOBIAS Department: Room: - Gender: Male Prisoner Classification Interviewer: : 1950 Requested By: LAUREN VALLEJO Order Number: [id number] Reading MD: JESSICA FORRESTER M.D. Measurements Intervals [place] Rate: 66 P: 44 MI: 162 QRS: 64 QRSD: 92 T: 34 QT: 394 QTc: 408 Interpretive Statements 1100 Sinus rhythm 1102 Sinus arrhythmia 9110 normal ECG Compared to ECG 09/03/2024 04:35:52 No significant changes Electronically Signed On 11-02-2024 17:39:15 EDT by JESSICA FORRESTER M.D.
[2024-11-02] MEDS: 0.9 % SODIUM CHLORIDE 1,000 ML 1000 ML IV (10:30)
[2024-11-02 10:31] LABS: Basophils Percent Auto 0.5 % (0.2-2.0); Eosinophils Absolute Auto 0.2 10^3/uL (0.0-0.7); Eosinophils Percent Auto 3.1 % (0.9-7.0); Hemoglobin 12.3 g/dL (14.0-18.0); Immature Granulocytes Abs Auto 0.01 10^3/uL (0.00-0.03); Immature Granulocytes Pct Auto 0.2 % (0.0-0.5); Lymphocytes Absolute Auto 2.1 10^3/uL (1.2-3.8); Lymphocytes Percent Auto 37.2 % (20.5-60.0); Mean Corpuscular HGB Conc 34.2 g/dL (29.9-35.2); Mean Corpuscular Hemoglobin 32.1 pg (25.9-34.0); Mean Platelet Volume 10.9 fL (9.5-13.5); Monocytes Absolute Auto 0.4 10^3/uL (0.3-0.8); Monocytes Percent Auto 6.5 % (1.7-12.0); Neutrophils Absolute Auto 2.9 10^3/uL (1.4-6.5); Neutrophils Percent Auto 52.5 % (43.0-75.0); Platelet Count 181 10^3/uL (150-450); Red Blood Count 3.83 10^6/uL (4.70-6.10); Red Cell Distribution Width 14.4 % (11.0-15.0); White Blood Count 5.6 10^3/uL (4.0-11.0)
[2024-11-02] MEDS: ONDANSETRON PF 4 MG/2 ML VIAL IV (10:43)
[2024-11-02 11:01] LABS: INR 1.08; Prothrombin Time 11.4 sec (9.0-11.6)
[2024-11-02 11:20] LABS: Bilirubin Urine NEGATIVE (NEGATIVE); Blood Urine TRACE-I (NEGATIVE); Clarity Urine CLEAR (CLEAR); Color Urine LT. YELLOW (YELLOW); Glucose Urine UA NEGATIVE (NEGATIVE); Ketones Urine NEGATIVE (NEGATIVE); Leukocyte Esterase Urine TRACE (NEGATIVE); Nitrite Urine NEGATIVE (NEGATIVE); Protein Urine NEGATIVE (NEG/TRACE); Specific Gravity Urine 1.025 (1.005-1.025); Urine Microscopic Indicated YES; Urobilinogen Urine 0.2 EU/dL (0.2-1.0); pH Urine 5.5 (5.0-9.0)
[2024-11-02 11:28] LABS: Bacteria Urine TRACE #/HPF (NONE SEEN); Cast Seen? SEEN #/LPF (NONE SEEN); Crystals Seen? None Seen #/HPF (None Seen); Hyaline Casts Urine RARE; Mucus Urine NONE SEEN (NONE SEEN); Squamous Epithelial Cell Urine FEW #/LPF (NONE/RARE); WBC Urine 0-2 #/HPF (NONE SEEN)
[2024-11-02 11:29] LABS: Urine Culture Indicated NO
[2024-11-02 11:32] LABS: Alanine Aminotransferase 26 U/L (16-63); Albumin Globulin Ratio 1.1; Albumin Level 3.1 g/dL (3.4-5.0); Alkaline Phosphatase 71 U/L (46-116); Anion Gap 11.1; Aspartate Amino Transferase 17 U/L (15-37); BUN Creatinine Ratio 26.5; Bilirubin Total 0.5 mg/dL (0.2-1.0); Calcium 8.4 mg/dL (8.5-10.1); Chloride 109 mmol/L (98-107); Estimated GFR (African America 53 (>=60 mL/min/1.73m^2); Estimated GFR (Non-African Ame 44 (>=60 mL/min/1.73m^2); Globulin 2.8 g/dL; Glucose 109 mg/dL (74-106); Magnesium 1.3 mg/dL (1.8-2.4); Potassium 5.1 mmol/L (3.5-5.1); Sodium 139 mmol/L (136-145); Total Protein 5.9 g/dL (6.4-8.2); Troponin I High Sensitivity 11.4 pg/mL (4.0-76.1)
--- NOTE | 2024-11-02 11:36 | ED.DIZZY1 ---
HPI - Dizziness General Chief Complaint: Dizziness Stated Complaint: DIZZINESS Time Seen by Provider: 11/02/24 10:06 Source: patient Mode of arrival: ambulance History of Present Illness HPI Narrative: The patient is coming to the ER with an episode of feeling that he is going to pass out, he mentioned that he was having a bowel movement when he had some abdominal cramping after having a bowel movement he felt dizzy and he went and laid in the bed, and he called the ambulance The patient did not pass out at any time and is feeling better now although he does have some nausea right now, he mentioned that he had no chest pain at any time and he does not have any abdominal pain at all right now 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 have a history of small bowel obstruction before, but he denies having any pain at the moment The patient mentioned that he usually walks 3 miles every day carrying 10 pounds in each hand but he does not drink enough water usually Related Data Home Medications ?Medication ?Instructions ?Recorded ?Confirmed mesalamine 400 mg capsule (with 800 mg PO BID 02/25/23 11/02/24 delayed release tablets inside) ondansetron 8 mg disintegrating 8 mg PO Q8H PRN nausea and vomiting 09/02/23 11/02/24 tablet clonidine HCl 0.1 mg tablet 0.1 mg PO BID 03/19/24 11/02/24 apixaban 5 mg tablet (Eliquis) 5 mg PO BID 08/31/24 11/02/24 lorazepam 1 mg tablet (Ativan) 1 mg PO BID PRN anxiety 08/31/24 11/02/24 Previous Rx's ?Medication ?Instructions ?Recorded isosorbide mononitrate 30 mg 30 mg PO QAM #30 tabs 03/14/23 tablet,extended release 24 hr lisinopril 20 mg tablet 40 mg (2 x 20 mg) PO DAILY #60 tabs 09/03/24 Allergies Allergy/AdvReac Type Severity Reaction Status Date / Time Fish Containing Products AdvReac Severe Abdominal Verified 08/31/24 02:45 Pain Review of Systems ROS Status of ROS 10 or more systems reviewed and unremarkable except as noted in history and below [facility] Medical History (Updated 11/02/24 @ 12:37 by Shelby Du MD) Small bowel obstruction ?K56.609 - Unspecified intestinal obstruction, unspecified as to partial versus complete obstruction (ICD-10) Abdominal pain ?R10.9 - Unspecified abdominal pain (ICD-10) Pulmonary embolism ?I26.99 - Other pulmonary embolism without acute cor pulmonale (ICD-10) Chest pain ?R07.9 - Chest pain, unspecified (ICD-10) Elevated blood pressure reading ?R03.0 - Elevated blood-pressure reading, without diagnosis of hypertension (ICD-10) Uncontrolled hypertension ?I10 - Essential (primary) hypertension (ICD-10) UTI (urinary tract infection) ?N39.0 - Urinary tract infection, site not specified (ICD-10) DVT (deep venous thrombosis) ?I82.409 - Acute embolism and thrombosis of unspecified deep veins of unspecified lower extremity (ICD-10) Dehydration ?E86.0 - Dehydration (ICD-10) DAVID (acute kidney injury) ?N17.9 - Acute kidney failure, unspecified (ICD-10) Abdominal pain ?R10.9 - Unspecified abdominal pain (ICD-10) Nausea & vomiting ?R11.2 - Nausea with vomiting, unspecified (ICD-10) Hypertension ?I10 - Essential (primary) hypertension (ICD-10) Crohn disease ?K50.90 - Crohn's disease, unspecified, without complications (ICD-10) Surgical History H/O hernia repair ?Z98.890 - Other specified postprocedural states (ICD-10) ?Z87.19 - Personal history of other diseases of the digestive system (ICD-10) History of bowel resection ?Z90.49 - Acquired absence of other specified parts of digestive tract (ICD-10) Family History (Updated 03/13/23 @ 20:02 by Bita Cyr RN) Father Family history of COPD (chronic obstructive pulmonary disease) Family history of diabetes mellitus Family history of myocardial infarction Brother Family history of cancer Mother Family history of diabetes mellitus Other Family history of hypertension Social History Within the past year, how often did you have a drink containing alcohol: 2-3 times a week Within the past year, how many standard drinks containing alcohol did you have on a typical day: 1 or 2 Within the past year, how often did you have six or more drinks on one occasion: never Total score: 0 Score interpretation: A score less than 4 is consistent with normal alcohol consumption. 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 Little interest or pleasure in doing things: not at all Feeling down, depressed, or hopeless: not at all Feel stressed/tense/nervous/anxious/difficulty sleeping: not at all Do you think of yourself as: straight/heterosexual Gender Identity: male Exam Narrative Exam Narrative: Nurses notes and vital signs reviewed and patient is not hypoxic. General: Well-appearing and in no apparent distress. Skin: Warm, dry, no pallor noted. No rash. Head: Normocephalic, atraumatic. Neck: Supple, non-tender. Eye: Pupils are equal, round and EOMI. No scleral icterus. Ears, Nose, Mouth, and Throat: TM are clear, no nasal mucosal hypertrophy. Oral mucosa is moist, no posterior oropharynx erythema, uvula is mid-line Cardiovascular: Regular Rate and Rhythm without murmur, gallop or rub. Respiratory: No accessory muscle use or respiratory distress. Lungs are clear to auscultation, no wheezing, rales or rhonchi Chest Wall: no tenderness Back: No midline thoracic or lumbar vertebral tenderness. No CVA tenderness Musculoskeletal: normal ROM, no calf or popliteal tenderness, no lower extremity edema/swelling GI: Abdomen is soft, non-distended. Normal bowel sounds. No masses appreciated. No tenderness to palpation. No rebound, guarding, or rigidity noted. There is a scar of previous surgery done just above the umbilicus that is healing. Neurological: A&O x4. No cranial nerve dysfunction observed. Constitutional Vital Signs, click to edit/add: Last Vital Signs Temp 97.5 F L 11/02/24 10:08 Pulse 58 L 11/02/24 11:40 Resp 20 11/02/24 11:40 BP 126/66 11/02/24 11:40 Pulse Ox 98 11/02/24 10:08 O2 Del Method Room Air 11/02/24 10:08 Course Vital Signs Vital signs: Vital Signs Temperature 97.5 F L 11/02/24 10:08 Pulse Rate 72 11/02/24 10:08 Respiratory Rate 18 11/02/24 10:08 Blood Pressure 142/82 H 11/02/24 10:08 Pulse Oximetry 98 11/02/24 10:08 Oxygen Delivery Method Room Air 11/02/24 10:08 Temperature 97.5 F L 11/02/24 10:08 Pulse Rate 58 L 11/02/24 11:40 Respiratory Rate 20 11/02/24 11:40 Blood Pressure 126/66 11/02/24 11:40 Pulse Oximetry 98 11/02/24 10:08 Oxygen Delivery Method Room Air 11/02/24 10:08 MDM - Dizziness MDM Narrative Medical decision making narrative: The patient EKG in the ER showing sinus rhythm with a heart rate of [address] elevation but there is some nonspecific ST depression in lead III and aVF only Troponin was repeated twice and it was negative The patient had no chest pain at any time and his presentation is highly suspicious for vasovagal attack The patient chemistry showing acute kidney injury with a creatinine of 1.5 and BUN of 40 He also was found to have a magnesium of 1.3 Patient provided with 2 g of magnesium as well as 1.5 L of normal saline Urinalysis showed no acute pathology The patient was instructed on hydration and monitoring his symptoms at home he was feeling much better after being treated in the ER Patient to follow-up with his primary care doctor within few days for further evaluation of his acute kidney injury The patient is to follow up with primary care physician in next 2-3 days or to return to the emergency department should any of the signs or symptoms worsen or new symptoms develop. The patient agrees with the following Diagnosis and Treatment plan and the patient will be discharged home. Lab Data Labs: Lab Results 11/02/24 11/02/2411/02/25 Range/Units 10:22 10:39 11:10 WBC 5.6 (4.0-11.0) 10^3/uL RBC 3.83 L (4.70-6.10) 10^6/uL Hgb 12.3 L (14.0-18.0) g/dL Hct 36.0 L (42.0-54.0) % MCV 94.0 (80.0-94.0) fL MCH 32.1 (25.9-34.0) pg MCHC 34.2 (29.9-35.2) g/dL RDW 14.4 (11.0-15.0) % Plt Count 181 (150-450) 10^3/uL MPV 10.9 (9.5-13.5) fL Neut % (Auto) 52.5 (43.0-75.0) % Lymph % (Auto) 37.2 (20.5-60.0) % Maries % (Auto) 6.5 (1.7-12.0) % Eos % (Auto) 3.1 (0.9-7.0) % Baso % (Auto) 0.5 (0.2-2.0) % Neut # (Auto) 2.9 (1.4-6.5) 10^3/uL Lymph # (Auto) 2.1 (1.2-3.8) 10^3/uL Maries # (Auto) 0.4 (0.3-0.8) 10^3/uL Eos # (Auto) 0.2 (0.0-0.7) 10^3/uL Baso # (Auto) 0.0 (0.0-0.1) 10^3/uL Abs Immat Gran (auto) 0.01 (0.00-0.03) 10^3/uL Imm/Tot Granulo (auto) 0.2 (0.0-0.5) % PT 11.4 (9.0-11.6) sec INR 1.08 Sodium 139 (136-145) mmol/L Potassium 5.1 (3.5-5.1) mmol/L Chloride 109 H (98-107) mmol/L Carbon Dioxide 24.0 (21.0-32.0) mmol/L Anion Gap 11.1 BUN 41.0 H (7.0-18.0) mg/dL Creatinine 1.55 H (0.70-1.30) mg/dL Est GFR ( Amer) 53 L (>=60 mL/min/1.73m^2) Est GFR (Non-Af Amer) 44 L (>=60 mL/min/1.73m^2) BUN/Creatinine Ratio 26.5 Glucose 109 H (74-106) mg/dL Calcium 8.4 L (8.5-10.1) mg/dL Magnesium 1.3 L (1.8-2.4) mg/dL Total Bilirubin 0.5 (0.2-1.0) mg/dL AST 17 (15-37) U/L ALT 26 (16-63) U/L Alkaline Phosphatase 71 (46-116) U/L Troponin I High Sens 11.4 (4.0-76.1) pg/mL Total Protein 5.9 L (6.4-8.2) g/dL Albumin 3.1 L (3.4-5.0) g/dL Globulin 2.8 g/dL Albumin/Globulin Ratio 1.1 Urine Color Lt. yellow (YELLOW) Urine Clarity Clear (CLEAR) Urine pH 5.5 (5.0-9.0) Ur Specific [place] 1.025 (1.005-1.025) Urine Protein Negative (NEG/TRACE) mg/dL Urine Glucose (UA) Negative (NEGATIVE) mg/dL Urine Ketones Negative (NEGATIVE) mg/dL Urine Occult Blood Trace-i (NEGATIVE) Urine Nitrite Negative (NEGATIVE) Urine Bilirubin Negative (NEGATIVE) Urine Urobilinogen 0.2 (0.2-1.0) EU/dL Ur Leukocyte Esterase Trace A (NEGATIVE) Urine RBC 2-5 A (0-2) #/HPF Urine WBC 0-2 A (NONE SEEN) #/HPF Ur Squamous Epith Cells Few A (NONE/RARE) #/LPF Urine Crystals None seen (None Seen) #/HPF Urine Bacteria Trace A (NONE SEEN) #/HPF Urine Casts Seen A (NONE SEEN) #/LPF Hyaline Casts Rare Urine Mucus None seen (NONE SEEN) Ur Culture Indicated? No 11/02/24 Range/Units 11:50 WBC (4.0-11.0) 10^3/uL RBC (4.70-6.10) 10^6/uL Hgb (14.0-18.0) g/dL Hct (42.0-54.0) % MCV (80.0-94.0) fL MCH (25.9-34.0) pg MCHC (29.9-35.2) g/dL RDW (11.0-15.0) % Plt Count (150-450) 10^3/uL MPV (9.5-13.5) fL Neut % (Auto) (43.0-75.0) % Lymph % (Auto) (20.5-60.0) % Maries % (Auto) (1.7-12.0) % Eos % (Auto) (0.9-7.0) % Baso % (Auto) (0.2-2.0) % Neut # (Auto) (1.4-6.5) 10^3/uL Lymph # (Auto) (1.2-3.8) 10^3/uL Maries # (Auto) (0.3-0.8) 10^3/uL Eos # (Auto) (0.0-0.7) 10^3/uL Baso # (Auto) (0.0-0.1) 10^3/uL Abs Immat Gran (auto) (0.00-0.03) 10^3/uL Imm/Tot Granulo (auto) (0.0-0.5) % PT (9.0-11.6) sec INR Sodium (136-145) mmol/L Potassium (3.5-5.1) mmol/L Chloride (98-107) mmol/L Carbon Dioxide (21.0-32.0) mmol/L Anion Gap BUN (7.0-18.0) mg/dL Creatinine (0.70-1.30) mg/dL Est GFR ( Amer) (>=60 mL/min/1.73m^2) Est GFR (Non-Af Amer) (>=60 mL/min/1.73m^2) BUN/Creatinine Ratio Glucose (74-106) mg/dL Calcium (8.5-10.1) mg/dL Magnesium (1.8-2.4) mg/dL Total Bilirubin (0.2-1.0) mg/dL AST (15-37) U/L ALT (16-63) U/L Alkaline Phosphatase (46-116) U/L Troponin I High Sens 12.3 (4.0-76.1) pg/mL Total Protein (6.4-8.2) g/dL Albumin (3.4-5.0) g/dL Globulin g/dL Albumin/Globulin Ratio Urine Color (YELLOW) Urine Clarity (CLEAR) Urine pH (5.0-9.0) Ur Specific [place] (1.005-1.025) Urine Protein (NEG/TRACE) mg/dL Urine Glucose (UA) (NEGATIVE) mg/dL Urine Ketones (NEGATIVE) mg/dL Urine Occult Blood (NEGATIVE) Urine Nitrite (NEGATIVE) Urine Bilirubin (NEGATIVE) Urine Urobilinogen (0.2-1.0) EU/dL Ur Leukocyte Esterase (NEGATIVE) Urine RBC (0-2) #/HPF Urine WBC (NONE SEEN) #/HPF Ur Squamous Epith Cells (NONE/RARE) #/LPF Urine Crystals (None Seen) #/HPF Urine Bacteria (NONE SEEN) #/HPF Urine Casts (NONE SEEN) #/LPF Hyaline Casts Urine Mucus (NONE SEEN) Ur Culture Indicated? Discharge Plan Discharge Chief Complaint: Dizziness Clinical Impression: Syncope, vasovagal, Hypomagnesemia, DAVID (acute kidney injury) Patient Disposition: Home, Self-Care Time of Disposition Decision: 12:36 Condition: Good Prescriptions / Home Meds: No Action isosorbide mononitrate 30 mg tablet extended release 24 hr 30 mg PO QAM Qty: 30 11RF ondansetron 8 mg tablet,disintegrating 8 mg PO Q8H PRN (Reason: nausea and vomiting) clonidine HCl 0.1 mg tablet 0.1 mg PO BID lorazepam [Ativan] 1 mg tablet 1 mg PO BID PRN (Reason: anxiety) Eliquis 5 mg Tablet 5 mg PO BID Rx Instructions: 10 mg a day for 1 week then 5 mg po BID lisinopril 20 mg Tablet 40 mg PO DAILY Qty: 60 12RF mesalamine 400 mg capsule (with del rel tablets) 800 mg PO BID Print Language: [place] Instructions: Acute Kidney Injury (DC), Hypomagnesemia (ED), Near Syncope (ED) Referrals: Rodriguez Godwin MD [Primary Care Provider] - 1 week
[2024-11-02 11:40] VITALS: BP 126/66; PULSE 58
[2024-11-02] MEDS: 0.9 % SODIUM CHLORIDE 1,000 ML 500 ML IV (11:48)
[2024-11-02] MEDS: MAGNESIUM SULFATE IN WATER 2 GM/50 ML PREMIX IV (11:58)
[2024-11-02 12:11] LABS: Troponin I High Sensitivity 12.3 pg/mL (4.0-76.1)
== END 2024-11-02 13:19 | disposition home or self-care (01) ==
PROVIDERS: Emergency Provider Emergency Medicine; Family Provider Family Medicine; PCP Family Medicine
DX: R55 Syncope and collapse (principal); E83.42 Hypomagnesemia; N17.9 Acute kidney failure, unspecified; Z87.891 Personal history of nicotine dependence
CPT/HCPCS: 36415; 80053; 81001; 83735; 84484; 85025; 85610; 93005; 96361; 96365; 96375; 99284; J2405; J3475

== ENCOUNTER 2024-11-07 10:37 | Outpatient (OUT) | payer MEDICARE, SELFPAY | END 2024-11-07 10:38 | disposition home or self-care (01) | LOC: RAD 10:39 | PROVIDERS: Family Provider Family Medicine; PCP Family Medicine; Visit Provider Family Medicine | DX: R60.0 Localized edema (principal) | CPT/HCPCS: 93971 ==

== ENCOUNTER 2024-11-14 10:19 | Emergency (ER) | payer MEDICARE, SELFPAY ==
[2024-11-14 10:24] VITALS: BP 178/86; PULSE 98; O2SAT 99; BMI 23.1
--- OUTSIDE RECORDS SUMMARY | 2024-11-14 10:26 | XMS_ITS | CCD ---
Author Organization [facility] Care Team Providers Care Physician Extender Name Role Phone DR BEHZAD CROCKER Primary Care Unavailable DANIEL ., JUNI Attending Unavailable DANIEL ., JUNI Admitting Unavailable DR ROBERT DAVENPORT V Consulting Unavailable PITER GROSSMAN Consulting Unavailable DANIEL ., JUNI Consulting Unavailable DIAB ., GRAYSON Consulting Unavailable ADIYTA OATES Consulting Unavailable MD Lauren Godwin Primary Care Provider [phone] DO Ramiro Cortez Emergency Provider MD Lauren Godwin Primary Care Provider [phone] KYA Garrison Emergency Provider Bulldk, [employer] Naima Phelan Emergency Provider Lauren Godwin Primary [...] GODWIN Referring Unavailable MARIBEL BOJORQUEZ Referring Unavailable MARIBEL BOJORQUEZ Attending Unavailable Allergies Allergy Classification Reported Allergen(s) Allergy Type Date of Onset Reaction(s) Facility (2 sources) Fish derivative; Translations: [fish derived] Propensity to adverse reactions 03-03-20 Gastrointestinal Upset [facility] (1 source) atorvastatin; Translations: [ATORVASTATIN] Drug Allergy 04-06-20 [facility] Repository Medications Current Medications Medication Drug Class(es) [...] disease (2 sources) Atherosclerotic heart disease of [place] coronary artery without angina pectoris; Translations: [Atherosclerotic heart disease of [place] coronary artery without angina pectoris] Onset: 09-24-2024 Chronic Epilepsy; convulsions (1 source) Unspecified convulsions; Translations: [Unspecified convulsions] Onset: 08-09-2024 Episodic Essential hypertension (3 sources) Essential (primary) hypertension; Translations: [ESSENTIAL PRIMARY HYPERTENSION] Onset: 01-12-2023 Chronic Other aftercare (1 source) senior care (current) use of systemic steroids; Translations: [TRAVEL MED SURG RN USE OF SYSTEMIC STEROIDS] Onset: 01-12-2023 Episodic Other aftercare (1 source) 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; Translations: [[facility] [...] chest pain; Translations: [Other chest pain] Onset: 07-20-2023 05-27-2024 Episodic Unclassified (1 source) Other ventricular tachycardia; Translations: [Other ventricular tachycardia] Onset: 04-06-2024 Results Test Name Value Interpretation Reference Range Facility Office Visiton 09-24-2024 Follow-up visit [id number] Jeb Riddle 1950 M Date Provider Department Center 09/24/2024 JESSICA JAMISON C[facility] Family History Problem Relation Age of Onset Diabetes Mother Coronary artery disease Mother Heart attack Father Diabetes Father Coronary artery disease Father Family Status - Relation Status Age at Mother Father Level of Service:02690 OK OFFICE/OUTPATIENT ESTABLISHED MOD MDM 30 MIN Normal [facility] CBC AND AUTO DIFFon 08-09-20 ABSOLUTE BASOPHIL 0.0 X10E9/L Normal 0.0-0.2 [facility] Comment on above: Performed By: #### 1 9123-9, 76826-8, CMP, 75108-2, 45386-2, CBCA, 5643-2, PINR #### [facility] ([id number]) [address] [place] [address] 63566 ABSOLUTE NEUTROPHIL 3.9 X10E9/L Normal 1.5-6.6 [facility] Comment on above: Performed By: #### 1 9123-9, 99851-9, CMP, 88874-0, 26677-8, CBCA, 5643-2, PINR #### [facility] ([id number]) [address] [place] [address] 56131 Basophils/100 WBC (Bld) 0.3 % Normal [facility] Comment on above: Performed By: #### 1 9123-9, 94097-9, CMP, 41423-7, 62784-5, CBCA, 5643-2, PINR #### [facility] ([id number]) [address] [place] [address] 23573 Eosinophils (Bld) [#/Vol] 0.1 10*3/uL Normal 0.0-0.4 [facility] Comment on above: Performed By: #### 1 9123-9, 62648-8, CMP, 49508-1, 85346-2, CBCA, 5643-2, PINR #### [facility] ([id number]) [address] [place] [address] 60383 Eosinophils/100 WBC (Bld) 1.4 % Normal [facility] Comment on above: Performed By: #### 1 9123-9, 77701-6, CMP, 31156-7, 76486-9, CBCA, 5643-2, PINR #### [facility] ([id number]) [address] [place] [address] 94620 Erythrocyte distribution width (RBC) [Ratio] 13.0 % Normal 11.5-15.0 [facility] Comment on above: Performed By: #### 1 9123-9, 55982-3, CMP, 76326-2, 93204-5, CBCA, 5643-2, PINR #### [facility] ([id number]) [address] [place] [address] 41799 Hematocrit (Bld) [Volume fraction] 35.7 % Low 39-49 [facility] Comment on above: Performed By: #### 1 9123-9, 29072-2, CMP, 40399-2, 60888-2, CBCA, 5643-2, PINR #### [facility] ([id number]) [address] [place] [address] 07046 Hemoglobin (Bld) [Mass/Vol] 12.3 g/dL Low 13.0-17.0 [facility] Comment on above: Performed By: #### 1 9123-9, 39278-1, CMP, 82555-4, 16203-7, CBCA, 5643-2, PINR #### [facility] ([id number]) [address] [place] [address] 26506 Lymphocytes (Bld) [#/Vol] 1.1 10*3/uL Normal 1.0-3.5 [facility] Comment on above: Performed By: #### 1 9123-9, 08217-8, CMP, 58485-3, 70170-4, CBCA, 5643-2, PINR #### [facility] ([id number]) [address] [place] [address] 26961 Lymphocytes/100 WBC (Bld) 21.0 % Normal [facility] Comment on above: Performed By: #### 1 23-9, 87714-3, CMP, 95783-5, 89054-9, CBCA, 5643-2, PINR #### [facility] ([id number]) [address] [place] [address] 76719 MCH (RBC) [Entitic mass] 33.2 pg Normal 27-34 [facility] Comment on above: Performed By: #### 1 23-9, 85109-2, CMP, 64597-6, 74755-1, CBCA, 5643-2, PINR #### [facility] ([id number]) [address] [place] [address] 86657 MCHC (RBC) [Mass/Vol] 34.3 g/dL Normal 32-36 [facility] Comment on above: Performed By: #### 1 23-9, 77723-1, CMP, 51052-8, 29213-5, CBCA, 5643-2, PINR #### [facility] ([id number]) [address] [place] [address] 78458 MCV (RBC) [Entitic vol] 97 fL Normal 80-100 [facility] Comment on above: Performed By: #### 1 9123-9, 17435-5, CMP, 30220-7, 72530-5, CBCA, 5643-2, PINR #### [facility] ([id number]) [address] [place] [address] 98091 Monocytes (Bld) [#/Vol] 0.2 10*3/uL Normal 0-0.9 [facility] Comment on above: Performed By: #### 1 9123-9, 67908-6, CMP, 51654-6, 58184-0, CBCA, 5643-2, PINR #### [facility] ([id number]) [address] [place] [address] 62933 Monocytes/100 WBC (Bld) 4.5 % Normal [facility] Comment on above: Performed By: #### 1 9123-9, 30851-5, CMP, 06344-6, 77169-7, CBCA, 5643-2, PINR #### [facility] ([id number]) [address] [place] [address] 52286 Neutrophils/100 WBC (Bld) 72.8 % Normal [facility] Comment on above: Performed By: #### 1 9123-9, 04978-8, CMP, 92161-6, 65856-6, CBCA, 5643-2, PINR #### [facility] ([id number]) [address] [place] [address] 27589 Platelet mean volume (Bld) [Entitic vol] 7.7 fL Normal 7-12 [facility] Comment on above: Performed By: #### 1 9123-9, 68466-1, CMP, 96223-1, 80041-3, CBCA, 5643-2, PINR #### [facility] ([id number]) [address] [place] [address] 35229 Platelets (Bld) [#/Vol] 208 10*3/uL Normal 150-450 [facility] Comment on above: Performed By: #### 1 9123-9, 19930-1, CMP, 66158-3, 54072-9, CBCA, 5643-2, PINR #### [facility] ([id number]) [address] [place] [address] 04855 RBC COUNT 3.69 X10E12/L Low 4.10-5.70 [facility] Comment on above: Performed By: #### 1 9123-9, 55072-9, CMP, 45976-5, 31005-6, CBCA, 5643-2, PINR #### [facility] ([id number]) [address] [place] [address] 00513 WBC (Bld) [#/Vol] 5.4 10*3/uL Normal 4.0-11.0 [facility] Comment on above: Performed By: #### 1 9123-9, 88006-3, CMP, 89154-8, 69917-3, CBCA, 5643-2, PINR #### [facility] ([id number]) [address] [place] [address] 23702 COMPREHENSIVE METABOLIC PANE [facility] 08-09-2024 Albumin [Mass/Vol] 3.5 g/dL Normal 3.2-5.3 [facility] Comment on above: Performed By: #### 1 9123-9, 92234-6, CMP, 41298-3, 50879-3, CBCA, 5643-2, PINR #### [facility] ([id number]) [address] [place] [address] 47854 ALP [Catalytic activity/Vol] 56 U/L Normal 39-130 [facility] Comment on above: Performed By: #### 1 9123-9, 02769-1, CMP, 02422-8, 35961-8, CBCA, 5643-2, PINR #### [facility] ([id number]) [address] [place] [address] 00757 ALT [Catalytic activity/Vol] 25 U/L Normal 0-40 [facility] Comment on above: Performed By: #### 1 9123-9, 37406-2, CMP, 52546-5, 26560-9, CBCA, 5643-2, PINR #### [facility] ([id number]) [address] [place] [address] 37616 Anion gap [Moles/Vol] 7 mmol/L Normal 5-15 [facility] Comment on above: Performed By: #### 1 9123-9, 09352-4, CMP, 89643-2, 90734-3, CBCA, 5643-2, PINR #### [facility] ([id number]) [address] [place] [address] 39002 AST [Catalytic activity/Vol] 19 U/L Normal 0-41 [facility] Comment on above: Performed By: #### 1 9123-9, 05330-2, CMP, 96459-5, 01192-3, CBCA, 5643-2, PINR #### [facility] ([id number]) [address] [place] [address] 43483 Bilirubin [Mass/Vol] 0.4 mg/dL Normal 0.3-1.2 [facility] Comment on above: Performed By: #### 1 9123-9, 56908-9, CMP, 29805-3, 77444-5, CBCA, 5643-2, PINR #### [facility] ([id number]) [address] [place] [address] 46685 Calcium [Mass/Vol] 8.8 mg/dL Normal 8.5-10.5 [facility] Comment on above: Performed By: #### 1 9123-9, 08974-0, CMP, 90407-9, 23097-1, CBCA, 5643-2, PINR #### [facility] ([id number]) [address] [place] [address] 11910 Chloride [Moles/Vol] 108 mmol/L Normal 98-109 [facility] Comment on above: Performed By: #### 1 9123-9, 89884-2, CMP, 57898-4, 45605-4, CBCA, 5643-2, PINR #### [facility] ([id number]) [address] [place] [address] 09343 CO2 [Moles/Vol] 23 mmol/L Normal 22-32 [facility] Comment on above: Performed By: #### 1 9123-9, 41340-0, CMP, 38419-9, 68703-2, CBCA, 5643-2, PINR #### [facility] ([id number]) [address] [place] [address] 52031 Creatinine [Mass/Vol] 1.37 mg/dL High 0.70-1.20 [facility] Comment on above: Result Comment: METH OD TRACEABLE TO IDMS STANDARD Performed By: #### 1 9123-9, 00780-0, CMP, 56737-5, 67374-0, CBCA, 5643-2, PINR #### [facility] ([id number]) [address] [place] [address] 78708 GFR/1.73 sq M.predicted among non-blacks MDRD (S/P/Bld) [Vol rate/Area] 54 mL/min/{1.73_m2} Low >59 [facility] Comment on above: Result Comment: Reported eGFR is based on the CKD-EPI 2020 equation that does not use a race coefficient. Performed By: #### 1 9123-9, 48433-5, CMP, 92417-4, 92139-6, CBCA, 5643-2, PINR #### [facility] ([id number]) [address] [place] [address] 80895 Glucose [Mass/Vol] 155 mg/dL High 65-99 [facility] Comment on above: Performed By: #### 1 9123-9, 82133-0, CMP, 01463-8, 43362-7, CBCA, 5643-2, PINR #### [facility] ([id number]) [address] [place] [address] 24629 Potassium [Moles/Vol] 4.3 mmol/L Normal 3.5-5.0 [facility] Comment on above: Performed By: #### 1 9123-9, 98720-4, CMP, 05793-6, 19471-9, CBCA, 5643-2, PINR #### [facility] ([id number]) [address] [place] [address] 36027 Protein [Mass/Vol] 6.0 g/dL Normal 6.0-8.0 [facility] Comment on above: Performed By: #### 1 9123-9, 68461-9, CMP, 43356-1, 37542-9, CBCA, 5643-2, PINR #### [facility] ([id number]) [address] [place] [address] 69136 Sodium [Moles/Vol] 138 mmol/L Normal 134-146 [facility] Comment on above: Performed By: #### 1 9123-9, 03854-9, CMP, 85879-2, 92546-7, CBCA, 5643-2, PINR #### [facility] ([id number]) [address] [place] [address] 42401 Urea nitrogen [Mass/Vol] 25 mg/dL Normal 5-27 [facility] Comment on above: Performed By: #### 1 9123-9, 27887-4, CMP, 72221-1, 05394-1, CBCA, 5643-2, PINR #### [facility] ([id number]) [address] [place] [address] BRAIN WO CONTon 4 CT BRAIN [...] Moran MD on 08/09/2024 12:54 PM Normal [facility] DRUG SCREEN, URINEon 024 AMPHETAMINE/METHAMP Negative Normal NEG [facility] Comment on above: Result Comment: AMPH /METH screening cut off = 1000 ng/mL Performed By: #### 1 9123-9, 53868-7, CMP, 16607-5, 66405-5, CBCA, 5643-2, PINR #### [facility] ([id number]) [address] [place] [address] 63151 BARBITURATES Negative Normal NEG [facility] Comment on above: Result Comment: Maria Eugenia iturates screening cut off value = 200 ng/mL Performed By: #### 1 9123-9, 30211-2, CMP, 83763-5, 64729-0, CBCA, 5643-2, PINR #### [facility] ([id number]) [address] [place] [address] 84637 BENZODIAZEPINES Negative Normal NEG [facility] Comment on above: Result Comment: Paulie odiazepines screening cut off value = 200 ng/mL Performed By: #### 1 9123-9, 67338-6, CMP, 62695-3, 91797-2, CBCA, 5643-2, PINR #### [facility] ([id number]) [address] [place] [address] 50431 CANNABINOIDS Negative Normal [facility] Comment on above: Result Comment: Nora abinoids/THC screening cut off value = 50 ng/mL Performed By: #### 1 9123-9, 55191-5, CMP, 26194-2, 52404-3, CBCA, 5643-2, PINR #### [facility] ([id number]) [address] [place] [address] 59374 COCAINE METABOLITE Negative Normal [facility] Comment on above: Result Comment: Coca ine screening cut off value = 300 ng/mL Performed By: #### 1 9123-9, 69572-7, CMP, 91857-4, 62968-9, CBCA, 5643-2, PINR #### [facility] ([id number]) [address] [place] [address] 84261 ECSTASY Negative Normal NEG [facility] Comment on above: Result Comment: Ecst asy screening cut off value = 500 ng/mL This report is intended for use in clinical monitoring or management of patients. Performed By: #### 1 9123-9, 70024-2, CMP, 77546-7, 03557-4, CBCA, 5643-2, PINR #### [facility] ([id number]) [address] [place] [address] 17051 METHADONE Negative Normal NEG [facility] Comment on above: Result Comment: Meth adone screening cut off value = 300 ng/mL. Performed By: #### 1 9123-9, 45111-4, CMP, 37625-5, 01901-3, CBCA, 5643-2, PINR #### [facility] ([id number]) [address] [place] [address] 79243 OPIATES Negative Normal NEG [facility] Comment on above: Result Comment: Opia brennen screening cut off value = 300 ng/mL NOTE: This test is used for the detection of codeine, hydrocodone (>1000 ng/mL), morphine and hydromorphone (>900 ng/mL) in urine. Performed By: #### 1 9123-9, 14449-1, CMP, 73749-7, 62703-6, CBCA, 5643-2, PINR #### [facility] ([id number]) [address] [place] [address] 76431 OXYCODONE Negative Normal NEG [facility] Comment on above: Result Comment: Oxyc odone screening cut off value = 300 ng/mL NOTE: This test is used for the detection of oxycodone and oxymorphone in urine. Performed By: #### 1 9123-9, 40680-1, CMP, 45860-8, 59526-0, CBCA, 5643-2, PINR #### [facility] ([id number]) [address] [place] [address] 25335 PHENCYCLIDINE Negative Normal NEG [facility] Comment on above: Result Comment: Phen cyclidine screening cut off value = 25 ng/mL Performed By: #### 1 9123-9, 65052-3, CMP, 70107-7, 63133-2, CBCA, 5643-2, PINR #### [facility] ([id number]) [address] [place] [address] 13203 ETHANOLon 08-09-2024 Ethanol [Mass/Vol] mg/dL Normal 0.00-0.08 [facility] Comment on above: Result Comment: This report is intended for use in clinical monitoring or management of patients. Performed By: #### 1 9123-9, 13304-9, [facility], 73637-9, 02340-4, CBCA, 5643-2, PINR #### [facility] ([id number]) [address] [place] [address] 53013 Fibrin D-dimer DDU (PPP) [Ma ss/Vol]on 08-09-2024 D DIMER 167 ng/mL DDU Normal <255 [facility] Comment on above: Result Comment: Results <255 ng/mL DDU: The presence of a VTE can safely be excluded with a negative D-Dimer result and Wells score. A negative result doesn't exclude the possibility of DIC. The test be repeated along with other diagnostic tests if the patient's symptoms persist or worsen. [email or web address] Performed By: #### 1 9123-9, 02380-6, CMP, 92226-3, 29612-1, CBCA, 5643-2, PINR #### [facility] ([id number]) [address] [place] [address] 70485 MAGNESIUMon 08-09-2024 Magnesium [Mass/Vol] 1.4 mg/dL Low 1.8-2.6 [facility] Comment on above: Performed By: #### 1 9123-9, 27019-1, CMP, 87266-9, 68683-7, CBCA, 5643-2, PINR #### [facility] ([id number]) [address] [place] [address] 46571 PROTIME AND INRon 08-09-2024 INR Coag (PPP) [Relative time] 1.2 {INR} High 0.8-1.1 [facility] Comment on above: Performed By: #### 1 9123-9, 43919-6, CMP, 04840-8, 35026-4, CBCA, 5643-2, PINR #### [facility] ([id number]) [address] [place] [address] 29009 PT Coag (PPP) [Time] 14.3 s High 9.8-13.2 [facility] Comment on above: Result Comment: NEW REFERENCE RANGE Performed By: #### 1 9123-9, 90881-9, CMP, 50182-0, 12852-0, CBCA, 5643-2, PINR #### [facility] ([id number]) [address] [place] [address] [place] [address] Troponin I.cardiac High sens itivity method [Mass/Vol]on 08-09-2024 1 HOUR TROP I, HIGH SENSITIVITY 10 ng/L Normal <21 [facility] Comment on above: Performed By: #### 1 9123-9, 15599-6, CMP, 55408-1, 70396-1, CBCA, 5643-2, PINR #### [facility] ([id number]) [address] [place] [address] 83318 TROPONIN I, HIGH SENSITIVITY 8 ng/L Normal <21 [facility] Comment on above: Performed By: #### 1 9123-9, 98042-9, CMP, 85367-4, 84689-2, CBCA, 5643-2, PINR #### [facility] ([id number]) [address] [place] [address] 43070 URINALYSISon 08-09-2024 Bilirubin Ql (U) Negative Normal NEG [facility] Comment on above: Performed By: #### 1 9123-9, 01569-4, CMP, 52412-0, 60698-5, CBCA, 5643-2, PINR #### [facility] ([id number]) [address] [place] [address], [place] [address] BLOOD/HGB Negative Normal NEG [facility] Comment on above: Performed By: #### 1 9123-9, 05466-6, CMP, 54309-9, 54493-4, CBCA, 5643-2, PINR #### [facility] ([id number]) [address] [place] [address], [place] [address] Color (U) YELLOW Normal YELLOW [facility] Comment on above: Performed By: #### 1 9123-9, 07275-1, CMP, 48392-0, 05450-8, CBCA, 5643-2, PINR #### [facility] ([id number]) [address] [place] [address], [place] [address] Glucose Ql (U) Negative Normal NEG [facility] Comment on above: Performed By: #### 1 9123-9, 79988-9, CMP, 66666-2, 69055-6, CBCA, 5643-2, PINR #### [facility] ([id number]) [address] [place] [address] 28582 Ketones Ql (U) Negative Normal NEG [facility] Comment on above: Performed By: #### 1 9123-9, 10700-5, CMP, 23974-3, 81983-8, CBCA, 5643-2, PINR #### [facility] ([id number]) [address] [place] [address] 02355 Leukocyte esterase Test strip Ql (U) Negative Normal NEG [facility] Comment on above: Performed By: #### 1 9123-9, 35327-2, CMP, 25085-5, 41526-0, CBCA, 5643-2, PINR #### [facility] ([id number]) [address] [place] [address] 67751 Nitrite Ql (U) Negative Normal NEG [facility] Comment on above: Performed By: #### 1 9123-9, 78919-6, CMP, 74129-2, 05368-4, CBCA, 5643-2, PINR #### [facility] ([id number]) [address] [place] [address] 90005 pH (U) 6.0 [pH] Normal 5.0-8.5 [facility] Comment on above: Performed By: #### 1 9123-9, 54876-9, CMP, 36015-1, 88534-2, CBCA, 5643-2, PINR #### [facility] ([id number]) [address] [place] [address] 47334 Protein Ql (U) Negative Normal NEG [facility] Comment on above: Performed By: #### 1 9123-9, 37683-1, CMP, 74947-9, 12703-0, CBCA, 5643-2, PINR #### [facility] ([id number]) [address] [place] [address] [place] [address] Specific gravity (U) [Rel density] 1.025 Normal 1.003-1.03 5 [facility] Comment on above: Performed By: #### 1 9123-9, 47128-6, CMP, 75152-2, 28392-5, CBCA, 5643-2, PINR #### [facility] ([id number]) [address] [place] [address] [place] [address] TURBIDITY CLEAR Normal CLEAR [facility] Comment on above: Performed By: #### 1 9123-9, 13338-0, CMP, 67332-9, 44624-4, CBCA, 5643-2, PINR #### [facility] ([id number]) [address] [place] [address] 43441 Urobilinogen Qn (U) 0.2 {Temo'U}/dL Normal <1.1 [facility] Comment on above: Performed By: #### 1 9123-9, 29922-0, CMP, 71822-7, 01574-1, CBCA, 5643-2, PINR #### [facility] ([id number]) [address] [place] [address] URN MACROSCOPIC NURon 2023 BILIRUBIN [place] Negative Normal NEG [facility] Comment on above: Performed By: #### N UM #### [facility] ([id number]) [address] [place] [address] [place] [address] BLOOD/HGB [place] Negative Normal NEG [facility] Comment on above: Performed By: #### N UM #### [facility] ([id number]) [address] [place] [address] [place] [address] GLUCOSE [place] Negative Normal NEG [facility] Comment on above: Performed By: #### N UM #### [facility] ([id number]) [address] [place] [address] [place] [address] KETONES [place] Negative Normal NEG [facility] Comment on above: Performed By: #### N UM #### [facility] ([id number]) [address] [place] [address] [place] [address] LEUKOCYTE ESTERASE [place] Negative Normal NEG [facility] Comment on above: Performed By: #### N UM #### [facility] ([id number]) [address] [place] [address] [place] [address] NITRITE [place] Negative Normal NEG [facility] Comment on above: Performed By: #### N UM #### [facility] ([id number]) [address] [place] [address] PH [place] 5.5 Normal 5.0-8.5 [facility] Comment on above: Performed By: #### N UM #### [facility] ([id number]) [address] [place] [address] PROTEIN [place] Negative Normal NEG [facility] Comment on above: Performed By: #### N UM #### [facility] ([id number]) [address] [place] [address] [place] [address] SPECIFIC GRAVITY [place] 1.020 Normal 1.003-1 .03 5 [facility] Comment on above: Performed By: #### N UM #### [facility] ([id number]) [address] [place] [address] [place] [address] UROBILINOGEN [place] 0.2 eu/dL Normal <1.1 [facility] Comment on above: Performed By: #### N UM #### [facility] ([id number]) [address] [place] [address] [place] [address] aPTT Coag (PPP) [Time]on aPTT Coag (Bld) [Time] 33 s Normal 26-37 [facility] Comment on above: Result Comment: NEW REFERENCE RANGE Performed By: #### 1 9123-9, 03172-1, CMP, 16492-9, 41361-1, CBCA, 5643-2, PINR #### [facility] ([id number]) [address] [facility] [place] [address] 36on 04-18-2024 36 From: Jessica muñoz MD Sent: 04/18/2024 12:32 PM EDT To: Yuridia Nuñez MA Subject: RE: Scan Please inform him that blood testing for clotting disorder is negative. He should follow up with Dr Godwin for cancer screening. Pt has been notified [facility] Office Visiton 04-06-2024 Follow-up visit [id number] Jeb Riddle 1950 M Date Provider Department Center 04/06/2024 Rafael-JESSICA FORRESTER MISSY Sand[facility] Family History Problem Relation Age of Onset Diabetes Mother Coronary artery disease Mother Heart attack Father Diabetes Father Coronary artery disease Father Family Status - Relation Status Age at Mother Father Level of Service:[id number] [place] OFFICE/OUTPATIENT ESTABLISHED MOD MDM 30 MIN [facility] 36on 02-17-2024 36 Patient called back [...] w/ sister Mary to return my call. [facility] Activated partial thrombopla stin time (aPTT) in platelet poor plasma by coagulation aOrdered By: Naima Boyd on 01-09-2024 aPTT Coag (PPP) [Time] 29.1 s 25.1-36.5 [facility] Comment on above: A hematocrit value g reater than 55% may lead to inaccurate results in coagulation testing. Patients having hematocrit values >55% require a special collection tube for coagulation studies. Please contact the laboratory at [phone] for redraw instructions. B-Type Natriuretic Peptideon 01-09-2024 Natriuretic peptide B (Bld) [Mass/Vol] 172.0 pg/mL High 5-100 [facility] Comment on above: Result Comment: PERF ORMED BY: [facility] [address] [place] [address] PATHOLOGIST IMAGE CONSULTANT RADHA BARRON M.D. Performed By: #### B CHIEF RADIOLOGY, HS TROP, BMP, CK, DIFF CBC ####[address] Basic Metabolic Panelon 12-14 Anion gap [Moles/Vol] Not performed Normal 6.0-15.0 [facility] Comment on above: Performed By: #### B CHIEF RADIOLOGY, HS TROP, BMP, CK, DIFF CBC ####[address] Calcium [Mass/Vol] 8.7 mg/dL Normal 8.6-10.3 [facility] Comment on above: Performed By: #### B CHIEF RADIOLOGY, HS TROP, BMP, CK, DIFF CBC ####[address] Chloride [Moles/Vol] 109 mmol/L High 98-107 [facility] Comment on above: Performed By: #### B CHIEF RADIOLOGY, HS TROP, BMP, CK, DIFF CBC ####[place] [id number] [facility] CO2 [Moles/Vol] 22.4 mmol/L Normal 21.0-31.0 [facility] Comment on above: Performed By: #### B CHIEF RADIOLOGY, HS TROP, BMP, CK, DIFF CBC ####[place] [id number] [facility] Creatinine [Mass/Vol] 1.16 mg/dL Normal 0.70-1.30 [facility] Comment on above: Performed By: #### B CHIEF RADIOLOGY, HS TROP, BMP, CK, DIFF CBC ####[place] [address] [place] [id number] [facility] Creatinine Clr Calc Pharmacy 64.96 Normal [facility] Comment on above: Result Comment: PERF ORMED BY: [facility] [address] [place] [address] PATHOLOGIST IMAGE CONSULTANT RADHA BARRON M.D. Performed By: #### B CHIEF RADIOLOGY, HS TROP, BMP, CK, DIFF CBC ####[address] GFR/1.73 sq M.predicted MDRD (S/P/Bld) [Vol rate/Area] mL/min/{1.73_m2} Normal [facility] Comment on above: Performed By: #### B CHIEF RADIOLOGY, HS TROP, BMP, CK, DIFF CBC ####[address] Glucose [Mass/Vol] 95 mg/dL Normal 70-100 [facility] Comment on above: Result Comment: [facility] Glucose Reference Range is dependent on time and content of last meal. Glucose of more than 200 mg/dL in a nonstressed, ambulatory subject supports the diagnosis of Diabetes Mellitus. ADA recommended reference range Performed By: #### B CHIEF RADIOLOGY, HS TROP, BMP, CK, DIFF CBC ####[address] Potassium Normal 3.5-5.1 [facility] Comment on above: Result Comment: Spec imen hemolyzed, redraw requested Performed By: #### B CHIEF RADIOLOGY, HS TROP, BMP, CK, DIFF CBC ####[address] Sodium [Moles/Vol] 142 mmol/L Normal 136-145 [facility] Comment on above: Performed By: #### B CHIEF RADIOLOGY, HS TROP, BMP, CK, DIFF CBC ####[address] Urea nitrogen [Mass/Vol] 20 mg/dL Normal 7-25 [facility] Comment on above: Performed By: #### B CHIEF RADIOLOGY, HS TROP, BMP, CK, DIFF CBC ####[facility] [id number] [place] [id number] [place] Basophils Auto (Bld) [#/Vol] Ordered By: Naima Rutherfordore on 01-09-2024 Basophils (Bld) [#/Vol] N/A [facility] Basophils/100 WBC Auto (Bld) Ordered By: Naima Bullimore on 01-09-2024 Basophils/100 WBC (Bld) N/A [facility] Basophils/100 WBC Manual cnt (Bld)Ordered By: Naima Bullimore on 01-09-2024 Basophils/100 WBC (Bld) 0 % 0-2 [facility] CT angio chest PE protocolon 01-09-2024 CT angio chest PE protocol [facility] Main [place] [address] [place] [id number] Scan Report Signed Patient: Jeb Riddle MR#: [id number] : 1950 Acct:[id number] Age/Sex: 73 / M ADM Date: 01/09/24 [...] Jeb Collins M.D.01/09/2024 6:17 PM Dictation Location: [place] [address] Transcribed By: [facility] 01/09/241816 Dictated By: Jeb Collins II, MD 01/09/241810 Signed By: 01/09/241816 Normal [facility] Calcium [Mass/volume] in Ser um or PlasmaOrdered By: Naima Boyd on 01-09-2024 Calcium [Mass/Vol] 8.7 mg/dL 8.6-10.3 [facility] Carbon dioxide, total [Moles /volume] in Serum or PlasmaOrdered By: Naima Boyd on 01-09-2024 CO2 [Moles/Vol] 22.4 mmol/L 21.0-31.0 [facility] Chloride [Moles/volume] in S pooja or PlasmaOrdered By: Naima Boyd on 01-09-2024 Chloride [Moles/Vol] 109 mmol/L 98-107 [facility] Coagulation Profileon 2023 aPTT Coag (Bld) [Time] 29.1 s Normal 25.1-36.5 [facility] Comment on above: Order Comment: REDRA W Result Comment: A he matocrit value greater than 55% may lead to inaccurate results in coagulation testing. Patients having hematocrit values >55% require a special collection tube for coagulation studies. Please contact the laboratory at [phone] for redraw instructions. Performed By: #### P P, DDIMER ####[place] [id number] [facility] INR Coag (PPP) [Relative time] 1.0 {INR} Normal [facility] Comment on above: Order [...] 4.5 Performed By: #### P P, DDIMER ####[place] [id number] [facility] PT Coag (PPP) [Time] 11.9 s Normal 9.0-12.9 [facility] Comment on above: Order Comment: REDRA W Result Comment: A he matocrit value greater than 55% may lead to inaccurate results in coagulation testing. Patients having hematocrit values >55% require a special collection tube for coagulation studies. Please contact the laboratory at [phone] for redraw instructions. Performed By: #### P P, DDIMER ####[place] [id number] [facility] Creatine Kinaseon 01-09-2024 CK [Catalytic activity/Vol] 81 U/L Normal [facility] Comment on above: Performed By: #### B CHIEF RADIOLOGY, HS TROP, BMP, CK, DIFF CBC ####[place] [id number] [facility] Creatine kinase [Enzymatic a ctivity/volume] in Serum or PlasmaOrdered By: Naima Boyd on 01-09-2024 CK [Catalytic activity/Vol] 81 U/L - [facility] Creatinine [Mass/volume] in Serum or PlasmaOrdered By: Naima Boyd on 01-09-2024 Creatinine [Mass/Vol] 1.16 mg/dL 0.70-1.30 [facility] D-Dimer High Sensitivityon 0 01-09-2024 D-Dimer High Sensitivity 1905 ng/mL High 0-243 [facility] Comment on above: Order [...] coagulation studies. Please contact the laboratory at [phone] for redraw instructions. PERFORMED BY: [address] [place] [address] PATHOLOGIST IMAGE CONSULTANT RADHA BARRON M.D. Performed By: #### P P, DDIMER ####[place] [id number] [facility] Diff and CBCon 01-09-2024 Basophils/100 WBC (Bld) 0 % Normal 0-2 [facility] Comment on above: Performed By: #### B CHIEF RADIOLOGY, HS TROP, BMP, CK, DIFF CBC ####[place] [id number] [facility] Eosinophils/100 WBC (Bld) 4 % High 1-3 [facility] Comment on above: Performed By: #### B CHIEF RADIOLOGY, HS TROP, BMP, CK, DIFF CBC ####[place] [id number] [facility] Erythrocyte distribution width (RBC) [Ratio] 14.9 % High 12.0-14.8 [facility] Comment on above: Performed By: #### B CHIEF RADIOLOGY, HS TROP, BMP, CK, DIFF CBC ####[place] [id number] [facility] Hematocrit (Bld) [Volume fraction] 41.9 % Normal 38.8-50.0 [facility] Comment on above: Performed By: #### B CHIEF RADIOLOGY, HS TROP, BMP, CK, DIFF CBC ####[address] Hemoglobin (Bld) [Mass/Vol] 14.1 g/dL Normal 13.0-17.0 [facility] Comment on above: Performed By: #### B CHIEF RADIOLOGY, HS TROP, BMP, CK, DIFF CBC ####[address] Lymphocytes/100 WBC (Bld) 27 % Normal 18-42 [facility] Comment on above: Performed By: #### B CHIEF RADIOLOGY, HS TROP, BMP, CK, DIFF CBC ####[address] MCH (RBC) [Entitic mass] 32.0 pg Normal 27.5-35.2 [facility] Comment on above: Performed By: #### B CHIEF RADIOLOGY, HS TROP, BMP, CK, DIFF CBC ####[address] MCV (RBC) [Entitic vol] 95.1 fL Normal 83.5-101 [facility] Comment on above: Performed By: #### B CHIEF RADIOLOGY, HS TROP, BMP, CK, DIFF CBC ####[address] Mean Corpuscular HGB Conc 33.6 g/dL Normal 32.5-35.6 [facility] Comment on above: Performed By: #### B CHIEF RADIOLOGY, HS TROP, BMP, CK, DIFF CBC ####[address] Monocytes/100 WBC (Bld) 25.58 % High 0.00-20.00 [facility] Comment on above: Result Comment: For adults in ED, MDW > 20.0 may be associated with a higher risk of sepsis during the first 12 hrs of hospital admission Performed By: #### B CHIEF RADIOLOGY, HS TROP, BMP, CK, DIFF CBC ####[address] [place] [address] [place] Monocytes/100 WBC (Bld) 7 % Normal 2-11 [facility] Comment on above: Performed By: #### B CHIEF RADIOLOGY, HS TROP, BMP, CK, DIFF CBC ####[place] [id number] [facility] Nucleated Red Blood Cell 0 /100{WBC} Normal 0-0 [facility] Comment on above: Performed By: #### B CHIEF RADIOLOGY, HS TROP, BMP, CK, DIFF CBC ####[place] [id number] [facility] Platelet Estimate Normal Normal Normal [facility] Comment on above: Performed By: #### B CHIEF RADIOLOGY, HS TROP, BMP, CK, DIFF CBC ####[place] [id number] [facility] Platelet mean volume (Bld) [Entitic vol] 8.6 fL Normal 6.6-10.1 [facility] Comment on above: Performed By: #### B CHIEF RADIOLOGY, HS TROP, BMP, CK, DIFF CBC ####[place] [id number] [facility] Platelet Morphology Normal Normal Normal [facility] Comment on above: Performed By: #### B CHIEF RADIOLOGY, HS TROP, BMP, CK, DIFF CBC ####[place] [id number] [facility] Platelets (Bld) [#/Vol] 240 10*3/uL Normal 150-450 [facility] Comment on above: Performed By: #### B CHIEF RADIOLOGY, HS TROP, BMP, CK, DIFF CBC ####[place] [id number] [facility] Plt Comment SEE COMMENT BELOW Normal [facility] Comment on above: Result Comment: NO C LOTS, NO CLUMPS, SHORT DRAW LFM PERFORMED BY: [facility] [address] [place] [address] PATHOLOGIST IMAGE CONSULTANT RADHA BARRON M.D. Performed By: #### B CHIEF RADIOLOGY, HS TROP, BMP, CK, DIFF CBC ####[place] [address] [place] RBC (Bld) [#/Vol] 4.41 10*6/uL Normal 3.90-5.60 [facility] Comment on above: Performed By: #### B CHIEF RADIOLOGY, HS TROP, BMP, CK, DIFF CBC ####[place] [id number] [address] RBC morphology finding Nom (Bld) Normal Normal Normal [facility] Comment on above: Performed By: #### B CHIEF RADIOLOGY, HS TROP, BMP, CK, DIFF CBC ####[place] [address] [address] Segmented neutrophils/100 WBC (Bld) 62 % Normal 50-70 [facility] Comment on above: Performed By: #### B CHIEF RADIOLOGY, HS TROP, BMP, CK, DIFF CBC ####[address] WBC (Bld) [#/Vol] 7.6 10*3/uL Normal 4.1-10.5 [facility] Comment on above: Performed By: #### B CHIEF RADIOLOGY, HS TROP, BMP, CK, DIFF CBC ####[address] WBC (Bld) [#/Vol] 8.4 10*3/uL Normal 4.1-10.5 [facility] Comment on above: Performed By: #### B CHIEF RADIOLOGY, HS TROP, BMP, CK, DIFF CBC ####[address] ECG 12 lead ECGon 01-09-2024 ECG 12 lead ECG [facility] Main [place] [address] [place] [address] Electrocardiograph Report Signed Patient: Jeb Riddle MR#: [id number] : 1950 Acct:[id number] Age/Sex: 73 / M ADM Date: 01/09/24 [...] By Adam Patterson DO 1828 Normal [facility] Eosinophils Auto (Bld) [#/Vo l]Ordered By: Naima Boyd on 01-09-2024 Eosinophils (Bld) [#/Vol] N/A [facility] Eosinophils/100 WBC Auto (Bl d)Ordered By: Naima Boyd on 01-09-2024 Eosinophils/100 WBC (Bld) N/A [facility] Eosinophils/100 WBC Manual c nt (Bld)Ordered By: Naima Boyd on 01-09-2024 Eosinophils/100 WBC (Bld) 4 % 1-3 [facility] Erythrocyte distribution wid th Auto (RBC) [Ratio]Ordered By: Naima Boyd on 01-09-2024 Erythrocyte distribution width (RBC) [Ratio] 14.9 % 12.0-14.8 [facility] Fibrin D-dimer [Presence] in Platelet poor plasma by Latex agglutinationOrdered By: Naima Boyd on 01-09-2024 Fibrin D-dimer LA Ql (PPP) 1905 ng/mL 0-243 [facility] Comment on above: The reference [...] coagulation studies. Please contact the laboratory at [phone] for redraw instructions. Glucose [Mass/volume] in Ser um or PlasmaOrdered By: Naima Boyd on 01-09-2024 Glucose [Mass/Vol] 95 mg/dL 70-100 [facility] Comment on above: ADA recommended refe rence rangeRandom Glucose Reference Range is dependent on time and content of last meal. Glucose of more than 200 mg/dL in a nonstressed, ambulatory subject supports the diagnosis of Diabetes Mellitus. Hematocrit Auto (Bld) [Volum e fraction]Ordered By: Naima Boyd on 01-09-2024 Hematocrit (Bld) [Volume fraction] 41.9 % 38.8-50.0 [facility] Hemoglobin [Mass/volume] in BloodOrdered By: Naima Boyd on 01-09-2024 Hemoglobin (Bld) [Mass/Vol] 14.1 g/dL 13.0-17.0 [facility] INR in Platelet poor plasma by Coagulation assayOrdered By: Naima Boyd on 01-09-2024 INR Coag (PPP) [Relative time] 1.0 {INR} [facility] Comment on above: INR Therapeutic [...] valves: 3 - 4.5 Leukocytes [#/volume] correc vaa for nucleated erythrocytes in Blood by Automated counOrdered By: Naima Boyd on 01-09-2024 WBC corrected for nucl RBC Auto (Bld) [#/Vol] 7.6 10*3/uL 4.1-10.5 [facility] Lymphocytes Auto (Bld) [#/Vo l]Ordered By: Naima Boyd on 01-09-2024 Lymphocytes (Bld) [#/Vol] N/A [facility] Lymphocytes/100 WBC Auto (Bl d)Ordered By: Naima Bullimore on 01-09-2024 Lymphocytes/100 WBC (Bld) N/A [facility] Lymphocytes/100 WBC Manual c nt (Bld)Ordered By: Naima Bullimore on 01-09-2024 Lymphocytes/100 WBC (Bld) 27 % 18-42 [facility] MCH Auto (RBC) [Entitic mass ]Ordered By: Naima Bullimore on 01-09-2024 MCH (RBC) [Entitic mass] 32.0 pg 27.5-35.2 [facility] MCHC Auto (RBC) [Mass/Vol]Or dered By: Naima Bullimore on 01-09-2024 MCHC (RBC) [Mass/Vol] 33.6 g/dL 32.5-35.6 [facility] MCV Auto (RBC) [Entitic vol] Ordered By: Naima Bullimore on 01-09-2024 MCV (RBC) [Entitic vol] 95.1 fL 83.5-101 [facility] Monocyte distribution width [Entitic volume] in Blood by AutomatedOrdered By: Naima Godwinimjeremias on 01-09-2024 Monocyte distribution width Auto (Bld) [Entitic vol] 25.58 % 0.00-20.00 [facility] Comment on above: For adults in ED, MD W > 20.0 may be associated with a higher risk of sepsis during the first 12 hrs of hospital admission Monocytes Auto (Bld) [#/Vol] Ordered By: Naima Bullimore on 01-09-2024 Monocytes (Bld) [#/Vol] N/A [facility] Monocytes/100 WBC Auto (Bld) Ordered By: Naima Bullimore on 01-09-2024 Monocytes/100 WBC (Bld) N/A [facility] Monocytes/100 WBC Manual cnt (Bld)Ordered By: Naima Bullimore on 01-09-2024 Monocytes/100 WBC (Bld) 7 % 2-11 [facility] Natriuretic peptide B [Mass/ Vol]Ordered By: Naima Bullimore on 01-09-2024 Natriuretic peptide B (Bld) [Mass/Vol] 172.0 pg/mL 5-100 [facility] Neutrophils Auto (Bld) [#/Vo l]Ordered By: Naima Bullimore on 01-09-2024 Neutrophils (Bld) [#/Vol] N/A [facility] Neutrophils/100 WBC Auto (Bl d)Ordered By: Naima Bullimore on 01-09-2024 Neutrophils/100 WBC (Bld) N/A [facility] No Panel InformationOrdered By: Naima Rutherfordore on 01-09-2024 Estimated GFR (CKD-EPI) > 60.0 mL/Min [facility] Creatinine Clearance (Chem 64.96 [facility] Platelet Comment See comment below F [facility] Comment on above: NO CLOTS, NO CLUMPS, SHORT DRAW LFM Nucleated RBC/100 WBC Manual cnt (Bld) [Ratio]Ordered By: Naima Rutherfordore on 01-09-2024 Nucleated RBC/100 WBC (Bld) [Ratio] 0 /100{WBC} 0-0 [facility] Nucleated erythrocytes [Pres ence] in Blood by Automated countOrdered By: Naima Boyd on 01-09-2024 Nucleated RBC Auto Ql (Bld) N/A [facility] Platelet adequacy [Presence] in Blood by Light microscopyOrdered By: Naima Boyd on 01-09-2024 Platelets LM Ql (Bld) Normal Normal Fir [facility] Platelet mean volume Auto (B ld) [Entitic vol]Ordered By: Naima Godwinimore on 01-09-2024 Platelet mean volume (Bld) [Entitic vol] 8.6 fL 6.6-10.1 [facility] Platelet morphology finding [Identifier] in BloodOrdered By: Naima Rutherfordore on 01-09-2024 Platelet morphology finding Nom (Bld) Normal Normal [facility] Platelets Auto (Bld) [#/Vol] Ordered By: Naima Godwinimore on 01-09-2024 Platelets (Bld) [#/Vol] 240 10*3/uL 150-450 [facility] Potassium [Moles/volume] in Serum or PlasmaOrdered By: Naima Rutherfordore on 01-09-2024 Potassium [Moles/Vol] 3.9 mmol/L 3.5-5.1 [facility] Prothrombin time (PT)Ordered By: Naima Boyd on 01-09-2024 PT Coag (PPP) [Time] 11.9 s 9.0-12.9 [facility] Comment on above: A hematocrit value g reater than 55% may lead to inaccurate results in coagulation testing. Patients having hematocrit values >55% require a special collection tube for coagulation studies. Please contact the laboratory at [phone] for redraw instructions. RBC Auto (Bld) [#/Vol]Ordere d By: Naima Boyd on 01-09-2024 RBC (Bld) [#/Vol] 4.41 10*6/uL 3.90-5.60 [facility] RBC morphologyOrdered By: Sabine Boyd on 01-09-2024 RBC morphology finding Nom (Bld) Normal Normal [facility] Redraw Potassiumon Potassium [Moles/Vol] 3.9 mmol/L Normal 3.5-5.1 [facility] Comment on above: Result Comment: PERF ORMED BY: [facility] [address] [place] [address] PATHOLOGIST IMAGE CONSULTANT RADHA BARRON M.D. Performed By: #### R EDPIERRE K ####[facility] [place] [id number] [facility] Segmented neutrophils/100 WB C Manual cnt (Bld)Ordered By: Naima Boyd on 01-09-2024 Segmented neutrophils/100 WBC (Bld) 62 % 50-70 [facility] Serum or plasma anion gap de terminationOrdered By: Naima Boyd on 01-09-2024 Anion gap [Moles/Vol] TNP [facility] Comment on above: Test not performed Sodium [Moles/volume] in Ser um or PlasmaOrdered By: Naima Boyd on 01-09-2024 Sodium [Moles/Vol] 142 mmol/L 136-145 [facility] Troponin I High Sensitivityo n 01-09-2024 Troponin I High Sensitivity 13.1 pg/mL Normal 0.0-20.0 [facility] Comment on above: Result Comment: PERF ORMED BY: [place] [address] PATHOLOGIST IMAGE CONSULTANT RADHA BARRON M.D. Performed By: #### H S TROP #### [facility] [address] [place] [address] [facility] Troponin I High Sensitivity 12.5 pg/mL Normal 0.0-20.0 [facility] Comment on above: Result Comment: PERF ORMED BY: [place] [address] PATHOLOGIST IMAGE CONSULTANT RADHA BARRON M.D. Performed By: #### B CHIEF RADIOLOGY, HS TROP, BMP, CK, DIFF CBC ####[facility] [address] [place] [address] [facility] Troponin I.cardiac [Mass/vol ume] in Serum or Plasma by Detection limit <= 0.01 ng/Ordered By: Naima Boyd on 01-09-2024 Troponin I.cardiac DL <= 0.01 ng/mL [Mass/Vol] 13.1 pg/mL 0.0-20.0 [facility] Urea nitrogen [Mass/volume] in Serum or PlasmaOrdered By: Naima Boyd on 01-09-2024 Urea nitrogen [Mass/Vol] 20 mg/dL 7-25 [facility] WBC Auto (Bld) [#/Vol]Ordere d By: Naima Boyd on 01-09-2024 WBC (Bld) [#/Vol] 8.4 10*3/uL 4.1-10.5 [facility] XR chest 2V*on 01-09-2024 XR chest 2V* [facility] Main [place] [address] [place], [place] [id number] XRay Report Signed Patient: Jeb Riddle MR#: [id number] : 1950 Acct:[id number] Age/Sex: 73 / M ADM Date: 01/09/24 [...] Jeb Collins M.D.01/09/2024 4:11 PM Dictation Location: [place] [address] Transcribed By: KAROLINA 01/09/24 1611 Dictated By: Jeb Collins II, MD 01/09/24 1610 Signed By: 01/09/24 1611 Normal [facility] ECG 12 lead ECGon 12-18-2023 ECG 12 lead ECG [facility] [place] [address] Electrocardiograph Report Signed Patient: Jeb Riddle MR#: [id number] : 1950 Acct:[id number] Age/Sex: 73 / M ADM Date: 12/18/23 Loc: ER Room: Type: [facility] ER Attending Dr: Ordering Provider: [...] was found Confirmed by RAMIRO CORTEZ DO ([id number]) on 12/18/2023 4:44:01 PM Referred By: Electronically Signed By:RAMIRO CORTEZ DO Transcribed By: MUS Signed By Ramiro Cortez DO 12/17 1644 Normal [facility] Office Visiton 12-09-2023 Follow-up visit [id number] Jeb Riddle 1950 M Date Provider Department Center 12/09/2023 [facility]ESSICA JAMISON [facility] Family History Problem Relation Age of Onset Diabetes Mother Coronary artery disease Mother Heart attack Father Diabetes Father Coronary artery disease Father Family Status - Relation Status Age at Mother Father Level of Service:97085 [place] OFFICE/OUTPATIENT ESTABLISHED MOD MDM 30 MIN Reason for Visit and Comments: Follow-up [526380] - 6 months Normal [facility] Activated partial thrombopla stin time (aPTT) in platelet poor plasma by coagulation aOrdered By: Ramiro Cortez on 03-03-2023 aPTT Coag (PPP) [Time] 29.7 s 25.1-36.5 [facility] B-Type Natriuretic Peptideon 03-03-2023 Natriuretic peptide B (Bld) [Mass/Vol] 52.0 pg/mL Normal 5-100 [facility] Comment on above: Result Comment: PERF ORMED BY: [facility] [address] [place] [address] PATHOLOGIST IMAGE CONSULTANT RADHA BARRON M.D. Performed By: #### C BC, CK, PT, PTT, BMP, HS TROP, BNP ####[place] [address] [place] [id number] [facility] Basic Metabolic Panelon 02-13 Anion gap [Moles/Vol] 10.6 mmol/L Normal 6.0-15.0 [facility] [facility] Comment on above: Performed By: #### C BC, CK, PT, PTT, BMP, HS TROP, BNP ####[address] [place] [place] [address] [facility] Calcium [Mass/Vol] 8.6 mg/dL Normal 8.6-10.3 [facility] Comment on above: Performed By: #### C BC, CK, PT, PTT, BMP, HS TROP, BNP ####[address] [address] [place] [id number] [facility] Chloride [Moles/Vol] 108 mmol/L High 98-107 [facility] Comment on above: Performed By: #### C BC, CK, PT, PTT, BMP, HS TROP, BNP ####[address] CO2 [Moles/Vol] 24.6 mmol/L Normal 21.0-31.0 [facility] Comment on above: Performed By: #### C BC, CK, PT, PTT, BMP, HS TROP, BNP ####[address] Creatinine [Mass/Vol] 1.19 mg/dL Normal 0.70-1.30 [facility] Comment on above: Performed By: #### C BC, CK, PT, PTT, BMP, HS TROP, BNP ####[address] Creatinine Clr Calc Pharmacy 55.29 Normal [facility] Comment on above: Result Comment: PERF ORMED BY: [place] [address] PATHOLOGIST IMAGE CONSULTANT RADHA BARRON M.D. Performed By: #### C BC, CK, PT, PTT, BMP, HS TROP, BNP ####[address] GFR/1.73 sq M.predicted MDRD (S/P/Bld) [Vol rate/Area] mL/min/{1.73_m2} Normal [facility] Comment on above: Performed By: #### C BC, CK, PT, PTT, BMP, HS TROP, BNP ####[address] Glucose [Mass/Vol] 93 mg/dL Normal 70-100 [facility] Comment on above: Result Comment: [place] Glucose Reference Range is dependent on time and content of last meal. Glucose of more than 200 mg/dL in a nonstressed, ambulatory subject supports the diagnosis of Diabetes Mellitus. ADA recommended reference range Performed By: #### C BC, CK, PT, PTT, BMP, HS TROP, BNP ####[place] [address] [place] Potassium [Moles/Vol] 4.2 mmol/L Normal 3.5-5.1 [facility] Comment on above: Performed By: #### C BC, CK, PT, PTT, BMP, HS TROP, BNP ####[facility] Sodium [Moles/Vol] 139 mmol/L Normal 136-145 [facility] Comment on above: Performed By: #### C BC, CK, PT, PTT, BMP, HS TROP, BNP ####[place] [address] Urea nitrogen [Mass/Vol] 17 mg/dL Normal 7-25 [facility] Comment on above: Performed By: #### C BC, CK, PT, PTT, BMP, HS TROP, BNP ####[place] [address] Basophils Auto (Bld) [#/Vol] Ordered By: Ramiro Cortez on 03-03-2023 Basophils (Bld) [#/Vol] 0.0 10*3/uL 0.0-0.2 [facility] Basophils/100 WBC Auto (Bld) Ordered By: Ramiro Cortez on 03-03-2023 Basophils/100 WBC (Bld) 0.4 % . [facility] Calcium [Mass/volume] in Ser um or PlasmaOrdered By: Ramiro Cortez on 03-03-2023 Calcium [Mass/Vol] 8.6 mg/dL 8.6-10.3 [facility] Carbon dioxide, total [Moles /volume] in Serum or PlasmaOrdered By: Ramiro Cortez on 03-03-2023 CO2 [Moles/Vol] 24.6 mmol/L 21.0-31.0 [facility] Chloride [Moles/volume] in S pooja or PlasmaOrdered By: Ramiro Cortez on 03-03-2023 Chloride [Moles/Vol] 108 mmol/L 98-107 [facility] Complete Blood Count Auto Di ffon 03-03-2023 Basophils (Bld) [#/Vol] 0.0 10*3/uL Normal 0.0-0.2 [facility] Comment on above: Result Comment: PERF ORMED BY: [place] [address] PATHOLOGIST IMAGE CONSULTANT RADHA BARRON M.D. Performed By: #### C BC, CK, PT, PTT, BMP, HS TROP, BNP #### [address] Basophils/100 WBC (Bld) 0.4 % Normal . [facility] Comment on above: Performed By: #### C BC, CK, PT, PTT, BMP, HS TROP, BNP #### [address] Eosinophils (Bld) [#/Vol] 0.2 10*3/uL Normal 0.0-0.45 [facility] Comment on above: Performed By: #### C BC, CK, PT, PTT, BMP, HS TROP, BNP #### [address] Eosinophils/100 WBC (Bld) 2.4 % Normal . [facility] Comment on above: Performed By: #### C BC, CK, PT, PTT, BMP, HS TROP, BNP #### [address] Erythrocyte distribution width (RBC) [Ratio] 13.0 % Normal 12.0-14.8 [facility] Comment on above: Performed By: #### C BC, CK, PT, PTT, BMP, HS TROP, BNP #### [address] Hematocrit (Bld) [Volume fraction] 38.3 % Low 38.8-50.0 [facility] Comment on above: Performed By: #### C BC, CK, PT, PTT, BMP, HS TROP, BNP #### [address] Hemoglobin (Bld) [Mass/Vol] 12.9 g/dL Low 13.0-17.0 [facility] Comment on above: Performed By: #### C BC, CK, PT, PTT, BMP, HS TROP, BNP #### [address] Lymphocytes (Bld) [#/Vol] 2.6 10*3/uL Normal 1.00-4.8 [facility] Comment on above: Performed By: #### C BC, CK, PT, PTT, BMP, HS TROP, BNP #### [address] Lymphocytes/100 WBC (Bld) 28.3 % Normal . [facility] Comment on above: Performed By: #### C BC, CK, PT, PTT, BMP, HS TROP, BNP #### [address] MCH (RBC) [Entitic mass] 30.8 pg Normal 27.5-35.2 [facility] Comment on above: Performed By: #### C BC, CK, PT, PTT, BMP, HS TROP, BNP #### [address] MCV (RBC) [Entitic vol] 91.9 fL Normal 83.5-101 [facility] Comment on above: Performed By: #### C BC, CK, PT, PTT, BMP, HS TROP, BNP #### [address] Mean Corpuscular HGB Conc 33.6 g/dL Normal 32.5-35.6 [facility] Comment on above: Performed By: #### C BC, CK, PT, PTT, BMP, HS TROP, BNP #### [address] Monocytes (Bld) [#/Vol] 0.6 10*3/uL Normal 0.0-0.8 [facility] Comment on above: Performed By: #### C BC, CK, PT, PTT, BMP, HS TROP, BNP #### [address] Monocytes/100 WBC (Bld) 24.67 % High 0.00-20.00 [facility] Comment on above: Result Comment: For adults in ED, MDW > 20.0 may be associated with a higher risk of sepsis during the first 12 hrs of hospital admission Performed By: #### C BC, CK, PT, PTT, BMP, HS TROP, BNP #### [address] Monocytes/100 WBC (Bld) 6.5 % Normal . [facility] Comment on above: Performed By: #### C BC, CK, PT, PTT, BMP, HS TROP, BNP #### [address] Neutrophils (Bld) [#/Vol] 5.7 10*3/uL Normal 1.8-7.7 [facility] Comment on above: Performed By: #### C BC, CK, PT, PTT, BMP, HS TROP, BNP #### [address] Neutrophils/100 WBC (Bld) 62.4 % Normal . [facility] Comment on above: Performed By: #### C BC, CK, PT, PTT, BMP, HS TROP, BNP #### [address] NRBC% 0.1 /100{WBC} Normal 0-0.5 [facility] Comment on above: Performed By: #### C BC, CK, PT, PTT, BMP, HS TROP, BNP #### [address] Platelet mean volume (Bld) [Entitic vol] 8.2 fL Normal 6.6-10.1 [facility] Comment on above: Performed By: #### C BC, CK, PT, PTT, BMP, HS TROP, BNP #### [address] Platelets (Bld) [#/Vol] 234 10*3/uL Normal 150-450 [facility] Comment on above: Performed By: #### C BC, CK, PT, PTT, BMP, HS TROP, BNP #### [place] [address] [place] RBC (Bld) [#/Vol] 4.17 10*6/uL Normal 3.90-5.60 [facility] Comment on above: Performed By: #### C BC, CK, PT, PTT, BMP, HS TROP, BNP #### [facility] [address] WBC (Bld) [#/Vol] 9.2 10*3/uL Normal 4.1-10.5 [facility] Comment on above: Performed By: #### C BC, CK, PT, PTT, BMP, HS TROP, BNP #### [facility] [address] [place] [id number] [facility] Creatine Kinaseon 03-03-2023 CK [Catalytic activity/Vol] 125 U/L Normal 30- [facility] Comment on above: Performed By: #### C BC, CK, PT, PTT, BMP, HS TROP, BNP ####[facility] [place] [address] Creatine kinase [Enzymatic a ctivity/volume] in Serum or PlasmaOrdered By: Ramiro Cortez on 03-03-2023 CK [Catalytic activity/Vol] 125 U/L 30- [facility] Creatinine [Mass/volume] in Serum or PlasmaOrdered By: Ramiro Cortez on 03-03-2023 Creatinine [Mass/Vol] 1.19 mg/dL 0.70-1.30 [facility] ECG 12 lead ECGon 03-03-2023 ECG 12 lead ECG [facility] Main [place] [address] [place] [address] Electrocardiograph Report Signed Patient: Jeb Riddle MR#: [id number] : 1950 Acct:[id number] Age/Sex: 72 / M ADM Date: 03/03/23 Loc: ER Room: Type: [facility] ER Attending Dr: Ordering Provider: [...] ECGs available Confirmed by RAMIRO CORTEZ DO ([id number]) on 03/03/2023 8:14:27 PM Referred By: Electronically Signed By:RAMIRO CORTEZ DO Transcribed By: MUS Signed By Ramiro Cortez DO 03/03 Normal [facility] Eosinophils Auto (Bld) [#/Vo l]Ordered By: Ramiro Cortez on 03-03-2023 Eosinophils (Bld) [#/Vol] 0.2 10*3/uL 0.0-0.45 [facility] Eosinophils/100 WBC Auto (Bl d)Ordered By: Ramiro Cortez on 03-03-2023 Eosinophils/100 WBC (Bld) 2.4 % . [facility] Erythrocyte distribution wid th Auto (RBC) [Ratio]Ordered By: Ramiro Cortez on 03-03-2023 Erythrocyte distribution width (RBC) [Ratio] 13.0 % 12.0-14.8 [facility] Glucose [Mass/volume] in Ser um or PlasmaOrdered By: Ramiro Cortez on 03-03-2023 Glucose [Mass/Vol] 93 mg/dL 70-100 [facility] Comment on above: ADA recommended refe rence rangeRandom Glucose Reference Range is dependent on time and content of last meal. Glucose of more than 200 mg/dL in a nonstressed, ambulatory subject supports the diagnosis of Diabetes Mellitus. Hematocrit Auto (Bld) [Volum e fraction]Ordered By: Ramiro Cortez on 03-03-2023 Hematocrit (Bld) [Volume fraction] 38.3 % 38.8-50.0 [facility] Hemoglobin [Mass/volume] in BloodOrdered By: Ramiro Cortez on 03-03-2023 Hemoglobin (Bld) [Mass/Vol] 12.9 g/dL 13.0-17.0 [facility] Laboratory - CoagulationOrde red By: Ramiro Cortez on 03-03-2023 PT Coag (PPP) [Time] 12.3 s 9.0-12.9 [facility] Leukocytes [#/volume] correc ava for nucleated erythrocytes in Blood by Automated counOrdered By: Ramiro Cortez on 03-03-2023 WBC corrected for nucl RBC Auto (Bld) [#/Vol] 9.2 10*3/uL 4.1-10.5 [facility] Lymphocytes Auto (Bld) [#/Vo l]Ordered By: Ramiro Cortez on 03-03-2023 Lymphocytes (Bld) [#/Vol] 2.6 10*3/uL 1.00-4.8 [facility] Lymphocytes/100 WBC Auto (Bl d)Ordered By: Ramiro Cortez on 03-03-2023 Lymphocytes/100 WBC (Bld) 28.3 % . [facility] MCH Auto (RBC) [Entitic mass ]Ordered By: Ramiro Cortez on 03-03-2023 MCH (RBC) [Entitic mass] 30.8 pg 27.5-35.2 [facility] MCHC Auto (RBC) [Mass/Vol]Or dered By: Ramiro Cortez on 03-03-2023 MCHC (RBC) [Mass/Vol] 33.6 g/dL 32.5-35.6 [facility] MCV Auto (RBC) [Entitic vol] Ordered By: Ramiro Cortez on 03-03-2023 MCV (RBC) [Entitic vol] 91.9 fL 83.5-101 [facility] Monocyte distribution width [Entitic volume] in Blood by AutomatedOrdered By: Ramiro Cortez on 03-03-2023 Monocyte distribution width Auto (Bld) [Entitic vol] 24.67 % 0.00-20.00 [facility] Comment on above: For adults in ED, MD W > 20.0 may be associated with a higher risk of sepsis during the first 12 hrs of hospital admission Monocytes Auto (Bld) [#/Vol] Ordered By: Ramiro Cortez on 03-03-2023 Monocytes (Bld) [#/Vol] 0.6 10*3/uL 0.0-0.8 [facility] Monocytes/100 WBC Auto (Bld) Ordered By: Ramiro Cortez on 03-03-2023 Monocytes/100 WBC (Bld) 6.5 % . [facility] Natriuretic peptide B [Mass/ Vol]Ordered By: Ramiro Cortez on 03-03-2023 Natriuretic peptide B (Bld) [Mass/Vol] 52.0 pg/mL 5-100 [facility] Neutrophils Auto (Bld) [#/Vo l]Ordered By: Ramiro Cortez on 03-03-2023 Neutrophils (Bld) [#/Vol] 5.7 10*3/uL 1.8-7.7 [facility] Neutrophils/100 WBC Auto (Bl d)Ordered By: Ramiro Cortez on 03-03-2023 Neutrophils/100 WBC (Bld) 62.4 % . [facility] No Panel InformationOrdered By: Ramiro Cortez on 03-03-2023 Estimated GFR (CKD-EPI) > 60.0 mL/Min [facility] Creatinine Clearance (Chem 55.29 [facility] Nucleated erythrocytes [Pres ence] in Blood by Automated countOrdered By: Ramiro Cortez on 03-03-2023 Nucleated RBC Auto Ql (Bld) 0.1 /100{WBC} 0-0.5 [facility] Partial Thromboplastin Timeo n 03-03-2023 aPTT Coag (Bld) [Time] 29.7 s Normal 25.1-36.5 Th e [facility] Comment on above: Result Comment: PERF ORMED BY: [place] [address] PATHOLOGIST IMAGE CONSULTANT RADHA BARRON M.D. Performed By: #### C BC, CK, PT, PTT, BMP, HS TROP, BNP #### [facility] [address] [place] [address] Platelet mean volume Auto (B ld) [Entitic vol]Ordered By: Ramiro Cortez on 03-03-2023 Platelet mean volume (Bld) [Entitic vol] 8.2 fL 6.6-10.1 [facility] Platelet poor plasma interna tional normalized ratio (INR) by coagulation assay (relatOrdered By: Ramiro Cortez on 03-03-2023 INR Coag (PPP) [Relative time] 1.1 {INR} [facility] Comment on above: INR Therapeutic [...] (Bld) [#/Vol] 234 10*3/uL 150-450 [facility] Potassium [Moles/volume] in Serum or PlasmaOrdered By: Ramiro Cortez on 03-03-2023 Potassium [Moles/Vol] 4.2 mmol/L 3.5-5.1 [facility] Prothrombin Time INRon 03-03 INR Coag (PPP) [Relative time] 1.1 {INR} Normal [facility] Comment on above: Result [...] PT, PTT, BMP, HS TROP, BNP #### [facility] [address] PT Coag (PPP) [Time] 12.3 s Normal 9.0-12.9 [facility] Comment on above: Performed By: #### C BC, CK, PT, PTT, BMP, HS TROP, BNP #### [facility] [address] RBC Auto (Bld) [#/Vol]Ordere d By: Ramiro Cortez on 03-03-2023 RBC (Bld) [#/Vol] 4.17 10*6/uL 3.90-5.60 [facility] Serum or plasma anion gap de terminationOrdered By: Ramiro Cortez on 03-03-2023 Anion gap [Moles/Vol] 10.6 mmol/L 6.0-15.0 [facility] Sodium [Moles/volume] in Ser um or PlasmaOrdered By: Ramiro Cortez on 03-03-2023 Sodium [Moles/Vol] 139 mmol/L 136-145 [facility] Troponin I High Sensitivityo n 03-03-2023 Troponin I High Sensitivity 7.6 pg/mL Normal 0.0-20.0 [facility] Comment on above: Result Comment: PERF ORMED BY: [place] [address] PATHOLOGIST IMAGE CONSULTANT RADHA BARRON M.D. Performed By: #### C BC, CK, PT, PTT, BMP, HS TROP, BNP ####[facility] Troponin I.cardiac [Mass/vol ume] in Serum or Plasma by Detection limit <= 0.01 ng/Ordered By: Ramiro Cortez on 03-03-2023 Troponin I.cardiac DL <= 0.01 ng/mL [Mass/Vol] 7.6 pg/mL 0.0-20.0 [facility] Urea nitrogen [Mass/volume] in Serum or PlasmaOrdered By: Ramiro Cortez on 03-03-2023 Urea nitrogen [Mass/Vol] 17 mg/dL 7-25 [facility] WBC Auto (Bld) [#/Vol]Ordere d By: Ramiro Cortez on 03-03-2023 WBC (Bld) [#/Vol] 9.2 10*3/uL 4.1-10.5 [facility] XR chest 2V*on 03-03-2023 XR chest 2V* [facility] Main [place] [address] [place] [address] XRay Report Signed Patient: Jeb Riddle MR#: [id number] : 1950 Acct:[id number] Age/Sex: 72 / M ADM Date: 03/03/23 [...] Ivonne Zavala M.D.03/03/2023 12:46 PM Dictation Location: [place] [address] Transcribed By: KAROLINA 03/03/23 1246 Dictated By: Ivonne Zavala MD 03/03/23 1245 Signed By: 03/03/23 1246 Normal [facility] CBC AUTO DIFFon 01-11-2023 BASO # 0.0 103/ul Normal 0.0-0.1 [facility] Comment on above: Performed By: #### C BC #### [facility] [address] [address] [address] Andrea Garcia Basophils/100 WBC (Bld) 0.0 % Critically low 0.2-2.0 [facility] Comment on above: Performed By: #### C BC #### [facility] [address] [address] [address] Andrea Garcia EO # 0.0 103/ul Normal 0.0-0.7 [facility] Comment on above: Performed By: #### C BC #### [facility] [address] [address] [address] Andrea Garcia Eosinophils/100 WBC (Bld) 0.0 % Critically low 0.9-7.0 [facility] Comment on above: Performed By: #### C BC #### [facility] [address] [address] [address] Andrea Garcia Erythrocyte distribution width (RBC) [Ratio] 12.8 % Normal 11.0-15.0 [facility] Comment on above: Performed By: #### C BC #### [facility] [address] [address] [address] Andrea Garcia Hematocrit (Bld) [Volume fraction] 36.2 % Critically low 42.0-54.0 [facility] Comment on above: Performed By: #### C BC #### [facility] [address] [address] [address] Andrea Garcia Hemoglobin (Bld) [Mass/Vol] 12.8 g/dL Critically low 14.0-18.0 [facility] Comment on above: Performed By: #### C BC #### [facility] [address] [address] [address] Andrea Garcia IG # 0.03 10e3/ul Normal 0.00-0.03 [facility] Comment on above: Performed By: #### C BC #### [facility] [address] [place] [address] Dr. Andrea Garcia IG % 0.4 % Normal 0.0-0.5 [facility] Comment on above: Performed By: #### C BC #### [facility] [address] [place] [address] Dr. Andrea Garcia LYMPH # 1.1 103/ul Critically low 1.2-3.8 [facility] Comment on above: Performed By: #### C BC #### [facility] [address] [place] [address] Dr. Andrea Garcia Lymphocytes/100 WBC (Bld) 15.3 % Critically low 20.5-60.0 [facility] Comment on above: Performed By: #### C BC #### [facility] [address] [place] [address] Dr. Andrea Garcia MANUAL DIFF REQ NO Normal [facility] Comment on above: Performed By: #### C BC #### [facility] [address] [place] [address] Dr. Andrea Garcia MCH (RBC) [Entitic mass] 31.3 pg Normal 25.9-34.0 [facility] Comment on above: Performed By: #### C BC #### [facility] [address] [place] [address] Dr. Andrea Garcia MCHC (RBC) [Mass/Vol] 35.4 g/dL Critically high 29.9-35.2 [facility] Comment on above: Performed By: #### C BC #### [facility] [address] [address] [address] Andrea Garcia MCV (RBC) [Entitic vol] 88.5 fL Normal 80.0-94.0 [facility] Comment on above: Performed By: #### C BC #### [facility] [address] [address] [address] Andrea Garcia MONO # 0.1 103/ul Critically low 0.3-0.8 [facility] Comment on above: Performed By: #### C BC #### [facility] [address] [place] [address] Dr. Andrea Garcia Monocytes/100 WBC (Bld) 0.7 % Critically low 1.7-12.0 [facility] Comment on above: Performed By: #### C BC #### [facility] [address] [place] [address] Dr. Andrea Garcia NEUT # 6.0 103/ul Normal 1.4-6.5 [facility] Comment on above: Performed By: #### C BC #### [facility] [address] [place] [address] Dr. Andrea Garcia Neutrophils/100 WBC (Bld) 83.6 % Critically high 43.0-75.0 [facility] Comment on above: Performed By: #### C BC #### [facility] [address] [place] [address] Dr. Andrea Garcia Platelet mean volume (Bld) [Entitic vol] 10.1 fL Normal 9.5-13.5 [facility] Comment on above: Performed By: #### C BC #### [facility] [address] [place] [address] Dr. Andrea Garcia PLT 216 103/ul Normal 150-450 [facility] Comment on above: Performed By: #### C BC #### [facility] [address] [place] [address] Dr. Andrea Garcia RBC 4.09 106/ul Critically low 4.70-6.10 [facility] Comment on above: Performed By: #### C BC #### [facility] [address] [place] [address] Dr. Andrea Garcia WBC 7.2 103/ul Normal 4.0-11.0 [facility] Comment on above: Performed By: #### C BC #### [facility] [address] [place] [address] Dr. Andrea Garcia PROF 14(COMP METB)on 023 Albumin [Mass/Vol] 2.8 g/dL Critically low 3.4-5.0 [facility] Comment on above: Performed By: #### C MP #### [facility] [address] [place] [address] Dr. Andrea Garcia Albumin/Globulin [Mass ratio] 0.8 {ratio} Normal [facility] Comment on above: Performed By: #### C MP #### [facility] [address] [place] [address] Dr. Andrea Garcia ALP [Catalytic activity/Vol] 64 U/L Normal 46-116 [facility] Comment on above: Performed By: #### C MP #### [facility] [address] [place] [address] Dr. Andrea Garcia ALT [Catalytic activity/Vol] 27 U/L Normal 16-63 [facility] Comment on above: Performed By: #### C MP #### [facility] [address] [place] [address] Dr. Andrea Garcia Anion gap [Moles/Vol] 12.9 mmol/L Normal [facility] Comment on above: Performed By: #### C MP #### [facility] [address] [place] [address] Dr. Andrea Garcia AST [Catalytic activity/Vol] 16 U/L Normal 15-37 [facility] Comment on above: Performed By: #### C MP #### [facility] [address] [place] [address] Dr. Andrea Garcia Bilirubin [Mass/Vol] 0.4 mg/dL Normal 0.2-1.0 [facility] Comment on above: Performed By: #### C MP #### [facility] [address] [place] [address] Dr. Andrea Garcia Calcium [Mass/Vol] 8.2 mg/dL Critically low 8.5-10.1 [facility] Comment on above: Performed By: #### C MP #### [facility] [address] [place] [address] Dr. Andrea Garica Chloride [Moles/Vol] 107 mmol/L Normal 98-107 [facility] Comment on above: Performed By: #### C MP #### [facility] [address] [place] [address] Dr. Andrea Garcia CO2 [Moles/Vol] 24.2 mmol/L Normal 21.0-32.0 [facility] Comment on above: Performed By: #### C MP #### [facility] [address] [place] [address] Dr. Andrea Garcia Creatinine [Mass/Vol] 1.07 mg/dL Normal 0.70-1.30 [facility] Comment on above: Performed By: #### C MP #### [facility] [address] [place] [address] Dr. Andrea Garcia EGFR-AF [place] >60 Normal >=60 [facility] Comment on above: Performed By: #### C MP #### [facility] [address] [place] [address] Dr. Andrea Garcia EGFR-NON AF [place] >60 Normal >=60 [facility] Comment on above: Performed By: #### C MP #### [facility] [address] [place] [address] Dr. Andrea Garcia Globulin (S) [Mass/Vol] 3.5 g/dL Normal [facility] Comment on above: Performed By: #### C MP #### [facility] [address] [place] [address] Dr. Andrea Garcia Glucose [Mass/Vol] 164 mg/dL Critically high 74-106 [facility] Comment on above: Performed By: #### C MP #### [facility] [address] [place] [address] Dr. Andrea Garcia Potassium [Moles/Vol] 4.1 mmol/L Normal 3.5-5.1 [facility] Comment on above: Performed By: #### C MP #### [facility] [address] [address] [address] Andrea Garcia Protein [Mass/Vol] 6.3 g/dL Critically low 6.4-8.2 [facility] Comment on above: Performed By: #### C MP #### [facility] [address] [address] [address] Andrea Garcia Sodium [Moles/Vol] 140 mmol/L Normal 136-145 [facility] Comment on above: Performed By: #### C MP #### [facility] [address] [address] [address] Andrea Garcia Urea nitrogen [Mass/Vol] 16.0 mg/dL Normal 7.0-18.0 [facility] Comment on above: Performed By: #### C MP #### [facility] [address] [place] [address] Dr. Andrea Garcia Urea nitrogen/Creatinine [Mass ratio] 15.0 mg/mg Normal [facility] Comment on above: Performed By: #### C MP #### [facility] [address] [address] [address] Andrea Garcia XR KUB 1 VIEWon [...] ROBERT DAVENPORT Date: 2023-01-11 06:56 Normal [facility] AMYLASEon 01-10-2023 Amylase [Catalytic activity/Vol] 56 U/L Normal 25-115 [facility] Comment on above: Performed By: #### C MADM, CMP, DAMIEN, LIPA ####[facility] [address] [address]Dr. Andrea Garcia CARDIAC JEB 3-6on 3 CK [Catalytic activity/Vol] 92 U/L Normal 39-308 [facility] Comment on above: Performed By: #### C MREP #### [facility] [address] [address] [address] Andrea Garcia CK.MB [Mass/Vol] 1.66 ng/mL Normal <=3.60 [facility] Comment on above: Performed By: #### C MREP #### [facility] [address] [address] [address] Andrea Garcia HSTROP 12.8 pg/mL Normal 4.0-76.1 [facility] Comment on above: Result Comment: CUT- OFF POINTS HAVE BEEN ESTABLISHED BASED ON THE FOURTH UNIVERSAL DEFINITIONS OF MYOCARDIAL INFARCTION. THE UPPER REFERENCE LIMIT (URL) OF TROPONIN, DEFINED THE 99TH PERCENTILE OF cTnI DISTRIBUTION IN A REFERENCE POPULATION, HAS BEEN CONFIRMED THE DECISION THRESHOLD FOR MT DIAGNOSIS. Performed By: #### C MREP #### [facility] [address] [address] [address] Andrea Garcia CK [Catalytic activity/Vol] 72 U/L Normal 39-308 [facility] Comment on above: Performed By: #### C MREP #### [facility] [address] [place] [address] Dr. Andrea Garcia CK.MB [Mass/Vol] 1.89 ng/mL Normal <=3.60 [facility] Comment on above: Performed By: #### C MREP #### [facility] [address] [address] [address] Andrea Garcia HSTROP 13.5 pg/mL Normal 4.0-76.1 [facility] Comment on above: Result Comment: CUT- OFF POINTS HAVE BEEN ESTABLISHED BASED ON THE FOURTH UNIVERSAL DEFINITIONS OF MYOCARDIAL INFARCTION. THE UPPER REFERENCE LIMIT (URL) OF TROPONIN, DEFINED THE 99TH PERCENTILE OF cTnI DISTRIBUTION IN A REFERENCE POPULATION, HAS BEEN CONFIRMED THE DECISION THRESHOLD FOR MT DIAGNOSIS. Performed By: #### C MREP #### [facility] [address] [place] [address] Dr. Andrea Garcia CARDIAC JEB ADMITon 05-29-2 023 CK [Catalytic activity/Vol] 85 U/L Normal 39-308 [facility] Comment on above: Performed By: #### C MADM, CMP, DAMIEN, LIPA ####[facility] [address] [address]Dr. Andrea Garcia CK.MB [Mass/Vol] 1.80 ng/mL Normal <=3.60 [facility] Comment on above: Performed By: #### C MADM, CMP, DAMIEN, LIPA ####[facility] [address] [address]Dr. Andrea Garcia HSTROP 15.7 pg/mL Normal 4.0-76.1 [facility] Comment on above: Result Comment: CUT- OFF POINTS HAVE BEEN ESTABLISHED BASED ON THE FOURTH UNIVERSAL DEFINITIONS OF MYOCARDIAL INFARCTION. THE UPPER REFERENCE LIMIT (URL) OF TROPONIN, DEFINED THE 99TH PERCENTILE OF cTnI DISTRIBUTION IN A REFERENCE POPULATION, HAS BEEN CONFIRMED THE DECISION THRESHOLD FOR MT DIAGNOSIS. Performed By: #### C MADM, CMP, DAMIEN, LIPA ####[facility] [address] [address]Dr. Andrea Garcia MIQUEL 61 ng/mL Normal 16-96 [facility] Comment on above: Performed By: #### C MADM, CMP, DAMIEN, LIPA ####[facility] [address] [address]Dr. Andrea Garcia CBC AUTO DIFFon 01-10-2023 BASO # 0.0 103/ul Normal 0.0-0.1 [facility] Comment on above: Performed By: #### C BC ####[facility] [address] [address]Dr. Andrea Garcia Basophils/100 WBC (Bld) 0.5 % Normal 0.2-2.0 [facility] Comment on above: Performed By: #### C BC ####[facility] [address] [address]Dr. Andrea Garcia EO # 0.4 103/ul Normal 0.0-0.7 [facility] Comment on above: Performed By: #### C BC ####[facility] [address] [address]Dr. Andrea Garcia Eosinophils/100 WBC (Bld) 5.9 % Normal 0.9-7.0 [facility] Comment on above: Performed By: #### C BC ####[facility] [address] [place], [place] [address]Dr. Andrea Garcia Erythrocyte distribution width (RBC) [Ratio] 13.0 % Normal 11.0-15.0 [facility] Comment on above: Performed By: #### C BC ####[facility] [address] [place], [place] [address]Dr. Andrea Garcia Hematocrit (Bld) [Volume fraction] 40.0 % Critically low 42.0-54.0 [facility] Comment on above: Performed By: #### C BC ####[facility] [address] [place], [place] [address]Dr. Andrea Garcia Hemoglobin (Bld) [Mass/Vol] 13.4 g/dL Critically low 14.0-18.0 [facility] Comment on above: Performed By: #### C BC ####[facility] [address] [place], [place] [address]Dr. Andrea Garcia IG # 0.01 10e3/ul Normal 0.00-0.03 [facility] Comment on above: Performed By: #### C BC ####[facility] [address] [place], [place] [address]Dr. Andrea Garcia IG % 0.2 % Normal 0.0-0.5 [facility] Comment on above: Performed By: #### C BC ####[facility] [address] [place], [place] [address]Dr. Andrea Garcia LYMPH # 2.2 103/ul Normal 1.2-3.8 [facility] Comment on above: Performed By: #### C BC ####[facility] [address] [place], [place] [address]Dr. Andrea Garcia Lymphocytes/100 WBC (Bld) 33.2 % Normal 20.5-60.0 [facility] Comment on above: Performed By: #### C BC ####[facility] [address] [id number]. Andrea Garcia MANUAL DIFF REQ NO Normal [facility] Comment on above: Performed By: #### C BC ####[facility] [address] [id number]. Andrea Garcia MCH (RBC) [Entitic mass] 30.5 pg Normal 25.9-34.0 [facility] Comment on above: Performed By: #### C BC ####[facility] [address] [address]Dr. Andrea Garcia MCHC (RBC) [Mass/Vol] 33.5 g/dL Normal 29.9-35.2 [facility] Comment on above: Performed By: #### C BC ####[facility] [address] [address]Dr. Andrea Garcia MCV (RBC) [Entitic vol] 90.9 fL Normal 80.0-94.0 [facility] Comment on above: Performed By: #### C BC ####[facility] [address] [address]Dr. Andrea Jose MONO # 0.4 103/ul Normal 0.3-0.8 [facility] Comment on above: Performed By: #### C BC ####[facility] [address] [address]Dr. Andrea Jose Monocytes/100 WBC (Bld) 6.0 % Normal 1.7-12.0 [facility] Comment on above: Performed By: #### C BC ####[facility] [address] [address]Dr. Andrea Garcia NEUT # 3.5 103/ul Normal 1.4-6.5 [facility] Comment on above: Performed By: #### C BC ####[facility] [address] [place], [place] [address]Dr. Andrea Jose Neutrophils/100 WBC (Bld) 54.2 % Normal 43.0-75.0 [facility] Comment on above: Performed By: #### C BC ####[facility] [address] [place], [place] [address]De. Andrea Garcia Platelet mean volume (Bld) [Entitic vol] 9.7 fL Normal 9.5-13.5 [facility] Comment on above: Performed By: #### C BC ####[facility] [address] [place], [place] [address]Xe. Andrea Garcia PLT 225 103/ul Normal 150-450 [facility] Comment on above: Performed By: #### C BC ####[facility] [address] [place], [place] [address]Vq. Andrea Garcia RBC 4.40 106/ul Critically low 4.70-6.10 [facility] Comment on above: Performed By: #### C BC ####[facility] [address] [place], [place] [address]Gu. Andrea Garcia WBC 6.5 103/ul Normal 4.0-11.0 [facility] Comment on above: Performed By: #### C BC ####[facility] [address] [place], [place] [address]Lk. Andrea Garcia CT ABD/PELV W CONon 01-11-20 CT ABD/PELV [...] ADITYA OATES Date: 2023-01-10 07:41 Normal [facility] CULTURE BLOODon 01-10-2023 Microscopic examination of blood, culture Culture Observations: NO GROWTH AT 36-48 HOURS. FINAL TO FOLLOW. Normal [facility] Comment on above: Performed By: #### B LDCX2 ####[facility] [address] [address]Dr. Andrea Garcia Microscopic examination of blood, culture Culture Observations: NO GROWTH AT 36-48 HOURS. FINAL TO FOLLOW. [facility] Comment on above: Performed By: #### B LDCX1 ####[facility] [address] [address]Dr. Andrea Garcia ER URINE PROFILEon 3 Bilirubin Ql (U) Negative Normal NEGATIVE [facility] Comment on above: Performed By: #### U MICRO, ERUR #### [facility] [address] [address] [address] Andrea Garcia Clarity (U) CLEAR Normal CLEAR [facility] Comment on above: Performed By: #### U MICRO, ERUR #### [facility] [address] [address] [address] Andrea Garcia Color (U) LT. YELLOW Normal YELLOW [facility] Comment on above: Performed By: #### U MICRO, ERUR #### [facility] [address] [address] [address] Andrea Garcia ERUAHD A micrscopic examina tion will be performed if indicated. Normal [facility] Comment on above: Performed By: #### U MICRO, ERUR #### [facility] [address] [address] [address] Andrea Garcia Glucose Ql (U) Negative Normal NEGATIVE [facility] Comment on above: Performed By: #### U MICRO, ERUR #### [facility] [address] [place] [address] Dr. Andrea Garcia Hemoglobin Ql (U) TRACE-INTACT Abnormal NEGATIVE [facility] Comment on above: Performed By: #### U MICRO, ERUR #### [facility] [address] [place] [address] Dr. Andrea Garcia Ketones Ql (U) Negative Normal NEGATIVE [facility] Comment on above: Performed By: #### U MICRO, ERUR #### [facility] [address] [place] [address] Dr. Andrea Garcia LEUKOCYTES Negative Normal NEGATIVE [facility] Comment on above: Performed By: #### U MICRO, ERUR #### [facility] [address] [place] [address] Dr. Andrea Garcia Nitrite Ql (U) Negative Normal NEGATIVE [facility] Comment on above: Performed By: #### U MICRO, ERUR #### [facility] [address] [place] [address] Dr. Andrea Garcia pH (U) 5.5 [pH] Normal 5-9 [facility] Comment on above: Performed By: #### U MICRO, ERUR #### [facility] [address] [place] [address] Dr. Andrea Garcia SPEC GRAVITY 1.015 Normal 1.005-<=1. 025 [facility] Comment on above: Performed By: #### U MICRO, ERUR #### [facility] [address] [place] [address] Dr. Andrea Garcia UA PROTEIN Negative Normal NEGATIVE/ TRACE [facility] Comment on above: Performed By: #### U MICRO, ERUR #### [facility] [address] [place] [address] Dr. Andrea Garcia UR MICRO IND INDICATED Normal [facility] Comment on above: Performed By: #### U MICRO, ERUR #### [facility] [address] [place] [address] Dr. Andrea Garcia Urobilinogen Qn (U) 0.2 {Temo'U}/dL Normal 0.2 - 1. 0 [facility] Comment on above: Performed By: #### U MICRO, ERUR #### [facility] [address] [address] [address] Andrea Garcia LACTATE/LACTIC ACIDon 2022 Lactate [Moles/Vol] 0.8 mmol/L Normal 0.4-2.0 [facility] Comment on above: Performed By: #### L ACT #### [facility] [address] [address] [address] Andrea Garcia Lactate [Moles/Vol] 0.9 mmol/L Normal 0.4-2.0 [facility] Comment on above: Performed By: #### L ACT #### [facility] [address] [address] [address] Andrea Garcia LIPASEon 01-10-2023 Lipase [Catalytic activity/Vol] 71.0 U/L Critically low 73.0-393.0 [facility] Comment on above: Performed By: #### C MADM, CMP, DAMIEN, LIPA ####[facility] [address] [address]Dr. Andrea Garcia PROF 14(COMP METB)on 023 Albumin [Mass/Vol] 3.2 g/dL Critically low 3.4-5.0 [facility] Comment on above: Performed By: #### C MADM, CMP, DAMIEN, LIPA ####[facility] [address] [address]Dr. Andrea Garcia Albumin/Globulin [Mass ratio] 0.9 {ratio} Normal [facility] Comment on above: Performed By: #### C MADM, CMP, DAMIEN, LIPA ####[facility] [address] [address]DrWilder Garcia ALP [Catalytic activity/Vol] 68 U/L Normal 46-116 [facility] Comment on above: Performed By: #### C MADM, CMP, DAMIEN, LIPA ####[facility] [address] [address]DrWilder Garcia ALT [Catalytic activity/Vol] 30 U/L Normal 16-63 [facility] Comment on above: Performed By: #### C MADM, CMP, DAMIEN, LIPA ####[facility] [address] [address]Dr. Andrea Garcia Anion gap [Moles/Vol] 14.2 mmol/L Normal [facility] Comment on above: Performed By: #### C MADM, CMP, DAMIEN, LIPA ####[facility] [address] [address]Dr. Andrea Garcia AST [Catalytic activity/Vol] 18 U/L Normal 15-37 [facility] Comment on above: Performed By: #### C MADM, CMP, DMAIEN, LIPA ####[facility] [address] [address]Dr. Andrea Garcia Bilirubin [Mass/Vol] 0.5 mg/dL Normal 0.2-1.0 [facility] Comment on above: Performed By: #### C MADM, CMP, DAMIEN, LIPA ####[facility] [address] [place], [place] [address]Dr. Andrea Garcia Calcium [Mass/Vol] 8.5 mg/dL Normal 8.5-10.1 [facility] Comment on above: Performed By: #### C MADM, CMP, DAMIEN, LIPA ####[facility] [address] [address]Dr. Andrea Garcia Chloride [Moles/Vol] 108 mmol/L Critically high 98-107 [facility] Comment on above: Performed By: #### C MADM, CMP, DAMIEN, LIPA ####[facility] [address] [address]Dr. Andrea Garcia CO2 [Moles/Vol] 22.1 mmol/L Normal 21.0-32.0 [facility] Comment on above: Performed By: #### C MADM, CMP, DAMIEN, LIPA ####[facility] [address] [address]Dr. Andrea Garcia Creatinine [Mass/Vol] 1.06 mg/dL Normal 0.70-1.30 [facility] Comment on above: Performed By: #### C MADM, CMP, DAMIEN, LIPA ####[facility] [address] [address]Dr. Andrea Garcia EGFR-AF [place] >60 Normal >=60 [facility] Comment on above: Performed By: #### C MADM, CMP, DAMIEN, LIPA ####[facility] [address] [address]Dr. Andrea Garcia EGFR-NON AF [place] >60 Normal >=60 [facility] Comment on above: Performed By: #### C MADM, CMP, DAMIEN, LIPA ####[facility] [address] [address]Dr. Andrea Garcia Globulin (S) [Mass/Vol] 3.5 g/dL Normal [facility] Comment on above: Performed By: #### C MADM, CMP, DAMIEN, LIPA ####[facility] [address] [address]Dr. Andrea Garcia Glucose [Mass/Vol] 110 mg/dL Critically high 74-106 [facility] Comment on above: Performed By: #### C MADM, CMP, DAMIEN, LIPA ####[facility] [address] [address]Dr. Andrea Garcia Potassium [Moles/Vol] 4.3 mmol/L Normal 3.5-5.1 [facility] Comment on above: Performed By: #### C MADM, CMP, DAMIEN, LIPA ####[facility] [address] [address]Dr. Andrea Garcia Protein [Mass/Vol] 6.7 g/dL Normal 6.4-8.2 [facility] Comment on above: Performed By: #### C MADM, CMP, DAMIEN, LIPA ####[facility] [address] [address]Dr. Andrea Garcia Sodium [Moles/Vol] 140 mmol/L Normal 136-145 [facility] Comment on above: Performed By: #### C MADM, CMP, DAMIEN, LIPA ####[facility] [address] [address]DrWilder Garcia Urea nitrogen [Mass/Vol] 20.0 mg/dL Critically high 7.0-18.0 [facility] Comment on above: Performed By: #### C YASMINE, ABHINAV, DAMIEN, LIPA ####[facility] [address] [id number]. Andrea Garcia Urea nitrogen/Creatinine [Mass ratio] 18.9 mg/mg Normal [facility] Comment on above: Performed By: #### C YASMINE, CMP, DAMIEN, LIPA ####[facility] [address] [place] [id number]. Andrea Garcia URINE MICROSCOPIC ONLYon BACTERIA NONE SEEN Normal NONE SEEN [facility] Comment on above: Performed By: #### U MICRO, ERUR #### [facility] [address] [place] [address] Dr. Andrea Garcia Bacteria identified Cx Nom (U) NOT INDICATED Normal [facility] Comment on above: Performed By: #### U MICRO, ERUR #### [facility] [address] [address] [address] Andrea Garcia CAST NONE SEEN Normal NONE SEEN [facility] Comment on above: Performed By: #### U MICRO, ERUR #### [facility] [address] [address] [address] Andrea Garcia Crystals LM Nom (Urine sed) NONE SEEN Normal NONE SEEN [facility] Comment on above: Performed By: #### U MICRO, ERUR #### [facility] [address] [address] [address] Andrea Garcia Epithelial cells LM Ql (Urine sed) NONE SEEN Normal NONE SEEN /RARE [facility] Comment on above: Performed By: #### U MICRO, ERUR #### [facility] [address] [address] [address] Andrea Garcia MUCOUS NONE SEEN Normal NONE SEEN [facility] Comment on above: Performed By: #### U MICRO, ERUR #### [facility] [address] [address] [address] Andrea Garcia RBC 0-2 Normal 0-2 [facility] Comment on above: Performed By: #### U MICRO, ERUR #### [facility] [address] [place], [place] [address] Dr. Andrea Garcia WBC 0-2 Abnormal NONE SEEN [facility] Comment on above: Performed By: #### U MICRO, ERUR #### [facility] [address] [place], [place] [address] Dr. Andrea Garcia XR CHEST 1 Von 01-10-2023 XR CHEST 1 V Exam: Radiographs: X R CHEST 1 V Reason for exam: Nausea/vomiting Comparison: None IMPRESSION: Negative chest. Electronically authenticated by: ADITYA OATES Date: 2023-01-10 07:42 Normal [facility] MRI Soft Tissue Neck w/o [...] by KENN RAPHAEL on 10/06/2021 1605 Normal [facility] [employer] CT Soft Tissue Neck w/ Contr ast*on [...] by Que Greene on 09/29/2021 1013 Normal [facility] [employer] Vital Signs Date Time Vital Sign Value Performing Clinician Ethan liu 09-19-2024 08:42-0500 Body mass index (BMI) [Ratio] 24.11 kg/m2 [employer] Work Phone: [facility] 09-19-2024 08:42-0500 [facility] 09-19-2024 08:42-0500 Diastolic blood pressure 76 mm[Hg] [facility] 09-19-2024 08:42-0500 Heart rate 78 /min [facility] 09-19-2024 08:42-0500 SaO2% (BldA) [Mass fraction] 96 % [facility] 09-19-2024 08:42-0500 Systolic blood pressure 142 mm[Hg] Maribel Bojorquez DO Work Phone: [facility] 01-09-2024 19:01-0400 Diastolic blood pressure 99 mm[Hg] MD Lauren Godwin Work Phone: [facility] 01-09-2024 19:01-0400 Heart rate 84 /min MD Lauren Godwin Work Phone: [facility] 01-09-2024 19:01-0400 Respiratory rate 18 /min MD Lauren Godwin Work Phone: [facility] 01-09-2024 19:01-0400 SaO2% (BldA) [Mass fraction] 97 % MD Lauren Godiwn Work Phone: [facility] 01-09-2024 19:01-0400 Systolic blood pressure 190 mm[Hg] MD Lauren Godwin Work Phone: [facility] 01-09-2024 14:29-0400 Body height 187.96 cm MD Lauren Godwin Work Phone: [facility] 01-09-2024 14:29-0400 Body temperature 98.3 [degF] MD Lauren Godwin Work Phone: [facility] 01-09-2024 14:29-0400 Body weight 83 kg MD Lauren Godwin Work Phone: [facility] 12-18-2023 13:10-0400 Heart rate 85 /min MD Lauren Godwin Work Phone: [facility] 12-18-2023 13:09-0400 Body temperature 97.9 [degF] MD Lauren Godwin Work Phone: [facility] 12-18-2023 13:09-0400 Diastolic blood pressure 77 mm[Hg] MD Laurne Godwin Work Phone: [facility] 12-18-2023 13:09-0400 Respiratory rate 18 /min MD Lauren Godwin Work Phone: [facility] 12-18-2023 13:09-0400 SaO2% (BldA) [Mass fraction] 97 % MD Lauren Godwin Work Phone: [facility] 12-18-2023 13:09-0400 Systolic blood pressure 161 mm[Hg] MD Lauren Godwin Work Phone: [facility] 12-18-2023 13:06-0400 Body height 186.69 cm MD Lauren Godwin Work Phone: [facility] 12-18-2023 13:06-0400 Body weight 81 kg MD Lauren Godwin Work Phone: [facility] 03-03-2023 13:30-0400 Diastolic blood pressure 100 mm[Hg] MD Lauren Godwin Work Phone: [facility] 03-03-2023 13:30-0400 Heart rate 59 /min MD Lauren Godwin Work Phone: [facility] 03-03-2023 13:30-0400 Respiratory rate 18 /min MD Lauren Godwin Work Phone: [facility] 03-03-2023 13:30-0400 SaO2% (BldA) [Mass fraction] 99 % MD Lauren Godwin Work Phone: [facility] 03-03-2023 13:30-0400 Systolic blood pressure 160 mm[Hg] MD Lauren Godwin Work Phone: [facility] 03-03-2023 11:36-0400 Body height 175.26 cm MD Lauren Godwin Work Phone: [facility] 03-03-2023 11:36-0400 Body temperature 98 [degF] MD Lauren Godwin Work Phone: [facility] 03-03-2023 11:36-0400 Body weight 84.3 kg MD Lauren Godwin Work Phone: [facility] Encounters Encounter Date Encounter Type Care Provider Facility Start: 11-05-2024 End: 11-05-2024 ambulatory MARIBEL BOJORQUEZ Not Available Start: 10-02-2024 End: 10-02-2024 ambulatory BLASSILVANO RENO Not Available Start: 09-24-2024 End: 09-24-2024 ambulatory [facility] Start: 09-19-2024 End: 09-19-2024 Bamboo flowsheet Blassilvano Kumarett DO Work Phone: [facility] Start: 09-19-2024 End: 09-19-2024 Bamboo flowsheet Blaser Reno DO Work Phone: [facility] Start: 09-19-2024 End: 09-19-2024 Office outpatient new 45 minutes Maribel Bojorquez DO Work Phone: [facility] Comment on above: Loss of consciousnes s (CMS/HCC) (Primary Dx) Start: 09-19-2024 End: 09-19-2024 ambulatory MARIBEL BOJORQUEZ Not Available Start: 08-09-2024 End: 08-09-2024 Emergency department patient visit SHIV DICKERSON [facility] Start: 04-06-2024 End: 04-06-2024 ambulatory [facility] Start: 01-09-2024 End: 01-09-2024 Emergency department patient visit Lauren Godwin Facility:[facility] Start: 01-09-2024 End: 01-09-2024 Emergency department patient visit MD Lauren Godwin Work Phone: [facility] Work Phone: Start: 12-18-2023 End: 12-18-2023 Emergency department patient visit Marie Garrison Facility:[facility] Start: 12-18-2023 End: 12-18-2023 Emergency department patient visit MD Lauren Godwin Work Phone: [facility] Work Phone: Start: 12-09-2023 End: 12-09-2023 ambulatory [facility] Start: 03-03-2023 End: 03-03-2023 Emergency department patient visit Ramiro Cortez Facility:[facility] Start: 03-03-2023 End: 03-03-2023 Emergency department patient visit MD Lauren Godwin Work Phone: [facility] Work Phone: Start: 01-10-2023 End: 01-11-2023 Evaluation and management of inpatient OBI Facility:H1 Procedures Date Procedure Procedure Detail Performing Clinician Start: 01-09-2024 CT angiography of thorax MD Lauren Godwin Work Phone: Start: 01-09-2024 Plain chest X-ray MD Valdivia Work Phone: Start: 03-03-2023 Plain chest X-ray MD Valdivia Work Phone: Plan of Treatment Date Care Activity Detail Author Start: 11-05-2024 End: 11-05-2024 Patient encounter procedure 11/05/2024 9:00 AM EDT Office Visit MONA SANDOVAL [address] [place] [address] [phone] Maribel Bojorquez DO [address] [place] [phone] [facility] LYNCH[facility] Start: 09-20-2024 End: 09-20-2024 Clinical Support 09/20/2024 8:45 AM EST Clinical Support MONA SANDOVAL [address] [place] [address] [phone] MONA MCLEANEVUE Start: 09-19-2024 End: 09-19-2025 EEG, Including Recording Awake or Asleep EEG, Including Recording Awake or Asleep Neurology Routine Loss of consciousness ([facility]/HCC) Expected: 09/19/2024 (Approximate), Expires: 09/19/2025 [facility] Work Phone: Comment on above: Expected: 09/19/2024 (Approximate), Expires: 09/19/2025 Start: 09-19-2024 End: 09-19-2024 Patient encounter procedure 09/19/2024 9:00 AM EST Office Visit MONA SANDOVAL [address] [place] [phone] Maribel Bojorquez DO [address] [place] [address] [phone] Arrived MONA SANDOVAL Comment on above: Arrived Start: 04-15-2024 Influenza vaccination Influenza Vacc ine (#1) [facility] Start: 12-18-2023 [facility] Start: 2014 Pneumococcal Vaccine : 65+ Years (1 of 1 - PCV) Pneumococcal Vaccine: 65+ Years (1 of 1 - PCV) [facility] Start: 1950 Screening for malign ant neoplasm of colon [facility] Patient Education [facility] Work Phone: Patient referral [facility] Work Phone: Immunizations Immunization Date Immunization Notes Care Provider Fa cility 09-21-2023 influenza virus vaccine, unspecified formulation Maribel Bojorquez DO Work Phone: [facility] Payers Date Payer Category Payer Medicare (Managed Care) [employer] [id number] 2023 Self-pay [id number] 2022 Unknown [id number] 1960 Medicare [id number] 1950 Unknown [id number] 1950 Unknown [id number] [id number] 1950 Unknown [id number]. 2.1259 1950 Unknown [id number]. 2.1259 1950 Unknown [id number]. 2.1259 Unknown [id number] [id number]. 2.531 Unknown [id number] [id number]. 2.531 Unknown [id number] [id number]. 2.531 Social History Date Type Detail Facility Start: 03-03-2023 End: 01-09-2024 Tobacco smoking status [facility] Ex-smoker (finding) [facility] Start: 1950 Sex Assigned At Male F [facility] Tobacco smoking status [facility] Tobacco smoking consumption unknown [facility] Start: 1950 Sex assigned at Not on file N [facility] Gender identity Not on file [facility] are Progress note 09-24-2024 Note Date & Type Note Facility 09-24-2024 Note [place] [facility] Subjective Jeb Riddle is a 73 [...] He was admitted to the hospital at [facility] and was started on anticoagulation therapy. I [...] On 08/31/2024 he was admitted to the [facility] with small bowel obstruction secondary to his [...] mononitrate ER (Imdu (more content not included)... 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 He had taken a Seroquel the night [...] 2 years. He lost his job in [employer] and his house and has had issues [...] , wrist extensors , wrist flexor , clinical engineer strength 5/5. LUE Strength deltoid , biceps , triceps , wrist extensors , wrist flexor , clinical engineer strength 5/5. RLE Strength illopsoas, quadriceps, tibialis [...] reflex 2+ . Reese's sign negative. Coordination: Fvavtv-ar-dvmm testing and rapid alternating movements are normal Gait: Normal Review and summary of old records: CT of the brain without contrast on 08/09/2024 with comparison to 07/14/2022: No acute intracranial pathology I have reviewed notations from [place] emergency department where this 73-year-old patient presented [...] orders for this visit: Loss of consciousness ([facility]) It is my impression that the [...] states he had a recent MRI at [facility] that was also unremarkable. He has no [...] and return instructions documented in this encounter [facility] Progress note 04-06-2024 Note Date & Type Note Facility 04-06-2024 Note [place] [facility] Subjective Jeb Riddle is a 73 y.o. year old male patient here for a follow up echo from January, he was amitted to [facility], for chest pain a couple weeks ago and had another echo. He had a lipid panel yesterday. At last appointment his statin was changed. 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 He still rides his bike to [employer] everyday, still active. Patient Active Problem [...] He was admitted to the hospital at [facility] and was started on anticoagulation therapy. [...] metoprolol succinate XL (more content not included)... [facility] Progress note 12-09-2023 Note Date & Type Note Facility 12-09-2023 Note 8K can you read, out of the so I can make changes in [place] [facility] Subjective Jeb Riddle is a [...] presented to the emergency room at the [facility] and investigation including a CT scan [...] Rfl: 3 prav (more content not included)... [facility] Evaluation note Note Date & Type Note Facility Evaluation note No assessment information [facility] Work Phone: Evaluation note Note Date & Type Note Facility Evaluation note Diagnosis Loss of consciousness (CMS/HCC)- Primary Other alteration of consciousness documented in this encounter [facility] Discharge instructions Note Date & Type Note Facility Hospital Discharge instructions Additional Instructions Continue Pepcid once or twice a day as needed [place] diet Follow-up with your family doctor for recheck Return to the ER for worsening pain shortness of breath fever or any other concerns [facility] Work Phone: Reason for visit Narrative Consultation (Routine) - Closed Note Date & Type Note Facility Reason for visit Narrative Specialty Diagnoses / Procedures Referred By Contac t Referred To Contact Neurology Diagnoses Unspecified convulsions (CMS/HCC) Syncope and collapse Procedures [place] OFFICE/OUTPATIENT [facility] MDM 30 MINUTES Lauren Godwin MD [address] [place] [address] Phone: tel:[phone] fax: Maribel Bojorquez DO [address] [place] [phone] Phone: tel: fax: Referral ID Status Reason Start Date Expiration Date V isits Requested Visits Authorized [id number] Closed Consult and Treat 08/17/2024 02/13/2025 1 [...] section and content) DATE CREATED AUTHOR 10/07/2021 [facility] dical Specialist DATE CREATED AUTHOR AUTHOR'S ORGANIZ ATION 01/21/2023 [facility] DATE CREATED AUTHOR AUTHOR'S ORGANIZ ATION 01/09/2024 [facility] DATE CREATED AUTHOR AUTHOR'S ORGANIZ ATION 08/10/2024 [facility] DATE CREATED AUTHOR AUTHOR'S ORGANIZ ATION 09/25/2024 [facility] DATE CREATED AUTHOR AUTHOR'S ORGANIZ ATION 11/05/2024 [facility] dical Specialists EPIC Care Teams (unrecognized sec [...] 09, 2024 End: January 09, 2024 [facility] Active Start: January 09, 2024 [...] BE BASED ON THE PRIMARY CLINICAL RECORDS. [facility] [employer] provides no warranty or guarantee of the accuracy or completeness of information in this document.
--- NOTE | 2024-11-14 10:34 | ECG_ITS ---
The [facility] Test Date: 2024-11-14 Pat Name: JEB TOBIAS Department: Room: - Gender: Male Insurance Policy Issue Clerk: : 1950 Requested By: [id number] Order Number: [id number] Reading MD: JESSICA FORRESTER M.D. Measurements Intervals [place] Rate: 76 P: 44 VA: 164 QRS: 59 QRSD: 92 T: 79 QT: 382 QTc: 412 Interpretive Statements 1100 Sinus rhythm 1102 Sinus arrhythmia 9110 normal ECG Compared to ECG 11/02/2024 10:11:13 No significant changes Electronically Signed On 11-14-2024 17:30:02 EDT by JESSICA FORRESTER M.D.
[2024-11-14 10:42] VITALS: TEMP 36.5
[2024-11-14 10:45] LABS: Basophils Percent Auto 0.3 % (0.2-2.0); Eosinophils Absolute Auto 0.2 10^3/uL (0.0-0.7); Eosinophils Percent Auto 2.7 % (0.9-7.0); Hematocrit 36.5 % (42.0-54.0); Hemoglobin 12.4 g/dL (14.0-18.0); Immature Granulocytes Abs Auto 0.01 10^3/uL (0.00-0.03); Immature Granulocytes Pct Auto 0.2 % (0.0-0.5); Lymphocytes Absolute Auto 2.1 10^3/uL (1.2-3.8); Mean Corpuscular Volume 94.1 fL (80.0-94.0); Mean Platelet Volume 10.1 fL (9.5-13.5); Monocytes Absolute Auto 0.4 10^3/uL (0.3-0.8); Monocytes Percent Auto 6.1 % (1.7-12.0); Neutrophils Absolute Auto 3.3 10^3/uL (1.4-6.5); Neutrophils Percent Auto 55.7 % (43.0-75.0); Platelet Count 200 10^3/uL (150-450); Red Blood Count 3.88 10^6/uL (4.70-6.10); Red Cell Distribution Width 14.1 % (11.0-15.0); White Blood Count 5.9 10^3/uL (4.0-11.0)
--- NOTE | 2024-11-14 11:02 | CT_ITS ---
The [address] [address] Patient Name: JEB TOBIAS MRN: [id number] date: 1950 Sex: M Assigned Patient Location: ER Current Patient Location: ER Accession/Order Number: [id number] Exam Date: 11/14/2024 11:21 Report Date: 11/14/2024 11:26 At the request of: GRAYSON HANEY MD Procedure: CT head/brain wo con CT BRAIN WITHOUT CONTRAST: CLINICAL HISTORY: dizziness. History of hypertension. COMPARISON: MRI 09/14/2024 TECHNIQUE: Contiguous axial unenhanced images were obtained through the brain. This CT exam was performed using one or more following dose reduction techniques: Automated exposure control, adjustment of the mA and/or kV according to patient size, or use of iterative reconstruction technique. FINDINGS: There is mild atrophy. The ventricles are normal in size and position. Chronic microvascular changes are again noted. There are no additional areas of abnormal attenuation. There is no hemorrhage, mass effect or extra-axial collections. The imaged paranasal sinuses the mastoid air cells are clear. Mild carotid siphon plaque is seen. CT/CT head/brain wo con IMPRESSION: AGE-RELATED CHANGES. NO ACUTE INTRACRANIAL ABNORMALITY. Impression dictated by: Ivonne Zavala M.D.11/14/2024 11:26 AM Dictation Location: [place] [address] Electronically authenticated by: [id number] Y Date: 11/14/2024 11:26
[2024-11-14 11:03] LABS: Alanine Aminotransferase 30 U/L (16-63); Albumin Level 3.3 g/dL (3.4-5.0); Alkaline Phosphatase 76 U/L (46-116); Anion Gap 11.3; Aspartate Amino Transferase 16 U/L (15-37); BUN Creatinine Ratio 27.2; Bilirubin Total 0.5 mg/dL (0.2-1.0); Calcium 8.5 mg/dL (8.5-10.1); Carbon Dioxide 24.5 mmol/L (21.0-32.0); Chloride 104 mmol/L (98-107); Estimated GFR (African America >60 (>=60 mL/min/1.73m^2); Estimated GFR (Non-African Ame 51 (>=60 mL/min/1.73m^2); Globulin 3.3 g/dL; Glucose 143 mg/dL (74-106); Magnesium 1.4 mg/dL (1.8-2.4); Potassium 4.8 mmol/L (3.5-5.1); Sodium 135 mmol/L (136-145); Total Protein 6.6 g/dL (6.4-8.2); Troponin I High Sensitivity 12.4 pg/mL (4.0-76.1)
[2024-11-14 11:12] LABS: Bilirubin Urine NEGATIVE (NEGATIVE); Blood Urine TRACE-I (NEGATIVE); Clarity Urine CLEAR (CLEAR); Color Urine LT. YELLOW (YELLOW); Glucose Urine UA NEGATIVE (NEGATIVE); Ketones Urine NEGATIVE (NEGATIVE); Leukocyte Esterase Urine NEGATIVE (NEGATIVE); Nitrite Urine NEGATIVE (NEGATIVE); Protein Urine NEGATIVE (NEG/TRACE); Specific Gravity Urine <=1.005 (1.005-1.025); Urobilinogen Urine 0.2 EU/dL (0.2-1.0)
[2024-11-14 11:23] LABS: Bacteria Urine NONE SEEN #/HPF (NONE SEEN); Cast Seen? NONE SEEN #/LPF (NONE SEEN); Crystals Seen? None Seen #/HPF (None Seen); Mucus Urine NONE SEEN (NONE SEEN); RBC Urine 0-2 #/HPF (0-2); Squamous Epithelial Cell Urine NONE SEEN #/LPF (NONE/RARE); Urine Culture Indicated NO; WBC Urine 0-2 #/HPF (NONE SEEN)
[2024-11-14] MEDS: MAGNESIUM SULFATE IN WATER 2 GM/50 ML PREMIX IV (11:33)
--- NOTE | 2024-11-14 11:46 | ED_ITS ---
HPI - Dizziness General Chief Complaint: Weakness Stated Complaint: WEAKNESS DIZZINESS Time Seen by Provider: 11/14/24 10:33 Source: patient Mode of arrival: Wheelchair History of Present Illness HPI Narrative: The patient is very well-known to us , coming to the ER with a complaint of dizziness that just started this morning after he recently has his blood pressure medication clonidine increased to 0.2 mg instead of 0.1 mg twice daily, the patient denies any symptoms of head trauma nausea vomiting or any other concerns He also denies any headache he mentioned that he measures his blood pressure after he started being dizzy and it was 107 systolic and he drank a few cups of water and came to the ER to be evaluated Related Data Home Medications ?Medication ?Instructions ?Recorded ?Confirmed mesalamine 400 mg capsule (with 800 mg PO BID 02/25/23 11/02/24 delayed release tablets inside) ondansetron 8 mg disintegrating 8 mg PO Q8H PRN nausea and vomiting 09/02/23 11/02/24 tablet clonidine HCl 0.1 mg tablet 0.1 mg PO BID 03/19/24 11/02/24 apixaban 5 mg tablet (Eliquis) 5 mg PO BID 08/31/24 11/02/24 lorazepam 1 mg tablet (Ativan) 1 mg PO BID PRN anxiety 08/31/24 11/02/24 Previous Rx's ?Medication ?Instructions ?Recorded isosorbide mononitrate 30 mg 30 mg PO QAM #30 tabs 03/14/23 tablet,extended release 24 hr lisinopril 20 mg tablet 40 mg (2 x 20 mg) PO DAILY #60 tabs 09/03/24 Allergies Allergy/AdvReac Type Severity Reaction Status Date / Time Fish Containing Products AdvReac Severe Abdominal Verified 08/31/24 02:45 Pain Review of Systems ROS Status of ROS 10 or more systems reviewed and unremark able except as noted in history and below [facility] Medical History (Updated 11/14/24 @ 12:20 by Shelby Du MD) Small bowel obstruction ?K56.609 - Unspecified intestinal obstruction, unspecified as to partial versus complete obstruction (ICD-10) Abdominal pain ?R10.9 - Unspecified abdominal pain (ICD-10) Pulmonary embolism ?I26.99 - Other pulmonary embolism without acute cor pulmonale (ICD-10) Chest pain ?R07.9 - Chest pain, unspecified (ICD-10) Elevated blood pressure reading ?R03.0 - Elevated blood-pressure reading, without diagnosis of hypertension (ICD-10) Uncontrolled hypertension ?I10 - Essential (primary) hypertension (ICD-10) UTI (urinary tract infection) ?N39.0 - Urinary tract infection, site not specified (ICD-10) DVT (deep venous thrombosis) ?I82.409 - Acute embolism and thrombosis of unspecified deep veins of unspecified lower extremity (ICD-10) Dehydration ?E86.0 - Dehydration (ICD-10) DAVID (acute kidney injury) ?N17.9 - Acute kidney failure, unspecified (ICD-10) Abdominal pain ?R10.9 - Unspecified abdominal pain (ICD-10) Nausea & vomiting ?R11.2 - Nausea with vomiting, unspecified (ICD-10) Hypertension ?I10 - Essential (primary) hypertension (ICD-10) Crohn disease ?K50.90 - Crohn's disease, unspecified, without complications (ICD-10) Surgical History H/O hernia repair ?Z98.890 - Other specified postprocedural states (ICD-10) ?Z87.19 - Personal history of other diseases of the digestive system (ICD-10) History of bowel resection ?Z90.49 - Acquired absence of other specified parts of digestive tract (ICD- 10) Family History (Updated 03/13/23 @ 20:02 by Bita Cyr RN) Father Family history of COPD (chronic obstructive pulmonary disease) Family history of diabetes mellitus Family history of myocardial infarction Brother Family history of cancer Mother Family history of diabetes mellitus Other Family history of hypertension Social History Within the past year, how often did you have a drink containing alcohol: 2-3 times a week Within the past year, how many standard drinks containing alcohol did you have on a typical day: 1 or 2 Within the past year, how often did you have six or more drinks on one occasion: never Total score: 0 Score interpretation: A score less than 4 is consistent with normal alcohol consumption. 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 Little interest or pleasure in doing things: not at all Feeling down, depressed, or hopeless: not at all Feel stressed/tense/nervous/anxious/difficulty sleeping: not at all Do you think of yourself as: straight/heterosexual Gender Identity: male Exam Narrative Exam Narrative: Nurses notes and vital signs reviewed and patient is not hypoxic. General: Well-appearing and in no apparent distress. Skin: Warm, dry, no pallor noted. No rash. Head: Normocephalic, atraumatic. Neck: Supple, non-tender. Cardiovascular: Regular Rate and Rhythm without murmur, gallop or rub. Respiratory: No accessory muscle use or respiratory distress. Lungs are clear to auscultation, no wheezing, rales or rhonchi Chest Wall: no tenderness Back: No midline thoracic or lumbar vertebral tenderness. No CVA tenderness Musculoskeletal: normal ROM, no calf or popliteal tenderness, no lower extremity edema/swelling GI: Abdomen is soft, non-distended. Normal bowel sounds. No masses appreciated. No tenderness to palpation. No rebound, guarding, or rigidity noted. Neurological: A&O x4. No cranial nerve dysfunction observed. No truncal ataxia. Moves all extremities. Sensation intact. Psychiatric: Cooperative and interactive. Normal mood and affect. Constitutional Vital Signs, click to edit/add: Last Vital Signs Temp 97.7 F 11/14/24 10:42 Pulse 98 H 11/14/24 10:24 Resp 22 H 11/14/24 10:24 BP 178/86 H 11/14/24 10:24 Pulse Ox 99 11/14/24 10:24 O2 Del Method Room Air 11/14/24 10:24 Course Vital Signs Vital signs: Vital Signs Pulse Rate 98 H 11/14/24 10:24 Respiratory Rate 22 H 11/14/24 10:24 Blood Pressure 178/86 H 11/14/24 10:24 Pulse Oximetry 99 11/14/24 10:24 Oxygen Delivery Method Room Air 11/14/24 10:24 Temperature 97.7 F 11/14/24 10:42 Pulse Rate 98 H 11/14/24 10:24 Respiratory Rate 22 H 11/14/24 10:24 Blood Pressure 178/86 H 11/14/24 10:24 Pulse Oximetry 99 11/14/24 10:24 Oxygen Delivery Method Room Air 11/14/24 10:24 MDM - Dizziness MDM Narrative Medical decision making narrative: The patient EKG in the ER showing sinus rhythm with a heart rate of [address] elevation or depression CT head showed no acute pathology CBC and chemistry showed no acute pathology as well with the chronic kidney disease Patient will pressure was elevated here at 150 and 170 systolic I did explain to the patient that his symptoms could have been due to the recent increase in his antihypertensive medication, the patient magnesium also was low which was replaced with IV magnesium The patient right now just to continue taking his blood pressure at home and follow-up with the primary care doctor as outpatient In case of continuous symptoms the patient to stop the clonidine and go back to baseline 0.1 mg instead of the 0.2 and follow-up with outpatient The patient is to follow up with primary care physician in next 2-3 days or to return to the emergency department should any of the signs or symptoms worsen or new symptoms develop. The patient agrees with the following Diagnosis and Treatment plan and the patient will be discharged home. Lab Data Labs: Lab Results 11/14/24 11/14/24 Range/Units 10:35 11:03 WBC 5.9 (4.0-11.0) 10^3/uL RBC 3.88 L (4.70-6.10) 10^6/uL Hgb 12.4 L (14.0-18.0) g/dL Hct 36.5 L (42.0-54.0) % MCV 94.1 H (80.0-94.0) fL MCH 32.0 (25.9-34.0) pg MCHC 34.0 (29.9-35.2) g/dL RDW 14.1 (11.0-15.0) % Plt Count 200 (150-450) 10^3/uL MPV 10.1 (9.5-13.5) fL Neut % (Auto) 55.7 (43.0-75.0) % Lymph % (Auto) 35.0 (20.5-60.0) % Antelope % (Auto) 6.1 (1.7-12.0) % Eos % (Auto) 2.7 (0.9-7.0) % Baso % (Auto) 0.3 (0.2-2.0) % Neut # (Auto) 3.3 (1.4-6.5) 10^3/uL Lymph # (Auto) 2.1 (1.2-3.8) 10^3/uL Antelope # (Auto) 0.4 (0.3-0.8) 10^3/uL Eos # (Auto) 0.2 (0.0-0.7) 10^3/uL Baso # (Auto) 0.0 (0.0-0.1) 10^3/uL Abs Immat Gran (auto) 0.01 (0.00-0.03) 10^3/uL Imm/Tot Granulo (auto) 0.2 (0.0-0.5) % Sodium 135 L (136-145) mmol/L Potassium 4.8 (3.5-5.1) mmol/L Chloride 104 (98-107) mmol/L Carbon Dioxide 24.5 (21.0-32.0) mmol/L Anion Gap 11.3 BUN 37.0 H (7.0-18.0) mg/dL Creatinine 1.36 H (0.70-1.30) mg/dL Est GFR ( Amer) >60 (>=60 mL/min/1.73m^2) Est GFR (Non-Af Amer) 51 L (>=60 mL/min/1.73m^2) BUN/Creatinine Ratio 27.2 Glucose 143 H (74-106) mg/dL Calcium 8.5 (8.5-10.1) mg/dL Magnesium 1.4 L (1.8-2.4) mg/dL Total Bilirubin 0.5 (0.2-1.0) mg/dL AST 16 (15-37) U/L ALT 30 (16-63) U/L Alkaline Phosphatase 76 (46-116) U/L Troponin I High Sens 12.4 (4.0-76.1) pg/mL Total Protein 6.6 (6.4-8.2) g/dL Albumin 3.3 L (3.4-5.0) g/dL Globulin 3.3 g/dL Albumin/Globulin Ratio 1.0 Urine Color Lt. yellow (YELLOW) Urine Clarity Clear (CLEAR) Urine pH 6.0 (5.0-9.0) Ur Specific [place] <=1.005 A (1.005-1.025) Urine Protein Negative (NEG/TRACE) mg/dL Urine Glucose (UA) Negative (NEGATIVE) mg/dL Urine Ketones Negative (NEGATIVE) mg/dL Urine Occult Blood Trace-i (NEGATIVE) Urine Nitrite Negative (NEGATIVE) Urine Bilirubin Negative (NEGATIVE) Urine Urobilinogen 0.2 (0.2-1.0) EU/dL Ur Leukocyte Esterase Negative (NEGATIVE) Urine RBC 0-2 (0-2) #/HPF Urine WBC 0-2 A (NONE SEEN) #/HPF Ur Squamous Epith Cells None seen (NONE/RARE) #/LPF Urine Crystals None seen (None Seen) #/HPF Urine Bacteria None seen (NONE SEEN) #/HPF Urine Casts None seen (NONE SEEN) #/LPF Urine Mucus None seen (NONE SEEN) Ur Culture Indicated? No Discharge Plan Discharge Chief Complaint: Weakness Clinical Impression: Dizziness, Hypomagnesemia Patient Disposition: Home, Self-Care Time of Disposition Decision: 12:15 Condition: Good Prescriptions / Home Meds: No Action isosorbide mononitrate 30 mg tablet extended release 24 hr 30 mg PO QAM Qty: 30 11RF ondansetron 8 mg tablet,disintegrating 8 mg PO Q8H PRN (Reason: nausea and vomiting) clonidine HCl 0.1 mg tablet 0.1 mg PO BID lorazepam [Ativan] 1 mg tablet 1 mg PO BID PRN (Reason: anxiety) Eliquis 5 mg Tablet 5 mg PO BID Rx Instructions: 10 mg a day for 1 week then 5 mg po BID lisinopril 20 mg Tablet 40 mg PO DAILY Qty: 60 12RF mesalamine 400 mg capsule (with del rel tablets) 800 mg PO BID Print Language: Hungarian Instructions: Lightheadedness (ED) Referrals: Rodriguez Godwin MD [Primary Care Provider] - 1 week Discharge Date/Time: 11/14/24 12:24
== END 2024-11-14 12:24 | disposition home or self-care (01) ==
PROVIDERS: Emergency Provider Emergency Medicine; Family Provider Family Medicine; PCP Family Medicine
DX: R42 Dizziness and giddiness (principal); E83.42 Hypomagnesemia; Z79.899 Other long term (current) drug therapy; I10 Essential (primary) hypertension; Z90.49 Acquired absence of other specified parts of digestive tract; Z87.891 Personal history of nicotine dependence
CPT/HCPCS: 36415; 70450; 80053; 81001; 83735; 84484; 85025; 93005; 96365; 99285; J3475

== ENCOUNTER 2024-11-25 14:49 | Emergency (ER) | payer MEDICARE, SELFPAY ==
[2024-11-25 14:55] VITALS: BP 180/92; PULSE 99; TEMP 36.8; O2SAT 99
--- OUTSIDE RECORDS SUMMARY | 2024-11-25 15:04 | XMS_ITS | CCD ---
Author Organization [facility] Care Team Providers Care Delivery Technician Name Role Phone DR BEHZAD CROCKER Primary Care Unavailable DANIEL ., JUNI Attending Unavailable DANIEL ., JUNI Admitting Unavailable DR ROBERT DAVENPORT V Consulting Unavailable PTIER GROSSMAN Consulting Unavailable DANIEL ., JUNI Consulting Unavailable DIAB ., GRAYSON Consulting Unavailable ADITYA OATES Consulting Unavailable MD Lauren Godwin Primary Care Provider [phone] DO Ramiro Cortez Emergency Provider MD Lauren Godwin Primary Care Provider [phone] KYA Garrison Emergency Provider [phone] [employer], 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 Naima Phelan Emergency Provider Lauren Godwin Primary [...] Delaney Attending Unavailable LAUREN GODWIN Referring Unavailable MARIBEL BOJORQUEZ Referring Unavailable MARIBEL BOJORQUEZ Attending Unavailable JESSICA FORRESTER Attending Unavailable JESSICA FORRESTER Attending Unavailable JESSICA FORRESTER Attending Unavailable JESSICA FORRESTER Attending Unavailable Allergies Allergy Classification Reported Allergen(s) Allergy Type Date of Onset Reaction(s) Facility (2 sources) Fish derivative; Translations: [fish derived] Propensity to adverse reactions 03-03-20 Gastrointestinal Upset [facility] (1 source) atorvastatin; Translations: [ATORVASTATIN] Drug Allergy 04-06-20 [facility] Repository Medications Current Medications Medication Drug [...] disease (2 sources) Atherosclerotic heart disease of [place] coronary artery without angina pectoris; Translations: [Atherosclerotic heart disease of [place] coronary artery without angina pectoris] 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; convulsions (1 source) Unspecified convulsions; Translations: [Unspecified convulsions] Onset: 08-09-2024 Episodic Essential hypertension (3 sources) Essential (primary) hypertension; Translations: [ESSENTIAL PRIMARY HYPERTENSION] Onset: 01-12-2023 Chronic Other aftercare (1 source) 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; Translations: [INTERMEDIATE USE OF SYSTEMIC STEROIDS] Onset: 01-12-2023 Episodic Other aftercare (1 source) Other skilled nursing (current) drug therapy; Translations: [OTH INTERMEDIATE CURRENT DRUG THERAPY] Onset: 01-12-2023 Episodic Other [...] source) EMS Onset: 08-09-2024 Unclassified (1 source) Supraventricular tachycardia, unspecified; Translations: [Supraventricular tachycardia, unspecified] Onset: 11-14-2024 Unclassified (1 source) Other ventricular tachycardia; Translations: [Other ventricular tachycardia] Onset: 12-09-2023 Past or Other Problems Problem Classification Problem Date Documented Da te Episodic/Chronic Nonspecific chest pain (2 sources) Atypical chest pain; Translations: [Other chest pain] Onset: 3 01-09-2024 Episodic Phlebitis; thrombophlebitis and thromboembolism (2 sources) Personal history of other venous thrombosis and embolism; Translations: [Personal history of other venous thrombosis and embolism] Onset: 4 Episodic Pulmonary heart disease (2 sources) Personal history of pulmonary embolism; Translations: [Personal history of pulmonary embolism] Onset: 4 Episodic Unclassified (1 source) Supraventricular tachycardia, unspecified; Translations: [Supraventricular tachycardia, unspecified] Onset: 5 Unclassified (1 source) Other ventricular tachycardia; Translations: [Other ventricular tachycardia] Onset: 4 Results Test Name Value Interpretation Reference Range Facility Office Visiton 11-14-2024 Follow-up visit [id number] Jeb Riddle 1950 M Date Provider Department Center 11/14/2024 JESSICA JAMISON [facility] Lori [facility] Family History Problem Relation Age of Onset Diabetes Mother Coronary artery disease Mother Heart attack Father Diabetes Father Coronary artery disease Father Pulmonary embolism Brother Family Status - Relation Status Age at Mother Father Brother Level of Service:43818 [place] OFFICE/OUTPATIENT ESTABLISHED MOD MDM 30 MIN Normal [facility] Office Visiton 09-24-2024 Follow-up visit [id number] Jeb Riddle 1950 M Date Provider Department Center 09/24/2024 JESSICA JAMISON MISSY Sandoval [facility] Family History Problem Relation Age of Onset Diabetes Mother Coronary artery disease Mother Heart attack Father Diabetes Father Coronary artery disease Father Family Status - Relation Status Age at Mother Father Level of Service:33619 [place] OFFICE/OUTPATIENT ESTABLISHED MOD MDM 30 MIN Normal [facility] CBC AND AUTO DIFFon 08-09-20 ABSOLUTE BASOPHIL 0.0 X10E9/L Normal 0.0-0.2 [facility] Comment on above: Performed By: #### 1 9123-9, 98300-6, CMP, 73548-2, 40652-1, CBCA, 5643-2, PINR #### [facility] ([id number]) [address] [place] [address], [place] [address] ABSOLUTE NEUTROPHIL 3.9 X10E9/L Normal 1.5-6.6 [facility] Comment on above: Performed By: #### 1 9123-9, 27026-8, CMP, 07854-0, 57721-8, CBCA, 5643-2, PINR #### [facility] ([id number]) [address] [place] [address] 10249 Basophils/100 WBC (Bld) 0.3 % Normal [facility] Comment on above: Performed By: #### 1 9123-9, 90434-0, CMP, 68493-1, 12668-1, CBCA, 5643-2, PINR #### [facility] ([id number]) [address] [place] [address] 26070 Eosinophils (Bld) [#/Vol] 0.1 10*3/uL Normal 0.0-0.4 [facility] Comment on above: Performed By: #### 1 9123-9, 62688-1, CMP, 57637-9, 14486-9, CBCA, 5643-2, PINR #### [facility] ([id number]) [address] [place] [address] 94864 Eosinophils/100 WBC (Bld) 1.4 % Normal [facility] Comment on above: Performed By: #### 1 9123-9, 85864-7, CMP, 48051-1, 38535-0, CBCA, 5643-2, PINR #### [facility] ([id number]) [address] [place] [address] 92372 Erythrocyte distribution width (RBC) [Ratio] 13.0 % Normal 11.5-15.0 [facility] Comment on above: Performed By: #### 1 9123-9, 56951-6, CMP, 81822-0, 82751-9, CBCA, 5643-2, PINR #### [facility] ([id number]) [address] [place] [address] 47394 Hematocrit (Bld) [Volume fraction] 35.7 % Low 39-49 [facility] Comment on above: Performed By: #### 1 9123-9, 23587-4, CMP, 37327-5, 38375-8, CBCA, 5643-2, PINR #### [facility] ([id number]) [address] [place] [address] 15190 Hemoglobin (Bld) [Mass/Vol] 12.3 g/dL Low 13.0-17.0 [facility] Comment on above: Performed By: #### 1 9123-9, 57336-4, CMP, 35073-7, 37508-6, CBCA, 5643-2, PINR #### [facility] ([id number]) [address] [place] [address] 92761 Lymphocytes (Bld) [#/Vol] 1.1 10*3/uL Normal 1.0-3.5 [facility] Comment on above: Performed By: #### 1 9123-9, 65193-0, CMP, 56412-1, 55909-4, CBCA, 5643-2, PINR #### [facility] ([id number]) [address] [place] [address] 67266 Lymphocytes/100 WBC (Bld) 21.0 % Normal [facility] Comment on above: Performed By: #### 1 9123-9, 12936-5, CMP, 67553-4, 68253-4, CBCA, 5643-2, PINR #### [facility] ([id number]) [address] [place] [address] 47161 MCH (RBC) [Entitic mass] 33.2 pg Normal 27-34 [facility] Comment on above: Performed By: #### 1 9123-9, 53010-7, CMP, 69742-2, 72801-1, CBCA, 5643-2, PINR #### [facility] ([id number]) [address] [place] [address] 02988 MCHC (RBC) [Mass/Vol] 34.3 g/dL Normal 32-36 [facility] Comment on above: Performed By: #### 1 9123-9, 38853-8, CMP, 03778-8, 27381-7, CBCA, 5643-2, PINR #### [facility] ([id number]) [address] [place] [address] 65541 MCV (RBC) [Entitic vol] 97 fL Normal 80-100 [facility] Comment on above: Performed By: #### 1 9123-9, 64866-6, CMP, 17648-0, 82444-6, CBCA, 5643-2, PINR #### [facility] ([id number]) [address] [place] [address] 02805 Monocytes (Bld) [#/Vol] 0.2 10*3/uL Normal 0-0.9 [facility] Comment on above: Performed By: #### 1 9123-9, 84893-3, CMP, 49144-8, 96693-8, CBCA, 5643-2, PINR #### [facility] ([id number]) [address] [place] [address] 41454 Monocytes/100 WBC (Bld) 4.5 % Normal [facility] Comment on above: Performed By: #### 1 9123-9, 92343-1, CMP, 06011-3, 62931-0, CBCA, 5643-2, PINR #### [facility] ([id number]) [address] [place] [address] 36766 Neutrophils/100 WBC (Bld) 72.8 % Normal [facility] Comment on above: Performed By: #### 1 9123-9, 24428-4, CMP, 05242-3, 91594-3, CBCA, 5643-2, PINR #### [facility] ([id number]) [address] [place] [address] 43436 Platelet mean volume (Bld) [Entitic vol] 7.7 fL Normal 7-12 [facility] Comment on above: Performed By: #### 1 9123-9, 80982-3, CMP, 52408-8, 26272-6, CBCA, 5643-2, PINR #### [facility] ([id number]) [address] [place] [address] 62864 Platelets (Bld) [#/Vol] 208 10*3/uL Normal 150-450 [facility] Comment on above: Performed By: #### 1 9123-9, 07022-9, CMP, 16188-2, 75352-6, CBCA, 5643-2, PINR #### [facility] ([id number]) [address] [place] [address] 50087 RBC COUNT 3.69 X10E12/L Low 4.10-5.70 [facility] Comment on above: Performed By: #### 1 9123-9, 54457-5, CMP, 32314-1, 88165-7, CBCA, 5643-2, PINR #### [facility] ([id number]) [address] [place] [address] 64200 WBC (Bld) [#/Vol] 5.4 10*3/uL Normal 4.0-11.0 [facility] Comment on above: Performed By: #### 1 9123-9, 60403-6, CMP, 48461-6, 42520-4, CBCA, 5643-2, PINR #### [facility] ([id number]) [address] [place] [address] 18340 COMPREHENSIVE METABOLIC PANE Morgan 08-09-2024 Albumin [Mass/Vol] 3.5 g/dL Normal 3.2-5.3 [facility] Comment on above: Performed By: #### 1 9123-9, 87389-5, CMP, 36719-0, 19519-8, CBCA, 5643-2, PINR #### [facility] ([id number]) [address] [place] [address] 81928 ALP [Catalytic activity/Vol] 56 U/L Normal 39-130 [facility] Comment on above: Performed By: #### 1 9123-9, 89469-9, CMP, 42341-0, 38929-5, CBCA, 5643-2, PINR #### [facility] ([id number]) [address] [place] [address] 61425 ALT [Catalytic activity/Vol] 25 U/L Normal 0-40 [facility] Comment on above: Performed By: #### 1 9123-9, 81139-1, CMP, 88499-5, 88694-6, CBCA, 5643-2, PINR #### [facility] ([id number]) [address] [place] [address] 17022 Anion gap [Moles/Vol] 7 mmol/L Normal 5-15 [facility] Comment on above: Performed By: #### 1 9123-9, 04859-4, CMP, 48313-5, 20053-5, CBCA, 5643-2, PINR #### [facility] ([id number]) [address] [place] [address] 78355 AST [Catalytic activity/Vol] 19 U/L Normal 0-41 [facility] Comment on above: Performed By: #### 1 9123-9, 29921-4, CMP, 32309-2, 35937-3, CBCA, 5643-2, PINR #### [facility] ([id number]) [address] [place] [address] 29428 Bilirubin [Mass/Vol] 0.4 mg/dL Normal 0.3-1.2 [facility] Comment on above: Performed By: #### 1 9123-9, 99462-7, CMP, 51963-6, 85323-6, CBCA, 5643-2, PINR #### [facility] ([id number]) [address] [place] [address] 28005 Calcium [Mass/Vol] 8.8 mg/dL Normal 8.5-10.5 [facility] Comment on above: Performed By: #### 1 9123-9, 31337-6, CMP, 88406-7, 98439-7, CBCA, 5643-2, PINR #### [facility] ([id number]) [address] [place] [address] 56215 Chloride [Moles/Vol] 108 mmol/L Normal 98-109 [facility] Comment on above: Performed By: #### 1 9123-9, 28105-3, CMP, 34739-3, 39702-1, CBCA, 5643-2, PINR #### [facility] ([id number]) [address] [place] [address] 76144 CO2 [Moles/Vol] 23 mmol/L Normal 22-32 [facility] Comment on above: Performed By: #### 1 9123-9, 31563-9, CMP, 03329-3, 73413-1, CBCA, 5643-2, PINR #### [facility] ([id number]) [address] [place] [address] 34947 Creatinine [Mass/Vol] 1.37 mg/dL High 0.70-1.20 [facility] Comment on above: Result Comment: METH OD TRACEABLE TO IDMS STANDARD Performed By: #### 1 9123-9, 10755-8, CMP, 94227-6, 88850-9, CBCA, 5643-2, PINR #### [facility] ([id number]) [address] [place] [address] 34896 GFR/1.73 sq M.predicted among non-blacks MDRD (S/P/Bld) [Vol rate/Area] 54 mL/min/{1.73_m2} Low >59 [facility] Comment on above: Result Comment: Reported eGFR is based on the CKD-EPI 2020 equation that does not use a race coefficient. Performed By: #### 1 9123-9, 01726-6, CMP, 73006-8, 49983-1, CBCA, 5643-2, PINR #### [facility] ([id number]) [address] [place] [address] 55909 Glucose [Mass/Vol] 155 mg/dL High 65-99 [facility] Comment on above: Performed By: #### 1 9123-9, 39434-9, CMP, 97100-0, 74350-1, CBCA, 5643-2, PINR #### [facility] ([id number]) [address] [place] [address] 07497 Potassium [Moles/Vol] 4.3 mmol/L Normal 3.5-5.0 [facility] Comment on above: Performed By: #### 1 9123-9, 80263-9, CMP, 62838-8, 09872-3, CBCA, 5643-2, PINR #### [facility] ([id number]) [address] [place] [address] 30823 Protein [Mass/Vol] 6.0 g/dL Normal 6.0-8.0 [facility] Comment on above: Performed By: #### 1 9123-9, 73151-4, CMP, 85262-4, 62459-6, CBCA, 5643-2, PINR #### [facility] ([id number]) [address] [place] [address] 75289 Sodium [Moles/Vol] 138 mmol/L Normal 134-146 [facility] Comment on above: Performed By: #### 1 9123-9, 22296-5, CMP, 58628-9, 95127-6, CBCA, 5643-2, PINR #### [facility] ([id number]) [address] [place] [address] 41253 Urea nitrogen [Mass/Vol] 25 mg/dL Normal 5- [facility] Comment on above: Performed By: #### 1 9123-9, 85645-5, CMP, 97355-7, 07000-6, CBCA, 5643-2, PINR #### [facility] ([id number]) [address] [place] [address] BRAIN WO CONTon CT BRAIN WO [...] Moran MD on 08/09/2024 12:[address] [facility] DRUG SCREEN, URINEon 024 AMPHETAMINE/METHAMP Negative Normal NEG [facility] Comment on above: Result Comment: AMPH /METH screening cut off = 1000 ng/mL Performed By: #### 1 9123-9, 89831-3, CMP, 89866-7, 24555-2, CBCA, 5643-2, PINR #### [facility] ([id number]) [address] [place] [address] 79127 BARBITURATES Negative Normal NEG [facility] Comment on above: Result Comment: Maria Eugenia iturates screening cut off value = 200 ng/mL Performed By: #### 1 9123-9, 68565-4, CMP, 84269-6, 95773-3, CBCA, 5643-2, PINR #### [facility] ([id number]) [address] [place] [address] 01573 BENZODIAZEPINES Negative Normal NEG [facility] Comment on above: Result Comment: Paulie odiazepines screening cut off value = 200 ng/mL Performed By: #### 1 9123-9, 68026-0, CMP, 31385-5, 95700-2, CBCA, 5643-2, PINR #### [facility] ([id number]) [address] [place] [address] 46958 CANNABINOIDS Negative Normal NEG [facility] Comment on above: Result Comment: Nora abinoids/THC screening cut off value = 50 ng/mL Performed By: #### 1 9123-9, 94755-6, CMP, 86866-5, 33846-7, CBCA, 5643-2, PINR #### [facility] ([id number]) [address] [place] [address] 50237 COCAINE METABOLITE Negative Normal NEG [facility] Comment on above: Result Comment: Coca ine screening cut off value = 300 ng/mL Performed By: #### 1 9123-9, 37699-2, CMP, 09252-1, 18316-2, CBCA, 5643-2, PINR #### [facility] ([id number]) [address] [place] [address] 32566 ECSTASY Negative Normal NEG [facility] Comment on above: Result Comment: Ecst asy screening cut off value = 500 ng/mL This report is intended for use in clinical monitoring or management of patients. Performed By: #### 1 9123-9, 70240-6, CMP, 19405-6, 94236-7, CBCA, 5643-2, PINR #### [facility] ([id number]) [address] [place] [address] 86967 METHADONE Negative Normal NEG [facility] Comment on above: Result Comment: Meth adone screening cut off value = 300 ng/mL. Performed By: #### 1 9123-9, 63758-7, CMP, 88213-7, 96033-2, CBCA, 5643-2, PINR #### [facility] ([id number]) [address] [place] [address] 57622 OPIATES Negative Normal NEG [facility] Comment on above: Result Comment: Opia brennen screening cut off value = 300 ng/mL NOTE: This test is used for the detection of codeine, hydrocodone (>1000 ng/mL), morphine and hydromorphone (>900 ng/mL) in urine. Performed By: #### 1 9123-9, 80810-8, CMP, 55693-4, 29223-3, CBCA, 5643-2, PINR #### [facility] ([id number]) [address] [place] [address] 26221 OXYCODONE Negative Normal NEG [facility] Comment on above: Result Comment: Oxyc odone screening cut off value = 300 ng/mL NOTE: This test is used for the detection of oxycodone and oxymorphone in urine. Performed By: #### 1 9123-9, 02130-3, [facility], 61584-9, 28698-9, CBCA, 5643-2, PINR #### [facility] ([id number]) [address] [place] [address] 07045 PHENCYCLIDINE Negative Normal NEG [facility] Comment on above: Result Comment: Phen cyclidine screening cut off value = 25 ng/mL Performed By: #### 1 9123-9, 17327-2, CMP, 11139-4, 97513-2, CBCA, 5643-2, PINR #### [facility] ([id number]) [address] [place] [address] 75143 ETHANOLon 08-09-2024 Ethanol [Mass/Vol] mg/dL Normal 0.00-0.08 [facility] Comment on above: Result Comment: This report is intended for use in clinical monitoring or management of patients. Performed By: #### 1 9123-9, 79121-4, [facility], 12865-8, 84336-7, CBCA, 5643-2, PINR #### [facility] ([id number]) [address] [place] [address] 60754 Fibrin D-dimer DDU (PPP) [Ma ss/Vol]on 08-09-2024 D DIMER 167 ng/mL DDU Normal <255 [facility] Comment on above: Result Comment: Results <255 ng/mL DDU: The presence of a VTE can safely be excluded with a negative D-Dimer result and Wells score. A negative result doesn't exclude the possibility of DIC. The test be repeated along with other diagnostic tests if the patient's symptoms persist or worsen. [email or web address] Performed By: #### 1 9123-9, 01689-3, [facility], 78005-9, 11638-1, CBCA, 5643-2, PINR #### [facility] ([id number]) [address] [place] [address] 98351 MAGNESIUMon 08-09-2024 Magnesium [Mass/Vol] 1.4 mg/dL Low 1.8-2.6 [facility] Comment on above: Performed By: #### 1 9123-9, 06687-0, [facility], 55177-0, 78585-1, CBCA, 5643-2, PINR #### [facility] ([id number]) [address] [place] [address] 38681 PROTIME AND INRon 08-09-2024 INR Coag (PPP) [Relative time] 1.2 {INR} High 0.8-1.1 [facility] Comment on above: Performed By: #### 1 9123-9, 25620-3, [facility], 70472-1, 36568-3, CBCA, 5643-2, PINR #### [facility] ([id number]) [address] [place] [address] 86914 PT Coag (PPP) [Time] 14.3 s High 9.8-13.2 [facility] Comment on above: Result Comment: NEW REFERENCE RANGE Performed By: #### 1 9123-9, 78605-2, CMP, 59968-8, 70510-3, CBCA, 5643-2, PINR #### [facility] ([id number]) [address] [place] [address] 89038 Troponin I.cardiac High sens itivity method [Mass/Vol]on 08-09-2024 1 HOUR TROP I, HIGH SENSITIVITY 10 ng/L Normal <21 [facility] Comment on above: Performed By: #### 1 9123-9, 59827-0, CMP, 08451-0, 39281-3, CBCA, 5643-2, PINR #### [facility] ([id number]) [address] [place] [address] 67553 TROPONIN I, HIGH SENSITIVITY 8 ng/L Normal <21 [facility] Comment on above: Performed By: #### 1 9123-9, 68005-8, CMP, 01181-7, 94336-1, CBCA, 5643-2, PINR #### [facility] ([id number]) [address] [place] [address] 10115 URINALYSISon 08-09-2024 Bilirubin Ql (U) Negative Normal NEG [facility] Comment on above: Performed By: #### 1 9123-9, 76039-2, CMP, 75994-3, 63336-6, CBCA, 5643-2, PINR #### [facility] ([id number]) [address] [place] [address] 52682 BLOOD/HGB Negative Normal NEG [facility] Comment on above: Performed By: #### 1 9123-9, 55961-3, CMP, 29528-2, 66182-7, CBCA, 5643-2, PINR #### [facility] ([id number]) [address] [place] [address] 75582 Color (U) YELLOW Normal YELLOW [facility] Comment on above: Performed By: #### 1 9123-9, 44244-0, CMP, 72577-0, 10329-3, CBCA, 5643-2, PINR #### [facility] ([id number]) [address] [place] [address] 21943 Glucose Ql (U) Negative Normal NEG [facility] Comment on above: Performed By: #### 1 9123-9, 28712-2, CMP, 71035-2, 72449-0, CBCA, 5643-2, PINR #### [facility] ([id number]) [address] [place] [address] [place] [address] Ketones Ql (U) Negative Normal NEG [facility] Comment on above: Performed By: #### 1 9123-9, 24903-0, CMP, 30009-3, 39274-0, CBCA, 5643-2, PINR #### [facility] ([id number]) [address] [place] [address] [place] [address] Leukocyte esterase Test strip Ql (U) Negative Normal NEG [facility] Comment on above: Performed By: #### 1 9123-9, 70112-0, CMP, 38666-9, 12898-7, CBCA, 5643-2, PINR #### [facility] ([id number]) [address] [place] [address] Nitrite Ql (U) Negative Normal NEG [facility] Comment on above: Performed By: #### 1 9123-9, 21810-9, CMP, 96778-4, 52672-2, CBCA, 5643-2, PINR #### [facility] ([id number]) [address] [place] [address] pH (U) 6.0 [pH] Normal 5.0-8.5 [facility] Comment on above: Performed By: #### 1 9123-9, 47699-6, CMP, 25921-2, 41015-5, CBCA, 5643-2, PINR #### [facility] ([id number]) [address] [place] [address] Protein Ql (U) Negative Normal NEG [facility] Comment on above: Performed By: #### 1 9123-9, 09450-7, CMP, 80392-4, 38552-8, CBCA, 5643-2, PINR #### [facility] ([id number]) [address] [place] [address] Specific gravity (U) [Rel density] 1.025 Normal 1.003-1.[address] [facility] Comment on above: Performed By: #### 1 9123-9, 62459-6, CMP, 13797-1, 68992-8, CBCA, 5643-2, PINR #### [facility] ([id number]) [address] [place] [address] TURBIDITY CLEAR Normal CLEAR [facility] Comment on above: Performed By: #### 1 9123-9, 61679-9, CMP, 71146-7, 29278-4, CBCA, 5643-2, PINR #### [facility] ([id number]) [address] [place] [address] Urobilinogen Qn (U) 0.2 {Temo'U}/dL Normal <1.1 [facility] Comment on above: Performed By: #### 1 9123-9, 37293-6, CMP, 50953-8, 03827-3, CBCA, 5643-2, PINR #### [facility] ([id number]) [address] [place] [address] [place] [address] URN MACROSCOPIC NURon 2023 BILIRUBIN FRANKLIN Negative Normal NEG [facility] Comment on above: Performed By: #### N UM #### [facility] ([id number]) [address] [place] [address] [place] [address] BLOOD/HGB FRANKLIN Negative Normal NEG [facility] Comment on above: Performed By: #### N UM #### [facility] ([id number]) [address] [place] [address] [place] [address] GLUCOSE FRANKLIN Negative Normal NEG [facility] Comment on above: Performed By: #### N UM #### [facility] ([id number]) [address] [place] [address] [place] [address] KETONES FRANKLIN Negative Normal NEG [facility] Comment on above: Performed By: #### N UM #### [facility] ([id number]) [address] [place] [address] [place] [address] LEUKOCYTE ESTERASE FRANKLIN Negative Normal NEG Pr [facility] Comment on above: Performed By: #### N UM #### [facility] ([id number]) [address] [place] [address] [place] [address] NITRITE FRANKLIN Negative Normal NEG [facility] Comment on above: Performed By: #### N UM #### [facility] ([id number]) [address] [place] [address] [place] [address] PH FRANKLIN 5.5 Normal 5.0-8.5 [facility] Comment on above: Performed By: #### N UM #### [facility] ([id number]) [address] [place] [address] [place] [address] PROTEIN FRANKLIN Negative Normal NEG [facility] Comment on above: Performed By: #### N UM #### [facility] ([id number]) [address] [place] [address] SPECIFIC GRAVITY FRANKLIN 1.020 Normal 1.003-[address] [facility] Comment on above: Performed By: #### N UM #### [facility] ([id number]) [address] [place] [address] UROBILINOGEN FRANKLIN 0.2 eu/dL Normal <1.1 [facility] Comment on above: Performed By: #### N UM #### [facility] ([id number]) [address] [place] [address] aPTT Coag (PPP) [Time]on aPTT Coag (Bld) [Time] 33 s Normal 26-37 Pr [facility] Comment on above: Result Comment: NEW REFERENCE RANGE Performed By: #### 1 9123-9, 15073-9, CMP, 61699-2, 20958-9, CBCA, 5643-2, PINR #### [facility] ([id number]) [address] [place] [address] 36on 04-18-2024 36 From: Jessica muñoz MD Sent: 04/18/2024 12:32 PM EDT To: Yuridia Nuñez MA Subject: RE: Scan Please inform him that blood testing for clotting disorder is negative. He should follow up with Dr Godwin for cancer screening. Pt has been notified [facility] Office Visiton 04-06-2024 Follow-up visit [id number] Jeb Riddle 1950 M Date Provider Department Center 04/06/2024 JESSICA JAMISON [facility] Lori [facility] Family History Problem Relation Age of Onset Diabetes Mother Coronary artery disease Mother Heart attack Father Diabetes Father Coronary artery disease Father Family Status - Relation Status Age at Mother Father Level of Service:06197 [place] OFFICE/OUTPATIENT ESTABLISHED MOD MDM 30 MIN [facility] 36on 02-17-2024 36 Patient called back and said he is taking meds as prescribed at last visit with Dr. Forrester. I made him apt with Dr. Forrester end of Mar since he is not here in Apr. Normal [facility] 36on 02-15-2024 36 Regarding echo from 02/02/2024: MD Yuridia Herman MA Has he been taking meds as I recommended at last visit? 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 He should come for a visit in 3 months. LM w/ sister Mary to return my call. Normal [facility] Activated partial thrombopla stin time (aPTT) in platelet poor plasma by coagulation aOrdered By: Naima Boyd on 01-09-2024 aPTT Coag (PPP) [Time] 29.1 s 25.1-36.5 [facility] Comment on above: A hematocrit value g reater than 55% may lead to inaccurate results in coagulation testing. Patients having hematocrit values >55% require a special collection tube for coagulation studies. Please contact the laboratory at [phone] for redraw instructions. B-Type Natriuretic Peptideon 01-09-2024 Natriuretic peptide B (Bld) [Mass/Vol] 172.0 pg/mL High 5-100 [facility] Comment on above: Result Comment: PERF ORMED BY: [facility] [address] [place] [id number] PATHOLOGIST TEST CONDUCTOR RADHA BARRON M.D. Performed By: #### B MOTEL MAID, HS TROP, BMP, CK, DIFF CBC ####[place] [id number] [facility] Basic Metabolic Panelon 12-14 Anion gap [Moles/Vol] Not performed Normal 6.0-15.0 [facility] Comment on above: Performed By: #### B MOTEL MAID, HS TROP, BMP, CK, DIFF CBC ####[address] Calcium [Mass/Vol] 8.7 mg/dL Normal 8.6-10.3 [facility] Comment on above: Performed By: #### B MOTEL MAID, HS TROP, BMP, CK, DIFF CBC ####[address] Chloride [Moles/Vol] 109 mmol/L High 98-107 [facility] Comment on above: Performed By: #### B MOTEL MAID, HS TROP, BMP, CK, DIFF CBC ####[address] CO2 [Moles/Vol] 22.4 mmol/L Normal 21.0-31.0 [facility] Comment on above: Performed By: #### B MOTEL MAID, HS TROP, BMP, CK, DIFF CBC ####[place] [address] [facility] Creatinine [Mass/Vol] 1.16 mg/dL Normal 0.70-1.30 [facility] Comment on above: Performed By: #### B MOTEL MAID, HS TROP, BMP, CK, DIFF CBC ####[address] Creatinine Clr Calc Pharmacy 64.96 Normal [facility] Comment on above: Result Comment: PERF ORMED BY: [facility] [address] [place] [address] PATHOLOGIST TEST CONDUCTOR RADHA BARRON M.D. Performed By: #### B MOTEL MAID, HS TROP, BMP, CK, DIFF CBC ####[address] GFR/1.73 sq M.predicted MDRD (S/P/Bld) [Vol rate/Area] mL/min/{1.73_m2} Normal [facility] Comment on above: Performed By: #### B MOTEL MAID, HS TROP, BMP, CK, DIFF CBC ####[place] [address] [facility] Glucose [Mass/Vol] 95 mg/dL Normal 70-100 [facility] Comment on above: Result Comment: [place] Glucose Reference Range is dependent on time and content of last meal. Glucose of more than 200 mg/dL in a nonstressed, ambulatory subject supports the diagnosis of Diabetes Mellitus. ADA recommended reference range Performed By: #### B MOTEL MAID, HS TROP, BMP, CK, DIFF CBC ####[place] [address] Potassium Normal 3.5-5.1 [facility] Comment on above: Result Comment: Spec imen hemolyzed, redraw requested Performed By: #### B MOTEL MAID, HS TROP, BMP, CK, DIFF CBC ####[address] Sodium [Moles/Vol] 142 mmol/L Normal 136-145 [facility] Comment on above: Performed By: #### B MOTEL MAID, HS TROP, BMP, CK, DIFF CBC ####[place] [address] Urea nitrogen [Mass/Vol] 20 mg/dL Normal 7-25 [facility] Comment on above: Performed By: #### B MOTEL MAID, HS TROP, BMP, CK, DIFF CBC ####[address] Basophils Auto (Bld) [#/Vol] Ordered By: Naima Boyd on 01-09-2024 Basophils (Bld) [#/Vol] N/A [facility] Basophils/100 WBC Auto (Bld) Ordered By: Naima Bullimore on 01-09-2024 Basophils/100 WBC (Bld) N/A [facility] Basophils/100 WBC Manual cnt (Bld)Ordered By: Naima Godwinimore on 01-09-2024 Basophils/100 WBC (Bld) 0 % 0-2 [facility] CT angio chest PE protocolon 01-09-2024 CT angio chest PE protocol [facility] [address] [place] [address] CT Scan Report Signed Patient: Jeb Riddle MR#: [id number] : 1950 Acct:[id number] Age/Sex: 73 / M ADM Date: 01/09/24 Loc: ER Room: Type: [facility] ER Attending Dr: Copies to: SABA [...] Jeb Collins M.D.01/09/2024 6:17 PM Dictation Location: [place] [address] Transcribed By: [facility] 01/09/241816 Dictated By: Jeb Collins II, MD 01/09/241810 Signed By: 01/09/241816 Normal [facility] Calcium [Mass/volume] in Ser um or PlasmaOrdered By: Naima Boyd on 01-09-2024 Calcium [Mass/Vol] 8.7 mg/dL 8.6-10.3 [facility] Carbon dioxide, total [Moles /volume] in Serum or PlasmaOrdered By: Naima Boyd on 01-09-2024 CO2 [Moles/Vol] 22.4 mmol/L 21.0-31.0 [facility] Chloride [Moles/volume] in S pooja or PlasmaOrdered By: Naima Bullimore on 01-09-2024 Chloride [Moles/Vol] 109 mmol/L 98-107 [facility] Coagulation Profileon 2023 aPTT Coag (Bld) [Time] 29.1 s Normal 25.1-36.5 [facility] Comment on above: Order Comment: REDRA W Result Comment: A he matocrit value greater than 55% may lead to inaccurate results in coagulation testing. Patients having hematocrit values >55% require a special collection tube for coagulation studies. Please contact the laboratory at [phone] for redraw instructions. Performed By: #### P P, DDIMER ####[address] INR Coag (PPP) [Relative time] 1.0 {INR} Normal [facility] Comment on above: Order Comment: REDRA W [...] 4.5 Performed By: #### P P, DDIMER ####[place] [address] [facility] PT Coag (PPP) [Time] 11.9 s Normal 9.0-12.9 [facility] Comment on above: Order Comment: REDRA W Result Comment: A he matocrit value greater than 55% may lead to inaccurate results in coagulation testing. Patients having hematocrit values >55% require a special collection tube for coagulation studies. Please contact the laboratory at [phone] for redraw instructions. Performed By: #### P P, DDIMER ####[address] [address] [facility] Creatine Kinaseon 01-09-2024 CK [Catalytic activity/Vol] 81 U/L Normal 30-223 [facility] Comment on above: Performed By: #### B MOTEL MAID, HS TROP, BMP, CK, DIFF CBC ####[place] [address] [place] [id number] [facility] Creatine kinase [Enzymatic a ctivity/volume] in Serum or PlasmaOrdered By: Naima Bullimore on 01-09-2024 CK [Catalytic activity/Vol] 81 U/L - [facility] Creatinine [Mass/volume] in Serum or PlasmaOrdered By: [facility] Bullimore on 01-09-2024 Creatinine [Mass/Vol] 1.16 mg/dL 0.70-1.30 [facility] D-Dimer High Sensitivityon 0 01-09-2024 D-Dimer High Sensitivity 1905 ng/mL High 0-243 [facility] Comment on above: [...] coagulation studies. Please contact the laboratory at [phone] for redraw instructions. PERFORMED BY: [facility] [address] [place] [id number] PATHOLOGIST TEST CONDUCTOR RADHA BARRON M.D. Performed By: #### P P, DDIMER ####[place] [address] [place] [id number] [facility] Diff and CBCon 01-09-2024 Basophils/100 WBC (Bld) 0 % Normal 0-2 [facility] Comment on above: Performed By: #### B MOTEL MAID, HS TROP, BMP, CK, DIFF CBC ####[address] Eosinophils/100 WBC (Bld) 4 % High 1-3 [facility] Comment on above: Performed By: #### B MOTEL MAID, HS TROP, BMP, CK, DIFF CBC ####[address] Erythrocyte distribution width (RBC) [Ratio] 14.9 % High 12.0-14.8 [facility] Comment on above: Performed By: #### B MOTEL MAID, HS TROP, BMP, CK, DIFF CBC ####[address] Hematocrit (Bld) [Volume fraction] 41.9 % Normal 38.8-50.0 [facility] Comment on above: Performed By: #### B MOTEL MAID, HS TROP, BMP, CK, DIFF CBC ####[address] Hemoglobin (Bld) [Mass/Vol] 14.1 g/dL Normal 13.0-17.0 [facility] Comment on above: Performed By: #### B MOTEL MAID, HS TROP, BMP, CK, DIFF CBC ####[address] Lymphocytes/100 WBC (Bld) 27 % Normal 18-42 [facility] Comment on above: Performed By: #### B MOTEL MAID, HS TROP, BMP, CK, DIFF CBC ####[address] MCH (RBC) [Entitic mass] 32.0 pg Normal 27.5-35.2 [facility] Comment on above: Performed By: #### B MOTEL MAID, HS TROP, BMP, CK, DIFF CBC ####[address] MCV (RBC) [Entitic vol] 95.1 fL Normal 83.5-101 [facility] Comment on above: Performed By: #### B MOTEL MAID, HS TROP, BMP, CK, DIFF CBC ####[address] Mean Corpuscular HGB Conc 33.6 g/dL Normal 32.5-35.6 [facility] Comment on above: Performed By: #### B MOTEL MAID, HS TROP, BMP, CK, DIFF CBC ####[address] Monocytes/100 WBC (Bld) 25.58 % High 0.00-20.00 [facility] Comment on above: Result Comment: For adults in ED, MDW > 20.0 may be associated with a higher risk of sepsis during the first 12 hrs of hospital admission Performed By: #### B MOTEL MAID, HS TROP, BMP, CK, DIFF CBC ####[address] Monocytes/100 WBC (Bld) 7 % Normal 2-11 [facility] Comment on above: Performed By: #### B MOTEL MAID, HS TROP, BMP, CK, DIFF CBC ####[address] Nucleated Red Blood Cell 0 /100{WBC} Normal 0-0 [facility] Comment on above: Performed By: #### B MOTEL MAID, HS TROP, BMP, CK, DIFF CBC ####[address] Platelet Estimate Normal Normal Normal [facility] Comment on above: Performed By: #### B MOTEL MAID, HS TROP, BMP, CK, DIFF CBC ####[place] [address] [facility] Platelet mean volume (Bld) [Entitic vol] 8.6 fL Normal 6.6-10.1 [facility] Comment on above: Performed By: #### B MOTEL MAID, HS TROP, BMP, CK, DIFF CBC ####[place] [address] [facility] Platelet Morphology Normal Normal Normal [facility] Comment on above: Performed By: #### B MOTEL MAID, HS TROP, BMP, CK, DIFF CBC ####[address] Platelets (Bld) [#/Vol] 240 10*3/uL Normal 150-450 [facility] Comment on above: Performed By: #### B MOTEL MAID, HS TROP, BMP, CK, DIFF CBC ####[address] Plt Comment SEE COMMENT BELOW Normal [facility] Comment on above: Result Comment: NO C LOTS, NO CLUMPS, SHORT DRAW LFM PERFORMED BY: [facility] [address] [place] [address] PATHOLOGIST TEST CONDUCTOR RADHA BARRON M.D. Performed By: #### B MOTEL MAID, HS TROP, BMP, CK, DIFF CBC ####[address] RBC (Bld) [#/Vol] 4.41 10*6/uL Normal 3.90-5.60 [facility] Comment on above: Performed By: #### B MOTEL MAID, HS TROP, BMP, CK, DIFF CBC ####[address] RBC morphology finding Nom (Bld) Normal Normal Normal [facility] Comment on above: Performed By: #### B MOTEL MAID, HS TROP, BMP, CK, DIFF CBC ####[address] Segmented neutrophils/100 WBC (Bld) 62 % Normal 50-70 [facility] Comment on above: Performed By: #### B MOTEL MAID, HS TROP, BMP, CK, DIFF CBC ####[address] WBC (Bld) [#/Vol] 7.6 10*3/uL Normal 4.1-10.5 [facility] Comment on above: Performed By: #### B MOTEL MAID, HS TROP, BMP, CK, DIFF CBC ####[address] WBC (Bld) [#/Vol] 8.4 10*3/uL Normal 4.1-10.5 [facility] Comment on above: Performed By: #### B MOTEL MAID, HS TROP, BMP, CK, DIFF CBC ####[facility] [id number] ECG 12 lead ECGon 01-09-2024 ECG 12 lead ECG [facility] [address] [place] [address] Electrocardiograph Report Signed Patient: Jeb Riddle MR#: [id number] : 1950 Acct:[id number] Age/Sex: 73 / M ADM Date: 01/09/24 Loc: ER Room: Type: [facility] ER Attending Dr: Ordering Provider: SABA [...] By Adam Patterson DO 1828 Normal [facility] Eosinophils Auto (Bld) [#/Vo l]Ordered By: Naima Boyd on 01-09-2024 Eosinophils (Bld) [#/Vol] N/A [facility] Eosinophils/100 WBC Auto (Bl d)Ordered By: Naima Boyd on 01-09-2024 Eosinophils/100 WBC (Bld) N/A [facility] Eosinophils/100 WBC Manual c nt (Bld)Ordered By: Naima Boyd on 01-09-2024 Eosinophils/100 WBC (Bld) 4 % 1-3 [facility] Erythrocyte distribution wid th Auto (RBC) [Ratio]Ordered By: Naima Boyd on 01-09-2024 Erythrocyte distribution width (RBC) [Ratio] 14.9 % 12.0-14.8 [facility] Fibrin D-dimer [Presence] in Platelet poor plasma by Latex agglutinationOrdered By: Naima Boyd on 01-09-2024 Fibrin D-dimer LA Ql (PPP) 1905 ng/mL 0-243 [facility] Comment on above: The reference range for [...] coagulation studies. Please contact the laboratory at [phone] for redraw instructions. Glucose [Mass/volume] in Ser um or PlasmaOrdered By: Naima Boyd on 01-09-2024 Glucose [Mass/Vol] 95 mg/dL 70-100 [facility] Comment on above: ADA recommended refe rence rangeRandom Glucose Reference Range is dependent on time and content of last meal. Glucose of more than 200 mg/dL in a nonstressed, ambulatory subject supports the diagnosis of Diabetes Mellitus. Hematocrit Auto (Bld) [Volum e fraction]Ordered By: Naima Boyd on 01-09-2024 Hematocrit (Bld) [Volume fraction] 41.9 % 38.8-50.0 [facility] Hemoglobin [Mass/volume] in BloodOrdered By: Naima Boyd on 01-09-2024 Hemoglobin (Bld) [Mass/Vol] 14.1 g/dL 13.0-17.0 [facility] INR in Platelet poor plasma by Coagulation assayOrdered By: Naima Boyd on 01-09-2024 INR Coag (PPP) [Relative time] 1.0 {INR} [facility] Comment on above: INR Therapeutic Rang e [...] (Bld) [#/Vol] 7.6 10*3/uL 4.1-10.5 [facility] Lymphocytes Auto (Bld) [#/Vo l]Ordered By: Naima Boyd on 01-09-2024 Lymphocytes (Bld) [#/Vol] N/A [facility] Lymphocytes/100 WBC Auto (Bl d)Ordered By: Naima Boyd on 01-09-2024 Lymphocytes/100 WBC (Bld) N/A [facility] Lymphocytes/100 WBC Manual c nt (Bld)Ordered By: Naima Boyd on 01-09-2024 Lymphocytes/100 WBC (Bld) 27 % 18-42 [facility] MCH Auto (RBC) [Entitic mass ]Ordered By: Naima Boyd on 01-09-2024 MCH (RBC) [Entitic mass] 32.0 pg 27.5-35.2 [facility] MCHC Auto (RBC) [Mass/Vol]Or dered By: Naima Boyd on 01-09-2024 MCHC (RBC) [Mass/Vol] 33.6 g/dL 32.5-35.6 [facility] MCV Auto (RBC) [Entitic vol] Ordered By: Naima Boyd on 01-09-2024 MCV (RBC) [Entitic vol] 95.1 fL 83.5-101 [facility] Monocyte distribution width [Entitic volume] in Blood by AutomatedOrdered By: Naima Boyd on 01-09-2024 Monocyte distribution width Auto (Bld) [Entitic vol] 25.58 % 0.00-20.00 [facility] Comment on above: For adults in ED, MD W > 20.0 may be associated with a higher risk of sepsis during the first 12 hrs of hospital admission Monocytes Auto (Bld) [#/Vol] Ordered By: Naima Bullimore on 01-09-2024 Monocytes (Bld) [#/Vol] N/A [facility] Monocytes/100 WBC Auto (Bld) Ordered By: Naima Bullimore on 01-09-2024 Monocytes/100 WBC (Bld) N/A [facility] Monocytes/100 WBC Manual cnt (Bld)Ordered By: Naima Bullimore on 01-09-2024 Monocytes/100 WBC (Bld) 7 % 2-11 [facility] Natriuretic peptide B [Mass/ Vol]Ordered By: Naima Bullimore on 01-09-2024 Natriuretic peptide B (Bld) [Mass/Vol] 172.0 pg/mL 5-100 [facility] Neutrophils Auto (Bld) [#/Vo l]Ordered By: Naima Bullimore on 01-09-2024 Neutrophils (Bld) [#/Vol] N/A [facility] Neutrophils/100 WBC Auto (Bl d)Ordered By: Naima Bullimore on 01-09-2024 Neutrophils/100 WBC (Bld) N/A [facility] No Panel InformationOrdered By: Naima Rutherfordore on 01-09-2024 Estimated GFR (CKD-EPI) > 60.0 mL/Min [facility] Creatinine Clearance (Chem 64.96 [facility] Platelet Comment See comment below [facility] Comment on above: NO CLOTS, NO CLUMPS, SHORT DRAW LFM Nucleated RBC/100 WBC Manual cnt (Bld) [Ratio]Ordered By: Naima Bullimore on 01-09-2024 Nucleated RBC/100 WBC (Bld) [Ratio] 0 /100{WBC} 0-0 [facility] Nucleated erythrocytes [Pres ence] in Blood by Automated countOrdered By: Naimadevora Godwinimore on 01-09-2024 Nucleated RBC Auto Ql (Bld) N/A [facility] Platelet adequacy [Presence] in Blood by Light microscopyOrdered By: Naimadevora Godwinimore on 01-09-2024 Platelets LM Ql (Bld) Normal Normal [facility] Platelet mean volume Auto (B ld) [Entitic vol]Ordered By: Naima Godwinimore on 01-09-2024 Platelet mean volume (Bld) [Entitic vol] 8.6 fL 6.6-10.1 [facility] Platelet morphology finding [Identifier] in BloodOrdered By: Naima Bullimore on 01-09-2024 Platelet morphology finding Nom (Bld) Normal Normal [facility] Platelets Auto (Bld) [#/Vol] Ordered By: Naima Bullimore on 01-09-2024 Platelets (Bld) [#/Vol] 240 10*3/uL 150-450 [facility] Potassium [Moles/volume] in Serum or PlasmaOrdered By: Naima Bullimore on 01-09-2024 Potassium [Moles/Vol] 3.9 mmol/L 3.5-5.1 [facility] Prothrombin time (PT)Ordered By: Naima Bullimore on 01-09-2024 PT Coag (PPP) [Time] 11.9 s 9.0-12.9 [facility] Comment on above: A hematocrit value g reater than 55% may lead to inaccurate results in coagulation testing. Patients having hematocrit values >55% require a special collection tube for coagulation studies. Please contact the laboratory at [phone] for redraw instructions. RBC Auto (Bld) [#/Vol]Ordere d By: Naima Godwinimore on 01-09-2024 RBC (Bld) [#/Vol] 4.41 10*6/uL 3.90-5.60 [facility] RBC morphologyOrdered By: Sabine Boyd on 01-09-2024 RBC morphology finding Nom (Bld) Normal Normal [facility] Redraw Potassiumon 4 Potassium [Moles/Vol] 3.9 mmol/L Normal 3.5-5.1 [facility] Comment on above: Result Comment: PERF ORMED BY: [facility] [address] [place] [address] PATHOLOGIST TEST CONDUCTOR JIANLAN SUN M.D. Performed By: #### R EDRAW K ####[address] Segmented neutrophils/100 WB C Manual cnt (Bld)Ordered By: Naima Boyd on 01-09-2024 Segmented neutrophils/100 WBC (Bld) 62 % 50-70 [facility] Serum or plasma anion gap de terminationOrdered By: Naima Boyd on 01-09-2024 Anion gap [Moles/Vol] TNP [facility] Comment on above: Test not performed Sodium [Moles/volume] in Ser um or PlasmaOrdered By: Naima Boyd on 01-09-2024 Sodium [Moles/Vol] 142 mmol/L 136-145 [facility] Troponin I High Sensitivityo n 01-09-2024 Troponin I High Sensitivity 13.1 pg/mL Normal 0.0-20.0 [facility] Comment on above: Result Comment: PERF ORMED BY: [place] [address] PATHOLOGIST TEST CONDUCTOR RADHA BARRON M.D. Performed By: #### H S TROP #### [facility] [address] [place] [address] Troponin I High Sensitivity 12.5 pg/mL Normal 0.0-20.0 [facility] Comment on above: Result Comment: PERF ORMED BY: [place] [address] PATHOLOGIST TEST CONDUCTOR RADHA BARRON M.D. Performed By: #### B MOTEL MAID, HS TROP, BMP, CK, DIFF CBC ####[facility] [id number] Troponin I.cardiac [Mass/vol ume] in Serum or Plasma by Detection limit <= 0.01 ng/Ordered By: Naima Boyd on 01-09-2024 Troponin I.cardiac DL <= 0.01 ng/mL [Mass/Vol] 13.1 pg/mL 0.0-20.0 [facility] Urea nitrogen [Mass/volume] in Serum or PlasmaOrdered By: Naima Godwinimjeremias on 01-09-2024 Urea nitrogen [Mass/Vol] 20 mg/dL 03-08 [facility] WBC Auto (Bld) [#/Vol]Ordere d By: Naima Boyd on 01-09-2024 WBC (Bld) [#/Vol] 8.4 10*3/uL 4.1-10.5 [facility] XR chest 2V*on 01-09-2024 XR chest 2V* [facility] Main [address] [address] XRay Report Signed Patient: Jeb Riddle MR#: [id number] : 1950 Acct:[id number] Age/Sex: 73 / M ADM Date: 01/09/24 Loc: ER Room: Type: [facility] ER Attending Dr: Copies to: SABA [...] Jeb Collins M.D.01/09/2024 4:11 PM Dictation Location: [place] [address] Transcribed By: [facility] 01/09/24 1611 Dictated By: Jeb Collins II, MD 01/09/24 1610 Signed By: 01/09/24 1611 Normal [facility] ECG 12 lead ECGon 12-18-2023 ECG 12 lead ECG [address] [address] Electrocardiograph Report Signed Patient: Jeb Riddle MR#: [id number] : 1950 Acct:[id number] Age/Sex: 73 / M ADM Date: 12/18/23 Loc: ER Room: Type: [facility] ER Attending Dr: Ordering Provider: Marie Garrison [...] was found Confirmed by RAMIRO CORTEZ DO ([id number]) on 12/18/2023 4:44:01 PM Referred By: Electronically Signed By:RAMIRO CORTEZ DO Transcribed By: MUS Signed By Ramiro Cortez DO 12/17 1644 Normal [facility] Office Visiton 12-09-2023 Follow-up visit [id number] Jeb Riddle 1950 M Date Provider Department Center 12/09/2023 JESSICA JAMISON [facility] Family History Problem Relation Age of Onset Diabetes Mother Coronary artery disease Mother Heart attack Father Diabetes Father Coronary artery disease Father Family Status - Relation Status Age at Mother Father Level of Service:68799 [place] OFFICE/OUTPATIENT ESTABLISHED MOD MDM 30 MIN Reason for Visit and Comments: Follow-up [363818] - 6 months Normal [facility] Activated partial thrombopla stin time (aPTT) in platelet poor plasma by coagulation aOrdered By: Ramiro Cortez on 03-03-2023 aPTT Coag (PPP) [Time] 29.7 s 25.1-36.5 [facility] B-Type Natriuretic Peptideon 03-03-2023 Natriuretic peptide B (Bld) [Mass/Vol] 52.0 pg/mL Normal 5-100 [facility] Comment on above: Result Comment: PERF ORMED BY: [facility] [address] [place] [address] PATHOLOGIST TEST CONDUCTOR RADHA BARRON M.D. Performed By: #### C BC, CK, PT, PTT, BMP, HS TROP, BNP ####[address] Basic Metabolic Panelon 07-2 -2022 Anion gap [Moles/Vol] 10.6 mmol/L Normal 6.0-15.0 [facility] Comment on above: Performed By: #### C BC, CK, PT, PTT, BMP, HS TROP, BNP ####[address] Calcium [Mass/Vol] 8.6 mg/dL Normal 8.6-10.3 [facility] Comment on above: Performed By: #### C BC, CK, PT, PTT, BMP, HS TROP, BNP ####[address] Chloride [Moles/Vol] 108 mmol/L High 98-107 [facility] Comment on above: Performed By: #### C BC, CK, PT, PTT, BMP, HS TROP, BNP ####[address] CO2 [Moles/Vol] 24.6 mmol/L Normal 21.0-31.0 [facility] Comment on above: Performed By: #### C BC, CK, PT, PTT, BMP, HS TROP, BNP ####[address] Creatinine [Mass/Vol] 1.19 mg/dL Normal 0.70-1.30 [facility] Comment on above: Performed By: #### C BC, CK, PT, PTT, BMP, HS TROP, BNP ####[address] Creatinine Clr Calc Pharmacy 55.29 Normal [facility] Comment on above: Result Comment: PERF ORMED BY: [facility] [address] [place] [address] PATHOLOGIST TEST CONDUCTOR RADHA BARRON M.D. Performed By: #### C BC, CK, PT, PTT, BMP, HS TROP, BNP ####[address] GFR/1.73 sq M.predicted MDRD (S/P/Bld) [Vol rate/Area] mL/min/{1.73_m2} Normal [facility] Comment on above: Performed By: #### C BC, CK, PT, PTT, BMP, HS TROP, BNP ####[place] [address] [address] Glucose [Mass/Vol] 93 mg/dL Normal 70-100 [facility] Comment on above: Result Comment: [facility] Glucose Reference Range is dependent on time and content of last meal. Glucose of more than 200 mg/dL in a nonstressed, ambulatory subject supports the diagnosis of Diabetes Mellitus. ADA recommended reference range Performed By: #### C BC, CK, PT, PTT, BMP, HS TROP, BNP ####[place] [address] [address] Potassium [Moles/Vol] 4.2 mmol/L Normal 3.5-5.1 [facility] Comment on above: Performed By: #### C BC, CK, PT, PTT, BMP, HS TROP, BNP ####[address] Sodium [Moles/Vol] 139 mmol/L Normal 136-145 [facility] Comment on above: Performed By: #### C BC, CK, PT, PTT, BMP, HS TROP, BNP ####[place] [address] [facility] Urea nitrogen [Mass/Vol] 17 mg/dL Normal 7-25 [facility] Comment on above: Performed By: #### C BC, CK, PT, PTT, BMP, HS TROP, BNP ####[place] [address] [facility] Basophils Auto (Bld) [#/Vol] Ordered By: Ramiro Cortez on 03-03-2023 Basophils (Bld) [#/Vol] 0.0 10*3/uL 0.0-0.2 [facility] Basophils/100 WBC Auto (Bld) Ordered By: Ramiro Cortez on 03-03-2023 Basophils/100 WBC (Bld) 0.4 % . [facility] Calcium [Mass/volume] in Ser um or PlasmaOrdered By: Ramiro Cortez on 03-03-2023 Calcium [Mass/Vol] 8.6 mg/dL 8.6-10.3 [facility] Carbon dioxide, total [Moles /volume] in Serum or PlasmaOrdered By: Ramiro Cortez on 03-03-2023 CO2 [Moles/Vol] 24.6 mmol/L 21.0-31.0 [facility] Chloride [Moles/volume] in S pooja or PlasmaOrdered By: Ramiro Cortez on 03-03-2023 Chloride [Moles/Vol] 108 mmol/L 98-107 [facility] Complete Blood Count Auto Di ffon 03-03-2023 Basophils (Bld) [#/Vol] 0.0 10*3/uL Normal 0.0-0.2 [facility] Comment on above: Result Comment: PERF ORMED BY: [place] [address] PATHOLOGIST TEST CONDUCTOR RADHA BARRON M.D. Performed By: #### C BC, CK, PT, PTT, BMP, HS TROP, BNP #### [address] Basophils/100 WBC (Bld) 0.4 % Normal . [facility] Comment on above: Performed By: #### C BC, CK, PT, PTT, BMP, HS TROP, BNP #### [address] Eosinophils (Bld) [#/Vol] 0.2 10*3/uL Normal 0.0-0.45 [facility] Comment on above: Performed By: #### C BC, CK, PT, PTT, BMP, HS TROP, BNP #### [address] Eosinophils/100 WBC (Bld) 2.4 % Normal . [facility] Comment on above: Performed By: #### C BC, CK, PT, PTT, BMP, HS TROP, BNP #### [address] Erythrocyte distribution width (RBC) [Ratio] 13.0 % Normal 12.0-14.8 [facility] Comment on above: Performed By: #### C BC, CK, PT, PTT, BMP, HS TROP, BNP #### [address] Hematocrit (Bld) [Volume fraction] 38.3 % Low 38.8-50.0 [facility] Comment on above: Performed By: #### C BC, CK, PT, PTT, BMP, HS TROP, BNP #### [address] Hemoglobin (Bld) [Mass/Vol] 12.9 g/dL Low 13.0-17.0 [facility] Comment on above: Performed By: #### C BC, CK, PT, PTT, BMP, HS TROP, BNP #### [address] Lymphocytes (Bld) [#/Vol] 2.6 10*3/uL Normal 1.00-4.8 [facility] Comment on above: Performed By: #### C BC, CK, PT, PTT, BMP, HS TROP, BNP #### [address] Lymphocytes/100 WBC (Bld) 28.3 % Normal . [facility] Comment on above: Performed By: #### C BC, CK, PT, PTT, BMP, HS TROP, BNP #### [address] MCH (RBC) [Entitic mass] 30.8 pg Normal 27.5-35.2 [facility] Comment on above: Performed By: #### C BC, CK, PT, PTT, BMP, HS TROP, BNP #### [address] MCV (RBC) [Entitic vol] 91.9 fL Normal 83.5-101 [facility] Comment on above: Performed By: #### C BC, CK, PT, PTT, BMP, HS TROP, BNP #### [place] [address] [place] Mean Corpuscular HGB Conc 33.6 g/dL Normal 32.5-35.6 [facility] Comment on above: Performed By: #### C BC, CK, PT, PTT, BMP, HS TROP, BNP #### [address] Monocytes (Bld) [#/Vol] 0.6 10*3/uL Normal 0.0-0.8 [facility] Comment on above: Performed By: #### C BC, CK, PT, PTT, BMP, HS TROP, BNP #### [address] Monocytes/100 WBC (Bld) 24.67 % High 0.00-20.00 [facility] Comment on above: Result Comment: For adults in ED, MDW > 20.0 may be associated with a higher risk of sepsis during the first 12 hrs of hospital admission Performed By: #### C BC, CK, PT, PTT, BMP, HS TROP, BNP #### [address] Monocytes/100 WBC (Bld) 6.5 % Normal . [facility] Comment on above: Performed By: #### C BC, CK, PT, PTT, BMP, HS TROP, BNP #### [address] Neutrophils (Bld) [#/Vol] 5.7 10*3/uL Normal 1.8-7.7 [facility] Comment on above: Performed By: #### C BC, CK, PT, PTT, BMP, HS TROP, BNP #### [address] Neutrophils/100 WBC (Bld) 62.4 % Normal . [facility] Comment on above: Performed By: #### C BC, CK, PT, PTT, BMP, HS TROP, BNP #### [address] NRBC% 0.1 /100{WBC} Normal 0-0.5 [facility] Comment on above: Performed By: #### C BC, CK, PT, PTT, BMP, HS TROP, BNP #### [facility] [address] Platelet mean volume (Bld) [Entitic vol] 8.2 fL Normal 6.6-10.1 [facility] Comment on above: Performed By: #### C BC, CK, PT, PTT, BMP, HS TROP, BNP #### [facility] [address] Platelets (Bld) [#/Vol] 234 10*3/uL Normal 150-450 [facility] Comment on above: Performed By: #### C BC, CK, PT, PTT, BMP, HS TROP, BNP #### [facility] [address] RBC (Bld) [#/Vol] 4.17 10*6/uL Normal 3.90-5.60 [facility] Comment on above: Performed By: #### C BC, CK, PT, PTT, BMP, HS TROP, BNP #### [facility] [address] WBC (Bld) [#/Vol] 9.2 10*3/uL Normal 4.1-10.5 [facility] Comment on above: Performed By: #### C BC, CK, PT, PTT, BMP, HS TROP, BNP #### [facility] [address] Creatine Kinaseon 03-03-2023 CK [Catalytic activity/Vol] 125 U/L Normal 30-223 [facility] Comment on above: Performed By: #### C BC, CK, PT, PTT, BMP, HS TROP, BNP ####[facility] [id number] [place] [address] [place] Creatine kinase [Enzymatic a ctivity/volume] in Serum or PlasmaOrdered By: Ramiro Cortez on 03-03-2023 CK [Catalytic activity/Vol] 125 U/L 30-223 [facility] Creatinine [Mass/volume] in Serum or PlasmaOrdered By: Ramiro Cortez on 03-03-2023 Creatinine [Mass/Vol] 1.19 mg/dL 0.70-1.30 [facility] ECG 12 lead ECGon 03-03-2023 ECG 12 lead ECG [facility] [place] [address] Electrocardiograph Report Signed Patient: Jeb Riddle MR#: [id number] : 1950 Acct:[id number] Age/Sex: 72 / M ADM Date: 03/03/23 Loc: ER Room: Type: [facility] ER Attending Dr: Ordering Provider: Ramiro Cortez [...] ECGs available Confirmed by RAMIRO CORTEZ DO ([id number]) on 03/03/2023 8:14:27 PM Referred By: Electronically Signed By:RAMIRO CORTEZ DO Transcribed By: MUS Signed By Ramiro Cortez DO 03/03 Normal [facility] Eosinophils Auto (Bld) [#/Vo l]Ordered By: Ramiro Cortez on 03-03-2023 Eosinophils (Bld) [#/Vol] 0.2 10*3/uL 0.0-0.45 [facility] Eosinophils/100 WBC Auto (Bl d)Ordered By: Ramiro Cortez on 03-03-2023 Eosinophils/100 WBC (Bld) 2.4 % . [facility] Erythrocyte distribution wid th Auto (RBC) [Ratio]Ordered By: Ramiro Cortez on 03-03-2023 Erythrocyte distribution width (RBC) [Ratio] 13.0 % 12.0-14.8 [facility] Glucose [Mass/volume] in Ser um or PlasmaOrdered By: Ramiro Cortez on 03-03-2023 Glucose [Mass/Vol] 93 mg/dL 70-100 [facility] Comment on above: ADA recommended refe rence rangeRandom Glucose Reference Range is dependent on time and content of last meal. Glucose of more than 200 mg/dL in a nonstressed, ambulatory subject supports the diagnosis of Diabetes Mellitus. Hematocrit Auto (Bld) [Volum e fraction]Ordered By: Ramiro Cortez on 03-03-2023 Hematocrit (Bld) [Volume fraction] 38.3 % 38.8-50.0 [facility] Hemoglobin [Mass/volume] in BloodOrdered By: Ramiro Cortez on 03-03-2023 Hemoglobin (Bld) [Mass/Vol] 12.9 g/dL 13.0-17.0 [facility] Laboratory - CoagulationOrde red By: Ramiro Cortez on 03-03-2023 PT Coag (PPP) [Time] 12.3 s 9.0-12.9 [facility] Leukocytes [#/volume] correc ava for nucleated erythrocytes in Blood by Automated counOrdered By: Ramiro Cortez on 03-03-2023 WBC corrected for nucl RBC Auto (Bld) [#/Vol] 9.2 10*3/uL 4.1-10.5 [facility] Lymphocytes Auto (Bld) [#/Vo l]Ordered By: Ramiro Cortez on 03-03-2023 Lymphocytes (Bld) [#/Vol] 2.6 10*3/uL 1.00-4.8 [facility] Lymphocytes/100 WBC Auto (Bl d)Ordered By: Ramiro Cortez on 03-03-2023 Lymphocytes/100 WBC (Bld) 28.3 % . [facility] MCH Auto (RBC) [Entitic mass ]Ordered By: Ramiro Cortez on 03-03-2023 MCH (RBC) [Entitic mass] 30.8 pg 27.5-35.2 [facility] MCHC Auto (RBC) [Mass/Vol]Or dered By: Ramiro Cortez on 03-03-2023 MCHC (RBC) [Mass/Vol] 33.6 g/dL 32.5-35.6 [facility] MCV Auto (RBC) [Entitic vol] Ordered By: Ramiro Cortez on 03-03-2023 MCV (RBC) [Entitic vol] 91.9 fL 83.5-101 [facility] Monocyte distribution width [Entitic volume] in Blood by AutomatedOrdered By: Ramiro Cortez on 03-03-2023 Monocyte distribution width Auto (Bld) [Entitic vol] 24.67 % 0.00-20.00 [facility] Comment on above: For adults in ED, MD W > 20.0 may be associated with a higher risk of sepsis during the first 12 hrs of hospital admission Monocytes Auto (Bld) [#/Vol] Ordered By: Ramiro Cortez on 03-03-2023 Monocytes (Bld) [#/Vol] 0.6 10*3/uL 0.0-0.8 [facility] Monocytes/100 WBC Auto (Bld) Ordered By: Ramiro Cortez on 03-03-2023 Monocytes/100 WBC (Bld) 6.5 % . [facility] Natriuretic peptide B [Mass/ Vol]Ordered By: Ramiro Cortez on 03-03-2023 Natriuretic peptide B (Bld) [Mass/Vol] 52.0 pg/mL 5-100 [facility] Neutrophils Auto (Bld) [#/Vo l]Ordered By: Ramiro Cortez on 03-03-2023 Neutrophils (Bld) [#/Vol] 5.7 10*3/uL 1.8-7.7 [facility] Neutrophils/100 WBC Auto (Bl d)Ordered By: Ramiro Cortez on 03-03-2023 Neutrophils/100 WBC (Bld) 62.4 % . [facility] No Panel InformationOrdered By: Ramiro Cortez on 03-03-2023 Estimated GFR (CKD-EPI) > 60.0 mL/Min [facility] Creatinine Clearance (Chem 55.29 [facility] Nucleated erythrocytes [Pres ence] in Blood by Automated countOrdered By: Ramiro Cortez on 03-03-2023 Nucleated RBC Auto Ql (Bld) 0.1 /100{WBC} 0-0.5 [facility] Partial Thromboplastin Timeo n 03-03-2023 aPTT Coag (Bld) [Time] 29.7 s Normal 25.1-36.5 [facility] Comment on above: Result Comment: PERF ORMED BY: [facility] [address] [place] [address] PATHOLOGIST TEST CONDUCTOR JIANLAN SUN M.D. Performed By: #### C BC, CK, PT, PTT, BMP, HS TROP, BNP #### [facility] [address] Platelet mean volume Auto (B ld) [Entitic vol]Ordered By: Ramiro Cortez on 03-03-2023 Platelet mean volume (Bld) [Entitic vol] 8.2 fL 6.6-10.1 [facility] Platelet poor plasma interna tional normalized ratio (INR) by coagulation assay (relatOrdered By: Ramiro Cortez on 03-03-2023 INR Coag (PPP) [Relative time] 1.1 {INR} [facility] Comment on above: INR Therapeutic Rang e [...] (Bld) [#/Vol] 234 10*3/uL 150-450 [facility] Potassium [Moles/volume] in Serum or PlasmaOrdered By: Ramiro Cortez on 03-03-2023 Potassium [Moles/Vol] 4.2 mmol/L 3.5-5.1 [facility] Prothrombin Time INRon 03-03 INR Coag (PPP) [Relative time] 1.1 {INR} Normal [facility] Comment on above: [...] PT, PTT, BMP, HS TROP, BNP #### [facility] [address] PT Coag (PPP) [Time] 12.3 s Normal 9.0-12.9 [facility] Comment on above: Performed By: #### C BC, CK, PT, PTT, BMP, HS TROP, BNP #### [facility] [address] RBC Auto (Bld) [#/Vol]Ordere d By: Ramiro Cortez on 03-03-2023 RBC (Bld) [#/Vol] 4.17 10*6/uL 3.90-5.60 [facility] Serum or plasma anion gap de terminationOrdered By: Ramiro Cortez on 03-03-2023 Anion gap [Moles/Vol] 10.6 mmol/L 6.0-15.0 [facility] Sodium [Moles/volume] in Ser um or PlasmaOrdered By: Ramiro Cortez on 03-03-2023 Sodium [Moles/Vol] 139 mmol/L 136-145 [facility] Troponin I High Sensitivityo n 03-03-2023 Troponin I High Sensitivity 7.6 pg/mL Normal 0.0-20.0 [facility] Comment on above: Result Comment: PERF ORMED BY: [facility] [address] [place] [address] PATHOLOGIST TEST CONDUCTOR RADHA BARRON M.D. Performed By: #### C BC, CK, PT, PTT, BMP, HS TROP, BNP ####[facility] [id number] Troponin I.cardiac [Mass/vol ume] in Serum or Plasma by Detection limit <= 0.01 ng/Ordered By: Ramiro Cortez on 03-03-2023 Troponin I.cardiac DL <= 0.01 ng/mL [Mass/Vol] 7.6 pg/mL 0.0-20.0 [facility] Urea nitrogen [Mass/volume] in Serum or PlasmaOrdered By: Ramiro Cortez on 03-03-2023 Urea nitrogen [Mass/Vol] 17 mg/dL 7-25 [facility] WBC Auto (Bld) [#/Vol]Ordere d By: Ramiro Cortez on 07-20-2023 WBC (Bld) [#/Vol] 9.2 10*3/uL 4.1-10.5 [facility] XR chest 2V*on 03-03-2023 XR chest 2V* [facility] Main [address] [address] XRay Report Signed Patient: Jeb Riddle MR#: [id number] : 1950 Acct:[id number] Age/Sex: 72 / M ADM Date: 03/03/23 Loc: ER Room: Type: [facility] ER Attending Dr: Copies to: Ramiro [...] Ivonne Zavala M.D.03/03/2023 12:46 PM Dictation Location: [place] [address] Transcribed By: [facility] 03/03/23 1246 Dictated By: Ivonne Zavala MD 03/03/23 1245 Signed By: 03/03/23 1246 Normal [facility] CBC AUTO DIFFon 01-11-2023 BASO # 0.0 103/ul Normal 0.0-0.1 [facility] Comment on above: Performed By: #### C BC #### [facility] [address] [place] [address] [address] Andrea Garcia Basophils/100 WBC (Bld) 0.0 % Critically low 0.2-2.0 [facility] Comment on above: Performed By: #### C BC #### [facility] [address] [place] [address] [address] Andrea Garcia EO # 0.0 103/ul Normal 0.0-0.7 [facility] Comment on above: Performed By: #### C BC #### [facility] [address] [place] [address] Dr. Andrea Garcia Eosinophils/100 WBC (Bld) 0.0 % Critically low 0.9-7.0 [facility] Comment on above: Performed By: #### C BC #### [facility] [address] [place] [address] Dr. Andrea Garcia Erythrocyte distribution width (RBC) [Ratio] 12.8 % Normal 11.0-15.0 [facility] Comment on above: Performed By: #### C BC #### [facility] [address] [place] [address] Dr. Andrea Garcia Hematocrit (Bld) [Volume fraction] 36.2 % Critically low 42.0-54.0 [facility] Comment on above: Performed By: #### C BC #### [facility] [address] [place] [address] Dr. Andrea Garcia Hemoglobin (Bld) [Mass/Vol] 12.8 g/dL Critically low 14.0-18.0 [facility] Comment on above: Performed By: #### C BC #### [facility] [address] [place] [address] Dr. Andrea Garcia IG # 0.03 10e3/ul Normal 0.00-0.03 [facility] Comment on above: Performed By: #### C BC #### [facility] [address] [place] [address] Dr. Andrea Garcia IG % 0.4 % Normal 0.0-0.5 [facility] Comment on above: Performed By: #### C BC #### [facility] [address] [place] [address] Dr. Andrea Garcia LYMPH # 1.1 103/ul Critically low 1.2-3.8 [facility] Comment on above: Performed By: #### C BC #### [facility] [address] [place] [address] Dr. Andrea Garcia Lymphocytes/100 WBC (Bld) 15.3 % Critically low 20.5-60.0 [facility] Comment on above: Performed By: #### C BC #### [facility] [address] [place] [address] Dr. Andrea Garcia MANUAL DIFF REQ NO Normal [facility] Comment on above: Performed By: #### C BC #### [facility] [address] [place] [address] Dr. Andrea Garcia MCH (RBC) [Entitic mass] 31.3 pg Normal 25.9-34.0 [facility] Comment on above: Performed By: #### C BC #### [facility] [address] [place] [address] Dr. Andrea Garcia MCHC (RBC) [Mass/Vol] 35.4 g/dL Critically high 29.9-35.2 [facility] Comment on above: Performed By: #### C BC #### [facility] [address] [place] [address] Dr. Andrea Garcia MCV (RBC) [Entitic vol] 88.5 fL Normal 80.0-94.0 [facility] Comment on above: Performed By: #### C BC #### [facility] [address] [place] [address] Dr. Andrea Garcia MONO # 0.1 103/ul Critically low 0.3-0.8 [facility] Comment on above: Performed By: #### C BC #### [facility] [address] [place] [address] Dr. Andrea Garcia Monocytes/100 WBC (Bld) 0.7 % Critically low 1.7-12.0 [facility] Comment on above: Performed By: #### C BC #### [facility] [address] [place] [address] Dr. Andrea Garcia NEUT # 6.0 103/ul Normal 1.4-6.5 [facility] Comment on above: Performed By: #### C BC #### [facility] [address] [place] [address] Dr. Andrea Garcia Neutrophils/100 WBC (Bld) 83.6 % Critically high 43.0-75.0 [facility] Comment on above: Performed By: #### C BC #### [facility] [address] [place] [address] [address] Andrea Garcia Platelet mean volume (Bld) [Entitic vol] 10.1 fL Normal 9.5-13.5 [facility] Comment on above: Performed By: #### C BC #### [facility] [address] [place] [address] Dr. Andrea Garcia PLT 216 103/ul Normal 150-450 [facility] Comment on above: Performed By: #### C BC #### [facility] [address] [place] [address] Dr. Andrea Garcia RBC 4.09 106/ul Critically low 4.70-6.10 [facility] Comment on above: Performed By: #### C BC #### [facility] [address] [place] [address] Dr. Andrea Garcia WBC 7.2 103/ul Normal 4.0-11.0 [facility] Comment on above: Performed By: #### C BC #### [facility] [address] [place] [address] Dr. Andrea Garcia PROF 14(COMP METB)on 023 Albumin [Mass/Vol] 2.8 g/dL Critically low 3.4-5.0 [facility] Comment on above: Performed By: #### C MP #### [facility] [address] [place] [address] Dr. Andrea Garcia Albumin/Globulin [Mass ratio] 0.8 {ratio} Normal [facility] Comment on above: Performed By: #### C MP #### [facility] [address] [place] [address] Dr. Andrea Garcia ALP [Catalytic activity/Vol] 64 U/L Normal 46-116 [facility] Comment on above: Performed By: #### C MP #### [facility] [address] [place] [address] Dr. Andrea Garcia ALT [Catalytic activity/Vol] 27 U/L Normal 16-63 [facility] Comment on above: Performed By: #### C MP #### [facility] [address] [address] [address] Andrea Garcia Anion gap [Moles/Vol] 12.9 mmol/L Normal [facility] Comment on above: Performed By: #### C MP #### [facility] [address] [address] [address] Andrea Garcia AST [Catalytic activity/Vol] 16 U/L Normal 15-37 [facility] Comment on above: Performed By: #### C MP #### [facility] [address] [address] [address] Andrea Garcia Bilirubin [Mass/Vol] 0.4 mg/dL Normal 0.2-1.0 [facility] Comment on above: Performed By: #### C MP #### [facility] [address] [place] [address] Dr. Andrea Garcia Calcium [Mass/Vol] 8.2 mg/dL Critically low 8.5-10.1 [facility] Comment on above: Performed By: #### C MP #### [facility] [address] [place] [address] Dr. Andrea Garcia Chloride [Moles/Vol] 107 mmol/L Normal 98-107 [facility] Comment on above: Performed By: #### C MP #### [facility] [address] [place] [address] Dr. Andrea Garcia CO2 [Moles/Vol] 24.2 mmol/L Normal 21.0-32.0 [facility] Comment on above: Performed By: #### C MP #### [facility] [address] [place] [address] Dr. Andrea Garcia Creatinine [Mass/Vol] 1.07 mg/dL Normal 0.70-1.30 [facility] Comment on above: Performed By: #### C MP #### [facility] [address] [place] [address] Dr. Andrea Garcia EGFR-AF CITIZEN [place] >60 Normal >=60 [facility] Comment on above: Performed By: #### C MP #### [facility] [address] [place] [address] Dr. Andrea Garcia EGFR-NON AF CITIZEN OF [place] >60 Normal >=60 [facility] Comment on above: Performed By: #### C MP #### [facility] [address] [place] [address] Dr. Andrea Garcia Globulin (S) [Mass/Vol] 3.5 g/dL Normal [facility] Comment on above: Performed By: #### C MP #### [facility] [address] [place] [address] Dr. Andrea Garcia Glucose [Mass/Vol] 164 mg/dL Critically high 74-106 [facility] Comment on above: Performed By: #### C MP #### [facility] [address] [place] [address] Dr. Andrea Garcia Potassium [Moles/Vol] 4.1 mmol/L Normal 3.5-5.1 [facility] Comment on above: Performed By: #### C MP #### [facility] [address] [place] [address] Dr. Andrea Garcia Protein [Mass/Vol] 6.3 g/dL Critically low 6.4-8.2 [facility] Comment on above: Performed By: #### C MP #### [facility] [address] [place] [address] Dr. Andrea Garcia Sodium [Moles/Vol] 140 mmol/L Normal 136-145 [facility] Comment on above: Performed By: #### C MP #### [facility] [address] [place] [address] Dr. Andrea Garcia Urea nitrogen [Mass/Vol] 16.0 mg/dL Normal 7.0-18.0 [facility] Comment on above: Performed By: #### C MP #### [facility] [address] [place] [address] Dr. Andrea Garcia Urea nitrogen/Creatinine [Mass ratio] 15.0 mg/mg Normal [facility] Comment on above: Performed By: #### C MP #### [facility] [address] [place] [address] Dr. Andrea Garcia XR KUB 1 VIEWon [...] ROBERT DAVENPORT Date: 2023-01-11 06:56 Normal [facility] AMYLASEon 01-10-2023 Amylase [Catalytic activity/Vol] 56 U/L Normal 25-115 [facility] Comment on above: Performed By: #### C MADM, CMP, DAMIEN, LIPA ####[facility] [address] [address]Dr. Andrea Garcia CARDIAC JEB 3-6on 3 CK [Catalytic activity/Vol] 92 U/L Normal 39-308 [facility] Comment on above: Performed By: #### C MREP #### [facility] [address] [address] [address] Andrea RUBALCAVA.MB [Mass/Vol] 1.66 ng/mL Normal <=3.60 [facility] Comment on above: Performed By: #### C MREP #### [facility] [address] [address] [address] Andrea Garcia HSTROP 12.8 pg/mL Normal 4.0-76.1 [facility] Comment on above: Result Comment: CUT- OFF POINTS HAVE BEEN ESTABLISHED BASED ON THE FOURTH UNIVERSAL DEFINITIONS OF MYOCARDIAL INFARCTION. THE UPPER REFERENCE LIMIT (URL) OF TROPONIN, DEFINED THE 99TH PERCENTILE OF cTnI DISTRIBUTION IN A REFERENCE POPULATION, HAS BEEN CONFIRMED THE DECISION THRESHOLD FOR UT DIAGNOSIS. Performed By: #### C MREP #### [facility] [address] [address] [address] Andrea Garcia CK [Catalytic activity/Vol] 72 U/L Normal 39-308 [facility] Comment on above: Performed By: #### C MREP #### [facility] [address] [address] [address] Yilan Garcia CK.MB [Mass/Vol] 1.89 ng/mL Normal <=3.60 [facility] Comment on above: Performed By: #### C MREP #### [facility] [address] [address] [address] Andrea Garcia HSTROP 13.5 pg/mL Normal 4.0-76.1 [facility] Comment on above: Result Comment: CUT- OFF POINTS HAVE BEEN ESTABLISHED BASED ON THE FOURTH UNIVERSAL DEFINITIONS OF MYOCARDIAL INFARCTION. THE UPPER REFERENCE LIMIT (URL) OF TROPONIN, DEFINED THE 99TH PERCENTILE OF cTnI DISTRIBUTION IN A REFERENCE POPULATION, HAS BEEN CONFIRMED THE DECISION THRESHOLD FOR UT DIAGNOSIS. Performed By: #### C MREP #### [facility] [address] [address] [address] Andrea Garcia CARDIAC JEB ADMITon 023 CK [Catalytic activity/Vol] 85 U/L Normal 39-308 [facility] Comment on above: Performed By: #### C MADM, CMP, DAMIEN, LIPA ####[facility] [address] [address]DrWilder Garcia CK.MB [Mass/Vol] 1.80 ng/mL Normal <=3.60 [facility] Comment on above: Performed By: #### C MADM, CMP, DAMIEN, LIPA ####[facility] [address] [address]DrWilder Garcia HSTROP 15.7 pg/mL Normal 4.0-76.1 [facility] Comment on above: Result Comment: CUT- OFF POINTS HAVE BEEN ESTABLISHED BASED ON THE FOURTH UNIVERSAL DEFINITIONS OF MYOCARDIAL INFARCTION. THE UPPER REFERENCE LIMIT (URL) OF TROPONIN, DEFINED THE 99TH PERCENTILE OF cTnI DISTRIBUTION IN A REFERENCE POPULATION, HAS BEEN CONFIRMED THE DECISION THRESHOLD FOR UT DIAGNOSIS. Performed By: #### C MADM, CMP, DAMIEN, LIPA ####[facility] [address] [address]DrWilder Garcia MIQUEL 61 ng/mL Normal 16-96 [facility] Comment on above: Performed By: #### C MADM, CMP, DAMIEN, LIPA ####[facility] [address] [address]Dr. Andrea Garcia CBC AUTO DIFFon 01-10-2023 BASO # 0.0 103/ul Normal 0.0-0.1 [facility] Comment on above: Performed By: #### C BC ####[facility] [address] [address]Dr. Andrea Garcia Basophils/100 WBC (Bld) 0.5 % Normal 0.2-2.0 [facility] Comment on above: Performed By: #### C BC ####[facility] [address] [place], [place] [address]Dr. Andrea Garcia EO # 0.4 103/ul Normal 0.0-0.7 [facility] Comment on above: Performed By: #### C BC ####[facility] [address] [place], [place] [address]Dr. Andrea Garcia Eosinophils/100 WBC (Bld) 5.9 % Normal 0.9-7.0 [facility] Comment on above: Performed By: #### C BC ####[facility] [address] [place], [place] [address]Dr. Andrea Garcia Erythrocyte distribution width (RBC) [Ratio] 13.0 % Normal 11.0-15.0 [facility] Comment on above: Performed By: #### C BC ####[facility] [address] [place], [place] [address]Dr. Andrea Garcia Hematocrit (Bld) [Volume fraction] 40.0 % Critically low 42.0-54.0 [facility] Comment on above: Performed By: #### C BC ####[facility] [address] [place], [place] [address]Dr. Andrea Garcia Hemoglobin (Bld) [Mass/Vol] 13.4 g/dL Critically low 14.0-18.0 [facility] Comment on above: Performed By: #### C BC ####[facility] [address] [place], [place] [address]Dr. Andrea Garcia IG # 0.01 10e3/ul Normal 0.00-0.03 [facility] Comment on above: Performed By: #### C BC ####[facility] [address] [id number]. Andrea Garcia IG % 0.2 % Normal 0.0-0.5 [facility] Comment on above: Performed By: #### C BC ####[facility] [address] [id number]. Andrea Garcia LYMPH # 2.2 103/ul Normal 1.2-3.8 [facility] Comment on above: Performed By: #### C BC ####[facility] [address] [place], [place] [address]Dr. Andrea Garcia Lymphocytes/100 WBC (Bld) 33.2 % Normal 20.5-60.0 [facility] Comment on above: Performed By: #### C BC ####[facility] [address] [place], [place] [address]Dr. Andrea Garcia MANUAL DIFF REQ NO Normal [facility] Comment on above: Performed By: #### C BC ####[facility] [address] [place], [place] [address]Dr. Andrea Garcia MCH (RBC) [Entitic mass] 30.5 pg Normal 25.9-34.0 [facility] Comment on above: Performed By: #### C BC ####[facility] [address] [place], [place] [address]Dr. Andrea Garcia MCHC (RBC) [Mass/Vol] 33.5 g/dL Normal 29.9-35.2 [facility] Comment on above: Performed By: #### C BC ####[facility] [address] [place], [place] [address]Dr. Andrea Garcia MCV (RBC) [Entitic vol] 90.9 fL Normal 80.0-94.0 [facility] Comment on above: Performed By: #### C BC ####[facility] [address] [place], [place] [address]Dr. Andrea Jose MONO # 0.4 103/ul Normal 0.3-0.8 [facility] Comment on above: Performed By: #### C BC ####[facility] [address] [id number]. Andrea Garcia Monocytes/100 WBC (Bld) 6.0 % Normal 1.7-12.0 [facility] Comment on above: Performed By: #### C BC ####[facility] [address] [id number]. Andrea Garcia NEUT # 3.5 103/ul Normal 1.4-6.5 [facility] Comment on above: Performed By: #### C BC ####[facility] [address] [phone]. Andrea Garcia Neutrophils/100 WBC (Bld) 54.2 % Normal 43.0-75.0 [facility] Comment on above: Performed By: #### C BC ####[facility] [address] [phone]. Andrea Garcia Platelet mean volume (Bld) [Entitic vol] 9.7 fL Normal 9.5-13.5 [facility] Comment on above: Performed By: #### C BC ####[facility] [address] [id number]. Andrea Garcia PLT 225 103/ul Normal 150-450 [facility] Comment on above: Performed By: #### C BC ####[facility] [address] [phone]. Andrea Garcia RBC 4.40 106/ul Critically low 4.70-6.10 [facility] Comment on above: Performed By: #### C BC ####[facility] [address] [phone]. Andrea Garcia WBC 6.5 103/ul Normal 4.0-11.0 [facility] Comment on above: Performed By: #### C BC ####[facility] [address] [place], [place] [address]Dr. Andrea Garcia CT ABD/PELV W CONon 01-11-20 [...] ADITYA OATES Date: 2023-01-10 07:41 Normal [facility] CULTURE BLOODon 01-10-2023 Microscopic examination of blood, culture Culture Observations: NO GROWTH AT 36-48 HOURS. FINAL TO FOLLOW. Normal [facility] Comment on above: Performed By: #### B LDCX2 ####[facility] [address] [id number]. Anrdea Garcia Microscopic examination of blood, culture Culture Observations: NO GROWTH AT 36-48 HOURS. FINAL TO FOLLOW. Normal [facility] Comment on above: Performed By: #### B LDCX1 ####[facility] [address] [place], [place] [address]Dr. Andrea SCHAEFER URINE PROFILEon 3 Bilirubin Ql (U) Negative Normal NEGATIVE [facility] Comment on above: Performed By: #### U MICRO, ERUR #### [facility] [address] [place], [place] [address] Dr. Andrea Garcia Clarity (U) CLEAR Normal CLEAR [facility] Comment on above: Performed By: #### U MICRO, ERUR #### [facility] [address] [address] [address] Andrea Garcia Color (U) LT. YELLOW Normal YELLOW [facility] Comment on above: Performed By: #### U MICRO, ERUR #### [facility] [address] [address] [address] Andrea Garcia ERUAHD A micrscopic examina tion will be performed if indicated. Normal [facility] Comment on above: Performed By: #### U MICRO, ERUR #### [facility] [address] [address] [address] Andrea Garcia Glucose Ql (U) Negative Normal NEGATIVE [facility] Comment on above: Performed By: #### U MICRO, ERUR #### [facility] [address] [place] [address] Dr. Andrea Garcia Hemoglobin Ql (U) TRACE-INTACT Abnormal NEGATIVE [facility] Comment on above: Performed By: #### U MICRO, ERUR #### [facility] [address] [place] [address] Dr. Andrea Garcia Ketones Ql (U) Negative Normal NEGATIVE [facility] Comment on above: Performed By: #### U MICRO, ERUR #### [facility] [address] [place] [address] Dr. Andrea Garcia LEUKOCYTES Negative Normal NEGATIVE [facility] Comment on above: Performed By: #### U MICRO, ERUR #### [facility] [address] [address] [address] Andrea Garcia Nitrite Ql (U) Negative Normal NEGATIVE [facility] Comment on above: Performed By: #### U MICRO, ERUR #### [facility] [address] [address] [address] Andrea Garcia pH (U) 5.5 [pH] Normal 5-9 [facility] Comment on above: Performed By: #### U MICRO, ERUR #### [facility] [address] [place] [address] Dr. Andrea Garcia SPEC GRAVITY 1.015 Normal 1.005-<=1. 025 [facility] Comment on above: Performed By: #### U MICRO, ERUR #### [facility] [address] [address] [address] Andrea Garcia UA PROTEIN Negative Normal NEGATIVE/ TRACE [facility] Comment on above: Performed By: #### U MICRO, ERUR #### [facility] [address] [address] [address] Andrea Garcia UR MICRO IND INDICATED Normal [facility] Comment on above: Performed By: #### U MICRO, ERUR #### [facility] [address] [address] [address] Andrea Garcia Urobilinogen Qn (U) 0.2 {Temo'U}/dL Normal 0.2 - 1. 0 [facility] Comment on above: Performed By: #### U MICRO, ERUR #### [facility] [address] [place] [address] Dr. Andrea Garcia LACTATE/LACTIC ACIDon 2022 Lactate [Moles/Vol] 0.8 mmol/L Normal 0.4-2.0 [facility] Comment on above: Performed By: #### L ACT #### [facility] [address] [place] [address] Dr. Andrea Garcia Lactate [Moles/Vol] 0.9 mmol/L Normal 0.4-2.0 [facility] Comment on above: Performed By: #### L ACT #### [facility] [address] [place] [address] Dr. Andrea Garcia LIPASEon 01-10-2023 Lipase [Catalytic activity/Vol] 71.0 U/L Critically low 73.0-393.0 [facility] Comment on above: Performed By: #### C MADM, CMP, DAMIEN, LIPA ####[facility] [address] [address]Dr. Andrea Garcia PROF 14(COMP METB)on 023 Albumin [Mass/Vol] 3.2 g/dL Critically low 3.4-5.0 [facility] Comment on above: Performed By: #### C MADM, CMP, DAMIEN, LIPA ####[facility] [address] [address]Dr. Andrea Garcia Albumin/Globulin [Mass ratio] 0.9 {ratio} Normal [facility] Comment on above: Performed By: #### C MADM, CMP, DAMIEN, LIPA ####[facility] [address] [address]Dr. Andrea Garcia ALP [Catalytic activity/Vol] 68 U/L Normal 46-116 [facility] Comment on above: Performed By: #### C MADM, CMP, DAMIEN, LIPA ####[facility] [address] [address]Dr. Andrea Garcia ALT [Catalytic activity/Vol] 30 U/L Normal 16-63 [facility] Comment on above: Performed By: #### C MADM, CMP, DAMIEN, LIPA ####[facility] [address] [address]Dr. Andrea Garcia Anion gap [Moles/Vol] 14.2 mmol/L Normal [facility] Comment on above: Performed By: #### C MADM, CMP, DAMIEN, LIPA ####[facility] [address] [place], [place] [address]Dr. Andrea Garcia AST [Catalytic activity/Vol] 18 U/L Normal 15-37 [facility] Comment on above: Performed By: #### C MADM, CMP, DAMIEN, LIPA ####[facility] [address] [address]Dr. Andrea Garcia Bilirubin [Mass/Vol] 0.5 mg/dL Normal 0.2-1.0 [facility] Comment on above: Performed By: #### C MADM, CMP, DAMIEN, LIPA ####[facility] [address] [place], [place] [address]Dr. Andrea Garcia Calcium [Mass/Vol] 8.5 mg/dL Normal 8.5-10.1 [facility] Comment on above: Performed By: #### C MADM, CMP, DAMIEN, LIPA ####[facility] [address] [place], [place] [address]Dr. Andrea Garcia Chloride [Moles/Vol] 108 mmol/L Critically high 98-107 [facility] Comment on above: Performed By: #### C MADM, CMP, DAMIEN, LIPA ####[facility] [address] [address]Dr. Andrea Garcia CO2 [Moles/Vol] 22.1 mmol/L Normal 21.0-32.0 [facility] Comment on above: Performed By: #### C MADM, CMP, DAMIEN, LIPA ####[facility] [address] [address]Dr. Andrea Garcia Creatinine [Mass/Vol] 1.06 mg/dL Normal 0.70-1.30 [facility] Comment on above: Performed By: #### C MADM, CMP, DAMIEN, LIPA ####[facility] [address] [address]Dr. Andrea Garcia EGFR-AF [place]IZ[place] >60 Normal >=60 [facility] Comment on above: Performed By: #### C MADM, CMP, DAMIEN, LIPA ####[facility] [address] [address]Dr. Andrea Garcia EGFR-NON AF CITIZEN [place] >60 Normal >=60 [facility] Comment on above: Performed By: #### C MADM, CMP, DAMIEN, LIPA ####[facility] [address] [address]Dr. Andrea Garcia Globulin (S) [Mass/Vol] 3.5 g/dL Normal [facility] Comment on above: Performed By: #### C MADM, CMP, DAMIEN, LIPA ####[facility] [address] [address]Dr. Andrea Garcia Glucose [Mass/Vol] 110 mg/dL Critically high 74-106 [facility] Comment on above: Performed By: #### C MADM, CMP, DAMIEN, LIPA ####[facility] [address] [address]Dr. Andrea Garcia Potassium [Moles/Vol] 4.3 mmol/L Normal 3.5-5.1 [facility] Comment on above: Performed By: #### C MADM, CMP, DAMIEN, LIPA ####[facility] [address] [address]Dr. Andrea Garcia Protein [Mass/Vol] 6.7 g/dL Normal 6.4-8.2 [facility] Comment on above: Performed By: #### C MADM, CMP, DAMIEN, LIPA ####[facility] [address] [address]Dr. Andrea Garcia Sodium [Moles/Vol] 140 mmol/L Normal 136-145 [facility] Comment on above: Performed By: #### C MADM, CMP, DAMIEN, LIPA ####[facility] [address] [address]Dr. Andrea Garcia Urea nitrogen [Mass/Vol] 20.0 mg/dL Critically high 7.0-18.0 [facility] Comment on above: Performed By: #### C MADM, CMP, DAMIEN, LIPA ####[facility] [address] [address]Dr. Andrea Garcia Urea nitrogen/Creatinine [Mass ratio] 18.9 mg/mg Normal [facility] Comment on above: Performed By: #### C MADM, CMP, DAMIEN, LIPA ####[facility] [address] [address]Dr. Andrea Garcia URINE MICROSCOPIC ONLYon BACTERIA NONE SEEN Normal NONE SEEN [facility] Comment on above: Performed By: #### U MICRO, ERUR #### [facility] [address] [place] [address] Dr. Andrea Garcia Bacteria identified Cx Nom (U) NOT INDICATED Normal [facility] Comment on above: Performed By: #### U MICRO, ERUR #### [facility] [address] [place] [address] Dr. Andrea Garcia CAST NONE SEEN Normal NONE SEEN [facility] Comment on above: Performed By: #### U MICRO, ERUR #### [facility] [address] [place] [address] Dr. Andrea Garcia Crystals LM Nom (Urine sed) NONE SEEN Normal NONE SEEN [facility] Comment on above: Performed By: #### U MICRO, ERUR #### [facility] [address] [address] [address] Andrea Garcia Epithelial cells LM Ql (Urine sed) NONE SEEN Normal NONE SEEN /RARE [facility] Comment on above: Performed By: #### U MICRO, ERUR #### [facility] [address] [address] [address] Andrea Garcia MUCOUS NONE SEEN Normal NONE SEEN [facility] Comment on above: Performed By: #### U MICRO, ERUR #### [facility] [address] [place] [address] Dr. Andrea Garcia RBC 0-2 Normal 0-2 [facility] Comment on above: Performed By: #### U MICRO, ERUR #### [facility] [address] [place] [address] Dr. Andrea Garcia WBC 0-2 Abnormal NONE SEEN [facility] Comment on above: Performed By: #### U MICRO, ERUR #### [facility] [address] [place] [address] Dr. Andrea Garcia XR CHEST 1 Von 01-10-2023 XR CHEST 1 V Exam: Radiographs: X R CHEST 1 V Reason for exam: Nausea/vomiting Comparison: None IMPRESSION: Negative chest. Electronically authenticated by: ADITYA OATES Date: 2023-01-10 07:42 Normal [facility] MRI Soft Tissue Neck w/o + w [...] by KENN RAPHAEL on 10/06/2021 1605 Normal [facility] CT Soft Tissue Neck w/ Contr [...] by Que Greene on 09/29/2021 1013 Normal [facility] Vital Signs Date Time Vital Sign Value Performing Clinician Faci lity 09-19-2024 08:42-0500 Body mass index (BMI) [Ratio] 24.11 kg/m2 Maribel Bojorquez DO Work Phone: [facility] 09-19-2024 08:42-0500 Body weight 85.19 kg Christopher Reno DO Work Phone: [facility] 09-19-2024 08:42-0500 Diastolic blood pressure 76 mm[Hg] Christopher Reno DO Work Phone: [facility] 09-19-2024 08:42-0500 Heart rate 78 /min Christopher Reno DO Work Phone: [facility] 09-19-2024 08:42-0500 SaO2% (BldA) [Mass fraction] 96 % Christopher Reno DO Work Phone: [facility] 09-19-2024 08:42-0500 Systolic blood pressure 142 mm[Hg] Christopher Reno DO Work Phone: [facility] 01-09-2024 19:01-0400 Diastolic blood pressure 99 mm[Hg] MD Lauren Godwin Work Phone: [facility] 01-09-2024 19:01-0400 Heart rate 84 /min MD Lauren Godwin Work Phone: [facility] 01-09-2024 19:01-0400 Respiratory rate 18 /min MD Lauren Godwin Work Phone: [facility] 01-09-2024 19:01-0400 SaO2% (BldA) [Mass fraction] 97 % MD Lauren Godwin Work Phone: [facility] 01-09-2024 19:01-0400 Systolic blood pressure 190 mm[Hg] MD Lauren Godwin Work Phone: [facility] 01-09-2024 14:29-0400 Body height 187.96 cm MD Lauren Godwin Work Phone: [facility] 01-09-2024 14:29-0400 Body temperature 98.3 [degF] MD Lauren Godwin Work Phone: [facility] 01-09-2024 14:29-0400 Body weight 83 kg MD Lauren Godwin Work Phone: [facility] 12-18-2023 13:10-0400 Heart rate 85 /min MD Lauren Godwin Work Phone: [facility] 12-18-2023 13:09-0400 Body temperature 97.9 [degF] MD Lauren Godwin Work Phone: [facility] 12-18-2023 13:09-0400 Diastolic blood pressure 77 mm[Hg] MD Lauren Godwin Work Phone: [facility] 12-18-2023 13:09-0400 Respiratory rate 18 /min MD Lauren Godwin Work Phone: [facility] 12-18-2023 13:09-0400 SaO2% (BldA) [Mass fraction] 97 % MD Lauren Godwin Work Phone: [facility] 12-18-2023 13:09-0400 Systolic blood pressure 161 mm[Hg] MD Lauren Godwin Work Phone: [facility] 12-18-2023 13:06-0400 Body height 186.69 cm MD Lauren Godwin Work Phone: [facility] 12-18-2023 13:06-0400 Body weight 81 kg MD Lauren Godwin Work Phone: [facility] 03-03-2023 13:30-0400 Diastolic blood pressure 100 mm[Hg] MD Lauren Godwin Work Phone: [facility] 03-03-2023 13:30-0400 Heart rate 59 /min MD Lauren Godwin Work Phone: [facility] 03-03-2023 13:30-0400 Respiratory rate 18 /min MD Lauren Godwin Work Phone: [facility] 03-03-2023 13:30-0400 SaO2% (BldA) [Mass fraction] 99 % MD Lauren Godwin Work Phone: [facility] 03-03-2023 13:30-0400 Systolic blood pressure 160 mm[Hg] MD Lauren Godwin Work Phone: [facility] 03-03-2023 11:36-0400 Body height 175.26 cm MD Lauren Godwin Work Phone: [facility] 03-03-2023 11:36-0400 Body temperature 98 [degF] MD Lauren Godwin Work Phone: [facility] 03-03-2023 11:36-0400 Body weight 84.3 kg MD Lauren Godwin Work Phone: [facility] Encounters Encounter Date Encounter Type Care Provider Facility Start: 11-14-2024 End: 11-14-[address] [facility] Start: 11-05-2024 End: 11-05-2024 ambulatory MARIBEL BOJORQUEZ Not Available Start: 10-02-2024 End: 10-02-2024 ambulatory CHRISTMADAIER RENO Not Available Start: 09-24-2024 End: 09-24-[address] [facility] Start: 09-19-2024 End: 09-19-2024 Bamboo flowsheet Christopher Reno DO Work Phone: [facility] Start: 09-19-2024 End: 09-19-2024 Bamboo flowsheet Christopher Reno DO Work Phone: [facility] Start: 09-19-2024 End: 09-19-2024 Office outpatient new 45 minutes Christopher Reno DO Work Phone: [facility] Comment on above: Loss of consciousnes s (CMS/HCC) (Primary Dx) Start: 09-19-2024 End: 09-19-2024 ambulatory MARIBEL BOJORQUEZ Not Available Start: 08-09-2024 End: 08-09-2024 Emergency department patient visit SHIV DICKERSON [facility] Start: 04-06-2024 End: 04-06-[address] [facility] Start: 01-09-2024 End: 01-09-2024 Emergency department patient visit Lauren Godwin Facility:[facility] Start: 01-09-2024 End: 01-09-2024 Emergency department patient visit MD Lauren Godwin Work Phone: [facility] Work Phone: Start: 12-18-2023 End: 12-18-2023 Emergency department patient visit Marie Phil Meli Facility:[facility] Start: 12-18-2023 End: 12-18-2023 Emergency department patient visit MD Lauren Godwin Work Phone: [facility] Work Phone: Start: 12-09-2023 End: 12-09-[address] [facility] Start: 03-03-2023 End: 03-03-2023 Emergency department patient visit Ramiro Cortez Facility:[facility] Start: 03-03-2023 End: 03-03-2023 Emergency department patient visit MD Lauren Godwin Work Phone: [facility] Work Phone: Start: 01-10-2023 End: 01-11-2023 Evaluation and management of inpatient DR DOCTOR VELAZCO Facility:H1 Procedures Date Procedure Procedure Detail Performing Clinician Start: 01-09-2024 CT angiography of thorax MD Lauren Godwin Work Phone: Start: 01-09-2024 Plain chest X-ray MD Valdivia Work Phone: Start: 03-03-2023 Plain chest X-ray MD Valdivia Work Phone: Plan of Treatment Date Care Activity Detail Author Start: 11-05-2024 End: 11-05-2024 Patient encounter procedure 11/05/2024 9:00 AM EDT Office Visit [facility] [address] [place] [phone] Maribel Bojorquez DO [address] [place] [address] [facility] Start: 09-20-2024 End: 09-20-2024 Clinical Support 09/20/2024 8:45 AM EST Clinical Support [facility] [address] [facility] [place] [id number] [facility] Start: 09-19-2024 End: 09-19-2025 EEG, Including Recording Awake or Asleep EEG, Including Recording Awake or Asleep Neurology Routine Loss of consciousness ([facility]) Expected: 09/19/2024 (Approximate), Expires: 09/19/2025 [facility] Work Phone: Comment on above: Expected: 09/19/2024 (Approximate), Expires: 09/19/2025 Start: 09-19-2024 End: 09-19-2024 Patient encounter procedure 09/19/2024 9:00 AM EST Office Visit [facility] [address] [facility] [place] [id number] Maribel Bojorquez DO [address] [facility] [place] [address] Arrived [facility] Comment on above: Arrived Start: 04-15-2024 Influenza vaccination Influenza Vacc ine (#1) [facility] Start: 12-18-2023 [facility] Start: 2014 Pneumococcal Vaccine : 65+ Years (1 of 1 - PCV) Pneumococcal Vaccine: 65+ Years (1 of 1 - PCV) [facility] Start: 1950 Screening for malign ant neoplasm of colon [facility] Healthcare Patient Education [facility] Work Phone: Patient referral [facility] Work Phone: Immunizations Immunization Date Immunization Notes Care Provider Fa cility 09-21-2023 influenza virus vaccine, unspecified formulation Maribel Bojorquez DO Work Phone: [facility] Healthcare Payers Date Payer Category Payer Medicare (Managed Care) [employer] [id number] 2023 Self-pay [id number] 2022 Unknown [id number] 1960 Medicare [id number] 1950 Unknown [id number] 1950 Unknown [id number] [id number] 1950 Unknown [id number] [id number] 1950 Unknown [id number] [id number] 1950 Unknown [id number] [id number] Unknown [id number]. [id number] Unknown [id number] [id number] Unknown [id number] [id number] Social History Date Type Detail Facility Start: 03-03-2023 End: 01-09-2024 Tobacco smoking status AZIS Ex-smoker (finding) [facility] Start: 1950 Sex Assigned At Male F [facility] Tobacco smoking status [facility] Tobacco smoking consumption unknown [facility] Start: 1950 Sex assigned at Not on file [facility] Gender identity Not on file [facility] are Progress note 11-14-2024 Note Date & Type Note Facility 11-14-2024 Note [place] [facility] - [facility] Subjective Jeb Riddle is a 74 y.o. year old male patient here for follow up per patient request. Patient had a recent ER visit for ;ow blood pressure. Per patient Dr. Godwin advised him to increased his clonidine to 2 in the am. Patient states it made him weak and dizzy and caused his blood pressure to become to low. Patient Active Problem List Diagnosis Unstable angina [...] Father Diabetes Father Coronary artery disease Father Pulmonary embolism Brother Social History Tobacco Use Smoking status: Former [...] He was admitted to the hospital at [facility] and was started on anticoagulation therapy. I [...] On 08/31/2024 he was admitted to the [facility] with small bowel obstruction secondary to his Crohn's disease and was placed on intravenous steroids. He responded to conservative management. During the hospitalization he developed an episode of SVT and hypertensive urgency with blood pressure over 220 mmHg systolic. He had mild elevation of high-sensitivity troponin which was felt related to the SVT representing supply/demand mismatch. His echocardiogram showed normal ventricular function. At last visit of 09/24/2024 I placed him back on Eliquis 2.5 mg twice daily due to history of unprovoked DVT. I asked for an event monitor to rule out recurrence of atrial flutter and it showed 4 episodes of SVT. He was evaluated in the emergency room at the [facility] on 11/02/2024 because of episode of near syncope while having bowel movement. Troponin was negative twice, ECG showed sinus rhythm, presentation was suspicious of vasovagal attack he was given intravenous hydration and discharged from the emergency room. Today 11/14/2024 he was evaluated in the emergency room at the [facility] because of dizziness after recent increase in clonidine dosage. His blood pressure was elevated at 178/86. His ECG showed sinus rhythm. CT head showed no acute pathology. High-sensitivity troponin was negative. He was discharged from the emergency room to follow-up as an outpatient. He says to me that when he woke up in the morning his blood pressure was around 150 systolic. He took increased dose of clonidine as per Dr. Godwin's recommendation and shortly after he felt palpitations and his blood pressure dropped to around 100 systolic. Outside of that event he says that he has been doing well and going to the gym and exercising but he does have shortness of breath on exertion and palpitations with exercise. Review of Systems Cardiovascular: Positive for dyspnea on exertion and irregular heartbeat (dizziness with exercise). Neurological: Positive for dizziness. All other systems reviewed and are negative. Objective Visit Vitals BP 142/81 (BP Location: Left arm, Patient Position: Sitting) Pulse 72 Ht 1.88 m (6' 2 ) Wt 83 kg (183 lb) SpO2 98% BMI 23.50 kg/m??? Smoking Status Former BSA 2.08 m??? Physical Exam Constitutional: Appearance: He is well-developed. He is not ill-appearing. HENT: Head: Normocephalic and atraumatic. Nose: Nose normal. Eyes: General: No scleral icterus. Pupils: Pupils are equal, round, and reactive to light. Neck: Thyroid: No thyromegaly. Vascular: No JVD. Cardiovascular: Rate and Rhythm: (more content not included)... [facility] Progress note 09-24-2024 Note Date & Type Note Facility 09-24-2024 Note [place] [facility] - [facility] Subjective Jeb Riddle [...] He was admitted to the hospital at [facility] and was started on anticoagulation therapy. I [...] On 08/31/2024 he was admitted to the [facility] with small bowel obstruction secondary to his [...] mononitrate ER (Imdu (more content not included)... 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 He had taken a Seroquel the night [...] 2 years. 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 LUE Strength deltoid , biceps , triceps , wrist extensors , wrist flexor , customer support engineer strength 5/5. RLE Strength illopsoas, quadriceps, [...] reflex 2+ . Reese's sign negative. Coordination: Kjikgb-xs-laki testing and rapid alternating movements are normal Gait: Normal Review and summary of old records: CT of the brain without contrast on 08/09/2024 with comparison to 07/14/2022: No acute intracranial pathology I have reviewed notations from [place] emergency department where this 73-year-old patient presented [...] orders for this visit: Loss of consciousness ([facility]) It is my impression that the patient [...] states he had a recent MRI at [facility] that was also unremarkable. He has no [...] and return instructions documented in this encounter [facility] Healthcare Progress note 04-06-2024 Note Date & Type Note Facility 04-06-2024 Note [place] [facility] - [facility] Subjective Jeb Riddle is a 73 y.o. year old male patient here for a follow up echo from January, he was amitted to [facility], for chest pain a couple weeks ago and had another echo. He had a lipid panel yesterday. At last appointment his statin was changed. 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 He still rides his bike to [employer] everyday, still active. Patient Active Problem List [...] He was admitted to the hospital at [facility] and was started on anticoagulation therapy. Today [...] metoprolol succinate XL (more content not included)... [facility] Progress note 12-09-2023 Note Date & Type Note Facility 12-09-2023 Note 8K can you read, out of the so I can make changes in [place] [facility] Subjective Jeb Riddle is a 73 [...] presented to the emergency room at the [facility] and investigation including a CT scan of [...] Rfl: 3 prav (more content not included)... [facility] Evaluation note Note Date & Type Note Facility Evaluation note No assessment information availa [facility] Work Phone: Evaluation note Note Date & Type Note Facility Evaluation note Diagnosis Loss of consciousness (CMS/HCC)- Primary Other alteration of consciousness documented in this encounter [facility] Discharge instructions Note Date & Type Note Facility Hospital Discharge instructions Additional Instructions Continue Pepcid once or twice a day as needed [place] diet Follow-up with your family doctor for recheck Return to the ER for worsening pain shortness of breath fever or any other concerns [facility] Work Phone: Reason for visit Narrative Consultation (Routine) - Closed Note Date & Type Note Facility Reason for visit Narrative Specialty Diagnoses / Procedures Referred By Contac t Referred To Contact Neurology Diagnoses Unspecified convulsions (CMS/HCC) Syncope and collapse Procedures [place] OFFICE/OUTPATIENT [facility] 30 MINUTES Lauren Godwin MD [address] [place] [address] Phone: tel:[phone] fax: Maribel Bojorquez DO [address] [place] [address] Phone: tel: fax: Referral ID Status Reason Start Date Expiration Date V isits Requested Visits Authorized [id number] Closed Consult and Treat 08/17/2024 02/13/2025 1 [...] section and content) DATE CREATED AUTHOR 10/07/2021 [facility] dical Specialist DATE CREATED AUTHOR AUTHOR'S ORGANIZ ATION 01/21/2023 [facility] DATE CREATED AUTHOR AUTHOR'S ORGANIZ ATION 01/09/2024 [facility] DATE CREATED AUTHOR AUTHOR'S ORGANIZ ATION 08/10/2024 [facility] DATE CREATED AUTHOR AUTHOR'S ORGANIZ ATION 11/05/2024 [facility] dical Specialists EPIC DATE CREATED AUTHOR AUTHOR'S ORGANIZ ATION 11/17/2024 [facility] Care Teams (unrecognized sec tion and [...] BE BASED ON THE PRIMARY CLINICAL RECORDS. [facility]. provides no warranty or guarantee of the accuracy or completeness of information in this document.
--- NOTE | 2024-11-25 15:25 | ECG_ITS ---
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 Measurements Intervals Walker Rate: 92 P: 66 AR: 176 QRS: 74 QRSD: 92 T: 73 QT: 360 QTc: 409 Interpretive Statements 1100 Sinus rhythm 9110 normal ECG Compared to ECG 11/14/2024 10:29:25 Sinus arrhythmia no longer present Electronically Signed On 11-26-2024 7:35:55 EDT by JESSICA FORRESTER M.D.
[2024-11-25 15:32] LABS: Basophils Percent Auto 0.2 % (0.2-2.0); Eosinophils Absolute Auto 0.2 10^3/uL (0.0-0.7); Eosinophils Percent Auto 3.2 % (0.9-7.0); Hematocrit 34.9 % (42.0-54.0); Hemoglobin 11.7 g/dL (14.0-18.0); Immature Granulocytes Abs Auto 0.02 10^3/uL (0.00-0.03); Immature Granulocytes Pct Auto 0.3 % (0.0-0.5); Lymphocytes Absolute Auto 1.9 10^3/uL (1.2-3.8); Lymphocytes Percent Auto 31.5 % (20.5-60.0); Mean Corpuscular HGB Conc 33.5 g/dL (29.9-35.2); Mean Corpuscular Hemoglobin 32.1 pg (25.9-34.0); Mean Corpuscular Volume 95.9 fL (80.0-94.0); Mean Platelet Volume 10.5 fL (9.5-13.5); Monocytes Absolute Auto 0.6 10^3/uL (0.3-0.8); Monocytes Percent Auto 9.7 % (1.7-12.0); Neutrophils Absolute Auto 3.2 10^3/uL (1.4-6.5); Neutrophils Percent Auto 55.1 % (43.0-75.0); Platelet Count 209 10^3/uL (150-450); Red Blood Count 3.64 10^6/uL (4.70-6.10); Red Cell Distribution Width 13.8 % (11.0-15.0); White Blood Count 5.9 10^3/uL (4.0-11.0)
--- NOTE | 2024-11-25 15:33 | ED_ITS ---
Documented by User: ENDY Pulido 11/25/24 17:32 HPI HPI - General Adult General Chief complaint: Dizziness Stated complaint: WEAKNESS, DIZZINESS, SHORTNESS OF BREATH Time Seen by Provider: 11/25/24 15:14 Source: patient Mode of arrival: Wheelchair History of Present Illness HPI narrative: Patient is a 74-year-old male presents to the ER with concerns of generalized weakness for the past 2 weeks and shortness of breath on exertion. He denies any chest pain. States he is on Eliquis as he recently had a Holter monitor that showed evidence of SVT at times. Patient sees [facility] cardiology. States he had a cardiac cath in 2022, also had a more recent cardiac echo in August 2024. 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 He has taken more recent doses as prescribed. His concern was that he had a prior PE in the past and this was part of his head of partner development concern to keep him on the medication. Patient states for the past 2 weeks since his last ER visit on November 14 he has just not be have been himself. He was noted to have some renal insufficiency at that time. Patient feels he may have suffered a heart attack earlier in the year and appears anxious about multiple things that could be affecting him. He has not hyperventilating at the bedside but rationally speaking through the things that can affect him at his age. He uses chewable nicotine, but denies any smoking. He reports his abdominal symptoms have been under control as of recent as he has a history of Crohn's and sometimes will be subjective to dehydration. Patient notes he typically can exercise vigorously 3 to 4 days a week and has not been able to tolerate this. He also notes frequent urination and admits to a history of enlarged prostate taking [id number] medication. He denies any fevers or chills. Medication adjusted earlier in the month for treatment of his hypertension. Dizziness is a vague feeling along with being weak and he underwent a CAT scan of his brain at last visit that was essentially unremarkable. Related Data Home Medications ?Medication ?Instructions ?Recorded ?Confirmed mesalamine 400 mg capsule (with 800 mg PO BID 02/25/23 11/25/24 delayed release tablets inside) ondansetron 8 mg disintegrating 8 mg PO Q8H PRN nausea and vomiting 09/02/23 11/25/24 tablet clonidine HCl 0.1 mg tablet 0.1 mg PO BID 03/19/24 11/25/24 apixaban 5 mg tablet (Eliquis) 2.5 mg PO BID 08/31/24 11/25/24 lorazepam 1 mg tablet (Ativan) 1 mg PO BID PRN anxiety 08/31/24 11/25/24 Previous Rx's ?Medication ?Instructions ?Recorded isosorbide mononitrate 30 mg 30 mg PO QAM #30 tabs 03/14/23 tablet,extended release 24 hr lisinopril 20 mg tablet 40 mg (2 x 20 mg) PO DAILY #60 tabs 09/03/24 Allergies Allergy/AdvReac Type Severity Reaction Status Date / Time Fish Containing Products AdvReac Severe Abdominal Verified 11/25/24 15:31 Pain Opioid HPI Opioid Management Most Recent Opioid Data: Last Pain Scale 10 08/31/24 02:56 08/31/24 Last ORT Total Score 0 08/31/24 08:04 08/31/24 Last ORT Risk Category Low Risk 08/31/24 08:04 08/31/24 Review of Systems ROS Constitutional Reports: fatigue; Denies: fever, chills or change in weight Eyes Denies: change in vision or blurry vision Ears, nose, mouth, and throat Denies: throat pain or neck pain Cardiovascular Reports: lightheadedness and shortness of breath with exertion; Denies: chest pain, palpitations, edema, swelling of feet/ankles, shortness of breath when lying down or leg pain with exertion Respiratory Denies: shortness of breath, cough or wheezing Gastrointestinal Reports: diarrhea (occ); Denies: abdominal pain, nausea, vomiting, coffee grounds in vomit or heartburn Genitourinary Reports: urinary frequency; Denies: painful urination or scrotal swelling Musculoskeletal Denies: back pain or neck pain Integumentary/Breast Denies: rash, itching, redness or skin pain Neurological Denies: headache or numbness in extremities Psychiatric Reports: anxiety; Denies: mood swings or panic attacks Endocrine Reports: excessive urination; Denies: excessive thirst or change in body appearance Hematologic/Lymphatic Denies: easy bruising or easy bleeding Allergic/Immunologic Denies: hives [facility] Medical History (Updated 11/25/24 @ 17:31 by ENDY Pulido) Small bowel obstruction ?K56.609 - Unspecified intestinal obstruction, unspecified as to partial versus complete obstruction (ICD-10) Abdominal pain ?R10.9 - Unspecified abdominal pain (ICD-10) Pulmonary embolism ?I26.99 - Other pulmonary embolism without acute cor pulmonale (ICD-10) Chest pain ?R07.9 - Chest pain, unspecified (ICD-10) Elevated blood pressure reading ?R03.0 - Elevated blood-pressure reading, without diagnosis of hypertension (ICD-10) Uncontrolled hypertension ?I10 - Essential (primary) hypertension (ICD-10) UTI (urinary tract infection) ?N39.0 - Urinary tract infection, site not specified (ICD-10) DVT (deep venous thrombosis) ?I82.409 - Acute embolism and thrombosis of unspecified deep veins of unspecified lower extremity (ICD-10) Dehydration ?E86.0 - Dehydration (ICD-10) DAVID (acute kidney injury) ?N17.9 - Acute kidney failure, unspecified (ICD-10) Abdominal pain ?R10.9 - Unspecified abdominal pain (ICD-10) Nausea & vomiting ?R11.2 - Nausea with vomiting, unspecified (ICD-10) Hypertension ?I10 - Essential (primary) hypertension (ICD-10) Crohn disease ?K50.90 - Crohn's disease, unspecified, without complications (ICD-10) Surgical History H/O hernia repair ?Z98.890 - Other specified postprocedural states (ICD-10) ?Z87.19 - Personal history of other diseases of the digestive system (ICD-10) History of bowel resection ?Z90.49 - Acquired absence of other specified parts of digestive tract (ICD- 10) Family History (Updated 03/13/23 @ 20:02 by Bita Cyr RN) Father Family history of COPD (chronic obstructive pulmonary disease) Family history of diabetes mellitus Family history of myocardial infarction Brother Family history of cancer Mother Family history of diabetes mellitus Other Family history of hypertension Social History Within the past year, how often did you have a drink containing alcohol: 2-3 times a week Within the past year, how many standard drinks containing alcohol did you have on a typical day: 1 or 2 Within the past year, how often did you have six or more drinks on one occasion: never Total score: 0 Score interpretation: A score less than 4 is consistent with normal alcohol consumption. 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 Little interest or pleasure in doing things: not at all Feeling down, depressed, or hopeless: not at all Feel stressed/tense/nervous/anxious/difficulty sleeping: not at all Do you think of yourself as: straight/heterosexual Gender Identity: male Exam Narrative Exam Narrative: Nurses notes and vital signs reviewed and patient is not hypoxic. General: The patient appears well and in no apparent distress. Patient is resting comfortably on cart. Skin: Warm, dry, no pallor noted. Head: Normocephalic, atraumatic Neck: Supple, trachea mid-line, no tenderness, no lymphadenopathy Eye: Pupils are equal, round and reactive to light, EOMI Ears, Nose, Mouth, and Throat: TM are clear, normal light reflex, oral mucosa is moist, no posterior oropharynx erythema or hypertrophy,, dentures Cardiovascular: Regular Rate and Rhythm Respiratory: Patient is in no distress, no accessory muscle use, lungs are clear to auscultation, no wheezing, rales or rhonchi. Chest Wall: no tenderness Back: non-tender, no CVA tenderness Musculoskeletal: normal ROM, no tenderness, no swelling GI: Normal bowel sounds, no tenderness to palpation, no masses appreciated. No rebound, guarding, or rigidity noted. Post surgial Surgical scars noted. Neurological: A&O x4 Psychiatric: Cooperative Constitutional Vital Signs, click to edit/add: Last Vital Signs Temp 98.2 F 11/25/24 14:55 Pulse 67 11/25/24 17:18 Resp 20 11/25/24 17:18 BP 128/69 11/25/24 17:18 Pulse Ox 98 11/25/24 17:18 O2 Del Method Room Air 11/25/24 17:18 Course Vital Signs Vital signs: Vital Signs Temperature 98.2 F 11/25/24 14:55 Pulse Rate 99 H 11/25/24 14:55 Respiratory Rate 18 11/25/24 14:55 Blood Pressure 180/92 H 11/25/24 14:55 Pulse Oximetry 99 11/25/24 14:55 Oxygen Delivery Method Room Air 11/25/24 14:55 Temperature 98.2 F 11/25/24 14:55 Pulse Rate 67 11/25/24 17:18 Respiratory Rate 20 11/25/24 17:18 Blood Pressure 128/69 11/25/24 17:18 Pulse Oximetry 98 11/25/24 17:18 Oxygen Delivery Method Room Air 11/25/24 17:18 Medical Decision Making MDM Narrative Medical decision making narrative: Patient presents with vague symptoms of fatigue, dyspnea on exertion and feeling lightheaded. Symptoms present for 2 weeks since his last visit to the ER on to CT of the head at that time was negative. Reviewed labs with some acute kidney injury. Patient will be hydrated here with 1 L IV fluid. Labs pending. We discussed his prior CT scan cardiac evaluation and compliance with blood thinning medication. PE would be less likely. I am concerned about his urinary symptoms known enlarged prostate on prior CAT scan and elevated PSA studies done in the past. Patient encouraged to further evaluate this with his family doctor and urology. We discussed the medication changes with cardiology prior to symptoms worsening as a try to control his hypertension. EKG without evidence of ST elevation and cardiac enzymes were checked today. 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 We discussed his prior testing compliance with his blood thinner I am encouraging him to follow-up with urology given blood in his urine current blood thinner use, prior noted peripelvic cyst and left renal cyst and enlarged prostate with prior elevated PSAs. He admits that he has been concerned regarding the whole prostate biopsy. But verbalized that this was not needed for more further evaluation if indicated by urology consult and follow-up with his family doctor. Patient will continue with p.o. fluids at home. We discussed continuing to monitor his blood pressure and medications. Chest x-ray today per radiologist shows no plain film evidence of acute call at cardiopulmonary process and 2 serial troponins were both within normal limits. The patient is to followup with primary care physician in next 2-3 days or to return to the emergency department should any of the signs or symptoms worsen or new symptoms develop. Patient had questions answered. The patient agrees with the following Diagnosis and Treatment plan and the patient will be discharged home. Lab Data Labs: Lab Results 11/25/24 11/25/24 Range/Units 15:10 16:35 WBC 5.9 (4.0-11.0) 10^3/uL RBC 3.64 L (4.70-6.10) 10^6/uL Hgb 11.7 L (14.0-18.0) g/dL Hct 34.9 L (42.0-54.0) % MCV 95.9 H (80.0-94.0) fL MCH 32.1 (25.9-34.0) pg MCHC 33.5 (29.9-35.2) g/dL RDW 13.8 (11.0-15.0) % Plt Count 209 (150-450) 10^3/uL MPV 10.5 (9.5-13.5) fL Neut % (Auto) 55.1 (43.0-75.0) % Lymph % (Auto) 31.5 (20.5-60.0) % Amelia % (Auto) 9.7 (1.7-12.0) % Eos % (Auto) 3.2 (0.9-7.0) % Baso % (Auto) 0.2 (0.2-2.0) % Neut # (Auto) 3.2 (1.4-6.5) 10^3/uL Lymph # (Auto) 1.9 (1.2-3.8) 10^3/uL Amelia # (Auto) 0.6 (0.3-0.8) 10^3/uL Eos # (Auto) 0.2 (0.0-0.7) 10^3/uL Baso # (Auto) 0.0 (0.0-0.1) 10^3/uL Abs Immat Gran (auto) 0.02 (0.00-0.03) 10^3/uL Imm/Tot Granulo (auto) 0.3 (0.0-0.5) % Sodium 139 (136-145) mmol/L Potassium 4.4 (3.5-5.1) mmol/L Chloride 107 (98-107) mmol/L Carbon Dioxide 18.9 L (21.0-32.0) mmol/L Anion Gap 17.5 BUN 31.0 H (7.0-18.0) mg/dL Creatinine 1.41 H (0.70-1.30) mg/dL Est GFR ( Amer) 59 L (>=60 mL/min/1.73m^2) Est GFR (Non-Af Amer) 49 L (>=60 mL/min/1.73m^2) BUN/Creatinine Ratio 22.0 Glucose 140 H (74-106) mg/dL Calcium 8.2 L (8.5-10.1) mg/dL Magnesium 1.3 L (1.8-2.4) mg/dL Total Bilirubin 0.4 (0.2-1.0) mg/dL AST 19 (15-37) U/L ALT 24 (16-63) U/L Alkaline Phosphatase 76 (46-116) U/L Total Creatine Kinase 76 (39-308) U/L CK-MB (CK-2) 1.64 (<=3.60) ng/mL Myoglobin 79 (16-96) ng/mL Troponin I High Sens 11.9 10.0 (4.0-76.1) pg/mL NT-Pro-B Natriuret Pep 579.0 (<=1800.0) pg/mL Total Protein 6.4 (6.4-8.2) g/dL Albumin 3.4 (3.4-5.0) g/dL Globulin 3.0 g/dL Albumin/Globulin Ratio 1.1 Lipase 31.0 (16.0-77.0) U/L TSH & Free T4 Interp 2.290 (0.358-3.740) uIU/mL Urine Color Lt. yellow (YELLOW) Urine Clarity Clear (CLEAR) Urine pH 6.0 (5.0-9.0) Ur Specific [place] 1.010 (1.005-1.025) Urine Protein Negative (NEG/TRACE) mg/dL Urine Glucose (UA) Negative (NEGATIVE) mg/dL Urine Ketones Negative (NEGATIVE) mg/dL Urine Occult Blood Moderate A (NEGATIVE) Urine Nitrite Negative (NEGATIVE) Urine Bilirubin Negative (NEGATIVE) Urine Urobilinogen 0.2 (0.2-1.0) EU/dL Ur Leukocyte Esterase Negative (NEGATIVE) Urine RBC 0-2 (0-2) #/HPF Urine WBC 0-2 A (NONE SEEN) #/HPF Ur Squamous Epith Cells None seen (NONE/RARE) #/LPF Urine Crystals None seen (None Seen) #/HPF Urine Bacteria None seen (NONE SEEN) #/HPF Urine Casts None seen (NONE SEEN) #/LPF Urine Mucus None seen (NONE SEEN) ECG Data Attestation: I personally reviewed and interpreted this ECG as follows: Interpretation: EKG interpretation: Emergency Department physician interpretation, normal sinus rhythm 92 , no ectopy, no ST segment elevation, normal axis. T wave inversion V1. Discharge Plan Discharge Chief Complaint: Dizziness Clinical Impression: HTN (hypertension), Dehydration, Generalized weakness, Enlarged prostate, Anemia Patient Disposition: Home, Self-Care Time of Disposition Decision: 17:31 Condition: Good Prescriptions / Home Meds: No Action isosorbide mononitrate 30 mg tablet extended release 24 hr 30 mg PO QAM Qty: 30 11RF ondansetron 8 mg tablet,disintegrating 8 mg PO Q8H PRN (Reason: nausea and vomiting) clonidine HCl 0.1 mg tablet 0.1 mg PO BID lorazepam [Ativan] 1 mg tablet 1 mg PO BID PRN (Reason: anxiety) Eliquis 5 mg Tablet 2.5 mg PO BID Rx Instructions: 10 mg a day for 1 week then 5 mg po BID lisinopril 20 mg Tablet 40 mg PO DAILY Qty: 60 12RF mesalamine 400 mg capsule (with del rel tablets) 800 mg PO BID Print Language: [place] Instructions: Enlarged Prostate (BPH) (ED), Weakness (ED) Referrals: Rodriguez Godwin MD [Primary Care Provider] - As soon as possible Jaun Landrum MD [Physician] - As soon as possible Discharge Date/Time: 11/25/24 17:57 Documented by User: David Michel MD 11/25/24 19:42 HPI HPI - General Adult General Chief complaint: Dizziness Stated complaint: WEAKNESS, DIZZINESS, SHORTNESS OF BREATH Time Seen by Provider: 11/25/24 15:14 Related Data Home Medications ?Medication ?Instructions ?Recorded ?Confirmed mesalamine 400 mg capsule (with 800 mg PO BID 02/25/23 11/25/24 delayed release tablets inside) ondansetron 8 mg disintegrating 8 mg PO Q8H PRN nausea and vomiting 09/02/23 11/25/24 tablet clonidine HCl 0.1 mg tablet 0.1 mg PO BID 03/19/24 11/25/24 apixaban 5 mg tablet (Eliquis) 2.5 mg PO BID 08/31/24 11/25/24 lorazepam 1 mg tablet (Ativan) 1 mg PO BID PRN anxiety 08/31/24 11/25/24 Previous Rx's ?Medication ?Instructions ?Recorded isosorbide mononitrate 30 mg 30 mg PO QAM #30 tabs 03/14/23 tablet,extended release 24 hr lisinopril 20 mg tablet 40 mg (2 x 20 mg) PO DAILY #60 tabs 09/03/24 Allergies Allergy/AdvReac Type Severity Reaction Status Date / Time Fish Containing Products AdvReac Severe Abdominal Verified 11/25/24 15:31 Pain Opioid HPI Opioid Management Most Recent Opioid Data: Last Pain Scale 10 08/31/24 02:56 08/31/24 Last ORT Total Score 0 08/31/24 08:04 08/31/24 Last ORT Risk Category Low Risk 08/31/24 08:04 08/31/24 PFSH PFSH Medical History (Updated 11/25/24 @ 17:31 by ENDY Pulido) Small bowel obstruction ?K56.609 - Unspecified intestinal obstruction, unspecified as to partial versus complete obstruction (ICD-10) Abdominal pain ?R10.9 - Unspecified abdominal pain (ICD-10) Pulmonary embolism ?I26.99 - Other pulmonary embolism without acute cor pulmonale (ICD-10) Chest pain ?R07.9 - Chest pain, unspecified (ICD-10) Elevated blood pressure reading ?R03.0 - Elevated blood-pressure reading, without diagnosis of hypertension (ICD-10) Uncontrolled hypertension ?I10 - Essential (primary) hypertension (ICD-10) UTI (urinary tract infection) ?N39.0 - Urinary tract infection, site not specified (ICD-10) DVT (deep venous thrombosis) ?I82.409 - Acute embolism and thrombosis of unspecified deep veins of unspecified lower extremity (ICD-10) Dehydration ?E86.0 - Dehydration (ICD-10) DAVID (acute kidney injury) ?N17.9 - Acute kidney failure, unspecified (ICD-10) Abdominal pain ?R10.9 - Unspecified abdominal pain (ICD-10) Nausea & vomiting ?R11.2 - Nausea with vomiting, unspecified (ICD-10) Hypertension ?I10 - Essential (primary) hypertension (ICD-10) Crohn disease ?K50.90 - Crohn's disease, unspecified, without complications (ICD-10) Surgical History H/O hernia repair ?Z98.890 - Other specified postprocedural states (ICD-10) ?Z87.19 - Personal history of other diseases of the digestive system (ICD-10) History of bowel resection ?Z90.49 - Acquired absence of other specified parts of digestive tract (ICD- 10) Family History (Updated 03/13/23 @ 20:02 by Bita Cyr RN) Father Family history of COPD (chronic obstructive pulmonary disease) Family history of diabetes mellitus Family history of myocardial infarction Brother Family history of cancer Mother Family history of diabetes mellitus Other Family history of hypertension Social History Within the past year, how often did you have a drink containing alcohol: 2-3 times a week Within the past year, how many standard drinks containing alcohol did you have on a typical day: 1 or 2 Within the past year, how often did you have six or more drinks on one occasion: never Total score: 0 Score interpretation: A score less than 4 is consistent with normal alcohol consumption. 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 Little interest or pleasure in doing things: not at all Feeling down, depressed, or hopeless: not at all Feel stressed/tense/nervous/anxious/difficulty sleeping: not at all Do you think of yourself as: straight/heterosexual Gender Identity: male Exam Constitutional Vital Signs, click to edit/add: Last Vital Signs Temp 98.2 F 11/25/24 14:55 Pulse 67 11/25/24 17:18 Resp 20 11/25/24 17:18 BP 128/69 11/25/24 17:18 Pulse Ox 98 11/25/24 17:18 O2 Del Method Room Air 11/25/24 17:18 Course Vital Signs Vital signs: Vital Signs Temperature 98.2 F 11/25/24 14:55 Pulse Rate 99 H 11/25/24 14:55 Respiratory Rate 18 11/25/24 14:55 Blood Pressure 180/92 H 11/25/24 14:55 Pulse Oximetry 99 11/25/24 14:55 Oxygen Delivery Method Room Air 11/25/24 14:55 Temperature 98.2 F 11/25/24 14:55 Pulse Rate 67 11/25/24 17:18 Respiratory Rate 20 11/25/24 17:18 Blood Pressure 128/69 11/25/24 17:18 Pulse Oximetry 98 11/25/24 17:18 Oxygen Delivery Method Room Air 11/25/24 17:18 Medical Decision Making MDM Narrative Medical decision making narrative: Patient presents with vague symptoms of fatigue, dyspnea on exertion and feeling lightheaded. Symptoms present for 2 weeks since his last visit to the ER on to CT of the head at that time was negative. Reviewed labs with some acute kidney injury. Patient will be hydrated here with 1 L IV fluid. Labs pending. We discussed his prior CT scan cardiac evaluation and compliance with blood thinning medication. PE would be less likely. I am concerned about his urinary symptoms known enlarged prostate on prior CAT scan and elevated PSA studies done in the past. Patient encouraged to further evaluate this with his family doctor and urology. We discussed the medication changes with cardiology prior to symptoms worsening as a try to control his hypertension. EKG without evidence of ST elevation and cardiac enzymes were checked today. 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 We discussed his prior testing compliance with his blood thinner I am encouraging him to follow-up with urology given blood in his urine current blood thinner use, prior noted peripelvic cyst and left renal cyst and enlarged prostate with prior elevated PSAs. He admits that he has been concerned regarding the whole prostate biopsy. But verbalized that this was not needed for more further evaluation if indicated by urology consult and follow-up with his family doctor. Patient will continue with p.o. fluids at home. We discussed continuing to monitor his blood pressure and medications. Chest x-ray today per radiologist shows no plain film evidence of acute call at cardiopulmonary process and 2 serial troponins were both within normal limits. The patient is to followup with primary care physician in next 2-3 days or to return to the emergency department should any of the signs or symptoms worsen or new symptoms develop. Patient had questions answered. The patient agrees with the following Diagnosis and Treatment plan and the patient will be discharged home. I, Dr Mihcel, have reviewed the above progress note and course of action in the ER; agree with the above. I have personally seen and evaluated this patient, gone over history and physical, and discussed disposition and treatment plan with the patient. I sat down and spoke to patient for 10 minutes at discharge. We discussed his hemoglobin level, discussed his BUN and creatinine. We discussed at length his PSA levels that were elevated in April. Dr. Godwin is recommended that he follow-up with urology which she has not yet. Patient is afraid of the pain of the biopsies of prostate if it is indicated. Patient is also to find out bad news of prostate cancer if he would have it. Patient understands the importance of doing this, and I tried to encourage him to call urology to make an appointment and follow through because if he does not things could be much worse down the road in the future. We also discussed depression. Patient has some stress anxiety, but significant depression since he lost his house in February. 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 Patient was thankful for time spent at bedside. Patient will follow-up with urology, he promised me. Patient also follow-up with Dr. Godwin for treatment for depression if indicated. Patient was thankful for time spent at bedside. Lab Data Labs: Lab Results 11/25/24 11/25/24 Range/Units 15:10 16:35 WBC 5.9 (4.0-11.0) 10^3/uL RBC 3.64 L (4.70-6.10) 10^6/uL Hgb 11.7 L (14.0-18.0) g/dL Hct 34.9 L (42.0-54.0) % MCV 95.9 H (80.0-94.0) fL MCH 32.1 (25.9-34.0) pg MCHC 33.5 (29.9-35.2) g/dL RDW 13.8 (11.0-15.0) % Plt Count 209 (150-450) 10^3/uL MPV 10.5 (9.5-13.5) fL Neut % (Auto) 55.1 (43.0-75.0) % Lymph % (Auto) 31.5 (20.5-60.0) % Amelia % (Auto) 9.7 (1.7-12.0) % Eos % (Auto) 3.2 (0.9-7.0) % Baso % (Auto) 0.2 (0.2-2.0) % Neut # (Auto) 3.2 (1.4-6.5) 10^3/uL Lymph # (Auto) 1.9 (1.2-3.8) 10^3/uL Amelia # (Auto) 0.6 (0.3-0.8) 10^3/uL Eos # (Auto) 0.2 (0.0-0.7) 10^3/uL Baso # (Auto) 0.0 (0.0-0.1) 10^3/uL Abs Immat Gran (auto) 0.02 (0.00-0.03) 10^3/uL Imm/Tot Granulo (auto) 0.3 (0.0-0.5) % Sodium 139 (136-145) mmol/L Potassium 4.4 (3.5-5.1) mmol/L Chloride 107 (98-107) mmol/L Carbon Dioxide 18.9 L (21.0-32.0) mmol/L Anion Gap 17.5 BUN 31.0 H (7.0-18.0) mg/dL Creatinine 1.41 H (0.70-1.30) mg/dL Est GFR ( Amer) 59 L (>=60 mL/min/1.73m^2) Est GFR (Non-Af Amer) 49 L (>=60 mL/min/1.73m^2) BUN/Creatinine Ratio 22.0 Glucose 140 H (74-106) mg/dL Calcium 8.2 L (8.5-10.1) mg/dL Magnesium 1.3 L (1.8-2.4) mg/dL Total Bilirubin 0.4 (0.2-1.0) mg/dL AST 19 (15-37) U/L ALT 24 (16-63) U/L Alkaline Phosphatase 76 (46-116) U/L Total Creatine Kinase 76 (39-308) U/L CK-MB (CK-2) 1.64 (<=3.60) ng/mL Myoglobin 79 (16-96) ng/mL Troponin I High Sens 11.9 10.0 (4.0-76.1) pg/mL NT-Pro-B Natriuret Pep 579.0 (<=1800.0) pg/mL Total Protein 6.4 (6.4-8.2) g/dL Albumin 3.4 (3.4-5.0) g/dL Globulin 3.0 g/dL Albumin/Globulin Ratio 1.1 Lipase 31.0 (16.0-77.0) U/L TSH & Free T4 Interp 2.290 (0.358-3.740) uIU/mL Urine Color Lt. yellow (YELLOW) Urine Clarity Clear (CLEAR) Urine pH 6.0 (5.0-9.0) Ur Specific [place] 1.010 (1.005-1.025) Urine Protein Negative (NEG/TRACE) mg/dL Urine Glucose (UA) Negative (NEGATIVE) mg/dL Urine Ketones Negative (NEGATIVE) mg/dL Urine Occult Blood Moderate A (NEGATIVE) Urine Nitrite Negative (NEGATIVE) Urine Bilirubin Negative (NEGATIVE) Urine Urobilinogen 0.2 (0.2-1.0) EU/dL Ur Leukocyte Esterase Negative (NEGATIVE) Urine RBC 0-2 (0-2) #/HPF Urine WBC 0-2 A (NONE SEEN) #/HPF Ur Squamous Epith Cells None seen (NONE/RARE) #/LPF Urine Crystals None seen (None Seen) #/HPF Urine Bacteria None seen (NONE SEEN) #/HPF Urine Casts None seen (NONE SEEN) #/LPF Urine Mucus None seen (NONE SEEN) Discharge Plan Discharge Chief Complaint: Dizziness Clinical Impression: HTN (hypertension), Dehydration, Generalized weakness, Enlarged prostate, Anemia Patient Disposition: Home, Self-Care Time of Disposition Decision: 17:31 Condition: Good Prescriptions / Home Meds: No Action isosorbide mononitrate 30 mg tablet extended release 24 hr 30 mg PO QAM Qty: 30 11RF ondansetron 8 mg tablet,disintegrating 8 mg PO Q8H PRN (Reason: nausea and vomiting) clonidine HCl 0.1 mg tablet 0.1 mg PO BID lorazepam [Ativan] 1 mg tablet 1 mg PO BID PRN (Reason: anxiety) Eliquis 5 mg Tablet 2.5 mg PO BID Rx Instructions: 10 mg a day for 1 week then 5 mg po BID lisinopril 20 mg Tablet 40 mg PO DAILY Qty: 60 12RF mesalamine 400 mg capsule (with del rel tablets) 800 mg PO BID Print Language: [place] Instructions: Enlarged Prostate (BPH) (ED), Weakness (ED) Referrals: Rodriguez Godwin MD [Primary Care Provider] - As soon as possible Jaun Landrum MD [Physician] - As soon as possible Discharge Date/Time: 11/25/24 17:57
[2024-11-25 15:36] LABS: Bilirubin Urine NEGATIVE (NEGATIVE); Blood Urine MODERATE (NEGATIVE); Clarity Urine CLEAR (CLEAR); Color Urine LT. YELLOW (YELLOW); Glucose Urine UA NEGATIVE (NEGATIVE); Ketones Urine NEGATIVE (NEGATIVE); Leukocyte Esterase Urine NEGATIVE (NEGATIVE); Nitrite Urine NEGATIVE (NEGATIVE); Protein Urine NEGATIVE (NEG/TRACE); Urobilinogen Urine 0.2 EU/dL (0.2-1.0)
[2024-11-25] MEDS: 0.9 % SODIUM CHLORIDE 1,000 ML 999 ML IV (15:48)
[2024-11-25] MEDS: IPRATROPIUM/ALBUTEROL SULFATE 3 ML AMPUL.NEB IH (15:48)
[2024-11-25 15:49] LABS: Bacteria Urine NONE SEEN #/HPF (NONE SEEN); Cast Seen? NONE SEEN #/LPF (NONE SEEN); Crystals Seen? None Seen #/HPF (None Seen); Mucus Urine NONE SEEN (NONE SEEN); RBC Urine 0-2 #/HPF (0-2); Squamous Epithelial Cell Urine NONE SEEN #/LPF (NONE/RARE); WBC Urine 0-2 #/HPF (NONE SEEN)
--- NOTE | 2024-11-25 15:59 | RESP.RT ---
given per nrsing
[2024-11-25 16:09] LABS: Creatine Kinase 76 U/L (39-308); Creatine Kinase MB 1.64 ng/mL (<=3.60); Myoglobin 79 ng/mL (16-96); Troponin I High Sensitivity 11.9 pg/mL (4.0-76.1)
[2024-11-25 16:25] LABS: Alanine Aminotransferase 24 U/L (16-63); Albumin Globulin Ratio 1.1; Albumin Level 3.4 g/dL (3.4-5.0); Alkaline Phosphatase 76 U/L (46-116); Anion Gap 17.5; Aspartate Amino Transferase 19 U/L (15-37); Bilirubin Total 0.4 mg/dL (0.2-1.0); Calcium 8.2 mg/dL (8.5-10.1); Carbon Dioxide 18.9 mmol/L (21.0-32.0); Chloride 107 mmol/L (98-107); Estimated GFR (African America 59 (>=60 mL/min/1.73m^2); Estimated GFR (Non-African Ame 49 (>=60 mL/min/1.73m^2); Glucose 140 mg/dL (74-106); Potassium 4.4 mmol/L (3.5-5.1); Sodium 139 mmol/L (136-145); Total Protein 6.4 g/dL (6.4-8.2)
[2024-11-25 16:31] LABS: Magnesium 1.3 mg/dL (1.8-2.4)
[2024-11-25 17:18] VITALS: BP 128/69; PULSE 67; O2SAT 98
== END 2024-11-25 17:57 | disposition home or self-care (01) ==
PROVIDERS: Personal Emergency Response Attendant; Emergency Provider Emergency Medicine; Family Provider Family Medicine; PCP Family Medicine
DX: E86.0 Dehydration (principal); D64.9 Anemia, unspecified; R53.1 Weakness; N40.1 Benign prostatic hyperplasia with lower urinary tract symptoms; R06.02 Shortness of breath; Z79.01 Long term (current) use of anticoagulants; Z86.711 Personal history of pulmonary embolism; F17.290 Nicotine dependence, other tobacco product, uncomplicated; K50.90 Crohn's disease, unspecified, without complications; R35.0 Frequency of micturition; I10 Essential (primary) hypertension; Z90.49 Acquired absence of other specified parts of digestive tract; Z59.89 Other problems related to housing and economic circumstances
CPT/HCPCS: 36415; 71046; 80053; 81001; 82550; 82553; 83690; 83735; 83874; 83880; 84443; 84484; 85025; 93005; 94640; 96360; 99285

== ENCOUNTER 2024-11-28 16:12 | Outpatient (OUT) | payer MEDICARE, SELFPAY ==
--- OUTSIDE RECORDS SUMMARY | 2024-11-28 16:26 | XMS_ITS | CCD ---
Author Organization [facility] Care Team Providers Care Skate Shop Attendant Name Role Phone DR BEHZAD CROCKER Primary Care Unavailable DANIEL ., JUNI Attending Unavailable DANIEL ., JUNI Admitting Unavailable DR ROBERT DAVENPORT V Consulting Unavailable PITER GROSSMAN Consulting Unavailable DANIEL ., JUNI Consulting Unavailable DIAB ., GRAYSON Consulting Unavailable ADITYA OATES Consulting Unavailable MD Lauren Godwin Primary Care Provider [phone] DO Ramiro Cortez Emergency Provider [phone] MD Lauren Godwin Primary Care Provider [phone] KYA Garrison Emergency Provider [phone] Bulldk, BRIDGE RIGGER-BC Naima Phelan Emergency Provider Lauren Godwin Primary [...] Propensity to adverse reactions 03-03-20 Gastrointestinal Upset [facility] (1 source) atorvastatin; Translations: [ATORVASTATIN] Drug Allergy 04-06-20 [facility] Repository Medications Current Medications Medication Drug Class(es) [...] disease (2 sources) Atherosclerotic heart disease of [place] coronary artery without angina pectoris; Translations: [Atherosclerotic heart disease of [place] coronary artery without angina pectoris] 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; convulsions (1 source) Unspecified convulsions; Translations: [Unspecified convulsions] Onset: 08-09-2024 Episodic Essential hypertension (3 sources) Essential (primary) hypertension; Translations: [ESSENTIAL PRIMARY HYPERTENSION] Onset: 01-12-2023 Chronic Other aftercare (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; Translations: [[facility] USE OF SYSTEMIC STEROIDS] Onset: 01-12-2023 Episodic Other aftercare (1 source) Other jail (current) drug therapy; Translations: [OTH [facility] CURRENT DRUG THERAPY] Onset: 01-12-2023 Episodic Other [...] Range Facility Office Visiton 11-14-2024 Follow-up visit [id number] Jeb Riddle 1950 M Date Provider Department Center 11/14/2024 JESSICA JAMISON [facility] Lori [facility] Family History Problem Relation Age of Onset Diabetes Mother Coronary artery disease Mother Heart attack Father Diabetes Father Coronary artery disease Father Pulmonary embolism Brother Family Status - Relation Status Age at Mother Father Brother Level of Service:32421 MO OFFICE/OUTPATIENT ESTABLISHED MOD MDM 30 MIN Normal [facility] Office Visiton 09-24-2024 Follow-up visit [id number] Jeb Riddle 1950 M Date Provider Department Center 09/24/2024 JESSICA JAMISON MISSY Sandoval [facility] Family History Problem Relation Age of Onset Diabetes Mother Coronary artery disease Mother Heart attack Father Diabetes Father Coronary artery disease Father Family Status - Relation Status Age at Mother Father Level of Service:43025 MO OFFICE/OUTPATIENT ESTABLISHED MOD MDM 30 MIN Normal [facility] CBC AND AUTO DIFFon 08-09-20 ABSOLUTE BASOPHIL 0.0 X10E9/L Normal 0.0-0.2 [facility] Comment on above: Performed By: #### 1 9123-9, 90837-0, CMP, 60974-6, 20580-2, CBCA, 5643-2, PINR #### [facility] ([id number]) [address] [place] [address], [place] [address] ABSOLUTE NEUTROPHIL 3.9 X10E9/L Normal 1.5-6.6 [facility] Comment on above: Performed By: #### 1 9123-9, 66855-3, CMP, 14858-3, 70110-9, CBCA, 5643-2, PINR #### [facility] ([id number]) [address] [place] [address] 31253 Basophils/100 WBC (Bld) 0.3 % Normal [facility] Comment on above: Performed By: #### 1 9123-9, 68805-3, CMP, 34966-2, 03524-6, CBCA, 5643-2, PINR #### [facility] ([id number]) [address] [place] [address] 76288 Eosinophils (Bld) [#/Vol] 0.1 10*3/uL Normal 0.0-0.4 [facility] Comment on above: Performed By: #### 1 9123-9, 78741-6, CMP, 97713-3, 72203-6, CBCA, 5643-2, PINR #### [facility] ([id number]) [address] [place] [address] 55645 Eosinophils/100 WBC (Bld) 1.4 % Normal [facility] Comment on above: Performed By: #### 1 9123-9, 46374-0, CMP, 27006-1, 07576-6, CBCA, 5643-2, PINR #### [facility] ([id number]) [address] [place] [address] 12297 Erythrocyte distribution width (RBC) [Ratio] 13.0 % Normal 11.5-15.0 [facility] Comment on above: Performed By: #### 1 9123-9, 24518-1, CMP, 69215-4, 12323-7, CBCA, 5643-2, PINR #### [facility] ([id number]) [address] [place] [address] 80854 Hematocrit (Bld) [Volume fraction] 35.7 % Low 39-49 [facility] Comment on above: Performed By: #### 1 9123-9, 08596-4, CMP, 67764-2, 08192-1, CBCA, 5643-2, PINR #### [facility] ([id number]) [address] [place] [address] 62895 Hemoglobin (Bld) [Mass/Vol] 12.3 g/dL Low 13.0-17.0 [facility] Comment on above: Performed By: #### 1 9123-9, 65700-5, CMP, 68853-2, 81007-1, CBCA, 5643-2, PINR #### [facility] ([id number]) [address] [place] [address] 35598 Lymphocytes (Bld) [#/Vol] 1.1 10*3/uL Normal 1.0-3.5 [facility] Comment on above: Performed By: #### 1 9123-9, 55611-4, CMP, 22870-5, 04445-4, CBCA, 5643-2, PINR #### [facility] ([id number]) [address] [place] [address] 73907 Lymphocytes/100 WBC (Bld) 21.0 % Normal [facility] Comment on above: Performed By: #### 1 9123-9, 32159-6, CMP, 74704-2, 74903-4, CBCA, 5643-2, PINR #### [facility] ([id number]) [address] [place] [address] 70644 MCH (RBC) [Entitic mass] 33.2 pg Normal 27-34 [facility] Comment on above: Performed By: #### 1 9123-9, 37248-1, CMP, 99951-8, 27530-3, CBCA, 5643-2, PINR #### [facility] ([id number]) [address] [place] [address] 07664 MCHC (RBC) [Mass/Vol] 34.3 g/dL Normal 32-36 [facility] Comment on above: Performed By: #### 1 9123-9, 23232-4, CMP, 00330-5, 94905-5, CBCA, 5643-2, PINR #### [facility] ([id number]) [address] [place] [address] 30780 MCV (RBC) [Entitic vol] 97 fL Normal 80-100 [facility] Comment on above: Performed By: #### 1 9123-9, 27764-1, CMP, 35173-3, 73978-5, CBCA, 5643-2, PINR #### [facility] ([id number]) [address] [place] [address] 61380 Monocytes (Bld) [#/Vol] 0.2 10*3/uL Normal 0-0.9 [facility] Comment on above: Performed By: #### 1 9123-9, 46836-7, CMP, 44978-7, 56796-0, CBCA, 5643-2, PINR #### [facility] ([id number]) [address] [place] [address] 08506 Monocytes/100 WBC (Bld) 4.5 % Normal [facility] Comment on above: Performed By: #### 1 9123-9, 35776-1, CMP, 45160-7, 09646-9, CBCA, 5643-2, PINR #### [facility] ([id number]) [address] [place] [address] 94090 Neutrophils/100 WBC (Bld) 72.8 % Normal [facility] Comment on above: Performed By: #### 1 9123-9, 86006-0, CMP, 55783-4, 59329-4, CBCA, 5643-2, PINR #### [facility] ([id number]) [address] [place] [address] 95731 Platelet mean volume (Bld) [Entitic vol] 7.7 fL Normal 7-12 [facility] Comment on above: Performed By: #### 1 9123-9, 02039-4, CMP, 18689-3, 89343-0, CBCA, 5643-2, PINR #### [facility] ([id number]) [address] [place] [address] 25070 Platelets (Bld) [#/Vol] 208 10*3/uL Normal 150-450 [facility] Comment on above: Performed By: #### 1 9123-9, 51405-2, CMP, 82177-7, 39476-7, CBCA, 5643-2, PINR #### [facility] ([id number]) [address] [place] [address] 51073 RBC COUNT 3.69 X10E12/L Low 4.10-5.70 [facility] Comment on above: Performed By: #### 1 9123-9, 91199-6, CMP, 24625-2, 04366-5, CBCA, 5643-2, PINR #### [facility] ([id number]) [address] [place] [address] 36135 WBC (Bld) [#/Vol] 5.4 10*3/uL Normal 4.0-11.0 [facility] Comment on above: Performed By: #### 1 9123-9, 85834-6, CMP, 50316-4, 90331-2, CBCA, 5643-2, PINR #### [facility] ([id number]) [address] [place] [address] 38107 COMPREHENSIVE METABOLIC PANE Morgan 08-09-2024 Albumin [Mass/Vol] 3.5 g/dL Normal 3.2-5.3 [facility] Comment on above: Performed By: #### 1 9123-9, 98294-9, CMP, 87786-2, 54924-2, CBCA, 5643-2, PINR #### [facility] ([id number]) [address] [place] [address] 13808 ALP [Catalytic activity/Vol] 56 U/L Normal 39-130 [facility] Comment on above: Performed By: #### 1 9123-9, 13156-5, CMP, 80043-6, 08229-9, CBCA, 5643-2, PINR #### [facility] ([id number]) [address] [place] [address] 13632 ALT [Catalytic activity/Vol] 25 U/L Normal 0-40 [facility] Comment on above: Performed By: #### 1 9123-9, 74105-9, CMP, 88645-6, 27151-7, CBCA, 5643-2, PINR #### [facility] ([id number]) [address] [place] [address] 57496 Anion gap [Moles/Vol] 7 mmol/L Normal 5-15 [facility] Comment on above: Performed By: #### 1 9123-9, 83572-9, CMP, 01288-2, 00417-3, CBCA, 5643-2, PINR #### [facility] ([id number]) [address] [place] [address] 61377 AST [Catalytic activity/Vol] 19 U/L Normal 0-41 [facility] Comment on above: Performed By: #### 1 9123-9, 90298-1, CMP, 43396-3, 68031-2, CBCA, 5643-2, PINR #### [facility] ([id number]) [address] [place] [address] 71893 Bilirubin [Mass/Vol] 0.4 mg/dL Normal 0.3-1.2 [facility] Comment on above: Performed By: #### 1 9123-9, 91549-0, CMP, 83450-5, 35230-8, CBCA, 5643-2, PINR #### [facility] ([id number]) [address] [place] [address] 58201 Calcium [Mass/Vol] 8.8 mg/dL Normal 8.5-10.5 [facility] Comment on above: Performed By: #### 1 9123-9, 81146-7, CMP, 00309-4, 31676-0, CBCA, 5643-2, PINR #### [facility] ([id number]) [address] [place] [address] 25054 Chloride [Moles/Vol] 108 mmol/L Normal 98-109 [facility] Comment on above: Performed By: #### 1 9123-9, 80983-4, CMP, 12407-1, 41768-1, CBCA, 5643-2, PINR #### [facility] ([id number]) [address] [place] [address] 38855 CO2 [Moles/Vol] 23 mmol/L Normal 22-32 [facility] Comment on above: Performed By: #### 1 9123-9, 39167-1, CMP, 61965-5, 43138-5, CBCA, 5643-2, PINR #### [facility] ([id number]) [address] [place] [address] 80207 Creatinine [Mass/Vol] 1.37 mg/dL High 0.70-1.20 [facility] Comment on above: Result Comment: METH OD TRACEABLE TO IDMS STANDARD Performed By: #### 1 9123-9, 98525-2, CMP, 28029-0, 75114-3, CBCA, 5643-2, PINR #### [facility] ([id number]) [address] [place] [address] 63021 GFR/1.73 sq M.predicted among non-blacks MDRD (S/P/Bld) [Vol rate/Area] 54 mL/min/{1.73_m2} Low >59 [facility] Comment on above: Result Comment: Reported eGFR is based on the CKD-EPI 2020 equation that does not use a race coefficient. Performed By: #### 1 9123-9, 11818-1, CMP, 72741-4, 42153-5, CBCA, 5643-2, PINR #### [facility] ([id number]) [address] [place] [address] 27027 Glucose [Mass/Vol] 155 mg/dL High 65-99 [facility] Comment on above: Performed By: #### 1 9123-9, 57180-9, CMP, 09867-3, 12707-4, CBCA, 5643-2, PINR #### [facility] ([id number]) [address] [place] [address] 30430 Potassium [Moles/Vol] 4.3 mmol/L Normal 3.5-5.0 [facility] Comment on above: Performed By: #### 1 9123-9, 23893-8, CMP, 69451-8, 13067-1, CBCA, 5643-2, PINR #### [facility] ([id number]) [address] [place] [address] 81013 Protein [Mass/Vol] 6.0 g/dL Normal 6.0-8.0 [facility] Comment on above: Performed By: #### 1 9123-9, 53559-3, CMP, 00688-6, 46110-3, CBCA, 5643-2, PINR #### [facility] ([id number]) [address] [place] [address] 73257 Sodium [Moles/Vol] 138 mmol/L Normal 134-146 [facility] Comment on above: Performed By: #### 1 9123-9, 28105-8, CMP, 96201-1, 64443-0, CBCA, 5643-2, PINR #### [facility] ([id number]) [address] [place] [address] 76948 Urea nitrogen [Mass/Vol] 25 mg/dL Normal 5- [facility] Comment on above: Performed By: #### 1 9123-9, 81268-0, CMP, 04407-0, 78377-1, CBCA, 5643-2, PINR #### [facility] ([id number]) [address] [place] [address] BRAIN WO CONTon CT BRAIN WO [...] Moran MD on 08/09/2024 12:54 PM Normal [facility] DRUG SCREEN, URINEon 024 AMPHETAMINE/METHAMP Negative Normal NEG [facility] Comment on above: Result Comment: AMPH /METH screening cut off = 1000 ng/mL Performed By: #### 1 9123-9, 78359-7, CMP, 95069-7, 58238-7, CBCA, 5643-2, PINR #### [facility] ([id number]) [address] [place] [address] 89184 BARBITURATES Negative Normal NEG [facility] Comment on above: Result Comment: Maria Eugenia iturates screening cut off value = 200 ng/mL Performed By: #### 1 9123-9, 43005-8, CMP, 43882-7, 80269-9, CBCA, 5643-2, PINR #### [facility] ([id number]) [address] [place] [address] 30945 BENZODIAZEPINES Negative Normal NEG [facility] Comment on above: Result Comment: Paulie odiazepines screening cut off value = 200 ng/mL Performed By: #### 1 9123-9, 23755-9, CMP, 94504-8, 03504-2, CBCA, 5643-2, PINR #### [facility] ([id number]) [address] [place] [address] 45821 CANNABINOIDS Negative Normal NEG [facility] Comment on above: Result Comment: Nora abinoids/THC screening cut off value = 50 ng/mL Performed By: #### 1 9123-9, 18938-7, CMP, 98066-3, 57941-6, CBCA, 5643-2, PINR #### [facility] ([id number]) [address] [place] [address] 09040 COCAINE METABOLITE Negative Normal NEG [facility] Comment on above: Result Comment: Coca ine screening cut off value = 300 ng/mL Performed By: #### 1 9123-9, 07017-5, CMP, 16687-9, 13419-4, CBCA, 5643-2, PINR #### [facility] ([id number]) [address] [place] [address] 26647 ECSTASY Negative Normal NEG [facility] Comment on above: Result Comment: Ecst asy screening cut off value = 500 ng/mL This report is intended for use in clinical monitoring or management of patients. Performed By: #### 1 9123-9, 37954-4, CMP, 38136-1, 73039-6, CBCA, 5643-2, PINR #### [facility] ([id number]) [address] [place] [address] 70639 METHADONE Negative Normal NEG [facility] Comment on above: Result Comment: Meth adone screening cut off value = 300 ng/mL. Performed By: #### 1 9123-9, 37810-6, CMP, 77810-9, 68384-1, CBCA, 5643-2, PINR #### [facility] ([id number]) [address] [place] [address] 36476 OPIATES Negative Normal NEG [facility] Comment on above: Result Comment: Opia brennen screening cut off value = 300 ng/mL NOTE: This test is used for the detection of codeine, hydrocodone (>1000 ng/mL), morphine and hydromorphone (>900 ng/mL) in urine. Performed By: #### 1 9123-9, 38042-1, CMP, 05289-4, 23407-7, CBCA, 5643-2, PINR #### [facility] ([id number]) [address] [place] [address] 23093 OXYCODONE Negative Normal NEG [facility] Comment on above: Result Comment: Oxyc odone screening cut off value = 300 ng/mL NOTE: This test is used for the detection of oxycodone and oxymorphone in urine. Performed By: #### 1 9123-9, 45002-4, [facility], 95899-2, 94560-3, CBCA, 5643-2, PINR #### [facility] ([id number]) [address] [place] [address] 22202 PHENCYCLIDINE Negative Normal NEG [facility] Comment on above: Result Comment: Phen cyclidine screening cut off value = 25 ng/mL Performed By: #### 1 9123-9, 64975-6, CMP, 89862-6, 29343-6, CBCA, 5643-2, PINR #### [facility] ([id number]) [address] [place] [address] 67982 ETHANOLon 08-09-2024 Ethanol [Mass/Vol] mg/dL Normal 0.00-0.08 [facility] Comment on above: Result Comment: This report is intended for use in clinical monitoring or management of patients. Performed By: #### 1 9123-9, 58452-5, [facility], 12167-2, 10874-5, CBCA, 5643-2, PINR #### [facility] ([id number]) [address] [place] [address] 57636 Fibrin D-dimer DDU (PPP) [Ma ss/Vol]on 08-09-2024 D DIMER 167 ng/mL DDU Normal <255 [facility] Comment on above: Result Comment: Results <255 ng/mL DDU: The presence of a VTE can safely be excluded with a negative D-Dimer result and Wells score. A negative result doesn't exclude the possibility of DIC. The test be repeated along with other diagnostic tests if the patient's symptoms persist or worsen. [email or web address] Performed By: #### 1 9123-9, 30684-4, [facility], 79143-6, 34394-1, CBCA, 5643-2, PINR #### [facility] ([id number]) [address] [place] [address] 96755 MAGNESIUMon 08-09-2024 Magnesium [Mass/Vol] 1.4 mg/dL Low 1.8-2.6 [facility] Comment on above: Performed By: #### 1 9123-9, 36944-5, [facility], 23490-5, 10091-1, CBCA, 5643-2, PINR #### [facility] ([id number]) [address] [place] [address] 19824 PROTIME AND INRon 08-09-2024 INR Coag (PPP) [Relative time] 1.2 {INR} High 0.8-1.1 [facility] Comment on above: Performed By: #### 1 9123-9, 99815-2, [facility], 98503-0, 21627-8, CBCA, 5643-2, PINR #### [facility] ([id number]) [address] [place] [address] 96649 PT Coag (PPP) [Time] 14.3 s High 9.8-13.2 [facility] Comment on above: Result Comment: NEW REFERENCE RANGE Performed By: #### 1 9123-9, 40855-8, CMP, 77495-7, 39566-8, CBCA, 5643-2, PINR #### [facility] ([id number]) [address] [place] [address] 74998 Troponin I.cardiac High sens itivity method [Mass/Vol]on 08-09-2024 1 HOUR TROP I, HIGH SENSITIVITY 10 ng/L Normal <21 [facility] Comment on above: Performed By: #### 1 9123-9, 62353-1, CMP, 28097-7, 43674-3, CBCA, 5643-2, PINR #### [facility] ([id number]) [address] [place] [address] 10088 TROPONIN I, HIGH SENSITIVITY 8 ng/L Normal <21 [facility] Comment on above: Performed By: #### 1 9123-9, 27190-3, CMP, 79304-5, 23316-9, CBCA, 5643-2, PINR #### [facility] ([id number]) [address] [place] [address] 88422 URINALYSISon 08-09-2024 Bilirubin Ql (U) Negative Normal NEG [facility] Comment on above: Performed By: #### 1 9123-9, 34055-6, CMP, 16423-9, 11822-2, CBCA, 5643-2, PINR #### [facility] ([id number]) [address] [place] [address] 91159 BLOOD/HGB Negative Normal NEG [facility] Comment on above: Performed By: #### 1 9123-9, 18612-1, CMP, 11290-0, 24242-5, CBCA, 5643-2, PINR #### [facility] ([id number]) [address] [place] [address] 79689 Color (U) YELLOW Normal YELLOW [facility] Comment on above: Performed By: #### 1 9123-9, 79554-1, CMP, 87755-1, 70193-6, CBCA, 5643-2, PINR #### [facility] ([id number]) [address] [place] [address] 95522 Glucose Ql (U) Negative Normal NEG [facility] Comment on above: Performed By: #### 1 9123-9, 06874-8, CMP, 06332-6, 21833-0, CBCA, 5643-2, PINR #### [facility] ([id number]) [address] [place] [address] [place] [address] Ketones Ql (U) Negative Normal NEG [facility] Comment on above: Performed By: #### 1 9123-9, 76421-0, CMP, 01943-4, 33749-0, CBCA, 5643-2, PINR #### [facility] ([id number]) [address] [place] [address] [place] [address] Leukocyte esterase Test strip Ql (U) Negative Normal NEG [facility] Comment on above: Performed By: #### 1 9123-9, 84389-6, CMP, 84510-8, 83325-6, CBCA, 5643-2, PINR #### [facility] ([id number]) [address] [place] [address] 43576 Nitrite Ql (U) Negative Normal NEG [facility] Comment on above: Performed By: #### 1 9123-9, 29836-3, CMP, 18291-5, 82165-9, CBCA, 5643-2, PINR #### [facility] ([id number]) [address] [place] [address] 19315 pH (U) 6.0 [pH] Normal 5.0-8.5 [facility] Comment on above: Performed By: #### 1 9123-9, 19421-6, CMP, 01231-4, 28217-6, CBCA, 5643-2, PINR #### [facility] ([id number]) [address] [place] [address] 98027 Protein Ql (U) Negative Normal NEG [facility] Comment on above: Performed By: #### 1 9123-9, 23214-2, CMP, 89204-6, 59897-0, CBCA, 5643-2, PINR #### [facility] ([id number]) [address] [place] [address]83 Specific gravity (U) [Rel density] 1.025 Normal 1.003-1.03 5 [facility] Comment on above: Performed By: #### 1 9123-9, 65179-8, CMP, 14792-2, 51792-2, CBCA, 5643-2, PINR #### [facility] ([id number]) [address] [place] [address] TURBIDITY CLEAR Normal CLEAR [facility] Comment on above: Performed By: #### 1 9123-9, 52437-5, CMP, 59783-2, 18496-8, CBCA, 5643-2, PINR #### [facility] ([id number]) [address] [place] [address]6574 Urobilinogen Qn (U) 0.2 {Temo'U}/dL Normal <1.1 [facility] Comment on above: Performed By: #### 1 9123-9, 94933-6, CMP, 17338-7, 70136-9, CBCA, 5643-2, PINR #### [facility] ([id number]) [address] [place] [address] [place] [address] URN MACROSCOPIC NURon 2023 BILIRUBIN FRANKLIN Negative Normal NEG [facility] Comment on above: Performed By: #### N UM #### [facility] ([id number]) [address] [place] [address] [place] [address] BLOOD/HGB FRANKLIN Negative Normal NEG [facility] Comment on above: Performed By: #### N UM #### [facility] ([id number]) [address] [place] [address] [place] [address] GLUCOSE FRANKLIN Negative Normal NEG [facility] Comment on above: Performed By: #### N UM #### [facility] ([id number]) [address] [place] [address] [place] [address] KETONES FRANKLIN Negative Normal NEG [facility] Comment on above: Performed By: #### N UM #### [facility] [facility] ([id number]) [address] [place] [address] [place] [address] LEUKOCYTE ESTERASE [place] Negative Normal NEG [facility] Comment on above: Performed By: #### N UM #### [facility] ([id number]) [address] [place] [address] [place] [address] NITRITE [place] Negative Normal NEG [facility] Comment on above: Performed By: #### N UM #### [facility] ([id number]) [address] [place] [address] [place] [address] PH [place] 5.5 Normal 5.0-8.5 [facility] Comment on above: Performed By: #### N UM #### [facility] ([id number]) [address] [place] [address] [place] [address] PROTEIN [place] Negative Normal NEG [facility] Comment on above: Performed By: #### N UM #### [facility] ([id number]) [address] [place] [address] SPECIFIC GRAVITY FRANKLIN 1.020 Normal 1.003-1 .03 5 [facility] Comment on above: Performed By: #### N UM #### [facility] ([id number]) [address] [place] [address] UROBILINOGEN [place]LIN 0.2 eu/dL Normal <1.1 [facility] Comment on above: Performed By: #### N UM #### [facility] ([id number]) [address] [place] [address] aPTT Coag (PPP) [Time]on aPTT Coag (Bld) [Time] 33 s Normal 26-[address] [facility] Comment on above: Result Comment: NEW REFERENCE RANGE Performed By: #### 1 9123-9, 24744-3, CMP, 10641-8, 36760-0, CBCA, 5643-2, PINR #### [facility] ([id number]) [address] [place] [address] 36on 04-18-2024 36 From: Jessica muñoz MD Sent: 04/18/2024 12:32 PM EDT To: Yuridia Nuñez MA Subject: RE: Scan Please inform him that blood testing for clotting disorder is negative. He should follow up with Dr Godwin for cancer screening. Pt has been notified [facility] Office Visiton 04-06-2024 Follow-up visit [id number] Jeb Riddle 1950 M Date Provider Department Center 04/06/2024 JESSICA JAMISON [facility] Lori [facility] Family History Problem Relation Age of Onset Diabetes Mother Coronary artery disease Mother Heart attack Father Diabetes Father Coronary artery disease Father Family Status - Relation Status Age at Mother Father Level of Service:65941 MO OFFICE/OUTPATIENT ESTABLISHED MOD MDM 30 MIN [facility] 36on 02-17-2024 36 Patient called back and said he is taking meds as prescribed at last visit with Dr. Forrester. I made him apt with Dr. Forrester end of Mar since he is not here in Apr. Normal [facility] 36on 02-15-2024 36 Regarding echo from 02/02/2024: MD Yuridia Herman MA Has he been taking meds as I recommended at last visit? 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 He should come for a visit in 3 months. LM w/ sister Mary to return my call. Normal [facility] Activated partial thrombopla stin time (aPTT) in platelet poor plasma by coagulation aOrdered By: Naima Boyd on 01-09-2024 aPTT Coag (PPP) [Time] 29.1 s 25.1-36.5 [facility] Comment on above: A hematocrit value g reater than 55% may lead to inaccurate results in coagulation testing. Patients having hematocrit values >55% require a special collection tube for coagulation studies. Please contact the laboratory at [phone] for redraw instructions. B-Type Natriuretic Peptideon 01-09-2024 Natriuretic peptide B (Bld) [Mass/Vol] 172.0 pg/mL High 5-100 [facility] Comment on above: Result Comment: PERF ORMED BY: [facility] [address] [place] [id number] PATHOLOGIST DIRECTOR OF ADVERTISING SALES RADHA BARRON M.D. Performed By: #### B STOCKROOM SUPERVISOR, HS TROP, BMP, CK, DIFF CBC ####[place] [id number] [facility] Basic Metabolic Panelon 12-14 Anion gap [Moles/Vol] Not performed Normal 6.0-15.0 [facility] Comment on above: Performed By: #### B STOCKROOM SUPERVISOR, HS TROP, BMP, CK, DIFF CBC ####[address] Calcium [Mass/Vol] 8.7 mg/dL Normal 8.6-10.3 [facility] Comment on above: Performed By: #### B STOCKROOM SUPERVISOR, HS TROP, BMP, CK, DIFF CBC ####[address] Chloride [Moles/Vol] 109 mmol/L High 98-107 [facility] Comment on above: Performed By: #### B STOCKROOM SUPERVISOR, HS TROP, BMP, CK, DIFF CBC ####[address] CO2 [Moles/Vol] 22.4 mmol/L Normal 21.0-31.0 [facility] Comment on above: Performed By: #### B STOCKROOM SUPERVISOR, HS TROP, BMP, CK, DIFF CBC ####[place] [id number] [facility] Creatinine [Mass/Vol] 1.16 mg/dL Normal 0.70-1.30 [facility] Comment on above: Performed By: #### B STOCKROOM SUPERVISOR, HS TROP, BMP, CK, DIFF CBC ####[address] Creatinine Clr Calc Pharmacy 64.96 Normal [facility] Comment on above: Result Comment: PERF ORMED BY: [facility] [address] [place] [address] PATHOLOGIST DIRECTOR OF ADVERTISING SALES RADHA BARRON M.D. Performed By: #### B STOCKROOM SUPERVISOR, HS TROP, BMP, CK, DIFF CBC ####[address] GFR/1.73 sq M.predicted MDRD (S/P/Bld) [Vol rate/Area] mL/min/{1.73_m2} Normal [facility] Comment on above: Performed By: #### B STOCKROOM SUPERVISOR, HS TROP, BMP, CK, DIFF CBC ####[place] [id number] [facility] Glucose [Mass/Vol] 95 mg/dL Normal 70-100 [facility] Comment on above: Result Comment: [place] Glucose Reference Range is dependent on time and content of last meal. Glucose of more than 200 mg/dL in a nonstressed, ambulatory subject supports the diagnosis of Diabetes Mellitus. ADA recommended reference range Performed By: #### B STOCKROOM SUPERVISOR, HS TROP, BMP, CK, DIFF CBC ####[place] [id number] [address] Potassium Normal 3.5-5.1 [facility] Comment on above: Result Comment: Spec imen hemolyzed, redraw requested Performed By: #### B STOCKROOM SUPERVISOR, HS TROP, BMP, CK, DIFF CBC ####[address] Sodium [Moles/Vol] 142 mmol/L Normal 136-145 [facility] Comment on above: Performed By: #### B STOCKROOM SUPERVISOR, HS TROP, BMP, CK, DIFF CBC ####[place] [address] [address] Urea nitrogen [Mass/Vol] 20 mg/dL Normal 7-25 [facility] Comment on above: Performed By: #### B STOCKROOM SUPERVISOR, HS TROP, BMP, CK, DIFF CBC ####[address] Basophils Auto (Bld) [#/Vol] Ordered By: Naima Boyd on 01-09-2024 Basophils (Bld) [#/Vol] N/A [facility] Basophils/100 WBC Auto (Bld) Ordered By: Naima Bullimore on 01-09-2024 Basophils/100 WBC (Bld) N/A [facility] Basophils/100 WBC Manual cnt (Bld)Ordered By: Naima Godwinimore on 01-09-2024 Basophils/100 WBC (Bld) 0 % 0-2 [facility] CT angio chest PE protocolon 01-09-2024 CT angio chest PE protocol [facility] [address] [place] [address] [place] [address] CT Scan Report Signed Patient: Jeb Riddle MR#: [id number] : 1950 Acct:[id number] Age/Sex: 73 / M ADM Date: 01/09/24 Loc: ER Room: Type: [facility] ER Attending Dr: Copies to: [...] Jeb Collins M.D.01/09/2024 6:17 PM Dictation Location: [place] [address] Transcribed By: [facility] 01/09/241816 Dictated By: Jeb Collins II, MD 01/09/241810 Signed By: 01/09/241816 Normal [facility] Calcium [Mass/volume] in Ser um or PlasmaOrdered By: Naima Boyd on 01-09-2024 Calcium [Mass/Vol] 8.7 mg/dL 8.6-10.3 [facility] Carbon dioxide, total [Moles /volume] in Serum or PlasmaOrdered By: Naima Boyd on 01-09-2024 CO2 [Moles/Vol] 22.4 mmol/L 21.0-31.0 [facility] Chloride [Moles/volume] in S pooja or PlasmaOrdered By: Naima Bullimore on 01-09-2024 Chloride [Moles/Vol] 109 mmol/L 98-107 [facility] Coagulation Profileon 2023 aPTT Coag (Bld) [Time] 29.1 s Normal 25.1-36.5 [facility] Comment on above: Order Comment: REDRA W Result Comment: A he matocrit value greater than 55% may lead to inaccurate results in coagulation testing. Patients having hematocrit values >55% require a special collection tube for coagulation studies. Please contact the laboratory at [phone] for redraw instructions. Performed By: #### P P, DDIMER ####[address] INR Coag (PPP) [Relative time] 1.0 {INR} Normal [facility] Comment on above: Order Comment: REDRA [...] 4.5 Performed By: #### P P, DDIMER ####[place] [id number] [facility] PT Coag (PPP) [Time] 11.9 s Normal 9.0-12.9 [facility] Comment on above: Order Comment: REDRA W Result Comment: A he matocrit value greater than 55% may lead to inaccurate results in coagulation testing. Patients having hematocrit values >55% require a special collection tube for coagulation studies. Please contact the laboratory at [phone] for redraw instructions. Performed By: #### P P, DDIMER ####[address] [address] [facility] Creatine Kinaseon 01-09-2024 CK [Catalytic activity/Vol] 81 U/L Normal 30-223 [facility] Comment on above: Performed By: #### B STOCKROOM SUPERVISOR, HS TROP, BMP, CK, DIFF CBC ####[place] [id number] [place] [id number] [facility] Creatine kinase [Enzymatic a ctivity/volume] in Serum or PlasmaOrdered By: Naima Bullimore on 01-09-2024 CK [Catalytic activity/Vol] 81 U/L - [facility] Creatinine [Mass/volume] in Serum or PlasmaOrdered By: [facility] Bullimore on 01-09-2024 Creatinine [Mass/Vol] 1.16 mg/dL 0.70-1.30 [facility] D-Dimer High Sensitivityon 0 01-09-2024 D-Dimer [...] coagulation studies. Please contact the laboratory at [phone] for redraw instructions. PERFORMED BY: [facility] [address] [place] [id number] PATHOLOGIST DIRECTOR OF ADVERTISING SALES RADHA BARRON M.D. Performed By: #### P P, DDIMER ####[place] [id number] [place] [id number] [facility] Diff and CBCon 01-09-2024 Basophils/100 WBC (Bld) 0 % Normal 0-2 [facility] Comment on above: Performed By: #### B STOCKROOM SUPERVISOR, HS TROP, BMP, CK, DIFF CBC ####[address] Eosinophils/100 WBC (Bld) 4 % High 1-3 [facility] Comment on above: Performed By: #### B STOCKROOM SUPERVISOR, HS TROP, BMP, CK, DIFF CBC ####[address] Erythrocyte distribution width (RBC) [Ratio] 14.9 % High 12.0-14.8 [facility] Comment on above: Performed By: #### B STOCKROOM SUPERVISOR, HS TROP, BMP, CK, DIFF CBC ####[address] Hematocrit (Bld) [Volume fraction] 41.9 % Normal 38.8-50.0 [facility] Comment on above: Performed By: #### B STOCKROOM SUPERVISOR, HS TROP, BMP, CK, DIFF CBC ####[address] Hemoglobin (Bld) [Mass/Vol] 14.1 g/dL Normal 13.0-17.0 [facility] Comment on above: Performed By: #### B STOCKROOM SUPERVISOR, HS TROP, BMP, CK, DIFF CBC ####[address] Lymphocytes/100 WBC (Bld) 27 % Normal 18-42 [facility] Comment on above: Performed By: #### B STOCKROOM SUPERVISOR, HS TROP, BMP, CK, DIFF CBC ####[address] MCH (RBC) [Entitic mass] 32.0 pg Normal 27.5-35.2 [facility] Comment on above: Performed By: #### B STOCKROOM SUPERVISOR, HS TROP, BMP, CK, DIFF CBC ####[address] MCV (RBC) [Entitic vol] 95.1 fL Normal 83.5-101 [facility] Comment on above: Performed By: #### B STOCKROOM SUPERVISOR, HS TROP, BMP, CK, DIFF CBC ####[address] Mean Corpuscular HGB Conc 33.6 g/dL Normal 32.5-35.6 [facility] Comment on above: Performed By: #### B STOCKROOM SUPERVISOR, HS TROP, BMP, CK, DIFF CBC ####[address] Monocytes/100 WBC (Bld) 25.58 % High 0.00-20.00 [facility] Comment on above: Result Comment: For adults in ED, MDW > 20.0 may be associated with a higher risk of sepsis during the first 12 hrs of hospital admission Performed By: #### B STOCKROOM SUPERVISOR, HS TROP, BMP, CK, DIFF CBC ####[address] Monocytes/100 WBC (Bld) 7 % Normal 2-11 [facility] Comment on above: Performed By: #### B STOCKROOM SUPERVISOR, HS TROP, BMP, CK, DIFF CBC ####[address] Nucleated Red Blood Cell 0 /100{WBC} Normal 0-0 [facility] Comment on above: Performed By: #### B STOCKROOM SUPERVISOR, HS TROP, BMP, CK, DIFF CBC ####[address] Platelet Estimate Normal Normal Normal [facility] Comment on above: Performed By: #### B STOCKROOM SUPERVISOR, HS TROP, BMP, CK, DIFF CBC ####[place] [id number] [facility] Platelet mean volume (Bld) [Entitic vol] 8.6 fL Normal 6.6-10.1 [facility] Comment on above: Performed By: #### B STOCKROOM SUPERVISOR, HS TROP, BMP, CK, DIFF CBC ####[place] [id number] [facility] Platelet Morphology Normal Normal Normal [facility] Comment on above: Performed By: #### B STOCKROOM SUPERVISOR, HS TROP, BMP, CK, DIFF CBC ####[address] Platelets (Bld) [#/Vol] 240 10*3/uL Normal 150-450 [facility] Comment on above: Performed By: #### B STOCKROOM SUPERVISOR, HS TROP, BMP, CK, DIFF CBC ####[address] Plt Comment SEE COMMENT BELOW Normal [facility] Comment on above: Result Comment: NO C LOTS, NO CLUMPS, SHORT DRAW LFM PERFORMED BY: [facility] [address] [place] [address] PATHOLOGIST DIRECTOR OF ADVERTISING SALES RADHA BARRON M.D. Performed By: #### B STOCKROOM SUPERVISOR, HS TROP, BMP, CK, DIFF CBC ####[address] RBC (Bld) [#/Vol] 4.41 10*6/uL Normal 3.90-5.60 [facility] Comment on above: Performed By: #### B STOCKROOM SUPERVISOR, HS TROP, BMP, CK, DIFF CBC ####[address] RBC morphology finding Nom (Bld) Normal Normal Normal [facility] Comment on above: Performed By: #### B STOCKROOM SUPERVISOR, HS TROP, BMP, CK, DIFF CBC ####[address] Segmented neutrophils/100 WBC (Bld) 62 % Normal 50-70 [facility] Comment on above: Performed By: #### B STOCKROOM SUPERVISOR, HS TROP, BMP, CK, DIFF CBC ####[address] WBC (Bld) [#/Vol] 7.6 10*3/uL Normal 4.1-10.5 [facility] Comment on above: Performed By: #### B STOCKROOM SUPERVISOR, HS TROP, BMP, CK, DIFF CBC ####[address] WBC (Bld) [#/Vol] 8.4 10*3/uL Normal 4.1-10.5 [facility] Comment on above: Performed By: #### B STOCKROOM SUPERVISOR, HS TROP, BMP, CK, DIFF CBC ####[facility] [id number] [address] ECG 12 lead ECGon 01-09-2024 ECG 12 lead ECG [facility] Main [place] [address] [place] [address] Electrocardiograph Report Signed Patient: Jeb Riddle MR#: [id number] : 1950 Acct:[id number] Age/Sex: 73 / M ADM Date: 01/09/24 Loc: ER Room: Type: [facility] ER Attending Dr: Ordering Provider: [...] Boyd on 01-09-2024 Eosinophils (Bld) [#/Vol] N/A [facility] Eosinophils/100 WBC Auto (Bl d)Ordered By: Naima Boyd on 01-09-2024 Eosinophils/100 WBC (Bld) N/A [facility] Eosinophils/100 WBC Manual c nt (Bld)Ordered By: Naima Boyd on 01-09-2024 Eosinophils/100 WBC (Bld) 4 % 1-3 [facility] Erythrocyte distribution wid th Auto (RBC) [Ratio]Ordered By: Naima Boyd on 01-09-2024 Erythrocyte distribution width (RBC) [Ratio] 14.9 % 12.0-14.8 [facility] Fibrin D-dimer [Presence] in Platelet poor plasma by Latex agglutinationOrdered By: Naima Boyd on 01-09-2024 Fibrin D-dimer LA Ql (PPP) 1905 ng/mL 0-243 [facility] Comment on above: The reference range [...] coagulation studies. Please contact the laboratory at [phone] for redraw instructions. Glucose [Mass/volume] in Ser um or PlasmaOrdered By: Naima Boyd on 01-09-2024 Glucose [Mass/Vol] 95 mg/dL 70-100 [facility] Comment on above: ADA recommended refe rence rangeRandom Glucose Reference Range is dependent on time and content of last meal. Glucose of more than 200 mg/dL in a nonstressed, ambulatory subject supports the diagnosis of Diabetes Mellitus. Hematocrit Auto (Bld) [Volum e fraction]Ordered By: Naima Boyd on 01-09-2024 Hematocrit (Bld) [Volume fraction] 41.9 % 38.8-50.0 [facility] Hemoglobin [Mass/volume] in BloodOrdered By: Naima Boyd on 01-09-2024 Hemoglobin (Bld) [Mass/Vol] 14.1 g/dL 13.0-17.0 [facility] INR in Platelet poor plasma by Coagulation assayOrdered By: Naima Boyd on 01-09-2024 INR Coag (PPP) [Relative time] 1.0 {INR} [facility] Comment on above: INR Therapeutic Rang [...] RBC Auto (Bld) [#/Vol] 7.6 10*3/uL 4.1-10.5 [facility] Lymphocytes Auto (Bld) [#/Vo l]Ordered By: Naima Boyd on 01-09-2024 Lymphocytes (Bld) [#/Vol] N/A [facility] Lymphocytes/100 WBC Auto (Bl d)Ordered By: Naima Boyd on 01-09-2024 Lymphocytes/100 WBC (Bld) N/A [facility] Lymphocytes/100 WBC Manual c nt (Bld)Ordered By: Naima Boyd on 01-09-2024 Lymphocytes/100 WBC (Bld) 27 % 18-42 [facility] MCH Auto (RBC) [Entitic mass ]Ordered By: Naima Boyd on 01-09-2024 MCH (RBC) [Entitic mass] 32.0 pg 27.5-35.2 [facility] MCHC Auto (RBC) [Mass/Vol]Or dered By: Naima Boyd on 01-09-2024 MCHC (RBC) [Mass/Vol] 33.6 g/dL 32.5-35.6 [facility] MCV Auto (RBC) [Entitic vol] Ordered By: Naima Boyd on 01-09-2024 MCV (RBC) [Entitic vol] 95.1 fL 83.5-101 [facility] Monocyte distribution width [Entitic volume] in Blood by AutomatedOrdered By: Naima Boyd on 01-09-2024 Monocyte distribution width Auto (Bld) [Entitic vol] 25.58 % 0.00-20.00 [facility] Comment on above: For adults in ED, MD W > 20.0 may be associated with a higher risk of sepsis during the first 12 hrs of hospital admission Monocytes Auto (Bld) [#/Vol] Ordered By: Naima Bullimore on 01-09-2024 Monocytes (Bld) [#/Vol] N/A [facility] Monocytes/100 WBC Auto (Bld) Ordered By: Naima Bullimore on 01-09-2024 Monocytes/100 WBC (Bld) N/A [facility] Monocytes/100 WBC Manual cnt (Bld)Ordered By: Naima Bullimore on 01-09-2024 Monocytes/100 WBC (Bld) 7 % 2-11 [facility] Natriuretic peptide B [Mass/ Vol]Ordered By: Naima Bullimore on 01-09-2024 Natriuretic peptide B (Bld) [Mass/Vol] 172.0 pg/mL 5-100 [facility] Neutrophils Auto (Bld) [#/Vo l]Ordered By: Namia Bullimore on 01-09-2024 Neutrophils (Bld) [#/Vol] N/A [facility] Neutrophils/100 WBC Auto (Bl d)Ordered By: Naima Bullimore on 01-09-2024 Neutrophils/100 WBC (Bld) N/A [facility] No Panel InformationOrdered By: Naima Rutherfordore on 01-09-2024 Estimated GFR (CKD-EPI) > 60.0 mL/Min [facility] Creatinine Clearance (Chem 64.96 [facility] Platelet Comment See comment below [facility] Comment on above: NO CLOTS, NO CLUMPS, SHORT DRAW LFM Nucleated RBC/100 WBC Manual cnt (Bld) [Ratio]Ordered By: Naima Bullimore on 01-09-2024 Nucleated RBC/100 WBC (Bld) [Ratio] 0 /100{WBC} 0-0 [facility] Nucleated erythrocytes [Pres ence] in Blood by Automated countOrdered By: Naimadevora Godwinimore on 01-09-2024 Nucleated RBC Auto Ql (Bld) N/A [facility] Platelet adequacy [Presence] in Blood by Light microscopyOrdered By: Naimadeovra Godwinimore on 01-09-2024 Platelets LM Ql (Bld) Normal Normal [facility] Platelet mean volume Auto (B ld) [Entitic vol]Ordered By: Naima Godwinimore on 01-09-2024 Platelet mean volume (Bld) [Entitic vol] 8.6 fL 6.6-10.1 [facility] Platelet morphology finding [Identifier] in BloodOrdered By: Naima Bullimore on 01-09-2024 Platelet morphology finding Nom (Bld) Normal Normal [facility] Platelets Auto (Bld) [#/Vol] Ordered By: Naima Bullimore on 01-09-2024 Platelets (Bld) [#/Vol] 240 10*3/uL 150-450 [facility] Potassium [Moles/volume] in Serum or PlasmaOrdered By: Naima Bullimore on 01-09-2024 Potassium [Moles/Vol] 3.9 mmol/L 3.5-5.1 [facility] Prothrombin time (PT)Ordered By: Naima Bullimore on 01-09-2024 PT Coag (PPP) [Time] 11.9 s 9.0-12.9 [facility] Comment on above: A hematocrit value g reater than 55% may lead to inaccurate results in coagulation testing. Patients having hematocrit values >55% require a special collection tube for coagulation studies. Please contact the laboratory at [phone] for redraw instructions. RBC Auto (Bld) [#/Vol]Ordere d By: Naima Godwinimore on 01-09-2024 RBC (Bld) [#/Vol] 4.41 10*6/uL 3.90-5.60 [facility] RBC morphologyOrdered By: Sabine Boyd on 01-09-2024 RBC morphology finding Nom (Bld) Normal Normal [facility] Redraw Potassiumon 4 Potassium [Moles/Vol] 3.9 mmol/L Normal 3.5-5.1 [facility] Comment on above: Result Comment: PERF ORMED BY: [facility] [address] [place] [address] PATHOLOGIST DIRECTOR OF ADVERTISING SALES JIANLAN SUN M.D. Performed By: #### R EDRAW K ####[address] Segmented neutrophils/100 WB C Manual cnt (Bld)Ordered By: Naima Boyd on 01-09-2024 Segmented neutrophils/100 WBC (Bld) 62 % 50-70 [facility] Serum or plasma anion gap de terminationOrdered By: Naima Boyd on 01-09-2024 Anion gap [Moles/Vol] TNP [facility] Comment on above: Test not performed Sodium [Moles/volume] in Ser um or PlasmaOrdered By: Naima Boyd on 01-09-2024 Sodium [Moles/Vol] 142 mmol/L 136-145 [facility] Troponin I High Sensitivityo n 01-09-2024 Troponin I High Sensitivity 13.1 pg/mL Normal 0.0-20.0 [facility] Comment on above: Result Comment: PERF ORMED BY: [place] [address] PATHOLOGIST DIRECTOR OF ADVERTISING SALES RADHA BARRON M.D. Performed By: #### H S TROP #### [facility] [address] [place] [address] Troponin I High Sensitivity 12.5 pg/mL Normal 0.0-20.0 [facility] Comment on above: Result Comment: PERF ORMED BY: [place] [address] PATHOLOGIST DIRECTOR OF ADVERTISING SALES RADHA BARRON M.D. Performed By: #### B STOCKROOM SUPERVISOR, HS TROP, BMP, CK, DIFF CBC ####[facility] [id number] Troponin I.cardiac [Mass/vol ume] in Serum or Plasma by Detection limit <= 0.01 ng/Ordered By: Naima Boyd on 01-09-2024 Troponin I.cardiac DL <= 0.01 ng/mL [Mass/Vol] 13.1 pg/mL 0.0-20.0 [facility] Urea nitrogen [Mass/volume] in Serum or PlasmaOrdered By: Naima Godwinimjeremias on 01-09-2024 Urea nitrogen [Mass/Vol] 20 mg/dL 03-08 [facility] WBC Auto (Bld) [#/Vol]Ordere d By: Naima Boyd on 01-09-2024 WBC (Bld) [#/Vol] 8.4 10*3/uL 4.1-10.5 [facility] XR chest 2V*on 01-09-2024 XR chest 2V* [facility] Main [address] [address] XRay Report Signed Patient: Jeb Riddle MR#: [id number] : 1950 Acct:[id number] Age/Sex: 73 / M ADM Date: 01/09/24 Loc: ER Room: Type: [facility] ER Attending Dr: Copies to: [...] Jeb Collins M.D.01/09/2024 4:11 PM Dictation Location: [place] [address] Transcribed By: [facility] 01/09/24 1611 Dictated By: Jeb Collins II, MD 01/09/24 1610 Signed By: 01/09/24 1611 Normal [facility] ECG 12 lead ECGon 12-18-2023 ECG 12 lead ECG [address] [address] Electrocardiograph Report Signed Patient: Jeb Riddle MR#: [id number] : 1950 Acct:[id number] Age/Sex: 73 / M ADM Date: 12/18/23 Loc: ER Room: Type: [facility] ER Attending Dr: Ordering Provider: [...] was found Confirmed by RAMIRO CORTEZ DO ([id number]) on 12/18/2023 4:44:01 PM Referred By: Electronically Signed By:RAMIRO CORTEZ DO Transcribed By: MUS Signed By Ramiro Cortez DO 12/17 1644 Normal [facility] Office Visiton 12-09-2023 Follow-up visit [id number] Jeb Riddle 1950 M Date Provider Department Center 12/09/2023 JESSICA JAMISON [facility] Family History Problem Relation Age of Onset Diabetes Mother Coronary artery disease Mother Heart attack Father Diabetes Father Coronary artery disease Father Family Status - Relation Status Age at Mother Father Level of Service:55383 MO OFFICE/OUTPATIENT ESTABLISHED MOD MDM 30 MIN Reason for Visit and Comments: Follow-up [387554] - 6 months Normal [facility] Activated partial thrombopla stin time (aPTT) in platelet poor plasma by coagulation aOrdered By: Ramiro Cortez on 03-03-2023 aPTT Coag (PPP) [Time] 29.7 s 25.1-36.5 [facility] B-Type Natriuretic Peptideon 03-03-2023 Natriuretic peptide B (Bld) [Mass/Vol] 52.0 pg/mL Normal 5-100 [facility] Comment on above: Result Comment: PERF ORMED BY: [facility] [address] [place] [address] PATHOLOGIST DIRECTOR OF ADVERTISING SALES RADHA BARRON M.D. Performed By: #### C BC, CK, PT, PTT, BMP, HS TROP, BNP ####[address] Basic Metabolic Panelon 07-2 -2022 Anion gap [Moles/Vol] 10.6 mmol/L Normal 6.0-15.0 [facility] Comment on above: Performed By: #### C BC, CK, PT, PTT, BMP, HS TROP, BNP ####[address] Calcium [Mass/Vol] 8.6 mg/dL Normal 8.6-10.3 [facility] Comment on above: Performed By: #### C BC, CK, PT, PTT, BMP, HS TROP, BNP ####[address] Chloride [Moles/Vol] 108 mmol/L High 98-107 [facility] Comment on above: Performed By: #### C BC, CK, PT, PTT, BMP, HS TROP, BNP ####[address] CO2 [Moles/Vol] 24.6 mmol/L Normal 21.0-31.0 [facility] Comment on above: Performed By: #### C BC, CK, PT, PTT, BMP, HS TROP, BNP ####[address] Creatinine [Mass/Vol] 1.19 mg/dL Normal 0.70-1.30 [facility] Comment on above: Performed By: #### C BC, CK, PT, PTT, BMP, HS TROP, BNP ####[address] Creatinine Clr Calc Pharmacy 55.29 Normal [facility] Comment on above: Result Comment: PERF ORMED BY: [facility] [address] [place] [address] PATHOLOGIST DIRECTOR OF ADVERTISING SALES RADHA BARRON M.D. Performed By: #### C BC, CK, PT, PTT, BMP, HS TROP, BNP ####[address] GFR/1.73 sq M.predicted MDRD (S/P/Bld) [Vol rate/Area] mL/min/{1.73_m2} Normal [facility] Comment on above: Performed By: #### C BC, CK, PT, PTT, BMP, HS TROP, BNP ####[place] [id number] [address] Glucose [Mass/Vol] 93 mg/dL Normal 70-100 [facility] Comment on above: Result Comment: [facility] Glucose Reference Range is dependent on time and content of last meal. Glucose of more than 200 mg/dL in a nonstressed, ambulatory subject supports the diagnosis of Diabetes Mellitus. ADA recommended reference range Performed By: #### C BC, CK, PT, PTT, BMP, HS TROP, BNP ####[place] [id number] [address] Potassium [Moles/Vol] 4.2 mmol/L Normal 3.5-5.1 [facility] Comment on above: Performed By: #### C BC, CK, PT, PTT, BMP, HS TROP, BNP ####[address] Sodium [Moles/Vol] 139 mmol/L Normal 136-145 [facility] Comment on above: Performed By: #### C BC, CK, PT, PTT, BMP, HS TROP, BNP ####[place] [id number] [facility] Urea nitrogen [Mass/Vol] 17 mg/dL Normal 7-25 [facility] Comment on above: Performed By: #### C BC, CK, PT, PTT, BMP, HS TROP, BNP ####[place] [id number] [facility] Basophils Auto (Bld) [#/Vol] Ordered By: Ramiro Cortez on 03-03-2023 Basophils (Bld) [#/Vol] 0.0 10*3/uL 0.0-0.2 [facility] Basophils/100 WBC Auto (Bld) Ordered By: Ramiro Cortez on 03-03-2023 Basophils/100 WBC (Bld) 0.4 % . [facility] Calcium [Mass/volume] in Ser um or PlasmaOrdered By: Ramiro Cortez on 03-03-2023 Calcium [Mass/Vol] 8.6 mg/dL 8.6-10.3 [facility] Carbon dioxide, total [Moles /volume] in Serum or PlasmaOrdered By: Ramiro Cortez on 03-03-2023 CO2 [Moles/Vol] 24.6 mmol/L 21.0-31.0 [facility] Chloride [Moles/volume] in S pooja or PlasmaOrdered By: Ramiro Cortez on 03-03-2023 Chloride [Moles/Vol] 108 mmol/L 98-107 [facility] Complete Blood Count Auto Di ffon 03-03-2023 Basophils (Bld) [#/Vol] 0.0 10*3/uL Normal 0.0-0.2 [facility] Comment on above: Result Comment: PERF ORMED BY: [place] [address] PATHOLOGIST DIRECTOR OF ADVERTISING SALES RADHA BARRON M.D. Performed By: #### C BC, CK, PT, PTT, BMP, HS TROP, BNP #### [address] Basophils/100 WBC (Bld) 0.4 % Normal . [facility] Comment on above: Performed By: #### C BC, CK, PT, PTT, BMP, HS TROP, BNP #### [address] Eosinophils (Bld) [#/Vol] 0.2 10*3/uL Normal 0.0-0.45 [facility] Comment on above: Performed By: #### C BC, CK, PT, PTT, BMP, HS TROP, BNP #### [address] Eosinophils/100 WBC (Bld) 2.4 % Normal . [facility] Comment on above: Performed By: #### C BC, CK, PT, PTT, BMP, HS TROP, BNP #### [address] Erythrocyte distribution width (RBC) [Ratio] 13.0 % Normal 12.0-14.8 [facility] Comment on above: Performed By: #### C BC, CK, PT, PTT, BMP, HS TROP, BNP #### [address] Hematocrit (Bld) [Volume fraction] 38.3 % Low 38.8-50.0 [facility] Comment on above: Performed By: #### C BC, CK, PT, PTT, BMP, HS TROP, BNP #### [address] Hemoglobin (Bld) [Mass/Vol] 12.9 g/dL Low 13.0-17.0 [facility] Comment on above: Performed By: #### C BC, CK, PT, PTT, BMP, HS TROP, BNP #### [address] Lymphocytes (Bld) [#/Vol] 2.6 10*3/uL Normal 1.00-4.8 [facility] Comment on above: Performed By: #### C BC, CK, PT, PTT, BMP, HS TROP, BNP #### [address] Lymphocytes/100 WBC (Bld) 28.3 % Normal . [facility] Comment on above: Performed By: #### C BC, CK, PT, PTT, BMP, HS TROP, BNP #### [address] MCH (RBC) [Entitic mass] 30.8 pg Normal 27.5-35.2 [facility] Comment on above: Performed By: #### C BC, CK, PT, PTT, BMP, HS TROP, BNP #### [address] MCV (RBC) [Entitic vol] 91.9 fL Normal 83.5-101 [facility] Comment on above: Performed By: #### C BC, CK, PT, PTT, BMP, HS TROP, BNP #### [place] [address] [place] Mean Corpuscular HGB Conc 33.6 g/dL Normal 32.5-35.6 [facility] Comment on above: Performed By: #### C BC, CK, PT, PTT, BMP, HS TROP, BNP #### [address] Monocytes (Bld) [#/Vol] 0.6 10*3/uL Normal 0.0-0.8 [facility] Comment on above: Performed By: #### C BC, CK, PT, PTT, BMP, HS TROP, BNP #### [address] Monocytes/100 WBC (Bld) 24.67 % High 0.00-20.00 [facility] Comment on above: Result Comment: For adults in ED, MDW > 20.0 may be associated with a higher risk of sepsis during the first 12 hrs of hospital admission Performed By: #### C BC, CK, PT, PTT, BMP, HS TROP, BNP #### [address] Monocytes/100 WBC (Bld) 6.5 % Normal . [facility] Comment on above: Performed By: #### C BC, CK, PT, PTT, BMP, HS TROP, BNP #### [address] Neutrophils (Bld) [#/Vol] 5.7 10*3/uL Normal 1.8-7.7 [facility] Comment on above: Performed By: #### C BC, CK, PT, PTT, BMP, HS TROP, BNP #### [address] Neutrophils/100 WBC (Bld) 62.4 % Normal . [facility] Comment on above: Performed By: #### C BC, CK, PT, PTT, BMP, HS TROP, BNP #### [address] NRBC% 0.1 /100{WBC} Normal 0-0.5 [facility] Comment on above: Performed By: #### C BC, CK, PT, PTT, BMP, HS TROP, BNP #### [facility] [address] Platelet mean volume (Bld) [Entitic vol] 8.2 fL Normal 6.6-10.1 [facility] Comment on above: Performed By: #### C BC, CK, PT, PTT, BMP, HS TROP, BNP #### [facility] [address] Platelets (Bld) [#/Vol] 234 10*3/uL Normal 150-450 [facility] Comment on above: Performed By: #### C BC, CK, PT, PTT, BMP, HS TROP, BNP #### [facility] [address] RBC (Bld) [#/Vol] 4.17 10*6/uL Normal 3.90-5.60 [facility] Comment on above: Performed By: #### C BC, CK, PT, PTT, BMP, HS TROP, BNP #### [facility] [address] WBC (Bld) [#/Vol] 9.2 10*3/uL Normal 4.1-10.5 [facility] Comment on above: Performed By: #### C BC, CK, PT, PTT, BMP, HS TROP, BNP #### [facility] [address] Creatine Kinaseon 03-03-2023 CK [Catalytic activity/Vol] 125 U/L Normal 30-223 [facility] Comment on above: Performed By: #### C BC, CK, PT, PTT, BMP, HS TROP, BNP ####[facility] [address] [place] [address] [place] Creatine kinase [Enzymatic a ctivity/volume] in Serum or PlasmaOrdered By: Ramiro Cortez on 03-03-2023 CK [Catalytic activity/Vol] 125 U/L 30-223 [facility] Creatinine [Mass/volume] in Serum or PlasmaOrdered By: Ramiro Cortez on 03-03-2023 Creatinine [Mass/Vol] 1.19 mg/dL 0.70-1.30 [facility] ECG 12 lead ECGon 03-03-2023 ECG 12 lead ECG [facility] [place] [place] [address] Electrocardiograph Report Signed Patient: Jeb Riddle MR#: [id number] : 1950 Acct:[id number] Age/Sex: 72 / M ADM Date: 03/03/23 Loc: ER Room: Type: [facility] ER Attending Dr: Ordering Provider: [...] ECGs available Confirmed by RAMIRO CORTEZ DO ([id number]) on 03/03/2023 8:14:27 PM Referred By: Electronically Signed By:RAMIRO CORTEZ DO Transcribed By: MUS Signed By Ramiro Cortez DO 03/03 Normal [facility] Eosinophils Auto (Bld) [#/Vo l]Ordered By: Ramiro Cortez on 03-03-2023 Eosinophils (Bld) [#/Vol] 0.2 10*3/uL 0.0-0.45 [facility] Eosinophils/100 WBC Auto (Bl d)Ordered By: Ramiro Cortez on 03-03-2023 Eosinophils/100 WBC (Bld) 2.4 % . [facility] Erythrocyte distribution wid th Auto (RBC) [Ratio]Ordered By: Ramiro Cortez on 03-03-2023 Erythrocyte distribution width (RBC) [Ratio] 13.0 % 12.0-14.8 [facility] Glucose [Mass/volume] in Ser um or PlasmaOrdered By: Ramiro Cortez on 03-03-2023 Glucose [Mass/Vol] 93 mg/dL 70-100 [facility] Comment on above: ADA recommended refe rence rangeRandom Glucose Reference Range is dependent on time and content of last meal. Glucose of more than 200 mg/dL in a nonstressed, ambulatory subject supports the diagnosis of Diabetes Mellitus. Hematocrit Auto (Bld) [Volum e fraction]Ordered By: Ramiro Cortez on 03-03-2023 Hematocrit (Bld) [Volume fraction] 38.3 % 38.8-50.0 [facility] Hemoglobin [Mass/volume] in BloodOrdered By: Ramiro Cortez on 03-03-2023 Hemoglobin (Bld) [Mass/Vol] 12.9 g/dL 13.0-17.0 [facility] Laboratory - CoagulationOrde red By: Ramiro Cortez on 03-03-2023 PT Coag (PPP) [Time] 12.3 s 9.0-12.9 [facility] Leukocytes [#/volume] correc ava for nucleated erythrocytes in Blood by Automated counOrdered By: Ramiro Cortez on 03-03-2023 WBC corrected for nucl RBC Auto (Bld) [#/Vol] 9.2 10*3/uL 4.1-10.5 [facility] Lymphocytes Auto (Bld) [#/Vo l]Ordered By: Ramiro Cortez on 03-03-2023 Lymphocytes (Bld) [#/Vol] 2.6 10*3/uL 1.00-4.8 [facility] Lymphocytes/100 WBC Auto (Bl d)Ordered By: Ramiro Cortez on 03-03-2023 Lymphocytes/100 WBC (Bld) 28.3 % . [facility] MCH Auto (RBC) [Entitic mass ]Ordered By: Ramiro Cortez on 03-03-2023 MCH (RBC) [Entitic mass] 30.8 pg 27.5-35.2 [facility] MCHC Auto (RBC) [Mass/Vol]Or dered By: Ramiro Cortez on 03-03-2023 MCHC (RBC) [Mass/Vol] 33.6 g/dL 32.5-35.6 [facility] MCV Auto (RBC) [Entitic vol] Ordered By: Ramiro Cortez on 03-03-2023 MCV (RBC) [Entitic vol] 91.9 fL 83.5-101 [facility] Monocyte distribution width [Entitic volume] in Blood by AutomatedOrdered By: Ramiro Cortez on 03-03-2023 Monocyte distribution width Auto (Bld) [Entitic vol] 24.67 % 0.00-20.00 [facility] Comment on above: For adults in ED, MD W > 20.0 may be associated with a higher risk of sepsis during the first 12 hrs of hospital admission Monocytes Auto (Bld) [#/Vol] Ordered By: Ramiro Cortez on 03-03-2023 Monocytes (Bld) [#/Vol] 0.6 10*3/uL 0.0-0.8 [facility] Monocytes/100 WBC Auto (Bld) Ordered By: Ramiro Cortez on 03-03-2023 Monocytes/100 WBC (Bld) 6.5 % . [facility] Natriuretic peptide B [Mass/ Vol]Ordered By: Ramiro Cortez on 03-03-2023 Natriuretic peptide B (Bld) [Mass/Vol] 52.0 pg/mL 5-100 [facility] Neutrophils Auto (Bld) [#/Vo l]Ordered By: Ramiro Cortez on 03-03-2023 Neutrophils (Bld) [#/Vol] 5.7 10*3/uL 1.8-7.7 [facility] Neutrophils/100 WBC Auto (Bl d)Ordered By: Ramiro Cortez on 03-03-2023 Neutrophils/100 WBC (Bld) 62.4 % . [facility] No Panel InformationOrdered By: Ramiro Cortez on 03-03-2023 Estimated GFR (CKD-EPI) > 60.0 mL/Min [facility] Creatinine Clearance (Chem 55.29 [facility] Nucleated erythrocytes [Pres ence] in Blood by Automated countOrdered By: Ramiro Cortez on 03-03-2023 Nucleated RBC Auto Ql (Bld) 0.1 /100{WBC} 0-0.5 [facility] Partial Thromboplastin Timeo n 03-03-2023 aPTT Coag (Bld) [Time] 29.7 s Normal 25.1-36.5 [facility] Comment on above: Result Comment: PERF ORMED BY: [facility] [address] [place] [address] PATHOLOGIST DIRECTOR OF ADVERTISING SALES JIANLAN SUN M.D. Performed By: #### C BC, CK, PT, PTT, BMP, HS TROP, BNP #### [facility] [address] Platelet mean volume Auto (B ld) [Entitic vol]Ordered By: Ramiro Cortez on 03-03-2023 Platelet mean volume (Bld) [Entitic vol] 8.2 fL 6.6-10.1 [facility] Platelet poor plasma interna tional normalized ratio (INR) by coagulation assay (relatOrdered By: Ramiro Cortez on 03-03-2023 INR Coag (PPP) [Relative time] 1.1 {INR} [facility] Comment on above: INR Therapeutic Rang [...] 03-03-2023 Platelets (Bld) [#/Vol] 234 10*3/uL 150-450 [facility] Potassium [Moles/volume] in Serum or PlasmaOrdered By: Ramiro Cortez on 03-03-2023 Potassium [Moles/Vol] 4.2 mmol/L 3.5-5.1 [facility] Prothrombin Time INRon 03-03 INR Coag [...] PT, PTT, BMP, HS TROP, BNP #### [facility] [address] PT Coag (PPP) [Time] 12.3 s Normal 9.0-12.9 [facility] Comment on above: Performed By: #### C BC, CK, PT, PTT, BMP, HS TROP, BNP #### [facility] [address] RBC Auto (Bld) [#/Vol]Ordere d By: Ramiro Cortez on 03-03-2023 RBC (Bld) [#/Vol] 4.17 10*6/uL 3.90-5.60 [facility] Serum or plasma anion gap de terminationOrdered By: Ramiro Cortez on 03-03-2023 Anion gap [Moles/Vol] 10.6 mmol/L 6.0-15.0 [facility] Sodium [Moles/volume] in Ser um or PlasmaOrdered By: Ramiro Cortez on 03-03-2023 Sodium [Moles/Vol] 139 mmol/L 136-145 [facility] Troponin I High Sensitivityo n 03-03-2023 Troponin I High Sensitivity 7.6 pg/mL Normal 0.0-20.0 [facility] Comment on above: Result Comment: PERF ORMED BY: [facility] [address] [place] [address] PATHOLOGIST DIRECTOR OF ADVERTISING SALES RADHA BARRON M.D. Performed By: #### C BC, CK, PT, PTT, BMP, HS TROP, BNP ####[facility] [address] Troponin I.cardiac [Mass/vol ume] in Serum or Plasma by Detection limit <= 0.01 ng/Ordered By: Ramiro Cortez on 03-03-2023 Troponin I.cardiac DL <= 0.01 ng/mL [Mass/Vol] 7.6 pg/mL 0.0-20.0 [facility] Urea nitrogen [Mass/volume] in Serum or PlasmaOrdered By: Ramiro Cortez on 03-03-2023 Urea nitrogen [Mass/Vol] 17 mg/dL 7-25 [facility] WBC Auto (Bld) [#/Vol]Ordere d By: Ramiro Cortez on 07-20-2023 WBC (Bld) [#/Vol] 9.2 10*3/uL 4.1-10.5 [facility] XR chest 2V*on 03-03-2023 XR chest 2V* [facility] Main [address] [address] XRay Report Signed Patient: Jeb Riddle MR#: [id number] : 1950 Acct:[id number] Age/Sex: 72 / M ADM Date: 03/03/23 Loc: ER Room: Type: [facility] ER Attending Dr: Copies to: [...] Ivonne Zavala M.D.03/03/2023 12:46 PM Dictation Location: [place] [address] Transcribed By: [facility] 03/03/23 1246 Dictated By: Ivonne Zavala MD 03/03/23 1245 Signed By: 03/03/23 1246 Normal [facility] CBC AUTO DIFFon 01-11-2023 BASO # 0.0 103/ul Normal 0.0-0.1 [facility] Comment on above: Performed By: #### C BC #### [facility] [address] [place] [address] [address] Andrea Garcia Basophils/100 WBC (Bld) 0.0 % Critically low 0.2-2.0 [facility] Comment on above: Performed By: #### C BC #### [facility] [address] [place] [address] [address] Andrea Garcia EO # 0.0 103/ul Normal 0.0-0.7 [facility] Comment on above: Performed By: #### C BC #### [facility] [address] [place] [address] Dr. Andrea Garcia Eosinophils/100 WBC (Bld) 0.0 % Critically low 0.9-7.0 [facility] Comment on above: Performed By: #### C BC #### [facility] [address] [place] [address] Dr. Andrea Garcia Erythrocyte distribution width (RBC) [Ratio] 12.8 % Normal 11.0-15.0 [facility] Comment on above: Performed By: #### C BC #### [facility] [address] [place] [address] Dr. Andrea Garcia Hematocrit (Bld) [Volume fraction] 36.2 % Critically low 42.0-54.0 [facility] Comment on above: Performed By: #### C BC #### [facility] [address] [place] [address] Dr. Andrea Garcia Hemoglobin (Bld) [Mass/Vol] 12.8 g/dL Critically low 14.0-18.0 [facility] Comment on above: Performed By: #### C BC #### [facility] [address] [place] [address] Dr. Andrea Garcia IG # 0.03 10e3/ul Normal 0.00-0.03 [facility] Comment on above: Performed By: #### C BC #### [facility] [address] [place] [address] Dr. Andrea Garcia IG % 0.4 % Normal 0.0-0.5 [facility] Comment on above: Performed By: #### C BC #### [facility] [address] [place] [address] Dr. Andrea Garcia LYMPH # 1.1 103/ul Critically low 1.2-3.8 [facility] Comment on above: Performed By: #### C BC #### [facility] [address] [place] [address] Dr. Andrea Garcia Lymphocytes/100 WBC (Bld) 15.3 % Critically low 20.5-60.0 [facility] Comment on above: Performed By: #### C BC #### [facility] [address] [place] [address] Dr. Andrea Garcia MANUAL DIFF REQ NO Normal [facility] Comment on above: Performed By: #### C BC #### [facility] [address] [place] [address] Dr. Andrea Garcia MCH (RBC) [Entitic mass] 31.3 pg Normal 25.9-34.0 [facility] Comment on above: Performed By: #### C BC #### [facility] [address] [place] [address] Dr. Andrea Garcia MCHC (RBC) [Mass/Vol] 35.4 g/dL Critically high 29.9-35.2 [facility] Comment on above: Performed By: #### C BC #### [facility] [address] [place] [address] Dr. Andrea Garcia MCV (RBC) [Entitic vol] 88.5 fL Normal 80.0-94.0 [facility] Comment on above: Performed By: #### C BC #### [facility] [address] [place] [address] Dr. Andrea Garcia MONO # 0.1 103/ul Critically low 0.3-0.8 [facility] Comment on above: Performed By: #### C BC #### [facility] [address] [place] [address] Dr. Andrea Garcia Monocytes/100 WBC (Bld) 0.7 % Critically low 1.7-12.0 [facility] Comment on above: Performed By: #### C BC #### [facility] [address] [place] [address] Dr. Andrea Garcia NEUT # 6.0 103/ul Normal 1.4-6.5 [facility] Comment on above: Performed By: #### C BC #### [facility] [address] [place] [address] Dr. Andrea Garcia Neutrophils/100 WBC (Bld) 83.6 % Critically high 43.0-75.0 [facility] Comment on above: Performed By: #### C BC #### [facility] [address] [place] [address] [address] Andrea Garcia Platelet mean volume (Bld) [Entitic vol] 10.1 fL Normal 9.5-13.5 [facility] Comment on above: Performed By: #### C BC #### [facility] [address] [place] [address] Dr. Andrea Garcia PLT 216 103/ul Normal 150-450 [facility] Comment on above: Performed By: #### C BC #### [facility] [address] [place] [address] Dr. Andrea Garcia RBC 4.09 106/ul Critically low 4.70-6.10 [facility] Comment on above: Performed By: #### C BC #### [facility] [address] [place] [address] Dr. Andrea Garcia WBC 7.2 103/ul Normal 4.0-11.0 [facility] Comment on above: Performed By: #### C BC #### [facility] [address] [place] [address] Dr. Andrea Garcia PROF 14(COMP METB)on 023 Albumin [Mass/Vol] 2.8 g/dL Critically low 3.4-5.0 [facility] Comment on above: Performed By: #### C MP #### [facility] [address] [place] [address] Dr. Andrea Garcia Albumin/Globulin [Mass ratio] 0.8 {ratio} Normal [facility] Comment on above: Performed By: #### C MP #### [facility] [address] [place] [address] Dr. Andrea Garcia ALP [Catalytic activity/Vol] 64 U/L Normal 46-116 [facility] Comment on above: Performed By: #### C MP #### [place] / [facility] [address] [place] [address] Dr. Andrea Garcia ALT [Catalytic activity/Vol] 27 U/L Normal 16-63 [facility] Comment on above: Performed By: #### C MP #### [facility] [address] [address] [address] Andrea Garcia Anion gap [Moles/Vol] 12.9 mmol/L Normal [facility] Comment on above: Performed By: #### C MP #### [facility] [address] [address] [address] Andrea Garcia AST [Catalytic activity/Vol] 16 U/L Normal 15-37 [facility] Comment on above: Performed By: #### C MP #### [facility] [address] [address] [address] Andrea Garcia Bilirubin [Mass/Vol] 0.4 mg/dL Normal 0.2-1.0 [facility] Comment on above: Performed By: #### C MP #### [facility] [address] [place] [address] Dr. Andrea Garcia Calcium [Mass/Vol] 8.2 mg/dL Critically low 8.5-10.1 [facility] Comment on above: Performed By: #### C MP #### [facility] [address] [place] [address] Dr. Andrea Garcia Chloride [Moles/Vol] 107 mmol/L Normal 98-107 [facility] Comment on above: Performed By: #### C MP #### [facility] [address] [place] [address] Dr. Andrea Garcia CO2 [Moles/Vol] 24.2 mmol/L Normal 21.0-32.0 [facility] Comment on above: Performed By: #### C MP #### [facility] [address] [place] [address] Dr. Andrea Garcia Creatinine [Mass/Vol] 1.07 mg/dL Normal 0.70-1.30 [facility] Comment on above: Performed By: #### C MP #### [facility] [address] [place] [address] Dr. Andrea Garcia EGFR-AF FAROESE >60 Normal >=60 [facility] Comment on above: Performed By: #### C MP #### [facility] [address] [place] [address] Dr. Andrea Garcia EGFR-NON AF FAROESE >60 Normal >=60 [facility] Comment on above: Performed By: #### C MP #### [facility] [address] [place] [address] Dr. Andrea Garcia Globulin (S) [Mass/Vol] 3.5 g/dL Normal [facility] Comment on above: Performed By: #### C MP #### [facility] [address] [place] [address] Dr. Andrea Garcia Glucose [Mass/Vol] 164 mg/dL Critically high 74-106 [facility] Comment on above: Performed By: #### C MP #### [facility] [address] [place] [address] Dr. Andrea Garcia Potassium [Moles/Vol] 4.1 mmol/L Normal 3.5-5.1 [facility] Comment on above: Performed By: #### C MP #### [facility] [address] [place] [address] Dr. Andrea Garcia Protein [Mass/Vol] 6.3 g/dL Critically low 6.4-8.2 [facility] [place] Comment on above: Performed By: #### C MP #### [facility] [address] [place] [address] Dr. Andrea Garcia Sodium [Moles/Vol] 140 mmol/L Normal 136-145 [facility] Comment on above: Performed By: #### C MP #### [facility] [address] [place] [address] Dr. Andrea Garcia Urea nitrogen [Mass/Vol] 16.0 mg/dL Normal 7.0-18.0 [facility] Comment on above: Performed By: #### C MP #### [facility] [address] [place] [address] Dr. Andrea Garcia Urea nitrogen/Creatinine [Mass ratio] 15.0 mg/mg Normal [facility] Comment on above: Performed By: #### C MP #### [facility] [address] [place] [address] Dr. Andrea Garcia XR KUB 1 VIEWon [...] by: ROBERT DAVENPORT Date: 2023-01-11 06:56 Normal [facility] AMYLASEon 01-10-2023 Amylase [Catalytic activity/Vol] 56 U/L Normal 25-115 [facility] Comment on above: Performed By: #### C MADM, CMP, DAMIEN, LIPA ####[facility] [address] [address]Dr. Andrea Garcia CARDIAC JEB 3-6on 3 CK [Catalytic activity/Vol] 92 U/L Normal 39-308 [facility] Comment on above: Performed By: #### C MREP #### [facility] [address] [address] [address] Andrea RUBALCAVA.MB [Mass/Vol] 1.66 ng/mL Normal <=3.60 [facility] Comment on above: Performed By: #### C MREP #### [facility] [address] [address] [address] Andrea Garcia HSTROP 12.8 pg/mL Normal 4.0-76.1 [facility] Comment on above: Result Comment: CUT- OFF POINTS HAVE BEEN ESTABLISHED BASED ON THE FOURTH UNIVERSAL DEFINITIONS OF MYOCARDIAL INFARCTION. THE UPPER REFERENCE LIMIT (URL) OF TROPONIN, DEFINED THE 99TH PERCENTILE OF cTnI DISTRIBUTION IN A REFERENCE POPULATION, HAS BEEN CONFIRMED THE DECISION THRESHOLD FOR [place] DIAGNOSIS. Performed By: #### C MREP #### [facility] [address] [address] [address] Andrea Garcia CK [Catalytic activity/Vol] 72 U/L Normal 39-308 [facility] Comment on above: Performed By: #### C MREP #### [facility] [address] [address] [address] Yilan Garcia CK.MB [Mass/Vol] 1.89 ng/mL Normal <=3.60 [facility] Comment on above: Performed By: #### C MREP #### [facility] [address] [address] [address] Andrea Garcia HSTROP 13.5 pg/mL Normal 4.0-76.1 [facility] Comment on above: Result Comment: CUT- OFF POINTS HAVE BEEN ESTABLISHED BASED ON THE FOURTH UNIVERSAL DEFINITIONS OF MYOCARDIAL INFARCTION. THE UPPER REFERENCE LIMIT (URL) OF TROPONIN, DEFINED THE 99TH PERCENTILE OF cTnI DISTRIBUTION IN A REFERENCE POPULATION, HAS BEEN CONFIRMED THE DECISION THRESHOLD FOR [place] DIAGNOSIS. Performed By: #### C MREP #### [facility] [address] [address] [address] Andrea Garcia CARDIAC JEB ADMITon 023 CK [Catalytic activity/Vol] 85 U/L Normal 39-308 [facility] Comment on above: Performed By: #### C MADM, CMP, DAMIEN, LIPA ####[facility] [address] [address]DrWilder Garcia CK.MB [Mass/Vol] 1.80 ng/mL Normal <=3.60 [facility] Comment on above: Performed By: #### C MADM, CMP, DAMIEN, LIPA ####[facility] [address] [address]DrWilder Garcia HSTROP 15.7 pg/mL Normal 4.0-76.1 [facility] Comment on above: Result Comment: CUT- OFF POINTS HAVE BEEN ESTABLISHED BASED ON THE FOURTH UNIVERSAL DEFINITIONS OF MYOCARDIAL INFARCTION. THE UPPER REFERENCE LIMIT (URL) OF TROPONIN, DEFINED THE 99TH PERCENTILE OF cTnI DISTRIBUTION IN A REFERENCE POPULATION, HAS BEEN CONFIRMED THE DECISION THRESHOLD FOR [place] DIAGNOSIS. Performed By: #### C MADM, CMP, DAMIEN, LIPA ####[facility] [address] [address]DrWilder Garcia MIQUEL 61 ng/mL Normal 16-96 [facility] Comment on above: Performed By: #### C MADM, CMP, DAMIEN, LIPA ####[facility] [address] [address]Dr. Andrea Garcia CBC AUTO DIFFon 01-10-2023 BASO # 0.0 103/ul Normal 0.0-0.1 [facility] Comment on above: Performed By: #### C BC ####[facility] [address] [address]Dr. Andrea Garcia Basophils/100 WBC (Bld) 0.5 % Normal 0.2-2.0 [facility] Comment on above: Performed By: #### C BC ####[facility] [address] [place], [place] [address]Dr. Andrea Garcia EO # 0.4 103/ul Normal 0.0-0.7 [facility] Comment on above: Performed By: #### C BC ####[facility] [address] [place], [place] [address]Dr. Andrea Garcia Eosinophils/100 WBC (Bld) 5.9 % Normal 0.9-7.0 [facility] Comment on above: Performed By: #### C BC ####[facility] [address] [place], [place] [address]Dr. Andrea Garcia Erythrocyte distribution width (RBC) [Ratio] 13.0 % Normal 11.0-15.0 [facility] Comment on above: Performed By: #### C BC ####[facility] [address] [place], [place] [address]Dr. Andrea Garcia Hematocrit (Bld) [Volume fraction] 40.0 % Critically low 42.0-54.0 [facility] Comment on above: Performed By: #### C BC ####[facility] [address]ft[address] [place], [place] [address]Dr. Andrea Garcia Hemoglobin (Bld) [Mass/Vol] 13.4 g/dL Critically low 14.0-18.0 [facility] Comment on above: Performed By: #### C BC ####[facility] [address] [place], [place] [address]Dr. Andrea Garcia IG # 0.01 10e3/ul Normal 0.00-0.03 [facility] Comment on above: Performed By: #### C BC ####[facility] [address] [id number]. Andrea Garcia IG % 0.2 % Normal 0.0-0.5 [facility] Comment on above: Performed By: #### C BC ####[facility] [address] [id number]. Andrea Garcia LYMPH # 2.2 103/ul Normal 1.2-3.8 [facility] Comment on above: Performed By: #### C BC ####[facility] [address] [place], [place] [address]Dr. Andrea Garcia Lymphocytes/100 WBC (Bld) 33.2 % Normal 20.5-60.0 [facility] Comment on above: Performed By: #### C BC ####[facility] [address] [place], [place] [address]Dr. Andrea Garcia MANUAL DIFF REQ NO Normal [facility] Comment on above: Performed By: #### C BC ####[facility] [address] [place], [place] [address]Dr. Andrea Garcia MCH (RBC) [Entitic mass] 30.5 pg Normal 25.9-34.0 [facility] Comment on above: Performed By: #### C BC ####[facility] [address] [place], [place] [address]Dr. Andrea Garcia MCHC (RBC) [Mass/Vol] 33.5 g/dL Normal 29.9-35.2 [facility] Comment on above: Performed By: #### C BC ####[facility] [address] [place], [place] [address]Dr. Andrea Garcia MCV (RBC) [Entitic vol] 90.9 fL Normal 80.0-94.0 [facility] Comment on above: Performed By: #### C BC ####[facility] [address] [place], [place] [address]Dr. Andrea Jose MONO # 0.4 103/ul Normal 0.3-0.8 [facility] Comment on above: Performed By: #### C BC ####[facility] [address] [id number]. Andrea Garcia Monocytes/100 WBC (Bld) 6.0 % Normal 1.7-12.0 [facility] Comment on above: Performed By: #### C BC ####[facility] [address] [id number]. Andrea Garcia NEUT # 3.5 103/ul Normal 1.4-6.5 [facility] Comment on above: Performed By: #### C BC ####[facility] [address] [id number]. Andrea Garcia Neutrophils/100 WBC (Bld) 54.2 % Normal 43.0-75.0 [facility] Comment on above: Performed By: #### C BC ####[facility] [address] [id number]. Andrea Garcia Platelet mean volume (Bld) [Entitic vol] 9.7 fL Normal 9.5-13.5 [facility] Comment on above: Performed By: #### C BC ####[facility] [address] [id number]. Andrea Garcia PLT 225 103/ul Normal 150-450 [facility] Comment on above: Performed By: #### C BC ####[facility] [address] [id number]. Andrea Garcia RBC 4.40 106/ul Critically low 4.70-6.10 [facility] Comment on above: Performed By: #### C BC ####[facility] [address] [id number]. Andrea Garcia WBC 6.5 103/ul Normal 4.0-11.0 [facility] Comment on above: Performed By: #### C BC ####[facility] [address] [place], [place] [address]Dr. Andrea Garcia CT ABD/PELV W CONon 01-11-20 [...] ADITYA OATES Date: 2023-01-10 07:41 Normal [facility] CULTURE BLOODon 01-10-2023 Microscopic examination of blood, culture Culture Observations: NO GROWTH AT 36-48 HOURS. FINAL TO FOLLOW. Normal [facility] Comment on above: Performed By: #### B LDCX2 ####[facility] [address] [id number]. Andrea Garcia Microscopic examination of blood, culture Culture Observations: NO GROWTH AT 36-48 HOURS. FINAL TO FOLLOW. Normal [facility] Comment on above: Performed By: #### B LDCX1 ####[facility] [address] [place], [place] [address]QzDr. Andrea SCHAEFER URINE PROFILEon 3 Bilirubin Ql (U) Negative Normal NEGATIVE [facility] Comment on above: Performed By: #### U MICRO, ERUR #### [facility] [address] [place], [place] [address] Dr. Andrea Garcia Clarity (U) CLEAR Normal CLEAR [facility] Comment on above: Performed By: #### U MICRO, ERUR #### [facility] [address] [address] [address] Andrea Garcia Color (U) LT. YELLOW Normal YELLOW [facility] Comment on above: Performed By: #### U MICRO, ERUR #### [facility] [address] [address] [address] Andrea Garcia ERUAHD A micrscopic examina tion will be performed if indicated. Normal [facility] Comment on above: Performed By: #### U MICRO, ERUR #### [facility] [address] [address] [address] Andrea Garcia Glucose Ql (U) Negative Normal NEGATIVE [facility] Comment on above: Performed By: #### U MICRO, ERUR #### [facility] [address] [place] [address] Dr. Andrea Garcia Hemoglobin Ql (U) TRACE-INTACT Abnormal NEGATIVE [facility] Comment on above: Performed By: #### U MICRO, ERUR #### [facility] [address] [place] [address] Dr. Andrea Garcia Ketones Ql (U) Negative Normal NEGATIVE [facility] Comment on above: Performed By: #### U MICRO, ERUR #### [facility] [address] [place] [address] Dr. Andrea Garcia LEUKOCYTES Negative Normal NEGATIVE [facility] Comment on above: Performed By: #### U MICRO, ERUR #### [facility] [address] [address] [address] Andrea Garcia Nitrite Ql (U) Negative Normal NEGATIVE [facility] Comment on above: Performed By: #### U MICRO, ERUR #### [facility] [address] [address] [address] Andrea Garcia pH (U) 5.5 [pH] Normal 5-9 [facility] Comment on above: Performed By: #### U MICRO, ERUR #### [facility] [address] [place] [address] Dr. Andrea Garcia SPEC GRAVITY 1.015 Normal 1.005-<=1. 025 [facility] Comment on above: Performed By: #### U MICRO, ERUR #### [facility] [address] [address] [address] Andrea Garcia UA PROTEIN Negative Normal NEGATIVE/ TRACE [facility] Comment on above: Performed By: #### U MICRO, ERUR #### [facility] [address] [address] [address] Andrea Garcia UR MICRO IND INDICATED Normal [facility] Comment on above: Performed By: #### U MICRO, ERUR #### [facility] [address] [address] [address] Andrea Garcia Urobilinogen Qn (U) 0.2 {Temo'U}/dL Normal 0.2 - 1. 0 [facility] Comment on above: Performed By: #### U MICRO, ERUR #### [facility] [address] [place] [address] Dr. Andrea Garcia LACTATE/LACTIC ACIDon 2022 Lactate [Moles/Vol] 0.8 mmol/L Normal 0.4-2.0 [facility] Comment on above: Performed By: #### L ACT #### [facility] [address] [place] [address] Dr. Andrea Garcia Lactate [Moles/Vol] 0.9 mmol/L Normal 0.4-2.0 [facility] Comment on above: Performed By: #### L ACT #### [facility] [address] [place] [address] Dr. Andrea Garcia LIPASEon 01-10-2023 Lipase [Catalytic activity/Vol] 71.0 U/L Critically low 73.0-393.0 [facility] Comment on above: Performed By: #### C MADM, CMP, DAMIEN, LIPA ####[facility] [address] [address]Dr. Andrea Garcia PROF 14(COMP METB)on 023 Albumin [Mass/Vol] 3.2 g/dL Critically low 3.4-5.0 [facility] [place] Comment on above: Performed By: #### C MADM, CMP, DAMIEN, LIPA ####[facility] [address] [address]Dr. Andrea Garcia Albumin/Globulin [Mass ratio] 0.9 {ratio} Normal [facility] Comment on above: Performed By: #### C MADM, CMP, DAMIEN, LIPA ####[facility] [address] [address]Dr. Andrea Garcia ALP [Catalytic activity/Vol] 68 U/L Normal 46-116 [facility] Comment on above: Performed By: #### C MADM, CMP, DAMIEN, LIPA ####[facility] [address] [address]Dr. Andrea Garcia ALT [Catalytic activity/Vol] 30 U/L Normal 16-63 [facility] Comment on above: Performed By: #### C MADM, CMP, DAMIEN, LIPA ####[facility] [address] [address]Dr. Andrea Garcia Anion gap [Moles/Vol] 14.2 mmol/L Normal [facility] Comment on above: Performed By: #### C MADM, CMP, DAMIEN, LIPA ####[facility] [address] [place], [place] [address]Dr. nAdrea Garcia AST [Catalytic activity/Vol] 18 U/L Normal 15-37 [facility] Comment on above: Performed By: #### C MADM, CMP, DAMIEN, LIPA ####[facility] [address] [address]Dr. Andrea Garcia Bilirubin [Mass/Vol] 0.5 mg/dL Normal 0.2-1.0 [facility] Comment on above: Performed By: #### C MADM, CMP, DAMIEN, LIPA ####[facility] [address] [place], [place] [address]Dr. Andrea Garcia Calcium [Mass/Vol] 8.5 mg/dL Normal 8.5-10.1 [facility] Comment on above: Performed By: #### C MADM, CMP, DAMIEN, LIPA ####[facility] [address] [place], [place] [address]Dr. Andrea Garcia Chloride [Moles/Vol] 108 mmol/L Critically high 98-107 [facility] Comment on above: Performed By: #### C MADM, CMP, DAMIEN, LIPA ####[facility] [address] [address]Dr. Andrea Garcia CO2 [Moles/Vol] 22.1 mmol/L Normal 21.0-32.0 [facility] Comment on above: Performed By: #### C MADM, CMP, DAMIEN, LIPA ####[facility] [address] [address]Dr. Andrea Garcia Creatinine [Mass/Vol] 1.06 mg/dL Normal 0.70-1.30 [facility] Comment on above: Performed By: #### C MADM, CMP, DAMIEN, LIPA ####[facility] [address] [address]Dr. Andrea Garcia EGFR-AF FAROESE >60 Normal >=60 [facility] Comment on above: Performed By: #### C MADM, CMP, DAMIEN, LIPA ####[facility] [address] [address]Dr. Andrea Garcia EGFR-NON AF FAROESE >60 Normal >=60 [facility] Comment on above: Performed By: #### C MADM, CMP, DAMIEN, LIPA ####[facility] [address] [address]Dr. Andrea Garcia Globulin (S) [Mass/Vol] 3.5 g/dL Normal [facility] Comment on above: Performed By: #### C MADM, CMP, DAMIEN, LIPA ####[facility] [address] [address]Dr. Andrea Garcia Glucose [Mass/Vol] 110 mg/dL Critically high 74-[address] [facility] Comment on above: Performed By: #### C MADM, CMP, DAMIEN, LIPA ####[facility] [address] [address]Dr. Andrea Garcia Potassium [Moles/Vol] 4.3 mmol/L Normal 3.5-5.1 [facility] Comment on above: Performed By: #### C MADM, CMP, DAMIEN, LIPA ####[facility] [address] [address]Dr. Andrea Garcia Protein [Mass/Vol] 6.7 g/dL Normal 6.4-8.2 [facility] Comment on above: Performed By: #### C MADM, CMP, DAMIEN, LIPA ####[facility] [address] [address]Dr. Andrea Garcia Sodium [Moles/Vol] 140 mmol/L Normal 136-145 [facility] Comment on above: Performed By: #### C MADM, CMP, DAMIEN, LIPA ####[facility] [address] [address]Dr. Andrea Garcia Urea nitrogen [Mass/Vol] 20.0 mg/dL Critically high 7.0-18.0 [facility] Comment on above: Performed By: #### C MADM, CMP, DAMIEN, LIPA ####[facility] [address] [address]Dr. Andrea Garcia Urea nitrogen/Creatinine [Mass ratio] 18.9 mg/mg Normal [facility] Comment on above: Performed By: #### C MADM, CMP, DAMIEN, LIPA ####[facility] [address] [address]Dr. Andrea Garcia URINE MICROSCOPIC ONLYon BACTERIA NONE SEEN Normal NONE SEEN [facility] Comment on above: Performed By: #### U MICRO, ERUR #### [facility] [address] [place] [address] Dr. Andrea Garcia Bacteria identified Cx Nom (U) NOT INDICATED Normal [facility] Comment on above: Performed By: #### U MICRO, ERUR #### [facility] [address] [place] [address] Dr. Andrea Garcia CAST NONE SEEN Normal NONE SEEN [facility] Comment on above: Performed By: #### U MICRO, ERUR #### [facility] [address] [place] [address] Dr. Andrea Garcia Crystals LM Nom (Urine sed) NONE SEEN Normal NONE SEEN [facility] Comment on above: Performed By: #### U MICRO, ERUR #### [facility] [address] [address] [address] Andrea Garcia Epithelial cells LM Ql (Urine sed) NONE SEEN Normal NONE SEEN /RARE [facility] Comment on above: Performed By: #### U MICRO, ERUR #### [facility] [address] [address] [address] Andrea Garcia MUCOUS NONE SEEN Normal NONE SEEN [facility] Comment on above: Performed By: #### U MICRO, ERUR #### [facility] [address] [place] [address] Dr. Andrea Garcia RBC 0-2 Normal 0-2 [facility] Comment on above: Performed By: #### U MICRO, ERUR #### [facility] [address] [place] [address] Dr. Andrea Garcia WBC 0-2 Abnormal NONE SEEN [facility] Comment on above: Performed By: #### U MICRO, ERUR #### [facility] [address] [place] [address] Dr. Andrea Garcia XR CHEST 1 Von 01-10-2023 XR CHEST 1 V Exam: Radiographs: X R CHEST 1 V Reason for exam: Nausea/vomiting Comparison: None IMPRESSION: Negative chest. Electronically authenticated by: ADITYA OATES Date: 2023-01-10 07:42 Normal [facility] MRI Soft Tissue Neck w/o + [...] KENN RAPHAEL on 10/06/2021 1605 Normal [facility] Specialist CT Soft Tissue Neck w/ [...] Que Greene on 09/29/2021 1013 Normal [facility] Vital Signs Date Time Vital Sign Value Performing Clinician Faci lity 09-19-2024 08:42-0500 Body mass index (BMI) [Ratio] 24.11 kg/m2 Maribel Bojorquez DO Work Phone: [facility] 09-19-2024 08:42-0500 Body weight 85.19 kg Christopher Reno DO Work Phone: [facility] 09-19-2024 08:42-0500 Diastolic blood pressure 76 mm[Hg] Christopher Reno DO Work Phone: [facility] 09-19-2024 08:42-0500 Heart rate 78 /min Christopher Reno DO Work Phone: [facility] 09-19-2024 08:42-0500 SaO2% (BldA) [Mass fraction] 96 % Christopher Reno DO Work Phone: [facility] 09-19-2024 08:42-0500 Systolic blood pressure 142 mm[Hg] Christopher Reno DO Work Phone: [facility] 01-09-2024 19:01-0400 Diastolic blood pressure 99 mm[Hg] MD Lauren Godwin Work Phone: [facility] 01-09-2024 19:01-0400 Heart rate 84 /min MD Lauren Godwin Work Phone: [facility] 01-09-2024 19:01-0400 Respiratory rate 18 /min MD Lauren Godwin Work Phone: [facility] 01-09-2024 19:01-0400 SaO2% (BldA) [Mass fraction] 97 % MD Lauren Godwin Work Phone: [facility] 01-09-2024 19:01-0400 Systolic blood pressure 190 mm[Hg] MD Lauren Godwin Work Phone: [facility] 01-09-2024 14:29-0400 Body height 187.96 cm MD Lauren Godwin Work Phone: [facility] 01-09-2024 14:29-0400 Body temperature 98.3 [degF] MD Lauren Godwin Work Phone: [facility] 01-09-2024 14:29-0400 Body weight 83 kg MD Lauren Godwin Work Phone: [facility] 12-18-2023 13:10-0400 Heart rate 85 /min MD Lauren Godwin Work Phone: [facility] 12-18-2023 13:09-0400 Body temperature 97.9 [degF] MD Lauren Godwin Work Phone: [facility] 12-18-2023 13:09-0400 Diastolic blood pressure 77 mm[Hg] MD Lauren Godwin Work Phone: [facility] 12-18-2023 13:09-0400 Respiratory rate 18 /min MD Lauren Godwin Work Phone: [facility] 12-18-2023 13:09-0400 SaO2% (BldA) [Mass fraction] 97 % MD Lauren Godwin Work Phone: [facility] 12-18-2023 13:09-0400 Systolic blood pressure 161 mm[Hg] MD Lauren Godwin Work Phone: [facility] 12-18-2023 13:06-0400 Body height 186.69 cm MD Lauren Godwin Work Phone: [facility] 12-18-2023 13:06-0400 Body weight 81 kg MD Lauren Godwin Work Phone: [facility] 03-03-2023 13:30-0400 Diastolic blood pressure 100 mm[Hg] MD Lauren Godwin Work Phone: [facility] 03-03-2023 13:30-0400 Heart rate 59 /min MD Lauren Godwin Work Phone: [facility] 03-03-2023 13:30-0400 Respiratory rate 18 /min MD Lauren Godwin Work Phone: [facility] 03-03-2023 13:30-0400 SaO2% (BldA) [Mass fraction] 99 % MD Lauren Godwin Work Phone: [facility] 03-03-2023 13:30-0400 Systolic blood pressure 160 mm[Hg] MD Lauren Godwin Work Phone: [facility] 03-03-2023 11:36-0400 Body height 175.26 cm MD Lauren Godwin Work Phone: [facility] 03-03-2023 11:36-0400 Body temperature 98 [degF] MD Lauren Godwin Work Phone: [facility] 03-03-2023 11:36-0400 Body weight 84.3 kg MD Lauren Godwin Work Phone: [facility] Encounters Encounter Date Encounter Type Care Provider Facility Start: 11-14-2024 End: 11-14-2024 ambulatory [facility] Start: 11-05-2024 End: 11-05-2024 ambulatory MARIBEL BOJORQUEZ Not Available Start: 10-02-2024 End: 10-02-2024 ambulatory CHRISTMADAIER RENO Not Available Start: 09-24-2024 End: 09-24-2024 ambulatory [facility] Start: 09-19-2024 End: 09-19-2024 Bamboo flowsheet Christopher [...] 08-09-2024 Emergency department patient visit SHIV DICKERSON [facility] Start: 04-06-2024 End: 04-06-2024 ambulatory [facility] Start: 01-09-2024 End: 01-09-2024 Emergency department patient visit Lauren Godwin Facility:[facility] Start: 01-09-2024 End: 01-09-2024 Emergency department patient visit MD Lauren Godwin Work Phone: [facility] Work Phone: Start: 12-18-2023 End: 12-18-2023 Emergency department patient visit Marie Phil Meli Facility:[facility] Start: 12-18-2023 End: 12-18-2023 Emergency department patient visit MD Lauren Godwin Work Phone: [facility] Work Phone: Start: 12-09-2023 End: 12-09-2023 ambulatory [facility] Start: 03-03-2023 End: 03-03-2023 Emergency department patient visit Ramiro Cortez Facility:[facility] Start: 03-03-2023 End: 03-03-2023 Emergency department patient visit MD Lauren Godwin Work Phone: [facility] Work Phone: Start: 01-10-2023 End: 01-11-2023 Evaluation and management of inpatient DR DOCTOR VELAZCO Facility:H1 Procedures Date Procedure Procedure Detail Performing Clinician Start: 01-09-2024 CT angiography of thorax MD aLuren Godwin Work Phone: Start: 01-09-2024 Plain chest X-ray MD Valdivia Work Phone: Start: 03-03-2023 Plain chest X-ray MD Valdivia Work Phone: Plan of Treatment Date Care Activity Detail Author Start: 11-05-2024 End: 11-05-2024 Patient encounter procedure 11/05/2024 9:00 AM EDT Office Visit MONA SANDOVAL [address] [place] [id number] Maribel Bojorquez DO [address] [place] [address] MONA SANDOVAL Start: 09-20-2024 End: 09-20-2024 Clinical Support 09/20/2024 8:45 AM EST Clinical Support MONA SANDOVAL [address] [facility] [place] [place] [address] MONA SANDOVAL Start: 09-19-2024 End: 09-19-2025 EEG, Including Recording Awake or Asleep EEG, Including Recording Awake or Asleep Neurology Routine Loss of consciousness ([facility]) Expected: 09/19/2024 (Approximate), Expires: 09/19/2025 [facility] Work Phone: Comment on above: Expected: 09/19/2024 (Approximate), Expires: 09/19/2025 Start: 09-19-2024 End: 09-19-2024 Patient encounter procedure 09/19/2024 9:00 AM EST Office Visit MONA SANDOVAL [address] [facility] [place] [id number] Maribel Bojorquez DO [address] [facility] [place] [address] Arrived MONA SANDOVAL Comment on above: Arrived Start: 04-15-2024 Influenza vaccination Influenza Vacc ine (#1) [facility] Start: 12-18-2023 [facility] Start: 2014 Pneumococcal Vaccine : 65+ Years (1 of 1 - PCV) Pneumococcal Vaccine: 65+ Years (1 of 1 - PCV) [facility] Start: 1950 Screening for malign ant neoplasm of colon [facility] Healthcare Patient Education [facility] Work Phone: Patient referral [facility] Work Phone: Immunizations Immunization Date Immunization Notes Care Provider Fa cility 09-21-2023 influenza virus vaccine, unspecified formulation Maribel Bojorquez DO Work Phone: [facility] Payers Date Payer Category Payer Medicare (Managed Care) [employer] [id number] 2023 Self-pay [id number] 2022 Unknown [id number] 1960 Medicare [id number] 1950 Unknown [id number] 1949 Unknown [id number] [id number] 1949 Unknown [id number] [id number] 1949 Unknown [id number] [id number] 1949 Unknown [id number] [id number] Unknown [id number] [id number] Unknown [id number] [id number] Unknown [id number] [id number] Social History Date Type Detail Facility Start: 03-03-2023 End: 01-09-2024 Tobacco smoking status MAIS Ex-smoker (finding) [facility] Start: 1950 Sex Assigned At Male [facility] Tobacco smoking status [facility] Tobacco smoking consumption unknown [facility] Start: 1950 Sex assigned at Not on file [facility] Gender identity Not on file [employer] [facility] Progress note 11-14-2024 Note Date & Type Note Facility 11-14-2024 Note [place] Cardiology - [facility] Subjective Jeb Riddle is a [...] He was admitted to the hospital at [facility] and was started on anticoagulation therapy. [...] On 08/31/2024 he was admitted to the [facility] with small bowel obstruction secondary to [...] evaluated in the emergency room at the [facility] on 11/02/2024 because of episode of near syncope while having bowel movement. Troponin was negative twice, ECG showed sinus rhythm, presentation was suspicious of vasovagal attack he was given intravenous hydration and discharged from the emergency room. Today 11/14/2024 he was evaluated in the emergency room at the [facility] because of dizziness after recent increase in [...] Rate and Rhythm: (more content not included)... [facility] Progress note 09-24-2024 Note Date & Type Note Facility 09-24-2024 Note OR Cardiology - [facility] Subjective Jeb Riddle is a [...] He was admitted to the hospital at [facility] and was started on anticoagulation therapy. [...] On 08/31/2024 he was admitted to the [facility] with small bowel obstruction secondary to [...] mononitrate ER (Imdu (more content not included)... 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 He had taken a Seroquel the night [...] 2 years. He lost his job in [employer] and his house and has had issues [...] , wrist extensors , wrist flexor , progressive care manager strength 5/5. LUE Strength deltoid , biceps , triceps , wrist extensors , wrist flexor , progressive care manager strength 5/5. RLE Strength illopsoas, quadriceps, tibialis [...] reflex 2+ . Reese's sign negative. Coordination: [id number]-[id number] testing and rapid alternating movements are normal Gait: Normal Review and summary of old records: CT of the brain without contrast on 08/09/2024 with comparison to 07/14/2022: No acute intracranial pathology I have reviewed notations from [place] emergency department where this 73-year-old patient presented [...] orders for this visit: Loss of consciousness ([facility]) It is my impression that the [...] states he had a recent MRI at [facility] that was also unremarkable. He has [...] and return instructions documented in this encounter [facility] Progress note 04-06-2024 Note Date & Type Note Facility 04-06-2024 Note OR Cardiology - [facility] Subjective Jeb Riddle is a 73 y.o. year old male patient here for a follow up echo from January, he was amitted to [facility], for chest pain a couple weeks ago and had another echo. He had a lipid panel yesterday. At last appointment his statin was changed. 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 He still rides his bike to [employer] everyday, still active. Patient Active Problem List [...] He was admitted to the hospital at [facility] and was started on anticoagulation therapy. [...] metoprolol succinate XL (more content not included)... [facility] Progress note 12-09-2023 Note Date & Type Note Facility 12-09-2023 Note 8K can you read, out of the so I can make changes in [place] Cardiology - [facility] Subjective Jeb Riddle [...] presented to the emergency room at the [facility] and investigation including a CT scan [...] Rfl: 3 prav (more content not included)... [facility] Evaluation note Note Date & Type Note Facility Evaluation note No assessment information availa [facility] Work Phone: Evaluation note Note Date & Type Note Facility Evaluation note Diagnosis Loss of consciousness (CMS/HCC)- Primary Other alteration of consciousness documented in this encounter [facility] Hospital Discharge instructions Note Date & Type Note Facility Hospital Discharge instructions Additional Instructions Continue Pepcid once or twice a day as needed [place] diet Follow-up with your family doctor for recheck Return to the ER for worsening pain shortness of breath fever or any other concerns [facility] Work Phone: Reason for visit Narrative Consultation (Routine) - Closed Note Date & Type Note Facility Reason for visit Narrative Specialty Diagnoses / Procedures Referred By Contac t Referred To Contact Neurology Diagnoses Unspecified convulsions (CMS/HCC) Syncope and collapse Procedures MO OFFICE/OUTPATIENT [facility] 30 MINUTES Lauren Godwin MD [address] [place] [address] Phone: tel:[phone] fax: Maribel Bojorquez DO [address] [place] [address] Phone: tel: fax: Referral ID Status Reason Start Date Expiration Date V isits Requested Visits Authorized [id number] Closed Consult and Treat 08/17/2024 02/13/2025 1 [...] section and content) DATE CREATED AUTHOR 10/07/2021 [facility] dical Specialist DATE CREATED AUTHOR AUTHOR'S ORGANIZ ATION 01/21/2023 [facility] DATE CREATED AUTHOR AUTHOR'S ORGANIZ ATION 01/09/2024 [facility] DATE CREATED AUTHOR AUTHOR'S ORGANIZ ATION 08/10/2024 [facility] DATE CREATED AUTHOR AUTHOR'S ORGANIZ ATION 11/05/2024 [facility] dical Specialists EPIC DATE CREATED AUTHOR AUTHOR'S ORGANIZ ATION 11/17/2024 [facility] Care Teams (unrecognized sec tion and [...] BE BASED ON THE PRIMARY CLINICAL RECORDS. [facility]. provides no warranty or guarantee of the accuracy or completeness of information in this document.
[2024-11-30 04:27] LABS: PSA, Free 0.79 ng/mL; Prostate Specific Ag 4.4 ng/mL (0.0-4.0)
== END 2024-11-28 16:13 | disposition home or self-care (01) ==
PROVIDERS: Family Provider Family Medicine; PCP Family Medicine; Visit Provider Family Medicine
DX: Z12.5 Encounter for screening for malignant neoplasm of prostate (principal); R97.20 Elevated prostate specific antigen [PSA]
CPT/HCPCS: 36415; 84153; 84154

== ENCOUNTER 2024-11-30 07:04 | Emergency (ER) | payer MEDICARE, SELFPAY ==
[2024-11-30] VITALS (18 sets, daily range): BP systolic 98–186; BP diastolic 51–98; PULSE 47–124; TEMP 36.4; O2SAT 94–99; BMI 25.7
--- OUTSIDE RECORDS SUMMARY | 2024-11-30 07:09 | XMS_ITS | CCD ---
Author Organization [facility] Care Team Providers Care Retail Merchandising Specialist Name Role Phone DR BEHZAD CROCKER Primary Care Unavailable DANIEL ., JUNI Attending Unavailable DANIEL ., JUNI Admitting Unavailable DR ROBERT DAVENPORT V Consulting Unavailable PITER GROSSMAN Consulting Unavailable DANIEL ., JUNI Consulting Unavailable DIAB ., GRAYSON Consulting Unavailable ADITYA OATES Consulting Unavailable MD Lauren Godwin Primary Care Provider [phone] DO Ramiro Cortez Emergency Provider MD Lauren Godwin Primary Care Provider [phone] KYA Garrison Emergency Provider [phone] Bulldk, OPTICIAN APPRENTICE-BC Naima Phelan Emergency Provider Lauren Godwin Primary [...] Delaney Attending Unavailable LAUREN GODWIN Referring Unavailable MRAIBEL BOJORQUEZ Referring Unavailable MARIBEL BOJORQUEZ Attending Unavailable JESSICA FORRESTER Attending Unavailable JESSICA FORRESTER Attending Unavailable JESSICA FORRESTER Attending Unavailable JESSICA FORRESTER Attending Unavailable Jaun BRADSHAW Attending Unavailable Allergies Allergy Classification Reported Allergen(s) Allergy Type Date of Onset Reaction(s) Facility (2 sources) Fish derivative; Translations: [fish derived] Propensity to adverse reactions 03-03-20 Gastrointestinal Upset [facility] (1 source) atorvastatin; Translations: [ATORVASTATIN] Drug Allergy 04-06-20 [facility] Repository Medications Current Medications Medication Drug [...] disease (2 sources) Atherosclerotic heart disease of [place] coronary artery without angina pectoris; Translations: [Atherosclerotic heart disease of [place] coronary artery without angina pectoris] 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; convulsions (1 source) Unspecified convulsions; Translations: [Unspecified convulsions] Onset: 08-09-2024 Episodic Essential hypertension (3 sources) Essential (primary) hypertension; Translations: [ESSENTIAL PRIMARY HYPERTENSION] Onset: 01-12-2023 Chronic Other aftercare (1 source) halfway (current) use of systemic steroids; Translations: [SKILLED NURSING USE OF SYSTEMIC STEROIDS] Onset: 01-12-2023 Episodic Other aftercare (1 source) Other assisted (current) drug therapy; Translations: [OTH SKILLED NURSING CURRENT DRUG THERAPY] Onset: 01-12-2023 Episodic Other [...] Range Facility Office Visiton 11-14-2024 Follow-up visit [id number] Jeb Riddle 1950 M Date Provider Department Center 11/14/2024 JESSICA JAMISON MISSY Nicole Family History Problem Relation Age of Onset Diabetes Mother Coronary artery disease Mother Heart attack Father Diabetes Father Coronary artery disease Father Pulmonary embolism Brother Family Status - Relation Status Age at Mother Father Brother Level of Service:48491 NC OFFICE/OUTPATIENT ESTABLISHED MOD MDM 30 MIN Normal [facility] Office Visiton 09-24-2024 Follow-up visit [id number] Jeb Riddle 1950 M Date Provider Department Center 09/24/2024 JESSICA JAMISON MISSY Nicole Family History Problem Relation Age of Onset Diabetes Mother Coronary artery disease Mother Heart attack Father Diabetes Father Coronary artery disease Father Family Status - Relation Status Age at Mother Father Level of Service:44058 NC OFFICE/OUTPATIENT ESTABLISHED MOD MDM 30 MIN Normal [facility] CBC AND AUTO DIFFon 08-09-20 24 ABSOLUTE BASOPHIL 0.0 X10E9/L Normal 0.0-0.2 [facility] Comment on above: Performed By: #### 1 9123-9, 67379-3, CMP, 80810-1, 50762-4, CBCA, 5643-2, PINR #### [facility] ([id number]) [address] [place] [address], [place] [address] ABSOLUTE NEUTROPHIL 3.9 X10E9/L Normal 1.5-6.6 [facility] Comment on above: Performed By: #### 1 9123-9, 93244-6, CMP, 61684-8, 24307-9, CBCA, 5643-2, PINR #### [facility] ([id number]) [address] [place] [address] 56275 Basophils/100 WBC (Bld) 0.3 % Normal [facility] Comment on above: Performed By: #### 1 9123-9, 13812-2, CMP, 21567-8, 62762-5, CBCA, 5643-2, PINR #### [facility] ([id number]) [address] [place] [address] 53272 Eosinophils (Bld) [#/Vol] 0.1 10*3/uL Normal 0.0-0.4 [facility] Comment on above: Performed By: #### 1 9123-9, 59887-8, CMP, 30493-8, 68543-0, CBCA, 5643-2, PINR #### [facility] ([id number]) [address] [place] [address] 54366 Eosinophils/100 WBC (Bld) 1.4 % Normal [facility] Comment on above: Performed By: #### 1 9123-9, 69707-5, CMP, 89966-8, 05021-1, CBCA, 5643-2, PINR #### [facility] ([id number]) [address] [place] [address] 01825 Erythrocyte distribution width (RBC) [Ratio] 13.0 % Normal 11.5-15.0 [facility] Comment on above: Performed By: #### 1 9123-9, 39746-8, CMP, 91020-2, 54039-3, CBCA, 5643-2, PINR #### [facility] ([id number]) [address] [place] [address] 78997 Hematocrit (Bld) [Volume fraction] 35.7 % Low 39-49 [facility] Comment on above: Performed By: #### 1 9123-9, 74569-8, CMP, 18235-4, 18193-4, CBCA, 5643-2, PINR #### [facility] ([id number]) [address] [place] [address] 53279 Hemoglobin (Bld) [Mass/Vol] 12.3 g/dL Low 13.0-17.0 [facility] Comment on above: Performed By: #### 1 9123-9, 12879-1, CMP, 79041-5, 19851-5, CBCA, 5643-2, PINR #### [facility] ([id number]) [address] [place] [address] 08680 Lymphocytes (Bld) [#/Vol] 1.1 10*3/uL Normal 1.0-3.5 [facility] Comment on above: Performed By: #### 1 9123-9, 23145-8, CMP, 44982-1, 68719-2, CBCA, 5643-2, PINR #### [facility] ([id number]) [address] [place] [address] 83762 Lymphocytes/100 WBC (Bld) 21.0 % Normal [facility] Comment on above: Performed By: #### 1 9123-9, 83489-6, CMP, 58248-8, 64145-8, CBCA, 5643-2, PINR #### [facility] ([id number]) [address] [place] [address] 38834 MCH (RBC) [Entitic mass] 33.2 pg Normal 27-34 [facility] Comment on above: Performed By: #### 1 9123-9, 35299-3, CMP, 41205-5, 39998-3, CBCA, 5643-2, PINR #### [facility] ([id number]) [address] [place] [address] 91261 MCHC (RBC) [Mass/Vol] 34.3 g/dL Normal 32-36 [facility] Comment on above: Performed By: #### 1 9123-9, 93845-9, CMP, 90083-9, 42860-2, CBCA, 5643-2, PINR #### [facility] ([id number]) [address] [place] [address] 90307 MCV (RBC) [Entitic vol] 97 fL Normal 80-100 [facility] Comment on above: Performed By: #### 1 9123-9, 11802-2, CMP, 06372-8, 00970-1, CBCA, 5643-2, PINR #### [facility] ([id number]) [address] [place] [address] 33652 Monocytes (Bld) [#/Vol] 0.2 10*3/uL Normal 0-0.9 [facility] Comment on above: Performed By: #### 1 9123-9, 16123-1, CMP, 81898-5, 74434-5, CBCA, 5643-2, PINR #### [facility] ([id number]) [address] [place] [address] 85413 Monocytes/100 WBC (Bld) 4.5 % Normal [facility] Comment on above: Performed By: #### 1 9123-9, 64856-5, CMP, 44035-8, 90028-7, CBCA, 5643-2, PINR #### [facility] ([id number]) [address] [place] [address] 38404 Neutrophils/100 WBC (Bld) 72.8 % Normal [facility] Comment on above: Performed By: #### 1 9123-9, 52929-4, CMP, 90058-4, 75791-2, CBCA, 5643-2, PINR #### [facility] ([id number]) [address] [place] [address] 79812 Platelet mean volume (Bld) [Entitic vol] 7.7 fL Normal 7-12 [facility] Comment on above: Performed By: #### 1 9123-9, 98431-1, CMP, 52562-4, 81347-0, CBCA, 5643-2, PINR #### [facility] ([id number]) [address] [place] [address] 78163 Platelets (Bld) [#/Vol] 208 10*3/uL Normal 150-450 [facility] Comment on above: Performed By: #### 1 9123-9, 68908-8, CMP, 10366-6, 66588-2, CBCA, 5643-2, PINR #### [facility] ([id number]) [address] [place] [address] 16389 RBC COUNT 3.69 X10E12/L Low 4.10-5.70 [facility] Comment on above: Performed By: #### 1 9123-9, 34666-3, CMP, 57324-6, 72007-0, CBCA, 5643-2, PINR #### [facility] ([id number]) [address] [place] [address] 54330 WBC (Bld) [#/Vol] 5.4 10*3/uL Normal 4.0-11.0 [facility] Comment on above: Performed By: #### 1 9123-9, 29183-4, CMP, 35709-3, 21791-5, CBCA, 5643-2, PINR #### [facility] ([id number]) [address] [place] [address] 49909 COMPREHENSIVE METABOLIC PANE Morgan 08-09-2024 Albumin [Mass/Vol] 3.5 g/dL Normal 3.2-5.3 [facility] Comment on above: Performed By: #### 1 9123-9, 16917-6, CMP, 01978-2, 34907-0, CBCA, 5643-2, PINR #### [facility] ([id number]) [address] [place] [address] 98056 ALP [Catalytic activity/Vol] 56 U/L Normal 39-130 [facility] Comment on above: Performed By: #### 1 9123-9, 55271-6, CMP, 56209-5, 29309-9, CBCA, 5643-2, PINR #### [facility] ([id number]) [address] [place] [address] 42240 ALT [Catalytic activity/Vol] 25 U/L Normal 0-40 [facility] Comment on above: Performed By: #### 1 9123-9, 25866-4, CMP, 14267-0, 02389-9, CBCA, 5643-2, PINR #### [facility] ([id number]) [address] [place] [address] 89149 Anion gap [Moles/Vol] 7 mmol/L Normal 5-15 [facility] Comment on above: Performed By: #### 1 9123-9, 45975-4, CMP, 83716-9, 24629-5, CBCA, 5643-2, PINR #### [facility] ([id number]) [address] [place] [address] 62668 AST [Catalytic activity/Vol] 19 U/L Normal 0-41 [facility] Comment on above: Performed By: #### 1 9123-9, 94063-1, CMP, 97396-3, 64729-6, CBCA, 5643-2, PINR #### [facility] ([id number]) [address] [place] [address] 80810 Bilirubin [Mass/Vol] 0.4 mg/dL Normal 0.3-1.2 [facility] Comment on above: Performed By: #### 1 9123-9, 20038-2, CMP, 86923-6, 95647-2, CBCA, 5643-2, PINR #### [facility] ([id number]) [address] [place] [address] 40319 Calcium [Mass/Vol] 8.8 mg/dL Normal 8.5-10.5 [facility] Comment on above: Performed By: #### 1 9123-9, 95735-4, CMP, 57317-2, 50473-8, CBCA, 5643-2, PINR #### [facility] ([id number]) [address] [place] [address] 42402 Chloride [Moles/Vol] 108 mmol/L Normal 98-109 [facility] Comment on above: Performed By: #### 1 9123-9, 85249-4, CMP, 54393-9, 13995-8, CBCA, 5643-2, PINR #### [facility] ([id number]) [address] [place] [address] 84578 CO2 [Moles/Vol] 23 mmol/L Normal 22-32 [facility] Comment on above: Performed By: #### 1 9123-9, 50421-1, CMP, 35552-9, 01702-3, CBCA, 5643-2, PINR #### [facility] ([id number]) [address] [place] [address] 06330 Creatinine [Mass/Vol] 1.37 mg/dL High 0.70-1.20 [facility] Comment on above: Result Comment: METH OD TRACEABLE TO IDMS STANDARD Performed By: #### 1 9123-9, 27768-8, CMP, 29420-3, 64717-6, CBCA, 5643-2, PINR #### [facility] ([id number]) [address] [place] [address] 64936 GFR/1.73 sq M.predicted among non-blacks MDRD (S/P/Bld) [Vol rate/Area] 54 mL/min/{1.73_m2} Low >59 [facility] Comment on above: Result Comment: Reported eGFR is based on the CKD-EPI 2020 equation that does not use a race coefficient. Performed By: #### 1 9123-9, 38754-9, CMP, 44266-1, 15290-3, CBCA, 5643-2, PINR #### [facility] ([id number]) [address] [place] [address] 31691 Glucose [Mass/Vol] 155 mg/dL High 65-99 [facility] Comment on above: Performed By: #### 1 9123-9, 24458-2, CMP, 92253-6, 97120-2, CBCA, 5643-2, PINR #### [facility] ([id number]) [address] [place] [address] 29098 Potassium [Moles/Vol] 4.3 mmol/L Normal 3.5-5.0 [facility] Comment on above: Performed By: #### 1 9123-9, 26281-1, CMP, 69207-7, 98055-8, CBCA, 5643-2, PINR #### [facility] ([id number]) [address] [place] [address] 86830 Protein [Mass/Vol] 6.0 g/dL Normal 6.0-8.0 [facility] Comment on above: Performed By: #### 1 9123-9, 97025-5, CMP, 82213-7, 38367-4, CBCA, 5643-2, PINR #### [facility] ([id number]) [address] [place] [address] 85273 Sodium [Moles/Vol] 138 mmol/L Normal 134-146 [facility] Comment on above: Performed By: #### 1 9123-9, 09759-9, CMP, 97863-5, 21482-9, CBCA, 5643-2, PINR #### [facility] ([id number]) [address] [place] [address] 36034 Urea nitrogen [Mass/Vol] 25 mg/dL Normal 5- [facility] Comment on above: Performed By: #### 1 9123-9, 45843-3, CMP, 80687-5, 91262-9, CBCA, 5643-2, PINR #### [facility] ([id number]) [address] [place] [address] BRAIN WO CONTon CT BRAIN WO [...] Moran MD on 08/09/2024 12:54 PM Normal [facility] DRUG SCREEN, URINEon 024 AMPHETAMINE/METHAMP Negative Normal NEG [facility] Comment on above: Result Comment: AMPH /METH screening cut off = 1000 ng/mL Performed By: #### 1 9123-9, 00971-6, CMP, 54778-0, 40677-6, CBCA, 5643-2, PINR #### [facility] ([id number]) [address] [place] [address] 97713 BARBITURATES Negative Normal NEG [facility] Comment on above: Result Comment: Maria Eugenia iturates screening cut off value = 200 ng/mL Performed By: #### 1 9123-9, 38922-6, CMP, 09585-1, 00705-1, CBCA, 5643-2, PINR #### [facility] ([id number]) [address] [place] [address] 36859 BENZODIAZEPINES Negative Normal NEG [facility] Comment on above: Result Comment: Paulie odiazepines screening cut off value = 200 ng/mL Performed By: #### 1 9123-9, 61229-3, CMP, 11997-3, 68355-8, CBCA, 5643-2, PINR #### [facility] ([id number]) [address] [place] [address] 58954 CANNABINOIDS Negative Normal NEG [facility] Comment on above: Result Comment: Nora abinoids/THC screening cut off value = 50 ng/mL Performed By: #### 1 9123-9, 84096-6, CMP, 24524-6, 53565-5, CBCA, 5643-2, PINR #### [facility] ([id number]) [address] [place] [address] 33523 COCAINE METABOLITE Negative Normal NEG [facility] Comment on above: Result Comment: Coca ine screening cut off value = 300 ng/mL Performed By: #### 1 9123-9, 25398-2, [facility], 01546-2, 19930-1, CBCA, 5643-2, PINR #### [facility] ([id number]) [address] [place] [address] 00408 ECSTASY Negative Normal NEG [facility] Comment on above: Result Comment: Ecst asy screening cut off value = 500 ng/mL This report is intended for use in clinical monitoring or management of patients. Performed By: #### 1 9123-9, 71095-2, CMP, 45931-5, 80260-5, CBCA, 5643-2, PINR #### [facility] ([id number]) [address] [place] [address] 84970 METHADONE Negative Normal NEG [facility] Comment on above: Result Comment: Meth adone screening cut off value = 300 ng/mL. Performed By: #### 1 9123-9, 36418-6, CMP, 50793-0, 32297-9, CBCA, 5643-2, PINR #### [facility] ([id number]) [address] [place] [address] 34480 OPIATES Negative Normal NEG [facility] Comment on above: Result Comment: Opia brennen screening cut off value = 300 ng/mL NOTE: This test is used for the detection of codeine, hydrocodone (>1000 ng/mL), morphine and hydromorphone (>900 ng/mL) in urine. Performed By: #### 1 9123-9, 12050-5, CMP, 22292-5, 19008-9, CBCA, 5643-2, PINR #### [facility] ([id number]) [address] [place] [address] 24629 OXYCODONE Negative Normal NEG [facility] Comment on above: Result Comment: Oxyc odone screening cut off value = 300 ng/mL NOTE: This test is used for the detection of oxycodone and oxymorphone in urine. Performed By: #### 1 9123-9, 79669-3, [facility], 78503-1, 91369-9, CBCA, 5643-2, PINR #### [facility] ([id number]) [address] [place] [address] 96398 PHENCYCLIDINE Negative Normal NEG [facility] Comment on above: Result Comment: Phen cyclidine screening cut off value = 25 ng/mL Performed By: #### 1 9123-9, 98635-4, CMP, 25890-9, 17674-6, CBCA, 5643-2, PINR #### [facility] ([id number]) [address] [place] [address] 86990 ETHANOLon 08-09-2024 Ethanol [Mass/Vol] mg/dL Normal 0.00-0.08 [facility] Comment on above: Result Comment: This report is intended for use in clinical monitoring or management of patients. Performed By: #### 1 9123-9, 05261-3, CMP, 85715-7, 82021-0, CBCA, 5643-2, PINR #### [facility] ([id number]) [address] [place] [address] 61611 Fibrin D-dimer DDU (PPP) [Ma ss/Vol]on 08-09-2024 D DIMER 167 ng/mL DDU Normal <255 [facility] Comment on above: Result Comment: Results <255 ng/mL DDU: The presence of a VTE can safely be excluded with a negative D-Dimer result and Wells score. A negative result doesn't exclude the possibility of DIC. The test be repeated along with other diagnostic tests if the patient's symptoms persist or worsen. [email or web address] Performed By: #### 1 9123-9, 66743-7, [facility], 79476-0, 95598-3, CBCA, 5643-2, PINR #### [facility] ([id number]) [address] [place] [address] 96188 MAGNESIUMon 08-09-2024 Magnesium [Mass/Vol] 1.4 mg/dL Low 1.8-2.6 [facility] Comment on above: Performed By: #### 1 9123-9, 42534-4, [facility], 05374-2, 42772-4, CBCA, 5643-2, PINR #### [facility] ([id number]) [address] [place] [address] 33523 PROTIME AND INRon 08-09-2024 INR Coag (PPP) [Relative time] 1.2 {INR} High 0.8-1.1 [facility] Comment on above: Performed By: #### 1 9123-9, 25112-2, CMP, 70985-5, 13091-8, CBCA, 5643-2, PINR #### [facility] ([id number]) [address] [place] [address] 86406 PT Coag (PPP) [Time] 14.3 s High 9.8-13.2 [facility] Comment on above: Result Comment: NEW REFERENCE RANGE Performed By: #### 1 9123-9, 33926-0, CMP, 50915-0, 60762-5, CBCA, 5643-2, PINR #### [facility] ([id number]) [address] [place] [address] 21559 Troponin I.cardiac High sens itivity method [Mass/Vol]on 08-09-2024 1 HOUR TROP I, HIGH SENSITIVITY 10 ng/L Normal <21 [facility] Comment on above: Performed By: #### 1 9123-9, 12693-2, CMP, 52849-2, 82403-2, CBCA, 5643-2, PINR #### [facility] ([id number]) [address] [place] [address] 58957 TROPONIN I, HIGH SENSITIVITY 8 ng/L Normal <21 [facility] Comment on above: Performed By: #### 1 9123-9, 56941-5, CMP, 03150-9, 04908-4, CBCA, 5643-2, PINR #### [facility] ([id number]) [address] [place] [address] 98530 URINALYSISon 08-09-2024 Bilirubin Ql (U) Negative Normal NEG [facility] Comment on above: Performed By: #### 1 9123-9, 55680-8, CMP, 93797-7, 32230-3, CBCA, 5643-2, PINR #### [facility] ([id number]) [address] [place] [address] 93719 BLOOD/HGB Negative Normal NEG [facility] Comment on above: Performed By: #### 1 9123-9, 39720-0, CMP, 32636-2, 85404-2, CBCA, 5643-2, PINR #### [facility] ([id number]) [address] [place] [address], [place] [address] Color (U) YELLOW Normal YELLOW [facility] Comment on above: Performed By: #### 1 9123-9, 02574-8, CMP, 14721-6, 63991-8, CBCA, 5643-2, PINR #### [facility] ([id number]) [address] [place] [address] 03035 Glucose Ql (U) Negative Normal NEG [facility] Comment on above: Performed By: #### 1 9123-9, 32798-3, CMP, 99413-3, 74248-5, CBCA, 5643-2, PINR #### [facility] ([id number]) [address] [place] [address], [place] [address] Ketones Ql (U) Negative Normal NEG [facility] Comment on above: Performed By: #### 1 9123-9, 20149-1, CMP, 54795-9, 65484-6, CBCA, 5643-2, PINR #### [facility] ([id number]) [address] [place] [address] 89980 Leukocyte esterase Test strip Ql (U) Negative Normal NEG [facility] Comment on above: Performed By: #### 1 9123-9, 24907-6, CMP, 65164-8, 35894-7, CBCA, 5643-2, PINR #### [facility] ([id number]) [address] [place] [address] 21458 Nitrite Ql (U) Negative Normal NEG [facility] Comment on above: Performed By: #### 1 9123-9, 28826-9, CMP, 92183-0, 36372-1, CBCA, 5643-2, PINR #### [facility] ([id number]) [address] [place] [address] 72471 pH (U) 6.0 [pH] Normal 5.0-8.5 [facility] Comment on above: Performed By: #### 1 9123-9, 20822-0, CMP, 33849-8, 21277-1, CBCA, 5643-2, PINR #### [facility] ([id number]) [address] [place] [address] 69188 Protein Ql (U) Negative Normal NEG [facility] Comment on above: Performed By: #### 1 9123-9, 70131-7, CMP, 72749-8, 82813-4, CBCA, 5643-2, PINR #### [facility] ([id number]) [address] [place] [address] 11461 Specific gravity (U) [Rel density] 1.025 Normal 1.003-1.03 5 [facility] Comment on above: Performed By: #### 1 9123-9, 93197-5, CMP, 16532-3, 60040-5, CBCA, 5643-2, PINR #### [facility] ([id number]) [address] [place] [address] 53141 TURBIDITY CLEAR Normal CLEAR [facility] Comment on above: Performed By: #### 1 9123-9, 65737-7, CMP, 90502-8, 25632-6, CBCA, 5643-2, PINR #### [facility] ([id number]) [address] [place] [address] 95989 Urobilinogen Qn (U) 0.2 {Temo'U}/dL Normal <1.1 [facility] Comment on above: Performed By: #### 1 9123-9, 28666-3, CMP, 91616-3, 37001-2, CBCA, 5643-2, PINR #### [facility] ([id number]) [address] [place] [address] [place] [address] URN MACROSCOPIC NURon 2023 BILIRUBIN FRANKLIN Negative Normal NEG [facility] Comment on above: Performed By: #### N UM #### [facility] ([id number]) [address] [place] [address] [place] [address] BLOOD/HGB FR[place]LIN Negative Normal NEG [facility] Comment on above: Performed By: #### N UM #### [facility] ([id number]) [address] [place] [address] [place] [address] GLUCOSE [place] Negative Normal NEG [facility] Comment on above: Performed By: #### N UM #### [facility] ([id number]) [address] [place] [address] [place] [address] KETONES FRANKLIN Negative Normal NEG [facility] Comment on above: Performed By: #### N UM #### [facility] ([id number]) [address] [place] [address] [place] [address] LEUKOCYTE ESTERASE [place]LIN Negative Normal NEG [facility] Comment on above: Performed By: #### N UM #### [facility] ([id number]) [address] [place] [address], [place] [address] NITRITE FRANKLIN Negative Normal NEG [facility] Comment on above: Performed By: #### N UM #### [facility] ([id number]) [address] [place] [address] [place] [address] PH [place]ANKLIN 5.5 Normal 5.0-8.5 [facility] Center Comment on above: Performed By: #### N UM #### [facility] ([id number]) [address] [place] [address] [place] [address] PROTEIN FRANKLIN Negative Normal NEG [facility] Comment on above: Performed By: #### N UM #### [facility] ([id number]) [address] [place] [address] SPECIFIC GRAVITY FRANKLIN 1.020 Normal 1.003-1 .03 5 [facility] Comment on above: Performed By: #### N UM #### [facility] ([id number]) [address] [place] [address] UROBILINOGEN FRANKLIN 0.2 eu/dL Normal <1.1 [facility] Comment on above: Performed By: #### N UM #### [facility] ([id number]) [address] [place] [address] aPTT Coag (PPP) [Time]on aPTT Coag (Bld) [Time] 33 s Normal 26-37 [facility] Comment on above: Result Comment: NEW REFERENCE RANGE Performed By: #### 1 9123-9, 96455-4, CMP, 26899-8, 93345-0, CBCA, 5643-2, PINR #### [facility] ([id number]) [address] [place] [address] 36on 04-18-2024 36 From: Jessica muñoz MD Sent: 04/18/2024 12:32 PM EDT To: Yuridia Nuñez MA Subject: RE: Scan Please inform him that blood testing for clotting disorder is negative. He should follow up with Dr oGdwin for cancer screening. Pt has been notified [facility] Office Visiton 04-06-2024 Follow-up visit [id number] Jeb Riddle 1950 M Date Provider Department Center 04/06/2024 JESSICA JAMISON [facility] Lori [facility] Family History Problem Relation Age of Onset Diabetes Mother Coronary artery disease Mother Heart attack Father Diabetes Father Coronary artery disease Father Family Status - Relation Status Age at Mother Father Level of Service:29697 NC OFFICE/OUTPATIENT ESTABLISHED MOD MDM 30 MIN [facility] 36on 02-17-2024 36 Patient called back and said he is taking meds as prescribed at last visit with Dr. Forrester. I made him apt with Dr. Forrester end of Mar since he is not here in Apr. [facility] 36on 02-15-2024 36 Regarding echo from 02/02/2024: MD Yuridia Herman MA Has he been taking meds as I recommended at last visit? 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 He should come for a visit in 3 months. LM w/ sister Mary to return my call. [facility] Activated partial thrombopla stin time (aPTT) in platelet poor plasma by coagulation aOrdered By: Naima Boyd on 01-09-2024 aPTT Coag (PPP) [Time] 29.1 s 25.1-36.5 [facility] Comment on above: A hematocrit value g reater than 55% may lead to inaccurate results in coagulation testing. Patients having hematocrit values >55% require a special collection tube for coagulation studies. Please contact the laboratory at [phone] for redraw instructions. B-Type Natriuretic Peptideon 01-09-2024 Natriuretic peptide B (Bld) [Mass/Vol] 172.0 pg/mL High 5-100 [facility] Comment on above: Result Comment: PERF ORMED BY: [facility] [address] [place] [address] PATHOLOGIST LEADITE MAN RADHA BARRON M.D. Performed By: #### B HOT METAL CRANE OPERATOR, HS TROP, BMP, CK, DIFF CBC ####[place] [address] [place] [id number] [facility] Basic Metabolic Panelon 12-14 Anion gap [Moles/Vol] Not performed Normal 6.0-15.0 [facility] Comment on above: Performed By: #### B HOT METAL CRANE OPERATOR, HS TROP, BMP, CK, DIFF CBC ####[place] [address] [place] [id number] [facility] Calcium [Mass/Vol] 8.7 mg/dL Normal 8.6-10.3 [facility] Comment on above: Performed By: #### B HOT METAL CRANE OPERATOR, HS TROP, BMP, CK, DIFF CBC ####[place] [address] [place] [id number] [facility] Chloride [Moles/Vol] 109 mmol/L High 98-107 [facility] Comment on above: Performed By: #### B HOT METAL CRANE OPERATOR, HS TROP, BMP, CK, DIFF CBC ####[place] [address] [place] [id number] [facility] CO2 [Moles/Vol] 22.4 mmol/L Normal 21.0-31.0 [facility] Comment on above: Performed By: #### B HOT METAL CRANE OPERATOR, HS TROP, BMP, CK, DIFF CBC ####[place] [id number] [facility] Creatinine [Mass/Vol] 1.16 mg/dL Normal 0.70-1.30 [facility] Comment on above: Performed By: #### B HOT METAL CRANE OPERATOR, HS TROP, BMP, CK, DIFF CBC ####[place] [address] Creatinine Clr Calc Pharmacy 64.96 Normal [facility] Comment on above: Result Comment: PERF ORMED BY: [facility] [address] [place] [address] PATHOLOGIST LEADITE MAN RADHA BARRON M.D. Performed By: #### B HOT METAL CRANE OPERATOR, HS TROP, BMP, CK, DIFF CBC ####[place] [id number] [facility] GFR/1.73 sq M.predicted MDRD (S/P/Bld) [Vol rate/Area] mL/min/{1.73_m2} Normal [facility] Comment on above: Performed By: #### B HOT METAL CRANE OPERATOR, HS TROP, BMP, CK, DIFF CBC ####[place] [id number] [facility] Glucose [Mass/Vol] 95 mg/dL Normal 70-100 [facility] Comment on above: Result Comment: [place] Glucose Reference Range is dependent on time and content of last meal. Glucose of more than 200 mg/dL in a nonstressed, ambulatory subject supports the diagnosis of Diabetes Mellitus. ADA recommended reference range Performed By: #### B HOT METAL CRANE OPERATOR, HS TROP, BMP, CK, DIFF CBC ####[facility] Potassium Normal 3.5-5.1 [facility] Comment on above: Result Comment: Spec imen hemolyzed, redraw requested Performed By: #### B HOT METAL CRANE OPERATOR, HS TROP, BMP, CK, DIFF CBC ####[place] [address] Sodium [Moles/Vol] 142 mmol/L Normal 136-145 [facility] Comment on above: Performed By: #### B HOT METAL CRANE OPERATOR, HS TROP, BMP, CK, DIFF CBC ####[place] [address] Urea nitrogen [Mass/Vol] 20 mg/dL Normal 7-25 [facility] Comment on above: Performed By: #### B HOT METAL CRANE OPERATOR, HS TROP, BMP, CK, DIFF CBC ####[place] [address] Basophils Auto (Bld) [#/Vol] Ordered By: Naima Boyd on 01-09-2024 Basophils (Bld) [#/Vol] N/A [facility] Basophils/100 WBC Auto (Bld) Ordered By: Naima Rutherfordore on 01-09-2024 Basophils/100 WBC (Bld) N/A [facility] Basophils/100 WBC Manual cnt (Bld)Ordered By: Naima Boyd on 01-09-2024 Basophils/100 WBC (Bld) 0 % 0-2 [facility] CT angio chest PE protocolon 01-09-2024 CT angio chest PE protocol [facility] [address] [place] [address] [place] [address] CT Scan Report Signed Patient: Jeb Riddle MR#: [id number] : 1950 Acct:[id number] Age/Sex: 73 / M ADM Date: 01/09/24 Loc: ER Room: Type: [facility] ER Attending Dr: Copies to: SABA [...] Jeb Collins M.D.01/09/2024 6:17 PM Dictation Location: [place] [address] Transcribed By: [facility] 01/09/241816 Dictated By: Jeb Collins II, MD 01/09/241810 Signed By: 01/09/241816 Normal [facility] Calcium [Mass/volume] in Ser um or PlasmaOrdered By: Naima Boyd on 01-09-2024 Calcium [Mass/Vol] 8.7 mg/dL 8.6-10.3 [facility] Carbon dioxide, total [Moles /volume] in Serum or PlasmaOrdered By: Naima Boyd on 01-09-2024 CO2 [Moles/Vol] 22.4 mmol/L 21.0-31.0 [facility] Chloride [Moles/volume] in S pooja or PlasmaOrdered By: Naima Boyd on 01-09-2024 Chloride [Moles/Vol] 109 mmol/L 98-107 [facility] Coagulation Profileon 2023 aPTT Coag (Bld) [Time] 29.1 s Normal 25.1-36.5 [facility] Comment on above: Order Comment: REDRA W Result Comment: A he matocrit value greater than 55% may lead to inaccurate results in coagulation testing. Patients having hematocrit values >55% require a special collection tube for coagulation studies. Please contact the laboratory at [phone] for redraw instructions. Performed By: #### P P, DDIMER ####[place] [address] [place] [phone] [facility] INR Coag (PPP) [Relative time] 1.0 {INR} Normal [facility] Comment on above: Order Comment: [...] 4.5 Performed By: #### P P, DDIMER ####[facility] [place] [id number] [facility] PT Coag (PPP) [Time] 11.9 s Normal 9.0-12.9 [facility] Comment on above: Order Comment: REDRA W Result Comment: A he matocrit value greater than 55% may lead to inaccurate results in coagulation testing. Patients having hematocrit values >55% require a special collection tube for coagulation studies. Please contact the laboratory at [phone] for redraw instructions. Performed By: #### P P, DDIMER ####[facility] [place] [address] [facility] Creatine Kinaseon 01-09-2024 CK [Catalytic activity/Vol] 81 U/L Normal 30-223 [facility] Comment on above: Performed By: #### B HOT METAL CRANE OPERATOR, HS TROP, BMP, CK, DIFF CBC ####[facility] [place] [id number] [facility] Creatine kinase [Enzymatic a ctivity/volume] in Serum or PlasmaOrdered By: Naima Bullimore on 01-09-2024 CK [Catalytic activity/Vol] 81 U/L 30- [facility] Creatinine [Mass/volume] in Serum or PlasmaOrdered By: Naima Bullimore on 01-09-2024 Creatinine [Mass/Vol] 1.16 mg/dL 0.70-1.30 [facility] D-Dimer High Sensitivityon 0 01-09-2024 D-Dimer High Sensitivity 1905 ng/mL High 0-243 [facility] Comment on above: Order Comment: [...] coagulation studies. Please contact the laboratory at [phone] for redraw instructions. PERFORMED BY: [facility] [address] [place] [address] PATHOLOGIST LEADITE MAN RADHA BARRON M.D. Performed By: #### P P, DDIMER ####[facility] [place] [id number] [facility] Diff and CBCon 01-09-2024 Basophils/100 WBC (Bld) 0 % Normal 0-2 [facility] Comment on above: Performed By: #### B HOT METAL CRANE OPERATOR, HS TROP, BMP, CK, DIFF CBC ####[address] Eosinophils/100 WBC (Bld) 4 % High 1-3 [facility] Comment on above: Performed By: #### B HOT METAL CRANE OPERATOR, HS TROP, BMP, CK, DIFF CBC ####[address] Erythrocyte distribution width (RBC) [Ratio] 14.9 % High 12.0-14.8 [facility] Comment on above: Performed By: #### B HOT METAL CRANE OPERATOR, HS TROP, BMP, CK, DIFF CBC ####[address] Hematocrit (Bld) [Volume fraction] 41.9 % Normal 38.8-50.0 [facility] Comment on above: Performed By: #### B HOT METAL CRANE OPERATOR, HS TROP, BMP, CK, DIFF CBC ####[address] Hemoglobin (Bld) [Mass/Vol] 14.1 g/dL Normal 13.0-17.0 [facility] Comment on above: Performed By: #### B HOT METAL CRANE OPERATOR, HS TROP, BMP, CK, DIFF CBC ####[address] Lymphocytes/100 WBC (Bld) 27 % Normal 18-42 [facility] Comment on above: Performed By: #### B HOT METAL CRANE OPERATOR, HS TROP, BMP, CK, DIFF CBC ####[address] MCH (RBC) [Entitic mass] 32.0 pg Normal 27.5-35.2 [facility] Comment on above: Performed By: #### B HOT METAL CRANE OPERATOR, HS TROP, BMP, CK, DIFF CBC ####[address] MCV (RBC) [Entitic vol] 95.1 fL Normal 83.5-101 [facility] Comment on above: Performed By: #### B HOT METAL CRANE OPERATOR, HS TROP, BMP, CK, DIFF CBC ####[address] Mean Corpuscular HGB Conc 33.6 g/dL Normal 32.5-35.6 [facility] Comment on above: Performed By: #### B HOT METAL CRANE OPERATOR, HS TROP, BMP, CK, DIFF CBC ####[address] Monocytes/100 WBC (Bld) 25.58 % High 0.00-20.00 [facility] Comment on above: Result Comment: For adults in ED, MDW > 20.0 may be associated with a higher risk of sepsis during the first 12 hrs of hospital admission Performed By: #### B HOT METAL CRANE OPERATOR, HS TROP, BMP, CK, DIFF CBC ####[address] Monocytes/100 WBC (Bld) 7 % Normal 2-11 [facility] Comment on above: Performed By: #### B HOT METAL CRANE OPERATOR, HS TROP, BMP, CK, DIFF CBC ####[address] Nucleated Red Blood Cell 0 /100{WBC} Normal 0-0 [facility] Comment on above: Performed By: #### B HOT METAL CRANE OPERATOR, HS TROP, BMP, CK, DIFF CBC ####[address] Platelet Estimate Normal Normal Normal [facility] Comment on above: Performed By: #### B HOT METAL CRANE OPERATOR, HS TROP, BMP, CK, DIFF CBC ####[place] [id number] [facility] Platelet mean volume (Bld) [Entitic vol] 8.6 fL Normal 6.6-10.1 [facility] Comment on above: Performed By: #### B HOT METAL CRANE OPERATOR, HS TROP, BMP, CK, DIFF CBC ####[place] [id number] [facility] Platelet Morphology Normal Normal Normal [facility] Comment on above: Performed By: #### B HOT METAL CRANE OPERATOR, HS TROP, BMP, CK, DIFF CBC ####[address] Platelets (Bld) [#/Vol] 240 10*3/uL Normal 150-450 [facility] Comment on above: Performed By: #### B HOT METAL CRANE OPERATOR, HS TROP, BMP, CK, DIFF CBC ####[place] [id number] [facility] Plt Comment SEE COMMENT BELOW Normal [facility] Comment on above: Result Comment: NO C LOTS, NO CLUMPS, SHORT DRAW LFM PERFORMED BY: [facility] [address] [place] [address] PATHOLOGIST LEADITE MAN RADHA BARRON M.D. Performed By: #### B HOT METAL CRANE OPERATOR, HS TROP, BMP, CK, DIFF CBC ####[address] RBC (Bld) [#/Vol] 4.41 10*6/uL Normal 3.90-5.60 [facility] Comment on above: Performed By: #### B HOT METAL CRANE OPERATOR, HS TROP, BMP, CK, DIFF CBC ####[address] RBC morphology finding Nom (Bld) Normal Normal Normal [facility] Comment on above: Performed By: #### B HOT METAL CRANE OPERATOR, HS TROP, BMP, CK, DIFF CBC ####[address] Segmented neutrophils/100 WBC (Bld) 62 % Normal 50-70 [facility] Comment on above: Performed By: #### B HOT METAL CRANE OPERATOR, HS TROP, BMP, CK, DIFF CBC ####[address] WBC (Bld) [#/Vol] 7.6 10*3/uL Normal 4.1-10.5 [facility] Comment on above: Performed By: #### B HOT METAL CRANE OPERATOR, HS TROP, BMP, CK, DIFF CBC ####[address] WBC (Bld) [#/Vol] 8.4 10*3/uL Normal 4.1-10.5 [facility] Comment on above: Performed By: #### B HOT METAL CRANE OPERATOR, HS TROP, BMP, CK, DIFF CBC ####[facility] [id number] [address] ECG 12 lead ECGon 01-09-2024 ECG 12 lead ECG [facility] [address] [place] [address] [place] [address] Electrocardiograph Report Signed Patient: Jeb Riddle MR#: [id number] : 1950 Acct:[id number] Age/Sex: 73 / M ADM Date: 01/09/24 Loc: ER Room: Type: [facility] ER Attending Dr: Ordering Provider: SABA [...] ventricular complexes are now present Confirmed by TIMOTHY PATTERSON DO ([id number]) on 01/09/2024 6:28:14 PM Referred By: Electronically Signed By:TIMOTHY PATTERSON DO Transcribed By: MUS Signed By Timothy Patterson DO 1828 Normal [facility] Eosinophils Auto (Bld) [#/Vo l]Ordered By: Naima Boyd on 01-09-2024 Eosinophils (Bld) [#/Vol] N/A [facility] Eosinophils/100 WBC Auto (Bl d)Ordered By: Naima Boyd on 01-09-2024 Eosinophils/100 WBC (Bld) N/A [facility] Eosinophils/100 WBC Manual c nt (Bld)Ordered By: Naima Body on 01-09-2024 Eosinophils/100 WBC (Bld) 4 % 1-3 [facility] Erythrocyte distribution wid th Auto (RBC) [Ratio]Ordered By: Naima Boyd on 01-09-2024 Erythrocyte distribution width (RBC) [Ratio] 14.9 % 12.0-14.8 [facility] Fibrin D-dimer [Presence] in Platelet poor plasma by Latex agglutinationOrdered By: Naima Boyd on 01-09-2024 Fibrin D-dimer LA Ql (PPP) 1905 ng/mL 0-243 [facility] Comment on above: The reference range for [...] coagulation studies. Please contact the laboratory at [phone] for redraw instructions. Glucose [Mass/volume] in Ser um or PlasmaOrdered By: Naima Boyd on 01-09-2024 Glucose [Mass/Vol] 95 mg/dL 70-100 [facility] Comment on above: ADA recommended refe rence rangeRandom Glucose Reference Range is dependent on time and content of last meal. Glucose of more than 200 mg/dL in a nonstressed, ambulatory subject supports the diagnosis of Diabetes Mellitus. Hematocrit Auto (Bld) [Volum e fraction]Ordered By: Naima Boyd on 01-09-2024 Hematocrit (Bld) [Volume fraction] 41.9 % 38.8-50.0 [facility] Hemoglobin [Mass/volume] in BloodOrdered By: Naima Boyd on 01-09-2024 Hemoglobin (Bld) [Mass/Vol] 14.1 g/dL 13.0-17.0 [facility] INR in Platelet poor plasma by Coagulation assayOrdered By: Naima Boyd on 05-27-2024 INR Coag (PPP) [Relative time] 1.0 {INR} [facility] Comment on above: INR Therapeutic Rang e [...] RBC Auto (Bld) [#/Vol] 7.6 10*3/uL 4.1-10.5 [facility] Lymphocytes Auto (Bld) [#/Vo l]Ordered By: Naima Rutherfordore on 01-09-2024 Lymphocytes (Bld) [#/Vol] N/A [facility] Lymphocytes/100 WBC Auto (Bl d)Ordered By: Naima Godwinimore on 01-09-2024 Lymphocytes/100 WBC (Bld) N/A [facility] Lymphocytes/100 WBC Manual c nt (Bld)Ordered By: Naima Rutherfordore on 01-09-2024 Lymphocytes/100 WBC (Bld) 27 % 18-42 [facility] MCH Auto (RBC) [Entitic mass ]Ordered By: Naima Boyd on 01-09-2024 MCH (RBC) [Entitic mass] 32.0 pg 27.5-35.2 [facility] MCHC Auto (RBC) [Mass/Vol]Or dered By: Naima Bullimore on 01-09-2024 MCHC (RBC) [Mass/Vol] 33.6 g/dL 32.5-35.6 [facility] MCV Auto (RBC) [Entitic vol] Ordered By: Naima Godwinimore on 01-09-2024 MCV (RBC) [Entitic vol] 95.1 fL 83.5-101 [facility] Monocyte distribution width [Entitic volume] in Blood by AutomatedOrdered By: Naima Boyd on 01-09-2024 Monocyte distribution width Auto (Bld) [Entitic vol] 25.58 % 0.00-20.00 [facility] Comment on above: For adults in ED, MD W > 20.0 may be associated with a higher risk of sepsis during the first 12 hrs of hospital admission Monocytes Auto (Bld) [#/Vol] Ordered By: Naima Bullimore on 01-09-2024 Monocytes (Bld) [#/Vol] N/A [facility] Monocytes/100 WBC Auto (Bld) Ordered By: Naima Bullimore on 01-09-2024 Monocytes/100 WBC (Bld) N/A [facility] Monocytes/100 WBC Manual cnt (Bld)Ordered By: Naima Bullimore on 01-09-2024 Monocytes/100 WBC (Bld) 7 % 2-11 [facility] Natriuretic peptide B [Mass/ Vol]Ordered By: Naima Bullimore on 01-09-2024 Natriuretic peptide B (Bld) [Mass/Vol] 172.0 pg/mL 5-100 [facility] Neutrophils Auto (Bld) [#/Vo l]Ordered By: Naima Bullimore on 01-09-2024 Neutrophils (Bld) [#/Vol] N/A [facility] Neutrophils/100 WBC Auto (Bl d)Ordered By: Naima Bullimore on 01-09-2024 Neutrophils/100 WBC (Bld) N/A [facility] No Panel InformationOrdered By: Naima Boyd on 01-09-2024 Estimated GFR (CKD-EPI) > 60.0 mL/Min [facility] Creatinine Clearance (Chem 64.96 [facility] Platelet Comment See comment below [facility] Comment on above: NO CLOTS, NO CLUMPS, SHORT DRAW LFM Nucleated RBC/100 WBC Manual cnt (Bld) [Ratio]Ordered By: Naima Godwinimore on 01-09-2024 Nucleated RBC/100 WBC (Bld) [Ratio] 0 /100{WBC} 0-0 [facility] Nucleated erythrocytes [Pres ence] in Blood by Automated countOrdered By: Naimadevora Godwinimore on 01-09-2024 Nucleated RBC Auto Ql (Bld) N/A [facility] Platelet adequacy [Presence] in Blood by Light microscopyOrdered By: Naima Bullimore on 01-09-2024 Platelets LM Ql (Bld) Normal Normal [facility] Platelet mean volume Auto (B ld) [Entitic vol]Ordered By: Naima Bullimore on 01-09-2024 Platelet mean volume (Bld) [Entitic vol] 8.6 fL 6.6-10.1 [facility] Platelet morphology finding [Identifier] in BloodOrdered By: Naima Bullimore on 01-09-2024 Platelet morphology finding Nom (Bld) Normal Normal [facility] Platelets Auto (Bld) [#/Vol] Ordered By: Naima Bullimore on 01-09-2024 Platelets (Bld) [#/Vol] 240 10*3/uL 150-450 [facility] Potassium [Moles/volume] in Serum or PlasmaOrdered By: Naima Bullimore on 01-09-2024 Potassium [Moles/Vol] 3.9 mmol/L 3.5-5.1 [facility] Prothrombin time (PT)Ordered By: Naima Bullimore on 01-09-2024 PT Coag (PPP) [Time] 11.9 s 9.0-12.9 [facility] Comment on above: A hematocrit value g reater than 55% may lead to inaccurate results in coagulation testing. Patients having hematocrit values >55% require a special collection tube for coagulation studies. Please contact the laboratory at [phone] for redraw instructions. RBC Auto (Bld) [#/Vol]Ordere d By: Naima Godwinimore on 01-09-2024 RBC (Bld) [#/Vol] 4.41 10*6/uL 3.90-5.60 [facility] RBC morphologyOrdered By: Sabine Boyd on 01-09-2024 RBC morphology finding Nom (Bld) Normal Normal [facility] Redraw Potassiumon Potassium [Moles/Vol] 3.9 mmol/L Normal 3.5-5.1 [facility] Comment on above: Result Comment: PERF ORMED BY: [facility] [address] [place] [address] PATHOLOGIST LEADITE MAN RADHA BARRON M.D. Performed By: #### R EDRAW K ####[facility] [id number] [place] [address] Segmented neutrophils/100 WB C Manual cnt (Bld)Ordered By: Naima Boyd on 01-09-2024 Segmented neutrophils/100 WBC (Bld) 62 % 50-70 [facility] Serum or plasma anion gap de terminationOrdered By: Naima Godwinimore on 01-09-2024 Anion gap [Moles/Vol] TNP [facility] Comment on above: Test not performed Sodium [Moles/volume] in Ser um or PlasmaOrdered By: Naima Godwinimore on 01-09-2024 Sodium [Moles/Vol] 142 mmol/L 136-145 [facility] Troponin I High Sensitivityo n 01-09-2024 Troponin I High Sensitivity 13.1 pg/mL Normal 0.0-20.0 [facility] Comment on above: Result Comment: PERF ORMED BY: [place] [address] PATHOLOGIST LEADITE MAN RADHA BARRON M.D. Performed By: #### H S TROP #### [facility] [address] [place] [address] Troponin I High Sensitivity 12.5 pg/mL Normal 0.0-20.0 [facility] Comment on above: Result Comment: PERF ORMED BY: [place] [address] PATHOLOGIST [employer]ADITE MAN RADHA BARRON M.D. Performed By: #### B HOT METAL CRANE OPERATOR, HS TROP, BMP, CK, DIFF CBC ####[facility] [id number] Troponin I.cardiac [Mass/vol ume] in Serum or Plasma by Detection limit <= 0.01 ng/Ordered By: Naima Boyd on 01-09-2024 Troponin I.cardiac DL <= 0.01 ng/mL [Mass/Vol] 13.1 pg/mL 0.0-20.0 [facility] Urea nitrogen [Mass/volume] in Serum or PlasmaOrdered By: Naima Boyd on 01-09-2024 Urea nitrogen [Mass/Vol] 20 mg/dL 03-08 [facility] WBC Auto (Bld) [#/Vol]Ordere d By: Naima Deb on 01-09-2024 WBC (Bld) [#/Vol] 8.4 10*3/uL 4.1-10.5 [facility] XR chest 2V*on 01-09-2024 XR chest 2V* [place] [id number] XRay Report Signed Patient: Jeb Riddle MR#: [id number] : 1950 Acct:[id number] Age/Sex: 73 / M ADM Date: 01/09/24 Loc: ER Room: Type: [facility] ER Attending Dr: Copies to: SABA [...] Jeb Collins M.D.01/09/2024 4:11 PM Dictation Location: [place] [address] Transcribed By: [facility] 01/09/24 1611 Dictated By: Jeb Collins II, MD 01/09/24 1610 Signed By: 01/09/24 1611 Normal [facility] ECG 12 lead ECGon 12-18-2023 ECG 12 lead ECG [address] [address] Electrocardiograph Report Signed Patient: Jeb Riddle MR#: [id number] : 1950 Acct:[id number] Age/Sex: 73 / M ADM Date: 12/18/23 Loc: ER Room: Type: [facility] ER Attending Dr: Ordering Provider: [...] was found Confirmed by RAMIRO CORTEZ DO ([id number]) on 12/18/2023 4:44:01 PM Referred By: Electronically Signed By:RAMIRO CORTEZ DO Transcribed By: MUS Signed By Ramiro Cortez DO 12/17 1644 Normal [facility] Office Visiton 12-09-2023 Follow-up visit [id number] Jeb Riddle 1950 M Date Provider Department Center 12/09/2023 JESSICA JAMISON [facility] Lori [facility] Family History Problem Relation Age of Onset Diabetes Mother Coronary artery disease Mother Heart attack Father Diabetes Father Coronary artery disease Father Family Status - Relation Status Age at Mother Father Level of Service:46481 NC OFFICE/OUTPATIENT ESTABLISHED MOD MDM 30 MIN Reason for Visit and Comments: Follow-up [354452] - 6 months Normal [facility] Activated partial thrombopla stin time (aPTT) in platelet poor plasma by coagulation aOrdered By: Ramiro Cortez on 03-03-2023 aPTT Coag (PPP) [Time] 29.7 s 25.1-36.5 [facility] B-Type Natriuretic Peptideon 03-03-2023 Natriuretic peptide B (Bld) [Mass/Vol] 52.0 pg/mL Normal 5-100 [facility] Comment on above: Result Comment: PERF ORMED BY: [facility] [address] [place] [address] PATHOLOGIST [employer] RADHA BARRON M.D. Performed By: #### C BC, CK, PT, PTT, BMP, HS TROP, BNP ####[address] Basic Metabolic Panelon 07-2 Anion gap [Moles/Vol] 10.6 mmol/L Normal 6.0-15.0 [facility] Comment on above: Performed By: #### C BC, CK, PT, PTT, BMP, HS TROP, BNP ####[address] Calcium [Mass/Vol] 8.6 mg/dL Normal 8.6-10.3 [facility] Comment on above: Performed By: #### C BC, CK, PT, PTT, BMP, HS TROP, BNP ####[address] Chloride [Moles/Vol] 108 mmol/L High 98-107 [facility] Comment on above: Performed By: #### C BC, CK, PT, PTT, BMP, HS TROP, BNP ####[address] CO2 [Moles/Vol] 24.6 mmol/L Normal 21.0-31.0 [facility] Comment on above: Performed By: #### C BC, CK, PT, PTT, BMP, HS TROP, BNP ####[address] Creatinine [Mass/Vol] 1.19 mg/dL Normal 0.70-1.30 [facility] Comment on above: Performed By: #### C BC, CK, PT, PTT, BMP, HS TROP, BNP ####[address] Creatinine Clr Calc Pharmacy 55.29 Normal [facility] Comment on above: Result Comment: PERF ORMED BY: [facility] [address] [place] [address] PATHOLOGIST [employer] RADHA BARRON M.D. Performed By: #### C BC, CK, PT, PTT, BMP, HS TROP, BNP ####[address] GFR/1.73 sq M.predicted MDRD (S/P/Bld) [Vol rate/Area] mL/min/{1.73_m2} Normal [facility] Comment on above: Performed By: #### C BC, CK, PT, PTT, BMP, HS TROP, BNP ####[place] [id number] [address] Glucose [Mass/Vol] 93 mg/dL Normal 70-100 [facility] Comment on above: Result Comment: [facility] Glucose Reference Range is dependent on time and content of last meal. Glucose of more than 200 mg/dL in a nonstressed, ambulatory subject supports the diagnosis of Diabetes Mellitus. ADA recommended reference range Performed By: #### C BC, CK, PT, PTT, BMP, HS TROP, BNP ####[place] [id number] [address] Potassium [Moles/Vol] 4.2 mmol/L Normal 3.5-5.1 [facility] Comment on above: Performed By: #### C BC, CK, PT, PTT, BMP, HS TROP, BNP ####[place] [id number] [facility] Sodium [Moles/Vol] 139 mmol/L Normal 136-145 [facility] Comment on above: Performed By: #### C BC, CK, PT, PTT, BMP, HS TROP, BNP ####[address] Urea nitrogen [Mass/Vol] 17 mg/dL Normal 7-25 [facility] Comment on above: Performed By: #### C BC, CK, PT, PTT, BMP, HS TROP, BNP ####[place] [id number] [facility] Basophils Auto (Bld) [#/Vol] Ordered By: Ramiro Cortez on 03-03-2023 Basophils (Bld) [#/Vol] 0.0 10*3/uL 0.0-0.2 [facility] Basophils/100 WBC Auto (Bld) Ordered By: Ramiro Cortez on 03-03-2023 Basophils/100 WBC (Bld) 0.4 % . [facility] Calcium [Mass/volume] in Ser um or PlasmaOrdered By: Ramiro Cortez on 03-03-2023 Calcium [Mass/Vol] 8.6 mg/dL 8.6-10.3 [facility] Carbon dioxide, total [Moles /volume] in Serum or PlasmaOrdered By: Ramiro Cortez on 03-03-2023 CO2 [Moles/Vol] 24.6 mmol/L 21.0-31.0 [facility] Chloride [Moles/volume] in S pooja or PlasmaOrdered By: Ramiro Cortez on 03-03-2023 Chloride [Moles/Vol] 108 mmol/L 98-107 [facility] Complete Blood Count Auto Di ffon 03-03-2023 Basophils (Bld) [#/Vol] 0.0 10*3/uL Normal 0.0-0.2 [facility] Comment on above: Result Comment: PERF ORMED BY: [place] [address] PATHOLOGIST [employer] RADHA BARRON M.D. Performed By: #### C BC, CK, PT, PTT, BMP, HS TROP, BNP #### [address] Basophils/100 WBC (Bld) 0.4 % Normal . [facility] Comment on above: Performed By: #### C BC, CK, PT, PTT, BMP, HS TROP, BNP #### [address] Eosinophils (Bld) [#/Vol] 0.2 10*3/uL Normal 0.0-0.45 [facility] Comment on above: Performed By: #### C BC, CK, PT, PTT, BMP, HS TROP, BNP #### [address] Eosinophils/100 WBC (Bld) 2.4 % Normal . [facility] Comment on above: Performed By: #### C BC, CK, PT, PTT, BMP, HS TROP, BNP #### [address] Erythrocyte distribution width (RBC) [Ratio] 13.0 % Normal 12.0-14.8 [facility] Comment on above: Performed By: #### C BC, CK, PT, PTT, BMP, HS TROP, BNP #### [address] Hematocrit (Bld) [Volume fraction] 38.3 % Low 38.8-50.0 [facility] Comment on above: Performed By: #### C BC, CK, PT, PTT, BMP, HS TROP, BNP #### [address] Hemoglobin (Bld) [Mass/Vol] 12.9 g/dL Low 13.0-17.0 [facility] Comment on above: Performed By: #### C BC, CK, PT, PTT, BMP, HS TROP, BNP #### [address] Lymphocytes (Bld) [#/Vol] 2.6 10*3/uL Normal 1.00-4.8 [facility] Comment on above: Performed By: #### C BC, CK, PT, PTT, BMP, HS TROP, BNP #### [address] Lymphocytes/100 WBC (Bld) 28.3 % Normal . [facility] Comment on above: Performed By: #### C BC, CK, PT, PTT, BMP, HS TROP, BNP #### [address] MCH (RBC) [Entitic mass] 30.8 pg Normal 27.5-35.2 [facility] Comment on above: Performed By: #### C BC, CK, PT, PTT, BMP, HS TROP, BNP #### [address] MCV (RBC) [Entitic vol] 91.9 fL Normal 83.5-101 [facility] Comment on above: Performed By: #### C BC, CK, PT, PTT, BMP, HS TROP, BNP #### [address] Mean Corpuscular HGB Conc 33.6 g/dL Normal 32.5-35.6 [facility] Comment on above: Performed By: #### C BC, CK, PT, PTT, BMP, HS TROP, BNP #### [address] Monocytes (Bld) [#/Vol] 0.6 10*3/uL Normal 0.0-0.8 [facility] Comment on above: Performed By: #### C BC, CK, PT, PTT, BMP, HS TROP, BNP #### [address] Monocytes/100 WBC (Bld) 24.67 % High 0.00-20.00 [facility] Comment on above: Result Comment: For adults in ED, MDW > 20.0 may be associated with a higher risk of sepsis during the first 12 hrs of hospital admission Performed By: #### C BC, CK, PT, PTT, BMP, HS TROP, BNP #### [address] Monocytes/100 WBC (Bld) 6.5 % Normal . [facility] Comment on above: Performed By: #### C BC, CK, PT, PTT, BMP, HS TROP, BNP #### [address] Neutrophils (Bld) [#/Vol] 5.7 10*3/uL Normal 1.8-7.7 [facility] Comment on above: Performed By: #### C BC, CK, PT, PTT, BMP, HS TROP, BNP #### [address] Neutrophils/100 WBC (Bld) 62.4 % Normal . [facility] Comment on above: Performed By: #### C BC, CK, PT, PTT, BMP, HS TROP, BNP #### [address] NRBC% 0.1 /100{WBC} Normal 0-0.5 [facility] Comment on above: Performed By: #### C BC, CK, PT, PTT, BMP, HS TROP, BNP #### [facility] [address] Platelet mean volume (Bld) [Entitic vol] 8.2 fL Normal 6.6-10.1 [facility] Comment on above: Performed By: #### C BC, CK, PT, PTT, BMP, HS TROP, BNP #### [facility] [address] Platelets (Bld) [#/Vol] 234 10*3/uL Normal 150-450 [facility] Comment on above: Performed By: #### C BC, CK, PT, PTT, BMP, HS TROP, BNP #### [facility] [address] RBC (Bld) [#/Vol] 4.17 10*6/uL Normal 3.90-5.60 [facility] Comment on above: Performed By: #### C BC, CK, PT, PTT, BMP, HS TROP, BNP #### [facility] [address] WBC (Bld) [#/Vol] 9.2 10*3/uL Normal 4.1-10.5 [facility] Comment on above: Performed By: #### C BC, CK, PT, PTT, BMP, HS TROP, BNP #### [facility] [address] Creatine Kinaseon 03-03-2023 CK [Catalytic activity/Vol] 125 U/L Normal 30-223 [facility] Comment on above: Performed By: #### C BC, CK, PT, PTT, BMP, HS TROP, BNP ####[facility] [id number] [place] [address] Creatine kinase [Enzymatic a ctivity/volume] in Serum or PlasmaOrdered By: Ramiro Cortez on 03-03-2023 CK [Catalytic activity/Vol] 125 U/L 30-223 [facility] Creatinine [Mass/volume] in Serum or PlasmaOrdered By: Ramiro Cortez on 03-03-2023 Creatinine [Mass/Vol] 1.19 mg/dL 0.70-1.30 [facility] ECG 12 lead ECGon 03-03-2023 ECG 12 lead ECG [facility] Main [address] [address] Electrocardiograph Report Signed Patient: Jeb Riddle MR#: [id number] : 1950 Acct:[id number] Age/Sex: 72 / M ADM Date: 03/03/23 Loc: ER Room: Type: [facility] ER Attending Dr: Ordering Provider: [...] ECGs available Confirmed by RAMIRO CORTEZ DO ([id number]) on 03/03/2023 8:14:27 PM Referred By: Electronically Signed By:RAMIRO CORTEZ DO Transcribed By: MUS Signed By Ramiro Cortez DO 03/03 Normal [facility] Eosinophils Auto (Bld) [#/Vo l]Ordered By: Ramiro Cortez on 03-03-2023 Eosinophils (Bld) [#/Vol] 0.2 10*3/uL 0.0-0.45 [facility] Eosinophils/100 WBC Auto (Bl d)Ordered By: Ramiro Cortez on 03-03-2023 Eosinophils/100 WBC (Bld) 2.4 % . [facility] Erythrocyte distribution wid th Auto (RBC) [Ratio]Ordered By: Ramiro Cortez on 03-03-2023 Erythrocyte distribution width (RBC) [Ratio] 13.0 % 12.0-14.8 [facility] Glucose [Mass/volume] in Ser um or PlasmaOrdered By: Ramiro Cortez on 03-03-2023 Glucose [Mass/Vol] 93 mg/dL 70-100 [facility] Comment on above: ADA recommended refe rence rangeRandom Glucose Reference Range is dependent on time and content of last meal. Glucose of more than 200 mg/dL in a nonstressed, ambulatory subject supports the diagnosis of Diabetes Mellitus. Hematocrit Auto (Bld) [Volum e fraction]Ordered By: Ramiro Cortez on 03-03-2023 Hematocrit (Bld) [Volume fraction] 38.3 % 38.8-50.0 [facility] Hemoglobin [Mass/volume] in BloodOrdered By: Ramiro Cortez on 03-03-2023 Hemoglobin (Bld) [Mass/Vol] 12.9 g/dL 13.0-17.0 [facility] Laboratory - CoagulationOrde red By: Ramiro Cortez on 03-03-2023 PT Coag (PPP) [Time] 12.3 s 9.0-12.9 [facility] Leukocytes [#/volume] correc ava for nucleated erythrocytes in Blood by Automated counOrdered By: Ramiro Cortez on 03-03-2023 WBC corrected for nucl RBC Auto (Bld) [#/Vol] 9.2 10*3/uL 4.1-10.5 [facility] Lymphocytes Auto (Bld) [#/Vo l]Ordered By: Ramiro Cortez on 03-03-2023 Lymphocytes (Bld) [#/Vol] 2.6 10*3/uL 1.00-4.8 [facility] Lymphocytes/100 WBC Auto (Bl d)Ordered By: Ramiro Cortez on 03-03-2023 Lymphocytes/100 WBC (Bld) 28.3 % . [facility] MCH Auto (RBC) [Entitic mass ]Ordered By: Ramiro Cortez on 03-03-2023 MCH (RBC) [Entitic mass] 30.8 pg 27.5-35.2 [facility] MCHC Auto (RBC) [Mass/Vol]Or dered By: Ramiro Cortez on 03-03-2023 MCHC (RBC) [Mass/Vol] 33.6 g/dL 32.5-35.6 [facility] MCV Auto (RBC) [Entitic vol] Ordered By: Ramiro Cortez on 03-03-2023 MCV (RBC) [Entitic vol] 91.9 fL 83.5-101 [facility] Monocyte distribution width [Entitic volume] in Blood by AutomatedOrdered By: Ramiro Cortez on 03-03-2023 Monocyte distribution width Auto (Bld) [Entitic vol] 24.67 % 0.00-20.00 [facility] Comment on above: For adults in ED, MD W > 20.0 may be associated with a higher risk of sepsis during the first 12 hrs of hospital admission Monocytes Auto (Bld) [#/Vol] Ordered By: Ramiro Cortez on 03-03-2023 Monocytes (Bld) [#/Vol] 0.6 10*3/uL 0.0-0.8 [facility] Monocytes/100 WBC Auto (Bld) Ordered By: Ramiro Cortez on 03-03-2023 Monocytes/100 WBC (Bld) 6.5 % . [facility] Natriuretic peptide B [Mass/ Vol]Ordered By: Ramiro Cortez on 03-03-2023 Natriuretic peptide B (Bld) [Mass/Vol] 52.0 pg/mL 5-100 [facility] Neutrophils Auto (Bld) [#/Vo l]Ordered By: Ramiro Cortez on 03-03-2023 Neutrophils (Bld) [#/Vol] 5.7 10*3/uL 1.8-7.7 [facility] Neutrophils/100 WBC Auto (Bl d)Ordered By: Ramiro Cortez on 03-03-2023 Neutrophils/100 WBC (Bld) 62.4 % . [facility] No Panel InformationOrdered By: Ramiro Cortez on 03-03-2023 Estimated GFR (CKD-EPI) > 60.0 mL/Min [facility] Creatinine Clearance (Chem 55.29 [facility] Nucleated erythrocytes [Pres ence] in Blood by Automated countOrdered By: Ramiro Cortez on 03-03-2023 Nucleated RBC Auto Ql (Bld) 0.1 /100{WBC} 0-0.5 [facility] Partial Thromboplastin Timeo n 03-03-2023 aPTT Coag (Bld) [Time] 29.7 s Normal 25.1-36.5 [facility] Comment on above: Result Comment: PERF ORMED BY: [facility] [address] [place] [address] PATHOLOGIST [employer] RADHA BARRON M.D. Performed By: #### C BC, CK, PT, PTT, BMP, HS TROP, BNP #### [facility] [address] Platelet mean volume Auto (B ld) [Entitic vol]Ordered By: Ramiro Cortez on 03-03-2023 Platelet mean volume (Bld) [Entitic vol] 8.2 fL 6.6-10.1 [facility] Platelet poor plasma interna tional normalized ratio (INR) by coagulation assay (relatOrdered By: Ramiro Cortez on 03-03-2023 INR Coag (PPP) [Relative time] 1.1 {INR} [facility] Comment on above: INR Therapeutic Rang e [...] (Bld) [#/Vol] 234 10*3/uL 150-450 [facility] Potassium [Moles/volume] in Serum or PlasmaOrdered By: Ramiro Cortez on 03-03-2023 Potassium [Moles/Vol] 4.2 mmol/L 3.5-5.1 [facility] Prothrombin Time INRon 03-03 INR Coag (PPP) [Relative time] 1.1 {INR} Normal [facility] Comment on above: Result Comment: [...] BNP #### [facility] [address] PT Coag (PPP) [Time] 12.3 s Normal 9.0-12.9 [facility] Comment on above: Performed By: #### C BC, CK, PT, PTT, BMP, HS TROP, BNP #### [facility] [address] RBC Auto (Bld) [#/Vol]Ordere d By: Ramiro Cortez on 03-03-2023 RBC (Bld) [#/Vol] 4.17 10*6/uL 3.90-5.60 [facility] Serum or plasma anion gap de terminationOrdered By: Ramiro Cortez on 03-03-2023 Anion gap [Moles/Vol] 10.6 mmol/L 6.0-15.0 [facility] Sodium [Moles/volume] in Ser um or PlasmaOrdered By: Ramiro Cortez on 03-03-2023 Sodium [Moles/Vol] 139 mmol/L 136-145 [facility] Troponin I High Sensitivityo n 03-03-2023 Troponin I High Sensitivity 7.6 pg/mL Normal 0.0-20.0 [facility] Comment on above: Result Comment: PERF ORMED BY: [facility] [address] [place] [address] PATHOLOGIST [employer] RADHA BARRON M.D. Performed By: #### C BC, CK, PT, PTT, BMP, HS TROP, BNP ####[facility] [id number] Troponin I.cardiac [Mass/vol ume] in Serum or Plasma by Detection limit <= 0.01 ng/Ordered By: Ramiro Cortez on 03-03-2023 Troponin I.cardiac DL <= 0.01 ng/mL [Mass/Vol] 7.6 pg/mL 0.0-20.0 [facility] Urea nitrogen [Mass/volume] in Serum or PlasmaOrdered By: Ramiro Cortez on 03-03-2023 Urea nitrogen [Mass/Vol] 17 mg/dL 7-25 [facility] WBC Auto (Bld) [#/Vol]Ordere d By: Ramiro Cortez on 03-03-2023 WBC (Bld) [#/Vol] 9.2 10*3/uL 4.1-10.5 [facility] XR chest 2V*on 03-03-2023 XR chest 2V* [facility] Main [place] [address] [place], [place] [id number] XRay Report Signed Patient: Jeb Riddle MR#: [id number] : 1950 Acct:[id number] Age/Sex: 72 / M ADM Date: 03/03/23 Loc: ER Room: Type: [facility] ER Attending Dr: Copies to: Ramiro [...] Ivonne Zavala M.D.03/03/2023 12:46 PM Dictation Location: [place] [address] Transcribed By: [facility] 03/03/23 1246 Dictated By: Ivonne Zavala MD 03/03/23 1245 Signed By: 03/03/23 1246 Normal [facility] CBC AUTO DIFFon 01-11-2023 BASO # 0.0 103/ul Normal 0.0-0.1 [facility] Comment on above: Performed By: #### C BC #### [facility] [address] [address] [address] Andrea Garcia Basophils/100 WBC (Bld) 0.0 % Critically low 0.2-2.0 [facility] Comment on above: Performed By: #### C BC #### [facility] [address] [place] [address] [address] Andrea Garcia EO # 0.0 103/ul Normal 0.0-0.7 [facility] Comment on above: Performed By: #### C BC #### [facility] [address] [place] [address] Dr. Andrea Garcia Eosinophils/100 WBC (Bld) 0.0 % Critically low 0.9-7.0 [facility] Comment on above: Performed By: #### C BC #### [facility] [address] [place] [address] Dr. Andrea Garcia Erythrocyte distribution width (RBC) [Ratio] 12.8 % Normal 11.0-15.0 [facility] Comment on above: Performed By: #### C BC #### [facility] [address] [place] [address] Dr. Andrea Garcia Hematocrit (Bld) [Volume fraction] 36.2 % Critically low 42.0-54.0 [facility] Comment on above: Performed By: #### C BC #### [facility] [address] [place] [address] Dr. Andrea Garcia Hemoglobin (Bld) [Mass/Vol] 12.8 g/dL Critically low 14.0-18.0 [facility] Comment on above: Performed By: #### C BC #### [facility] [address] [place] [address] Dr. Andrea Garcia IG # 0.03 10e3/ul Normal 0.00-0.03 [facility] Comment on above: Performed By: #### C BC #### [facility] [address] [place] [address] Dr. Andrea Garcia IG % 0.4 % Normal 0.0-0.5 [facility] Comment on above: Performed By: #### C BC #### [facility] [address] [place] [address] Dr. Andrea Garcia LYMPH # 1.1 103/ul Critically low 1.2-3.8 [facility] Comment on above: Performed By: #### C BC #### [facility] [address] [place] [address] Dr. Andrea Garcia Lymphocytes/100 WBC (Bld) 15.3 % Critically low 20.5-60.0 [facility] Comment on above: Performed By: #### C BC #### [facility] [address] [place] [address] Dr. Andrea Garcia MANUAL DIFF REQ NO Normal [facility] Comment on above: Performed By: #### C BC #### [facility] [address] [place] [address] Dr. Andrea Garcia MCH (RBC) [Entitic mass] 31.3 pg Normal 25.9-34.0 [facility] Comment on above: Performed By: #### C BC #### [facility] [address] [place] [address] Dr. Andrea Garcia MCHC (RBC) [Mass/Vol] 35.4 g/dL Critically high 29.9-35.2 [facility] Comment on above: Performed By: #### C BC #### [facility] [address] [place] [address] Dr. Andrea Garcia MCV (RBC) [Entitic vol] 88.5 fL Normal 80.0-94.0 [facility] Comment on above: Performed By: #### C BC #### [facility] [address] [place] [address] Dr. Andrea Garcia MONO # 0.1 103/ul Critically low 0.3-0.8 [facility] Comment on above: Performed By: #### C BC #### [facility] [address] [place] [address] Dr. Andrea Garcia Monocytes/100 WBC (Bld) 0.7 % Critically low 1.7-12.0 [facility] Comment on above: Performed By: #### C BC #### [facility] [address] [place] [address] Dr. Andrea Garcia NEUT # 6.0 103/ul Normal 1.4-6.5 [facility] Comment on above: Performed By: #### C BC #### [facility] [address] [place] [address] Dr. Andrea Garcia Neutrophils/100 WBC (Bld) 83.6 % Critically high 43.0-75.0 [facility] Comment on above: Performed By: #### C BC #### [facility] [address] [address] [address] Andrea Garcia Platelet mean volume (Bld) [Entitic vol] 10.1 fL Normal 9.5-13.5 [facility] Comment on above: Performed By: #### C BC #### [facility] [address] [place] [address] Dr. Andrea Garcia PLT 216 103/ul Normal 150-450 [facility] Comment on above: Performed By: #### C BC #### [facility] [address] [place] [address] Dr. Andrea Garcia RBC 4.09 106/ul Critically low 4.70-6.10 [facility] Comment on above: Performed By: #### C BC #### [facility] [address] [place] [address] Dr. Andrea Garcia WBC 7.2 103/ul Normal 4.0-11.0 [facility] Comment on above: Performed By: #### C BC #### [facility] [address] [place] [address] Dr. Andrea Garcia PROF 14(COMP METB)on 023 Albumin [Mass/Vol] 2.8 g/dL Critically low 3.4-5.0 Th [facility] Comment on above: Performed By: #### C MP #### [facility] [address] [place] [address] Dr. Andrea Garcia Albumin/Globulin [Mass ratio] 0.8 {ratio} Normal [facility] Comment on above: Performed By: #### C MP #### [facility] [address] [place] [address] Dr. Andrea Garcia ALP [Catalytic activity/Vol] 64 U/L Normal 46-116 [facility] Comment on above: Performed By: #### C MP #### [facility] [address] [place] [address] Dr. Andrea Garcia ALT [Catalytic activity/Vol] 27 U/L Normal 16-63 [facility] Comment on above: Performed By: #### C MP #### [facility] [address] [address] [address] Andrea Garcia Anion gap [Moles/Vol] 12.9 mmol/L Normal [facility] Comment on above: Performed By: #### C MP #### [facility] [address] [address] [address] Andrea Garcia AST [Catalytic activity/Vol] 16 U/L Normal 15-37 [facility] Comment on above: Performed By: #### C MP #### [facility] [address] [address] [address] Andrea Garcia Bilirubin [Mass/Vol] 0.4 mg/dL Normal 0.2-1.0 [facility] Comment on above: Performed By: #### C MP #### [facility] [address] [place] [address] Dr. Andrea Garcia Calcium [Mass/Vol] 8.2 mg/dL Critically low 8.5-10.1 [facility] Comment on above: Performed By: #### C MP #### [facility] [address] [place] [address] Dr. Andrea Garcia Chloride [Moles/Vol] 107 mmol/L Normal 98-107 [facility] Comment on above: Performed By: #### C MP #### [facility] [address] [place] [address] Dr. Andrea Garcia CO2 [Moles/Vol] 24.2 mmol/L Normal 21.0-32.0 [facility] Comment on above: Performed By: #### C MP #### [facility] [address] [place] [address] Dr. Andrea Garcia Creatinine [Mass/Vol] 1.07 mg/dL Normal 0.70-1.30 [facility] Comment on above: Performed By: #### C MP #### [facility] [address] [place] [address] Dr. Andrea Garcia EGFR-AF [place]IZ[place] >60 Normal >=60 [facility] Comment on above: Performed By: #### C MP #### [facility] [address] [place] [address] Dr. Andrea Garcia EGFR-NON AF [place]IZ[place] >60 Normal >=60 [facility] Comment on above: Performed By: #### C MP #### [facility] [address] [place] [address] Dr. Andrea Garcia Globulin (S) [Mass/Vol] 3.5 g/dL Normal [facility] Comment on above: Performed By: #### C MP #### [facility] [address] [place] [address] Dr. Andrea Garcia Glucose [Mass/Vol] 164 mg/dL Critically high 74-106 [facility] Comment on above: Performed By: #### C MP #### [facility] [address] [place] [address] Dr. Andrea Garcia Potassium [Moles/Vol] 4.1 mmol/L Normal 3.5-5.1 [facility] Comment on above: Performed By: #### C MP #### [facility] [address] [place] [address] Dr. Andrea Garcia Protein [Mass/Vol] 6.3 g/dL Critically low 6.4-8.2 Th e [facility] Comment on above: Performed By: #### C MP #### [facility] [address] [place] [address] Dr. Andrea Garcia Sodium [Moles/Vol] 140 mmol/L Normal 136-145 [facility] Comment on above: Performed By: #### C MP #### [facility] [address] [place] [address] Dr. Andrea Garcia Urea nitrogen [Mass/Vol] 16.0 mg/dL Normal 7.0-18.0 [facility] Comment on above: Performed By: #### C MP #### [facility] [address] [place] [address] Dr. Andrea Garcia Urea nitrogen/Creatinine [Mass ratio] 15.0 mg/mg Normal [facility] Comment on above: Performed By: #### C MP #### [facility] [address] [place] [address] Dr. Andrea Garcia XR KUB 1 VIEWon [...] by: ROBERT DAVENPORT Date: 2023-01-11 06:56 Normal [facility] AMYLASEon 01-10-2023 Amylase [Catalytic activity/Vol] 56 U/L Normal 25-115 [facility] Comment on above: Performed By: #### C MADM, CMP, DAMIEN, LIPA ####[facility] [address] [address]Dr. Andrea Garcia CARDIAC JEB 3-6on CK [Catalytic activity/Vol] 92 U/L Normal 39-308 [facility] Comment on above: Performed By: #### C MREP #### [facility] [address] [address] [address] Andrea RUBALCAVA.MB [Mass/Vol] 1.66 ng/mL Normal <=3.60 [facility] Comment on above: Performed By: #### C MREP #### [facility] [address] [address] [address] Andrea Garcia HSTROP 12.8 pg/mL Normal 4.0-76.1 [facility] Comment on above: Result Comment: CUT- OFF POINTS HAVE BEEN ESTABLISHED BASED ON THE FOURTH UNIVERSAL DEFINITIONS OF MYOCARDIAL INFARCTION. THE UPPER REFERENCE LIMIT (URL) OF TROPONIN, DEFINED THE 99TH PERCENTILE OF cTnI DISTRIBUTION IN A REFERENCE POPULATION, HAS BEEN CONFIRMED THE DECISION THRESHOLD FOR MA DIAGNOSIS. Performed By: #### C MREP #### [facility] [address] [address] [address] Andrea Garcia CK [Catalytic activity/Vol] 72 U/L Normal 39-308 [facility] Comment on above: Performed By: #### C MREP #### [facility] [address] [address] [address] Yilan Garcia CK.MB [Mass/Vol] 1.89 ng/mL Normal <=3.60 [facility] Comment on above: Performed By: #### C MREP #### [facility] [address] [address] [address] Andrea Garcia HSTROP 13.5 pg/mL Normal 4.0-76.1 [facility] Comment on above: Result Comment: CUT- OFF POINTS HAVE BEEN ESTABLISHED BASED ON THE FOURTH UNIVERSAL DEFINITIONS OF MYOCARDIAL INFARCTION. THE UPPER REFERENCE LIMIT (URL) OF TROPONIN, DEFINED THE 99TH PERCENTILE OF cTnI DISTRIBUTION IN A REFERENCE POPULATION, HAS BEEN CONFIRMED THE DECISION THRESHOLD FOR MA DIAGNOSIS. Performed By: #### C MREP #### [facility] [address] [address] [address] Andrea Garcia CARDIAC JEB ADMITon 023 CK [Catalytic activity/Vol] 85 U/L Normal 39-308 [facility] Comment on above: Performed By: #### C MADM, CMP, DAMIEN, LIPA ####[facility] [address] [address]Dr. Andrea Garcia CK.MB [Mass/Vol] 1.80 ng/mL Normal <=3.60 [facility] Comment on above: Performed By: #### C MADM, CMP, DAMIEN, LIPA ####[facility] [address] [address]DrWilder Garcia HSTROP 15.7 pg/mL Normal 4.0-76.1 [facility] Comment on above: Result Comment: CUT- OFF POINTS HAVE BEEN ESTABLISHED BASED ON THE FOURTH UNIVERSAL DEFINITIONS OF MYOCARDIAL INFARCTION. THE UPPER REFERENCE LIMIT (URL) OF TROPONIN, DEFINED THE 99TH PERCENTILE OF cTnI DISTRIBUTION IN A REFERENCE POPULATION, HAS BEEN CONFIRMED THE DECISION THRESHOLD FOR MA DIAGNOSIS. Performed By: #### C MADM, CMP, DAMIEN, LIPA ####[facility] [address] [address]DrWilder Garcia MIQUEL 61 ng/mL Normal 16-96 [facility] Comment on above: Performed By: #### C MADM, CMP, DAMIEN, LIPA ####[facility] [address] [id number]. Andrea Garcia CBC AUTO DIFFon 01-10-2023 BASO # 0.0 103/ul Normal 0.0-0.1 [facility] Comment on above: Performed By: #### C BC ####[facility] [address] [place], [place] [address]Dr. Kaylendahlia Garcia Basophils/100 WBC (Bld) 0.5 % Normal 0.2-2.0 [facility] Comment on above: Performed By: #### C BC ####[facility] [address] [place], [place] [address]Dr. Kaylendahlia Garcia EO # 0.4 103/ul Normal 0.0-0.7 [facility] Comment on above: Performed By: #### C BC ####[facility] [address] [place], [place] [address]Dr. Andrea Garcia Eosinophils/100 WBC (Bld) 5.9 % Normal 0.9-7.0 [facility] Comment on above: Performed By: #### C BC ####[facility] [address] [place], [place] [address]Dr. Kaylendahlia Garcia Erythrocyte distribution width (RBC) [Ratio] 13.0 % Normal 11.0-15.0 [facility] Comment on above: Performed By: #### C BC ####[facility] [address] [place], [place] [address]Dr. Kaylendahlia Garcia Hematocrit (Bld) [Volume fraction] 40.0 % Critically low 42.0-54.0 [facility] Comment on above: Performed By: #### C BC ####[facility] [address] [place], [place] [address]Dr. Kaylendahlia Garcia Hemoglobin (Bld) [Mass/Vol] 13.4 g/dL Critically low 14.0-18.0 [facility] Comment on above: Performed By: #### C BC ####[facility] [address] [place], [place] [address]Dr. Andrea Garcia IG # 0.01 10e3/ul Normal 0.00-0.03 [facility] Comment on above: Performed By: #### C BC ####[facility] [address] [id number]. Kaylendahlia Garcia IG % 0.2 % Normal 0.0-0.5 [facility] Comment on above: Performed By: #### C BC ####[facility] [address] [id number]. Andrea Garcia LYMPH # 2.2 103/ul Normal 1.2-3.8 [facility] Comment on above: Performed By: #### C BC ####[facility] [address] [place], [place] [address]Dr. Andrea Jose Lymphocytes/100 WBC (Bld) 33.2 % Normal 20.5-60.0 [facility] Comment on above: Performed By: #### C BC ####[facility] [address] [place], [place] [address]Dr. Kaylendahlia Garcia MANUAL DIFF REQ NO Normal [facility] Comment on above: Performed By: #### C BC ####[facility] [address] [place], [place] [id number]. Andrea Garcia MCH (RBC) [Entitic mass] 30.5 pg Normal 25.9-34.0 [facility] Comment on above: Performed By: #### C BC ####[facility] [address] [place], [place] [id number]. Andrea Garcia MCHC (RBC) [Mass/Vol] 33.5 g/dL Normal 29.9-35.2 [facility] Comment on above: Performed By: #### C BC ####[facility] [address] [place], [place] [id number]. Andrea Garcia MCV (RBC) [Entitic vol] 90.9 fL Normal 80.0-94.0 [facility] Comment on above: Performed By: #### C BC ####[facility] [address] [place], [place] [address]Dr. Andrea Garcia MONO # 0.4 103/ul Normal 0.3-0.8 [facility] Comment on above: Performed By: #### C BC ####[facility] [address] [id number]. Andrea Garcia Monocytes/100 WBC (Bld) 6.0 % Normal 1.7-12.0 [facility] Comment on above: Performed By: #### C BC ####[facility] [address] [id number]. Andrea Garcia NEUT # 3.5 103/ul Normal 1.4-6.5 [facility] Comment on above: Performed By: #### C BC ####[facility] [address] [id number]. Andrea Garcia Neutrophils/100 WBC (Bld) 54.2 % Normal 43.0-75.0 [facility] Comment on above: Performed By: #### C BC ####[facility] [address] [address]Dr. Andrea Garcia Platelet mean volume (Bld) [Entitic vol] 9.7 fL Normal 9.5-13.5 [facility] Comment on above: Performed By: #### C BC ####[facility] [address] [place], [place] [address]Dr. Andrea Garcia PLT 225 103/ul Normal 150-450 [facility] Comment on above: Performed By: #### C BC ####[facility] [address] [id number]. Andrea Garcia RBC 4.40 106/ul Critically low 4.70-6.10 [facility] Comment on above: Performed By: #### C BC ####[facility] [address] [place], [place] [address]Dr. Andrea Garcia WBC 6.5 103/ul Normal 4.0-11.0 [facility] Comment on above: Performed By: #### C BC ####[facility] [address] [place], [place] [address]Dr. Andrea Garcia CT ABD/PELV W CONon 01-11-20 [...] ADITYA OATES Date: 2023-01-10 07:41 Normal [facility] CULTURE BLOODon 01-10-2023 Microscopic examination of blood, culture Culture Observations: NO GROWTH AT 36-48 HOURS. FINAL TO FOLLOW. Normal [facility] Comment on above: Performed By: #### B LDCX2 ####[facility] [address] [address]Dr. Andrea Garcia Microscopic examination of blood, culture Culture Observations: NO GROWTH AT 36-48 HOURS. FINAL TO FOLLOW. Normal [facility] Comment on above: Performed By: #### B LDCX1 ####[facility] [address] [id number]. Andrea SCHAEFER URINE PROFILEon 3 Bilirubin Ql (U) Negative Normal NEGATIVE [facility] Comment on above: Performed By: #### U MICRO, ERUR #### [facility] [address] [address] [address] Andrea Garcia Clarity (U) CLEAR Normal CLEAR [facility] Comment on above: Performed By: #### U MICRO, ERUR #### [facility] [address] [address] [address] Andrea Garcia Color (U) LT. YELLOW Normal YELLOW [facility] Comment on above: Performed By: #### U MICRO, ERUR #### [facility] [address] [address] [address] Andrea Garcia ERUAHD A micrscopic examina tion will be performed if indicated. Normal [facility] Comment on above: Performed By: #### U MICRO, ERUR #### [facility] [address] [place] [address] Dr. Andrea Garcia Glucose Ql (U) Negative Normal NEGATIVE [facility] Comment on above: Performed By: #### U MICRO, ERUR #### [facility] [address] [place] [address] Dr. Andrea Garcia Hemoglobin Ql (U) TRACE-INTACT Abnormal NEGATIVE [facility] Comment on above: Performed By: #### U MICRO, ERUR #### [facility] [address] [place] [address] Dr. Andrea Garcia Ketones Ql (U) Negative Normal NEGATIVE [facility] Comment on above: Performed By: #### U MICRO, ERUR #### [facility] [address] [place] [address] Dr. Andrea Garcia LEUKOCYTES Negative Normal NEGATIVE [facility] Comment on above: Performed By: #### U MICRO, ERUR #### [facility] [address] [address] [address] Andrea Garcia Nitrite Ql (U) Negative Normal NEGATIVE [facility] Comment on above: Performed By: #### U MICRO, ERUR #### [facility] [address] [place] [address] Dr. Andrea Garcia pH (U) 5.5 [pH] Normal 5-9 [facility] Comment on above: Performed By: #### U MICRO, ERUR #### [facility] [address] [place] [address] Dr. Andrea Garcia SPEC GRAVITY 1.015 Normal 1.005-<=1. 025 [facility] Comment on above: Performed By: #### U MICRO, ERUR #### [facility] [address] [place] [address] Dr. Andrea Garcia UA PROTEIN Negative Normal NEGATIVE/ TRACE [facility] Comment on above: Performed By: #### U MICRO, ERUR #### [facility] [address] [place] [address] Dr. Andrea Garcia UR MICRO IND INDICATED Normal [facility] Comment on above: Performed By: #### U MICRO, ERUR #### [facility] [address] [place] [address] Dr. Andrea Garcia Urobilinogen Qn (U) 0.2 {Temo'U}/dL Normal 0.2 - 1. 0 [facility] Comment on above: Performed By: #### U MICRO, ERUR #### [facility] [address] [place] [address] Dr. Andrea Garcia LACTATE/LACTIC ACIDon 2022 Lactate [Moles/Vol] 0.8 mmol/L Normal 0.4-2.0 [facility] Comment on above: Performed By: #### L ACT #### [facility] [address] [place] [address] Dr. Andrea Garcia Lactate [Moles/Vol] 0.9 mmol/L Normal 0.4-2.0 [facility] Comment on above: Performed By: #### L ACT #### [facility] [address] [place] [address] Dr. Andrea Garcia LIPASEon 01-10-2023 Lipase [Catalytic activity/Vol] 71.0 U/L Critically low 73.0-393.0 [facility] Comment on above: Performed By: #### C YASMINE, CMP, DAMIEN, LIPA ####[facility] [address] [address]Dr. Andrea Garcia PROF 14(COMP METB)on 023 Albumin [Mass/Vol] 3.2 g/dL Critically low 3.4-5.0 [facility] Comment on above: Performed By: #### C MADM, CMP, DAMIEN, LIPA ####[facility] [address] [address]Dr. Andrea Garcia Albumin/Globulin [Mass ratio] 0.9 {ratio} Normal [facility] Comment on above: Performed By: #### C MADM, CMP, DAMIEN, LIPA ####[facility] [address] [address]Dr. Andrea Garcia ALP [Catalytic activity/Vol] 68 U/L Normal 46-116 [facility] Comment on above: Performed By: #### C MADM, CMP, DAMIEN, LIPA ####[facility] [address] [address]Dr. Andrea Garcia ALT [Catalytic activity/Vol] 30 U/L Normal 16-63 [facility] Comment on above: Performed By: #### C MADM, CMP, DAMIEN, LIPA ####[facility] [address] [place], [place] [address]Dr. Andrea Garcia Anion gap [Moles/Vol] 14.2 mmol/L Normal [facility] Comment on above: Performed By: #### C MADM, CMP, DAMIEN, LIPA ####[facility] [address] [place], [place] [address]Dr. Andrea Garcia AST [Catalytic activity/Vol] 18 U/L Normal 15-37 [facility] Comment on above: Performed By: #### C MADM, CMP, DAMIEN, LIPA ####[facility] [address] [place], [place] [address]Dr. Andrea Garcia Bilirubin [Mass/Vol] 0.5 mg/dL Normal 0.2-1.0 [facility] Comment on above: Performed By: #### C MADM, CMP, DAMIEN, LIPA ####[facility] [address] [place], [place] [address]Dr. Andrea Garcia Calcium [Mass/Vol] 8.5 mg/dL Normal 8.5-10.1 [facility] Comment on above: Performed By: #### C MADM, CMP, DAMIEN, LIPA ####[facility] [address] [address]Dr. Andrea Garcia Chloride [Moles/Vol] 108 mmol/L Critically high 98-107 [facility] Comment on above: Performed By: #### C MADM, CMP, DAMIEN, LIPA ####[facility] [address] [address]Dr. Andrea Garcia CO2 [Moles/Vol] 22.1 mmol/L Normal 21.0-32.0 [facility] Comment on above: Performed By: #### C MADM, CMP, DAMIEN, LIPA ####[facility] [address] [address]Dr. Andrea Garcia Creatinine [Mass/Vol] 1.06 mg/dL Normal 0.70-1.30 [facility] Comment on above: Performed By: #### C MADM, CMP, DAMIEN, LIPA ####[facility] [address] [place], [place] [address]Dr. Andrea Garcia EGFR-AF [place] >60 Normal >=60 [facility] Comment on above: Performed By: #### C MADM, CMP, DAMIEN, LIPA ####[facility] [address] [address]Dr. Andrea Garcia EGFR-NON AF [place]IZ[place] >60 Normal >=60 [facility] Comment on above: Performed By: #### C MADM, CMP, DAMIEN, LIPA ####[facility] [address] [address]Dr. Andrea Garcia Globulin (S) [Mass/Vol] 3.5 g/dL Normal [facility] Comment on above: Performed By: #### C MADM, CMP, DAMIEN, LIPA ####[facility] [address] [address]Dr. Andrea Garcia Glucose [Mass/Vol] 110 mg/dL Critically high 74-106 [facility] Comment on above: Performed By: #### C MADM, CMP, DAMIEN, LIPA ####[facility] [address] [address]Dr. Andrea Garcia Potassium [Moles/Vol] 4.3 mmol/L Normal 3.5-5.1 [facility] Comment on above: Performed By: #### C MADM, CMP, DAMIEN, LIPA ####[facility] [address] [address]Dr. Kaylendahlia Garcia Protein [Mass/Vol] 6.7 g/dL Normal 6.4-8.2 [facility] Comment on above: Performed By: #### C MADM, CMP, DAMIEN, LIPA ####[facility] [address] [address]Dr. Andrea Garcia Sodium [Moles/Vol] 140 mmol/L Normal 136-145 [facility] Comment on above: Performed By: #### C MADM, CMP, DAMIEN, LIPA ####[facility] [address] [address]Dr. Andrea Garcia Urea nitrogen [Mass/Vol] 20.0 mg/dL Critically high 7.0-18.0 [facility] Comment on above: Performed By: #### C MADM, CMP, DAMIEN, LIPA ####[facility] [address] [address]Dr. Andrea Garcia Urea nitrogen/Creatinine [Mass ratio] 18.9 mg/mg Normal [facility] Comment on above: Performed By: #### C MADM, CMP, DAMIEN, LIPA ####[facility] [address] [address]Dr. Andrea Garcia URINE MICROSCOPIC ONLYon BACTERIA NONE SEEN Normal NONE SEEN [facility] Comment on above: Performed By: #### U MICRO, ERUR #### [facility] [address] [address] [address] Andrea Garcia Bacteria identified Cx Nom (U) NOT INDICATED Normal [facility] Comment on above: Performed By: #### U MICRO, ERUR #### [facility] [address] [address] [address] Andrea Garcia CAST NONE SEEN Normal NONE SEEN [facility] Comment on above: Performed By: #### U MICRO, ERUR #### [facility] [address] [place] [address] Dr. Andrea Garcia Crystals LM Nom (Urine sed) NONE SEEN Normal NONE SEEN [facility] Comment on above: Performed By: #### U MICRO, ERUR #### [facility] [address] [place] [address] Dr. Andrea Garcia Epithelial cells LM Ql (Urine sed) NONE SEEN Normal NONE SEEN /RARE [facility] Comment on above: Performed By: #### U MICRO, ERUR #### [facility] [address] [place] [address] Dr. Andrea Garcia MUCOUS NONE SEEN Normal NONE SEEN [facility] Comment on above: Performed By: #### U MICRO, ERUR #### [facility] [address] [place] [address] Dr. Andrea Garcia RBC 0-2 Normal 0-2 [facility] Comment on above: Performed By: #### U MICRO, ERUR #### [facility] [address] [place] [address] Dr. Andrea Garcia WBC 0-2 Abnormal NONE SEEN [facility] Comment on above: Performed By: #### U MICRO, ERUR #### [facility] [address] [place] [address] Dr. Andrea Garcia XR CHEST 1 Von 01-10-2023 XR CHEST 1 V Exam: Radiographs: X R CHEST 1 V Reason for exam: Nausea/vomiting Comparison: None IMPRESSION: Negative chest. Electronically authenticated by: ADITYA OATES Date: 2023-01-10 07:42 Normal [facility] MRI Soft Tissue Neck w/o + [...] by KENN RAPHAEL on 10/06/2021 1605 Normal [facility] CT Soft Tissue Neck w/ Contr [...] by Que Greene on 09/29/[address] [facility] Specialist Vital Signs Date Time Vital Sign Value Performing Clinician Faci lity 09-19-2024 08:42-0500 Body mass index (BMI) [Ratio] 24.11 kg/m2 Christopher Reno DO Work Phone: [facility] 09-19-2024 08:42-0500 Body weight 85.19 kg Christopher Reno DO Work Phone: [facility] 09-19-2024 08:42-0500 Diastolic blood pressure 76 mm[Hg] Christopher Reno DO Work Phone: [facility] 09-19-2024 08:42-0500 Heart rate 78 /min Christopher Reno DO Work Phone: [facility] 09-19-2024 08:42-0500 SaO2% (BldA) [Mass fraction] 96 % Christopher Reno DO Work Phone: [facility] 09-19-2024 08:42-0500 Systolic blood pressure 142 mm[Hg] Christopher Reno DO Work Phone: [facility] 01-09-2024 19:01-0400 Diastolic blood pressure 99 mm[Hg] MD Lauren Godwin Work Phone: [facility] 01-09-2024 19:01-0400 Heart rate 84 /min MD Lauren Godwin Work Phone: [facility] 01-09-2024 19:01-0400 Respiratory rate 18 /min MD Lauren Godwin Work Phone: [facility] 01-09-2024 19:01-0400 SaO2% (BldA) [Mass fraction] 97 % MD Lauren Godwin Work Phone: [facility] 01-09-2024 19:01-0400 Systolic blood pressure 190 mm[Hg] MD Lauren Godwin Work Phone: [facility] 01-09-2024 14:29-0400 Body height 187.96 cm MD Lauren Godwin Work Phone: [facility] 01-09-2024 14:29-0400 Body temperature 98.3 [degF] MD Lauren Godwin Work Phone: [facility] 01-09-2024 14:29-0400 Body weight 83 kg MD Lauren Godwin Work Phone: [facility] 12-18-2023 13:10-0400 Heart rate 85 /min MD Lauren Godwin Work Phone: [facility] 12-18-2023 13:09-0400 Body temperature 97.9 [degF] MD Lauren Godwin Work Phone: [facility] 12-18-2023 13:09-0400 Diastolic blood pressure 77 mm[Hg] MD Lauren Godwin Work Phone: [facility] 12-18-2023 13:09-0400 Respiratory rate 18 /min MD Lauren Godwin Work Phone: [facility] 12-18-2023 13:09-0400 SaO2% (BldA) [Mass fraction] 97 % MD Lauren Godwin Work Phone: [facility] 12-18-2023 13:09-0400 Systolic blood pressure 161 mm[Hg] MD Lauren Godwin Work Phone: [facility] 12-18-2023 13:06-0400 Body height 186.69 cm MD Lauren Godwin Work Phone: [facility] 12-18-2023 13:06-0400 Body weight 81 kg MD Lauren Godwin Work Phone: [facility] 03-03-2023 13:30-0400 Diastolic blood pressure 100 mm[Hg] MD Lauren Godwin Work Phone: [facility] 03-03-2023 13:30-0400 Heart rate 59 /min MD Lauren Godwin Work Phone: [facility] 03-03-2023 13:30-0400 Respiratory rate 18 /min MD Lauren Godwin Work Phone: [facility] 03-03-2023 13:30-0400 SaO2% (BldA) [Mass fraction] 99 % MD Lauren Godwin Work Phone: [facility] 03-03-2023 13:30-0400 Systolic blood pressure 160 mm[Hg] MD Lauren Godwin Work Phone: [facility] 03-03-2023 11:36-0400 Body height 175.26 cm MD Lauren Godwin Work Phone: [facility] 03-03-2023 11:36-0400 Body temperature 98 [degF] MD Lauren Godwin Work Phone: [facility] 03-03-2023 11:36-0400 Body weight 84.3 kg MD Lauren Godwin Work Phone: [facility] Encounters Encounter Date Encounter Type Care Provider Facility Start: 12-11-2024 ambulatory Jaun BRADSHAW Facility :[facility] Start: 11-27-2024 ambulatory Jaun BRADSHAW Facility:[facility] Start: 11-14-2024 End: 11-14-2024 ambulatory [facility] Start: 11-05-2024 End: 11-05-2024 ambulatory CHRISTVANNESSA BOJORQUEZ Not Available Start: 10-02-2024 End: 10-02-2024 ambulatory CHRISTOPHER RENO Not Available Start: 09-24-2024 End: 09-24-2024 ambulatory [facility] Start: 09-19-2024 End: 09-19-2024 Bamboo flowsheet Christopher Reno DO Work Phone: [facility] Start: 09-19-2024 End: 09-19-2024 Bamboo flowsheet Christopher Reno DO Work Phone: [facility] [place] Start: 09-19-2024 End: 09-19-2024 Office outpatient new 45 minutes Christopher Reno DO Work Phone: [facility] Comment on above: Loss of consciousnes s (CMS/HCC) (Primary Dx) Start: 09-19-2024 End: 09-19-2024 ambulatory CHRISTOPHER RENO Not Available Start: 08-09-2024 End: 08-09-2024 Emergency department patient visit SHIV DICKERSON [facility] Start: 04-06-2024 End: 04-06-2024 ambulatory [facility] Start: 01-09-2024 End: 01-09-2024 Emergency department patient visit Lauren Godwin Facility:[facility] Start: 01-09-2024 End: 01-09-2024 Emergency department patient visit MD Lauren Godwin Work Phone: [facility] Work Phone: Start: 12-18-2023 End: 12-18-2023 Emergency department patient visit Marie Garrison Facility:[facility] Start: 12-18-2023 End: 12-18-2023 Emergency department patient visit MD Lauren Godwin Work Phone: [facility] Work Phone: Start: 12-09-2023 End: 12-09-2023 ambulatory [facility] Start: 03-03-2023 End: 03-03-2023 Emergency department patient visit Ramiro Cortez Facility:[facility] Start: 03-03-2023 End: 03-03-2023 Emergency department patient [...] 9:00 AM EDT Office Visit [facility] [place] [address] [place] [address] Maribel Bojorquez DO [address] [place] [address] [facility] Start: 09-20-2024 End: 09-20-2024 Clinical Support 09/20/2024 8:45 AM EST Clinical Support [facility] [address] [place] [address] [facility] Start: 09-19-2024 End: 09-19-2025 EEG, Including Recording Awake or Asleep EEG, Including Recording Awake or Asleep Neurology Routine Loss of consciousness ([facility]/HCC) Expected: 09/19/2024 (Approximate), Expires: 09/19/2025 [facility] Work Phone: Comment on above: Expected: 09/19/2024 (Approximate), Expires: 09/19/2025 Start: 09-19-2024 End: 09-19-2024 Patient encounter procedure 09/19/2024 9:00 AM EST Office Visit [facility] [address] [place] [address] Maribel Bojorquez DO [address] [facility] [place] [address] Arrived [facility] Comment on above: Arrived Start: 04-15-2024 Influenza vaccination Influenza Vacc ine (#1) [facility] Start: 12-18-2023 [facility] Start: 2014 Pneumococcal Vaccine : 65+ Years (1 of 1 - PCV) Pneumococcal Vaccine: 65+ Years (1 of 1 - PCV) [facility] Start: 1950 Screening for malign ant neoplasm of colon [facility] Patient Education [facility] Work Phone: Patient referral [facility] Work Phone: Immunizations Immunization Date Immunization Notes Care Provider Fa cility 09-21-2023 influenza virus vaccine, unspecified formulation Maribel Bojorquez DO Work Phone: [facility] Payers Date Payer Category Payer Medicare (Managed Care) [employer] Member Subscriber Plan / Payer (Effective 2023-Present) Name: Jeb Riddle Relation to Subscriber: Self Name: Jeb Riddle Payer ID: [id number] (NAIC) Type: Not on file Address: [place] [id number] 2023 Self-pay [id number] 2022 Unknown [id number] 1960 Medicare [id number] 1950 Unknown [id number] 1950 Unknown [id number] [id number] 1950 Unknown [id number] [id number] 1950 Unknown [id number] [id number] 1950 Unknown [id number] [id number] Unknown [id number] 2.531 Unknown [id number] 2.531 Unknown [id number] [id number] Social History Date Type Detail Facility Start: 03-03-2023 End: 01-09-2024 Tobacco smoking status DCIS Ex-smoker (finding) [facility] Start: 1950 Sex Assigned At Male F [facility] Tobacco smoking status NHIS Tobacco smoking consumption unknown [facility] Start: 1950 Sex assigned at Not on file [facility] Gender identity Not on file [facility] are Progress note 11-14-2024 Note Date & Type Note Facility 11-14-2024 Note [place] [facility] - [facility] Subjective Jeb Riddle is a [...] He was admitted to the hospital at [facility] and was started on anticoagulation therapy. [...] On 08/31/2024 he was admitted to the [facility] with small bowel obstruction secondary to [...] evaluated in the emergency room at the [facility] on 11/02/2024 because of episode of near syncope while having bowel movement. Troponin was negative twice, ECG showed sinus rhythm, presentation was suspicious of vasovagal attack he was given intravenous hydration and discharged from the emergency room. Today 11/14/2024 he was evaluated in the emergency room at the [facility] because of dizziness after recent increase [...] Rate and Rhythm: (more content not included)... [facility] Progress note 09-24-2024 Note Date & Type Note Facility 09-24-2024 Note [place] [facility] - [facility] Subjective Jeb Riddle is a [...] He was admitted to the hospital at [facility] and was started on anticoagulation therapy. [...] On 08/31/2024 he was admitted to the [facility] with small bowel obstruction secondary to [...] mononitrate ER (Imdu (more content not included)... 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 He had taken a Seroquel the night [...] 2 years. He lost his job in [employer] and his house and has had issues [...] , wrist extensors , wrist flexor , waterproof bag sewer strength 5/5. LUE Strength deltoid , biceps , triceps , wrist extensors , wrist flexor , waterproof bag sewer strength 5/5. RLE Strength illopsoas, quadriceps, tibialis [...] reflex 2+ . Reese's sign negative. Coordination: [id number] testing and rapid alternating movements are normal Gait: Normal Review and summary of old records: CT of the brain without contrast on 08/09/2024 with comparison to 07/14/2022: No acute intracranial pathology I have reviewed notations from [place] emergency department where this 73-year-old patient presented [...] this visit: Loss of consciousness (CMS/[facility]) It is my impression that [...] states he had a recent MRI at [facility] that was also unremarkable. He has [...] and return instructions documented in this encounter [facility] Progress note 04-06-2024 Note Date & Type Note Facility 04-06-2024 Note [place] [facility] - [facility] Subjective Jeb Riddle is a 73 y.o. year old male patient here for a follow up echo from January, he was amitted to [facility], for chest pain a couple weeks ago and had another echo. He had a lipid panel yesterday. At last appointment his statin was changed. 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 He still rides his bike to [place] everyday, still active. Patient Active Problem List [...] He was admitted to the hospital at [facility] and was started on anticoagulation therapy. [...] metoprolol succinate XL (more content not included)... [facility] Progress note 12-09-2023 Note Date & Type Note Facility 12-09-2023 Note 8K can you read, out of the so I can make changes in [place] [facility] - [facility] Subjective Jeb Riddle is a [...] presented to the emergency room at the [facility] and investigation including a CT scan [...] Rfl: 3 prav (more content not included)... [facility] Evaluation note Note Date & Type Note Facility Evaluation note No assessment information availa ble [facility] Work Phone: Evaluation note Note Date & Type Note Facility Evaluation note Diagnosis Loss of consciousness (CMS/HCC)- Primary Other alteration of consciousness documented in this encounter [facility] Hospital Discharge instructions Note Date & Type Note Facility Hospital Discharge instructions Additional Instructions Continue Pepcid once or twice a day as needed Exira diet Follow-up with your family doctor for [...] Unspecified convulsions (CMS/HCC) Syncope and collapse Procedures [place] OFFICE/OUTPATIENT [facility] 30 MINUTES Lauren Godwin MD [address] [place] [address] Phone: tel:[phone] fax: Maribel Bojorquez DO [address] [place] [address] Phone: tel: fax: Referral ID Status Reason Start Date Expiration Date V isits Requested Visits Authorized [id number] Closed Consult and Treat 08/17/2024 02/13/2025 1 [...] section and content) DATE CREATED AUTHOR 10/07/2021 [facility] dical Specialist DATE CREATED AUTHOR AUTHOR'S ORGANIZ ATION 01/21/2023 [facility] pital DATE CREATED AUTHOR AUTHOR'S ORGANIZ ATION 01/09/2024 [facility] ysician Group DATE CREATED AUTHOR AUTHOR'S ORGANIZ ATION 08/10/[address] [facility] DATE CREATED AUTHOR AUTHOR'S ORGANIZ ATION 11/05/2024 [facility] dical Specialists EPIC DATE CREATED AUTHOR AUTHOR'S ORGANIZ ATION 11/17/[address] [facility] DATE CREATED AUTHOR AUTHOR'S ORGANIZ ATION 11/29/2024 [facility] Care Teams (unrecognized sec tion [...] 09, 2024 End: January 09, 2024 RODRÍGUEZ Blankenship-BC Emergency Provider Active Start: January 09, 2024 [...] BE BASED ON THE PRIMARY CLINICAL RECORDS. [employer] provides no warranty or guarantee of the accuracy or completeness of information in this document.
--- NOTE | 2024-11-30 07:18 | ECG_ITS ---
[facility] Test Date: 2024-11-30 Pat Name: JEB TOBIAS Department: Room: - Gender: Male Bid Analyst: : 1950 Requested By: [id number] Order Number: [id number] Reading MD: JESSICA FORRESTER M.D. Measurements Intervals [place] Rate: 108 P: 69 [place]: 166 QRS: 63 QRSD: 90 T: 80 QT: 340 QTc: 403 Interpretive Statements 1120 Sinus tachycardia Otherwise normal ECG Compared to ECG 11/25/2024 15:01:12 No significant changes Electronically Signed On 11-30-2024 11:55:03 EDT by JESSICA FORRESTER M.D.
--- NOTE | 2024-11-30 07:19 | ED.GENADUL1 ---
HPI HPI - General Adult General Chief complaint: Dizziness Stated complaint: VERTIGO Time Seen by Provider: 11/30/24 07:10 History of Present Illness HPI narrative: 74-year-old male presents to the emergency department for vertigo type symptoms. He states it started about half an hour ago and he was brought here by his sister. When he moves his head the room starts spinning. He is on Eliquis, for DVT, and was concerned about a brain hemorrhage. He has no localized weakness and he felt nauseous but no vomiting. No chest pain or palpitations. Related Data Home Medications ?Medication ?Instructions ?Recorded ?Confirmed mesalamine 400 mg capsule (with 800 mg PO BID 02/25/23 11/30/24 delayed release tablets inside) ondansetron 8 mg disintegrating 8 mg PO Q8H PRN nausea and vomiting 09/02/23 11/30/24 tablet clonidine HCl 0.1 mg tablet 0.1 mg PO BID 03/19/24 11/30/24 apixaban 5 mg tablet (Eliquis) 2.5 mg PO BID 08/31/24 11/30/24 lorazepam 1 mg tablet (Ativan) 1 mg PO BID PRN anxiety 08/31/24 11/30/24 Previous Rx's ?Medication ?Instructions ?Recorded isosorbide mononitrate 30 mg 30 mg PO QAM #30 tabs 03/14/23 tablet,extended release 24 hr lisinopril 20 mg tablet 40 mg (2 x 20 mg) PO DAILY #60 tabs 09/03/24 meclizine 25 mg tablet 25 mg PO TID PRN dizziness #20 tabs 11/30/24 Allergies Allergy/AdvReac Type Severity Reaction Status Date / Time Fish Containing Products AdvReac Severe Abdominal Verified 11/30/24 07:10 Pain Opioid HPI Opioid Management Most Recent Opioid Data: Last Pain Scale 10 08/31/24 02:56 08/31/24 Last ORT Total Score 0 08/31/24 08:04 08/31/24 Last ORT Risk Category Low Risk 08/31/24 08:04 08/31/24 Review of Systems ROS Narrative A ten point review of systems is negative except as noted above. PFSH PFS Medical History (Updated 11/30/24 @ 12:09 by Jose Alberto Worley MD) Small bowel obstruction ?K56.609 - Unspecified intestinal obstruction, unspecified as to partial versus complete obstruction (ICD-10) Abdominal pain ?R10.9 - Unspecified abdominal pain (ICD-10) Pulmonary embolism ?I26.99 - Other pulmonary embolism without acute cor pulmonale (ICD-10) Chest pain ?R07.9 - Chest pain, unspecified (ICD-10) Elevated blood pressure reading ?R03.0 - Elevated blood-pressure reading, without diagnosis of hypertension (ICD-10) Uncontrolled hypertension ?I10 - Essential (primary) hypertension (ICD-10) UTI (urinary tract infection) ?N39.0 - Urinary tract infection, site not specified (ICD-10) DVT (deep venous thrombosis) ?I82.409 - Acute embolism and thrombosis of unspecified deep veins of unspecified lower extremity (ICD-10) Dehydration ?E86.0 - Dehydration (ICD-10) DAVID (acute kidney injury) ?N17.9 - Acute kidney failure, unspecified (ICD-10) Abdominal pain ?R10.9 - Unspecified abdominal pain (ICD-10) Nausea & vomiting ?R11.2 - Nausea with vomiting, unspecified (ICD-10) Hypertension ?I10 - Essential (primary) hypertension (ICD-10) Crohn disease ?K50.90 - Crohn's disease, unspecified, without complications (ICD-10) Surgical History H/O hernia repair ?Z98.890 - Other specified postprocedural states (ICD-10) ?Z87.19 - Personal history of other diseases of the digestive system (ICD-10) History of bowel resection ?Z90.49 - Acquired absence of other specified parts of digestive tract (ICD-10) Family History (Updated 03/13/23 @ 20:02 by Bita Cyr RN) Father Family history of COPD (chronic obstructive pulmonary disease) Family history of diabetes mellitus Family history of myocardial infarction Brother Family history of cancer Mother Family history of diabetes mellitus Other Family history of hypertension Social History Within the past year, how often did you have a drink containing alcohol: 2-3 times a week Within the past year, how many standard drinks containing alcohol did you have on a typical day: 1 or 2 Within the past year, how often did you have six or more drinks on one occasion: never Total score: 0 Score interpretation: A score less than 4 is consistent with normal alcohol consumption. 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 Little interest or pleasure in doing things: not at all Feeling down, depressed, or hopeless: not at all Feel stressed/tense/nervous/anxious/difficulty sleeping: not at all Do you think of yourself as: straight/heterosexual Gender Identity: male Exam Narrative Exam Narrative: Nurses note and vital signs reviewed and patient is not hypoxic. General: The patient appears in no apparent distress. Skin: Warm, dry, no pallor noted. There is no rash noted. Head: Normocephalic, atraumatic Eye: Normal conjunctiva, no drainage Ears, Nose, Mouth, and Throat: oral mucosa is moist. Nares patent. Cardiovascular: Regular Rate and Rhythm, borderline tachycardia Respiratory: Patient is in no distress, no accessory muscle use, lungs are clear to auscultation, no wheezing, rales or rhonchi Back: non-tender GI: Soft and Musculoskeletal: The patient has no evidence of calf tenderness, no pitting edema, symmetrical pulses noted bilaterally Neurological: A&O x4, normal speech; upper and lower extremity strength symmetric and intact Psychiatric: Cooperative Constitutional Vital Signs, click to edit/add: Last Vital Signs Temp 97.6 F 11/30/24 07:10 Pulse 47 L 11/30/24 09:40 Resp 18 11/30/24 09:40 BP 99/55 11/30/24 09:30 Pulse Ox 95 11/30/24 09:40 O2 Del Method Room Air 11/30/24 07:10 Course Vital Signs Vital signs: Vital Signs Temperature 97.6 F 11/30/24 07:10 Pulse Rate 124 H 11/30/24 07:10 Respiratory Rate 22 H 11/30/24 07:10 Blood Pressure 186/98 H 11/30/24 07:10 Pulse Oximetry 99 11/30/24 07:10 Oxygen Delivery Method Room Air 11/30/24 07:10 Temperature 97.6 F 11/30/24 07:10 Pulse Rate 47 L 11/30/24 09:40 Respiratory Rate 18 11/30/24 09:40 Blood Pressure 99/55 11/30/24 09:30 Pulse Oximetry 95 11/30/24 09:40 Oxygen Delivery Method Room Air 11/30/24 07:10 Medical Decision Making MDM Narrative Medical decision making narrative: His workup including CT brain is negative. He was given IV fluids as well as IV Valium. He was able to sleep and awoke feeling much better. He is being discharged home on Antivert. Treatment diagnosis and follow-up were discussed with the patient. Differential Diagnosis Differential Diagnosis: Vertigo, intracerebral hemorrhage, dehydration, anemia Lab Data Lab results reviewed: Yes I reviewed the patient's lab results Labs: Lab Results 11/30/24 Range/Units 07:15 WBC 9.0 (4.0-11.0) 10^3/uL RBC 4.00 L (4.70-6.10) 10^6/uL Hgb 12.8 L (14.0-18.0) g/dL Hct 38.8 L (42.0-54.0) % MCV 97.0 H (80.0-94.0) fL MCH 32.0 (25.9-34.0) pg MCHC 33.0 (29.9-35.2) g/dL RDW 13.7 (11.0-15.0) % Plt Count 301 (150-450) 10^3/uL MPV 10.3 (9.5-13.5) fL Neut % (Auto) 46.8 (43.0-75.0) % Lymph % (Auto) 39.5 (20.5-60.0) % Archuleta % (Auto) 9.0 (1.7-12.0) % Eos % (Auto) 3.7 (0.9-7.0) % Baso % (Auto) 0.6 (0.2-2.0) % Neut # (Auto) 4.2 (1.4-6.5) 10^3/uL Lymph # (Auto) 3.6 (1.2-3.8) 10^3/uL Archuleta # (Auto) 0.8 (0.3-0.8) 10^3/uL Eos # (Auto) 0.3 (0.0-0.7) 10^3/uL Baso # (Auto) 0.1 (0.0-0.1) 10^3/uL Abs Immat Gran (auto) 0.04 H (0.00-0.03) 10^3/uL Imm/Tot Granulo (auto) 0.4 (0.0-0.5) % Sodium 143 (136-145) mmol/L Potassium 4.6 (3.5-5.1) mmol/L Chloride 110 H (98-107) mmol/L Carbon Dioxide 23.0 (21.0-32.0) mmol/L Anion Gap 14.6 BUN 38.0 H (7.0-18.0) mg/dL Creatinine 1.47 H (0.70-1.30) mg/dL Est GFR ( Amer) 57 L (>=60 mL/min/1.73m^2) Est GFR (Non-Af Amer) 47 L (>=60 mL/min/1.73m^2) BUN/Creatinine Ratio 25.9 Glucose 116 H (74-106) mg/dL Calcium 8.8 (8.5-10.1) mg/dL Troponin I High Sens 17.3 (4.0-76.1) pg/mL Imaging Data CT scan - head: Radiologist's impression: No acute intracranial abnormality ECG Data Attestation: I personally reviewed and interpreted this ECG as follows: (EKG on my interpretation shows sinus tachycardia with a rate of 108.) Discharge Plan Discharge Chief Complaint: Dizziness Clinical Impression: Vertigo Patient Disposition: Home, Self-Care Time of Disposition Decision: 12:09 Condition: Good Mode of Transportation: Private Vehicle Prescriptions / Home Meds: New meclizine 25 mg tablet 25 mg PO TID PRN (Reason: dizziness) Qty: 20 0RF No Action isosorbide mononitrate 30 mg tablet extended release 24 hr 30 mg PO QAM Qty: 30 11RF ondansetron 8 mg tablet,disintegrating 8 mg PO Q8H PRN (Reason: nausea and vomiting) clonidine HCl 0.1 mg tablet 0.1 mg PO BID lorazepam [Ativan] 1 mg tablet 1 mg PO BID PRN (Reason: anxiety) Eliquis 5 mg Tablet 2.5 mg PO BID Rx Instructions: 10 mg a day for 1 week then 5 mg po BID lisinopril 20 mg Tablet 40 mg PO DAILY Qty: 60 12RF mesalamine 400 mg capsule (with del rel tablets) 800 mg PO BID Print Language: Mexican Instructions: Vertigo (ED) Referrals: Rodriguez Godwin MD [Primary Care Provider] - 1 week
[2024-11-30 07:28] LABS: Basophils Absolute Auto 0.1 10^3/uL (0.0-0.1); Basophils Percent Auto 0.6 % (0.2-2.0); Eosinophils Absolute Auto 0.3 10^3/uL (0.0-0.7); Eosinophils Percent Auto 3.7 % (0.9-7.0); Hematocrit 38.8 % (42.0-54.0); Hemoglobin 12.8 g/dL (14.0-18.0); Immature Granulocytes Abs Auto 0.04 10^3/uL (0.00-0.03); Immature Granulocytes Pct Auto 0.4 % (0.0-0.5); Lymphocytes Absolute Auto 3.6 10^3/uL (1.2-3.8); Lymphocytes Percent Auto 39.5 % (20.5-60.0); Mean Platelet Volume 10.3 fL (9.5-13.5); Monocytes Absolute Auto 0.8 10^3/uL (0.3-0.8); Neutrophils Absolute Auto 4.2 10^3/uL (1.4-6.5); Neutrophils Percent Auto 46.8 % (43.0-75.0); Platelet Count 301 10^3/uL (150-450); Red Cell Distribution Width 13.7 % (11.0-15.0)
[2024-11-30] MEDS: DIAZEPAM 10 MG/2 ML SYRINGE 5 MG IV (07:30)
[2024-11-30 07:49] LABS: Anion Gap 14.6; BUN Creatinine Ratio 25.9; Calcium 8.8 mg/dL (8.5-10.1); Chloride 110 mmol/L (98-107); Estimated GFR (African America 57 (>=60 mL/min/1.73m^2); Estimated GFR (Non-African Ame 47 (>=60 mL/min/1.73m^2); Glucose 116 mg/dL (74-106); Potassium 4.6 mmol/L (3.5-5.1); Sodium 143 mmol/L (136-145); Troponin I High Sensitivity 17.3 pg/mL (4.0-76.1)
[2024-11-30] MEDS: 0.9 % SODIUM CHLORIDE 1,000 ML 1000 ML IV (10:59)
[2024-11-30] MEDS: ONDANSETRON PF 4 MG/2 ML VIAL IV (11:02)
[2024-11-30] MEDS: MECLIZINE HCL 12.5 MG TABLET 25 MG PO (12:15)
== END 2024-11-30 12:21 | disposition home or self-care (01) ==
PROVIDERS: Emergency Provider Emergency Medicine; Family Provider Family Medicine; PCP Family Medicine
DX: R42 Dizziness and giddiness (principal); Z79.01 Long term (current) use of anticoagulants; I82.409 Acute embolism and thrombosis of unspecified deep veins of unspecified lower extremity; Z90.49 Acquired absence of other specified parts of digestive tract; Z87.891 Personal history of nicotine dependence
CPT/HCPCS: 36415; 70450; 80048; 84484; 85025; 93005; 96361; 96374; 96375; 99285; J2405; J3360

== ENCOUNTER 2024-12-18 07:53 | Outpatient (OUT) | payer MEDICARE, SELFPAY ==
--- NOTE | 2024-12-18 08:00 | CA_ITS ---
Patient Name: JEB TOBIAS MR#: [id number] : 1950 Exam Date: 12/18/2024 Ordering Doctor: DR LAUREN VALLEJO . ECHOCARDIOGRAM REPORT PROCEDURE: CA ECHO DOPPLER COMPLETE INDICATIONS: Angina, hypertension COMPARISON: None. DESCRIPTION: COMPLETE ECHOCARDIOGRAM Real-time transthoracic echocardiography with 2D, M-mode, spectral and color flow Doppler performed. QUALITY: Technical quality was good. LEFT VENTRICLE: Normal chamber size. Moderate left ventricular hypertrophy. Sigmoid septum. LV EF: Global left ventricular systolic function is hyperdynamic; visually estimated ejection fraction is 65 to 70%. No significant wall motion abnormalities. DIASTOLIC: Unable to assess diastolic function. ATRIAL SEPTUM: Visually appears intact. LEFT ATRIUM: Normal chamber size. RIGHT ATRIUM: Normal chamber size. RIGHT VENTRICLE: Normal chamber size. Normal right ventricular systolic function. TRICUSPID VALVE: Normal mobility and thickness. No stenosis with trivial regurgitation. Unable to estimate right-sided pressures due to lack of measurable tricuspid regurgitation. MITRAL VALVE: Mildly thickened with normal mobility. No evidence of mitral valve stenosis. Mild mitral annular calcification. Trivial mitral regurgitation. AORTIC VALVE: Normal trileaflet appearance. No visible sclerosis. Normal leaflet mobility. No evidence of aortic valve stenosis. Trivial aortic regurgitation. AORTIC ROOT: Normal diameter and appearance. PULMONIC VALVE: Normal thickness and mobility. No stenosis. No regurgitation. PERICARDIUM: No evidence of pericardial effusion. IVC: Collapses with inspirations. IVC is normal in size. CONCLUSION: 1. Global left ventricular systolic function is hyperdynamic; visually estimated ejection fraction 65 to 70% 2. Normal right ventricular size and systolic function 3. Moderate left ventricular hypertrophy 4. No significant valvular abnormalities Adult Echocardiography Procedure Report Left Ventricle LVEDD (3.7 - 5.6 cm): 4.50 cm LVESD (2.2 - 4.0 cm): 2.40 cm LVIVS thickness (0.6 - 1.2 cm): 1.86 cm LVPW thickness (0.5 - 1.0 cm): 1.01 cm e': 0.06 m/s E - e': 10.01 LVOT Max Gradient: 3.23 mm[Hg] LVOT Area (cm2): 0.90 m/s Peak Velocity (LVOT): 0.90 m/s Mean Velocity (LVOT): 0.46 m/s LVOT Diameter 2.72 cm Left Atrium LA Volume Index (2D A2C): 31.85 ml/m2 Left Atrium Systolic Dimension: 4.03 cm Mitral Valve MV E to A Ratio: 0.95 Mitral Valve A-Wave Peak Velocity: 0.68 m/s Mitral Valve E-Wave Peak Velocity: 0.65 m/s Right Ventricle Aorta AO Root Diam: 3.95 cm Ascending Ao Diam: 3.59 cm Aortic Valve AoV Area (Peak Zac): 5.81 cm2, 5.81 cm2 AoV Area (VTI): 6.38 cm2, 6.38 cm2 Peak Velocity(Antegrade Flow): 0.90 m/s Peak Gradient(Antegrade Flow): 3.21 mm[Hg] Mean Velocity(Antegrade Flow): 0.59 m/s Mean Gradient(Antegrade Flow): 1.65 mm[Hg] Velocity Time Integral: 19.22 cm Tricuspid Valve Pulmonic Valve Mean Gradient: 1.43 mm[Hg] Mean Velocity: 0.55 m/s Peak Velocity: 0.84 m/s, 0.84 m/s Peak Gradient: 2.83 mm[Hg], 2.83 mm[Hg] Right Atrium Right Atrium Systolic Pressure: 41.40 ml, 41.40 ml Dictated by: Adal Hernandez M.D. on 12/18/2024 at 12:06 Approved by: Adal Hernandez M.D. on 12/18/2024 at 12:11
== END 2024-12-18 07:54 | disposition home or self-care (01) ==
LOC: CARD 07:54
PROVIDERS: Family Provider Family Medicine; PCP Family Medicine; Visit Provider Family Medicine
DX: I20.0 Unstable angina (principal)
CPT/HCPCS: 93306

== ENCOUNTER 2025-01-16 11:53 | Outpatient (OUT) | payer MEDICARE, SELFPAY ==
--- OUTSIDE RECORDS SUMMARY | 2025-01-09 06:29 | XMS_ITS ---
Author Organization [facility] in [place] Address [address] [place] [address] Care Team Providers Care Orchestra Director Name Role Phone Jack Godwin Primary Care Provider REASON FOR VISIT Ativan Refill Medications Medication SIG (Take, Route, Frequency, Duration) Notes Start Date End Date Status Ativan 1 MG 1 tablet F 41.9 Orally bid for 7 days As needed 01/09/2025 Active Encounters Encounter Location Date Provider Diagnosis [facility] [address] [place] [address] 01/09/2025 Jack Godwin Hypertension I10 Assessments Encounter Date Diagnosis (ICD Code) Assessment Notes Treatment Notes Treatment Clinical Notes Section Notes 01/09/2025 Hypertension (ICD-10 - I10) Plan Of Treatment Medication Medication Name Sig Start Date Stop Date Notes Ativan 1 MG 1 tablet F 41.9 Orally bid for 7 days 01/10/20 Progress Notes * Clark RIDDLE RDOB:1950 (74 yo M)Acc No.[id number]:01/09/2025 Patient: Blanca HOU Clark Bueno :1950 A ge:74 Y S ex:Male Address:[place] [address] * Refills Refill Ativan Tablet, 1 MG, Orally, 14, 1 tablet F 41.9, bid, 7 days, Refills=0 * true * Date: Generated for Printi ng/Faxing/eTransmitting on: 0 01/16/2025 11:59 AM EDT
--- OUTSIDE RECORDS SUMMARY | 2025-01-09 09:46 | XMS_ITS ---
Author Organization [facility] in [place] Address [address] [place] [address] Care Team Providers Care [place] Administrator Name Role Phone Jack Godwin Primary Care Provider REASON FOR VISIT Ativan issue Encounters Encounter Location Date Provider Diagnosis [facility] [address] [place] [address] 01/09/2025 Jack Godwin Plan Of Treatment No Information Progress Notes * Clark RIDDLE RDOB:1950 (74 yo M)Acc No.[id number]:01/09/2025 Patient: Blanca HOUClark :1950 A ge:74 Y S ex:Male Address:[address] [place] [address] * true * Date: Generated for Printi ng/Faxing/eTransmitting on: 0 01/16/2025 11:59 AM EDT
--- OUTSIDE RECORDS SUMMARY | 2025-01-15 11:00 | XMS_ITS | Encounter Summary ---
Author Organization [facility] Address [address] [place] [address] Care Team Providers Care Tool Mechanic Name Role Phone Rodriguez Godwin MD Primary Care Provider [phone] Reason for Visit * Consultation (Routine) - Pending Review Specialty Diagnoses / Procedures Referred By Jenny syed Referred To Contact Cardiology Diagnoses Atypical atrial flutter (CMS/HCC) SVT (supraventricular tachycardia) Procedures [place] OFFICE/OUTPATIENT [facility] 60 MINUTES Bruce Bah MD [address] [facility] [address] [facility] [place] [address] Shiv Shirley MD [address] [place] [id number] Referral ID Status Reason Start Date Expiration Date Visits Requested Visits Authorized [id number] Pending Review Specialty Services Required 11/14/2024 11/14/2025 1 1 Encounter Details Date Type Department Care Team (Late st Contact Info) Description 01/15/2025 11:00 AM EDT Office Visit [facility] Heart at [facility] [address] [place] [address] Shiv Shirley MD [address] [place] [address] Atypical atrial flutter (CMS/HCC); SVT (supraventricular tachycardia); NARANJO (dyspnea on exertion) Social History Tobacco Use Types Packs/Day Years Used Date Smoking Tobacco: Former Cigarettes Smokeless Tobacco: Never Alcohol Use Standard Drinks/Week Comments Yes 0 (1 standard drink = 0.6 oz pur e alcohol) [place] Safety & Environment Answer Date Rec orded [...] Insecurity: No Food Insecurity (08/09/2024) Received from [facility] Hunger Screening Within the past [...] nonobstructive CAD Shiv Shirley MD Cardiac Electrophysiology [facility] documented in this encounter Plan of Treatment [...] abnormality documented in this encounter Care Teams Tool Mechanic Relationship Specialty Start Date End Date Rodriguez Godwin MD [address] [facility] [address] [address] PCP - General 03/21/23 documented as of this encounter
--- OUTSIDE RECORDS SUMMARY | 2025-01-16 06:30 | XMS_ITS ---
Author Organization [facility] in [place] Address [address] [place] [address] Care Team Providers Care Tattoo Artist Name Role Phone Jack Godwin Primary Care Provider Allergies Allergen (clinical drug ingredient) Drug/Non Drug Allergy documented on EMR Reaction Allergy Type Onset Date Status Seafood Seafood (uncoded) GI issues Allergy Ac tive REASON FOR VISIT f/u from Dr Shirley- yesterday appointment, He ordered a nuc med stress- they are also going to testhim for sleep apnea as well, Has been very fatigued lately, some SOB when walking longer distances Medications Medication SIG (Take, Route, Frequency, Duration) Notes Start Date End Date Status Isosorbide Mononitrate ER 30 MG TAKE 1 TABLET EVERY MORNING for 90 Active Lisinopril 40 MG TAKE 1 TABLET EVERY DAY for 90 Active Topiramate 50 MG TAKE 1 TABLET BY OZIEL TH EVERY DAY FOR 30 DAYS for 30 Active cloNIDine HCl 0.1 MG 2 tablet Orally bid for 30 days Active Crestor Active Aspirin 81 81 MG 1 tablet Orally Once a day Active Ativan 1 MG 1 tablet F 41.9 Orally bid for 7 days As needed 01/09/2025 Active Celecoxib 200 MG 1 capsule with food Orally Once a day for 30 day(s) 02/21/2024 Active Social History Tobacco Use: Social History Observation Description Date Details (start date - stop date) Former Smoker 08/15/1979 - 08/15/2009 Tobacco Use/Smoking Question Answer Notes Patient is a former smoker When did you start smoking? 08/15/1979 When did you stop smoking? 08/15/2009 How long has it been since you last smoked? > 10 years Problems Problem Type SNOMED Code ICD Code Onset Dates Problem Status W/U Status Risk Notes Problem Fatigue (09104674) Fatigue (R53.83) Active confirmed Problem Dyspnea (R06.00) Active confirmed Vital Signs Weight 186.2 lbs 01/16/2025 Height 74 in 01/16/2025 Blood pressure systolic 156 mm Hg 01/17/20 25 Blood pressure diastolic 84 mm Hg 025 BMI 23.9 kg/m2 01/16/2025 Encounters Encounter Location Date Provider Diagnosis [facility] [address] [place] [address] 01/16/2025 Jack Horubio Hypertension I10 ; Fatigue R53.83 and Dyspnea R06.00 Assessments Encounter Date Diagnosis (ICD Code) Assessment Notes Treatment Notes Treatment Clinical Notes Section Notes 01/16/2025 Hypertension (ICD-10 - I10) 01/16/2025 Fatigue (ICD-10 - R53.83) 01/16/2025 Dyspnea (ICD-10 - R06.00) Plan Of Treatment Medication Medication Name Sig Start Date Stop Date Notes CeleXA 10 MG 1 tablet Orally Once a day 12/18/2024 Eliquis 5 MG 1 tablet Orally Twice a day 02/21/2024 SEROquel 100 MG 1 tablet at bedtime Orally Once a day 11/14 Pending Test Test Name Order Date BNP 01/16/2025 MAGNESIUM 01/16/2025 THYROID PANEL (T4/TSH/FREE T3) CMP (COMP MET MCCLURE) w/eGFR CKD-EPI 2024 CBC WITH DIFF 01/16/2025 Progress Notes * Clark RIDDLE RDOB:1950 (74 yo M)Acc No.[id number]:01/16/2025 UNLOCKED PROGRESS NOTE Progress Note Patient: Clark MENDOZA Provider: Chiki Godwin ([facility])MD :1950 A ge:74 Y S ex:Male Date:01/16/2025 Address:[address] [place] [address] RD, [facility], [id number] Check In:10:25 AM ESTCheck O ut:11:00 AM EST Subjective: * Chief Complaints: * 1 . f/u from Dr Shirley- yesterday appointment. 2. He ordered a nuc med stress- they are also going to test him for sleep apnea as well. 3. Has been very fatigued lately, some SOB when walking longer distances. * HPI: G eneral: Elias and sleepy tired used to be able to bicycle like crazy - no longer can [id number] even bike on e mile and not some snoring - daytime fatigue - needs sleep study - setting up by cardiology. * ROS: E ENT: hearing changes d enies. v isual changes d enies.?non-healing mouth sores d enies. s wollen glands or neck lumps d enies. h oarseness d enies. s ore throat d enies. d ifficulty swallowing d enies. n ose bleeds d enies. n leonard congestion d enies. e ar ache d enies. e ar discharge?denies. r inging in ears d enies. l ight sensitivity d enies. e ye pain d enies. b lurring d enies. e ye irritation d enies. d ouble vision d enies.?vision loss d enies. G eneral/Constitutional: Sweats: D enies. F atigue d enies. S leep problems d enies. A norexia d enies. M alaise d enies. W eight loss d enies.?Fatigue or Weakness d enies. F ever or Chills d enies. C ardiovascular: Shortness of Breath w/lying flat d enies. L ightheadedness/dizziness d enies. C hest tightness/ heavy pressure d enies. S welling of legs, ankles, or feet d enies. W aking up with shortness of breath d enies. C hest pain denies. P alpitations d enies. W eight gain d enies. R espiratory: Chronic or frequent cough d enies. C oughing up blood?denies. D ifficulty breathing d enies. P roductive cough d enies. S noring?denies. S hortness of breath that awakens from sleep (PND) d enies. C hest pain d enies. S putum production d enies. W heezing d enies. M usculoskeletal: Joint pain d enies. J oint Fluid d enies. B ack pain d enies. K nee pain d enies. N edin pain d enies. J oint Stiffness d enies. M uscle cramps d enies. W eakness of muscles d enies. A rthritis d enies. M uscle aches d enies. P ain in shoulder(s) d enies. S wollen joints d enies. * Medical History: A nxiety, Hypertension, Crohn disease. * Surgical History: T ONSILLECTOMY,UNDER 12YRS , Crohns- bowel resection, 8ft taken out . * Hospitalization/Major Diagno stic Procedure: h eart cath 2022, bowel obstruction 08/2023. * Family History: F ather: 80 yrs, Smoker- COPD, coronary artery disease, diagnosed with Diabetes mellitus without mention of complication, type II or unspecified type, not stated as uncontrolled. M other: 80 yrs, coronary artery disease, diagnosed with Diabetes mellitus without mention of complication, type II or unspecified type, not stated as uncontrolled. B rother(s): , Tumor in Heart- Hepatorenal syndrome, PE. S ister(s): alive. D fanny(s): alive, asthma.?2 brother(s) , 2 sister(s) . 1 son(s) , 1 daughter(s) . . Brothers passed at 73 & 63 Son passed at 3 months old. * Social History: T obacco Use: T obacco Use/Smoking P atient is a f ormer smoker W hen did you start smoking? 0 08/15/1979 W hen did you stop smoking? 0 08/15/2009 H ow long has it been since you last smoked??> 10 years * Medications: T aking Aspirin 81(Aspirin) 81 MG Tablet Delayed Release 1 tablet Orally Once a day , Taking Ativan(LORazepam) 1 MG Tablet 1 tablet F 41.9 Orally bid As needed, Taking Celecoxib 200 MG Capsule 1 capsule with food Orally Once a day , Taking CeleXA(Citalopram Hydrobromide) 10 MG Tablet 1 tablet Orally Once a day , Taking cloNIDine HCl 0.1 MG Tablet 2 tablet Orally bid , Taking Crestor , Taking Eliquis(Apixaban) 5 MG Tablet 1 tablet Orally Twice a day 10mg bid for 1 week, then 5mg bid for 6 months, Taking Isosorbide Mononitrate ER 30 MG Tablet Extended Release 24 Hour TAKE 1 TABLET EVERY MORNING , Taking Lisinopril 40 MG Tablet TAKE 1 TABLET EVERY DAY , Taking SEROquel(QUEtiapine Fumarate) 100 MG Tablet 1 tablet at bedtime Orally Once a day , Taking Topiramate 50 MG Tablet TAKE 1 TABLET BY MOUTH EVERY DAY FOR 30 DAYS , Medication List reviewed and reconciled with the patient * Allergies: S eafood: GI issues - Side Effects. Objective: * Vitals: W t:186.2lbs, Ht: 74 in, BP:156/84mm Hg, BMI:23.9Index, Ht-cm: 187.96 cm, Wt-k.46 kg. * Examination: P hysical Exam: GENERAL: w ell developed, well nourished, in no acute distress. HEAD: n ormocephalic/atraumatic. EYES: p upils equal, round and reactive to light, conjunctivae and sclerae normal. EARS: n o deformity or lesion of external ear, canals and TM appear normal bilaterally, TM's intact, not inflamed with normal light reflex, hearing grossly normal to conversational speech. NOSE: n o deformity, discharge, inflammation, or lesions.? MOUTH: m ucous membranes moist, normal oropharynx and posterior pharynx without lesions or exudates, tongue normal, dentition normal. NECK: n edin supple, no masses or palpable cervical nodes, trachea midline, thyroid without nodules, masses, tenderness, or enlargement. CHEST: n o chest wall deformity, no chest wall tenderness.? LUNGS: n ormal respiratory effort and clear to auscultation, no wheezes, rales, or rhonchi, good air exchange. CARDIO: r egular rate and rhythm, normal S1 and S2, nor murmur, rub, or gallop. PULSES: n ormal capillary refill. ABDOMEN: s oft, non-distended, non-tender, no masses. MUSCULOSKELETAL: n o deformity or scoliosis noted, normal range of motion, joints normal, no erythema, edema, effusion, or ecchymosis. EXTREMITY: n o clubbing, cyanosis, edema, or deformity with normal ROM in both upper and lower bilateral extremities. NEUROLOGIC: g rossly normal. SKIN: n o rashes, ulcerations, or suspicious lesions. LYMPH NODES: n o cervical adenopathy, nodes normal. MENTAL STATUS: a lert and oriented x3, normal mood and affect. Assessment: * Assessment: 1. H ypertension - I10 (Primary) 2 . F atigue - R53.83 3 .?Dyspnea - R06.00 Plan: * Treatment: 2. F atigue L AB: BNP L AB: MAGNESIUM L AB: THYROID PANEL (T4/TSH/FREE T3) L AB: CMP (COMP MET MCCLURE) w/eGFR CKD-EPI L AB: CBC WITH DIFF 3. D yspnea L AB: BNP L AB: MAGNESIUM L AB: THYROID PANEL (T4/TSH/FREE T3) L AB: CMP (COMP MET MCCLURE) w/eGFR CKD-EPI L AB: CBC WITH DIFF * * Electronic signature of Jack Godwin MD, [id number] on 01/16/2025 at 11:59 AM EDT Sign off status: Pending Visit Status: C HK (Check Out) * Provider: Chiki Godwin ([facility])MD Date: 01/16/2025 Generated for Amyi herlinda/Mahad/eTransmitting on: 01/16/2025 11:59 AM EDT History and Physical Notes * HPI (History of Present Illness) Category Sub-Category Detail Notes Category Not es General Elias and sleepy tired used to be able to bicycle like crazy - no longer can o4rphti even bike on e mile and not some snoring - daytime fatigue - needs sleep study - setting up by cardiology Examination Category Sub-Category Detail Notes Category Not es Physical Exam GENERAL: well developed, well nourished, in no acute distress HEAD: normocephalic/atraum atic EYES: pupils equal, round and reactive to light, conjunctivae and sclerae normal EARS: no deformity or lesi on of external ear, canals and TM appear normal bilaterally, TM's intact, not inflamed with normal light reflex, hearing grossly normal to conversational speech NOSE: no deformity, discha rge, inflammation, or lesions MOUTH: mucous membranes zaida st, normal oropharynx and posterior pharynx without lesions or exudates, tongue normal, dentition normal NECK: neck supple, no mass es or palpable cervical nodes, trachea midline, thyroid without nodules, masses, tenderness, or enlargement CHEST: no chest wall deform ity, no chest wall tenderness LUNGS: normal respiratory e ffort and clear to auscultation, no wheezes, rales, or rhonchi, good air exchange CARDIO: regular rate and rhy thm, normal S1 and S2, nor murmur, rub, or gallop PULSES: normal capillary ref ill ABDOMEN: soft, non-distended, non-tender, no masses RECTAL: MUSCULOSKELETAL: no deformity or scol iosis noted, normal range of motion, joints normal, no erythema, edema, effusion, or ecchymosis EXTREMITY: no clubbing, cyanosi s, edema, or deformity with normal ROM in both upper and lower bilateral extremities NEUROLOGIC: grossly normal SKIN: no rashes, ulceratio ns, or suspicious lesions LYMPH NODES: no cervical adenopat hy, nodes normal MENTAL STATUS: alert and oriented x 3, normal mood and affect
--- OUTSIDE RECORDS SUMMARY | 2025-01-16 11:59 | XMS_ITS | Encounter Summary ---
Author Organization [facility] Address [address] [place] [address] Care Team Providers Care Green Chain Worker Name Role Phone Rodriguez Godwin MD Primary Care Provider [phone] Encounter Details Date Type Department Care Team (Late st Contact Info) Description 01/15/2025 Orders Only [facility] Heart at [facility] [address] [place] [address] ProviderAmanda MD [address] [place] [id number] Social History Tobacco Use Types Packs/Day Years Used Date Smoking Tobacco: Former Cigarettes Smokeless Tobacco: Never Alcohol Use Standard Drinks/Week Comments Yes 0 (1 standard drink = 0.6 oz pur e alcohol) [place] Safety & Environment Answer Date Rec orded [...] AM EDT documented as of this encounter Plan of Treatment Not on file documented as of this encounter Procedures Procedure Name Priority Date/Time Associated Diagnosis Comments ROUTINE STRESS (TREADMILL ONLY) Routine 10/03/2024 11:41 AM EST documented in this encounter Results * Routine Stress (Treadmill Only) (10/03/2024 11:41 AM EST) Anatomical Region Laterality Modality Other Historical Provider CV STRESS PROCEDU RES documented in this encounter Visit Diagnoses Not on filedocumented in this encounter Care Teams Green Chain Worker Relationship Specialty Start Date End Date Rodriguez Godwin MD [address] [facility] [address] [address] PCP - General 03/21/23 documented as of this encounter
--- OUTSIDE RECORDS SUMMARY | 2025-01-16 11:59 | XMS_ITS | Encounter Summary ---
Author Organization [facility] Address [address] [place] [address] Care Team Providers Care Coordinate Measuring Machine Operator Name Role Phone Rodriguez Godwin MD Primary Care Provider [phone] Encounter Details Date Type Department Care Team (Late st Contact Info) Description 01/15/2025 Orders Only [facility] at [facility] [address] [place] [address] Jordyn Harley MA Social History Tobacco Use Types Packs/Day Years [...] on file documented as of this encounter Visit Diagnoses Not on filedocumented in this encounter Care Teams Coordinate Measuring Machine Operator Relationship Specialty Start Date End Date Rodriguez Godwin MD [address] [facility] [place], [place] [phone] PCP - General 03/21/23 documented as of this encounter
--- OUTSIDE RECORDS SUMMARY | 2025-01-16 11:59 | XMS_ITS | Referral Summary ---
Author Organization [facility] Address [address] [place] [address] Care Team Providers Care Manufacturing Engineer Machining Name Role Phone Rodriguez Godwin MD Primary Care Provider [phone] Encounters Date Type Department Care Team Description 01/15/2025 Orders Only [address] [id number] Jordyn Harley MA 01/15/2025 Orders Only [address] [address] ProviderAmanda MD 01/15/2025 11:00 AM EDT Office Visit [address] [address] Shiv Shirley MD Atypical atrial flutter (CMS/HCC); SVT (supraventricular tachycardia); NARANJO (dyspnea on exertion) 01/14/2025 Orders Only [address] [address] ProviderAmanda MD 12/19/[address] [address] Bruce Bah MD 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 12/10/[address] [address] Bruce Bah MD 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 11/14/2024 2:45 PM EDT Office Visit [place] [address] [place] [address] Bruce Bah MD Atypical atrial flutter (CMS/HCC) (Primary Dx); SVT (supraventricular tachycardia); History of pulmonary embolism; 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 03/07/2023 Active mesalamine (Delzicol) [address] capsule Take 2 capsules by mouth in the morning and at bedtime. Active traZODone (Desyrel) 50 mg tablet 0.5 tablet Orally bedtime as needed Active aspirin 81 mg EC tablet Take 81 mg by mouth in the morning. Active isosorbide mononitrate ER (Imdur) 30 mg 24 hr tablet Take 30 mg by mouth in the morning. Do not crush or chew. Active magnesium 30 mg tablet Take 30 mg by mouth in the morning and at bedtime. Active cloNIDine (Catapres) 0.1 mg tablet Take 0.2 mg by mouth Twice daily at 6am and 6pm. 11/10/2023 Active topiramate 50 mg tablet 50 mg 1 (one) time each day at the same time. 12/07/2023 Active lisinopril 40 mg tabletIndications :Primary hypertension,Unco ntrolled hypertension Take 1 tablet (40 mg) by mouth in the morning. 90 tablet 3 12/09/2023 Active apixaban (Eliquis) 2.5 mg tabletIndications :History of DVT (deep vein thrombosis),Histo ry of pulmonary embolism Take 1 tablet (2.5 mg) by mouth two times daily. 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 Do not crush or chew. 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 90 tablet 3 12/09/2023 12/20/19 25 Discontinued Active Problems Problem Noted Date Diagnosed Date Anticoagulated 01/15/2025 BPH with obstruction/lower urinary tract symptom s 01/15/2025 Elevated PSA 01/15/2025 History of kidney stones 01/15/2025 Incomplete bladder emptying 01/15/2025 Pulmonary embolism 01/15/2025 Kidney stone 01/15/2025 Crohn's disease 04/04/2024 Eloped from emergency department 04/04/2024 Mild congestive heart failure 04/04/2024 VT (ventricular tachycardia) 03/24/2023 Aortic valve regurgitation, nonrheumatic 023 Overview (03/21/2023): Mild to mod AO regurg 2022 Assessment & Plan (03/21/2023 2:58 PM EDT): Will continue to monitor with routine echocardiograms. Nonrheumatic mitral valve regurgitation 03/21/20 Overview (03/21/2023): Mild to mod MV regurg 2022 Assessment & Plan (03/21/2023 2:56 PM EDT): Will continue to monitor. Diastolic dysfunction, left ventricle 03/21/2023 Overview (03/21/2023): Grade 2 DD 03/2023 Assessment & Plan (03/21/2023 2:58 PM EDT): Currently euvolemic without and volume overload Elevated rt disided pressures may be r/t pulmonary process in light of + smoking. Chest pain 03/21/2023 03/21/2023 Pain in limb 03/21/2023 03/21/2023 Non-sustained ventricular tachycardia 03/21/2023 Assessment & Plan (03/21/2023 2:56 PM EDT): Resume metoprolol 50 mg po bid for arrythmia management Plan for cardiac cath and may need evaluation with EP Unstable angina 03/15/2023 Assessment & Plan (03/21/2023 2:53 PM EDT): In light of unstable angina with uncontrolled HTN, multiple syncopal episodes and NSVT will send pt for heart cath- Lt Cors and cancel stress test at this time for ischemic evaluation. Uncontrolled hypertension 03/15/2023 Assessment & Plan (03/21/2023 2:55 PM EDT): Hypertension is improved but he stopped taking metoprolol 100 mg bid r\t fatigue. Will resume metoprolol at 50 mg bid and increase lisinopril to 40 mg daily. Repeat BMP in 1 week Syncope and collapse 03/15/2023 Overview (03/21/2023): ED visit [facility] for dehydration, near syncope. Assessment & Plan (03/21/2023 2:50 PM EDT): In light pt admits 2 episodes of syncope while on vacation in [place] with his daughter- denied any symptoms prior to waking up on the floor- broke 3 front teeth in one episode. Social History Tobacco Use Types Packs/Day Years Used Date Smoking Tobacco: Former Cigarettes Smokeless Tobacco: Never Tobacco Cessation:Counseling Given: Not Answered Alcohol Use Standard Drinks/Week Comments Yes 0 [...] Heterosexual or Straight 03/16 10:50 AM EDT Last Filed Vital Signs Vital Sign Reading Time Taken Comments Blood Pressure 116/62 01/15/2025 10:56 AM EDT Pulse 95 01/15/2025 10:56 AM EDT Temperature - - Respiratory Rate 16 12/09/2023 10:42 AM EDT Oxygen Saturation 96% 01/15/2025 10:56 AM EDT Inhaled Oxygen Concentration - - Weight 83.9 kg (185 lb) 01/15/2025 10:56 AM EDT Height 188 cm (6' 2 ) 01/15/2025 10:56 AM EDT Body Mass Index 23.75 01/15/2025 10:56 AM EDT Plan of Treatment Not on file Procedures Procedure Name Priority Date/Time Associated Diagnosis Comments COMPLETE TRANSTHORACIC ECHO (TTE) W/WO IMAGING AGENT, STRAIN, 3D, BUBBLE STUDY Routine 12/18/2024 9:59 AM EDT CBC Routine 11/30/2024 9:59 AM EDT BASIC METABOLIC PANEL Routine 11/30/2024 9:59 AM EDT HIGH SENSITIVITY TROPONIN I Routine 11/30/2024 9:59 AM EDT ECG 12-LEAD Routine 11/30/2024 9:58 AM EDT CBC Routine 11/25/2024 9:55 AM EDT COMPREHENSIVE METABOLIC PANEL Routine 11/25/2024 9:55 AM EDT MAGNESIUM Routine 11/25/2024 9:55 AM EDT HIGH SENSITIVITY TROPONIN I Routine 11/25/2024 9:55 AM EDT B-TYPE NATRIURETIC PEPTIDE Routine 11/25/2024 9:55 AM EDT TSH Routine 11/25/2024 9:55 AM EDT XR CHEST 2 VIEWS Routine 11/25/2024 9:44 AM EDT ECG 12-LEAD Routine 11/25/2024 9:43 AM EDT from Last 3 Months Results * Complete Echo (TTE) w/wo Imaging Agent, Strain, 3D, Bubble Study (12/18/2024 9:59 AM EDT) Anatomical Region Laterality Modality Ultrasound Historical Provider CV ECHO PROCEDURE S * High Sensitivity Troponin I (11/30/2024 9:59 AM EDT) Only the most recent of2 resultswithin the time period is included. Blood Venous blood specimen / Unknown Historical Provider LAB BLOOD ORDERAB LES * CBC (11/30/2024 9:59 AM EDT) Only the most recent of2 resultswithin the time period is included. Blood Venous blood specimen / Unknown Historical Provider LAB BLOOD ORDERAB LES * Basic metabolic panel (11/30/2024 9:59 AM EDT) Blood Venous blood specimen / Unknown Historical Provider LAB BLOOD ORDERAB LES * ECG 12 lead (11/30/2024 9:58 AM EDT) Only the most recent of2 resultswithin the time period is included. Historical Provider ECG ORDERABLES * TSH (11/25/2024 9:55 AM EDT) Blood Venous blood specimen / Unknown Historical Provider LAB BLOOD ORDERAB LES * B-type natriuretic peptide (11/25/2024 9:55 AM EDT) Blood Venous blood specimen / Unknown Historical Provider LAB BLOOD ORDERAB LES * Magnesium (11/25/2024 9:55 AM EDT) Blood Venous blood specimen / Unknown Historical Provider LAB BLOOD ORDERAB LES * Comprehensive metabolic panel (11/25/2024 9:55 AM EDT) Blood Venous blood specimen / Unknown Historical Provider LAB BLOOD ORDERAB LES * XR chest 2 views (11/25/2024 9:44 AM EDT) Anatomical Region Laterality Modality Chest Computed Radiogr aphy Historical Provider IMG XR PROCEDURES from Last 3 Months Care Teams Manufacturing Engineer Machining Relationship Specialty Start Date End Date Rodriguez Godwin MD [address] [facility] [address] [address] PCP - General 03/21/23
--- OUTSIDE RECORDS SUMMARY | 2025-01-16 11:59 | XMS_ITS | Encounter Summary ---
Author Organization [facility] Address [address] [place] [address] Care Team Providers Care Paver Layer Name Role Phone Rodriguez Godwin MD Primary Care Provider [phone] Encounter Details Date Type Department Care Team (Late st Contact Info) Description 01/14/2025 Orders Only [facility] [address] [place] [address] ProviderAmanda MD [address] [place] [id number] Social History Tobacco Use Types Packs/Day Years [...] BUBBLE STUDY Routine 12/18/2024 9:59 AM EDT HIGH SENSITIVITY TROPONIN I Routine 11/30/2024 9:59 AM EDT CBC Routine 11/30/2024 9:59 AM EDT BASIC METABOLIC PANEL Routine 11/30/2024 9:59 AM EDT ECG 12-LEAD Routine 11/30/2024 9:58 AM EDT HIGH SENSITIVITY TROPONIN I Routine 11/25/2024 9:55 AM EDT CBC Routine 11/25/2024 9:55 AM EDT TSH Routine 11/25/2024 9:55 AM EDT B-TYPE NATRIURETIC PEPTIDE Routine 11/25/2024 9:55 AM EDT MAGNESIUM Routine 11/25/2024 9:55 AM EDT COMPREHENSIVE METABOLIC PANEL Routine 11/25/2024 9:55 AM EDT XR CHEST 2 VIEWS Routine 11/25/2024 9:44 AM EDT ECG 12-LEAD Routine 11/25/2024 9:43 AM EDT documented in this encounter Results * Complete Echo (TTE) w/wo Imaging Agent, Strain, 3D, Bubble Study (12/18/2024 9:59 AM EDT) Anatomical Region Laterality Modality Ultrasound Historical Provider CV ECHO PROCEDURE S * CBC (11/30/2024 9:59 AM EDT) Blood Venous blood specimen / Unknown Historical Provider LAB BLOOD ORDERAB LES * Basic metabolic panel (11/30/2024 9:59 AM EDT) Blood Venous blood specimen / Unknown Historical Provider LAB BLOOD ORDERAB LES * High Sensitivity Troponin I (11/30/2024 9:59 AM EDT) Blood Venous blood specimen / Unknown Historical Provider LAB BLOOD ORDERAB LES * ECG 12 lead (11/30/2024 9:58 AM EDT) Historical Provider ECG ORDERABLES * CBC (11/25/2024 9:55 AM EDT) Blood Venous blood specimen / Unknown Historical Provider LAB BLOOD ORDERAB LES * Comprehensive metabolic panel (11/25/2024 9:55 AM EDT) Blood Venous blood specimen / Unknown Historical Provider LAB BLOOD ORDERAB LES * Magnesium (11/25/2024 9:55 AM EDT) Blood Venous blood specimen / Unknown Historical Provider LAB BLOOD ORDERAB LES * High Sensitivity Troponin I (11/25/2024 9:55 AM EDT) Blood Venous blood specimen / Unknown Historical Provider LAB BLOOD ORDERAB LES * B-type natriuretic peptide (11/25/2024 9:55 AM EDT) Blood Venous blood specimen / Unknown Historical Provider LAB BLOOD ORDERAB LES * TSH (11/25/2024 9:55 AM EDT) Blood Venous blood specimen / Unknown Historical Provider LAB BLOOD ORDERAB LES * XR chest 2 views (11/25/2024 9:44 AM EDT) Anatomical Region Laterality Modality Chest Computed Radiogr aphy Historical Provider IMG XR PROCEDURES * ECG 12 lead (11/25/2024 9:43 AM EDT) Historical Provider ECG ORDERABLES documented in this encounter Visit Diagnoses Not on filedocumented in this encounter Care Teams Paver Layer Relationship Specialty Start Date End Date Rodriguez Godwin MD [address] [facility] [place] [address] PCP - General 03/21/23 documented as of this encounter
--- OUTSIDE RECORDS SUMMARY | 2025-01-16 12:00 | XMS_ITS | Encounter Summary ---
Author Organization [facility] Address [address] [place] [address] Care Team Providers Care Clip Bolter And Wrapper Name Role Phone Rodriguez Godwin MD Primary Care Provider [phone] Reason for Visit * Reason Comments Med Refill Encounter Details Date Type Department Care Team (Late st Contact Info) Description 12/10/2024 Refill [facility] Heart at [facility] [address] [place] [address] Bruce Bah MD [address] [facility] [place] [address] Coronary artery disease involving [place] coronary artery of [place] heart without angina pectoris Social History Tobacco Use Types Packs/Day Years [...] as of this encounter Visit Diagnoses Diagnosis Coronary artery disease involving [place] coronary artery of [place] heart without angina pectoris documented in this encounter Care Teams Clip Bolter And Wrapper Relationship Specialty Start Date End Date Rodriguez Godwin MD [address] [place] [address] PCP - General 03/21/23 documented as of this encounter
--- OUTSIDE RECORDS SUMMARY | 2025-01-16 12:00 | XMS_ITS | Clinical Summary ---
Author Organization [facility] Address [address] [facility] [place] [address] Care Team Providers Care Roof Fitter Name Role Phone Errol Bojorquez DO Unavailable [phone] Rodriguez Godwin MD Primary Care Provider [phone] Allergies No known active allergies Medications lisinopril 5 MG tablet Take 5 mg by mouth Daily Active cloNIDine (Catapres) 0.1 MG tablet Take 0.1 mg by mouth in the morning and 0.1 mg before bedtime. Active isosorbide dinitrate (Isordil) 5 MG tablet Take 5 mg by mouth Daily Active mesalamine (Delzicol) [address] capsule Take 400 mg by mouth in the morning and 400 mg before bedtime. Active LORazepam (Ativan) 0.5 MG tablet Take 0.5 mg by mouth at bedtime Active diphenhydrAMINE (BENADryl) 50 MG tablet Take 50 mg by mouth as needed at bedtime for itching Active Multiple Vitamin (multivitamin) capsule Take 1 capsule by mouth Daily Active Encounters Date Type Department Care Team Description 11/05/2024 9:00 AM EDT Office Visit [place] [id number] [place] [phone] Errlo Bojorquez DO Syncope, unspecified syncope type (Primary Dx); Atrial flutter, unspecified type (CMS/HCC) 11/05/2024 Bamboo flowsheet [facility] [address] [place] [phone] Errol Bojorquez DO from Last 3 Months Social History Tobacco Use Types Packs/Day Years Used Date Smoking Tobacco: Never Assessed Sex and Gender Information Value Date Recorded Sex Assigned at Not on file Legal Sex Male 6:36 PM EDT Gender Identity Not on file Sexual Orientation Not on file Last Filed Vital Signs Vital Sign Reading Time Taken Comments Blood Pressure 178/96 11/05/2024 9:01 AM EDT Pulse 81 11/05/2024 9:01 AM EDT Temperature - - Respiratory Rate - - Oxygen Saturation 96% 11/05/2024 9:01 AM EDT Inhaled Oxygen Concentration - - Weight 81.6 kg (180 lb) 11/05/2024 9:01 AM EDT Height 188 cm (6' 2 ) 09/28/2021 12:00 PM EST Body Mass Index 23.11 09/28/2021 12:00 PM EST Plan of Treatment Health Maintenance Due Date Last Done Comments CT Colonography 1949 Colonoscopy 1950 Colorectal Cancer Screening 1950 FIT-DNA 1950 FIT 1949 FOBT 1950 Sigmoidoscopy 1950 Pneumococcal Vaccine: 65+ Years (1 of - PCV) 000 Influenza Vaccine (Season Ended) 2025 09/21/19 24 Insurance [employer] Care Teams Roof Fitter Relationship Specialty Start Date End Date Rodriguez Godwin MD PCP - General Family Medicine 11/05/24 Errol Bojorquez DO Referring Physician Neurology 11/05/24
--- OUTSIDE RECORDS SUMMARY | 2025-01-16 12:00 | XMS_ITS | Clinical Summary ---
Author Organization [facility] Address [address] [place] [address] Care Team Providers Care Blending Supervisor Name Role Phone Rodriguez Godwin MD Primary Care Provider [phone] Allergies Active Allergy Reactions Criticality Noted Date [...] 20 mg tabletIndications :Coronary artery disease involving [place] coronary artery of [place] heart without angina pectoris TAKE 1 TABLET BY MOUTH EVERY DAY IN THE MORNING 90 tablet 3 12/10/2024 Active Additional Information Patient not taking.Reported on 01/15/2025 metoprolol succinate XL (Toprol-XL) 25 mg 24 hr tabletIndications :Coronary artery disease involving [place] coronary artery of [place] heart without angina pectoris TAKE 1 TABLET (25 MG) BY MOUTH IN THE MORNING . DO NOT CRUSH OR CHEW 90 tablet 3 12/19/2024 12/20/19 Active ezetimibe (Zetia) 10 mg tabletIndications :Coronary artery disease involving [place] coronary artery of [place] heart without angina pectoris TAKE 1 TABLET BY MOUTH EVERY DAY IN THE MORNING 90 tablet 3 12/19/2024 Active tamsulosin (Flomax) 0.4 mg 24 hr capsule Take 0.4 mg by mouth in the morning. 12/11/2024 12/07/19 26 Active metoprolol succinate XL (Toprol-XL) 25 mg 24 hr tabletIndications :Coronary artery disease involving [place] coronary artery of [place] heart without angina pectoris Take 1 tablet (25 mg) by mouth in the morning. Do not crush or chew. 90 tablet 3 12/09/2023 12/20/19 Discontinued ezetimibe (Zetia) 10 mg tabletIndications :Coronary artery disease involving [place] coronary artery of [place] heart without angina pectoris Take 1 tablet [...] (ventricular tachycardia) 03/24/2023 Aortic valve regurgitation, nonrheumatic 08/07/2 023 Overview (03/21/2023): Mild to mod AO regurg 2022 Assessment & Plan (03/21/2023 2:58 PM EDT): Will continue to monitor with routine echocardiograms. Nonrheumatic mitral valve regurgitation 03/21/20 23 Overview (03/21/2023): Mild to mod MV regurg [...] and collapse 03/15/2023 Overview (03/21/2023): ED visit [facility] for dehydration, near syncope. Assessment & Plan (03/21/2023 2:50 PM EDT): In light pt admits 2 episodes of syncope while on vacation in [place] with his daughter- denied any symptoms prior to waking up on the floor- broke 3 front teeth in one episode. Encounters Date Type Department Care Team Description 01/15/2025 11:00 AM EDT Office Visit [address] [place] [address] Shiv Shirley MD Atypical atrial flutter (CMS/HCC); SVT (supraventricular tachycardia); NARANJO (dyspnea on exertion) 01/15/2025 Orders Only [address] [place] [address] Jordyn Harley MA 01/15/2025 Orders Only [address] [place] [address] Provider, MD Amanda 01/14/2025 Orders Only [address] [place] [address] Provider, MD Amanda 12/19/[address] [place] [address] Bruce Bah MD Coronary artery disease involving [place] coronary artery of [place] heart without angina pectoris 12/10/[address] [place] [address] Bruce Bah MD Coronary artery disease involving [place] coronary artery of [place] heart without angina pectoris 11/14/2024 2:45 PM EDT Office Visit [address] [place] [address] Bruce Bah MD Atypical atrial flutter (CMS/HCC) (Primary Dx); SVT (supraventricular tachycardia); History of pulmonary embolism; Coronary artery disease involving [place] coronary artery of [place] heart without angina pectoris; Primary hypertension; LVH (left ventricular hypertrophy); History of DVT (deep vein thrombosis) from Last 3 Months Family History Medical History Relation Name Comments Pulmonary embolism Brother Coronary artery disease Father Diabetes Father Heart attack Father Coronary artery disease Mother Diabetes Mother Relation Name Status Comments Brother Father Mother Social History Tobacco Use Types Packs/Day Years [...] 01/15/2025 10:56 AM EDT Plan of Treatment Health Maintenance Due Date Last Done Comments CT Colonography 1950 Colonoscopy 1950 Colorectal Cancer Screening 1949 FIT-DNA 1949 FIT 1949 FOBT 1950 Medicare Annual Wellness (AWV) 1950 Sigmoidoscopy 1950 Pneumococcal Vaccine: 65+ Years (1 of 2 - PCV) 1955 Depression Screening 1961 Zoster Vaccines (1 of 2) 1999 Fall Risk Screening 2014 COVID-19 Vaccine (4 - 2023-2 5 season) 2024 09/14/2023, 09/10/2020, 08/13/2020 Influenza Vaccine (Season Ended) 2025 09/21/2023, 06/13/2009 Adult Tetanus 09/14/2033 09/14/2023 HIB Vaccines Aged Out No longer eligi ble based on patient's age to complete this topic HPV Vaccines Aged Out No longer eligi ble based on patient's age to complete this topic IPV Vaccines Aged Out No longer eligi ble based on patient's age to complete this topic Meningococcal B Vaccine Aged Out No l onger eligible based on patient's age to complete this topic Meningococcal Vaccine Aged Out No tomas sandra eligible based on patient's age to complete this topic Rotavirus Vaccines Aged Out No longer eligible based on patient's age to complete this topic Procedures Procedure Name Priority Date/Time Associated Diagnosis [...] Venous blood specimen / Unknown Historical Provider MD LAB BLOOD ORDERAB LES * CBC (11/30/2024 9:59 AM EDT) Only the most recent of2 resultswithin the time period is included. Blood Venous blood specimen / Unknown Historical Provider MD LAB BLOOD ORDERAB LES * Basic metabolic panel (11/30/2024 9:59 AM EDT) Blood Venous blood specimen / Unknown Historical Provider MD LAB BLOOD ORDERAB LES * ECG 12 lead (11/30/2024 9:58 AM EDT) Only the most recent of2 resultswithin the time period is included. Historical Provider ECG ORDERABLES * TSH (11/25/2024 9:55 AM EDT) Blood Venous blood specimen / Unknown Historical Provider MD LAB BLOOD ORDERAB LES * B-type natriuretic peptide (11/25/2024 9:55 AM EDT) Blood Venous blood specimen / Unknown Historical Provider MD LAB BLOOD ORDERAB LES * Magnesium (11/25/2024 9:55 AM EDT) Blood Venous blood specimen / Unknown Historical Provider MD LAB BLOOD ORDERAB LES * Comprehensive metabolic panel (11/25/2024 9:55 AM EDT) Blood Venous blood specimen / Unknown Historical Provider LAB BLOOD ORDERAB LES * XR chest 2 views (11/25/2024 9:44 AM EDT) Anatomical Region Laterality Modality Chest Computed Radiogr aphy Historical Provider IMG XR PROCEDURES from Last 3 Months Care Teams Blending Supervisor Relationship Specialty Start Date End Date Rodriguez Godwin MD [address] [facility] [address] [address] PCP - General 03/21/23
--- OUTSIDE RECORDS SUMMARY | 2025-01-16 12:01 | XMS_ITS | Patient Health Record ---
Author Organization [facility] in [place] Address [address] [place] [address] Care Team Providers Care [employer] Professor Name Role Phone Jack Godwin Primary Care Provider LAUREN GODWIN Unavailable [phone] Allergies Allergen (clinical drug ingredient) Drug/Non Drug Allergy documented on EMR Reaction Allergy Type Onset Date Status Seafood Seafood (uncoded) GI issues Allergy Ac tive Results Component Value Reference Range Notes CBC AUTO DIFF Reviewed date:10/23/2024 03:58:06 PM Interpretation: Performing Lab: Notes/Report: [facility] , White Blood Count 6.1 4.0-11.0 10 3/uL Red Blood Count 4.11 4.70-6.10 10 6/uL Hemoglobin 13.2 14.0-18.0 g/dL Hematocrit 39.4 42.0-54.0 % Mean Corpuscular Volume 95.9 80.0-94.0 fL Mean Corpuscular Hemoglobin 32.1 25.9-34.0 pg Mean Corpuscular HGB Conc 33.5 29.9-35.2 g/dL Red Cell Distribution Width 13.3 11.0-15.0 % Platelet Count 201 150-450 10 3/uL Mean Platelet Volume 9.9 9.5-13.5 fL Neutrophils Percent Auto 60.8 43.0-75.0 % Lymphocytes Percent Auto 28.9 20.5-60.0 % Monocytes Percent Auto 4.5 1.7-12.0 % Eosinophils Percent Auto 5.0 0.9-7.0 % Basophils Percent Auto 0.5 0.2-2.0 % Immature Granulocytes Pct Auto 0.3 0.0-0.5 % Neutrophils Absolute Auto 3.7 1.4-6.5 10 3/uL Lymphocytes Absolute Auto 1.8 1.2-3.8 10 3/uL Monocytes Absolute Auto 0.3 0.3-0.8 10 3/uL Eosinophils Absolute Auto 0.3 0.0-0.7 10 3/uL Basophils Absolute Auto 0.0 0.0-0.1 10 3/uL Immature Granulocytes Abs Auto 0.02 0.00-0.03 10 3/uL Performing Lab: see note ML - [facility] CA echo doppler complete Reviewed date:02/05/2024 03:25:25 PM Interpretation: Performing Lab: Notes/Report: Source Facility: [facility] [place] [address] Cardiology Report Signed Patient: JEB RIDDLE MR#: [id number] : 1950 Acct:[id number] Age/Sex: 73 / M ADM Date: 02/02/24 Loc: CARD Attending Dr: JESSICA FORRESTER Ordering Physician: JESSICA FORRESTER Date of Service: 02/02/24 Procedure(s): CA echo doppler complete Accession Number(s): [id number] cc: Lauren Godwin M.D.; JESSICA FORRESTER Patient Name: JEB RIDDLE MR#: [id number] : 1950 Exam Date: 02/02/2024 Ordering Doctor: DR JESSICA FORRESTER M.D. ECHOCARDIOGRAM REPORT PROCEDURE: CA ECHO DOPPLER COMPLETE INDICATIONS: Cardiomegally, Hypertensive heart disease COMPARISON: None. DESCRIPTION: COMPLETE ECHOCARDIOGRAM Real-time transthoracic echocardiography with 2D, M-mode, spectral and color flow Doppler performed. QUALITY: Technical quality was good. LEFT VENTRICLE: Normal chamber size. Thickened septal wall. Moderate concentric left ventricular hypertrophy. Global left ventricular systolic function is normal. LV EF: Visual estimation of left ventricular ejection fraction is 65-70% DIASTOLIC: Grade 2 diastolic dysfunction. ATRIAL SEPTUM: LEFT ATRIUM: Mild dilatation. RIGHT ATRIUM: Mild dilatation. RIGHT VENTRICLE: Normal chamber size. Normal right ventricular systolic function. TRICUSPID VALVE: Normal mobility and thickness. No stenosis with mild regurgitation. Moderate pulmonary hypertension. RVSP 52 mmHg MITRAL VALVE: Mildly thickened with normal mobility. No evidence of mitral valve stenosis. There is no mitral annular calcification. Trivial mitral regurgitation. AORTIC VALVE: Normal trileaflet appearance. No visible sclerosis. Normal leaflet mobility. No evidence of aortic valve stenosis. Mild to moderate aortic regurgitation. AORTIC ROOT: Mildly dilated, measuring 3.8 cm. The ascending aorta is normal diameter and appearance, measuring 3.6 cm. PULMONIC VALVE: Normal thickness and mobility. No stenosis. Trivial regurgitation. PERICARDIUM: No evidence of pericardial effusion. IVC: Collapses with inspirations. Normal size. PLEURA: CONCLUSION: 1. Mild to moderate concentric left ventricular hypertrophy with normal systolic function. LVEF is estimated at 65 to 70%. 2. Normal right ventricular size and systolic function. 3. Grade 2 diastolic dysfunction. 4. Mild to moderate aortic regurgitation. 5. Mild tricuspid regurgitation. 6. Moderately elevated right-sided pressures. RVSP is 52 mmHg. 7. Mildly dilated aortic root measuring 3.8 cm. Adult Echocardiography Procedure Report Left Ventricle LVEDD (3.7 - 5.6 cm): 4.39 cm LVESD (2.2 - 4.0 cm): 2.59 cm LVIVS thickness (0.6 - 1.2 cm): 1.84 cm LVPW thickness (0.5 - 1.0 cm): 1.22 cm e': 0.09 m/s E - e': 8.94 LVOT Max Gradient: 4.48 mm[Hg] LVOT Area (cm2): 1.06 m/s Peak Velocity (LVOT): 1.06 m/s Mean Velocity (LVOT): 0.72 m/s LVOT Diameter 2.25 cm Left Ventricular Ejection Fraction: 65-70 % Left Atrium LA Volume Index (2D A2C): 44.60 ml/m2 Left Atrium Systolic Dimension: 4.06 cm Mitral Valve MV E to A Ratio: 1.44 Mitral Valve A-Wave Peak Velocity: 0.54 m/s Mitral Valve E-Wave Peak Velocity: 0.77 m/s Right Ventricle RV Internal Diastolic Dimension: 3.00 cm Aorta AO Root Diam: 3.84 cm Ascending Ao Diam: 3.62 cm Aortic Valve AoV Area (Peak Zac): 3.76 cm2, 3.76 cm2 AoV Area (VTI): 3.40 cm2, 3.40 cm2 Deceleration Sumter: 2.09 m/s2 Pressure Half-Time: 649.89 ms Peak Velocity(Antegrade Flow): 1.11 m/s Peak Gradient(Antegrade Flow): 4.96 mm[Hg] Mean Velocity(Antegrade Flow): 0.84 m/s Mean Gradient(Antegrade Flow): 3.08 mm[Hg] Velocity Time Integral: 28.79 cm Tricuspid Valve Peak Velocity (Regurgitant Flow): 2.84 m/s, 3.51 m/s, 3.26 m/s Pulmonic Valve Mean Gradient: 1.88 mm[Hg], 2.18 mm[Hg] Mean Velocity: 0.64 m/s, 0.70 m/s Peak Velocity: 0.94 m/s Peak Gradient: 3.23 mm[Hg], 3.90 mm[Hg] Right Atrium Right Atrium Systolic Pressure: 51.13 ml, 51.13 ml Dictated by: Jessica Forrester M.D. on 02/03/2024 at 18:09 Approved by: Jessica Forrester M.D. on 02/03/2024 at 18:12 Dictated By: JESSICA FORRESTER Signed By: 02/03/241812 DD/ 11 TD/TT: Meter/Relay Craftsman: [place] [address] Cardiology Report Signed Patient: JEB RIDDLE MR#: [id number] : 1950 Acct:[id number] Age/Sex: 73 / M ADM Date: 02/02/24 Loc: CARD Attending Dr: JESSICA FORRESTER Ordering Physician: JESSICA FORRESTER Date of Service: 02/02/24 Procedure(s): CA ech o doppler complete Accession Number(s): [id number] cc: Lauren Godwin M.D. ; JESSICA FORRESTER Patient Name: JEB RIDDLE MR#: [id number] : 1950 Exam Date: 02/02/2024 Ordering Doctor: DR JESSICA FORRESTER M.D. ECHOCARDIOGRAM REPORT PROCEDURE: CA ECHO DOPPLER COMPLETE INDICATIONS: Cardiomegally, Hypertensive heart disease COMPARISON: None. DESCRIPTION: COMPLET E ECHOCARDIOGRAM Real-time transthoracic echocardiography wit h 2D, M-mode, spectral and color flow Doppler performed. QUALITY: Technical quality was good. LEFT VENTRICLE: Norm al chamber size. Thickened septal wall. Moderate concentric left ventricular hypertrophy. Global left ventricular systolic function is normal. LV EF: Visual estimation of left ventricular ejection fraction is 65-70% DIASTOLIC: Grade 2 diastolic dysfunction. ATRIAL SEPTUM: LEFT ATRIUM: Mild dilatation. RIGHT ATRIUM: Mild dilatation. RIGHT VENTRICLE: [place] mal chamber size. Normal right ventricular systolic function. TRICUSPID VALVE: [place] mal mobility and thickness. No stenosis with mild regurgitation. Moder ate pulmonary hypertension. RVSP 52 mmHg MITRAL VALVE: Mildly thickened with normal mobility. No evidence of mitral valve stenosi s. There is no mitral annular calcification. Trivial mitral regurgitation. AORTIC VALVE: Normal trileaflet appearance. No visible sclerosis. Normal leaflet mobility. No evidence of aortic valve stenosis. Mild to moderate aortic regurgitation. AORTIC ROOT: Mildly dilated, measuring 3.8 cm. The ascending aorta is normal diameter and appearance, measuring 3.6 cm. PULMONIC VALVE: Norm al thickness and mobility. No stenosis. Trivial regurgitation. PERICARDIUM: No evidence of pericardial effusion. IVC: Collapses with inspirations. Normal size. PLEURA: CONCLUSION: 1. Mild to moderate concentric left ventricular hypertrophy with normal systolic function. L VEF is estimated at 65 to 70%. 2. Normal right ventricular size and systolic function. 3. Grade 2 diastolic dysfunction. 4. Mild to moderate aortic regurgitation. 5. Mild tricuspid regurgitation. 6. Moderately elevat ed right-sided pressures. RVSP is 52 mmHg. 7. Mildly dilated aortic root measuring 3.8 cm. Adult Echocardiograp hy Procedure Report Left Ventricle LVEDD (3.7 - 5.6 cm) : 4.39 cm LVESD (2.2 - 4.0 cm) : 2.59 cm LVIVS thickness (0.6 - 1.2 cm): 1.84 cm LVPW thickness (0.5 - 1.0 cm): 1.22 cm e': 0.09 m/s E - e': 8.94 LVOT Max Gradient: 4 .48 mm[Hg] LVOT Area (cm2): 1.0 6 m/s Peak Velocity (LVOT) : 1.06 m/s Mean Velocity (LVOT) : 0.72 m/s LVOT Diameter 2.25 cm Left Ventricular Ejection Fraction: 65-70 % Left Atrium LA Volume Index (2D A2C): 44.60 ml/m2 Left Atrium Systolic Dimension: 4.06 cm Mitral Valve MV E to A Ratio: 1.44 Mitral Valve A-Wave Peak Velocity: 0.54 m/s Mitral Valve E-Wave Peak Velocity: 0.77 m/s Right Ventricle RV Internal Diastoli c Dimension: 3.00 cm Aorta AO Root Diam: 3.84 cm Ascending Ao Diam: 3 .62 cm Aortic Valve AoV Area (Peak Zac): 3.76 cm2, 3.76 cm2 AoV Area (VTI): 3.40 cm2, 3.40 cm2 Deceleration Sumter: 2.09 m/s2 Pressure Half-Time: 649.89 ms Peak Velocity(Antegr sujata Flow): 1.11 m/s Peak Gradient(Antegr sujata Flow): 4.96 mm[Hg] Mean Velocity(Antegr sujata Flow): 0.84 m/s Mean Gradient(Antegr sujata Flow): 3.08 mm[Hg] Velocity Time Integr al: 28.79 cm Tricuspid Valve Peak Velocity (Regurgitant Flow): 2.84 m/s, 3.51 m/s, 3.26 m/s Pulmonic Valve Mean Gradient: 1.88 mm[Hg], 2.18 mm[Hg] Mean Velocity: 0.64 m/s, 0.70 m/s Peak Velocity: 0.94 m/s Peak Gradient: 3.23 mm[Hg], 3.90 mm[Hg] Right Atrium Right Atrium Systoli c Pressure: 51.13 ml, 51.13 ml Dictated by: Jessica Forrester M.D. on 02/03/2024 at 18:09 Approved by: Jessica Forrester M.D. on 02/03/2024 at 18:12 Dictated By: JESSICA FORRESTER Signed By: 02/03/241812 DD/ 11 TD/TT: Meter/Relay Craftsman: LIVER PROFILE Reviewed date:03/20/2024 03:27:16 PM Interpretation: Performing Lab: Notes/Report: [facility] , Bilirubin Total 0.3 0.2-1.0 mg/dL Bilirubin Direct 0.1 0.0-0.2 mg/dL Aspartate Amino Transferase 11 15-37 U/L Alanine Aminotransferase 24 16-63 U/L Alkaline Phosphatase 64 46-116 U/L Total Protein 5.8 6.4-8.2 g/dL Albumin Level 3.0 3.4-5.0 g/dL Globulin 2.8 Albumin Globulin Ratio 1.1 Performing Lab: see note ML - [facility] LB PROF CHEM 8 (PAULETTE MOSES) Reviewed date:03/19/2024 08:10:43 PM Interpretation: Performing Lab: Notes/Report: [facility] , Sodium 134 136-145 mmol/L Potassium 4.9 3.5-5.1 mmol/L Chloride 103 98-107 mmol/L Carbon Dioxide 24.2 21.0-32.0 mmol/L Anion Gap 11.7 Glucose 107 74-106 mg/dL Blood Urea Nitrogen 37.0 7.0-18.0 mg/dL Creatinine 1.28 0.70-1.30 mg/dL Estimated GFR ( Aleyda >60 >=60 Estimated GFR (Non- Ele 55 >=60 BUN Creatinine Ratio 28.9 Calcium 8.3 8.5-10.1 mg/dL Performing Lab: see note ML - [facility] LB PTT Reviewed date:03/19/2024 08:10:43 PM Interpretation: Performing Lab: Notes/Report: [facility] , Partial Thromboplastin Time 27.1 22.3-36.2 sec Performing Lab: see note ML - [facility] Prothrombin Time INR Reviewed date:03/19/2024 08:10:43 PM Interpretation: Performing Lab: Notes/Report: [facility] , Prothrombin Time 10.9 9.0-11.6 sec INR 1.03 DESIRED INR: 2.0-3.0 CONDITIONS NOT LISTED BELOW 2.5-3.5 FOR PROSTHETIC HEART VALVE REPLACEMENT 2.5-3.5 RECURRENT THROMBOSIS Performing Lab: see note ML - [facility] Troponin I High Sensitivity Reviewed date:03/19/2024 08:10:43 PM Interpretation: Performing Lab: Notes/Report: [facility] , Troponin I High Sensitivity 5.3 4.0-76.1 pg/mL CUT-OFF POINTS HAVE BEEN ESTABLISHED BASED ON THE FOURTH UNIVERSAL DEFINITION OF MYOCARDIAL INFARCTION. THE UPPER REFERENCE LIMIT (URL) OF TROPONIN, DEFINED THE 99TH PERCENTILE OF cTnI DISTRIBUTION IN A REFERENCE POPULATION, HAS BEEN CONFIRMED THE DECISION THRESHOLD FOR CT DIAGNOSIS. 99TH PERCENTILE = 76.2 PG/ML NOTE: HIGH-SENSITIVITY TROPONIN ASSAY IS NOT INTENDED TO BE USED IN ISOLATION BUT SHOULD BE INTERPRETED IN CONJUNCTION WITH OTHER DIAGNOSTIC AND CLINICAL INFORMATION. Performing Lab: see note ML - [facility] LB ECG 12 lead Reviewed date:03/20/2024 03:27:16 PM Interpretation: Performing Lab: Notes/Report: Source Facility: [facility]-[address] [place] [address] [place] [address] Electrocardiograph Report Signed Patient: JEB RIDDLE MR#: [id number] : 1950 Acct:[id number] Age/Sex: 73 / M ADM Date: 03/19/24 Loc: ICU 275-[address]: Lauren Godwin M.D. 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 Signed By: 03/20/24 0639 DD/ 1625 TD/TT: Meter/Relay Craftsman: [place] [address] Electrocardiograph Report Signed Patient: JEB RIDDLE MR#: [id number] : 1950 Acct:[id number] Age/Sex: 73 / M ADM Date: 03/19/24 Loc: ICU 275-[address]: Yasmin Godwin M.D. 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 Signed By: 03/20/24 0639 DD/ 1625 TD/TT: Meter/Relay Craftsman: Troponin I High Sensitivity Reviewed date:03/20/2024 03:27:16 PM Interpretation: Performing Lab: Notes/Report: [facility] , Troponin I High Sensitivity 8.2 4.0-76.1 pg/mL CUT-OFF POINTS HAVE BEEN ESTABLISHED BASED ON THE FOURTH UNIVERSAL DEFINITION OF MYOCARDIAL INFARCTION. THE UPPER REFERENCE LIMIT (URL) OF TROPONIN, DEFINED THE 99TH PERCENTILE OF cTnI DISTRIBUTION IN A REFERENCE POPULATION, HAS BEEN CONFIRMED THE DECISION THRESHOLD FOR CT DIAGNOSIS. 99TH PERCENTILE = 76.2 PG/ML NOTE: HIGH-SENSITIVITY TROPONIN ASSAY IS NOT INTENDED TO BE USED IN ISOLATION BUT SHOULD BE INTERPRETED IN CONJUNCTION WITH OTHER DIAGNOSTIC AND CLINICAL INFORMATION. Performing Lab: see note ML - [facility] LB BNP Reviewed date:03/20/2024 03:27:16 PM Interpretation: Performing Lab: Notes/Report: [facility] , NT Pro B Type Natriuretic Pept 303.0 <=900.0 pg/mL Performing Lab: see note ML - [facility] LB CBC AUTO DIFF Reviewed date:03/20/2024 03:27:16 PM Interpretation: Performing Lab: Notes/Report: [facility] , White Blood Count 5.6 4.0-11.0 10 3/uL Red Blood Count 3.70 4.70-6.10 10 6/uL Hemoglobin 12.0 14.0-18.0 g/dL Hematocrit 34.7 42.0-54.0 % Mean Corpuscular Volume 93.8 80.0-94.0 fL Mean Corpuscular Hemoglobin 32.4 25.9-34.0 pg Mean Corpuscular HGB Conc 34.6 29.9-35.2 g/dL Red Cell Distribution Width 12.2 11.0-15.0 % Platelet Count 181 150-450 10 3/uL Mean Platelet Volume 10.4 9.5-13.5 fL Neutrophils Percent Auto 56.7 43.0-75.0 % Lymphocytes Percent Auto 32.3 20.5-60.0 % Monocytes Percent Auto 6.3 1.7-12.0 % Eosinophils Percent Auto 4.1 0.9-7.0 % Basophils Percent Auto 0.4 0.2-2.0 % Immature Granulocytes Pct Auto 0.2 0.0-0.5 % Neutrophils Absolute Auto 3.2 1.4-6.5 10 3/uL Lymphocytes Absolute Auto 1.8 1.2-3.8 10 3/uL Monocytes Absolute Auto 0.4 0.3-0.8 10 3/uL Eosinophils Absolute Auto 0.2 0.0-0.7 10 3/uL Basophils Absolute Auto 0.0 0.0-0.1 10 3/uL Immature Granulocytes Abs Auto 0.01 0.00-0.03 10 3/uL Performing Lab: see note ML - [facility] LB MAGNESIUM Reviewed date:03/20/2024 03:27:16 PM Interpretation: Performing Lab: Notes/Report: [facility] , Magnesium 1.5 1.8-2.4 mg/dL Performing Lab: see note ML - [facility] LB PROF 14(COMP METB) Reviewed date:03/20/2024 03:27:16 PM Interpretation: Performing Lab: Notes/Report: [facility] , Sodium 140 136-145 mmol/L Potassium 4.3 3.5-5.1 mmol/L Chloride 108 98-107 mmol/L Carbon Dioxide 21.8 21.0-32.0 mmol/L Anion Gap 14.5 Glucose 106 74-106 mg/dL Blood Urea Nitrogen 35.0 7.0-18.0 mg/dL Creatinine 1.16 0.70-1.30 mg/dL Estimated GFR ( Aleyda >60 >=60 Estimated GFR (Non- Ele >60 >=60 BUN Creatinine Ratio 30.2 Calcium 8.5 8.5-10.1 mg/dL Bilirubin Total 0.4 0.2-1.0 mg/dL Aspartate Amino Transferase 17 15-37 U/L Alanine Aminotransferase 26 16-63 U/L Alkaline Phosphatase 64 46-116 U/L Total Protein 5.8 6.4-8.2 g/dL Albumin Level 3.1 3.4-5.0 g/dL Globulin 2.7 Albumin Globulin Ratio 1.1 Performing Lab: see note ML - [facility] PTT HEPARIN MONITOR Reviewed date:03/20/2024 03:27:16 PM Interpretation: Performing Lab: Notes/Report: [facility] , PTT Heparin Monitor 82.8 48.2-68.6 sec RESULTS CALLED TO TEQUILA COYNE RN @BY Brandy Love at 0306 Performing Lab: see note ML - [facility] LB T4 Reviewed date:03/20/2024 03:27:16 PM Interpretation: Performing Lab: Notes/Report: [facility] , T4 Thyroxine 5.50 4.50-12.10 ug/dL Performing Lab: see note ML - [facility] TSH Reviewed date:03/20/2024 03:27:16 PM Interpretation: Performing Lab: Notes/Report: [facility] , Thyroid Stimulating Hormone 3.249 0.358-3.740 uIU/mL Performing Lab: see note ML - [facility] Troponin I High Sensitivity Reviewed date:03/20/2024 03:27:16 PM Interpretation: Performing Lab: Notes/Report: [facility] , Troponin I High Sensitivity 8.9 4.0-76.1 pg/mL CUT-OFF POINTS HAVE BEEN ESTABLISHED BASED ON THE FOURTH UNIVERSAL DEFINITION OF MYOCARDIAL INFARCTION. THE UPPER REFERENCE LIMIT (URL) OF TROPONIN, DEFINED THE 99TH PERCENTILE OF cTnI DISTRIBUTION IN A REFERENCE POPULATION, HAS BEEN CONFIRMED THE DECISION THRESHOLD FOR CT DIAGNOSIS. 99TH PERCENTILE = 76.2 PG/ML NOTE: HIGH-SENSITIVITY TROPONIN ASSAY IS NOT INTENDED TO BE USED IN ISOLATION BUT SHOULD BE INTERPRETED IN CONJUNCTION WITH OTHER DIAGNOSTIC AND CLINICAL INFORMATION. Performing Lab: see note ML - [facility] LB FIBRINOGEN Reviewed date:04/12/2024 04:27:00 PM Interpretation: Performing Lab: Notes/Report: [facility] , Fibrinogen 401 200-400 mg/dL Performing Lab: see note ML - [facility] LB LAB TESTING Reviewed date:04/16/2024 12:00:10 PM Interpretation: Performing Lab: Notes/Report: [id number] von Willebrand Factor (vWF) Profile [facility] , Miscellaneous Test COMMENT . Test Ordered: [id number] von Willebrand Profile Factor VIII Activity 102 % BN Reference Range: 56-140 von Willebrand Factor (vWF) Ag 122 % BN Reference Range: 50-200 This test was developed and its performance characteristics determined by [facility]. It has not been cleared or approved by the Food and Drug Administration. vWF Activity 100 % BN Reference Range: 50-200 Interpretation Note [facility]IT[facility] Reference Range: . --- COAGULATION: VON WILLEBRAND FACTOR ASSESSMENT CURRENT RESULTS ASSESSMENT The VWF:Ag is normal. The VWF:RCo is normal. The FVIII is normal. VON WILLEBRAND FACTOR ASSESSMENT CURRENT RESULTS INTERPRETATION - These results are not consistent with a diagnosis of VWD according to the current NHLBI guideline. VON WILLEBRAND FACTOR ASSESSMENT - Results may be falsely elevated and possibly falsely normal as VWF and FVIII may increase in samples drawn from patients (particularly children) who are visibly stressed at the time of phlebotomy, as acute phase reactants, or in response to certain drug therapies such as desmopressin. Repeat testing may be necessary before excluding a diagnosis of VWD especially if the clinical suspicion is high for an underlying bleeding disorder. The setting for phlebotomy should be as calm as possible and patients should be encouraged to sit quietly prior to the blood draw. VON WILLEBRAND FACTOR ASSESSMENT DEFINITIONS - VWD - von Willebrand disease; VWF - von Willebrand factor; VWF:Ag - VWF antigen; VWF:RCo - VWF ristocetin cofactor activity; FVIII - factor VIII activity. CARD CUTTER HELPER: For questions regarding panel interpretation, please contact Shaq Sandoval M.D. at [employer] [facility] at . --- DISCLAIMER These assessments and interpretations are provided as a convenience in support of the physician-patient relationship and are not intended to replace the physician's clinical judgment. They are derived from national guidelines in addition to other evidence and expert opinion. The clinician should consider this information within the context of clinical opinion and the individual patient. SEE GUIDANCE FOR VON WILLEBRAND FACTOR ASSESSMENT: (1) The National Heart, Lung and Blood [place]. The Diagnosis, Evaluation and Management of von Willebrand Disease. [place], [place]: National Institutes of Health Publication 08-5832. 2006. Available at http://www.nhlbi.nih.gov/mehdi delines/vwd/. (2) Maurice MUNSON et al. Am J Hematol. 2009; 84(6):366-370. (3) Patria M et al. Haemophilia. 2004;10(3):199-217. (4) New SHEPHERD et al. Haemophilia. 2004; 10(3):218-231. Performed at: [address] [id number] Postdoctoral Scientist: Erin Ellison MD, Phone: [phone] Performed at: [facility] Clinical / Digital [address] [place] [id number] Postdoctoral Scientist: Marry Kee MD, Phone: [phone] Performed at: [address] [id number] Postdoctoral Scientist: Greg Renee PhD, Phone: [phone] Performing Lab: see note [facility] LB Protein C-Functional Reviewed date:04/16/2024 12:00:10 PM Interpretation: Performing Lab: Notes/Report: [facility] , Protein C-Functional 120 73-180 % Performed at: [address] [id number] Postdoctoral Scientist: Erin Ellison MD, Phone: [phone] Performing Lab: see note [facility] LB Protein S-Functional Reviewed date:04/16/2024 12:00:10 PM Interpretation: Performing Lab: Notes/Report: [facility] , Protein S-Functional 95 63-140 % Protein S activity may be falsely increased (masking an abnormal, low result) in patients receiving direct Xa inhibitor (e.g., rivaroxaban, apixaban, edoxaban) or a direct thrombin inhibitor (e.g., dabigatran) anticoagulant treatment due to assay interference by these drugs. Performing Lab: see note [facility] Mariana KOVACS Factor II, DNA Analysis Reviewed date:04/17/2024 08:57:28 PM Interpretation: Performing Lab: Notes/Report: Mariana , Factor II, DNA Analysis Comment . Result: c.*97G>A - Not Detected This result is not associated with an increased risk for venous thromboembolism. See Additional Clinical Information and Comments. Additional Clinical Information: Venous thromboembolism is a multifactorial disease influenced by genetic, environmental, and circumstantial risk factors. The c.*97G>A variant in the F2 gene is a genetic risk factor for venous thromboembolism. Heterozygous carriers have a 2- to 4-fold increased risk for venous thromboembolism. Homozygotes for the c.*97G>A variant are rare. The annual risk of VTE in homozygotes has been reported to be 1.1%/year. Individuals who carry both a c.*97G>A variant in the F2 gene and a c.1601G>A (p. Vyk600Ygh) variant in the F5 gene (commonly referred to as Factor V Leiden) have an approximately 20- fold increased risk for venous thromboembolism. Risks are likely to be even higher in more complex genotype combinations involving the F2 c.*97G>A variant and Factor V Leiden (PMID: 33545413). Additional risk factors include but are not limited to: deficiency of protein C, protein S, or antithrombin III, age, male sex, personal or family history of deep vein thromboembolism, smoking, surgery, prolonged immobilization, malignant neoplasm, tamoxifen treatment, raloxifene treatment, oral contraceptive use, hormone replacement therapy, and . Management of thrombotic risk and thrombotic events should follow established guidelines and fit the clinical circumstance. This result cannot predict the occurrence or recurrence of a thrombotic event. Comments: Genetic counseling is recommended to discuss the potential clinical implications of positive results, as well as recommendations for testing family members. Genetic Coordinators are available for health care providers to discuss results at [phone] Test Details: Variant analyzed: c.*97G>A, previously referred to as F29255G Methods/Limitations: DNA analysis of the F2 gene (NM_000506.5) was performed by PCR amplification followed by restriction enzyme analysis. The diagnostic sensitivity is >99%. Results must be combined with clinical information for the most accurate interpretation. Molecular-based testing is highly accurate, but as in any laboratory test, diagnostic errors may occur. False positive or false negative results may occur for reasons that include genetic variants, blood transfusions, bone marrow transplantation, somatic or tissue-specific mosaicism, mislabeled samples, or erroneous representation of family relationships. This test was developed and its performance characteristics determined by [employer]. It has not been cleared or approved by the Food and Drug Administration. References: Drea Rios, Alma Delia ZAVALA, Rojas R, Brody WW, Oren JH; A[employer] Professional Practice and Guidelines Committee. Addendum: [employer] consensus statement on factor V Leiden mutation testing. Erica Med. 2020Oct 17. doi: 10.1038/u48140-993-36755-k. PMID: 23556467. Franc RAMÍREZ. Prothrombin Thrombophilia. 2005Mar 08 [Updated 2020Sep 18]. In: Jovany MP, Alexis HH, Santhosh RA, et al., editors. Lalit(R) [Internet]. [place] ([place]): Formerly [facility]; 7288-2227. Available from: https://www.ncbi.nlm.nih.gov /books/RMI7247/ Diego Rios, Alma Delia ZAVALA, Jamari X, Glen B, Effie EB, Ibeth P, Ryan CS; [employer] Laboratory Business Development Sales Executive Committee. Venous thromboembolism laboratory testing (factor V Leiden and factor II c.*97G>A), 2018 update: a technical standard of the [employer] and Genomics (ACMG). Erica Med. 2018 Jul;20(12):6061-9398. doi: 10.1038/n12768-768-6621-p. Epub 2017May 19. PMID: 53115963. Reviewed By Comment . Brown Dickinson, PhD [facility] Performed at: [facility] [address] [address] [facility], [facility], [place] [id number] Postdoctoral Scientist: Leela Cantrell Former[facility], Phone: [phone] Performing Lab: see note - [facility] LB Lupus Anticoagulant Reflex Reviewed date:04/16/2024 12:00:10 PM Interpretation: Performing Lab: Notes/Report: Mariana , PTT-LA 32.6 0.0-43.5 sec dRVVT 49.0 0.0-47.0 sec dRVVT Mix 42.8 0.0-40.4 sec dRVVT Confirm 0.9 0.8-1.2 ratio Lupus Reflex Interpretation Comment: . No lupus anticoagulant was detected. These results are consistent with specific inhibitors to one or more common pathway factors (X, V, II or fibrinogen). Performed at: [address] [id number] Postdoctoral Scientist: Erin Ellison MD, Phone: [phone] Performing Lab: see note [facility] LB Antithrombin Activity Reviewed date:04/16/2024 12:00:10 PM Interpretation: Performing Lab: Notes/Report: [facility] , Antithrombin Activity 119 75-135 % Direct Xa inhibitor anticoagulants such as rivaroxaban, apixaban and edoxaban will lead to spuriously elevated antithrombin activity levels possibly masking a deficiency. Performing Lab: see note [facility] LB LAB TESTING Reviewed date:04/16/2024 12:00:10 PM Interpretation: Performing Lab: Notes/Report: [id number] Plasminogen Activity [facility] , Miscellaneous Test COMMENT . Test Ordered: [id number] Plasminogen Activity Plasminogen 127 % Reference Range: 70-150 Performed at: [address] [id number] Postdoctoral Scientist: Erin Ellison MD, Phone: [phone] Performed at: [address] [id number] Postdoctoral Scientist: Greg Renee PhD, Phone: [phone] Performing Lab: see note [facility] XR acute abdomen series Reviewed date:08/31/2024 09:11:51 AM Interpretation: Performing Lab: Notes/Report: Source Facility: [facility] [place] [address] [place] [address] XRay Report Signed Patient: JEB RIDDLE MR#: [id number] : 1950 Acct:[id number] Age/Sex: 73 / M ADM Date: 08/30/24 Loc: ER Attending Dr: Ordering Physician: Warner Maradiaga Date of Service: 08/30/24 Procedure(s): XR acute abdomen series Accession Number(s): [id number] cc: Lauren Godwin M.D.; Warner Maradiaga [place] [id number] Patient Name: JEB RIDDLE MRN: [id number] date: 1950 Sex: M Assigned Patient Location: ER Current Patient Location: ER Accession/Order Number: [id number] Exam Date: 08/30/2024 21:10 Report Date: 08/30/2024 22:39 At the request of: WARNER MARADIAGA Procedure: XR acute abdomen series EXAMINATION: XR acute abdomen series HISTORY: concern for SBO ; abdominal pain ; history of Crohn's disease COMPARISON: XR acute abdomen series 11/01/2023 FINDINGS: LUNGS: Mild opacity and trace stranding within left lateral costophrenic angle. MEDIASTINUM: No abnormal widening. BOWEL GAS PATTERN: A few fluid-filled mildly distended loops of small bowel within left upper quadrant. Moderate amount of stool throughout the colon. Right upper quadrant calcifications which may be within diverticula. FREE AIR: None. CALCIFICATIONS: None significant. BONES: No fracture or visible bone lesion. OTHER: Negative. XR/XR acute abdomen series IMPRESSION: 1. Trace amount of lingular infiltrates versus atelectasis. 2. Suspect mild enteritis or mild flareup of Crohn's disease. No bowel obstruction or ileus. Electronically authenticated by: LILIANA GONZALEZ Date: 08/30/2024 22:39 Dictated By: Liliana Gonzalez M.D. Signed By: 08/30/242240 DD/ 38 TD/TT: Meter/Relay Craftsman: [place] [address] XRay Report Signed Patient: JEB RIDDLE MR#: [id number] : 1950 Acct:[id number] Age/Sex: 73 / M ADM Date: 08/30/24 Loc: ER Attending Dr: Ordering Physician: Warner Maradiaga Date of Service: 08/30/24 Procedure(s): XR acu te abdomen series Accession Number(s): [id number] cc: Lauren Godwin M.D. ; Warner Maradiaga [place] [id number] Patient Name: JEB RIDDLE MRN: [id number] date: 1950 Sex: M Assigned Patient Location: ER Current Patient Location: ER Accession/Order Numb er: [id number] Exam Date: 08/30/2024 21:10 Report Date: 08/30/2024 22:39 At the request of: WARNER MARADIAGA Procedure: XR acute abdomen series EXAMINATION: XR acut e abdomen series HISTORY: concern for SBO ; abdominal pain ; history of Crohn's disease COMPARISON: XR acute abdomen series 11/01/2023 FINDINGS: LUNGS: Mild opacity and trace stranding within left lateral costophrenic angle. MEDIASTINUM: No abnormal widening. BOWEL GAS PATTERN: A few fluid-filled mildly distended loops of small bowel within left upper quadrant. Moderate amount of stool throughout the colon. Right upper quadrant calcifications which may be within diverticula. FREE AIR: None. CALCIFICATIONS: None significant. BONES: No fracture o r visible bone lesion. OTHER: Negative. XR/XR acute abdomen series IMPRESSION: 1. Trace amount of lingular infiltrates versus atelectasis. 2. Suspect mild enteritis or mild flareup of Crohn's disease. No bowel obstruction or ileus. Electronically authenticated by: LILIANA GONZALEZ Date: 08/30/2024 22:39 Dictated By: Liliana Gonzalez M.D. Signed By: 08/30/242240 DD/ 38 TD/TT: Meter/Relay Craftsman: PROF OLGA May ([facility]) Reviewed date:08/31/2024 09:11:51 AM Interpretation: Performing Lab: Notes/Report: The [facility] , Sodium 143 136-145 mmol/L Potassium 5.1 3.5-5.1 mmol/L Chloride 110 98-107 mmol/L Carbon Dioxide 22.9 21.0-32.0 mmol/L Anion Gap 15.2 Glucose 163 74-106 mg/dL Blood Urea Nitrogen 32.0 7.0-18.0 mg/dL Creatinine 1.33 0.70-1.30 mg/dL Estimated GFR ( Aleyda >60 >=60 mL/min/1.73m 2 Estimated GFR (Non- Ele 53 >=60 mL/min/1.73m 2 BUN Creatinine Ratio 24.1 Calcium 8.3 8.5-10.1 mg/dL Performing Lab: see note - [facility] Troponin I High Sensitivity Reviewed date:09/02/2024 02:45:21 PM Interpretation: Performing Lab: Notes/Report: The [facility] , Troponin I High Sensitivity 20.9 4.0-76.1 pg/mL CUT-OFF POINTS HAVE BEEN ESTABLISHED BASED ON THE FOURTH UNIVERSAL DEFINITION OF MYOCARDIAL INFARCTION. THE UPPER REFERENCE LIMIT (URL) OF TROPONIN, DEFINED THE 99TH PERCENTILE OF cTnI DISTRIBUTION IN A REFERENCE POPULATION, HAS BEEN CONFIRMED THE DECISION THRESHOLD FOR CT DIAGNOSIS. 99TH PERCENTILE = 76.2 PG/ML NOTE: HIGH-SENSITIVITY TROPONIN ASSAY IS NOT INTENDED TO BE USED IN ISOLATION BUT SHOULD BE INTERPRETED IN CONJUNCTION WITH OTHER DIAGNOSTIC AND CLINICAL INFORMATION. Performing Lab: see note - [facility] LB ECG 12 lead Reviewed date:09/02/2024 02:45:20 PM Interpretation: Performing Lab: Notes/Report: Source Facility: [facility] [place] [address] [place] [address] Electrocardiograph Report Signed Patient: JEB RIDDLE MR#: [id number] : 1950 Acct:[id number] Age/Sex: 73 / M ADM Date: 08/31/24 Loc: ICU 270-[address]: Lauren Godwin M.D. Ordering Physician: Lauren Godwin M.D. 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 Signed By: <Electronically signed by Lauren Godwin M.D.> 09/01/24622 DD/ 151 TD/TT: Meter/Relay Craftsman: [place] [address] Electrocardiograph Report Signed Patient: JEB RIDDLE MR#: [id number] : 1950 Acct:[id number] Age/Sex: 73 / M ADM Date: 08/31/24 Loc: ICU 270- Attending Dr: Yasmin Godwin M.D. Ordering Physician: Lauren Godwin M.D. 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 Signed By: <Electronically signed by Lauren Godwin M.D.> 09/01/24622 DD/ 151 TD/TT: Meter/Relay Craftsman: PROF OLGA May ([facility]) Reviewed date:09/02/2024 02:45:21 PM Interpretation: Performing Lab: Notes/Report: The [facility] , Sodium 143 136-145 mmol/L Potassium 4.5 3.5-5.1 mmol/L Chloride 108 98-107 mmol/L Carbon Dioxide 19.9 21.0-32.0 mmol/L Anion Gap 19.6 Glucose 160 74-106 mg/dL Blood Urea Nitrogen 31.0 7.0-18.0 mg/dL Creatinine 1.44 0.70-1.30 mg/dL Estimated GFR ( Aleyda 58 >=60 mL/min/1.73m 2 Estimated GFR (Non- Ele 48 >=60 mL/min/1.73m 2 BUN Creatinine Ratio 21.5 Calcium 9.1 8.5-10.1 mg/dL Performing Lab: see note ML - The [facility] LB Troponin I High Sensitivity Reviewed date:09/02/2024 02:45:21 PM Interpretation: Performing Lab: Notes/Report: The [facility] , Troponin I High Sensitivity 238.9 4.0-76.1 pg/mL RESULTS CALLED TO ICU Doug Howard RN @BY Nicholas Amezquita MT at 2251 CUT-OFF POINTS HAVE BEEN ESTABLISHED BASED ON THE FOURTH UNIVERSAL DEFINITION OF MYOCARDIAL INFARCTION. THE UPPER REFERENCE LIMIT (URL) OF TROPONIN, DEFINED THE 99TH PERCENTILE OF cTnI DISTRIBUTION IN A REFERENCE POPULATION, HAS BEEN CONFIRMED THE DECISION THRESHOLD FOR CT DIAGNOSIS. 99TH PERCENTILE = 76.2 PG/ML NOTE: HIGH-SENSITIVITY TROPONIN ASSAY IS NOT INTENDED TO BE USED IN ISOLATION BUT SHOULD BE INTERPRETED IN CONJUNCTION WITH OTHER DIAGNOSTIC AND CLINICAL INFORMATION. Performing Lab: see note ML - The [facility] LB ECG 12 lead Reviewed date:09/03/2024 07:13:00 PM Interpretation: Performing Lab: Notes/Report: Source Facility: [place] [address] [place] [address] Electrocardiograph Report Signed Patient: JEB RIDDLE MR#: [id number] : 1950 Acct:[id number] Age/Sex: 73 / M ADM Date: 08/31/24 Loc: MS 221-[address]: Lauren Godwin M.D. 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 Signed By: 09/03/241742 DD/ 05 TD/TT: Meter/Relay Craftsman: [place] [address] Electrocardiograph Report Signed Patient: JEB RIDDLE MR#: [id number] : 1950 Acct:[id number] Age/Sex: 73 / M ADM Date: 08/31/24 Loc: [place] 221-[address]: Yasmin Godwin M.D. 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 Signed By: 09/03/241742 DD/ 05 TD/TT: Meter/Relay Craftsman: CBC AUTO DIFF Reviewed date:09/02/2024 02:45:20 PM Interpretation: Performing Lab: Notes/Report: The [facility] , White Blood Count 13.1 4.0-11.0 10 3/uL Red Blood Count 3.81 4.70-6.10 10 6/uL Hemoglobin 12.4 14.0-18.0 g/dL Hematocrit 35.8 42.0-54.0 % Mean Corpuscular Volume 94.0 80.0-94.0 fL Mean Corpuscular Hemoglobin 32.5 25.9-34.0 pg Mean Corpuscular HGB Conc 34.6 29.9-35.2 g/dL Red Cell Distribution Width 13.1 11.0-15.0 % Platelet Count 272 150-450 10 3/uL Mean Platelet Volume 10.1 9.5-13.5 fL Neutrophils Percent Auto 89.0 43.0-75.0 % Lymphocytes Percent Auto 8.5 20.5-60.0 % Monocytes Percent Auto 1.9 1.7-12.0 % Eosinophils Percent Auto 0.0 0.9-7.0 % Basophils Percent Auto 0.0 0.2-2.0 % Immature Granulocytes Pct Auto 0.6 0.0-0.5 % Neutrophils Absolute Auto 11.7 1.4-6.5 10 3/uL Lymphocytes Absolute Auto 1.1 1.2-3.8 10 3/uL Monocytes Absolute Auto 0.3 0.3-0.8 10 3/uL Eosinophils Absolute Auto 0.0 0.0-0.7 10 3/uL Basophils Absolute Auto 0.0 0.0-0.1 10 3/uL Immature Granulocytes Abs Auto 0.08 0.00-0.03 10 3/uL Performing Lab: see note ML - The [facility] LB PROF CHEM 8 (BAS METB) Reviewed date:09/02/2024 02:45:20 PM Interpretation: Performing Lab: Notes/Report: The [facility] , Sodium 140 136-145 mmol/L Potassium 4.7 3.5-5.1 mmol/L Chloride 108 98-107 mmol/L Carbon Dioxide 20.4 21.0-32.0 mmol/L Anion Gap 16.3 Glucose 151 74-106 mg/dL Blood Urea Nitrogen 27.0 7.0-18.0 mg/dL Creatinine 1.27 0.70-1.30 mg/dL Estimated GFR ( Aleyda >60 >=60 mL/min/1.73m 2 Estimated GFR (Non- Ele 55 >=60 mL/min/1.73m 2 BUN Creatinine Ratio 21.3 Calcium 8.6 8.5-10.1 mg/dL Performing Lab: see note ML - The [facility] LB Troponin I High Sensitivity Reviewed date:09/02/2024 02:45:20 PM Interpretation: Performing Lab: Notes/Report: The [facility] , Troponin I High Sensitivity 599.4 4.0-76.1 pg/mL RESULTS CALLED TO ICU Tequila Coyne RN @BY Nicholas Amezquita MT at 0629 CUT-OFF POINTS HAVE BEEN ESTABLISHED BASED ON THE FOURTH UNIVERSAL DEFINITION OF MYOCARDIAL INFARCTION. THE UPPER REFERENCE LIMIT (URL) OF TROPONIN, DEFINED THE 99TH PERCENTILE OF cTnI DISTRIBUTION IN A REFERENCE POPULATION, HAS BEEN CONFIRMED THE DECISION THRESHOLD FOR CT DIAGNOSIS. 99TH PERCENTILE = 76.2 PG/ML NOTE: HIGH-SENSITIVITY TROPONIN ASSAY IS NOT INTENDED TO BE USED IN ISOLATION BUT SHOULD BE INTERPRETED IN CONJUNCTION WITH OTHER DIAGNOSTIC AND CLINICAL INFORMATION. Performing Lab: see note ML - The [facility] LB CT stroke head/brain wo con Reviewed date:09/02/2024 02:45:20 PM Interpretation: Performing Lab: Notes/Report: Source Facility: [place] [address] [place] [address] CT Scan Report Signed Patient: JEB RIDDLE MR#: [id number] : 1950 Acct:[id number] Age/Sex: 73 / M ADM Date: 08/31/24 Loc: ICU 270-[address]: Lauren Godwin M.D. Ordering Physician: Namita Hendrix NP Date of Service: 09/01/24 Procedure(s): CT stroke head/brain wo con Accession Number(s): [id number] cc: Lauren Godwin M.D. [place] [address] Patient Name: JEB RIDDLE MRN: [facility]:[id number] date: 1950 Sex: M Assigned Patient Location: ICU Current Patient Location: ICU Accession/Order Number: [id number] Exam Date: 09/01/2024 01:00 Report Date: 09/01/2024 01:27 At the request of: NAMITA HENDRIX Procedure: CT stroke head/brain wo con EXAM: CT stroke head/brain wo con INDICATION: 73 years old; Male. Change in mental status. TECHNIQUE: CT Head (ax/cor/sag reformats). Ionizing radiation dose reduced via iterative reconstruction/FBP blend and body size kV/mA adjustment. Comparison: CT dated 12/02/2023. FINDINGS: POSTOPERATIVE CHANGES: None. BRAIN PARENCHYMA: No intraparenchymal or extra-axial hemorrhage. No mass effect. No midline shift or herniation. Patchy and confluent low-density seen in the right ventricular and subcortical white matter without mass effect. VENTRICLES/EXTRA-AXIAL SPACES: Normal for patient's age. SINUSES/MASTOIDS: The visualized sinuses are clear although the paranasal sinuses are not completely included. Mastoids and middle ears are clear. MSK: No displaced or depressed calvarial fracture. OTHER: No hyperdense intraluminal thrombus. Vascular calcifications are present. CT/CT stroke head/brain wo con IMPRESSION: 1. No acute intracranial abnormality. No hemorrhage or mass effect. 2. Nonspecific white matter changes. 3. Vascular calcifications. If there is concern for acute infarction, then MRI including diffusion imaging would be more sensitive. A note was placed in the stat folder for notification the provider at 1:23 AM on 09/01/2024. Electronically authenticated by: DESTINI CRAMER Date: 09/01/2024 01:27 Dictated By: Destini Cramer M.D. Signed By: 09/01/24 0130 DD/ 0127 TD/TT: Meter/Relay Craftsman: [place] [address] CT Scan Report Signed Patient: JEB RIDDLE MR#: [id number] : 1950 Acct:[id number] Age/Sex: 73 / M ADM Date: 08/31/24 Loc: ICU 270-[address]: Yasmin Godwin M.D. Ordering Physician: Namita Hendrix NP Date of Service: 09/01/24 Procedure(s): CT str nadja head/brain wo con Accession Number(s): [id number] cc: Lauren Godwin M.D. [address] [address] Patient Name: JEB RIDDLE MRN: [facility]:[id number] date: 1950 Sex: M Assigned Patient Location: ICU Current Patient Location: ICU Accession/Order Numb er: [id number] Exam Date: 09/01/2024 01:00 Report Date: 09/01/2024 01:27 At the request of: NAMITA HENDRIX Procedure: CT stroke head/brain wo con EXAM: CT stroke head/brain wo con INDICATION: 73 years old; Male. Change in mental status. TECHNIQUE: CT Head (ax/cor/sag reformats). Ionizing radiation dose reduced via iterative reconstruction/FBP blend and body size kV/mA adjustment. Comparison: CT dated 12/02/2023. FINDINGS: POSTOPERATIVE CHANGE S: None. BRAIN PARENCHYMA: No intraparenchymal or extra-axial hemorrhage. No mass effect. No midline shift or herniation. Patchy and confluent low-density seen in the right ventricular and subcortical white matter without mass effect. VENTRICLES/EXTRA-AXI AL SPACES: Normal for patient's age. SINUSES/MASTOIDS: Th e visualized sinuses are clear although the paranasal sinuses are not completely included. Mastoids and middle ears are clear. MSK: No displaced or depressed calvarial fracture. OTHER: No hyperdense intraluminal thrombus. Vascular calcifications are present. CT/CT stroke head/brain wo con IMPRESSION: 1. No acute intracranial abnormality. No hemorrhage or mass effect. 2. Nonspecific white matter changes. 3. Vascular calcifications. If there is concern for acute infarction, then MRI including diffusion imaging would be more sensitive. A note was placed in the stat folder for notification the provider at 1:23 AM on 09/01/2024. Electronically authenticated by: DESTINI CRAMER Date: 09/01/2024 01:27 Dictated By: Destini Cramer M.D. Signed By: 09/01/24 0130 DD/ 0127 TD/TT: Meter/Relay Craftsman: Troponin I High Sensitivity Reviewed date:09/02/2024 02:45:20 PM Interpretation: Performing Lab: Notes/Report: The [facility] , Troponin I High Sensitivity 559.3 4.0-76.1 pg/mL RESULTS CALLED TO EUGENIO CYR RN AT 1319 CUT-OFF POINTS HAVE BEEN ESTABLISHED BASED ON THE FOURTH UNIVERSAL DEFINITION OF MYOCARDIAL INFARCTION. THE UPPER REFERENCE LIMIT (URL) OF TROPONIN, DEFINED THE 99TH PERCENTILE OF cTnI DISTRIBUTION IN A REFERENCE POPULATION, HAS BEEN CONFIRMED THE DECISION THRESHOLD FOR CT DIAGNOSIS. 99TH PERCENTILE = 76.2 PG/ML NOTE: HIGH-SENSITIVITY TROPONIN ASSAY IS NOT INTENDED TO BE USED IN ISOLATION BUT SHOULD BE INTERPRETED IN CONJUNCTION WITH OTHER DIAGNOSTIC AND CLINICAL INFORMATION. Performing Lab: see note ML - The [facility] LB CBC AUTO DIFF Reviewed date:09/02/2024 02:45:20 PM Interpretation: Performing Lab: Notes/Report: [facility] , White Blood Count 9.1 4.0-11.0 10 3/uL Red Blood Count 3.73 4.70-6.10 10 6/uL Hemoglobin 11.7 14.0-18.0 g/dL Hematocrit 35.3 42.0-54.0 % Mean Corpuscular Volume 94.6 80.0-94.0 fL Mean Corpuscular Hemoglobin 31.4 25.9-34.0 pg Mean Corpuscular HGB Conc 33.1 29.9-35.2 g/dL Red Cell Distribution Width 13.0 11.0-15.0 % Platelet Count 197 150-450 10 3/uL Mean Platelet Volume 10.0 9.5-13.5 fL Neutrophils Percent Auto 77.9 43.0-75.0 % Lymphocytes Percent Auto 17.8 20.5-60.0 % Monocytes Percent Auto 3.7 1.7-12.0 % Eosinophils Percent Auto 0.2 0.9-7.0 % Basophils Percent Auto 0.0 0.2-2.0 % Immature Granulocytes Pct Auto 0.4 0.0-0.5 % Neutrophils Absolute Auto 7.1 1.4-6.5 10 3/uL Lymphocytes Absolute Auto 1.6 1.2-3.8 10 3/uL Monocytes Absolute Auto 0.3 0.3-0.8 10 3/uL Eosinophils Absolute Auto 0.0 0.0-0.7 10 3/uL Basophils Absolute Auto 0.0 0.0-0.1 10 3/uL Immature Granulocytes Abs Auto 0.04 0.00-0.03 10 3/uL Performing Lab: see note ML - [facility] PROF CHEM 8 (BAS METB) Reviewed date:09/02/2024 02:45:20 PM Interpretation: Performing Lab: Notes/Report: [facility] , Sodium 143 136-145 mmol/L Potassium 4.4 3.5-5.1 mmol/L Chloride 109 98-107 mmol/L Carbon Dioxide 26.2 21.0-32.0 mmol/L Anion Gap 12.2 Glucose 108 74-106 mg/dL Blood Urea Nitrogen 30.0 7.0-18.0 mg/dL Creatinine 1.26 0.70-1.30 mg/dL Estimated GFR ( Aleyda >60 >=60 mL/min/1.73m 2 Estimated GFR (Non- Ele 56 >=60 mL/min/1.73m 2 BUN Creatinine Ratio 23.8 Calcium 8.3 8.5-10.1 mg/dL Performing Lab: see note ML - [facility] PTT HEPARIN MONITOR Reviewed date:09/02/2024 02:45:20 PM Interpretation: Performing Lab: Notes/Report: [facility] , PTT Heparin Monitor 91.1 43.5-61.5 sec RESULTS CALLED TO [email or web address] Bita Cyr RN @BY Nicholas Amezquita [place] at 0217 Performing Lab: see note - [facility] Troponin I High Sensitivity Reviewed date:09/02/2024 02:45:20 PM Interpretation: Performing Lab: Notes/Report: [facility] , Troponin I High Sensitivity 600.2 4.0-76.1 pg/mL RESULTS CALLED TO ADRIENNE PRICE RN ON [employer] BY Mansi Parikh at 0709 CUT-OFF POINTS HAVE BEEN ESTABLISHED BASED ON THE FOURTH UNIVERSAL DEFINITION OF MYOCARDIAL INFARCTION. THE UPPER REFERENCE LIMIT (URL) OF TROPONIN, DEFINED THE 99TH PERCENTILE OF cTnI DISTRIBUTION IN A REFERENCE POPULATION, HAS BEEN CONFIRMED THE DECISION THRESHOLD FOR CT DIAGNOSIS. 99TH PERCENTILE = 76.2 PG/ML NOTE: HIGH-SENSITIVITY TROPONIN ASSAY IS NOT INTENDED TO BE USED IN ISOLATION BUT SHOULD BE INTERPRETED IN CONJUNCTION WITH OTHER DIAGNOSTIC AND CLINICAL INFORMATION. Performing Lab: see note ML - [facility] LB ECG 12 lead Reviewed date:09/03/2024 07:13:00 PM Interpretation: Performing Lab: Notes/Report: Source Facility: [place] [address] [place] [address] Electrocardiograph Report Signed Patient: JEB RIDDLE MR#: [id number] : 1950 Acct:[id number] Age/Sex: 73 / M ADM Date: 08/31/24 Loc: [place] 221-[address]: Lauren Godwin M.D. Ordering Physician: Lauren Godwin M.D. 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 Signed By: 09/03/24 1754 DD/ 0909 TD/TT: Meter/Relay Craftsman: [place] [address] Electrocardiograph Report Signed Patient: JEB RIDDLE MR#: [id number] : 1950 Acct:[id number] Age/Sex: 73 / M ADM Date: 08/31/24 Loc: MS 221-[address]: Yasmin Godwin M.D. Ordering Physician: Lauren Godwin M.D. 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 Signed By: 09/03/24 1754 DD/ 0909 TD/TT: Meter/Relay Craftsman: PTT HEPARIN MONITOR Reviewed date:09/02/2024 02:45:20 PM Interpretation: Performing Lab: Notes/Report: [facility] , PTT Heparin Monitor 47.6 43.5-61.5 sec Performing Lab: see note ML - [facility] LB Troponin I High Sensitivity Reviewed date:09/02/2024 02:45:20 PM Interpretation: Performing Lab: Notes/Report: [facility] , Troponin I High Sensitivity 471.2 4.0-76.1 pg/mL RESULTS CALLED TO LUCILA PRICE RN ON [employer] [facility] BY Mansi Parikh at 1044 CUT-OFF POINTS HAVE BEEN ESTABLISHED BASED ON THE FOURTH UNIVERSAL DEFINITION OF MYOCARDIAL INFARCTION. THE UPPER REFERENCE LIMIT (URL) OF TROPONIN, DEFINED THE 99TH PERCENTILE OF cTnI DISTRIBUTION IN A REFERENCE POPULATION, HAS BEEN CONFIRMED THE DECISION THRESHOLD FOR CT DIAGNOSIS. 99TH PERCENTILE = 76.2 PG/ML NOTE: HIGH-SENSITIVITY TROPONIN ASSAY IS NOT INTENDED TO BE USED IN ISOLATION BUT SHOULD BE INTERPRETED IN CONJUNCTION WITH OTHER DIAGNOSTIC AND CLINICAL INFORMATION. Performing Lab: see note ML - [facility] LB BNP Reviewed date:09/03/2024 01:52:37 PM Interpretation: Performing Lab: Notes/Report: [facility] , NT Pro B Type Natriuretic Pept 978.0 <=900.0 pg/mL Performing Lab: see note ML - [facility] LB Troponin I High Sensitivity Reviewed date:09/03/2024 01:52:37 PM Interpretation: Performing Lab: Notes/Report: [facility] , Troponin I High Sensitivity 189.9 4.0-76.1 pg/mL RESULTS CALLED TO MAURA PEREZ RN CUT-OFF POINTS HAVE BEEN ESTABLISHED BASED ON THE FOURTH UNIVERSAL DEFINITION OF MYOCARDIAL INFARCTION. THE UPPER REFERENCE LIMIT (URL) OF TROPONIN, DEFINED THE 99TH PERCENTILE OF cTnI DISTRIBUTION IN A REFERENCE POPULATION, HAS BEEN CONFIRMED THE DECISION THRESHOLD FOR CT DIAGNOSIS. 99TH PERCENTILE = 76.2 PG/ML NOTE: HIGH-SENSITIVITY TROPONIN ASSAY IS NOT INTENDED TO BE USED IN ISOLATION BUT SHOULD BE INTERPRETED IN CONJUNCTION WITH OTHER DIAGNOSTIC AND CLINICAL INFORMATION. Performing Lab: see note ML - [facility] LB CBC AUTO DIFF Reviewed date:11/03/2024 11:57:49 AM Interpretation: Performing Lab: Notes/Report: [facility] , White Blood Count 5.6 4.0-11.0 10 3/uL Red Blood Count 3.83 4.70-6.10 10 6/uL Hemoglobin 12.3 14.0-18.0 g/dL Hematocrit 36.0 42.0-54.0 % Mean Corpuscular Volume 94.0 80.0-94.0 fL Mean Corpuscular Hemoglobin 32.1 25.9-34.0 pg Mean Corpuscular HGB Conc 34.2 29.9-35.2 g/dL Red Cell Distribution Width 14.4 11.0-15.0 % Platelet Count 181 150-450 10 3/uL Mean Platelet Volume 10.9 9.5-13.5 fL Neutrophils Percent Auto 52.5 43.0-75.0 % Lymphocytes Percent Auto 37.2 20.5-60.0 % Monocytes Percent Auto 6.5 1.7-12.0 % Eosinophils Percent Auto 3.1 0.9-7.0 % Basophils Percent Auto 0.5 0.2-2.0 % Immature Granulocytes Pct Auto 0.2 0.0-0.5 % Neutrophils Absolute Auto 2.9 1.4-6.5 10 3/uL Lymphocytes Absolute Auto 2.1 1.2-3.8 10 3/uL Monocytes Absolute Auto 0.4 0.3-0.8 10 3/uL Eosinophils Absolute Auto 0.2 0.0-0.7 10 3/uL Basophils Absolute Auto 0.0 0.0-0.1 10 3/uL Immature Granulocytes Abs Auto 0.01 0.00-0.03 10 3/uL Performing Lab: see note ML - [facility] LB MAGNESIUM Reviewed date:11/03/2024 11:57:49 AM Interpretation: Performing Lab: Notes/Report: [facility] , Magnesium 1.3 1.8-2.4 mg/dL Performing Lab: see note - [facility] LB PROF 14(COMP METB) Reviewed date:11/03/2024 11:57:49 AM Interpretation: Performing Lab: Notes/Report: [facility] , Sodium 139 136-145 mmol/L Potassium 5.1 3.5-5.1 mmol/L Chloride 109 98-107 mmol/L Carbon Dioxide 24.0 21.0-32.0 mmol/L Anion Gap 11.1 Glucose 109 74-106 mg/dL Blood Urea Nitrogen 41.0 7.0-18.0 mg/dL Creatinine 1.55 0.70-1.30 mg/dL Estimated GFR ( Aleyda 53 >=60 mL/min/1.73m 2 Estimated GFR (Non- Ele 44 >=60 mL/min/1.73m 2 BUN Creatinine Ratio 26.5 Calcium 8.4 8.5-10.1 mg/dL Bilirubin Total 0.5 0.2-1.0 mg/dL Aspartate Amino Transferase 17 15-37 U/L Alanine Aminotransferase 26 16-63 U/L Alkaline Phosphatase 71 46-116 U/L Total Protein 5.9 6.4-8.2 g/dL Albumin Level 3.1 3.4-5.0 g/dL Globulin 2.8 Albumin Globulin Ratio 1.1 Performing Lab: see note ML - [facility] LB UA (CLEAN or CATCH) FRAME TENDER or M ICRO IF IND. Reviewed date:11/03/2024 11:57:49 AM Interpretation: Performing Lab: Notes/Report: [facility] , Color Urine LT. YELLOW YELLOW Clarity Urine CLEAR CLEAR Specific [place] Urine 1.025 1.005-1.025 pH Urine 5.5 5.0-9.0 Protein Urine NEGATIVE NEG/TRACE mg/dL Glucose Urine UA NEGATIVE NEGATIVE mg/dL Bilirubin Urine NEGATIVE NEGATIVE Ketones Urine NEGATIVE NEGATIVE mg/dL Blood Urine TRACE-I NEGATIVE Nitrite Urine NEGATIVE NEGATIVE Urobilinogen Urine 0.2 0.2-1.0 EU/dL Leukocyte Esterase Urine TRACE NEGATIVE Urine Microscopic Indicated YES Performing Lab: see note - [facility] LB Prothrombin Time INR Reviewed date:11/03/2024 11:57:49 AM Interpretation: Performing Lab: Notes/Report: [facility] , Prothrombin Time 11.4 9.0-11.6 sec INR 1.08 DESIRED INR: 2.0-3.0 CONDITIONS NOT LISTED BELOW 2.5-3.5 FOR PROSTHETIC HEART VALVE REPLACEMENT 2.5-3.5 RECURRENT THROMBOSIS Performing Lab: see note - [facility] LB Troponin I High Sensitivity Reviewed date:11/03/2024 11:57:49 AM Interpretation: Performing Lab: Notes/Report: [facility] , Troponin I High Sensitivity 11.4 4.0-76.1 pg/mL CUT-OFF POINTS HAVE BEEN ESTABLISHED BASED ON THE FOURTH UNIVERSAL DEFINITION OF MYOCARDIAL INFARCTION. THE UPPER REFERENCE LIMIT (URL) OF TROPONIN, DEFINED THE 99TH PERCENTILE OF cTnI DISTRIBUTION IN A REFERENCE POPULATION, HAS BEEN CONFIRMED THE DECISION THRESHOLD FOR CT DIAGNOSIS. 99TH PERCENTILE = 76.2 PG/ML NOTE: HIGH-SENSITIVITY TROPONIN ASSAY IS NOT INTENDED TO BE USED IN ISOLATION BUT SHOULD BE INTERPRETED IN CONJUNCTION WITH OTHER DIAGNOSTIC AND CLINICAL INFORMATION. 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 Measurements Intervals [place] Rate: 66 P: 44 OH: 162 QRS: 64 QRSD: 92 T: 34 QT: 394 QTc: 408 Interpretive Statements 1100 Sinus rhythm 1102 Sinus arrhythmia 9110 normal ECG Compared to ECG 09/03/2024 04:35:52 No significant changes Electronically Signed On 11-02-2024 17:39:15 EDT by JESSICA FORRESTER M.D. 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 Measurements Intervals [place] Rate: 66 P: 44 OH: 162 QRS: 64 QRSD: 92 T: 34 QT: 394 QTc: 408 Interpretive Statements 1100 Sinus rhythm 1102 Sinus arrhythmia 9110 normal ECG Compared to ECG 09/03/2024 04:35:52 No significant changes Electronically Johana d On 11-02-2024 17:39:15 EDT by JESSICA FORRESTER M.D. Dictated By: JESSICA FORRESTER Signed By: 11/02/241738 DD/ 1011 TD/TT: Meter/Relay Craftsman: Troponin I High Sensitivity Reviewed date:11/03/2024 11:57:49 AM Interpretation: Performing Lab: Notes/Report: [facility] , Troponin I High Sensitivity 12.3 4.0-76.1 pg/mL CUT-OFF POINTS HAVE BEEN ESTABLISHED BASED ON THE FOURTH UNIVERSAL DEFINITION OF MYOCARDIAL INFARCTION. THE UPPER REFERENCE LIMIT (URL) OF TROPONIN, DEFINED THE 99TH PERCENTILE OF cTnI DISTRIBUTION IN A REFERENCE POPULATION, HAS BEEN CONFIRMED THE DECISION THRESHOLD FOR CT DIAGNOSIS. 99TH PERCENTILE = 76.2 PG/ML NOTE: HIGH-SENSITIVITY TROPONIN ASSAY IS NOT INTENDED TO BE USED IN ISOLATION BUT SHOULD BE INTERPRETED IN CONJUNCTION WITH OTHER DIAGNOSTIC AND CLINICAL INFORMATION. Performing Lab: see note ML - [facility] LB MAGNESIUM Reviewed date:11/14/2024 07:57:19 PM Interpretation: Performing Lab: Notes/Report: [facility] , Magnesium 1.4 1.8-2.4 mg/dL Performing Lab: see note ML - [facility] LB PROF 14(COMP METB) Reviewed date:11/14/2024 07:57:19 PM Interpretation: Performing Lab: Notes/Report: [facility] , Sodium 135 136-145 mmol/L Potassium 4.8 3.5-5.1 mmol/L Chloride 104 98-107 mmol/L Carbon Dioxide 24.5 21.0-32.0 mmol/L Anion Gap 11.3 Glucose 143 74-106 mg/dL Blood Urea Nitrogen 37.0 7.0-18.0 mg/dL Creatinine 1.36 0.70-1.30 mg/dL Estimated GFR ( Aleyda >60 >=60 mL/min/1.73m 2 Estimated GFR (Non- Ele 51 >=60 mL/min/1.73m 2 BUN Creatinine Ratio 27.2 Calcium 8.5 8.5-10.1 mg/dL Bilirubin Total 0.5 0.2-1.0 mg/dL Aspartate Amino Transferase 16 15-37 U/L Alanine Aminotransferase 30 16-63 U/L Alkaline Phosphatase 76 46-116 U/L Total Protein 6.6 6.4-8.2 g/dL Albumin Level 3.3 3.4-5.0 g/dL Globulin 3.3 Albumin Globulin Ratio 1.0 Performing Lab: see note ML - [facility] LB Troponin I High Sensitivity Reviewed date:11/14/2024 07:57:19 PM Interpretation: Performing Lab: Notes/Report: [facility] , Troponin I High Sensitivity 12.4 4.0-76.1 pg/mL CUT-OFF POINTS HAVE BEEN ESTABLISHED BASED ON THE FOURTH UNIVERSAL DEFINITION OF MYOCARDIAL INFARCTION. THE UPPER REFERENCE LIMIT (URL) OF TROPONIN, DEFINED THE 99TH PERCENTILE OF cTnI DISTRIBUTION IN A REFERENCE POPULATION, HAS BEEN CONFIRMED THE DECISION THRESHOLD FOR CT DIAGNOSIS. 99TH PERCENTILE = 76.2 PG/ML NOTE: HIGH-SENSITIVITY TROPONIN ASSAY IS NOT INTENDED TO BE USED IN ISOLATION BUT SHOULD BE INTERPRETED IN CONJUNCTION WITH OTHER DIAGNOSTIC AND CLINICAL INFORMATION. Performing Lab: see note ML - [facility] CT head/brain wo con Reviewed date:11/14/2024 07:57:19 PM Interpretation: Performing Lab: Notes/Report: Source Facility: [place] [address] CT Scan Report Signed Patient: JEB RIDDLE MR#: [id number] : 1950 Acct:[id number] Age/Sex: 74 / M ADM Date: 11/14/24 Loc: ER Attending Dr: Ordering Physician: Shelby Haney Date of Service: 11/14/24 Procedure(s): CT head/brain wo con Accession Number(s): [id number] cc: Lauren Godwin M.D. [place] [id number] Patient Name: JEB RIDDLE MRN: [id number] date: 1950 Sex: M Assigned Patient Location: ER Current Patient Location: ER Accession/Order Number: [id number] Exam Date: 11/14/2024 11:21 Report Date: 11/14/2024 11:26 At the request of: SHELBY HANEY MD Procedure: CT head/brain wo con CT BRAIN WITHOUT CONTRAST: CLINICAL HISTORY: dizziness. History of hypertension. COMPARISON: MRI 09/14/2024 TECHNIQUE: Contiguous axial unenhanced images were obtained through the brain. This CT exam was performed using one or more following dose reduction techniques: Automated exposure control, adjustment of the mA and/or kV according to patient size, or use of iterative reconstruction technique. FINDINGS: There is mild atrophy. The ventricles are normal in size and position. Chronic microvascular changes are again noted. There are no additional areas of abnormal attenuation. There is no hemorrhage, mass effect or extra-axial collections. The imaged paranasal sinuses the mastoid air cells are clear. Mild carotid siphon plaque is seen. CT/CT head/brain wo con IMPRESSION: AGE-RELATED CHANGES. NO ACUTE INTRACRANIAL ABNORMALITY. Impression dictated by: Ivonne Zavala M.D.11/14/2024 11:26 AM Dictation Location: [place] [address] Electronically authenticated by: [id number] Y Date: 11/14/2024 11:26 Dictated By: Ivonne Zavala M.D. Signed By: 11/14/24 1128 DD/ 1126 TD/TT: Meter/Relay Craftsman: [place] [address] CT Scan Report Signed Patient: JEB RIDDLE MR#: [id number] : 1950 Acct:[id number] Age/Sex: 74 / M ADM Date: 11/14/24 Loc: ER Attending Dr: Ordering Physician: Shelby Haney Date of Service: 11/14/24 Procedure(s): CT head/brain wo con Accession Number(s): [id number] cc: Lauren Godwin M.D. [address] [address] Patient Name: JEB RIDDLE MRN: [id number] date: 1950 Sex: M Assigned Patient Location: ER Current Patient Location: ER Accession/Order Numb er: [id number] Exam Date: 11/14/2024 11:21 Report Date: 11/14/2024 11:26 At the request of: SHELBY HANEY MD Procedure: CT head/brain wo con CT BRAIN WITHOUT CONTRAST: CLINICAL HISTORY: dizziness. History of hypertension. COMPARISON: MRI 09/14/2024 TECHNIQUE: Imtiazuou s axial unenhanced images were obtained through the brain. This CT exam was performed using one or more following dose reduction techniques: Automate d exposure control, adjustment of the mA and/or kV according to patient size, or use of iterative reconstruction technique. FINDINGS: There is m ild atrophy. The ventricles are normal in size and position. Chronic microvascular changes are again noted. There are no additional areas of abnormal attenuation. There is no hemorrhage, mass effect or extra-axial collections. The imaged paranasal sinuses the mastoid air cells are clear. Mil d carotid siphon plaque is seen. CT/CT head/brain wo con IMPRESSION: AGE-RELATED CHANGES. NO ACUTE INTRACRANIA L ABNORMALITY. Impression dictated by: Ivonne Zavala M.D.11/14/2024 11:26 AM Dictation Location: [place] [address] Electronically authenticated by: [id number] Y Date: 11/14/2024 11:26 Dictated By: Ivonne Zavala M.D. Signed By: 11/14/24 1128 DD/ 1126 TD/TT: Meter/Relay Craftsman: BNP Reviewed date:11/25/2024 04:13:36 PM Interpretation: Performing Lab: Notes/Report: [facility] , NT Pro B Type Natriuretic Pept 579.0 <=1800.0 pg/mL Performing Lab: see note ML - [facility] LB CARDIAC JEB ADMIT Reviewed date:11/25/2024 04:13:36 PM Interpretation: Performing Lab: Notes/Report: [facility] , Creatine Kinase 76 39-308 U/L Creatine Kinase MB 1.64 <=3.60 ng/mL Myoglobin 79 16-96 ng/mL Troponin I High Sensitivity 11.9 4.0-76.1 pg/mL CUT-OFF POINTS HAVE BEEN ESTABLISHED BASED ON THE FOURTH UNIVERSAL DEFINITION OF MYOCARDIAL INFARCTION. THE UPPER REFERENCE LIMIT (URL) OF TROPONIN, DEFINED THE 99TH PERCENTILE OF cTnI DISTRIBUTION IN A REFERENCE POPULATION, HAS BEEN CONFIRMED THE DECISION THRESHOLD FOR CT DIAGNOSIS. 99TH PERCENTILE = 76.2 PG/ML NOTE: HIGH-SENSITIVITY TROPONIN ASSAY IS NOT INTENDED TO BE USED IN ISOLATION BUT SHOULD BE INTERPRETED IN CONJUNCTION WITH OTHER DIAGNOSTIC AND CLINICAL INFORMATION. Performing Lab: see note ML - [facility] LB CBC AUTO DIFF Reviewed date:11/25/2024 03:42:59 PM Interpretation: Performing Lab: Notes/Report: [facility] , White Blood Count 5.9 4.0-11.0 10 3/uL Red Blood Count 3.64 4.70-6.10 10 6/uL Hemoglobin 11.7 14.0-18.0 g/dL Hematocrit 34.9 42.0-54.0 % Mean Corpuscular Volume 95.9 80.0-94.0 fL Mean Corpuscular Hemoglobin 32.1 25.9-34.0 pg Mean Corpuscular HGB Conc 33.5 29.9-35.2 g/dL Red Cell Distribution Width 13.8 11.0-15.0 % Platelet Count 209 150-450 10 3/uL Mean Platelet Volume 10.5 9.5-13.5 fL Neutrophils Percent Auto 55.1 43.0-75.0 % Lymphocytes Percent Auto 31.5 20.5-60.0 % Monocytes Percent Auto 9.7 1.7-12.0 % Eosinophils Percent Auto 3.2 0.9-7.0 % Basophils Percent Auto 0.2 0.2-2.0 % Immature Granulocytes Pct Auto 0.3 0.0-0.5 % Neutrophils Absolute Auto 3.2 1.4-6.5 10 3/uL Lymphocytes Absolute Auto 1.9 1.2-3.8 10 3/uL Monocytes Absolute Auto 0.6 0.3-0.8 10 3/uL Eosinophils Absolute Auto 0.2 0.0-0.7 10 3/uL Basophils Absolute Auto 0.0 0.0-0.1 10 3/uL Immature Granulocytes Abs Auto 0.02 0.00-0.03 10 3/uL Performing Lab: see note ML - [facility] LB PROF 14(COMP METB) Reviewed date:11/25/2024 06:16:15 PM Interpretation: Performing Lab: Notes/Report: [facility] , Sodium 139 136-145 mmol/L Potassium 4.4 3.5-5.1 mmol/L Chloride 107 98-107 mmol/L Carbon Dioxide 18.9 21.0-32.0 mmol/L Anion Gap 17.5 Glucose 140 74-106 mg/dL Blood Urea Nitrogen 31.0 7.0-18.0 mg/dL Creatinine 1.41 0.70-1.30 mg/dL Estimated GFR ( Aleyda 59 >=60 mL/min/1.73m 2 Estimated GFR (Non- Ele 49 >=60 mL/min/1.73m 2 BUN Creatinine Ratio 22.0 Calcium 8.2 8.5-10.1 mg/dL Bilirubin Total 0.4 0.2-1.0 mg/dL Aspartate Amino Transferase 19 15-37 U/L Alanine Aminotransferase 24 16-63 U/L Alkaline Phosphatase 76 46-116 U/L Total Protein 6.4 6.4-8.2 g/dL Albumin Level 3.4 3.4-5.0 g/dL Globulin 3.0 Albumin Globulin Ratio 1.1 Performing Lab: see note ML - [facility] Troponin I High Sensitivity Reviewed date:11/25/2024 06:16:15 PM Interpretation: Performing Lab: Notes/Report: [facility] , Troponin I High Sensitivity 10.0 4.0-76.1 pg/mL CUT-OFF POINTS HAVE BEEN ESTABLISHED BASED ON THE FOURTH UNIVERSAL DEFINITION OF MYOCARDIAL INFARCTION. THE UPPER REFERENCE LIMIT (URL) OF TROPONIN, DEFINED THE 99TH PERCENTILE OF cTnI DISTRIBUTION IN A REFERENCE POPULATION, HAS BEEN CONFIRMED THE DECISION THRESHOLD FOR CT DIAGNOSIS. 99TH PERCENTILE = 76.2 PG/ML NOTE: HIGH-SENSITIVITY TROPONIN ASSAY IS NOT INTENDED TO BE USED IN ISOLATION BUT SHOULD BE INTERPRETED IN CONJUNCTION WITH OTHER DIAGNOSTIC AND CLINICAL INFORMATION. Performing Lab: see note ML - [facility] LB TSH W/ REFLEX FT4 Reviewed date:11/25/2024 06:16:15 PM Interpretation: Performing Lab: Notes/Report: [facility] , TSH W/ REFLEX FT4 2.290 0.358-3.740 uIU/mL Performing Lab: see note - [facility] UA Micro, reflex to culture Reviewed date:11/25/2024 04:13:08 PM Interpretation: Performing Lab: Notes/Report: [facility] , Color Urine LT. YELLOW YELLOW Clarity Urine CLEAR CLEAR Specific [place] Urine 1.010 1.005-1.025 pH Urine 6.0 5.0-9.0 Protein Urine NEGATIVE NEG/TRACE mg/dL Glucose Urine UA NEGATIVE NEGATIVE mg/dL Bilirubin Urine NEGATIVE NEGATIVE Ketones Urine NEGATIVE NEGATIVE mg/dL Blood Urine MODERATE NEGATIVE Nitrite Urine NEGATIVE NEGATIVE Urobilinogen Urine 0.2 0.2-1.0 EU/dL Leukocyte Esterase Urine NEGATIVE NEGATIVE WBC Urine 0-2 NONE SEEN #/HPF RBC Urine 0-2 0-2 #/HPF Bacteria Urine NONE SEEN NONE SEEN #/HPF Mucus Urine NONE SEEN NONE SEEN Squamous Epithelial Cell Urine NONE SEEN NONE/RARE #/LPF Crystals Seen? None Seen None Seen #/HPF Cast Seen? NONE SEEN NONE SEEN #/LPF Performing Lab: see note ML - [facility] LB ECG 12 lead Reviewed date:11/26/2024 08:47:37 PM Interpretation: Performing Lab: Notes/Report: Source Facility: [facility]-[address] [place] [address] [place] [address] Electrocardiograph Report Signed Patient: JEB RIDDLE MR#: [id number] : 1950 Acct:[id number] Age/Sex: 74 / M ADM Date: 11/25/24 Loc: ER Attending Dr: Ordering Physician: Damian Fraga Date of Service: 11/25/24 Procedure(s): ECG 12 lead Accession Number(s): [id number] cc: [facility] Test Date: 2024-11-25 Pat Name: JEB RIDDEL Department: Room: - Gender: Male 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 Measurements Intervals [place] Rate: 92 P: 66 OH: 176 QRS: 74 QRSD: 92 T: 73 QT: 360 QTc: 409 Interpretive Statements 1100 Sinus rhythm 9110 normal ECG Compared to ECG 11/14/2024 10:29:25 Sinus arrhythmia no longer present Electronically Signed On 11-26-2024 7:35:55 EDT by JESSICA FORRESTER M.D. 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 Measurements Intervals [place] Rate: 92 P: 66 OH: 176 QRS: 74 QRSD: 92 T: 73 QT: 360 QTc: 409 Interpretive Statements 1100 Sinus rhythm 9110 normal ECG Compared to ECG 11/14/2024 10:29:25 Sinus arrhythmia no longer present Electronically Johana d On 11-26-2024 7:35:55 EDT by JESSICA FORRESTER M.D. Dictated By: JESSICA FORRESTER Signed By: 11/26/24 0736 DD/ 1501 TD/TT: Meter/Relay Craftsman: PSA Total+% Free Reviewed date:12/01/2024 01:18:05 PM Interpretation: Performing Lab: Notes/Report: [facility] , Prostate Specific Ag 4.4 0.0-4.0 ng/mL Satnam ECLIA methodology. According to the [employer], Serum PSA should decrease and remain at undetectable levels after radical prostatectomy. The AUA defines biochemical recurrence as an initial PSA value 0.2 ng/mL or greater followed by a subsequent confirmatory PSA value 0.2 ng/mL or greater. Values obtained with different assay methods or kits cannot be used interchangeably. Results cannot be interpreted as absolute evidence of the presence or absence of malignant disease. PSA, Free 0.79 N/A ng/mL Satnam ECLIA met hodology. % Free PSA 18.0 . % The table below lists the probability of prostate cancer for men with non-suspicious ROSA results and total PSA between 4 and 10 ng/mL, by patient age (Marie et al, ELSY 1998, 279:1542). % Free PSA 50-64 yr 65-75 yr 0.00-10.00% 56% 55% 10.01-15.00% 24% 35% 15.01-20.00% 17% 23% 20.01-25.00% 10% 20% >25.00% 5% 9% Please note: Marie et al did not make specific recommendations regarding the use of percent free PSA for any other population of men. Performed at: - [facility] [id number] Postdoctoral Scientist: Greg Renee PhD, Phone: [phone] Performing Lab: see note - [facility] LB ECG 12 lead Reviewed date:12/01/2024 01:18:05 PM Interpretation: Performing Lab: Notes/Report: Source Facility: [place] [address] [place] [address] Electrocardiograph Report Signed Patient: JEB RIDDLE MR#: [id number] : 1950 Acct:[id number] Age/Sex: 74 / M ADM Date: 11/30/24 Loc: ER Attending Dr: Ordering Physician: Jose Alberto Worley M.D. 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 Measurements Intervals [place] Rate: 108 P: 69 OH: 166 QRS: 63 QRSD: 90 T: 80 QT: 340 QTc: 403 Interpretive Statements 1120 Sinus tachycardia Otherwise normal ECG Compared to ECG 11/25/2024 15:01:12 No significant changes Electronically Signed On 11-30-2024 11:55:03 EDT by JESSICA FORRESTER M.D. 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 Measurements Intervals [place] Rate: 108 P: 69 OH: 166 QRS: 63 QRSD: 90 T: 80 QT: 340 QTc: 403 Interpretive Statements 1120 Sinus tachycardia Otherwise normal ECG Compared to ECG 11/25/2024 15:01:12 No significant changes Electronically Johana d On 11-30-2024 11:55:03 EDT by JESSICA FORRESTER M.D. Dictated By: JESSICA FORRESTER Signed By: 11/30/24 1155 DD/ 0712 TD/TT: Meter/Relay Craftsman: CA echo doppler complete Reviewed date:12/18/2024 12:57:31 PM Interpretation: Performing Lab: Notes/Report: Source Facility: [place] [address] Cardiology Report Signed Patient: JEB RIDDLE MR#: [id number] : 1950 Acct:[id number] Age/Sex: 74 / M ADM Date: 12/18/24 Loc: CARD Attending Dr: Lauren Godwin M.D. Ordering Physician: Lauren Godwin M.D. Date of Service: 12/18/24 Procedure(s): CA echo doppler complete Accession Number(s): [id number] cc: Lauren Godwin M.D. Patient Name: JEB RIDDLE MR#: [id number] : 1950 Exam Date: 12/18/2024 Ordering Doctor: DR LAUREN GODWIN . ECHOCARDIOGRAM REPORT PROCEDURE: CA ECHO DOPPLER COMPLETE INDICATIONS: Angina, hypertension COMPARISON: None. DESCRIPTION: COMPLETE ECHOCARDIOGRAM Real-time transthoracic echocardiography with 2D, M-mode, spectral and color flow Doppler performed. QUALITY: Technical quality was good. LEFT VENTRICLE: Normal chamber size. Moderate left ventricular hypertrophy. Sigmoid septum. LV EF: Global left ventricular systolic function is hyperdynamic; visually estimated ejection fraction is 65 to 70%. No significant wall motion abnormalities. DIASTOLIC: Unable to assess diastolic function. ATRIAL SEPTUM: Visually appears intact. LEFT ATRIUM: Normal chamber size. RIGHT ATRIUM: Normal chamber size. RIGHT VENTRICLE: Normal chamber size. Normal right ventricular systolic function. TRICUSPID VALVE: Normal mobility and thickness. No stenosis with trivial regurgitation. Unable to estimate right-sided pressures due to lack of measurable tricuspid regurgitation. MITRAL VALVE: Mildly thickened with normal mobility. No evidence of mitral valve stenosis. Mild mitral annular calcification. Trivial mitral regurgitation. AORTIC VALVE: Normal trileaflet appearance. No visible sclerosis. Normal leaflet mobility. No evidence of aortic valve stenosis. Trivial aortic regurgitation. AORTIC ROOT: Normal diameter and appearance. PULMONIC VALVE: Normal thickness and mobility. No stenosis. No regurgitation. PERICARDIUM: No evidence of pericardial effusion. IVC: Collapses with inspirations. IVC is normal in size. CONCLUSION: 1. Global left ventricular systolic function is hyperdynamic; visually estimated ejection fraction 65 to 70% 2. Normal right ventricular size and systolic function 3. Moderate left ventricular hypertrophy 4. No significant valvular abnormalities Adult Echocardiography Procedure Report Left Ventricle LVEDD (3.7 - 5.6 cm): 4.50 cm LVESD (2.2 - 4.0 cm): 2.40 cm LVIVS thickness (0.6 - 1.2 cm): 1.86 cm LVPW thickness (0.5 - 1.0 cm): 1.01 cm e': 0.06 m/s E - e': 10.01 LVOT Max Gradient: 3.23 mm[Hg] LVOT Area (cm2): 0.90 m/s Peak Velocity (LVOT): 0.90 m/s Mean Velocity (LVOT): 0.46 m/s LVOT Diameter 2.72 cm Left Atrium LA Volume Index (2D A2C): 31.85 ml/m2 Left Atrium Systolic Dimension: 4.03 cm Mitral Valve MV E to A Ratio: 0.95 Mitral Valve A-Wave Peak Velocity: 0.68 m/s Mitral Valve E-Wave Peak Velocity: 0.65 m/s Right Ventricle Aorta AO Root Diam: 3.95 cm Ascending Ao Diam: 3.59 cm Aortic Valve AoV Area (Peak Zac): 5.81 cm2, 5.81 cm2 AoV Area (VTI): 6.38 cm2, 6.38 cm2 Peak Velocity(Antegrade Flow): 0.90 m/s Peak Gradient(Antegrade Flow): 3.21 mm[Hg] Mean Velocity(Antegrade Flow): 0.59 m/s Mean Gradient(Antegrade Flow): 1.65 mm[Hg] Velocity Time Integral: 19.22 cm Tricuspid Valve Pulmonic Valve Mean Gradient: 1.43 mm[Hg] Mean Velocity: 0.55 m/s Peak Velocity: 0.84 m/s, 0.84 m/s Peak Gradient: 2.83 mm[Hg], 2.83 mm[Hg] Right Atrium Right Atrium Systolic Pressure: 41.40 ml, 41.40 ml Dictated by: Adal Hernandez M.D. on 12/18/2024 at 12:06 Approved by: Adal Hernandez M.D. on 12/18/2024 at 12:11 Dictated By: Adal Hernandez M.D. Signed By: 12/18/24 1212 DD/ 1211 TD/TT: Meter/Relay Craftsman: [place] [address] Cardiology Report Signed Patient: JEB RIDDLE MR#: [id number] : 1950 Acct:[id number] Age/Sex: 74 / M ADM Date: 12/18/24 Loc: CARD Attending Dr: Yasmin Godwin M.D. Ordering Physician: Lauren Godwin M.D. Date of Service: 12/18/24 Procedure(s): CA ech o doppler complete Accession Number(s): [id number] cc: Lauren Godwin M.D. Patient Name: JEB RIDDLE MR#: [id number] : 1950 Exam Date: 12/18/2024 Ordering Doctor: DR LAUREN GODWIN . ECHOCARDIOGRAM REPORT PROCEDURE: CA ECHO DOPPLER COMPLETE INDICATIONS: Angina, hypertension COMPARISON: None. DESCRIPTION: COMPLET E ECHOCARDIOGRAM Real-time transthoracic echocardiography wit h 2D, M-mode, spectral and color flow Doppler performed. QUALITY: Technical quality was good. LEFT VENTRICLE: Norm al chamber size. Moderate left ventricular hypertrophy. Sigmoid septum. LV EF: Global left ventricular systolic function is hyperdynamic; visually estimated ejection fraction is 65 to 70%. No significant wall motion abnormalities. DIASTOLIC: Unable to assess diastolic function. ATRIAL SEPTUM: Visua lly appears intact. LEFT ATRIUM: Normal chamber size. RIGHT ATRIUM: Normal chamber size. RIGHT VENTRICLE: Nor mal chamber size. Normal right ventricular systolic function. TRICUSPID VALVE: [place] mal mobility and thickness. No stenosis with trivial regurgitation. Unabl e to estimate right-sided pressures due to lack of measurable tricuspid regurgitation. MITRAL VALVE: Mildly thickened with normal mobility. No evidence of mitral valve stenosi s. Mild mitral annular calcification. Trivial mitral regurgitation. AORTIC VALVE: Normal trileaflet appearance. No visible sclerosis. Normal leaflet mobility. No evidence of aortic valve stenosis. Trivial aortic regurgitation. AORTIC ROOT: Normal diameter and appearance. PULMONIC VALVE: Norm al thickness and mobility. No stenosis. No regurgitation. PERICARDIUM: No evidence of pericardial effusion. IVC: Collapses with inspirations. IVC is normal in size. CONCLUSION: 1. Global left ventricular systolic function is hyperdynamic; visually estimated ejection fraction 65 to 70% 2. Normal right ventricular size and systolic function 3. Moderate left ventricular hypertrophy 4. No significant valvular abnormalities Adult Echocardiograp hy Procedure Report Left Ventricle LVEDD (3.7 - 5.6 cm) : 4.50 cm LVESD (2.2 - 4.0 cm) : 2.40 cm LVIVS thickness (0.6 - 1.2 cm): 1.86 cm LVPW thickness (0.5 - 1.0 cm): 1.01 cm e': 0.06 m/s E - e': 10.01 LVOT Max Gradient: 3 .23 mm[Hg] LVOT Area (cm2): 0.9 0 m/s Peak Velocity (LVOT) : 0.90 m/s Mean Velocity (LVOT) : 0.46 m/s LVOT Diameter 2.72 cm Left Atrium LA Volume Index (2D A2C): 31.85 ml/m2 Left Atrium Systolic Dimension: 4.03 cm Mitral Valve MV E to A Ratio: 0.95 Mitral Valve A-Wave Peak Velocity: 0.68 m/s Mitral Valve E-Wave Peak Velocity: 0.65 m/s Right Ventricle Aorta AO Root Diam: 3.95 cm Ascending Ao Diam: 3 .59 cm Aortic Valve AoV Area (Peak Zac): 5.81 cm2, 5.81 cm2 AoV Area (VTI): 6.38 cm2, 6.38 cm2 Peak Velocity(Antegr sujata Flow): 0.90 m/s Peak Gradient(Antegr sujata Flow): 3.21 mm[Hg] Mean Velocity(Antegr sujata Flow): 0.59 m/s Mean Gradient(Antegr sujata Flow): 1.65 mm[Hg] Velocity Time Integr al: 19.22 cm Tricuspid Valve Pulmonic Valve Mean Gradient: 1.43 mm[Hg] Mean Velocity: 0.55 m/s Peak Velocity: 0.84 m/s, 0.84 m/s Peak Gradient: 2.83 mm[Hg], 2.83 mm[Hg] Right Atrium Right Atrium Systoli c Pressure: 41.40 ml, 41.40 ml Dictated by: Adal Hernandez M.D. on 12/18/2024 at 12:06 Approved by: Adal Hernandez M.D. on 12/18/2024 at 12:11 Dictated By: Adal Hernandez M.D. Signed By: 12/18/24 1212 DD/ 1211 TD/TT: Meter/Relay Craftsman: MAGNESIUM Reviewed date:11/25/2024 06:16:15 PM Interpretation: Performing Lab: Notes/Report: [facility] , Magnesium 1.3 1.8-2.4 mg/dL Performing Lab: see note ML - [facility] LB LIPASE Reviewed date:11/25/2024 06:16:15 PM Interpretation: Performing Lab: Notes/Report: [facility] , Lipase 31.0 16.0-77.0 U/L Performing Lab: see note ML - [facility] LB ECG 12 lead Reviewed date:11/14/2024 07:57:19 PM Interpretation: Performing Lab: Notes/Report: Source Facility: [facility]-[address] [place] [address] [place] [address] Electrocardiograph Report Signed Patient: JEB RIDDLE MR#: [id number] : 1950 Acct:[id number] Age/Sex: 74 / M ADM Date: 11/14/24 Loc: ER Attending Dr: Ordering Physician: Shelby Haney Date of Service: 11/14/24 Procedure(s): ECG 12 lead Accession Number(s): [id number] cc: [facility] Test Date: 2024-11-14 Pat Name: JEB RIDDLE Department: Room: - Gender: 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 Measurements Intervals [place] Rate: 76 P: 44 OH: 164 QRS: 59 QRSD: 92 T: 79 QT: 382 QTc: 412 Interpretive Statements 1100 Sinus rhythm 1102 Sinus arrhythmia 9110 normal ECG Compared to ECG 11/02/2024 10:11:13 No significant changes Electronically Signed On 11-14-2024 17:30:02 EDT by JESSICA FORRESTER M.D. 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 Measurements Intervals [place] Rate: 76 P: 44 OH: 164 QRS: 59 QRSD: 92 T: 79 QT: 382 QTc: 412 Interpretive Statements 1100 Sinus rhythm 1102 Sinus arrhythmia 9110 normal ECG Compared to ECG 11/02/2024 10:11:13 No significant changes Electronically Johana d On 11-14-2024 17:30:02 EDT by JESSICA FORRESTER M.D. Dictated By: JESSICA FORRESTER Signed By: 11/14/24 0976 DD/ 1029 TD/TT: Meter/Relay Craftsman: MAGDIEL Alexandre, reflex to culture Reviewed date:11/14/2024 07:57:19 PM Interpretation: Performing Lab: Notes/Report: [facility] , Color Urine LT. YELLOW YELLOW Clarity Urine CLEAR CLEAR Specific [place] Urine <=1.005 1.005-1.025 pH Urine 6.0 5.0-9.0 Protein Urine NEGATIVE NEG/TRACE mg/dL Glucose Urine UA NEGATIVE NEGATIVE mg/dL Bilirubin Urine NEGATIVE NEGATIVE Ketones Urine NEGATIVE NEGATIVE mg/dL Blood Urine TRACE-I NEGATIVE Nitrite Urine NEGATIVE NEGATIVE Urobilinogen Urine 0.2 0.2-1.0 EU/dL Leukocyte Esterase Urine NEGATIVE NEGATIVE WBC Urine 0-2 NONE SEEN #/HPF RBC Urine 0-2 0-2 #/HPF Bacteria Urine NONE SEEN NONE SEEN #/HPF Mucus Urine NONE SEEN NONE SEEN Squamous Epithelial Cell Urine NONE SEEN NONE/RARE #/LPF Crystals Seen? None Seen None Seen #/HPF Cast Seen? NONE SEEN NONE SEEN #/LPF Urine Culture Indicated NO Performing Lab: see note ML - [facility] LB CBC AUTO DIFF Reviewed date:11/14/2024 07:57:19 PM Interpretation: Performing Lab: Notes/Report: [facility] , White Blood Count 5.9 4.0-11.0 10 3/uL Red Blood Count 3.88 4.70-6.10 10 6/uL Hemoglobin 12.4 14.0-18.0 g/dL Hematocrit 36.5 42.0-54.0 % Mean Corpuscular Volume 94.1 80.0-94.0 fL Mean Corpuscular Hemoglobin 32.0 25.9-34.0 pg Mean Corpuscular HGB Conc 34.0 29.9-35.2 g/dL Red Cell Distribution Width 14.1 11.0-15.0 % Platelet Count 200 150-450 10 3/uL Mean Platelet Volume 10.1 9.5-13.5 fL Neutrophils Percent Auto 55.7 43.0-75.0 % Lymphocytes Percent Auto 35.0 20.5-60.0 % Monocytes Percent Auto 6.1 1.7-12.0 % Eosinophils Percent Auto 2.7 0.9-7.0 % Basophils Percent Auto 0.3 0.2-2.0 % Immature Granulocytes Pct Auto 0.2 0.0-0.5 % Neutrophils Absolute Auto 3.3 1.4-6.5 10 3/uL Lymphocytes Absolute Auto 2.1 1.2-3.8 10 3/uL Monocytes Absolute Auto 0.4 0.3-0.8 10 3/uL Eosinophils Absolute Auto 0.2 0.0-0.7 10 3/uL Basophils Absolute Auto 0.0 0.0-0.1 10 3/uL Immature Granulocytes Abs Auto 0.01 0.00-0.03 10 3/uL Performing Lab: see note ML - [facility] LB URINE MICROSCOPIC ONLY Reviewed date:11/03/2024 11:57:49 AM Interpretation: Performing Lab: Notes/Report: [facility] , WBC Urine 0-2 NONE SEEN #/HPF RBC Urine 2-5 0-2 #/HPF Bacteria Urine TRACE NONE SEEN #/HPF Mucus Urine NONE SEEN NONE SEEN Squamous Epithelial Cell Urine FEW NONE/RARE #/LPF Crystals Seen? None Seen None Seen #/HPF Cast Seen? SEEN NONE SEEN #/LPF Hyaline Casts Urine RARE Urine Culture Indicated NO Performing Lab: see note ML - [facility] LB Aerobic Culture Reviewed date:10/29/2024 08:25:16 PM Interpretation: Performing Lab: Notes/Report: [facility] , Aerobic Culture See Below For Report Aerobic Culture Organism: Staphylococcus aureus : O:MRSA Isolated O:STAAUR Isolated Organism: 2.1 Antibiotic Interpretation INDIRA Status Ciprofloxacin Ciprofloxacin R F Erythromycin Erythromycin R F Gentamicin Gentamicin S F Levofloxacin Levofloxacin R F Linezolid Linezolid S F Oxacillin Oxacillin R F Penicillin Penicillin R F Rifampin Rifampin S F Tetracycline Tetracycline S F Trimethoprim/Sulfamethoxazol e Trimethoprim/Sulfamethoxazol e S F Vancomycin Vancomycin S F Clindamycin Clindamycin R F Aerobic Culture *ABNORMAL* Aerobic Culture Organism: Staphylococcus aureus : O:MRSA Isolated O:STAAUR Isolated Organism: 2.1 Antibiotic Interpretation INDIRA Status Ciprofloxacin Ciprofloxacin R F Erythromycin Erythromycin R F Gentamicin Gentamicin S F Levofloxacin Levofloxacin R F Linezolid Linezolid S F Oxacillin Oxacillin R F Penicillin Penicillin R F Rifampin Rifampin S F Tetracycline Tetracycline S F Trimethoprim/Sulfamethoxazol e Trimethoprim/Sulfamethoxazol e S F Vancomycin Vancomycin S F Clindamycin Clindamycin R F Aerobic Culture Heavy growth Aerobic Culture Organism: Staphylococcus aureus : O:MRSA Isolated O:STAAUR Isolated Organism: 2.1 Antibiotic Interpretation INDIRA Status Ciprofloxacin Ciprofloxacin R F Erythromycin Erythromycin R F Gentamicin Gentamicin S F Levofloxacin Levofloxacin R F Linezolid Linezolid S F Oxacillin Oxacillin R F Penicillin Penicillin R F Rifampin Rifampin S F Tetracycline Tetracycline S F Trimethoprim/Sulfamethoxazol e Trimethoprim/Sulfamethoxazol e S F Vancomycin Vancomycin S F Clindamycin Clindamycin R F Aerobic Culture Staphylococcus aureus Aerobic Culture Organism: Staphylococcus aureus : O:MRSA Isolated O:STAAUR Isolated Organism: 2.1 Antibiotic Interpretation INDIRA Status Ciprofloxacin Ciprofloxacin R F Erythromycin Erythromycin R F Gentamicin Gentamicin S F Levofloxacin Levofloxacin R F Linezolid Linezolid S F Oxacillin Oxacillin R F Penicillin Penicillin R F Rifampin Rifampin S F Tetracycline Tetracycline S F Trimethoprim/Sulfamethoxazol e Trimethoprim/Sulfamethoxazol e S F Vancomycin Vancomycin S F Clindamycin Clindamycin R F Aerobic Culture Organism: Timmylli n Resis Staph Aureus : Aerobic Culture Organism: Staphylococcus aureus : O:MRSA Isolated O:STAAUR Isolated Organism: 2.1 Antibiotic Interpretation INDIRA Status Ciprofloxacin Ciprofloxacin R F Erythromycin Erythromycin R F Gentamicin Gentamicin S F Levofloxacin Levofloxacin R F Linezolid Linezolid S F Oxacillin Oxacillin R F Penicillin Penicillin R F Rifampin Rifampin S F Tetracycline Tetracycline S F Trimethoprim/Sulfamethoxazol e Trimethoprim/Sulfamethoxazol e S F Vancomycin Vancomycin S F Clindamycin Clindamycin R F Aerobic Culture *ABNORMAL* Aerobic Culture Organism: Staphylococcus aureus : O:MRSA Isolated O:STAAUR Isolated Organism: 2.1 Antibiotic Interpretation INDIRA Status Ciprofloxacin Ciprofloxacin R F Erythromycin Erythromycin R F Gentamicin Gentamicin S F Levofloxacin Levofloxacin R F Linezolid Linezolid S F Oxacillin Oxacillin R F Penicillin Penicillin R F Rifampin Rifampin S F Tetracycline Tetracycline S F Trimethoprim/Sulfamethoxazol e Trimethoprim/Sulfamethoxazol e S F Vancomycin Vancomycin S F Clindamycin Clindamycin R F Aerobic Culture Methicillin - resistant Aerobic Culture Organism: Staphylococcus aureus : O:MRSA Isolated O:STAAUR Isolated Organism: 2.1 Antibiotic Interpretation INDIRA Status Ciprofloxacin Ciprofloxacin R F Erythromycin Erythromycin R F Gentamicin Gentamicin S F Levofloxacin Levofloxacin R F Linezolid Linezolid S F Oxacillin Oxacillin R F Penicillin Penicillin R F Rifampin Rifampin S F Tetracycline Tetracycline S F Trimethoprim/Sulfamethoxazol e Trimethoprim/Sulfamethoxazol e S F Vancomycin Vancomycin S F Clindamycin Clindamycin R F Aerobic Culture Based on resistance to oxacillin this isolate would be Aerobic Culture Organism: Staphylococcus aureus : O:MRSA Isolated O:[facility] Isolated Organism: 2.1 Antibiotic Interpretation INDIRA Status Ciprofloxacin Ciprofloxacin R F Erythromycin Erythromycin R F Gentamicin Gentamicin S F Levofloxacin Levofloxacin R F Linezolid Linezolid S F Oxacillin Oxacillin R F Penicillin Penicillin R F Rifampin Rifampin S F Tetracycline Tetracycline S F Trimethoprim/Sulfamethoxazol e Trimethoprim/Sulfamethoxazol e S F Vancomycin Vancomycin S F Clindamycin Clindamycin R F Aerobic Culture resistant to all currently available beta-lactam Aerobic Culture Organism: Staphylococcus aureus : O:MRSA Isolated O:[facility] Isolated Organism: 2.1 Antibiotic Interpretation INDIRA Status Ciprofloxacin Ciprofloxacin R F Erythromycin Erythromycin R F Gentamicin Gentamicin S F Levofloxacin Levofloxacin R F Linezolid Linezolid S F Oxacillin Oxacillin R F Penicillin Penicillin R F Rifampin Rifampin S F Tetracycline Tetracycline S F Trimethoprim/Sulfamethoxazol e Trimethoprim/Sulfamethoxazol e S F Vancomycin Vancomycin S F Clindamycin Clindamycin R F Aerobic Culture antimicrobial agents , with the exception of the newer Aerobic Culture Organism: Staphylococcus aureus : O:MRSA Isolated O:[facility] Isolated Organism: 2.1 Antibiotic Interpretation INDIRA Status Ciprofloxacin Ciprofloxacin R F Erythromycin Erythromycin R F Gentamicin Gentamicin S F Levofloxacin Levofloxacin R F Linezolid Linezolid S F Oxacillin Oxacillin R F Penicillin Penicillin R F Rifampin Rifampin S F Tetracycline Tetracycline S F Trimethoprim/Sulfamethoxazol e Trimethoprim/Sulfamethoxazol e S F Vancomycin Vancomycin S F Clindamycin Clindamycin R F Aerobic Culture cephalosporins with anti-MRSA activity, such as Aerobic Culture Organism: Staphylococcus aureus : O:MRSA Isolated O:[facility] Isolated Organism: 2.1 Antibiotic Interpretation INDIRA Status Ciprofloxacin Ciprofloxacin R F Erythromycin Erythromycin R F Gentamicin Gentamicin S F Levofloxacin Levofloxacin R F Linezolid Linezolid S F Oxacillin Oxacillin R F Penicillin Penicillin R F Rifampin Rifampin S F Tetracycline Tetracycline S F Trimethoprim/Sulfamethoxazol e Trimethoprim/Sulfamethoxazol e S F Vancomycin Vancomycin S F Clindamycin Clindamycin R F Aerobic Culture Ceftaroline Aerobic Culture Organism: Staphylococcus aureus : O:MRSA Isolated O:[facility] Isolated Organism: 2.1 Antibiotic Interpretation INDIRA Status Ciprofloxacin Ciprofloxacin R F Erythromycin Erythromycin R F Gentamicin Gentamicin S F Levofloxacin Levofloxacin R F Linezolid Linezolid S F Oxacillin Oxacillin R F Penicillin Penicillin R F Rifampin Rifampin S F Tetracycline Tetracycline S F Trimethoprim/Sulfamethoxazol e Trimethoprim/Sulfamethoxazol e S F Vancomycin Vancomycin S F Clindamycin Clindamycin R F Aerobic Culture Heavy growth Aerobic Culture Organism: Staphylococcus aureus : O:MRSA Isolated O:[facility] Isolated Organism: 2.1 Antibiotic Interpretation INDIRA Status Ciprofloxacin Ciprofloxacin R F Erythromycin Erythromycin R F Gentamicin Gentamicin S F Levofloxacin Levofloxacin R F Linezolid Linezolid S F Oxacillin Oxacillin R F Penicillin Penicillin R F Rifampin Rifampin S F Tetracycline Tetracycline S F Trimethoprim/Sulfamethoxazol e Trimethoprim/Sulfamethoxazol e S F Vancomycin Vancomycin S F Clindamycin Clindamycin R F Aerobic Culture Methicillin Resis St aph Aureus Aerobic Culture Organism: Staphylococcus aureus : O:MRSA Isolated O:[facility] Isolated Organism: 2.1 Antibiotic Interpretation INDIRA Status Ciprofloxacin Ciprofloxacin R F Erythromycin Erythromycin R F Gentamicin Gentamicin S F Levofloxacin Levofloxacin R F Linezolid Linezolid S F Oxacillin Oxacillin R F Penicillin Penicillin R F Rifampin Rifampin S F Tetracycline Tetracycline S F Trimethoprim/Sulfamethoxazol e Trimethoprim/Sulfamethoxazol e S F Vancomycin Vancomycin S F Clindamycin Clindamycin R F Aerobic Culture See Below For Report Aerobic Culture Organism: Staphylococcus aureus : O:MRSA Isolated O:[facility] Isolated Organism: 2.1 Antibiotic Interpretation INDIRA Status Ciprofloxacin Ciprofloxacin R F Erythromycin Erythromycin R F Gentamicin Gentamicin S F Levofloxacin Levofloxacin R F Linezolid Linezolid S F Oxacillin Oxacillin R F Penicillin Penicillin R F Rifampin Rifampin S F Tetracycline Tetracycline S F Trimethoprim/Sulfamethoxazol e Trimethoprim/Sulfamethoxazol e S F Vancomycin Vancomycin S F Clindamycin Clindamycin R F Aerobic Culture See Below For Report Aerobic Culture Organism: Staphylococcus aureus : O:MRSA Isolated O:[facility] Isolated Organism: 2.1 Antibiotic Interpretation INDIRA Status Ciprofloxacin Ciprofloxacin R F Erythromycin Erythromycin R F Gentamicin Gentamicin S F Levofloxacin Levofloxacin R F Linezolid Linezolid S F Oxacillin Oxacillin R F Penicillin Penicillin R F Rifampin Rifampin S F Tetracycline Tetracycline S F Trimethoprim/Sulfamethoxazol e Trimethoprim/Sulfamethoxazol e S F Vancomycin Vancomycin S F Clindamycin Clindamycin R F Aerobic Culture Performed at: [facility] Aerobic Culture Organism: Staphylococcus aureus : O:MRSA Isolated O:[facility] Isolated Organism: 2.1 Antibiotic Interpretation INDIRA Status Ciprofloxacin Ciprofloxacin R F Erythromycin Erythromycin R F Gentamicin Gentamicin S F Levofloxacin Levofloxacin R F Linezolid Linezolid S F Oxacillin Oxacillin R F Penicillin Penicillin R F Rifampin Rifampin S F Tetracycline Tetracycline S F Trimethoprim/Sulfamethoxazol e Trimethoprim/Sulfamethoxazol e S F Vancomycin Vancomycin S F Clindamycin Clindamycin R F Aerobic Culture [address] [place] [address] [id number] Aerobic Culture Organism: Staphylococcus aureus : O:[facility] Is[facility] Organism: 2.1 Antibiotic Interpretation INDIRA Status Ciprofloxacin Ciprofloxacin R F Erythromycin Erythromycin R F Gentamicin Gentamicin S F Levofloxacin Levofloxacin R F Linezolid Linezolid S F Oxacillin Oxacillin R F Penicillin Penicillin R F Rifampin Rifampin S F Tetracycline Tetracycline S F Trimethoprim/Sulfamethoxazol e Trimethoprim/Sulfamethoxazol e S F Vancomycin Vancomycin S F Clindamycin Clindamycin R F Aerobic Culture Postdoctoral Scientist: Heidi Renee PhD, Phone: [phone] Aerobic Culture Organism: Staphylococcus aureus : O:MRSA Isolated O:[facility] Isolated Organism: 2.1 Antibiotic Interpretation INDIRA Status Ciprofloxacin Ciprofloxacin R F Erythromycin Erythromycin R F Gentamicin Gentamicin S F Levofloxacin Levofloxacin R F Linezolid Linezolid S F Oxacillin Oxacillin R F Penicillin Penicillin R F Rifampin Rifampin S F Tetracycline Tetracycline S F Trimethoprim/Sulfamethoxazol e Trimethoprim/Sulfamethoxazol e S F Vancomycin Vancomycin S F Clindamycin Clindamycin R F Aerobic Culture See Below For Report Aerobic Culture Organism: Staphylococcus aureus : O:MRSA Isolated O:[facility] Isolated Organism: 2.1 Antibiotic Interpretation INDIRA Status Ciprofloxacin Ciprofloxacin R F Erythromycin Erythromycin R F Gentamicin Gentamicin S F Levofloxacin Levofloxacin R F Linezolid Linezolid S F Oxacillin Oxacillin R F Penicillin Penicillin R F Rifampin Rifampin S F Tetracycline Tetracycline S F Trimethoprim/Sulfamethoxazol e Trimethoprim/Sulfamethoxazol e S F Vancomycin Vancomycin S F Clindamycin Clindamycin R F Aerobic Culture See Below For Report Aerobic Culture Organism: Staphylococcus aureus : O:MRSA Isolated O:[facility] Isolated Organism: 2.1 Antibiotic Interpretation INDIRA Status Ciprofloxacin Ciprofloxacin R F Erythromycin Erythromycin R F Gentamicin Gentamicin S F Levofloxacin Levofloxacin R F Linezolid Linezolid S F Oxacillin Oxacillin R F Penicillin Penicillin R F Rifampin Rifampin S F Tetracycline Tetracycline S F Trimethoprim/Sulfamethoxazol e Trimethoprim/Sulfamethoxazol e S F Vancomycin Vancomycin S F Clindamycin Clindamycin R F Aerobic Culture See Below For Report Aerobic Culture Organism: Staphylococcus aureus : O:MRSA Isolated O:[facility] Isolated Organism: 2.1 Antibiotic Interpretation INDIRA Status Ciprofloxacin Ciprofloxacin R F Erythromycin Erythromycin R F Gentamicin Gentamicin S F Levofloxacin Levofloxacin R F Linezolid Linezolid S F Oxacillin Oxacillin R F Penicillin Penicillin R F Rifampin Rifampin S F Tetracycline Tetracycline S F Trimethoprim/Sulfamethoxazol e Trimethoprim/Sulfamethoxazol e S F Vancomycin Vancomycin S F Clindamycin Clindamycin R F Aerobic Culture See Below For Report Aerobic Culture Organism: Staphylococcus aureus : O:MRSA Isolated O:[facility] Isolated Organism: 2.1 Antibiotic Interpretation INDIRA Status Ciprofloxacin Ciprofloxacin R F Erythromycin Erythromycin R F Gentamicin Gentamicin S F Levofloxacin Levofloxacin R F Linezolid Linezolid S F Oxacillin Oxacillin R F Penicillin Penicillin R F Rifampin Rifampin S F Tetracycline Tetracycline S F Trimethoprim/Sulfamethoxazol e Trimethoprim/Sulfamethoxazol e S F Vancomycin Vancomycin S F Clindamycin Clindamycin R F Aerobic Culture See Below For Report Aerobic Culture Organism: Staphylococcus aureus : O:MRSA Isolated O:[facility] Isolated Organism: 2.1 Antibiotic Interpretation INDIRA Status Ciprofloxacin Ciprofloxacin R F Erythromycin Erythromycin R F Gentamicin Gentamicin S F Levofloxacin Levofloxacin R F Linezolid Linezolid S F Oxacillin Oxacillin R F Penicillin Penicillin R F Rifampin Rifampin S F Tetracycline Tetracycline S F Trimethoprim/Sulfamethoxazol e Trimethoprim/Sulfamethoxazol e S F Vancomycin Vancomycin S F Clindamycin Clindamycin R F Aerobic Culture See Below For Report Aerobic Culture Organism: Staphylococcus aureus : O:MRSA Isolated O:[facility] Isolated Organism: 2.1 Antibiotic Interpretation INDIRA Status Ciprofloxacin Ciprofloxacin R F Erythromycin Erythromycin R F Gentamicin Gentamicin S F Levofloxacin Levofloxacin R F Linezolid Linezolid S F Oxacillin Oxacillin R F Penicillin Penicillin R F Rifampin Rifampin S F Tetracycline Tetracycline S F Trimethoprim/Sulfamethoxazol e Trimethoprim/Sulfamethoxazol e S F Vancomycin Vancomycin S F Clindamycin Clindamycin R F Aerobic Culture See Below For Report Aerobic Culture Organism: Staphylococcus aureus : O:[facility]SA Isolated O:[facility] Isolated Organism: 2.1 Antibiotic Interpretation INDIRA Status Ciprofloxacin Ciprofloxacin R F Erythromycin Erythromycin R F Gentamicin Gentamicin S F Levofloxacin Levofloxacin R F Linezolid Linezolid S F Oxacillin Oxacillin R F Penicillin Penicillin R F Rifampin Rifampin S F Tetracycline Tetracycline S F Trimethoprim/Sulfamethoxazol e Trimethoprim/Sulfamethoxazol e S F Vancomycin Vancomycin S F Clindamycin Clindamycin R F Aerobic Culture See Below For Report Aerobic Culture Organism: Staphylococcus aureus : O:[facility]SA Isolated O:[facility] Isolated Organism: 2.1 Antibiotic Interpretation INDIRA Status Ciprofloxacin Ciprofloxacin R F Erythromycin Erythromycin R F Gentamicin Gentamicin S F Levofloxacin Levofloxacin R F Linezolid Linezolid S F Oxacillin Oxacillin R F Penicillin Penicillin R F Rifampin Rifampin S F Tetracycline Tetracycline S F Trimethoprim/Sulfamethoxazol e Trimethoprim/Sulfamethoxazol e S F Vancomycin Vancomycin S F Clindamycin Clindamycin R F Aerobic Culture See Below For Report Aerobic Culture Organism: Staphylococcus aureus : O:MRSA Isolated O:[facility] Isolated Organism: 2.1 Antibiotic Interpretation INDIRA Status Ciprofloxacin Ciprofloxacin R F Erythromycin Erythromycin R F Gentamicin Gentamicin S F Levofloxacin Levofloxacin R F Linezolid Linezolid S F Oxacillin Oxacillin R F Penicillin Penicillin R F Rifampin Rifampin S F Tetracycline Tetracycline S F Trimethoprim/Sulfamethoxazol e Trimethoprim/Sulfamethoxazol e S F Vancomycin Vancomycin S F Clindamycin Clindamycin R F Aerobic Culture See Below For Report Aerobic Culture Organism: Staphylococcus aureus : O:MRSA Isolated O:[facility] Isolated Organism: 2.1 Antibiotic Interpretation INDIRA Status Ciprofloxacin Ciprofloxacin R F Erythromycin Erythromycin R F Gentamicin Gentamicin S F Levofloxacin Levofloxacin R F Linezolid Linezolid S F Oxacillin Oxacillin R F Penicillin Penicillin R F Rifampin Rifampin S F Tetracycline Tetracycline S F Trimethoprim/Sulfamethoxazol e Trimethoprim/Sulfamethoxazol e S F Vancomycin Vancomycin S F Clindamycin Clindamycin R F Aerobic Culture See Below For Report Aerobic Culture Organism: Staphylococcus aureus : O:[facility]SA Isolated O:[facility] Isolated Organism: 2.1 Antibiotic Interpretation INDIRA Status Ciprofloxacin Ciprofloxacin R F Erythromycin Erythromycin R F Gentamicin Gentamicin S F Levofloxacin Levofloxacin R F Linezolid Linezolid S F Oxacillin Oxacillin R F Penicillin Penicillin R F Rifampin Rifampin S F Tetracycline Tetracycline S F Trimethoprim/Sulfamethoxazol e Trimethoprim/Sulfamethoxazol e S F Vancomycin Vancomycin S F Clindamycin Clindamycin R F Aerobic Culture See Below For Report Aerobic Culture Organism: Staphylococcus aureus : O:MRSA Isolated O:[facility] Isolated Organism: 2.1 Antibiotic Interpretation INDIRA Status Ciprofloxacin Ciprofloxacin R F Erythromycin Erythromycin R F Gentamicin Gentamicin S F Levofloxacin Levofloxacin R F Linezolid Linezolid S F Oxacillin Oxacillin R F Penicillin Penicillin R F Rifampin Rifampin S F Tetracycline Tetracycline S F Trimethoprim/Sulfamethoxazol e Trimethoprim/Sulfamethoxazol e S F Vancomycin Vancomycin S F Clindamycin Clindamycin R F Aerobic Culture See Below For Report Aerobic Culture Organism: Staphylococcus aureus : O:MRSA Isolated O:[facility] Isolated Organism: 2.1 Antibiotic Interpretation INDIRA Status Ciprofloxacin Ciprofloxacin R F Erythromycin Erythromycin R F Gentamicin Gentamicin S F Levofloxacin Levofloxacin R F Linezolid Linezolid S F Oxacillin Oxacillin R F Penicillin Penicillin R F Rifampin Rifampin S F Tetracycline Tetracycline S F Trimethoprim/Sulfamethoxazol e Trimethoprim/Sulfamethoxazol e S F Vancomycin Vancomycin S F Clindamycin Clindamycin R F Performing Lab: see note LC - [facility] LB SEE REPORT - Heavy Line Technician Id information not found for OBX-specific cath lab technologist legend Anaerobic Culture Reviewed date:10/29/2024 08:25:16 PM Interpretation: Performing Lab: Notes/Report: [facility] , Anaerobic Culture See Below For Report Anaerobic Culture Anaerobic Culture No anaerobic growth in 72 hours. Anaerobic Culture Performing Lab: see note LC - [facility] LB Aerobic Culture Reviewed date:10/28/2024 03:33:01 PM Interpretation: Performing Lab: Notes/Report: [facility] , Aerobic Culture See Below For Report Aerobic Culture Organism: Staphylococcus aureus : O:MRSA Isolated O:[facility] Isolated Organism: 1.1 Antibiotic Interpretation INDIRA Status Aerobic Culture *ABNORMAL* Aerobic Culture Organism: Staphylococcus aureus : O:MRSA Isolated O:[facility] Isolated Organism: 1.1 Antibiotic Interpretation INDIRA Status Aerobic Culture Heavy growth Aerobic Culture Organism: Staphylococcus aureus : O:[facility]SA Isolated O:[facility] Isolated Organism: 1.1 Antibiotic Interpretation INDIRA Status Aerobic Culture Staphylococcus aureus Aerobic Culture Organism: Staphylococcus aureus : O:[facility]SA Isolated O:[facility] Isolated Organism: 1.1 Antibiotic Interpretation INDIRA Status Aerobic Culture Organism: Methicilli n Resis Staph Aureus : Aerobic Culture Organism: Staphylococcus aureus : O:[facility]SA Isolated O:[facility] Isolated Organism: 1.1 Antibiotic Interpretation INDIRA Status Aerobic Culture *ABNORMAL* Aerobic Culture Organism: Staphylococcus aureus : O:[facility]SA Isolated O:[facility] Isolated Organism: 1.1 Antibiotic Interpretation INDIRA Status Aerobic Culture Methicillin - resistant Aerobic Culture Organism: Staphylococcus aureus : O:[facility] Isolated O:[facility] Isolated Organism: 1.1 Antibiotic Interpretation INDIRA Status Aerobic Culture Based on resistance to oxacillin this isolate would be Aerobic Culture Organism: Staphylococcus aureus : O:[facility]SA Isolated O:[facility] Isolated Organism: 1.1 Antibiotic Interpretation INDIRA Status Aerobic Culture resistant to all currently available beta-lactam Aerobic Culture Organism: Staphylococcus aureus : O:[facility]SA Isolated O:[facility] Isolated Organism: 1.1 Antibiotic Interpretation INDIRA Status Aerobic Culture antimicrobial agents , with the exception of the newer Aerobic Culture Organism: Staphylococcus aureus : O:[facility]SA Isolated O:[facility] Isolated Organism: 1.1 Antibiotic Interpretation INDIRA Status Aerobic Culture cephalosporins with anti-MRSA activity, such as Aerobic Culture Organism: Staphylococcus aureus : O:[facility] Isolated O:[facility] Isolated Organism: 1.1 Antibiotic Interpretation INDIRA Status Aerobic Culture Ceftaroline Aerobic Culture Organism: Staphylococcus aureus : O:[facility]SA Isolated O:[facility] Isolated Organism: 1.1 Antibiotic Interpretation INDIRA Status Aerobic Culture Heavy growth Aerobic Culture Organism: Staphylococcus aureus : O:[facility] Isolated O:[facility] Isolated Organism: 1.1 Antibiotic Interpretation INDIRA Status Aerobic Culture Methicillin Resis St aph Aureus Aerobic Culture Organism: Staphylococcus aureus : O:[facility] Isolated O:[facility] Isolated Organism: 1.1 Antibiotic Interpretation INDIRA Status Aerobic Culture See Below For Report Aerobic Culture Organism: Staphylococcus aureus : O:[facility]SA Isolated O:[facility] Isolated Organism: 1.1 Antibiotic Interpretation INDIRA Status Aerobic Culture See Below For Report Aerobic Culture Organism: Staphylococcus aureus : O:[facility]SA Isolated O:[facility] Isolated Organism: 1.1 Antibiotic Interpretation INDIRA Status Aerobic Culture Performed at: [facility] Aerobic Culture Organism: Staphylococcus aureus : O:MRSA Isolated O:[facility] Isolated Organism: 1.1 Antibiotic Interpretation INDIRA Status Aerobic Culture [address], [place] [id number] Aerobic Culture Organism: Staphylococcus aureus : O:[facility] Isolated O:[facility] Isolated Organism: 1.1 Antibiotic Interpretation INDIRA Status Aerobic Culture Postdoctoral Scientist: Heidi Renee PhD, Phone: [phone] Aerobic Culture Organism: Staphylococcus aureus : O:[facility]SA Isolated O:[facility] Isolated Organism: 1.1 Antibiotic Interpretation INDIRA Status Aerobic Culture See Below For Report Aerobic Culture Organism: Staphylococcus aureus : O:[facility] Isolated O:[facility] Isolated Organism: 1.1 Antibiotic Interpretation INDIRA Status Aerobic Culture Ciprofloxacin R F Aerobic Culture Organism: Staphylococcus aureus : O:[facility] Isolated O:[facility] Isolated Organism: 1.1 Antibiotic Interpretation INDIRA Status Aerobic Culture Erythromycin R F Aerobic Culture Organism: Staphylococcus aureus : O:[facility] Isolated O:[facility] Isolated Organism: 1.1 Antibiotic Interpretation INDIRA Status Aerobic Culture Gentamicin S F Aerobic Culture Organism: Staphylococcus aureus : O:[facility] Isolated O:[facility] Isolated Organism: 1.1 Antibiotic Interpretation INDIRA Status Aerobic Culture Levofloxacin R F Aerobic Culture Organism: Staphylococcus aureus : O:[facility] Isolated O:[facility] Isolated Organism: 1.1 Antibiotic Interpretation INDIRA Status Aerobic Culture Linezolid S F Aerobic Culture Organism: Staphylococcus aureus : O:[facility] Isolated O:[facility] Isolated Organism: 1.1 Antibiotic Interpretation INDIRA Status Aerobic Culture Oxacillin R F Aerobic Culture Organism: Staphylococcus aureus : O:[facility] Isolated O:[facility] Isolated Organism: 1.1 Antibiotic Interpretation INDIRA Status Aerobic Culture Penicillin R F Aerobic Culture Organism: Staphylococcus aureus : O:[facility] Isolated O:[facility] Isolated Organism: 1.1 Antibiotic Interpretation INDIRA Status Aerobic Culture Rifampin S F Aerobic Culture Organism: Staphylococcus aureus : O:[facility] Isolated O:[facility] Isolated Organism: 1.1 Antibiotic Interpretation INDIRA Status Aerobic Culture Tetracycline S F Aerobic Culture Organism: Staphylococcus aureus : O:[facility] Isolated O:[facility] Isolated Organism: 1.1 Antibiotic Interpretation INDIRA Status Aerobic Culture Trimethoprim/Sulfame tho xazole S F Aerobic Culture Organism: Staphylococcus aureus : O:[facility] Isolated O:[facility] Isolated Organism: 1.1 Antibiotic Interpretation INDIRA Status Aerobic Culture Vancomycin S F Aerobic Culture Organism: Staphylococcus aureus : O:[facility] Isolated O:[facility] Isolated Organism: 1.1 Antibiotic Interpretation INDIRA Status Aerobic Culture Clindamycin R F Aerobic Culture Organism: Staphylococcus aureus : O:[facility] Isolated O:[facility] Isolated Organism: 1.1 Antibiotic Interpretation INDIRA Status Performing Lab: see note LC - [facility] LB SEE REPORT - Heavy Line Technician Id information not found for OBX-specific cath lab technologist legend TSH Reviewed date:10/23/2024 03:58:06 PM Interpretation: Performing Lab: Notes/Report: [facility] , Thyroid Stimulating Hormone 3.214 0.358-3.740 uIU/mL Performing Lab: see note ML - [facility] LB T4 Reviewed date:10/23/2024 03:58:06 PM Interpretation: Performing Lab: Notes/Report: [facility] , T4 Thyroxine 5.60 4.50-12.10 ug/dL Performing Lab: see note - [facility] LB PROF 14(COMP METB) Reviewed date:10/23/2024 03:58:06 PM Interpretation: Performing Lab: Notes/Report: [facility] , Sodium 139 136-145 mmol/L Potassium 4.9 3.5-5.1 mmol/L Chloride 108 98-107 mmol/L Carbon Dioxide 24.5 21.0-32.0 mmol/L Anion Gap 11.4 Glucose 93 74-106 mg/dL Blood Urea Nitrogen 29.0 7.0-18.0 mg/dL Creatinine 1.34 0.70-1.30 mg/dL Estimated GFR ( Aleyda >60 >=60 mL/min/1.73m 2 Estimated GFR (Non- Ele 52 >=60 mL/min/1.73m 2 BUN Creatinine Ratio 21.6 Calcium 8.7 8.5-10.1 mg/dL Bilirubin Total 0.5 0.2-1.0 mg/dL Aspartate Amino Transferase 17 15-37 U/L Alanine Aminotransferase 35 16-63 U/L Alkaline Phosphatase 75 46-116 U/L Total Protein 6.8 6.4-8.2 g/dL Albumin Level 3.5 3.4-5.0 g/dL Globulin 3.3 Albumin Globulin Ratio 1.1 Performing Lab: see note ML - [facility] LB IRON Reviewed date:10/23/2024 03:58:06 PM Interpretation: Performing Lab: Notes/Report: [facility] , Iron 68.0 65.0-175.0 ug/dL Performing Lab: see note - [facility] LB FREE T3 Reviewed date:10/23/2024 03:58:06 PM Interpretation: Performing Lab: Notes/Report: [facility] , Free T3 2.65 2.18-3.98 pg/mL Performing Lab: see note - [facility] LB MR head/brain wo con Reviewed date:09/15/2024 04:39:28 PM Interpretation: Performing Lab: Notes/Report: Source Facility: [place] [address] Magnetic Resonance Report Signed Patient: JEB RIDDLE MR#: [id number] : 1950 Acct:[id number] Age/Sex: 73 / M ADM Date: 09/14/24 Loc: CARD Attending Dr: Lauren Godwin M.D. Ordering Physician: Lauren Godwin M.D. Date of Service: 09/14/24 Procedure(s): MR head/brain wo con Accession Number(s): [id number] cc: Lauren Godwin M.D. [place] [address] Patient Name: JEB RIDDLE MRN: [id number] date: 1950 Sex: M Assigned Patient Location: CARD Current Patient Location: CARD Accession/Order Number: [id number] Exam Date: 09/14/2024 10:20 Report Date: 09/14/2024 17:27 At the request of: LAUREN GODWIN Procedure: MR head/brain wo con EXAM: MR head/brain wo con HISTORY: Syncope R55 COMPARISON: None. TECHNIQUE: Sagittal T1-weighted and axial T2-weighted, turboFLAIR and diffusion-weighted with ADC map images of the brain were obtained without intravenous contrast. Findings: These images reveal no intracranial mass lesion, mass effect, midline shift or abnormal extraaxial fluid collection. The ventricles and sulci are normal for age. No abnormality of reduced diffusion. Normal intravascular flow voids. Moderate generalized cerebral atrophy. Moderate scattered T2/FLAIR white matter high signal foci suggesting sequelae of small vessel ischemic change/leukoaraiosis. 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 MR/MR head/brain wo con Impression: Age-related changes, without acute intracranial pathology.. Electronically authenticated by: MARIBEL RIDDLE Date: 09/14/2024 17:27 Dictated By: Maribel Riddle M.D. Signed By: 09/14/241728 DD/ 26 TD/TT: Meter/Relay Craftsman: [place] [address] Magnetic Resonance Report Signed Patient: JEB RIDDLE MR#: [id number] : 1950 Acct:[id number] Age/Sex: 73 / M ADM Date: 09/14/24 Loc: CARD Attending Dr: Yasmin Godwin M.D. Ordering Physician: Lauren Godwin M.D. Date of Service: 09/14/24 Procedure(s): MR head/brain wo con Accession Number(s): [id number] cc: Lauren Godwin M.D. [place] [address] Patient Name: JEB RIDDLE MRN: [id number] date: 1950 Sex: M Assigned Patient Location: CARD Current Patient Location: CARD Accession/Order Numb er: [id number] Exam Date: 09/14/2024 10:20 Report Date: 09/14/2024 17:27 At the request of: LAUREN GODWIN Procedure: MR head/brain wo con EXAM: MR head/brain wo con HISTORY: Syncope R55 COMPARISON: None. TECHNIQUE: Sagittal T1-weighted and axial T2-weighted, turboFLAIR and diffusion-weighted w ith ADC map images of the brain were obtained without intravenous contrast. Findings: These imag es reveal no intracranial mass lesion, mass effect, midline shift or abnormal extraaxial fluid collection. The ventricles and sulci are normal for age. No abnormality of reduced diffusion. Normal intravascular flow voids. Moderate generalized cerebral atrophy. Moderate scattered T2/FLAIR white matter high signal foci suggesting sequelae of small vessel ischemic change/leukoaraiosis. 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 MR/MR head/brain wo con Impression: Age-rela ava changes, without acute intracranial pathology.. Electronically authenticated by: MARIBEL RIDDLE Date: 09/14/2024 17:27 Dictated By: Maribel Riddle M.D. Signed By: 09/14/241728 DD/ 26 TD/TT: Meter/Relay Craftsman: [employer] Reviewed date:09/04/2024 07:17:01 PM Interpretation: Performing Lab: Notes/Report: Source Facility: [place] [address] Cardiology Report Signed Patient: JEB RIDDLE MR#: [id number] : 1950 Acct:[id number] Age/Sex: 73 / M ADM Date: 08/31/24 Loc: MS 221-[address]: Lauren Godwin M.D. Ordering Physician: Lauren Godwin M.D. Date of Service: 09/03/24 Procedure(s): CA echo limited Accession Number(s): [id number] cc: Lauren Godwin M.D. Patient Name: JEB RIDDLE MR#: [id number] : 1950 Exam Date: 09/03/2024 Ordering Doctor: DR LAUREN GODWIN . ECHOCARDIOGRAM REPORT PROCEDURE: CA ECHO LIMITED INDICATIONS: NSTEMI, elevated TROP and BNP, acute kidney injury, hypertension, h/o pulmonary embolism COMPARISON: None. DESCRIPTION: Limited ECHOCARDIOGRAM Real-time transthoracic echocardiography with 2D and M-mode performed. QUALITY: Technical quality was good. Limited Echocardiogram per physician order. LEFT VENTRICLE: Normal chamber size. Mild concentric left ventricular hypertrophy. Normal systolic function. No segmental wall motion abnormalities. LV EF: Visual estimation of left ventricular ejection fraction is 65-70%. DIASTOLIC: ATRIAL SEPTUM: LEFT ATRIUM: Normal chamber size. RIGHT ATRIUM: Normal chamber size. RIGHT VENTRICLE: Normal chamber size. Normal systolic function. TRICUSPID VALVE: Normal mobility and thickness. MITRAL VALVE: Normal mobility and thickness. There is no mitral annular calcification. AORTIC VALVE: Normal trileaflet appearance. Normal leaflet mobility. AORTIC ROOT: Normal diameter and appearance. PULMONIC VALVE: Normal thickness and mobility. PERICARDIUM: No evidence of pericardial effusion. IVC: Within normal limits. PLEURA: CONCLUSION: 1. Mild concentric left ventricular hypertrophy with normal systolic function and no wall motion abnormalities. LVEF is estimated at 65 to 70%. 2. Normal right ventricular size and systolic function. 3. No pericardial effusion. 4. Limited study performed with no Doppler interrogation as requested. Adult Echocardiography Procedure Report Left Ventricle LVEDD (3.7 - 5.6 cm): 4.50 cm LVESD (2.2 - 4.0 cm): 3.40 cm LVIVS thickness (0.6 - 1.2 cm): 1.07 cm LVPW thickness (0.5 - 1.0 cm): 1.06 cm LVOT Diameter 2.47 cm Left Atrium LA Volume Index (2D A2C): 29.47 ml/m2 Left Atrium Systolic Dimension: 3.45 cm Mitral Valve Right Ventricle Aorta AO Root Diam: 4.22 cm Aortic Valve Tricuspid Valve Pulmonic Valve Right Atrium Right Atrium Systolic Pressure: 29.48 ml, 26.98 ml, 31.98 ml Dictated by: Jessica Forrester M.D. on 09/04/2024 at 18:51 Approved by: Jessica Forrester M.D. on 09/04/2024 at 18:52 Dictated By: JESSICA FORRESTER Signed By: 09/04/241852 DD/ 52 TD/TT: Meter/Relay Craftsman: [place] [address] Cardiology Report Signed Patient: JEB RIDDLE MR#: [id number] : 1950 Acct:[id number] Age/Sex: 73 / M ADM Date: 08/31/24 Loc: MS 221-[address]: Yasmin Godwin M.D. Ordering Physician: Lauren Godwin M.D. Date of Service: 09/03/24 Procedure(s): CA ech o limited Accession Number(s): [id number] cc: Lauren Godwin M.D. Patient Name: JEB RIDDLE MR#: [id number] : 1950 Exam Date: 09/03/2024 Ordering Doctor: DR LAUREN GODWIN . ECHOCARDIOGRAM REPORT PROCEDURE: CA ECHO LIMITED INDICATIONS: NSTEMI, elevated TROP and BNP, acute kidney injury, hypertension, h/o pulmonary embolism COMPARISON: None. DESCRIPTION: Limited ECHOCARDIOGRAM Real-time transthoracic echocardiography wit h 2D and M-mode performed. QUALITY: Technical quality was good. Limited Echocardiogram per physician order. LEFT VENTRICLE: Norm al chamber size. Mild concentric left ventricular hypertrophy. Normal systolic function. No segmental wall motion abnormalities. LV EF: Visual estimation of left ventricular ejection fraction is 65-70%. DIASTOLIC: ATRIAL SEPTUM: LEFT ATRIUM: Normal chamber size. RIGHT ATRIUM: Normal chamber size. RIGHT VENTRICLE: Nor mal chamber size. Normal systolic function. TRICUSPID VALVE: Nor mal mobility and thickness. MITRAL VALVE: Normal mobility and thickness. There is no mitral annular calcification. AORTIC VALVE: Normal trileaflet appearance. Normal leaflet mobility. AORTIC ROOT: Normal diameter and appearance. PULMONIC VALVE: Norm al thickness and mobility. PERICARDIUM: No evidence of pericardial effusion. IVC: Within normal limits. PLEURA: CONCLUSION: 1. Mild concentric l eft ventricular hypertrophy with normal systolic function and no wall motion abnormalities. LVEF is estimated at 65 to 70%. 2. Normal right ventricular size and systolic function. 3. No pericardial effusion. 4. Limited study performed with no Doppler interrogation as requested. Adult Echocardiograp hy Procedure Report Left Ventricle LVEDD (3.7 - 5.6 cm) : 4.50 cm LVESD (2.2 - 4.0 cm) : 3.40 cm LVIVS thickness (0.6 - 1.2 cm): 1.07 cm LVPW thickness (0.5 - 1.0 cm): 1.06 cm LVOT Diameter 2.47 cm Left Atrium LA Volume Index (2D A2C): 29.47 ml/m2 Left Atrium Systolic Dimension: 3.45 cm Mitral Valve Right Ventricle Aorta AO Root Diam: 4.22 cm Aortic Valve Tricuspid Valve Pulmonic Valve Right Atrium Right Atrium Systoli c Pressure: 29.48 ml, 26.98 ml, 31.98 ml Dictated by: Jessica Forrester M.D. on 09/04/2024 at 18:51 Approved by: Jessica Forrester M.D. on 09/04/2024 at 18:52 Dictated By: JESSICA FORRESTER Signed By: 09/04/241852 DD/ 52 TD/TT: Meter/Relay Craftsman: ECG 12 lead Reviewed date:09/05/2024 03:55:07 PM Interpretation: Performing Lab: Notes/Report: Source Facility: [place] [address] [place] [address] Electrocardiograph Report Signed Patient: JEB RIDDLE MR#: [id number] : 1950 Acct:[id number] Age/Sex: 73 / M ADM Date: 08/31/24 Loc: MS 221-[address]: Lauren Godwin M.D. Ordering Physician: Lauren Godwin M.D. 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 Signed By: 09/04/242048 DD/ 4 TD/TT: Meter/Relay Craftsman: [place] [address] Electrocardiograph Report Signed Patient: JEB RIDDLE MR#: [id number] : 1950 Acct:[id number] Age/Sex: 73 / M ADM Date: 08/31/24 Loc: MS 221-[address]: Yasmin Godwin M.D. Ordering Physician: Lauren Godwin M.D. 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 Signed By: 09/04/242048 DD/ 4 TD/TT: Meter/Relay Craftsman: PROF OLGA May ([facility]) Reviewed date:09/03/2024 01:52:37 PM Interpretation: Performing Lab: Notes/Report: [facility] , Sodium 142 136-145 mmol/L Potassium 4.3 3.5-5.1 mmol/L Chloride 107 98-107 mmol/L Carbon Dioxide 28.9 21.0-32.0 mmol/L Anion Gap 10.4 Glucose 185 74-106 mg/dL Blood Urea Nitrogen 32.0 7.0-18.0 mg/dL Creatinine 1.39 0.70-1.30 mg/dL Estimated GFR ( Aleyda >60 >=60 mL/min/1.73m 2 Estimated GFR (Non- Ele 50 >=60 mL/min/1.73m 2 BUN Creatinine Ratio 23.0 Calcium 8.3 8.5-10.1 mg/dL Performing Lab: see note ML - [facility] LB CBC AUTO DIFF Reviewed date:09/03/2024 01:52:37 PM Interpretation: Performing Lab: Notes/Report: [facility] , White Blood Count 6.9 4.0-11.0 10 3/uL Red Blood Count 3.78 4.70-6.10 10 6/uL Hemoglobin 12.3 14.0-18.0 g/dL Hematocrit 36.3 42.0-54.0 % Mean Corpuscular Volume 96.0 80.0-94.0 fL Mean Corpuscular Hemoglobin 32.5 25.9-34.0 pg Mean Corpuscular HGB Conc 33.9 29.9-35.2 g/dL Red Cell Distribution Width 12.8 11.0-15.0 % Platelet Count 177 150-450 10 3/uL Mean Platelet Volume 10.0 9.5-13.5 fL Neutrophils Percent Auto 71.4 43.0-75.0 % Lymphocytes Percent Auto 22.1 20.5-60.0 % Monocytes Percent Auto 5.2 1.7-12.0 % Eosinophils Percent Auto 0.9 0.9-7.0 % Basophils Percent Auto 0.0 0.2-2.0 % Immature Granulocytes Pct Auto 0.4 0.0-0.5 % Neutrophils Absolute Auto 4.9 1.4-6.5 10 3/uL Lymphocytes Absolute Auto 1.5 1.2-3.8 10 3/uL Monocytes Absolute Auto 0.4 0.3-0.8 10 3/uL Eosinophils Absolute Auto 0.1 0.0-0.7 10 3/uL Basophils Absolute Auto 0.0 0.0-0.1 10 3/uL Immature Granulocytes Abs Auto 0.03 0.00-0.03 10 3/uL Performing Lab: see note ML - [facility] LB BNP Reviewed date:09/02/2024 02:45:20 PM Interpretation: Performing Lab: Notes/Report: [facility] , NT Pro B Type Natriuretic Pept 1874.0 <=900.0 pg/mL RESULTS CALLED TO LUCILA PRICE RN ON [facility] BY Mansi Parikh at 0710 Performing Lab: see note ML - [facility] LB PTT HEPARIN MONITOR Reviewed date:09/02/2024 02:45:20 PM Interpretation: Performing Lab: Notes/Report: [facility] , PTT Heparin Monitor 66.1 43.5-61.5 sec RESULTS CALLED TO [facility] Darleen Mason RN @BY Nicholas Amezquita MT at 2012 Performing Lab: see note ML - [facility] LB PTT HEPARIN MONITOR Reviewed date:09/02/2024 02:45:20 PM Interpretation: Performing Lab: Notes/Report: [facility] , PTT Heparin Monitor 48.2 43.5-61.5 sec Performing Lab: see note ML - [facility] LB Troponin I High Sensitivity Reviewed date:09/02/2024 02:45:20 PM Interpretation: Performing Lab: Notes/Report: [facility] , Troponin I High Sensitivity 438.0 4.0-76.1 pg/mL RESULTS CALLED TO ELVIA ALLRED RN AT 1014 CUT-OFF POINTS HAVE BEEN ESTABLISHED BASED ON THE FOURTH UNIVERSAL DEFINITION OF MYOCARDIAL INFARCTION. THE UPPER REFERENCE LIMIT (URL) OF TROPONIN, DEFINED THE 99TH PERCENTILE OF cTnI DISTRIBUTION IN A REFERENCE POPULATION, HAS BEEN CONFIRMED THE DECISION THRESHOLD FOR CT DIAGNOSIS. 99TH PERCENTILE = 76.2 PG/ML NOTE: HIGH-SENSITIVITY TROPONIN ASSAY IS NOT INTENDED TO BE USED IN ISOLATION BUT SHOULD BE INTERPRETED IN CONJUNCTION WITH OTHER DIAGNOSTIC AND CLINICAL INFORMATION. Performing Lab: see note ML - [facility] LB XR acute abdomen series Reviewed date:09/02/2024 02:45:20 PM Interpretation: Performing Lab: Notes/Report: Source Facility: [place] [address] [place] [address] XRay Report Signed Patient: JEB RIDDLE MR#: [id number] : 1950 Acct:[id number] Age/Sex: 73 / M ADM Date: 08/31/24 Loc: ICU 270-[address]: Lauren Godwin M.D. Ordering Physician: Lauren Godwin M.D. Date of Service: 09/01/24 Procedure(s): XR acute abdomen series Accession Number(s): [id number] cc: Lauren Godwin M.D. [place] [address] Patient Name: JEB RIDDLE MRN: [id number] date: 1950 Sex: M Assigned Patient Location: ICU Current Patient Location: ICU Accession/Order Number: [id number] Exam Date: 09/01/2024 07:15 Report Date: 09/01/2024 08:20 At the request of: LAUREN GODWIN Procedure: XR acute abdomen series Exam: Radiographs: XR acute abdomen series Reason for exam: follow up sbo Comparison: Plain films from 08/30/2024 XR/XR acute abdomen series IMPRESSION: No free intraperitoneal air. No gas-filled dilated loops of small bowel or colon. No gaseous dilation of the stomach. No fecal impaction. Right nephrolithiasis. Hyperinflation of both lungs. Remainder unremarkable. Electronically authenticated by: ADITYA OATES Date: 09/01/2024 08:20 Dictated By: Aditya Oates M.D. Signed By: 09/01/24821 DD/ 9 TD/TT: Meter/Relay Craftsman: [place] [address] XRay Report Signed Patient: JEB RIDDLE MR#: [id number] : 1950 Acct:[id number] Age/Sex: 73 / M ADM Date: 08/31/24 Loc: ICU 270-[address]: Yasmin Godwin M.D. Ordering Physician: Lauren Godwin M.D. Date of Service: 09/01/24 Procedure(s): XR acu te abdomen series Accession Number(s): [id number] cc: Lauren Godwin M.D. [place] [id number] Patient Name: JEB RIDDLE MRN: [id number] date: 1950 Sex: M Assigned Patient Location: ICU Current Patient Location: ICU Accession/Order Numb er: [id number] Exam Date: 09/01/2024 07:15 Report Date: 09/01/2024 08:20 At the request of: LAUREN GODWIN Procedure: XR acute abdomen series Exam: Radiographs: X R acute abdomen series Reason for exam: fol low up sbo Comparison: Plain fi lms from 08/30/2024 XR/XR acute abdomen series IMPRESSION: No free intraperiton eal air. No gas-filled dilated loops of small bowel or colon. No gaseous dilation of the stomach. No fecal impaction. Right nephrolithiasis. Hyperinflation of alex th lungs. Remainder unremarkable. Electronically authenticated by: ADITYA OATES Date: 09/01/2024 08:20 Dictated By: Marcello Oates M.D. Signed By: 09/01/24 08 DD/ 9 TD/TT: Meter/Relay Craftsman: ECG 12 lead Reviewed date:09/03/2024 07:13:00 PM Interpretation: Performing Lab: Notes/Report: Source Facility: [place] [address] [place] [address] Electrocardiograph Report Signed Patient: JEB RIDDLE MR#: [id number] : 1950 Acct:[id number] Age/Sex: 73 / M ADM Date: 08/31/24 Loc: MS 221-[address]: Lauren Godwin M.D. Ordering Physician: Lauren Godwin M.D. 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 Signed By: 09/03/24 175 DD/ 0747 TD/TT: Meter/Relay Craftsman: [place] [address] Electrocardiograph Report Signed Patient: JEB RIDDLE MR#: [id number] : 1950 Acct:[id number] Age/Sex: 73 / M ADM Date: 08/31/24 Loc: MS 221-[address]: Yasmin Godwin M.D. Ordering Physician: Lauren Godwin M.D. 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 Signed By: 09/03/24 1750 DD/ 0747 TD/TT: Meter/Relay Craftsman: PTT HEPARIN MONITOR Reviewed date:09/02/2024 02:45:20 PM Interpretation: Performing Lab: Notes/Report: [facility] , PTT Heparin Monitor 35.3 43.5-61.5 sec RESULTS CALLED TO ELVIA ALLRED RN AT 0819 Performing Lab: see note ML - [facility] LB BNP Reviewed date:09/02/2024 02:45:20 PM Interpretation: Performing Lab: Notes/Report: [facility] , NT Pro B Type Natriuretic Pept 2325.0 <=900.0 pg/mL RESULTS CALLED TO COLTON ALLRED RN AT 0741 Performing Lab: see note ML - [facility] LB ECG 12 lead Reviewed date:09/03/2024 07:13:00 PM Interpretation: Performing Lab: Notes/Report: Source Facility: [facility] [place] [address] [place] [address] Electrocardiograph Report Signed with Edmar Patient: JEB RIDDLE MR#: [id number] : 1950 Acct:[id number] Age/Sex: 73 / M ADM Date: 08/31/24 Loc: MS 221-[address]: Lauren Godwin M.D. Ordering Physician: Lauren Godwin M.D. 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 Compared to previous tracing, rate much improved. Electronically Signed On 09-03-2024 17:46:26 EST by EDER MCNAIR Addendum Dictated By: Eder Mcnair D.O. 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 Signed By: 09/03/24 1741 DD/ 31 TD/TT: Meter/Relay Craftsman: [place] [address] Electrocardiograph Report Signed with Addenda Patient: JEB RIDDLE MR#: [id number] : 1950 Acct:[id number] Age/Sex: 73 / M ADM Date: 08/31/24 Loc: MS 221-[address]: Yasmin Godwin M.D. Ordering Physician: Lauren Godwin M.D. 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 Compared to previous tracing, rate much improved. Electronically Johana d On 09-03-2024 17:46:26 EST by EDER MCNAIR Addendum Dictated By : Eder Mcnair D.O. 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 Signed By: 09/03/24 1741 DD/ 1532 TD/TT: Meter/Relay Craftsman: CT abdomen pelvis w con Reviewed date:08/31/2024 09:11:51 AM Interpretation: Performing Lab: Notes/Report: Source Facility: [place] [address] CT Scan Report Signed Patient: JEB RIDDLE MR#: [id number] : 1950 Acct:[id number] Age/Sex: 73 / M ADM Date: 08/31/24 Loc: ER Attending Dr: Ordering Physician: Warner Maradiaga Date of Service: 08/31/24 Procedure(s): CT abdomen pelvis w con Accession Number(s): [id number] cc: Lauren Godwin M.D. [place] [address] Patient Name: JEB RIDDLE MRN: [id number] date: 1950 Sex: M Assigned Patient Location: ER Current Patient Location: ER Accession/Order Number: [id number] Exam Date: 08/31/2024 03:25 Report Date: 08/31/2024 04:06 At the request of: WARNER MARADIAGA Procedure: CT abdomen pelvis w con EXAM: CT angio chest, CT abdomen pelvis w con , 08/31/2024 HISTORY: chest pain abdominal pain. COMPARISON: CTA chest, O805 2023. TECHNIQUE: IV contrast enhanced CTA imaging the chest, abdomen and pelvis with MIP and MPR images. Dose reduction techniques were achieved by using automated exposure control and/or adjustment of mA and/or kV according to patient size and/or use of iterative reconstruction technique. FINDINGS: CTA CHEST: No acute pulmonary embolism. Normal cardiac size. No pericardial effusion. Minimal coronary arterial calcification in the LAD. Pulsation artifact degrading the ascending aorta. Mild thoracic aortic calcifications. Otherwise unremarkable thoracic aorta and arch vessels. No dissection or aneurysm. Unremarkable thyroid and esophagus. Negative for thoracic adenopathy. Mild pulmonary emphysema with mild anterior bibasilar linear fibrotic scarring. No acute pulmonary abnormality. No acute osseous findings in the chest. CTA ABDOMEN: Fairly prominent aortic calcifications without aneurysm or dissection. Unremarkable celiac axis, superior mesenteric artery, left renal artery and inferior mesenteric artery. Right renal artery and accessory right renal artery are somewhat diminutive but otherwise unremarkable on image 108. No acute vascular abnormality or active bleeding is seen. The liver, gallbladder, pancreas, spleen and adrenal glands appear unremarkable. There is a large peripelvic cyst measuring 9 cm on image 118. There are numerous nonobstructing renal calculi measuring up to 10 mm in the lateral midpole. There is a 9 mm stone in the posterior midpole of the left kidney. Left renal cysts measure up to 3.6 cm in the posterior lower pole. The left kidney is otherwise unremarkable. There are gas and fluid-filled distended small bowel loops extending into the lateral right upper pelvis where a transition point is seen on images 156 through 158 of series 4. The small bowel becomes decompressed with wall thickening at this level, extending to the neoterminal ileum. There are prominent aortic calcifications without aneurysm. The IVC appears normal. Surgical scarring is seen in the subcutaneous fat of the anterior abdominal wall. CTA PELVIS: No acute vascular injury or active bleeding is seen. Fairly prominent atherosclerotic calcifications are noted. There appears to be prior removal of the cecum with anastomosis near the ileocecal junction. Inflammatory changes are noted in the terminal ileum. There is scattered pancolonic diverticulosis, most prominent in the sigmoid. The prostate is enlarged. The urinary bladder is unremarkable. No free fluid, loculated fluid, free air or soft tissue gas is seen in the abdomen or pelvis. There is fairly advanced degenerative disc disease at L5-S1. No acute osseous abnormality or suspicious bony lesion is seen. CT/CT abdomen pelvis w con IMPRESSION: 1. No acute pulmonary embolism, aortic dissection, or other acute findings in the chest. 2. No acute vascular abnormality in the abdomen or pelvis. 3. Small bowel obstruction with transition point in the lateral right upper pelvis. The small bowel becomes decompressed with wall thickening at this level, extending to the neoterminal ileum suspicious for acute exacerbation of the patient's known Crohn's disease. No other acute findings are seen in the abdomen or pelvis. 4. Prior cecal resection with anastomosis near the ileocecal junction. 5. Pancolonic diverticulosis. 6. Nonobstructing bilateral renal calculi. 7. Prostatomegaly. Additional nonemergent findings are present, as above. Electronically authenticated by: ALLI SULLIVAN Date: 08/31/2024 04:06 Dictated By: Alli Sullivan M.D. Signed By: 08/31/24408 DD/ 5 TD/TT: Meter/Relay Craftsman: [address] [id number] [address] Scan Report Signed Patient: JEB RIDDLE MR#: [id number] : 1950 Acct:[id number] Age/Sex: 73 / M ADM Date: 08/31/24 Loc: ER Attending Dr: Ordering Physician: Warner Maradiaga Date of Service: 08/31/24 Procedure(s): CT abdomen pelvis w con Accession Number(s): [id number] cc: Lauren Godwin M.D. [place] [address] Patient Name: JEB RIDDLE MRN: [id number] date: 1950 Sex: M Assigned Patient Location: ER Current Patient Location: ER Accession/Order Numb er: [id number] Exam Date: 08/31/2024 03:25 Report Date: 08/31/2024 04:06 At the request of: WARNER MARADIAGA Procedure: CT abdome n pelvis w con EXAM: CT angio chest , CT abdomen pelvis w con , 08/31/2024 HISTORY: chest pain abdominal pain. COMPARISON: CTA ches t, O805 2023. TECHNIQUE: IV contra st enhanced CTA imaging the chest, abdomen and pelvis with MIP and MPR images. Dose reduction techniques were achieved by using automated exposure control and /or adjustment of mA and/or kV according to patient size and/or use of iterat maría reconstruction technique. FINDINGS: CTA CHEST: No acute pulmonary embolism. Normal cardiac size. No pericardial effusion. Minimal coronary arterial calcification in the LAD. Pulsation artifact degrading the ascending aorta. Mild thoracic aortic calcifications. Otherwise unremarkable thoracic aorta and arch vessels. No dissection or aneurysm. Unremarkable thyroid and esophagus. Negative for thoracic adenopathy. Mild pulmonary emphysema with mild anterior bibasilar linear fibrotic scarring. No acute pulmonary abnormality. No acute osseous findings in the chest. CTA ABDOMEN: Fairly prominent aortic calcifications without aneurysm or dissection. Unremarkable celiac axis, superior mesenteric artery, left renal artery and inferior mesenteric artery. Right renal artery and accessory right renal artery are somewhat diminutive but otherwise unremarkable on image 108. No acute vascular abnormality or active bleeding is seen. The liver, gallbladd er, pancreas, spleen and adrenal glands appear unremarkable. There is a large peripelvic cyst measuring 9 cm on image 118. There are numerous nonobstruct ing renal calculi measuring up to 10 mm in the lateral midpole. There is a 9 mm stone in the posterior midpole of the left kidney. Left renal cysts measure up to 3.6 cm in the posterior lower pole. The left kidney is otherwise unremarkable. There are gas and fluid-filled distended small bowel loops extending into the lateral right upper pelvis where a transition point is seen on images 156 through 158 of serie s 4. The small bowel becomes decompressed with wall thickening at this level, extending to the neoterminal ileum. There are prominent aortic calcifications without aneurysm. The IVC appears normal. Surgical scarring is seen in the subcutaneous fat of the anterior abdominal wall. CTA PELVIS: No acute vascular injury or active bleeding is seen. Fairly prominent atherosclerotic calcifications are noted. There appears to be prior removal of the cecum with anastomosis near the ileocecal junction. Inflammatory changes are noted in the terminal ileum. There is scattered pancolonic diverticulosis, most prominent in the sigmoid. The prostate is enlarged. The urinary bladder is unremarkable. No free fluid, loculated fluid, free air or soft tissue gas is seen in the abdomen or pelvis. There is fairly advanced degenerative disc disease at L5-S1. No acute osseous abnormality or suspicious bony lesion is seen. CT/CT abdomen pelvis w con IMPRESSION: 1. No acute pulmonar y embolism, aortic dissection, or other acute findings in the chest. 2. No acute vascular abnormality in the abdomen or pelvis. 3. Small bowel obstruction with transition point in the lateral right upper pelvis. The small alex wel becomes decompressed with wall thickening at this level, extending to the neoterminal ileum suspicious for acute exacerbation of the patient's known Crohn's disease. No other acute findings are seen in the abdomen or pelvis. 4. Prior cecal resection with anastomosis near the ileocecal junction. 5. Pancolonic diverticulosis. 6. Nonobstructing bilateral renal calculi. 7. Prostatomegaly. Additional nonemergent findings are present, as above. Electronically authenticated by: ALLI SULLIVAN Date: 08/31/2024 04:06 Dictated By: Alli Sullivan M.D. Signed By: 08/31/24408 DD/ 5 TD/TT: Meter/Relay Craftsman: CT angio chest Reviewed date:08/31/2024 09:11:51 AM Interpretation: Performing Lab: Notes/Report: Source Facility: [place] [address] CT Scan Report Signed Patient: JEB RIDDLE MR#: [id number] : 1950 Acct:[id number] Age/Sex: 73 / M ADM Date: 08/31/24 Loc: ER Attending Dr: Ordering Physician: Warner Maradaiga Date of Service: 08/31/24 Procedure(s): CT angio chest Accession Number(s): [id number] cc: Lauren Godwin M.D. [place] [address] Patient Name: JEB RIDDLE MRN: [id number] date: 1950 Sex: M Assigned Patient Location: ER Current Patient Location: ER Accession/Order Number: [id number] Exam Date: 08/31/2024 03:25 Report Date: 08/31/2024 04:06 At the request of: WARNER MARADIAGA Procedure: CT angio chest EXAM: CT angio chest, CT abdomen pelvis w con , 08/31/2024 HISTORY: chest pain abdominal pain. COMPARISON: CTA chest, O805 4. TECHNIQUE: IV contrast enhanced CTA imaging the chest, abdomen and pelvis with MIP and MPR images. Dose reduction techniques were achieved by using automated exposure control and/or adjustment of mA and/or kV according to patient size and/or use of iterative reconstruction technique. FINDINGS: CTA CHEST: No acute pulmonary embolism. Normal cardiac size. No pericardial effusion. Minimal coronary arterial calcification in the LAD. Pulsation artifact degrading the ascending aorta. Mild thoracic aortic calcifications. Otherwise unremarkable thoracic aorta and arch vessels. No dissection or aneurysm. Unremarkable thyroid and esophagus. Negative for thoracic adenopathy. Mild pulmonary emphysema with mild anterior bibasilar linear fibrotic scarring. No acute pulmonary abnormality. No acute osseous findings in the chest. CTA ABDOMEN: Fairly prominent aortic calcifications without aneurysm or dissection. Unremarkable celiac axis, superior mesenteric artery, left renal artery and inferior mesenteric artery. Right renal artery and accessory right renal artery are somewhat diminutive but otherwise unremarkable on image 108. No acute vascular abnormality or active bleeding is seen. The liver, gallbladder, pancreas, spleen and adrenal glands appear unremarkable. There is a large peripelvic cyst measuring 9 cm on image 118. There are numerous nonobstructing renal calculi measuring up to 10 mm in the lateral midpole. There is a 9 mm stone in the posterior midpole of the left kidney. Left renal cysts measure up to 3.6 cm in the posterior lower pole. The left kidney is otherwise unremarkable. There are gas and fluid-filled distended small bowel loops extending into the lateral right upper pelvis where a transition point is seen on images 156 through 158 of series 4. The small bowel becomes decompressed with wall thickening at this level, extending to the neoterminal ileum. There are prominent aortic calcifications without aneurysm. The IVC appears normal. Surgical scarring is seen in the subcutaneous fat of the anterior abdominal wall. CTA PELVIS: No acute vascular injury or active bleeding is seen. Fairly prominent atherosclerotic calcifications are noted. There appears to be prior removal of the cecum with anastomosis near the ileocecal junction. Inflammatory changes are noted in the terminal ileum. There is scattered pancolonic diverticulosis, most prominent in the sigmoid. The prostate is enlarged. The urinary bladder is unremarkable. No free fluid, loculated fluid, free air or soft tissue gas is seen in the abdomen or pelvis. There is fairly advanced degenerative disc disease at L5-S1. No acute osseous abnormality or suspicious bony lesion is seen. CT/CT angio chest IMPRESSION: 1. No acute pulmonary embolism, aortic dissection, or other acute findings in the chest. 2. No acute vascular abnormality in the abdomen or pelvis. 3. Small bowel obstruction with transition point in the lateral right upper pelvis. The small bowel becomes decompressed with wall thickening at this level, extending to the neoterminal ileum suspicious for acute exacerbation of the patient's known Crohn's disease. No other acute findings are seen in the abdomen or pelvis. 4. Prior cecal resection with anastomosis near the ileocecal junction. 5. Pancolonic diverticulosis. 6. Nonobstructing bilateral renal calculi. 7. Prostatomegaly. Additional nonemergent findings are present, as above. Electronically authenticated by: ALLI SULLIVAN Date: 08/31/2024 04:06 Dictated By: Alli Sullivan M.D. Signed By: 08/31/24408 DD/ 5 TD/TT: Meter/Relay Craftsman: [address] [address] [address] Scan Report Signed Patient: JEB RIDDLE MR#: [id number] : 1950 Acct:[id number] Age/Sex: 73 / M ADM Date: 08/31/24 Loc: ER Attending Dr: Ordering Physician: Warner Maradiaga Date of Service: 08/31/24 Procedure(s): CT ang io chest Accession Number(s): [id number] cc: Lauren Godwin M.D. [place] [address] Patient Name: JEB RIDDLE MRN: [facility]:[id number] date: 1950 Sex: M Assigned Patient Location: ER Current Patient Location: ER Accession/Order Numb er: [id number] Exam Date: 08/31/2024 03:25 Report Date: 08/31/2024 04:06 At the request of: WARNER MARADIAGA Procedure: CT angio chest EXAM: CT angio chest , CT abdomen pelvis w con , 08/31/2024 HISTORY: chest pain abdominal pain. COMPARISON: CTA ches t, O805 2023. TECHNIQUE: IV contra st enhanced CTA imaging the chest, abdomen and pelvis with MIP and MPR images. Dose reduction techniques were achieved by using automated exposure control and /or adjustment of mA and/or kV according to patient size and/or use of iterat maría reconstruction technique. FINDINGS: CTA CHEST: No acute pulmonary embolism. Normal cardiac size. No pericardial effusion. Minimal coronary arterial calcification in the LAD. Pulsation artifact degrading the ascending aorta. Mild thoracic aortic calcifications. Otherwise unremarkable thoracic aorta and arch vessels. No dissection or aneurysm. Unremarkable thyroid and esophagus. Negative for thoracic adenopathy. Mild pulmonary emphysema with mild anterior bibasilar linear fibrotic scarring. No acute pulmonary abnormality. No acute osseous findings in the chest. CTA ABDOMEN: Fairly prominent aortic calcifications without aneurysm or dissection. Unremarkable celiac axis, superior mesenteric artery, left renal artery and inferior mesenteric artery. Right renal artery and accessory right renal artery are somewhat diminutive but otherwise unremarkable on image 108. No acute vascular abnormality or active bleeding is seen. The liver, gallbladd er, pancreas, spleen and adrenal glands appear unremarkable. There is a large peripelvic cyst measuring 9 cm on image 118. There are numerous nonobstruct ing renal calculi measuring up to 10 mm in the lateral midpole. There is a 9 mm stone in the posterior midpole of the left kidney. Left renal cysts measure up to 3.6 cm in the posterior lower pole. The left kidney is otherwise unremarkable. There are gas and fluid-filled distended small bowel loops extending into the lateral right upper pelvis where a transition point is seen on images 156 through 158 of serie s 4. The small bowel becomes decompressed with wall thickening at this level, extending to the neoterminal ileum. There are prominent aortic calcifications without aneurysm. The IVC appears normal. Surgical scarring is seen in the subcutaneous fat of the anterior abdominal wall. CTA PELVIS: No acute vascular injury or active bleeding is seen. Fairly prominent atherosclerotic calcifications are noted. There appears to be prior removal of the cecum with anastomosis near the ileocecal junction. Inflammatory changes are noted in the terminal ileum. There is scattered pancolonic diverticulosis, most prominent in the sigmoid. The prostate is enlarged. The urinary bladder is unremarkable. No free fluid, loculated fluid, free air or soft tissue gas is seen in the abdomen or pelvis. There is fairly advanced degenerative disc disease at L5-S1. No acute osseous abnormality or suspicious bony lesion is seen. CT/CT angio chest IMPRESSION: 1. No acute pulmonar y embolism, aortic dissection, or other acute findings in the chest. 2. No acute vascular abnormality in the abdomen or pelvis. 3. Small bowel obstruction with transition point in the lateral right upper pelvis. The small alex wel becomes decompressed with wall thickening at this level, extending to the neoterminal ileum suspicious for acute exacerbation of the patient's known Crohn's disease. No other acute findings are seen in the abdomen or pelvis. 4. Prior cecal resection with anastomosis near the ileocecal junction. 5. Pancolonic diverticulosis. 6. Nonobstructing bilateral renal calculi. 7. Prostatomegaly. Additional nonemergent findings are present, as above. Electronically authenticated by: ALLI SULLIVAN Date: 08/31/2024 04:06 Dictated By: Alli Sullivan M.D. Signed By: 08/31/24 0409 DD/ 5 TD/TT: Meter/Relay Craftsman: Prothrombin Time INR Reviewed date:09/02/2024 02:45:21 PM Interpretation: Performing Lab: Notes/Report: [facility] , Prothrombin Time 11.4 9.0-11.6 sec INR 1.08 DESIRED INR: 2.0-3.0 CONDITIONS NOT LISTED BELOW 2.5-3.5 FOR PROSTHETIC HEART VALVE REPLACEMENT 2.5-3.5 RECURRENT THROMBOSIS Performing Lab: see note ML - [facility] LB PTT Reviewed date:09/02/2024 02:45:21 PM Interpretation: Performing Lab: Notes/Report: [facility] , Partial Thromboplastin Time 26.1 22.3-36.2 sec Performing Lab: see note ML - [facility] LB MAGNESIUM Reviewed date:08/31/2024 09:11:51 AM Interpretation: Performing Lab: Notes/Report: [facility] , Magnesium 1.5 1.8-2.4 mg/dL Performing Lab: see note ML - [facility] LB CBC AUTO DIFF Reviewed date:08/31/2024 09:11:51 AM Interpretation: Performing Lab: Notes/Report: [facility] , White Blood Count 8.5 4.0-11.0 10 3/uL Red Blood Count 4.30 4.70-6.10 10 6/uL Hemoglobin 13.9 14.0-18.0 g/dL Hematocrit 40.5 42.0-54.0 % Mean Corpuscular Volume 94.2 80.0-94.0 fL Mean Corpuscular Hemoglobin 32.3 25.9-34.0 pg Mean Corpuscular HGB Conc 34.3 29.9-35.2 g/dL Red Cell Distribution Width 12.7 11.0-15.0 % Platelet Count 230 150-450 10 3/uL Mean Platelet Volume 9.8 9.5-13.5 fL Neutrophils Percent Auto 89.5 43.0-75.0 % Lymphocytes Percent Auto 9.5 20.5-60.0 % Monocytes Percent Auto 0.6 1.7-12.0 % Eosinophils Percent Auto 0.0 0.9-7.0 % Basophils Percent Auto 0.0 0.2-2.0 % Immature Granulocytes Pct Auto 0.4 0.0-0.5 % Neutrophils Absolute Auto 7.6 1.4-6.5 10 3/uL Lymphocytes Absolute Auto 0.8 1.2-3.8 10 3/uL Monocytes Absolute Auto 0.1 0.3-0.8 10 3/uL Eosinophils Absolute Auto 0.0 0.0-0.7 10 3/uL Basophils Absolute Auto 0.0 0.0-0.1 10 3/uL Immature Granulocytes Abs Auto 0.03 0.00-0.03 10 3/uL Performing Lab: see note ML - [facility] LB UA Micro, reflex to culture Reviewed date:08/31/2024 09:11:51 AM Interpretation: Performing Lab: Notes/Report: [facility] , Color Urine YELLOW YELLOW Clarity Urine CLEAR CLEAR Specific [place] Urine 1.025 1.005-1.025 pH Urine 5.5 5.0-9.0 Protein Urine NEGATIVE NEG/TRACE mg/dL Glucose Urine UA NEGATIVE NEGATIVE mg/dL Bilirubin Urine NEGATIVE NEGATIVE Ketones Urine NEGATIVE NEGATIVE mg/dL Blood Urine TRACE-I NEGATIVE Nitrite Urine NEGATIVE NEGATIVE Urobilinogen Urine 0.2 0.2-1.0 EU/dL Leukocyte Esterase Urine NEGATIVE NEGATIVE WBC Urine 2-5 NONE SEEN #/HPF RBC Urine 2-5 0-2 #/HPF Bacteria Urine TRACE NONE SEEN #/HPF Mucus Urine NONE SEEN NONE SEEN Squamous Epithelial Cell Urine NONE SEEN NONE/RARE #/LPF Crystals Seen? None Seen None Seen #/HPF Cast Seen? NONE SEEN NONE SEEN #/LPF Performing Lab: see note ML - [facility] LB PROF 14(COMP METB) Reviewed date:08/31/2024 09:11:51 AM Interpretation: Performing Lab: Notes/Report: [facility] , Sodium 144 136-145 mmol/L Potassium 5.0 3.5-5.1 mmol/L Chloride 107 98-107 mmol/L Carbon Dioxide 26.8 21.0-32.0 mmol/L Anion Gap 15.2 Glucose 103 74-106 mg/dL Blood Urea Nitrogen 33.0 7.0-18.0 mg/dL Creatinine 1.49 0.70-1.30 mg/dL Estimated GFR ( Aleyda 56 >=60 mL/min/1.73m 2 Estimated GFR (Non- Ele 46 >=60 mL/min/1.73m 2 BUN Creatinine Ratio 22.1 Calcium 9.2 8.5-10.1 mg/dL Bilirubin Total 0.5 0.2-1.0 mg/dL Aspartate Amino Transferase 27 15-37 U/L Alanine Aminotransferase 32 16-63 U/L Alkaline Phosphatase 82 46-116 U/L Total Protein 7.4 6.4-8.2 g/dL Albumin Level 3.8 3.4-5.0 g/dL Globulin 3.6 Albumin Globulin Ratio 1.1 Performing Lab: see note ML - [facility] LB LIPASE Reviewed date:08/31/2024 09:11:51 AM Interpretation: Performing Lab: Notes/Report: [facility] , Lipase 24.0 16.0-77.0 U/L Performing Lab: see note ML - [facility] LB LACTATE or LACTIC ACID Reviewed date:08/31/2024 09:11:51 AM Interpretation: Performing Lab: Notes/Report: [facility] , Lactate/Lactic Acid 1.2 0.4-2.0 mmol/L Performing Lab: see note ML - [facility] LB CBC AUTO DIFF Reviewed date:08/31/2024 09:11:51 AM Interpretation: Performing Lab: Notes/Report: [facility] , White Blood Count 8.0 4.0-11.0 10 3/uL Red Blood Count 4.58 4.70-6.10 10 6/uL Hemoglobin 14.9 14.0-18.0 g/dL Hematocrit 42.7 42.0-54.0 % Mean Corpuscular Volume 93.2 80.0-94.0 fL Mean Corpuscular Hemoglobin 32.5 25.9-34.0 pg Mean Corpuscular HGB Conc 34.9 29.9-35.2 g/dL Red Cell Distribution Width 12.5 11.0-15.0 % Platelet Count 258 150-450 10 3/uL Mean Platelet Volume 10.7 9.5-13.5 fL Neutrophils Percent Auto 64.6 43.0-75.0 % Lymphocytes Percent Auto 25.1 20.5-60.0 % Monocytes Percent Auto 6.6 1.7-12.0 % Eosinophils Percent Auto 3.0 0.9-7.0 % Basophils Percent Auto 0.4 0.2-2.0 % Immature Granulocytes Pct Auto 0.3 0.0-0.5 % Neutrophils Absolute Auto 5.2 1.4-6.5 10 3/uL Lymphocytes Absolute Auto 2.0 1.2-3.8 10 3/uL Monocytes Absolute Auto 0.5 0.3-0.8 10 3/uL Eosinophils Absolute Auto 0.2 0.0-0.7 10 3/uL Basophils Absolute Auto 0.0 0.0-0.1 10 3/uL Immature Granulocytes Abs Auto 0.02 0.00-0.03 10 3/uL Performing Lab: see note ML - [facility] LB PSA Total+% Free Reviewed date:04/29/2024 11:48:54 AM Interpretation: Performing Lab: Notes/Report: [facility] , Prostate Specific Ag 4.1 0.0-4.0 ng/mL [facility] ECLIA methodology. According to the [employer], Serum PSA should decrease and remain at undetectable levels after radical prostatectomy. The AUA defines biochemical recurrence as an initial PSA value 0.2 ng/mL or greater followed by a subsequent confirmatory PSA value 0.2 ng/mL or greater. Values obtained with different assay methods or kits cannot be used interchangeably. Results cannot be interpreted as absolute evidence of the presence or absence of malignant disease. PSA, Free 0.69 N/A ng/mL [facility] ECLIA met hodology. % Free PSA 16.8 . % The table below lists the probability of prostate cancer for men with non-suspicious ROSA results and total PSA between 4 and 10 ng/mL, by patient age (Marie et al, ELSY 1998, 279:1542). % Free PSA 50-64 yr 65-75 yr 0.00-10.00% 56% 55% 10.01-15.00% 24% 35% 15.01-20.00% 17% 23% 20.01-25.00% 10% 20% >25.00% 5% 9% Please note: Marie et al did not make specific recommendations regarding the use of percent free PSA for any other population of men. Performed at: [address] [id number] Postdoctoral Scientist: Greg Renee PhD, Phone: [phone] Performing Lab: see note [facility] CA 19-9 Reviewed date:04/22/2024 08:56:52 PM Interpretation: Performing Lab: Notes/Report: [facility] , [place] 19-9 8 0-35 U/mL [facility] Electrochemiluminescence Immunoassay (ECLIA) Values obtained with different assay methods or kits cannot be used interchangeably. Results cannot be interpreted as absolute evidence of the presence or absence of malignant disease. Performed at: [address] [id number] Postdoctoral Scientist: Greg Renee PhD, Phone: [phone] Performing Lab: see note [facility] CEA Reviewed date:04/22/2024 08:56:52 PM Interpretation: Performing Lab: Notes/Report: [facility] , CEA 4.1 0.0-4.7 ng/mL Nonsmokers <3.9 Smokers <5.6 [facility] Electrochemiluminescence Immunoassay (ECLIA) Values obtained with different assay methods or kits cannot be used interchangeably. Results cannot be interpreted as absolute evidence of the presence or absence of malignant disease. Performing Lab: see note [facility] PSA SCREENING Reviewed date:04/22/2024 08:56:52 PM Interpretation: Performing Lab: Notes/Report: [facility] , Prostate Specific Antigen Scrn 6.74 <=4.00 ng/mL Performing Lab: see note - [facility] LB LAB TESTING Reviewed date:04/16/2024 02:17:56 PM Interpretation: Performing Lab: Notes/Report: [id number] Plasminogen Act Inhibitor-1,Ag [facility] , Miscellaneous Test COMMENT . Test Ordered: [id number] Plasminogen Act Inhibitor-1,Ag Plasminogen Act Inhibitor-1,Ag 19.4 ng/mL Reference Range: 4.0-43.0 Performed at: [address] [id number] Postdoctoral Scientist: Erin Ellison MD, Phone: [phone] Performed at: [address] [id number] Postdoctoral Scientist: Greg Renee PhD, Phone: [phone] Performing Lab: see note LC - [facility] LB Factor V Leiden Mutation Reviewed date:04/23/2024 09:01:00 PM Interpretation: Performing Lab: Notes/Report: [facility] , Factor V Leiden Mutation Comment . Result: c.1601G>A ([id number]) - Not Detected This result is not associated with an increased risk for venous thromboembolism. See Additional Clinical Information and Comments. Additional Clinical Information: Venous thromboembolism is a multifactorial disease influenced by genetic, environmental, and circumstantial risk factors. The c.1601G>A (p. [id number]) variant in the F5 gene, commonly referred to as Factor V Leiden, is a genetic risk factor for venous thromboembolism. Heterozygous carriers of this variant have a 6- to 8-fold increased risk for venous thromboembolism. Individuals homozygous for this variant (ie, with a copy of the variant on each chromosome) have an approximately 80-fold increased risk for venous thromboembolism. Individuals who carry both a c.*97G>A variant in the F2 gene and Factor V Leiden have an approximately 20-fold increased risk for venous thromboembolism. Risks are likely to be even higher in more complex genotype combinations involving the F2 c.*97G>A variant and Factor V Leiden (PMID: 35905081). Additional risk factors include but are not limited to: deficiency of protein C, protein S, or antithrombin III, age, male sex, personal or family history of deep vein thromboembolism, smoking, surgery, prolonged immobilization, malignant neoplasm, tamoxifen treatment, raloxifene treatment, oral contraceptive use, hormone replacement therapy, and . Management of thrombotic risk and thrombotic events should follow established guidelines and fit the clinical circumstance. This result cannot predict the occurrence or recurrence of a thrombotic event. Comment: Genetic counseling is recommended to discuss the potential clinical implications of positive results, as well as recommendations for testing family members. Genetic Coordinators are available for health care providers to discuss results at [phone]). Test Details: Variant Analyzed: c.1601G>A (p. [id number]), referred to as Factor V Leiden Methods/Limitations: DNA analysis of the F5 gene (NM_000130.5) was performed by PCR amplification followed by restriction enzyme analysis. The diagnostic sensitivity is >99%. Results must be combined with clinical information for the most accurate interpretation. Molecular-based testing is highly accurate, but as in any laboratory test, diagnostic errors may occur. False positive or false negative results may occur for reasons that include genetic variants, blood transfusions, bone marrow transplantation, somatic or tissue-specific mosaicism, mislabeled samples, or erroneous representation of family relationships. This test was developed and its performance characteristics determined by [facility]. It has not been cleared or approved by the Food and Drug Administration. References: Drea S, Alma Delia ZAVALA, Rojas R, Brody WW, Oren JH; [employer] Professional Practice and Guidelines Committee. Addendum: [employer] consensus statement on factor V Leiden mutation testing. Erica Med. 2020Oct 17. doi: 10.1038/c49896-913-88284-x. PMID: 21228299. Franc RAMÍREZ. Factor V Leiden Thrombophilia. 1998December 26 (Updated 2017Aug 18). In: Jovany MP, Alexis HH, Santhosh RA, et al., editors. Lalit(R) (Internet). [place] ([place]): Formerly [facility]; 8051-9696. Available from: https://www.ncbi.nlm.nih.gov /books/YAZ4007/ Diego S, Alma Delia AK, Jamari X, Glen B, Effie EB, Ibeth P, Ryan CS; [employer] Laboratory Business Development Sales Executive Committee. Venous thromboembolism laboratory testing (factor V Leiden and factor II c.*97G>A), 2018 update: a technical standard of the [employer] and Genomics (ACMG). Erica Med. 2018 Jul;20(12):8024-0433. doi: 10.1038/g65342-843-1539-o. Epub 2017May 19. PMID: 46994097. Reviewed By Comment . Technical Component performed at [facility] Professional Component performed by: Kaltura Martina Oh, Ph.D., [facility] Director, Molecular Genetics [address] [facility] Performed at: [facility] [address], [place] [id number] Postdoctoral Scientist: Leela Cantrell Former[facility], Phone: [phone] Performing Lab: see note - [facility] LB LIPID PROFILE Reviewed date:04/05/2024 09:07:56 PM Interpretation: Performing Lab: Notes/Report: The [facility] , Triglycerides 132 <=150 mg/dL Cholesterol 116 <=200 mg/dL HDL Cholesterol 38 40-60 mg/dL > or =60 mg/dl - LOW CARDIOVASCULAR RISK <40 mg/dl - HIGH CARDIOVASCULAR RISK LDL Cholesterol Calculated 52.0 <100 mg/dl OPTIMAL 100-129 mg/dl NEAR OR ABOVE OPTIMAL 130-159 mg/dl BORDERLINE HIGH 160-189 mg/dl HIGH >190 mg/dl VERY HIGH VLDL CHOLESTEROL 26.4 Chol HDL Ratio 3.1 3.3 - 4.4 LOW RISK 4.4 - 7.1 AVERAGE RISK 7.1 - 11.0 MODERATE RISK >11.0 HIGH RISK Performing Lab: see note ML - The [facility] LB CA echo limited Reviewed date:03/20/2024 03:27:16 PM Interpretation: Performing Lab: Notes/Report: Source Facility: [facility]-[address] [place] [address] [place] [address] Cardiology Report Signed Patient: JEB RIDDLE MR#: [id number] : 1950 Acct:[id number] Age/Sex: 73 / M ADM Date: 03/19/24 Loc: ICU 275-[address]: Lauren Godwin M.D. Ordering Physician: Lauren Godwin M.D. Date of Service: 03/20/24 Procedure(s): CA echo limited Accession Number(s): [id number] cc: Lauren Godwin M.D. Patient Name: JEB RIDDLE MR#: [id number] : 1950 Exam Date: 03/20/2024 Ordering Doctor: DR Lauren Godwin . ECHOCARDIOGRAM REPORT PROCEDURE: CA ECHO LIMITED INDICATIONS: Dyspnea, Pulmonary embolism COMPARISON: None. DESCRIPTION: Limited ECHOCARDIOGRAM Real-time transthoracic echocardiography with 2D and M-mode performed. QUALITY: Technical quality was adequate. LEFT VENTRICLE: Normal chamber size. Moderate concentric left ventricular hypertrophy. LV EF: Global left ventricular systolic function is hyperdynamic. Visual estimation of left ventricular ejection fraction is 65-70%. No wall motion abnormalities. LEFT ATRIUM: Mild dilatation. RIGHT ATRIUM: Mild dilatation. RIGHT VENTRICLE: Normal chamber size. Normal right ventricular systolic function. TRICUSPID VALVE: Normal mobility and thickness. No stenosis with mild regurgitation. Moderate pulmonary hypertension. RVSP 52mmHg and is unchanged from previous study of 02/02/24. MITRAL VALVE: Normal mobility and thickness. AORTIC VALVE: Normal trileaflet appearance. Normal leaflet mobility. AORTIC ROOT: Normal diameter and appearance. PULMONIC VALVE: Normal thickness and mobility. PERICARDIUM: No evidence of pericardial effusion. IVC: Collapses with inspirations. Normal size. CONCLUSION: 1. Global left ventricular systolic function is hyperdynamic; visually estimated ejection fraction is 65-70% 2. Normal right ventricular size and systolic function 3. Biatrial enlargement 4. Mild tricuspid regurgitation 5. Moderately elevated RVSP; RVSP 52 mmHg A limited echocardiogram was performed Adult Echocardiography Procedure Report Left Ventricle LVEDD (3.7 - 5.6 cm): 4.31 cm LVESD (2.2 - 4.0 cm): 2.94 cm LVIVS thickness (0.6 - 1.2 cm): 1.44 cm LVPW thickness (0.5 - 1.0 cm): 1.51 cm LVOT Diameter 2.28 cm Left Ventricular Ejection Fraction: 71.99 % Left Atrium LA Volume Index (2D A2C): 39.52 ml/m2 Left Atrium Systolic Dimension: 3.78 cm Mitral Valve Right Ventricle RV Internal Diastolic Dimension: 3.43 cm Aorta AO Root Diam: 3.60 cm Aortic Valve Tricuspid Valve Peak Velocity (Regurgitant Flow): 3.09 m/s, 3.48 m/s Pulmonic Valve Right Atrium Right Atrium Systolic Pressure: 60.19 ml, 60.19 ml Dictated by: Adal Hernandez M.D. on 03/20/2024 at 09:14 Approved by: Adal Hernandez M.D. on 03/20/2024 at 09:18 Dictated By: Adal Hernandez M.D. Signed By: 03/20/24918 DD/ 7 TD/TT: Meter/Relay Craftsman: The [address] [address] Cardiology Report Signed Patient: JEB RIDDLE MR#: [id number] : 1950 Acct:[id number] Age/Sex: 73 / M ADM Date: 03/19/24 Loc: ICU 275-[address]: Yasmin Godwin M.D. Ordering Physician: Lauren Godwin M.D. Date of Service: 03/20/24 Procedure(s): CA ech o limited Accession Number(s): [id number] cc: Lauren Godwin M.D. Patient Name: JEB RIDDLE MR#: [id number] : 1950 Exam Date: 03/20/2024 Ordering Doctor: DR Lauren Godwin . ECHOCARDIOGRAM REPORT PROCEDURE: CA ECHO LIMITED INDICATIONS: Dyspnea , Pulmonary embolism COMPARISON: None. DESCRIPTION: Limited ECHOCARDIOGRAM Real-time transthoracic echocardiography wit h 2D and M-mode performed. QUALITY: Technical quality was adequate. LEFT VENTRICLE: Norm al chamber size. Moderate concentric left ventricular hypertrophy. LV EF: Global left ventricular systolic function is hyperdynamic. Visual estimation of left ventricular ejection fraction is 65-70%. No wall motion abnormalities. LEFT ATRIUM: Mild dilatation. RIGHT ATRIUM: Mild dilatation. RIGHT VENTRICLE: Normal chamber size. Normal right ventricular systolic function. TRICUSPID VALVE: Nor mal mobility and thickness. No stenosis with mild regurgitation. Moder ate pulmonary hypertension. RVSP 52mmHg and is unchanged from previous study of 02/02/24. MITRAL VALVE: Normal mobility and thickness. AORTIC VALVE: Normal trileaflet appearance. Normal leaflet mobility. AORTIC ROOT: Normal diameter and appearance. PULMONIC VALVE: Norm al thickness and mobility. PERICARDIUM: No evidence of pericardial effusion. IVC: Collapses with inspirations. Normal size. CONCLUSION: 1. Global left ventricular systolic function is hyperdynamic; visually estimated ejection fraction is 65-70% 2. Normal right ventricular size and systolic function 3. Biatrial enlargement 4. Mild tricuspid regurgitation 5. Moderately elevat ed RVSP; RVSP 52 mmHg A limited echocardiogram was performed Adult Echocardiograp hy Procedure Report Left Ventricle LVEDD (3.7 - 5.6 cm) : 4.31 cm LVESD (2.2 - 4.0 cm) : 2.94 cm LVIVS thickness (0.6 - 1.2 cm): 1.44 cm LVPW thickness (0.5 - 1.0 cm): 1.51 cm LVOT Diameter 2.28 cm Left Ventricular Ejection Fraction: 71.99 % Left Atrium LA Volume Index (2D A2C): 39.52 ml/m2 Left Atrium Systolic Dimension: 3.78 cm Mitral Valve Right Ventricle RV Internal Diastoli c Dimension: 3.43 cm Aorta AO Root Diam: 3.60 cm Aortic Valve Tricuspid Valve Peak Velocity (Regurgitant Flow): 3.09 m/s, 3.48 m/s Pulmonic Valve Right Atrium Right Atrium Systoli c Pressure: 60.19 ml, 60.19 ml Dictated by: Adal Hernandez M.D. on 03/20/2024 at 09:14 Approved by: Adal Hernandez M.D. on 03/20/2024 at 09:18 Dictated By: Adal Hernandez M.D. Signed By: 03/20/24918 DD/ 7 TD/TT: Meter/Relay Craftsman: PTT Reviewed date:03/19/2024 09:07:41 PM Interpretation: Performing Lab: Notes/Report: The [facility] , Partial Thromboplastin Time 26.8 22.3-36.2 sec Performing Lab: see note ML - The [facility] LB Troponin I High Sensitivity Reviewed date:03/19/2024 08:10:43 PM Interpretation: Performing Lab: Notes/Report: The [facility] , Troponin I High Sensitivity 7.3 4.0-76.1 pg/mL CUT-OFF POINTS HAVE BEEN ESTABLISHED BASED ON THE FOURTH UNIVERSAL DEFINITION OF MYOCARDIAL INFARCTION. THE UPPER REFERENCE LIMIT (URL) OF TROPONIN, DEFINED THE 99TH PERCENTILE OF cTnI DISTRIBUTION IN A REFERENCE POPULATION, HAS BEEN CONFIRMED THE DECISION THRESHOLD FOR CT DIAGNOSIS. 99TH PERCENTILE = 76.2 PG/ML NOTE: HIGH-SENSITIVITY TROPONIN ASSAY IS NOT INTENDED TO BE USED IN ISOLATION BUT SHOULD BE INTERPRETED IN CONJUNCTION WITH OTHER DIAGNOSTIC AND CLINICAL INFORMATION. Performing Lab: see note ML - The [facility] LB CT angio chest Reviewed date:03/19/2024 08:10:43 PM Interpretation: Performing Lab: Notes/Report: Source Facility: [facility]-[address] [place] [address] [place] [address] CT Scan Report Addendum Patient: JEB RIDDLE MR#: [id number] : 1950 Acct:[id number] Age/Sex: 73 / M ADM Date: 03/19/24 Loc: ER Attending Dr: Ordering Physician: Warner Maradiaga Date of Service: 03/19/24 Procedure(s): CT angio chest Accession Number(s): [id number] cc: Lauren Godwin M.D. ADDENDUM [place] [id number] Patient Name: JEB RIDDLE MRN: [facility]:[id number] date: 1950 Sex: M Assigned Patient Location: ER Current Patient Location: ER Accession/Order Number: [id number] Exam Date: 03/19/2024 17:32 Report Date: 03/19/2024 19:34 At the request of: WARNER MARADIAGA Procedure: CT angio chest Begin Addendum #1 Critical value was reported to Dr. Worley by Dr. Seble Champion on 03/19/2024 7:34 PM EDT. Original Report EXAM: CT angio chest . HISTORY: Chest pain, DVT, rule-out PE COMPARISON: None. TECHNIQUE: Initially, thin section noncontrast images through portions of the chest were obtained for the purpose of establishing proper bolus timing of contrast. Subsequently, thin section axial CT images were obtained through the chest after intravenous administration of nonionic contrast as per protocol. To optimally assess the thoracic vasculature, the original axial data was used to create 3D volume rendered, multiplanar reformatted and/or maximum intensity projection images in various planes. The axial and reformatted data were reviewed for this report. In accordance with CT protocols and the ALARA principle, radiation dose reduction techniques were utilized for this examination. Dose reduction techniques were achieved by using automated exposure control and/or adjustment of mA and/or kV according to patient size and/or use of iterative reconstruction technique. COMPARISON: None. FINDINGS: Bolus opacification of the pulmonary arteries was adequate for purposes of diagnosis. There is acute segmental and subsegmental pulmonary emboli within the right upper lobe involving anterior right upper lobe segmental branch and multiple adjacent smaller subsegmental branches extending to the right upper lobe. No additional right-sided pulmonary emboli are identified. No left-sided PE or central or saddle embolus. The lungs are free of acute cardiopulmonary disease. No hilar or mediastinal lymphadenopathy. Normal size and appearance of cardiac chambers. No obvious right heart strain. No dissection. No thoracic aortic aneurysm. The thoracic aorta and great vessels are unremarkable. No pulmonary venous congestion. Pulmonary arteries are normal in configuration. There is no pleural effusion or mass. No pulmonary nodules or masses are identified. No acute upper abdominal findings. There is no body wall mass. There is no destructive osseous process. Addendum Dictated By: Seble Champion D.O. Addendum Signed By: Addendum Cosigned By: DD/ /05/1934 TD/TT: / ADDENDUM CT/CT angio chest IMPRESSION: 1. Acute segmental and subsegmental branch PE involving right upper lobe as discussed. 2. Clear lungs. Electronically authenticated by: SEBLE CHAMPION Date: 03/19/2024 19:34 Addendum Dictated By: Seble Champion D.O. Addendum Signed By: Addendum Cosigned By: MICHEL/ /05/1934 TD/TT: / [place] [address] Patient Name: JEB RIDDLE MRN: [id number] date: 1950 Sex: M Assigned Patient Location: ER Current Patient Location: [facility] Accession/Order Number: [id number] Exam Date: 03/19/2024 17:32 Report Date: 03/19/2024 19:30 At the request of: WARNER MARADIAGA Procedure: CT angio chest EXAM: CT angio chest . HISTORY: Chest pain, DVT, rule-out PE COMPARISON: None. TECHNIQUE: Initially, thin section noncontrast images through portions of the chest were obtained for the purpose of establishing proper bolus timing of contrast. Subsequently, thin section axial CT images were obtained through the chest after intravenous administration of nonionic contrast as per protocol. To optimally assess the thoracic vasculature, the original axial data was used to create 3D volume rendered, multiplanar reformatted and/or maximum intensity projection images in various planes. The axial and reformatted data were reviewed for this report. In accordance with CT protocols and the ALARA principle, radiation dose reduction techniques were utilized for this examination. Dose reduction techniques were achieved by using automated exposure control and/or adjustment of mA and/or kV according to patient size and/or use of iterative reconstruction technique. COMPARISON: None. FINDINGS: Bolus opacification of the pulmonary arteries was adequate for purposes of diagnosis. There is acute segmental and subsegmental pulmonary emboli within the right upper lobe involving anterior right upper lobe segmental branch and multiple adjacent smaller subsegmental branches extending to the right upper lobe. No additional right-sided pulmonary emboli are identified. No left-sided PE or central or saddle embolus. The lungs are free of acute cardiopulmonary disease. No hilar or mediastinal lymphadenopathy. Normal size and appearance of cardiac chambers. No obvious right heart strain. No dissection. No thoracic aortic aneurysm. The thoracic aorta and great vessels are unremarkable. No pulmonary venous congestion. Pulmonary arteries are normal in configuration. There is no pleural effusion or mass. No pulmonary nodules or masses are identified. No acute upper abdominal findings. There is no body wall mass. There is no destructive osseous process. CT/CT angio chest IMPRESSION: 1. Acute segmental and subsegmental branch PE involving right upper lobe as discussed. 2. Clear lungs. Electronically authenticated by: SEBLE CHAMPION Date: 03/19/2024 19:30 Dictated By: Seble Champion D.O. Signed By: 03/19/241931 DD/ 29 TD/TT: Meter/Relay Craftsman: The [address] [address] [address] Scan Report Addendum Patient: JEB RIDDLE MR#: [id number] : 1950 Acct:[id number] Age/Sex: 73 / M ADM Date: 03/19/24 Loc: ER Attending Dr: Ordering Physician: Warner Maradiaga Date of Service: 03/19/24 Procedure(s): CT ang io chest Accession Number(s): [id number] cc: Lauren Godwin M.D. ADDENDUM The [address] [address] Patient Name: JEB RIDDLE MRN: [id number] date: 1950 Sex: M Assigned Patient Location: ER Current Patient Location: ER Accession/Order Numb er: [id number] Exam Date: 03/19/2024 17:32 Report Date: 03/19/2024 19:34 At the request of: WARNER ASHWINI Procedure: CT angio chest Begin Addendum # 1 Critical value was reported to Dr. Worley by Dr. Seble Champion on 03/19/2024 7:34 PM EDT. Original Report EXAM: CT angio chest . HISTORY: Chest pain, DVT, rule-out PE COMPARISON: None. TECHNIQUE: Initially , thin section noncontrast images through portions of the chest were obtained for the purpose of establishing proper bolus timing of contrast. Subsequent ly, thin section axial CT images were obtained through the chest after intraven ous administration of nonionic contrast as per protocol. To optimally assess the thoracic vasculature, the original axial data was used to create 3D volume rendered, multiplanar reformatted and/or maximum intensity projection images in various planes. The axial and reformatted data were reviewed for this report. In accordance with CT protocols and the ALARA principle, radiation dose reduction techniques were utilized for this examination. Dose reduction techniques were achieved by using automated exposure control and/or adjustment of mA and/or kV according to patient size and/or use of iterative reconstruction technique. COMPARISON: None. FINDINGS: Bolus opacification of the pulmonary arteries was adequate for purposes of diagnosis. There is acute segmental and subsegmental pulmonary emboli within the right upper lobe involving anterior right upper lobe segmental branch and multiple adjacent smaller subsegmental branches extending to the right upper lobe. No additional right-chandra ed pulmonary emboli are identified. No left-sided PE or central or saddle embolus. The lungs are free o f acute cardiopulmonary disease. No hilar or mediastinal lymphadenopathy. Normal size and appearance of cardiac chambers. No obvious right heart strain. No dissection. No thoracic aortic aneurysm. The thoracic aorta and great vessels are unremarkable. No pulmonary venous congestion. Pulmonary arteries are normal in configuration. There is no pleural effusion or mass. No pulmonary nodules or masses are identified. No acute upper abdominal findings. There is no body wall mass. There is no destruct maría osseous process. Addendum Dictated By : Seble Champion D.O. Addendum Signed By: Addendum Cosigned By: DD/ /05/1934 TD/TT: / ADDENDUM CT/CT angio chest IMPRESSION: 1. Acute segmental a nd subsegmental branch PE involving right upper lobe as discussed. 2. Clear lungs. Electronically authenticated by: SEBLE CHAMPION Date: 03/19/2024 19:34 Addendum Dictated By : Seble Champion D.O. Addendum Signed By: Addendum Cosigned By: DD/ /05/1934 TD/TT: / [place] [id number] Patient Name: JEB RIDDLE MRN: [id number] date: 1950 Sex: M Assigned Patient Location: ER Current Patient Location: ED.MAIN Accession/Order Numb er: [id number] Exam Date: 03/19/2024 17:32 Report Date: 03/19/2024 19:30 At the request of: WARNER MARADIAGA Procedure: CT angio chest EXAM: CT angio chest . HISTORY: Chest pain, DVT, rule-out PE COMPARISON: None. TECHNIQUE: Initially , thin section noncontrast images through portions of the chest were obtained for the purpose of establishing proper bolus timing of contrast. Subsequent ly, thin section axial CT images were obtained through the chest after intraven ous administration of nonionic contrast as per protocol. To optimally assess the thoracic vasculature, the original axial data was used to create 3D volume rendered, multiplanar reformatted and/or maximum intensity projection images in various planes. The axial and reformatted data were reviewed for this report. In accordance with CT protocols and the ALARA principle, radiation dose reduction techniques were utilized for this examination. Dose reduction techniques were achieved by using automated exposure control and/or adjustment of mA and/or kV according to patient size and/or use of iterative reconstruction technique. COMPARISON: None. FINDINGS: Bolus opacification of the pulmonary arteries was adequate for purposes of diagnosis. There is acute segmental and subsegmental pulmonary emboli within the right upper lobe involving anterior right upper lobe segmental branch and multiple adjacent smaller subsegmental branches extending to the right upper lobe. No additional right-chandra ed pulmonary emboli are identified. No left-sided PE or central or saddle embolus. The lungs are free o f acute cardiopulmonary disease. No hilar or mediastinal lymphadenopathy. Normal size and appearance of cardiac chambers. No obvious right heart strain. No dissection. No thoracic aortic aneurysm. The thoracic aorta and great vessels are unremarkable. No pulmonary venous congestion. Pulmonary arteries are normal in configuration. There is no pleural effusion or mass. No pulmonary nodules or masses are identified. No acute upper abdominal findings. There is no body wall mass. There is no destruct maría osseous process. CT/CT angio chest IMPRESSION: 1. Acute segmental a nd subsegmental branch PE involving right upper lobe as discussed. 2. Clear lungs. Electronically authenticated by: SEBLE CHAMPION Date: 03/19/2024 19:30 Dictated By: Seble Champion D.O. Signed By: 03/19/241931 DD/ 29 TD/TT: Meter/Relay Craftsman: CBC AUTO DIFF Reviewed date:03/19/2024 08:10:43 PM Interpretation: Performing Lab: Notes/Report: [facility] , White Blood Count 7.6 4.0-11.0 10 3/uL Red Blood Count 3.68 4.70-6.10 10 6/uL Hemoglobin 12.0 14.0-18.0 g/dL Hematocrit 34.8 42.0-54.0 % Mean Corpuscular Volume 94.6 80.0-94.0 fL Mean Corpuscular Hemoglobin 32.6 25.9-34.0 pg Mean Corpuscular HGB Conc 34.5 29.9-35.2 g/dL Red Cell Distribution Width 12.6 11.0-15.0 % Platelet Count 206 150-450 10 3/uL Mean Platelet Volume 10.3 9.5-13.5 fL Neutrophils Percent Auto 60.6 43.0-75.0 % Lymphocytes Percent Auto 29.9 20.5-60.0 % Monocytes Percent Auto 6.3 1.7-12.0 % Eosinophils Percent Auto 2.6 0.9-7.0 % Basophils Percent Auto 0.3 0.2-2.0 % Immature Granulocytes Pct Auto 0.3 0.0-0.5 % Neutrophils Absolute Auto 4.6 1.4-6.5 10 3/uL Lymphocytes Absolute Auto 2.3 1.2-3.8 10 3/uL Monocytes Absolute Auto 0.5 0.3-0.8 10 3/uL Eosinophils Absolute Auto 0.2 0.0-0.7 10 3/uL Basophils Absolute Auto 0.0 0.0-0.1 10 3/uL Immature Granulocytes Abs Auto 0.02 0.00-0.03 10 3/uL Performing Lab: see note ML - The [facility] LB US venous doppler LE BI Reviewed date:03/19/2024 08:10:43 PM Interpretation: Performing Lab: Notes/Report: Source Facility: [place] [address] [place] [address] Ultrasound Report Signed Patient: JEB RIDDLE MR#: [id number] : 1950 Acct:[id number] Age/Sex: 73 / M ADM Date: 03/19/24 Loc: ER Attending Dr: Ordering Physician: Warner Maradiaga Date of Service: 03/19/24 Procedure(s): US venous doppler LE LT Accession Number(s): [id number] cc: Lauren Godwin M.D.; Warner Maradiaga [place] [address] Patient Name: JEB RIDDLE MRN: [id number] date: 1950 Sex: M Assigned Patient Location: ED.MAIN Current Patient Location: ER Accession/Order Number: [id number] Exam Date: 03/19/2024 17:55 Report Date: 03/19/2024 19:03 At the request of: WARNER MARADIAGA Procedure: US venous doppler LE LT EXAM: US venous doppler LE LT HISTORY: DVT history, follow-up COMPARISON: 02/21/2024 TECHNIQUE: Multiple sonographic images of the deep veins of the left lower extremity were obtained, supplemented with Doppler. FINDINGS: The deep veins of the left lower extremity are fairly well-visualized the groin to the mid calf. No filling defect is identified in the deep veins to indicate a thrombus. There is normal compression augmentation of flow. In the prior study, thrombus was identified in the right gastrocnemius vein. This finding is no longer apparent. US/US venous doppler LE LT IMPRESSION: Interval clearing of the deep veins. There is no direct or indirect evidence of deep vein thrombosis in the left lower extremity at this time. Electronically authenticated by: SYLVIE MCLAUGHLIN Date: 03/19/2024 19:03 Dictated By: Sylvie Mclaughlin M.D. Signed By: 03/19/241905 DD/ 02 TD/TT: Meter/Relay Craftsman: [place] [address] Ultrasound Report Signed Patient: JEB RIDDLE MR#: [id number] : 1950 Acct:[id number] Age/Sex: 73 / M ADM Date: 03/19/24 Loc: ER Attending Dr: Ordering Physician: Warner Maradiaga Date of Service: 03/19/24 Procedure(s): US marco ous doppler LE LT Accession Number(s): [id number] cc: Lauren Godwin M.D. ; Warner Maradiaga [place] [address] Patient Name: JEB RIDDLE MRN: [id number] date: 1950 Sex: M Assigned Patient Location: ED.MAIN Current Patient Location: ER Accession/Order Numb er: [id number] Exam Date: 03/19/2024 17:55 Report Date: 03/19/2024 19:03 At the request of: WARNER MARADIAGA Procedure: US venous doppler LE LT EXAM: US venous dopp ler LE LT HISTORY: DVT history , follow-up COMPARISON: 02/21/2024 TECHNIQUE: Multiple sonographic images of the deep veins of the left lower extremity were obtained, supplemented with Doppler. FINDINGS: The deep veins of the left lower extremity are fairly well-visualized the groin to the mid calf. No filling defect is identified in the deep veins to indicate a thrombus. There is normal compression augmentation of flow. In the prior study, thrombus was identified in the right gastrocnemius vein. This finding is no longer apparent. US/US venous doppler LE LT IMPRESSION: Interval clearing of the deep veins. There is no direct or indirect evidence of deep vein thrombosis in the left lower extremity at this time. Electronically authenticated by: SYLVIE MCLAUGHLIN Date: 03/19/2024 19:03 Dictated By: Sylvie Mclaughlin M.D. Signed By: 03/19/241905 DD/ 02 TD/TT: Meter/Relay Craftsman: US venous doppler LE BI Reviewed date:09/15/2024 04:39:28 PM Interpretation: Performing Lab: Notes/Report: Source Facility: [place] [address] Ultrasound Report Signed Patient: JEB RIDDLE MR#: [id number] : 1950 Acct:[id number] Age/Sex: 73 / M ADM Date: 09/14/24 Loc: CARD Attending Dr: Lauren Godwin M.D. Ordering Physician: Lauren Godwin M.D. Date of Service: 09/14/24 Procedure(s): US venous doppler LE BI Accession Number(s): [id number] cc: Lauren Godwin M.D. [place] [address] Patient Name: JEB RIDDLE MRN: [id number] date: 1950 Sex: M Assigned Patient Location: CARD Current Patient Location: CARD Accession/Order Number: [id number] Exam Date: 09/14/2024 11:15 Report Date: 09/14/2024 13:47 At the request of: LAUREN GODWIN Procedure: US venous doppler LE BI EXAM: US venous doppler LE BI HISTORY: Deep Vein Thrombosis Of Left Leg COMPARISON: None. TECHNIQUE: Grayscale, color and Doppler FINDINGS: Region: Bilateral legs Thrombus: None Flow: Normal Compressibility: Normal Augmentation: Normal Previously identified left gastrocnemius deep vein thrombus is not seen on the current exam US/US venous doppler LE BI IMPRESSION: No deep or superficial vein thrombus identified in the legs Electronically authenticated by: ROBERT DAVENPORT Date: 09/14/2024 13:47 Dictated By: Robert Davenport M.D. Signed By: 09/14/24 1350 DD/ 1347 TD/TT: Meter/Relay Craftsman: [place] [address] Ultrasound Report Signed Patient: JEB RIDDLE MR#: [id number] : 1950 Acct:[id number] Age/Sex: 73 / M ADM Date: 09/14/24 Loc: CARD Attending Dr: Yasmin Godwin M.D. Ordering Physician: Lauren Godwin M.D. Date of Service: 09/14/24 Procedure(s): US marco ous doppler LE BI Accession Number(s): [id number] cc: Lauren Godwin M.D. [place] [address] Patient Name: JEB RIDDLE MRN: [id number] date: 1950 Sex: M Assigned Patient Location: CARD Current Patient Location: CARD Accession/Order Numb er: [id number] Exam Date: 09/14/2024 11:15 Report Date: 09/14/2024 13:47 At the request of: LAUREN GODWIN Procedure: US venous doppler LE BI EXAM: US venous dopp ler LE BI HISTORY: Deep Vein Thrombosis Of Left Leg COMPARISON: None. TECHNIQUE: Grayscale , color and Doppler FINDINGS: Region: Bilateral legs Thrombus: None Flow: Normal Compressibility: Normal Augmentation: Normal Previously identifie d left gastrocnemius deep vein thrombus is not seen on the current exam US/US venous doppler LE BI IMPRESSION: No deep or superfici al vein thrombus identified in the legs Electronically authenticated by: ROBERT DAVENPORT Date: 09/14/2024 13:47 Dictated By: Cody Davenport M.D. Signed By: 09/14/24 1350 DD/ 1347 TD/TT: Meter/Relay Craftsman: MAGDIEL ALEXANDRE ([id number]) - IN OFFICE Reviewed date:10/23/2024 03:58:06 PM Interpretation: Performing Lab: Notes/Report: COLOR yellow CLARITY clear GLUCOSE neg BILIRUBIN neg KETONE neg SPECIFIC GRAVITY 1.015 BLOOD LARGE PH 5 PROTEIN TRACE UROBILINOGEN neg NITRITE neg LEUKOCYTE ESTERASE TRACE Troponin I High Sensitivity Reviewed date:12/01/2024 01:18:05 PM Interpretation: Performing Lab: Notes/Report: [facility] , Troponin I High Sensitivity 17.3 4.0-76.1 pg/mL CUT-OFF POINTS HAVE BEEN ESTABLISHED BASED ON THE FOURTH UNIVERSAL DEFINITION OF MYOCARDIAL INFARCTION. THE UPPER REFERENCE LIMIT (URL) OF TROPONIN, DEFINED THE 99TH PERCENTILE OF cTnI DISTRIBUTION IN A REFERENCE POPULATION, HAS BEEN CONFIRMED THE DECISION THRESHOLD FOR CT DIAGNOSIS. 99TH PERCENTILE = 76.2 PG/ML NOTE: HIGH-SENSITIVITY TROPONIN ASSAY IS NOT INTENDED TO BE USED IN ISOLATION BUT SHOULD BE INTERPRETED IN CONJUNCTION WITH OTHER DIAGNOSTIC AND CLINICAL INFORMATION. Performing Lab: see note - [facility] LB PROF CHEM 8 (BAS METB) Reviewed date:12/01/2024 01:18:05 PM Interpretation: Performing Lab: Notes/Report: [facility] , Sodium 143 136-145 mmol/L Potassium 4.6 3.5-5.1 mmol/L Chloride 110 98-107 mmol/L Carbon Dioxide 23.0 21.0-32.0 mmol/L Anion Gap 14.6 Glucose 116 74-106 mg/dL Blood Urea Nitrogen 38.0 7.0-18.0 mg/dL Creatinine 1.47 0.70-1.30 mg/dL Estimated GFR ( Aleyda 57 >=60 mL/min/1.73m 2 Estimated GFR (Non- Ele 47 >=60 mL/min/1.73m 2 BUN Creatinine Ratio 25.9 Calcium 8.8 8.5-10.1 mg/dL Performing Lab: see note ML - The [facility] LB CBC AUTO DIFF Reviewed date:12/01/2024 01:18:05 PM Interpretation: Performing Lab: Notes/Report: [facility] , White Blood Count 9.0 4.0-11.0 10 3/uL Red Blood Count 4.00 4.70-6.10 10 6/uL Hemoglobin 12.8 14.0-18.0 g/dL Hematocrit 38.8 42.0-54.0 % Mean Corpuscular Volume 97.0 80.0-94.0 fL Mean Corpuscular Hemoglobin 32.0 25.9-34.0 pg Mean Corpuscular HGB Conc 33.0 29.9-35.2 g/dL Red Cell Distribution Width 13.7 11.0-15.0 % Platelet Count 301 150-450 10 3/uL Mean Platelet Volume 10.3 9.5-13.5 fL Neutrophils Percent Auto 46.8 43.0-75.0 % Lymphocytes Percent Auto 39.5 20.5-60.0 % Monocytes Percent Auto 9.0 1.7-12.0 % Eosinophils Percent Auto 3.7 0.9-7.0 % Basophils Percent Auto 0.6 0.2-2.0 % Immature Granulocytes Pct Auto 0.4 0.0-0.5 % Neutrophils Absolute Auto 4.2 1.4-6.5 10 3/uL Lymphocytes Absolute Auto 3.6 1.2-3.8 10 3/uL Monocytes Absolute Auto 0.8 0.3-0.8 10 3/uL Eosinophils Absolute Auto 0.3 0.0-0.7 10 3/uL Basophils Absolute Auto 0.1 0.0-0.1 10 3/uL Immature Granulocytes Abs Auto 0.04 0.00-0.03 10 3/uL Performing Lab: see note ML - [facility] Reason For Referral Diagnosis 1 Crohn disease (K50.9 0) Referral Organization [facility] Referring Provider First Name Jack Referring Provider Last Name Tato Referring Provider [facility] Referred Provider Robert Schofield Referred Provider Specialty Gastroentero logy Referral Priority Routine Diagnosis 1 Syncope (R55) Diagnosis 2 Seizure (R56.9) Referral Organization [facility] Referring Provider First Name Jack Referring Provider Last Name Tato Referring Provider [facility] Referred Provider [facility] Referred Provider Specialty Neurology Referral Priority Routine Diagnosis 1 Sebaceous cyst (L72. 3) Referral Organization [facility] Referring Provider First Name Jack Referring Provider Last Name Tato Referring Provider [facility] Referred Provider Destini Kent Referred Provider Specialty General Surg orion Referral Priority Routine Medications Medication SIG (Take, Route, Frequency, Duration) Notes Start Date End Date Status cloNIDine HCl 0.1 MG 2 tablet Orally bid for 30 days Active Crestor Active Isosorbide Mononitrate ER 30 MG TAKE 1 TABLET EVERY MORNING for 90 Active Lisinopril 40 MG TAKE 1 TABLET EVERY DAY for 90 Active Topiramate 50 MG TAKE 1 TABLET BY OZIEL TH EVERY DAY FOR 30 DAYS for 30 Active Aspirin 81 81 MG 1 tablet [...] since you last smoked? > 10 years Alcohol Screen (Audit-C) Question Answer Notes Did you have a drink contain ing alcohol in the past year? Yes How often did you have 6 or more drinks on one occasion in the past year? Never (0 point) How many drinks did you have on a typical day when you were drinking in the past year? 1 or 2 drinks (0 point) How often did you have a dri nk containing alcohol in the past year? Daily or almost daily (4 points) Points 4 Interpretation Positive AUDIT-C (Standard) Question Answer Notes Did you have a drink containing alcohol in the p ast year? No Points 0 Interpretation Negative Problems Problem Type SNOMED Code ICD Code Onset Dates Problem Status W/U Status Risk Notes Problem Hypomagnesemia (239892947) Hypomagnesemia (E83.42) Active confirmed Problem Hypocalcemia (1003388) Hypocalcemia (E83.51) Active confirmed Problem Unstable angina (1931157) Unstable angina (I20.0) Active confirmed Problem 1823959 Supraventricular tachycardia (I47.1) Active confirmed Problem 813143108 Occlusion and stenosis of bilateral carotid arteries (I65.23) Active confirmed Problem Abdominal pain (06160856) Abdominal pain (R10.9) Active confirmed Problem Chest pain (05786698) Chest pain (R07.9) Active confirmed Problem Fatigue (83718480) Fatigue (R53.83) Active conf irmed Problem Hypertension (23972165) Hypertension (I10) Active confirmed Problem Pulmonary embolism (86144496) Pulmonary embolism (I26.99) Active confirmed Problem Anxiety (28024560) Anxiety (F41.9) Active confi rmed Problem Tremor (27990774) Tremor (R25.1) Active confirm ed Problem Depression (607087146) Depression (F32.9) Active confirmed Problem Dyspnea (938346456) Dyspnea (R06.00) Active con firmed Problem Insomnia (601776291) Insomnia (G47.00) Active confirmed Problem Syncope (284044201) Syncope (R55) Active confir med Problem Generalized anxiety disorder (21419222) NADIYA (generalized anxiety disorder) (F41.1) Active confirmed Problem Colitis (97091730) Colitis (K52.9) Active confi rmed Problem Essential hypertension (62539756) Hypertension, uncontrolled (I10) Active confirmed Problem Pain in limb (76014279) Thumb pain, left (M79.645) Active confirmed Problem Iron deficiency anemia (82483147) Anemia, iron deficiency (D50.9) Active confirmed Problem Crohn disease (30238983) Crohn disease (K50.90) Active confirmed Problem Nonsustained paroxysmal supraventricular tachycardia (8107793366033) Supraventricular tachycardia, nonsustained (I47.9) Active confirmed Problem Elevated blood pressure (68974634) Blood pressure elevated (I10) Active confirmed Problem Essential hypertension (31972975) BP (high blood pressure) (I10) Active confirmed Problem Thrombophlebitis of deep veins of lower extremity (44190712) Deep vein thrombophlebitis of left leg (I80.202) Active confirmed Problem 84496649 Ventricular tachycardia, unspecified (I47.20) Active confirmed Vital Signs Blood pressure diastolic 84 mm Hg 01/16/2025 Height 74 in 01/16/2025 Blood pressure systolic 156 mm Hg 01/16/2025 Weight 186.2 lbs 01/16/2025 BMI 23.9 kg/m2 01/16/2025 Procedures Procedure Date Ordered Date Performed Result Body Sit e EEG 08/09/2024 N/A EEG (Sleep Deprived) 08/13/2024 N/A *CARDIO Stress Test - Treadmill Exercise 09/07/2024 N/A CARDIO Echocardiogram 11/28/2024 N/A Encounters Encounter Location Date Provider Diagnosis [facility] [address] [place] [address] 12/18/2024 Jack Godwin Depression F32.9 [facility] [address] [place] [address] 01/09/2025 Jack Godwin Hypertension I10 [facility] [address] [place] [address] 01/09/2025 Jack Godwin [facility] [address] [place] [address] 10/25/2024 Jack Godwin [facility] [address] [place] [address] 10/28/2024 Jack Godwin [facility] [address] [place] [address] 11/07/2024 Jack Godwin Deep vein thrombophlebitis of left leg I80.202 [facility] [address] [place] [address] 11/07/2024 Jack Godwin [facility] [address] [facility] [place] [address] 11/26/2024 Jack Godwin [facility] [address] [facility] [place] [address] 12/03/2024 Jack Godwin [facility] [address] [facility] [place] [address] 08/16/2024 Jack Godwin Deep vein thrombophlebitis of left leg I80.202 [facility] [address] [facility] [place] [address] 09/03/2024 Jack Godwin [facility] [address] [facility] [place] [address] 09/04/2024 Jack Godwin [facility] [address] [facility] [place] [address] 09/15/2024 Jack Godwin [facility] [address] [facility] [place] [address] 10/09/2024 Jack Godwin [facility] [address] [facility] [place] [address] 10/23/2024 Jack Godwin [facility] [address] [facility] [place] [address] 04/05/2024 Jack Apodacay [facility] [address] [facility] [address] [place] [address] 04/17/2024 Jack Godwin Hypertension I10 [facility] [address] [facility] [place] [address] 04/22/2024 Jack Godwin Elevated PSA R97.20 [facility] [address] [facility] [place] [address] 04/29/2024 Jack Hoy Elevated PSA R97.20 [facility] [address] [place] [facility] [place] [address] 06/29/2024 Jack Hoy [facility] [address] [place] [facility] [place] [address] 08/09/2024 Jack Hoy Syncope R55 [facility] [address] [place] [facility] [place] [address] 02/21/2024 LAUREN HOY Hypertension I10 [facility] [address] [place] [facility] [place] [address] 02/21/2024 LAUREN HOY DVT (deep venous thrombosis) I82.409 [facility] [address] [facility] [place] [address] 02/21/2024 Jack Hoy [facility] [address] [facility] [place] [address] 03/08/2024 Jack Hoy Hypertension I10 [facility] [address] [place] [facility] [place] [address] 03/19/2024 Jack Hoy [facility] [address] [place] [facility] [place] [address] 01/16/2025 Jack Hoy Hypertension I10 ; Fatigue R53.83 and Dyspnea R06.00 [place] [address] [facility] [place] [address] 10/23/2024 Jack Hoy Increased urinary frequency R35.0 ; Supraventricular tachycardia, nonsustained I47.9 ; Blood pressure elevated I10 ; UTI (urinary tract infection), uncomplicated N39.0 ; Dysuria R30.0 and Sebaceous cyst L72.3 [facility] [address] [facility] [place] [address] 11/13/2024 Jack Hoy Hypertension I10 and Supraventricular tachycardia I47.1 [facility] [address] [place] [facility] [place] [address] 11/28/2024 Jack Hoy Unstable angina I20. 0 ; PSA elevation R97.20 ; Anxiety F41.9 ; Depression F32.9 and Dyspnea R06.00 [facility] [address] [place] [address] 02/03/2024 LAUREN HOY Hypertension I10 and Chest pain R07.9 [facility] [address] [place] [address] 02/21/2024 Jack Hoy Hypertension I10 ; L ow back pain at multiple sites M54.50 and Left leg pain M79.605 [place] [address] [place] [address] 03/26/2024 Jack Hoy Crohn disease K50.90 and Pulmonary embolism I26.[address] [address] 04/19/2024 Jack Hoy Pulmonary embolism I 26.99 and Deep vein thrombophlebitis of left leg I80.[address] [address] 08/13/2024 Jack Hoy Hypertension I10 ; Insomnia G47.00 and Syncope R55 [address] [address] 09/07/2024 Jack Hoy Chest pain R07.9 and Supraventricular tachycardia, nonsustained I47.9 Assessments Encounter Date Diagnosis (ICD Code) Assessment Notes Treatment Notes Treatment Clinical Notes Section Notes 02/03/2024 Hypertension (ICD-10 - I10) 02/03/2024 Chest pain (ICD-10 - R07.9) 02/21/2024 Hypertension (ICD-10 - I10) 02/21/2024 Low back pain at multiple sites (ICD-10 - M54.50) 03/26/2024 Crohn disease (ICD-10 - K50.90) 03/26/2024 Pulmonary embolism (ICD-10 - I26.99) 04/19/2024 Pulmonary embolism (ICD-10 - I26.99) nneeds labs for occult maignancy 04/19/2024 Deep vein thrombophlebitis of left leg (ICD-10 - I80.202) 08/13/2024 Hypertension (ICD-10 - I10) 08/13/2024 Insomnia (ICD-10 - G47.00) 09/07/2024 Chest pain (ICD-10 - R07.9) 09/07/2024 Supraventricular tachycardia, nonsustained (ICD-10 - I47.9) 10/23/2024 Increased urinary frequency (ICD-10 - R35.0) 10/23/2024 Supraventricular tachycardia, nonsustained (ICD-10 - I47.9) 10/23/2024 Blood pressure elevated (ICD-10 - I10) 11/13/2024 Hypertension (ICD-10 - I10) 11/13/2024 Supraventricular tachycardia (ICD-10 - I47.1) 11/28/2024 Unstable angina (ICD-10 - I20.0) 11/28/2024 PSA elevation (ICD-10 - R97.20) 01/16/2025 Hypertension (ICD-10 - I10) 01/16/2025 Fatigue (ICD-10 - R53.83) 02/21/2024 Hypertension (ICD-10 - I10) 02/21/2024 DVT (deep venous thrombosis) (ICD-10 - I82.409) 03/08/2024 Hypertension (ICD-10 - I10) 04/17/2024 Hypertension (ICD-10 - I10) 04/22/2024 Elevated PSA (ICD-10 - R97.20) 04/29/2024 Elevated PSA (ICD-10 - R97.20) 08/09/2024 Syncope (ICD-10 - R55) 08/16/2024 Deep vein thrombophlebitis of left leg (ICD-10 - I80.202) 11/07/2024 Deep vein thrombophlebitis of left leg (ICD-10 - I80.202) 12/18/2024 Depression (ICD-10 - F32.9) 01/09/2025 Hypertension (ICD-10 - I10) 01/16/2025 Dyspnea (ICD-10 - R06.00) 11/28/2024 Anxiety (ICD-10 - F41.9) 10/23/2024 UTI (urinary tract infection), uncomplicated (ICD-10 - N39.0) Drink plenty of water. Avoid drinks like coffee, alcohol and soft frinks, as these can irritate your bladder and aggravate your frequent or urgent need to urinate. Apply a warm heating pad to your abdomen to minimize bladder pressure or discomfort. You have been prescribed antibiotics for a urinary tract infection. Antibiotics may bother your stomach, so try taking them with a light meal (unless instructed otherwise by your pharmacist). It is important to take them until they are finished. You can use [id number] acetaminophen or ibuprofen if needed for pain. You should follow up with your Primary Care Physician or return to clinic if not improving in the next 3-5 days. 08/13/2024 Syncope (ICD-10 - R55) 02/21/2024 Left leg pain (ICD-10 - M79.605) 10/23/2024 Dysuria (ICD-10 - R30.0) 11/28/2024 Depression (ICD-10 - F32.9) 11/28/2024 Dyspnea (ICD-10 - R06.00) 10/23/2024 Sebaceous cyst (ICD-10 - L72.3) Plan Of Treatment Pending Test Test Name Order Date Exercise Stress Nuclear Test 03/07/2023 Holter Test 02/28/2023 IRON, TOTAL 10/23/2024 EEG 08/09/2024 CARDIO Echocardiogram 11/28/2024 PSA-FREE AND TOTAL 11/28/2024 EEG (Sleep Deprived) 08/13/2024 PSA, TOTAL 04/19/2024 BNP 01/16/2025 CA 19-9 04/19/2024 CEA 04/19/2024 CULTURE WOUND 10/23/2024 MAGNESIUM 01/16/2025 MRI BRAIN WO CON 08/13/2024 US CAROTID ART AZ 02/28/2023 US MARCO DOP LEG LT 11/07/2024 US MARCO DOP LEG LT 02/21/2024 XR HAND LT MIN 3V 03/07/2023 THYROID PANEL (T4/TSH/FREE T3) THYROID PANEL (T4/TSH/FREE T3) ECHOCARDIO M/2D COMPLETE 03/07/2023 ECHOCARDIO M/2D COMPLETE 02/28/2023 Free PSA 04/22/2024 Free PSA 04/29/2024 PSA Total+% Free 04/29/2024 *CARDIO Stress Test - Treadmill Exercise 09/07/2024 CMP (COMP MET MCCLURE) w/eGFR CKD-EPI 2024 CMP (COMP MET MCCLURE) w/eGFR CKD-EPI 2024 CBC WITH DIFF 01/16/2025 Insurance Providers Payer Name Payer Address Payer Phone Subscriber Number Group Number Insured Name Patient Relationship to Insured Coverage Start Date Coverage End Date [employer] MEDICARE ADV PLAN [address] [address] [place] [address] [id number] Jeb Riddle Self - patient is the insured 8 Medical (General) History Medical History History ICD Code Anxiety F41.9 Hypertension I10 Crohn disease K50.90 Surgical History Surgery Date(Month/Year) Crohns- bowel resection, 8ft taken out TONSILLECTOMY,UNDER 12YRS Hospitalization History Reason Date(Month/Year) bowel obstruction 08/2023 heart cath 2022
--- OUTSIDE RECORDS SUMMARY | 2025-01-16 12:01 | XMS_ITS | Clinical Summary ---
Author Organization [facility] Address [id number] [address] [place] [address] Care Team Providers Care Component Design Engineer Name Role Phone Rodriguez Gdowin MD Primary Care Provider [phone] Allergies No known active allergies Medications lisinopriL (PRINIVIL,ZESTR IL) 20 mg tablet Take 1 tablet (20 mg total) by mouth in the morning. Active apixaban (ELIQUIS) 5 mg tablet Take by mouth 2 (two) times a day. Active LORazepam (ATIVAN) 0.5 mg tablet Take 0.5 tablets (0.25 mg total) by mouth nightly as needed for anxiety. Active Social History Tobacco Use Types Packs/Day Years Used Date Smoking Tobacco: Never Tobacco Cessation:Counseling Given: Not Answered Childcare Answer Date Recorded Childcare Unknown 01/24/2019 Employment Answer Date Recorded Employment Unknown 01/24/2019 Hunger Screening Answer Date Recorded Within the past 12 months we worried whether our food would run out before we got money to buy more. Never True 08/09/2024 Within the past 12 months th e food we bought just didn't last and we didn't have money to get more. Never True 08/09/2024 Sex and Gender Information Value Date Recorded Sex Assigned at Not on file Legal Sex Male 5:11 PM EDT Gender Identity Not on file Sexual Orientation Not on file Last Filed Vital Signs Vital Sign Reading Time Taken Comments Blood Pressure 135/77 08/09/2024 1:30 PM EST Pulse 63 08/09/2024 1:30 PM EST Temperature 36.7 C (98 F) 08/09/2024 12:02 PM EST Respiratory Rate 14 08/09/2024 1:30 PM EST Oxygen Saturation 98% 08/09/2024 1:30 PM EST Inhaled Oxygen Concentration - - Weight 80.7 kg (178 lb) 08/09/2024 11:56 AM EST Height 188 cm (6' 2 ) 08/09/2024 11:56 AM EST Body Mass Index 22.85 08/09/2024 11:56 AM EST Plan of Treatment Health Maintenance Due Date Last Done Comments Depression Screening 1961 Tobacco Screening 1961 Zoster (Shingles) Vaccine (1 of 2) 1999 Fall Risk Screening 2014 COVID-19 Vaccine (2023-2 5 season) 2024 09/14/2023, 09/10/2020, 08/13/2020 Influenza Vaccine 04/15/2025 09/21/2023, 06/13/2009 DTaP,Tdap and Td Vaccines (2 - Td or Tdap) 09/14/2033 09/14/2023 Medical Devices Not on file Insurance [facility] MEDICARE Care Teams Component Design Engineer Relationship Specialty Start Date End Date Rodriguez Godwin MD [address] [facility], [place] [address] PCP - General Family Medicine 08/09/24
[2025-01-16 12:15] LABS: Basophils Percent Auto 0.4 % (0.2-2.0); Eosinophils Absolute Auto 0.2 10^3/uL (0.0-0.7); Eosinophils Percent Auto 1.8 % (0.9-7.0); Hematocrit 38.9 % (42.0-54.0); Hemoglobin 12.8 g/dL (14.0-18.0); Immature Granulocytes Abs Auto 0.03 10^3/uL (0.00-0.03); Immature Granulocytes Pct Auto 0.3 % (0.0-0.5); Lymphocytes Absolute Auto 2.3 10^3/uL (1.2-3.8); Lymphocytes Percent Auto 23.8 % (20.5-60.0); Mean Corpuscular HGB Conc 32.9 g/dL (29.9-35.2); Mean Corpuscular Hemoglobin 31.1 pg (25.9-34.0); Mean Corpuscular Volume 94.4 fL (80.0-94.0); Mean Platelet Volume 10.4 fL (9.5-13.5); Monocytes Percent Auto 10.1 % (1.7-12.0); Neutrophils Absolute Auto 6.1 10^3/uL (1.4-6.5); Neutrophils Percent Auto 63.6 % (43.0-75.0); Platelet Count 264 10^3/uL (150-450); Red Blood Count 4.12 10^6/uL (4.70-6.10); White Blood Count 9.6 10^3/uL (4.0-11.0)
[2025-01-16 12:44] LABS: Alanine Aminotransferase 26 U/L (16-63); Albumin Globulin Ratio 1.2; Albumin Level 3.6 g/dL (3.4-5.0); Alkaline Phosphatase 75 U/L (46-116); Anion Gap 13.4; Aspartate Amino Transferase 13 U/L (15-37); BUN Creatinine Ratio 35.3; Bilirubin Total 0.7 mg/dL (0.2-1.0); Calcium 8.9 mg/dL (8.5-10.1); Carbon Dioxide 24.3 mmol/L (21.0-32.0); Chloride 108 mmol/L (98-107); Estimated GFR (African America >60 (>=60 mL/min/1.73m^2); Estimated GFR (Non-African Ame 50 (>=60 mL/min/1.73m^2); Free T3 2.16 pg/mL (2.18-3.98); Globulin 3.1 g/dL; Glucose 109 mg/dL (74-106); Magnesium 1.6 mg/dL (1.8-2.4); Potassium 5.7 mmol/L (3.5-5.1); Sodium 140 mmol/L (136-145); Thyroid Stimulating Hormone 2.058 uIU/mL (0.358-3.740); Total Protein 6.7 g/dL (6.4-8.2)
== END 2025-01-16 11:54 | disposition home or self-care (01) ==
LOC: LAB 11:57
PROVIDERS: Family Provider Family Medicine; PCP Family Medicine; Visit Provider Family Medicine
DX: R53.83 Other fatigue (principal); R06.00 Dyspnea, unspecified; E03.9 Hypothyroidism, unspecified; I50.30 Unspecified diastolic (congestive) heart failure; I11.0 Hypertensive heart disease with heart failure
CPT/HCPCS: 36415; 80053; 83735; 83880; 84436; 84443; 84481; 85025

== ENCOUNTER 2025-01-21 09:18 | Outpatient (OUT) | payer MEDICARE, SELFPAY ==
--- OUTSIDE RECORDS SUMMARY | 2023-11-01 07:15 | XMS_ITS | Continuity of Care Document ---
Author Organization [facility] Address [address] [place] [address] Phone Care Team Providers Care Co Teacher Name Role Phone Yared Ashley Unavailable [...] Diagnoses Date Provider Providers Copied on Encounter [facility], [address] [place] [address], [id number], [place] tel:[phone] [facility] COVID-19 (chief complaint) Encounter for screening for COVID-19 Rubén Wiggins. [address] [place], [place], [id number], [place]. tel:[phone] [facility], [address] [place], [place], [id number], [place] tel:[phone] [facility] No Information Rubén Wiggins. [address] [place], [place], [id number], [place]. tel:[phone] [facility], [address] [place], [place], [id number], [place] tel:[phone] [facility] No Information Rubén Wiggins. [address] [place], [place], [id number], [place]. tel:[phone] [facility], [address] [place], [place], [id number], [place] tel:[phone] [facility] lab darw (chief complaint) Encounter for screening for respiratory tuberculosis Rubén Wiggins. [address] [place], [place], [id number], [place]. tel:[phone] Family History Family Member Type Diagnosis Age At Onset No Information Immunizations Vaccine Date Status Comments Hep B, adult, 3 dose administered Source: New Immunization Record Influenza, quadrivalent, hig h dose, injectable, split virus, preservative free, 0.7 mL dose, Fluzone High-Dose Quad 9740-1069 administered Source: New Immuniza tion Record Spikevax 12y+ administered Source: New Im munization Record Tdap (Boostrix) administered Source: New Immunization Record Payers Payer name Insurance type Covered alliance party ID Authoriza tion(s) Self Pay Cap [id number] Self Pay Cap 09 [id number] Self Pay Cap 09 [id number] Social History Type Description Quantity Date Captured [...] Of Treatment Date Type Action Status Goal Colonoscopy. Due on 024 due Goal Influenza vaccine. Due on due Goal Tdap due Goal CT-Colonography. Due on due Goal Lipid panel. Due on due Goal Unhealthy drug use screening . Due on due Goal FIT. Due on due Goal FOBT. Due on [...] Goal Depression screening. Due on due Goal CT-Colonography. Due on [...] due Goal FIT-DNA. Due on due Goal Lipid panel. Due on due Goal Unhealthy drug use screening . Due on due Goal PRAPARE ASSESSMENT. Due [...]
--- OUTSIDE RECORDS SUMMARY | 2025-01-15 11:00 | XMS_ITS | Encounter Summary ---
Author Organization [facility] Address [address] [place] [address] Care Team Providers Care Equipment Specialist Name Role Phone Rodriguez Godwin MD Primary Care Provider Reason for Visit * Consultation (Routine) - Pending Review Specialty Diagnoses / Procedures Referred By Jenny syed Referred To Contact Cardiology Diagnoses Atypical atrial flutter (CMS/HCC) SVT (supraventricular tachycardia) Procedures CT OFFICE/OUTPATIENT [facility] 60 MINUTES Bruce Bah MD [address] [facility] [address] [facility] [place] [address] Shiv Shirley MD [address] [place] [id number] Referral ID Status Reason Start Date Expiration Date Visits Requested Visits Authorized [id number] Pending Review Specialty Services Required 11/14/2024 11/14/2025 1 1 Encounter Details Date Type Department Care Team (Late st Contact Info) Description 01/15/2025 11:00 AM EDT Office Visit [facility] Heart at [facility] [address] [place] [address] Shiv Shirley MD [address] [place] [address] Atypical atrial flutter (CMS/HCC); SVT (supraventricular tachycardia); NARANJO (dyspnea on exertion) Social History Tobacco Use Types Packs/Day Years Used Date Smoking Tobacco: Former Cigarettes Smokeless Tobacco: Never Alcohol Use Standard Drinks/Week Comments Yes 0 (1 standard drink = 0.6 oz pur e alcohol) [place] Safety & Environment Answer Date Rec orded Fear of Current or Ex-Partner Not on file Emotionally Abused Not on file 10/07/2023 Physically Abused Not on file 10/07/2023 Sexually Abused Not on file 10/07/2023 Physically or Sexually Abused Not on file Sex and Gender Information Value Date Recorded Sex Assigned at Male 04/06/2023 10:50 AM EDT Gender Identity Male 04/06/2023 10:50 AM EDT Sexual Orientation Heterosexual or Straight 03/16 10:50 AM EDT documented as of this encounter Last Filed Vital Signs Vital Sign Reading Time Taken Comments Blood Pressure 116/62 01/15/2025 10:56 AM EDT Pulse 95 01/15/2025 10:56 AM EDT Temperature - - Respiratory Rate - - Oxygen Saturation 96% 01/15/2025 10:56 AM EDT Inhaled Oxygen Concentration - - Weight 83.9 kg (185 lb) 01/15/2025 10:56 AM EDT Height 188 cm (6' 2 ) 01/15/2025 10:56 AM EDT Body Mass Index 23.75 01/15/2025 10:56 AM EDT documented in this encounter Progress Notes * Shiv Shirley MD - 01/15/2025 11:00 AM EDT Images from the original note were not included. [facility] Consult Note Reason for visit: NSVT Patient is here today for a follow up office visit per Dr. Bah for SVT. Patient states he feels tired all the time SOB, NARANJO, decreased in durance and dizziness. Patient states he feel all his health problems are possible coming form when he had 3 shots Covid , hepatitis and flu. Previously with regard to the nonsustained VT that was noted he opted to be managed conservatively with beta-blockers rather than an EP study. He continues to feel extremely tired and recently had an exercise treadmill which did not reveal evidence of ischemia. He states that he can barely exercise even one fourth of what he could do before and feels exhausted. He had a Holter monitor placed on 09/24/2024 which revealed nonsustained runs of SVT as noted below Review of Systems Constitutional: Positive for malaise/fatigue. Cardiovascular: Positive for dyspnea on exertion. Respiratory: Positive for shortness of breath. Neurological: Positive for dizziness. 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 Bruce Orellana. He was noted to have nonsustained VT on EKGmonitoring in the past and at that time [...] and states that he is reasonably doing wellafter having the monitor taken off. is currently on Toprol- XL 25 mg once daily. PMH: Past Medical History: Diagnosis Date Chest pain Hypertension PSH: Past Surgical History: Procedure Laterality Date BOWEL RESECTION CARDIAC CATHETERIZATION SH: Social Determinants of Health Tobacco Use: Medium Risk (01/15/2025) Patient History Smoking Tobacco Use: Former Smokeless Tobacco Use: Never Passive Exposure: Not on file Alcohol Use: Not on file Financial Resource Strain: Not on file Food Insecurity: No Food Insecurity (08/09/2024) Received from [facility] Hunger Screening Within the past 12 months we worried whether our food would run out before we got money to buy more.: Never True Within the past 12 months the food we bought just didn't last and we didn't have money to get more.: Never True Transportation Needs: Not on file Physical Activity: Not on file Stress: Not on file Social Connections: Not on file Intimate Partner Violence: Unknown (10/07/2023) [place] Safety & Environment Fear of Current or Ex-Partner: Not on file Emotionally Abused: Not on file Physically Abused: Not on file Sexually Abused: Not on file Physically or Sexually Abused: Not on file Depression: Not on file Housing Stability: Not on file Utilities: Not on file Health Literacy: Not on file Allergies: Allergies Allergen Reactions Atorvastatin Other myalgias Weight: 83.9kg Visit Vitals BP 116/62 (BP Location: Left arm, Patient Position: Sitting) Pulse 95 Ht 1.88 m (6' 2 ) Wt 83.9 kg (185 lb) SpO2 96% BMI 23.75 kg/m?? Smoking Status Former BSA 2.09 m?? Meds: Current Outpatient Medications on File Prior to Visit Medication Sig Dispense Refill cloNIDine (Catapres) 0.1 mg tablet Take 0.2 mg by mouth Twice daily at 6am and 6pm. ezetimibe (Zetia) 10 mg tablet TAKE 1 TABLET BY MOUTH EVERY DAY IN THE MORNING 90 tablet 3 isosorbide mononitrate ER (Imdur) 30 mg 24 hr tablet Take 30 mg by mouth in the morning. Do not crush or chew. lisinopril 40 mg tablet Take 1 tablet (40 mg) by mouth in the morning. 90 tablet 3 LORazepam (Ativan) 1 mg tablet every 12 (twelve) hours. magnesium 30 mg tablet Take 30 mg by mouth in the morning and at bedtime. mesalamine (Delzicol) [address] capsule Take 2 capsules by mouth in the morning and at bedtime. metoprolol succinate XL (Toprol-XL) 25 mg 24 hr tablet TAKE 1 TABLET (25 MG) BY MOUTH IN THE MORNING . DO NOT CRUSH OR CHEW 90 tablet 3 tamsulosin (Flomax) 0.4 mg 24 hr capsule Take 0.4 mg by mouth in the morning. apixaban (Eliquis) 2.5 mg tablet Take 1 tablet (2.5 mg) by mouth two times daily. (Patient not taking: Reported on 01/15/2025) 180 tablet 3 aspirin 81 mg EC tablet Take 81 mg by mouth in the morning. pravastatin (Pravachol) 20 mg tablet TAKE 1 TABLET BY MOUTH EVERY DAY IN THE MORNING (Patient not taking: Reported on 01/15/2025) 90 tablet 3 topiramate 50 mg tablet 50 mg 1 (one) time each day at the same time. traZODone (Desyrel) 50 mg tablet 0.5 tablet [...] pain+, no back pain, no swelling in theextremities Integumentary Skin no rash, no ulcer, no [...] Cardiovascular Rate And Rhythm: regular Heart Sounds: normal S1, normal s2, no gallop Systolic Murmur: not heard Diastolic Murmur: not heard Extremities: no cyanosis, no edema, no peripheral signs of emboli Peripheral Pulses Radial Pulse: normal Abdomen Inspection and Palpation: soft, non distended, no bruit, non tender Musculoskeletal Inspection: no joint swelling Neurologic Gait: normal gait Skin Inspection and Palpation: warm and dry Nails: no clubbing Labs: @LABRESULTS@ No results found for: CHOLESTEROL TOTAL , HDL , LDL CALC , LDL DIRECT , TRIGLYCERIDES , TSH , T3 TOTAL , T4 TOTAL , THYROID PEROXIDASE AB , BNP EKG: No results found for this or any previous visit (from the past 4464 hour(s)). Imaging and other tests Cardiac catheterization 04/06/2023: Impression/Findings: Coronary angiogram shows non-obstructive coronary artery disease. ECG 04/06/2023: Normal sinus rhythm, normal ECG. Echocardiogram 12/18/24 03/14/2023: Moderate concentric left ventricular hypertrophy, left ventricular systolic function is normal, LVEF is 55%, normal right ventricular size and systolic function, moderate LA dilatation, grade 2 diastolic dysfunction, mild to moderate aortic and mitral regurgitation, mildly elevated right-sided pressures. Carotid ultrasound 03/02/2023: No significant stenosis. Assessment and Plan: - nonsustained VT: Patient is being managed conservatively with beta-blockers - multiple episodes of nonsustained atrial tachycardia: Currently he is on beta- blockers and given that I do not find any episodes of atrial fibrillation I do not feel compelled to start him on antiarrhythmic drugs. - Fatigue: I have advised the patient undergo home sleep apnea study and will defer to Dr. KHAN to decide whether patient can benefit from a nuclear perfusion study versus cardiac cath. - Crohn's disease - nonobstructive CAD Shiv Shirley MD Cardiac Electrophysiology [facility] documented in this encounter Plan of Treatment Scheduled Orders Name Type Priority Associated Diagnoses Orde r Schedule Lexiscan Stress Myocardial Perfusion Imaging Cardiac Services Routine NARANJO (dyspnea on exertion) Expected: 01/15/2025 (Approximate), Expires: 01/15/2027 documented as of this encounter Visit Diagnoses Diagnosis Atypical atrial flutter (CMS/HCC) SVT (supraventricular tachycardia) Other specified cardiac dysrhythmias NARANJO (dyspnea on exertion) Other dyspnea and respiratory abnormality documented in this encounter Care Teams Equipment Specialist Relationship Specialty Start Date End Date Rodriguez Godwin MD [address] [facility] [address] [address] PCP - General 03/21/23 documented as of this encounter
--- NOTE | 2025-01-21 | NM_ITS ---
Patient Name: JEB TOBIAS MR#: [id number] : 1950 Exam Date: 01/21/2025 Ordering Doctor: MELIA KINNEY RADIOLOGY REPORT PROCEDURE: NM MIQUEL PERF SPECT REST STR COMPARISON: None. INDICATIONS: DYSPNEA ON EXERTION TECHNIQUE: Exam Description: Stress/Rest one day protocol gated SPECT Rest Imagin.4 mCi Tc-99m Cardiolite IV on 01/21/2025 Stress Imaging 27.0 mCi Tc-99m Cardiolite IV on 01/21/2025 Exercise Protocol: 0.4 mg Lexiscan given IV Heart Rate (bpm): Rest: 66 Max: 111 PMHR: 76 Blood Pressure: Rest: 154/82 Max: 160/80 Symptoms: Rest and peak stress ECG findings were pending and the Lexiscan EKG portion of the study was pending per attending physician [facility] . For more details please see separate cardiac stress test report. FINDINGS: QUALITY OF STUDY: Good PERFUSION DEFECT: LOCATION: Mid and basal inferior SIZE: Small to medium SEVERITY: Mild TYPE: Fixed with adequate contractility and thickening WALL MOTION: Normal LV SIZE: 95 mL. TID / TCD: 0.9 LVEF:EDV Calculated EF 64%. SUMMARY: Normal myocardial perfusion imaging study with diaphragmatic attenuation CONCLUSION: Normal myocardial perfusion stress study, no ischemia or infarction Normal left ventricle systolic function, ejection fraction 64% No transient ischemic dilatation, TID 0.9 Lexiscan EKG stress test result is reported separately Dictated by: Aggie Starks MD on 01/21/2025 at 16:39 Approved by: Aggie Starks MD on 01/21/2025 at 16:42
--- OUTSIDE RECORDS SUMMARY | 2025-01-21 09:20 | XMS_ITS | Encounter Summary ---
Author Organization [facility] Address [address] [place] [address] Care Team Providers Care Tool Specialist Name Role Phone Rodriguez Godwin MD Primary Care Provider [phone] Encounter Details Date Type Department Care Team (Late st Contact Info) Description 01/15/2025 Orders Only [facility] Heart at [facility] [address] [place] [address] Jordyn Harley MA Social History [...] on filedocumented in this encounter Care Teams Tool Specialist Relationship Specialty Start Date End Date Rodriguez Godwin MD [address] [facility] [place], [place] [phone] PCP - General 03/21/23 documented as of this encounter
--- OUTSIDE RECORDS SUMMARY | 2025-01-21 09:20 | XMS_ITS | Referral Summary ---
Author Organization [facility] Address [address] [place] [address] Care Team Providers Care Head Of Training And Development Name Role Phone Rodriguez Godwin MD Primary Care Provider [phone] Encounters Date Type Department Care Team Description 01/15/2025 Orders Only [address] [phone] Jordyn Harley MA 01/15/2025 Orders Only [address] [address] ProviderAmanda MD 01/15/2025 11:00 AM EDT Office Visit [address] [address] Shiv Shirley MD Atypical atrial flutter (CMS/HCC); SVT (supraventricular tachycardia); NARANJO (dyspnea on exertion) 01/14/2025 Orders Only [address] [address] ProviderAmanda MD 12/19/[address] [address] Bruce Bah MD Coronary artery disease involving [place] coronary artery of [place] heart without angina pectoris 12/10/[address] [address] Bruce Bah MD Coronary artery disease involving [place] coronary artery of [place] heart without angina pectoris 11/14/2024 2:45 PM EDT Office Visit [facility] [address] [place] [address] Bruce Bah MD Atypical atrial flutter (CMS/HCC) (Primary Dx); SVT (supraventricular tachycardia); History of pulmonary embolism; Coronary artery disease involving [place] coronary artery of [place] heart without angina pectoris; Primary hypertension; LVH [...] same time. 12/07/2023 Active lisinopril 40 mg tabletIndications:P rimary hypertension,Uncont rolled hypertension Take 1 tablet (40 mg) by mouth in the morning. 90 tablet 3 12/09/2023 Active apixaban (Eliquis) 2.5 mg tabletIndications:H istory of DVT (deep vein thrombosis),History of pulmonary embolism Take 1 tablet (2.5 mg) by mouth two times daily. 180 tablet 3 09/24/2024 09/24/2025 Active Additional Information Patient not taking.Reported on 01/15/2025 pravastatin (Pravachol) 20 mg tabletIndications:C oronary artery disease involving [place] coronary artery of [place] heart without angina pectoris TAKE 1 TABLET BY MOUTH EVERY DAY IN THE MORNING 90 tablet 3 12/10/2024 Active Additional Information Patient not taking.Reported on 01/15/2025 metoprolol succinate XL (Toprol-XL) 25 mg 24 hr tabletIndications:C oronary artery disease involving [place] coronary artery of [place] heart without angina pectoris TAKE 1 TABLET (25 MG) BY MOUTH IN THE MORNING . DO NOT CRUSH OR CHEW 90 tablet 3 12/19/2024 12/19/2025 Active ezetimibe (Zetia) 10 mg tabletIndications:C oronary artery disease involving [place] coronary artery of [place] heart without angina pectoris TAKE 1 TABLET BY MOUTH EVERY DAY IN THE MORNING 90 tablet 3 12/19/2024 Active tamsulosin (Flomax) 0.4 mg 24 hr capsule Take 0.4 mg by mouth in the morning. 12/11/2024 12/06/2025 Active Active Problems Problem Noted Date Diagnosed Date [...] and collapse 03/15/2023 Overview (03/21/2023): ED visit [facility] for dehydration, near syncope. Assessment & Plan [...] PROCEDURES from Last 3 Months Care Teams Head Of Training And Development Relationship Specialty Start Date End Date Rodriguez Godwin MD [address] [place] [address] PCP - General 03/21/23
--- OUTSIDE RECORDS SUMMARY | 2025-01-21 09:20 | XMS_ITS | Encounter Summary ---
Author Organization [facility] Address [address] [place] [address] Care Team Providers Care Documentation Engineer Name Role Phone Rodriguez Godwin MD Primary Care Provider Encounter Details Date Type Department Care Team (Late st Contact Info) Description 01/15/2025 Orders Only [facility] Heart at [facility] [address] [place] [address] ProviderAmanda MD [address] [place] [address] Social History Tobacco Use Types Packs/Day Years [...] on filedocumented in this encounter Care Teams Documentation Engineer Relationship Specialty Start Date End Date Rodriguez Godwin MD [address] [facility] [place] [address] PCP - General 03/21/23 documented as of this encounter
--- OUTSIDE RECORDS SUMMARY | 2025-01-21 09:21 | XMS_ITS | Clinical Summary ---
Author Organization [employer] Address [id number] [address] [place] [address] Care Team Providers Care Mini Shifter Name Role Phone Rodriguez Godwin MD Primary Care Provider [phone] Allergies No known active allergies Medications lisinopriL [...] 09/14/2023 Medical Devices Not on file Insurance [facility] MEDICARE Care Teams Mini Shifter Relationship Specialty Start Date End Date Rodriguez Godwin MD [address] [facility], [place] [address] PCP - General Family Medicine 08/09/24
--- OUTSIDE RECORDS SUMMARY | 2025-01-21 09:21 | XMS_ITS | Clinical Summary ---
Author Organization [facility] Address [address] [place] [address] Care Team Providers Care Weight Loss Physician Name Role Phone Rodriguez Godwin MD Primary Care Provider [phone] Allergies Active Allergy Reactions Criticality Noted Date [...] 20 mg tabletIndications:C oronary artery disease involving hoh coronary artery of hoh heart without angina pectoris TAKE 1 TABLET BY MOUTH EVERY DAY IN THE MORNING 90 tablet 3 12/10/2024 Active Additional Information Patient not taking.Reported on 01/15/2025 metoprolol succinate XL (Toprol-XL) 25 mg 24 hr tabletIndications:C oronary artery disease involving hoh coronary artery of hoh heart without angina pectoris TAKE 1 TABLET (25 MG) BY MOUTH IN THE MORNING . DO NOT CRUSH OR CHEW 90 tablet 3 12/19/2024 12/19/2025 Active ezetimibe (Zetia) 10 mg tabletIndications:C oronary artery disease involving hoh coronary artery of hoh heart without angina pectoris TAKE 1 TABLET [...] and collapse 03/15/2023 Overview (03/21/2023): ED visit [facility] for dehydration, near syncope. Assessment & Plan (03/21/2023 2:50 PM EDT): In light pt admits 2 episodes of syncope while on vacation in [place] with his daughter- denied any symptoms prior to waking up on the floor- broke 3 front teeth in one episode. Encounters Date Type Department Care Team Description 01/15/2025 11:00 AM EDT Office Visit [address] [place] [address] Shiv Shirley MD Atypical atrial flutter (CMS/HCC); SVT (supraventricular tachycardia); NARANJO (dyspnea on exertion) 01/15/2025 Orders Only [facility] [address] [facility] [place] [address] Jordyn Harley MA 01/15/2025 Orders Only [address] [place] [address] ProviderAmanda MD 01/14/2025 Orders Only [address] [place] [address] ProviderAmanda MD 12/19/[address] [place] [address] Bruce Bah MD Coronary artery disease involving hoh coronary artery of hoh heart without angina pectoris 12/10/[address] [place] [address] Bruce Bah MD Coronary artery disease involving hoh coronary artery of hoh heart without angina pectoris 11/14/2024 2:45 PM EDT Office Visit [address] [place] [address] Bruce Bah MD Atypical atrial flutter (CMS/HCC) (Primary Dx); SVT (supraventricular tachycardia); History of pulmonary embolism; Coronary artery disease involving hoh coronary artery of hoh heart without angina pectoris; Primary hypertension; LVH [...] Modality Chest Computed Radiogr aphy Historical Provider MD IMG XR PROCEDURES from Last 3 Months Care Teams Weight Loss Physician Relationship Specialty Start Date End Date Rodriguez Godwin MD [address] [facility] [place] [facility] [address] PCP - General 03/21/23
--- OUTSIDE RECORDS SUMMARY | 2025-01-21 09:21 | XMS_ITS | Clinical Summary ---
Author Organization [facility] Healthcare Address [address] [facility] [place] [address] Care Team Providers Care Television Production Technician Name Role Phone Errol Bojorquez DO Unavailable Rodriguez Godwin MD Primary Care Provider [phone] [...] Description 11/05/2024 9:00 AM EDT Office Visit [place] [address] [place] [address] Errol Bojorquez DO Syncope, unspecified syncope type (Primary Dx); Atrial flutter, unspecified type (CMS/HCC) 11/05/2024 Bamboo flowsheet [facility] [address] [place] [address] Errol Bojorquez DO from Last 3 [...] 24 Insurance [employer] MEDICARE ADVANTAGE Care Teams Television Production Technician Relationship Specialty Start Date End Date Rodriguez Godwin MD PCP - General Family Medicine 11/05/24 Errol Bojorquez DO Referring Physician Neurology 11/05/24
--- OUTSIDE RECORDS SUMMARY | 2025-01-21 09:21 | XMS_ITS | Encounter Summary ---
Author Organization [facility] Address [address] [place] [address] Care Team Providers Care It Network Administrator Name Role Phone Rodriguez Godwin MD Primary Care Provider Reason for Visit * Reason Comments Med Refill Encounter Details Date Type Department Care Team (Late st Contact Info) Description 12/10/2024 Refill [facility] Heart at [facility] [address] [place] [address] Bruce Bah MD [address] [facility] [place] [address] Coronary artery disease involving [place] coronary artery of [place] heart without angina pectoris Social History Tobacco [...] Visit Diagnoses Diagnosis Coronary artery disease involving [place] coronary artery of [place] heart without angina pectoris documented in this encounter Care Teams It Network Administrator Relationship Specialty Start Date End Date Rodriguez Godwin MD [address] [place] [address] PCP - General 03/21/23 documented as of this encounter
--- NOTE | 2025-01-21 11:16 | PC.NURSE ---
Nursing Note Cardiac Stress Test Reviewed: Medication, allergies and patient history reviewed. Stress Test: [x ] Patient tolerated stress test well. [ ] Patient unable to tolerate walking on treadmill. Switched to Lexiscan stress test. [x ] No chest pain noted per patient [ ] Chest pain that resolved prior to leaving stress lab. [x ] No dyspnea noted. [ ] Dyspnea that resolved prior to leaving stress lab. [x ] Patient left stress lab asymptomatic and hemodynamically stable. [ ] Patient taken to the Emergency Room due to non-resolving symptoms following stress test. [ ] Patient achieved target heart rate. [ ] Patient unable to achieve target heart rate. [ ] Aminophylline administered as reversal agent to Lexiscan (Regadenoson). [ ] Nitro administered. Nursing Comments:Pt had Lexiscan test done and tolerated well. No CP noted. Pt requested stat potassium and a fluid bolus prior to test. Potassium was drawn and 500 mL NS bolus was given prior to Lexiscan test. Pt states he felt much better after the bolus. Pt ambulated to cafeteria for breakfast prior to second set of images.
[2025-01-21] MEDS: 0.9 % SODIUM CHLORIDE 500 ML IV (11:19)
[2025-01-21] MEDS: REGADENOSON 0.4 MG/5 ML SYRINGE IV (11:19)
--- NOTE | 2025-01-21 16:33 | PM.STRESS ---
Stress Test Stress Test Allergies Allergy/AdvReac Type Severity Reaction Status Date / Time Fish Containing Products AdvReac Severe Abdominal Verified 11/30/24 07:10 Pain Requesting physician: Shiv Shirley Procedure: Lexiscan nuclear stress test General Information: Reason for Stress Test: [Dyspnea on exertion, fatigue] Cardiac History and Risk Factors: [Hypertension, age, and gender] Resting 12 - Lead Electrocardiogram: Normal sinus rhythm, heart rate 60 bpm, sinus arrhythmia, normal EKG Stress Test: Protocol: [Lexiscan] Exercise Capacity: [Not applicable] Blood Pressure Response: [Normal] Rhythm: [Sinus] ST - Response: [No change] Patient Response: [No arrhythmia] Resting heart rate 66 bpm, resting blood pressure 154/82 mmHg The patient was injected with 0.4 mg of IV Lexiscan and he was monitored for few minutes. Max heart rate 111 bpm which represents 76% of age-predicted maximum heart rate and max blood pressure 160/80 mmHg. Patient did not have any symptoms. EKG throughout the test did not show any significant T or ST changes or any arrhythmias Interpretation: Negative Lexiscan EKG stress test for ischemia The nuclear myocardial perfusion stress images result will be reported separately Aggie Starks MD, FACC
== END 2025-01-21 09:19 | disposition home or self-care (01) ==
PROVIDERS: Family Provider Family Medicine; PCP Internal Medicine Cardiovascular Disease; Visit Provider Internal Medicine Cardiovascular Disease
DX: R06.09 Other forms of dyspnea (principal)
CPT/HCPCS: 78452; 93017; A9500; J2785

== ENCOUNTER 2025-01-21 10:12 | Outpatient (OUT) | payer MEDICARE, SELFPAY ==
--- OUTSIDE RECORDS SUMMARY | 2023-11-01 07:15 | XMS_ITS | Continuity of Care Document ---
Author Organization [facility] Address [address] [place] [address] Phone Care Team Providers Care Water Trainer Name Role Phone Yared Ashley Unavailable Unavailable [...] Diagnoses Date Provider Providers Copied on Encounter [facility], [address] [place] [address], [id number], [place] tel:[phone] [facility] COVID-19 (chief complaint) Encounter for screening for COVID-19 Rubén Wiggins. [address] [place], [place], [id number], [place]. tel:[phone] [facility], [address] [place], [place], [id number], [place] tel:[phone] [facility] No Information Rubén Wiggins. [address] [place], [place], [id number], [place]. tel:[phone] [facility], [address] [place], [place], [id number], [place] tel:[phone] [facility] No Information Rubén Wiggins. [address] [place], [place], [id number], [place]. tel:[phone] [facility], [address] [place], [place], [id number], [place] tel:[phone] [facility] lab darw (chief complaint) Encounter for screening for respiratory tuberculosis Rubén Wiggins. [address] [place], [place], [id number], [place]. tel:[phone] Family History Family Member Type Diagnosis Age At Onset No Information Immunizations Vaccine Date Status Comments Hep B, adult, 3 dose administered Source: New Immunization Record Influenza, quadrivalent, hig h dose, injectable, split virus, preservative free, 0.7 mL dose, Fluzone High-Dose Quad 1309-4351 administered Source: New Immuniza tion Record Spikevax 12y+ administered Source: New Im munization Record Tdap (Boostrix) administered Source: New Immunization Record Payers Payer name Insurance type Covered libertarian ID Authoriza tion(s) Self Pay Cap 09 [id number] Self Pay Cap [id number] Self Pay Cap [id number] Social History Type Description Quantity Date Captured [...] Treatment Date Type Action Status Goal Tdap Vaccine. Due on 2033 due Goal Depression screening. Due on due Goal Zoster vaccine (). Due on due Goal FIT-DNA. Due on due Goal PRAPARE ASSESSMENT. Due on due Goal Hepatitis C screening. Due o n due Goal FOBT. Due on due Goal Colonoscopy. Due on due Goal Influenza vaccine. Due on due Goal Tdap due Goal CT-Colonography. Due on due Goal Lipid panel. Due on due Goal Unhealthy drug use screening . Due on due Goal FIT. Due on due Goal Hep A. Due on du e Goal FIT-DNA. Due on due Goal Zoster vaccine (). Due on due Goal PRAPARE ASSESSMENT. Due on due Goal FOBT. Due on due Goal CT-Colonography. Due on due Goal Depression screening. Due on due Goal Colonoscopy. Due on due Goal Hepatitis C screening. Due o n due Goal FIT. Due on due Goal Unhealthy drug use screening . Due on due Goal Influenza vaccine. Due on due Goal Tdap Vaccine. Due on 2033 due Goal Lipid panel. Due on due Goal Tdap due Goal Unhealthy drug use screening . Due on due Goal Lipid panel. Due on due Goal FIT-DNA. Due on due Goal Zoster vaccine (). Due on due Goal Colonoscopy. Due on due Goal FOBT. Due on due Goal Tdap Vaccine. Due on 2033 due Goal Depression screening. Due on due Goal FIT. Due on due Goal Hepatitis C screening. Due o n due Goal Tdap due Goal Influenza vaccine. Due on due Goal CT-Colonography. Due on [...]
--- OUTSIDE RECORDS SUMMARY | 2025-01-15 11:00 | XMS_ITS | Encounter Summary ---
Author Organization [facility] Address [address] [place] [address] Care Team Providers Care Personal Care Aid Name Role Phone Rodriguez Godwin MD Primary Care Provider [phone] Reason for Visit * Consultation (Routine) - Pending Review Specialty Diagnoses / Procedures Referred By Jenny syed Referred To Contact Cardiology Diagnoses Atypical atrial flutter (CMS/HCC) SVT (supraventricular tachycardia) Procedures [place] OFFICE/OUTPATIENT [facility] 60 MINUTES Bruce Bah MD [address] [facility] [address] [facility] [place] [address] Shiv Shirley MD [address] [place] [id number] Referral ID Status Reason Start Date Expiration Date Visits Requested Visits Authorized [id number] Pending Review Specialty Services Required 11/14/2024 11/14/2025 1 1 Encounter Details Date Type Department Care Team (Late st Contact Info) Description 01/15/2025 11:00 AM EDT Office Visit [facility] Heart at [facility] [address] [place] [address] Shiv Shirley MD [address] [place] [address] Atypical atrial flutter (CMS/HCC); SVT (supraventricular tachycardia); NARANJO (dyspnea on exertion) Social History Tobacco Use Types Packs/Day Years Used Date Smoking Tobacco: Former Cigarettes Smokeless Tobacco: Never Alcohol Use Standard Drinks/Week Comments Yes 0 (1 standard drink = 0.6 oz pur e alcohol) [place] Safety & Environment Answer Date Rec orded [...] Insecurity: No Food Insecurity (08/09/2024) Received from [facility] Hunger Screening Within the past 12 [...] nonobstructive CAD Shiv Shirley MD Cardiac Electrophysiology [facility] documented in this encounter Plan of Treatment [...] abnormality documented in this encounter Care Teams Personal Care Aid Relationship Specialty Start Date End Date Rodriguez Godwin MD [address] [facility] [address] [address] PCP - General 03/21/23 documented as of this encounter
--- OUTSIDE RECORDS SUMMARY | 2025-01-21 10:16 | XMS_ITS | Encounter Summary ---
Author Organization [facility] Address [address] [place] [address] Care Team Providers Care Scientist Engineer Name Role Phone Rodriguez Godwin MD Primary Care Provider [phone] Encounter Details Date Type Department Care Team (Late st Contact Info) Description 01/15/2025 Orders Only [facility] Heart at [facility] [address] [place] [address] Jordyn Harley MA Social History [...] on filedocumented in this encounter Care Teams Scientist Engineer Relationship Specialty Start Date End Date Rodriguez Godwin MD [address] [facility] [place], [place] [phone] PCP - General 03/21/23 documented as of this encounter
--- OUTSIDE RECORDS SUMMARY | 2025-01-21 10:16 | XMS_ITS | Clinical Summary ---
Author Organization [facility] Address [address] [place] [address] Care Team Providers Care Escalator Operator Name Role Phone Rodriguez Godwin MD Primary Care Provider [phone] Allergies Active Allergy Reactions Criticality Noted Date [...] 20 mg tabletIndications:C oronary artery disease involving [place] coronary artery of [place] heart without angina pectoris TAKE 1 TABLET BY MOUTH EVERY DAY IN THE MORNING 90 tablet 3 12/10/2024 Active Additional Information Patient not taking.Reported on 01/15/2025 metoprolol succinate XL (Toprol-XL) 25 mg 24 hr tabletIndications:C oronary artery disease involving [place] coronary artery of [place] heart without angina pectoris TAKE 1 TABLET (25 MG) BY MOUTH IN THE MORNING . DO NOT CRUSH OR CHEW 90 tablet 3 12/19/2024 12/19/2025 Active ezetimibe (Zetia) 10 mg tabletIndications:C oronary artery disease involving [place] coronary artery of [place] heart without angina pectoris TAKE 1 TABLET [...] and collapse 03/15/2023 Overview (03/21/2023): ED visit [facility] for dehydration, near syncope. Assessment & Plan (03/21/2023 2:50 PM EDT): In light pt admits 2 episodes of syncope while on vacation in [place] with his daughter- denied any symptoms prior to waking up on the floor- broke 3 front teeth in one episode. Encounters Date Type Department Care Team Description 01/21/2025 Orders Only [facility] [address] [place] [facility] [address] Yuridia Nuñez MA Hypokalemia 01/15/2025 11:00 AM EDT Office Visit [facility] [address] [place] [facility] [address] Shiv Shirley MD Atypical atrial flutter (CMS/HCC); SVT (supraventricular tachycardia); NARANJO (dyspnea on exertion) 01/15/2025 Orders Only [facility] [address] [place] [facility] [address] Jordyn Harley MA 01/15/2025 Orders Only [address] [place] [address] ProviderAmanda MD 01/14/2025 Orders Only [facility] [address] [facility] [place] [address] ProviderAmanda MD 12/19/[address] [place] [address] Bruce Bah MD Coronary artery disease involving [place] coronary artery of [place] heart without angina pectoris 12/10/2024 Refill [facility] [address] [place] [facility] [address] Bruce Bah MD Coronary artery disease involving [place] coronary artery of [place] heart without angina pectoris 11/14/2024 2:45 PM EDT Office Visit [address] [place] [address] Bruce Bah MD Atypical atrial flutter (CMS/HCC) (Primary Dx); SVT (supraventricular tachycardia); History of pulmonary embolism; Coronary artery disease involving [place] coronary artery of [place] heart without angina pectoris; Primary hypertension; LVH [...] Anatomical Region Laterality Modality Ultrasound Historical Provider MD AVINA ECHO PROCEDURE S * High Sensitivity Troponin [...] Provider MD LAB BLOOD ORDERAB LES * XR chest 2 views (11/25/2024 9:44 AM EDT) Anatomical Region Laterality Modality Chest Computed Radiogr aphy Historical Provider IMG XR PROCEDURES from Last 3 Months Care Teams Escalator Operator Relationship Specialty Start Date End Date Rodriguez Godwin MD [address] [facility] [address] [address] PCP - General 03/21/23
--- OUTSIDE RECORDS SUMMARY | 2025-01-21 10:16 | XMS_ITS | Encounter Summary ---
Author Organization [facility] Address [address] [place] [address] Care Team Providers Care Rn Teacher Name Role Phone Rodriguez Godwin MD Primary Care Provider [phone] Encounter Details Date Type Department Care Team (Late st Contact Info) Description 01/15/2025 Orders Only [facility] Heart at [facility] [address] [place] [address] ProviderAmanda MD [address] [place] [address] Social History Tobacco Use Types Packs/Day Years [...] on filedocumented in this encounter Care Teams Rn Teacher Relationship Specialty Start Date End Date Rodriguez Godwin MD [address] [facility] [address] PCP - General 03/21/23 documented as of this encounter
--- OUTSIDE RECORDS SUMMARY | 2025-01-21 10:16 | XMS_ITS | Clinical Summary ---
Author Organization [facility] Healthcare Address [address] [facility] [place] [address] Care Team Providers Care Freight Unloader Name Role Phone Errol Bojorquez DO Unavailable [phone] Rodrgiuez Godwin MD Primary Care Provider [phone] Allergies [...] Description 11/05/2024 9:00 AM EDT Office Visit [place] [address] [place] [address] Errol Bojorquez DO Syncope, unspecified syncope type (Primary Dx); Atrial flutter, unspecified type (CMS/HCC) 11/05/[address] [facility] [address] [place] [phone] Errol Bojorquez DO from Last 3 [...] 24 Insurance [employer] MEDICARE ADVANTAGE Care Teams Freight Unloader Relationship Specialty Start Date End Date Rodriguez Godwin MD PCP - General Family Medicine 11/05/24 Errol Bojorquez DO Referring Physician Neurology 11/05/24
--- OUTSIDE RECORDS SUMMARY | 2025-01-21 10:16 | XMS_ITS | Clinical Summary ---
Author Organization [employer] [facility] Address [id number] [address] [place] [address] Care Team Providers Care Hand Bender Name Role Phone Rodriguez Godwin MD Primary Care Provider [phone] Allergies No known active allergies Medications lisinopriL [...] 09/14/2023 Medical Devices Not on file Insurance [facility] MEDICARE Care Teams Hand Bender Relationship Specialty Start Date End Date Rodriguez Godwin MD [address] [facility], [place] [address] PCP - General Family Medicine 08/09/24
--- OUTSIDE RECORDS SUMMARY | 2025-01-21 10:16 | XMS_ITS | Referral Summary ---
Author Organization [facility] Address [address] [place] [address] Care Team Providers Care Casing Finisher And Stuffer Name Role Phone Rodriguez Godwin MD Primary Care Provider [phone] Encounters Date Type Department Care Team Description 01/21/2025 Orders Only [address] [address] Yuridia Nuñez MA Hypokalemia 01/15/2025 Orders Only [address] [place] [address] Jordyn Harley MA 01/15/2025 Orders Only [address] [address] Amanda Shah MD 01/15/2025 11:00 AM EDT Office Visit [address] [address] Shiv Shirley MD Atypical atrial flutter (CMS/HCC); SVT (supraventricular tachycardia); NARANJO (dyspnea on exertion) 01/14/2025 Orders Only [address] [address] Amanda Shah MD 12/19/[address] [address] Bruce Bah MD Coronary artery disease involving [place] coronary artery of [place] heart without angina pectoris 12/10/2024 Refill [facility] [address] [place] [facility] [address] Bruce Bah MD Coronary artery disease involving [place] coronary artery of [place] heart without angina pectoris 11/14/2024 2:45 PM EDT Office Visit [facility] [address] [place] [facility] [address] Bruce Bah MD Atypical atrial flutter (CMS/HCC) (Primary Dx); SVT (supraventricular tachycardia); History of pulmonary embolism; Coronary artery disease involving [place] coronary artery of [place] heart without angina pectoris; Primary hypertension; LVH [...] 20 mg tabletIndications:C oronary artery disease involving [place] coronary artery of [place] heart without angina pectoris TAKE 1 TABLET BY MOUTH EVERY DAY IN THE MORNING 90 tablet 3 12/10/2024 Active Additional Information Patient not taking.Reported on 01/15/2025 metoprolol succinate XL (Toprol-XL) 25 mg 24 hr tabletIndications:C oronary artery disease involving [place] coronary artery of [place] heart without angina pectoris TAKE 1 TABLET (25 MG) BY MOUTH IN THE MORNING . DO NOT CRUSH OR CHEW 90 tablet 3 12/19/2024 12/19/2025 Active ezetimibe (Zetia) 10 mg tabletIndications:C oronary artery disease involving [place] coronary artery of [place] heart without angina pectoris TAKE 1 TABLET [...] and collapse 03/15/2023 Overview (03/21/2023): ED visit [facility] for dehydration, near syncope. Assessment & [...] PROCEDURES from Last 3 Months Care Teams Casing Finisher And Stuffer Relationship Specialty Start Date End Date Rodriguez Godwin MD [address] [facility] [address] [address] PCP - General 03/21/23
[2025-01-21 10:35] LABS: Potassium 5.1 mmol/L (3.5-5.1)
== END 2025-01-21 10:13 | disposition home or self-care (01) ==
LOC: LAB 10:13
PROVIDERS: Family Provider Family Medicine; PCP Internal Medicine Cardiovascular Disease; Visit Provider Internal Medicine Cardiovascular Disease
DX: E87.5 Hyperkalemia (principal)
CPT/HCPCS: 36415; 84132

== ENCOUNTER 2025-01-28 09:00 | Outpatient (OUT) | payer MEDICARE, SELFPAY ==
--- OUTSIDE RECORDS SUMMARY | 2025-01-30 07:54 | XMS_ITS | CCD ---
Author Organization [facility] CliniSyid Care Team Providers Care On Site Coordinator Name Role Phone DR BEHZAD CROCKER Primary Care Unavailable DANIEL ., JUNI Attending Unavailable DANIEL ., JUNI Admitting Unavailable DR ROBERT DAVENPORT V Consulting Unavailable PITER GROSSMAN Consulting Unavailable DANIEL ., JUNI Consulting Unavailable DIAB ., GRAYSON Consulting Unavailable ADITYA OATES Consulting Unavailable MD Rodriguez Godwin Primary Care Provider [phone] DO Ramiro Cortze Emergency Provider MD Rodriguez Godwin Primary Care Provider [phone] KAY Garrison Emergency Provider Deb, [facility] Naima Phelan Emergency Provider Rodriguez Godwin Primary Care Unavailable Naima Boyd Admitting Unavailable Naima Boyd Attending Unavailable Ramiro Cortez Admitting Unavailable Ramiro Cortez Attending Unavailable Rodriguez Godwin Primary Care Unavailable Marie Garrison Attending Unavailable Rodriguez Godwin Primary Care Unavailable Marie Garrison Admitting Unavailable SHIV DICKERSON Attending Unavailable RODRIGUEZ GODWIN Primary Care Unavailable Unavailable Primary Care Provider UnavailMARIBEL Delaney Attending Unavailable RODRIGUEZ GODWIN Referring Unavailable MARIBEL BOJORQUEZ Referring Unavailable MARIBEL BOJORQUEZ Attending Unavailable Rodriguez Godwin Primary Care Physician Jaun BRADSHAW Attending Unavailable Jaun BRADSHAW Attending Unavailable Frankie HOLLINS Attending Unavailable Frankie HOLLINS Attending Unavailable Frankie HOLLINS Admitting Unavailable Jaun BRADSHAW Attending Unavailable Jaun BRADSHAW Attending Unavailable JESSICA FORRESTER Attending Unavailable JESSICA FORRESTER Attending Unavailable JESSICA FORRESTER Attending Unavailable SHIV SHIRLEY Attending Unavailable JESSICA FORRESTER Referring Unavailable Allergies Allergy Classification Reported Allergen(s) Allergy Type Date of Onset Reaction(s) Facility (2 sources) Fish derivative; Translations: [fish derived] Propensity to adverse reactions 03-03-20 Gastrointestinal Upset [facility] (1 source) No Known Medication Allergies; Translations: [No Known Medication Allergies] Propensity to adverse reactions (disorder) [facility] Repository (1 source) atorvastatin; Translations: [ATORVASTATIN] Drug Allergy 04-06-20 [facility] Repository Medications Current Medications Medication Drug Class(es) Dates Sig (Normalized) Sig (Original) cloNIDine hydrochloride 0.1 mg oral tablet (4 sources) Central alpha-2 Adrenergic Agonist Start: 12-11-2024 take 1 mg by mouth twice daily cloNIDine 0.1 mg tab mg tab(s), Oral, BID, Refills(s) 0 Start Date: 12/11/24 Status: Ordered Repeat number: 1 take 1 tablet by mouth in the mo rning cloNIDine (Catapres) 0.1 MG tablet Take 0.1 [...] Take 5 mg by mouth Daily Active Lisinopril (10 sources) Angiotensin Converting Enzyme Inhibitor Start: 12-12-19 lisinopril Oral, Daily, Refills(s) 0 Start Date: 12/11/24 Status: Ordered Repeat number: 1 Start: 03-03-2023 take 5 mg by mouth [...] 5 mg by mouth Daily Active LORazepam (7 sources) Benzodiazepine Start: 12-11-2024 lorazepam Refi lls(s) 0 Start Date: 12/11/24 Status: Ordered Repeat number: 1 Start: 03-03-2023 take 1 tablet by linda th every twelve hours Lorazepam (Ativan) 1 mg tablet Active 1 MG PO Q12H 7 3 March 03, 2023 12:00am take 1 tablet by mouth at bedtim e LORazepam (Ativan) 0.5 MG tablet Take 0.5 mg by mouth at bedtime Active mesalamine 400 mg delayed release oral capsule (7 sources) Aminosalicylate Start: 12-11-2024 take 1 mg by mouth twice daily mesalamine 400 mg oral delayed release capsule mg cap(s), Oral, BID, Refills(s) 0 Start Date: 12/11/24 Status: Ordered Repeat number: 1 Start: 09-06-2019 take 1 tablet by linda th four times daily Mesalamine (Delzicol) 400 mg Capsule (With Del Rel Tablets) Active 400 MG PO Four times daily September 06, 2019 1:00am Multiple Vitamin (multivitamin) capsule (2 sources) take 1 capsule by mouth once daily Multiple Vitamin (multivitamin) capsule Take 1 capsule by mouth Daily Active Multivitamin preparation (2 sources) Start: multivitamin Refill(s) 0 Start Date: 12/11/24 Status: Ordered Repeat number: 1 tamsulosin hydrochloride 0.4 mg oral capsule (2 sources) alpha-Adrenergic Florin Start: 5 End: 6 take 1 capsule by mouth once daily tamsulosin 0.4 mg Cap 0.4 mg = 1 cap(s), Oral, Daily, Stop taking if experiencing dizziness or lightheadedness., X 30 day(s), # 30 cap(s), Refills(s) 11, Pharmacy: [facility]/pharmacy #[id number] Start Date: 12/11/24 Stop Date: 12/06/25 Status: Ordered Quantity: 30.0 Unit: cap(s) Repeat number: 12 Completed/Discontinued Medications Medication Drug Class(es) Dates Sig (Normalized) Sig (Original) cephalexin 500 mg oral capsule (2 sources) Cephalosporin Antibacterial Start: 12-11-2024 Keflex 500 mg Cap 500 mg = 1 cap(s), Oral, As Directed, Take one tab the day before the procedure. Then take the 2nd tab after the procedure has been completed., # 2 cap(s), Refills(s) 0, Pharmacy: [facility]/pharmacy #[id number] Start Date: 12/11/24 Status: Ordered Quantity: 2.0 Unit: cap(s) Repeat number: 1 ondansetron 8 mg disintegrating oral tablet (3 sources) Serotonin-3 Receptor Antagonist Start: 09-06-2019 End: 03-03-2023 Ondansetron Discontinued 8 MG PO As Directed September 06, 2019 1:00am March 03, 2023 12:48pm Problems Active Problems Problem Classification Problem Date Documented Da te Episodic/Chronic Acute myocardial infarction (2 sources) Myocardial infarction 01-09-2025 Chronic Anxiety disorders (9 sources) Anxiety; Translations: [Anxiety disorder, unspecified] Onset: 3 03-03-2023 Chronic Calculus of urinary tract (3 sources) Personal history of urinary calculi; Translations: [History of calculus of kidney] Onset: 3 01-09-2025 Episodic Cardiac dysrhythmias (4 sources) Supraventricular tachycardia; 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 atrial flutter] Onset: 5 01-09-2025 Chronic Coma; stupor; and brain damage (2 sources) Loss of consciousness; Translations: [Unspecified coma] 09-19-2024 Episodic Conditions associated with dizziness or vertigo (1 source) Dizziness and giddiness; Translations: [Dizziness and giddiness] Onset: 4 Episodic Congestive heart failure; nonhypertensive (3 sources) Congestive heart failure; Translations: [Heart failure, unspecified] 01-09-2024 Chronic Coronary atherosclerosis and other heart disease (2 sources) Atherosclerotic heart disease of [place] coronary artery without angina pectoris; Translations: [Atherosclerotic heart disease of [place] coronary artery without angina pectoris] Onset: 5 Chronic Epilepsy; convulsions (1 source) Unspecified convulsions; Translations: [Unspecified convulsions] Onset: 4 Episodic Essential hypertension (5 sources) Essential (primary) hypertension; Translations: [Hypertensive disorder] Onset: 3 12-11-2024 Chronic Genitourinary symptoms and ill-defined conditions (2 sources) Incomplete emptying of bladder 12-11-2024 Episodic Hyperplasia of prostate (2 sources) Benign prostatic hypertrophy with outflow obstruction 12-11-2024 Chronic Other aftercare (1 source) 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; Translations: [JAIL USE OF SYSTEMIC STEROIDS] Onset: 3 Episodic Other aftercare (1 source) Other residential (current) drug therapy; Translations: [OTH LEAD ADVISOR CURRENT DRUG THERAPY] Onset: 3 Episodic Other and ill-defined heart disease (3 sources) Cardiomegaly; Translations: [Cardiomegaly] Onset: 5 01-09-2025 Chronic Other and ill-defined heart disease (2 sources) Heart disease 12-11-2024 Chronic Other and ill-defined heart disease (1 source) Cardiomegaly; Translations: [Cardiomegaly] Onset: 5 Chronic Other diseases of kidney and ureters (2 sources) Cyst of kidney 12-11-2024 Episodic Other lower respiratory disease (2 sources) Other forms of dyspnea; Translations: [Other forms of dyspnea] Onset: 5 Episodic Other nervous system disorders (2 sources) Tremor 01-09-2025 Episodic Other nutritional; endocrine; and metabolic disorders (1 source) Hypomagnesemia; Translations: [Hypomagnesemia] Onset: 4 Chronic Other screening for suspected conditions (not mental disorders or infectious disease) (2 sources) Raised prostate specific antigen 12-11-2024 Episodic Other skin disorders (1 source) Disorder of the skin and subcutaneous tissue, unspecified; Translations: [DISORDER SKIN AND SUBQ TISSUE UNS] Onset: 3 Episodic Other skin disorders (3 sources) Inflamed seborrheic keratosis; Translations: [Inflamed seborrheic keratosis] Onset: 5 Episodic Phlebitis; thrombophlebitis and thromboembolism (2 sources) Personal history of other venous thrombosis and embolism; Translations: [Personal history of other venous thrombosis and embolism] Onset: 5 Episodic Pulmonary heart disease (4 sources) Pulmonary embolism; Translations: [Personal history of pulmonary embolism] Onset: 5 12-11-2024 Episodic Regional enteritis and ulcerative colitis (8 sources) Crohn's disease, unspecified, without complications; Translations: [Crohn's disease] Onset: 3 Chronic Residual codes; unclassified (1 source) Insomnia, unspecified; Translations: [INSOMNIA UNSPECIFIED] Onset: 3 Episodic Residual codes; unclassified (1 source) Acquired absence of other specified parts of digestive tract; Translations: [ACQ ABSENCE OTH PART DIGESTV TRACT] Onset: 3 Episodic Residual codes; unclassified (1 source) Family history of diabetes mellitus; Translations: [FAMILY HISTORY OF DIABETES MELLITUS] Onset: 3 Episodic Residual codes; unclassified (1 source) Patient encounter status; Translations: [Procedure and treatment not carried out due to patient leaving prior to being seen by health care provider] 12-26-2023 Episodic Screening and history of mental health and substance abuse codes (1 source) Personal history of nicotine dependence; Translations: [PERSONAL HISTORY OF NICOTINE DEPEND] Onset: 3 Episodic Syncope (5 sources) Near syncope; Translations: [Syncope and collapse] 03-03-2023 Episodic Unclassified (1 source) Seizure - New Onset Onset: 4 Unclassified (1 source) EMS Onset: 4 Unclassified (1 source) Supraventricular tachycardia, unspecified; Translations: [Supraventricular tachycardia, unspecified] Onset: 5 Unclassified (1 source) Other ventricular tachycardia; Translations: [Other ventricular tachycardia] Onset: 4 Past or Other Problems Problem Classification Problem Date Documented Date Episodic/Chronic Intestinal obstruction without hernia (2 sources) Small bowel obstruction Onset: 08-31-2024 01-09-2025 Episodic Nonspecific chest pain (2 sources) Atypical chest pain; Translations: [Other chest pain] Onset: 03-03-2023 01-09-2024 Episodic Unclassified (1 source) Supraventricular tachycardia, unspecified; Translations: [Supraventricular tachycardia, unspecified] Onset: 11-14-2024 Unclassified (1 source) Other ventricular tachycardia; Translations: [Other ventricular tachycardia] Onset: 04-06-2024 Results Test Name Value Interpretation Reference Range Facility Surgical Pathology Reporton 01-25-2025 Surgical Pathology Report [address] [place] [address]- Surgical Pathology Report Collected Date/Time: 01/22/2025 10:13 EDT Pathologist: Kenn Harper MD Received Date/Time: 01/23/2025 07:34 EDT GUNJAN ADAN, Frankie HOLLINS MD, Frankie Mcgregor Surgical Pathology Report - 01/25/2025 15:55 EDT - Auth (Verified) Final Diagnosis LESION, LEFT CHEST WALL, EXCISION: BENIGN PIGMENTED VERROUS EPIDERMAL LESION MOST CONSISTENT WITH A VERRUCOUS KERATOSIS; SEBORRHEIC KERATOSIS (Electronic Signature) Kenn Harper MD 01/25/2025 15:55 Clinical Information long h/o skin lesion with change in pigmentation Pre-Op Diagnosis: seborrhoic keratosis Procedure: excisional biopsy left chest wall skin lesion Post-Op Diagnosis: Inflamed seborrheic keratosis Specimen(s) Received left chest wall lesion, changing Gross Description Received in formalin labeled with patient name, number, and chest wall is a stellate ellipse fragment of rick skin and soft tissue. The skin segment measures 1.2 x 0.5 cm and contains approximately 0.5 cm of underlying tissue. The skin surface has a raised bumpy wart-like appearance. The skin margins are inked green. The specimen is serially sectioned and entirely submitted in one cassette. (DC) DC:[facility] Microscopic Description Microscopic examination performed unless gross only specified. Quality was accessed and acceptable. This report was transcribed using voice recognition technology and might contain unintended computerized creative arts therapist errors. Normal [facility] Comment on above: Performed By: #### [id number] #### [facility] [address] [place] [address] 36on 01-22-2025 36 Spoke with patient a nd made him aware of normal stress test performed on 01/21/[address] Shirley. He verbalized understanding. Normal [facility] Ambulatory Visit Summaryon 0 01-22-2025 Ambulatory Visit Summary Ambulatory Visit Summary JEB RIDDLE :1950 Visit Date:01/22/2025 Ambulatory Visit Instructions Your Care Team Attending Physician - GUNJAN ADAN, Frankie Bueno Primary Care Physician - Rodriguez Godwin MD This Is Your Medications List Contact prescribing physician if questions or concerns cephalexin (Keflex 500 mg Cap) clonidine (cloNIDine 0.1 mg tab) lisinopril lorazepam mesalamine (mesalamine 400 mg oral delayed release capsule) multivitamin tamsulosin (tamsulosin 0.4 mg Cap) Procedures Performed Appendectomy, Cataract, Colonoscopy, Tonsillectomy. Discharge Vitals Heart Rate (Peripheral) 78 Respiratory Rate 16 Blood Pressure 168/80 Height 187 cm Height 74 in Weight 82.7 kg Weight 182.322 lb BMI 23.65 What to do next Scheduled Follow-Up Appointments Tuesday 9:00 AM EDT With: Where: [facility] [address] [place] [address]- Tuesday 8:45 AM EDT With: AUGUSTINE ADAN, Jaun Salguero Where: [facility] [address] [place] [address]- Medications What How Much When Instructions Unchanged cephalexin (Keflex 500 mg Cap) 1 Capsules By Mouth As Directed Take one tab the day before the procedure. Then take the 2nd tab after the procedure has been completed. Contact prescribing physician if questions or concerns Unchanged clonidine (cloNIDine 0.1 mg tab) By Mouth 2 times a day Contact prescribing physician if questions or concerns Unchanged lisinopril By Mouth Every day Contact prescribing physician if questions or concerns Unchanged lorazepam Contact prescribing physician if questions or concerns Unchanged mesalamine (mesalamine 400 mg oral delayed release capsule) By Mouth 2 times a day Contact prescribing physician if questions or concerns Unchanged multivitamin Contact prescribing physician if questions or concerns Unchanged tamsulosin (tamsulosin 0.4 mg Cap) 1 Capsules By Mouth Every day Duration: 30 Days Stop taking if experiencing dizziness or lightheadedness. Contact prescribing physician if questions or concerns Allergies No Known Allergies No Known Medication Allergies Problems Ongoing - Any problem that you are currently receiving treatment for. Anxiety BPH with obstruction/lower urinary tract symptoms Cardiomegaly Congestive heart failure Crohn's disease Elevated PSA Heart disease History of nephrolithiasis Hypertension Incomplete bladder emptying NSTEMI (non-ST elevated myocardial infarction) Pulmonary embolism Renal cyst Small bowel obstruction Supraventricular tachycardia Tremor Patient Survey You may receive a survey via text or e-mail asking about your office visit. Please share your experience with us by completing your survey. We appreciate your feedback and thank you for choosing us for your care. [facility] Orders Onlyon 01-22-2025 Orders Only [id number] Jeb Riddle 1950 M Date Provider Department Center 01/22/2025 [id number], HISTORICAL BH C[facility] Family History Problem Relation Age of Onset Diabetes Mother Coronary artery disease Mother Heart attack Father Diabetes Father Coronary artery disease Father Pulmonary embolism Brother Family Status - Relation Status Age at Mother Father Brother Normal [facility] Office Visiton 01-15-2025 Follow-up visit [id number] Jeb Riddle 1950 M Date Provider Department Center 01/15/2025 SHIV SAAVEDRA BH C[facility] Family History Problem Relation Age of Onset Diabetes Mother Coronary artery disease Mother Heart attack Father Diabetes Father Coronary artery disease Father Pulmonary embolism Brother Family Status - Relation Status Age at Mother Father Brother Level of Service:[id number] [place] OFFICE/OUTPATIENT ESTABLISHED LOW MDM 20 MIN Normal [facility] Orders Onlyon 01-15-2025 Orders Only [id number] Jeb Riddle 1950 M Date Provider Department Center 01/15/2025 TAQUERIA MAYORGA BH CARD [facility] Family History Problem Relation Age of Onset Diabetes Mother Coronary artery disease Mother Heart attack Father Diabetes Father Coronary artery disease Father Pulmonary embolism Brother Family Status - Relation Status Age at Mother Father Brother [facility] Orders Only [id number] Jeb Riddle 1950 M Date Provider Department Center 01/15/2025 [id number], HISTORICAL BH CARD [facility] Family History Problem Relation Age of Onset Diabetes Mother Coronary artery disease Mother Heart attack Father Diabetes Father Coronary artery disease Father Pulmonary embolism Brother Family Status - Relation Status Age at Mother Father Brother Normal [facility] Orders Onlyon 01-14-2025 Orders Only [id number] Jeb Riddle 1950 M Date Provider Department Center 01/14/2025 [id number], HISTORICAL BH CARD [facility] Family History Problem Relation Age of Onset Diabetes Mother Coronary artery disease Mother Heart attack Father Diabetes Father Coronary artery disease Father Pulmonary embolism Brother Family Status - Relation Status Age at Mother Father Brother Normal [facility] Urology Office/Clinic Noteon 12-11-2024 Urology Office/Clinic Note Urology Office/Clinic Note Chief Complaint New Pt HPI Staff 74 year old male presents as new pt referral for elevated PSA. PSA 4.1 & 16.8% 04/27/24 4.4 & 18% 11/28/24 Pt states he goes 20-30x a day, squeeze to build pressure to urinate then release it, 2x a night, moderate frequency, moderate urgency, moderate stream Denies pain or burning, denies visible blood IPSS 32 PVR 102 History of Present Illness Tests reviewed: UA, referral records, PSAs I have reviewed the previous health record information and history for this patient from Dr Godwin. I have reviewed and verified the staff HPI to be accurate for this encounter. Review of Systems PHQ Score Initial Depression Screen Score: 0 SCORE ROS - Provider Constitutional: denies weight loss, denies hot flashes. Eyes: denies eye problems. Gastrointestinal: denies nausea, denies vomiting. Cardiovascular: denies chest pain or angina. Integumentary: no dryness Musculoskeletal: denies musculoskeletal symptoms. ENMT: denies otolaryngeal symptoms. Respiratory: no shortness of breath. Heme/Lymph: denies easy bleeding tendency, denies easy bruising tendency. Psychiatric: no confusion, no anxiety. Genitourinary: See HPI. Physical Exam Vitals & Measurements HR: 65(Peripheral) RR: 18 BP: 132/78 General Appearance: alert, no distress, well nourished, well developed male. Head: normocephalic . Eyes: normal orbit and globe. ENMT: normal examination of external ears. Chest: Lungs CTA, respirations non labored. Cardiovascular: regular rate and rhythm. Abdomen: soft, non distended, no tenderness, no mass or organomegaly, no hernia. Genitourinary: normal scrotum, normal testes, normal urethra, normal epididymis, normal vas deferens/spermatic cord. Flank Pain: none. Bladder: nonpalpable. Penis: normal shaft, normal glans. Prostate: ROSA ~ 45 g, no nodules. Lymph Nodes: unremarkable palpation of the cervical area. Skin: warm, dry, no bruising. Psychiatric: cooperative, affect appropriate for age, normal judgement, euthymic mood Assessment/Plan Jeb is a 74 yo M new pt referred by Dr Godwin d/t elevated PSA. 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 1. Elevated PSA (R97.20: Elevated prostate specific antigen [PSA]) PSA: 04/20/24 - 6.74 04/27/24 - 4.10 & 16.8% 11/28/24 - 4.40 & 18% Though PSA was elevated, it subsequently decreased to the 4 range. Will cont to monitor given the decrease. Pt agreeable. ROSA ~ 45 g, no nodules. 2. BPH with obstruction/lower urinary tract symptoms (N40.1: Benign prostatic hyperplasia with lower urinary tract symptoms) UA neg. IPSS 32. No prostate or bladder meds. Voids 30 times per day. Explained risk of atonic bladder/UR given chronic obstruction and severity of sx. Onset of fatigue a month ago. Concerted with malignancy. Reassured pt this is not a common sx of urologic cancers. Discussed different treatment options for bladder outlet obstruction including oral medications, operative interventions such as TURP, versus less invasive options such as Rezum or Urolift, depending on prostate size and shape. R/Bs of options discussed. Educational pamphlets provided. Would require cysto to eval candidacy for prostate procedures. He is not sexually active but wishes to maintain sexual function. MIPPs less likely to cause retrograde ejaculation but otherwise prostate procedures do not hinder erectile function. -Start Flomax 0.4 mg qd. SEs discussed. Stop taking and notify office if experiencing persistent dizziness/lightheadedness. Sent to [facility]. -Will schedule cysto. The risks and benefits for cystoscopy have been discussed. The risks include bleeding, infection, and irritation of the bladder and urinary channel, among others. The patient, after being informed of procedural details and after questions have been answered, wishes to proceed. Full informed consent has been obtained. Will order Local anesthesia. Prophylactic abx sent to [facility]. 3. History of kidney stones (Z87.442: Personal history of urinary calculi) States he has some intrarenal stones noted on CT at [facility]. -Retrieve CT from [facility], see below 4. Renal cyst (N28.1: Cyst of kidney, acquired) Recent [facility] CT also noted large renal cyst per pt. He feels it looks suspicious for a mass and not a cyst. Will have to retrieve imaging from [facility] to view. -Pt can drop off CD 5. Incomplete bladder emptying (R33.9: Retention of urine, unspecified) PVR 102 cc. Lays on his side to void and voids into a urinal, this helps him empty. He does not do this every time. This has been going on for 6-12 mos. 6. 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 On Eliquis. Overall the patient has the elevated PSA level which has actually fluctuated, prompting the recommendation for follow-up in 6 months with a repeat level. We discussed that usually prostate cancer will not fluctuate. He does have significant bladder outlet obstructive/irri (more content not included)... Normal [facility] Comment on above: Result Comment: Elec tronically Signed By: Jaun BRADSHAW MD P\.br\Date and Time Signed: 12/11/24 10:00 EDT\.br\Electronically Co-Signed By: Tarah Reese\.br\Date and Time Co-Signed: 12/11/24 09:58 EDT Office Visiton 11-14-2024 Follow-up visit [id number] Jeb Riddle 1950 M Date Provider Department Center 11/14/2024 JESSICA JAMISON Family History Problem Relation Age of Onset Diabetes Mother Coronary artery disease Mother Heart attack Father Diabetes Father Coronary artery disease Father Pulmonary embolism Brother Family Status - Relation Status Age at Mother Father Brother Level of Service:59747 [place] OFFICE/OUTPATIENT ESTABLISHED MOD MDM 30 MIN Normal [facility] Office Visiton 09-24-2024 Follow-up visit [id number] Jeb Riddle 1950 M Date Provider Department Center 09/24/2024 JESSICA JAMISON Family History Problem Relation Age of Onset Diabetes Mother Coronary artery disease Mother Heart attack Father Diabetes Father Coronary artery disease Father Family Status - Relation Status Age at Mother Father Level of Service:05925 [place] OFFICE/OUTPATIENT ESTABLISHED MOD MDM 30 MIN Normal [facility] CBC AND AUTO DIFFon 08-09-20 ABSOLUTE BASOPHIL 0.0 X10E9/L Normal 0.0-0.2 [facility] Comment on above: Performed By: #### 1 9123-9, 47926-5, CMP, 58870-5, 98973-1, CBCA, 5643-2, PINR #### [facility] ([id number]) [address] [place] [address] 61095 ABSOLUTE NEUTROPHIL 3.9 X10E9/L Normal 1.5-6.6 [facility] Comment on above: Performed By: #### 1 9123-9, 96035-6, CMP, 69604-4, 72166-6, CBCA, 5643-2, PINR #### [facility] ([id number]) [address] [place] [address] 66914 Basophils/100 WBC (Bld) 0.3 % Normal [facility] Comment on above: Performed By: #### 1 9123-9, 60766-5, CMP, 67937-9, 33928-3, CBCA, 5643-2, PINR #### [facility] ([id number]) [address] [place] [address] 99993 Eosinophils (Bld) [#/Vol] 0.1 10*3/uL Normal 0.0-0.4 [facility] Comment on above: Performed By: #### 1 9123-9, 92543-4, CMP, 21987-6, 74617-0, CBCA, 5643-2, PINR #### [facility] ([id number]) [address] [place] [address] 10803 Eosinophils/100 WBC (Bld) 1.4 % Normal [facility] Comment on above: Performed By: #### 1 9123-9, 42102-8, CMP, 07560-0, 27297-2, CBCA, 5643-2, PINR #### [facility] ([id number]) [address] [place] [address] 86637 Erythrocyte distribution width (RBC) [Ratio] 13.0 % Normal 11.5-15.0 [facility] Comment on above: Performed By: #### 1 9123-9, 07211-0, CMP, 89236-2, 63688-1, CBCA, 5643-2, PINR #### [facility] ([id number]) [address] [place] [address] 07083 Hematocrit (Bld) [Volume fraction] 35.7 % Low 39-49 [facility] Comment on above: Performed By: #### 1 9123-9, 84565-7, CMP, 59132-5, 28819-8, CBCA, 5643-2, PINR #### [facility] ([id number]) [address] [place] [address] 26147 Hemoglobin (Bld) [Mass/Vol] 12.3 g/dL Low 13.0-17.0 [facility] Comment on above: Performed By: #### 1 9123-9, 37993-6, CMP, 96499-4, 40221-6, CBCA, 5643-2, PINR #### [facility] ([id number]) [address] [place] [address] 65131 Lymphocytes (Bld) [#/Vol] 1.1 10*3/uL Normal 1.0-3.5 [facility] Comment on above: Performed By: #### 1 9123-9, 00282-6, CMP, 85023-4, 53497-0, CBCA, 5643-2, PINR #### [facility] ([id number]) [address] [place] [address] 72901 Lymphocytes/100 WBC (Bld) 21.0 % Normal [facility] Comment on above: Performed By: #### 1 9123-9, 27615-4, CMP, 45878-4, 16957-5, CBCA, 5643-2, PINR #### [facility] ([id number]) [address] [place] [address] 53313 MCH (RBC) [Entitic mass] 33.2 pg Normal 27-34 [facility] Comment on above: Performed By: #### 1 9123-9, 20821-9, CMP, 74913-7, 97111-4, CBCA, 5643-2, PINR #### [facility] ([id number]) [address] [place] [address] 35386 MCHC (RBC) [Mass/Vol] 34.3 g/dL Normal 32-36 [facility] Comment on above: Performed By: #### 1 9123-9, 41260-1, CMP, 52083-8, 84221-5, CBCA, 5643-2, PINR #### [facility] ([id number]) [address] [place] [address] 32979 MCV (RBC) [Entitic vol] 97 fL Normal 80-100 [facility] Comment on above: Performed By: #### 1 9123-9, 29884-8, CMP, 90537-7, 71299-8, CBCA, 5643-2, PINR #### [facility] ([id number]) [address] [place] [address] 80597 Monocytes (Bld) [#/Vol] 0.2 10*3/uL Normal 0-0.9 [facility] Comment on above: Performed By: #### 1 9123-9, 13397-4, CMP, 95335-1, 61432-4, CBCA, 5643-2, PINR #### [facility] ([id number]) [address] [place] [address] 81194 Monocytes/100 WBC (Bld) 4.5 % Normal [facility] Comment on above: Performed By: #### 1 9123-9, 14618-4, CMP, 06908-8, 35011-7, CBCA, 5643-2, PINR #### [facility] ([id number]) [address] [place] [address] 83260 Neutrophils/100 WBC (Bld) 72.8 % Normal [facility] Comment on above: Performed By: #### 1 9123-9, 60373-5, CMP, 61067-9, 62173-4, CBCA, 5643-2, PINR #### [facility] ([id number]) [address] [place] [address] 78820 Platelet mean volume (Bld) [Entitic vol] 7.7 fL Normal 7-12 [facility] Comment on above: Performed By: #### 1 9123-9, 23047-9, CMP, 88953-4, 14197-5, CBCA, 5643-2, PINR #### [facility] ([id number]) [address] [place] [address] 85118 Platelets (Bld) [#/Vol] 208 10*3/uL Normal 150-450 [facility] Comment on above: Performed By: #### 1 9123-9, 22908-9, CMP, 24373-4, 59190-4, CBCA, 5643-2, PINR #### [facility] ([id number]) [address] [place] [address] 97816 RBC COUNT 3.69 X10E12/L Low 4.10-5.70 [facility] Comment on above: Performed By: #### 1 9123-9, 13642-5, CMP, 18981-2, 70876-7, CBCA, 5643-2, PINR #### [facility] ([id number]) [address] [place] [address] 51486 WBC (Bld) [#/Vol] 5.4 10*3/uL Normal 4.0-11.0 [facility] Comment on above: Performed By: #### 1 9123-9, 24020-3, CMP, 12701-3, 46790-0, CBCA, 5643-2, PINR #### [facility] ([id number]) [address] [place] [address] [place] [address] COMPREHENSIVE METABOLIC PANE Morgan 08-09-2024 Albumin [Mass/Vol] 3.5 g/dL Normal 3.2-5.3 [facility] Comment on above: Performed By: #### 1 9123-9, 48720-8, CMP, 93050-2, 81797-3, CBCA, 5643-2, PINR #### [facility] ([id number]) [address] [place] [address] 99704 ALP [Catalytic activity/Vol] 56 U/L Normal 39-130 [facility] Comment on above: Performed By: #### 1 9123-9, 71925-9, CMP, 25725-6, 80897-9, CBCA, 5643-2, PINR #### [facility] ([id number]) [address] [place] [address] 55367 ALT [Catalytic activity/Vol] 25 U/L Normal 0-40 [facility] Comment on above: Performed By: #### 1 9123-9, 52159-3, CMP, 24419-3, 99613-2, CBCA, 5643-2, PINR #### [facility] ([id number]) [address] [place] [address] [place] [address] Anion gap [Moles/Vol] 7 mmol/L Normal 5-15 [facility] Comment on above: Performed By: #### 1 9123-9, 19311-1, CMP, 21903-9, 12608-1, CBCA, 5643-2, PINR #### [facility] ([id number]) [address] [place] [address] [place] [address] AST [Catalytic activity/Vol] 19 U/L Normal 0-41 [facility] Comment on above: Performed By: #### 1 9123-9, 64396-4, CMP, 37649-5, 37420-2, CBCA, 5643-2, PINR #### [facility] ([id number]) [address] [place] [address] 32198 Bilirubin [Mass/Vol] 0.4 mg/dL Normal 0.3-1.2 [facility] Comment on above: Performed By: #### 1 9123-9, 31449-2, CMP, 56182-7, 29083-5, CBCA, 5643-2, PINR #### [facility] ([id number]) [address] [place] [address] 38689 Calcium [Mass/Vol] 8.8 mg/dL Normal 8.5-10.5 [facility] Comment on above: Performed By: #### 1 9123-9, 08964-3, CMP, 62152-8, 90209-0, CBCA, 5643-2, PINR #### [facility] ([id number]) [address] [place] [address] 55054 Chloride [Moles/Vol] 108 mmol/L Normal 98-109 [facility] Comment on above: Performed By: #### 1 9123-9, 50178-6, CMP, 08592-2, 78416-4, CBCA, 5643-2, PINR #### [facility] ([id number]) [address] [place] [address] 28025 CO2 [Moles/Vol] 23 mmol/L Normal 22-32 [facility] Comment on above: Performed By: #### 1 9123-9, 91923-3, CMP, 37188-0, 74944-5, CBCA, 5643-2, PINR #### [facility] ([id number]) [address] [place] [address] 65098 Creatinine [Mass/Vol] 1.37 mg/dL High 0.70-1.20 [facility] Comment on above: Result Comment: METH OD TRACEABLE TO IDMS STANDARD Performed By: #### 1 9123-9, 38398-3, CMP, 18010-8, 95177-8, CBCA, 5643-2, PINR #### [facility] ([id number]) [address] [place] [address] 21726 GFR/1.73 sq M.predicted among non-blacks MDRD (S/P/Bld) [Vol rate/Area] 54 mL/min/{1.73_m2} Low >59 [facility] Comment on above: Result Comment: Reported eGFR is based on the CKD-EPI 2020 equation that does not use a race coefficient. Performed By: #### 1 9123-9, 92871-7, CMP, 96575-9, 98376-8, CBCA, 5643-2, PINR #### [facility] ([id number]) [address] [place] [address] 00444 Glucose [Mass/Vol] 155 mg/dL High 65-99 [facility] Comment on above: Performed By: #### 1 9123-9, 15882-6, CMP, 96508-3, 83299-8, CBCA, 5643-2, PINR #### [facility] ([id number]) [address] [place] [address] 27229 Potassium [Moles/Vol] 4.3 mmol/L Normal 3.5-5.0 [facility] Comment on above: Performed By: #### 1 9123-9, 09856-5, CMP, 30277-9, 45939-9, CBCA, 5643-2, PINR #### [facility] ([id number]) [address] [place] [address] 60182 Protein [Mass/Vol] 6.0 g/dL Normal 6.0-8.0 [facility] Comment on above: Performed By: #### 1 9123-9, 93551-0, CMP, 11392-3, 09011-8, CBCA, 5643-2, PINR #### [facility] ([id number]) [address] [place] [address] 64199 Sodium [Moles/Vol] 138 mmol/L Normal 134-146 [facility] Comment on above: Performed By: #### 1 9123-9, 78483-5, CMP, 94134-2, 54145-5, CBCA, 5643-2, PINR #### [facility] ([id number]) [address] [place] [address] 89589 Urea nitrogen [Mass/Vol] 25 mg/dL Normal 5-27 [facility] Comment on above: Performed By: #### 1 9123-9, 87343-4, CMP, 05324-3, 92166-3, CBCA, 5643-2, PINR #### [facility] ([id number]) [address] [place] [address] BRAIN WO CONTon 4 CT BRAIN [...] Moran MD on 08/09/2024 12:54 PM Normal [facility] DRUG SCREEN, URINEon 024 AMPHETAMINE/METHAMP Negative Normal [facility]G [place] Comment on above: Result Comment: AMPH /METH screening cut off = 1000 ng/mL Performed By: #### 1 9123-9, 88151-7, CMP, 42663-5, 39378-4, CBCA, 5643-2, PINR #### [facility] ([id number]) [address] [place] [address] 52963 BARBITURATES Negative Normal NEG [facility] Comment on above: Result Comment: Maria Eugenia iturates screening cut off value = 200 ng/mL Performed By: #### 1 9123-9, 93021-4, CMP, 87527-4, 72432-9, CBCA, 5643-2, PINR #### [facility] ([id number]) [address] [place] [address] 97032 BENZODIAZEPINES Negative Normal NEG [facility] Comment on above: Result Comment: Paulie odiazepines screening cut off value = 200 ng/mL Performed By: #### 1 9123-9, 20182-6, CMP, 29633-1, 58874-7, CBCA, 5643-2, PINR #### [facility] ([id number]) [address] [place] [address] 16591 CANNABINOIDS Negative Normal NEG [facility] Comment on above: Result Comment: Nora abinoids/THC screening cut off value = 50 ng/mL Performed By: #### 1 9123-9, 68977-4, CMP, 15870-4, 40204-6, CBCA, 5643-2, PINR #### [facility] ([id number]) [address] [place] [address] 35268 COCAINE METABOLITE Negative Normal NEG [facility] Comment on above: Result Comment: Coca ine screening cut off value = 300 ng/mL Performed By: #### 1 9123-9, 40950-3, CMP, 76587-8, 92715-3, CBCA, 5643-2, PINR #### [facility] ([id number]) [address] [place] [address] 69997 ECSTASY Negative Normal NEG [facility] Comment on above: Result Comment: Ecst asy screening cut off value = 500 ng/mL This report is intended for use in clinical monitoring or management of patients. Performed By: #### 1 9123-9, 78546-4, CMP, 27561-9, 89953-4, CBCA, 5643-2, PINR #### [facility] ([id number]) [address] [place] [address] 84674 METHADONE Negative Normal NEG [facility] Comment on above: Result Comment: Meth adone screening cut off value = 300 ng/mL. Performed By: #### 1 9123-9, 97793-5, CMP, 05395-7, 71877-0, CBCA, 5643-2, PINR #### [facility] ([id number]) [address] [place] [address] 73807 OPIATES Negative Normal NEG [facility] Comment on above: Result Comment: Opia brennen screening cut off value = 300 ng/mL NOTE: This test is used for the detection of codeine, hydrocodone (>1000 ng/mL), morphine and hydromorphone (>900 ng/mL) in urine. Performed By: #### 1 9123-9, 16001-0, [facility], 23068-1, 95013-1, CBCA, 5643-2, PINR #### [facility] ([id number]) [address] [place] [address] 53985 OXYCODONE Negative Normal NEG [facility] Comment on above: Result Comment: Oxyc odone screening cut off value = 300 ng/mL NOTE: This test is used for the detection of oxycodone and oxymorphone in urine. Performed By: #### 1 9123-9, 41378-1, CMP, 30136-2, 94075-3, CBCA, 5643-2, PINR #### [facility] ([id number]) [address] [place] [address] 02758 PHENCYCLIDINE Negative Normal NEG [facility] Comment on above: Result Comment: Phen cyclidine screening cut off value = 25 ng/mL Performed By: #### 1 9123-9, 01014-6, CMP, 63097-3, 11293-8, CBCA, 5643-2, PINR #### [facility] ([id number]) [address] [place] [address] 50248 ETHANOLon 08-09-2024 Ethanol [Mass/Vol] mg/dL Normal 0.00-0.08 [facility] Comment on above: Result Comment: This report is intended for use in clinical monitoring or management of patients. Performed By: #### 1 9123-9, 61928-5, CMP, 70597-3, 48255-3, CBCA, 5643-2, PINR #### [facility] ([id number]) [address] [place] [address] 73320 Fibrin D-dimer DDU (PPP) [Ma ss/Vol]on 08-09-2024 D DIMER 167 ng/mL DDU Normal <255 [facility] Comment on above: Result Comment: Results <255 ng/mL DDU: The presence of a VTE can safely be excluded with a negative D-Dimer result and Wells score. A negative result doesn't exclude the possibility of DIC. The test be repeated along with other diagnostic tests if the patient's symptoms persist or worsen. [email or web address] Performed By: #### 1 9123-9, 27873-6, CMP, 85634-1, 15303-3, CBCA, 5643-2, PINR #### [facility] ([id number]) [address] [place] [address] 02127 MAGNESIUMon 08-09-2024 Magnesium [Mass/Vol] 1.4 mg/dL Low 1.8-2.6 [facility] Comment on above: Performed By: #### 1 9123-9, 99454-9, CMP, 84814-3, 37028-2, CBCA, 5643-2, PINR #### [facility] ([id number]) [address] [place] [address] [place] [address] PROTIME AND INRon 08-09-2024 INR Coag (PPP) [Relative time] 1.2 {INR} High 0.8-1.1 [facility] Comment on above: Performed By: #### 1 9123-9, 42001-0, CMP, 23986-5, 04360-3, CBCA, 5643-2, PINR #### [facility] ([id number]) [address] [place] [address] [place] [address] PT Coag (PPP) [Time] 14.3 s High 9.8-13.2 [facility] Comment on above: Result Comment: NEW REFERENCE RANGE Performed By: #### 1 9123-9, 60551-2, CMP, 23586-8, 70420-1, CBCA, 5643-2, PINR #### [facility] ([id number]) [address] [place] [address], [place] [address] Troponin I.cardiac High sens itivity method [Mass/Vol]on 08-09-2024 1 HOUR TROP I, HIGH SENSITIVITY 10 ng/L Normal <21 [facility] Comment on above: Performed By: #### 1 9123-9, 68240-4, CMP, 58269-8, 58874-5, CBCA, 5643-2, PINR #### [facility] ([id number]) [address] [place] [address] 70491 TROPONIN I, HIGH SENSITIVITY 8 ng/L Normal <21 [facility] Comment on above: Performed By: #### 1 9123-9, 57760-5, CMP, 48597-1, 41825-8, CBCA, 5643-2, PINR #### [facility] ([id number]) [address] [place] [address] 23263 URINALYSISon 08-09-2024 Bilirubin Ql (U) Negative Normal NEG [facility] Comment on above: Performed By: #### 1 9123-9, 54224-2, CMP, 92487-0, 77085-9, CBCA, 5643-2, PINR #### [facility] ([id number]) [address] [place] [address] 20952 BLOOD/HGB Negative Normal NEG [facility] Comment on above: Performed By: #### 1 9123-9, 85443-6, CMP, 10716-6, 59289-9, CBCA, 5643-2, PINR #### [facility] ([id number]) [address] [place] [address] 03474 Color (U) YELLOW Normal YELLOW [facility] Comment on above: Performed By: #### 1 9123-9, 29395-1, CMP, 25055-1, 59734-0, CBCA, 5643-2, PINR #### [facility] ([id number]) [address] [place] [address] 24477 Glucose Ql (U) Negative Normal NEG [facility] Comment on above: Performed By: #### 1 9123-9, 59217-4, CMP, 10867-6, 86877-3, CBCA, 5643-2, PINR #### [facility] ([id number]) [address] [place] [address] 50424 Ketones Ql (U) Negative Normal NEG [facility] Comment on above: Performed By: #### 1 9123-9, 47820-3, CMP, 69844-2, 25129-6, CBCA, 5643-2, PINR #### [facility] ([id number]) [address] [place] [address] 01335 Leukocyte esterase Test strip Ql (U) Negative Normal NEG [facility] Comment on above: Performed By: #### 1 9123-9, 42714-9, CMP, 51889-8, 26897-6, CBCA, 5643-2, PINR #### [facility] ([id number]) [address] [place] [address] 66042 Nitrite Ql (U) Negative Normal NEG [facility] Comment on above: Performed By: #### 1 9123-9, 27467-7, CMP, 90132-2, 48408-3, CBCA, 5643-2, PINR #### [facility] ([id number]) [address] [place] [address] 60850 pH (U) 6.0 [pH] Normal 5.0-8.5 [facility] Comment on above: Performed By: #### 1 9123-9, 00556-3, CMP, 23723-9, 29258-0, CBCA, 5643-2, PINR #### [facility] ([id number]) [address] [place] [address] 93645 Protein Ql (U) Negative Normal NEG [facility] Comment on above: Performed By: #### 1 9123-9, 49933-1, CMP, 34790-5, 23140-4, CBCA, 5643-2, PINR #### [facility] ([id number]) [address] [place] [address] 00409 Specific gravity (U) [Rel density] 1.025 Normal 1.003-1.03 5 [facility] Comment on above: Performed By: #### 1 9123-9, 32410-6, CMP, 18309-3, 90316-3, CBCA, 5643-2, PINR #### [facility] ([id number]) [address] [place] [address] 34853 TURBIDITY CLEAR Normal CLEAR [facility] Comment on above: Performed By: #### 1 9123-9, 15506-5, CMP, 93977-2, 41321-2, CBCA, 5643-2, PINR #### [facility] ([id number]) [address] [place] [address] [place] [address] Urobilinogen Qn (U) 0.2 {Temo'U}/dL Normal <1.1 [facility] Comment on above: Performed By: #### 1 9123-9, 91166-6, CMP, 48224-0, 31608-8, CBCA, 5643-2, PINR #### [facility] ([id number]) [address] [place] [address] [place] [address] URN MACROSCOPIC NURon 2023 BILIRUBIN FRANKLIN Negative Normal NEG [facility] Comment on above: Performed By: #### N UM #### [facility] ([id number]) [address] [place] [address] [place] [address] BLOOD/HGB FRANKLIN Negative Normal NEG [facility] Comment on above: Performed By: #### N UM #### [facility] ([id number]) [address] [place] [address] [place] [address] GLUCOSE FRANKLIN Negative Normal NEG [facility] Comment on above: Performed By: #### N UM #### [facility] ([id number]) [address] [place] [address], [place] [address] KETONES FRANKLIN Negative Normal NEG [facility] Comment on above: Performed By: #### N UM #### [facility] ([id number]) [address] [place] [address] [place] [address] LEUKOCYTE ESTERASE FRANKLIN Negative Normal NEG [facility] Comment on above: Performed By: #### N UM #### [facility] ([id number]) [address] [place] [address] [place] [address] NITRITE FRANKLIN Negative Normal NEG [facility] Comment on above: Performed By: #### N UM #### [facility] ([id number]) [address] [place] [address] 00020 PH FRANKLIN 5.5 Normal 5.0-8.5 [facility] Comment on above: Performed By: #### N UM #### [facility] ([id number]) [address] [place] [address] 68958 PROTEIN FRANKLIN Negative Normal NEG [facility] Comment on above: Performed By: #### N UM #### [facility] ([id number]) [address] [place] [address] 88072 SPECIFIC GRAVITY FRANKLIN 1.020 Normal 1.003-1 .03 5 [facility] Comment on above: Performed By: #### N UM #### [facility] ([id number]) [address] [place] [address] 16979 UROBILINOGEN FRANKLIN 0.2 eu/dL Normal <1.1 [facility] Comment on above: Performed By: #### N UM #### [facility] ([id number]) [address] [place] [address] 99643 aPTT Coag (PPP) [Time]on aPTT Coag (Bld) [Time] 33 s Normal 26-37 [facility] Comment on above: Result Comment: NEW REFERENCE RANGE Performed By: #### 1 9123-9, 82546-7, CMP, 55733-8, 94936-6, CBCA, 5643-2, PINR #### [facility] ([id number]) [address] [place] [address] 28541 36on 04-18-2024 36 From: Jessica muñoz MD Sent: 04/18/2024 12:32 PM EDT To: Yuridia Nuñez MA Subject: RE: Scan Please inform him that blood testing for clotting disorder is negative. He should follow up with Dr Godwin for cancer screening. Pt has been notified [facility] Office Visiton 04-06-2024 Follow-up visit [id number] Jeb Riddle 1950 M Date Provider Department Center 04/06/2024 JESSICA JAMISON [facility] Family History Problem Relation Age of Onset Diabetes Mother Coronary artery disease Mother Heart attack Father Diabetes Father Coronary artery disease Father Family Status - Relation Status Age at Mother Father Level of Service:83527 [place] OFFICE/OUTPATIENT ESTABLISHED MOD MDM 30 MIN [facility] 36on 02-17-2024 36 Patient called back and said he is taking meds as prescribed at last visit with Dr. Forrester. I made him apt with Dr. Forrester end of Mar since he is not here in Apr. [facility] 36on 02-15-2024 36 Regarding echo from 02/02/2024: MD Yuridia Herman MA Has he been taking meds as I recommended at last visit? 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 He should come for a visit in 3 months. LM w/ sister Mary to return my call. [facility] Activated partial thrombopla stin time (aPTT) in platelet poor plasma by coagulation aOrdered By: Naima Boyd on 01-09-2024 aPTT Coag (PPP) [Time] 29.1 s 25.1-36.5 [facility] Comment on above: A hematocrit value g reater than 55% may lead to inaccurate results in coagulation testing. Patients having hematocrit values >55% require a special collection tube for coagulation studies. Please contact the laboratory at [phone] for redraw instructions. B-Type Natriuretic Peptideon 01-09-2024 Natriuretic peptide B (Bld) [Mass/Vol] 172.0 pg/mL High 5-100 [facility] Comment on above: Result Comment: PERF ORMED BY: [facility] [address] [place] [address] PATHOLOGIST WHIP SAWYER RADHA BARRON M.D. Performed By: #### B APPAREL EMBROIDERY DIGITIZER, HS TROP, BMP, CK, DIFF CBC ####[address] Basic Metabolic Panelon 05-2 Anion gap [Moles/Vol] Not performed Normal 6.0-15.0 [facility] Comment on above: Performed By: #### B APPAREL EMBROIDERY DIGITIZER, HS TROP, BMP, CK, DIFF CBC ####[address] Calcium [Mass/Vol] 8.7 mg/dL Normal 8.6-10.3 [facility] Comment on above: Performed By: #### B APPAREL EMBROIDERY DIGITIZER, HS TROP, BMP, CK, DIFF CBC ####[address] Chloride [Moles/Vol] 109 mmol/L High 98-107 [facility] Comment on above: Performed By: #### B APPAREL EMBROIDERY DIGITIZER, HS TROP, BMP, CK, DIFF CBC ####[address] CO2 [Moles/Vol] 22.4 mmol/L Normal 21.0-31.0 [facility] Comment on above: Performed By: #### B APPAREL EMBROIDERY DIGITIZER, HS TROP, BMP, CK, DIFF CBC ####[address] Creatinine [Mass/Vol] 1.16 mg/dL Normal 0.70-1.30 [facility] Comment on above: Performed By: #### B APPAREL EMBROIDERY DIGITIZER, HS TROP, BMP, CK, DIFF CBC ####[address] Creatinine Clr Calc Pharmacy 64.96 Normal [facility] Comment on above: Result Comment: PERF ORMED BY: [facility] [address] [place] [address] PATHOLOGIST WHIP SAWYER RADHA BARRON M.D. Performed By: #### B APPAREL EMBROIDERY DIGITIZER, HS TROP, BMP, CK, DIFF CBC ####[address] GFR/1.73 sq M.predicted MDRD (S/P/Bld) [Vol rate/Area] mL/min/{1.73_m2} Normal [facility] Comment on above: Performed By: #### B APPAREL EMBROIDERY DIGITIZER, HS TROP, BMP, CK, DIFF CBC ####[place] [id number] [address] Glucose [Mass/Vol] 95 mg/dL Normal 70-100 [facility] Comment on above: Result Comment: [facility] Glucose Reference Range is dependent on time and content of last meal. Glucose of more than 200 mg/dL in a nonstressed, ambulatory subject supports the diagnosis of Diabetes Mellitus. ADA recommended reference range Performed By: #### B APPAREL EMBROIDERY DIGITIZER, HS TROP, BMP, CK, DIFF CBC ####[address] Potassium Normal 3.5-5.1 [facility] Comment on above: Result Comment: Spec imen hemolyzed, redraw requested Performed By: #### B APPAREL EMBROIDERY DIGITIZER, HS TROP, BMP, CK, DIFF CBC ####[address] Sodium [Moles/Vol] 142 mmol/L Normal 136-145 [facility] Comment on above: Performed By: #### B APPAREL EMBROIDERY DIGITIZER, HS TROP, BMP, CK, DIFF CBC ####[address] Urea nitrogen [Mass/Vol] 20 mg/dL Normal 7-25 [facility] Comment on above: Performed By: #### B APPAREL EMBROIDERY DIGITIZER, HS TROP, BMP, CK, DIFF CBC ####[address] Basophils Auto (Bld) [#/Vol] Ordered By: Naima Bullimore on 01-09-2024 Basophils (Bld) [#/Vol] N/A [facility] Basophils/100 WBC Auto (Bld) Ordered By: Naima Bullimore on 01-09-2024 Basophils/100 WBC (Bld) N/A [facility] Basophils/100 WBC Manual cnt (Bld)Ordered By: Naima Bullimore on 01-09-2024 Basophils/100 WBC (Bld) 0 % 0-2 [facility] CT angio chest PE protocolon 01-09-2024 CT angio chest PE protocol [facility] Main [place] [address] [place] [address] CT Scan Report Signed Patient: Jeb Riddle MR#: [id number] : 1950 Acct:[id number] Age/Sex: 73 / M ADM Date: 01/09/24 Loc: ER Room: Type: [facility] ER Attending Dr: Copies to: SABA Blankenship Ordering Provider: SABA Blankenship Date of Service: 01/09/24 CT/CT angio chest PE protocol: chest pain elev dimer 1904 CT angio chest PE protocol 01/09/2024 5:33 [...] Jeb Collins M.D.01/09/2024 6:17 PM Dictation Location: [place] [address] Transcribed By: [facility] 01/09/241816 Dictated By: Jeb Collins II, MD 01/09/241810 Signed By: 01/09/241816 Normal [facility] Calcium [Mass/volume] in Ser um or PlasmaOrdered By: Naima Boyd on 01-09-2024 Calcium [Mass/Vol] 8.7 mg/dL 8.6-10.3 [facility] Carbon dioxide, total [Moles /volume] in Serum or PlasmaOrdered By: Naima Boyd on 01-09-2024 CO2 [Moles/Vol] 22.4 mmol/L 21.0-31.0 [facility] Chloride [Moles/volume] in S pooja or PlasmaOrdered By: Naima Boyd on 01-09-2024 Chloride [Moles/Vol] 109 mmol/L 98-107 [facility] Coagulation Profileon 2023 aPTT Coag (Bld) [Time] 29.1 s Normal 25.1-36.5 [facility] Comment on above: Order Comment: REDRA W Result Comment: A he matocrit value greater than 55% may lead to inaccurate results in coagulation testing. Patients having hematocrit values >55% require a special collection tube for coagulation studies. Please contact the laboratory at [phone] for redraw instructions. Performed By: #### P P, DDIMER ####[facility] [id number] [place] [address] [facility] INR Coag (PPP) [Relative time] 1.0 {INR} Normal [facility] Comment on above: Order [...] 4.5 Performed By: #### P P, DDIMER ####[place] [id number] [place] [address] [facility] PT Coag (PPP) [Time] 11.9 s Normal 9.0-12.9 [facility] Comment on above: Order Comment: REDRA W Result Comment: A he matocrit value greater than 55% may lead to inaccurate results in coagulation testing. Patients having hematocrit values >55% require a special collection tube for coagulation studies. Please contact the laboratory at [phone] for redraw instructions. Performed By: #### P P, DDIMER ####[place] [address] [place] [address] [facility] Creatine Kinaseon 01-09-2024 CK [Catalytic activity/Vol] 81 U/L Normal - [facility] Comment on above: Performed By: #### B APPAREL EMBROIDERY DIGITIZER, HS TROP, BMP, CK, DIFF CBC ####[place] [address] [place] [address] [facility] Creatine kinase [Enzymatic a ctivity/volume] in Serum or PlasmaOrdered By: Naima Bullimore on 01-09-2024 CK [Catalytic activity/Vol] 81 U/L - [facility] Creatinine [Mass/volume] in Serum or PlasmaOrdered By: Naima Bullimore on 01-09-2024 Creatinine [Mass/Vol] 1.16 mg/dL 0.70-1.30 [facility] D-Dimer High Sensitivityon 0 01-09-2024 D-Dimer High Sensitivity 1905 ng/mL High 0-243 [facility] Comment on above: Order [...] coagulation studies. Please contact the laboratory at [phone] for redraw instructions. PERFORMED BY: [address] [place] [address] PATHOLOGIST WHIP SAWYER RADHA BARRON M.D. Performed By: #### P P, DDIMER ####[address] Diff and CBCon 01-09-2024 Basophils/100 WBC (Bld) 0 % Normal 0-2 [facility] Comment on above: Performed By: #### B APPAREL EMBROIDERY DIGITIZER, HS TROP, BMP, CK, DIFF CBC ####[address] Eosinophils/100 WBC (Bld) 4 % High 1-3 [facility] Comment on above: Performed By: #### B APPAREL EMBROIDERY DIGITIZER, HS TROP, BMP, CK, DIFF CBC ####[address] Erythrocyte distribution width (RBC) [Ratio] 14.9 % High 12.0-14.8 [facility] Comment on above: Performed By: #### B APPAREL EMBROIDERY DIGITIZER, HS TROP, BMP, CK, DIFF CBC ####[address] Hematocrit (Bld) [Volume fraction] 41.9 % Normal 38.8-50.0 [facility] Comment on above: Performed By: #### B APPAREL EMBROIDERY DIGITIZER, HS TROP, BMP, CK, DIFF CBC ####[address] Hemoglobin (Bld) [Mass/Vol] 14.1 g/dL Normal 13.0-17.0 [facility] Comment on above: Performed By: #### B APPAREL EMBROIDERY DIGITIZER, HS TROP, BMP, CK, DIFF CBC ####[address] Lymphocytes/100 WBC (Bld) 27 % Normal 18-42 [facility] Comment on above: Performed By: #### B APPAREL EMBROIDERY DIGITIZER, HS TROP, BMP, CK, DIFF CBC ####[address] MCH (RBC) [Entitic mass] 32.0 pg Normal 27.5-35.2 [facility] Comment on above: Performed By: #### B APPAREL EMBROIDERY DIGITIZER, HS TROP, BMP, CK, DIFF CBC ####[address] MCV (RBC) [Entitic vol] 95.1 fL Normal 83.5-101 [facility] Comment on above: Performed By: #### B APPAREL EMBROIDERY DIGITIZER, HS TROP, BMP, CK, DIFF CBC ####[address] Mean Corpuscular HGB Conc 33.6 g/dL Normal 32.5-35.6 [facility] Comment on above: Performed By: #### B APPAREL EMBROIDERY DIGITIZER, HS TROP, BMP, CK, DIFF CBC ####[address] Monocytes/100 WBC (Bld) 25.58 % High 0.00-20.00 [facility] Comment on above: Result Comment: For adults in ED, MDW > 20.0 may be associated with a higher risk of sepsis during the first 12 hrs of hospital admission Performed By: #### B APPAREL EMBROIDERY DIGITIZER, HS TROP, BMP, CK, DIFF CBC ####[address] Monocytes/100 WBC (Bld) 7 % Normal 2-11 [facility] Comment on above: Performed By: #### B APPAREL EMBROIDERY DIGITIZER, HS TROP, BMP, CK, DIFF CBC ####[address] Nucleated Red Blood Cell 0 /100{WBC} Normal 0-0 [facility] Comment on above: Performed By: #### B APPAREL EMBROIDERY DIGITIZER, HS TROP, BMP, CK, DIFF CBC ####[address] Platelet Estimate Normal Normal Normal [facility] Comment on above: Performed By: #### B APPAREL EMBROIDERY DIGITIZER, HS TROP, BMP, CK, DIFF CBC ####[address] Platelet mean volume (Bld) [Entitic vol] 8.6 fL Normal 6.6-10.1 [facility] Comment on above: Performed By: #### B APPAREL EMBROIDERY DIGITIZER, HS TROP, BMP, CK, DIFF CBC ####[address] Platelet Morphology Normal Normal Normal [facility] Comment on above: Performed By: #### B APPAREL EMBROIDERY DIGITIZER, HS TROP, BMP, CK, DIFF CBC ####[address] Platelets (Bld) [#/Vol] 240 10*3/uL Normal 150-450 [facility] Comment on above: Performed By: #### B APPAREL EMBROIDERY DIGITIZER, HS TROP, BMP, CK, DIFF CBC ####[address] Plt Comment SEE COMMENT BELOW Normal [facility] Comment on above: Result Comment: NO C LOTS, NO CLUMPS, SHORT DRAW LFM PERFORMED BY: [place] [address] PATHOLOGIST WHIP SAWYER RADHA BARRON M.D. Performed By: #### B APPAREL EMBROIDERY DIGITIZER, HS TROP, BMP, CK, DIFF CBC ####[address] RBC (Bld) [#/Vol] 4.41 10*6/uL Normal 3.90-5.60 [facility] Comment on above: Performed By: #### B APPAREL EMBROIDERY DIGITIZER, HS TROP, BMP, CK, DIFF CBC ####[address] RBC morphology finding Nom (Bld) Normal Normal Normal [facility] Comment on above: Performed By: #### B APPAREL EMBROIDERY DIGITIZER, HS TROP, BMP, CK, DIFF CBC ####[address] Segmented neutrophils/100 WBC (Bld) 62 % Normal 50-70 [facility] Comment on above: Performed By: #### B APPAREL EMBROIDERY DIGITIZER, HS TROP, BMP, CK, DIFF CBC ####[place] [id number] WBC (Bld) [#/Vol] 7.6 10*3/uL Normal 4.1-10.5 [facility] Comment on above: Performed By: #### B APPAREL EMBROIDERY DIGITIZER, HS TROP, BMP, CK, DIFF CBC ####[place] [id number] WBC (Bld) [#/Vol] 8.4 10*3/uL Normal 4.1-10.5 [facility] Comment on above: Performed By: #### B APPAREL EMBROIDERY DIGITIZER, HS TROP, BMP, CK, DIFF CBC ####[address] ECG 12 lead ECGon 01-09-2024 ECG 12 lead ECG [place] [address] Electrocardiograph Report Signed Patient: Jeb Riddle MR#: [id number] : 1950 Acct:[id number] Age/Sex: 73 / M ADM Date: 01/09/24 Loc: ER Room: Type: [facility] ER Attending Dr: Ordering Provider: SABA [...] DO Transcribed By: MUS Signed By Timothy Patterson, 1828 Normal [facility] Eosinophils Auto (Bld) [#/Vo l]Ordered By: Naima Boyd on 01-09-2024 Eosinophils (Bld) [#/Vol] N/A [facility] Eosinophils/100 WBC Auto (Bl d)Ordered By: Naima Boyd on 01-09-2024 Eosinophils/100 WBC (Bld) N/A [facility] Eosinophils/100 WBC Manual c nt (Bld)Ordered By: Naima Boyd on 01-09-2024 Eosinophils/100 WBC (Bld) 4 % 1-3 [facility] Erythrocyte distribution wid th Auto (RBC) [Ratio]Ordered By: Naimasilvano Boyd on 01-09-2024 Erythrocyte distribution width (RBC) [Ratio] 14.9 % 12.0-14.8 [facility] Fibrin D-dimer [Presence] in Platelet poor plasma by Latex agglutinationOrdered By: Naima Boyd on 01-09-2024 Fibrin D-dimer LA Ql (PPP) 1905 ng/mL 0-243 [facility] Comment on above: The reference range for [...] coagulation studies. Please contact the laboratory at [phone] for redraw instructions. Glucose [Mass/volume] in Ser um or PlasmaOrdered By: Naima Boyd on 01-09-2024 Glucose [Mass/Vol] 95 mg/dL 70-100 [facility] Comment on above: ADA recommended refe rence rangeRandom Glucose Reference Range is dependent on time and content of last meal. Glucose of more than 200 mg/dL in a nonstressed, ambulatory subject supports the diagnosis of Diabetes Mellitus. Hematocrit Auto (Bld) [Volum e fraction]Ordered By: Naima Boyd on 01-09-2024 Hematocrit (Bld) [Volume fraction] 41.9 % 38.8-50.0 [facility] Hemoglobin [Mass/volume] in BloodOrdered By: Naima Boyd on 01-09-2024 Hemoglobin (Bld) [Mass/Vol] 14.1 g/dL 13.0-17.0 [facility] INR in Platelet poor plasma by Coagulation assayOrdered By: Naima Boyd on 01-09-2024 INR Coag (PPP) [Relative time] 1.0 {INR} [facility] Comment on above: INR Therapeutic Rang e [...] RBC Auto (Bld) [#/Vol] 7.6 10*3/uL 4.1-10.5 [facility] Lymphocytes Auto (Bld) [#/Vo l]Ordered By: Naima Boyd on 01-09-2024 Lymphocytes (Bld) [#/Vol] N/A [facility] Lymphocytes/100 WBC Auto (Bl d)Ordered By: Naimasilvano Boyd on 01-09-2024 Lymphocytes/100 WBC (Bld) N/A [facility] Lymphocytes/100 WBC Manual c nt (Bld)Ordered By: Naima Boyd on 01-09-2024 Lymphocytes/100 WBC (Bld) 27 % 18-42 [facility] MCH Auto (RBC) [Entitic mass ]Ordered By: Naima Boyd on 01-09-2024 MCH (RBC) [Entitic mass] 32.0 pg 27.5-35.2 [facility] MCHC Auto (RBC) [Mass/Vol]Or dered By: Naima Bullimore on 01-09-2024 MCHC (RBC) [Mass/Vol] 33.6 g/dL 32.5-35.6 [facility] MCV Auto (RBC) [Entitic vol] Ordered By: Naima Bullimore on 01-09-2024 MCV (RBC) [Entitic vol] 95.1 fL 83.5-101 [facility] Monocyte distribution width [Entitic volume] in Blood by AutomatedOrdered By: Naima Godwinimore on 01-09-2024 Monocyte distribution width Auto (Bld) [Entitic vol] 25.58 % 0.00-20.00 [facility] Comment on above: For adults in ED, MD W > 20.0 may be associated with a higher risk of sepsis during the first 12 hrs of hospital admission Monocytes Auto (Bld) [#/Vol] Ordered By: Naima Bullimore on 01-09-2024 Monocytes (Bld) [#/Vol] N/A [facility] Monocytes/100 WBC Auto (Bld) Ordered By: Naima Bullimore on 01-09-2024 Monocytes/100 WBC (Bld) N/A [facility] Monocytes/100 WBC Manual cnt (Bld)Ordered By: Naima Bullimore on 01-09-2024 Monocytes/100 WBC (Bld) 7 % 2-11 [facility] Natriuretic peptide B [Mass/ Vol]Ordered By: Naima Bullimore on 01-09-2024 Natriuretic peptide B (Bld) [Mass/Vol] 172.0 pg/mL 5-100 [facility] Neutrophils Auto (Bld) [#/Vo l]Ordered By: Naima Bullimore on 01-09-2024 Neutrophils (Bld) [#/Vol] N/A [facility] Neutrophils/100 WBC Auto (Bl d)Ordered By: Naima Bullimore on 01-09-2024 Neutrophils/100 WBC (Bld) N/A [facility] No Panel InformationOrdered By: Naima Godwinimore on 01-09-2024 Estimated GFR (CKD-EPI) > 60.0 mL/Min [facility] Creatinine Clearance (Chem 64.96 [facility] Platelet Comment See comment below [facility] Comment on above: NO CLOTS, NO CLUMPS, SHORT DRAW LFM Nucleated RBC/100 WBC Manual cnt (Bld) [Ratio]Ordered By: Naima Boyd on 01-09-2024 Nucleated RBC/100 WBC (Bld) [Ratio] 0 /100{WBC} 0-0 [facility] Nucleated erythrocytes [Pres ence] in Blood by Automated countOrdered By: Naiam Boyd on 01-09-2024 Nucleated RBC Auto Ql (Bld) N/A [facility] Platelet adequacy [Presence] in Blood by Light microscopyOrdered By: Naima Boyd on 01-09-2024 Platelets LM Ql (Bld) Normal Normal [facility] Platelet mean volume Auto (B ld) [Entitic vol]Ordered By: Naima Boyd on 01-09-2024 Platelet mean volume (Bld) [Entitic vol] 8.6 fL 6.6-10.1 [facility] Platelet morphology finding [Identifier] in BloodOrdered By: Naima Boyd on 01-09-2024 Platelet morphology finding Nom (Bld) Normal Normal [facility] Platelets Auto (Bld) [#/Vol] Ordered By: Naima Boyd on 01-09-2024 Platelets (Bld) [#/Vol] 240 10*3/uL 150-450 [facility] Potassium [Moles/volume] in Serum or PlasmaOrdered By: Naima Boyd on 01-09-2024 Potassium [Moles/Vol] 3.9 mmol/L 3.5-5.1 [facility] Prothrombin time (PT)Ordered By: Naima Boyd on 01-09-2024 PT Coag (PPP) [Time] 11.9 s 9.0-12.9 [facility] Comment on above: A hematocrit value g reater than 55% may lead to inaccurate results in coagulation testing. Patients having hematocrit values >55% require a special collection tube for coagulation studies. Please contact the laboratory at [phone] for redraw instructions. RBC Auto (Bld) [#/Vol]Ordere d By: Naima Rutherfordore on 01-09-2024 RBC (Bld) [#/Vol] 4.41 10*6/uL 3.90-5.60 [facility] RBC morphologyOrdered By: Sabine Boyd on 01-09-2024 RBC morphology finding Nom (Bld) Normal Normal [facility] Redraw Potassiumon Potassium [Moles/Vol] 3.9 mmol/L Normal 3.5-5.1 [facility] Comment on above: Result Comment: PERF ORMED BY: [facility] [address] [place] [address] PATHOLOGIST WHIP SAWYER RADHA BARRON M.D. Performed By: #### R TONY K ####[facility] [id number] [place] [id number] [facility] Segmented neutrophils/100 WB C Manual cnt (Bld)Ordered By: Naima Boyd on 01-09-2024 Segmented neutrophils/100 WBC (Bld) 62 % 50-70 [facility] Serum or plasma anion gap de terminationOrdered By: Naima Boyd on 01-09-2024 Anion gap [Moles/Vol] TNP [facility] Comment on above: Test not performed Sodium [Moles/volume] in Ser um or PlasmaOrdered By: Naima Godwinimore on 01-09-2024 Sodium [Moles/Vol] 142 mmol/L 136-145 [facility] Troponin I High Sensitivityo n 01-09-2024 Troponin I High Sensitivity 13.1 pg/mL Normal 0.0-20.0 [facility] Comment on above: Result Comment: PERF ORMED BY: [facility] [address] [place] [id number] PATHOLOGIST WHIP SAWYER RADHA BARRON M.D. Performed By: #### H S TROP #### [facility] [address] [place] [id number] [facility] Troponin I High Sensitivity 12.5 pg/mL Normal 0.0-20.0 [facility] Comment on above: Result Comment: PERF ORMED BY: [facility] [address] [place] [id number] PATHOLOGIST WHIP SAWYER RADHA BARRON M.D. Performed By: #### B APPAREL EMBROIDERY DIGITIZER, HS TROP, BMP, CK, DIFF CBC ####[facility] [id number] Troponin I.cardiac [Mass/vol ume] in Serum or Plasma by Detection limit <= 0.01 ng/Ordered By: Naima Boyd on 01-09-2024 Troponin I.cardiac DL <= 0.01 ng/mL [Mass/Vol] 13.1 pg/mL 0.0-20.0 [facility] Urea nitrogen [Mass/volume] in Serum or PlasmaOrdered By: Naima Boyd on 01-09-2024 Urea nitrogen [Mass/Vol] 20 mg/dL 03-08 [facility] WBC Auto (Bld) [#/Vol]Ordere d By: Naima Boyd on 01-09-2024 WBC (Bld) [#/Vol] 8.4 10*3/uL 4.1-10.5 [facility] XR chest 2V*on 01-09-2024 XR chest 2V* [facility] [address] [place] [address] [place] [address] XRay Report Signed Patient: Jeb Riddle MR#: [id number] : 1950 Acct:[id number] Age/Sex: 73 / M ADM Date: 01/09/24 Loc: ER Room: Type: [facility] ER Attending Dr: Copies to: SABA [...] Jeb Collins M.D.01/09/2024 4:11 PM Dictation Location: [facility]--13 Transcribed By: [facility] 01/09/24 1611 Dictated By: Jeb Collins II, MD 01/09/24 1610 Signed By: 01/09/24 1611 Normal [facility] ECG 12 lead ECGon 12-18-2023 ECG 12 lead ECG [facility] Main [address] [address] Electrocardiograph Report Signed Patient: Jeb Riddle MR#: [id number] : 1950 Acct:[id number] Age/Sex: 73 / M ADM Date: 12/18/23 Loc: ER Room: Type: [facility] ER Attending Dr: Ordering Provider: Marie [...] was found Confirmed by RAMIRO CORTEZ DO ([id number]) on 12/18/2023 4:44:01 PM Referred By: Electronically Signed By:RAMIRO CORTEZ DO Transcribed By: MUS Signed By Ramiro Cortez DO 12/17 1644 Normal [facility] Activated partial thrombopla stin time (aPTT) in platelet poor plasma by coagulation aOrdered By: Ramiro Cortez on 03-03-2023 aPTT Coag (PPP) [Time] 29.7 s 25.1-36.5 [facility] B-Type Natriuretic Peptideon 03-03-2023 Natriuretic peptide B (Bld) [Mass/Vol] 52.0 pg/mL Normal 5-100 [facility] Comment on above: Result Comment: PERF ORMED BY: [address] [address] PATHOLOGIST WHIP SAWYER RADHA BARRON M.D. Performed By: #### C BC, CK, PT, PTT, BMP, HS TROP, BNP ####[place] [id number] [facility] Basic Metabolic Panelon 02-13 Anion gap [Moles/Vol] 10.6 mmol/L Normal 6.0-15.0 Th e [facility] Comment on above: Performed By: #### C BC, CK, PT, PTT, BMP, HS TROP, BNP ####[address] Calcium [Mass/Vol] 8.6 mg/dL Normal 8.6-10.3 [facility] Comment on above: Performed By: #### C BC, CK, PT, PTT, BMP, HS TROP, BNP ####[address] Chloride [Moles/Vol] 108 mmol/L High 98-107 [facility] Comment on above: Performed By: #### C BC, CK, PT, PTT, BMP, HS TROP, BNP ####[address] CO2 [Moles/Vol] 24.6 mmol/L Normal 21.0-31.0 [facility] Comment on above: Performed By: #### C BC, CK, PT, PTT, BMP, HS TROP, BNP ####[place] [id number] [facility] Creatinine [Mass/Vol] 1.19 mg/dL Normal 0.70-1.30 [facility] Comment on above: Performed By: #### C BC, CK, PT, PTT, BMP, HS TROP, BNP ####[place] [id number] [facility] Creatinine Clr Calc Pharmacy 55.29 Normal [facility] Comment on above: Result Comment: PERF ORMED BY: [facility] [address] [place] [address] PATHOLOGIST WHIP SAWYER RADHA BARRON M.D. Performed By: #### C BC, CK, PT, PTT, BMP, HS TROP, BNP ####[address] GFR/1.73 sq M.predicted MDRD (S/P/Bld) [Vol rate/Area] mL/min/{1.73_m2} Normal [facility] Comment on above: Performed By: #### C BC, CK, PT, PTT, BMP, HS TROP, BNP ####[address] Glucose [Mass/Vol] 93 mg/dL Normal 70-100 [facility] Comment on above: Result Comment: [facility] Glucose Reference Range is dependent on time and content of last meal. Glucose of more than 200 mg/dL in a nonstressed, ambulatory subject supports the diagnosis of Diabetes Mellitus. ADA recommended reference range Performed By: #### C BC, CK, PT, PTT, BMP, HS TROP, BNP ####[address] Potassium [Moles/Vol] 4.2 mmol/L Normal 3.5-5.1 [facility] Comment on above: Performed By: #### C BC, CK, PT, PTT, BMP, HS TROP, BNP ####[address] Sodium [Moles/Vol] 139 mmol/L Normal 136-145 [facility] Comment on above: Performed By: #### C BC, CK, PT, PTT, BMP, HS TROP, BNP ####[address] Urea nitrogen [Mass/Vol] 17 mg/dL Normal 7-25 [facility] Comment on above: Performed By: #### C BC, CK, PT, PTT, BMP, HS TROP, BNP ####[address] Basophils Auto (Bld) [#/Vol] Ordered By: Ramiro Cortez on 03-03-2023 Basophils (Bld) [#/Vol] 0.0 10*3/uL 0.0-0.2 [facility] Basophils/100 WBC Auto (Bld) Ordered By: Ramiro Cortez on 03-03-2023 Basophils/100 WBC (Bld) 0.4 % . [facility] Calcium [Mass/volume] in Ser um or PlasmaOrdered By: Ramiro Cortez on 03-03-2023 Calcium [Mass/Vol] 8.6 mg/dL 8.6-10.3 [facility] Carbon dioxide, total [Moles /volume] in Serum or PlasmaOrdered By: Ramiro Cortez on 03-03-2023 CO2 [Moles/Vol] 24.6 mmol/L 21.0-31.0 [facility] Chloride [Moles/volume] in S pooja or PlasmaOrdered By: Ramiro Cortez on 03-03-2023 Chloride [Moles/Vol] 108 mmol/L 98-107 [facility] Complete Blood Count Auto Di ffon 03-03-2023 Basophils (Bld) [#/Vol] 0.0 10*3/uL Normal 0.0-0.2 [facility] Comment on above: Result Comment: PERF ORMED BY: [place] [address] PATHOLOGIST WHIP SAWYER RADHA BARRON M.D. Performed By: #### C BC, CK, PT, PTT, BMP, HS TROP, BNP #### [facility] [address] Basophils/100 WBC (Bld) 0.4 % Normal . [facility] Comment on above: Performed By: #### C BC, CK, PT, PTT, BMP, HS TROP, BNP #### [facility] [address] [place] [address] [place] Eosinophils (Bld) [#/Vol] 0.2 10*3/uL Normal 0.0-0.45 [facility] Comment on above: Performed By: #### C BC, CK, PT, PTT, BMP, HS TROP, BNP #### [facility] [address] [place] [address] [place] Eosinophils/100 WBC (Bld) 2.4 % Normal . [facility] Comment on above: Performed By: #### C BC, CK, PT, PTT, BMP, HS TROP, BNP #### [address] Erythrocyte distribution width (RBC) [Ratio] 13.0 % Normal 12.0-14.8 [facility] Comment on above: Performed By: #### C BC, CK, PT, PTT, BMP, HS TROP, BNP #### [address] Hematocrit (Bld) [Volume fraction] 38.3 % Low 38.8-50.0 [facility] Comment on above: Performed By: #### C BC, CK, PT, PTT, BMP, HS TROP, BNP #### [address] Hemoglobin (Bld) [Mass/Vol] 12.9 g/dL Low 13.0-17.0 [facility] Comment on above: Performed By: #### C BC, CK, PT, PTT, BMP, HS TROP, BNP #### [address] Lymphocytes (Bld) [#/Vol] 2.6 10*3/uL Normal 1.00-4.8 [facility] Comment on above: Performed By: #### C BC, CK, PT, PTT, BMP, HS TROP, BNP #### [address] Lymphocytes/100 WBC (Bld) 28.3 % Normal . [facility] Comment on above: Performed By: #### C BC, CK, PT, PTT, BMP, HS TROP, BNP #### [address] MCH (RBC) [Entitic mass] 30.8 pg Normal 27.5-35.2 [facility] Comment on above: Performed By: #### C BC, CK, PT, PTT, BMP, HS TROP, BNP #### [address] MCV (RBC) [Entitic vol] 91.9 fL Normal 83.5-101 [facility] Comment on above: Performed By: #### C BC, CK, PT, PTT, BMP, HS TROP, BNP #### [address] Mean Corpuscular HGB Conc 33.6 g/dL Normal 32.5-35.6 [facility] Comment on above: Performed By: #### C BC, CK, PT, PTT, BMP, HS TROP, BNP #### [address] Monocytes (Bld) [#/Vol] 0.6 10*3/uL Normal 0.0-0.8 [facility] Comment on above: Performed By: #### C BC, CK, PT, PTT, BMP, HS TROP, BNP #### [address] Monocytes/100 WBC (Bld) 24.67 % High 0.00-20.00 [facility] Comment on above: Result Comment: For adults in ED, MDW > 20.0 may be associated with a higher risk of sepsis during the first 12 hrs of hospital admission Performed By: #### C BC, CK, PT, PTT, BMP, HS TROP, BNP #### [address] Monocytes/100 WBC (Bld) 6.5 % Normal . [facility] Comment on above: Performed By: #### C BC, CK, PT, PTT, BMP, HS TROP, BNP #### [address] Neutrophils (Bld) [#/Vol] 5.7 10*3/uL Normal 1.8-7.7 [facility] Comment on above: Performed By: #### C BC, CK, PT, PTT, BMP, HS TROP, BNP #### [address] Neutrophils/100 WBC (Bld) 62.4 % Normal . [facility] Comment on above: Performed By: #### C BC, CK, PT, PTT, BMP, HS TROP, BNP #### [place] [address] NRBC% 0.1 /100{WBC} Normal 0-0.5 [facility] Comment on above: Performed By: #### C BC, CK, PT, PTT, BMP, HS TROP, BNP #### [facility] [address] Platelet mean volume (Bld) [Entitic vol] 8.2 fL Normal 6.6-10.1 [facility] Comment on above: Performed By: #### C BC, CK, PT, PTT, BMP, HS TROP, BNP #### [facility] [address] Platelets (Bld) [#/Vol] 234 10*3/uL Normal 150-450 [facility] Comment on above: Performed By: #### C BC, CK, PT, PTT, BMP, HS TROP, BNP #### [address] RBC (Bld) [#/Vol] 4.17 10*6/uL Normal 3.90-5.60 [facility] Comment on above: Performed By: #### C BC, CK, PT, PTT, BMP, HS TROP, BNP #### [address] WBC (Bld) [#/Vol] 9.2 10*3/uL Normal 4.1-10.5 [facility] Comment on above: Performed By: #### C BC, CK, PT, PTT, BMP, HS TROP, BNP #### [address] Creatine Kinaseon 03-03-2023 CK [Catalytic activity/Vol] 125 U/L Normal 30-223 [facility] Comment on above: Performed By: #### C BC, CK, PT, PTT, BMP, HS TROP, BNP ####[facility] [place] [address] Creatine kinase [Enzymatic a ctivity/volume] in Serum or PlasmaOrdered By: Ramiro Cortez on 03-03-2023 CK [Catalytic activity/Vol] 125 U/L [facility] Creatinine [Mass/volume] in Serum or PlasmaOrdered By: Ramiro Cortez on 03-03-2023 Creatinine [Mass/Vol] 1.19 mg/dL 0.70-1.30 [facility] ECG 12 lead ECGon 03-03-2023 ECG 12 lead ECG [facility] Main [place] [id number] Electrocardiograph Report Signed Patient: Jeb Riddle MR#: [id number] : 1950 Acct:[id number] Age/Sex: 72 / M ADM Date: 03/03/23 Loc: ER Room: Type: [facility] ER Attending Dr: Ordering Provider: Ramiro [...] ECGs available Confirmed by RAMIRO CORTEZ DO ([id number]) on 03/03/2023 8:14:27 PM Referred By: Electronically Signed By:RAMIRO CORTEZ DO Transcribed By: MUS Signed By Ramiro Cortez DO 03/03 Normal [facility] Eosinophils Auto (Bld) [#/Vo l]Ordered By: Ramiro Cortez on 03-03-2023 Eosinophils (Bld) [#/Vol] 0.2 10*3/uL 0.0-0.45 [facility] Eosinophils/100 WBC Auto (Bl d)Ordered By: Ramiro Cortez on 03-03-2023 Eosinophils/100 WBC (Bld) 2.4 % . [facility] Erythrocyte distribution wid th Auto (RBC) [Ratio]Ordered By: Ramiro Cortez on 03-03-2023 Erythrocyte distribution width (RBC) [Ratio] 13.0 % 12.0-14.8 [facility] Glucose [Mass/volume] in Ser um or PlasmaOrdered By: Ramiro Cortez on 03-03-2023 Glucose [Mass/Vol] 93 mg/dL 70-100 [facility] Comment on above: ADA recommended refe rence rangeRandom Glucose Reference Range is dependent on time and content of last meal. Glucose of more than 200 mg/dL in a nonstressed, ambulatory subject supports the diagnosis of Diabetes Mellitus. Hematocrit Auto (Bld) [Volum e fraction]Ordered By: Ramiro Cortez on 03-03-2023 Hematocrit (Bld) [Volume fraction] 38.3 % 38.8-50.0 [facility] Hemoglobin [Mass/volume] in BloodOrdered By: Ramiro Cortez on 03-03-2023 Hemoglobin (Bld) [Mass/Vol] 12.9 g/dL 13.0-17.0 [facility] Laboratory - CoagulationOrde red By: Ramiro Cortez on 03-03-2023 PT Coag (PPP) [Time] 12.3 s 9.0-12.9 [facility] Leukocytes [#/volume] correc ava for nucleated erythrocytes in Blood by Automated counOrdered By: Ramiro Cortez on 03-03-2023 WBC corrected for nucl RBC Auto (Bld) [#/Vol] 9.2 10*3/uL 4.1-10.5 [facility] Lymphocytes Auto (Bld) [#/Vo l]Ordered By: Ramiro Cortez on 03-03-2023 Lymphocytes (Bld) [#/Vol] 2.6 10*3/uL 1.00-4.8 [facility] Lymphocytes/100 WBC Auto (Bl d)Ordered By: Ramiro Cortez on 03-03-2023 Lymphocytes/100 WBC (Bld) 28.3 % . [facility] MCH Auto (RBC) [Entitic mass ]Ordered By: Ramiro Cortez on 03-03-2023 MCH (RBC) [Entitic mass] 30.8 pg 27.5-35.2 [facility] MCHC Auto (RBC) [Mass/Vol]Or dered By: Ramiro Cortez on 03-03-2023 MCHC (RBC) [Mass/Vol] 33.6 g/dL 32.5-35.6 [facility] MCV Auto (RBC) [Entitic vol] Ordered By: Ramiro Cortez on 03-03-2023 MCV (RBC) [Entitic vol] 91.9 fL 83.5-101 [facility] Monocyte distribution width [Entitic volume] in Blood by AutomatedOrdered By: Ramiro Cortez on 03-03-2023 Monocyte distribution width Auto (Bld) [Entitic vol] 24.67 % 0.00-20.00 [facility] Comment on above: For adults in ED, MD W > 20.0 may be associated with a higher risk of sepsis during the first 12 hrs of hospital admission Monocytes Auto (Bld) [#/Vol] Ordered By: Ramiro Cortez on 03-03-2023 Monocytes (Bld) [#/Vol] 0.6 10*3/uL 0.0-0.8 [facility] Monocytes/100 WBC Auto (Bld) Ordered By: Ramiro Cortez on 03-03-2023 Monocytes/100 WBC (Bld) 6.5 % . [facility] Natriuretic peptide B [Mass/ Vol]Ordered By: Ramiro Cortez on 03-03-2023 Natriuretic peptide B (Bld) [Mass/Vol] 52.0 pg/mL 5-100 [facility] Neutrophils Auto (Bld) [#/Vo l]Ordered By: Ramiro Cortez on 03-03-2023 Neutrophils (Bld) [#/Vol] 5.7 10*3/uL 1.8-7.7 [facility] Neutrophils/100 WBC Auto (Bl d)Ordered By: Ramiro Cortez on 03-03-2023 Neutrophils/100 WBC (Bld) 62.4 % . [facility] No Panel InformationOrdered By: Ramiro Cortez on 03-03-2023 Estimated GFR (CKD-EPI) > 60.0 mL/Min [facility] Creatinine Clearance (Chem 55.29 [facility] Nucleated erythrocytes [Pres ence] in Blood by Automated countOrdered By: Ramiro Cortez on 03-03-2023 Nucleated RBC Auto Ql (Bld) 0.1 /100{WBC} 0-0.5 [facility] Partial Thromboplastin Timeo n 03-03-2023 aPTT Coag (Bld) [Time] 29.7 s Normal 25.1-36.5 Th e [facility] Comment on above: Result Comment: PERF ORMED BY: [facility] [address] [place] [address] PATHOLOGIST WHIP SAWYER RADHA BARRON M.D. Performed By: #### C BC, CK, PT, PTT, BMP, HS TROP, BNP #### [facility] [address] Platelet mean volume Auto (B ld) [Entitic vol]Ordered By: Ramiro Cortez on 03-03-2023 Platelet mean volume (Bld) [Entitic vol] 8.2 fL 6.6-10.1 [facility] Platelet poor plasma interna tional normalized ratio (INR) by coagulation assay (relatOrdered By: Ramiro Cortez on 03-03-2023 INR Coag (PPP) [Relative time] 1.1 {INR} [facility] Comment on above: INR Therapeutic Rang e [...] 03-03-2023 Platelets (Bld) [#/Vol] 234 10*3/uL 150-450 [facility] Potassium [Moles/volume] in Serum or PlasmaOrdered By: Ramiro Cortez on 03-03-2023 Potassium [Moles/Vol] 4.2 mmol/L 3.5-5.1 [facility] Prothrombin Time INRon 03-03 INR Coag (PPP) [Relative time] 1.1 {INR} Normal [facility] Comment on above: Result [...] BMP, HS TROP, BNP #### [facility] [address] PT Coag (PPP) [Time] 12.3 s Normal 9.0-12.9 [facility] Comment on above: Performed By: #### C BC, CK, PT, PTT, BMP, HS TROP, BNP #### [facility] [address] RBC Auto (Bld) [#/Vol]Ordere d By: Ramiro Cortez on 03-03-2023 RBC (Bld) [#/Vol] 4.17 10*6/uL 3.90-5.60 [facility] Serum or plasma anion gap de terminationOrdered By: Ramiro Cortez on 03-03-2023 Anion gap [Moles/Vol] 10.6 mmol/L 6.0-15.0 [facility] Sodium [Moles/volume] in Ser um or PlasmaOrdered By: Ramiro Cortez on 03-03-2023 Sodium [Moles/Vol] 139 mmol/L 136-145 [facility] Troponin I High Sensitivityo n 03-03-2023 Troponin I High Sensitivity 7.6 pg/mL Normal 0.0-20.0 [facility] Comment on above: Result Comment: PERF ORMED BY: [facility] [address] [place] [address] PATHOLOGIST WHIP SAWYER RADHA BARRON M.D. Performed By: #### C BC, CK, PT, PTT, BMP, HS TROP, BNP ####[facility] [id number] Troponin I.cardiac [Mass/vol ume] in Serum or Plasma by Detection limit <= 0.01 ng/Ordered By: Ramiro Cortez on 03-03-2023 Troponin I.cardiac DL <= 0.01 ng/mL [Mass/Vol] 7.6 pg/mL 0.0-20.0 [facility] Urea nitrogen [Mass/volume] in Serum or PlasmaOrdered By: Ramiro Cortez on 07-20-2023 Urea nitrogen [Mass/Vol] 17 mg/dL 03-08 [facility] WBC Auto (Bld) [#/Vol]Ordere d By: Ramiro Cortez on 03-03-2023 WBC (Bld) [#/Vol] 9.2 10*3/uL 4.1-10.5 [facility] XR chest 2V*on 03-03-2023 XR chest 2V* [facility] Main [place] [address] [place] [address] XRay Report Signed Patient: Jeb Riddle MR#: [id number] : 1950 Acct:[id number] Age/Sex: 72 / M ADM Date: 03/03/23 Loc: ER Room: Type: [facility] ER Attending Dr: Copies to: Ramiro [...] Ivonne Zavala M.D.03/03/2023 12:46 PM Dictation Location: [place] [address] Transcribed By: [facility] 03/03/23 1246 Dictated By: Ivonne Zavala MD 03/03/23 1245 Signed By: 03/03/23 1246 Normal [facility] CBC AUTO DIFFon 01-11-2023 BASO # 0.0 103/ul Normal 0.0-0.1 [facility] Comment on above: Performed By: #### C BC #### [facility] [address] [place], [place] [address] Dr. Andrea Garcia Basophils/100 WBC (Bld) 0.0 % Critically low 0.2-2.0 [facility] Comment on above: Performed By: #### C BC #### [facility] [address] [place] [address] Dr. Andrea Garcia EO # 0.0 103/ul Normal 0.0-0.7 [facility] Comment on above: Performed By: #### C BC #### [facility] [address] [place] [address] Dr. Andrea Garcia Eosinophils/100 WBC (Bld) 0.0 % Critically low 0.9-7.0 [facility] Comment on above: Performed By: #### C BC #### [facility] [address] [place] [address] Dr. Andrea Garcia Erythrocyte distribution width (RBC) [Ratio] 12.8 % Normal 11.0-15.0 [facility] Comment on above: Performed By: #### C BC #### [facility] [address] [place] [address] Dr. Andrea Garcia Hematocrit (Bld) [Volume fraction] 36.2 % Critically low 42.0-54.0 [facility] Comment on above: Performed By: #### C BC #### [facility] [address] [place] [address] Dr. Andrea Garcia Hemoglobin (Bld) [Mass/Vol] 12.8 g/dL Critically low 14.0-18.0 [facility] Comment on above: Performed By: #### C BC #### [facility] [address] [place] [address] Dr. Andrea Garcia IG # 0.03 10e3/ul Normal 0.00-0.03 [facility] Comment on above: Performed By: #### C BC #### [facility] [address] [place] [address] Dr. Andrea Garcia IG % 0.4 % Normal 0.0-0.5 [facility] Comment on above: Performed By: #### C BC #### [facility] [address] [place] [address] Dr. Andrea Garcia LYMPH # 1.1 103/ul Critically low 1.2-3.8 [facility] Comment on above: Performed By: #### C BC #### [facility] [address] [place] [address] Dr. Andrea Garcia Lymphocytes/100 WBC (Bld) 15.3 % Critically low 20.5-60.0 [facility] Comment on above: Performed By: #### C BC #### [facility] [address] [place] [address] Dr. Andrea Garcia MANUAL DIFF REQ NO Normal [facility] Comment on above: Performed By: #### C BC #### [facility] [address] [place] [address] Dr. Andrea Garcia MCH (RBC) [Entitic mass] 31.3 pg Normal 25.9-34.0 [facility] Comment on above: Performed By: #### C BC #### [facility] [address] [place] [address] Dr. Andrea Garcia MCHC (RBC) [Mass/Vol] 35.4 g/dL Critically high 29.9-35.2 [facility] Comment on above: Performed By: #### C BC #### [facility] [address] [place] [address] Dr. Andrea Garcia MCV (RBC) [Entitic vol] 88.5 fL Normal 80.0-94.0 [facility] Comment on above: Performed By: #### C BC #### [facility] [address] [place] [address] Dr. Andrea Garcia MONO # 0.1 103/ul Critically low 0.3-0.8 [facility] Comment on above: Performed By: #### C BC #### [facility] [address] [place] [address] Dr. Andrea Garcia Monocytes/100 WBC (Bld) 0.7 % Critically low 1.7-12.0 [facility] Comment on above: Performed By: #### C BC #### [facility] [address] [place] [address] Dr. Andrea Garcia NEUT # 6.0 103/ul Normal 1.4-6.5 [facility] Comment on above: Performed By: #### C BC #### [facility] [address] [place] [address] Dr. Andrea Garcia Neutrophils/100 WBC (Bld) 83.6 % Critically high 43.0-75.0 [facility] Comment on above: Performed By: #### C BC #### [facility] [address] [place] [address] Dr. Andrea Garcia Platelet mean volume (Bld) [Entitic vol] 10.1 fL Normal 9.5-13.5 [facility] Comment on above: Performed By: #### C BC #### [facility] [address] [place] [address] Dr. Andrea Garcia PLT 216 103/ul Normal 150-450 [facility] Comment on above: Performed By: #### C BC #### [facility] [address] [place] [address] Dr. Andrea Garcia RBC 4.09 106/ul Critically low 4.70-6.10 [facility] Comment on above: Performed By: #### C BC #### [facility] [address] [place] [address] Dr. Andrea Garcia WBC 7.2 103/ul Normal 4.0-11.0 [facility] Comment on above: Performed By: #### C BC #### [facility] [address] [place] [address] Dr. Andrea Garcia PROF 14(COMP METB)on 023 Albumin [Mass/Vol] 2.8 g/dL Critically low 3.4-5.0 [facility] Comment on above: Performed By: #### C MP #### [facility] [address] [place] [address] Dr. Andrea Garcia Albumin/Globulin [Mass ratio] 0.8 {ratio} Normal [facility] Comment on above: Performed By: #### C MP #### [facility] [address] [place] [address] Dr. Andrea Garcia ALP [Catalytic activity/Vol] 64 U/L Normal 46-116 [facility] Comment on above: Performed By: #### C MP #### [facility] [address] [place] [address] Dr. Andrea Garcia ALT [Catalytic activity/Vol] 27 U/L Normal 16-63 [facility] Comment on above: Performed By: #### C MP #### [facility] [address] [place] [address] [address] Andrea Garcia Anion gap [Moles/Vol] 12.9 mmol/L Normal Th [facility] Comment on above: Performed By: #### C MP #### [facility] [address] [place] [address] [address] Andrea Garcia AST [Catalytic activity/Vol] 16 U/L Normal 15-37 [facility] Comment on above: Performed By: #### C MP #### [facility] [address] [place] [address] Dr. Andrea Garcia Bilirubin [Mass/Vol] 0.4 mg/dL Normal 0.2-1.0 [facility] Comment on above: Performed By: #### C MP #### [facility] [address] [place] [address] Dr. Andrea Garcia Calcium [Mass/Vol] 8.2 mg/dL Critically low 8.5-10.1 [facility] Comment on above: Performed By: #### C MP #### [facility] [address] [place] [address] Dr. Andrea Garcia Chloride [Moles/Vol] 107 mmol/L Normal 98-107 [facility] Comment on above: Performed By: #### C MP #### [facility] [address] [place] [address] [address] Andrea Garcia CO2 [Moles/Vol] 24.2 mmol/L Normal 21.0-32.0 [facility] Comment on above: Performed By: #### C MP #### [facility] [address] [place] [address] Dr. Andrea Garcia Creatinine [Mass/Vol] 1.07 mg/dL Normal 0.70-1.30 [facility] Comment on above: Performed By: #### C MP #### [facility] [address] [place] [address] Dr. Andrea Garcia EGFR-AF TUNISIAN >60 Normal >=60 [facility] Comment on above: Performed By: #### C MP #### [facility] [address] [place] [address] [address] Andrea Garcia EGFR-NON AF TUNISIAN >60 Normal >=60 [facility] Comment on above: Performed By: #### C MP #### [facility] [address] [place] [address] [address] Andrea Garcia Globulin (S) [Mass/Vol] 3.5 g/dL Normal [facility] Comment on above: Performed By: #### C MP #### [facility] [address] [place] [address] [address] Andrea Garcia Glucose [Mass/Vol] 164 mg/dL Critically high 74-106 [facility] Comment on above: Performed By: #### C MP #### [facility] [address] [place] [address] [address] Andrea Garcia Potassium [Moles/Vol] 4.1 mmol/L Normal 3.5-5.1 [facility] Comment on above: Performed By: #### C MP #### [facility] [address] [place] [address] [address] Andrea Garcia Protein [Mass/Vol] 6.3 g/dL Critically low 6.4-8.2 Th [facility] Comment on above: Performed By: #### C MP #### [facility] [address] [place] [address] [address] Andrea Garcia Sodium [Moles/Vol] 140 mmol/L Normal 136-145 [facility] Comment on above: Performed By: #### C MP #### [facility] [address] [place] [address] [address] Andrea Garcia Urea nitrogen [Mass/Vol] 16.0 mg/dL Normal 7.0-18.0 [facility] Comment on above: Performed By: #### C MP #### [facility] [address] [place] [address] [address] Andrea Garcia Urea nitrogen/Creatinine [Mass ratio] 15.0 mg/mg Normal [facility] Comment on above: Performed By: #### C MP #### [facility] [address] [place] [address] [address] Andrea Garcia XR KUB 1 VIEWon [...] ROBERT DAVENPORT Date: 2023-01-11 06:56 Normal [facility] AMYLASEon 01-10-2023 Amylase [Catalytic activity/Vol] 56 U/L Normal 25-115 [facility] Comment on above: Performed By: #### C MADM, CMP, DAMIEN, LIPA ####[facility] [address] [place] [address]Dr. Andrea Garcia CARDIAC JEB 3-6on CK [Catalytic activity/Vol] 92 U/L Normal 39-308 [facility] Comment on above: Performed By: #### C MREP #### [facility] [address] [place] [address] [address] Andrea Garcia CK.MB [Mass/Vol] 1.66 ng/mL Normal <=3.60 [facility] Comment on above: Performed By: #### C MREP #### [facility] [address] [place] [address] [address] Andrea Garcia HSTROP 12.8 pg/mL Normal 4.0-76.1 [facility] Comment on above: Result Comment: CUT- OFF POINTS HAVE BEEN ESTABLISHED BASED ON THE FOURTH UNIVERSAL DEFINITIONS OF MYOCARDIAL INFARCTION. THE UPPER REFERENCE LIMIT (URL) OF TROPONIN, DEFINED THE 99TH PERCENTILE OF cTnI DISTRIBUTION IN A REFERENCE POPULATION, HAS BEEN CONFIRMED THE DECISION THRESHOLD FOR NM DIAGNOSIS. Performed By: #### C MREP #### [facility] [address] [place] [address] [address] Andrea Garcia CK [Catalytic activity/Vol] 72 U/L Normal 39-308 [facility] Comment on above: Performed By: #### C MREP #### [facility] [address] [place] [address] [address] Andrea Garcia CK.MB [Mass/Vol] 1.89 ng/mL Normal <=3.60 [facility] Comment on above: Performed By: #### C MREP #### [facility] [address] [place] [address] [address] Andrea Garcia HSTROP 13.5 pg/mL Normal 4.0-76.1 [facility] Comment on above: Result Comment: CUT- OFF POINTS HAVE BEEN ESTABLISHED BASED ON THE FOURTH UNIVERSAL DEFINITIONS OF MYOCARDIAL INFARCTION. THE UPPER REFERENCE LIMIT (URL) OF TROPONIN, DEFINED THE 99TH PERCENTILE OF cTnI DISTRIBUTION IN A REFERENCE POPULATION, HAS BEEN CONFIRMED THE DECISION THRESHOLD FOR NM DIAGNOSIS. Performed By: #### C MREP #### [facility] [address] [place] [address] [address] Andrea Garcia CARDIAC JEB ADMITon 023 CK [Catalytic activity/Vol] 85 U/L Normal 39-308 [facility] Comment on above: Performed By: #### C MADM, CMP, DAMIEN, LIPA ####[facility] [address] [place] [address]Dr. Andrea Garcia CK.MB [Mass/Vol] 1.80 ng/mL Normal <=3.60 [facility] Comment on above: Performed By: #### C MADM, CMP, DAMIEN, LIPA ####[facility] [address] [place] [place] [id number]. Andrea Garcia HSTROP 15.7 pg/mL Normal 4.0-76.1 [facility] Comment on above: Result Comment: CUT- OFF POINTS HAVE BEEN ESTABLISHED BASED ON THE FOURTH UNIVERSAL DEFINITIONS OF MYOCARDIAL INFARCTION. THE UPPER REFERENCE LIMIT (URL) OF TROPONIN, DEFINED THE 99TH PERCENTILE OF cTnI DISTRIBUTION IN A REFERENCE POPULATION, HAS BEEN CONFIRMED THE DECISION THRESHOLD FOR NM DIAGNOSIS. Performed By: #### C MADM, CMP, DAMIEN, LIPA ####[facility] [address] [place] [address]Dr. Yilan Garcia MIQUEL 61 ng/mL Normal 16-96 [facility] Comment on above: Performed By: #### C MADM, CMP, DAMIEN, LIPA ####[facility] [address]giuksq[address] [place] [address]Dr. Andrea Garcia CBC AUTO DIFFon 01-10-2023 BASO # 0.0 103/ul Normal 0.0-0.1 [facility] Comment on above: Performed By: #### C BC ####[facility] Achowwbeyc[address] [place], [place] [address]Dr. Andrea Jose Basophils/100 WBC (Bld) 0.5 % Normal 0.2-2.0 [facility] Comment on above: Performed By: #### C BC ####[facility] [address]hdnd[address] [place], [place] [address]Dr. Andrea Garcia EO # 0.4 103/ul Normal 0.0-0.7 [facility] Comment on above: Performed By: #### C BC ####[facility] Tgbudohbal[address] [place], [place] [address]Dr. Andrea Garcia Eosinophils/100 WBC (Bld) 5.9 % Normal 0.9-7.0 [facility] Comment on above: Performed By: #### C BC ####[facility] Enqgnouwks[address] [place], [place] [address]Dr. Andrea Garcia Erythrocyte distribution width (RBC) [Ratio] 13.0 % Normal 11.0-15.0 [facility] Comment on above: Performed By: #### C BC ####[facility] Goakxsroud[address] [place], [place] [address]Dr. Andrea Garcia Hematocrit (Bld) [Volume fraction] 40.0 % Critically low 42.0-54.0 [facility] Comment on above: Performed By: #### C BC ####[facility] C[address]fw[address]ms[address] [place], [place] [address]Dr. Andrea Garcia Hemoglobin (Bld) [Mass/Vol] 13.4 g/dL Critically low 14.0-18.0 [facility] Comment on above: Performed By: #### C BC ####[facility] [address]xt[address]rcaeq[address] [place] [address]Dr. Andrea Garcia IG # 0.01 10e3/ul Normal 0.00-0.03 [facility] Comment on above: Performed By: #### C BC ####[facility] Yyvwgxyxy[address] [place] [address]DrWilder Kaylendahlia Garcia IG % 0.2 % Normal 0.0-0.5 [facility] Comment on above: Performed By: #### C BC ####[facility] K[address] [place], [place] [address]DrWilder Garcia LYMPH # 2.2 103/ul Normal 1.2-3.8 [facility] Comment on above: Performed By: #### C BC ####[facility] Xqw[address] [place], [place] [address]DrWilder Kaylendahlia Garcia Lymphocytes/100 WBC (Bld) 33.2 % Normal 20.5-60.0 [facility] Comment on above: Performed By: #### C BC ####[facility] [address] [place], [place] [address]DrWilder Kaylendahlia Garcia MANUAL DIFF REQ NO Normal [facility] Comment on above: Performed By: #### C BC ####[facility] Ypcowm[address] [place], [place] [address]DrWilder Andrea Jose MCH (RBC) [Entitic mass] 30.5 pg Normal 25.9-34.0 [facility] Comment on above: Performed By: #### C BC ####[facility] Z[address] [place], [place] [address]DrWilder Andrea Jose MCHC (RBC) [Mass/Vol] 33.5 g/dL Normal 29.9-35.2 [facility] Comment on above: Performed By: #### C BC ####[facility] [address] [place], [place] [address]DrWilder Andrea Jose MCV (RBC) [Entitic vol] 90.9 fL Normal 80.0-94.0 [facility] Comment on above: Performed By: #### C BC ####[facility] Brbbmlmbes[address] [place], [place] [address]Dr. Andrea Garcia MONO # 0.4 103/ul Normal 0.3-0.8 [facility] Comment on above: Performed By: #### C BC ####[facility] X[address]evyhrs[address] [place] [address]Dr. Andrea Garcia Monocytes/100 WBC (Bld) 6.0 % Normal 1.7-12.0 [facility] Comment on above: Performed By: #### C BC ####[facility] [address]duz[address] [place] [address]Dr. Andrea Garcia NEUT # 3.5 103/ul Normal 1.4-6.5 [facility] Comment on above: Performed By: #### C BC ####[facility] F[address]zakquloh[address] [place] [address]Dr. Andrea Garcia Neutrophils/100 WBC (Bld) 54.2 % Normal 43.0-75.0 [facility] Comment on above: Performed By: #### C BC ####[facility] Nhbazujxxx[address] [place], [place] [address]Dr. Andrea Garcia Platelet mean volume (Bld) [Entitic vol] 9.7 fL Normal 9.5-13.5 [facility] Comment on above: Performed By: #### C BC ####[facility] [address]af[address] [place] [address]Dr. Andrea Garcia PLT 225 103/ul Normal 150-450 [facility] Comment on above: Performed By: #### C BC ####[facility] Xerguspdsb[address]4 [place] [address]Dr. Andrea Garcia RBC 4.40 106/ul Critically low 4.70-6.10 [facility] Comment on above: Performed By: #### C BC ####[facility] [address] [place], [place] [address]Dr. Andrea Garcia WBC 6.5 103/ul Normal 4.0-11.0 [facility] Comment on above: Performed By: #### C BC ####[facility] [address] [place], [place] [address]Dr. Andrea Garcia CT ABD/PELV W CONon 05-29-[address] ABD/PELV W CON EXAM: CT [...] ADITYA OATES Date: 2023-01-10 07:41 Normal [facility] CULTURE BLOODon 01-10-2023 Microscopic examination of blood, culture Culture Observations: NO GROWTH AT 36-48 HOURS. FINAL TO FOLLOW. Normal [facility] Comment on above: Performed By: #### B LDCX2 ####[facility] Ehoykmskvr[address] [place] [id number] Garcia Microscopic examination of blood, culture Culture Observations: NO GROWTH AT 36-48 HOURS. FINAL TO FOLLOW. Normal [facility] Comment on above: Performed By: #### B LDCX1 ####[facility] [address] [place], [place] [address]UzWilder Garcia ER URINE PROFILEon 3 Bilirubin Ql (U) Negative Normal NEGATIVE [facility] Comment on above: Performed By: #### U MICRO, ERUR #### [facility] [address] [place] [address] [address] Andrea Garcia Clarity (U) CLEAR Normal CLEAR [facility] Comment on above: Performed By: #### U MICRO, ERUR #### [facility] [address] [place] [address] Dr. Andrea Garcia Color (U) LT. YELLOW Normal YELLOW [facility] Comment on above: Performed By: #### U MICRO, ERUR #### [facility] [address] [place] [address] [address] Andrea Garcia ERUAHD A micrscopic examina tion will be performed if indicated. Normal [facility] Comment on above: Performed By: #### U MICRO, ERUR #### [facility] [address] [place] [address] Dr. Andrea Garcia Glucose Ql (U) Negative Normal NEGATIVE [facility] Comment on above: Performed By: #### U MICRO, ERUR #### [facility] [address] [place] [address] [address] Andrea Garcia Hemoglobin Ql (U) TRACE-INTACT Abnormal NEGATIVE [facility] Comment on above: Performed By: #### U MICRO, ERUR #### [facility] [address] [place] [address] Dr. Andrea Garcia Ketones Ql (U) Negative Normal NEGATIVE [facility] Comment on above: Performed By: #### U MICRO, ERUR #### [facility] [address] [place] [address] [address] Andrea Garcia LEUKOCYTES Negative Normal NEGATIVE [facility] Comment on above: Performed By: #### U MICRO, ERUR #### [facility] [address] [place] [address] [address] Andrea Garcia Nitrite Ql (U) Negative Normal NEGATIVE [facility] Comment on above: Performed By: #### U MICRO, ERUR #### [facility] [address] [place] [address] Dr. Andrea Garcia pH (U) 5.5 [pH] Normal 5-9 [facility] Comment on above: Performed By: #### U MICRO, ERUR #### [facility] [address] [place] [address] [address] Andrea Garcia SPEC GRAVITY 1.015 Normal 1.005-<=1. 025 [facility] Comment on above: Performed By: #### U MICRO, ERUR #### [facility] [address] [place] [address] [address] Andrea Garcia UA PROTEIN Negative Normal NEGATIVE/ TRACE [facility] Comment on above: Performed By: #### U MICRO, ERUR #### [facility] [address] [place] [address] [address] Andrea Garcia UR MICRO IND INDICATED Normal [facility] Comment on above: Performed By: #### U MICRO, ERUR #### [facility] [address] [place] [address] [address] Andrea Garcia Urobilinogen Qn (U) 0.2 {Temo'U}/dL Normal 0.2 - 1. 0 [facility] Comment on above: Performed By: #### U MICRO, ERUR #### [facility] [address] [place] [address] [address] Andrea Garcia LACTATE/LACTIC ACIDon 2022 Lactate [Moles/Vol] 0.8 mmol/L Normal 0.4-2.0 [facility] Comment on above: Performed By: #### L ACT #### [facility] [address] [place] [address] Dr. Andrea Garcia Lactate [Moles/Vol] 0.9 mmol/L Normal 0.4-2.0 [facility] Comment on above: Performed By: #### L ACT #### [facility] [address] [place] [address] [address] Andrea Garcia LIPASEon 01-10-2023 Lipase [Catalytic activity/Vol] 71.0 U/L Critically low 73.0-393.0 [facility] Comment on above: Performed By: #### C MADM, CMP, DAMIEN, LIPA ####[facility] [address] [place] [address]Dr. Andrea Garcia PROF 14(COMP METB)on 023 Albumin [Mass/Vol] 3.2 g/dL Critically low 3.4-5.0 [facility] Comment on above: Performed By: #### C MADM, CMP, DAMIEN, LIPA ####[facility] [address] [place] [address]Dr. Andrea Garcia Albumin/Globulin [Mass ratio] 0.9 {ratio} Normal [facility] Comment on above: Performed By: #### C MADM, CMP, DAMIEN, LIPA ####[facility] [address] [place] [address]Dr. Andrea Garcia ALP [Catalytic activity/Vol] 68 U/L Normal 46-116 [facility] Comment on above: Performed By: #### C MADM, CMP, DAMIEN, LIPA ####[facility] [address]of[address]wr[address] [place] [address]Dr. Andrea Garcia ALT [Catalytic activity/Vol] 30 U/L Normal 16-63 [facility] Comment on above: Performed By: #### C MADM, CMP, DAMIEN, LIPA ####[facility] [address]mc[address] [place] [address]Dr. Andrea Garcia Anion gap [Moles/Vol] 14.2 mmol/L Normal [facility] Comment on above: Performed By: #### C MADM, CMP, DAMIEN, LIPA ####[facility] [address] [place] [address]Dr. Andrea Garcia AST [Catalytic activity/Vol] 18 U/L Normal 15-37 [facility] Comment on above: Performed By: #### C MADM, CMP, DAMIEN, LIPA ####[facility] [address]ib[address] [place] [address]Dr. Andrea Garcia Bilirubin [Mass/Vol] 0.5 mg/dL Normal 0.2-1.0 [facility] Comment on above: Performed By: #### C MADM, CMP, DAMIEN, LIPA ####[facility] Ifuzxbqm[address] [place] [address]Dr. Andrea Garcia Calcium [Mass/Vol] 8.5 mg/dL Normal 8.5-10.1 [facility] Comment on above: Performed By: #### C MADM, CMP, DAMIEN, LIPA ####[facility] [address]wo[address] [place] [address]Dr. Andrea Garcia Chloride [Moles/Vol] 108 mmol/L Critically high 98-107 [facility] Comment on above: Performed By: #### C MADM, CMP, DAMIEN, LIPA ####[facility] Btxirslkgw[address] [place] [address]Dr. Andrea Garcia CO2 [Moles/Vol] 22.1 mmol/L Normal 21.0-32.0 [facility] Comment on above: Performed By: #### C MADM, CMP, DAMIEN, LIPA ####[facility] [address]mgpowtj[address] [place] [address]Dr. Andrea Garcia Creatinine [Mass/Vol] 1.06 mg/dL Normal 0.70-1.30 [facility] Comment on above: Performed By: #### C MADM, CMP, DAMIEN, LIPA ####[facility] [address] [place] [address]Dr. Andrea Garcia EGFR-AF TUNISIAN >60 Normal >=60 [facility] Comment on above: Performed By: #### C MADM, CMP, DAMIEN, LIPA ####[facility] Axiafbazmq[address] [place] [address]Dr. Andrea Garcia EGFR-NON AF TUNISIAN >60 Normal >=60 [facility] Comment on above: Performed By: #### C MADM, CMP, DAMIEN, LIPA ####[facility] Z[address]jarivyve[address] [place] [address]Dr. Andrea Garcia Globulin (S) [Mass/Vol] 3.5 g/dL Normal [facility] Comment on above: Performed By: #### C MADM, CMP, DAMIEN, LIPA ####[facility] Qonvmfykuo[address] [place] [address]Dr. Andrea Garcia Glucose [Mass/Vol] 110 mg/dL Critically high 74-106 [facility] Comment on above: Performed By: #### C MADM, CMP, DAMIEN, LIPA ####[facility] [address]uyor[address] [place] [address]Dr. Andrea Garcia Potassium [Moles/Vol] 4.3 mmol/L Normal 3.5-5.1 [facility] Comment on above: Performed By: #### C MADM, CMP, DAMIEN, LIPA ####[facility] X[address]xl[address] [place] [address]Dr. Andrea Garcia Protein [Mass/Vol] 6.7 g/dL Normal 6.4-8.2 [facility] Comment on above: Performed By: #### C MADM, CMP, DAMIEN, LIPA ####[facility] [address]gz[address] [place] [address]Dr. Andrea Garcia Sodium [Moles/Vol] 140 mmol/L Normal 136-145 [facility] Comment on above: Performed By: #### C MADM, CMP, DAMIEN, LIPA ####[facility] J[address]utllae[address] [place] [address]Dr. Andrea Garcia Urea nitrogen [Mass/Vol] 20.0 mg/dL Critically high 7.0-18.0 [facility] Comment on above: Performed By: #### C MADM, CMP, DAMIEN, LIPA ####[facility] N[address]qftbtrf[address] [place] [address]Dr. Andrea Garcia Urea nitrogen/Creatinine [Mass ratio] 18.9 mg/mg Normal [facility] Comment on above: Performed By: #### C MADM, CMP, DAMIEN, LIPA ####[facility] [address]jvet[address] [place] [address]Dr. Andrea Garcia URINE MICROSCOPIC ONLYon BACTERIA NONE SEEN Normal NONE SEEN [facility] Comment on above: Performed By: #### U MICRO, ERUR #### [facility] [address] [place] [address] Dr. Andrea Garcia Bacteria identified Cx Nom (U) NOT INDICATED Normal [facility] Comment on above: Performed By: #### U MICRO, ERUR #### [facility] [address] [place] [address] Dr. Andrea Garcia CAST NONE SEEN Normal NONE SEEN [facility] Comment on above: Performed By: #### U MICRO, ERUR #### [facility] [address] [place] [address] Dr. Andrea Garcia Crystals LM Nom (Urine sed) NONE SEEN Normal NONE SEEN [facility] Comment on above: Performed By: #### U MICRO, ERUR #### [facility] [address] [place] [address] Dr. Andrea Garcia Epithelial cells LM Ql (Urine sed) NONE SEEN Normal NONE SEEN /RARE [facility] Comment on above: Performed By: #### U MICRO, ERUR #### [facility] [address] [place] [address] Dr. Andrea Garcia MUCOUS NONE SEEN Normal NONE SEEN [facility] Comment on above: Performed By: #### U MICRO, ERUR #### [facility] [address] [place] [address] Dr. Andrea Garcia RBC 0-2 Normal 0-2 [facility] Comment on above: Performed By: #### U MICRO, ERUR #### [facility] [address] [place] [address] Dr. Andrea Garcia WBC 0-2 Abnormal NONE SEEN [facility] Comment on above: Performed By: #### U MICRO, ERUR #### [facility] [address] [place] [address] Dr. Andrea Garcia XR CHEST 1 Von 01-10-2023 XR CHEST 1 V Exam: Radiographs: X R CHEST 1 V Reason for exam: Nausea/vomiting Comparison: None IMPRESSION: Negative chest. Electronically authenticated by: ADITYA OATES Date: 2023-01-10 07:42 Normal [facility] MRI Soft Tissue Neck w/o [...] by KENN RAPHAEL on 10/06/2021 1605 Normal [facility] CT Soft Tissue Neck w/ Contr ast*on [...] by Que Greene on 09/29/2021 1013 Normal [facility] Nurse Vital Signs Date Time Vital Sign Value Performing Clinician Ethan liu 09-19-2024 08:42-0500 Body mass index (BMI) [Ratio] 24.11 kg/m2 Christopher Reno DO Work Phone: [facility] 09-19-2024 08:42-0500 Body weight 85.19 kg Christopher Reno DO Work Phone: [facility] 09-19-2024 08:42-0500 Diastolic blood pressure 76 mm[Hg] Christopher Reno DO Work Phone: [facility] 09-19-2024 08:42-0500 Heart rate 78 /min Localminter Reno DO Work Phone: [facility] 09-19-2024 08:42-0500 SaO2% (BldA) [Mass fraction] 96 % Localminter Foldees DO Work Phone: [facility] 09-19-2024 08:42-0500 Systolic blood pressure 142 mm[Hg] Localminter Foldees DO Work Phone: [facility] 01-09-2024 19:01-0400 Diastolic blood pressure 99 mm[Hg] MD Rodriguez Godwin Work Phone: [facility] 01-09-2024 19:01-0400 Heart rate 84 /min MD Rodriguez Godwin Work Phone: [facility] 01-09-2024 19:01-0400 Respiratory rate 18 /min MD Rodriguez Godwin Work Phone: [facility] 01-09-2024 19:01-0400 SaO2% (BldA) [Mass fraction] 97 % MD Rodriguez Godwin Work Phone: [facility] 01-09-2024 19:01-0400 Systolic blood pressure 190 mm[Hg] MD Rodriguez Godwin Work Phone: [facility] 01-09-2024 14:29-0400 Body height 187.96 cm MD Rodriguez Godwin Work Phone: [facility] 01-09-2024 14:29-0400 Body temperature 98.3 [degF] MD Rodriguez Godwin Work Phone: [facility] 01-09-2024 14:29-0400 Body weight 83 kg MD Rodriguez Godwin Work Phone: [facility] 12-18-2023 13:10-0400 Heart rate 85 /min MD Rodriguez Godwin Work Phone: [facility] 12-18-2023 13:09-0400 Body temperature 97.9 [degF] MD Rodriguez Godwin Work Phone: [facility] 12-18-2023 13:09-0400 Diastolic blood pressure 77 mm[Hg] MD Rodriguez Godwin Work Phone: [facility] 12-18-2023 13:09-0400 Respiratory rate 18 /min MD Rodriguez Godwin Work Phone: [facility] 12-18-2023 13:09-0400 SaO2% (BldA) [Mass fraction] 97 % MD Rodriguez Godwin Work Phone: [facility] 12-18-2023 13:09-0400 Systolic blood pressure 161 mm[Hg] MD Rodriguez Godwin Work Phone: [facility] 12-18-2023 13:06-0400 Body height 186.69 cm MD Rodriguez Godwin Work Phone: [facility] 12-18-2023 13:06-0400 Body weight 81 kg MD Rodriguez Godwin Work Phone: [facility] 03-03-2023 13:30-0400 Diastolic blood pressure 100 mm[Hg] MD Rodriguez Godwin Work Phone: [facility] 03-03-2023 13:30-0400 Heart rate 59 /min MD Rodriguez Godwin Work Phone: [facility] 03-03-2023 13:30-0400 Respiratory rate 18 /min MD Rodriguez Godwin Work Phone: [facility] 03-03-2023 13:30-0400 SaO2% (BldA) [Mass fraction] 99 % MD Rodriguez Godwin Work Phone: [facility] 03-03-2023 13:30-0400 Systolic blood pressure 160 mm[Hg] MD Rodriguez Godwin Work Phone: [facility] 03-03-2023 11:36-0400 Body height 175.26 cm MD Rodriguez Godwin Work Phone: [facility] 03-03-2023 11:36-0400 Body temperature 98 [degF] MD Rodriguez Godwin Work Phone: [facility] 03-03-2023 11:36-0400 Body weight 84.3 kg MD Rodriguez Godwin Work Phone: [facility] Encounters Encounter Date Encounter Type Care Provider Facility Start: 01-22-2025 End: 01-22-2025 Lab Drop off Frankie Bueno GUNJAN [facility] Start: 01-22-2025 End: 01-22-2025 ambulatory Frankie HOLLINS Facility:[facility] Start: 01-22-2025 End: 01-22-2025 Patient encounter procedure Frankie Bueno GUNJAN [facility] [place] Start: 01-15-2025 ambulatory Jaun BRADSHAW Facility:[facility] Start: 01-15-2025 End: 01-15-2025 ambulatory [facility] Start: 12-17-2024 End: 12-17-2024 ambulatory Jaun BRADSHAW Facility:CD:[id number] Start: 12-11-2024 End: 12-11-2024 ambulatory Jaun BRADSHAW Facility:[facility] Start: 11-27-2024 ambulatory Jaun BRADSHAW Facility:[facility] Start: 11-14-2024 End: 11-14-2024 ambulatory [facility] Start: 11-05-2024 End: 11-05-2024 ambulatory MARIBEL PINEDAETT Not Available Start: 10-02-2024 End: 10-02-2024 ambulatory CHRISTOPHER RENO Not Available Start: 09-24-2024 End: 09-24-2024 ambulatory [facility] Start: 09-19-2024 End: 09-19-2024 Bamboo flowsheet Christopher Reno DO Work Phone: [facility] Start: 09-19-2024 End: 09-19-2024 Bamboo flowsheet Christopher Reno DO Work Phone: [facility] MCLEANEV[facility] Start: 09-19-2024 End: 09-19-2024 Office outpatient new 45 minutes Christopher Reno DO Work Phone: [facility] Comment on above: Loss of consciousnes s (CMS/HCC) (Primary Dx) Start: 09-19-2024 End: 09-19-2024 ambulatory BLASSILVANO BOJORQUEZ Not Available Start: 08-09-2024 End: 08-09-2024 Emergency department patient visit SHIV Bueno [facility] Start: 04-06-2024 End: 04-06-2024 ambulatory [facility] Start: 01-09-2024 End: 01-09-2024 Emergency department patient visit Rodriguez Godwin Facility:[facility] Start: 01-09-2024 End: 01-09-2024 Emergency department patient visit MD Rodriguez Godwin Work Phone: [facility] Work Phone: Start: 12-18-2023 End: 12-18-2023 Emergency department patient visit Marie Garrison Facility:[facility] Start: 12-18-2023 End: 12-18-2023 Emergency department patient visit MD Rodriguez Godwin Work Phone: [facility] Work Phone: Start: 03-03-2023 End: 03-03-2023 Emergency department patient visit Ramiro Cortez Facility:[facility] Start: 03-03-2023 End: 03-03-2023 Emergency department patient visit MD Rodriguez Godwin Work Phone: [facility] Work Phone: Start: 01-10-2023 End: 01-11-2023 Evaluation and management of inpatient DR DOCTOR CROCKER Facility:[facility]1 Procedures Date Procedure Procedure Detail Performing Clinician Start: 01-09-2024 CT angiography of thorax MD Rodriguez Godwin Work Phone: Start: 01-09-2024 Plain chest X-ray MD Valdivia Work Phone: Start: 03-03-2023 Plain chest X-ray MD Valdivia Work Phone: Appendectomy Frankie HOLLINS Cataract (disorder) Frankie NILL Colonoscopy Frankie NILTerrell Tonsillectomy Frankie NILTerrell Plan of Treatment Date Care Activity Detail Author Start: 05-27-2025 ambulatory Ambulatory Facility:[facility] Start: 05-20-2025 ambulatory Ambulatory Facility:[facility] Start: 11-05-2024 End: 11-05-2024 Patient encounter procedure 11/05/2024 9:00 AM EDT Office Visit [facility] SANDOVAL [address] [place] [address] [phone] Maribel Bojorquez DO [address] [place] [id number] [facility] LYNCHUE Start: 09-20-2024 End: 09-20-2024 Clinical Support 09/20/2024 8:45 AM EST Clinical Support MONA SANDOVAL [address] [place] [address] [phone] MONA LYNCHUE Start: 09-19-2024 End: 09-19-2025 EEG, Including Recording Awake or Asleep EEG, Including Recording Awake or Asleep Neurology Routine Loss of consciousness (CMS/HCC) Expected: 09/19/2024 (Approximate), Expires: 09/19/2025 [facility] Work Phone: Comment on above: Expected: 09/19/2024 (Approximate), Expires: 09/19/2025 Start: 09-19-2024 End: 09-19-2024 Patient encounter procedure 09/19/2024 9:00 AM EST Office Visit MONA MCLEANEVUE [address] [place] [address] Maribel Bojorquez DO [address] [place] [address] Arrived MONA SANDOVAL Comment on above: Arrived Start: 04-15-2024 Influenza vaccination Influenza Vacc ine (#1) [facility] Start: 12-18-2023 [facility] Start: 2014 Pneumococcal Vaccine : 65+ Years (1 of 1 - PCV) Pneumococcal Vaccine: 65+ Years (1 of 1 - PCV) [facility] Start: 1950 Screening for malign ant neoplasm of colon [facility] Patient Education [facility] Work Phone: Patient referral [facility] Work Phone: Immunizations Immunization Date Immunization Notes Care Provider Alba daly 10-12-2023 hepatitis B vaccine, adult dosage Frankie HOLLINS [facility] 09-21-2023 influenza virus vaccine, unspecified formulation Maribel Bojorquez DO Work Phone: [facility] 09-14-2023 tetanus toxoid, reduced diphtheria toxoid, and acellular pertussis vaccine, adsorbed Frankie HOLLINS [facility] 09-10-2020 SARS-CoV-2 (COVID-19 ) mRNA-1275 vaccine Frankie HOLLINS [facility] 08-13-2020 SARS-CoV-2 (COVID-19 ) mRNA-1273 vaccine Frankie CURRIETerrell [facility] [place] Payers Date Payer Category Payer Medicare [id number] 2023 Medicare (Managed Care) RUDY Billingsley [employer] ADVANTAGE Member Subscriber Plan / Payer (Effective 2023-Present) Name: Jeb Riddle Relation to Subscriber: Self Name: Jeb Riddle Payer ID: [id number] (NAIC) Type: Not on file Address: [place] [id number] 2023 Self-pay [id number] 2022 Unknown [id number] 1959 Medicare [id number] 1950 Unknown [id number] 2.840.1.097088.3.579. 2.593 1949 Unknown [id number] 2.840.1.388162.3.579. 2.1286 1949 Unknown [id number] .840.1.101170.3.579. 2.1259 1949 Unknown [id number] 2.840.1.342293.3.579. 2.1259 1949 Unknown [id number] .16.840.1.122535.3.579. 2.1259 1949 Unknown [id number] 2.16.840.1.588757.3.579. 2.727 1949 Unknown [id number] 2.16.840.1.439945.3.579. 2.727 1949 Unknown [id number] 2.16.840.1.963370.3.579. 2.727 1949 Unknown [id number] 2.16.840.1.013436.3.579. 2.727 1949 Unknown [id number] 2.16.840.1.564757.3.579. 2.727 1949 Unknown [id number] 2.16.840.1.586637.3.579. 2.727 Unknown [id number] 2.16.840.1.649588.3.579. 2.531 Unknown [id number] 2.16.840.1.413068.3.579. 2.531 Unknown [id number] 2.16.840.1.379218.3.579. 2.531 Social History Date Type Detail Facility Start: 03-03-2023 End: 01-09-2024 Tobacco smoking status NEIS Ex-smoker (finding) [facility] Start: 1950 Sex Assigned At Male F [facility] Tobacco smoking stat [facility] Tobacco smoking consumption unknown [facility] Start: 1950 Sex assigned at Not on file [facility] Gender identity Not on file [facility] Start: 01-22-2025 Tobacco smoking status Never s moked tobacco (finding) [facility] Tobacco smoking status Never [place] [facility] Sexual Orientation [facility] [place] Start: 11-26-2009 Sex Male (finding) [facility] Clinical Notes 04-06-2024 to 01-22-2025 Maribel Bojorquez, DO - 09/19/2024 9:00 AM EST Note Date & Type Note Facility 01-22-2025 Note General Surgery Offi ce/Clinic Note Chief Complaint consultation for skin lesion HPI Staff 74 year old male presents on self referral consultation for skin lesion on chest. Reports dark pigmented lesion to upper chest for several years. Denies change in size. Reports this has become darker over time. Denies soreness or tenderness. Denies bleeding, drainage or itching. History of Present Illness 74 yo male with h/o CAD, Crohn's disease, htn, PE, SVT, BPH, nephrolithiasis, anxiety, presents for evaluation of skin lesion on chest wall; left chest wall with raised skin lesion, present for over 10 years, but changed in pigmentation, darker in center, concerned about it; no personal h/o skin cancer, no bleeding or ulceration; no asa or NSAID use; no tobacco use. Review of Systems PHQ Score Initial Depression Screen Score: 0 SCORE ROS - Provider Constitutional: no fever, no sweats, no weight loss. Eyes: no glasses, no blurred vision, no visual loss. ENMT: no dentures, no hoarseness, no swallowing difficulties, no hearing loss, no ear infection(s), no nose bleeds. Cardiovascular: normal blood pressure, no chest pain, regular heartbeat, no heart murmur. Respiratory: no shortness of breath, no cough, no asthma, no wheezing. Gastrointestinal: no nausea, no vomiting, no diarrhea, no constipation, no blood in stool, no change in bowel habits, no abdominal pain, no hepatitis. Genitourinary: no kidney stones, no urine infection, no dysuria. Musculoskeletal: no pain, no weakness. Skin: no changing moles, no rash, no skin lumps. Neurologic: no seizures, no epilepsy, no headache. Psychiatric: no emotional or psychiatric problem. Heme/Lymph: no bleeding problems, no anemia, no blood clots, no transfusions. Allergy/Immunologic: no swollen lymph nodes/glands, no IV drug abuse. Other: Additional ROS info: Except as noted in the above Review of Systems and in the History of Present Illness, all other systems have been reviewed and are negative or noncontributory. Physical Exam Vitals & Measurements HR: 78(Peripheral) RR: 16 BP: 168/80 HT: 74 in HT: 187 cm WT: 182.322 lb WT: 82.7 kg BMI: 23.65 HEENT: normal conjunctiva, sclera clear, no scleral icterus, EOM intact, PERRLA, oral mucosa moist without lesions. Neck: trachea midline, no mass, symmetric, no thyromegaly or nodules, no adenopathy Musculoskeletal: normal gait, digits and nails without infection, nodes, cyanosis, clubbing. Skin: no rashes, no lesions, no ulcers, left mid chest with 1 cm irregular raised lesion with dark center, no ulceration or scab. Psychiatric/Neuro: oriented to time, place, person, judgement normal, affect appropriate for age, insight intact, no focal deficits. Tests: , review of old records completed , Discussed surgical options, risks, and possible complications with patient. Procedure patient brought to the procedure room, placed in supine position, area prepped and draped in sterile fashion; anesthetized with 1 % lidocaine, 3 ml; lesion excised down to dermis, hemostasis achieved with cautery; tolerated well; ebl < 3 ml; sterile dressing applied. Assessment/Plan 1. Inflamed seborrheic keratosis (L82.0: Inflamed seborrheic keratosis) excised under local anesthesia, base cauterized; tolerated well; keep area clean and dry, no ointments; will call patient with pathology results, call sooner if problems/questions. Follow-up No qualifying data available Problem List/Past Medical History Ongoing Anxiety BPH with obstruction/lower urinary tract symptoms Cardiomegaly Congestive heart failure Crohn's disease Elevated PSA Heart disease History of nephrolithiasis Hypertension Incomplete bladder emptying Inflamed seborrheic keratosis NSTEMI (non-ST elevated myocardial infarction) Pulmonary embolism Renal cyst Small bowel obstruction Supraventricular tachycardia Tremor Historical No qualifying data Procedure/Surgical History Appendectomy, Cataract, Colonoscopy, Tonsillectomy. Medications cloNIDine 0.1 mg tab, Oral, BID Keflex 500 mg Cap, 500 mg= 1 cap(s), Oral, As Directed lisinopril, Oral, Daily lorazepam mesalamine 400 mg oral delayed release capsule, Oral, BID multivitamin tamsulosin 0.4 mg Cap, 0.4 mg= 1 cap(s), Oral, Daily, 11 refills Allergies No Known Allergies No Known Medication Allergies Social History Alcohol - Denies Alcohol Use, 01/22/2025 Substance Abuse - Denies Substance Abuse, 01/22/2025 Tobacco Never (less than 100 in lifetime) Tobacco Use:. Never Smokeless Tobacco Use:., 01/22/2025 Family History Diabetes: Mother and Father. Heart disease: Mother and Father. Hyperlipidemia: Father. Hypertension: Mother and Father. Immunizations Vaccine Date Status hepatitis B adult vaccine 10/12/2023 Recorded influenza virus vaccine, inactivated 09/21/2023 Recorded diphtheria/pertussis, acel/tetanus adult 09/14/2023 Recorded SARS-CoV-2 (COVID-19) mRNA-1273 vaccine 09/10/2020 R (more content not included)... [facility] Comment on above: Result Comment: Elec tronically Signed By: GUNJAN ADAN, Frankie Cristina\Date and Time Signed: 01/22/25 09:49 EDT 01-15-2025 Note [facility] Consult Note Reason for visit: NSVT Patient is here today for a follow up office visit per Dr. Forrester for SVT. Patient states he feels tired [...] of breath. Neurological: Positive for dizziness. HPI: Jeb Riddle is a 74 y.o. year [...] Insecurity: No Food Insecurity (08/09/2024) Received from [facility] Hunger Screening Within the past 12 months [...] on file Intimate Partner Violence: Unknown (10/07/2023) [place] Safety & Environment Fear of Current or [...] 01/15/2025) 90 tablet 3 topiramate 50 mg tabl (more content not included)... [facility] 12-11-2024 Note Patient Education Oncology Prostate Cancer Screening Prostate cancer screening is testing that is done to check for the presence of prostate cancer in men. The prostate gland is a walnut-sized gland that is located below the bladder and in front of the rectum in males. The function of the prostate is to add fluid to semen during ejaculation. Prostate cancer is one of the most common types of cancer in men. Who should have prostate cancer screening? Screening recommendations vary based on age and other risk factors, as well as between the professional organizations who make the recommendations. In general, screening is recommended if: ??? You are age 50 to 70 and have an average risk for prostate cancer. You should talk with your health care provider about your need for screening and how often screening should be done. Because most prostate cancers are slow growing and will not cause , screening in this age group is generally reserved for men who have a 10- to 15-year life expectancy. ??? You are younger than age 50, and you have these risk factors: ? Having a father, brother, or uncle who has been diagnosed with prostate cancer. The risk is higher if your family member's cancer occurred at an early age or if you have multiple family members with prostate cancer at an early age. ? Being a male who is Black or is of Dano or sub-Saharan descent. In general, screening is not recommended if: ??? You are younger than age 40. ??? You are between the ages of 40 and 49 and you have no risk factors. ??? You are 70 years of age or older. At this age, the risks that screening can cause are greater than the benefits that it may provide. If you are at high risk for prostate cancer, your health care provider may recommend that you have screenings more often or that you start screening at a younger age. How is screening for prostate cancer done? The recommended prostate cancer screening test is a blood test called the prostate-specific antigen (PSA) test. PSA is a protein that is made in the prostate. As you age, your prostate naturally produces more PSA. Abnormally high PSA levels may be caused by: ??? Prostate cancer. ??? An enlarged prostate that is not caused by cancer (benign prostatic hyperplasia, or BPH). This condition is very common in older men. ??? A prostate gland infection (prostatitis) or urinary tract infection. ??? Certain medicines such as male hormones (like testosterone) or other medicines that raise testosterone levels. A rectal exam may be done as part of prostate cancer screening to help provide information about the size of your prostate gland. When a rectal exam is performed, it should be done after the PSA level is drawn to avoid any effect on the results. Depending on the PSA results, you may need more tests, such as: ??? A physical exam to check the size of your prostate gland, if not done as part of screening. ??? Blood and imaging tests. ??? A procedure to remove tissue samples from your prostate gland for testing (biopsy). This is the only way to know for certain if you have prostate cancer. What are the benefits of prostate cancer screening? Screening can help to identify cancer at an early stage, before symptoms start and when the cancer can be treated more easily. ??? There is a small chance that screening may lower your risk of dying from prostate cancer. The chance is small because prostate cancer is a slow-growing cancer, and most men with prostate cancer from a different cause. What are the risks of prostate cancer screening? The main risk of prostate cancer screening is diagnosing and treating prostate cancer that would never have caused any symptoms or problems. This is called overdiagnosisand overtreatment. PSA screening cannot tell you if your PSA is high due to cancer or a different cause. A prostate biopsy is the only procedure to diagnose prostate cancer. Even the results of a biopsy may not tell you if your cancer needs to be treated. Slow-growing prostate cancer may not need any treatment other than monitoring, so diagnosing and treating it may cause unnecessary stress or other side effects. Questions to ask your health care provider ??? When should I start prostate cancer screening? What is my risk for prostate cancer? How often do I need screening? What type of screening tests do I need? How do I get my test results? What do my results mean? Do I need treatment? Where to find more information ??? The [place] [employer]: www.cancer.org ??? [place] [employer]: www.auanet.org Contact a health care provider if: ??? You have difficulty urinating. ??? You have pain when you urinate or ejaculate. ??? You have blood in your urine or semen. ??? You have pain in your back or in the area of your prostate. Summary ??? Prostate cancer is a common type of cancer in men. The prostate gland (more content not included)... [facility] 11-14-2024 Note [place] [facility] Subjective Jeb Riddle is a [...] He was admitted to the hospital at [facility] and was started on anticoagulation therapy. I saw him in follow-up on 04/06/2024 and at that time he was maintained on anticoagulation therapy with Eliquis and aspirin had been stopped. I checked a hypercoagulable profile testing and this was negative. I had recommended screening for an underlying cancer which was to be discussed with his PCP Dr. Rodriguez Godwin. On 08/31/2024 he was admitted to the [facility] with small bowel obstruction secondary to [...] evaluated in the emergency room at the [facility] on 11/02/2024 because of episode of near syncope while having bowel movement. Troponin was negative twice, ECG showed sinus rhythm, presentation was suspicious of vasovagal attack he was given intravenous hydration and discharged from the emergency room. Today 11/14/2024 he was evaluated in the emergency room at the [facility] because of dizziness after recent increase [...] Rate and Rhythm: (more content not included)... [facility] 09-24-2024 Note [place] [facility] Subjective Jeb Riddle is a 73 y.o. year old male patient here for follow up H bowel obstruction and uncontrolled hypertension. He is [...] He was admitted to the hospital at [facility] and was started on anticoagulation therapy. I saw him in follow-up on 04/06/2024 and at that time he was maintained on anticoagulation therapy with Eliquis and aspirin had been stopped. I checked a hypercoagulable profile testing and this was negative. I had recommended screening for an underlying cancer which was to be discussed with his PCP Dr. Rodriguez Godwin. On 08/31/2024 he was admitted to the [facility] with small bowel obstruction secondary to [...] mononitrate ER (Imdu (more content not included)... 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 He had taken a Seroquel the night [...] 2 years. He lost his job in [employer] and his house and has had issues [...] , wrist extensors , wrist flexor , paint striping machine operator strength 5/5. LUE Strength deltoid , biceps , triceps , wrist extensors , wrist flexor , paint striping machine operator strength 5/5. RLE Strength illopsoas, quadriceps, tibialis [...] reflex 2+ . Reese's sign negative. Coordination: Iummgg-zf-zyiz testing and rapid alternating movements are normal Gait: Normal Review and summary of old records: CT of the brain without contrast on 08/09/2024 with comparison to 07/14/2022: No acute intracranial pathology I have reviewed notations from [place] emergency department where this 73-year-old patient presented [...] orders for this visit: Loss of consciousness (CMS/[facility]) It is my impression that [...] states he had a recent MRI at [facility] that was also unremarkable. He has [...] and return instructions documented in this encounter [facility] 04-06-2024 Note [place] [facility] Subjective Jeb Riddle is a 73 y.o. year old male patient here for a follow up echo from January, he was amitted to [facility], for chest pain a couple weeks ago and had another echo. He had a lipid panel yesterday. At last appointment his statin was changed. 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 He still rides his bike to [employer] everyday, still active. Patient Active Problem [...] He was admitted to the hospital at [facility] and was started on anticoagulation [...] metoprolol succinate XL (more content not included)... [facility] Evaluation + Plan note Future Appointments Appointment Date:05/20/2025 09:00:00 AM Scheduled Provider: Location:[facility] Appointment Type:URO Nurse Visit Appointment Date:05/27/2025 08:45:00 AM Scheduled Provider:Jaun BRADSHAW MD Location:[facility] Appointment Type:URO Office Visit [facility] Evaluation note No assessment inform ation available [facility] Work Phone: Evaluation note Diagnosis Loss of consciousness (CMS/HCC)- Primary Other alteration of consciousness documented [facility] N[facility] No data available for this section [facility] Hospital Discharge instructions Additional Instructions Continue Pepcid once or twice a day as needed [place] diet Follow-up with your family doctor for recheck Return to the ER for worsening pain shortness of breath fever or any other concerns[facility] Work Phone: Hospital Discharge instructions No data available for this section [facility] General [facility] [place] Progress note No data available for this section [facility] General [facility] [place] Reason for visit Narrative* Consultation (Routine) - Closed Specialty Diagnoses / Procedures Referred By Contac t Referred To Contact Neurology Diagnoses Unspecified convulsions (CMS/HCC) Syncope and collapse Procedures [place] OFFICE/OUTPATIENT NEW LOW MDM 30 MINUTES Rodriguez Godwin MD [address] [place] [address] Phone: tel:[phone] fax: Maribel Bojorquez DO [address] [place] [address] Phone: tel: fax: Referral ID Status Reason Start Date Expiration Date V isits Requested Visits Authorized [id number] Closed Consult and Treat 08/17/2024 02/13/2025 1 [...] section and content) DATE CREATED AUTHOR 10/07/2021 [facility] dical Specialist DATE CREATED AUTHOR AUTHOR'S ORGANIZ ATION 01/21/2023 [facility]ital DATE CREATED AUTHOR AUTHOR'S ORGANIZ ATION 01/09/2024 [facility] DATE CREATED AUTHOR AUTHOR'S ORGANIZ ATION 08/10/2024 [facility] DATE CREATED AUTHOR AUTHOR'S ORGANIZ ATION 11/05/2024 [facility] Specialists EPIC DATE CREATED AUTHOR AUTHOR'S ORGANIZ ATION 01/27/2025 [facility] DATE CREATED AUTHOR AUTHOR'S ORGANIZ ATION 01/27/2025 [facility] DATE CREATED AUTHOR AUTHOR'S ORGANIZ ATION 01/28/2025 [facility] Care Teams (unrecognized sec tion and content) [...] may be documented in an alternate section No data available for this section No data available for this section FOR RECORDS PERTAINING TO PATIENTS WHO [...] BE BASED ON THE PRIMARY CLINICAL RECORDS. [employer] [facility]. provides no warranty or guarantee of the accuracy or completeness of information in this document.
== END 2025-01-28 09:01 | disposition home or self-care (01) ==
LOC: SLEEP 01-30 07:39
PROVIDERS: Family Provider Family Medicine; PCP Internal Medicine Cardiovascular Disease; Visit Provider Internal Medicine Cardiovascular Disease
DX: G47.33 Obstructive sleep apnea (adult) (pediatric) (principal)
CPT/HCPCS: 95806

== ENCOUNTER 2025-03-21 16:43 | Outpatient (OUT) | payer MEDICARE, SELFPAY ==
--- OUTSIDE RECORDS SUMMARY | 2023-11-01 07:15 | XMS_ITS | Continuity of Care Document ---
Author Organization [facility] Address [address] [place] [address] Phone Care Team Providers Care Construction Trades Teacher Name Role Phone Yared Ashley Unavailable Unavailable Procedures Procedure Date COVID-19 Antigen Test COVID-19 Antigen Test IMMUNIZATION ADMIN HEP B VACCINE, ADULT, IM IMMUNIZATION ADMIN FLU VACC PRSV FREE INC ANTIG ROUTINE VENIPUNCTURE Covid-19 Vaccine Administration 024 Covid-19 Vaccine, 50 Mcg Moderna 12y Plu s IMMUNIZATION ADMIN TDAP VACCINE >7 IM Advance Directives Directive Yes / No Effective Date File Name No Information Encounters Encounter Description Practice Location Reason(s) For Visit Diagnoses Date Provider Providers Copied on Encounter [facility], [address] [place] [address], [id number], [place] tel:[phone] [facility] COVID-19 (chief complaint) Encounter for screening for COVID-19 Rubén Wiggins. [address], [place], [id number], [place]. tel:[phone] [facility], [address], [place], [id number], [place] tel:[phone] [facility] No Information Rubén Wiggins. [address], [place], [id number], [place]. tel:[phone] [facility], [address], [place], [id number], [place] tel:[phone] [facility] No Information Rubén Wiggins. [address], [place], [id number], [place]. tel:[phone] [facility], [address], [place], [id number], [place] tel:[phone] [facility] lab darw (chief complaint) Encounter for screening for respiratory tuberculosis Rubén Wiggins. [address], [place], [id number], [place]. tel:[phone] Family History Family Member Type Diagnosis Age At Onset No Information Immunizations Vaccine Date Status Comments Hep B, adult, 3 dose administered Source: New Immunization Record Influenza, quadrivalent, hig h dose, injectable, split virus, preservative free, 0.7 mL dose, Fluzone High-Dose Quad 6828-5510 administered Source: New Immuniza tion Record Spikevax 12y+ administered Source: New Im munization Record Tdap (Boostrix) administered Source: New Immunization Record Payers Payer name Insurance type Covered constitution party ID Authoriza tion(s) Self Pay Cap [id number] Self Pay Cap 09 [id number] Self Pay Cap [id number] Social History Type Description Quantity Date Captured Comments Alcohol Use Details Unknown Caffeine Use Details Unknown Tobacco Use Status No Information Smoking Status No Information Sex Male Sexual Orientation Straight or heterosexual Gender Identity Male Chief Complaint And Reason For Visit From encounter dated '11/01/2023 11:15'. COVID-19 (chief complaint). Description: Screening for COVID-19 negative. Patient notified.//TEJA [place] Reason For Referral Reason For Referral No Information Plan Of Treatment Date Type Action Status Goal Tdap due Goal CT-Colonography. Due on due Goal Lipid panel. Due on due Goal Unhealthy drug use screening . Due on due Goal FIT. Due on due Goal Influenza vaccine. Due on due Goal Colonoscopy. Due on due Goal FOBT. Due on due Goal Hepatitis C screening. Due o n due Goal PRAPARE ASSESSMENT. Due on due Goal FIT-DNA. Due on due Goal Zoster vaccine (). Due on due Goal Depression screening. Due on due Goal Tdap Vaccine. Due on 2033 due Goal Hep A. Due on du e Goal Colonoscopy. Due on due Goal Hepatitis C screening. Due o n due Goal FIT. Due on due Goal Unhealthy drug use screening . Due on due Goal Influenza vaccine. Due on due Goal Tdap Vaccine. Due on 2033 due Goal Lipid panel. Due on due Goal Tdap due Goal FIT-DNA. Due on due Goal Zoster vaccine (). Due on due Goal PRAPARE ASSESSMENT. Due on due Goal FOBT. Due on due Goal CT-Colonography. Due on due Goal Depression screening. Due on due Goal Unhealthy drug use screening . Due on due Goal Lipid panel. Due on due Goal CT-Colonography. Due on due Goal Influenza vaccine. Due on due Goal Tdap due Goal Hepatitis C screening. Due o n due Goal FIT. Due on due Goal Depression screening. Due on due Goal Tdap Vaccine. Due on 2033 due Goal FOBT. Due on due Goal Colonoscopy. Due on due Goal Zoster vaccine (). Due on due Goal FIT-DNA. Due on due Goal PRAPARE ASSESSMENT. Due on due Goal Hepatitis C screening. Due o n due Goal Tdap due Goal Depression screening. Due on due Goal Unhealthy drug use screening . Due on due Goal FIT. Due on due Goal Lipid panel. Due on due Goal CT-Colonography. Due on due Goal PRAPARE ASSESSMENT. Due on due Goal FOBT. Due on due Goal Zoster vaccine (1st). Due on due Goal Tdap Vaccine. Due on 2033 due Goal Colonoscopy. Due on 024 due Goal FIT-DNA. Due on due Goal Influenza vaccine. Due on due History Of Present Illness Encounter Date Complaint History Of Prese nt Illness COVID-19 Screening for [place] VID-19 negative. Patient notified.//TE[facility] [place] lab darw Patient here for pre-employment labs and imms. Labs obtained after 3 attemps from right ac. Patient tolerated it well. Hugh Salcedo. Functional Status Date Functional Assessmen t No Information Instructions Date Instruction Additional Infor janet No Information Assessments Type Assessment Date assessment Encounter for screening for COVI D-19 Patient Care Teams Name Effective Dates (start - stop) Status Members No Information
--- OUTSIDE RECORDS SUMMARY | 2025-01-16 17:55 | XMS_ITS ---
Author Organization [facility] [place] Address [address] [place] [address] Care Team Providers Care Black Ash Worker Name Role Phone Jack Godwin Primary Care Provider REASON FOR VISIT lab results Encounters Encounter Location Date Provider Diagnosis [facility] [address] [place] [address] 01/16/2025 Jack Godwin Plan Of Treatment Medication Medication Name Sig Start Date Stop Date Notes Lisinopril 40 MG TAKE 1 TABLET EVERY DAY Next Appt Details Provider Name:Jack Godwin, 08:30:00 AM, [address] [place], [address], Progress Notes * Clark RIDDLE RDOB:1950 (74 yo M)Acc No.[id number]:01/16/2025 Patient: Blanca CALLIEMayeClark :1950 A ge:74 Y S ex:Male Address:[address], [place] [address] * Refills Stop Lisinopril Tablet, 40 MG, TAKE 1 TABLET EVERY DAY * true * Date: Generated for Printi ng/Faxing/eTransmitting on: 0 03/21/2025 04:47 PM EDT
--- OUTSIDE RECORDS SUMMARY | 2025-03-21 11:38 | XMS_ITS ---
Author Organization [facility] in [place] Address [address] [place] [address] Care Team Providers Care Burlap Roll Coverer Name Role Phone Jack Godwin Primary Care Provider REASON FOR VISIT wants labs Encounters Encounter Location Date Provider Diagnosis [facility] [address] [place] [address] 03/21/2025 Jack Godwin Anemia, iron deficie ncy D50.9 and Hyperkalemia E87.5 Assessments Encounter Date Diagnosis (ICD Code) Assessment Notes Treatment Notes Treatment Clinical Notes Section Notes 03/21/2025 Anemia, iron deficiency (ICD-10 - D50.9) 03/21/2025 Hyperkalemia (ICD-10 - E87.5) Plan Of Treatment Pending Test Test Name Order Date CBC AUTO DIFF 03/21/2025 PROF 14(COMP METB) 03/21/2025 Next Appt Details Provider Name:Jack Godwin, 08:30:00 AM, [address] [place], [address], Progress Notes * Clark RIDDLE RDOB:1950 (74 yo M)Acc No.[id number]:03/21/2025 Patient: Blanca HOU Clark Bueno :1950 A ge:74 Y S ex:Male Address:[address], [place] [address] Subjective: * Chief Complaints: * W ants [...] Codes: * true * Date: Generated for lFex pate/Mahad/Bridgetsmitting on: 0 03/21/2025 04:47 PM EDT
--- OUTSIDE RECORDS SUMMARY | 2025-03-21 16:48 | XMS_ITS | Clinical Summary ---
Author Organization [facility] Healthcare Address [address] [facility] [place] [address] Care Team Providers Care Utilization Engineer Name Role Phone Errol Bojorquez DO Unavailable [phone] Rodriguez Godwin MD Primary Care Provider [phone] Allergies No known active allergies Medications lisinopril [...] Take 1 capsule by mouth Daily Active Social History Tobacco Use Types Packs/Day [...] 1950 Pneumococcal Vaccine: 65+ Years (1 of 1 - PCV) 000 Influenza Vaccine (#1) 2025 09/21/2023 Insurance [facility] MEDICARE ADVANTAGE Care Teams Utilization Engineer Relationship Specialty Start Date End Date Rodriguez Godwin MD [address] [place] [id number] PCP - General Family Medicine 11/05/24 Errol Bojorquez DO [address] [place] [address] [id number] Referring Physician Neurology 11/05/24
--- OUTSIDE RECORDS SUMMARY | 2025-03-21 16:48 | XMS_ITS | Encounter Summary ---
Author Organization [facility] Address [address] [place] [address] Care Team Providers Care Baker Doughnut Name Role Phone Rodriguez Godwin MD Primary Care Provider Reason for Visit * Reason Comments Med Refill Encounter Details Date Type Department Care Team (Late st Contact Info) Description 12/10/2024 Refill [facility] [address] [place] [address] Bruce Bah MD [address] [facility] [place] [address] Coronary artery disease involving [place] coronary artery of [place] heart without angina pectoris Social History Tobacco [...] Assigned at Male 04/06/2023 10:50 AM EDT Legal Sex Male 10:25 AM EDT Gender Identity Male 04/06/2023 10:50 AM EDT Sexual Orientation Heterosexual or Straight 03/16 10:50 AM EDT documented as of this encounter Plan of Treatment Not on file documented as of this encounter Visit Diagnoses Diagnosis Coronary artery disease involving [place] coronary artery of [place] heart without angina pectoris documented in this encounter Care Teams Baker Doughnut Relationship Specialty Start Date End Date Rodriguez Godwin MD [address] [facility] [place] [place] [address] PCP - General 03/21/23 documented as of this encounter
--- OUTSIDE RECORDS SUMMARY | 2025-03-21 16:48 | XMS_ITS | Clinical Summary ---
Author Organization [facility] Address [address] [place] [address] Care Team Providers Care Enterprise Architect Manager Name Role Phone Rodriguez Godwin MD Primary Care Provider [phone] Allergies Active Allergy Reactions Criticality Noted Date Comments Atorvastatin Other 04/06/2024 myalgias Medications LORazepam (Ativan) 1 mg tablet every 12 (twelve) hours. 3 Active mesalamine (Delzicol) [address] capsule [...] mouth Twice daily at 6am and 6pm. 4 Active topiramate 50 mg tablet 50 mg 1 (one) time each day at the same time. 4 Active lisinopril 40 mg tabletIndication s:Primary hypertension,Unc ontrolled hypertension Take 1 tablet (40 mg) by mouth in the morning. 90 tablet 3 4 Active apixaban (Eliquis) 2.5 mg tabletIndication s:History of DVT (deep vein thrombosis),Hist ory of pulmonary embolism Take 1 tablet (2.5 mg) by mouth two times daily. 180 tablet 3 5 09/24/19 26 Active Additional Information Patient not taking.Reported on 01/15/2025 pravastatin (Pravachol) 20 mg tabletIndication s:Coronary artery disease involving [place] coronary artery of [place] heart without angina pectoris TAKE 1 TABLET BY MOUTH EVERY DAY IN THE MORNING 90 tablet 3 5 Active Additional Information Patient not taking.Reported on 01/15/2025 metoprolol succinate XL (Toprol-XL) 25 mg 24 hr tabletIndication s:Coronary artery disease involving [place] coronary artery of [place] heart without angina pectoris TAKE 1 TABLET (25 MG) BY MOUTH IN THE MORNING . DO NOT CRUSH OR CHEW 90 tablet 3 5 12/20/19 26 Active ezetimibe (Zetia) 10 mg tabletIndication s:Coronary artery disease involving [place] coronary artery of [place] heart without angina pectoris TAKE 1 TABLET BY MOUTH EVERY DAY IN THE MORNING 90 tablet 3 5 Active tamsulosin (Flomax) 0.4 mg 24 hr capsule Take 0.4 mg by mouth in the morning. 5 12/07/19 26 Active Active Problems Problem Noted Date Diagnosed [...] and collapse 03/15/2023 Overview (03/21/2023): ED visit [facility] for dehydration, near syncope. Assessment & Plan (03/21/2023 2:50 PM EDT): In light pt admits 2 episodes of syncope while on vacation in [place] with his daughter- denied any symptoms prior to waking up on the floor- broke 3 front teeth in one episode. Encounters Date Type Department Care Team Description 01/22/2025 Telephone [facility] [address] [facility] [place] [address] Yuridia Nuñez MA 01/22/2025 Orders Only [facility] [address] [facility] [place] [address] Amanda Shah MD 01/21/2025 Orders Only [facility] [address] [facility] [place] [address] Yuridia Nuñez MA Hypokalemia 01/15/2025 11:00 AM EDT Office Visit [place] [address] [facility] [place] [address] Shiv Shirley MD Atypical atrial flutter (CMS/HCC); SVT (supraventricular tachycardia); NARANJO (dyspnea on exertion) 01/15/2025 Orders Only [facility] [address] [facility] [place] [address] Jordyn Harley MA 01/15/2025 Orders Only [address] [place] [address] ProviderAmanda MD 01/14/2025 Orders Only [facility] [address] [facility] [place] [address] Amanda Shah MD 12/19/[address] [place] [address] Bruce Bah MD Coronary artery disease involving [place] coronary artery of [place] heart without angina pectoris from Last 3 Months Family History Medical [...] drink = 0.6 oz pur e alcohol) [place] Safety & Environment Answer Date Rec orded [...] Medicare Annual Wellness (AWV) 1950 Sigmoidoscopy 1950 Depression Screening 1961 Pneumococcal Vaccine: 50+ Years (1 of 2 - PCV) 1968 Zoster Vaccines (1 of 2) 1999 Fall Risk Screening 2014 COVID-19 Vaccine (4 - 2023-2 5 season) 2024 09/14/2023, 09/10/2020, 08/13/2020 Influenza Vaccine (#1) 2025 , 06/13/2009 Adult Tetanus 09/14/2033 09/14/2023 HIB Vaccines [...] Procedure Name Priority Date/Time Associated Diagnosis Comments POTASSIUM Routine 01/21/2025 12:12 PM EDT TREADMILL STRESS MYOCARDIAL PERFUSION IMAGING Routine 01/21/2025 12:06 PM EDT from Last 3 Months Results * Potassium (01/21/2025 12:12 PM EDT) Blood Venous blood specimen / Unknown Shiv Shirley MD LAB BLOOD ORDERABLES Final Resul t * Treadmill Stress Myocardial Perfusion Imaging (01/21/2025 12:06 PM EDT) Anatomical Region Laterality Modality Other Historical Provider CV STRESS PROCEDURES Liliana l Result from Last 3 Months Insurance [employer] MEDICARE ADVANTAGE Care Teams Enterprise Architect Manager Relationship Specialty Start Date End Date Rodriguez Godwin MD [address] [facility] [address] [address] PCP - General 03/21/23
--- OUTSIDE RECORDS SUMMARY | 2025-03-21 16:48 | XMS_ITS | Patient Health Record ---
Author Organization [facility] [place] Address [address] [place] [address] Care Team Providers Care Senior Catering Sales Manager Name Role Phone Jack Godwin Primary Care Provider Allergies Allergen (clinical drug ingredient) Drug/Non Drug Allergy documented on EMR Reaction Allergy Type Onset Date Status Seafood Seafood (uncoded) GI issues Allergy Ac tive Results Component Value Reference Range Notes BNP Reviewed date:01/16/2025 09:56:39 PM Interpretation: Performing Lab: Notes/Report: [facility] , NT Pro B Type Natriuretic Pept 101.0 <=1800.0 pg/mL Performing Lab: see note ML - The [facility] LB MAGNESIUM Reviewed date:01/16/2025 09:56:39 PM Interpretation: Performing Lab: Notes/Report: [facility] , Magnesium 1.6 1.8-2.4 mg/dL Performing Lab: see note ML - The [facility] LB US venous doppler LE BI Reviewed date:09/15/2024 04:39:28 PM Interpretation: Performing Lab: Notes/Report: Source Facility: [address] [address] [place] [address] Ultrasound Report Signed Patient: JEB RIDDLE MR#: [id number] : 1950 Acct:[id number] Age/Sex: 73 / M ADM Date: 09/14/24 Loc: CARD Attending Dr: Lauren Godwin M.D. Ordering Physician: Lauren Godwin M.D. Date of Service: 09/14/24 Procedure(s): US venous doppler LE BI Accession Number(s): [id number] cc: Lauren Godwin M.D. [address] [id number] Patient Name: JEB RIDDLE MRN: [id number] date: 1950 Sex: M Assigned Patient Location: CARD Current Patient Location: CARD Accession/Order Number: [id number] Exam Date: 09/14/2024 11:15 Report Date: 09/14/2024 [...] Signed By: 09/14/24 1350 DD/ 1347 TD/TT: Small Business Sales Representative: The [address] [address] Ultrasound Report Signed Patient: JEB RIDDLE MR#: [id number] : 1950 Acct:[id number] Age/Sex: 73 / M ADM Date: 09/14/24 Loc: CARD Attending Dr: Yasmin Godwin M.D. Ordering Physician: Lauren Godwin M.D. Date of Service: 09/14/24 Procedure(s): US marco ous doppler LE BI Accession Number(s): [id number] cc: Lauren Godwin M.D. [address] [address] Patient Name: JEB RIDDLE MRN: [id number] date: 1950 Sex: M Assigned Patient Location: CARD Current Patient Location: CARD Accession/Order Numb er: [id number] Exam Date: 09/14/2024 11:15 Report Date: 09/14/2024 [...] Davenport M.D. Signed By: 09/14/24 1350 DD/ 1345 TD/TT: Small Business Sales Representative: LIPID PROFILE Reviewed date:04/05/2024 09:07:56 PM Interpretation: Performing Lab: Notes/Report: [facility] , Triglycerides 132 <=150 mg/dL Cholesterol 116 [...] Performing Lab: see note ML - The [facility] LB LAB TESTING Reviewed date:04/16/2024 12:00:10 PM Interpretation: Performing Lab: Notes/Report: [id number] von Willebrand Factor (vWF) Profile [facility] , Miscellaneous Test COMMENT . Test Ordered: [id number] von Willebrand Profile Factor VIII Activity 102 % BN Reference Range: 56-140 von Willebrand Factor (vWF) Ag 122 % BN Reference Range: 50-200 This test was developed and its performance characteristics determined by [facility]. It has not been cleared or approved [...] cofactor activity; FVIII - factor VIII activity. PUBLIC SAFETY DISPATCHER: For questions regarding panel interpretation, please contact Shaq Sandoval M.D. at [employer] [facility] at . --- DISCLAIMER These assessments [...] (1) The National Heart, Lung and Blood [place]. The Diagnosis, Evaluation and Management of von Willebrand Disease. [place], [place]: National Institutes of Health Publication 08-5832. 2007. Available at http://www.nhlbi.nih.gov/mehdi delines/vwd/. (2) Maurice MUNSON et al. Am J Hematol. 2009; 84(6):366-370. (3) Patria M et al. Haemophilia. 2004;10(3):199-217. (4) New SHEPHERD et al. Haemophilia. 2004; 10(3):218-231. Performed at: [address] [id number] Methods Study Analyst: Erin Ellison MD, Phone: [phone] Performed at: [facility] Clinical / Digital [address] [place] [id number] Methods Study Analyst: Marry Kee MD, Phone: [phone] Performed at: [address] [id number] Methods Study Analyst: Greg Renee PhD, Phone: [phone] Performing Lab: see note [facility] Protein C-Functional Reviewed date:04/16/2024 12:00:10 PM Interpretation: Performing Lab: Notes/Report: [facility] Protein C-Functional 120 73-180 % Performed at: [address] [id number] Methods Study Analyst: Erin Ellison MD, Phone: [phone] Performing Lab: see note [facility] Protein S-Functional Reviewed date:04/16/2024 12:00:10 PM Interpretation: Performing Lab: Notes/Report: [facility] Protein S-Functional 95 63-140 % Protein S activity may be falsely increased (masking an abnormal, low result) in patients receiving direct Xa inhibitor (e.g., rivaroxaban, apixaban, edoxaban) or a direct thrombin inhibitor (e.g., dabigatran) anticoagulant treatment due to assay interference by these drugs. Performing Lab: see note [facility] Factor V Leiden Mutation Reviewed date:04/23/2024 09:01:00 PM Interpretation: Performing Lab: Notes/Report: [facility] , Factor V Leiden Mutation Comment . Result: c.1601G>A (p.Qfh323Bmn) - Not Detected This result is not associated with an increased risk for venous thromboembolism. See Additional Clinical Information and Comments. Additional Clinical Information: Venous thromboembolism is a multifactorial disease influenced by genetic, environmental, and circumstantial risk factors. The c.1601G>A (p. Hqt776Fiy) variant in the F5 gene, commonly referred [...] c.*97G>A variant and Factor V Leiden (PMID: 37656024). Additional risk factors include but are not [...] health care providers to discuss results at [phone] (4474). Test Details: Variant Analyzed: c.1601G>A (p. Mew733Vid), referred to as Factor V Leiden Methods/Limitations: [...] developed and its performance characteristics determined by [facility]. It has not been cleared or approved by the Food and Drug Administration. References: Drea S, Alma Delia AK, Rojas R, Brody WW, Oren SOLANO; ACMG Professional Practice and Guidelines Committee. Addendum: [place] [employer] consensus statement on factor V Leiden mutation testing. [employer]a Med. 2020Oct 17. doi: 10.1038/x17927-767-92944-a. PMID: 67121256. Franc RAMÍREZ. Factor V Leiden Thrombophilia. 1998December 26 (Updated 2017Aug 18). In: Jovany MP, Alexis HH, Santhosh RA, et al., editors. Lalit(Myles) (Internet). [place] ([place]): [facility]; 9326-1289. Available from: https://www.ncbi.nlm.nih.gov /books/AIK8342/ Diego S, Alma Delia AK, Jamari X, Glen B, Effie EB, Ibeth P, Ryan CS; ACMG Laboratory Brim Edge Trimmer Committee. Venous thromboembolism laboratory testing (factor V Leiden and factor II c.*97G>A), 2018 update: a technical standard of the [place] and Genomics (ACMG). Erica Med. 2017;20(12):9760-1897. doi: 10.1038/m23582-115-5980-b. Epub 2017May 19. PMID: 49475323. Reviewed By Comment . Technical Component performed at [facility] Professional Component performed by: [employer] Martina Oh, Ph.D., [facility] Director, Molecular Genetics [id number] [place] [address] Performed at: [facility] [address] [place], [place] [id number] Methods Study Analyst: Leela Cantrell [facility], Phone: [phone] Performing Lab: see note [facility] Factor II, DNA Analysis Reviewed date:04/17/2024 08:57:28 PM Interpretation: Performing Lab: Notes/Report: [facility] , Factor II, DNA Analysis Comment . [...] the F2 gene and a c.1601G>A (p. Pkt386Xxr) variant in the F5 gene (commonly referred to as Factor V Leiden) have an approximately 20- fold increased risk for venous thromboembolism. Risks are likely to be even higher in more complex genotype combinations involving the F2 c.*97G>A variant and Factor V Leiden (PMID: 92998407). Additional risk factors include but are not [...] health care providers to discuss results at [phone] (3076). Test Details: Variant analyzed: c.*97G>A, previously referred to as I61621V Methods/Limitations: DNA analysis of the F2 gene [...] developed and its performance characteristics determined by [facility]. It has not been cleared or approved by the Food and Drug Administration. References: Drea S, Alma Delia AK, Rojas R, Brody WW, Oren SOLANO; ACMG Professional Practice and Guidelines Committee. Addendum: [place] [employer] consensus statement on factor V Leiden mutation testing. Erica Med. 2020Oct 17. doi: 10.1038/w72540-148-01349-w. PMID: 82792193. Franc RAMÍREZ. Prothrombin Thrombophilia. 2005Mar 08 [Updated 2020Sep 18]. In: Jovany MP, Alexis HH, Santhosh RA, et al., editors. Lalit(Myles) [Internet]. [place] ([place]): [facility]; 3686-4436. Available from: https://www.ncbi.nlm.nih.gov /books/VVK2696/ Diego S, Alma Delia AK, Jamari X, Glen B, Effie EB, Ibeth P, Ryan CS; ACMG Laboratory Brim Edge Trimmer Committee. Venous thromboembolism laboratory testing (factor V Leiden and factor II c.*97G>A), 2018 update: a technical standard of the [place] [employer] and Genomics (ACMG). Erica Med. 2018 Jul;20(12):2706-7113. doi: 10.1038/r58343-615-6741-y. Epub 2017May 19. PMID: 49656664. Reviewed By Comment . Brown Dickinson, PhD [facility] Performed at: [facility] [address] [place], [place] [id number] Methods Study Analyst: Leela Cantrell [facility], Phone: [phone] Performing Lab: see note - [facility] LB Lupus Anticoagulant Reflex Reviewed date:04/16/2024 12:00:10 PM Interpretation: Performing Lab: Notes/Report: [facility] , PTT-LA 32.6 0.0-43.5 sec dRVVT 49.0 0.0-47.0 sec dRVVT Mix 42.8 0.0-40.4 sec dRVVT Confirm 0.9 0.8-1.2 ratio Lupus Reflex Interpretation Comment: . No lupus anticoagulant was detected. These results are consistent with specific inhibitors to one or more common pathway factors (X, V, II or fibrinogen). Performed at: [facility] [employer] [place] [id number] Methods Study Analyst: Erin Ellison MD, Phone: [phone] Performing Lab: see note - [facility] LB Antithrombin Activity Reviewed date:04/16/2024 12:00:10 PM Interpretation: Performing Lab: Notes/Report: [facility] , Antithrombin Activity 119 75-135 % Direct Xa inhibitor anticoagulants such as rivaroxaban, apixaban and edoxaban will lead to spuriously elevated antithrombin activity levels possibly masking a deficiency. Performing Lab: see note [facility] LAB TESTING Reviewed date:04/16/2024 12:00:10 PM Interpretation: Performing Lab: Notes/Report: [id number] Plasminogen Activity [facility] , Miscellaneous Test COMMENT . Test Ordered: [id number] Plasminogen Activity Plasminogen 127 % Reference Range: 70-150 Performed at: [address] [id number] Methods Study Analyst: Erin Ellison MD, Phone: [phone] Performed at: [address] [id number] Methods Study Analyst: Greg Renee PhD, Phone: [phone] Performing Lab: see note [facility] PSA SCREENING Reviewed date:04/22/2024 08:56:52 PM Interpretation: Performing Lab: Notes/Report: [facility] , Prostate Specific Antigen Scrn 6.74 <=4.00 ng/mL Performing Lab: see note [facility] LB CEA Reviewed date:04/22/2024 08:56:52 PM Interpretation: Performing Lab: Notes/Report: [facility] , CEA 4.1 0.0-4.7 ng/mL Nonsmokers <3.9 Smokers <5.6 [facility] Electrochemiluminescence Immunoassay (ECLIA) Values obtained with different assay methods or kits cannot be used interchangeably. Results cannot be interpreted as absolute evidence of the presence or absence of malignant disease. Performing Lab: see note [facility] LB CA 19-9 Reviewed date:04/22/2024 08:56:52 PM Interpretation: Performing Lab: Notes/Report: [facility] , CA 19-9 8 0-35 U/mL [facility] Electrochemiluminescence Immunoassay (ECLIA) Values obtained with different assay methods or kits cannot be used interchangeably. Results cannot be interpreted as absolute evidence of the presence or absence of malignant disease. Performed at: [address] [id number] Methods Study Analyst: Greg Renee PhD, Phone: [phone] Performing Lab: see note [facility] PSA Total+% Free Reviewed date:04/29/2024 11:48:54 AM Interpretation: Performing Lab: Notes/Report: [facility] , Prostate Specific Ag 4.1 0.0-4.0 ng/mL [facility] ECLIA methodology. According to the [place] [employer], Serum PSA should decrease and [...] other population of men. Performed at: - [address] [id number] Methods Study Analyst: Greg Renee PhD, Phone: [phone] Performing Lab: see note - [facility] LB LACTATE or LACTIC ACID Reviewed date:08/31/2024 09:11:51 AM Interpretation: Performing Lab: Notes/Report: [facility] , Lactate/Lactic Acid 1.2 0.4-2.0 mmol/L Performing Lab: see note ML - The [facility] LB LIPASE Reviewed date:08/31/2024 09:11:51 AM Interpretation: Performing Lab: Notes/Report: [facility] , Lipase 24.0 16.0-77.0 U/L Performing Lab: see note - The [facility] LB PROF 14(COMP METB) Reviewed date:08/31/2024 09:11:51 AM Interpretation: Performing Lab: Notes/Report: [facility] , Sodium 144 136-145 mmol/L Potassium 5.0 [...] 1.1 Performing Lab: see note ML - [facility] LB UA Micro, reflex to culture Reviewed date:08/31/2024 09:11:51 AM Interpretation: Performing Lab: Notes/Report: [facility] , Color Urine YELLOW YELLOW Clarity Urine CLEAR CLEAR Specific [place] Urine 1.025 1.005-1.025 pH Urine 5.5 5.0-9.0 [...] #/LPF Performing Lab: see note ML - [facility] LB XR acute abdomen series Reviewed date:08/31/2024 09:11:51 AM Interpretation: Performing Lab: Notes/Report: Source Facility: [address] [address] [place] [address] XRay Report Signed Patient: JEB RIDDLE MR#: [id number] : 1950 Acct:[id number] Age/Sex: 73 / M ADM Date: 08/30/24 Loc: ER Attending Dr: Ordering Physician: Warner Maradiaga Date of Service: 08/30/24 Procedure(s): XR acute abdomen series Accession Number(s): [id number] cc: Lauren Godwin M.D.; Warner Maradiaga [place] [address] Patient Name: JEB RIDDLE MRN: [id number] date: 1950 Sex: M Assigned Patient Location: ER Current Patient Location: ER Accession/Order Number: [id number] Exam Date: 08/30/2024 21:10 Report Date: 08/30/2024 [...] M.D. Signed By: 08/30/242240 DD/ 38 TD/TT: Small Business Sales Representative: [place] [address] XRay Report Signed Patient: JEB RIDDLE MR#: [id number] : 1950 Acct:[id number] Age/Sex: 73 / M ADM Date: 08/30/24 Loc: ER Attending Dr: Ordering Physician: Warner Maradiaga Date of Service: 08/30/24 Procedure(s): XR acu te abdomen series Accession Number(s): [id number] cc: Lauren Godwin M.D. ; Warner Maradiaga [facility] [address] [address] Patient Name: JEB RIDDLE MRN: [id number] date: 1950 Sex: M Assigned Patient Location: ER Current Patient Location: ER Accession/Order Numb er: [id number] Exam Date: 08/30/2024 21:10 Report Date: 08/30/2024 [...] M.D. Signed By: 08/30/242240 DD/ 38 TD/TT: Small Business Sales Representative: PROF OLGA May ([facility]) Reviewed date:08/31/2024 09:11:51 AM Interpretation: Performing Lab: Notes/Report: [facility] , Sodium 143 136-145 mmol/L Potassium 5.1 [...] mg/dL Performing Lab: see note ML - [facility] Troponin I High Sensitivity Reviewed date:09/02/2024 02:45:21 PM Interpretation: Performing Lab: Notes/Report: [facility] , Troponin I High Sensitivity 20.9 4.0-76.1 pg/mL CUT-OFF POINTS HAVE BEEN ESTABLISHED BASED ON THE FOURTH UNIVERSAL DEFINITION OF MYOCARDIAL INFARCTION. THE UPPER REFERENCE LIMIT (URL) OF TROPONIN, DEFINED THE 99TH PERCENTILE OF cTnI DISTRIBUTION IN A REFERENCE POPULATION, HAS BEEN CONFIRMED THE DECISION THRESHOLD FOR LA DIAGNOSIS. 99TH PERCENTILE = 76.2 PG/ML NOTE: HIGH-SENSITIVITY TROPONIN ASSAY IS NOT INTENDED TO BE USED IN ISOLATION BUT SHOULD BE INTERPRETED IN CONJUNCTION WITH OTHER DIAGNOSTIC AND CLINICAL INFORMATION. Performing Lab: see note ML - [facility] LB ECG 12 lead Reviewed date:09/02/2024 02:45:20 PM Interpretation: Performing Lab: Notes/Report: Source Facility: [place] [address] Electrocardiograph Report Signed Patient: JEB RIDDLE MR#: [id number] : 1950 Acct:[id number] Age/Sex: 73 / M ADM Date: 08/31/24 Loc: ICU 270-[address]: Lauren Godwin M.D. Ordering Physician: Lauren Godwin M.D. Date of Service: 08/31/24 Procedure(s): ECG 12 lead Accession Number(s): [id number] cc: [facility] Test Date: 2024-08-31 Pat Name: JEB RIDDLE Department: Room: [facility] Gender: Male Bellhop Service Captain: : 1950 Requested By: LAUREN GODWIN Order Number: [id number] Reading MD: LAUREN GODWIN Measurements Intervals [place] Rate: 144 P: WA: QRS: 52 QRSD: 94 T: 84 QT: 298 QTc: 462 Interpretive Statements SUPRAVENTRICULAR TACHYCARDIA MODERATE ST DEPRESSION [0.05+ mV ST DEPRESSION] No previous ECG available for comparison Dictated By: Lauren Godwin M.D. Signed By: <Electronically signed by Lauren Godwin M.D.> 09/01/24622 DD/ 151 TD/TT: Small Business Sales Representative: [place] [address] Electrocardiograph Report Signed Patient: JEB RIDDLE MR#: [id number] : 1950 Acct:[id number] Age/Sex: 73 / M ADM Date: 08/31/24 Loc: ICU 270-[address]: Yasmin Godwin M.D. Ordering Physician: Lauren Godwin M.D. Date of Service: 08/31/24 Procedure(s): ECG 12 lead Accession Number(s): [id number] cc: [facility] Test Date: 2024-08-31 Pat Name: JEB RIDDLE Department: 54 Room: [facility] Gender: Male Bellhop Service Captain: : 1950 Requested By: LAUREN GODWIN Order Number: [id number] Reading MD: LAUREN GODWIN Measurements Intervals [place] Rate: 144 P: WA: QRS: 52 QRSD: 94 T: 84 QT: 298 QTc: 462 Interpretive Statements SUPRAVENTRICULAR TACHYCARDIA MODERATE ST DEPRESSI ON [0.05+ mV ST DEPRESSION] No previous ECG available for comparison Dictated By: Lauren Godwin M.D. Signed By: <Electronically signed by Lauren Godwin M.D.> 09/01/24622 DD/ 1516 TD/TT: Small Business Sales Representative: CT angio chest Reviewed date:08/31/2024 09:11:51 AM Interpretation: Performing Lab: Notes/Report: Source Facility: [place] [address] [address] [address] [address] Scan Report Signed Patient: JEB RIDDLE MR#: [id number] : 1950 Acct:[id number] Age/Sex: 73 / M ADM Date: 08/31/24 Loc: ER Attending Dr: Ordering Physician: Warner Maradiaga Date of Service: 08/31/24 Procedure(s): CT angio chest Accession Number(s): [id number] cc: Lauren Godwin M.D. [place] [address] Patient Name: JEB RIDDLE MRN: [facility]:[id number] date: 1950 Sex: M Assigned Patient Location: ER Current Patient Location: ER Accession/Order Number: [id number] Exam Date: 08/31/2024 03:25 Report Date: 08/31/2024 [...] Sullivan M.D. Signed By: 08/31/24 0409 DD/ 0406 TD/TT: Small Business Sales Representative: [place] [address] CT Scan Report Signed Patient: JEB RIDDLE MR#: [id number] : 1950 Acct:[id number] Age/Sex: 73 / M ADM Date: 08/31/24 Loc: ER Attending Dr: Ordering Physician: Warner Maradiaga Date of Service: 08/31/24 Procedure(s): CT ang io chest Accession Number(s): [id number] cc: Lauren Godwin M.D. [address] [address] Patient Name: JEB RIDDLE MRN: [id number] date: 1950 Sex: M Assigned Patient Location: ER Current Patient Location: ER Accession/Order Numb er: [id number] Exam Date: 08/31/2024 03:25 Report Date: 08/31/2024 04:06 At the request of: WARNER MARADIAGA Procedure: CT angio chest EXAM: CT angio chest , CT abdomen pelvis w con , 08/31/2024 HISTORY: chest pain abdominal pain. COMPARISON: CTA [facility] t, O805 2023. TECHNIQUE: IV contra st [...] Sullivan M.D. Signed By: 08/31/24 0409 DD/ 0406 TD/TT: Small Business Sales Representative: CT abdomen pelvis w con Reviewed date:08/31/2024 09:11:51 AM Interpretation: Performing Lab: Notes/Report: Source Facility: [place] [address] CT Scan Report Signed Patient: JEB RIDDLE MR#: [id number] : 1950 Acct:[id number] Age/Sex: 73 / M ADM Date: 08/31/24 Loc: ER Attending Dr: Ordering Physician: Warner Maradiaga Date of Service: 08/31/24 Procedure(s): CT abdomen pelvis w con Accession Number(s): [id number] cc: Luaren Godwin M.D. [address] [place] [address] Patient Name: JEB RIDDLE MRN: [id number] date: 1950 Sex: M Assigned Patient Location: ER Current Patient Location: ER Accession/Order Number: [id number] Exam Date: 08/31/2024 03:25 Report Date: 08/31/2024 [...] Sullivan M.D. Signed By: 08/31/24 0409 DD/ 0406 TD/TT: Small Business Sales Representative: [address] [address] [address] Scan Report Signed Patient: JEB RIDDLE MR#: [id number] : 1950 Acct:[id number] Age/Sex: 73 / M ADM Date: 08/31/24 Loc: ER Attending Dr: Ordering Physician: Warner Maradiaga Date of Service: 08/31/24 Procedure(s): CT abdomen pelvis w con Accession Number(s): [id number] cc: Lauren Godwin M.D. [place] [id number] Patient Name: JEB RIDDLE MRN: [id number] date: 1950 Sex: M Assigned Patient Location: ER Current Patient Location: ER Accession/Order Numb er: [id number] Exam Date: 08/31/2024 03:25 Report Date: 08/31/2024 [...] Sullivan M.D. Signed By: 08/31/24 0409 DD/ 0406 TD/TT: Small Business Sales Representative: PROF OLGA May ([facility]) Reviewed date:09/02/2024 02:45:21 PM Interpretation: Performing Lab: Notes/Report: [facility] , Sodium 143 136-145 mmol/L Potassium 4.5 [...] mg/dL Performing Lab: see note ML - [facility] LB ECG 12 lead Reviewed date:09/03/2024 07:13:00 PM Interpretation: Performing Lab: Notes/Report: Source Facility: [place] [address] Electrocardiograph Report Signed with Edmar Patient: JEB RIDDLE MR#: [id number] : 1950 Acct:[id number] Age/Sex: 73 / M ADM Date: 08/31/24 Loc: MS 221-[address]: Lauren Godwin M.D. Ordering Physician: Lauren Godwin M.D. Date of Service: 08/31/24 Procedure(s): ECG 12 lead Accession Number(s): [id number] cc: ADDENDUM [facility] Test Date: 2024-08-31 Pat Name: JEB RIDDLE Department: Room: [facility] Gender: Male Bellhop Service Captain: : 1950 Requested By: LAUREN GODWIN Order Number: [id number] Reading MD: EDER MCNAIR Measurements Intervals [place] Rate: 100 P: 74 WA: 176 QRS: 84 QRSD: 102 T: 64 QT: 364 QTc: 421 Interpretive Statements 1120 Sinus tachycardia Subtle, nonspecific inferior ST changes. Compared to previous tracing, rate much improved. Electronically Signed On 09-03-2024 17:46:26 EST by EDER MCNAIR Addendum Dictated By: Eder Mcnair D.O. Addendum Signed By: 09/03/24 1 746 Addendum Cosigned By: DD/ TD/TT: / [facility] Test Date: 2024-08-31 Pat Name: JEB RIDDLE Department: Room: [facility] Gender: Male Bellhop Service Captain: : 1950 Requested By: LAUREN GODWIN Order Number: [id number] Reading MD: EDER MCNAIR Measurements Intervals [place] Rate: 100 P: 74 WA: 176 QRS: 84 QRSD: 102 T: 64 [...] Signed By: 09/03/24 1741 DD/ 31 TD/TT: Small Business Sales Representative: [place] [address] Electrocardiograph Report Signed with Addenda Patient: JEB RIDDLE MR#: [id number] : 1950 Acct:[id number] Age/Sex: 73 / M ADM Date: 08/31/24 Loc: [place] 221-[address]: Yasmin Godwin M.D. Ordering Physician: Lauren Godwin M.D. Date of Service: 08/31/24 Procedure(s): ECG 12 lead Accession Number(s): [id number] cc: ADDENDUM [facility] Test Date: 2024-08-31 Pat Name: JEB RIDDLE Department: 54 Room: [facility] Gender: Male Bellhop Service Captain: : 1950 Requested By: LAUREN GODWIN Order Number: [id number] Reading MD: EDER MCNAIR Measurements Intervals [place] Rate: 100 P: 74 WA: 176 QRS: 84 QRSD: 102 T: 64 QT: 364 QTc: 421 Interpretive Statements 1120 Sinus tachycardia Subtle, nonspecific inferior ST changes. Compared to previous tracing, rate much improved. Electronically Johana d On 09-03-2024 17:46:26 EST by EDER MCNAIR Addendum Dictated By : Eder Mcnair D.O. Addendum Signed By: 09/03/24 1 746 Addendum Cosigned By: DD/ TD/TT: / [facility] Test Date: 2024-08-31 Pat Name: JEB RIDDLE Department: 54 Room: [facility] Gender: Male Bellhop Service Captain: : 1950 Requested By: LAUREN GODWIN Order Number: [id number] Reading MD: EEDR MCNAIR Measurements Intervals [place] Rate: 100 P: 74 WA: 176 QRS: 84 QRSD: 102 T: 64 QT: 364 QTc: 421 Interpretive Statements 1120 Sinus tachycardia [address] depression [address] [place] abnormality 9140 abnormal [facility] ECG Compared to ECG 08/31/2024 15:16:05 Supraventricular tachycardia no longer present ST (T wave) deviatio n still present Electronically Johana d On 09-03-2024 17:40:38 EST by EDER MCNAIR Dictated By: Eder Mcnair D.O. Signed By: 09/03/241740 DD/ 31 TD/TT: Small Business Sales Representative: Troponin I High Sensitivity Reviewed date:09/02/2024 02:45:21 PM Interpretation: Performing Lab: Notes/Report: [facility] , Troponin I High Sensitivity 238.9 4.0-76.1 pg/mL RESULTS CALLED TO ICU Doug Howard RN @BY Nicholas Amezquita MT at 2251 CUT-OFF POINTS HAVE BEEN ESTABLISHED BASED ON THE FOURTH UNIVERSAL DEFINITION OF MYOCARDIAL INFARCTION. THE UPPER REFERENCE LIMIT (URL) OF TROPONIN, DEFINED THE 99TH PERCENTILE OF cTnI DISTRIBUTION IN A REFERENCE POPULATION, HAS BEEN CONFIRMED THE DECISION THRESHOLD FOR LA DIAGNOSIS. 99TH PERCENTILE = 76.2 PG/ML NOTE: HIGH-SENSITIVITY TROPONIN ASSAY IS NOT INTENDED TO BE USED IN ISOLATION BUT SHOULD BE INTERPRETED IN CONJUNCTION WITH OTHER DIAGNOSTIC AND CLINICAL INFORMATION. Performing Lab: see note ML - [facility] LB ECG 12 lead Reviewed date:09/03/2024 07:13:00 PM Interpretation: Performing Lab: Notes/Report: Source Facility: [address] [place] [address] [place] [address] Electrocardiograph Report Signed Patient: JEB RIDDLE MR#: [id number] : 1950 Acct:[id number] Age/Sex: 73 / M ADM Date: 08/31/24 Loc: [place] 221-[address]: Lauren Godwin M.D. 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 Signed By: 09/03/24 1743 DD/ 2306 TD/TT: Small Business Sales Representative: [place] [address] Electrocardiograph Report Signed Patient: JEB RIDDLE MR#: [id number] : 1950 Acct:[id number] Age/Sex: 73 / M ADM Date: 08/31/24 Loc: [place] 221-[address]: Yasmin Godwin M.D. Ordering Physician: Namita Hendrix NP Date of Service: 08/31/24 Procedure(s): ECG 12 lead Accession Number(s): [id number] cc: [facility] Test Date: 2024-08-31 Pat Name: JEB RIDDLE Department: 54 Room: [facility] Gender: Male Bellhop Service Captain: : 1950 Requested By: LAUREN GODWIN Order Number: [id number] Reading MD: EDER MCNAIR Measurements Intervals [place] Rate: 104 P: 73 WA: 168 QRS: 80 QRSD: 96 T: 65 QT: 348 QTc: 408 Interpretive Statements 1120 Sinus tachycardia 9140 abnormal rhy thm ECG Compared to ECG 08/31/2024 15:32:33 ST (T wave) deviatio n no longer present Electronically Johana d On 09-03-2024 17:43:08 EST by EDER MCNAIR Dictated By: Eder Mcnair D.O. Signed By: 09/03/24 174 DD/ 05 TD/TT: Small Business Sales Representative: BNP Reviewed date:09/02/2024 02:45:20 PM Interpretation: Performing Lab: Notes/Report: [facility] , NT Pro B Type Natriuretic Pept 2325.0 <=900.0 pg/mL RESULTS CALLED TO COLTON ALLRED RN AT 0741 Performing Lab: see note ML - The [facility] LB PTT HEPARIN MONITOR Reviewed date:09/02/2024 02:45:20 PM Interpretation: Performing Lab: Notes/Report: [facility] , PTT Heparin Monitor 35.3 43.5-61.5 sec RESULTS CALLED TO ELVIA ALLRED RN AT 0819 Performing Lab: see note ML - The [facility] LB ECG 12 lead Reviewed date:09/03/2024 07:13:00 PM Interpretation: Performing Lab: Notes/Report: Source Facility: [address] [place] [address] [place] [address] Electrocardiograph Report Signed Patient: JEB RIDDLE MR#: [id number] : 1950 Acct:[id number] Age/Sex: 73 / M ADM Date: 08/31/24 Loc: MS 221-[address]: Lauren Godwin M.D. Ordering Physician: Lauren Godwin M.D. Date of Service: 09/01/24 Procedure(s): ECG 12 lead Accession Number(s): [id number] cc: [facility] Test Date: 2024-09-01 Pat Name: JEB RIDDLE Department: Room: [facility] Gender: Male Bellhop Service Captain: : 1950 Requested By: LAUREN GODWIN Order Number: [id number] Reading MD: EDER MCNAIR Measurements Intervals [place] Rate: 100 P: 77 WA: 168 QRS: 81 QRSD: 102 T: 67 QT: 356 QTc: 413 Interpretive Statements 1120 Sinus tachycardia 9140 abnormal rhythm ECG Compared to ECG 08/31/2024 23:06:52 No significant changes Electronically Signed On 09-03-2024 17:49:55 EST by EDER MCNAIR Dictated By: Eder Mcnair D.O. Signed By: 09/03/24 175 DD/ 0747 TD/TT: Small Business Sales Representative: [place] [address] Electrocardiograph Report Signed Patient: JEB RIDDLE MR#: [id number] : 1950 Acct:[id number] Age/Sex: 73 / M ADM Date: 08/31/24 Loc: MS 221-[address]: Yasmin Godwin M.D. Ordering Physician: Lauren Godwin M.D. Date of Service: 09/01/24 Procedure(s): ECG 12 lead Accession Number(s): [id number] cc: [facility] Test Date: 2024-09-01 Pat Name: JEB RIDDLE Department: 54 Room: [facility] Gender: Male Bellhop Service Captain: : 1950 Requested By: LAUREN GODWIN Order Number: [id number] Reading MD: EDER MCNAIR Measurements Intervals [place] Rate: 100 P: 77 WA: 168 QRS: 81 QRSD: 102 T: 67 QT: 356 QTc: 413 Interpretive Statements 1120 Sinus tachycardia 9140 abnormal rhy thm ECG Compared to ECG 08/31/2024 23:06:52 No significant changes Electronically Johana d On 09-03-2024 17:49:55 EST by EDER MCNAIR Dictated By: Eder Mcnair D.O. Signed By: 09/03/24 175 DD/ 0747 TD/TT: Small Business Sales Representative: XR acute abdomen series Reviewed date:09/02/2024 02:45:20 PM Interpretation: Performing Lab: Notes/Report: Source Facility: [place] [address] XRay Report Signed Patient: JEB RIDDLE MR#: [id number] : 1950 Acct:[id number] Age/Sex: 73 / M ADM Date: 08/31/24 Loc: ICU 270-[address]: Lauren Godwin M.D. Ordering Physician: Lauren Godwin M.D. Date of Service: 09/01/24 Procedure(s): XR acute abdomen series Accession Number(s): [id number] cc: Lauren Godwin M.D. [place] [address] Patient Name: JEB RIDDLE MRN: [id number] date: 1950 Sex: M Assigned Patient Location: ICU Current Patient Location: ICU Accession/Order Number: [id number] Exam Date: 09/01/2024 07:15 Report Date: 09/01/2024 [...] M.D. Signed By: 09/01/24821 DD/ 9 TD/TT: Small Business Sales Representative: [place] [address] XRay Report Signed Patient: JEB RIDDLE MR#: [id number] : 1950 Acct:[id number] Age/Sex: 73 / M ADM Date: 08/31/24 Loc: ICU 270-[address]: Yasmin Godwin M.D. Ordering Physician: Lauren Godwin M.D. Date of Service: 09/01/24 Procedure(s): XR acu te abdomen series Accession Number(s): [id number] cc: Lauren Godwin M.D. [place] [address] Patient Name: JEB RIDDLE MRN: [id number] date: 1950 Sex: M Assigned Patient Location: ICU Current Patient Location: ICU Accession/Order Numb er: [id number] Exam Date: 09/01/2024 07:15 Report Date: 09/01/2024 [...] Dictated By: Marcello Oates M.D. Signed By: 09/01/24821 DD/ 9 TD/TT: Small Business Sales Representative: Troponin I High Sensitivity Reviewed date:09/02/2024 02:45:20 PM Interpretation: Performing Lab: Notes/Report: [facility] , Troponin I High Sensitivity 438.0 4.0-76.1 pg/mL RESULTS CALLED TO ELVIA ALLRED RN AT 1014 CUT-OFF POINTS HAVE BEEN ESTABLISHED BASED ON THE FOURTH UNIVERSAL DEFINITION OF MYOCARDIAL INFARCTION. THE UPPER REFERENCE LIMIT (URL) OF TROPONIN, DEFINED THE 99TH PERCENTILE OF cTnI DISTRIBUTION IN A REFERENCE POPULATION, HAS BEEN CONFIRMED THE DECISION THRESHOLD FOR LA DIAGNOSIS. 99TH PERCENTILE = 76.2 PG/ML NOTE: HIGH-SENSITIVITY TROPONIN ASSAY IS NOT INTENDED TO BE USED IN ISOLATION BUT SHOULD BE INTERPRETED IN CONJUNCTION WITH OTHER DIAGNOSTIC AND CLINICAL INFORMATION. Performing Lab: see note ML - The [facility] Troponin I High Sensitivity Reviewed date:09/02/2024 02:45:20 PM Interpretation: Performing Lab: Notes/Report: [facility] , Troponin I High Sensitivity 559.3 4.0-76.1 pg/mL RESULTS CALLED TO EUGENIO CYR RN AT 1319 CUT-OFF POINTS HAVE BEEN ESTABLISHED BASED ON THE FOURTH UNIVERSAL DEFINITION OF MYOCARDIAL INFARCTION. THE UPPER REFERENCE LIMIT (URL) OF TROPONIN, DEFINED THE 99TH PERCENTILE OF cTnI DISTRIBUTION IN A REFERENCE POPULATION, HAS BEEN CONFIRMED THE DECISION THRESHOLD FOR LA DIAGNOSIS. 99TH PERCENTILE = 76.2 PG/ML NOTE: HIGH-SENSITIVITY TROPONIN ASSAY IS NOT INTENDED TO BE USED IN ISOLATION BUT SHOULD BE INTERPRETED IN CONJUNCTION WITH OTHER DIAGNOSTIC AND CLINICAL INFORMATION. Performing Lab: see note ML - [facility] PTT HEPARIN MONITOR Reviewed date:09/02/2024 02:45:20 PM Interpretation: Performing Lab: Notes/Report: [facility] , PTT Heparin Monitor 48.2 43.5-61.5 sec Performing Lab: see note ML - [facility] PTT HEPARIN MONITOR Reviewed date:09/02/2024 02:45:20 PM Interpretation: Performing Lab: Notes/Report: [facility] , PTT Heparin Monitor 66.1 43.5-61.5 sec RESULTS CALLED TO Chen Mason RN @BY Nicholas Amezquita MT at 2011 Performing Lab: see note ML - [facility] BNP Reviewed date:09/02/2024 02:45:20 PM Interpretation: Performing Lab: Notes/Report: [facility] , NT Pro B Type Natriuretic Pept 1874.0 <=900.0 pg/mL RESULTS CALLED TO LUCILA PRICE RN ON MEDSUR BY Mansi Parikh at 0710 Performing Lab: see note ML - [facility] CBC AUTO DIFF Reviewed date:09/02/2024 02:45:20 PM Interpretation: Performing Lab: Notes/Report: [facility] , White Blood Count 9.1 4.0-11.0 10 [...] 3/uL Performing Lab: see note ML - [facility] PROF CHEM 8 (BAS METB) Reviewed date:09/02/2024 02:45:20 PM Interpretation: Performing Lab: Notes/Report: [facility] , Sodium 143 136-145 mmol/L Potassium 4.4 [...] Performing Lab: see note ML - The [facility] LB PTT HEPARIN MONITOR Reviewed date:09/02/2024 02:45:20 PM Interpretation: Performing Lab: Notes/Report: [facility] , PTT Heparin Monitor 91.1 43.5-61.5 sec RESULTS CALLED TO [facility] Bita Cyr RN @BY Nicholas Amezquita [place] at 0217 Performing Lab: see note ML - The [facility] LB Troponin I High Sensitivity Reviewed date:09/02/2024 02:45:20 PM Interpretation: Performing Lab: Notes/Report: [facility] , Troponin I High Sensitivity 600.2 4.0-76.1 pg/mL RESULTS CALLED TO ADRIENNE [facility]ICE [facility] BY Mansi Parikh at 0709 CUT-OFF POINTS HAVE BEEN ESTABLISHED BASED ON THE FOURTH UNIVERSAL DEFINITION OF MYOCARDIAL INFARCTION. THE UPPER REFERENCE LIMIT (URL) OF TROPONIN, DEFINED THE 99TH PERCENTILE OF cTnI DISTRIBUTION IN A REFERENCE POPULATION, HAS BEEN CONFIRMED THE DECISION THRESHOLD FOR LA DIAGNOSIS. 99TH PERCENTILE = 76.2 PG/ML NOTE: HIGH-SENSITIVITY TROPONIN ASSAY IS NOT INTENDED TO BE USED IN ISOLATION BUT SHOULD BE INTERPRETED IN CONJUNCTION WITH OTHER DIAGNOSTIC AND CLINICAL INFORMATION. Performing Lab: see note ML - The [facility] LB ECG 12 lead Reviewed date:09/03/2024 07:13:00 PM Interpretation: Performing Lab: Notes/Report: Source Facility: [facility]-[address] [place] [address] [place] [address] Electrocardiograph Report Signed Patient: JEB RIDDLE MR#: [id number] : 1950 Acct:[id number] Age/Sex: 73 / M ADM Date: 08/31/24 Loc: MS 221-[address]: Lauren Godwin M.D. Ordering Physician: Lauren Godwin M.D. Date of Service: 09/02/24 Procedure(s): ECG 12 lead Accession Number(s): [id number] cc: [facility] Test Date: 2024-09-02 Pat Name: JEB RIDDLE Department: Room: [facility] Gender: Male Bell[employer] Service Captain: : 1950 Requested By: LAUREN GODWIN Order Number: [id number] Reading MD: EDER MCNAIR Measurements Intervals [place] Rate: 55 P: 75 WA: 172 QRS: 74 QRSD: 108 T: 64 QT: 426 QTc: 409 Interpretive Statements SINUS BRADYCARDIA WITH MARKED SINUS ARRHYTHMIA Nonspecific ST/T wave changes Compared to ECG 09/01/2024 07:47:40 Sinus tachycardia no longer present Electronically Signed On 09-03-2024 17:54:39 EST by EDER MCNAIR Dictated By: Eder Mcnair D.O. Signed By: 09/03/241753 DD/ 8 TD/TT: Small Business Sales Representative: [place] [address] Electrocardiograph Report Signed Patient: JEB RIDDLE MR#: [id number] : 1950 Acct:[id number] Age/Sex: 73 / M ADM Date: 08/31/24 Loc: MS 221- Attending Dr: Yasmin Godwin M.D. Ordering Physician: Lauren Godwin M.D. Date of Service: 09/02/24 Procedure(s): ECG 12 lead Accession Number(s): [id number] cc: [facility] Test Date: 2024-09-02 Pat Name: JEB RIDDLE Department: 54 Room: [facility] Gender: Male Bell[employer] Service Captain: : 1950 Requested By: LAUREN GODWIN Order Number: [id number] Reading MD: EDER MCNAIR Measurements Intervals [place] Rate: 55 P: 75 WA: 172 QRS: 74 QRSD: 108 T: 64 QT: 426 QTc: 409 Interpretive Statements SINUS BRADYCARDIA WI TH MARKED SINUS ARRHYTHMIA Nonspecific ST/T wav e changes Compared to ECG 09/01/2024 07:47:40 Sinus tachycardia no longer present Electronically Johana d On 09-03-2024 17:54:39 EST by EDER MCNAIR Dictated By: Eder Mcnair D.O. Signed By: 09/03/241753 DD/ 8 TD/TT: Small Business Sales Representative: PTT HEPARIN MONITOR Reviewed date:09/02/2024 02:45:20 PM Interpretation: Performing Lab: Notes/Report: [facility] , PTT Heparin Monitor 47.6 43.5-61.5 sec Performing Lab: see note ML - The [facility] LB Troponin I High Sensitivity Reviewed date:09/02/2024 02:45:20 PM Interpretation: Performing Lab: Notes/Report: [facility] , Troponin I High Sensitivity 471.2 4.0-76.1 pg/mL RESULTS CALLED TO LUCILA PRICE RN ON MEDR BY Mansi Parikh at 1044 CUT-OFF POINTS HAVE BEEN ESTABLISHED BASED ON THE FOURTH UNIVERSAL DEFINITION OF MYOCARDIAL INFARCTION. THE UPPER REFERENCE LIMIT (URL) OF TROPONIN, DEFINED THE 99TH PERCENTILE OF cTnI DISTRIBUTION IN A REFERENCE POPULATION, HAS BEEN CONFIRMED THE DECISION THRESHOLD FOR LA DIAGNOSIS. 99TH PERCENTILE = 76.2 PG/ML NOTE: HIGH-SENSITIVITY TROPONIN ASSAY IS NOT INTENDED TO BE USED IN ISOLATION BUT SHOULD BE INTERPRETED IN CONJUNCTION WITH OTHER DIAGNOSTIC AND CLINICAL INFORMATION. Performing Lab: see note ML - The [facility] LB BNP Reviewed date:09/03/2024 01:52:37 PM Interpretation: Performing Lab: Notes/Report: [facility] , NT Pro B Type Natriuretic Pept 978.0 <=900.0 pg/mL Performing Lab: see note ML - The [facility] LB Troponin I High Sensitivity Reviewed date:09/03/2024 01:52:37 PM Interpretation: Performing Lab: Notes/Report: [facility] , Troponin I High Sensitivity 189.9 4.0-76.1 pg/mL RESULTS CALLED TO MAURA PEREZ RN CUT-OFF POINTS HAVE BEEN ESTABLISHED BASED ON THE FOURTH UNIVERSAL DEFINITION OF MYOCARDIAL INFARCTION. THE UPPER REFERENCE LIMIT (URL) OF TROPONIN, DEFINED THE 99TH PERCENTILE OF cTnI DISTRIBUTION IN A REFERENCE POPULATION, HAS BEEN CONFIRMED THE DECISION THRESHOLD FOR LA DIAGNOSIS. 99TH PERCENTILE = 76.2 PG/ML NOTE: HIGH-SENSITIVITY TROPONIN ASSAY IS NOT INTENDED TO BE USED IN ISOLATION BUT SHOULD BE INTERPRETED IN CONJUNCTION WITH OTHER DIAGNOSTIC AND CLINICAL INFORMATION. Performing Lab: see note ML - The [facility] LB ECG 12 lead Reviewed date:09/05/2024 03:55:07 PM Interpretation: Performing Lab: Notes/Report: Source Facility: [facility]-[address] [place] [address] [place] [address] Electrocardiograph Report Signed Patient: JEB RIDDLE MR#: [id number] : 1950 Acct:[id number] Age/Sex: 73 / M ADM Date: 08/31/24 Loc: MS 221-[address]: Lauren Godwin M.D. Ordering Physician: Lauren Godwin M.D. Date of Service: 09/03/24 Procedure(s): ECG 12 lead Accession Number(s): [id number] cc: [facility] Test Date: 2024-09-03 Pat Name: JEB RIDDLE Department: Room: [facility] Gender: Male Bell[employer] Service Captain: : 1950 Requested By: LAUREN GODWIN Order Number: [id number] Reading MD: EDER MCNAIR Measurements Intervals [place] Rate: 81 P: 75 WA: 178 QRS: 62 QRSD: 102 T: 75 [...] D.O. Signed By: 09/04/242048 DD/ 4 TD/TT: Small Business Sales Representative: [place] [address] Electrocardiograph Report Signed Patient: JEB RIDDLE MR#: [id number] : 1950 Acct:[id number] Age/Sex: 73 / M ADM Date: 08/31/24 Loc: MS 221-[address]: Yasmin Godwin M.D. Ordering Physician: Lauren Godwin M.D. Date of Service: 09/03/24 Procedure(s): ECG 12 lead Accession Number(s): [id number] cc: [facility] Test Date: 2024-09-03 Pat Name: JEB RIDDLE Department: 54 Room: [facility] Gender: Male Bell[employer] Service Captain: : 1950 Requested By: LAUREN GODWIN Order Number: [id number] Reading MD: EDER MCNAIR Measurements Intervals [place] Rate: 81 P: 75 WA: 178 QRS: 62 QRSD: 102 T: 75 [...] D.O. Signed By: 09/04/242048 DD/ 4 TD/TT: Small Business Sales Representative: JAKE echo limited Reviewed date:09/04/2024 07:17:01 PM Interpretation: Performing Lab: Notes/Report: Source Facility: [place] [address] Cardiology Report Signed Patient: JEB RIDDLE MR#: [id number] : 1950 Acct:[id number] Age/Sex: 73 / M ADM Date: 08/31/24 Loc: MS 221-[address]: Lauren Godwin M.D. Ordering Physician: Lauren Godwin M.D. Date of Service: 09/03/24 Procedure(s): CA echo limited Accession Number(s): [id number] cc: Lauren Godwin M.D. Patient Name: JEB RIDDLE MR#: [id number] : 1950 Exam Date: 09/03/2024 Ordering Doctor: [...] FORRESTER Signed By: 09/04/241852 DD/ 52 TD/TT: Small Business Sales Representative: [place] [address] Cardiology Report Signed Patient: JEB RIDDLE MR#: [id number] : 1950 Acct:[id number] Age/Sex: 73 / M ADM Date: 08/31/24 Loc: MS 221-[address]: Yasmin Godwin M.D. Ordering Physician: Lauren Godwin M.D. Date of Service: 09/03/24 Procedure(s): CA ech o limited Accession Number(s): [id number] cc: Lauren Godwin M.D. Patient Name: JEB RIDDLE MR#: [id number] : 1950 Exam Date: 09/03/2024 Ordering Doctor: [...] FORRESTER Signed By: 09/04/241852 DD/ 52 TD/TT: Small Business Sales Representative: MR head/brain wo con Reviewed date:09/15/2024 04:39:28 PM Interpretation: Performing Lab: Notes/Report: Source Facility: [place] [address] Magnetic Resonance Report Signed Patient: JEB RIDDLE MR#: [id number] : 1950 Acct:[id number] Age/Sex: 73 / M ADM Date: 09/14/24 Loc: CARD Attending Dr: Lauren Godwin M.D. Ordering Physician: Lauren Godwin M.D. Date of Service: 09/14/24 Procedure(s): MR head/brain wo con Accession Number(s): [id number] cc: Lauren Godwin M.D. [place] [address] Patient Name: JEB RIDDLE MRN: [id number] date: 1950 Sex: M Assigned Patient Location: CARD Current Patient Location: CARD Accession/Order Number: [id number] Exam Date: 09/14/2024 10:20 Report Date: 09/14/2024 [...] M.D. Signed By: 09/14/241728 DD/ 26 TD/TT: Small Business Sales Representative: [place] [address] Magnetic Resonance Report Signed Patient: JEB RIDDLE MR#: [id number] : 1950 Acct:[id number] Age/Sex: 73 / M ADM Date: 09/14/24 Loc: CARD Attending Dr: Yasmin Godwin M.D. Ordering Physician: Lauren Godwin M.D. Date of Service: 09/14/24 Procedure(s): MR head/brain wo con Accession Number(s): [id number] cc: Lauren Godwin M.D. [place] [address] Patient Name: JEB RIDDLE MRN: [id number] date: 1950 Sex: M Assigned Patient Location: CARD Current Patient Location: CARD Accession/Order Numb er: [id number] Exam Date: 09/14/2024 10:20 Report Date: 09/14/2024 [...] Dictated By: Maribel Riddle M.D. Signed By: 09/14/24 1729 DD/ 1727 TD/TT: Small Business Sales Representative: KATHIE Reviewed date:10/23/2024 03:58:06 PM Interpretation: Performing Lab: Notes/Report: [facility] , Iron 68.0 65.0-175.0 ug/dL Performing Lab: see note ML - [facility] LB Aerobic Culture Reviewed date:10/28/2024 03:33:01 PM [...] Interpretation INDIRA Status Aerobic Culture Performed at: [facility] Aerobic Culture Organism: Staphylococcus aureus : O:MRSA Isolated O:STAAUR Isolated Organism: 1.1 Antibiotic Interpretation INDIRA Status Aerobic Culture [address], [place] [id number] Aerobic Culture Organism: Staphylococcus aureus : O:MRSA Isolated O:STAAUR Isolated Organism: 1.1 Antibiotic Interpretation INDIRA Status Aerobic Culture Methods Study Analyst: Heidi Renee PhD, Phone: [phone] Aerobic Culture Organism: Staphylococcus aureus : O:MRSA [...] LC - [facility] LB SEE REPORT - Freight Rate Clerk Id information not found for OBX-specific event producer legend Anaerobic Culture Reviewed date:10/29/2024 08:25:16 PM Interpretation: Performing Lab: Notes/Report: [facility] , Anaerobic Culture See Below For Report Anaerobic Culture Anaerobic Culture No anaerobic growth in 72 hours. Anaerobic Culture Performing Lab: see note LC - [facility] LB Aerobic Culture Reviewed date:10/29/2024 08:25:16 PM [...] Clindamycin Clindamycin R F Aerobic Culture Organism: Methicilli n Resis Staph [...] Culture Organism: Staphylococcus aureus : O:[facility]SA [facility]olated [facility] Isolated Organism: 2.1 Antibiotic Interpretation INDIRA [...] Culture Organism: Staphylococcus aureus : O:MRSA [facility]olated [facility] Isolated Organism: 2.1 Antibiotic Interpretation INDIRA [...] Culture Organism: Staphylococcus aureus : O:MRSA Isolated O:[facility] Isolated Organism: 2.1 Antibiotic Interpretation INDIRA Status [...] Culture Organism: Staphylococcus aureus : O:MRSA Isolated O:[facility] Isolated Organism: 2.1 Antibiotic Interpretation INDIRA Status [...] Clindamycin R F Aerobic Culture Performed at: [facility] Aerobic Culture Organism: Staphylococcus aureus : [...] F Clindamycin Clindamycin R F Aerobic Culture [address] [place] [id number] Aerobic Culture Organism: Staphylococcus aureus : O:MRSA [...] F Clindamycin Clindamycin R F Aerobic Culture Methods Study Analyst: Heidi Renee PhD, Phone: [phone] Aerobic Culture Organism: Staphylococcus aureus : O:MRSA [...] Culture Organism: Staphylococcus aureus : O:MRSA [facility]olated [facility] Isolated Organism: 2.1 Antibiotic Interpretation INDIRA [...] Culture Organism: Staphylococcus aureus : O:MRSA [facility]olated [facility] Isolated Organism: 2.1 Antibiotic Interpretation INDIRA [...] LC - [facility] LB SEE REPORT - Freight Rate Clerk Id information not found for OBX-specific event producer legend CBC AUTO DIFF Reviewed date:11/03/2024 11:57:49 AM Interpretation: Performing Lab: Notes/Report: [facility] , White Blood Count 5.6 4.0-11.0 10 [...] 3/uL Performing Lab: see note ML - [facility] LB MAGNESIUM Reviewed date:11/03/2024 11:57:49 AM Interpretation: Performing Lab: Notes/Report: [facility] , Magnesium 1.3 1.8-2.4 mg/dL Performing Lab: see note ML - The [facility] LB PROF 14(COMP METB) Reviewed date:11/03/2024 11:57:49 AM Interpretation: Performing Lab: Notes/Report: [facility] , Sodium 139 136-145 mmol/L Potassium 5.1 [...] Performing Lab: see note ML - The [facility] LB UA (CLEAN or CATCH) LEAD PRESSMAN R[employer] GRAVURE PRINTING or M ICRO IF IND. Reviewed date:11/03/2024 11:57:49 AM Interpretation: Performing Lab: Notes/Report: [facility] , Color Urine LT. YELLOW YELLOW Clarity Urine CLEAR CLEAR Specific [place] Urine 1.025 1.005-1.025 pH Urine 5.5 5.0-9.0 Protein Urine NEGATIVE NEG/TRACE mg/dL Glucose Urine UA NEGATIVE NEGATIVE mg/dL Bilirubin Urine NEGATIVE NEGATIVE Ketones Urine NEGATIVE NEGATIVE mg/dL Blood Urine TRACE-I NEGATIVE Nitrite Urine NEGATIVE NEGATIVE Urobilinogen Urine 0.2 0.2-1.0 EU/dL Leukocyte Esterase Urine TRACE NEGATIVE Urine Microscopic Indicated YES Performing Lab: see note ML - [facility] LB URINE MICROSCOPIC ONLY Reviewed date:11/03/2024 11:57:49 AM Interpretation: Performing Lab: Notes/Report: [facility] , WBC Urine 0-2 NONE SEEN #/HPF RBC Urine 2-5 0-2 #/HPF Bacteria Urine TRACE NONE SEEN #/HPF Mucus Urine NONE SEEN NONE SEEN Squamous Epithelial Cell Urine FEW NONE/RARE #/LPF Crystals Seen? None Seen None Seen #/HPF Cast Seen? SEEN NONE SEEN #/LPF Hyaline Casts Urine RARE Urine Culture Indicated NO Performing Lab: see note ML - [facility] LB Troponin I High Sensitivity Reviewed date:11/03/2024 11:57:49 AM Interpretation: Performing Lab: Notes/Report: [facility] , Troponin I High Sensitivity 11.4 4.0-76.1 pg/mL CUT-OFF POINTS HAVE BEEN ESTABLISHED BASED ON THE FOURTH UNIVERSAL DEFINITION OF MYOCARDIAL INFARCTION. THE UPPER REFERENCE LIMIT (URL) OF TROPONIN, DEFINED THE 99TH PERCENTILE OF cTnI DISTRIBUTION IN A REFERENCE POPULATION, HAS BEEN CONFIRMED THE DECISION THRESHOLD FOR LA DIAGNOSIS. 99TH PERCENTILE = 76.2 PG/ML NOTE: HIGH-SENSITIVITY TROPONIN ASSAY IS NOT INTENDED TO BE USED IN ISOLATION BUT SHOULD BE INTERPRETED IN CONJUNCTION WITH OTHER DIAGNOSTIC AND CLINICAL INFORMATION. Performing Lab: see note ML - [facility] LB ECG 12 lead Reviewed date:11/03/2024 11:57:49 AM Interpretation: Performing Lab: Notes/Report: Source Facility: [place] [address] Electrocardiograph Report Signed Patient: JEB RIDDLE MR#: [id number] : 1950 Acct:[id number] Age/Sex: 74 / M ADM Date: 11/02/24 Loc: ER Attending Dr: Ordering Physician: Shelby Haney Date of Service: 11/02/24 Procedure(s): ECG 12 lead Accession Number(s): [id number] cc: [facility] Test Date: 2024-11-02 Pat Name: JEB RIDDLE Department: Room: - Gender: Male Bellhop Service Captain: : 1950 Requested By: LAUREN GODWIN Order Number: [id number] Reading MD: JESSICA FORRESTER M.D. Measurements Intervals [place] Rate: 66 P: 44 WA: 162 QRS: 64 QRSD: 92 T: 34 QT: 394 QTc: 408 Interpretive Statements 1100 Sinus rhythm 1102 Sinus arrhythmia 9110 normal ECG Compared to ECG 09/03/2024 04:35:52 No significant changes Electronically Signed On 11-02-2024 17:39:15 EDT by JESSICA FORRESTER M.D. 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 Measurements Intervals [place] Rate: 66 P: 44 WA: 162 QRS: 64 QRSD: 92 T: 34 QT: 394 QTc: 408 Interpretive Statements 1100 Sinus rhythm 1102 Sinus arrhythmia 9110 normal ECG Compared to ECG 09/03/2024 04:35:52 No significant changes Electronically Johana d On 11-02-2024 17:39:15 EDT by JESSICA FORRESTER M.D. Dictated By: JESSICA FORRESTER Signed By: 11/02/24 1739 DD/ 1011 TD/TT: Small Business Sales Representative: CBC AUTO DIFF Reviewed date:11/14/2024 07:57:19 PM Interpretation: Performing Lab: Notes/Report: [facility] , White Blood Count 5.9 4.0-11.0 10 [...] 3/uL Performing Lab: see note ML - [facility] LB MAGNESIUM Reviewed date:11/14/2024 07:57:19 PM Interpretation: Performing Lab: Notes/Report: [facility] , Magnesium 1.4 1.8-2.4 mg/dL Performing Lab: see note - [facility] LB PROF 14(COMP METB) Reviewed date:11/14/2024 07:57:19 PM Interpretation: Performing Lab: Notes/Report: [facility] , Sodium 135 136-145 mmol/L Potassium 4.8 [...] 1.0 Performing Lab: see note ML - [facility] LB Troponin I High Sensitivity Reviewed date:11/14/2024 07:57:19 PM Interpretation: Performing Lab: Notes/Report: [facility] , Troponin I High Sensitivity 12.4 4.0-76.1 pg/mL CUT-OFF POINTS HAVE BEEN ESTABLISHED BASED ON THE FOURTH UNIVERSAL DEFINITION OF MYOCARDIAL INFARCTION. THE UPPER REFERENCE LIMIT (URL) OF TROPONIN, DEFINED THE 99TH PERCENTILE OF cTnI DISTRIBUTION IN A REFERENCE POPULATION, HAS BEEN CONFIRMED THE DECISION THRESHOLD FOR LA DIAGNOSIS. 99TH PERCENTILE = 76.2 PG/ML NOTE: HIGH-SENSITIVITY TROPONIN ASSAY IS NOT INTENDED TO BE USED IN ISOLATION BUT SHOULD BE INTERPRETED IN CONJUNCTION WITH OTHER DIAGNOSTIC AND CLINICAL INFORMATION. 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 Measurements Intervals [place] Rate: 76 P: 44 WA: 164 QRS: 59 QRSD: 92 T: 79 QT: 382 QTc: 412 Interpretive Statements 1100 Sinus rhythm 1102 Sinus arrhythmia 9110 normal ECG Compared to ECG 11/02/2024 10:11:13 No significant changes Electronically Signed On 11-14-2024 17:30:02 EDT by JESSICA FORRESTER M.D. 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 Measurements Intervals [place] Rate: 76 P: 44 WA: 164 QRS: 59 QRSD: 92 T: 79 QT: 382 QTc: 412 Interpretive Statements 1100 Sinus rhythm 1102 Sinus arrhythmia 9110 normal ECG Compared to ECG 11/02/2024 10:11:13 No significant changes Electronically Johana d On 11-14-2024 17:30:02 EDT by JESSICA FORRESTER M.D. Dictated By: JESSICA FORRESTER Signed By: 11/14/24 1730 DD/ 1029 TD/TT: Small Business Sales Representative: CT head/brain wo con Reviewed date:11/14/2024 07:57:19 PM Interpretation: Performing Lab: Notes/Report: Source Facility: [place] [address] [place] [address] CT Scan Report Signed Patient: JEB RIDDLE MR#: [id number] : 1950 Acct:[id number] Age/Sex: 74 / M ADM Date: 11/14/24 Loc: ER Attending Dr: Ordering Physician: Shelby Haney Date of Service: 11/14/24 Procedure(s): CT head/brain wo con Accession Number(s): [id number] cc: Lauren Godwin M.D. [place] [id number] Patient Name: JEB RIDDLE MRN: [id number] date: 1950 Sex: M Assigned Patient Location: ER Current Patient Location: ER Accession/Order Number: [id number] Exam Date: 11/14/2024 11:21 Report Date: 11/14/2024 [...] Ivonne Zavala M.D.11/14/2024 11:26 AM Dictation Location: [place] [address] Electronically authenticated by: [id number] Y Date: 11/14/2024 11:26 Dictated By: Ivonne Zavala M.D. Signed By: 11/14/24 1128 DD/ 1126 TD/TT: Small Business Sales Representative: [place] [address] CT Scan Report Signed Patient: JEB RIDDLE MR#: [id number] : 1950 Acct:[id number] Age/Sex: 74 / M ADM Date: 11/14/24 Loc: ER Attending Dr: Ordering Physician: Shelby Haney Date of Service: 11/14/24 Procedure(s): CT head/brain wo con Accession Number(s): [id number] cc: Lauren Godwin M.D. [place] [id number] Patient Name: JEB RIDDLE MRN: [id number] date: 1950 Sex: M Assigned Patient Location: ER Current Patient Location: ER Accession/Order Numb er: [id number] Exam Date: 11/14/2024 11:21 Report Date: 11/14/2024 11:26 At the request of: SHELBY HANEY MD Procedure: CT head/brain wo con CT BRAIN WITHOUT CONTRAST: CLINICAL HISTORY: dizziness. History of hypertension. COMPARISON: MRI 09/14/2024 TECHNIQUE: Contiguou s axial unenhanced images were obtained through [...] Ivonne Zavala M.D.11/14/2024 11:26 AM Dictation Location: [place] [address] Electronically authenticated by: [id number] Y Date: 11/14/2024 11:26 Dictated By: Ivonne Zavala M.D. Signed By: 11/14/24 1128 DD/ 1126 TD/TT: Small Business Sales Representative: BNP Reviewed date:11/25/2024 04:13:36 PM Interpretation: Performing Lab: Notes/Report: [facility] , NT Pro B Type Natriuretic Pept 579.0 <=1800.0 pg/mL Performing Lab: see note ML - The [facility] LB CARDIAC JEB ADMIT Reviewed date:11/25/2024 04:13:36 PM Interpretation: Performing Lab: Notes/Report: [facility] , Creatine Kinase 76 39-308 U/L Creatine Kinase MB 1.64 <=3.60 ng/mL Myoglobin 79 16-96 ng/mL Troponin I High Sensitivity 11.9 4.0-76.1 pg/mL CUT-OFF POINTS HAVE BEEN ESTABLISHED BASED ON THE FOURTH UNIVERSAL DEFINITION OF MYOCARDIAL INFARCTION. THE UPPER REFERENCE LIMIT (URL) OF TROPONIN, DEFINED THE 99TH PERCENTILE OF cTnI DISTRIBUTION IN A REFERENCE POPULATION, HAS BEEN CONFIRMED THE DECISION THRESHOLD FOR LA DIAGNOSIS. 99TH PERCENTILE = 76.2 PG/ML NOTE: HIGH-SENSITIVITY TROPONIN ASSAY IS NOT INTENDED TO BE USED IN ISOLATION BUT SHOULD BE INTERPRETED IN CONJUNCTION WITH OTHER DIAGNOSTIC AND CLINICAL INFORMATION. Performing Lab: see note ML - The [facility] LB CBC AUTO DIFF Reviewed date:11/25/2024 03:42:59 PM Interpretation: Performing Lab: Notes/Report: [facility] , White Blood Count 5.9 4.0-11.0 10 [...] Performing Lab: see note ML - The [facility] LB LIPASE Reviewed date:11/25/2024 06:16:15 PM Interpretation: Performing Lab: Notes/Report: [facility] , Lipase 31.0 16.0-77.0 U/L Performing Lab: see note ML - [facility] LB MAGNESIUM Reviewed date:11/25/2024 06:16:15 PM Interpretation: Performing Lab: Notes/Report: [facility] , Magnesium 1.3 1.8-2.4 mg/dL Performing Lab: see note ML - [facility] LB PROF 14(COMP METB) Reviewed date:11/25/2024 06:16:15 PM Interpretation: Performing Lab: Notes/Report: [facility] , Sodium 139 136-145 mmol/L Potassium [...] Performing Lab: see note ML - The [facility] LB Troponin I High Sensitivity Reviewed date:11/25/2024 06:16:15 PM Interpretation: Performing Lab: Notes/Report: [facility] , Troponin I High Sensitivity 10.0 4.0-76.1 pg/mL CUT-OFF POINTS HAVE BEEN ESTABLISHED BASED ON THE FOURTH UNIVERSAL DEFINITION OF MYOCARDIAL INFARCTION. THE UPPER REFERENCE LIMIT (URL) OF TROPONIN, DEFINED THE 99TH PERCENTILE OF cTnI DISTRIBUTION IN A REFERENCE POPULATION, HAS BEEN CONFIRMED THE DECISION THRESHOLD FOR LA DIAGNOSIS. 99TH PERCENTILE = 76.2 PG/ML NOTE: HIGH-SENSITIVITY TROPONIN ASSAY IS NOT INTENDED TO BE USED IN ISOLATION BUT SHOULD BE INTERPRETED IN CONJUNCTION WITH OTHER DIAGNOSTIC AND CLINICAL INFORMATION. Performing Lab: see note - The [facility] LB TSH W/ REFLEX FT4 Reviewed date:11/25/2024 06:16:15 PM Interpretation: Performing Lab: Notes/Report: [facility] , TSH W/ REFLEX FT4 2.290 0.358-3.740 uIU/mL Performing Lab: see note - The [facility] LB UA Micro, reflex to culture Reviewed date:11/25/2024 04:13:08 PM Interpretation: Performing Lab: Notes/Report: [facility] , Color Urine LT. YELLOW YELLOW Clarity Urine CLEAR CLEAR Specific [place] Urine 1.010 1.005-1.025 pH Urine 6.0 5.0-9.0 [...] NONE SEEN #/LPF Performing Lab: see note - The [facility] LB ECG 12 lead Reviewed date:11/26/2024 08:47:37 PM Interpretation: Performing Lab: Notes/Report: Source Facility: [place] [address] [place] [address] Electrocardiograph Report Signed Patient: JEB RIDDLE MR#: [id number] : 1950 Acct:[id number] Age/Sex: 74 / M ADM Date: 11/25/24 Loc: ER Attending Dr: Ordering Physician: Damian Fraga Date of Service: 11/25/24 Procedure(s): ECG 12 lead Accession Number(s): [id number] cc: [facility] Test Date: 2024-11-25 Pat Name: JEB RIDDLE Department: Room: - Gender: Male Bell[employer] Service Captain: : 1950 Requested By: 0953 Order Number: [id number] Vielka MD: JESSICA FORRESTER M.D. Measurements Intervals [place] Rate: 92 P: 66 WA: 176 QRS: 74 QRSD: 92 T: 73 QT: 360 QTc: 409 Interpretive Statements 1100 Sinus rhythm 9110 normal ECG Compared to ECG 11/14/2024 10:29:25 Sinus arrhythmia no longer present Electronically Signed On 11-26-2024 7:35:55 EDT by JESSICA FORRESTER M.D. 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 Measurements Intervals [place] Rate: 92 P: 66 WA: 176 QRS: 74 QRSD: 92 T: 73 QT: 360 QTc: 409 Interpretive Statements 1100 Sinus rhythm 9110 normal ECG Compared to ECG 11/14/2024 10:29:25 Sinus arrhythmia no longer present Electronically Johana d On 11-26-2024 7:35:55 EDT by JESSICA FORRESTER M.D. Dictated By: JESSICA FORRESTER Signed By: 11/26/24 0736 DD/ 1501 TD/TT: Small Business Sales Representative: PSA Total+% Free Reviewed date:12/01/2024 01:18:05 PM Interpretation: Performing Lab: Notes/Report: [facility] , Prostate Specific Ag 4.4 0.0-4.0 ng/mL Satnam ECLIA methodology. According to the [place] [employer], Serum PSA should decrease and [...] any other population of men. Performed at: [facility] [address] [id number] Methods Study Analyst: Greg Renee PhD, Phone: [phone] Performing Lab: see note [facility] LB PROF CHEM 8 (BAS METB) Reviewed date:12/01/2024 01:18:05 PM Interpretation: Performing Lab: Notes/Report: [facility] , Sodium 143 136-145 mmol/L Potassium 4.6 3.5-5.1 mmol/L Chloride 110 98-107 mmol/L Carbon Dioxide 23.0 21.0-32.0 mmol/L Anion Gap 14.6 Glucose 116 74-106 mg/dL Blood Urea Nitrogen 38.0 7.0-18.0 mg/dL Creatinine 1.47 0.70-1.30 mg/dL Estimated GFR ( [place] 57 >=60 mL/min/1.73m 2 Estimated GFR (Non- Ele 47 >=60 mL/min/1.73m 2 BUN Creatinine Ratio 25.9 Calcium 8.8 8.5-10.1 mg/dL Performing Lab: see note - [facility] Troponin I High Sensitivity Reviewed date:12/01/2024 01:18:05 PM Interpretation: Performing Lab: Notes/Report: [facility] , Troponin I High Sensitivity 17.3 4.0-76.1 pg/mL CUT-OFF POINTS HAVE BEEN ESTABLISHED BASED ON THE FOURTH UNIVERSAL DEFINITION OF MYOCARDIAL INFARCTION. THE UPPER REFERENCE LIMIT (URL) OF TROPONIN, DEFINED THE 99TH PERCENTILE OF cTnI DISTRIBUTION IN A REFERENCE POPULATION, HAS BEEN CONFIRMED THE DECISION THRESHOLD FOR LA DIAGNOSIS. 99TH PERCENTILE = 76.2 PG/ML NOTE: HIGH-SENSITIVITY TROPONIN ASSAY IS NOT INTENDED TO BE USED IN ISOLATION BUT SHOULD BE INTERPRETED IN CONJUNCTION WITH OTHER DIAGNOSTIC AND CLINICAL INFORMATION. Performing Lab: see note - [facility] CA echo doppler complete Reviewed date:12/18/2024 12:57:31 PM Interpretation: Performing Lab: Notes/Report: Source Facility: [place] [address] Cardiology Report Signed Patient: JEB RIDDLE MR#: [id number] : 1950 Acct:[id number] Age/Sex: 74 / M ADM Date: 12/18/24 Loc: CARD Attending Dr: Lauren Godwin M.D. Ordering Physician: Lauren Godwin M.D. Date of Service: 12/18/24 Procedure(s): CA echo doppler complete Accession Number(s): [id number] cc: Lauren Godwin M.D. Patient Name: JEB RIDDLE MR#: [id number] : 1950 Exam Date: 12/18/2024 Ordering Doctor: [...] Signed By: 12/18/24 1212 DD/ 1211 TD/TT: Small Business Sales Representative: [place] [address] Cardiology Report Signed Patient: JEB RIDDLE MR#: [id number] : 1950 Acct:[id number] Age/Sex: 74 / M ADM Date: 12/18/24 Loc: CARD Attending Dr: Yasmin Godwin M.D. Ordering Physician: Lauren Godwin M.D. Date of Service: 12/18/24 Procedure(s): CA ech o doppler complete Accession Number(s): [id number] cc: Lauren Godwin M.D. Patient Name: JEB RIDDLE MR#: [id number] : 1950 Exam Date: 12/18/2024 Ordering Doctor: [...] Gradient: 3 .23 mm[Hg] LVOT Area (cm2): 0. 90 m/s Peak Velocity (LVOT) : 0.90 m/s [...] Signed By: 12/18/24 1212 DD/ 1211 TD/TT: Small Business Sales Representative: CBC AUTO DIFF Reviewed date:01/16/2025 09:56:39 PM Interpretation: Performing Lab: Notes/Report: [facility] , White Blood Count 9.6 4.0-11.0 10 3/uL Red Blood Count 4.12 4.70-6.10 10 6/uL Hemoglobin 12.8 14.0-18.0 g/dL Hematocrit 38.9 42.0-54.0 % Mean Corpuscular Volume 94.4 80.0-94.0 fL Mean Corpuscular Hemoglobin 31.1 25.9-34.0 pg Mean Corpuscular HGB Conc 32.9 29.9-35.2 g/dL Red Cell Distribution Width 12.0 11.0-15.0 % Platelet Count 264 150-450 10 3/uL Mean Platelet Volume 10.4 9.5-13.5 fL Neutrophils Percent Auto 63.6 43.0-75.0 % Lymphocytes Percent Auto 23.8 20.5-60.0 % Monocytes Percent Auto 10.1 1.7-12.0 % Eosinophils Percent Auto 1.8 0.9-7.0 % Basophils Percent Auto 0.4 0.2-2.0 % Immature Granulocytes Pct Auto 0.3 0.0-0.5 % Neutrophils Absolute Auto 6.1 1.4-6.5 10 3/uL Lymphocytes Absolute Auto 2.3 1.2-3.8 10 3/uL Monocytes Absolute Auto 1.0 0.3-0.8 10 3/uL Eosinophils Absolute Auto 0.2 0.0-0.7 10 3/uL Basophils Absolute Auto 0.0 0.0-0.1 10 3/uL Immature Granulocytes Abs Auto 0.03 0.00-0.03 10 3/uL Performing Lab: see note ML - The [facility] FREE T3 Reviewed date:01/16/2025 09:56:39 PM Interpretation: Performing Lab: Notes/Report: [facility] , Free T3 2.16 2.18-3.98 pg/mL Performing Lab: see note ML - [facility] PROF 14(COMP METB) Reviewed date:01/16/2025 09:56:39 PM Interpretation: Performing Lab: Notes/Report: [facility] , Sodium 140 136-145 mmol/L Potassium 5.7 3.5-5.1 mmol/L Chloride 108 98-107 mmol/L Carbon Dioxide 24.3 21.0-32.0 mmol/L Anion Gap 13.4 Glucose 109 74-106 mg/dL Blood Urea Nitrogen 49.0 7.0-18.0 mg/dL Creatinine 1.39 0.70-1.30 mg/dL Estimated GFR ( A[place]da >60 >=60 mL/min/1.73m 2 Estimated GFR (Non- Lee 50 >=60 mL/min/1.73m 2 BUN Creatinine Ratio 35.3 Calcium 8.9 8.5-10.1 mg/dL Bilirubin Total 0.7 0.2-1.0 mg/dL Aspartate Amino Transferase 13 15-37 U/L Alanine Aminotransferase 26 16-63 U/L Alkaline Phosphatase 75 46-116 U/L Total Protein 6.7 6.4-8.2 g/dL Albumin Level 3.6 3.4-5.0 g/dL Globulin 3.1 Albumin Globulin Ratio 1.2 Performing Lab: see note ML - [facility] LB T4 Reviewed date:01/16/2025 09:56:39 PM Interpretation: Performing Lab: Notes/Report: [facility] , T4 Thyroxine 5.50 4.50-12.10 ug/dL Performing Lab: see note ML - The [facility] LB TSH Reviewed date:01/16/2025 09:56:39 PM Interpretation: Performing Lab: Notes/Report: [facility] , Thyroid Stimulating Hormone 2.058 0.358-3.740 uIU/mL Performing Lab: see note ML - The [facility] LB ECG 12 lead Reviewed date:12/01/2024 01:18:05 PM Interpretation: Performing Lab: Notes/Report: Source Facility: [place] [address] [place] [address] Electrocardiograph Report Signed Patient: JEB RIDDLE MR#: [id number] : 1950 Acct:[id number] Age/Sex: 74 / M ADM Date: 11/30/24 Loc: ER Attending Dr: Ordering Physician: Jose Alberto Worley M.D. Date of Service: 11/30/24 Procedure(s): ECG 12 lead Accession Number(s): [id number] cc: [facility] Test Date: 2024-11-30 Pat Name: JEB RIDDLE Department: Room: - Gender: Male Bell[employer] Service Captain: : 1950 Requested By: 1030 Order Number: [id number] Reading MD: JESSICA FORRESTER M.D. Measurements Intervals [place] Rate: 108 P: 69 WA: 166 QRS: 63 QRSD: 90 T: 80 QT: 340 QTc: 403 Interpretive Statements 1120 Sinus tachycardia Otherwise normal ECG Compared to ECG 11/25/2024 15:01:12 No significant changes Electronically Signed On 11-30-2024 11:55:03 EDT by JESSICA FORRESTER M.D. Dictated By: JESSICA FORRESTER Signed By: 11/30/24 1155 DD/ 0712 TD/TT: Small Business Sales Representative: [place] [address] Electrocardiograph Report Signed Patient: JEB RIDDLE MR#: [id number] : 1950 Acct:[id number] Age/Sex: 74 / M ADM Date: 11/30/24 Loc: ER Attending Dr: Ordering Physician: Jose Alberto Worley M.D. Date of Service: 11/30/24 Procedure(s): ECG 12 lead Accession Number(s): [id number] cc: [facility] Test Date: 2024-11-30 Pat Name: JEB RIDDLE Department: 54 Room: - Gender: Male Bell[employer] Service Captain: : 1950 Requested By: 1030 Order Number: [id number] Reading MD: JESSICA FORRESTER M.D. Measurements Intervals [place] Rate: 108 P: 69 WA: 166 QRS: 63 QRSD: 90 T: 80 QT: 340 QTc: 403 Interpretive Statements 1120 Sinus tachycardia Otherwise normal ECG Compared to ECG 11/25/2024 15:01:12 No significant changes Electronically Johana d On 11-30-2024 11:55:03 EDT by JESSICA FORRESTER M.D. Dictated By: JESSICA FORRESTER Signed By: 11/30/24 1155 DD/ 0712 TD/TT: Small Business Sales Representative: CBC AUTO DIFF Reviewed date:12/01/2024 01:18:05 PM Interpretation: Performing Lab: Notes/Report: [facility] , White Blood Count 9.0 4.0-11.0 10 [...] 3/uL Performing Lab: see note ML - [facility] LB UA Micro, reflex to culture Reviewed date:11/14/2024 07:57:19 PM Interpretation: Performing Lab: Notes/Report: [facility] , Color Urine LT. YELLOW YELLOW Clarity Urine CLEAR CLEAR Specific [place] Urine <=1.005 1.005-1.025 pH Urine 6.0 5.0-9.0 [...] Performing Lab: see note ML - The [facility] LB Troponin I High Sensitivity Reviewed date:11/03/2024 11:57:49 AM Interpretation: Performing Lab: Notes/Report: [facility] , Troponin I High Sensitivity 12.3 4.0-76.1 pg/mL CUT-OFF POINTS HAVE BEEN ESTABLISHED BASED ON THE FOURTH UNIVERSAL DEFINITION OF MYOCARDIAL INFARCTION. THE UPPER REFERENCE LIMIT (URL) OF TROPONIN, DEFINED THE 99TH PERCENTILE OF cTnI DISTRIBUTION IN A REFERENCE POPULATION, HAS BEEN CONFIRMED THE DECISION THRESHOLD FOR LA DIAGNOSIS. 99TH PERCENTILE = 76.2 PG/ML NOTE: HIGH-SENSITIVITY TROPONIN ASSAY IS NOT INTENDED TO BE USED IN ISOLATION BUT SHOULD BE INTERPRETED IN CONJUNCTION WITH OTHER DIAGNOSTIC AND CLINICAL INFORMATION. Performing Lab: see note ML - [facility] LB Prothrombin Time INR Reviewed date:11/03/2024 11:57:49 AM Interpretation: Performing Lab: Notes/Report: [facility] , Prothrombin Time 11.4 9.0-11.6 sec INR 1.08 DESIRED INR: 2.0-3.0 CONDITIONS NOT LISTED BELOW 2.5-3.5 FOR PROSTHETIC HEART VALVE REPLACEMENT 2.5-3.5 RECURRENT THROMBOSIS Performing Lab: see note ML - [facility] LB TSH Reviewed date:10/23/2024 03:58:06 PM Interpretation: Performing Lab: Notes/Report: [facility] , Thyroid Stimulating Hormone 3.214 0.358-3.740 uIU/mL Performing Lab: see note - [facility] LB T4 Reviewed date:10/23/2024 03:58:06 PM Interpretation: Performing Lab: Notes/Report: [facility] , T4 Thyroxine 5.60 4.50-12.10 ug/dL Performing Lab: see note - [facility] PROF 14(COMP METB) Reviewed date:10/23/2024 03:58:06 PM Interpretation: Performing Lab: Notes/Report: [facility] , Sodium 139 136-145 mmol/L Potassium 4.9 [...] Performing Lab: see note ML - The [facility] LB FREE T3 Reviewed date:10/23/2024 03:58:06 PM Interpretation: Performing Lab: Notes/Report: [facility] , Free T3 2.65 2.18-3.98 pg/mL Performing Lab: see note ML - [facility] LB PROF CHEM 8 (BAS METB) Reviewed date:09/03/2024 01:52:37 PM Interpretation: Performing Lab: Notes/Report: [facility] , Sodium 142 136-145 mmol/L Potassium [...] Performing Lab: see note ML - The [facility] LB CBC AUTO DIFF Reviewed date:09/03/2024 01:52:37 PM Interpretation: Performing Lab: Notes/Report: [facility] , White Blood Count 6.9 4.0-11.0 [...] Performing Lab: see note ML - The [facility] LB CT stroke head/brain wo con Reviewed date:09/02/2024 02:45:20 PM Interpretation: Performing Lab: Notes/Report: Source Facility: [place] [address] CT Scan Report Signed Patient: JEB RIDDLE MR#: [id number] : 1950 Acct:[id number] Age/Sex: 73 / M ADM Date: 08/31/24 Loc: ICU 270-[address]: Lauren Godwin M.D. Ordering Physician: Namita Hendrix NP Date of Service: 09/01/24 Procedure(s): CT stroke head/brain wo con Accession Number(s): [id number] cc: Lauren Godwin M.D. [place] [address] Patient Name: JEB RIDDLE MRN: [id number] date: 1950 Sex: M Assigned Patient Location: ICU Current Patient Location: ICU Accession/Order Number: [id number] Exam Date: 09/01/2024 01:00 Report Date: 09/01/2024 [...] Signed By: 09/01/24 0130 DD/ 0127 TD/TT: Small Business Sales Representative: [place] [address] CT Scan Report Signed Patient: JEB RIDDLE MR#: [id number] : 1950 Acct:[id number] Age/Sex: 73 / M ADM Date: 08/31/24 Loc: ICU 270-[address]: Yasmin Godwin M.D. Ordering Physician: Namita Hendrix NP Date of Service: 09/01/24 Procedure(s): CT str nadja head/brain wo con Accession Number(s): [id number] cc: Lauren Godwin M.D. The [place] [id number] Patient Name: JEB RIDDLE MRN: [id number] date: 1950 Sex: M Assigned Patient Location: ICU Current Patient Location: ICU Accession/Order Numb er: [id number] Exam Date: 09/01/2024 01:00 Report Date: 09/01/2024 [...] CRAMER Date: 09/01/2024 01:27 Dictated By: Destini Cramre M.D. Signed By: 09/01/24 0130 DD/ 0127 TD/TT: Small Business Sales Representative: Troponin I High Sensitivity Reviewed date:09/02/2024 02:45:20 PM Interpretation: Performing Lab: Notes/Report: [facility] , Troponin I High Sensitivity 599.4 4.0-76.1 pg/mL RESULTS CALLED TO ICU Shani Coyne RN @BY Nicholas Amezquita MT at 0680 CUT-OFF POINTS HAVE BEEN ESTABLISHED BASED ON THE FOURTH UNIVERSAL DEFINITION OF MYOCARDIAL INFARCTION. THE UPPER REFERENCE LIMIT (URL) OF TROPONIN, DEFINED THE 99TH PERCENTILE OF cTnI DISTRIBUTION IN A REFERENCE POPULATION, HAS BEEN CONFIRMED THE DECISION THRESHOLD FOR LA DIAGNOSIS. 99TH PERCENTILE = 76.2 PG/ML NOTE: HIGH-SENSITIVITY TROPONIN ASSAY IS NOT INTENDED TO BE USED IN ISOLATION BUT SHOULD BE INTERPRETED IN CONJUNCTION WITH OTHER DIAGNOSTIC AND CLINICAL INFORMATION. Performing Lab: see note ML - [facility] LB PROF CHEM 8 (BAS METB) Reviewed date:09/02/2024 02:45:20 PM Interpretation: Performing Lab: Notes/Report: [facility] , Sodium 140 136-145 mmol/L Potassium 4.7 [...] Performing Lab: see note ML - The [facility] LB CBC AUTO DIFF Reviewed date:09/02/2024 02:45:20 PM Interpretation: Performing Lab: Notes/Report: [facility] , White Blood Count 13.1 4.0-11.0 10 [...] 3/uL Performing Lab: see note ML - [facility] LB Prothrombin Time INR Reviewed date:09/02/2024 02:45:21 PM Interpretation: Performing Lab: Notes/Report: [facility] , Prothrombin Time 11.4 9.0-11.6 sec INR 1.08 DESIRED INR: 2.0-3.0 CONDITIONS NOT LISTED BELOW 2.5-3.5 FOR PROSTHETIC HEART VALVE REPLACEMENT 2.5-3.5 RECURRENT THROMBOSIS Performing Lab: see note - [facility] LB PTT Reviewed date:09/02/2024 02:45:21 PM Interpretation: Performing Lab: Notes/Report: [facility] , Partial Thromboplastin Time 26.1 22.3-36.2 sec Performing Lab: see note - [facility] MAGNESIUM Reviewed date:08/31/2024 09:11:51 AM Interpretation: Performing Lab: Notes/Report: [facility] , Magnesium 1.5 1.8-2.4 mg/dL Performing Lab: see note - [facility] LB CBC AUTO DIFF Reviewed date:08/31/2024 09:11:51 AM Interpretation: Performing Lab: Notes/Report: [facility] , White Blood Count 8.5 4.0-11.0 10 [...] Performing Lab: see note ML - The [facility] LB CBC AUTO DIFF Reviewed date:08/31/2024 09:11:51 AM Interpretation: Performing Lab: Notes/Report: [facility] , White Blood Count 8.0 4.0-11.0 10 [...] 0.00-0.03 10 3/uL Performing Lab: see note [facility] LAB TESTING Reviewed date:04/16/2024 02:17:56 PM Interpretation: Performing Lab: Notes/Report: [id number] Plasminogen Act Inhibitor-1,Ag [facility] , Miscellaneous Test COMMENT . Test Ordered: [id number] Plasminogen Act Inhibitor-1,Ag Plasminogen Act Inhibitor-1,Ag 19.4 ng/mL Reference Range: 4.0-43.0 Performed at: [facility] [address] [id number] Methods Study Analyst: Erin Ellison MD, Phone: [phone] Performed at: [facility] [address] [id number] Methods Study Analyst: Greg Renee PhD, Phone: [phone] Performing Lab: see note [facility] LB FIBRINOGEN Reviewed date:04/12/2024 04:27:00 PM Interpretation: Performing Lab: Notes/Report: [facility] , Fibrinogen 401 200-400 mg/dL Performing Lab: see note [facility] CBC AUTO DIFF Reviewed date:10/23/2024 03:58:06 PM Interpretation: Performing Lab: Notes/Report: [facility] , White Blood Count 6.1 4.0-11.0 10 [...] Performing Lab: see note ML - The [facility] LB UA DIP NONAUTO WO MICRO (810 02) - IN OFFICE Reviewed date:10/23/2024 03:58:06 PM Interpretation: Performing Lab: Notes/Report: COLOR yellow CLARITY clear GLUCOSE neg BILIRUBIN neg KETONE neg SPECIFIC GRAVITY 1.015 BLOOD LARGE PH 5 PROTEIN TRACE UROBILINOGEN neg NITRITE neg LEUKOCYTE ESTERASE TRACE Reason For Referral Diagnosis 1 Crohn disease (K50.9 0) Referral Organization [facility] Referring Provider First Name Jack Referring Provider Last Name [facility] Referring Provider [facility] Referred Provider Robert Schofield Referred Provider Specialty Gastroentero logy Referral Priority Routine Diagnosis 1 Syncope (R55) Diagnosis 2 Seizure (R56.9) Referral Organization [facility] Referring Provider First Name Jack Referring Provider Last Name [facility] Referring Provider [facility] Referred Provider [facility] Referred Provider Specialty Neurology Referral Priority Routine Diagnosis 1 Sebaceous cyst (L72. 3) Referral Organization [facility] Referring Provider First Name Jack Referring Provider Last Name Tato Referring Provider Speciality Family Med emir Referred Provider Destini Kent Referred Provider Specialty General Surg orion Referral Priority Routine Medications Medication SIG (Take, Route, Frequency, Duration) Notes Start Date End Date Status cloNIDine HCl 0.1 MG 2 tablet Orally bid for 30 days Active Crestor Active Isosorbide Mononitrate ER 30 MG TAKE 1 TABLET EVERY MORNING for 90 Active Topiramate 50 MG TAKE [...] Status W/U Status Risk Notes Problem Hypomagnesemia (244875669) Hypomagnesemia (E83.42) Active confirmed Problem Hypocalcemia (2525487) Hypocalcemia (E83.51) Active confirmed Problem Unstable angina (7375342) Unstable angina (I20.0) Active confirmed Problem 5997031 Supraventricular tachycardia (I47.1) Active confirmed Problem 560398514 Occlusion and stenosis of bilateral carotid arteries (I65.23) Active confirmed Problem Abdominal pain (14607472) Abdominal pain (R10.9) Active confirmed Problem Chest pain (68613745) Chest pain (R07.9) Active confirmed Problem Fatigue (91030823) Fatigue (R53.83) Active conf irmed Problem Hypertension (89594537) Hypertension (I10) Active confirmed Problem Pulmonary embolism (10018107) Pulmonary embolism (I26.99) Active confirmed Problem Anxiety (84804093) Anxiety (F41.9) Active confi rmed Problem Tremor (95483851) Tremor (R25.1) Active confirm ed Problem Depression (058992953) Depression (F32.9) Active confirmed Problem Dyspnea (785518500) Dyspnea (R06.00) Active con firmed Problem Insomnia (471127729) Insomnia (G47.00) Active confirmed Problem Syncope (447553296) Syncope (R55) Active confir med Problem Generalized anxiety disorder (82773247) NADIYA (generalized anxiety disorder) (F41.1) Active confirmed Problem Colitis (57607181) Colitis (K52.9) Active confi rmed Problem Essential hypertension (03737919) Hypertension, uncontrolled (I10) Active confirmed Problem Pain in limb (98459116) Thumb pain, left (M79.645) Active confirmed Problem Iron deficiency anemia (05145779) Anemia, iron deficiency (D50.9) Active confirmed Problem Crohn disease (09333746) Crohn disease (K50.90) Active confirmed Problem Nonsustained paroxysmal supraventricular tachycardia (9687237431332) Supraventricular tachycardia, nonsustained (I47.9) Active confirmed Problem Elevated blood pressure (59772767) Blood pressure elevated (I10) Active confirmed Problem Essential hypertension (04968911) BP (high blood pressure) (I10) Active confirmed Problem Thrombophlebitis of deep veins of lower extremity (22868238) Deep vein thrombophlebitis of left leg (I80.202) Active confirmed Problem 58514298 Ventricular tachycardia, unspecified (I47.20) Active confirmed Vital [...] N/A Encounters Encounter Location Date Provider Diagnosis [facility] [address] [facility] [place] [address] 04/05/2024 Jack Godwin [facility] [address] [facility] [place] [address] 04/17/2024 Jack Godwin Hypertension I10 [facility] [address] [facility] [place] [address] 04/22/2024 Jack Godwin Elevated PSA R97.20 [facility] [address] [facility] [place] [address] 04/29/2024 Jack Godwin Elevated PSA R97.20 [facility] [address] [facility] [place] [address] 06/29/2024 Jack Godwin [facility] [address] [facility] [place] [address] 08/09/2024 Jack Godwin Syncope R55 [facility] [address] [facility] [place] [address] 08/16/2024 Jack Godwin Deep vein thrombophl ebitis of left leg I80.202 [facility] [address] [facility] [place] [address] 09/03/2024 Jack Godwin [facility] [address] [facility] [place] [address] 09/04/2024 Jack Godwin [facility] [address] [facility] [place] [address] 09/15/2024 Jack Godwin [facility] [address] [facility] [place] [address] 10/09/2024 Jack Godwin [facility] [address] [facility] [place] [address] 10/23/2024 Jack Godwin [facility] [address] [facility] [place] [address] 10/25/2024 Jack Godwin [facility] [address] [place] [address] 10/28/2024 Jack Tato [facility] [address] [place] [facility] [address] 11/07/2024 Jack Godwin Deep vein thrombophl ebitis of left leg I80.202 [facility] [address] [place] [facility] [address] 11/07/2024 Jack Godwin [facility] [address] [place] [address] 11/26/2024 Jack Tato [facility] [address] [place] [facility] [address] 12/03/2024 Jack Godwin [facility] [address] [place] [facility] [address] 12/18/2024 Jack Godwin Depression F32.9 [facility] [address] [place] [facility] [place] [address] 01/09/2025 Jack Godwin Hypertension I10 [facility] [address] [place] [facility] [place] [address] 01/09/2025 Jack Godwin [facility] [address] [place] [facility] [address] 01/16/2025 Jack Godwin [facility] [address] [facility] [place] [address] 02/01/2025 Jack Gowdin [facility] [address] [place] [facility] [place] [address] 03/21/2025 Jack Godwin Anemia, iron deficie ncy D50.9 and Hyperkalemia E87.5 [facility] [address] [place] [facility] [address] 03/26/2024 Jack Godwin Crohn disease K50.90 and Pulmonary embolism I26.99 [facility] [address] [place] [facility] [place] [address] 04/19/2024 Jack Godwin Pulmonary embolism I 26.99 and Deep vein thrombophlebitis of left leg I80.202 [facility] [address] [place] [address] 08/13/2024 Jack Hoy Hypertension I10 ; Insomnia G47.00 and Syncope R55 [place] [address] [place] [address] 09/07/2024 Jack Hoy Chest pain R07.9 and Supraventricular tachycardia, nonsustained I47.9 [place] [address] [place] [address] 10/23/2024 Jack Hoy Increased urinary frequency R35.0 ; Supraventricular tachycardia, nonsustained I47.9 ; Blood pressure elevated I10 ; UTI (urinary tract infection), uncomplicated N39.0 ; Dysuria R30.0 and Sebaceous cyst L72.[address] [address] 11/13/2024 Jack Hoy Hypertension I10 and Supraventricular tachycardia I47.[address] [address] 11/28/2024 Jack Hoy Unstable angina I20. 0 ; PSA elevation R97.20 ; Anxiety F41.9 ; Depression F32.9 and Dyspnea R06.[address] [address] 01/16/2025 Jack Hoy Hypertension I10 ; F atigue R53.83 and Dyspnea R06.00 Assessments Encounter Date Diagnosis (ICD Code) Assessment Notes Treatment Notes Treatment Clinical Notes Section Notes 03/26/2024 Crohn disease (ICD-10 - K50.90) 03/26/2024 [...] - I10) 01/16/2025 Fatigue (ICD-10 - R53.83) 04/17/2024 Hypertension (ICD-10 - I10) 04/22/2024 Elevated PSA (ICD-10 - R97.20) 04/29/2024 Elevated PSA (ICD-10 - R97.20) 08/09/2024 Syncope (ICD-10 - R55) 08/16/2024 Deep vein thrombophlebitis of left leg (ICD-10 - I80.202) 11/07/2024 Deep vein thrombophlebitis of left leg (ICD-10 - I80.202) 12/18/2024 Depression (ICD-10 - F32.9) 01/09/2025 Hypertension (ICD-10 - I10) 03/21/2025 Anemia, iron deficiency (ICD-10 - D50.9) 03/21/2025 Hyperkalemia (ICD-10 - E87.5) 01/16/2025 Dyspnea (ICD-10 - R06.00) 11/28/2024 Anxiety [...] until they are finished. You can use [id number] acetaminophen or ibuprofen if needed for pain. You should follow up with your Primary Care Physician or return to clinic if not improving in the next 3-5 days. 08/13/2024 Syncope (ICD-10 - R55) 10/23/2024 Dysuria (ICD-10 - R30.0) 11/28/2024 Depression (ICD-10 - F32.9) 11/28/2024 Dyspnea (ICD-10 - R06.00) 10/23/2024 Sebaceous cyst (ICD-10 - L72.3) Plan Of Treatment Pending Test Test Name Order Date Exercise Stress Nuclear Test 03/07/2023 Holter Test 02/28/2023 IRON, TOTAL 10/23/2024 EEG 08/09/2024 CARDIO Echocardiogram 11/28/2024 PSA-FREE AND TOTAL 11/28/2024 EEG (Sleep Deprived) 08/13/2024 PSA, TOTAL 04/19/2024 CA 19-9 04/19/2024 CBC AUTO DIFF 03/21/2025 CEA 04/19/2024 CULTURE WOUND 10/23/2024 PROF 14(COMP METB) 03/21/2025 MRI BRAIN WO CON 08/13/2024 US CAROTID ART AZ 02/28/2023 US MARCO DOP LEG LT 11/07/2024 US MARCO DOP LEG LT 02/21/2024 XR HAND LT MIN 3V 03/07/2023 THYROID PANEL (T4/TSH/FREE T3) THYROID PANEL (T4/TSH/FREE T3) 5 ECHOCARDIO M/2D COMPLETE 03/07/2023 ECHOCARDIO M/2D COMPLETE 02/28/2023 Free PSA 04/22/2024 Free PSA 04/29/2024 PSA Total+% Free 04/29/2024 *CARDIO Stress Test - Treadmill Exercise 09/07/2024 CMP (COMP MET MCCLURE) w/eGFR CKD-EPI 2024 CMP (COMP MET MCCLURE) w/eGFR CKD-EPI 2024 CBC WITH DIFF 01/16/2025 Next Appt Details Provider Name:Jack Godwin, 08:30:00 AM, [address] [facility], [place], [address], Insurance Providers Payer Name Payer Address Payer Phone Subscriber Number Group Number Insured Name Patient Relationship to Insured Coverage Start Date Coverage End Date [employer] MED[employer]ARE ADV PLAN [address] [address] [place] [address] [id number] Jeb Riddle Self - patient is the insured 8 Medical (General) History Medical History History ICD Code Anxiety F41.9 Hypertension I10 Crohn disease K50.90 Surgical History Surgery Date(Month/Year) Crohns- bowel resection, 8ft taken out TONSILLECTOMY,UNDER 12YRS Hospitalization History Reason Date(Month/Year) bowel obstruction 08/2023 heart cath 2022
--- OUTSIDE RECORDS SUMMARY | 2025-03-21 16:48 | XMS_ITS | Clinical Summary ---
Author Organization [employer] tem Address [id number] [address] [place] [address] Care Team Providers Care Education General Manager Name Role Phone Rodriguez Godwin MD Primary Care Provider [phone] Allergies No known active allergies Medications lisinopriL [...] 09/14/2023 Medical Devices Not on file Insurance [facility] [employer] [facility] MEDICARE Care Teams Education General Manager Relationship Specialty Start Date End Date Rodriguez Godwin MD [address] [facility], [place] [address] PCP - General Family Medicine 08/09/24
[2025-03-21 17:07] LABS: Hematocrit 36.6 % (42.0-54.0); Hemoglobin 12.3 g/dL (14.0-18.0); Immature Granulocytes Abs Auto 0.02 10^3/uL (0.00-0.03); Immature Granulocytes Pct Auto 0.3 % (0.0-0.5); Lymphocytes Absolute Auto 2.4 10^3/uL (1.2-3.8); Mean Corpuscular HGB Conc 33.6 g/dL (29.9-35.2); Mean Corpuscular Hemoglobin 30.8 pg (25.9-34.0); Mean Corpuscular Volume 91.7 fL (80.0-94.0); Platelet Count 240 10^3/uL (150-450); Red Blood Count 3.99 10^6/uL (4.70-6.10); White Blood Count 7.3 10^3/uL (4.0-11.0)
[2025-03-21 17:25] LABS: Alanine Aminotransferase 35 U/L (16-63); Albumin Globulin Ratio 1.1; Albumin Level 3.6 g/dL (3.4-5.0); Alkaline Phosphatase 77 U/L (46-116); Anion Gap 10.7; Aspartate Amino Transferase 22 U/L (15-37); Blood Urea Nitrogen 30.0 mg/dL (7.0-18.0); Calcium 8.8 mg/dL (8.5-10.1); Carbon Dioxide 26.1 mmol/L (21.0-32.0); Chloride 106 mmol/L (98-107); Estimated GFR (African America >60 (>=60 mL/min/1.73m^2); Estimated GFR (Non-African Ame 52 (>=60 mL/min/1.73m^2); Globulin 3.4 g/dL; Glucose 94 mg/dL (74-106); Potassium 4.8 mmol/L (3.5-5.1); Sodium 138 mmol/L (136-145); Total Protein 7.0 g/dL (6.4-8.2)
== END 2025-03-21 16:44 | disposition home or self-care (01) ==
PROVIDERS: Family Provider Family Medicine; PCP Family Medicine; Visit Provider Family Medicine
DX: D50.9 Iron deficiency anemia, unspecified (principal); E87.5 Hyperkalemia
CPT/HCPCS: 36415; 80053; 85025

== ENCOUNTER 2025-04-21 21:25 | Inpatient (IN) | payer MEDICARE, SELFPAY ==
--- OUTSIDE RECORDS SUMMARY | 2025-02-01 11:22 | XMS_ITS ---
Author Organization [facility] in [place] Address [address] [place] [address] Care Team Providers Care Bag Machine Tender Name Role Phone Jack Godwin Primary Care Provider Encounters Encounter Location Date Provider Diagnosis [facility] [address] [facility] [place] [address] 02/01/2025 Jack Godwin Plan Of Treatment No Information Progress Notes * Clark RIDDLE RDOB:1950 (74 yo M)Acc No.[id number]:02/01/2025 Patient: Blanca HOUClark :1950 A ge:74 Y S ex:Male Address:[address], [place] [address] * true * Date: Generated for Printi ng/Faxing/eTransmitting on: 0 04/21/2025 09:32 PM EDT
--- OUTSIDE RECORDS SUMMARY | 2025-03-21 11:38 | XMS_ITS ---
Author Organization [facility] in [place] Address [address] [place] [address] Care Team Providers Care Dinkey Engine Mechanic Name Role Phone Jack Godwin Primary Care Provider [phone] Results Component Value Reference Range Notes CBC AUTO DIFF Reviewed date:03/21/2025 10:21:21 PM Interpretation: Performing Lab: Notes/Report: [facility] , White Blood Count 7.3 4.0-11.0 10 3/uL Red Blood Count 3.99 4.70-6.10 10 6/uL Hemoglobin 12.3 14.0-18.0 g/dL Hematocrit 36.6 42.0-54.0 % Mean Corpuscular Volume 91.7 80.0-94.0 fL Mean Corpuscular Hemoglobin 30.8 25.9-34.0 pg Mean Corpuscular HGB Conc 33.6 29.9-35.2 g/dL Red Cell Distribution Width 12.7 11.0-15.0 % Platelet Count 240 150-450 10 3/uL Mean Platelet Volume 10.0 9.5-13.5 fL Neutrophils Percent Auto 52.3 43.0-75.0 % Lymphocytes Percent Auto 32.7 20.5-60.0 % Monocytes Percent Auto 11.5 1.7-12.0 % Eosinophils Percent Auto 2.7 0.9-7.0 % Basophils Percent Auto 0.5 0.2-2.0 % Immature Granulocytes Pct Auto 0.3 0.0-0.5 % Neutrophils Absolute Auto 3.8 1.4-6.5 10 3/uL Lymphocytes Absolute Auto 2.4 1.2-3.8 10 3/uL Monocytes Absolute Auto 0.8 0.3-0.8 10 3/uL Eosinophils Absolute Auto 0.2 0.0-0.7 10 3/uL Basophils Absolute Auto 0.0 0.0-0.1 10 3/uL Immature Granulocytes Abs Auto 0.02 0.00-0.03 10 3/uL Performing Lab: see note ML - [facility] LB PROF 14(COMP METB) Reviewed date:03/21/2025 10:21:21 PM Interpretation: Performing Lab: Notes/Report: [facility] , Sodium 138 136-145 mmol/L Potassium 4.8 3.5-5.1 mmol/L Chloride 106 98-107 mmol/L Carbon Dioxide 26.1 21.0-32.0 mmol/L Anion Gap 10.7 Glucose 94 74-106 mg/dL Blood Urea Nitrogen 30.0 7.0-18.0 mg/dL Creatinine 1.33 0.70-1.30 mg/dL Estimated GFR ( Aleyda >60 >=60 mL/mi n/1.73m 2 Estimated GFR (Non- Ele 52 >=60 mL/mi n/1.73m 2 BUN Creatinine Ratio 22.6 Calcium 8.8 8.5-10.1 mg/dL Bilirubin Total 0.5 0.2-1.0 mg/dL Aspartate Amino Transferase 22 15-37 U/L Alanine Aminotransferase 35 16-63 U/L Alkaline Phosphatase 77 46-116 U/L Total Protein 7.0 6.4-8.2 g/dL Albumin Level 3.6 3.4-5.0 g/dL Globulin 3.4 Albumin Globulin Ratio 1.1 Performing Lab: see note ML - [facility] LB REASON FOR VISIT wants labs Encounters Encounter Location Date Provider Diagnosis [facility] [address] [place] [address] 03/21/2025 Jack Godwin Anemia, iron deficie ncy D50.9 and Hyperkalemia E87.5 Assessments Encounter Date Diagnosis (ICD Code) Assessment Notes Treatment Notes Treatment Clinical Notes Section Notes 03/21/2025 Anemia, iron deficiency (ICD-10 - D50.9) 03/21/2025 Hyperkalemia (ICD-10 - E87.5) Plan Of Treatment No Information Progress Notes * Clark RIDDLE RDOB:1950 (74 yo M)Acc No.[id number]:03/21/2025 Patient: Clark MENDOZA :1950 A ge:74 Y S ex:Male Address:[address] [place] [address], [place] [address] Subjective: * Chief Complaints: * W ants labs * Medical History: * Surgical History: * Hospitalization/Major Diagno stic Procedure: * Medications: Objective: * Vitals: * Physical Examination: Assessment: * Assessment: 1. A nemia, iron deficiency - D50.9 (Primary) 2 . H yperkalemia - E87.5? Plan: * Treatment: 2. H yperkalemia L AB: CBC AUTO DIFF L AB: PROF 14(COMP METB) * Procedure Codes: * true * Date: Generated for Printi ng/Mahad/eTransmitting on: 0 04/21/2025 09:33 PM EDT
--- OUTSIDE RECORDS SUMMARY | 2025-03-22 04:30 | XMS_ITS ---
Author Organization [facility] in [place] Address [address] [place] [address] Care Team Providers Care Tea Tree Farmer Name Role Phone Jack Godwin Primary Care Provider Allergies Allergen (clinical drug ingredient) Drug/Non Drug Allergy documented on EMR Reaction Allergy Type Onset Date Status Seafood Seafood (uncoded) GI issues Allergy Ac tive REASON FOR VISIT weak,, didnt take AM meds yet, labs yesterday Medications Medication SIG (Take, Route, Frequency, Duration) Notes Start Date End Date Status Aspirin 81 81 MG 1 tablet Orally Once a day Active Ativan 1 MG 1 tablet F 41.9 Orally bid for 7 days As needed 01/09/2025 Active Celecoxib 200 MG 1 capsule with food Orally Once a day for 30 day(s) 02/21/2024 Active cloNIDine HCl 0.1 MG 2 tablet Orally bid for 30 days Active Topiramate 50 MG TAKE 1 TABLET BY OZIEL TH EVERY DAY FOR 30 DAYS for 30 Active Crestor Active Isosorbide Mononitrate ER 30 MG TAKE 1 TABLET EVERY MORNING for 90 Active Sunosi 150 MG 1 tablet in the morn ing Orally Once a day 03/22/2025 Active Social History Tobacco Use: Social History [...] Problem Status W/U Status Risk Notes Problem Seizure (79902967) Unspecified convulsions (R56.9) Active confirmed Problem Obstructive sleep apnea syndrome (61835442) TON on CPAP (G47.33) Active confirmed Vital Signs Weight 190.6 lbs 03/22/2025 Height 74 in 03/22/2025 Blood pressure systolic 160 mm Hg 03/22/20 25 Blood pressure diastolic 88 mm Hg 025 BMI 24.47 kg/m2 03/22/2025 Encounters Encounter Location Date Provider Diagnosis [facility] [address] [place] [address] 03/22/2025 Jack Godwin Unspecified convulsi ons R56.9 ; Insomnia G47.00 and TON on CPAP G47.33 Assessments Encounter Date Diagnosis (ICD Code) Assessment Notes Treatment Notes Treatment Clinical Notes Section Notes 03/22/2025 Unspecified convulsions (ICD-10 - R56.9) 03/22/2025 Insomnia (ICD-10 - G47.00) 03/22/2025 TON on CPAP (ICD-10 - G47.33) Plan Of Treatment Medication Medication Name Sig Start Date Stop Date Notes Sunosi 150 MG 1 tablet in the morning Orally Once a day Progress Notes * Clark RIDDLE RDOB:1950 (74 yo M)Acc No.[id number]:03/22/2025 Progress Note Patient: Clark MENDOZA Provider: Chiki Godwin ([facility])MD :1950 A ge:74 Y S ex:Male Date:03/22/2025 Address:[address] [place] [address] [address], [id number] Check In:08:23 AM ESTCheck O ut:08:47 AM EST Subjective: * Chief Complaints: * W eak,didnt take AM meds yetLabs yesterday * ROS: E ENT: hearing changes d [...] enies. S wollen joints d enies. * Active Problem List I10 Hypertension Modified On:11/10/2023/U Status:confirmed G47.00 Insomnia Modified On:02/08/2023/U Status:confirmed I65.23 Occlusion and stenos is of bilateral carotid arteries Modified On:02/28/2023/U Status:confirmed R07.9 Chest pain Modified On:04/20/2023 Status:confirmed M79.645 Thumb pain, left Modified On:03/07/2023 Status:confirmed I47.1 Supraventricular tac hycardia Modified On:03/23/2023 Status:confirmed I47.20 Ventricular tachycar dago, unspecified Modified On:03/23/2023 Status:confirmed E83.42 Hypomagnesemia Modified On:03/24/2023 Status:confirmed E83.51 Hypocalcemia Modified On:03/24/2023 Status:confirmed I20.0 Unstable angina Modified On:03/26/2023 Status:confirmed I10 Hypertension, uncont rolled Modified On:03/26/2023 Status:confirmed R10.9 Abdominal pain Modified On:09/22/2023 Status:confirmed K52.9 Colitis Modified On:11/10/2023 Status:confirmed I10 BP (high blood press ure) Modified On:10/12/2023 Status:confirmed K50.90 Crohn disease Modified On:10/12/2023 Status:confirmed D50.9 Anemia, iron deficie ncy Modified On:10/12/2023 Status:confirmed F41.9 Anxiety Modified On:11/10/2023 Status:confirmed R25.1 Tremor Modified On:12/07/2023 Status:confirmed I80.202 Deep vein thrombophl ebitis of left leg Modified On:02/21/2024 Status:confirmed I26.99 Pulmonary embolism Modified On:03/20/2024 Status:confirmed F41.1 NADIYA (generalized anx iety disorder) Modified On:04/25/2024 Status:confirmed R55 Syncope Modified On:08/13/2024 Status:confirmed I47.9 Supraventricular tac hycardia, nonsustained Modified On:09/07/2024 Status:confirmed I10 Blood pressure eleva ava Modified On:09/20/2024 Status:confirmed F32.9 Depression Modified On:11/28/2024/U Status:confirmed R53.83 Fatigue Modified On:01/16/2025 Status:confirmed R06.00 Dyspnea Modified On:01/16/2025U Status:confirmed R56.9 Unspecified convulsi ons Modified On:03/22/2025 Status:confirmed G47.33 TON on CPAP Modified On:03/22/2025 Status:confirmed * Medical History: * Surgical History: T ONSILLECTOMY,UNDER 12YRS Crohns- bowel resection, 8ft taken out * Hospitalization/Major Diagno stic Procedure: h eart cath owel obstruction 08/2023 * Family History: F ather: 80 yrs, Smoker- COPD, coronary artery disease, diagnosed with Diabetes mellitus without mention of complication, type II or unspecified type, not stated as uncontrolled. M other: 80 yrs, coronary artery disease, diagnosed with Diabetes mellitus without mention of complication, type II or unspecified type, not stated as uncontrolled. 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 [...] last smoked??> 10 years * Medications: T akingAspirin 81(Aspirin) 81 MG Tablet Delayed Release 1 tablet Orally Once a day Ativan(LORazepam) 1 MG Tablet 1 tablet F 41.9 Orally bid As neededCelecoxib 200 MG Capsule 1 capsule with food Orally Once a day cloNIDine HCl 0.1 MG Tablet 2 tablet Orally bid Crestor Isosorbide Mononitrate ER 30 MG Tablet Extended Release 24 Hour TAKE 1 TABLET EVERY MORNING Topiramate 50 MG Tablet TAKE 1 TABLET BY MOUTH EVERY DAY FOR 30 DAYS Medication List reviewed and reconciled with the patientTaking Aspirin 81(Aspirin) 81 MG Tablet Delayed Release 1 tablet Orally Once a day Taking Ativan(LORazepam) 1 MG Tablet 1 tablet F 41.9 Orally bid As neededTaking Celecoxib 200 MG Capsule 1 capsule with food Orally Once a day Taking cloNIDine HCl 0.1 MG Tablet 2 tablet Orally bid Taking Crestor Taking Isosorbide Mononitrate ER 30 MG Tablet Extended Release 24 Hour TAKE 1 TABLET EVERY MORNING Taking Topiramate 50 MG Tablet TAKE 1 TABLET BY MOUTH EVERY DAY FOR 30 DAYS Medication List reviewed and reconciled with the patient * Allergies: S eafood: GI issues - Side Effectsno[Allergies Verified] Objective: * Vitals: W t:190.6lbs, Ht: 74 in, BP:160/88mm Hg, BMI:24.47Index, Ht-cm: 187.96 cm, Wt-k.46 kg. * Examination: [...] mood and affect. Assessment: * Assessment: 1. U nspecified convulsions - R56.9 (Primary) 2 . I nsomnia - G47.00 ? 3 . O SA on CPAP - G47.33 Plan: * Treatment: * Procedure Codes: * Preventive Medicine: Screenings/Counseling: F ALL RISK SCREENING Fall Risk Assessment: N o falls in the past year * * Sign off status: Completed Visit Status: C HK (Check Out) true * Provider: Chiki Godwin ([facility])MD Date: 03/22/2025 Generated for Printi ng/Faxing/eTransmitting on: 0 04/21/2025 09:32 PM EDT History and Physical Notes * Examination Category Sub-Category Detail Notes Category Not [...]
--- OUTSIDE RECORDS SUMMARY | 2025-04-11 04:30 | XMS_ITS ---
Author Organization [facility] in [place] Address [address] [place] [address] Care Team Providers Care Risk Adjustment Specialist Name Role Phone Jack Godwin Primary Care Provider Allergies Allergen (clinical drug ingredient) Drug/Non Drug Allergy documented on EMR Reaction Allergy Type Onset Date Status Seafood Seafood (uncoded) GI issues Allergy Ac tive REASON FOR VISIT BP issues- forgot to take med this AM, discuss refill on Lorazepam- signed CSA Medications Medication SIG (Take, Route, Frequency, Duration) Notes Start Date End Date Status Crestor Active Topiramate 50 MG TAKE 1 TABLET BY OZIEL TH EVERY DAY FOR 30 DAYS for 30 Active Sunosi 150 MG 1 tablet in the morn ing Orally Once a day 03/22/2025 Active Ativan 1 MG 1 tablet F 41.9 Orally bid for 7 days As needed 04/11/2025 Active Aspirin 81 81 MG 1 tablet Orally Once a day Active cloNIDine HCl 0.1 MG 2 tablet Orally bid for 30 days Active Isosorbide Mononitrate ER 30 MG TAKE 2 TABLET EVERY MORNING for 90 days Active Celecoxib 200 MG 1 capsule with [...] Problem Status W/U Status Risk Notes Problem Chronic kidney disease stage 3A (disorder) (216636715) Chronic kidney disease, stage 3a (N18.31) Active confirmed Vital Signs Weight 187.0 lbs 04/11/2025 Height 74 in 04/11/2025 Blood pressure systolic 192 mm Hg 04/11/20 25 Blood pressure diastolic 84 mm Hg 025 BMI 24.01 kg/m2 04/11/2025 Encounters Encounter Location Date Provider Diagnosis [facility] [address] [place] [address] 04/11/2025 Jack Godwin Chronic kidney disea se, stage 3a N18.31 ; Hypertension I10 ; Insomnia G47.00 and NADIYA (generalized anxiety disorder) F41.1 Assessments Encounter Date Diagnosis (ICD Code) Assessment Notes Treatment Notes Treatment Clinical Notes Section Notes 04/11/2025 Chronic kidney disease, stage 3a (ICD-10 - N18.31) following up on labs 04/11/2025 Hypertension (ICD-10 - I10) 04/11/2025 Insomnia (ICD-10 - G47.00) 04/11/2025 NADIYA (generalized anxiety disorder) (ICD-10 - F41.1) Plan Of Treatment Medication Medication Name Sig Start Date Stop Date Notes Ativan 1 MG 1 tablet F 41.9 Oral ly bid for 7 days 04/11/2025 Isosorbide Mononitrate ER 30 MG TAKE 2 T ABLET EVERY MORNING for 90 days Treatment Notes Assessment Notes Chronic kidney disease, stage 3a followi ng up on labs Progress Notes * Clark RIDDLE RDOB:1950 (74 yo M)Acc No.[id number]:04/11/2025 Progress Note Patient: Clark MENDOZA Provider: Chiki Godwin ([facility])MD :1950 A ge:74 Y S ex:Male Date:04/11/2025 Address:[facility] [address] [facility] Check In:08:21 AM ESTCheck O ut:08:54 AM EST Subjective: * Chief Complaints: * B P issues- forgot to take med this AMdiscuss refill on Lorazepam- signed CSA * HPI: G eneral: BPup at home and 190's - took extrea 1/4 of the lorazepam - that seemed to help. 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 carotid arteries Modified On:02/28/2023 Status:confirmed R07.9 Chest pain Modified On:04/20/2023 Status:confirmed [...] ava Modified On:09/20/2024 Status:confirmed F32.9 Depression Modified On:11/28/2024 Status:confirmed R53.83 Fatigue Modified On:01/16/2025 Status:confirmed R06.00 Dyspnea Modified On:01/16/2025 Status:confirmed R56.9 Unspecified convulsi ons Modified On:03/22/2025 Status:confirmed G47.33 TON on CPAP Modified On:03/22/2025 Status:confirmed N18.31 Chronic kidney disea se, stage 3a Modified On:04/11/2025 Status:confirmed * Medical History: * Surgical History: [...] 24 Hour TAKE 1 TABLET EVERY MORNING Sunosi(Solriamfetol HCl) 150 MG Tablet 1 tablet in the morning Orally Once a day Topiramate 50 MG Tablet TAKE 1 TABLET [...] Hour TAKE 1 TABLET EVERY MORNING Taking Sunosi(Solriamfetol HCl) 150 MG Tablet 1 tablet in the morning Orally Once a day Taking Topiramate 50 MG Tablet TAKE 1 TABLET BY MOUTH EVERY DAY FOR 30 DAYS Medication List reviewed and reconciled with the patient * Allergies: S eafood: GI issues - Side Effectsno[Allergies Verified] Objective: * Vitals: W t:187.0lbs, Ht: 74 in, BP:192/84mm Hg, BMI:24.01Index, Ht-cm: 187.96 cm, Wt-k.82 kg. * Examination: P hysical Exam: GENERAL: [...] mood and affect. Assessment: * Assessment: 1. C hronic kidney disease, stage 3a - N18.31 (Primary) 2 . H ypertension - I10 3 . I nsomnia - G47.00 4 . G AD (generalized anxiety disorder) - F41.1 Plan: * Treatment: 2. G AD (generalized anxiety disorder) Refill Ativan Tablet, 1 MG, 1 tablet F 41.9, Orally, bid As needed, 7 days, 14, Refills 0. ? * Procedure Codes: * * Sign off status: Completed Visit Status: C HK (Check Out) true * Provider: Chiki Godwin ([facility])MD Date: 0 04/11/2025 Generated for Amyi herlinda/Mahad/eTransmitting on: 0 04/21/2025 09:32 PM EDT History and Physical Notes * HPI (History of Present Illness) Category Sub-Category Detail Notes Category Not es General BPup at home an d 190's - took extrea 1/4 of the lorazepam - that seemed to help Examination Category Sub-Category Detail Notes Category Not [...]
--- OUTSIDE RECORDS SUMMARY | 2025-04-16 11:15 | XMS_ITS ---
Author Organization [facility] in [place] Address [address] [place] [address] Care Team Providers Care Electrical Assembler Name Role Phone Jack Godwin Primary Care Provider REASON FOR VISIT Stellus Rx - Statin Recommendation Encounters Encounter Location Date Provider Diagnosis [facility] [address] [place] [address] 04/16/2025 Jack Godwin Plan Of Treatment Medication Medication Name Sig Start Date Stop Date Notes Crestor Progress Notes * Clark RIDDLE RDOB:1950 (74 yo M)Acc No.[id number]:04/16/2025 Patient: Blanca HOU Clark Bueno :1950 A ge:74 Y S ex:Male Address:[facility] [address] [place] [address] * Refills Stop Crestor * true * Date: Generated for Printi ng/Faxing/eTransmitting on: 0 04/21/2025 09:32 PM EDT
[2025-04-21] VITALS (14 sets, daily range): BP systolic 116–156; BP diastolic 61–74; PULSE 61–70; TEMP 36.7; O2SAT 93–97; BMI 23.1
--- OUTSIDE RECORDS SUMMARY | 2025-04-21 21:33 | XMS_ITS | Clinical Summary ---
Author Organization [facility] Address [address] [place] [address] Care Team Providers Care Dental Appliance Repairer Name Role Phone Rodriguez Godwin MD Primary Care Provider [phone] Allergies Active Allergy Reactions Criticality Noted Date [...] 20 mg tabletIndication s:Coronary artery disease involving [place] coronary artery of [place] heart without angina pectoris TAKE 1 TABLET BY MOUTH EVERY DAY IN THE MORNING 90 tablet 3 5 Active Additional Information Patient not taking.Reported on 01/15/2025 metoprolol succinate XL (Toprol-XL) 25 mg 24 hr tabletIndication s:Coronary artery disease involving [place] coronary artery of [place] heart without angina pectoris TAKE 1 TABLET (25 MG) BY MOUTH IN THE MORNING . DO NOT CRUSH OR CHEW 90 tablet 3 5 12/20/19 26 Active ezetimibe (Zetia) 10 mg tabletIndication s:Coronary artery disease involving lone pine coronary artery of lone pine heart without angina pectoris TAKE 1 TABLET [...] collapse 03/15/2023 Overview (03/21/2023): ED visit [facility] for dehydration, near syncope. Assessment & Plan (03/21/2023 2:50 PM EDT): In light pt admits 2 episodes of syncope while on vacation in [place] with his daughter- denied any symptoms prior to waking up on the floor- broke 3 front teeth in one episode. Encounters Date Type Department Care Team Description 01/22/[address] [facility] [address] [place] [facility] [place] [address] Yuridia Nuñez MA 01/22/[address] [facility] [address] [place] [facility] [place] [address] ProviderAmanda MD 01/21/[address] [facility] [address] [place] [facility] [place] [address] Yuridia Nuñez MA Hypokalemia from Last 3 Months Family History Medical [...] Risk Screening 2014 COVID-19 Vaccine (4 - 2024-2 6 season) 2025 09/14/2023, 09/10/2020, 08/13/2020 Influenza Vaccine (#1) 2025 [...] l Result from Last 3 Months Insurance [facility] MEDICARE ADVANTAGE Care Teams Dental Appliance Repairer Relationship Specialty Start Date End Date Rodriguez Godwin MD [address] [facility] [place] [address] PCP - General 03/21/23
--- OUTSIDE RECORDS SUMMARY | 2025-04-21 21:33 | XMS_ITS | Encounter Summary ---
Author Organization [facility] Address [address] [place] [address] Care Team Providers Care Screw Eye Assembler Name Role Phone Rodriguez Godwin MD Primary Care Provider [phone] Reason for Visit * Reason Comments Med Refill Encounter Details Date Type Department Care Team (Late st Contact Info) Description 12/10/2024 Refill [facility] at [facility] [address] [place] [address] Bruce Bah MD [address] [facility] [address] Coronary artery disease involving [place] coronary artery of [place] heart without angina pectoris Social History Tobacco [...] Visit Diagnoses Diagnosis Coronary artery disease involving [place] coronary artery of [place] heart without angina pectoris documented in this encounter Care Teams Screw Eye Assembler Relationship Specialty Start Date End Date Rodriguez Godwin MD [address] [place] [address] PCP - General 03/21/23 documented as of this encounter
--- OUTSIDE RECORDS SUMMARY | 2025-04-21 21:33 | XMS_ITS | Clinical Summary ---
Author Organization [facility] Address [address] [facility] [place] [address] Care Team Providers Care Home Health Cna Name Role Phone Errol Bojorquez DO Unavailable [phone] Rodriguez Godwin MD Primary Care Provider [phone] Allergies No known active allergies Medications lisinopril [...] 000 Influenza Vaccine (#1) 2025 09/21/2023 Insurance [facility] MEDICARE ADVANTAGE Care Teams Home Health Cna Relationship Specialty Start Date End Date Rodriguez Godwin MD [address] [place] [id number] PCP - General Family Medicine 11/05/24 Errol Bojorquez DO [address] [place] [address] [id number] Referring Physician Neurology 11/05/24
--- OUTSIDE RECORDS SUMMARY | 2025-04-21 21:33 | XMS_ITS | Clinical Summary ---
Author Organization [facility] Address [id number] [place] [address] Care Team Providers Care Resident Director Name Role Phone Rodriguez Godwin MD Primary Care Provider [phone] Allergies No known active allergies Medications lisinopriL [...] 09/14/2023 Medical Devices Not on file Insurance [facility] [facility] MEDICARE Care Teams Resident Director Relationship Specialty Start Date End Date Rodriguez Godwin MD [address] [facility], [place] [address] PCP - General Family Medicine 08/09/24
--- OUTSIDE RECORDS SUMMARY | 2025-04-21 21:33 | XMS_ITS | CCD ---
Author Organization [facility] Care Team Providers Care Shuttler Name Role Phone DR BEHZAD CROCKER Primary Care Unavailable DANIEL ., JUNI Attending Unavailable DANIEL ., JUNI Admitting Unavailable DR ROBERT DAVENPORT V Consulting Unavailable PITER GROSSMAN Consulting Unavailable DANIEL ., JUNI Consulting Unavailable DIAB ., GRAYSON Consulting Unavailable ADITYA OATES Consulting Unavailable MD Rodriguez Godwin Primary Care Provider [phone] DO Ramiro Cortez Emergency Provider [phone] MD Rodriguez Godwin Primary Care Provider [phone] KYA Garrison Emergency Provider [phone] Deb, [employer]- Naima Phelan Emergency Provider Rodriguez Godwin Primary [...] SHIRLEY Attending Unavailable JESSICA FORRESTER Referring Unavailable Rodriguez Godwin MD Primary Care Provider [phone] Santa Martinez DO Attending Provider Maribel Bojorquez DO Attending Provider [phone] Allergies Allergy Classification Reported Allergen(s) Allergy Type Date of Onset Reaction(s) Facility (2 sources) Fish derivative; Translations: [fish derived] Propensity to adverse reactions 03-03-20 Gastrointestinal Upset [facility] (1 source) No Known Medication Allergies; Translations: [No Known Medication Allergies] Propensity to adverse reactions (disorder) [facility] Repository (1 source) atorvastatin; Translations: [ATORVASTATIN] Drug Allergy 04-06-20 [facility] Repository Medications Current Medications Medication Drug Class(es) Dates Sig (Normalized) Sig (Original) aspirin 81 mg oral tablet (1 source) Platelet Aggregation Inhibitor, Nonsteroidal Anti-inflammatory Drug Start: 04-17-2025 take 1 tablet by mouth once daily Aspirin 81 mg tablet Active 81 MG PO Daily April 17, 2025 12:00am Complies with drug therapy cloNIDine hydrochloride 0.1 mg oral tablet (5 sources) Central alpha-2 Adrenergic Agonist Start: 01-30-2025 take 1 tablet by mouth twice daily Clonidine Hcl 0.1 mg tablet Active 0.1 MG PO Twice daily January 30, 2025 12:00am Complies with drug therapy Start: 12-11-2024 take 1 mg by mouth twice daily cloNIDine 0.1 mg tab mg tab(s), Oral, BID, Refills(s) 0 Start Date: 12/11/24 Status: Ordered Repeat number: 1 take 1 tablet by linda in the morning cloNIDine (Catapres) 0.1 MG tablet Take 0.1 mg by mouth in the morning and 0.1 mg before bedtime. Active diphenhydrAMINE hydrochloride 50 mg oral tablet (2 sources) Histamine-1 Receptor Antagonist diphenhydrAMINE (BENADryl) 50 MG tablet Take 50 mg by mouth as needed at bedtime for itching Active ezetimibe 10 mg oral tablet (1 source) Dietary Cholesterol Absorption Inhibitor Start: 04-17-20 take 1 tablet by mouth once daily Ezetimibe 10 mg tablet Active 10 MG PO Daily April 17, 2025 12:00am Complies with drug therapy 24 hr isosorbide mononitrate 30 mg extended release oral tablet (2 sources) Nitrate Vasodilator Start: 04-17-20 Isosorbide Mononitrate 30 mg tablet extended release 24 hr Active 60 MG PO Every morning April 17, 2025 10:15am Complies with drug therapy Start: 01-30-2025 End: 04-17-2025 take 1 tablet by mouth once daily in the morning, then take 1 tablet by mouth every twenty-four hours Isosorbide Mononitrate 30 mg tablet extended release 24 hr Discontinued 30 MG PO Every morning January 30, 2025 12:00am April 17, 2025 10:19am isosorbide dinitrate 5 mg oral tablet (2 sources) Nitrate Vasodilator take 1 tablet by mouth once daily isosorbide dinitrate (Isordil) 5 MG tablet Take 5 mg by mouth Daily Active Lisinopril (12 sources) Angiotensin Converting Enzyme Inhibitor Start: 12-11-2024 lisinopril Oral, Daily, Refills(s) 0 Start Date: 12/11/24 Status: Ordered Repeat number: 1 Start: 03-03-2023 End: 04-17-2025 take 1 tablet by mouth twice daily Lisinopril 5 mg tablet Discontinued 5 MG PO Twice daily March 03, 2023 12:00am April 17, 2025 10:15am Start: 09-06-2019 End: 03-03-2023 take 1 tablet by mouth twice daily Lisinopril 10 mg Tablet Discontinued 10 MG PO Twice daily September 06, 2019 1:00am March 03, 2023 12:47pm take 1 tablet by linda th once daily lisinopril 5 MG tablet Take 5 mg by mouth Daily Active LORazepam (8 sources) Benzodiazepine Start: 12-11-2024 lorazepam Refi lls(s) 0 Start Date: 12/11/24 Status: Ordered Repeat number: 1 Start: 03-03-2023 take 1 tablet by linda th every twelve hours as needed for anxiety Lorazepam (Ativan) 1 mg tablet Active 1 MG PO Q12H as needed for anxiety 7 3 March 03, 2023 12:00am Complies with drug therapy take 1 tablet by mouth at bedtim e LORazepam (Ativan) 0.5 MG tablet Take 0.5 mg by mouth at bedtime Active mecobalamin 1 mg chewable tablet (1 source) Start: 01-30-2025 take 1 tablet by mouth once daily Mecobalamin (Vitamin B12) 1,000 mcg tablet,chewable Active 1000 MCG PO Daily January 30, 2025 12:00am Complies with drug therapy mesalamine 400 mg delayed release oral capsule (9 sources) Aminosalicylate Start: 04-17-2025 take 2 tablets by mouth twice daily Mesalamine (Delzicol) 400 mg capsule (with del rel tablets) Active 800 MG PO Twice daily April 17, 2025 10:16am Complies with drug therapy Start: 12-11-2024 take 1 mg by mouth twice daily mesalamine 400 mg oral delayed release capsule mg cap(s), Oral, BID, Refills(s) 0 Start Date: 12/11/24 Status: Ordered Repeat number: 1 Start: 09-06-2019 End: 04-17-2025 take 1 tablet by mouth four times daily Mesalamine (Delzicol) 400 mg Capsule (With Del Rel Tablets) Discontinued 400 MG PO Four times daily September 06, 2019 1:00am April 17, 2025 10:19am Multiple Vitamin (multivitamin) capsule (2 sources) take 1 capsule by mouth once daily Multiple Vitamin (multivitamin) capsule Take 1 capsule by mouth Daily Active Multivitamin preparation (2 sources) Start: 12-12-19 multivitamin Refill(s) 0 Start Date: 12/11/24 Status: Ordered Repeat number: 1 pravastatin sodium 20 mg oral tablet (1 source) HMG-CoA Reductase Inhibitor Start: 04-17-20 take 1 tablet by mouth once daily Pravastatin 20 mg tablet Active 20 MG PO Daily April 17, 2025 12:00am Complies with drug therapy tamsulosin hydrochloride 0.4 mg oral capsule (3 sources) alpha-Adrenergic Florin Start: 12-12-19 End: 12-07-19 take 1 capsule by mouth once daily Tamsulosin 0.4 mg capsule Active 0.4 MG PO Daily April 17, 2025 12:00am Complies with drug therapy Completed/Discontinued Medications Medication Drug Class(es) Dates Sig (Normalized) Sig (Original) apixaban 2.5 mg oral tablet (1 source) Factor Xa Inhibitor Start: 04-17-2025 End: 04-17-2025 take 1 tablet by mouth twice daily Apixaban (Eliquis) 2.5 mg tablet Discontinued 2.5 MG PO Twice daily April 17, 2025 12:00am April 17, 2025 10:15am cephalexin 500 mg oral capsule (2 sources) Cephalosporin Antibacterial Start: 12-11-2024 Keflex 500 mg Cap 500 mg = 1 cap(s), Oral, As Directed, Take one tab the day before the procedure. Then take the 2nd tab after the procedure has been completed., # 2 cap(s), Refills(s) 0, Pharmacy: [facility]/pharmacy #[id number] Start Date: 12/11/24 Status: Ordered Quantity: 2.0 Unit: cap(s) Repeat number: 1 metoprolol tartrate 25 mg oral tablet (1 source) beta-Adrenergic Florin Start: 01-30-2025 End: 04-17-2025 take 1 tablet by mouth once daily Metoprolol Tartrate 25 mg tablet Discontinued 25 MG PO Daily January 30, 2025 12:00am April 17, 2025 10:16am ondansetron 8 mg disintegrating oral tablet (4 sources) Serotonin-3 Receptor Antagonist Start: 09-06-2019 End: 03-03-2023 Ondansetron 8 mg tablet,disintegra ting Discontinued 8 MG PO As Directed as needed for Nausea September 06, 2019 1:00am March 03, 2023 12:48pm topiramate 50 mg oral tablet (1 source) Start: 04-17-2025 End: 04-17-2025 take 1 tablet by mouth once daily Topiramate 50 mg tablet Discontinued 50 MG PO Daily April 17, 2025 12:00am April 17, 2025 10:17am traZODone hydrochloride 50 mg oral tablet (1 source) Serotonin Reuptake Inhibitor Start: 04-17-2025 End: 04-17-2025 take 1 tablet by mouth once daily at bedtime as needed Trazodone 50 mg tablet Discontinued 50 MG PO Daily at bedtime as needed April 17, 2025 12:00am April 17, 2025 10:17am Problems Active Problems Problem Classification Problem Date Documented Da te Episodic/Chronic Acute myocardial infarction (2 sources) Myocardial infarction 01-09-2025 Chronic Anxiety disorders (11 sources) Anxiety; Translations: [Anxiety disorder, unspecified] Onset: 03-03-2023 Chronic Comment on above: Problem List clean-u p per request of Phys. [facility] Calculus of urinary tract (3 sources) Personal history of urinary calculi; Translations: [History of calculus of kidney] Onset: 3 01-09-2025 Episodic Cardiac dysrhythmias (6 sources) Supraventricular tachycardia; 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 atrial flutter] Onset: 5 01-09-2025 Chronic Coma; stupor; and brain damage (4 sources) Loss of consciousness; Translations: [Unspecified coma] 09-19-2024 Episodic Conditions associated with dizziness or vertigo (1 source) Dizziness and giddiness; Translations: [Dizziness and giddiness] Onset: 4 Episodic Congestive heart failure; nonhypertensive (4 sources) Congestive heart failure; Translations: [Heart failure, unspecified] 01-09-2024 Chronic Coronary atherosclerosis and other heart disease (2 sources) Atherosclerotic heart disease of [place] coronary artery without angina pectoris; Translations: [Atherosclerotic heart disease of black[place] coronary artery without angina pectoris] Onset: 5 Chronic Epilepsy; convulsions (1 source) Unspecified convulsions; Translations: [Unspecified convulsions] Onset: 4 Episodic Essential hypertension (5 sources) Essential (primary) hypertension; Translations: [Hypertensive disorder] Onset: 3 12-11-2024 Chronic Genitourinary symptoms and ill-defined conditions (2 sources) Incomplete emptying of bladder 12-11-2024 Episodic Hyperplasia of prostate (2 sources) Benign prostatic hypertrophy with outflow obstruction 12-11-2024 Chronic Nonspecific chest pain (3 sources) Atypical chest pain; Translations: [Other chest pain] Onset: 3 01-09-2024 Episodic Other aftercare (1 source) terminal operations manager (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 EHR Cmte Residual codes; unclassified (1 source) Obstructive sleep apnea syndrome; Translations: [Obstructive sleep apnea (adult) (pediatric)] 04-17-2025 Chronic Residual codes; unclassified (1 source) Insomnia, unspecified; Translations: [INSOMNIA UNSPECIFIED] Onset: 3 Episodic Residual codes; unclassified (1 source) Acquired absence of other specified parts of digestive tract; Translations: [ACQ ABSENCE OTH PART DIGESTV TRACT] Onset: 3 Episodic Residual codes; unclassified (1 source) Family history of diabetes mellitus; Translations: [FAMILY HISTORY OF DIABETES MELLITUS] Onset: 3 Episodic Residual codes; unclassified (2 sources) Patient encounter status; Translations: [Procedure and treatment not carried out due to patient leaving prior to being seen by health care provider] 12-26-2023 Episodic Screening and history of mental health and substance abuse codes (1 source) Personal history of nicotine dependence; Translations: [PERSONAL HISTORY OF NICOTINE DEPEND] Onset: 3 Episodic Syncope (6 sources) Near syncope; Translations: [Syncope and collapse] [...] Small bowel obstruction Onset: 08-31-2024 01-09-2025 Episodic Unclassified (1 source) Supraventricular tachycardia, unspecified; Translations: [Supraventricular tachycardia, unspecified] Onset: 11-14-2024 Unclassified (1 source) Other ventricular tachycardia; Translations: [Other ventricular tachycardia] Onset: 04-06-2024 Results Test Name Value Interpretation Reference Range Facility Surgical Pathology Reporton 01-25-2025 Surgical Pathology Report [address] [address]- Surgical Pathology Report Collected Date/Time: 01/22/2025 10:13 EDT Pathologist: Leroy ADAN, Kenn Noriega Date/Time: 01/23/2025 07:34 EDT GUNJAN ADAN, Frankie [...] and entirely submitted in one cassette. (DC) DC:[facility] Microscopic Description Microscopic examination performed unless gross only specified. Quality was accessed and acceptable. This report was transcribed using voice recognition technology and might contain unintended computerized punch hand errors. Normal [facility] Comment on above: Performed By: #### [id number] #### [facility] Laboratory [address] [place] [address] 36on 01-22-2025 36 Spoke with patient a nd made him aware of normal stress test performed on 01/21/[address] Shirley. He verbalized understanding. Normal [facility] Ambulatory Visit Summaryon 0 01-22-2025 Ambulatory Visit Summary Ambulatory Visit Summary JEB RIDDLE :1950 Visit Date:01/22/2025 Ambulatory Visit Instructions Your Care Team Attending Physician - Frankie HOLLINS MD Primary Care Physician - Rodriguez Godwin MD [...] AM EDT With: Where: [facility] [address] [place] [place] [address]- Tuesday 8:45 AM EDT With: AUGUSTINE ADAN, Jaun Salguero Where: [facility] [address] [place] [address]- Medications What How Much When Instructions Unchanged [...] you for choosing us for your care. Normal [facility] Orders Onlyon 01-22-2025 Orders Only [id number] Jeb Riddle 1950 M Date Provider Department Center 01/22/2025 [id number], HISTORICAL MISSY [facility] Family History Problem Relation Age of Onset Diabetes Mother Coronary artery disease Mother Heart attack Father Diabetes Father Coronary artery disease Father Pulmonary embolism Brother Family Status - Relation Status Age at Mother Father Brother Normal [facility] Office Visiton 01-15-2025 Follow-up visit [id number] Jeb Riddle 1950 M Date Provider Department Center 01/15/2025 Fabricio-SHIV SHIRLEY CARD [facility] Family History Problem Relation Age of Onset Diabetes Mother Coronary artery disease Mother Heart attack Father Diabetes Father Coronary artery disease Father Pulmonary embolism Brother Family Status - Relation Status Age at Mother Father Brother Level of Service:39657 SD OFFICE/OUTPATIENT ESTABLISHED LOW MDM 20 MIN [facility] Orders Onlyon 01-15-2025 Orders Only [id number] Jeb Riddle 1950 M Date Provider Department Center 01/15/2025 Dmitry-TAQUERIA SNOW CARD [facility] Family History Problem Relation Age of Onset Diabetes Mother Coronary artery disease Mother Heart attack Father Diabetes Father Coronary artery disease Father Pulmonary embolism Brother Family Status - Relation Status Age at Mother Father Brother [facility] Orders Only [id number] Jeb Riddle 1950 M Date Provider Department Center 01/15/2025 [id number], HISTORICAL CARD [facility] Family History Problem Relation Age of Onset Diabetes Mother Coronary artery disease Mother Heart attack Father Diabetes Father Coronary artery disease Father Pulmonary embolism Brother Family Status - Relation Status Age at Mother Father Brother [facility] Orders Onlyon 01-14-2025 Orders Only [id number] Jeb Riddle 1950 M Date Provider Department Center 01/14/2025 [id number], HISTORICAL CARD [facility] Family History Problem Relation Age of Onset Diabetes Mother Coronary artery disease Mother Heart attack Father Diabetes Father Coronary artery disease Father Pulmonary embolism Brother Family Status - Relation Status Age at Mother Father Brother Normal [facility] Urology Office/Clinic Noteon 12-11-2024 Urology Office/Clinic Note [...] d/t elevated PSA. 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 1. Elevated PSA (R97.20: Elevated prostate specific [...] office if experiencing persistent dizziness/lightheadedness. Sent to [facility]. -Will schedule cysto. The risks and benefits for cystoscopy have been discussed. The risks include bleeding, infection, and irritation of the bladder and urinary channel, among others. The patient, after being informed of procedural details and after questions have been answered, wishes to proceed. Full informed consent has been obtained. Will order Local anesthesia. Prophylactic abx sent to [facility]. 3. History of kidney stones (Z87.442: Personal history of urinary calculi) States he has some intrarenal stones noted on CT at [facility]. -Retrieve CT from [facility], see below 4. Renal cyst (N28.1: Cyst of kidney, acquired) Recent [facility] CT also noted large renal cyst per pt. He feels it looks suspicious for a mass and not a cyst. Will have to retrieve imaging from [facility] to view. -Pt can drop off CD 5. Incomplete bladder emptying (R33.9: Retention of urine, unspecified) PVR 102 cc. Lays on his side to void and voids into a urinal, this helps him empty. He does not do this every time. This has been going on for 6-12 mos. 6. 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 On Eliquis. Overall the patient has the elevated PSA level which has actually fluctuated, prompting the recommendation for follow-up in 6 months with a repeat level. We discussed that usually prostate cancer will not fluctuate. He does have significant bladder outlet obstructive/irri (more content not included)... Normal [facility] Comment on above: Result Comment: Elec tronically Signed By: Jaun BRADSHAW MD P\.br\Date and Time Signed: 12/11/24 10:00 EDT\.br\Electronically Co-Signed By: Tarah Reese\.br\Date and Time Co-Signed: 12/11/24 09:58 EDT Office Visiton 11-14-2024 Follow-up visit [id number] Jeb Riddle 1950 M Date Provider Department Center 11/14/2024 JESSICA JAMISON MISSY [facility] Family History Problem Relation Age of Onset Diabetes Mother Coronary artery disease Mother Heart attack Father Diabetes Father Coronary artery disease Father Pulmonary embolism Brother Family Status - Relation Status Age at Mother Father Brother Level of Service:02983 SD OFFICE/OUTPATIENT ESTABLISHED MOD MDM 30 MIN Normal [facility] Office Visiton 09-24-2024 Follow-up visit [id number] Jeb Riddle 1950 M Date Provider Department Center 09/24/2024 JESSICA JAMISON Family History Problem Relation Age of Onset Diabetes Mother Coronary artery disease Mother Heart attack Father Diabetes Father Coronary artery disease Father Family Status - Relation Status Age at Mother Father Level of Service:21885 SD OFFICE/OUTPATIENT ESTABLISHED MOD MDM 30 MIN Normal [facility] CBC AND AUTO DIFFon 08-09-20 24 ABSOLUTE BASOPHIL 0.0 X10E9/L Normal 0.0-0.2 [facility] Comment on above: Performed By: #### 1 9123-9, 82832-6, CMP, 34715-0, 44700-3, CBCA, 5643-2, PINR #### [facility] ([id number]) [address] [place] [address], [place] [address] ABSOLUTE NEUTROPHIL 3.9 X10E9/L Normal 1.5-6.6 [facility] Comment on above: Performed By: #### 1 9123-9, 53697-4, CMP, 91375-9, 15053-7, CBCA, 5643-2, PINR #### [facility] ([id number]) [address] [place] [address] Basophils/100 WBC (Bld) 0.3 % Normal [facility] Comment on above: Performed By: #### 1 9123-9, 59772-1, CMP, 73139-6, 13005-8, CBCA, 5643-2, PINR #### [facility] ([id number]) [address] [place] [address] Eosinophils (Bld) [#/Vol] 0.1 10*3/uL Normal 0.0-0.4 [facility] Comment on above: Performed By: #### 1 9123-9, 22131-9, CMP, 84619-4, 38407-9, CBCA, 5643-2, PINR #### [facility] ([id number]) [address] [place] [address] Eosinophils/100 WBC (Bld) 1.4 % Normal [facility] Comment on above: Performed By: #### 1 9123-9, 98796-4, CMP, 45658-7, 82441-6, CBCA, 5643-2, PINR #### [facility] ([id number]) [address] [place] [address] Erythrocyte distribution width (RBC) [Ratio] 13.0 % Normal 11.5-15.0 [facility] Comment on above: Performed By: #### 1 9123-9, 19810-4, CMP, 47424-7, 19654-6, CBCA, 5643-2, PINR #### [facility] ([id number]) [address] [place] [address] Hematocrit (Bld) [Volume fraction] 35.7 % Low 39-49 [facility] Comment on above: Performed By: #### 1 9123-9, 19822-2, CMP, 19753-0, 47723-1, CBCA, 5643-2, PINR #### [facility] ([id number]) [address] [place] [address] Hemoglobin (Bld) [Mass/Vol] 12.3 g/dL Low 13.0-17.0 [facility] Comment on above: Performed By: #### 1 9123-9, 93695-1, CMP, 01224-6, 04104-8, CBCA, 5643-2, PINR #### [facility] ([id number]) [address] [place] [address] Lymphocytes (Bld) [#/Vol] 1.1 10*3/uL Normal 1.0-3.5 [facility] Comment on above: Performed By: #### 1 9123-9, 69153-0, CMP, 90773-6, 71674-2, CBCA, 5643-2, PINR #### [facility] ([id number]) [address] [place] [address] Lymphocytes/100 WBC (Bld) 21.0 % Normal [facility] Comment on above: Performed By: #### 1 9123-9, 97913-6, CMP, 97051-7, 67909-3, CBCA, 5643-2, PINR #### [facility] ([id number]) [address] [place] [address] MCH (RBC) [Entitic mass] 33.2 pg Normal 27-34 [facility] Comment on above: Performed By: #### 1 9123-9, 78616-5, CMP, 77851-6, 00396-2, CBCA, 5643-2, PINR #### [facility] ([id number]) [address] [place] [address]79 MCHC (RBC) [Mass/Vol] 34.3 g/dL Normal 32-36 [facility] Comment on above: Performed By: #### 1 9123-9, 25008-2, CMP, 64950-7, 02650-9, CBCA, 5643-2, PINR #### [facility] ([id number]) [address] [place] [address] MCV (RBC) [Entitic vol] 97 fL Normal 80-100 [facility] Comment on above: Performed By: #### 1 9123-9, 47937-7, CMP, 15450-4, 96416-5, CBCA, 5643-2, PINR #### [facility] ([id number]) [address] [place] [address] Monocytes (Bld) [#/Vol] 0.2 10*3/uL Normal 0-0.9 [facility] Comment on above: Performed By: #### 1 9123-9, 22013-6, CMP, 87500-2, 74836-9, CBCA, 5643-2, PINR #### [facility] ([id number]) [address] [place] [address]89[address] Monocytes/100 WBC (Bld) 4.5 % Normal [facility] Comment on above: Performed By: #### 1 9123-9, 07817-0, CMP, 26096-2, 06072-2, CBCA, 5643-2, PINR #### [facility] ([id number]) [address] [place] [address]309 Neutrophils/100 WBC (Bld) 72.8 % Normal [facility] Comment on above: Performed By: #### 1 9123-9, 19026-4, CMP, 81078-1, 69203-9, CBCA, 5643-2, PINR #### [facility] ([id number]) [address] [place] [address] 28762 Platelet mean volume (Bld) [Entitic vol] 7.7 fL Normal 7-12 [facility] Comment on above: Performed By: #### 1 9123-9, 12223-2, CMP, 21141-8, 50581-3, CBCA, 5643-2, PINR #### [facility] ([id number]) [address] [place] [address] 81981 Platelets (Bld) [#/Vol] 208 10*3/uL Normal 150-450 [facility] Comment on above: Performed By: #### 1 9123-9, 02069-6, CMP, 37439-8, 86004-2, CBCA, 5643-2, PINR #### [facility] ([id number]) [address] [place] [address] 68444 RBC COUNT 3.69 X10E12/L Low 4.10-5.70 [facility] Comment on above: Performed By: #### 1 9123-9, 82892-4, CMP, 57944-4, 64754-7, CBCA, 5643-2, PINR #### [facility] ([id number]) [address] [place] [address] 16491 WBC (Bld) [#/Vol] 5.4 10*3/uL Normal 4.0-11.0 [facility] Comment on above: Performed By: #### 1 9123-9, 80540-4, CMP, 09782-4, 58863-8, CBCA, 5643-2, PINR #### [facility] ([id number]) [address] [place] [address] COMPREHENSIVE METABOLIC PANE Morgan 08-09-2024 Albumin [Mass/Vol] 3.5 g/dL Normal 3.2-5.3 [facility] Comment on above: Performed By: #### 1 9123-9, 93337-7, CMP, 53324-1, 16335-0, CBCA, 5643-2, PINR #### [facility] ([id number]) [address] [place] [address] 09751 ALP [Catalytic activity/Vol] 56 U/L Normal 39-130 [facility] Comment on above: Performed By: #### 1 9123-9, 85770-2, CMP, 84676-2, 41208-6, CBCA, 5643-2, PINR #### [facility] ([id number]) [address] [place] [address] 77541 ALT [Catalytic activity/Vol] 25 U/L Normal 0-40 [facility] Comment on above: Performed By: #### 1 9123-9, 42935-6, CMP, 93502-6, 86449-8, CBCA, 5643-2, PINR #### [facility] ([id number]) [address] [place] [address] 49684 Anion gap [Moles/Vol] 7 mmol/L Normal 5-15 [facility] Comment on above: Performed By: #### 1 9123-9, 09368-4, CMP, 13550-5, 08458-1, CBCA, 5643-2, PINR #### [facility] ([id number]) [address] [place] [address] 78721 AST [Catalytic activity/Vol] 19 U/L Normal 0-41 [facility] Comment on above: Performed By: #### 1 9123-9, 34378-5, CMP, 30497-1, 09057-0, CBCA, 5643-2, PINR #### [facility] ([id number]) [address] [place] [address] 23461 Bilirubin [Mass/Vol] 0.4 mg/dL Normal 0.3-1.2 [facility] Comment on above: Performed By: #### 1 9123-9, 19429-5, CMP, 61916-1, 87143-3, CBCA, 5643-2, PINR #### [facility] ([id number]) [address] [place] [address] [place] [address] Calcium [Mass/Vol] 8.8 mg/dL Normal 8.5-10.5 [facility] Comment on above: Performed By: #### 1 9123-9, 98271-0, CMP, 07539-2, 93503-7, CBCA, 5643-2, PINR #### [facility] ([id number]) [address] [place] [address] [place] [address] Chloride [Moles/Vol] 108 mmol/L Normal 98-109 [facility] Comment on above: Performed By: #### 1 9123-9, 63093-6, CMP, 24674-4, 88099-3, CBCA, 5643-2, PINR #### [facility] ([id number]) [address] [place] [address] [place] [address] CO2 [Moles/Vol] 23 mmol/L Normal 22-32 [facility] Comment on above: Performed By: #### 1 9123-9, 89928-4, CMP, 64634-3, 45500-2, CBCA, 5643-2, PINR #### [facility] ([id number]) [address] [place] [address] [place] [address] Creatinine [Mass/Vol] 1.37 mg/dL High 0.70-1.20 [facility] Comment on above: Result Comment: METH OD TRACEABLE TO IDMS STANDARD Performed By: #### 1 9123-9, 11851-5, CMP, 86664-6, 83855-3, CBCA, 5643-2, PINR #### [facility] ([id number]) [address] [place] [address] [place] [address] GFR/1.73 sq M.predicted among non-blacks MDRD (S/P/Bld) [Vol rate/Area] 54 mL/min/{1.73_m2} Low >59 [facility] Comment on above: Result Comment: Reported eGFR is based on the CKD-EPI 2020 equation that does not use a race coefficient. Performed By: #### 1 9123-9, 19699-1, CMP, 31787-5, 48085-7, CBCA, 5643-2, PINR #### [facility] ([id number]) [address] [place] [address] 47937 Glucose [Mass/Vol] 155 mg/dL High 65-99 [facility] Comment on above: Performed By: #### 1 9123-9, 33398-1, CMP, 65684-9, 98938-8, CBCA, 5643-2, PINR #### [facility] ([id number]) [address] [place] [address] 89524 Potassium [Moles/Vol] 4.3 mmol/L Normal 3.5-5.0 [facility] Comment on above: Performed By: #### 1 9123-9, 34922-9, CMP, 51427-8, 69459-9, CBCA, 5643-2, PINR #### [facility] ([id number]) [address] [place] [address] 92940 Protein [Mass/Vol] 6.0 g/dL Normal 6.0-8.0 [facility] Comment on above: Performed By: #### 1 9123-9, 58215-6, CMP, 84905-6, 98534-0, CBCA, 5643-2, PINR #### [facility] ([id number]) [address] [place] [address] 85846 Sodium [Moles/Vol] 138 mmol/L Normal 134-146 [facility] Comment on above: Performed By: #### 1 9123-9, 63364-9, CMP, 75659-6, 63946-3, CBCA, 5643-2, PINR #### [facility] ([id number]) [address] [place] [address] 80202 Urea nitrogen [Mass/Vol] 25 mg/dL Normal 5-27 [facility] Comment on above: Performed By: #### 1 9123-9, 52347-0, [facility], 89292-2, 28242-1, CBCA, 5643-2, PINR #### [facility] ([id number]) [address] [place] [address] BRAIN WO CONTon CT BRAIN WO [...] Moran MD on 08/09/2024 12:54 PM Normal [facility] DRUG SCREEN, URINEon 024 AMPHETAMINE/METHAMP Negative Normal NEG [facility] Comment on above: Result Comment: AMPH /METH screening cut off = 1000 ng/mL Performed By: #### 1 9123-9, 60928-7, CMP, 65909-3, 92844-9, CBCA, 5643-2, PINR #### [facility] ([id number]) [address] [place] [address] 21982 BARBITURATES Negative Normal NEG [facility] Comment on above: Result Comment: Maria Eugenia iturates screening cut off value = 200 ng/mL Performed By: #### 1 9123-9, 21041-5, CMP, 33540-7, 61844-2, CBCA, 5643-2, PINR #### [facility] ([id number]) [address] [place] [address] 31930 BENZODIAZEPINES Negative Normal NEG [facility] Comment on above: Result Comment: Paulie odiazepines screening cut off value = 200 ng/mL Performed By: #### 1 9123-9, 10753-4, CMP, 30808-3, 27357-4, CBCA, 5643-2, PINR #### [facility] ([id number]) [address] [place] [address] 59706 CANNABINOIDS Negative Normal NEG [facility] Comment on above: Result Comment: Nora abinoids/THC screening cut off value = 50 ng/mL Performed By: #### 1 9123-9, 37132-1, CMP, 61377-8, 59259-5, CBCA, 5643-2, PINR #### [facility] ([id number]) [address] [place] [address] 90540 COCAINE METABOLITE Negative Normal NEG [facility] Comment on above: Result Comment: Coca ine screening cut off value = 300 ng/mL Performed By: #### 1 9123-9, 32627-1, CMP, 03161-2, 30442-1, CBCA, 5643-2, PINR #### [facility] ([id number]) [address] [place] [address] 20878 ECSTASY Negative Normal NEG [facility] Comment on above: Result Comment: Ecst asy screening cut off value = 500 ng/mL This report is intended for use in clinical monitoring or management of patients. Performed By: #### 1 9123-9, 95075-2, CMP, 18173-0, 75817-6, CBCA, 5643-2, PINR #### [facility] ([id number]) [address] [place] [address] 49372 METHADONE Negative Normal NEG [facility] Comment on above: Result Comment: Meth adone screening cut off value = 300 ng/mL. Performed By: #### 1 9123-9, 04770-2, [facility], 07365-8, 55229-7, CBCA, 5643-2, PINR #### [facility] ([id number]) [address] [place] [address] 58344 OPIATES Negative Normal NEG [facility] Comment on above: Result Comment: Opia brennen screening cut off value = 300 ng/mL NOTE: This test is used for the detection of codeine, hydrocodone (>1000 ng/mL), morphine and hydromorphone (>900 ng/mL) in urine. Performed By: #### 1 9123-9, 52002-2, [facility], 77212-9, 72201-0, CBCA, 5643-2, PINR #### [facility] ([id number]) [address] [place] [address] 66429 OXYCODONE Negative Normal NEG [facility] Comment on above: Result Comment: Oxyc odone screening cut off value = 300 ng/mL NOTE: This test is used for the detection of oxycodone and oxymorphone in urine. Performed By: #### 1 9123-9, 61781-3, [facility], 66562-7, 75155-9, CBCA, 5643-2, PINR #### [facility] ([id number]) [address] [place] [address] 96285 PHENCYCLIDINE Negative Normal NEG [facility] Comment on above: Result Comment: Phen cyclidine screening cut off value = 25 ng/mL Performed By: #### 1 9123-9, 08222-3, CMP, 82328-0, 93738-6, CBCA, 5643-2, PINR #### [facility] ([id number]) [address] [place] [address] 56329 ETHANOLon 08-09-2024 Ethanol [Mass/Vol] mg/dL Normal 0.00-0.08 [facility] Comment on above: Result Comment: This report is intended for use in clinical monitoring or management of patients. Performed By: #### 1 9123-9, 75799-1, CMP, 89537-8, 99485-3, CBCA, 5643-2, PINR #### [facility] ([id number]) [address] [place] [address] 48593 Fibrin D-dimer DDU (PPP) [Ma ss/Vol]on 08-09-2024 D DIMER 167 ng/mL DDU Normal <255 [facility] Comment on above: Result Comment: Results <255 ng/mL DDU: The presence of a VTE can safely be excluded with a negative D-Dimer result and Wells score. A negative result doesn't exclude the possibility of DIC. The test be repeated along with other diagnostic tests if the patient's symptoms persist or worsen. [email or web address] Performed By: #### 1 9123-9, 80021-8, [facility], 20192-8, 53640-1, CBCA, 5643-2, PINR #### [facility] ([id number]) [address] [place] [address] 51503 MAGNESIUMon 08-09-2024 Magnesium [Mass/Vol] 1.4 mg/dL Low 1.8-2.6 [facility] Comment on above: Performed By: #### 1 9123-9, 66241-7, CMP, 82299-3, 55898-7, CBCA, 5643-2, PINR #### [facility] ([id number]) [address] [place] [address] 07781 PROTIME AND INRon 08-09-2024 INR Coag (PPP) [Relative time] 1.2 {INR} High 0.8-1.1 [facility] Comment on above: Performed By: #### 1 9123-9, 56852-7, CMP, 93526-3, 40595-9, CBCA, 5643-2, PINR #### [facility] ([id number]) [address] [place] [address] 09564 PT Coag (PPP) [Time] 14.3 s High 9.8-13.2 [facility] Comment on above: Result Comment: NEW REFERENCE RANGE Performed By: #### 1 9123-9, 26168-5, CMP, 90948-0, 21941-0, CBCA, 5643-2, PINR #### [facility] ([id number]) [address] [place] [address] 74333 Troponin I.cardiac High sens itivity method [Mass/Vol]on 08-09-2024 1 HOUR TROP I, HIGH SENSITIVITY 10 ng/L Normal <21 [facility] Comment on above: Performed By: #### 1 9123-9, 45379-6, CMP, 52326-5, 15942-5, CBCA, 5643-2, PINR #### [facility] ([id number]) [address] [place] [address] 20638 TROPONIN I, HIGH SENSITIVITY 8 ng/L Normal <21 [facility] Comment on above: Performed By: #### 1 9123-9, 43095-6, CMP, 82008-0, 08684-6, CBCA, 5643-2, PINR #### [facility] ([id number]) [address] [place] [address] 50134 URINALYSISon 08-09-2024 Bilirubin Ql (U) Negative Normal NEG [facility] Comment on above: Performed By: #### 1 9123-9, 99277-0, CMP, 37315-1, 35926-4, CBCA, 5643-2, PINR #### [facility] ([id number]) [address] [place] [address] 86547 BLOOD/HGB Negative Normal NEG [facility] Comment on above: Performed By: #### 1 9123-9, 94542-8, CMP, 89133-9, 89871-5, CBCA, 5643-2, PINR #### [facility] ([id number]) [address] [place] [address], [place] [address] Color (U) YELLOW Normal YELLOW [facility] Comment on above: Performed By: #### 1 9123-9, 55896-3, CMP, 49931-8, 86423-2, CBCA, 5643-2, PINR #### [facility] ([id number]) [address] [place] [address] 10200 Glucose Ql (U) Negative Normal NEG [facility] Comment on above: Performed By: #### 1 9123-9, 39504-5, CMP, 59157-1, 17894-3, CBCA, 5643-2, PINR #### [facility] ([id number]) [address] [place] [address], [place] [address] Ketones Ql (U) Negative Normal NEG [facility] Comment on above: Performed By: #### 1 9123-9, 84012-5, CMP, 13204-7, 35351-5, CBCA, 5643-2, PINR #### [facility] ([id number]) [address] [place] [address], [place] [address] Leukocyte esterase Test strip Ql (U) Negative Normal NEG [facility] Comment on above: Performed By: #### 1 9123-9, 53488-3, CMP, 20298-9, 72511-5, CBCA, 5643-2, PINR #### [facility] ([id number]) [address] [place] [address] 18044 Nitrite Ql (U) Negative Normal NEG [facility] Comment on above: Performed By: #### 1 9123-9, 97658-4, CMP, 44317-5, 42689-6, CBCA, 5643-2, PINR #### [facility] ([id number]) [address] [place] [address] 50410 pH (U) 6.0 [pH] Normal 5.0-8.5 [facility] Comment on above: Performed By: #### 1 9123-9, 36199-5, CMP, 92595-1, 45906-9, CBCA, 5643-2, PINR #### [facility] ([id number]) [address] [place] [address] 71486 Protein Ql (U) Negative Normal NEG [facility] Comment on above: Performed By: #### 1 9123-9, 79902-1, CMP, 77145-4, 95127-0, CBCA, 5643-2, PINR #### [facility] ([id number]) [address] [place] [address] 02153 Specific gravity (U) [Rel density] 1.025 Normal 1.003-1.03 5 [facility] Comment on above: Performed By: #### 1 9123-9, 13913-2, CMP, 26463-1, 40712-4, CBCA, 5643-2, PINR #### [facility] ([id number]) [address] [place] [address] 74710 TURBIDITY CLEAR Normal CLEAR [facility] Comment on above: Performed By: #### 1 9123-9, 28399-3, CMP, 87410-1, 93109-9, CBCA, 5643-2, PINR #### [facility] ([id number]) [address] [place] [address] 97637 Urobilinogen Qn (U) 0.2 {Temo'U}/dL Normal <1.1 [facility] Comment on above: Performed By: #### 1 9123-9, 43138-7, CMP, 39955-9, 49886-7, CBCA, 5643-2, PINR #### [facility] ([id number]) [address] [place] [address] 95103 URN MACROSCOPIC NURon 2023 BILIRUBIN FRANKLIN Negative Normal NEG [facility] Comment on above: Performed By: #### N UM #### [facility] ([id number]) [address] [place] [address] 66291 BLOOD/HGB FRANKLIN Negative Normal NEG [facility] Comment on above: Performed By: #### N UM #### [facility] ([id number]) [address] [place] [address] 19314 GLUCOSE FRANKLIN Negative Normal NEG [facility] Comment on above: Performed By: #### N UM #### [facility] ([id number]) [address] [place] [address] 90548 KETONES FRANKLIN Negative Normal NEG [facility] Comment on above: Performed By: #### N UM #### [facility] ([id number]) [address] [place] [address] 46364 LEUKOCYTE ESTERASE FRANKLIN Negative Normal NEG [facility] Comment on above: Performed By: #### N UM #### [facility] ([id number]) [address] [place] [address] 02695 NITRITE FRANKLIN Negative Normal NEG [facility] Comment on above: Performed By: #### N UM #### [facility] ([id number]) [address] [place] [address] 31212 PH FRANKLIN 5.5 Normal 5.0-8.5 [facility] Comment on above: Performed By: #### N UM #### [facility] ([id number]) [address] [place] [address] 11355 PROTEIN FRANKLIN Negative Normal NEG [facility] Comment on above: Performed By: #### N UM #### [facility] ([id number]) [address] [place] [address] SPECIFIC GRAVITY FRANKLIN 1.020 Normal 1.003-1 .03 5 [facility] Comment on above: Performed By: #### N UM #### [facility] ([id number]) [address] [place] [address] 55222 UROBILINOGEN FRANKLIN 0.2 eu/dL Normal <1.1 [facility] Comment on above: Performed By: #### N UM #### [facility] ([id number]) [address] [place] [address] 00954 aPTT Coag (PPP) [Time]on aPTT Coag (Bld) [Time] 33 s Normal 26-37 [facility] Comment on above: Result Comment: NEW REFERENCE RANGE Performed By: #### 1 9123-9, 69281-0, CMP, 20219-1, 40799-4, CBCA, 5643-2, PINR #### [facility] ([id number]) [address] [place] [address] 88887 36on 04-18-2024 36 From: Jessica muñoz MD Sent: 04/18/2024 12:32 PM EDT To: Yuridia Nuñez MA Subject: RE: Scan Please inform him that blood testing for clotting disorder is negative. He should follow up with Dr Godwin for cancer screening. Pt has been notified [facility] Office Visiton 04-06-2024 Follow-up visit [id number] Jeb Riddle 1950 M Date Provider Department Center 04/06/2024 JESSICA JAMISON [facility] Lori Nicole Family History Problem Relation Age of Onset Diabetes Mother Coronary artery disease Mother Heart attack Father Diabetes Father Coronary artery disease Father Family Status - Relation Status Age at Mother Father Level of Service:10729 SD OFFICE/OUTPATIENT ESTABLISHED MOD MDM 30 MIN [facility] 36on 02-17-2024 36 Patient called back and said he is taking meds as prescribed at last visit with Dr. Forrester. I made him apt with Dr. Forrester end of Mar since he is not here in Apr. [facility] 36on 02-15-2024 36 Regarding echo from 02/02/2024: MD Yuridia Herman MA Has he been taking meds as I recommended at last visit? 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 He should come for a visit in 3 months. LM w/ sister Mary to return my call. [facility] Activated partial thrombopla stin time (aPTT) in platelet poor plasma by coagulation aOrdered By: Naima Boyd on 01-09-2024 aPTT Coag (PPP) [Time] 29.1 s 25.1-36.5 [facility] Comment on above: A hematocrit value g reater than 55% may lead to inaccurate results in coagulation testing. Patients having hematocrit values >55% require a special collection tube for coagulation studies. Please contact the laboratory at [phone] for redraw instructions. B-Type Natriuretic Peptideon 01-09-2024 Natriuretic peptide B (Bld) [Mass/Vol] 172.0 pg/mL High 5-100 [facility] Comment on above: Result Comment: PERF ORMED BY: [facility] [address] [place] [id number] PATHOLOGIST TROUBLE LOCATER RADHA BARRON M.D. Performed By: #### B [employer]ISTS, HS TROP, BMP, CK, DIFF CBC ####[facility] [id number] [place] [address] [facility] Basic Metabolic Panelon 12-14 Anion gap [Moles/Vol] Not performed Normal 6.0-15.0 [facility] Comment on above: Performed By: #### B ENVIRONMENTAL SCIENTISTS, HS TROP, BMP, CK, DIFF CBC ####[facility] [place] [address] [facility] Calcium [Mass/Vol] 8.7 mg/dL Normal 8.6-10.3 [facility] Comment on above: Performed By: #### B ENVIRONMENT[employer] SCIENTISTS, HS TROP, BMP, CK, DIFF CBC ####[address] Chloride [Moles/Vol] 109 mmol/L High 98-107 [facility] Comment on above: Performed By: #### B [employer]ON[employer] SCIENTISTS, HS TROP, BMP, CK, DIFF CBC ####[address] CO2 [Moles/Vol] 22.4 mmol/L Normal 21.0-31.0 [facility] Comment on above: Performed By: #### B EN[employer] SCIENTISTS, HS TROP, BMP, CK, DIFF CBC ####[address] Creatinine [Mass/Vol] 1.16 mg/dL Normal 0.70-1.30 [facility] Comment on above: Performed By: #### B ENVIRONMENT[employer] SCIENTISTS, HS TROP, BMP, CK, DIFF CBC ####[address] Creatinine Clr Calc Pharmacy 64.96 Normal [facility] Comment on above: Result Comment: PERF ORMED BY: [facility] [address] [place] [address] PATHOLOGIST TROUBLE LOCATER RADHA BARRON M.D. Performed By: #### B [employer] SCI[employer]ISTS, HS TROP, BMP, CK, DIFF CBC ####[address] GFR/1.73 sq M.predicted MDRD (S/P/Bld) [Vol rate/Area] mL/min/{1.73_m2} Normal [facility] Comment on above: Performed By: #### B ENV[employer] SCIENTISTS, HS TROP, BMP, CK, DIFF CBC ####[address] Glucose [Mass/Vol] 95 mg/dL Normal 70-100 [facility] Comment on above: Result Comment: [facility] Glucose Reference Range is dependent on time and content of last meal. Glucose of more than 200 mg/dL in a nonstressed, ambulatory subject supports the diagnosis of Diabetes Mellitus. ADA recommended reference range Performed By: #### B ENVIRONMENTAL SCIENTISTS, HS TROP, BMP, CK, DIFF CBC ####[place] [address] [address] Potassium Normal 3.5-5.1 [facility] Comment on above: Result Comment: Spec imen hemolyzed, redraw requested Performed By: #### B ENVIRONMENT[employer] SCIENTISTS, HS TROP, BMP, CK, DIFF CBC ####[address] Sodium [Moles/Vol] 142 mmol/L Normal 136-145 [facility] Comment on above: Performed By: #### B ENVIRONMENT[employer] SCIENTISTS, HS TROP, BMP, CK, DIFF CBC ####[place] [address] [address] Urea nitrogen [Mass/Vol] 20 mg/dL Normal 7-25 [facility] Comment on above: Performed By: #### B ENVIRONMENT[employer] SCIENTISTS, HS TROP, BMP, CK, DIFF CBC ####[address] Basophils Auto (Bld) [#/Vol] Ordered By: Naima Boyd on 01-09-2024 Basophils (Bld) [#/Vol] N/A [facility] Basophils/100 WBC Auto (Bld) Ordered By: Naima Boyd on 01-09-2024 Basophils/100 WBC (Bld) N/A [facility] Basophils/100 WBC Manual cnt (Bld)Ordered By: Naima Boyd on 01-09-2024 Basophils/100 WBC (Bld) 0 % 0-[address] [facility] [address] angio chest PE protocolon 01-09-2024 CT angio chest PE protocol [facility] [address] [place] [address] [place] [address] CT Scan Report Signed Patient: Jeb Riddle MR#: [id number] : 1950 Acct:[id number] Age/Sex: 73 / M ADM Date: 01/09/24 Loc: ER Room: Type: [facility] ER Attending Dr: Copies to: SABA [...] Jeb Collins M.D.01/09/2024 6:17 PM Dictation Location: [place] [address] Transcribed By: [facility] 01/09/241816 Dictated By: Jeb Collins II, MD 01/09/241810 Signed By: 01/09/241816 Normal [facility] Calcium [Mass/volume] in Ser um or PlasmaOrdered By: Naima Boyd on 01-09-2024 Calcium [Mass/Vol] 8.7 mg/dL 8.6-10.3 [facility] Carbon dioxide, total [Moles /volume] in Serum or PlasmaOrdered By: Naima Boyd on 01-09-2024 CO2 [Moles/Vol] 22.4 mmol/L 21.0-31.0 [facility] Chloride [Moles/volume] in S pooja or PlasmaOrdered By: Naima Boyd on 01-09-2024 Chloride [Moles/Vol] 109 mmol/L 98-107 [facility] Coagulation Profileon 2023 aPTT Coag (Bld) [Time] 29.1 s Normal 25.1-36.5 [facility] Comment on above: Order Comment: REDRA W Result Comment: A he matocrit value greater than 55% may lead to inaccurate results in coagulation testing. Patients having hematocrit values >55% require a special collection tube for coagulation studies. Please contact the laboratory at [phone] for redraw instructions. Performed By: #### P P, DDIMER ####[facility] [place] [address] [facility] INR Coag (PPP) [Relative time] 1.0 {INR} Normal [facility] Comment on above: Order [...] 4.5 Performed By: #### P P, DDIMER ####[facility] [id number] [place] [address] [facility] PT Coag (PPP) [Time] 11.9 s Normal 9.0-12.9 [facility] Comment on above: Order Comment: REDRA W Result Comment: A he matocrit value greater than 55% may lead to inaccurate results in coagulation testing. Patients having hematocrit values >55% require a special collection tube for coagulation studies. Please contact the laboratory at [phone] for redraw instructions. Performed By: #### P P, DDIMER ####[facility] [place] [id number] [facility] Creatine Kinaseon 01-09-2024 CK [Catalytic activity/Vol] 81 U/L Normal [facility] Comment on above: Performed By: #### B [employer], HS TROP, BMP, CK, DIFF CBC ####[place] [id number] [place] [id number] [facility] Creatine kinase [Enzymatic a ctivity/volume] in Serum or PlasmaOrdered By: Naima Bullimore on 01-09-2024 CK [Catalytic activity/Vol] 81 U/L [place] [facility] Creatinine [Mass/volume] in Serum or PlasmaOrdered By: [facility] [place] on 01-09-2024 Creatinine [Mass/Vol] 1.16 mg/dL 0.70-1.30 [facility] D-Dimer High Sensitivityon 0 01-09-2024 D-Dimer High Sensitivity 1905 ng/mL High 0-243 [facility] Comment on above: Order [...] coagulation studies. Please contact the laboratory at [phone] for redraw instructions. PERFORMED BY: [facility] [address] [place] [address] PATHOLOGIST TROUBLE LOCATER RADHA BARRON M.D. Performed By: #### P P, DDIMER ####[address] Diff and CBCon 01-09-2024 Basophils/100 WBC (Bld) 0 % Normal 0-2 [facility] Comment on above: Performed By: #### B ENVIRONMENTAL SCIENTISTS, HS TROP, BMP, CK, DIFF CBC ####[address] Eosinophils/100 WBC (Bld) 4 % High 1-3 [facility] Comment on above: Performed By: #### B ENVIRONMENTAL SCIENTISTS, HS TROP, BMP, CK, DIFF CBC ####[address] Erythrocyte distribution width (RBC) [Ratio] 14.9 % High 12.0-14.8 [facility] Comment on above: Performed By: #### B ENVIRONMENTAL SCIENTISTS, HS TROP, BMP, CK, DIFF CBC ####[address] Hematocrit (Bld) [Volume fraction] 41.9 % Normal 38.8-50.0 [facility] Comment on above: Performed By: #### B ENVIRONMENTAL SCIENTISTS, HS TROP, BMP, CK, DIFF CBC ####[address] Hemoglobin (Bld) [Mass/Vol] 14.1 g/dL Normal 13.0-17.0 [facility] Comment on above: Performed By: #### B ENVIRONMENTAL SCIENTISTS, HS TROP, BMP, CK, DIFF CBC ####[address] Lymphocytes/100 WBC (Bld) 27 % Normal 18-42 [facility] Comment on above: Performed By: #### B ENVIRONMENTAL SCIENTISTS, HS TROP, BMP, CK, DIFF CBC ####[address] MCH (RBC) [Entitic mass] 32.0 pg Normal 27.5-35.2 [facility] Comment on above: Performed By: #### B ENVIRONMENTAL SCIENTISTS, HS TROP, BMP, CK, DIFF CBC ####[address] MCV (RBC) [Entitic vol] 95.1 fL Normal 83.5-101 [facility] Comment on above: Performed By: #### B ENVIRONMENTAL SCIENTISTS, HS TROP, BMP, CK, DIFF CBC ####[address] Mean Corpuscular HGB Conc 33.6 g/dL Normal 32.5-35.6 [facility] Comment on above: Performed By: #### B ENVIRONMENTAL SCIENTISTS, HS TROP, BMP, CK, DIFF CBC ####[address] Monocytes/100 WBC (Bld) 25.58 % High 0.00-20.00 [facility] Comment on above: Result Comment: For adults in ED, MDW > 20.0 may be associated with a higher risk of sepsis during the first 12 hrs of hospital admission Performed By: #### B ENVIRONMENTAL SCIENTISTS, HS TROP, BMP, CK, DIFF CBC ####[address] Monocytes/100 WBC (Bld) 7 % Normal 2-11 [facility] Comment on above: Performed By: #### B ENVIRONMENTAL SCIENTISTS, HS TROP, BMP, CK, DIFF CBC ####[address] Nucleated Red Blood Cell 0 /100{WBC} Normal 0-0 [facility] Comment on above: Performed By: #### B ENVIRONMENTAL SCIENTISTS, HS TROP, BMP, CK, DIFF CBC ####[address] Platelet Estimate Normal Normal Normal [facility] Comment on above: Performed By: #### B ENVIRONMENTAL SCIENTISTS, HS TROP, BMP, CK, DIFF CBC ####[address] Platelet mean volume (Bld) [Entitic vol] 8.6 fL Normal 6.6-10.1 [facility] Comment on above: Performed By: #### B ENVIRONMENTAL SCIENTISTS, HS TROP, BMP, CK, DIFF CBC ####[address] Platelet Morphology Normal Normal Normal [facility] Comment on above: Performed By: #### B ENVIRONMENTAL SCIENTISTS, HS TROP, BMP, CK, DIFF CBC ####[address] Platelets (Bld) [#/Vol] 240 10*3/uL Normal 150-450 [facility] Comment on above: Performed By: #### B ENVIRONMENTAL SCIENTISTS, HS TROP, BMP, CK, DIFF CBC ####[address] Plt Comment SEE COMMENT BELOW Normal [facility] Comment on above: Result Comment: NO C LOTS, NO CLUMPS, SHORT DRAW LFM PERFORMED BY: [place] [address] PATHOLOGIST TROUBLE LOCATER RADHA BARRON M.D. Performed By: #### B ENVIRONMENTAL SCIENTISTS, HS TROP, BMP, CK, DIFF CBC ####[address] RBC (Bld) [#/Vol] 4.41 10*6/uL Normal 3.90-5.60 [facility] Comment on above: Performed By: #### B ENVIRONMENTAL SCIENTISTS, HS TROP, BMP, CK, DIFF CBC ####[address] RBC morphology finding Nom (Bld) Normal Normal Normal [facility] Comment on above: Performed By: #### B ENVIRONMENTAL SCIENTISTS, HS TROP, BMP, CK, DIFF CBC ####[address] Segmented neutrophils/100 WBC (Bld) 62 % Normal 50-70 [facility] Comment on above: Performed By: #### B ENVIRONMENTAL SCIENTISTS, HS TROP, BMP, CK, DIFF CBC ####[address] WBC (Bld) [#/Vol] 7.6 10*3/uL Normal 4.1-10.5 [facility] Comment on above: Performed By: #### B ENVIRONMENTAL SCIENTISTS, HS TROP, BMP, CK, DIFF CBC ####[place] [address] [place] [id number] [facility] WBC (Bld) [#/Vol] 8.4 10*3/uL Normal 4.1-10.5 [facility] Comment on above: Performed By: #### B ENVIRONMENTAL SCIENTISTS, HS TROP, BMP, CK, DIFF CBC ####[facility] [id number] [place] [id number] [facility] ECG 12 lead ECGon 01-09-2024 ECG [address] [facility] [place] [address] Electrocardiograph Report Signed Patient: Jeb Riddle MR#: [id number] : 1950 Acct:[id number] Age/Sex: 73 / M ADM Date: 01/09/24 Loc: ER Room: Type: [facility] ER Attending Dr: Ordering Provider: SABA [...] By Timothy Patterson DO 1828 Normal [facility] Eosinophils Auto (Bld) [#/Vo l]Ordered By: Naima Boyd on 01-09-2024 Eosinophils (Bld) [#/Vol] N/A [facility] Eosinophils/100 WBC Auto (Bl d)Ordered By: Naima Boyd on 01-09-2024 Eosinophils/100 WBC (Bld) N/A [facility] Eosinophils/100 WBC Manual c nt (Bld)Ordered By: Naima Boyd on 01-09-2024 Eosinophils/100 WBC (Bld) 4 % 1-3 [facility] Erythrocyte distribution wid th Auto (RBC) [Ratio]Ordered By: Naima Boyd on 01-09-2024 Erythrocyte distribution width (RBC) [Ratio] 14.9 % 12.0-14.8 [facility] Fibrin D-dimer [Presence] in Platelet poor plasma by Latex agglutinationOrdered By: Naima Boyd on 01-09-2024 Fibrin D-dimer LA Ql (PPP) 1905 ng/mL 0-243 [facility] Comment on above: The reference range [...] coagulation studies. Please contact the laboratory at [phone] for redraw instructions. Glucose [Mass/volume] in Ser um or PlasmaOrdered By: Naima Boyd on 01-09-2024 Glucose [Mass/Vol] 95 mg/dL 70-100 [facility] Comment on above: ADA recommended refe rence rangeRandom Glucose Reference Range is dependent on time and content of last meal. Glucose of more than 200 mg/dL in a nonstressed, ambulatory subject supports the diagnosis of Diabetes Mellitus. Hematocrit Auto (Bld) [Volum e fraction]Ordered By: Naima Boyd on 01-09-2024 Hematocrit (Bld) [Volume fraction] 41.9 % 38.8-50.0 [facility] Hemoglobin [Mass/volume] in BloodOrdered By: Naima Boyd on 01-09-2024 Hemoglobin (Bld) [Mass/Vol] 14.1 g/dL 13.0-17.0 [facility] INR in Platelet poor plasma by Coagulation assayOrdered By: Naima Boyd on 01-09-2024 INR Coag (PPP) [Relative time] 1.0 {INR} [facility] Comment on above: INR Therapeutic Rang [...] RBC Auto (Bld) [#/Vol] 7.6 10*3/uL 4.1-10.5 [facility] Lymphocytes Auto (Bld) [#/Vo l]Ordered By: Naima Boyd on 01-09-2024 Lymphocytes (Bld) [#/Vol] N/A [facility] Lymphocytes/100 WBC Auto (Bl d)Ordered By: Naima Boyd on 01-09-2024 Lymphocytes/100 WBC (Bld) N/A [facility] Lymphocytes/100 WBC Manual c nt (Bld)Ordered By: Naima Boyd on 01-09-2024 Lymphocytes/100 WBC (Bld) 27 % 18-42 [facility] MCH Auto (RBC) [Entitic mass ]Ordered By: Naima Boyd on 01-09-2024 MCH (RBC) [Entitic mass] 32.0 pg 27.5-35.2 [facility] MCHC Auto (RBC) [Mass/Vol]Or dered By: Naima Boyd on 01-09-2024 MCHC (RBC) [Mass/Vol] 33.6 g/dL 32.5-35.6 [facility] MCV Auto (RBC) [Entitic vol] Ordered By: Naima Boyd on 01-09-2024 MCV (RBC) [Entitic vol] 95.1 fL 83.5-101 [facility] Monocyte distribution width [Entitic volume] in Blood by AutomatedOrdered By: Naima [place] on 01-09-2024 Monocyte distribution width Auto (Bld) [Entitic vol] 25.58 % 0.00-20.00 [facility] Comment on above: For adults in ED, MD W > 20.0 may be associated with a higher risk of sepsis during the first 12 hrs of hospital admission Monocytes Auto (Bld) [#/Vol] Ordered By: Naima [place] on 01-09-2024 Monocytes (Bld) [#/Vol] N/A [facility] Monocytes/100 WBC Auto (Bld) Ordered By: Naima [place] on 01-09-2024 Monocytes/100 WBC (Bld) N/A [facility] Monocytes/100 WBC Manual cnt (Bld)Ordered By: Naima [place] on 01-09-2024 Monocytes/100 WBC (Bld) 7 % 2-11 [facility] Natriuretic peptide B [Mass/ Vol]Ordered By: Naima [place] on 01-09-2024 Natriuretic peptide B (Bld) [Mass/Vol] 172.0 pg/mL 5-100 [facility] Neutrophils Auto (Bld) [#/Vo l]Ordered By: Naima [place] on 01-09-2024 Neutrophils (Bld) [#/Vol] N/A [facility] Neutrophils/100 WBC Auto (Bl d)Ordered By: Naima [place] on 01-09-2024 Neutrophils/100 WBC (Bld) N/A [facility] No Panel InformationOrdered By: Naima [place] on 01-09-2024 Estimated GFR (CKD-EPI) > 60.0 mL/Min [facility] Creatinine Clearance (Chem 64.96 [facility] Platelet Comment See comment below [facility] Comment on above: NO CLOTS, NO CLUMPS, SHORT DRAW LFM Nucleated RBC/100 WBC Manual cnt (Bld) [Ratio]Ordered By: Naima [place] on 01-09-2024 Nucleated RBC/100 WBC (Bld) [Ratio] 0 /100{WBC} 0-0 [facility] Nucleated erythrocytes [Pres ence] in Blood by Automated countOrdered By: Naima [place] on 01-09-2024 Nucleated RBC Auto Ql (Bld) N/A [facility] Platelet adequacy [Presence] in Blood by Light microscopyOrdered By: Naima Boyd on 01-09-2024 Platelets LM Ql (Bld) Normal Normal [facility] Platelet mean volume Auto (B ld) [Entitic vol]Ordered By: Naima Rutherfordore on 01-09-2024 Platelet mean volume (Bld) [Entitic vol] 8.6 fL 6.6-10.1 [facility] Platelet morphology finding [Identifier] in BloodOrdered By: Naima Godwinimore on 01-09-2024 Platelet morphology finding Nom (Bld) Normal Normal [facility] Platelets Auto (Bld) [#/Vol] Ordered By: Naima Rutherfordore on 01-09-2024 Platelets (Bld) [#/Vol] 240 10*3/uL 150-450 [facility] Potassium [Moles/volume] in Serum or PlasmaOrdered By: Naima Boyd on 01-09-2024 Potassium [Moles/Vol] 3.9 mmol/L 3.5-5.1 [facility] Prothrombin time (PT)Ordered By: Naima Boyd on 01-09-2024 PT Coag (PPP) [Time] 11.9 s 9.0-12.9 [facility] Comment on above: A hematocrit value g reater than 55% may lead to inaccurate results in coagulation testing. Patients having hematocrit values >55% require a special collection tube for coagulation studies. Please contact the laboratory at [phone] for redraw instructions. RBC Auto (Bld) [#/Vol]Ordere d By: Naima Boyd on 01-09-2024 RBC (Bld) [#/Vol] 4.41 10*6/uL 3.90-5.60 [facility] RBC morphologyOrdered By: Sabine Boyd on 01-09-2024 RBC morphology finding Nom (Bld) Normal Normal [facility] Redraw Potassiumon Potassium [Moles/Vol] 3.9 mmol/L Normal 3.5-5.1 [facility] Comment on above: Result Comment: PERF ORMED BY: [place] [phone] PATHOLOGIST TROUBLE LOCATER RADHA BARRON M.D. Performed By: #### R EDRAW K ####[facility] [id number] [place] [address] Segmented neutrophils/100 WB C Manual cnt (Bld)Ordered By: Naima [place] on 01-09-2024 Segmented neutrophils/100 WBC (Bld) 62 % 50-70 [facility] Serum or plasma anion gap de terminationOrdered By: Naima [place] on 01-09-2024 Anion gap [Moles/Vol] TNP [facility] Comment on above: Test not performed Sodium [Moles/volume] in Ser um or PlasmaOrdered By: Naima [place] on 01-09-2024 Sodium [Moles/Vol] 142 mmol/L 136-145 [facility] Troponin I High Sensitivityo n 01-09-2024 Troponin I High Sensitivity 13.1 pg/mL Normal 0.0-20.0 [facility] Comment on above: Result Comment: PERF ORMED BY: [place] [phone] PATHOLOGIST TROUBLE LOCATER RADHA BARRON M.D. Performed By: #### H S TROP #### [facility] [address] [place] [address] Troponin I High Sensitivity 12.5 pg/mL Normal 0.0-20.0 [facility] Comment on above: Result Comment: PERF ORMED BY: [place] [phone] PATHOLOGIST TROUBLE LOCATER RADHA BARRON M.D. Performed By: #### B ENVIRONMENTAL SCIENTISTS, HS TROP, BMP, CK, DIFF CBC ####[facility] [id number] [place] [address] Troponin I.cardiac [Mass/vol ume] in Serum or Plasma by Detection limit <= 0.01 ng/Ordered By: Naima [place] on 01-09-2024 Troponin I.cardiac DL <= 0.01 ng/mL [Mass/Vol] 13.1 pg/mL 0.0-20.0 [facility] Urea nitrogen [Mass/volume] in Serum or PlasmaOrdered By: Naima Boyd on 01-09-2024 Urea nitrogen [Mass/Vol] 20 mg/dL 03-08 [facility] WBC Auto (Bld) [#/Vol]Ordere d By: Naima Boyd on 01-09-2024 WBC (Bld) [#/Vol] 8.4 10*3/uL 4.1-10.5 [facility] XR chest 2V*on 01-09-2024 XR chest 2V* [place] [id number] XRay Report Signed Patient: Jeb Riddle MR#: [id number] : 1950 Acct:[id number] Age/Sex: 73 / M ADM Date: 01/09/24 Loc: ER Room: Type: [facility] ER Attending Dr: Copies to: SABA [...] Jeb Collins M.D.01/09/2024 4:11 PM Dictation Location: [place] [address] Transcribed By: [facility] 01/09/24 1611 Dictated By: Jeb Collins II, MD 01/09/24 1610 Signed By: 01/09/24 1611 Normal [facility] ECG 12 lead ECGon 12-18-2023 ECG 12 lead ECG [address] [address] Electrocardiograph Report Signed Patient: Jeb Riddle MR#: [id number] : 1950 Acct:[id number] Age/Sex: 73 / M ADM Date: 12/18/23 Loc: ER Room: Type: [facility] ER Attending Dr: Ordering Provider: [...] was found Confirmed by RAMIRO CORTEZ DO ([id number]) on 12/18/2023 4:44:01 PM Referred By: Electronically Signed By:RAMIRO CORTEZ DO Transcribed By: MUS Signed By Ramiro Cortez DO 12/17 1644 Normal [facility] Activated partial thrombopla stin time (aPTT) in platelet poor plasma by coagulation aOrdered By: Ramiro Cotrez on 03-03-2023 aPTT Coag (PPP) [Time] 29.7 s 25.1-36.5 [facility] B-Type Natriuretic Peptideon 03-03-2023 Natriuretic peptide B (Bld) [Mass/Vol] 52.0 pg/mL Normal 5-100 [facility] Comment on above: Result Comment: PERF ORMED BY: [facility] [address] [place] [address] PATHOLOGIST TROUBLE LOCATER RADHA BARRON M.D. Performed By: #### C BC, CK, PT, PTT, BMP, HS TROP, BNP ####[facility] [id number] [place] [address] [facility] Basic Metabolic Panelon 02-13 Anion gap [Moles/Vol] 10.6 mmol/L Normal 6.0-15.0 [facility] Comment on above: Performed By: #### C BC, CK, PT, PTT, BMP, HS TROP, BNP ####[address] Calcium [Mass/Vol] 8.6 mg/dL Normal 8.6-10.3 [facility] Comment on above: Performed By: #### C BC, CK, PT, PTT, BMP, HS TROP, BNP ####[address] Chloride [Moles/Vol] 108 mmol/L High 98-107 [facility] Comment on above: Performed By: #### C BC, CK, PT, PTT, BMP, HS TROP, BNP ####[address] CO2 [Moles/Vol] 24.6 mmol/L Normal 21.0-31.0 [facility] Comment on above: Performed By: #### C BC, CK, PT, PTT, BMP, HS TROP, BNP ####[address] Creatinine [Mass/Vol] 1.19 mg/dL Normal 0.70-1.30 [facility] Comment on above: Performed By: #### C BC, CK, PT, PTT, BMP, HS TROP, BNP ####[address] Creatinine Clr Calc Pharmacy 55.29 Normal [facility] Comment on above: Result Comment: PERF ORMED BY: [facility] [address] [place] [address] PATHOLOGIST TROUBLE LOCATER RADHA BARRON M.D. Performed By: #### C BC, CK, PT, PTT, BMP, HS TROP, BNP ####[address] GFR/1.73 sq M.predicted MDRD (S/P/Bld) [Vol rate/Area] mL/min/{1.73_m2} Normal [facility] Comment on above: Performed By: #### C BC, CK, PT, PTT, BMP, HS TROP, BNP ####[address] Glucose [Mass/Vol] 93 mg/dL Normal 70-100 [facility] Comment on above: Result Comment: [facility] Glucose Reference Range is dependent on time and content of last meal. Glucose of more than 200 mg/dL in a nonstressed, ambulatory subject supports the diagnosis of Diabetes Mellitus. ADA recommended reference range Performed By: #### C BC, CK, PT, PTT, BMP, HS TROP, BNP ####[place] [id number] [address] Potassium [Moles/Vol] 4.2 mmol/L Normal 3.5-5.1 [facility] Comment on above: Performed By: #### C BC, CK, PT, PTT, BMP, HS TROP, BNP ####[place] [id number] [address] Sodium [Moles/Vol] 139 mmol/L Normal 136-145 [facility] Comment on above: Performed By: #### C BC, CK, PT, PTT, BMP, HS TROP, BNP ####[address] Urea nitrogen [Mass/Vol] 17 mg/dL Normal 7-25 [facility] Comment on above: Performed By: #### C BC, CK, PT, PTT, BMP, HS TROP, BNP ####[address] Basophils Auto (Bld) [#/Vol] Ordered By: Ramiro Cortez on 03-03-2023 Basophils (Bld) [#/Vol] 0.0 10*3/uL 0.0-0.2 [facility] Basophils/100 WBC Auto (Bld) Ordered By: Ramiro Cortez on 03-03-2023 Basophils/100 WBC (Bld) 0.4 % . [facility] Calcium [Mass/volume] in Ser um or PlasmaOrdered By: Ramiro Cortez on 03-03-2023 Calcium [Mass/Vol] 8.6 mg/dL 8.6-10.3 [facility] Carbon dioxide, total [Moles /volume] in Serum or PlasmaOrdered By: Ramiro Cortez on 03-03-2023 CO2 [Moles/Vol] 24.6 mmol/L 21.0-31.0 [facility] Chloride [Moles/volume] in S pooja or PlasmaOrdered By: Ramiro Cortez on 03-03-2023 Chloride [Moles/Vol] 108 mmol/L 98-107 [facility] Complete Blood Count Auto Di ffon 03-03-2023 Basophils (Bld) [#/Vol] 0.0 10*3/uL Normal 0.0-0.2 [facility] Comment on above: Result Comment: PERF ORMED BY: [place] [address] PATHOLOGIST TROUBLE LOCATER RADHA BARRON M.D. Performed By: #### C BC, CK, PT, PTT, BMP, HS TROP, BNP #### [address] Basophils/100 WBC (Bld) 0.4 % Normal . [facility] Comment on above: Performed By: #### C BC, CK, PT, PTT, BMP, HS TROP, BNP #### [address] Eosinophils (Bld) [#/Vol] 0.2 10*3/uL Normal 0.0-0.45 [facility] Comment on above: Performed By: #### C BC, CK, PT, PTT, BMP, HS TROP, BNP #### [address] Eosinophils/100 WBC (Bld) 2.4 % Normal . [facility] Comment on above: Performed By: #### C BC, CK, PT, PTT, BMP, HS TROP, BNP #### [address] Erythrocyte distribution width (RBC) [Ratio] 13.0 % Normal 12.0-14.8 [facility] Comment on above: Performed By: #### C BC, CK, PT, PTT, BMP, HS TROP, BNP #### [address] Hematocrit (Bld) [Volume fraction] 38.3 % Low 38.8-50.0 [facility] Comment on above: Performed By: #### C BC, CK, PT, PTT, BMP, HS TROP, BNP #### [address] Hemoglobin (Bld) [Mass/Vol] 12.9 g/dL Low 13.0-17.0 [facility] Comment on above: Performed By: #### C BC, CK, PT, PTT, BMP, HS TROP, BNP #### [address] Lymphocytes (Bld) [#/Vol] 2.6 10*3/uL Normal 1.00-4.8 [facility] Comment on above: Performed By: #### C BC, CK, PT, PTT, BMP, HS TROP, BNP #### [address] Lymphocytes/100 WBC (Bld) 28.3 % Normal . [facility] Comment on above: Performed By: #### C BC, CK, PT, PTT, BMP, HS TROP, BNP #### [address] MCH (RBC) [Entitic mass] 30.8 pg Normal 27.5-35.2 [facility] Comment on above: Performed By: #### C BC, CK, PT, PTT, BMP, HS TROP, BNP #### [address] MCV (RBC) [Entitic vol] 91.9 fL Normal 83.5-101 [facility] Comment on above: Performed By: #### C BC, CK, PT, PTT, BMP, HS TROP, BNP #### [address] Mean Corpuscular HGB Conc 33.6 g/dL Normal 32.5-35.6 [facility] Comment on above: Performed By: #### C BC, CK, PT, PTT, BMP, HS TROP, BNP #### [address] Monocytes (Bld) [#/Vol] 0.6 10*3/uL Normal 0.0-0.8 [facility] Comment on above: Performed By: #### C BC, CK, PT, PTT, BMP, HS TROP, BNP #### [facility] [address] [place] [address] [place] Monocytes/100 WBC (Bld) 24.67 % High 0.00-20.00 [facility] Comment on above: Result Comment: For adults in ED, MDW > 20.0 may be associated with a higher risk of sepsis during the first 12 hrs of hospital admission Performed By: #### C BC, CK, PT, PTT, BMP, HS TROP, BNP #### [address] Monocytes/100 WBC (Bld) 6.5 % Normal . [facility] Comment on above: Performed By: #### C BC, CK, PT, PTT, BMP, HS TROP, BNP #### [address] Neutrophils (Bld) [#/Vol] 5.7 10*3/uL Normal 1.8-7.7 [facility] Comment on above: Performed By: #### C BC, CK, PT, PTT, BMP, HS TROP, BNP #### [address] Neutrophils/100 WBC (Bld) 62.4 % Normal . [facility] Comment on above: Performed By: #### C BC, CK, PT, PTT, BMP, HS TROP, BNP #### [place] [address] [place] NRBC% 0.1 /100{WBC} Normal 0-0.5 [facility] Comment on above: Performed By: #### C BC, CK, PT, PTT, BMP, HS TROP, BNP #### [address] Platelet mean volume (Bld) [Entitic vol] 8.2 fL Normal 6.6-10.1 [facility] Comment on above: Performed By: #### C BC, CK, PT, PTT, BMP, HS TROP, BNP #### [facility] [address] Platelets (Bld) [#/Vol] 234 10*3/uL Normal 150-450 [facility] Comment on above: Performed By: #### C BC, CK, PT, PTT, BMP, HS TROP, BNP #### [facility] [address] RBC (Bld) [#/Vol] 4.17 10*6/uL Normal 3.90-5.60 [facility] Comment on above: Performed By: #### C BC, CK, PT, PTT, BMP, HS TROP, BNP #### [facility] [address] WBC (Bld) [#/Vol] 9.2 10*3/uL Normal 4.1-10.5 [facility] Comment on above: Performed By: #### C BC, CK, PT, PTT, BMP, HS TROP, BNP #### [facility] [address] Creatine Kinaseon 03-03-2023 CK [Catalytic activity/Vol] 125 U/L Normal 30-223 [facility] Comment on above: Performed By: #### C BC, CK, PT, PTT, BMP, HS TROP, BNP ####[facility] [address] Creatine kinase [Enzymatic a ctivity/volume] in Serum or PlasmaOrdered By: Ramiro Cortez on 03-03-2023 CK [Catalytic activity/Vol] 125 U/L 30-223 [facility] Creatinine [Mass/volume] in Serum or PlasmaOrdered By: Ramiro Cortez on 03-03-2023 Creatinine [Mass/Vol] 1.19 mg/dL 0.70-1.30 [facility] ECG 12 lead ECGon 03-03-2023 ECG [address] [facility] [address] [place] [address] Electrocardiograph Report Signed Patient: Jeb Riddle MR#: [id number] : 1950 Acct:[id number] Age/Sex: 72 / M ADM Date: 03/03/23 Loc: ER Room: Type: [facility] ER Attending Dr: Ordering Provider: [...] ECGs available Confirmed by RAMIRO CORTEZ DO ([id number]) on 03/03/2023 8:14:27 PM Referred By: Electronically Signed By:RAMIRO CORTEZ DO Transcribed By: MUS Signed By Ramiro Cortez DO 03/03 Normal [facility] Eosinophils Auto (Bld) [#/Vo l]Ordered By: Ramiro Cortez on 03-03-2023 Eosinophils (Bld) [#/Vol] 0.2 10*3/uL 0.0-0.45 [facility] Eosinophils/100 WBC Auto (Bl d)Ordered By: Ramiro Cortez on 03-03-2023 Eosinophils/100 WBC (Bld) 2.4 % . [facility] Erythrocyte distribution wid th Auto (RBC) [Ratio]Ordered By: Ramiro Cortez on 03-03-2023 Erythrocyte distribution width (RBC) [Ratio] 13.0 % 12.0-14.8 [facility] Glucose [Mass/volume] in Ser um or PlasmaOrdered By: Ramiro Cortez on 03-03-2023 Glucose [Mass/Vol] 93 mg/dL 70-100 [facility] Comment on above: ADA recommended refe rence rangeRandom Glucose Reference Range is dependent on time and content of last meal. Glucose of more than 200 mg/dL in a nonstressed, ambulatory subject supports the diagnosis of Diabetes Mellitus. Hematocrit Auto (Bld) [Volum e fraction]Ordered By: Ramiro Cortez on 03-03-2023 Hematocrit (Bld) [Volume fraction] 38.3 % 38.8-50.0 [facility] Hemoglobin [Mass/volume] in BloodOrdered By: Ramiro Cortez on 03-03-2023 Hemoglobin (Bld) [Mass/Vol] 12.9 g/dL 13.0-17.0 [facility] Laboratory - CoagulationOrde red By: Ramiro Cortez on 03-03-2023 PT Coag (PPP) [Time] 12.3 s 9.0-12.9 [facility] Leukocytes [#/volume] correc ava for nucleated erythrocytes in Blood by Automated counOrdered By: Ramiro Cortez on 03-03-2023 WBC corrected for nucl RBC Auto (Bld) [#/Vol] 9.2 10*3/uL 4.1-10.5 [facility] Lymphocytes Auto (Bld) [#/Vo l]Ordered By: Ramiro Cortez on 03-03-2023 Lymphocytes (Bld) [#/Vol] 2.6 10*3/uL 1.00-4.8 [facility] Lymphocytes/100 WBC Auto (Bl d)Ordered By: Ramiro Cortez on 03-03-2023 Lymphocytes/100 WBC (Bld) 28.3 % . [facility] MCH Auto (RBC) [Entitic mass ]Ordered By: Ramiro Cortez on 03-03-2023 MCH (RBC) [Entitic mass] 30.8 pg 27.5-35.2 [facility] MCHC Auto (RBC) [Mass/Vol]Or dered By: Ramiro Cortez on 03-03-2023 MCHC (RBC) [Mass/Vol] 33.6 g/dL 32.5-35.6 [facility] MCV Auto (RBC) [Entitic vol] Ordered By: Ramiro Cortez on 03-03-2023 MCV (RBC) [Entitic vol] 91.9 fL 83.5-101 [facility] Monocyte distribution width [Entitic volume] in Blood by AutomatedOrdered By: Ramiro Cortez on 03-03-2023 Monocyte distribution width Auto (Bld) [Entitic vol] 24.67 % 0.00-20.00 [facility] Comment on above: For adults in ED, MD W > 20.0 may be associated with a higher risk of sepsis during the first 12 hrs of hospital admission Monocytes Auto (Bld) [#/Vol] Ordered By: Ramiro Cortez on 03-03-2023 Monocytes (Bld) [#/Vol] 0.6 10*3/uL 0.0-0.8 [facility] Monocytes/100 WBC Auto (Bld) Ordered By: Ramiro Cortez on 03-03-2023 Monocytes/100 WBC (Bld) 6.5 % . [facility] Natriuretic peptide B [Mass/ Vol]Ordered By: Ramiro Cortez on 03-03-2023 Natriuretic peptide B (Bld) [Mass/Vol] 52.0 pg/mL 5-100 [facility] Neutrophils Auto (Bld) [#/Vo l]Ordered By: Ramiro Cortez on 03-03-2023 Neutrophils (Bld) [#/Vol] 5.7 10*3/uL 1.8-7.7 [facility] Neutrophils/100 WBC Auto (Bl d)Ordered By: Ramiro Cortez on 03-03-2023 Neutrophils/100 WBC (Bld) 62.4 % . [facility] No Panel InformationOrdered By: Ramiro Cortez on 03-03-2023 Estimated GFR (CKD-EPI) > 60.0 mL/Min [facility] Creatinine Clearance (Chem 55.29 [facility] Nucleated erythrocytes [Pres ence] in Blood by Automated countOrdered By: Ramiro Cortez on 03-03-2023 Nucleated RBC Auto Ql (Bld) 0.1 /100{WBC} 0-0.5 [facility] Partial Thromboplastin Timeo n 03-03-2023 aPTT Coag (Bld) [Time] 29.7 s Normal 25.1-36.5 Th e [facility] Comment on above: Result Comment: PERF ORMED BY: [place] [address] PATHOLOGIST TROUBLE LOCATER RADHA BARRON M.D. Performed By: #### C BC, CK, PT, PTT, BMP, HS TROP, BNP #### [address] Platelet mean volume Auto (B ld) [Entitic vol]Ordered By: Ramiro Cortez on 03-03-2023 Platelet mean volume (Bld) [Entitic vol] 8.2 fL 6.6-10.1 [facility] Platelet poor plasma interna tional normalized ratio (INR) by coagulation assay (relatOrdered By: Ramiro Cortez on 03-03-2023 INR Coag (PPP) [Relative time] 1.1 {INR} [facility] Comment on above: INR Therapeutic Rang [...] 03-03-2023 Platelets (Bld) [#/Vol] 234 10*3/uL 150-450 [facility] Potassium [Moles/volume] in Serum or PlasmaOrdered By: Ramiro Cortez on 03-03-2023 Potassium [Moles/Vol] 4.2 mmol/L 3.5-5.1 [facility] Prothrombin Time INRon 03-03 INR Coag (PPP) [Relative time] 1.1 {INR} Normal [facility] Comment on above: Result [...] PT, PTT, BMP, HS TROP, BNP #### [facility] [address] PT Coag (PPP) [Time] 12.3 s Normal 9.0-12.9 [facility] Comment on above: Performed By: #### C BC, CK, PT, PTT, BMP, HS TROP, BNP #### [facility] [address] [place] [address] [place] RBC Auto (Bld) [#/Vol]Ordere d By: Ramiro Cortez on 03-03-2023 RBC (Bld) [#/Vol] 4.17 10*6/uL 3.90-5.60 [facility] Serum or plasma anion gap de terminationOrdered By: Ramiro Cortez on 03-03-2023 Anion gap [Moles/Vol] 10.6 mmol/L 6.0-15.0 [facility] Sodium [Moles/volume] in Ser um or PlasmaOrdered By: Ramiro Cortez on 03-03-2023 Sodium [Moles/Vol] 139 mmol/L 136-145 [facility] Troponin I High Sensitivityo n 03-03-2023 Troponin I High Sensitivity 7.6 pg/mL Normal 0.0-20.0 [facility] Comment on above: Result Comment: PERF ORMED BY: [facility] [address] [place] [address] PATHOLOGIST TROUBLE LOCATER RADHA BARRON M.D. Performed By: #### C BC, CK, PT, PTT, BMP, HS TROP, BNP ####[facility] [address] Troponin I.cardiac [Mass/vol ume] in Serum or Plasma by Detection limit <= 0.01 ng/Ordered By: Ramiro Cortez on 03-03-2023 Troponin I.cardiac DL <= 0.01 ng/mL [Mass/Vol] 7.6 pg/mL 0.0-20.0 [facility] Urea nitrogen [Mass/volume] in Serum or PlasmaOrdered By: Ramiro Cortez on 03-03-2023 Urea nitrogen [Mass/Vol] 17 mg/dL 7-25 [facility] WBC Auto (Bld) [#/Vol]Ordere d By: Ramiro oCrtez on 03-03-2023 WBC (Bld) [#/Vol] 9.2 10*3/uL 4.1-10.5 [facility] XR chest 2V*on 03-03-2023 XR chest 2V* [facility] [address] [place] [address] XRay Report Signed Patient: Jeb Riddle MR#: [id number] : 1950 Acct:[id number] Age/Sex: 72 / M ADM Date: 03/03/23 Loc: ER Room: Type: [facility] ER Attending Dr: Copies to: Ramiro [...] Ivonne Zavala M.D.03/03/2023 12:46 PM Dictation Location: [place] [address] Transcribed By: [facility] 03/03/23 1246 Dictated By: Ivonne Zavala MD 03/03/23 1245 Signed By: 03/03/23 1246 Normal [facility] CBC AUTO DIFFon 01-11-2023 BASO # 0.0 103/ul Normal 0.0-0.1 [facility] Comment on above: Performed By: #### C BC #### [facility] [address] [place] [address] Dr. Andrea Garcia Basophils/100 WBC (Bld) 0.0 % Critically low 0.2-2.0 [facility] Comment on above: Performed By: #### C BC #### [facility] [address] [place] [address] Dr. Andrea Garcia EO # 0.0 103/ul Normal 0.0-0.7 [facility] Comment on above: Performed By: #### C BC #### [facility] [address] [place] [address] Dr. Andrea Garcia Eosinophils/100 WBC (Bld) 0.0 % Critically low 0.9-7.0 [facility] Comment on above: Performed By: #### C BC #### [facility] [address] [place] [address] Dr. Andrea Garcia Erythrocyte distribution width (RBC) [Ratio] 12.8 % Normal 11.0-15.0 [facility] Comment on above: Performed By: #### C BC #### [facility] [address] [place] [address] Dr. Andrea Garcia Hematocrit (Bld) [Volume fraction] 36.2 % Critically low 42.0-54.0 [facility] Comment on above: Performed By: #### C BC #### [facility] [address] [place] [address] Dr. Andrea Garcia Hemoglobin (Bld) [Mass/Vol] 12.8 g/dL Critically low 14.0-18.0 [facility] Comment on above: Performed By: #### C BC #### [facility] [address] [place] [address] Dr. Andrea Garcia IG # 0.03 10e3/ul Normal 0.00-0.03 [facility] Comment on above: Performed By: #### C BC #### [facility] [address] [place] [address] Dr. Andrea Garcia IG % 0.4 % Normal 0.0-0.5 [facility] Comment on above: Performed By: #### C BC #### [facility] [address] [place] [address] Dr. Andrea Garcia LYMPH # 1.1 103/ul Critically low 1.2-3.8 [facility] Comment on above: Performed By: #### C BC #### [facility] [address] [place] [address] Dr. Andrea Garcia Lymphocytes/100 WBC (Bld) 15.3 % Critically low 20.5-60.0 [facility] Comment on above: Performed By: #### C BC #### [facility] [address] [place] [address] Dr. Andrea Garcia MANUAL DIFF REQ NO Normal [facility] Comment on above: Performed By: #### C BC #### [facility] [address] [place], [place] [id number] Dr. Andrea Garcia MCH (RBC) [Entitic mass] 31.3 pg Normal 25.9-34.0 [facility] Comment on above: Performed By: #### C BC #### [facility] [address] [place] [address] Dr. Andrea Garcia MCHC (RBC) [Mass/Vol] 35.4 g/dL Critically high 29.9-35.2 [facility] Comment on above: Performed By: #### C BC #### [facility] [address] [place] [address] Dr. Andrea Garcia MCV (RBC) [Entitic vol] 88.5 fL Normal 80.0-94.0 [facility] Comment on above: Performed By: #### C BC #### [facility] [address] [place] [address] Dr. Andrea Garcia MONO # 0.1 103/ul Critically low 0.3-0.8 [facility] Comment on above: Performed By: #### C BC #### [facility] [address] [place] [address] Dr. Andrea Garcia Monocytes/100 WBC (Bld) 0.7 % Critically low 1.7-12.0 [facility] Comment on above: Performed By: #### C BC #### [facility] [address] [place] [address] Dr. Andrea Garcia NEUT # 6.0 103/ul Normal 1.4-6.5 [facility] Comment on above: Performed By: #### C BC #### [facility] [address] [place] [address] Dr. Andrea Garcia Neutrophils/100 WBC (Bld) 83.6 % Critically high 43.0-75.0 [facility] Comment on above: Performed By: #### C BC #### [facility] [address] [place] [address] Dr. Andrea Garcia Platelet mean volume (Bld) [Entitic vol] 10.1 fL Normal 9.5-13.5 [facility] Comment on above: Performed By: #### C BC #### [facility] [address] [place] [address] Dr. Andrea Garcia PLT 216 103/ul Normal 150-450 [facility] Comment on above: Performed By: #### C BC #### [facility] [address] [place] [address] Dr. Andrea Garcia RBC 4.09 106/ul Critically low 4.70-6.10 [facility] Comment on above: Performed By: #### C BC #### [facility] [address] [place] [address] Dr. Andrea Garcia WBC 7.2 103/ul Normal 4.0-11.0 [facility] Comment on above: Performed By: #### C BC #### [facility] [address] [place] [address] Dr. Andrea Garcia PROF 14(COMP METB)on 023 Albumin [Mass/Vol] 2.8 g/dL Critically low 3.4-5.0 [facility] Comment on above: Performed By: #### C MP #### [facility] [address] [place] [address] Dr. Andrea Garcia Albumin/Globulin [Mass ratio] 0.8 {ratio} Normal [facility] Comment on above: Performed By: #### C MP #### [facility] [address] [place] [address] Dr. Andrea Garcia ALP [Catalytic activity/Vol] 64 U/L Normal 46-116 [facility] Comment on above: Performed By: #### C MP #### [facility] [address] [place] [address] Dr. Andrea Garcia ALT [Catalytic activity/Vol] 27 U/L Normal 16-63 [facility] Comment on above: Performed By: #### C MP #### [facility] [address] [place] [address] Dr. Andrea Garcia Anion gap [Moles/Vol] 12.9 mmol/L Normal [facility] Comment on above: Performed By: #### C MP #### [facility] [address] [place] [address] Dr. Andrea Garcia AST [Catalytic activity/Vol] 16 U/L Normal 15-37 [facility] Comment on above: Performed By: #### C MP #### [facility] [address] [place] [address] [address] Andrea Garcia Bilirubin [Mass/Vol] 0.4 mg/dL Normal 0.2-1.0 [facility] Comment on above: Performed By: #### C MP #### [facility] [address] [place] [address] [address] Andrea Garcia Calcium [Mass/Vol] 8.2 mg/dL Critically low 8.5-10.1 Th e [facility] Comment on above: Performed By: #### C MP #### [facility] [address] [place] [address] Dr. Andrea Garcia Chloride [Moles/Vol] 107 mmol/L Normal 98-107 [facility] Comment on above: Performed By: #### C MP #### [facility] [address] [place] [address] Dr. Andrea Garcia CO2 [Moles/Vol] 24.2 mmol/L Normal 21.0-32.0 [facility] Comment on above: Performed By: #### C MP #### [facility] [address] [place] [address] Dr. Andrea Garcia Creatinine [Mass/Vol] 1.07 mg/dL Normal 0.70-1.30 [facility] Comment on above: Performed By: #### C MP #### [facility] [address] [place] [address] Dr. Andrea Garcia EGFR-AF SPANISH >60 Normal >=60 [facility] Comment on above: Performed By: #### C MP #### [facility] [address] [place] [address] Dr. Andrea Garcia EGFR-NON AF SPANISH >60 Normal >=60 [facility] Comment on above: Performed By: #### C MP #### [facility] [address] [place] [address] Dr. Andrea Garcia Globulin (S) [Mass/Vol] 3.5 g/dL Normal [facility] Comment on above: Performed By: #### C MP #### [facility] [address] [place] [address] [address] Andrea Garcia Glucose [Mass/Vol] 164 mg/dL Critically high 74-106 T [facility] Comment on above: Performed By: #### C MP #### [facility] [address] [place] [address] [address] Andrea Garcia Potassium [Moles/Vol] 4.1 mmol/L Normal 3.5-5.1 [facility] Comment on above: Performed By: #### C MP #### [facility] [address] [place] [address] [address] Andrea Garcia Protein [Mass/Vol] 6.3 g/dL Critically low 6.4-8.2 [facility] Comment on above: Performed By: #### C MP #### [facility] [address] [place] [address] [address] Andrea Garcia Sodium [Moles/Vol] 140 mmol/L Normal 136-145 [facility] Comment on above: Performed By: #### C MP #### [facility] [address] [place] [address] [address] Andrea Garcia Urea nitrogen [Mass/Vol] 16.0 mg/dL Normal 7.0-18.0 [facility] Comment on above: Performed By: #### C MP #### [facility] [address] [place] [address] [address] Andrea Garcia Urea nitrogen/Creatinine [Mass ratio] 15.0 mg/mg Normal [facility] Comment on above: Performed By: #### C MP #### [facility] [address] [place] [address] [address] Andrea Garcia XR KUB 1 VIEWon [...] ROBERT DAVENPORT Date: 2023-01-11 06:56 Normal [facility] AMYLASEon 01-10-2023 Amylase [Catalytic activity/Vol] 56 U/L Normal 25-115 [facility] Comment on above: Performed By: #### C MADM, CMP, DAMIEN, LIPA ####[facility] [address] [place] [address]Dr. Andrea Garcia CARDIAC JEB 3-6on 3 CK [Catalytic activity/Vol] 92 U/L Normal 39-308 [facility] Comment on above: Performed By: #### C MREP #### [facility] [address] [place] [address] [address] Andrea RUBALCAVA.MB [Mass/Vol] 1.66 ng/mL Normal <=3.60 [facility] Comment on above: Performed By: #### C MREP #### [facility] [address] [place] [address] Dr. Andrea Garcia HSTROP 12.8 pg/mL Normal 4.0-76.1 [facility] Comment on above: Result Comment: CUT- OFF POINTS HAVE BEEN ESTABLISHED BASED ON THE FOURTH UNIVERSAL DEFINITIONS OF MYOCARDIAL INFARCTION. THE UPPER REFERENCE LIMIT (URL) OF TROPONIN, DEFINED THE 99TH PERCENTILE OF cTnI DISTRIBUTION IN A REFERENCE POPULATION, HAS BEEN CONFIRMED THE DECISION THRESHOLD FOR PA DIAGNOSIS. Performed By: #### C MREP #### [facility] [address] [place] [address] Dr. Andrea Garcia CK [Catalytic activity/Vol] 72 U/L Normal 39-308 [facility] Comment on above: Performed By: #### C MREP #### [facility] [address] [place] [address] [address] Andrea RUBALCAVA.MB [Mass/Vol] 1.89 ng/mL Normal <=3.60 [facility] Comment on above: Performed By: #### C MREP #### [facility] [address] [place] [address] Dr. Andrea Garcia HSTROP 13.5 pg/mL Normal 4.0-76.1 [facility] Comment on above: Result Comment: CUT- OFF POINTS HAVE BEEN ESTABLISHED BASED ON THE FOURTH UNIVERSAL DEFINITIONS OF MYOCARDIAL INFARCTION. THE UPPER REFERENCE LIMIT (URL) OF TROPONIN, DEFINED THE 99TH PERCENTILE OF cTnI DISTRIBUTION IN A REFERENCE POPULATION, HAS BEEN CONFIRMED THE DECISION THRESHOLD FOR PA DIAGNOSIS. Performed By: #### C MREP #### [facility] [address] [place], [place] [address] Dr. Andrea Garcia CARDIAC JEB ADMITon 023 CK [Catalytic activity/Vol] 85 U/L Normal 39-308 [facility] Comment on above: Performed By: #### C MADM, CMP, DAMIEN, LIPA ####[facility] [address] [place] [address]DrWilder Garcia CK.MB [Mass/Vol] 1.80 ng/mL Normal <=3.60 [facility] Comment on above: Performed By: #### C MADM, CMP, DAMIEN, LIPA ####[facility] [address] [place] [address]DrWilder Garcia HSTROP 15.7 pg/mL Normal 4.0-76.1 [facility] Comment on above: Result Comment: CUT- OFF POINTS HAVE BEEN ESTABLISHED BASED ON THE FOURTH UNIVERSAL DEFINITIONS OF MYOCARDIAL INFARCTION. THE UPPER REFERENCE LIMIT (URL) OF TROPONIN, DEFINED THE 99TH PERCENTILE OF cTnI DISTRIBUTION IN A REFERENCE POPULATION, HAS BEEN CONFIRMED THE DECISION THRESHOLD FOR PA DIAGNOSIS. Performed By: #### C MADM, CMP, DAMIEN, LIPA ####[facility] [address] [place] [address]DrWilder Garcia MIQUEL 61 ng/mL Normal 16-96 [facility] Comment on above: Performed By: #### C MADM, CMP, DAMIEN, LIPA ####[facility] [address] [place] [address]DrWilder Garcia CBC AUTO DIFFon 01-10-2023 BASO # 0.0 103/ul Normal 0.0-0.1 [facility] Comment on above: Performed By: #### C BC ####[facility] [address] [place] [address]DrWilder Garcia Basophils/100 WBC (Bld) 0.5 % Normal 0.2-2.0 [facility] Comment on above: Performed By: #### C BC ####[facility] [address] [place], [place] [id number]. Andrea Garcia EO # 0.4 103/ul Normal 0.0-0.7 [facility] Comment on above: Performed By: #### C BC ####[facility] [address] [place], [place] [address]Dr. Andrea Garcia Eosinophils/100 WBC (Bld) 5.9 % Normal 0.9-7.0 [facility] Comment on above: Performed By: #### C BC ####[facility] [address] [place], [place] [address]Dr. Andrea Garcia Erythrocyte distribution width (RBC) [Ratio] 13.0 % Normal 11.0-15.0 [facility] Comment on above: Performed By: #### C BC ####[facility] [address] [place], [place] [address]Dr. Andrea Garcia Hematocrit (Bld) [Volume fraction] 40.0 % Critically low 42.0-54.0 [facility] Comment on above: Performed By: #### C BC ####[facility] [address] [place], [place] [address]Dr. Andrea Garcia Hemoglobin (Bld) [Mass/Vol] 13.4 g/dL Critically low 14.0-18.0 [facility] Comment on above: Performed By: #### C BC ####[facility] [address] [place], [place] [address]Dr. Andrea Garcia IG # 0.01 10e3/ul Normal 0.00-0.03 [facility] Comment on above: Performed By: #### C BC ####[facility] [address] [place], [place] [address]Dr. Andrea Garcia IG % 0.2 % Normal 0.0-0.5 [facility] Comment on above: Performed By: #### C BC ####[facility] [address] [place], [place] [address]Dr. Andrea Garcia LYMPH # 2.2 103/ul Normal 1.2-3.8 [facility] Comment on above: Performed By: #### C BC ####[facility] [address] [place] [address]Dr. Andrea Garcia Lymphocytes/100 WBC (Bld) 33.2 % Normal 20.5-60.0 [facility] Comment on above: Performed By: #### C BC ####[facility] [address] [place] [address]Dr. Andrea Garcia MANUAL DIFF REQ NO Normal [facility] Comment on above: Performed By: #### C BC ####[facility] [address] [place] [address]Dr. Andrea Garcia MCH (RBC) [Entitic mass] 30.5 pg Normal 25.9-34.0 [facility] Comment on above: Performed By: #### C BC ####[facility] [address] [place], [place] [address]Dr. Andrea Garcia MCHC (RBC) [Mass/Vol] 33.5 g/dL Normal 29.9-35.2 [facility] Comment on above: Performed By: #### C BC ####[facility] [address] [place], [place] [address]Dr. Andrea Garcia MCV (RBC) [Entitic vol] 90.9 fL Normal 80.0-94.0 [facility] Comment on above: Performed By: #### C BC ####[facility] [address] [place], [place] [address]Dr. Andrea Garcia MONO # 0.4 103/ul Normal 0.3-0.8 [facility] Comment on above: Performed By: #### C BC ####[facility] [address] [place], [place] [address]Dr. Andrea Garcia Monocytes/100 WBC (Bld) 6.0 % Normal 1.7-12.0 [facility] Comment on above: Performed By: #### C BC ####[facility] [address] [place], [place] [address]Dr. Andrea Garcia NEUT # 3.5 103/ul Normal 1.4-6.5 [facility] Comment on above: Performed By: #### C BC ####[facility] [address] [place] [address]Dr. Andrea Garcia Neutrophils/100 WBC (Bld) 54.2 % Normal 43.0-75.0 [facility] Comment on above: Performed By: #### C BC ####[facility] [address] [place] [address]Dr. Andrea Garcia Platelet mean volume (Bld) [Entitic vol] 9.7 fL Normal 9.5-13.5 [facility] Comment on above: Performed By: #### C BC ####[facility] [address] [place] [address]Dr. Andrea Garcia PLT 225 103/ul Normal 150-450 [facility] Comment on above: Performed By: #### C BC ####[facility] [address] [place] [address]Dr. Andrea Garcia RBC 4.40 106/ul Critically low 4.70-6.10 [facility] Comment on above: Performed By: #### C BC ####[facility] [address] [place] [address]Dr. Andrea Garcia WBC 6.5 103/ul Normal 4.0-11.0 [facility] Comment on above: Performed By: #### C BC ####[facility] [address] [place] [address] Andrea [address] CT ABD/PELV W CONon 01-11-20 [...] by: ADITYA OATES Date: 2023-01-10 07:41 Normal [facility] CULTURE BLOODon 01-10-2023 Microscopic examination of blood, culture Culture Observations: NO GROWTH AT 36-48 HOURS. FINAL TO FOLLOW. Normal [facility] Comment on above: Performed By: #### B LDCX2 ####[facility] [address] [place] [address]Dr. Andrea Garcia Microscopic examination of blood, culture Culture Observations: NO GROWTH AT 36-48 HOURS. FINAL TO FOLLOW. Normal [facility] Comment on above: Performed By: #### B LDCX1 ####[facility] [address] [place] [address]Dr. Andrea Garcia ER URINE PROFILEon 3 Bilirubin Ql (U) Negative Normal NEGATIVE [facility] Comment on above: Performed By: #### U MICRO, ERUR #### [facility] [address] [address] [address] Andrea Garcia Clarity (U) CLEAR Normal CLEAR [facility] Comment on above: Performed By: #### U MICRO, ERUR #### [facility] [address] [address] [address] Andrea Garcia Color (U) LT. YELLOW Normal YELLOW [facility] Comment on above: Performed By: #### U MICRO, ERUR #### [facility] [address] [address] [address] Andrea GALLEGOS A micrscopic examina tion will be performed if indicated. Normal [facility] Comment on above: Performed By: #### U MICRO, ERUR #### [facility] [address] [address] [address] Andrea Garcia Glucose Ql (U) Negative Normal NEGATIVE [facility] Comment on above: Performed By: #### U MICRO, ERUR #### [facility] [address] [address] [address] Andrea Garcia Hemoglobin Ql (U) TRACE-INTACT Abnormal NEGATIVE [facility] Comment on above: Performed By: #### U MICRO, ERUR #### [facility] [address] [place] [address] Dr. Andrea Garcia Ketones Ql (U) Negative Normal NEGATIVE [facility] Comment on above: Performed By: #### U MICRO, ERUR #### [facility] [address] [place] [address] Dr. Andrea Garcia LEUKOCYTES Negative Normal NEGATIVE [facility] Comment on above: Performed By: #### U MICRO, ERUR #### [facility] [address] [place] [address] Dr. Andrea Garcia Nitrite Ql (U) Negative Normal NEGATIVE [facility] Comment on above: Performed By: #### U MICRO, ERUR #### [facility] [address] [place] [address] Dr. Andrea Garcia pH (U) 5.5 [pH] Normal 5-9 [facility] Comment on above: Performed By: #### U MICRO, ERUR #### [facility] [address] [place] [address] Dr. Andrea Garcia SPEC GRAVITY 1.015 Normal 1.005-<=1. 025 [facility] Comment on above: Performed By: #### U MICRO, ERUR #### [facility] [address] [place] [address] Dr. Andrea Garcia UA PROTEIN Negative Normal NEGATIVE/ TRACE [facility] Comment on above: Performed By: #### U MICRO, ERUR #### [facility] [address] [place] [address] Dr. Andrea Garcia UR MICRO IND INDICATED Normal [facility] Comment on above: Performed By: #### U MICRO, ERUR #### [facility] [address] [address] [address] Andrea Garcia Urobilinogen Qn (U) 0.2 {Temo'U}/dL Normal 0.2 - 1. 0 [facility] Comment on above: Performed By: #### U MICRO, ERUR #### [facility] [address] [place] [address] Dr. Andrea Garcia LACTATE/LACTIC ACIDon 2022 Lactate [Moles/Vol] 0.8 mmol/L Normal 0.4-2.0 [facility] Comment on above: Performed By: #### L ACT #### [facility] [address] [place] [address] Dr. Andrea Garcia Lactate [Moles/Vol] 0.9 mmol/L Normal 0.4-2.0 [facility] Comment on above: Performed By: #### L ACT #### [facility] [address] [place] [address] Dr. Andrea Garcia LIPASEon 01-10-2023 Lipase [Catalytic activity/Vol] 71.0 U/L Critically low 73.0-393.0 [facility] Comment on above: Performed By: #### C MADM, CMP, DAMIEN, LIPA ####[facility] [address] [place] [address]Dr. Andrea Garcia PROF 14(COMP METB)on 023 Albumin [Mass/Vol] 3.2 g/dL Critically low 3.4-5.0 Th e [facility] Comment on above: Performed By: #### C MADM, CMP, DAMIEN, LIPA ####[facility] [address] [place] [address]Dr. Andrea Garcia Albumin/Globulin [Mass ratio] 0.9 {ratio} Normal [facility] Comment on above: Performed By: #### C MADM, CMP, DAMIEN, LIPA ####[facility] [address] [place] [address]Dr. Andrea Garcia ALP [Catalytic activity/Vol] 68 U/L Normal 46-116 [facility] Comment on above: Performed By: #### C MADM, CMP, DAMIEN, LIPA ####[facility] [address] [place] [address]Dr. Andrea Garcia ALT [Catalytic activity/Vol] 30 U/L Normal 16-63 [facility] Comment on above: Performed By: #### C MADM, CMP, DAMIEN, LIPA ####[facility] [address] [place] [address]Dr. Andrea Garcia Anion gap [Moles/Vol] 14.2 mmol/L Normal Th e [facility] Comment on above: Performed By: #### C MADM, CMP, DAMIEN, LIPA ####[facility] [address] [place] [address]Dr. Andrea Garcia AST [Catalytic activity/Vol] 18 U/L Normal 15-37 [facility] Comment on above: Performed By: #### C MADM, CMP, DAMIEN, LIPA ####[facility] [address] [place] [address]Dr. Andrea Garcia Bilirubin [Mass/Vol] 0.5 mg/dL Normal 0.2-1.0 [facility] Comment on above: Performed By: #### C MADM, CMP, DAMIEN, LIPA ####[facility] [address] [place], [place] [address]Dr. Andrea Garcia Calcium [Mass/Vol] 8.5 mg/dL Normal 8.5-10.1 [facility] Comment on above: Performed By: #### C MADM, CMP, DAMIEN, LIPA ####[facility] [address] [place] [address]Dr. Andrea Garcia Chloride [Moles/Vol] 108 mmol/L Critically high 98-107 [facility] Comment on above: Performed By: #### C MADM, CMP, DAMIEN, LIPA ####[facility] [address] [place] [address]Dr. Yilan Garcia CO2 [Moles/Vol] 22.1 mmol/L Normal 21.0-32.0 [facility] Comment on above: Performed By: #### C MADM, CMP, DAMIEN, LIPA ####[facility] [address] [place] [address]Dr. Andrea Garcia Creatinine [Mass/Vol] 1.06 mg/dL Normal 0.70-1.30 [facility] Comment on above: Performed By: #### C MADM, CMP, DAMIEN, LIPA ####[facility] [address] [place] [address]Dr. Andrea Garcia EGFR-AF SPANISH >60 Normal >=60 [facility] Comment on above: Performed By: #### C MADM, CMP, DAMIEN, LIPA ####[facility] [address] [place] [address]Dr. Andrea Garcia EGFR-NON AF SPANISH >60 Normal >=60 [facility] Comment on above: Performed By: #### C MADAnalilia, CMP, DAMIEN, LIPA ####[facility] [address] [place], [place] [address]Dr. Andrea Garcia Globulin (S) [Mass/Vol] 3.5 g/dL Normal [facility] Comment on above: Performed By: #### C MADAnalilia, CMP, DAMIEN, LIPA ####[facility] [address] [place] [address]Dr. Andrea Garcia Glucose [Mass/Vol] 110 mg/dL Critically high 74-106 T [facility] Comment on above: Performed By: #### C MADM, CMP, DAMIEN, LIPA ####[facility] [address] [place] [address]Dr. Andrea Garcia Potassium [Moles/Vol] 4.3 mmol/L Normal 3.5-5.1 [facility] Comment on above: Performed By: #### C MADM, CMP, DAMIEN, LIPA ####[facility] [address] [place] [address]Dr. Andrea Garcia Protein [Mass/Vol] 6.7 g/dL Normal 6.4-8.2 [facility] Comment on above: Performed By: #### C MADM, CMP, DAMIEN, LIPA ####[facility] [address] [place] [address]Dr. Andrea Garcia Sodium [Moles/Vol] 140 mmol/L Normal 136-145 [facility] Comment on above: Performed By: #### C MADM, CMP, DAMIEN, LIPA ####[facility] [address] [place] [address]Dr. Andrea Garcia Urea nitrogen [Mass/Vol] 20.0 mg/dL Critically high 7.0-18.0 [facility] Comment on above: Performed By: #### C MADM, CMP, DAMIEN, LIPA ####[facility] [address] [place] [address]Dr. Andrea Garcia Urea nitrogen/Creatinine [Mass ratio] 18.9 mg/mg Normal [facility] Comment on above: Performed By: #### C MADM, CMP, DAMIEN, LIPA ####[facility] [address] [place] [address]Dr. Andrea Garcia URINE MICROSCOPIC ONLYon BACTERIA NONE SEEN Normal NONE SEEN [facility] Comment on above: Performed By: #### U MICRO, ERUR #### [facility] [address] [place] [address] Dr. Andrea Garcia Bacteria identified Cx Nom (U) NOT INDICATED Normal [facility] Comment on above: Performed By: #### U MICRO, ERUR #### [facility] [address] [address] [address] Andrea Garcia CAST NONE SEEN Normal NONE SEEN [facility] Comment on above: Performed By: #### U MICRO, ERUR #### [facility] [address] [address] [address] Andrea Garcia Crystals LM Nom (Urine sed) NONE SEEN Normal NONE SEEN [facility] Comment on above: Performed By: #### U MICRO, ERUR #### [facility] [address] [address] [address] Andrea Garcia Epithelial cells LM Ql (Urine sed) NONE SEEN Normal NONE SEEN /RARE [facility] Comment on above: Performed By: #### U MICRO, ERUR #### [facility] [address] [address] [address] Andrea Garcia MUCOUS NONE SEEN Normal NONE SEEN [facility] Comment on above: Performed By: #### U MICRO, ERUR #### [facility] [address] [address] [address] Andrea Garcia RBC 0-2 Normal 0-2 [facility] Comment on above: Performed By: #### U MICRO, ERUR #### [facility] [address] [address] [address] Andrea Garcia WBC 0-2 Abnormal NONE SEEN [facility] Comment on above: Performed By: #### U MICRO, ERUR #### [facility] [address] [address] [address] Andrea Garcia XR CHEST 1 Von 01-10-2023 XR CHEST 1 V Exam: Radiographs: X R CHEST 1 V Reason for exam: Nausea/vomiting Comparison: None IMPRESSION: Negative chest. Electronically authenticated by: ADITYA OATES Date: 2023-01-10 07:42 Normal [facility] MRI Soft Tissue Neck w/o [...] by KENN RAPHAEL on 10/06/2021 1605 Normal [facility] Specialist CT Soft Tissue Neck w/ Contr [...] by Que Greene on 09/29/2021 1013 Normal [facility] Specialist Vital Signs Date Time Vital Sign Value Performing Clinician Faci lity 04-17-2025 [id number] Body height 187.96 cm Rodriguez Godwin MD Work Phone: [facility] 04-17-2025 10:04-0400 Body mass index (BMI) [Ratio] 23.8 kg/m2 Rodriguez Godwin MD Work Phone: [facility] 04-17-2025 10:04-0400 Body weight 84.36 kg Rodriguez Godwin MD Work Phone: [facility] 04-17-2025 10:04-0400 Diastolic blood pressure 76 mm[Hg] Rodriguez Godwin MD Work Phone: [facility] 04-17-2025 10:04-0400 Heart rate 74 /min Rodriguez Godwin MD Work Phone: [facility] 04-17-2025 10:04-0400 Respiratory rate 18 /min Rodriguez Godwin MD Work Phone: [facility] 04-17-2025 10:04-0400 SaO2% (BldA) [Mass fraction] 95 % Rodriguez Godwin MD Work Phone: [facility] 04-17-2025 10:04-0400 Systolic blood pressure 112 mm[Hg] Rodriguez Godwin MD Work Phone: [facility] 01-30-2025 09:02-0400 Body weight 84.08 kg Rodriguez Godwin MD Work Phone: [facility] 01-30-2025 09:02-0400 Diastolic blood pressure 72 mm[Hg] Rodriguez Godwin MD Work Phone: [facility] 01-30-2025 09:02-0400 Heart rate 74 /min Rodriguez Godwin MD Work Phone: [facility] 01-30-2025 09:02-0400 SaO2% (BldA) [Mass fraction] 95 % Rodriguez Godwin MD Work Phone: [facility] 01-30-2025 09:02-0400 Systolic blood pressure 138 mm[Hg] Rodriguez Godwin MD Work Phone: [facility] 09-19-2024 08:42-0500 Body mass index (BMI) [Ratio] 24.11 kg/m2 Maribel Bojorquez DO Work Phone: [facility] 09-19-2024 08:42-0500 Body weight 85.19 kg Maribel Bojorquez DO Work Phone: [facility] 09-19-2024 08:42-0500 Diastolic blood pressure 76 mm[Hg] Treopher Reno DO Work Phone: [facility] 09-19-2024 08:42-0500 Heart rate 78 /min Christopher Reno DO Work Phone: [facility] 09-19-2024 08:42-0500 SaO2% (BldA) [Mass fraction] 96 % Treopher Reno DO Work Phone: [facility] 09-19-2024 08:42-0500 Systolic blood pressure 142 mm[Hg] Christopher Reno DO Work Phone: [facility] 01-09-2024 19:01-0400 Diastolic blood pressure 99 mm[Hg] MD Rodriguez Godwin Work Phone: [facility] 01-09-2024 19:01-0400 Heart rate 84 /min MD Rodriguez Godwin Work Phone: [facility] 01-09-2024 19:01-0400 Respiratory rate 18 /min MD Rodriguez Godwin Work Phone: [facility] 01-09-2024 19:01-0400 SaO2% (BldA) [Mass fraction] 97 % MD Rodriguez Godwin Work Phone: [facility] 01-09-2024 19:01-0400 Systolic blood pressure 190 mm[Hg] MD Rodriguez Godwin Work Phone: [facility] 01-09-2024 14:29-0400 Body height 187.96 cm MD Rodriguez Godwin Work Phone: [facility] 01-09-2024 14:29-0400 Body temperature 98.3 [degF] MD Rodriguez Godwin Work Phone: [facility] 01-09-2024 14:29-0400 Body weight 83 kg MD Rodriguez Godwin Work Phone: [facility] 12-18-2023 13:10-0400 Heart rate 85 /min MD Rodriguez Godwin Work Phone: [facility] 12-18-2023 13:09-0400 Body temperature 97.9 [degF] MD Rodriguez Godwin Work Phone: [facility] 12-18-2023 13:09-0400 Diastolic blood pressure 77 mm[Hg] MD Rodriguez Godwin Work Phone: [facility] 12-18-2023 13:09-0400 Respiratory rate 18 /min MD Rodriguez Godwin Work Phone: [facility] 12-18-2023 13:09-0400 SaO2% (BldA) [Mass fraction] 97 % MD Rodriguez Godwin Work Phone: [facility] 12-18-2023 13:09-0400 Systolic blood pressure 161 mm[Hg] MD Rodriguez Godwin Work Phone: [facility] 12-18-2023 13:06-0400 Body height 186.69 cm MD Rodriguez Godwin Work Phone: [facility] 12-18-2023 13:06-0400 Body weight 81 kg MD Rodriguez Godwin Work Phone: [facility] 03-03-2023 13:30-0400 Diastolic blood pressure 100 mm[Hg] MD Rodriguez Godwin Work Phone: [facility] 03-03-2023 13:30-0400 Heart rate 59 /min MD Rodriguez Godwin Work Phone: [facility] 03-03-2023 13:30-0400 Respiratory rate 18 /min MD Rodriguez Godwin Work Phone: [facility] 03-03-2023 13:30-0400 SaO2% (BldA) [Mass fraction] 99 % MD Rodriguez Godwin Work Phone: [facility] 03-03-2023 13:30-0400 Systolic blood pressure 160 mm[Hg] MD Rodriguez Godwin Work Phone: [facility] 03-03-2023 11:36-0400 Body height 175.26 cm MD Rodriguez Godwin Work Phone: [facility] 03-03-2023 11:36-0400 Body temperature 98 [degF] MD Rodriguez Godwin Work Phone: [facility] 03-03-2023 11:36-0400 Body weight 84.3 kg MD Rodriguez Godwin Work Phone: [facility] Encounters Encounter Date Encounter Type Care Provider Facility Start: 04-17-2025 End: 04-17-2025 ambulatory Rodriguez Godwin MD Work Phone: [facility] Work Phone: Start: 04-17-2025 End: 04-17-2025 Patient encounter [facility] Work [facility]: Start: 01-30-2025 Non-patient / Non-visit Santa Ocampo [facility] Work Phone: Start: 01-30-2025 End: 01-30-2025 Patient encounter procedure Trevannessa Reno [facility] Work Phone: Start: 01-29-2025 Non-patient / Non-visit Santaromi Ocampo [facility] Work Phone: Start: 01-22-2025 End: 01-22-2025 Lab Drop off Frnakie HOLLINS [facility] Start: 01-22-2025 End: 01-22-2025 ambulatory Frankie HOLLINS [facility] Start: 01-22-2025 End: 01-22-2025 Patient encounter procedure Frankie HOLLINS [facility] Start: 01-15-2025 ambulatory Jaun BRADSHAW Facility:[facility] Start: 01-15-2025 End: 01-15-2025 ambulatory [facility] Start: 12-17-2024 End: 12-17-2024 ambulatory Jaun BRADSHAW Facility:CD:[id number] Start: 12-11-2024 End: 12-11-2024 ambulatory Jaun BRADSHAW Facility:[facility] Start: 11-27-2024 ambulatory Jaun BRADSHAW Facility:[facility] Start: 11-14-2024 End: 11-14-2024 ambulatory [facility] Start: 11-05-2024 End: 11-05-2024 ambulatory CHRISTOPHER RENO Not Available Start: 10-02-2024 End: 10-02-2024 ambulatory CHRISTOPHER RENO Not Available Start: 09-24-2024 End: 09-24-2024 ambulatory [facility] Start: 09-19-2024 End: 09-19-2024 Bamboo flowsheet Christopher Reno DO Work Phone: [facility] Start: 09-19-2024 End: 09-19-2024 Bamboo flowsheet Christopher Reno DO Work Phone: [facility] Start: 09-19-2024 End: 09-19-2024 Office outpatient new 45 minutes Christopher Reno DO Work Phone: [facility] Comment on above: Loss of consciousnes s (CMS/HCC) (Primary Dx) Start: 09-19-2024 End: 09-19-2024 ambulatory BLASER RENO Not Available Start: 08-09-2024 End: 08-09-2024 Emergency department patient visit SHIV DICKERSON [facility] Start: 04-06-2024 End: 04-06-2024 ambulatory [facility] Start: 01-09-2024 End: 01-09-2024 Emergency department patient visit Rodriguez Godwin Facility:[facility] Start: 01-09-2024 End: 01-09-2024 Emergency department patient visit MD Rodriguez Godwin Work Phone: [facility] Work Phone: Start: 12-18-2023 End: 12-18-2023 Emergency department patient visit Marie Phil Meli Facility:[facility] Start: 12-18-2023 End: 12-18-2023 Emergency department patient visit MD Rodriguez Godwin Work Phone: [facility] Work Phone: Start: 03-03-2023 End: 03-03-2023 Emergency department patient visit Ramiro Cortez Facility:[facility] Start: 03-03-2023 End: 03-03-2023 Emergency department patient visit MD Rodriguez Godwin Work Phone: [facility] Work Phone: Start: 01-10-2023 End: 01-11-2023 Evaluation and management of inpatient DR DOCTOR CROCKER Facility:H1 Procedures Date Procedure Procedure Detail Performing Clinician Start: 01-09-2024 CT angiography of thorax MD Rodriguez Godwin Work Phone: Start: 01-09-2024 Plain chest X-ray MD Valdivia Work Phone: Start: 03-03-2023 Plain chest X-ray MD Valdivia Work Phone: Appendectomy Frankie HOLLINS Cataract (disorder) Frankie HOLLINS Colonoscopy Frankie HOLLINS Tonsillectomy Frankie HOLLINS Plan of Treatment Date Care Activity Detail Author Start: 05-27-2025 ambulatory Ambulatory Facility:[facility] Start: 05-20-2025 ambulatory Ambulatory Facility:[facility] Start: 11-05-2024 End: 11-05-2024 Patient encounter procedure 11/05/2024 9:00 AM EDT Office Visit MONA [place] [address] [place] [phone] Maribel Bojorquez DO [address] [place] [id number] MONA [place] Start: 09-20-2024 End: 09-20-2024 Clinical Support 09/20/2024 8:45 AM EST Clinical Support MONA [place] [address] [place] [phone] MONA SANDOVAL Start: 09-19-2024 End: 09-19-2025 EEG, Including Recording Awake or Asleep EEG, Including Recording Awake or Asleep Neurology Routine Loss of consciousness (CMS/HCC) Expected: 09/19/2024 (Approximate), Expires: 09/19/2025 [facility] Work Phone: Comment on above: Expected: 09/19/2024 (Approximate), Expires: 09/19/2025 Start: 09-19-2024 End: 09-19-2024 Patient encounter procedure 09/19/2024 9:00 AM EST Office Visit MONA SANDOVAL [address] [place] [phone] Maribel Bojorquez DO [address] [facility] [place], [place] [id number] Arrived MONA SANDOVAL Comment on above: Arrived Start: 04-15-2024 Influenza vaccination Influenza Vacc ine (#1) [facility] Start: 12-18-2023 [facility] Start: 2014 Pneumococcal Vaccine : 65+ Years (1 of 1 - PCV) Pneumococcal Vaccine: 65+ Years (1 of 1 - PCV) [facility] Start: 1950 Screening for malign ant neoplasm of colon [facility] Patient Education [facility] Work Phone: Patient referral [facility] Work Phone: Immunizations Immunization Date Immunization Notes Care Provider Fa malika 10-12-2023 hepatitis B vaccine, adult dosage Frankie HOLLINS [facility] 09-21-2023 influenza virus vaccine, unspecified formulation Maribel Bojorquez DO Work Phone: [facility] 09-14-2023 tetanus toxoid, reduced diphtheria toxoid, and acellular pertussis vaccine, adsorbed Frankie CURRIEL [facility] 09-10-2020 SARS-CoV-2 (COVID-19 ) mRNA-1273 vaccine Frankie NILL [facility] 08-13-2020 SARS-CoV-2 (COVID-19 ) mRNA-1273 vaccine Frankie CURRIEL [facility] Payers Date Payer Category Payer Medicare [id number] 2023 Medicare (Managed Care) JOSÉ MIGUELA M [employer] ADVANTAGE [id number] 2023 Self-pay [id number] 2022 Unknown [id number] 1959 Medicare [id number] 1950 Unknown [id number] 2.16.840.1.160032.3.579. 2.593 1949 Unknown [id number] 2.16.840.1.146443.3.579. 2.1286 1949 Unknown [id number] .16.840.1.648756.3.579. 2.1259 1949 Unknown [id number] 2.16.840.1.667336.3.579. 2.1259 1949 Unknown [id number] 2.16.840.1.244392.3.579. 2.1259 1949 Unknown [id number] 2.16.840.1.720399.3.579. 2.727 1949 Unknown [id number] 2.16.840.1.625149.3.579. 2.727 1949 Unknown [id number] 2.16.840.1.096888.3.579. 2.727 1949 Unknown [id number] 2.16.840.1.925677.3.579. 2.727 1949 Unknown [id number] 2.16.840.1.322065.3.579. 2.727 1949 Unknown [id number] 2.16.840.1.139167.3.579. 2.727 Unknown [id number] 2.16.840.1.246559.3.579. 2.531 Unknown [id number] 2.16.840.1.374072.3.579. 2.531 Unknown [id number] 2.16.840.1.795096.3.579. 2.531 Social History Date Type Detail Facility Start: 03-03-2023 End: 01-09-2024 Tobacco smoking status COIS Ex-smoker (finding) [facility] Start: 1950 [facility]igned At [facility] smoking consumption unknown [facility] Start: 1950 Sex assigned at Not on file [facility] Gender identity Not on file [facility] Start: 01-22-2025 Tobacco smoking status Never s moked tobacco (finding) [facility] Tobacco smoking status Never [facility] [place] Sexual Orientation [facility] [place] Start: 11-26-2009 Sex Male (finding) [facility] Clinical Notes 04-06-2024 to 01-30-2025 Note Date & Type Note Facility 01-30-2025 Evaluation note Diagnosis Onset Date Resolution Atrial flutter acute January 30, 2025 8:59am Loss of consciousness acute Fernando 2024 8:59am Obstructive sleep apnea syndrome noneactive April 17, 025 10:01am [facility] Work Phone: [phone] 358-226806-10-2025 NoteGeneral Surgery Office/Clinic Note Chief Complaint consultation for skin lesion HPI Staff 74 year old male presents on self referral consultation for skin lesion on chest. Reports dark pigmented lesion to upper chest for several years. Denies change in size. Reports this has become darkerover time. Denies soreness or tenderness. Denies bleeding, drainage or itching. History of Present Illness 74 yo male with h/o CAD, Crohn's disease, htn, PE, SVT, BPH, nephrolithiasis, anxiety, presents forevaluation of skin lesion on chest wall; left [...] swallowing difficulties, no hearing loss, no ear infection(s),no nose bleeds. Cardiovascular: normal blood pressure, no [...] ml; lesion excised down to dermis, hemostasis achievedwith cautery; tolerated well; ebl < 3 ml; [...] mRNA-1273 vaccine 09/10/2020 R (more content not included)...[facility]:Result Comment: Electronically Signed By: GUNJAN ADAN, Frankie Cristina\Date and Time Signed: 01/22/25 09:49 [id number] NoteUT Electrophysiology Consult Note Reason for visit: NSVT [...] Food Insecurity (08/09/2024) Received from [facility] Hunger Screening Within the past 12 [...] on file Intimate Partner Violence: Unknown (10/07/2023) [place] Safety & Environment Fear of Current or [...] topiramate 50 mg tabl (more content not included)...[facility]04-29-2025 NotePatient Education Oncology Prostate Cancer Screening Prostate cancer screening is testing that is done to check for the presence of prostate cancer in men. The prostate gland is a walnut-sized gland that is located below the bladder and in front of therectum in males. The function of the prostate is to add fluid to semen during ejaculation. Prostatecancer is one of the most common types [...] is a blood test called the prostate-specific antigen(PSA) test. PSA is a protein that is [...] prostate gland for testing (biopsy). This is theonly way to know for certain if you [...] Where to find more information ??? The [place] [employer]: www.cancer.org ??? [place] [employer]: www.auanet.org Contact a health care [...] men. The prostate gland (more content not included)...[facility]04-02-2025 NoteUT [facility] Subjective Jeb Riddle is a 74 y.o. [...] He was admitted to the hospital at [facility] and was started on anticoagulation therapy. I [...] On 08/31/2024 he was admitted to the [facility] with small bowel obstruction secondary to his [...] evaluated in the emergency room at the [facility] on 11/02/2024 because of episode of near syncope while having bowel movement. Troponin was negative twice, ECG showed sinus rhythm, presentation was suspicious of vasovagal attack he was given intravenous hydration and discharged from the emergency room. Today 11/14/2024 he was evaluated in the emergency room at the [facility] because of dizziness after recent increase in [...] Cardiovascular: Rate and Rhythm: (more content not included)...[facility]02-10-2025 NoteUT Cardiology - [facility] Subjective Jeb Riddle is [...] He was admitted to the hospital at [facility] and was started on anticoagulation therapy. 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 He had taken a Seroquel the night [...] night. This has been for about 2 yea rs. He lost his job in [employer] and his house and has had issues [...] , wrist extensors , wrist flexor , liquid sugar fortifier strength 5/5. LUE Strength deltoid , biceps , triceps , wrist extensors , wrist flexor , liquid sugar fortifier strength 5/5. RLE Strength illopsoas, quadriceps, tibialis [...] reflex 2+ . Reese's sign negative. Coordination: Vkxsmz-[id number]-aibw testing and rapid alternating movements are normal Gait: Normal Review and summary of old records: CT of the brain without contrast on 08/09/2024 with comparison to 07/14/2022: No acute intracranialpathology I have reviewed notations from [place] emergency department where this 73-year-old patient presented on 08/09/2024 feeling dizzy in the morning and believe be at a possible seizure. He admitted to trouble sleeping the night before so he took a dose of Seroquel and had some mixed drinks he was very s leepy when he woke up in the morning. It was also noted to have very low blood pressure. He was offered admission and discharged in stable condition after unremarkable CT of the brain. Assessment/Plan Diagnoses and all orders for this visit: Loss of consciousness (CMS/HCC) It is my impression that the patient [...] states he had a recent MRI at [facility] that was also unremarkable. He has no family history of seizure. Has no personal history of seizure. He has no intracranial risk factors for seizure history of infection that would predispose to seizure. Examination today unremarkable. Plan: Obtain routine EEG to assess for any epileptiform abnormalities which may account for the patient'ssymptoms As this is a 1 time event [...] plan, and return instructions documented in this encounterE[facility] [id number] NoteUT Cardiology - [facility] Subjective Jeb Riddle is a 73 y.o. year old male patient here for a follow up echo from January, he was amitted to [facility], for chest pain a couple weeks ago and had another echo. He had a lipid panel yesterday. At last appointment his statin was changed. 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 He still rides his bike to [place] everyday, still active. Patient Active Problem List [...] He was admitted to the hospital at [facility] and was started on anticoagulation [...] Rfl: metoprolol succinate XL (more content not included)...[facility] + Plan note Future Appointments Appointment Date:05/20/2025 09:00:00 AM Scheduled Provider: [facility] Appointment Type:URO Nurse Visit Appointment Date:05/27/2025 08:45:00 AM Scheduled Provider:Jaun BRADSHAW MD Location:[facility] [place] Appointment Type:URO Office Visit [facility] [place] Evaluation noteNo assessment information available [facility] Work Phone: Evaluation note* Diagnosis Loss of consciousness (CMS/HCC)- Primary Other alteration of consciousness documented in this encounter [facility] Narrative No data available for this section [facility] Hospital Discharge instructions Additional Instructions Continue Pepcid once or twice a day as needed Garden diet Follow-up with your family doctor for recheck Return to the ER for worsening pain shortness of breath fever or any other concernsHocking [facility] Work Phone: Hospital Discharge instructions No data available for this section [facility] Progress note No data available for this section [facility] Refsud for referral (narrative)No reason for referral information availableToledo Hospital Work Phone: Rewlcr for visit Narrative* Consultation (Routine) - Closed Specialty Diagnoses / Procedures Referred By Contac t Referred To Contact Neurology Diagnoses Unspecified convulsions (CMS/HCC) Syncope and collapse Procedures [place] OFFICE/OUTPATIENT NEW LOW MDM 30 MINUTES Rodriguez Godwin MD [address] [place] [address] Phone: tel:[phone] fax: Maribel Bojorquez DO [address] [place] [address] Phone: tel: fax: Referral ID Status Reason Start Date Expiration Date V isits Requested Visits Authorized [id number] Closed Consult and Treat 08/17/2024 02/13/2025 1 1 [facility] Summary Purpose Family History Relationship Condition Age at Onset Recorded Date/T arline Not Specified No pertinent family history Unknown Advance Directives Advance Directive Response Recorded Date/ Time Advance Directives No September 06, 2019 7:32am Chief Complaint and Reason for Visit Chief Complaint chest discomfort Chief Complaint lightheaded Chief Complaint lightheaded chest pain Reason for Visit Admit Date Atrial flutter January 30, 2025 8:59 am Loss of consciousness January 30, 2025 8: 59am Obstructive sleep apnea syndrome Septemb er 2024 10:01am Additional Source Comments (unrecognized sect ion and content) No Status Records FoundNo Status Records FoundNo Status Records FoundNo Status Records FoundNo Status Records FoundNo Status Records FoundNo Status Records FoundNo Status Records FoundNo Status Records Found INFORMATION SOURCE (unrecogn ized section and content) DATE CREATED AUTHOR 10/07/2021 [facility] dical Specialist DATE CREATED AUTHOR AUTHOR'S ORGANIZ ATION 01/21/2023 [facility] pital DATE CREATED AUTHOR AUTHOR'S ORGANIZ ATION 01/09/2024 [facility] y[facility] DATE CREATED AUTHOR AUTHOR'S ORGANIZ ATION 08/10/2024 [facility] DATE CREATED AUTHOR AUTHOR'S ORGANIZ ATION 11/05/2024 [facility] dical Specialists [facility] DATE CREATED AUTHOR AUTHOR'S ORGANIZ ATION 01/27/2025 [facility] DATE CREATED AUTHOR AUTHOR'S ORGANIZ ATION 01/27/2025 [facility] DATE CREATED AUTHOR AUTHOR'S ORGANIZ ATION 01/28/2025 [facility] DATE CREATED AUTHOR AUTHOR'S ORGANIZ ATION 02/01/2025 [facility] Care Teams (unrecognized sec tion and content) Team Status: Active Member Role Status Dates Rodriguez Godwin MD Primary Care Provider Active Team Status: Active Member Role Status Dates Rodriguez Godwin MD Primary Care Provider Active Start: January 29, 2025 Santa Martinez DO Attending Provider Active Sta rt: January 29, 2025 Team Status: Inactive Member Role Status Dates Rodriguez Godwin MD Primary Care Provider Active Start: January 30, 2025 End: January 30, 2025 Maribel Bojorquez DO Attending Provider Active Start: January 30, 2025 End: January 30, 2025 Team Status: Active Member Role Status Dates Rodriguez Godwin MD Primary Care Provider Active Start: January 30, 2025 Santa Martinez DO Attending Provider Active Sta rt: January 30, 2025 Team Status: Inactive Member Role Status Eduardo Godwin MD Primary Care Provider Active Start: April 17, 2025 End: April 17, 2025 Santa Martinez DO Attending Provider Active Sta rt: April 17, 2025 End: April 17, 2025 Team Status: Active Member Role Status Eduardo [...] 2024 End: January 09, 2024 Naima Boyd [facility] Emergency Provider Active Start: January 09, 2024 End: January 09, 2024 Team Status: Active Member Role Status Eduardo Godwin MD Primary Care Provider Active Start: January 29, 2025 Santa Martinez DO Attending Provider Active Sta rt: January 29, 2025 Team Status: Inactive Member Role Status Eduardo Godwin MD Primary Care Provider Active Start: January 30, 2025 End: January 30, 2025 Maribel Bojorquez DO Attending Provider Active Start: January 30, 2025 End: January 30, 2025 Team Status: Active Member Role Status Eduardo Godwin MD Primary Care Provider Active Start: January 30, 2025 Santa Martinez DO Attending Provider Active Sta rt: January 30, 2025 Team Status: Inactive Member Role Status Eduardo Godwin MD Primary Care Provider Active Start: April 17, 2025 End: April 17, 2025 Santa Martinez DO Attending Provider Active Sta rt: April 17, 2025 End: April 17, 2025 Goals (unrecognized section and content) Goals may be documented in a n alternate sectionGoals may be documented in an alternate sectionGoals may be documented in an alternate section No data available for this section No data available for this sectionGoals may be documented in an alternate [...] BE BASED ON THE PRIMARY CLINICAL RECORDS. [employer] [facility]. provides no warranty or guarantee of the accuracy or completeness of information in this document.
--- OUTSIDE RECORDS SUMMARY | 2025-04-21 21:34 | XMS_ITS | Patient Health Record ---
Author Organization [facility] in [place] Address [address] [place] [address] Care Team Providers Care Hospital Admissions Officer Name Role Phone [employer] Primary Care Provider Allergies Allergen (clinical drug ingredient) Drug/Non Drug Allergy documented on EMR Reaction Allergy Type Onset Date Status Seafood Seafood (uncoded) GI issues Allergy Ac tive Results Component Value Reference Range Notes CBC AUTO DIFF Reviewed date:03/21/2025 10:21:21 PM Interpretation: Performing Lab: Notes/Report: The , White Blood Count 7.3 4.0-11.0 10 [...] 0.00-0.03 10 3/uL Performing Lab: see note - [facility] LB PROF 14(COMP METB) Reviewed date:03/21/2025 10:21:21 PM Interpretation: Performing Lab: Notes/Report: The , Sodium 138 136-145 mmol/L Potassium 4.8 3.5-5.1 mmol/L Chloride 106 98-107 mmol/L Carbon Dioxide 26.1 21.0-32.0 mmol/L Anion Gap 10.7 Glucose 94 74-106 mg/dL Blood Urea Nitrogen 30.0 7.0-18.0 mg/dL Creatinine 1.33 0.70-1.30 mg/dL Estimated GFR ( Aleyda >60 >=60 mL/min/1.73m 2 Estimated GFR (Non- Ele 52 >=60 mL/min/1.73m 2 BUN Creatinine Ratio 22.6 Calcium 8.8 8.5-10.1 mg/dL Bilirubin Total 0.5 0.2-1.0 mg/dL Aspartate Amino Transferase 22 15-37 U/L Alanine Aminotransferase 35 16-63 U/L Alkaline Phosphatase 77 46-116 U/L Total Protein 7.0 6.4-8.2 g/dL Albumin Level 3.6 3.4-5.0 g/dL Globulin 3.4 Albumin Globulin Ratio 1.1 Performing Lab: see note ML - [facility] LB CBC AUTO DIFF Reviewed date:08/31/2024 09:11:51 AM Interpretation: Performing Lab: Notes/Report: The , White Blood Count 8.0 4.0-11.0 10 [...] Performing Lab: see note ML - [facility] LB LACTATE or LACTIC ACID Reviewed date:08/31/2024 09:11:51 AM Interpretation: Performing Lab: Notes/Report: The , Lactate/Lactic Acid 1.2 0.4-2.0 mmol/L Performing Lab: see note ML - [facility] LB LIPASE Reviewed date:08/31/2024 09:11:51 AM Interpretation: Performing Lab: Notes/Report: The , Lipase 24.0 16.0-77.0 U/L Performing Lab: see note ML - [facility] LB PROF 14(COMP METB) Reviewed date:08/31/2024 09:11:51 AM Interpretation: Performing Lab: Notes/Report: The , Sodium 144 136-145 mmol/L Potassium 5.0 [...] 1.1 Performing Lab: see note ML - [facility] LB UA Micro, reflex to culture Reviewed date:08/31/2024 09:11:51 AM Interpretation: Performing Lab: Notes/Report: The , Color Urine YELLOW YELLOW Clarity Urine CLEAR CLEAR Specific Alpine Urine 1.025 1.005-1.025 pH Urine 5.5 5.0-9.0 [...] Performing Lab: see note ML - [facility] LB XR acute abdomen series Reviewed date:08/31/2024 09:11:51 AM Interpretation: Performing Lab: Notes/Report: Source Facility: -[address] [place] [address] [place] [address] XRay Report Signed Patient: JEB RIDDLE MR#: [id number] : 1950 Acct:[id number] Age/Sex: 73 / M ADM Date: 08/30/24 Loc: ER Attending Dr: Ordering Physician: Warner Maradiaga Date of Service: 08/30/24 Procedure(s): XR acute abdomen series Accession Number(s): [id number] cc: Rodriguez Godwin M.D.; Warner Maradiaga [address] [address] Patient Name: JEB RIDDLE MRN: [facility]:[id number] date: 1950 Sex: M Assigned Patient Location: ER Current Patient Location: ER Accession/Order Number: [id number] Exam Date: 08/30/2024 21:10 Report Date: 08/30/2024 [...] M.D. Signed By: 08/30/242240 DD/ 38 TD/TT: Wrapping Machine Helper: [place] [address] XRay Report Signed Patient: JEB RIDDLE MR#: [id number] : 1950 Acct:[id number] Age/Sex: 73 / M ADM Date: 08/30/24 Loc: ER Attending Dr: Ordering Physician: Warner Maradiaga Date of Service: 08/30/24 Procedure(s): XR acu te abdomen series Accession Number(s): [id number] cc: Rodriguez Godwin M.D. ; Warner Maradiaga The [address] [address] Patient Name: JEB RIDDLE MRN: [facility]:[id number] date: 1950 Sex: M Assigned Patient Location: ER Current Patient Loca tion: ER Accession/Order Numb er: [id number] Exam Date: 08/30/2024 21:10 Report Date: 08/30/2024 22:39 At the request of: WARNER MARADIAGA Procedure: XR acute abdomen series EXAMINATION: XR acut e abdomen series HISTORY: concern for SBO ; abdominal pain ; history of Crohn's disease COMPARISON: XR acute abdomen series 11/01/2023 FINDINGS: LUNGS: Mild opacity and trace stranding within left lateral costophrenic angle. MEDIASTINUM: No abno rmal widening. BOWEL GAS PATTERN: A few fluid-filled mildly distended loops of small bowel within left upper quadrant. Moderate amount of stool throughout the colon. Right upper quadrant calcifications which may be within diverticula. FREE AIR: None. CALCIFICATIONS: None significant. BONES: No fracture o r visible bone lesion. OTHER: Negative. X R/XR acute abdomen series IMPRESSION: 1. Trace amount of lingular infiltrates versus atelectasis. 2. Suspect mild ente ritis or mild flareup of Crohn's disease. No bowel obstruction or ileus. Electronically authenticated by: LILIANA GONZALEZ Date: 08/30/2024 22:39 Dictated By: Liliana Gonzalez M.D. Signed By: 08/30/24 2241 DD/ 2239 TD/TT: Wrapping Machine Helper: MAGNESIUM Reviewed date:08/31/2024 09:11:51 AM Interpretation: Performing Lab: Notes/Report: The , Magnesium 1.5 1.8-2.4 mg/dL Performing Lab: see note ML - [facility] LB ECG 12 lead Reviewed date:09/03/2024 07:13:00 PM Interpretation: Performing Lab: Notes/Report: Source Facility: [place] [address] [place] [address] Electrocardiograph Report Signed with Addenda Patient: JEB RIDDLE MR#: [id number] : 1950 Acct:[id number] Age/Sex: 73 / M ADM Date: 08/31/24 Loc: [place] 221-[address]: Rodriguez Godwin M.D. Ordering Physician: Rodriguez Godwin M.D. Date of Service: 08/31/24 Procedure(s): ECG 12 lead Accession Number(s): [id number] cc: ADDENDUM The Test Date: 2024-08-31 Pat Name: EJB RIDDLE Department: Room: [facility] Gender: Male Medicare Sales Representative: : 1950 Requested By: RODRIGUEZ GODWIN Order Number: [id number] Reading MD: EDER MCNAIR Measurements Intervals [place] Rate: 100 P: 74 NC: 176 QRS: 84 QRSD: 102 T: 64 QT: 364 QTc: 421 Interpretive Statements 1120 Sinus tachycardia Subtle, nonspecific inferior ST changes. Compared to previous tracing, rate much improved. Electronically Signed On 09-03-2024 17:46:26 EST by EDER MCNAIR Addendum Dictated By: Eder Mcnair D.O. Addendum Signed By: 09/03/24 1 746 Addendum Cosigned By: DD/ TD/TT: / The Test Date: 2024-08-31 Pat Name: JEB RIDDLE Department: Room: [facility] Gender: Male Medicare Sales Representative: : 1950 Requested By: RODRIGUEZ GODWIN Order Number: [id number] Reading MD: EDER MCNAIR Measurements Intervals [place] Rate: 100 P: 74 NC: 176 QRS: 84 QRSD: 102 T: 64 [...] Mcnair D.O. Signed By: 09/03/24 174 DD/ 31 TD/TT: Wrapping Machine Helper: [place] [address] Electrocardiograph Report Signed with Addenda Patient: JEB RIDDLE MR#: [id number] : 1950 Acct:[id number] Age/Sex: 73 / M ADM Date: 08/31/24 Loc: [place] 221-[address]: Yasmin Godwin M.D. Ordering Physician: Rodriguez Godwin M.D. Date of Service: 08/31/24 Procedure(s): ECG 12 lead Accession Number(s): [id number] cc: ADDENDUM The Test Date: 2024-08-31 Pat Name: JEB RIDDLE Department: 54 Room: [facility] Gender: Male Medicare Sales Representative: : 1950 Requ ested By: RODRIGUEZ GODWIN Order Number: [id number] Reading MD: EDER MCNAIR Measurements Intervals [place] Rate: 100 P: 74 NC: 176 QRS: 84 QRSD: 102 T: 64 QT: 364 QTc: 421 Interpretive Statements 1120 Sinus tachycardia Subtle, nonspecific inferior ST changes. Compared to previous tracing, rate much improved. Electronically Johana d On 09-03-2024 17:46:26 EST by EDER MCNAIR Addendum Dictated By : Eder Mcnair D.O. Addendum Signed By: 09/03/24 1 746 Addendum Cosigned By: DD/ TD/TT: / The Test Date: 2024-08-31 Pat Name: JEB RIDDLE Department: 54 Room: [facility] Gender: Male Medicare Sales Representative: : 1950 Requ ested By: RODRIGUEZ GODWIN Order Number: [id number] Reading MD: EDER MCNAIR Measurements Intervals [place] Rate: 100 P: 74 NC: 176 QRS: 84 QRSD: 102 T: 64 QT: 364 QTc: 421 Interpretive Statements 1120 Sinus tachycardia [address] depression [address] Twave abnormality 9140 abnormal rhy th ECG Compared to ECG 08/31/2024 15:16:05 Supraventricular tachycardia no longer present ST (T wave) deviatio n still present Electronically Johana d On 09-03-2024 17:40:38 EST by EDER MCNAIR Dictated By: Eder Mcnair D.O. Signed By: 09/03/24 1741 DD/ 1532 TD/TT: Wrapping Machine Helper: Troponin I High Sensitivity Reviewed date:09/02/2024 02:45:21 PM Interpretation: Performing Lab: Notes/Report: The , Troponin I High Sensitivity 238.9 4.0-76.1 pg/mL RESULTS CALLED TO ICU Doug Howard RN @BY Nicholas Amezquita MT at 2251 CUT-OFF POINTS HAVE BEEN ESTABLISHED BASED ON THE FOURTH UNIVERSAL DEFINITION OF MYOCARDIAL INFARCTION. THE UPPER REFERENCE LIMIT (URL) OF TROPONIN, DEFINED THE 99TH PERCENTILE OF cTnI DISTRIBUTION IN A REFERENCE POPULATION, HAS BEEN CONFIRMED THE DECISION THRESHOLD FOR [place] DIAGNOSIS. 99TH PERCENTILE = 76.2 PG/ML NOTE: HIGH-SENSITIVITY TROPONIN ASSAY IS NOT INTENDED TO BE USED IN ISOLATION BUT SHOULD BE INTERPRETED IN CONJUNCTION WITH OTHER DIAGNOSTIC AND CLINICAL INFORMATION. Performing Lab: see note ML - [facility] LB ECG 12 lead Reviewed date:09/03/2024 07:13:00 PM Interpretation: Performing Lab: Notes/Report: Source Facility: -[address] [place] [address] [place] [address] Electrocardiograph Report Signed Patient: JEB RIDDLE MR#: [id number] : 1950 Acct:[id number] Age/Sex: 73 / M ADM Date: 08/31/24 Loc: [place] 221-[address]: Rodriguez Godwin M.D. Ordering Physician: Namita Hendrix NP Date of Service: 08/31/24 Procedure(s): ECG 12 lead Accession Number(s): [id number] cc: [facility] Test Date: 2024-08-31 Pat Name: JEB RIDDLE Department: Room: [facility] Gender: Male Medicare Sales Representative: : 1950 Requested By: RODRIGUEZ GODWIN Order Number: [id number] Reading MD: EDER MCNAIR Measurements Intervals [place] Rate: 104 P: 73 NC: 168 QRS: 80 QRSD: 96 T: 65 QT: 348 QTc: 408 Interpretive Statements 1120 Sinus tachycardia 9140 abnormal rhythm ECG Compared to ECG 08/31/2024 15:32:33 ST (T wave) deviation no longer present Electronically Signed On 09-03-2024 17:43:08 EST by EDER MCNAIR Dictated By: Eder Mcnair D.O. Signed By: 09/03/241742 DD/ 05 TD/TT: Wrapping Machine Helper: [place] [address] Electrocardiograph Report Signed Patient: JEB RIDDLE MR#: [id number] : 1950 Acct:[id number] Age/Sex: 73 / M ADM Date: 08/31/24 Loc: MS 221-[address]: Yasmin Godwin M.D. Ordering Physician: Namita Hendrix NP Date of Service: 08/31/24 Procedure(s): ECG 12 lead Accession Number(s): [id number] cc: The Test Date: 2024-08-31 Pat Name: JEB RIDDLE Department: 54 Room: [facility] Gender: Male Medicare Sales Representative: : 1950 Requ ested By: RODRIGUEZ GODWIN Order Number: [id number] Reading MD: EDER MCNAIR Measurements Intervals [place] Rate: 104 P: 73 NC: 168 QRS: 80 QRSD: 96 T: 65 QT: 348 QTc: 408 Interpretive Statements 1120 Sinus tachycardia 9140 abnormal rhy thm ECG Compared to ECG 08/31/2024 15:32:33 ST (T wave) deviatio n no longer present Electronically Johana d On 09-03-2024 17:43:08 EST by EDER MCNAIR Dictated By: Eder Mcnair D.O. Signed By: 09/03/241742 DD/ 05 TD/TT: Wrapping Machine Helper: BNP Reviewed date:09/02/2024 02:45:20 PM Interpretation: Performing Lab: Notes/Report: The , NT Pro B Type Natriuretic Pept 2325.0 <=900.0 pg/mL RESULTS CALLED TO ELVIA ALLRED RN AT 0741 Performing Lab: see note ML - [facility] LB CBC AUTO DIFF Reviewed date:09/02/2024 02:45:20 PM Interpretation: Performing Lab: Notes/Report: The , White Blood Count 13.1 4.0-11.0 10 [...] Performing Lab: see note ML - [facility] LB PROF CHEM 8 (BAS METB) Reviewed date:09/02/2024 02:45:20 PM Interpretation: Performing Lab: Notes/Report: The , Sodium 140 136-145 mmol/L Potassium 4.7 3.5-5.1 mmol/L Chloride 108 98-107 mmol/L Carbon Dioxide 20.4 21.0-32.0 mmol/L Anion Gap 16.3 Glucose 151 74-106 mg/dL Blood Urea Nitrogen 27.0 7.0-18.0 mg/dL Creatinine 1.27 0.70-1.30 mg/dL Estimated GFR ( Laeyda >60 >=60 mL/min/1.73m 2 Estimated GFR (Non- Ele 55 >=60 mL/min/1.73m 2 BUN Creatinine Ratio 21.3 Calcium 8.6 8.5-10.1 mg/dL Performing Lab: see note ML - [facility] LB PTT HEPARIN MONITOR Reviewed date:09/02/2024 02:45:20 PM Interpretation: Performing Lab: Notes/Report: The , PTT Heparin Monitor 35.3 43.5-61.5 sec RESULTS CALLED TO ELVIA ALLRED RN AT 0819 Performing Lab: see note ML - [facility] LB Troponin I High Sensitivity Reviewed date:09/02/2024 02:45:20 PM Interpretation: Performing Lab: Notes/Report: The , Troponin I High Sensitivity 599.4 4.0-76.1 pg/mL RESULTS CALLED TO ICU Shani Coyne RN @BY Nicholas Amezquita MT at 0629 CUT-OFF POINTS HAVE BEEN ESTABLISHED BASED ON THE FOURTH UNIVERSAL DEFINITION OF MYOCARDIAL INFARCTION. THE UPPER REFERENCE LIMIT (URL) OF TROPONIN, DEFINED THE 99TH PERCENTILE OF cTnI DISTRIBUTION IN A REFERENCE POPULATION, HAS BEEN CONFIRMED THE DECISION THRESHOLD FOR [place] DIAGNOSIS. 99TH PERCENTILE = 76.2 PG/ML NOTE: HIGH-SENSITIVITY TROPONIN ASSAY IS NOT INTENDED TO BE USED IN ISOLATION BUT SHOULD BE INTERPRETED IN CONJUNCTION WITH OTHER DIAGNOSTIC AND CLINICAL INFORMATION. Performing Lab: see note ML - [facility] LB ECG 12 lead Reviewed date:09/03/2024 07:13:00 PM Interpretation: Performing Lab: Notes/Report: Source Facility: -[address] [place] [address] [place] [address] Electrocardiograph Report Signed Patient: JEB RIDDLE MR#: [id number] : 1950 Acct:[id number] Age/Sex: 73 / M ADM Date: 08/31/24 Loc: [place] 221-[address]: Rodriguez Godwin M.D. Ordering Physician: Rodriguze Godwin M.D. Date of Service: 09/01/24 Procedure(s): ECG 12 lead Accession Number(s): [id number] cc: [facility] Test Date: 2024-09-01 Pat Name: JEB RIDDLE Department: Room: [facility] Gender: Male Medicare Sales Representative: : 1950 Requested By: RODRIGUEZ GODWIN Order Number: [id number] Reading MD: EDER MCNAIR Measurements Intervals [place] Rate: 100 P: 77 NC: 168 QRS: 81 QRSD: 102 T: 67 QT: 356 QTc: 413 Interpretive Statements 1120 Sinus tachycardia 9140 abnormal rhythm ECG Compared to ECG 08/31/2024 23:06:52 No significant changes Electronically Signed On 09-03-2024 17:49:55 EST by EDER MCNAIR Dictated By: Eder Mcnair D.O. Signed By: 09/03/24 1750 DD/ 0747 TD/TT: Wrapping Machine Helper: [place] [address] Electrocardiograph Report Signed Patient: JEB RIDDLE MR#: [id number] : 1950 Acct:[id number] Age/Sex: 73 / M ADM Date: 08/31/24 Loc: MS 221-[address]: Yasmin Godwin M.D. Ordering Physician: Rodriguez Godwin M.D. Date of Service: 09/01/24 Procedure(s): ECG 12 lead Accession Number(s): [id number] cc: [facility] Test Date: 2024-09-01 Pat Name: JEB RIDDLE Department: 54 Room: [facility] Gender: Male Medicare Sales Representative: : 1950 Requ ested By: RODRIGUEZ GODWIN Order Number: [id number] Reading MD: EDER MCNAIR Measurements Intervals [place] Rate: 100 P: 77 NC: 168 QRS: 81 QRSD: 102 T: 67 QT: 356 QTc: 413 Interpretive Statements 1120 Sinus tachycardia 9140 abnormal rhy thm ECG Compared to ECG 08/31/2024 23:06:52 No significant changes Electronically Johana d On 09-03-2024 17:49:55 EST by EDER MCNAIR Dictated By: Eder Mcnair D.O. Signed By: 09/03/24 1750 DD/ 0747 TD/TT: Wrapping Machine Helper: XR acute abdomen series Reviewed date:09/02/2024 02:45:20 PM Interpretation: Performing Lab: Notes/Report: Source Facility: [place] [address] XRay Report Signed Patient: JEB RIDDLE MR#: [id number] : 1950 Acct:[id number] Age/Sex: 73 / M ADM Date: 08/31/24 Loc: ICU 270-[address]: Rodriguez Godwin M.D. Ordering Physician: Rodriguez Godwin M.D. Date of Service: 09/01/24 Procedure(s): XR acute abdomen series Accession Number(s): [id number] cc: Rodriguez Godwin M.D. [place] [address] Patient Name: JEB RIDDLE MRN: [id number]:[id number] date: 1950 Sex: M Assigned Patient Location: ICU Current Patient Location: ICU Accession/Order Number: [id number] Exam Date: 09/01/2024 07:15 Report Date: 09/01/2024 08:20 At the request of: RODRIGUEZ GODWIN Procedure: XR acute abdomen series Exam: [...] Dictated By: Aditya Oates M.D. Signed By: 09/01/24 0822 DD/ 9 TD/TT: Wrapping Machine Helper: [place] [address] XRay Report Signed Patient: JEB RIDDLE MR#: [id number] : 1950 Acct:[id number] Age/Sex: 73 / M ADM Date: 08/31/24 Loc: ICU 270-[address]: Yasmin Godwin M.D. Ordering Physician: Rodriguez Godwin M.D. Date of Service: 09/01/24 Procedure(s): XR acu te abdomen series Accession Number(s): [id number] cc: Rodriguez Godwin M.D. [facility] [address], [place] [address] Patient Name: JEB RIDDLE MRN: [id number]:[id number] date: 1950 Sex: M Assigned Patient Location: ICU Current Patient Loca tion: ICU Accession/Order Numb er: [id number] Exam Date: 09/01/2024 07:15 Report Date: 09/01/2024 08:20 At the request of: RODRIGUEZ GODWIN Procedure: XR acute abdomen series Exam: Radiographs: X R acute abdomen series Reason for exam: fol low up sbo Comparison: Plain fi lms from 08/30/2024 X R/XR acute abdomen series IMPRESSION: No free intraperiton eal air. No gas-filled dilated loops of small bowel or colon. No gaseous dilation of the stomach. No fecal impaction. Right nephrolithiasis. Hyperinflation of alex th lungs. Remainder unremarkable. Electronically authenticated by: ADITYA OATES Date: 09/01/2024 08:20 Dictated By: Marcello Oates M.D. Signed By: 09/01/24821 DD/ 9 TD/TT: Wrapping Machine Helper: PTT HEPARIN MONITOR Reviewed date:09/02/2024 02:45:20 PM Interpretation: Performing Lab: Notes/Report: [facility] , PTT Heparin Monitor 66.1 43.5-61.5 sec RESULTS CALLED TO Chen Mason RN @BY Nicholas Amezquita MT at 2011 Performing Lab: see note ML - [facility] LB BNP Reviewed date:09/02/2024 02:45:20 PM Interpretation: Performing Lab: Notes/Report: The , NT Pro B Type Natriuretic Pept 1874.0 <=900.0 pg/mL RESULTS CALLED TO LUCILA PRICE RN ON [facility] BY Mansi Parikh at 0710 Performing Lab: see note ML - [facility] LB CBC AUTO DIFF Reviewed date:09/02/2024 02:45:20 PM Interpretation: Performing Lab: Notes/Report: The , White Blood Count 9.1 4.0-11.0 10 [...] Performing Lab: see note ML - [facility] LB PROF CHEM 8 (BAS METB) Reviewed date:09/02/2024 02:45:20 PM Interpretation: Performing Lab: Notes/Report: The , Sodium 143 136-145 mmol/L Potassium 4.4 [...] mg/dL Performing Lab: see note ML - [facility] Troponin I High Sensitivity Reviewed date:09/02/2024 02:45:20 PM Interpretation: Performing Lab: Notes/Report: The , Troponin I High Sensitivity 600.2 4.0-76.1 pg/mL RESULTS CALLED TO ADRIENNE PRICE RN ON [facility] BY Mansi Parikh at 0709 CUT-OFF POINTS HAVE BEEN ESTABLISHED BASED ON THE FOURTH UNIVERSAL DEFINITION OF MYOCARDIAL INFARCTION. THE UPPER REFERENCE LIMIT (URL) OF TROPONIN, DEFINED THE 99TH PERCENTILE OF cTnI DISTRIBUTION IN A REFERENCE POPULATION, HAS BEEN CONFIRMED THE DECISION THRESHOLD FOR [place] DIAGNOSIS. 99TH PERCENTILE = 76.2 PG/ML NOTE: HIGH-SENSITIVITY TROPONIN ASSAY IS NOT INTENDED TO BE USED IN ISOLATION BUT SHOULD BE INTERPRETED IN CONJUNCTION WITH OTHER DIAGNOSTIC AND CLINICAL INFORMATION. Performing Lab: see note ML - [facility] LB ECG 12 lead Reviewed date:09/03/2024 07:13:00 PM Interpretation: Performing Lab: Notes/Report: Source Facility: -[address] [place] [address] [place] [address] Electrocardiograph Report Signed Patient: JEB RIDDLE MR#: [id number] : 1950 Acct:[id number] Age/Sex: 73 / M ADM Date: 08/31/24 Loc: MS 221-[address]: Rodriguez Godwin M.D. Ordering Physician: Rodriguez Godwin M.D. Date of Service: 09/02/24 Procedure(s): ECG 12 lead Accession Number(s): [id number] cc: The Test Date: 2024-09-02 Pat Name: JEB RIDDLE Department: Room: [facility] Gender: Male Medicare Sales Representative: : 1950 Requested By: RODRIGUEZ GODWIN Order Number: [id number] Reading MD: EDER MCNAIR Measurements Intervals [place] Rate: 55 P: 75 NC: 172 QRS: 74 QRSD: 108 T: 64 QT: 426 QTc: 409 Interpretive Statements SINUS BRADYCARDIA WITH MARKED SINUS ARRHYTHMIA Nonspecific ST/T wave changes Compared to ECG 09/01/2024 07:47:40 Sinus tachycardia no longer present Electronically Signed On 09-03-2024 17:54:39 EST by EDER MCNAIR Dictated By: Eder Mcnair D.O. Signed By: 09/03/241753 DD/ 0909 TD/TT: Wrapping Machine Helper: [place] [address] Electrocardiograph Report Signed Patient: JEB RIDDLE MR#: [id number] : 1950 Acct:[id number] Age/Sex: 73 / M ADM Date: 08/31/24 Loc: MS 221-[address]: Yasmin Godwin M.D. Ordering Physician: Rodriguez Godwin M.D. Date of Service: 09/02/24 Procedure(s): ECG 12 lead Accession Number(s): [id number] cc: The Test Date: 2024-09-02 Pat Name: JEB RIDDLE Department: 54 Room: [facility] Gender: Male Medicare Sales Representative: : 1950 Requ ested By: RODRIGUEZ GODWIN Order Number: [id number] Reading MD: EDER MCNAIR Measurements Intervals [place] Rate: 55 P: 75 NC: 172 QRS: 74 QRSD: 108 T: 64 QT: 426 QTc: 409 Interpretive Statements SINUS BRADYCARDIA WI TH MARKED SINUS ARRHYTHMIA Nonspecific ST/T wav e changes Compared to ECG 09/01/2024 07:47:40 Sinus tachycardia no longer present Electronically Johana d On 09-03-2024 17:54:39 EST by EDER MCNAIR Dictated By: Eder Mcnair D.O. Signed By: 09/03/241753 DD/ 0909 TD/TT: Wrapping Machine Helper: PTT HEPARIN MONITOR Reviewed date:09/02/2024 02:45:20 PM Interpretation: Performing Lab: Notes/Report: The , PTT Heparin Monitor 47.6 43.5-61.5 sec Performing Lab: see note ML - [facility] LB Troponin I High Sensitivity Reviewed date:09/02/2024 02:45:20 PM Interpretation: Performing Lab: Notes/Report: The , Troponin I High Sensitivity 471.2 4.0-76.1 pg/mL RESULTS CALLED TO LUCILA PRICE RN ON [employer] BY Mansi Parikh at 1044 CUT-OFF POINTS HAVE BEEN ESTABLISHED BASED ON THE FOURTH UNIVERSAL DEFINITION OF MYOCARDIAL INFARCTION. THE UPPER REFERENCE LIMIT (URL) OF TROPONIN, DEFINED THE 99TH PERCENTILE OF cTnI DISTRIBUTION IN A REFERENCE POPULATION, HAS BEEN CONFIRMED THE DECISION THRESHOLD FOR [place] DIAGNOSIS. 99TH PERCENTILE = 76.2 PG/ML NOTE: HIGH-SENSITIVITY TROPONIN ASSAY IS NOT INTENDED TO BE USED IN ISOLATION BUT SHOULD BE INTERPRETED IN CONJUNCTION WITH OTHER DIAGNOSTIC AND CLINICAL INFORMATION. Performing Lab: see note ML - [facility] LB CBC AUTO DIFF Reviewed date:11/03/2024 11:57:49 AM Interpretation: Performing Lab: Notes/Report: The , White Blood Count 5.6 4.0-11.0 10 [...] 3/uL Performing Lab: see note ML - [facility] LB Troponin I High Sensitivity Reviewed date:11/03/2024 11:57:49 AM Interpretation: Performing Lab: Notes/Report: The , Troponin I High Sensitivity 12.3 4.0-76.1 pg/mL CUT-OFF POINTS HAVE BEEN ESTABLISHED BASED ON THE FOURTH UNIVERSAL DEFINITION OF MYOCARDIAL INFARCTION. THE UPPER REFERENCE LIMIT (URL) OF TROPONIN, DEFINED THE 99TH PERCENTILE OF cTnI DISTRIBUTION IN A REFERENCE POPULATION, HAS BEEN CONFIRMED THE DECISION THRESHOLD FOR [place] DIAGNOSIS. 99TH PERCENTILE = 76.2 PG/ML NOTE: HIGH-SENSITIVITY TROPONIN ASSAY IS NOT INTENDED TO BE USED IN ISOLATION BUT SHOULD BE INTERPRETED IN CONJUNCTION WITH OTHER DIAGNOSTIC AND CLINICAL INFORMATION. Performing Lab: see note ML - [facility] LB CBC AUTO DIFF Reviewed date:11/25/2024 03:42:59 PM Interpretation: Performing Lab: Notes/Report: The , White Blood Count 5.9 4.0-11.0 10 [...] 3/uL Performing Lab: see note ML - [facility] LB UA Micro, reflex to culture Reviewed date:11/25/2024 04:13:08 PM Interpretation: Performing Lab: Notes/Report: The , Color Urine LT. YELLOW YELLOW Clarity Urine CLEAR CLEAR Specific [place] Urine 1.010 1.005-1.025 pH Urine 6.0 5.0-9.0 [...] #/LPF Performing Lab: see note ML - [facility] LB CBC AUTO DIFF Reviewed date:12/01/2024 01:18:05 PM Interpretation: Performing Lab: Notes/Report: The , White Blood Count 9.0 4.0-11.0 10 [...] Performing Lab: see note ML - [facility] LB PROF CHEM 8 (BAS METB) Reviewed date:12/01/2024 01:18:05 PM Interpretation: Performing Lab: Notes/Report: The , Sodium 143 136-145 mmol/L Potassium 4.6 [...] Performing Lab: see note ML - [facility] LB Troponin I High Sensitivity Reviewed date:12/01/2024 01:18:05 PM Interpretation: Performing Lab: Notes/Report: The , Troponin I High Sensitivity 17.3 4.0-76.1 pg/mL CUT-OFF POINTS HAVE BEEN ESTABLISHED BASED ON THE FOURTH UNIVERSAL DEFINITION OF MYOCARDIAL INFARCTION. THE UPPER REFERENCE LIMIT (URL) OF TROPONIN, DEFINED THE 99TH PERCENTILE OF cTnI DISTRIBUTION IN A REFERENCE POPULATION, HAS BEEN CONFIRMED THE DECISION THRESHOLD FOR [place] DIAGNOSIS. 99TH PERCENTILE = 76.2 PG/ML NOTE: HIGH-SENSITIVITY TROPONIN ASSAY IS NOT INTENDED TO BE USED IN ISOLATION BUT SHOULD BE INTERPRETED IN CONJUNCTION WITH OTHER DIAGNOSTIC AND CLINICAL INFORMATION. Performing Lab: see note ML - [facility] LB ECG 12 lead Reviewed date:12/01/2024 01:18:05 PM Interpretation: Performing Lab: Notes/Report: Source Facility: [address] [address] [place] [address] Electrocardiograph Report Signed Patient: JEB RIDDLE MR#: [id number] : 1950 Acct:[id number] Age/Sex: 74 / M ADM Date: 11/30/24 Loc: ER Attending Dr: Ordering Physician: Jose Alberto Worley M.D. 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 Measurements Intervals [place] Rate: 108 P: 69 NC: 166 QRS: 63 QRSD: 90 T: 80 QT: 340 QTc: 403 Interpretive Statements 1120 Sinus tachycardia Otherwise normal ECG Compared to ECG 11/25/2024 15:01:12 No significant changes Electronically Signed On 11-30-2024 11:55:03 EDT by JESSICA FORRESTER M.D. Dictated By: JESSICA FORRESTER Signed By: 11/30/24 1155 DD/ 0712 TD/TT: Wrapping Machine Helper: [place] [address] Electrocardiograph Report Signed Patient: JEB RIDDLE MR#: [id number] : 1950 Acct:[id number] Age/Sex: 74 / M ADM Date: 11/30/24 Loc: ER Attending Dr: Ordering Physician: Jose Alberto Worley M.D. Date of Service: 11/30/24 Procedure(s): ECG 12 lead Accession Number(s): [id number] cc: The Test Date: 2024-11-30 Pat Name: JEB RIDDLE Department: 54 Room: - Gender: Male Medicare Sales Representative: : 1950 Requ ested By: 1030 Order Number: [id number] Reading MD: JESSICA FORRESTER M.D. Measurements Intervals [place] Rate: 108 P: 69 NC: 166 QRS: 63 QRSD: 90 T: 80 QT: 340 QTc: 403 Interpretive Statements 1120 Sinus tachycardia Otherwise normal ECG Compared to ECG 11/25/2024 15:01:12 No significant changes Electronically Johana d On 11-30-2024 11:55:03 EDT by JESSICA FORRESTER M.D. Dictated By: JESSICA FORRESTER Signed By: 11/30/24 1155 DD/ 0712 TD/TT: Wrapping Machine Helper: TSH W/ REFLEX FT4 Reviewed date:11/25/2024 06:16:15 PM Interpretation: Performing Lab: Notes/Report: The , TSH W/ REFLEX FT4 2.290 0.358-3.740 uIU/mL Performing Lab: see note ML - [facility] LB Troponin I High Sensitivity Reviewed date:11/25/2024 06:16:15 PM Interpretation: Performing Lab: Notes/Report: The , Troponin I High Sensitivity 10.0 4.0-76.1 pg/mL CUT-OFF POINTS HAVE BEEN ESTABLISHED BASED ON THE FOURTH UNIVERSAL DEFINITION OF MYOCARDIAL INFARCTION. THE UPPER REFERENCE LIMIT (URL) OF TROPONIN, DEFINED THE 99TH PERCENTILE OF cTnI DISTRIBUTION IN A REFERENCE POPULATION, HAS BEEN CONFIRMED THE DECISION THRESHOLD FOR [place] DIAGNOSIS. 99TH PERCENTILE = 76.2 PG/ML NOTE: HIGH-SENSITIVITY TROPONIN ASSAY IS NOT INTENDED TO BE USED IN ISOLATION BUT SHOULD BE INTERPRETED IN CONJUNCTION WITH OTHER DIAGNOSTIC AND CLINICAL INFORMATION. Performing Lab: see note ML - [facility] LB FREE T3 Reviewed date:01/16/2025 09:56:39 PM Interpretation: Performing Lab: Notes/Report: The , Free T3 2.16 2.18-3.98 pg/mL Performing Lab: see note ML - [facility] LB PROF 14(COMP METB) Reviewed date:01/16/2025 09:56:39 PM Interpretation: Performing Lab: Notes/Report: The , Sodium 140 136-145 mmol/L Potassium 5.7 [...] 1.2 Performing Lab: see note ML - [facility] LB T4 Reviewed date:01/16/2025 09:56:39 PM Interpretation: Performing Lab: Notes/Report: The , T4 Thyroxine 5.50 4.50-12.10 ug/dL Performing Lab: see note ML - [facility] LB TSH Reviewed date:01/16/2025 09:56:39 PM Interpretation: Performing Lab: Notes/Report: The , Thyroid Stimulating Hormone 2.058 0.358-3.740 uIU/mL Performing Lab: see note ML - [facility] LB PROF 14(COMP METB) Reviewed date:11/25/2024 06:16:15 PM Interpretation: Performing Lab: Notes/Report: The , Sodium 139 136-145 mmol/L Potassium 4.4 [...] Performing Lab: see note ML - [facility] LB MAGNESIUM Reviewed date:11/25/2024 06:16:15 PM Interpretation: Performing Lab: Notes/Report: The , Magnesium 1.3 1.8-2.4 mg/dL Performing Lab: see note ML - [facility] LB LIPASE Reviewed date:11/25/2024 06:16:15 PM Interpretation: Performing Lab: Notes/Report: The , Lipase 31.0 16.0-77.0 U/L Performing Lab: see note ML - [facility] LB CARDIAC JEB ADMIT Reviewed date:11/25/2024 04:13:36 PM Interpretation: Performing Lab: Notes/Report: The , Creatine Kinase 76 39-308 U/L Creatine Kinase MB 1.64 <=3.60 ng/mL Myoglobin 79 16-96 ng/mL Troponin I High Sensitivity 11.9 4.0-76.1 pg/mL CUT-OFF POINTS HAVE BEEN ESTABLISHED BASED ON THE FOURTH UNIVERSAL DEFINITION OF MYOCARDIAL INFARCTION. THE UPPER REFERENCE LIMIT (URL) OF TROPONIN, DEFINED THE 99TH PERCENTILE OF cTnI DISTRIBUTION IN A REFERENCE POPULATION, HAS BEEN CONFIRMED THE DECISION THRESHOLD FOR [place] DIAGNOSIS. 99TH PERCENTILE = 76.2 PG/ML NOTE: HIGH-SENSITIVITY TROPONIN ASSAY IS NOT INTENDED TO BE USED IN ISOLATION BUT SHOULD BE INTERPRETED IN CONJUNCTION WITH OTHER DIAGNOSTIC AND CLINICAL INFORMATION. Performing Lab: see note ML - [facility] LB BNP Reviewed date:11/25/2024 04:13:36 PM Interpretation: Performing Lab: Notes/Report: The , NT Pro B Type Natriuretic Pept 579.0 <=1800.0 pg/mL Performing Lab: see note ML - [facility] LB ECG 12 lead Reviewed date:11/14/2024 07:57:19 PM Interpretation: Performing Lab: Notes/Report: Source Facility: [address] [address] [place] [address] Electrocardiograph Report Signed Patient: JEB RIDDLE MR#: [id number] : 1950 Acct:[id number] Age/Sex: 74 / M ADM Date: 11/14/24 Loc: ER Attending Dr: Ordering Physician: Shelby Haney Date of Service: 11/14/24 Procedure(s): ECG 12 lead Accession Number(s): [id number] cc: The Test Date: 2024-11-14 Pat Name: JEB RIDDLE Department: Room: - Gender: Male Medicare Sales Representative: : 1950 Requested By: 1854 Order Number: [id number] Reading MD: JESSICA FORRESTER M.D. Measurements Intervals [place] Rate: 76 P: 44 NC: 164 QRS: 59 QRSD: 92 T: 79 QT: 382 QTc: 412 Interpretive Statements 1100 Sinus rhythm 1102 Sinus arrhythmia 9110 normal ECG Compared to ECG 11/02/2024 10:11:13 No significant changes Electronically Signed On 11-14-2024 17:30:02 EDT by JESSICA FORRESTER M.D. Dictated By: JESSICA FORRESTER Signed By: 11/14/24 1730 DD/ 1029 TD/TT: Wrapping Machine Helper: [place] [address] Electrocardiograph Report Signed Patient: JEB RIDDLE MR#: [id number] : 1950 Acct:[id number] Age/Sex: 74 / M ADM Date: 11/14/24 Loc: ER Attending Dr: Ordering Physician: Shelby Haney Date of Service: 11/14/24 Procedure(s): ECG 12 lead Accession Number(s): [id number] cc: The Test Date: 2024-11-14 Pat Name: JEB RIDDLE Department: 54 Room: - Gender: Male Medicare Sales Representative: : 1950 Requ ested By: 1854 Order Number: [id number] Reading MD: JESSICA FORRESTER M.D. Measurements Intervals [place] Rate: 76 P: 44 NC: 164 QRS: 59 QRSD: 92 T: 79 QT: 382 QTc: 412 Interpretive Statements 1100 Sinus rhythm 1102 Sinus arrhythmia 9110 normal ECG Compared to ECG 11/02/2024 10:11:13 No significant changes Electronically Johana d On 11-14-2024 17:30:02 EDT by JESSICA FORRESTER M.D. Dictated By: JESSICA FORRESTER Signed By: 11/14/24 1730 DD/ 1029 TD/TT: Wrapping Machine Helper: CBC AUTO DIFF Reviewed date:11/14/2024 07:57:19 PM Interpretation: Performing Lab: Notes/Report: The , White Blood Count 5.9 4.0-11.0 10 [...] 3/uL Performing Lab: see note ML - [facility] ECG 12 lead Reviewed date:11/03/2024 11:57:49 AM Interpretation: Performing Lab: Notes/Report: Source Facility: [place] [address] Electrocardiograph Report Signed Patient: JEB RIDDLE MR#: [id number] : 1950 Acct:[id number] Age/Sex: 74 / M ADM Date: 11/02/24 Loc: ER Attending Dr: Ordering Physician: Shelby Haney Date of Service: 11/02/24 Procedure(s): ECG 12 lead Accession Number(s): [id number] cc: [facility] Test Date: 2024-11-02 Pat Name: JEB RIDDLE Department: Room: - Gender: Male Medicare Sales Representative: : 1950 Requested By: RODRIGUEZ GODWIN Order Number: [id number] Reading MD: JESSICA FORRESTER M.D. Measurements Intervals [place] Rate: 66 P: 44 NC: 162 QRS: 64 QRSD: 92 T: 34 QT: 394 QTc: 408 Interpretive Statements 1100 Sinus rhythm 1102 Sinus arrhythmia 9110 normal ECG Compared to ECG 09/03/2024 04:35:52 No significant changes Electronically Signed On 11-02-2024 17:39:15 EDT by JESSICA FORRESTER M.D. Dictated By: JESSICA FORRESTER Signed By: 11/02/24 1739 DD/ 1011 TD/TT: Wrapping Machine Helper: [place] [address] Electrocardiograph Report Signed Patient: JEB RIDDLE MR#: [id number] : 1950 Acct:[id number] Age/Sex: 74 / M ADM Date: 11/02/24 Loc: ER Attending Dr: Ordering Physician: Shelby Haney Date of Service: 11/02/24 Procedure(s): ECG 12 lead Accession Number(s): [id number] cc: The Test Date: 2024-11-02 Pat Name: JEB RIDDLE Department: 54 Room: - Gender: Male Medicare Sales Representative: : 1950 Requested By: RODRIGUEZ GODWIN Order Number: [id number] Reading MD: JESSICA FORRESTER M.D. Measurements Intervals [place] Rate: 66 P: 44 NC: 162 QRS: 64 QRSD: 92 T: 34 QT: 394 QTc: 408 Interpretive Statements 1100 Sinus rhythm 1102 Sinus arrhythmia 9110 normal ECG Compared to ECG 09/03/2024 04:35:52 No significant changes Electronically Johana d On 11-02-2024 17:39:15 EDT by JESSICA FORRESTER M.D. Dictated By: JESSICA FORRESTER Signed By: 11/02/24 1739 DD/ 1011 TD/TT: Wrapping Machine Helper: Troponin I High Sensitivity Reviewed date:11/03/2024 11:57:49 AM Interpretation: Performing Lab: Notes/Report: The , Troponin I High Sensitivity 11.4 4.0-76.1 pg/mL CUT-OFF POINTS HAVE BEEN ESTABLISHED BASED ON THE FOURTH UNIVERSAL DEFINITION OF MYOCARDIAL INFARCTION. THE UPPER REFERENCE LIMIT (URL) OF TROPONIN, DEFINED THE 99TH PERCENTILE OF cTnI DISTRIBUTION IN A REFERENCE POPULATION, HAS BEEN CONFIRMED THE DECISION THRESHOLD FOR [place] DIAGNOSIS. 99TH PERCENTILE = 76.2 PG/ML NOTE: HIGH-SENSITIVITY TROPONIN ASSAY IS NOT INTENDED TO BE USED IN ISOLATION BUT SHOULD BE INTERPRETED IN CONJUNCTION WITH OTHER DIAGNOSTIC AND CLINICAL INFORMATION. Performing Lab: see note ML - [facility] LB Prothrombin Time INR Reviewed date:11/03/2024 11:57:49 AM Interpretation: Performing Lab: Notes/Report: The , Prothrombin Time 11.4 9.0-11.6 sec INR 1.08 DESIRED INR: 2.0-3.0 CONDITIONS NOT LISTED BELOW 2.5-3.5 FOR PROSTHETIC HEART VALVE REPLACEMENT 2.5-3.5 RECURRENT THROMBOSIS Performing Lab: see note ML - [facility] LB URINE MICROSCOPIC ONLY Reviewed date:11/03/2024 11:57:49 AM Interpretation: Performing Lab: Notes/Report: The , WBC Urine 0-2 NONE SEEN #/HPF RBC Urine 2-5 0-2 #/HPF Bacteria Urine TRACE NONE SEEN #/HPF Mucus Urine NONE SEEN NONE SEEN Squamous Epithelial Cell Urine FEW NONE/RARE #/LPF Crystals Seen? None Seen None Seen #/HPF Cast Seen? SEEN NONE SEEN #/LPF Hyaline Casts Urine RARE Urine Culture Indicated NO Performing Lab: see note ML - [facility] LB UA (CLEAN or CATCH) FIELD IRRIGATION WORKER or M ICRO IF IND. Reviewed date:11/03/2024 11:57:49 AM Interpretation: Performing Lab: Notes/Report: The , Color Urine LT. YELLOW YELLOW Clarity Urine CLEAR CLEAR Specific [place] Urine 1.025 1.005-1.025 pH Urine 5.5 5.0-9.0 Protein Urine NEGATIVE NEG/TRACE mg/dL Glucose Urine UA NEGATIVE NEGATIVE mg/dL Bilirubin Urine NEGATIVE NEGATIVE Ketones Urine NEGATIVE NEGATIVE mg/dL Blood Urine TRACE-I NEGATIVE Nitrite Urine NEGATIVE NEGATIVE Urobilinogen Urine 0.2 0.2-1.0 EU/dL Leukocyte Esterase Urine TRACE NEGATIVE Urine Microscopic Indicated YES Performing Lab: see note ML - [facility] LB PROF 14(COMP METB) Reviewed date:11/03/2024 11:57:49 AM Interpretation: Performing Lab: Notes/Report: The , Sodium 139 136-145 mmol/L Potassium 5.1 [...] 1.1 Performing Lab: see note ML - [facility] LB MAGNESIUM Reviewed date:11/03/2024 11:57:49 AM Interpretation: Performing Lab: Notes/Report: [facility] , Magnesium 1.3 1.8-2.4 mg/dL Performing Lab: see note ML - [facility] LB Aerobic Culture Reviewed date:10/29/2024 08:25:16 PM [...] Rifampin S F Tetracycline Tetracycline S F Trimethoprim/Sulfamet hoxazole Trimethoprim/Sulfamet hoxazole S F Vancomycin Vancomycin S F Clindamycin [...] Rifampin S F Tetracycline Tetracycline S F Trimethoprim/Sulfamet hoxazole Trimethoprim/Sulfamet hoxazole S F Vancomycin Vancomycin S F Clindamycin [...] Rifampin S F Tetracycline Tetracycline S F Trimethoprim/Sulfamet hoxazole Trimethoprim/Sulfamet hoxazole S F Vancomycin Vancomycin S F Clindamycin [...] Rifampin S F Tetracycline Tetracycline S F Trimethoprim/Sulfamet hoxazole Trimethoprim/Sulfamet hoxazole S F Vancomycin Vancomycin S F Clindamycin Clindamycin R F Aerobic Culture Organism: Giorgi Pardo Staph Aureus : Aerobic Culture Organism: Staphylococcus aureus : O:MRSA Isolated O:STAAUR Isolated Organism: 2.1 Antibiotic Interpretation INDIRA Status Ciprofloxacin Ciprofloxacin R F Erythromycin Erythromycin R F Gentamicin Gentamicin S F Levofloxacin Levofloxacin R F Linezolid Linezolid S F Oxacillin Oxacillin R F Penicillin Penicillin R F Rifampin Rifampin S F Tetracycline Tetracycline S F Trimethoprim/Sulfamet hoxazole Trimethoprim/Sulfamet hoxazole S F Vancomycin Vancomycin S F Clindamycin [...] Rifampin S F Tetracycline Tetracycline S F Trimethoprim/Sulfamet hoxazole Trimethoprim/Sulfamet hoxazole S F Vancomycin Vancomycin S F Clindamycin [...] Rifampin S F Tetracycline Tetracycline S F Trimethoprim/Sulfamet hoxazole Trimethoprim/Sulfamet hoxazole S F Vancomycin Vancomycin S F Clindamycin Clindamycin R F Aerobic Culture Based on resistance to oxacillin this isolate would be Aerobic Culture Organism: Staphylococcus aureus : O:MRSA Isolated O:[facility] Isolated Organism: 2.1 Antibiotic Interpretation INDIRA Status Ciprofloxacin Ciprofloxacin R F Erythromycin Erythromycin R F Gentamicin Gentamicin S F Levofloxacin Levofloxacin R F Linezolid Linezolid S F Oxacillin Oxacillin R F Penicillin Penicillin R F Rifampin Rifampin S F Tetracycline Tetracycline S F Trimethoprim/Sulfamet hoxazole Trimethoprim/Sulfamet hoxazole S F Vancomycin Vancomycin S F Clindamycin Clindamycin R F Aerobic Culture resistant to all currently available beta-lactam Aerobic Culture Organism: Staphylococcus aureus : O:MRSA Isolated O:[facility] Isolated Organism: 2.1 Antibiotic Interpretation INDIRA Status Ciprofloxacin Ciprofloxacin R F Erythromycin Erythromycin R F Gentamicin Gentamicin S F Levofloxacin Levofloxacin R F Linezolid Linezolid S F Oxacillin Oxacillin R F Penicillin Penicillin R F Rifampin Rifampin S F Tetracycline Tetracycline S F Trimethoprim/Sulfamet hoxazole Trimethoprim/Sulfamet hoxazole S F Vancomycin Vancomycin S F Clindamycin Clindamycin R F Aerobic Culture antimicrobial agents , with the exception of the newer Aerobic Culture Organism: Staphylococcus aureus : O:MRSA Isolated O:[facility] Isolated Organism: 2.1 Antibiotic Interpretation INDIRA Status Ciprofloxacin Ciprofloxacin R F Erythromycin Erythromycin R F Gentamicin Gentamicin S F Levofloxacin Levofloxacin R F Linezolid Linezolid S F Oxacillin Oxacillin R F Penicillin Penicillin R F Rifampin Rifampin S F Tetracycline Tetracycline S F Trimethoprim/Sulfamet hoxazole Trimethoprim/Sulfamet hoxazole S F Vancomycin Vancomycin S F Clindamycin Clindamycin R F Aerobic Culture cephalosporins with anti-MRSA activity, such as Aerobic Culture Organism: Staphylococcus aureus : O:MRSA Isolated O:[facility] Isolated Organism: 2.1 Antibiotic Interpretation INDIRA Status Ciprofloxacin Ciprofloxacin R F Erythromycin Erythromycin R F Gentamicin Gentamicin S F Levofloxacin Levofloxacin R F Linezolid Linezolid S F Oxacillin Oxacillin R F Penicillin Penicillin R F Rifampin Rifampin S F Tetracycline Tetracycline S F Trimethoprim/Sulfamet hoxazole Trimethoprim/Sulfamet hoxazole S F Vancomycin Vancomycin S F Clindamycin [...] Rifampin S F Tetracycline Tetracycline S F Trimethoprim/Sulfamet hoxazole Trimethoprim/Sulfamet hoxazole S F Vancomycin Vancomycin S F Clindamycin [...] Rifampin S F Tetracycline Tetracycline S F Trimethoprim/Sulfamet hoxazole Trimethoprim/Sulfamet hoxazole S F Vancomycin Vancomycin S F Clindamycin [...] Rifampin S F Tetracycline Tetracycline S F Trimethoprim/Sulfamet hoxazole Trimethoprim/Sulfamet hoxazole S F Vancomycin Vancomycin S F Clindamycin [...] Rifampin S F Tetracycline Tetracycline S F Trimethoprim/Sulfamet hoxazole Trimethoprim/Sulfamet hoxazole S F Vancomycin Vancomycin S F Clindamycin [...] Rifampin S F Tetracycline Tetracycline S F Trimethoprim/Sulfamet hoxazole Trimethoprim/Sulfamet hoxazole S F Vancomycin Vancomycin S F Clindamycin Clindamycin R F Aerobic Culture Performed at: [facility] Aerobic Culture Organism: Staphylococcus aureus : O:MRSA Isolated O:[facility] Isolated Organism: 2.1 Antibiotic Interpretation INDIRA Status Ciprofloxacin Ciprofloxacin R F Erythromycin Erythromycin R F Gentamicin Gentamicin S F Levofloxacin Levofloxacin R F Linezolid Linezolid S F Oxacillin Oxacillin R F Penicillin Penicillin R F Rifampin Rifampin S F Tetracycline Tetracycline S F Trimethoprim/Sulfamet hoxazole Trimethoprim/Sulfamet hoxazole S F Vancomycin Vancomycin S F Clindamycin Clindamycin R F Aerobic Culture [address] [place], [place] [id number] Aerobic Culture Organism: Staphylococcus aureus : O:MRSA Isolated O:[facility] Isolated Organism: 2.1 Antibiotic Interpretation INDIRA Status Ciprofloxacin Ciprofloxacin R F Erythromycin Erythromycin R F Gentamicin Gentamicin S F Levofloxacin Levofloxacin R F Linezolid Linezolid S F Oxacillin Oxacillin R F Penicillin Penicillin R F Rifampin Rifampin S F Tetracycline Tetracycline S F Trimethoprim/Sulfamet hoxazole Trimethoprim/Sulfamet hoxazole S F Vancomycin Vancomycin S F Clindamycin Clindamycin R F Aerobic Culture Employment Consultant: Heidi Renee PhD, Phone: [phone] Aerobic Culture Organism: Staphylococcus aureus : O:MRSA Isolated O:[facility] Isolated Organism: 2.1 Antibiotic Interpretation INDIRA Status Ciprofloxacin Ciprofloxacin R F Erythromycin Erythromycin R F Gentamicin Gentamicin S F Levofloxacin Levofloxacin R F Linezolid Linezolid S F Oxacillin Oxacillin R F Penicillin Penicillin R F Rifampin Rifampin S F Tetracycline Tetracycline S F Trimethoprim/Sulfamet hoxazole Trimethoprim/Sulfamet hoxazole S F Vancomycin Vancomycin S F Clindamycin [...] Rifampin S F Tetracycline Tetracycline S F Trimethoprim/Sulfamet hoxazole Trimethoprim/Sulfamet hoxazole S F Vancomycin Vancomycin S F Clindamycin Clindamycin R F Aerobic Culture See Below For Report Aerobic Culture Organism: Staphylococcus aureus : O:MRSA Isolated O:[facility] Isolated Organism: 2.1 Antibiotic Interpretation INDIRA Status Ciprofloxacin Ciprofloxacin R F Erythromycin Erythromycin R F Gentamicin Gentamicin S F Levofloxacin Levofloxacin R F Linezolid Linezolid S F Oxacillin Oxacillin R F Penicillin Penicillin R F Rifampin Rifampin S F Tetracycline Tetracycline S F Trimethoprim/Sulfamet hoxazole Trimethoprim/Sulfamet hoxazole S F Vancomycin Vancomycin S F Clindamycin Clindamycin R F Aerobic Culture See Below For Report Aerobic Culture Organism: Staphylococcus aureus : O:MRSA Isolated O:[facility] Isolated Organism: 2.1 Antibiotic Interpretation INDIRA Status Ciprofloxacin Ciprofloxacin R F Erythromycin Erythromycin R F Gentamicin Gentamicin S F Levofloxacin Levofloxacin R F Linezolid Linezolid S F Oxacillin Oxacillin R F Penicillin Penicillin R F Rifampin Rifampin S F Tetracycline Tetracycline S F Trimethoprim/Sulfamet hoxazole Trimethoprim/Sulfamet hoxazole S F Vancomycin Vancomycin S F Clindamycin Clindamycin R F Aerobic Culture See Below For Report Aerobic Culture Organism: Staphylococcus aureus : O:MRSA Isolated O:[facility] Isolated Organism: 2.1 Antibiotic Interpretation INDIRA Status Ciprofloxacin Ciprofloxacin R F Erythromycin Erythromycin R F Gentamicin Gentamicin S F Levofloxacin Levofloxacin R F Linezolid Linezolid S F Oxacillin Oxacillin R F Penicillin Penicillin R F Rifampin Rifampin S F Tetracycline Tetracycline S F Trimethoprim/Sulfamet hoxazole Trimethoprim/Sulfamet hoxazole S F Vancomycin Vancomycin S F Clindamycin Clindamycin R F Aerobic Culture See Below For Report Aerobic Culture Organism: Staphylococcus aureus : O:MRSA Isolated O:[facility] Isolated Organism: 2.1 Antibiotic Interpretation INDIRA Status Ciprofloxacin Ciprofloxacin R F Erythromycin Erythromycin R F Gentamicin Gentamicin S F Levofloxacin Levofloxacin R F Linezolid Linezolid S F Oxacillin Oxacillin R F Penicillin Penicillin R F Rifampin Rifampin S F Tetracycline Tetracycline S F Trimethoprim/Sulfamet hoxazole Trimethoprim/Sulfamet hoxazole S F Vancomycin Vancomycin S F Clindamycin [...] Rifampin S F Tetracycline Tetracycline S F Trimethoprim/Sulfamet hoxazole Trimethoprim/Sulfamet hoxazole S F Vancomycin Vancomycin S F Clindamycin Clindamycin R F Aerobic Culture See Below For Report Aerobic Culture Organism: Staphylococcus aureus : O:MRSA Isolated O:[facility] Isolated Organism: 2.1 Antibiotic Interpretation INDIRA Status Ciprofloxacin Ciprofloxacin R F Erythromycin Erythromycin R F Gentamicin Gentamicin S F Levofloxacin Levofloxacin R F Linezolid Linezolid S F Oxacillin Oxacillin R F Penicillin Penicillin R F Rifampin Rifampin S F Tetracycline Tetracycline S F Trimethoprim/Sulfamet hoxazole Trimethoprim/Sulfamet hoxazole S F Vancomycin Vancomycin S F Clindamycin Clindamycin R F Aerobic Culture See Below For Report Aerobic Culture Organism: Staphylococcus aureus : O:MRSA Isolated O:[facility] Isolated Organism: 2.1 Antibiotic Interpretation INDIAR Status Ciprofloxacin Ciprofloxacin R F Erythromycin Erythromycin R F Gentamicin Gentamicin S F Levofloxacin Levofloxacin R F Linezolid Linezolid S F Oxacillin Oxacillin R F Penicillin Penicillin R F Rifampin Rifampin S F Tetracycline Tetracycline S F Trimethoprim/Sulfamet hoxazole Trimethoprim/Sulfamet hoxazole S F Vancomycin Vancomycin S F Clindamycin Clindamycin R F Aerobic Culture See Below For Report Aerobic Culture Organism: Staphylococcus aureus : O:MRSA Isolated O:[facility] Isolated Organism: 2.1 Antibiotic Interpretation INDIRA Status Ciprofloxacin Ciprofloxacin R F Erythromycin Erythromycin R F Gentamicin Gentamicin S F Levofloxacin Levofloxacin R F Linezolid Linezolid S F Oxacillin Oxacillin R F Penicillin Penicillin R F Rifampin Rifampin S F Tetracycline Tetracycline S F Trimethoprim/Sulfamet hoxazole Trimethoprim/Sulfamet hoxazole S F Vancomycin Vancomycin S F Clindamycin [...] Rifampin S F Tetracycline Tetracycline S F Trimethoprim/Sulfamet hoxazole Trimethoprim/Sulfamet hoxazole S F Vancomycin Vancomycin S F Clindamycin [...] Rifampin S F Tetracycline Tetracycline S F Trimethoprim/Sulfamet hoxazole Trimethoprim/Sulfamet hoxazole S F Vancomycin Vancomycin S F Clindamycin [...] Rifampin S F Tetracycline Tetracycline S F Trimethoprim/Sulfamet hoxazole Trimethoprim/Sulfamet hoxazole S F Vancomycin Vancomycin S F Clindamycin Clindamycin R F Aerobic Culture See Below For Report Aerobic Culture Organism: Staphylococcus aureus : O:MRSA Isolated O:[facility] Isolated Organism: 2.1 Antibiotic Interpretation INDIRA Status Ciprofloxacin Ciprofloxacin R F Erythromycin Erythromycin R F Gentamicin Gentamicin S F Levofloxacin Levofloxacin R F Linezolid Linezolid S F Oxacillin Oxacillin R F Penicillin Penicillin R F Rifampin Rifampin S F Tetracycline Tetracycline S F Trimethoprim/Sulfamet hoxazole Trimethoprim/Sulfamet hoxazole S F Vancomycin Vancomycin S F Clindamycin Clindamycin R F Performing Lab: see note LC - [facility] LB SEE REPORT - Car Inspection And Repair Manager Id information not found for OBX-specific bee producer legend Anaerobic Culture Reviewed date:10/29/2024 08:25:16 [...] Interpretation INDIRA Status Aerobic Culture Performed at: [facility] Aerobic Culture Organism: Staphylococcus aureus : O:MRSA Isolated O:STAAUR Isolated Organism: 1.1 Antibiotic Interpretation INDIRA Status Aerobic Culture [address] [place], [place] [id number] Aerobic Culture Organism: Staphylococcus aureus : O:MRSA Isolated O:STAAUR Isolated Organism: 1.1 Antibiotic Interpretation INDIRA Status Aerobic Culture Employment Consultant: Heidi Renee PhD, Phone: [phone] Aerobic Culture Organism: Staphylococcus aureus : O:MRSA [...] Antibiotic Interpretation INDIRA Status Aerobic Culture Trimethoprim/Sulfame thoxa zole S F Aerobic Culture Organism: Staphylococcus aureus [...] LC - [facility] LB SEE REPORT - Car Inspection And Repair Manager Id information not found for 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-specific bee producer legend TSH Reviewed date:10/23/2024 03:58:06 PM Interpretation: Performing Lab: Notes/Report: [facility] , Thyroid Stimulating Hormone 3.214 0.358-3.740 uIU/mL Performing Lab: see note ML - [facility] LB T4 Reviewed date:10/23/2024 03:58:06 PM Interpretation: Performing Lab: Notes/Report: The , T4 Thyroxine 5.60 4.50-12.10 ug/dL Performing Lab: see note ML - [facility] LB PROF 14(COMP METB) Reviewed date:10/23/2024 03:58:06 PM Interpretation: Performing Lab: Notes/Report: The , Sodium 139 136-145 mmol/L Potassium 4.9 [...] Performing Lab: see note ML - [facility] FREE T3 Reviewed date:10/23/2024 03:58:06 PM Interpretation: Performing Lab: Notes/Report: The , Free T3 2.65 2.18-3.98 pg/mL Performing Lab: see note - [facility] LB MR head/brain wo con Reviewed date:09/15/2024 04:39:28 PM Interpretation: Performing Lab: Notes/Report: Source Facility: [place] [address] [place] [address] Magnetic Resonance Report Signed Patient: JEB RIDDLE MR#: [id number] : 1950 Acct:[id number] Age/Sex: 73 / M ADM Date: 09/14/24 Loc: CARD Attending Dr: Rodriguez Godwin M.D. Ordering Physician: Rodriguez Godwin M.D. Date of Service: 09/14/24 Procedure(s): MR head/brain wo con Accession Number(s): [id number] cc: Rodriguez Godwin M.D. [place] [address] Patient Name: JEB RIDDLE MRN: [id number] date: 1950 Sex: M Assigned Patient Location: CARD Current Patient Location: CARD Accession/Order Number: [id number] Exam Date: 09/14/2024 10:20 Report Date: 09/14/2024 17:27 At the request of: RODRIGUEZ GODWIN Procedure: MR head/brain wo con EXAM: [...] M.D. Signed By: 09/14/241728 DD/ 26 TD/TT: Wrapping Machine Helper: [place] [address] Magnetic Resonance Report Signed Patient: JEB RIDDLE MR#: [id number] : 1950 Acct:[id number] Age/Sex: 73 / M ADM Date: 09/14/24 Loc: CARD Attending Dr: Yasmin Godwin M.D. Ordering Physician: Rodriguez Godwin M.D. Date of Service: 09/14/24 Procedure(s): MR head/brain wo con Accession Number(s): [id number] cc: Rodriguez Godwin M.D. [place] [address] Patient Name: JEB RIDDLE MRN: [id number] date: 1950 Sex: M Assigned Patient Location: CARD Current Patient Loca tion: CARD Accession/Order Numb er: [id number] Exam Date: 09/14/2024 10:20 Report Date: 09/14/2024 17:27 At the request of: RODRIGUEZ GODWIN Procedure: MR head/b rain wo con EXAM: MR head/brain wo con [...] signal foci suggesting sequelae of small vessel isch emic change/leukoaraiosis. 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 M R/MR head/brain wo con Impression: Age-rela ava changes, without acute intracranial pathology.. Electronically authenticated by: MARIBEL RIDDLE Date: 09/14/2024 17:27 Dictated By: Maribel Riddle M.D. Signed By: 09/14/241728 DD/ 26 TD/TT: Wrapping Machine Helper: JAKE echeverria Reviewed date:09/04/2024 07:17:01 PM Interpretation: Performing Lab: Notes/Report: Source Facility: [place] [address] Cardiology Report Signed Patient: JEB RIDDLE MR#: [id number] : 1950 Acct:[id number] Age/Sex: 73 / M ADM Date: 08/31/24 Loc: MS 221-[address]: Rodriguez Godwin M.D. Ordering Physician: Rodriguez Godwin M.D. Date of Service: 09/03/24 Procedure(s): CA echo limited Accession Number(s): [id number] cc: Rodriguez Godwin M.D. Patient Name: JEB RIDDLE MR#: [id number] : 1950 Exam Date: 09/03/2024 Ordering Doctor: DR RODRIGUEZ GODWIN . ECHOCARDIOGRAM REPORT PROCEDURE: CA ECHO [...] FORRESTER Signed By: 09/04/241852 DD/ 52 TD/TT: Wrapping Machine Helper: [place] [address] Cardiology Report Signed Patient: JEB RIDDLE MR#: [id number] : 1950 Acct:[id number] Age/Sex: 73 / M ADM Date: 08/31/24 Loc: MS 221-[address]: Yasmin Godwin M.D. Ordering Physician: Rodriguez Godwin M.D. Date of Service: 09/03/24 Procedure(s): CA ech o limited Accession Number(s): [id number] cc: Rodriguez Godwin M.D. Patient Name: JEB RIDDLE MR#: [id number] : 1950 Exam Date: 09/03/2024 Ordering Doctor: DR RODRIGUEZ GODWIN . ECHOCARDIOGRAM REPORT PROCEDURE: CA ECHO [...] segmental wall motion abnormalities. LV EF: Visual estima tion of left ventricular ejection fraction is 65-70%. [...] Norm al thickness and mobility. PERICARDIUM: No evid ence of pericardial effusion. IVC: Within normal limits. [...] FORRESTER Signed By: 09/04/241852 DD/ 52 TD/TT: Wrapping Machine Helper: ECG 12 lead Reviewed date:09/05/2024 03:55:07 PM Interpretation: Performing Lab: Notes/Report: Source Facility: [place] [address] [place] [address] Electrocardiograph Report Signed Patient: JEB RIDDLE MR#: [id number] : 1950 Acct:[id number] Age/Sex: 73 / M ADM Date: 08/31/24 Loc: MS 221-[address]: Rodriguez Godwin M.D. Ordering Physician: Rodriguez Godwin M.D. Date of Service: 09/03/24 Procedure(s): ECG 12 lead Accession Number(s): [id number] cc: The Test Date: 2024-09-03 Pat Name: JEB RIDDLE Department: Room: [facility] Gender: Male Medicare Sales Representative: : 1950 Requested By: RODRIGUEZ GODWIN Order Number: [id number] Reading MD: EDER MCNAIR Measurements Intervals [place] Rate: 81 P: 75 NC: 178 QRS: 62 QRSD: 102 T: 75 [...] D.O. Signed By: 09/04/242048 DD/ 4 TD/TT: Wrapping Machine Helper: [place] [address] Electrocardiograph Report Signed Patient: JEB RIDDLE MR#: [id number] : 1950 Acct:[id number] Age/Sex: 73 / M ADM Date: 08/31/24 Loc: MS 221-[address]: Yasmin Godwin M.D. Ordering Physician: Rodriguez Godwin M.D. Date of Service: 09/03/24 Procedure(s): ECG 12 lead Accession Number(s): [id number] cc: The Test Date: 2024-09-03 Pat Name: JEB RIDDLE Department: 54 Room: [facility] Gender: Male Medicare Sales Representative: : 1950 Evelyn ested By: RODRIGUEZ GODWIN Order Number: [id number] Reading MD: EDER MCNAIR Measurements Intervals [place] Rate: 81 P: 75 NC: 178 QRS: 62 QRSD: 102 T: 75 [...] D.O. Signed By: 09/04/242048 DD/ 4 TD/TT: Wrapping Machine Helper: Troponin I High Sensitivity Reviewed date:09/03/2024 01:52:37 PM Interpretation: Performing Lab: Notes/Report: The , Troponin I High Sensitivity 189.9 4.0-76.1 pg/mL RESULTS CALLED TO MAURA PEREZ RN CUT-OFF POINTS HAVE BEEN ESTABLISHED BASED ON THE FOURTH UNIVERSAL DEFINITION OF MYOCARDIAL INFARCTION. THE UPPER REFERENCE LIMIT (URL) OF TROPONIN, DEFINED THE 99TH PERCENTILE OF cTnI DISTRIBUTION IN A REFERENCE POPULATION, HAS BEEN CONFIRMED THE DECISION THRESHOLD FOR [place] DIAGNOSIS. 99TH PERCENTILE = 76.2 PG/ML NOTE: HIGH-SENSITIVITY TROPONIN ASSAY IS NOT INTENDED TO BE USED IN ISOLATION BUT SHOULD BE INTERPRETED IN CONJUNCTION WITH OTHER DIAGNOSTIC AND CLINICAL INFORMATION. Performing Lab: see note ML - [facility] LB PROF CHEM 8 (BAS METB) Reviewed date:09/03/2024 01:52:37 PM Interpretation: Performing Lab: Notes/Report: The , Sodium 142 136-145 mmol/L Potassium 4.3 [...] Performing Lab: see note ML - [facility] LB CBC AUTO DIFF Reviewed date:09/03/2024 01:52:37 PM Interpretation: Performing Lab: Notes/Report: The , White Blood Count 6.9 4.0-11.0 10 [...] Performing Lab: see note ML - [facility] LB BNP Reviewed date:09/03/2024 01:52:37 PM Interpretation: Performing Lab: Notes/Report: The , NT Pro B Type Natriuretic Pept 978.0 <=900.0 pg/mL Performing Lab: see note ML - [facility] LB PTT HEPARIN MONITOR Reviewed date:09/02/2024 02:45:20 PM Interpretation: Performing Lab: Notes/Report: The , PTT Heparin Monitor 91.1 43.5-61.5 sec RESULTS CALLED TO Chen Cyr RN @BY Nicholas Amezquita PA at 0217 Performing Lab: see note ML - [facility] LB PTT HEPARIN MONITOR Reviewed date:09/02/2024 02:45:20 PM Interpretation: Performing Lab: Notes/Report: The , PTT Heparin Monitor 48.2 43.5-61.5 sec Performing Lab: see note ML - [facility] LB Troponin I High Sensitivity Reviewed date:09/02/2024 02:45:20 PM Interpretation: Performing Lab: Notes/Report: The , Troponin I High Sensitivity 559.3 4.0-76.1 pg/mL RESULTS CALLED TO EUGENIO CYR RN AT 1319 CUT-OFF POINTS HAVE BEEN ESTABLISHED BASED ON THE FOURTH UNIVERSAL DEFINITION OF MYOCARDIAL INFARCTION. THE UPPER REFERENCE LIMIT (URL) OF TROPONIN, DEFINED THE 99TH PERCENTILE OF cTnI DISTRIBUTION IN A REFERENCE POPULATION, HAS BEEN CONFIRMED THE DECISION THRESHOLD FOR [place] DIAGNOSIS. 99TH PERCENTILE = 76.2 PG/ML NOTE: HIGH-SENSITIVITY TROPONIN ASSAY IS NOT INTENDED TO BE USED IN ISOLATION BUT SHOULD BE INTERPRETED IN CONJUNCTION WITH OTHER DIAGNOSTIC AND CLINICAL INFORMATION. Performing Lab: see note ML - [facility] LB Troponin I High Sensitivity Reviewed date:09/02/2024 02:45:20 PM Interpretation: Performing Lab: Notes/Report: The , Troponin I High Sensitivity 438.0 4.0-76.1 pg/mL RESULTS CALLED TO ELVIA ALLRED RN AT 1014 CUT-OFF POINTS HAVE BEEN ESTABLISHED BASED ON THE FOURTH UNIVERSAL DEFINITION OF MYOCARDIAL INFARCTION. THE UPPER REFERENCE LIMIT (URL) OF TROPONIN, DEFINED THE 99TH PERCENTILE OF cTnI DISTRIBUTION IN A REFERENCE POPULATION, HAS BEEN CONFIRMED THE DECISION THRESHOLD FOR [place] DIAGNOSIS. 99TH PERCENTILE = 76.2 PG/ML NOTE: HIGH-SENSITIVITY TROPONIN ASSAY IS NOT INTENDED TO BE USED IN ISOLATION BUT SHOULD BE INTERPRETED IN CONJUNCTION WITH OTHER DIAGNOSTIC AND CLINICAL INFORMATION. Performing Lab: see note ML - [facility] LB CT stroke head/brain wo con Reviewed date:09/02/2024 02:45:20 PM Interpretation: Performing Lab: Notes/Report: Source Facility: [place] [address] [place] [address] CT Scan Report Signed Patient: JEB RIDDLE MR#: [id number] : 1950 Acct:[id number] Age/Sex: 73 / M ADM Date: 08/31/24 Loc: ICU 270-[address]: Rodriguez Godwin M.D. Ordering Physician: Namita Hendrix NP Date of Service: 09/01/24 Procedure(s): CT stroke head/brain wo con Accession Number(s): [id number] cc: Rodriguez Godwin M.D. [place] [address] Patient Name: JEB RIDDLE MRN: [id number] date: 1950 Sex: M Assigned Patient Location: ICU Current Patient Location: ICU Accession/Order Number: [id number] Exam Date: 09/01/2024 01:00 Report Date: 09/01/2024 [...] Signed By: 09/01/24 0130 DD/ 0127 TD/TT: Wrapping Machine Helper: [place] [address] CT Scan Report Signed Patient: JEB RIDDLE MR#: [id number] : 1950 Acct:[id number] Age/Sex: 73 / M ADM Date: 08/31/24 Loc: ICU 270-[address]: Yasmin Godwin M.D. Ordering Physician: Namita Hendrix NP Date of Service: 09/01/24 Procedure(s): CT str nadja head/brain wo con Accession Number(s): [id number] cc: Rodriguez Godwin M.D. [address] [address] Patient Name: JEB RIDDLE MRN: [id number] date: 1950 Sex: M Assigned Patient Location: ICU Current Patient Loca tion: ICU Accession/Order Numb er: [id number] Exam Date: 09/01/2024 01:00 Report Date: 09/01/2024 [...] extra-axial hemorrhage. No mass effect. No midline s hift or herniation. Patchy and confluent low-density seen in the right ventric ular and subcortical white matter without mass effect. VENTRICLES/EXTRA-AXI AL SPACES: Normal for patient's age. SINUSES/MASTOIDS: Th e visualized sinuses are clear although the paranasal sinuses are not completely included. Mastoids and middle ears are clear. MSK: No displaced or depressed calvarial fracture. OTHER: No hyperdense intraluminal thrombus. Vascular calcifications are present. C T/CT stroke head/brain wo con IMPRESSION: 1. No acute intracra nial abnormality. No hemorrhage or mass effect. 2. [...] Signed By: 09/01/24 0130 DD/ 0127 TD/TT: Wrapping Machine Helper: PROF OLGA May ([facility]) Reviewed date:09/02/2024 02:45:21 PM Interpretation: Performing Lab: Notes/Report: The , Sodium 143 136-145 mmol/L Potassium 4.5 [...] Performing Lab: see note ML - [facility] LB CT abdomen pelvis w con Reviewed date:08/31/2024 09:11:51 AM Interpretation: Performing Lab: Notes/Report: Source Facility: -[address] [place] [address] [address] [address] Scan Report Signed Patient: JEB RIDDLE MR#: [id number] : 1950 Acct:[id number] Age/Sex: 73 / M ADM Date: 08/31/24 Loc: ER Attending Dr: Ordering Physician: Warner Maradiaga Date of Service: 08/31/24 Procedure(s): CT abdomen pelvis w con Accession Number(s): [id number] cc: Rodriguez Godwin M.D. [address] [address] Patient Name: JEB RIDDLE MRN: [id number] date: 1950 Sex: M Assigned Patient Location: ER Current Patient Location: ER Accession/Order Number: [id number] Exam Date: 08/31/2024 03:25 Report Date: 08/31/2024 [...] Signed By: 08/31/24 0409 DD/ 0406 TD/TT: Wrapping Machine Helper: [place] [address] CT Scan Report Signed Patient: JEB RIDDLE MR#: [id number] : 1950 Acct:[id number] Age/Sex: 73 / M ADM Date: 08/31/24 Loc: ER Attending Dr: Ordering Physician: Warner Maradiaga Date of Service: 08/31/24 Procedure(s): CT abd omen pelvis w con Accession Number(s): [id number] cc: Rodriguez Godwin M.D. [place] [id number] Patient Name: JEB RIDDLE MRN: [id number] date: 1950 Sex: M Assigned Patient Location: ER Current Patient Loca tion: ER Accession/Order Numb er: [id number] Exam Date: 08/31/2024 03:25 Report Date: 08/31/2024 04:06 At the request of: WARNER MARADIAGA Procedure: CT abdome n pelvis w con EXAM: CT angio chest , CT abdomen pelvis w con , 08/31/2024 HISTORY: chest pain abdominal pain. COMPARISON: CTA [facility] t, O805 2023. TECHNIQUE: IV contra [...] the ascending aorta. Mild thoracic aortic calcifications. Othe rwise unremarkable thoracic aorta and arch vessels. No dissection or aneurysm. Unremarkable thyroid and esophagus. Negative for thoracic adenopathy. Mild pulmonary emphy sema with mild anterior bibasilar linear fibrotic scarring. No acute pulmonary abnormality. No acute osseous fin dings in the chest. CTA ABDOMEN: Fairly prominent aortic calcifications without aneurysm or dissection. Unremark able celiac axis, superior mesenteric artery, left renal artery and inferior mesenteric artery. Right renal artery and accessory right renal artery are dimitris ewhat diminutive but otherwise unremarkable on image 108. [...] of the left kidney. Left renal cysts michael sure up to 3.6 cm in the posterior lower pole. The left kidney is otherwise unremarkable. There are gas and fluid-filled distended small bowel loops extending into the lateral right upper pelvis where a transition point is seen on images 156 through 158 of serie s 4. The small bowel becomes decompressed with wall thickening at this l evel, extending to the neoterminal ileum. There are prominent aortic calcifications without aneurysm. The IVC appears normal. Surgical sca rring is seen in the subcutaneous fat of the anterior abdominal wall. CTA PELVIS: No acute vascular injury or active bleeding is seen. Fairly prominent atheroscle rotic calcifications are noted. There appears to be prior removal of the cecum with anastomosis near the ileocecal junction. Inflammatory changes are noted in the terminal ileum. There is scattered pancolonic diverticulosis, most prominent in the sigmoid. The prostate is enla rged. The urinary bladder is unremarkable. No free fluid, locul ated fluid, free air or soft tissue gas is seen in the abdomen or pelvis. There is fairly adva nced degenerative disc disease at L5-S1. No acute osseous abnormality or suspi cious bony lesion is seen. C T/CT abdomen pelvis w con IMPRESSION: 1. No [...] the abdomen or pelvis. 4. Prior cecal resec tion with anastomosis near the ileocecal junction. 5. Pancolonic diverticulosis. 6. Nonobstructing bilateral renal calculi. 7. Prostatomegaly. Additional nonemergent findings are present, as above. Electronically authenticated by: ALLI SULLIVAN Date: 08/31/2024 04:06 Dictated By: Alli Sullivan M.D. Signed By: 08/31/24 0409 DD/ 0406 TD/TT: Wrapping Machine Helper: CT angio chest Reviewed date:08/31/2024 09:11:51 AM Interpretation: Performing Lab: Notes/Report: Source Facility: [place] [address] CT Scan Report Signed Patient: JEB RIDDLE MR#: [id number] : 1950 Acct:[id number] Age/Sex: 73 / M ADM Date: 08/31/24 Loc: ER Attending Dr: Ordering Physician: Warner Maradiaga Date of Service: 08/31/24 Procedure(s): CT angio chest Accession Number(s): [id number] cc: Rodriguez Godwin M.D. [place] [address] Patient Name: JEB RIDDLE MRN: [id number] date: 1950 Sex: M Assigned Patient Location: ER Current Patient Location: ER Accession/Order Number: [id number] Exam Date: 08/31/2024 03:25 Report Date: 08/31/2024 [...] M.D. Signed By: 08/31/24408 DD/ 5 TD/TT: Wrapping Machine Helper: The [address] [address] [address] Scan Report Signed Patient: JEB RIDDLE MR#: [id number] : 1950 Acct:[id number] Age/Sex: 73 / M ADM Date: 08/31/24 Loc: ER Attending Dr: Ordering Physician: Warner Maradiaga Date of Service: 08/31/24 Procedure(s): CT ang io chest Accession Number(s): [id number] cc: Rodriguez Godwin M.D. [address] [address] Patient Name: JEB RIDDLE MRN: [facility]:[id number] date: 1950 Sex: M Assigned Patient Location: ER Current Patient Loca tion: ER Accession/Order Numb er: [id number] Exam Date: 08/31/2024 03:25 Report Date: 08/31/2024 [...] the ascending aorta. Mild thoracic aortic calcifications. Othe rwise unremarkable thoracic aorta and arch vessels. No dissection or aneurysm. Unremarkable thyroid and esophagus. Negative for thoracic adenopathy. Mild pulmonary emphy sema with mild anterior bibasilar linear fibrotic scarring. No acute pulmonary abnormality. No acute osseous fin dings in the chest. CTA ABDOMEN: Fairly prominent aortic calcifications without aneurysm or dissection. Unremark able celiac axis, superior mesenteric artery, left renal artery and inferior mesenteric artery. Right renal artery and accessory right renal artery are dimitris ewhat diminutive but otherwise unremarkable on image 108. [...] of the left kidney. Left renal cysts michael sure up to 3.6 cm in the posterior lower pole. The left kidney is otherwise unremarkable. There are gas and fluid-filled distended small bowel loops extending into the lateral right upper pelvis where a transition point is seen on images 156 through 158 of serie s 4. The small bowel becomes decompressed with wall thickening at this l evel, extending to the neoterminal ileum. There are prominent aortic calcifications without aneurysm. The IVC appears normal. Surgical sca rring is seen in the subcutaneous fat of the anterior abdominal wall. CTA PELVIS: No acute vascular injury or active bleeding is seen. Fairly prominent atheroscle rotic calcifications are noted. There appears to be prior removal of the cecum with anastomosis near the ileocecal junction. Inflammatory changes are noted in the terminal ileum. There is scattered pancolonic diverticulosis, most prominent in the sigmoid. The prostate is enla rged. The urinary bladder is unremarkable. No free fluid, locul ated fluid, free air or soft tissue gas is seen in the abdomen or pelvis. There is fairly adva nced degenerative disc disease at L5-S1. No acute osseous abnormality or suspi cious bony lesion is seen. C T/CT angio chest IMPRESSION: 1. No acute pulmonar [...] the abdomen or pelvis. 4. Prior cecal resec tion with anastomosis near the ileocecal junction. 5. Pancolonic diverticulosis. 6. Nonobstructing bilateral renal calculi. 7. Prostatomegaly. Additional nonemergent findings are present, as above. Electronically authenticated by: ALLI SULLIVAN Date: 08/31/2024 04:06 Dictated By: Alli Sullivan M.D. Signed By: 08/31/249 DD/ 5 TD/TT: Wrapping Machine Helper: ECG 12 lead Reviewed date:09/02/2024 02:45:20 PM Interpretation: Performing Lab: Notes/Report: Source Facility: [place] [address] [place] [address] Electrocardiograph Report Signed Patient: JEB RIDDLE MR#: [id number] : 1950 Acct:[id number] Age/Sex: 73 / M ADM Date: 08/31/24 Loc: ICU 270- Attending Dr: Rodriguez Godwin M.D. Ordering Physician: Rodriguez Godwin M.D. Date of Service: 08/31/24 Procedure(s): ECG 12 lead Accession Number(s): [id number] cc: The Test Date: 2024-08-31 Pat Name: JEB RIDDLE Department: Room: [facility] Gender: Male Medicare Sales Representative: : 1950 Requested By: RODRIGUEZ GODWIN Order Number: [id number] Reading MD: RODRIGUEZ GODWIN Measurements Intervals [place] Rate: 144 P: NC: QRS: 52 QRSD: 94 T: 84 QT: 298 QTc: 462 Interpretive Statements SUPRAVENTRICULAR TACHYCARDIA MODERATE ST DEPRESSION [0.05+ mV ST DEPRESSION] No previous ECG available for comparison Dictated By: Rodriguez Godwin M.D. Signed By: <Electronically signed by Rodriguez Godwin M.D.> 09/01/24 0623 DD/ 151 TD/TT: Wrapping Machine Helper: The [place] [id number] Electrocardiograph Report Signed Patient: JEB RIDDLE MR#: [id number] : 1950 Acct:[id number] Age/Sex: 73 / M ADM Date: 08/31/24 Loc: ICU 270- Attending Dr: Yasmin Godwin M.D. Ordering Physician: Rodriguez Godwin M.D. Date of Service: 08/31/24 Procedure(s): ECG 12 lead Accession Number(s): [id number] cc: The Test Date: 2024-08-31 Pat Name: JEB RIDDLE Department: 54 Room: [facility] Gender: Male Medicare Sales Representative: : 1950 Requested By: RODRIGUEZ GODWIN Order Number: [id number] Reading MD: RODRIGUEZ GODWIN Measurements Intervals [place] Rate: 144 P: NC: QRS: 52 QRSD: 94 T: 84 QT: 298 QTc: 462 Interpretive Statements SUPRAVENTRICULAR TACHYCARDIA MODERATE ST DEPRESSI ON [0.05+ mV ST DEPRESSION] No previous ECG avai lable for comparison Dictated By: Rekha Godwin M.D. Signed By: <Electronically signed by Rodriguez Godwin M.D.> 09/01/24 0623 DD/ 1516 TD/TT: Wrapping Machine Helper: Troponin I High Sensitivity Reviewed date:09/02/2024 02:45:21 PM Interpretation: Performing Lab: Notes/Report: The , Troponin I High Sensitivity 20.9 4.0-76.1 pg/mL CUT-OFF POINTS HAVE BEEN ESTABLISHED BASED ON THE FOURTH UNIVERSAL DEFINITION OF MYOCARDIAL INFARCTION. THE UPPER REFERENCE LIMIT (URL) OF TROPONIN, DEFINED THE 99TH PERCENTILE OF cTnI DISTRIBUTION IN A REFERENCE POPULATION, HAS BEEN CONFIRMED THE DECISION THRESHOLD FOR [place] DIAGNOSIS. 99TH PERCENTILE = 76.2 PG/ML NOTE: HIGH-SENSITIVITY TROPONIN ASSAY IS NOT INTENDED TO BE USED IN ISOLATION BUT SHOULD BE INTERPRETED IN CONJUNCTION WITH OTHER DIAGNOSTIC AND CLINICAL INFORMATION. Performing Lab: see note ML - [facility] LB Prothrombin Time INR Reviewed date:09/02/2024 02:45:21 PM Interpretation: Performing Lab: Notes/Report: The , Prothrombin Time 11.4 9.0-11.6 sec INR 1.08 DESIRED INR: 2.0-3.0 CONDITIONS NOT LISTED BELOW 2.5-3.5 FOR PROSTHETIC HEART VALVE REPLACEMENT 2.5-3.5 RECURRENT THROMBOSIS Performing Lab: see note ML - [facility] LB PTT Reviewed date:09/02/2024 02:45:21 PM Interpretation: Performing Lab: Notes/Report: The , Partial Thromboplastin Time 26.1 22.3-36.2 sec Performing Lab: see note ML - [facility] LB PROF CHEM 8 (BAS METB) Reviewed date:08/31/2024 09:11:51 AM Interpretation: Performing Lab: Notes/Report: The , Sodium 143 136-145 mmol/L Potassium 5.1 [...] mg/dL Performing Lab: see note ML - [facility] LB CBC AUTO DIFF Reviewed date:08/31/2024 09:11:51 AM Interpretation: Performing Lab: Notes/Report: The , White Blood Count 8.5 4.0-11.0 10 [...] 0.00-0.03 10 3/uL Performing Lab: see note - [facility] LB PSA Total+% Free Reviewed date:04/29/2024 11:48:54 AM Interpretation: Performing Lab: Notes/Report: [facility] , Prostate Specific Ag 4.1 0.0-4.0 ng/mL Satnam ECLIA methodology. According to the [place] [employer], Serum PSA should decrease and [...] PSA, Free 0.69 N/A ng/mL Satnam ECLIA methodology. % Free PSA 16.8 . % The [...] other population of men. Performed at: - [address] [id number] Employment Consultant: Greg Renee PhD, Phone: [phone] Performing Lab: see note LC - [facility] LB US venous doppler LE BI Reviewed date:09/15/2024 04:39:28 PM Interpretation: Performing Lab: Notes/Report: Source Facility: [place] [address] Ultrasound Report Signed Patient: JEB RIDDLE MR#: [id number] : 1950 Acct:[id number] Age/Sex: 73 / M ADM Date: 09/14/24 Loc: CARD Attending Dr: Rodriguez Godwin M.D. Ordering Physician: Rodriguez Godwin M.D. Date of Service: 09/14/24 Procedure(s): US venous doppler LE BI Accession Number(s): [id number] cc: Rodriguez Godwin M.D. [place] [address] Patient Name: JEB RIDDLE MRN: [facility]:[id number] date: 1950 Sex: M Assigned Patient Location: CARD Current Patient Location: CARD Accession/Order Number: [id number] Exam Date: 09/14/2024 11:15 Report Date: 09/14/2024 13:47 At the request of: RODRIGUEZ GODWIN Procedure: US venous doppler LE BI [...] Signed By: 09/14/24 1350 DD/ 1347 TD/TT: Wrapping Machine Helper: [place] [address] Ultrasound Report Signed Patient: JEB RIDDLE MR#: [id number] : 1950 Acct:[id number] Age/Sex: 73 / M ADM Date: 09/14/24 Loc: CARD Attending Dr: Yasmin Godwin M.D. Ordering Physician: Rodriguez Godwin M.D. Date of Service: 09/14/24 Procedure(s): US marco ous doppler LE BI Accession Number(s): [id number] cc: Rodriguez Godwin M.D. The [place] [id number] Patient Name: JEB RIDDLE MRN: [id number] date: 1950 Sex: M Assigned Patient Location: CARD Current Patient Loca tion: CARD Accession/Order Numb er: [id number] Exam Date: 09/14/2024 11:15 Report Date: 09/14/2024 13:47 At the request of: RODRIGUEZ GODWIN Procedure: US venous doppler LE BI EXAM: US venous dopp ler LE BI HISTORY: Deep Vein Thrombosis Of Left Leg COMPARISON: None. TECHNIQUE: Grayscale , color and Doppler FINDINGS: Region: Bilateral legs Thrombus: None Flow: Normal Compressibility: Normal Augmentation: Normal Previously identifie d left gastrocnemius deep vein thrombus is not seen on the current exam U S/US venous doppler LE BI IMPRESSION: No deep or superfici al vein thrombus identified in the legs Electronically authenticated by: ROBERT DAVENPORT Date: 09/14/2024 13:47 Dictated By: Cody Davenport M.D. Signed By: 09/14/24 1351 DD/ 1347 TD/TT: Wrapping Machine Helper: CBC AUTO DIFF Reviewed date:10/23/2024 03:58:06 PM Interpretation: Performing Lab: Notes/Report: The , White Blood Count 6.1 4.0-11.0 10 [...] Performing Lab: see note ML - [facility] LB UA DIP NONAUTO WO MICRO (810 02) - IN OFFICE Reviewed date:10/23/2024 03:58:06 PM Interpretation: Performing Lab: Notes/Report: COLOR yellow CLARITY clear GLUCOSE neg BILIRUBIN neg KETONE neg SPECIFIC GRAVITY 1.015 BLOOD LARGE PH 5 PROTEIN TRACE UROBILINOGEN neg NITRITE neg LEUKOCYTE ESTERASE TRACE CA echo doppler complete Reviewed date:12/18/2024 12:57:31 PM Interpretation: Performing Lab: Notes/Report: Source Facility: [place] [address] Cardiology Report Signed Patient: JEB RIDDLE MR#: [id number] : 1950 Acct:[id number] Age/Sex: 74 / M ADM Date: 12/18/24 Loc: CARD Attending Dr: Rodriguez Godwin M.D. Ordering Physician: Rodriguez Godwin M.D. Date of Service: 12/18/24 Procedure(s): CA echo doppler complete Accession Number(s): [id number] cc: Rodriguez Godwin M.D. Patient Name: JEB RIDDLE MR#: [id number] : 1950 Exam Date: 12/18/2024 Ordering Doctor: DR RODRIGUEZ GODWIN . ECHOCARDIOGRAM REPORT PROCEDURE: CA ECHO [...] Signed By: 12/18/24 1212 DD/ 1211 TD/TT: Wrapping Machine Helper: [place] [address] Cardiology Report Signed Patient: JEB RIDDLE MR#: [id number] : 1950 Acct:[id number] Age/Sex: 74 / M ADM Date: 12/18/24 Loc: CARD Attending Dr: Yasmin Godwin M.D. Ordering Physician: Rodriguez Godwin M.D. Date of Service: 12/18/24 Procedure(s): CA ech o doppler complete Accession Number(s): [id number] cc: Rodriguez Godwin M.D. Patient Name: JEB RIDDLE MR#: [id number] : 1950 Exam Date: 12/18/2024 Ordering Doctor: DR RODRIGUEZ GODWIN . ECHOCARDIOGRAM REPORT PROCEDURE: CA ECHO [...] mobility. No stenosis. No regurgitation. PERICARDIUM: No evid ence of pericardial effusion. IVC: Collapses with inspirations. [...] Gradient: 3 .23 mm[Hg] LVOT Area (cm2): 0.90 m/s Peak Velocity (LVOT) : 0.90 m/s [...] Hernandez M.D. Signed By: 12/18/24 1212 DD/ 121 TD/TT: Wrapping Machine Helper: ECG 12 lead Reviewed date:11/26/2024 08:47:37 PM Interpretation: Performing Lab: Notes/Report: Source Facility: [place] [address] [place] [address] Electrocardiograph Report Signed Patient: JEB RIDDLE MR#: [id number] : 1950 Acct:[id number] Age/Sex: 74 / M ADM Date: 11/25/24 Loc: ER Attending Dr: Ordering Physician: Damian Fraga Date of Service: 11/25/24 Procedure(s): ECG 12 lead Accession Number(s): [id number] cc: The Test Date: 2024-11-25 Pat Name: JEB RIDDLE Department: Room: - Gender: Male Medicare Sales Representative: : 1950 Requested By: 0953 Order Number: [id number] Vielka MD: JESSICA FORRESTER M.D. Measurements Intervals [place] Rate: 92 P: 66 NC: 176 QRS: 74 QRSD: 92 T: 73 QT: 360 QTc: 409 Interpretive Statements 1100 Sinus rhythm 9110 normal ECG Compared to ECG 11/14/2024 10:29:25 Sinus arrhythmia no longer present Electronically Signed On 11-26-2024 7:35:55 EDT by JESSICA FORERSTER M.D. Dictated By: JESSICA FORRESTER Signed By: 11/26/24 0736 DD/ 1501 TD/TT: Wrapping Machine Helper: [place] [address] Electrocardiograph Report Signed Patient: JEB RIDDLE MR#: [id number] : 1950 Acct:[id number] Age/Sex: 74 / M ADM Date: 11/25/24 Loc: ER Attending Dr: Ordering Physician: Damian Fraga Date of Service: 11/25/24 Procedure(s): ECG 12 lead Accession Number(s): [id number] cc: The Test Date: 2024-11-25 Pat Name: JEB RIDDLE Department: 54 Room: - Gender: Male Medicare Sales Representative: : 1950 Requ ested By: 0953 Order Number: [id number] Vielka MD: JESSICA FORRESTER M.D. Measurements Intervals [place] Rate: 92 P: 66 NC: 176 QRS: 74 QRSD: 92 T: 73 QT: 360 QTc: 409 Interpretive Statements 1100 Sinus rhythm 9110 normal ECG Compared to ECG 11/14/2024 10:29:25 Sinus arrhythmia no longer present Electronically Johana d On 11-26-2024 7:35:55 EDT by JESSICA FORRESTER M.D. Dictated By: JESSICA FORRESTER Signed By: 11/26/24 0736 DD/ 1501 TD/TT: Wrapping Machine Helper: ZHENG PADILLA DIFF Reviewed date:01/16/2025 09:56:39 PM Interpretation: Performing Lab: Notes/Report: The , White Blood Count 9.6 4.0-11.0 10 [...] Performing Lab: see note ML - [facility] LB CT head/brain wo con Reviewed date:11/14/2024 07:57:19 PM Interpretation: Performing Lab: Notes/Report: Source Facility: -[address] [place] [address] [place] [address] CT Scan Report Signed Patient: JEB RIDDLE MR#: [id number] : 1950 Acct:[id number] Age/Sex: 74 / M ADM Date: 11/14/24 Loc: ER Attending Dr: Ordering Physician: Shelby Haney Date of Service: 11/14/24 Procedure(s): CT head/brain wo con Accession Number(s): [id number] cc: Rodriguez Godwin M.D. The [address] [address] Patient Name: JEB RIDDLE MRN: [id number] date: 1950 Sex: M Assigned Patient Location: ER Current Patient Location: ER Accession/Order Number: [id number] Exam Date: 11/14/2024 11:21 Report Date: 11/14/2024 [...] Ivonne Zavala M.D.11/14/2024 11:26 AM Dictation Location: [place] [address] Electronically authenticated by: [id number] Y Date: 11/14/2024 11:26 Dictated By: Ivonne Zavala M.D. Signed By: 11/14/24 1128 DD/ 1126 TD/TT: Wrapping Machine Helper: The [address] [address] [address] Scan Report Signed Patient: JEB RIDDLE MR#: [id number] : 1950 Acct:[id number] Age/Sex: 74 / M ADM Date: 11/14/24 Loc: ER Attending Dr: Ordering Physician: Shelby Haney Date of Service: 11/14/24 Procedure(s): CT head/brain wo con Accession Number(s): [id number] cc: Rodriguez Godwin M.D. The [address] [address] Patient Name: JEB RIDDLE MRN: [id number] date: 1950 Sex: M Assigned Patient Location: ER Current Patient Loca tion: ER Accession/Order Numb er: [id number] Exam Date: 11/14/2024 11:21 Report Date: 11/14/2024 11:26 At the request of: SHELBY HANEY MD Procedure: CT head/b rain wo con CT BRAIN WITHOUT CONTRAST: CLINICAL [...] Mil d carotid siphon plaque is seen. C T/CT head/brain wo con IMPRESSION: AGE-RELATED CHANGES. NO ACUTE INTRACRANIA L ABNORMALITY. Impression dictated by: Ivonne Zavala M.D.11/14/2024 11:26 AM Dictation Location: [place] [address] Electronically authenticated by: [id number] Y Date: 11/14/2024 11:26 Dictated By: Ivonne Zavala M.D. Signed By: 11/14/24 1128 DD/ 1126 TD/TT: Wrapping Machine Helper: MAGDIEL Ortiz, reflex to culture Reviewed date:11/14/2024 07:57:19 PM Interpretation: Performing Lab: Notes/Report: The , Color Urine LT. YELLOW YELLOW Clarity Urine CLEAR CLEAR Specific Alpine Urine <=1.005 1.005-1.025 pH Urine 6.0 5.0-9.0 [...] Performing Lab: see note ML - [facility] LB Troponin I High Sensitivity Reviewed date:11/14/2024 07:57:19 PM Interpretation: Performing Lab: Notes/Report: The , Troponin I High Sensitivity 12.4 4.0-76.1 pg/mL CUT-OFF POINTS HAVE BEEN ESTABLISHED BASED ON THE FOURTH UNIVERSAL DEFINITION OF MYOCARDIAL INFARCTION. THE UPPER REFERENCE LIMIT (URL) OF TROPONIN, DEFINED THE 99TH PERCENTILE OF cTnI DISTRIBUTION IN A REFERENCE POPULATION, HAS BEEN CONFIRMED THE DECISION THRESHOLD FOR [place] DIAGNOSIS. 99TH PERCENTILE = 76.2 PG/ML NOTE: HIGH-SENSITIVITY TROPONIN ASSAY IS NOT INTENDED TO BE USED IN ISOLATION BUT SHOULD BE INTERPRETED IN CONJUNCTION WITH OTHER DIAGNOSTIC AND CLINICAL INFORMATION. Performing Lab: see note ML - [facility] LB PROF 14(COMP METB) Reviewed date:11/14/2024 07:57:19 PM Interpretation: Performing Lab: Notes/Report: The , Sodium 135 136-145 mmol/L Potassium 4.8 [...] Performing Lab: see note ML - [facility] LB MAGNESIUM Reviewed date:11/14/2024 07:57:19 PM Interpretation: Performing Lab: Notes/Report: The , Magnesium 1.4 1.8-2.4 mg/dL Performing Lab: see note ML - [facility] LB IRON Reviewed date:10/23/2024 03:58:06 PM Interpretation: Performing Lab: Notes/Report: The , Iron 68.0 65.0-175.0 ug/dL Performing Lab: see note ML - [facility] LB MAGNESIUM Reviewed date:01/16/2025 09:56:39 PM Interpretation: Performing Lab: Notes/Report: The , Magnesium 1.6 1.8-2.4 mg/dL Performing Lab: see note ML - [facility] LB BNP Reviewed date:01/16/2025 09:56:39 PM Interpretation: Performing Lab: Notes/Report: The , NT Pro B Type Natriuretic Pept 101.0 <=1800.0 pg/mL Performing Lab: see note ML - [facility] LB PSA Total+% Free Reviewed date:12/01/2024 01:18:05 PM Interpretation: Performing Lab: Notes/Report: [facility] , Prostate Specific Ag 4.4 0.0-4.0 ng/mL Satnam ECLIA methodology. According to the [place] [employer], Serum PSA should decrease and [...] PSA, Free 0.79 N/A ng/mL Satnam ECLIA methodology. % Free PSA 18.0 . % The [...] any other population of men. Performed at: [facility] [address] [id number] Employment Consultant: Greg Renee PhD, Phone: [phone] Performing Lab: see note - [facility] LB Reason For Referral Diagnosis 1 Syncope (R55) Diagnosis 2 Seizure (R56.9) Referral Organization [facility] Referring Provider First Name Jack Referring Provider Last Name Tato Referring Provider [facility] Referred Provider [facility] Referred Provider Specialty Neurology Referral Priority Routine Diagnosis 1 Sebaceous cyst (L72. 3) Referral Organization [facility] Referring Provider First Name Jack Referring Provider Last Name Tato Referring Provider [facility] Referred Provider Destini Kent Referred Provider Specialty [...] a day for 30 day(s) 02/21/2024 Active Topiramate 50 MG TAKE 1 TABLET BY OZIEL TH EVERY DAY FOR 30 DAYS for 30 Active Sunosi 150 MG 1 tablet in the morn ing Orally Once a day 03/22/2025 Active Ativan 1 MG 1 tablet F 41.9 Orally bid for 7 days As needed 04/11/2025 Active Aspirin 81 81 MG 1 tablet Orally Once a day Active Social History Tobacco Use: Social History [...] Status W/U Status Risk Notes Problem Seizure (00997551) Unspecified convulsions (R56.9) Active confirmed Problem Hypomagnesemia (727420315) Hypomagnesemia (E83.42) Active confirmed Problem Hypocalcemia (3659180) Hypocalcemia (E83.51) Active confirmed Problem Unstable angina (4280235) Unstable angina (I20.0) Active confirmed Problem 0579028 Supraventricular tachycardia (I47.1) Active confirmed Problem Abdominal pain (37217209) Abdominal pain (R10.9) Active confirmed Problem Chest pain (53582882) Chest pain (R07.9) Active confirmed Problem Fatigue (89934314) Fatigue (R53.83) Active conf irmed Problem Hypertension (30836880) Hypertension (I10) Active confirmed Problem Pulmonary embolism (90216099) Pulmonary embolism (I26.99) Active confirmed Problem Anxiety (45059273) Anxiety (F41.9) Active confi rmed Problem Tremor (25601216) Tremor (R25.1) Active confirm ed Problem Depression (653618746) Depression (F32.9) Active confirmed Problem Dyspnea (630411258) Dyspnea (R06.00) Active con firmed Problem Obstructive sleep apnea syndrome (44291547) TON on CPAP (G47.33) Active confirmed Problem Insomnia (409277615) Insomnia (G47.00) Active confirmed Problem Syncope (234159908) Syncope (R55) Active confir med Problem Generalized anxiety disorder (67751790) NADIYA (generalized anxiety disorder) (F41.1) Active confirmed Problem Colitis (62841776) Colitis (K52.9) Active confi rmed Problem Essential hypertension (86434216) Hypertension, uncontrolled (I10) Active confirmed Problem Pain in limb (53177985) Thumb pain, left (M79.645) Active confirmed Problem Iron deficiency anemia (21894659) Anemia, iron deficiency (D50.9) Active confirmed Problem Crohn disease (59573244) Crohn disease (K50.90) Active confirmed Problem Nonsustained paroxysmal supraventricular tachycardia (9619205227258) Supraventricular tachycardia, nonsustained (I47.9) Active confirmed Problem Elevated blood pressure (93484210) Blood pressure elevated (I10) Active confirmed Problem Essential hypertension (19113100) BP (high blood pressure) (I10) Active confirmed Problem Thrombophlebitis of deep veins of lower extremity (01094395) Deep vein thrombophlebitis of left leg (I80.202) Active confirmed Problem Chronic kidney disease stage 3A (disorder) (437586083) Chronic kidney disease, stage 3a (N18.31) Active confirmed Problem 10479890 Ventricular tachycardia, unspecified (I47.20) Active confirmed Vital Signs Blood pressure diastolic 84 mm Hg 04/11/2025 Height 74 in 04/11/2025 Blood pressure systolic 192 mm Hg 04/11/2025 Weight 187.0 lbs 04/11/2025 BMI 24.01 kg/m2 04/11/2025 Procedures Procedure Date Ordered Date Performed Result Body Sit e EEG (Sleep Deprived) 08/13/2024 N/A *CARDIO Stress Test - Treadmill Exercise 09/07/2024 N/A CARDIO Echocardiogram 11/28/2024 N/A EEG 08/09/2024 N/A Encounters Encounter Location Date Provider Diagnosis [facility] [address] [place] [address] 08/13/2024 Jack Hoy Hypertension I10 ; Insomnia G47.00 and Syncope R55 [facility] [address] [place] [address] 09/07/2024 Jack Hoy Chest pain R07.9 and Supraventricular tachycardia, nonsustained I47.9 [place] [address] [place] [address] 10/23/2024 Jack Hoy Increased urinary frequency R35.0 ; Supraventricular tachycardia, nonsustained I47.9 ; Blood pressure elevated I10 ; UTI (urinary tract infection), uncomplicated N39.0 ; Dysuria R30.0 and Sebaceous cyst L72.[address] [address] 11/13/2024 Jack Hoy Hypertension I10 and Supraventricular tachycardia I47.[address] [address] 11/28/2024 Jack Hoy Unstable angina I20. 0 ; PSA elevation R97.20 ; Anxiety F41.9 ; Depression F32.9 and Dyspnea R06.[address] [address] 01/16/2025 Jack Hoy Hypertension I10 ; F atigue R53.83 and Dyspnea R06.[address] [address] 03/22/2025 Jack Hoy Unspecified convulsi ons R56.9 ; Insomnia G47.00 and TON on CPAP G47.[address] [address] 04/11/2025 Jack Hoy Chronic kidney disea se, stage 3a N18.31 ; Hypertension I10 ; Insomnia G47.00 and NADIYA (generalized anxiety disorder) F41.[address] [address] 04/22/2024 Jack Hoy Elevated PSA R97.[address] [address] 04/29/2024 Jack Hoy Elevated PSA R97.[address] [address] 06/29/2024 Jack Hoy [address] [address] 08/09/2024 Jack Hoy Syncope R55 [address] [address] 08/16/2024 Jack Godwin Deep vein thrombophl ebitis of left leg I80.202 [facility] [address] [place] [address] 09/03/2024 Jack Godwin [facility] [address] [place] [place] [address] 09/04/2024 Jack Godwin [facility] [address] [place] [place] [address] 09/15/2024 Jack Godwin [facility] [address] [place] [place] [address] 10/09/2024 Jack Godwin [facility] [address] [place] [place] [address] 10/23/2024 Jack Godwin [facility] [address] [place] [place] [address] 10/25/2024 Jack Godwin [facility] [address] [place] [place] [address] 10/28/2024 Jack Godwin [facility] [address] [place] [place] [address] 11/07/2024 Jack Godwin Deep vein thrombophl ebitis of left leg I80.202 [facility] [address] [place] [place] [address] 11/07/2024 Jack Godwin [facility] [address] [facility] [facility] [place] [place] [address] 11/26/2024 Jack Godwin [facility] [address] [facility] [facility] [place] [place] [address] 12/03/2024 Jack Godwin [facility] [address] [facility] [place] [address] 12/18/2024 Jack Godwin Depression F32.9 [facility] [address] [facility] [facility] [place] [place] [address] 01/09/2025 Jack Godwin Hypertension I10 [facility] [address] [facility] [facility] [place] [place] [address] 01/09/2025 Jack Godwin [facility] [address] [facility] [address] 01/16/2025 Jack Godwin [facility] [address] [place] [address] 02/01/2025 Jack Godwin [facility] [address] [place] [address] 03/21/2025 Jack Godwin Anemia, iron deficie ncy D50.9 and Hyperkalemia E87.5 [facility] [address] [place] [address] 04/16/2025 Jack Godwin Assessments Encounter Date Diagnosis (ICD Code) Assessment Notes Treatment Notes Treatment Clinical Notes Section Notes 08/13/2024 Hypertension (ICD-10 - I10) 08/13/2024 Insomnia (ICD-10 - G47.00) 09/07/2024 Chest pain (ICD-10 - R07.9) 09/07/2024 Supraventricular tachycardia, nonsustained (ICD-10 - I47.9) 10/23/2024 Increased urinary frequency (ICD-10 - R35.0) 10/23/2024 Supraventricular tachycardia, nonsustained (ICD-10 - I47.9) 10/23/2024 Blood pressure elevated (ICD-10 - I10) 11/13/2024 Supraventricular tachycardia (ICD-10 - I47.1) 11/13/2024 Hypertension (ICD-10 - I10) 11/28/2024 Unstable angina (ICD-10 - I20.0) 04/22/2024 Elevated PSA (ICD-10 - R97.20) 04/29/2024 Elevated PSA (ICD-10 - R97.20) 08/09/2024 Syncope (ICD-10 - R55) 08/16/2024 Deep vein thrombophlebitis of left leg (ICD-10 - I80.202) 11/07/2024 Deep vein thrombophlebitis of left leg (ICD-10 - I80.202) 12/18/2024 Depression (ICD-10 - F32.9) 01/09/2025 Hypertension (ICD-10 - I10) 03/21/2025 Hyperkalemia (ICD-10 - E87.5) 03/21/2025 Anemia, iron deficiency (ICD-10 - D50.9) 11/28/2024 PSA elevation (ICD-10 - R97.20) 01/16/2025 Fatigue (ICD-10 - R53.83) 01/16/2025 Hypertension (ICD-10 - I10) 03/22/2025 Insomnia (ICD-10 - G47.00) 04/11/2025 Hypertension (ICD-10 - I10) 03/22/2025 Unspecified convulsions (ICD-10 - R56.9) 04/11/2025 Chronic kidney disease, stage 3a (ICD-10 - N18.31) following up on labs 03/22/2025 TON on CPAP (ICD-10 - G47.33) 04/11/2025 Insomnia (ICD-10 - G47.00) 01/16/2025 Dyspnea (ICD-10 - R06.00) 11/28/2024 Anxiety [...] until they are finished. You can use [id number] acetaminophen or ibuprofen if needed for pain. You should follow up with your Primary Care Physician or return to clinic if not improving in the next 3-5 days. 08/13/2024 Syncope (ICD-10 - R55) 11/28/2024 Depression (ICD-10 - F32.9) 04/11/2025 NADIYA (generalized anxiety disorder) (ICD-10 - F41.1) 10/23/2024 Dysuria (ICD-10 - R30.0) 11/28/2024 Dyspnea (ICD-10 - R06.00) 10/23/2024 Sebaceous cyst (ICD-10 - L72.3) Plan Of Treatment Pending Test Test Name Order Date Exercise Stress Nuclear Test 03/07/2023 Holter Test 02/28/2023 IRON, TOTAL 10/23/2024 EEG 08/09/2024 CARDIO Echocardiogram 11/28/2024 PSA-FREE AND TOTAL 11/28/2024 EEG (Sleep Deprived) 08/13/2024 PSA, TOTAL 04/19/2024 CA 19-9 04/19/2024 CEA 04/19/2024 CULTURE WOUND 10/23/2024 MRI BRAIN WO CON 08/13/2024 US CAROTID ART AZ 02/28/2023 US MARCO DOP LEG LT 11/07/2024 US MARCO DOP LEG LT 02/21/2024 XR HAND LT MIN 3V 03/07/2023 THYROID PANEL (T4/TSH/FREE T3) 5 THYROID PANEL (T4/TSH/FREE T3) 5 ECHOCARDIO M/2D [...] Insured Coverage Start Date Coverage End Date [employer]ARE ADV PLAN [address] [address] [place] [address] [id number] Jeb Riddle Self - patient is the insured 8 Medical (General) History Medical History History ICD Code Anxiety F41.9 Hypertension I10 Crohn disease K50.90 Surgical History Surgery Date(Month/Year) TONSILLECTOMY,UNDER 12YRS Crohns- bowel resection, 8ft taken out Hospitalization History Reason Date(Month/Year) bowel obstruction 08/2023 heart cath 2022
--- NOTE | 2025-04-21 21:52 | XR_ITS ---
The [address] [address] Patient Name: JEB TOBIAS MRN: [id number] date: 1950 Sex: M Assigned Patient Location: ER Current Patient Location: [place] Accession/Order Number: [id number] Exam Date: 04/21/2025 21:45 Report Date: 04/22/2025 09:20 At the request of: OLAMIDE JAMES Procedure: XR acute abdomen series ACUTE ABDOMEN SERIES WITH PA CHEST: CLINICAL HISTORY: Periumbilical abdominal pain with worsening today. Nausea. History of Crohn's disease. COMPARISON: Chest x-ray 11/25/[address] abdomen pelvis 08/31/2024 The chest film shows minimal basilar scarring or atelectasis. There are no other acute cardiopulmonary findings. Supine and upright views of the abdomen and pelvis demonstrate scattered small and large bowel air. There is stool within the colon. No free air is identified. There are some air-fluid levels at the upper pelvis centrally. No soft tissue masses are identified. There is bilateral nephrolithiasis, larger on the right measuring up to 7 mm. The bony structures are intact. XR/XR acute abdomen series IMPRESSION: NO ACUTE CARDIOPULMONARY FINDINGS. NONSPECIFIC BOWEL GAS PATTERN. FOLLOW-UP CT COULD BE CONSIDERED, SYMPTOMS WARRANT. NEPHROLITHIASIS. Impression dictated by: Ivonne Zavala M.D. 04/22/2025 9:20 AM Dictation Location: [place] [address] Electronically authenticated by: [id number] Y Date: 04/22/2025 09:20
--- NOTE | 2025-04-21 21:52 | ED.ABDPAIN1 ---
HPI - Abdominal Pain General Chief Complaint: Abdominal Pain Stated Complaint: ABDOMINAL PAIN Time Seen by Provider: 04/21/25 21:32 Source: patient Mode of arrival: walk-in Limitations: no limitations History of Present Illness HPI narrative: CC - ABDOMINAL PAIN, CONCERN FOR OBSTRUCTION VS CROHN'S FLARE Pt with Crohn's and prior history of bowel obstruction presents with periumbilical and infraumbilical abdominal pain that began when he woke this morning and worsened today despite conservative therapy at home. No vomiting but has nausea. He passed stool this morning and has passed some flatus -last was about 3 hours ago. He has not had anything to eat all day. He did take his medications with some milk but has not been drinking any additional fluids either. Related Data Home Medications ?Medication ?Instructions ?Recorded ?Confirmed mesalamine 400 mg capsule (with 800 mg PO BID 02/25/23 11/30/24 delayed release tablets inside) ondansetron 8 mg disintegrating 8 mg PO Q8H PRN nausea and vomiting 09/02/23 11/30/24 tablet clonidine HCl 0.1 mg tablet 0.1 mg PO BID 03/19/24 11/30/24 apixaban 5 mg tablet (Eliquis) 2.5 mg PO BID 08/31/24 11/30/24 lorazepam 1 mg tablet (Ativan) 1 mg PO BID PRN anxiety 08/31/24 11/30/24 Previous Rx's ?Medication ?Instructions ?Recorded isosorbide mononitrate 30 mg 30 mg PO QAM #30 tabs 03/14/23 tablet,extended release 24 hr lisinopril 20 mg tablet 40 mg (2 x 20 mg) PO DAILY #60 tabs 09/03/24 meclizine 25 mg tablet 25 mg PO TID PRN dizziness #20 tabs 11/30/24 Allergies Allergy/AdvReac Type Severity Reaction Status Date / Time Fish Containing Products AdvReac Severe Abdominal Verified 04/21/25 21:49 Pain PFSH [facility] Medical History (Updated 04/22/25 @ 03:11 by Nba Zabala) Small bowel obstruction ?K56.609 - Unspecified intestinal obstruction, unspecified as to partial versus complete obstruction (ICD-10) Abdominal pain ?R10.9 - Unspecified abdominal pain (ICD-10) Pulmonary embolism ?I26.99 - Other pulmonary embolism without acute cor pulmonale (ICD-10) Chest pain ?R07.9 - Chest pain, unspecified (ICD-10) Elevated blood pressure reading ?R03.0 - Elevated blood-pressure reading, without diagnosis of hypertension (ICD-10) Uncontrolled hypertension ?I10 - Essential (primary) hypertension (ICD-10) UTI (urinary tract infection) ?N39.0 - Urinary tract infection, site not specified (ICD-10) DVT (deep venous thrombosis) ?I82.409 - Acute embolism and thrombosis of unspecified deep veins of unspecified lower extremity (ICD-10) Dehydration ?E86.0 - Dehydration (ICD-10) DAVID (acute kidney injury) ?N17.9 - Acute kidney failure, unspecified (ICD-10) Abdominal pain ?R10.9 - Unspecified abdominal pain (ICD-10) Nausea & vomiting ?R11.2 - Nausea with vomiting, unspecified (ICD-10) Hypertension ?I10 - Essential (primary) hypertension (ICD-10) Crohn disease ?K50.90 - Crohn's disease, unspecified, without complications (ICD-10) Surgical History H/O hernia repair ?Z98.890 - Other specified postprocedural states (ICD-10) ?Z87.19 - Personal history of other diseases of the digestive system (ICD-10) History of bowel resection ?Z90.49 - Acquired absence of other specified parts of digestive tract (ICD-10) Family History (Updated 03/13/23 @ 20:02 by Bita Cyr RN) Father Family history of COPD (chronic obstructive pulmonary disease) Family history of diabetes mellitus Family history of myocardial infarction Brother Family history of cancer Mother Family history of diabetes mellitus Other Family history of hypertension Social History Within the past year, how often did you have a drink containing alcohol: 2-3 times a week Within the past year, how many standard drinks containing alcohol did you have on a typical day: 1 or 2 Within the past year, how often did you have six or more drinks on one occasion: never Total score: 0 Score interpretation: A score less than 4 is consistent with normal alcohol consumption. 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 Little interest or pleasure in doing things: not at all Feeling down, depressed, or hopeless: not at all Feel stressed/tense/nervous/anxious/difficulty sleeping: not at all Do you think of yourself as: straight/heterosexual Gender Identity: male Exam Narrative Exam Narrative: Nurses notes and vital signs reviewed and patient is not hypoxic. afebrile General: Well-appearing and in no apparent distress. Skin: Warm, dry, no pallor noted. Head: Normocephalic, atraumatic. Neck: Supple, non-tender. Eye: Pupils are equal, round and EOMI. No scleral icterus. Ears, Nose, Mouth, and Throat: Oral mucosa is dry Cardiovascular: Regular Rate and Rhythm without murmur, gallop or rub. Respiratory: No accessory muscle use or respiratory distress. Lungs are clear to auscultation, no wheezing, rales or rhonchi Musculoskeletal: normal ROM GI: Abdomen is soft, non-distended. Normal bowel sounds. No solid or pulsatile masses appreciated. Focal periumbilical/infraumbilical tenderness to palpation with an umbilical herniation. No rebound, guarding, or rigidity noted. Neurological: A&O x4. No cranial nerve dysfunction observed. No truncal ataxia. Moves all extremities. Sensation intact. Psychiatric: Cooperative and interactive. Normal mood and affect. Constitutional Vital Signs, click to edit/add: Last Vital Signs Temp 98.0 F 04/21/25 21:49 Pulse 61 04/21/25 23:55 Resp 18 04/21/25 23:55 BP 129/68 04/21/25 23:55 Pulse Ox 97 04/21/25 23:55 O2 Del Method Room Air 04/21/25 21:49 Course Vital Signs Vital signs: Vital Signs Blood Pressure 156/74 H 04/21/25 21:44 Pulse Oximetry 95 04/21/25 21:44 Temperature 98.0 F 04/21/25 21:49 Pulse Rate 61 04/21/25 23:55 Respiratory Rate 18 04/21/25 23:55 Blood Pressure 129/68 04/21/25 23:55 Pulse Oximetry 97 04/21/25 23:55 Oxygen Delivery Method Room Air 04/21/25 21:49 MDM - Abdominal Pain MDM Narrative Medical decision making narrative: Peripheral IV established and blood drawn and sent for testing. The patient is undergone numerous CT scans of the abdomen pelvis in the past -he asked that we start with acute abdominal series. He was ordered to receive normal saline IV fluid, IV Zofran for nausea and IV Dilaudid for pain. White blood cell count is normal. He does have a left shift but without leukocytosis. Basic metabolic profile is similar to his baseline renal function, electrolytes are normal, glucose 162. Calcium is normal. Lipase was normal at 16. Abdominal x-rays did not reveal any evidence of acute obstruction. He does not have ileus. There is gas and stool is also noted distally. I reviewed these results with the patient. He told me that his pain was significantly decreased after getting the IV Dilaudid and his nausea had subsided after getting the Zofran. However he was very concerned about the nature of the pain and concern that this umbilicus herniation, which he believed was new, could be the etiology of his pain. CT scan of the abdomen pelvis was obtained with IV contrast. The patient's pain returned, while we were awaiting the results of the CT scan, therefore he was given additional IV Dilaudid. After several phone calls to [employer] to try and expedite the reading, I received the radiologist's reading report at 0300. According to the radiologist, there was a distal enteritis consistent with active Crohn's disease with an associated early partial small bowel obstruction in this area. Other findings were consistent with chronic known changes in this patient which included postoperative changes from prior appendectomy, left colon and sigmoid colon diverticulosis without diverticulitis, nonobstructive bilateral nephrolithiasis, bilateral renal cortical cysts, enlarged prostate, degenerative disc disease in the mid lower spine levels. I talked to the patient about his results -he said that typically when he has these kind of findings he improves with IV steroids, continued medication for nausea and pain as needed and does not require NG tube -he just simply has to be n.p.o., get fluids and then the steroid seem to take care of it . Call was placed to the on-call hospitalist to discuss observation admission for this patient. @ [id number] - I spoke with Dr Camilo and after discussing the patient's case [facility] The pt was agreeable to admission. He is very aware of his condition and knows what works best for him - he declined offer for NG tube - I don't need that , he told me. [facility]. Differential Diagnosis Differential diagnosis: Likely abdominal pain, calculus of kidney, constipation, diverticulitis, pancreatitis and small bowel obstruction Medical Records Attestation: I reviewed the patient's medical records. Lab Data Attestation: I reviewed the patient's lab results. Labs: Lab Results 04/21/25 04/22/25 Range/Units 22:23 00:09 WBC 10.3 (4.0-11.0) 10^3/uL RBC 4.20 L (4.70-6.10) 10^6/uL Hgb 13.1 L (14.0-18.0) g/dL Hct 38.2 L (42.0-54.0) % MCV 91.0 (80.0-94.0) fL MCH 31.2 (25.9-34.0) pg MCHC 34.3 (29.9-35.2) g/dL RDW 12.4 (11.0-15.0) % Plt Count 240 (150-450) 10^3/uL MPV 10.4 (9.5-13.5) fL Neut % (Auto) 90.8 H (43.0-75.0) % Lymph % (Auto) 6.9 L (20.5-60.0) % [place] % (Auto) 1.7 (1.7-12.0) % Eos % (Auto) 0.2 L (0.9-7.0) % Baso % (Auto) 0.2 (0.2-2.0) % Neut # (Auto) 9.4 H (1.4-6.5) 10^3/uL Lymph # (Auto) 0.7 L (1.2-3.8) 10^3/uL [place] # (Auto) 0.2 L (0.3-0.8) 10^3/uL Eos # (Auto) 0.0 (0.0-0.7) 10^3/uL Baso # (Auto) 0.0 (0.0-0.1) 10^3/uL Abs Immat Gran (auto) 0.02 (0.00-0.03) 10^3/uL Imm/Tot Granulo (auto) 0.2 (0.0-0.5) % Sodium 144 (136-145) mmol/L Potassium 4.6 (3.5-5.1) mmol/L Chloride 110 H (98-107) mmol/L Carbon Dioxide 23.5 (21.0-32.0) mmol/L Anion Gap 15.1 BUN 28.0 H (7.0-18.0) mg/dL Creatinine 1.34 H (0.70-1.30) mg/dL Est GFR ( Amer) >60 (>=60 mL/min/1.73m^2) Est GFR (Non-Af Amer) 52 L (>=60 mL/min/1.73m^2) BUN/Creatinine Ratio 20.9 Glucose 162 H (74-106) mg/dL Calcium 8.7 (8.5-10.1) mg/dL Total Bilirubin 0.5 (0.2-1.0) mg/dL AST 18 (15-37) U/L ALT 28 (16-63) U/L Alkaline Phosphatase 71 (46-116) U/L Total Protein 6.6 (6.4-8.2) g/dL Albumin 3.5 (3.4-5.0) g/dL Globulin 3.1 g/dL Albumin/Globulin Ratio 1.1 Lipase 16.0 (16.0-77.0) U/L Urine Color Lt. yellow (YELLOW) Urine Clarity Clear (CLEAR) Urine pH 5.0 (5.0-9.0) Ur Specific [place] 1.025 (1.005-1.025) Urine Protein Negative (NEG/TRACE) mg/dL Urine Glucose (UA) Negative (NEGATIVE) mg/dL Urine Ketones Negative (NEGATIVE) mg/dL Urine Occult Blood Small A (NEGATIVE) Urine Nitrite Negative (NEGATIVE) Urine Bilirubin Negative (NEGATIVE) Urine Urobilinogen 0.2 (0.2-1.0) EU/dL Ur Leukocyte Esterase Negative (NEGATIVE) Urine RBC 5-10 A (0-2) #/HPF Urine WBC 0-2 A (NONE SEEN) #/HPF Ur Squamous Epith Cells None seen (NONE/RARE) #/LPF Urine Crystals None seen (None Seen) #/HPF Urine Bacteria Trace A (NONE SEEN) #/HPF Urine Casts None seen (NONE SEEN) #/LPF Urine Mucus None seen (NONE SEEN) Ur Culture Indicated? No Imaging Data CT scan - abdomen: Radiologist's impression: 1. Distal enteritis consistent with active Crohn's disease with associated early partial small bowel obstruction. Discharge Plan Discharge Chief Complaint: Abdominal Pain Clinical Impression: Partial obstruction of small intestine, Abdominal pain, Crohns disease of small intestine, Chronic kidney disease Patient Disposition: Admitted as Observation Time of Disposition Decision: 03:10
[2025-04-21] MEDS: 0.9 % SODIUM CHLORIDE 1,000 ML 999 ML IV (22:27)
[2025-04-21] MEDS: HYDROMORPHONE HCL 1 MG/ML CARTRIDGE IVP (22:28)
[2025-04-21 22:38] LABS: Hematocrit 38.2 % (42.0-54.0); Hemoglobin 13.1 g/dL (14.0-18.0); Immature Granulocytes Abs Auto 0.02 10^3/uL (0.00-0.03); Immature Granulocytes Pct Auto 0.2 % (0.0-0.5); Lymphocytes Absolute Auto 0.7 10^3/uL (1.2-3.8); Mean Corpuscular HGB Conc 34.3 g/dL (29.9-35.2); Mean Corpuscular Hemoglobin 31.2 pg (25.9-34.0); Mean Corpuscular Volume 91.0 fL (80.0-94.0); Platelet Count 240 10^3/uL (150-450); Red Blood Count 4.20 10^6/uL (4.70-6.10); White Blood Count 10.3 10^3/uL (4.0-11.0)
[2025-04-21 22:53] LABS: Lipase 16.0 U/L (16.0-77.0)
[2025-04-21 22:54] LABS: Alanine Aminotransferase 28 U/L (16-63); Albumin Globulin Ratio 1.1; Albumin Level 3.5 g/dL (3.4-5.0); Alkaline Phosphatase 71 U/L (46-116); Anion Gap 15.1; Aspartate Amino Transferase 18 U/L (15-37); Blood Urea Nitrogen 28.0 mg/dL (7.0-18.0); Calcium 8.7 mg/dL (8.5-10.1); Carbon Dioxide 23.5 mmol/L (21.0-32.0); Chloride 110 mmol/L (98-107); Estimated GFR (African America >60 (>=60 mL/min/1.73m^2); Estimated GFR (Non-African Ame 52 (>=60 mL/min/1.73m^2); Globulin 3.1 g/dL; Glucose 162 mg/dL (74-106); Potassium 4.6 mmol/L (3.5-5.1); Sodium 144 mmol/L (136-145); Total Protein 6.6 g/dL (6.4-8.2)
[2025-04-22] MEDS: 0.9 % SODIUM CHLORIDE 1,000 ML 1000 ML IV (00:06)
[2025-04-22 00:49] LABS: Glucose Urine UA NEGATIVE (NEGATIVE)
[2025-04-22 00:55] LABS: Cast Seen? NONE SEEN #/LPF (NONE SEEN); Crystals Seen? None Seen #/HPF (None Seen)
[2025-04-22 00:56] LABS: Urine Culture Indicated NO
[2025-04-22] MEDS: HYDROMORPHONE HCL 1 MG/ML CARTRIDGE IVP ×2 (00:56→03:27)
--- NOTE | 2025-04-22 02:13 | PC.NURSE ---
i informed this patient that Dr. Zabala called to see if they could speed up your ct scan, this patient voices ok this patient voices no concerns, needs and shows no signs of distress
[2025-04-22] MEDS: METHYLPREDNISOLONE SOD SUCC PF 125 MG/2 ML VIAL IVP (03:28)
[2025-04-22] MEDS: 0.9 % SODIUM CHLORIDE 1,000 ML 250 ML IV (03:30)
[2025-04-22 03:51] VITALS: BMI 23.8
--- OUTSIDE RECORDS SUMMARY | 2025-04-22 03:54 | XMS_ITS | CCD ---
Author Organization [facility] Care Team Providers Care Fuel Technician Name Role Phone DR BEHZAD CROCKER Primary Care Unavailable DANIEL ., JUNI Attending Unavailable DANIEL ., JUNI Admitting Unavailable DR ROBERT DAVENPORT V Consulting Unavailable PITER GROSSMAN Consulting Unavailable DANIEL ., JUNI Consulting Unavailable DIAB ., GRAYSON Consulting Unavailable ADITYA OATES Consulting Unavailable MD Rodriguez Godwin Primary Care Provider [phone] DO Ramiro Cortez Emergency Provider [phone] MD Rodriguez Gdowin Primary Care Provider [phone] KYA Garrison Emergency Provider Deb, FIRE OFFICER- Naima Phelan Emergency Provider Rodriguez Godwin Primary [...] Referring Unavailable MARIBEL BOJORQUEZ Referring Unavailable MARIBEL BOJOQRUEZ Attending Unavailable Rodriguez Godwin Primary Care Physician Jaun BRADSHAW Attending Unavailable Jaun BRADSHAW Attending Unavailable Frankie HOLLINS Attending Unavailable Frankie HOLLINS Attending Unavailable Frankie HOLLINS Admitting Unavailable Jaun BRADSHAW Attending Unavailable Jaun BRADSHAW Attending Unavailable JESSICA FORRESTER Attending Unavailable JESSICA FORRESTER Attending Unavailable JESSICA FORRESTER Attending Unavailable SHIV SHIRLEY Attending Unavailable JESSICA FORRESTER Referring Unavailable Rodriguez Godwin MD Primary Care Provider [phone] Santa Martinez DO Attending Provider Maribel Bojorquez DO Attending Provider Allergies Allergy Classification Reported Allergen(s) Allergy Type Date of Onset Reaction(s) Facility (2 sources) Fish derivative; Translations: [fish derived] Propensity to adverse reactions 03-03-20 Gastrointestinal Upset [facility] (1 source) No Known Medication Allergies; Translations: [No Known Medication Allergies] Propensity to adverse reactions (disorder) [facility] Repository (1 source) atorvastatin; Translations: [ATORVASTATIN] Drug Allergy 04-06-20 [facility] Repository Medications Current Medications Medication Drug [...] completed., # 2 cap(s), Refills(s) 0, Pharmacy: [facility]/pharmacy #[id number] Start Date: 12/11/24 Status: Ordered [...] clean-u p per request of Phys. [facility] Calculus of urinary tract (3 sources) Personal [...] disease (2 sources) Atherosclerotic heart disease of [place] coronary artery without angina pectoris; Translations: [Atherosclerotic heart disease of [place] coronary artery without angina pectoris] Onset: 5 [...] 3 01-09-2024 Episodic Other aftercare (1 source) ocean transportation intermediary (current) use of systemic steroids; Translations: [ROUND KILN DRAWER USE OF SYSTEMIC STEROIDS] Onset: 3 Episodic Other aftercare (1 source) Other manager intermediate (current) drug therapy; Translations: [OTH USP CURRENT DRUG THERAPY] Onset: 3 Episodic Other [...] Surgical Pathology Reporton 01-25-2025 Surgical Pathology Report [address] [address]- Surgical Pathology Report Collected Date/Time: 01/22/2025 10:13 [...] and entirely submitted in one cassette. (DC) DC:[facility] Microscopic Description Microscopic examination performed unless gross only specified. Quality was accessed and acceptable. This report was transcribed using voice recognition technology and might contain unintended computerized police sergeant errors. Normal [facility] Comment on above: Performed By: #### 4 [id number] #### [facility] Laboratory [address] [place] [address] 36on 01-22-2025 36 Spoke with patient a nd made him aware of normal stress test performed on 01/21/[address] Shirley. He verbalized understanding. Normal [facility] Ambulatory Visit Summaryon 0 01-22-2025 Ambulatory Visit [...] AM EDT With: Where: [facility] [address] [place] [place] [address]- Tuesday 8:45 AM EDT With: AUGUSTINE ADAN, Jaun Salguero Where: [facility] [address] [place] [address]- Medications What How Much When Instructions Unchanged [...] for choosing us for your care. Normal [facility] Orders Onlyon 01-22-2025 Orders Only [id number] Jeb Riddle 1950 M Date Provider Department Center 01/22/2025 [id number], HISTORICAL MISSY [facility] Family History Problem Relation Age of Onset Diabetes Mother Coronary artery disease Mother Heart attack Father Diabetes Father Coronary artery disease Father Pulmonary embolism Brother Family Status - Relation Status Age at Mother Father Brother Normal [facility] Office Visiton 01-15-2025 Follow-up visit [id number] Jeb Riddle 1950 M Date Provider Department Center 01/15/2025 Fabricio-SHIV SHIRLEY CARD [facility] Family History Problem Relation Age of Onset Diabetes Mother Coronary artery disease Mother Heart attack Father Diabetes Father Coronary artery disease Father Pulmonary embolism Brother Family Status - Relation Status Age at Mother Father Brother Level of Service:46607 [place] OFFICE/OUTPATIENT ESTABLISHED LOW MDM 20 MIN [facility] Orders Onlyon 01-15-2025 Orders Only [id number] Jeb Riddle 1950 M Date Provider Department Center 01/15/2025 Dmitry-TAQUERIA SNOW CARD [facility] Family History Problem Relation Age of Onset Diabetes Mother Coronary artery disease Mother Heart attack Father Diabetes Father Coronary artery disease Father Pulmonary embolism Brother Family Status - Relation Status Age at Mother Father Brother [facility] Orders Only [id number] Jeb Riddle 1950 M Date Provider Department Center 01/15/2025 [id number], HISTORICAL CARD [facility] Family History Problem Relation Age of Onset Diabetes Mother Coronary artery disease Mother Heart attack Father Diabetes Father Coronary artery disease Father Pulmonary embolism Brother Family Status - Relation Status Age at Mother Father Brother Normal [facility] Orders Onlyon 01-14-2025 Orders Only [id number] Jeb Riddle 1950 M Date Provider Department Center 01/14/2025 [id number], HISTORICAL CARD [facility] Family History Problem Relation Age of Onset Diabetes Mother Coronary artery disease Mother Heart attack Father Diabetes Father Coronary artery disease Father Pulmonary embolism Brother Family Status - Relation Status Age at Mother Father Brother Normal [facility] Urology Office/Clinic Noteon 12-11-2024 Urology Office/Clinic Note [...] d/t elevated PSA. 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 1. Elevated PSA (R97.20: Elevated prostate [...] office if experiencing persistent dizziness/lightheadedness. Sent to [facility]. -Will schedule cysto. The risks and benefits for cystoscopy have been discussed. The risks include bleeding, infection, and irritation of the bladder and urinary channel, among others. The patient, after being informed of procedural details and after questions have been answered, wishes to proceed. Full informed consent has been obtained. Will order Local anesthesia. Prophylactic abx sent to [facility]. 3. History of kidney stones (Z87.442: Personal history of urinary calculi) States he has some intrarenal stones noted on CT at [facility]. -Retrieve CT from [facility], see below 4. Renal cyst (N28.1: Cyst of kidney, acquired) Recent [facility] CT also noted large renal cyst per pt. He feels it looks suspicious for a mass and not a cyst. Will have to retrieve imaging from [facility] to view. -Pt can drop off CD 5. Incomplete bladder emptying (R33.9: Retention of urine, unspecified) PVR 102 cc. Lays on his side to void and voids into a urinal, this helps him empty. He does not do this every time. This has been going on for 6-12 mos. 6. 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 Overall the patient has the elevated PSA level which has actually fluctuated, prompting the recommendation for follow-up in 6 months with a repeat level. We discussed that usually prostate cancer will not fluctuate. He does have significant bladder outlet obstructive/irri (more content not included)... Normal [facility] Comment on above: Result Comment: Elec tronically Signed By: Jaun BRADSHAW MD P\.br\Date and Time Signed: 12/11/24 10:00 EDT\.br\Electronically Co-Signed By: Tarah Reese\.br\Date and Time Co-Signed: 12/11/24 09:58 EDT Office Visiton 11-14-2024 Follow-up visit [id number] Jeb Riddle 1950 M Date Provider Department Center 11/14/2024 JESSICA JAMISON MISSY Nicole Family History Problem Relation Age of Onset Diabetes Mother Coronary artery disease Mother Heart attack Father Diabetes Father Coronary artery disease Father Pulmonary embolism Brother Family Status - Relation Status Age at Mother Father Brother Level of Service:02639 [place] OFFICE/OUTPATIENT ESTABLISHED MOD MDM 30 MIN Normal [facility] Office Visiton 09-24-2024 Follow-up visit [id number] Jeb Riddle 1950 M Date Provider Department Center 09/24/2024 JESSICA JAMISON Family History Problem Relation Age of Onset Diabetes Mother Coronary artery disease Mother Heart attack Father Diabetes Father Coronary artery disease Father Family Status - Relation Status Age at Mother Father Level of Service:66981 [place] OFFICE/OUTPATIENT ESTABLISHED MOD MDM 30 MIN Normal [facility] CBC AND AUTO DIFFon 08-09-20 24 ABSOLUTE BASOPHIL 0.0 X10E9/L Normal 0.0-0.2 [facility] Comment on above: Performed By: #### 1 9123-9, 31544-6, CMP, 47222-0, 76413-5, CBCA, 5643-2, PINR #### [facility] ([id number]) [address] [place] [address], [place] [address] ABSOLUTE NEUTROPHIL 3.9 X10E9/L Normal 1.5-6.6 [facility] Comment on above: Performed By: #### 1 9123-9, 60350-6, CMP, 14693-1, 27332-5, CBCA, 5643-2, PINR #### [facility] ([id number]) [address] [place] [address] 01604 Basophils/100 WBC (Bld) 0.3 % Normal [facility] Comment on above: Performed By: #### 1 9123-9, 10250-0, CMP, 38593-3, 61846-8, CBCA, 5643-2, PINR #### [facility] ([id number]) [address] [place] [address] 16531 Eosinophils (Bld) [#/Vol] 0.1 10*3/uL Normal 0.0-0.4 [facility] Comment on above: Performed By: #### 1 9123-9, 25512-1, CMP, 25444-9, 08618-9, CBCA, 5643-2, PINR #### [facility] ([id number]) [address] [place] [address] 64422 Eosinophils/100 WBC (Bld) 1.4 % Normal [facility] Comment on above: Performed By: #### 1 9123-9, 38873-1, CMP, 30084-9, 40254-0, CBCA, 5643-2, PINR #### [facility] ([id number]) [address] [place] [address] 83765 Erythrocyte distribution width (RBC) [Ratio] 13.0 % Normal 11.5-15.0 [facility] Comment on above: Performed By: #### 1 9123-9, 30388-1, CMP, 76884-1, 21935-9, CBCA, 5643-2, PINR #### [facility] ([id number]) [address] [place] [address] 46216 Hematocrit (Bld) [Volume fraction] 35.7 % Low 39-49 [facility] Comment on above: Performed By: #### 1 9123-9, 92716-1, CMP, 47587-2, 41640-9, CBCA, 5643-2, PINR #### [facility] ([id number]) [address] [place] [address] 40608 Hemoglobin (Bld) [Mass/Vol] 12.3 g/dL Low 13.0-17.0 [facility] Comment on above: Performed By: #### 1 9123-9, 38854-6, CMP, 39005-0, 89582-7, CBCA, 5643-2, PINR #### [facility] ([id number]) [address] [place] [address] 06319 Lymphocytes (Bld) [#/Vol] 1.1 10*3/uL Normal 1.0-3.5 [facility] Comment on above: Performed By: #### 1 9123-9, 09612-9, CMP, 97902-0, 79609-9, CBCA, 5643-2, PINR #### [facility] ([id number]) [address] [place] [address] 66591 Lymphocytes/100 WBC (Bld) 21.0 % Normal [facility] Comment on above: Performed By: #### 1 9123-9, 95492-7, CMP, 48502-8, 38812-7, CBCA, 5643-2, PINR #### [facility] ([id number]) [address] [place] [address] 38925 MCH (RBC) [Entitic mass] 33.2 pg Normal 27-34 [facility] Comment on above: Performed By: #### 1 9123-9, 67786-6, CMP, 36817-3, 10680-7, CBCA, 5643-2, PINR #### [facility] ([id number]) [address] [place] [address] 07574 MCHC (RBC) [Mass/Vol] 34.3 g/dL Normal 32-36 [facility] Comment on above: Performed By: #### 1 9123-9, 10017-7, CMP, 97173-4, 37343-3, CBCA, 5643-2, PINR #### [facility] ([id number]) [address] [place] [address] 48980 MCV (RBC) [Entitic vol] 97 fL Normal 80-100 [facility] Comment on above: Performed By: #### 1 9123-9, 05704-4, CMP, 66427-6, 76121-1, CBCA, 5643-2, PINR #### [facility] ([id number]) [address] [place] [address] 13510 Monocytes (Bld) [#/Vol] 0.2 10*3/uL Normal 0-0.9 [facility] Comment on above: Performed By: #### 1 9123-9, 13876-1, CMP, 60828-7, 84379-7, CBCA, 5643-2, PINR #### [facility] ([id number]) [address] [place] [address] 88186 Monocytes/100 WBC (Bld) 4.5 % Normal [facility] Comment on above: Performed By: #### 1 9123-9, 67398-1, CMP, 15838-3, 60748-3, CBCA, 5643-2, PINR #### [facility] ([id number]) [address] [place] [address] 85100 Neutrophils/100 WBC (Bld) 72.8 % Normal [facility] Comment on above: Performed By: #### 1 9123-9, 47516-7, CMP, 38191-5, 36152-9, CBCA, 5643-2, PINR #### [facility] ([id number]) [address] [place] [address] 67480 Platelet mean volume (Bld) [Entitic vol] 7.7 fL Normal 7-12 [facility] Comment on above: Performed By: #### 1 9123-9, 23636-7, CMP, 45897-8, 97869-2, CBCA, 5643-2, PINR #### [facility] ([id number]) [address] [place] [address] 05861 Platelets (Bld) [#/Vol] 208 10*3/uL Normal 150-450 [facility] Comment on above: Performed By: #### 1 9123-9, 26547-8, CMP, 00806-2, 65595-5, CBCA, 5643-2, PINR #### [facility] ([id number]) [address] [place] [address] 48204 RBC COUNT 3.69 X10E12/L Low 4.10-5.70 [facility] Comment on above: Performed By: #### 1 9123-9, 08506-1, CMP, 08156-4, 65308-8, CBCA, 5643-2, PINR #### [facility] ([id number]) [address] [place] [address] 98820 WBC (Bld) [#/Vol] 5.4 10*3/uL Normal 4.0-11.0 [facility] Comment on above: Performed By: #### 1 9123-9, 84353-9, CMP, 95504-1, 21813-6, CBCA, 5643-2, PINR #### [facility] ([id number]) [address] [place] [address] 50391 COMPREHENSIVE METABOLIC PANE Morgan 08-09-2024 Albumin [Mass/Vol] 3.5 g/dL Normal 3.2-5.3 [facility] Comment on above: Performed By: #### 1 9123-9, 49454-5, CMP, 73371-6, 85419-3, CBCA, 5643-2, PINR #### [facility] ([id number]) [address] [place] [address] 32244 ALP [Catalytic activity/Vol] 56 U/L Normal 39-130 [facility] Comment on above: Performed By: #### 1 9123-9, 01342-6, CMP, 33160-1, 93367-2, CBCA, 5643-2, PINR #### [facility] ([id number]) [address] [place] [address] 17409 ALT [Catalytic activity/Vol] 25 U/L Normal 0-40 [facility] Comment on above: Performed By: #### 1 9123-9, 12575-8, CMP, 12432-7, 61270-7, CBCA, 5643-2, PINR #### [facility] ([id number]) [address] [place] [address] 41576 Anion gap [Moles/Vol] 7 mmol/L Normal 5-15 [facility] Comment on above: Performed By: #### 1 9123-9, 93874-6, CMP, 36649-8, 23416-4, CBCA, 5643-2, PINR #### [facility] ([id number]) [address] [place] [address] 55812 AST [Catalytic activity/Vol] 19 U/L Normal 0-41 [facility] Comment on above: Performed By: #### 1 9123-9, 38648-1, CMP, 58883-2, 72974-8, CBCA, 5643-2, PINR #### [facility] ([id number]) [address] [place] [address] 63208 Bilirubin [Mass/Vol] 0.4 mg/dL Normal 0.3-1.2 [facility] Comment on above: Performed By: #### 1 9123-9, 79494-4, CMP, 92096-3, 04789-9, CBCA, 5643-2, PINR #### [facility] ([id number]) [address] [place] [address] [place] [address] Calcium [Mass/Vol] 8.8 mg/dL Normal 8.5-10.5 [facility] Comment on above: Performed By: #### 1 9123-9, 58505-9, CMP, 83151-0, 20815-4, CBCA, 5643-2, PINR #### [facility] ([id number]) [address] [place] [address] [place] [address] Chloride [Moles/Vol] 108 mmol/L Normal 98-109 [facility] Comment on above: Performed By: #### 1 9123-9, 18770-4, CMP, 73755-5, 55074-5, CBCA, 5643-2, PINR #### [facility] ([id number]) [address] [place] [address] [place] [address] CO2 [Moles/Vol] 23 mmol/L Normal 22-32 [facility] Comment on above: Performed By: #### 1 9123-9, 76828-2, CMP, 11222-2, 02458-3, CBCA, 5643-2, PINR #### [facility] ([id number]) [address] [place] [address] [place] [address] Creatinine [Mass/Vol] 1.37 mg/dL High 0.70-1.20 [facility] Comment on above: Result Comment: METH OD TRACEABLE TO IDMS STANDARD Performed By: #### 1 9123-9, 02257-2, CMP, 09032-3, 74388-8, CBCA, 5643-2, PINR #### [facility] ([id number]) [address] [place] [address] [place] [address] GFR/1.73 sq M.predicted among non-blacks MDRD (S/P/Bld) [Vol rate/Area] 54 mL/min/{1.73_m2} Low >59 [facility] Comment on above: Result Comment: Reported eGFR is based on the CKD-EPI 2020 equation that does not use a race coefficient. Performed By: #### 1 9123-9, 04393-2, CMP, 44217-6, 44172-6, CBCA, 5643-2, PINR #### [facility] ([id number]) [address] [place] [address] 04656 Glucose [Mass/Vol] 155 mg/dL High 65-99 [facility] Comment on above: Performed By: #### 1 9123-9, 65265-7, CMP, 74092-2, 55435-3, CBCA, 5643-2, PINR #### [facility] ([id number]) [address] [place] [address] 22013 Potassium [Moles/Vol] 4.3 mmol/L Normal 3.5-5.0 [facility] Comment on above: Performed By: #### 1 9123-9, 83237-2, CMP, 89476-9, 41851-7, CBCA, 5643-2, PINR #### [facility] ([id number]) [address] [place] [address] 01980 Protein [Mass/Vol] 6.0 g/dL Normal 6.0-8.0 [facility] Comment on above: Performed By: #### 1 9123-9, 67340-9, CMP, 80966-5, 13493-7, CBCA, 5643-2, PINR #### [facility] ([id number]) [address] [place] [address] 95840 Sodium [Moles/Vol] 138 mmol/L Normal 134-146 [facility] Comment on above: Performed By: #### 1 9123-9, 72712-0, CMP, 81926-0, 07815-4, CBCA, 5643-2, PINR #### [facility] ([id number]) [address] [place] [address] 35983 Urea nitrogen [Mass/Vol] 25 mg/dL Normal 5-27 [facility] Comment on above: Performed By: #### 1 9123-9, 61191-2, [facility], 69062-9, 65385-2, CBCA, 5643-2, PINR #### [facility] ([id number]) [address] [place] [address] BRAIN WO CONTon CT BRAIN WO [...] Moran MD on 08/09/2024 12:54 PM Normal [facility] DRUG SCREEN, URINEon 024 AMPHETAMINE/METHAMP Negative Normal NEG [facility] Comment on above: Result Comment: AMPH /METH screening cut off = 1000 ng/mL Performed By: #### 1 9123-9, 99404-7, CMP, 64899-1, 26662-6, CBCA, 5643-2, PINR #### [facility] ([id number]) [address] [place] [address] 99968 BARBITURATES Negative Normal NEG [facility] Comment on above: Result Comment: Maria Eugenia iturates screening cut off value = 200 ng/mL Performed By: #### 1 9123-9, 01721-0, CMP, 29469-9, 84671-0, CBCA, 5643-2, PINR #### [facility] ([id number]) [address] [place] [address] 55235 BENZODIAZEPINES Negative Normal NEG [facility] Comment on above: Result Comment: Paulie odiazepines screening cut off value = 200 ng/mL Performed By: #### 1 9123-9, 00966-8, CMP, 01414-9, 14102-7, CBCA, 5643-2, PINR #### [facility] ([id number]) [address] [place] [address] 36233 CANNABINOIDS Negative Normal NEG [facility] Comment on above: Result Comment: Nora abinoids/THC screening cut off value = 50 ng/mL Performed By: #### 1 9123-9, 54236-7, CMP, 80250-0, 20086-8, CBCA, 5643-2, PINR #### [facility] ([id number]) [address] [place] [address] 79696 COCAINE METABOLITE Negative Normal NEG [facility] Comment on above: Result Comment: Coca ine screening cut off value = 300 ng/mL Performed By: #### 1 9123-9, 37347-6, CMP, 07294-4, 72871-7, CBCA, 5643-2, PINR #### [facility] ([id number]) [address] [place] [address] 43894 ECSTASY Negative Normal NEG [facility] Comment on above: Result Comment: Ecst asy screening cut off value = 500 ng/mL This report is intended for use in clinical monitoring or management of patients. Performed By: #### 1 9123-9, 01991-7, CMP, 73242-2, 40598-8, CBCA, 5643-2, PINR #### [facility] ([id number]) [address] [place] [address] 40940 METHADONE Negative Normal NEG [facility] Comment on above: Result Comment: Meth adone screening cut off value = 300 ng/mL. Performed By: #### 1 9123-9, 38483-0, [facility], 11285-5, 18059-5, CBCA, 5643-2, PINR #### [facility] ([id number]) [address] [place] [address] 34645 OPIATES Negative Normal NEG [facility] Comment on above: Result Comment: Opia brennen screening cut off value = 300 ng/mL NOTE: This test is used for the detection of codeine, hydrocodone (>1000 ng/mL), morphine and hydromorphone (>900 ng/mL) in urine. Performed By: #### 1 9123-9, 89190-4, [facility], 83087-4, 83128-8, CBCA, 5643-2, PINR #### [facility] ([id number]) [address] [place] [address] 89350 OXYCODONE Negative Normal NEG [facility] Comment on above: Result Comment: Oxyc odone screening cut off value = 300 ng/mL NOTE: This test is used for the detection of oxycodone and oxymorphone in urine. Performed By: #### 1 9123-9, 56269-3, [facility], 89555-5, 16384-4, CBCA, 5643-2, PINR #### [facility] ([id number]) [address] [place] [address] 68268 PHENCYCLIDINE Negative Normal NEG [facility] Comment on above: Result Comment: Phen cyclidine screening cut off value = 25 ng/mL Performed By: #### 1 9123-9, 66345-2, CMP, 30505-7, 77039-1, CBCA, 5643-2, PINR #### [facility] ([id number]) [address] [place] [address] 25759 ETHANOLon 08-09-2024 Ethanol [Mass/Vol] mg/dL Normal 0.00-0.08 [facility] Comment on above: Result Comment: This report is intended for use in clinical monitoring or management of patients. Performed By: #### 1 9123-9, 86858-9, CMP, 96833-8, 45554-4, CBCA, 5643-2, PINR #### [facility] ([id number]) [address] [place] [address] 20614 Fibrin D-dimer DDU (PPP) [Ma ss/Vol]on 08-09-2024 D DIMER 167 ng/mL DDU Normal <255 [facility] Comment on above: Result Comment: Results <255 ng/mL DDU: The presence of a VTE can safely be excluded with a negative D-Dimer result and Wells score. A negative result doesn't exclude the possibility of DIC. The test be repeated along with other diagnostic tests if the patient's symptoms persist or worsen. [email or web address] Performed By: #### 1 9123-9, 81380-7, [facility], 68799-0, 52170-3, CBCA, 5643-2, PINR #### [facility] ([id number]) [address] [place] [address] 62994 MAGNESIUMon 08-09-2024 Magnesium [Mass/Vol] 1.4 mg/dL Low 1.8-2.6 [facility] Comment on above: Performed By: #### 1 9123-9, 40169-3, CMP, 18413-5, 59155-2, CBCA, 5643-2, PINR #### [facility] ([id number]) [address] [place] [address] 05562 PROTIME AND INRon 08-09-2024 INR Coag (PPP) [Relative time] 1.2 {INR} High 0.8-1.1 [facility] Comment on above: Performed By: #### 1 9123-9, 00478-5, CMP, 54879-2, 02653-4, CBCA, 5643-2, PINR #### [facility] ([id number]) [address] [place] [address] 12894 PT Coag (PPP) [Time] 14.3 s High 9.8-13.2 [facility] Comment on above: Result Comment: NEW REFERENCE RANGE Performed By: #### 1 9123-9, 19647-3, CMP, 94739-8, 73983-0, CBCA, 5643-2, PINR #### [facility] ([id number]) [address] [place] [address] 40649 Troponin I.cardiac High sens itivity method [Mass/Vol]on 08-09-2024 1 HOUR TROP I, HIGH SENSITIVITY 10 ng/L Normal <21 [facility] Comment on above: Performed By: #### 1 9123-9, 34361-0, CMP, 06172-4, 41990-3, CBCA, 5643-2, PINR #### [facility] ([id number]) [address] [place] [address] 66891 TROPONIN I, HIGH SENSITIVITY 8 ng/L Normal <21 [facility] Comment on above: Performed By: #### 1 9123-9, 93256-5, CMP, 70529-0, 46079-5, CBCA, 5643-2, PINR #### [facility] ([id number]) [address] [place] [address] 35184 URINALYSISon 08-09-2024 Bilirubin Ql (U) Negative Normal NEG [facility] Comment on above: Performed By: #### 1 9123-9, 94095-1, CMP, 00670-0, 95701-3, CBCA, 5643-2, PINR #### [facility] ([id number]) [address] [place] [address] 21041 BLOOD/HGB Negative Normal NEG [facility] Comment on above: Performed By: #### 1 9123-9, 97352-3, CMP, 76475-8, 14373-3, CBCA, 5643-2, PINR #### [facility] ([id number]) [address] [place] [address], [place] [address] Color (U) YELLOW Normal YELLOW [facility] Comment on above: Performed By: #### 1 9123-9, 73702-6, CMP, 55349-2, 43503-8, CBCA, 5643-2, PINR #### [facility] ([id number]) [address] [place] [address] 58588 Glucose Ql (U) Negative Normal NEG [facility] Comment on above: Performed By: #### 1 9123-9, 39475-0, CMP, 82084-2, 00289-2, CBCA, 5643-2, PINR #### [facility] ([id number]) [address] [place] [address], [place] [address] Ketones Ql (U) Negative Normal NEG [facility] Comment on above: Performed By: #### 1 9123-9, 92837-2, CMP, 69257-5, 00534-7, CBCA, 5643-2, PINR #### [facility] ([id number]) [address] [place] [address], [place] [address] Leukocyte esterase Test strip Ql (U) Negative Normal NEG [facility] Comment on above: Performed By: #### 1 9123-9, 40122-3, CMP, 02260-3, 61619-3, CBCA, 5643-2, PINR #### [facility] ([id number]) [address] [place] [address] 85339 Nitrite Ql (U) Negative Normal NEG [facility] Comment on above: Performed By: #### 1 9123-9, 88425-7, CMP, 45280-5, 13119-6, CBCA, 5643-2, PINR #### [facility] ([id number]) [address] [place] [address] 78344 pH (U) 6.0 [pH] Normal 5.0-8.5 [facility] Comment on above: Performed By: #### 1 9123-9, 55547-1, CMP, 39747-2, 99749-0, CBCA, 5643-2, PINR #### [facility] ([id number]) [address] [place] [address] 15711 Protein Ql (U) Negative Normal NEG [facility] Comment on above: Performed By: #### 1 9123-9, 78294-1, CMP, 31081-4, 39495-6, CBCA, 5643-2, PINR #### [facility] ([id number]) [address] [place] [address] 98294 Specific gravity (U) [Rel density] 1.025 Normal 1.003-1.03 5 [facility] Comment on above: Performed By: #### 1 9123-9, 77328-6, CMP, 84167-5, 54622-0, CBCA, 5643-2, PINR #### [facility] ([id number]) [address] [place] [address] 33997 TURBIDITY CLEAR Normal CLEAR [facility] Comment on above: Performed By: #### 1 9123-9, 97553-1, CMP, 89859-7, 87665-4, CBCA, 5643-2, PINR #### [facility] ([id number]) [address] [place] [address] 01952 Urobilinogen Qn (U) 0.2 {Temo'U}/dL Normal <1.1 [facility] Comment on above: Performed By: #### 1 9123-9, 74098-4, CMP, 27358-3, 97397-0, CBCA, 5643-2, PINR #### [facility] ([id number]) [address] [place] [address] 37823 URN MACROSCOPIC NURon 2023 BILIRUBIN [place] Negative Normal NEG [facility] Comment on above: Performed By: #### N UM #### [facility] ([id number]) [address] [place] [address] 26901 BLOOD/HGB FRANKLIN Negative Normal NEG [facility] Comment on above: Performed By: #### N UM #### [facility] ([id number]) [address] [place] [address] 26574 GLUCOSE [place] Negative Normal NEG [facility] Comment on above: Performed By: #### N UM #### [facility] ([id number]) [address] [place] [address] 12771 KETONES FR[place] Negative Normal NEG [facility] Comment on above: Performed By: #### N UM #### [facility] ([id number]) [address] [place] [address] 16282 LEUKOCYTE ESTERASE [place] Negative Normal NEG [facility] Comment on above: Performed By: #### N UM #### [facility] ([id number]) [address] [place] [address] 69763 NITRITE [place] Negative Normal NEG [facility] Comment on above: Performed By: #### N UM #### [facility] ([id number]) [address] [place] [address] 11559 PH FRANKLIN 5.5 Normal 5.0-8.5 [facility] Comment on above: Performed By: #### N UM #### [facility] ([id number]) [address] [place] [address] 05151 PROTEIN [place] Negative Normal NEG [facility] Comment on above: Performed By: #### N UM #### [facility] ([id number]) [address] [place] [address] SPECIFIC GRAVITY FRANKLIN 1.020 Normal 1.003-1 .03 5 [facility] Comment on above: Performed By: #### N UM #### [facility] ([id number]) [address] [place] [address] 06361 UROBILINOGEN FRANKLIN 0.2 eu/dL Normal <1.1 [facility] Comment on above: Performed By: #### N UM #### [facility] ([id number]) [address] [place] [address] 80970 aPTT Coag (PPP) [Time]on aPTT Coag (Bld) [Time] 33 s Normal 26-37 [facility] Comment on above: Result Comment: NEW REFERENCE RANGE Performed By: #### 1 9123-9, 34762-5, CMP, 05357-6, 43992-9, CBCA, 5643-2, PINR #### [facility] ([id number]) [address] [place] [address] 21371 36on 04-18-2024 36 From: Jessica muñoz MD Sent: 04/18/2024 12:32 PM EDT To: Yuridia Nuñez MA Subject: RE: Scan Please inform him that blood testing for clotting disorder is negative. He should follow up with Dr Godwin for cancer screening. Pt has been notified [facility] Office Visiton 04-06-2024 Follow-up visit [id number] Jeb Riddle 1950 M Date Provider Department Center 04/06/2024 JESSICA JAMISON [facility] Lori Nicole Family History Problem Relation Age of Onset Diabetes Mother Coronary artery disease Mother Heart attack Father Diabetes Father Coronary artery disease Father Family Status - Relation Status Age at Mother Father Level of Service:20674 [place] OFFICE/OUTPATIENT ESTABLISHED MOD MDM 30 MIN [place] [...] aPTT Coag (PPP) [Time] 29.1 s 25.1-36.5 [facility] Comment on above: A hematocrit value g reater than 55% may lead to inaccurate results in coagulation testing. Patients having hematocrit values >55% require a special collection tube for coagulation studies. Please contact the laboratory at [phone] for redraw instructions. B-Type Natriuretic Peptideon 01-09-2024 Natriuretic peptide B (Bld) [Mass/Vol] 172.0 pg/mL High 5-100 [facility] Comment on above: Result Comment: PERF ORMED BY: [facility] [address] [place] [id number] PATHOLOGIST OIL HEAT TECHNICIAN RADHA BARRON M.D. Performed By: #### B CASE ADVOCATE, HS TROP, BMP, CK, DIFF CBC ####[facility] [address] [place] [address] [facility] Basic Metabolic Panelon 12-14 Anion gap [Moles/Vol] Not performed Normal 6.0-15.0 [facility] Comment on above: Performed By: #### B CASE ADVOCATE, HS TROP, BMP, CK, DIFF CBC ####[facility] [place] [address] [facility] Calcium [Mass/Vol] 8.7 mg/dL Normal 8.6-10.3 [facility] Comment on above: Performed By: #### B CASE ADVOCATE, HS TROP, BMP, CK, DIFF CBC ####[address] Chloride [Moles/Vol] 109 mmol/L High 98-107 [facility] Comment on above: Performed By: #### B CASE ADVOCATE, HS TROP, BMP, CK, DIFF CBC ####[address] CO2 [Moles/Vol] 22.4 mmol/L Normal 21.0-31.0 [facility] Comment on above: Performed By: #### B CASE ADVOCATE, HS TROP, BMP, CK, DIFF CBC ####[address] Creatinine [Mass/Vol] 1.16 mg/dL Normal 0.70-1.30 [facility] Comment on above: Performed By: #### B CASE ADVOCATE, HS TROP, BMP, CK, DIFF CBC ####[address] Creatinine Clr Calc Pharmacy 64.96 Normal [facility] Comment on above: Result Comment: PERF ORMED BY: [facility] [address] [place] [address] PATHOLOGIST OIL HEAT TECHNICIAN RADHA BARRON M.D. Performed By: #### B CASE ADVOCATE, HS TROP, BMP, CK, DIFF CBC ####[address] GFR/1.73 sq M.predicted MDRD (S/P/Bld) [Vol rate/Area] mL/min/{1.73_m2} Normal [facility] Comment on above: Performed By: #### B CASE ADVOCATE, HS TROP, BMP, CK, DIFF CBC ####[address] Glucose [Mass/Vol] 95 mg/dL Normal 70-100 [facility] Comment on above: Result Comment: [facility] Glucose Reference Range is dependent on time and content of last meal. Glucose of more than 200 mg/dL in a nonstressed, ambulatory subject supports the diagnosis of Diabetes Mellitus. ADA recommended reference range Performed By: #### B CASE ADVOCATE, HS TROP, BMP, CK, DIFF CBC ####[place] [address] [address] Potassium Normal 3.5-5.1 [facility] Comment on above: Result Comment: Spec imen hemolyzed, redraw requested Performed By: #### B CASE ADVOCATE, HS TROP, BMP, CK, DIFF CBC ####[address] Sodium [Moles/Vol] 142 mmol/L Normal 136-145 [facility] Comment on above: Performed By: #### B CASE ADVOCATE, HS TROP, BMP, CK, DIFF CBC ####[place] [address] [address] Urea nitrogen [Mass/Vol] 20 mg/dL Normal 7-25 [facility] Comment on above: Performed By: #### B CASE ADVOCATE, HS TROP, BMP, CK, DIFF CBC ####[address] Basophils Auto (Bld) [#/Vol] Ordered By: Naima Boyd on 01-09-2024 Basophils (Bld) [#/Vol] N/A [facility] Basophils/100 WBC Auto (Bld) Ordered By: Naima Boyd on 01-09-2024 Basophils/100 WBC (Bld) N/A [facility] Basophils/100 WBC Manual cnt (Bld)Ordered By: Naima Boyd on 01-09-2024 Basophils/100 WBC (Bld) 0 % 0-[address] [facility] [address] angio chest PE protocolon 01-09-2024 CT angio chest PE protocol [facility] [address] [place] [address] [place] [address] CT Scan Report Signed Patient: Jeb Riddle MR#: [id number] : 1950 Acct:[id number] Age/Sex: 73 / M ADM Date: 01/09/24 Loc: ER Room: Type: [facility] ER Attending Dr: Copies to: SABA [...] Jeb Collins M.D.01/09/2024 6:17 PM Dictation Location: [place] [address] Transcribed By: [facility] 01/09/241816 Dictated By: Jeb Collins II, MD 01/09/241810 Signed By: 01/09/241816 Normal [facility] Calcium [Mass/volume] in Ser um or PlasmaOrdered By: Naima Boyd on 01-09-2024 Calcium [Mass/Vol] 8.7 mg/dL 8.6-10.3 [facility] Carbon dioxide, total [Moles /volume] in Serum or PlasmaOrdered By: Naima Boyd on 01-09-2024 CO2 [Moles/Vol] 22.4 mmol/L 21.0-31.0 [facility] Chloride [Moles/volume] in S pooja or PlasmaOrdered By: Naima Boyd on 01-09-2024 Chloride [Moles/Vol] 109 mmol/L 98-107 [facility] Coagulation Profileon 2023 aPTT Coag (Bld) [Time] 29.1 s Normal 25.1-36.5 [facility] Comment on above: Order Comment: REDRA W Result Comment: A he matocrit value greater than 55% may lead to inaccurate results in coagulation testing. Patients having hematocrit values >55% require a special collection tube for coagulation studies. Please contact the laboratory at [phone] for redraw instructions. Performed By: #### P P, DDIMER ####[facility] [place] [address] [facility] INR Coag (PPP) [Relative time] 1.0 {INR} Normal [facility] Comment on above: Order Comment: [...] 4.5 Performed By: #### P P, DDIMER ####[facility] [address] [place] [address] [facility] PT Coag (PPP) [Time] 11.9 s Normal 9.0-12.9 [facility] Comment on above: Order Comment: REDRA W Result Comment: A he matocrit value greater than 55% may lead to inaccurate results in coagulation testing. Patients having hematocrit values >55% require a special collection tube for coagulation studies. Please contact the laboratory at [phone] for redraw instructions. Performed By: #### P P, DDIMER ####[facility] [place] [id number] [facility] Creatine Kinaseon 01-09-2024 CK [Catalytic activity/Vol] 81 U/L Normal [facility] Comment on above: Performed By: #### B CASE ADVOCATE, HS TROP, BMP, CK, DIFF CBC ####[place] [address] [place] [id number] [facility] Creatine kinase [Enzymatic a ctivity/volume] in Serum or PlasmaOrdered By: Naima Bullimore on 01-09-2024 CK [Catalytic activity/Vol] 81 U/L [facility] Creatinine [Mass/volume] in Serum or PlasmaOrdered By: [facility] Bullimore on 01-09-2024 Creatinine [Mass/Vol] 1.16 mg/dL 0.70-1.30 [facility] D-Dimer High Sensitivityon 0 01-09-2024 D-Dimer High Sensitivity 1905 ng/mL High 0-243 [facility] Comment on above: Order Comment: [...] coagulation studies. Please contact the laboratory at [phone] for redraw instructions. PERFORMED BY: [facility] [address] [place] [address] PATHOLOGIST OIL HEAT TECHNICIAN RADHA BARRON M.D. Performed By: #### P P, DDIMER ####[address] Diff and CBCon 01-09-2024 Basophils/100 WBC (Bld) 0 % Normal 0-2 [facility] Comment on above: Performed By: #### B CASE ADVOCATE, HS TROP, BMP, CK, DIFF CBC ####[address] Eosinophils/100 WBC (Bld) 4 % High 1-3 [facility] Comment on above: Performed By: #### B CASE ADVOCATE, HS TROP, BMP, CK, DIFF CBC ####[address] Erythrocyte distribution width (RBC) [Ratio] 14.9 % High 12.0-14.8 [facility] Comment on above: Performed By: #### B CASE ADVOCATE, HS TROP, BMP, CK, DIFF CBC ####[address] Hematocrit (Bld) [Volume fraction] 41.9 % Normal 38.8-50.0 [facility] Comment on above: Performed By: #### B CASE ADVOCATE, HS TROP, BMP, CK, DIFF CBC ####[address] Hemoglobin (Bld) [Mass/Vol] 14.1 g/dL Normal 13.0-17.0 [facility] Comment on above: Performed By: #### B CASE ADVOCATE, HS TROP, BMP, CK, DIFF CBC ####[address] Lymphocytes/100 WBC (Bld) 27 % Normal 18-42 [facility] Comment on above: Performed By: #### B CASE ADVOCATE, HS TROP, BMP, CK, DIFF CBC ####[address] MCH (RBC) [Entitic mass] 32.0 pg Normal 27.5-35.2 [facility] Comment on above: Performed By: #### B CASE ADVOCATE, HS TROP, BMP, CK, DIFF CBC ####[address] MCV (RBC) [Entitic vol] 95.1 fL Normal 83.5-101 [facility] Comment on above: Performed By: #### B CASE ADVOCATE, HS TROP, BMP, CK, DIFF CBC ####[address] Mean Corpuscular HGB Conc 33.6 g/dL Normal 32.5-35.6 [facility] Comment on above: Performed By: #### B CASE ADVOCATE, HS TROP, BMP, CK, DIFF CBC ####[address] Monocytes/100 WBC (Bld) 25.58 % High 0.00-20.00 [facility] Comment on above: Result Comment: For adults in ED, MDW > 20.0 may be associated with a higher risk of sepsis during the first 12 hrs of hospital admission Performed By: #### B CASE ADVOCATE, HS TROP, BMP, CK, DIFF CBC ####[address] Monocytes/100 WBC (Bld) 7 % Normal 2-11 [facility] Comment on above: Performed By: #### B CASE ADVOCATE, HS TROP, BMP, CK, DIFF CBC ####[address] Nucleated Red Blood Cell 0 /100{WBC} Normal 0-0 [facility] Comment on above: Performed By: #### B CASE ADVOCATE, HS TROP, BMP, CK, DIFF CBC ####[address] Platelet Estimate Normal Normal Normal [facility] Comment on above: Performed By: #### B CASE ADVOCATE, HS TROP, BMP, CK, DIFF CBC ####[address] Platelet mean volume (Bld) [Entitic vol] 8.6 fL Normal 6.6-10.1 [facility] Comment on above: Performed By: #### B CASE ADVOCATE, HS TROP, BMP, CK, DIFF CBC ####[address] Platelet Morphology Normal Normal Normal [facility] Comment on above: Performed By: #### B CASE ADVOCATE, HS TROP, BMP, CK, DIFF CBC ####[address] Platelets (Bld) [#/Vol] 240 10*3/uL Normal 150-450 [facility] Comment on above: Performed By: #### B CASE ADVOCATE, HS TROP, BMP, CK, DIFF CBC ####[address] Plt Comment SEE COMMENT BELOW Normal [facility] Comment on above: Result Comment: NO C LOTS, NO CLUMPS, SHORT DRAW LFM PERFORMED BY: [place] [address] PATHOLOGIST OIL HEAT TECHNICIAN RADHA BARRON M.D. Performed By: #### B CASE ADVOCATE, HS TROP, BMP, CK, DIFF CBC ####[address] RBC (Bld) [#/Vol] 4.41 10*6/uL Normal 3.90-5.60 [facility] Comment on above: Performed By: #### B CASE ADVOCATE, HS TROP, BMP, CK, DIFF CBC ####[address] RBC morphology finding Nom (Bld) Normal Normal Normal [facility] Comment on above: Performed By: #### B CASE ADVOCATE, HS TROP, BMP, CK, DIFF CBC ####[address] Segmented neutrophils/100 WBC (Bld) 62 % Normal 50-70 [facility] Comment on above: Performed By: #### B CASE ADVOCATE, HS TROP, BMP, CK, DIFF CBC ####[address] WBC (Bld) [#/Vol] 7.6 10*3/uL Normal 4.1-10.5 [facility] Comment on above: Performed By: #### B CASE ADVOCATE, HS TROP, BMP, CK, DIFF CBC ####[place] [address] [place] [id number] [facility] WBC (Bld) [#/Vol] 8.4 10*3/uL Normal 4.1-10.5 [facility] Comment on above: Performed By: #### B CASE ADVOCATE, HS TROP, BMP, CK, DIFF CBC ####[facility] [id number] [place] [id number] [facility] ECG 12 lead ECGon 01-09-2024 ECG 12 lead ECG [facility] [place] [address] Electrocardiograph Report Signed Patient: Jeb Riddle MR#: [id number] : 1950 Acct:[id number] Age/Sex: 73 / M ADM Date: 01/09/24 Loc: ER Room: Type: [facility] ER Attending Dr: Ordering Provider: SABA [...] By Timothy Patterson DO 1828 Normal [facility] Eosinophils Auto (Bld) [#/Vo l]Ordered By: Naima Boyd on 01-09-2024 Eosinophils (Bld) [#/Vol] N/A [facility] Eosinophils/100 WBC Auto (Bl d)Ordered By: Naima Boyd on 01-09-2024 Eosinophils/100 WBC (Bld) N/A [facility] Eosinophils/100 WBC Manual c nt (Bld)Ordered By: Naima Boyd on 01-09-2024 Eosinophils/100 WBC (Bld) 4 % 1-3 [facility] Erythrocyte distribution wid th Auto (RBC) [Ratio]Ordered By: Naima Boyd on 01-09-2024 Erythrocyte distribution width (RBC) [Ratio] 14.9 % 12.0-14.8 [facility] Fibrin D-dimer [Presence] in Platelet poor plasma by Latex agglutinationOrdered By: Naima Boyd on 01-09-2024 Fibrin D-dimer LA Ql (PPP) 1905 ng/mL 0-243 [facility] Comment on above: The reference range [...] coagulation studies. Please contact the laboratory at [phone] for redraw instructions. Glucose [Mass/volume] in Ser um or PlasmaOrdered By: Naima Boyd on 01-09-2024 Glucose [Mass/Vol] 95 mg/dL 70-100 [facility] Comment on above: ADA recommended refe rence rangeRandom Glucose Reference Range is dependent on time and content of last meal. Glucose of more than 200 mg/dL in a nonstressed, ambulatory subject supports the diagnosis of Diabetes Mellitus. Hematocrit Auto (Bld) [Volum e fraction]Ordered By: Naima Boyd on 01-09-2024 Hematocrit (Bld) [Volume fraction] 41.9 % 38.8-50.0 [facility] Hemoglobin [Mass/volume] in BloodOrdered By: Naima Boyd on 01-09-2024 Hemoglobin (Bld) [Mass/Vol] 14.1 g/dL 13.0-17.0 [facility] INR in Platelet poor plasma by Coagulation assayOrdered By: Naima Boyd on 01-09-2024 INR Coag (PPP) [Relative time] 1.0 {INR} [facility] Comment on above: INR Therapeutic Rang [...] RBC Auto (Bld) [#/Vol] 7.6 10*3/uL 4.1-10.5 [facility] Lymphocytes Auto (Bld) [#/Vo l]Ordered By: Naima Boyd on 01-09-2024 Lymphocytes (Bld) [#/Vol] N/A [facility] Lymphocytes/100 WBC Auto (Bl d)Ordered By: Naima Boyd on 01-09-2024 Lymphocytes/100 WBC (Bld) N/A [facility] Lymphocytes/100 WBC Manual c nt (Bld)Ordered By: Naima Boyd on 01-09-2024 Lymphocytes/100 WBC (Bld) 27 % 18-42 [facility] MCH Auto (RBC) [Entitic mass ]Ordered By: Naima Boyd on 01-09-2024 MCH (RBC) [Entitic mass] 32.0 pg 27.5-35.2 [facility] MCHC Auto (RBC) [Mass/Vol]Or dered By: Naima Boyd on 01-09-2024 MCHC (RBC) [Mass/Vol] 33.6 g/dL 32.5-35.6 [facility] MCV Auto (RBC) [Entitic vol] Ordered By: Naima Boyd on 01-09-2024 MCV (RBC) [Entitic vol] 95.1 fL 83.5-101 [facility] Monocyte distribution width [Entitic volume] in Blood by AutomatedOrdered By: Naima Bullimore on 01-09-2024 Monocyte distribution width Auto (Bld) [Entitic vol] 25.58 % 0.00-20.00 [facility] Comment on above: For adults in ED, MD W > 20.0 may be associated with a higher risk of sepsis during the first 12 hrs of hospital admission Monocytes Auto (Bld) [#/Vol] Ordered By: Naima Bullimore on 01-09-2024 Monocytes (Bld) [#/Vol] N/A [facility] Monocytes/100 WBC Auto (Bld) Ordered By: Naima Bullimore on 01-09-2024 Monocytes/100 WBC (Bld) N/A [facility] Monocytes/100 WBC Manual cnt (Bld)Ordered By: Naima Bullimore on 01-09-2024 Monocytes/100 WBC (Bld) 7 % 2-11 [facility] Natriuretic peptide B [Mass/ Vol]Ordered By: Naima Bullimore on 01-09-2024 Natriuretic peptide B (Bld) [Mass/Vol] 172.0 pg/mL 5-100 [facility] Neutrophils Auto (Bld) [#/Vo l]Ordered By: Naima Bullimore on 01-09-2024 Neutrophils (Bld) [#/Vol] N/A [facility] Neutrophils/100 WBC Auto (Bl d)Ordered By: Naima Bullimore on 01-09-2024 Neutrophils/100 WBC (Bld) N/A [facility] No Panel InformationOrdered By: Naima Bullimore on 01-09-2024 Estimated GFR (CKD-EPI) > 60.0 mL/Min [facility] Creatinine Clearance (Chem 64.96 [facility] Platelet Comment See comment below [facility] Comment on above: NO CLOTS, NO CLUMPS, SHORT DRAW LFM Nucleated RBC/100 WBC Manual cnt (Bld) [Ratio]Ordered By: Naima Bullimore on 01-09-2024 Nucleated RBC/100 WBC (Bld) [Ratio] 0 /100{WBC} 0-0 [facility] Nucleated erythrocytes [Pres ence] in Blood by Automated countOrdered By: Naima Bullimore on 01-09-2024 Nucleated RBC Auto Ql (Bld) N/A [facility] Platelet adequacy [Presence] in Blood by Light microscopyOrdered By: Naima Boyd on 01-09-2024 Platelets LM Ql (Bld) Normal Normal [facility] Platelet mean volume Auto (B ld) [Entitic vol]Ordered By: Naima Rutherfordore on 01-09-2024 Platelet mean volume (Bld) [Entitic vol] 8.6 fL 6.6-10.1 [facility] Platelet morphology finding [Identifier] in BloodOrdered By: Naima Godwinimore on 01-09-2024 Platelet morphology finding Nom (Bld) Normal Normal [facility] Platelets Auto (Bld) [#/Vol] Ordered By: Naima Rutherfordore on 01-09-2024 Platelets (Bld) [#/Vol] 240 10*3/uL 150-450 [facility] Potassium [Moles/volume] in Serum or PlasmaOrdered By: Naima Boyd on 01-09-2024 Potassium [Moles/Vol] 3.9 mmol/L 3.5-5.1 [facility] Prothrombin time (PT)Ordered By: Naima Boyd on 01-09-2024 PT Coag (PPP) [Time] 11.9 s 9.0-12.9 [facility] Comment on above: A hematocrit value g reater than 55% may lead to inaccurate results in coagulation testing. Patients having hematocrit values >55% require a special collection tube for coagulation studies. Please contact the laboratory at [phone] for redraw instructions. RBC Auto (Bld) [#/Vol]Ordere d By: Naima Boyd on 01-09-2024 RBC (Bld) [#/Vol] 4.41 10*6/uL 3.90-5.60 [facility] RBC morphologyOrdered By: Sabine Boyd on 01-09-2024 RBC morphology finding Nom (Bld) Normal Normal [facility] Redraw Potassiumon Potassium [Moles/Vol] 3.9 mmol/L Normal 3.5-5.1 [facility] Comment on above: Result Comment: PERF ORMED BY: [place] [phone] PATHOLOGIST OIL HEAT TECHNICIAN RADHA BARRON M.D. Performed By: #### R EDRAW K ####[facility] [id number] [place] [address] Segmented neutrophils/100 WB C Manual cnt (Bld)Ordered By: Naima Bullimore on 01-09-2024 Segmented neutrophils/100 WBC (Bld) 62 % 50-70 [facility] Serum or plasma anion gap de terminationOrdered By: Naima Bullimore on 01-09-2024 Anion gap [Moles/Vol] TNP [facility] Comment on above: Test not performed Sodium [Moles/volume] in Ser um or PlasmaOrdered By: Naima Bullimore on 01-09-2024 Sodium [Moles/Vol] 142 mmol/L 136-145 [facility] Troponin I High Sensitivityo n 01-09-2024 Troponin I High Sensitivity 13.1 pg/mL Normal 0.0-20.0 [facility] Comment on above: Result Comment: PERF ORMED BY: [place] [phone] PATHOLOGIST OIL HEAT TECHNICIAN RADHA BARRON M.D. Performed By: #### H S TROP #### [facility] [address] [place] [address] Troponin I High Sensitivity 12.5 pg/mL Normal 0.0-20.0 [facility] Comment on above: Result Comment: PERF ORMED BY: [place] [phone] PATHOLOGIST OIL HEAT TECHNICIAN RADHA BARRON M.D. Performed By: #### B CASE ADVOCATE, HS TROP, BMP, CK, DIFF CBC ####[facility] [id number] [place] [address] Troponin I.cardiac [Mass/vol ume] in Serum or Plasma by Detection limit <= 0.01 ng/Ordered By: Naima Godwinimore on 01-09-2024 Troponin I.cardiac DL <= 0.01 ng/mL [Mass/Vol] 13.1 pg/mL 0.0-20.0 [facility] Urea nitrogen [Mass/volume] in Serum or PlasmaOrdered By: Naima Boyd on 01-09-2024 Urea nitrogen [Mass/Vol] 20 mg/dL 03-08 [facility] WBC Auto (Bld) [#/Vol]Ordere d By: Naima Boyd on 01-09-2024 WBC (Bld) [#/Vol] 8.4 10*3/uL 4.1-10.5 [facility] XR chest 2V*on 01-09-2024 XR chest 2V* [place] [id number] XRay Report Signed Patient: Jeb Riddle MR#: [id number] : 1950 Acct:[id number] Age/Sex: 73 / M ADM Date: 01/09/24 Loc: ER Room: Type: [facility] ER Attending Dr: Copies to: SABA [...] Jeb Collins M.D.01/09/2024 4:11 PM Dictation Location: [place] [address] Transcribed By: [facility] 01/09/24 1611 Dictated By: Jeb Collins II, MD 01/09/24 1610 Signed By: 01/09/24 1611 Normal [facility] ECG 12 lead ECGon 12-18-2023 ECG 12 lead ECG [address] [address] Electrocardiograph Report Signed Patient: Jeb Riddle MR#: [id number] : 1950 Acct:[id number] Age/Sex: 73 / M ADM Date: 12/18/23 Loc: ER Room: Type: [facility] ER Attending Dr: Ordering Provider: Marie [...] was found Confirmed by RAMIRO CORTEZ DO ([id number]) on 12/18/2023 4:44:01 PM Referred By: Electronically Signed By:RAMIRO CORTEZ DO Transcribed By: MUS Signed By Ramiro Cortez DO 12/17 1644 Normal [facility] Activated partial thrombopla stin time (aPTT) in platelet poor plasma by coagulation aOrdered By: Ramiro Cortez on 03-03-2023 aPTT Coag (PPP) [Time] 29.7 s 25.1-36.5 [facility] B-Type Natriuretic Peptideon 03-03-2023 Natriuretic peptide B (Bld) [Mass/Vol] 52.0 pg/mL Normal 5-100 [facility] Comment on above: Result Comment: PERF ORMED BY: [facility] [address] [place] [address] PATHOLOGIST OIL HEAT TECHNICIAN RADHA BARRON M.D. Performed By: #### C BC, CK, PT, PTT, BMP, HS TROP, BNP ####[facility] [id number] [place] [address] [facility] Basic Metabolic Panelon 02-13 Anion gap [Moles/Vol] 10.6 mmol/L Normal 6.0-15.0 [facility] Comment on above: Performed By: #### C BC, CK, PT, PTT, BMP, HS TROP, BNP ####[address] Calcium [Mass/Vol] 8.6 mg/dL Normal 8.6-10.3 [facility] Comment on above: Performed By: #### C BC, CK, PT, PTT, BMP, HS TROP, BNP ####[address] Chloride [Moles/Vol] 108 mmol/L High 98-107 [facility] Comment on above: Performed By: #### C BC, CK, PT, PTT, BMP, HS TROP, BNP ####[address] CO2 [Moles/Vol] 24.6 mmol/L Normal 21.0-31.0 [facility] Comment on above: Performed By: #### C BC, CK, PT, PTT, BMP, HS TROP, BNP ####[address] Creatinine [Mass/Vol] 1.19 mg/dL Normal 0.70-1.30 [facility] Comment on above: Performed By: #### C BC, CK, PT, PTT, BMP, HS TROP, BNP ####[address] Creatinine Clr Calc Pharmacy 55.29 Normal [facility] Comment on above: Result Comment: PERF ORMED BY: [facility] [address] [place] [address] PATHOLOGIST OIL HEAT TECHNICIAN RADHA BARRON M.D. Performed By: #### C BC, CK, PT, PTT, BMP, HS TROP, BNP ####[address] GFR/1.73 sq M.predicted MDRD (S/P/Bld) [Vol rate/Area] mL/min/{1.73_m2} Normal [facility] Comment on above: Performed By: #### C BC, CK, PT, PTT, BMP, HS TROP, BNP ####[address] Glucose [Mass/Vol] 93 mg/dL Normal 70-100 [facility] Comment on above: Result Comment: [facility] Glucose Reference Range is dependent on time and content of last meal. Glucose of more than 200 mg/dL in a nonstressed, ambulatory subject supports the diagnosis of Diabetes Mellitus. ADA recommended reference range Performed By: #### C BC, CK, PT, PTT, BMP, HS TROP, BNP ####[place] [id number] [address] Potassium [Moles/Vol] 4.2 mmol/L Normal 3.5-5.1 [facility] Comment on above: Performed By: #### C BC, CK, PT, PTT, BMP, HS TROP, BNP ####[place] [id number] [address] Sodium [Moles/Vol] 139 mmol/L Normal 136-145 [facility] Comment on above: Performed By: #### C BC, CK, PT, PTT, BMP, HS TROP, BNP ####[address] Urea nitrogen [Mass/Vol] 17 mg/dL Normal 7-25 [facility] Comment on above: Performed By: #### C BC, CK, PT, PTT, BMP, HS TROP, BNP ####[address] Basophils Auto (Bld) [#/Vol] Ordered By: Ramiro Cortez on 03-03-2023 Basophils (Bld) [#/Vol] 0.0 10*3/uL 0.0-0.2 [facility] Basophils/100 WBC Auto (Bld) Ordered By: Ramiro Cortez on 03-03-2023 Basophils/100 WBC (Bld) 0.4 % . [facility] Calcium [Mass/volume] in Ser um or PlasmaOrdered By: Ramiro Cortez on 03-03-2023 Calcium [Mass/Vol] 8.6 mg/dL 8.6-10.3 [facility] Carbon dioxide, total [Moles /volume] in Serum or PlasmaOrdered By: Ramiro Cortez on 03-03-2023 CO2 [Moles/Vol] 24.6 mmol/L 21.0-31.0 [facility] Chloride [Moles/volume] in S pooja or PlasmaOrdered By: Ramiro Cortez on 03-03-2023 Chloride [Moles/Vol] 108 mmol/L 98-107 [facility] Complete Blood Count Auto Di ffon 03-03-2023 Basophils (Bld) [#/Vol] 0.0 10*3/uL Normal 0.0-0.2 [facility] Comment on above: Result Comment: PERF ORMED BY: [place] [address] PATHOLOGIST OIL HEAT TECHNICIAN RADHA BARRON M.D. Performed By: #### C BC, CK, PT, PTT, BMP, HS TROP, BNP #### [address] Basophils/100 WBC (Bld) 0.4 % Normal . [facility] Comment on above: Performed By: #### C BC, CK, PT, PTT, BMP, HS TROP, BNP #### [address] Eosinophils (Bld) [#/Vol] 0.2 10*3/uL Normal 0.0-0.45 [facility] Comment on above: Performed By: #### C BC, CK, PT, PTT, BMP, HS TROP, BNP #### [address] Eosinophils/100 WBC (Bld) 2.4 % Normal . [facility] Comment on above: Performed By: #### C BC, CK, PT, PTT, BMP, HS TROP, BNP #### [address] Erythrocyte distribution width (RBC) [Ratio] 13.0 % Normal 12.0-14.8 [facility] Comment on above: Performed By: #### C BC, CK, PT, PTT, BMP, HS TROP, BNP #### [address] Hematocrit (Bld) [Volume fraction] 38.3 % Low 38.8-50.0 [facility] Comment on above: Performed By: #### C BC, CK, PT, PTT, BMP, HS TROP, BNP #### [address] Hemoglobin (Bld) [Mass/Vol] 12.9 g/dL Low 13.0-17.0 [facility] Comment on above: Performed By: #### C BC, CK, PT, PTT, BMP, HS TROP, BNP #### [address] Lymphocytes (Bld) [#/Vol] 2.6 10*3/uL Normal 1.00-4.8 [facility] Comment on above: Performed By: #### C BC, CK, PT, PTT, BMP, HS TROP, BNP #### [address] Lymphocytes/100 WBC (Bld) 28.3 % Normal . [facility] Comment on above: Performed By: #### C BC, CK, PT, PTT, BMP, HS TROP, BNP #### [address] MCH (RBC) [Entitic mass] 30.8 pg Normal 27.5-35.2 [facility] Comment on above: Performed By: #### C BC, CK, PT, PTT, BMP, HS TROP, BNP #### [address] MCV (RBC) [Entitic vol] 91.9 fL Normal 83.5-101 [facility] Comment on above: Performed By: #### C BC, CK, PT, PTT, BMP, HS TROP, BNP #### [address] Mean Corpuscular HGB Conc 33.6 g/dL Normal 32.5-35.6 [facility] Comment on above: Performed By: #### C BC, CK, PT, PTT, BMP, HS TROP, BNP #### [address] Monocytes (Bld) [#/Vol] 0.6 10*3/uL Normal 0.0-0.8 [facility] Comment on above: Performed By: #### C BC, CK, PT, PTT, BMP, HS TROP, BNP #### [facility] [address] [place] [address] [place] Monocytes/100 WBC (Bld) 24.67 % High 0.00-20.00 [facility] Comment on above: Result Comment: For adults in ED, MDW > 20.0 may be associated with a higher risk of sepsis during the first 12 hrs of hospital admission Performed By: #### C BC, CK, PT, PTT, BMP, HS TROP, BNP #### [address] Monocytes/100 WBC (Bld) 6.5 % Normal . [facility] Comment on above: Performed By: #### C BC, CK, PT, PTT, BMP, HS TROP, BNP #### [address] Neutrophils (Bld) [#/Vol] 5.7 10*3/uL Normal 1.8-7.7 [facility] Comment on above: Performed By: #### C BC, CK, PT, PTT, BMP, HS TROP, BNP #### [address] Neutrophils/100 WBC (Bld) 62.4 % Normal . [facility] Comment on above: Performed By: #### C BC, CK, PT, PTT, BMP, HS TROP, BNP #### [place] [address] [place] NRBC% 0.1 /100{WBC} Normal 0-0.5 [facility] Comment on above: Performed By: #### C BC, CK, PT, PTT, BMP, HS TROP, BNP #### [address] Platelet mean volume (Bld) [Entitic vol] 8.2 fL Normal 6.6-10.1 [facility] Comment on above: Performed By: #### C BC, CK, PT, PTT, BMP, HS TROP, BNP #### [facility] [address] Platelets (Bld) [#/Vol] 234 10*3/uL Normal 150-450 [facility] Comment on above: Performed By: #### C BC, CK, PT, PTT, BMP, HS TROP, BNP #### [facility] [address] RBC (Bld) [#/Vol] 4.17 10*6/uL Normal 3.90-5.60 [facility] Comment on above: Performed By: #### C BC, CK, PT, PTT, BMP, HS TROP, BNP #### [facility] [address] WBC (Bld) [#/Vol] 9.2 10*3/uL Normal 4.1-10.5 [facility] Comment on above: Performed By: #### C BC, CK, PT, PTT, BMP, HS TROP, BNP #### [facility] [address] Creatine Kinaseon 03-03-2023 CK [Catalytic activity/Vol] 125 U/L Normal 30-223 [facility] Comment on above: Performed By: #### C BC, CK, PT, PTT, BMP, HS TROP, BNP ####[facility] [id number] Creatine kinase [Enzymatic a ctivity/volume] in Serum or PlasmaOrdered By: Ramiro Cortez on 03-03-2023 CK [Catalytic activity/Vol] 125 U/L 30-223 [facility] Creatinine [Mass/volume] in Serum or PlasmaOrdered By: Ramiro Cortez on 03-03-2023 Creatinine [Mass/Vol] 1.19 mg/dL 0.70-1.30 [facility] ECG 12 lead ECGon 03-03-2023 ECG 12 lead ECG [facility] [address] [place] [address] [place] [address] Electrocardiograph Report Signed Patient: Jeb Riddle MR#: [id number] : 1950 Acct:[id number] Age/Sex: 72 / M ADM Date: 03/03/23 Loc: ER Room: Type: [facility] ER Attending Dr: Ordering Provider: Ramiro [...] ECGs available Confirmed by RAMIRO CORTEZ DO ([id number]) on 03/03/2023 8:14:27 PM Referred By: Electronically Signed By:RAMIRO CORTEZ DO Transcribed By: MUS Signed By Ramiro Cortez DO 03/03 Normal [facility] Eosinophils Auto (Bld) [#/Vo l]Ordered By: Ramiro Cortez on 03-03-2023 Eosinophils (Bld) [#/Vol] 0.2 10*3/uL 0.0-0.45 [facility] Eosinophils/100 WBC Auto (Bl d)Ordered By: Ramiro Cortez on 03-03-2023 Eosinophils/100 WBC (Bld) 2.4 % . [facility] Erythrocyte distribution wid th Auto (RBC) [Ratio]Ordered By: Ramiro Cortez on 03-03-2023 Erythrocyte distribution width (RBC) [Ratio] 13.0 % 12.0-14.8 [facility] Glucose [Mass/volume] in Ser um or PlasmaOrdered By: Ramiro Cortez on 03-03-2023 Glucose [Mass/Vol] 93 mg/dL 70-100 [facility] Comment on above: ADA recommended refe rence rangeRandom Glucose Reference Range is dependent on time and content of last meal. Glucose of more than 200 mg/dL in a nonstressed, ambulatory subject supports the diagnosis of Diabetes Mellitus. Hematocrit Auto (Bld) [Volum e fraction]Ordered By: Ramiro Cortez on 03-03-2023 Hematocrit (Bld) [Volume fraction] 38.3 % 38.8-50.0 [facility] Hemoglobin [Mass/volume] in BloodOrdered By: Ramiro Cortez on 03-03-2023 Hemoglobin (Bld) [Mass/Vol] 12.9 g/dL 13.0-17.0 [facility] Laboratory - CoagulationOrde red By: Ramiro Cortez on 03-03-2023 PT Coag (PPP) [Time] 12.3 s 9.0-12.9 [facility] Leukocytes [#/volume] correc ava for nucleated erythrocytes in Blood by Automated counOrdered By: Ramiro Cortez on 03-03-2023 WBC corrected for nucl RBC Auto (Bld) [#/Vol] 9.2 10*3/uL 4.1-10.5 [facility] Lymphocytes Auto (Bld) [#/Vo l]Ordered By: Ramiro Cortez on 03-03-2023 Lymphocytes (Bld) [#/Vol] 2.6 10*3/uL 1.00-4.8 [facility] Lymphocytes/100 WBC Auto (Bl d)Ordered By: Ramiro Cortez on 03-03-2023 Lymphocytes/100 WBC (Bld) 28.3 % . [facility] MCH Auto (RBC) [Entitic mass ]Ordered By: Ramiro Cortez on 03-03-2023 MCH (RBC) [Entitic mass] 30.8 pg 27.5-35.2 [facility] MCHC Auto (RBC) [Mass/Vol]Or dered By: Ramiro Cortez on 03-03-2023 MCHC (RBC) [Mass/Vol] 33.6 g/dL 32.5-35.6 [facility] MCV Auto (RBC) [Entitic vol] Ordered By: Ramiro Cortez on 03-03-2023 MCV (RBC) [Entitic vol] 91.9 fL 83.5-101 [facility] Monocyte distribution width [Entitic volume] in Blood by AutomatedOrdered By: Ramiro Cortez on 03-03-2023 Monocyte distribution width Auto (Bld) [Entitic vol] 24.67 % 0.00-20.00 [facility] Comment on above: For adults in ED, MD W > 20.0 may be associated with a higher risk of sepsis during the first 12 hrs of hospital admission Monocytes Auto (Bld) [#/Vol] Ordered By: Ramiro Cortez on 03-03-2023 Monocytes (Bld) [#/Vol] 0.6 10*3/uL 0.0-0.8 [facility] Monocytes/100 WBC Auto (Bld) Ordered By: Ramiro Cortez on 03-03-2023 Monocytes/100 WBC (Bld) 6.5 % . [facility] Natriuretic peptide B [Mass/ Vol]Ordered By: Ramiro Cortez on 03-03-2023 Natriuretic peptide B (Bld) [Mass/Vol] 52.0 pg/mL 5-100 [facility] Neutrophils Auto (Bld) [#/Vo l]Ordered By: Ramiro Cortez on 03-03-2023 Neutrophils (Bld) [#/Vol] 5.7 10*3/uL 1.8-7.7 [facility] Neutrophils/100 WBC Auto (Bl d)Ordered By: Ramiro Cortez on 03-03-2023 Neutrophils/100 WBC (Bld) 62.4 % . [facility] No Panel InformationOrdered By: Ramiro Cortez on 03-03-2023 Estimated GFR (CKD-EPI) > 60.0 mL/Min [facility] Creatinine Clearance (Chem 55.29 [facility] Nucleated erythrocytes [Pres ence] in Blood by Automated countOrdered By: Ramiro Cortez on 03-03-2023 Nucleated RBC Auto Ql (Bld) 0.1 /100{WBC} 0-0.5 [facility] Partial Thromboplastin Timeo n 03-03-2023 aPTT Coag (Bld) [Time] 29.7 s Normal 25.1-36.5 [facility] Comment on above: Result Comment: PERF ORMED BY: [place] [address] PATHOLOGIST OIL HEAT TECHNICIAN RADHA BARRON M.D. Performed By: #### C BC, CK, PT, PTT, BMP, HS TROP, BNP #### [address] Platelet mean volume Auto (B ld) [Entitic vol]Ordered By: Ramiro Cortez on 03-03-2023 Platelet mean volume (Bld) [Entitic vol] 8.2 fL 6.6-10.1 [facility] Platelet poor plasma interna tional normalized ratio (INR) by coagulation assay (relatOrdered By: Ramiro Cortez on 03-03-2023 INR Coag (PPP) [Relative time] 1.1 {INR} [facility] Comment on above: INR Therapeutic Rang [...] 03-03-2023 Platelets (Bld) [#/Vol] 234 10*3/uL 150-450 [facility] Potassium [Moles/volume] in Serum or PlasmaOrdered By: Ramiro Cortez on 03-03-2023 Potassium [Moles/Vol] 4.2 mmol/L 3.5-5.1 [facility] Prothrombin Time INRon 03-03 INR Coag (PPP) [Relative time] 1.1 {INR} Normal [facility] Comment on above: Result Comment: [...] PT, PTT, BMP, HS TROP, BNP #### [facility] [address] PT Coag (PPP) [Time] 12.3 s Normal 9.0-12.9 [facility] Comment on above: Performed By: #### C BC, CK, PT, PTT, BMP, HS TROP, BNP #### [facility] [address] [place] [address] [place] RBC Auto (Bld) [#/Vol]Ordere d By: Ramiro Cortez on 03-03-2023 RBC (Bld) [#/Vol] 4.17 10*6/uL 3.90-5.60 [facility] Serum or plasma anion gap de terminationOrdered By: Ramiro Cortez on 03-03-2023 Anion gap [Moles/Vol] 10.6 mmol/L 6.0-15.0 [facility] Sodium [Moles/volume] in Ser um or PlasmaOrdered By: Ramiro Cortez on 03-03-2023 Sodium [Moles/Vol] 139 mmol/L 136-145 [facility] Troponin I High Sensitivityo n 03-03-2023 Troponin I High Sensitivity 7.6 pg/mL Normal 0.0-20.0 [facility] Comment on above: Result Comment: PERF ORMED BY: [facility] [address] [place] [address] PATHOLOGIST OIL HEAT TECHNICIAN RADHA BARRON M.D. Performed By: #### C BC, CK, PT, PTT, BMP, HS TROP, BNP ####[facility] [id number] Troponin I.cardiac [Mass/vol ume] in Serum or Plasma by Detection limit <= 0.01 ng/Ordered By: Ramiro Cortez on 03-03-2023 Troponin I.cardiac DL <= 0.01 ng/mL [Mass/Vol] 7.6 pg/mL 0.0-20.0 [facility] Urea nitrogen [Mass/volume] in Serum or PlasmaOrdered By: Ramiro Cortez on 03-03-2023 Urea nitrogen [Mass/Vol] 17 mg/dL 7-25 [facility] WBC Auto (Bld) [#/Vol]Ordere d By: Ramiro Cortez on 03-03-2023 WBC (Bld) [#/Vol] 9.2 10*3/uL 4.1-10.5 [facility] XR chest 2V*on 03-03-2023 XR chest 2V* [facility] [address] [address] [place] [address] XRay Report Signed Patient: Jeb Riddle MR#: [id number] : 1950 Acct:[id number] Age/Sex: 72 / M ADM Date: 03/03/23 Loc: ER Room: Type: [facility] ER Attending Dr: Copies to: Ramiro [...] Ivonne Zavala M.D.03/03/2023 12:46 PM Dictation Location: [place] [address] Transcribed By: [facility] 03/03/23 1246 Dictated By: Ivonne Zavala MD 03/03/23 1245 Signed By: 03/03/23 1246 Normal [facility] CBC AUTO DIFFon 01-11-2023 BASO # 0.0 103/ul Normal 0.0-0.1 [facility] Comment on above: Performed By: #### C BC #### [facility] [address] [place] [address] Dr. Andrea Garcia Basophils/100 WBC (Bld) 0.0 % Critically low 0.2-2.0 [facility] Comment on above: Performed By: #### C BC #### [facility] [address] [place] [address] Dr. Andrea Garcia EO # 0.0 103/ul Normal 0.0-0.7 [facility] Comment on above: Performed By: #### C BC #### [facility] [address] [place] [address] Dr. Andrea Garcia Eosinophils/100 WBC (Bld) 0.0 % Critically low 0.9-7.0 [facility] Comment on above: Performed By: #### C BC #### [facility] [address] [place] [address] Dr. Andrea Garcia Erythrocyte distribution width (RBC) [Ratio] 12.8 % Normal 11.0-15.0 [facility] Comment on above: Performed By: #### C BC #### [facility] [address] [place] [address] Dr. Andrea Garcia Hematocrit (Bld) [Volume fraction] 36.2 % Critically low 42.0-54.0 [facility] Comment on above: Performed By: #### C BC #### [facility] [address] [place] [address] Dr. Andrea Garcia Hemoglobin (Bld) [Mass/Vol] 12.8 g/dL Critically low 14.0-18.0 [facility] Comment on above: Performed By: #### C BC #### [facility] [address] [place] [address] Dr. Andrea Garcia IG # 0.03 10e3/ul Normal 0.00-0.03 [facility] Comment on above: Performed By: #### C BC #### [facility] [address] [place] [address] Dr. Andrea Garcia IG % 0.4 % Normal 0.0-0.5 [facility] Comment on above: Performed By: #### C BC #### [facility] [address] [place] [address] Dr. Andrea Garcia LYMPH # 1.1 103/ul Critically low 1.2-3.8 [facility] Comment on above: Performed By: #### C BC #### [facility] [address] [place] [address] Dr. Andrea Garcia Lymphocytes/100 WBC (Bld) 15.3 % Critically low 20.5-60.0 [facility] Comment on above: Performed By: #### C BC #### [facility] [address] [place] [address] Dr. Andrea Garcia MANUAL DIFF REQ NO Normal [facility] Comment on above: Performed By: #### C BC #### [facility] [address] [place], [place] [id number] Dr. Andrea Garcia MCH (RBC) [Entitic mass] 31.3 pg Normal 25.9-34.0 [facility] Comment on above: Performed By: #### C BC #### [facility] [address] [place] [address] Dr. Andrea Garcia MCHC (RBC) [Mass/Vol] 35.4 g/dL Critically high 29.9-35.2 [facility] Comment on above: Performed By: #### C BC #### [facility] [address] [place] [address] Dr. Andrea Garcia MCV (RBC) [Entitic vol] 88.5 fL Normal 80.0-94.0 [facility] [facility] Comment on above: Performed By: #### C BC #### [facility] [address] [place] [address] Dr. Andrea Garcia MONO # 0.1 103/ul Critically low 0.3-0.8 [facility] Comment on above: Performed By: #### C BC #### [facility] [address] [place] [address] Dr. Andrea Garcia Monocytes/100 WBC (Bld) 0.7 % Critically low 1.7-12.0 [facility] Comment on above: Performed By: #### C BC #### [facility] [address] [place] [address] Dr. Andrea Garcia NEUT # 6.0 103/ul Normal 1.4-6.5 [facility] Comment on above: Performed By: #### C BC #### [facility] [address] [place] [address] Dr. Andrea Garcia Neutrophils/100 WBC (Bld) 83.6 % Critically high 43.0-75.0 [facility] Comment on above: Performed By: #### C BC #### [facility] [address] [place] [address] Dr. Andrea Garcia Platelet mean volume (Bld) [Entitic vol] 10.1 fL Normal 9.5-13.5 [facility] Comment on above: Performed By: #### C BC #### [facility] [address] [place] [address] Dr. Andrea Garcia PLT 216 103/ul Normal 150-450 [facility] Comment on above: Performed By: #### C BC #### [facility] [address] [place] [address] Dr. Andrea Garcia RBC 4.09 106/ul Critically low 4.70-6.10 [facility] Comment on above: Performed By: #### C BC #### [facility] [address] [place] [address] Dr. Andrea Garcia WBC 7.2 103/ul Normal 4.0-11.0 [facility] Comment on above: Performed By: #### C BC #### [facility] [address] [place] [address] Dr. Andrea Garcia PROF 14(COMP METB)on 023 Albumin [Mass/Vol] 2.8 g/dL Critically low 3.4-5.0 [facility] Comment on above: Performed By: #### C MP #### [facility] [address] [place] [address] Dr. Andrea Garcia Albumin/Globulin [Mass ratio] 0.8 {ratio} Normal [facility] Comment on above: Performed By: #### C MP #### [facility] [address] [place] [address] Dr. Andrea Garcia ALP [Catalytic activity/Vol] 64 U/L Normal 46-116 [facility] Comment on above: Performed By: #### C MP #### [facility] [address] [place] [address] Dr. Andrea Garcia ALT [Catalytic activity/Vol] 27 U/L Normal 16-63 [facility] Comment on above: Performed By: #### C MP #### [facility] [address] [place] [address] Dr. Andrea Garcia Anion gap [Moles/Vol] 12.9 mmol/L Normal [facility] Comment on above: Performed By: #### C MP #### [facility] [address] [place] [address] Dr. Andrea Garcia AST [Catalytic activity/Vol] 16 U/L Normal 15-37 [facility] Comment on above: Performed By: #### C MP #### [facility] [address] [address] [address] Andrea Garcia Bilirubin [Mass/Vol] 0.4 mg/dL Normal 0.2-1.0 [facility] Comment on above: Performed By: #### C MP #### [facility] [address] [address] [address] Andrea Garcia Calcium [Mass/Vol] 8.2 mg/dL Critically low 8.5-10.1 Th e [facility] Comment on above: Performed By: #### C MP #### [facility] [address] [place] [address] Dr. Andrea Garcia Chloride [Moles/Vol] 107 mmol/L Normal 98-107 [facility] Comment on above: Performed By: #### C MP #### [facility] [address] [place] [address] Dr. Andrea Garcia CO2 [Moles/Vol] 24.2 mmol/L Normal 21.0-32.0 [facility] Comment on above: Performed By: #### C MP #### [facility] [address] [place] [address] Dr. Andrea Garcia Creatinine [Mass/Vol] 1.07 mg/dL Normal 0.70-1.30 [facility] Comment on above: Performed By: #### C MP #### [facility] [address] [place] [address] Dr. Andrea Garcia EGFR-AF SWEDISH >60 Normal >=60 [facility] Comment on above: Performed By: #### C MP #### [facility] [address] [place] [address] Dr. Andrea Garcia EGFR-NON AF SWEDISH >60 Normal >=60 [facility] Comment on above: Performed By: #### C MP #### [facility] [address] [place] [address] Dr. Andrea Garcia Globulin (S) [Mass/Vol] 3.5 g/dL Normal [facility] Comment on above: Performed By: #### C MP #### [facility] [address] [address] [address] Andrea Garcia Glucose [Mass/Vol] 164 mg/dL Critically high 74-106 [facility] Comment on above: Performed By: #### C MP #### [facility] [address] [address] [address] Andrea Garcia Potassium [Moles/Vol] 4.1 mmol/L Normal 3.5-5.1 [facility] Comment on above: Performed By: #### C MP #### [facility] [address] [address] [address] Andrea Garcia Protein [Mass/Vol] 6.3 g/dL Critically low 6.4-8.2 [facility] Comment on above: Performed By: #### C MP #### [facility] [address] [address] [address] Andrea Garcia Sodium [Moles/Vol] 140 mmol/L Normal 136-145 [facility] Comment on above: Performed By: #### C MP #### [facility] [address] [address] [address] Andrea Garcia Urea nitrogen [Mass/Vol] 16.0 mg/dL Normal 7.0-18.0 [facility] Comment on above: Performed By: #### C MP #### [facility] [address] [address] [address] Andrea Garcia Urea nitrogen/Creatinine [Mass ratio] 15.0 mg/mg Normal [facility] Comment on above: Performed By: #### C MP #### [facility] [address] [address] [address] Andrea Garcia XR KUB 1 VIEWon [...] ROBERT DAVENPORT Date: 2023-01-11 06:56 Normal [facility] AMYLASEon 01-10-2023 Amylase [Catalytic activity/Vol] 56 U/L Normal 25-115 [facility] Comment on above: Performed By: #### C MADM, CMP, DAMIEN, LIPA ####[facility] [address] [address]Dr. Andrea Garcia CARDIAC JEB 3-6on 3 CK [Catalytic activity/Vol] 92 U/L Normal 39-308 [facility] Comment on above: Performed By: #### C MREP #### [facility] [address] [address] [address] Andrea RUBALCAVA.MB [Mass/Vol] 1.66 ng/mL Normal <=3.60 [facility] Comment on above: Performed By: #### C MREP #### [facility] [address] [place] [address] Dr. Andrea Garcia HSTROP 12.8 pg/mL Normal 4.0-76.1 [facility] Comment on above: Result Comment: CUT- OFF POINTS HAVE BEEN ESTABLISHED BASED ON THE FOURTH UNIVERSAL DEFINITIONS OF MYOCARDIAL INFARCTION. THE UPPER REFERENCE LIMIT (URL) OF TROPONIN, DEFINED THE 99TH PERCENTILE OF cTnI DISTRIBUTION IN A REFERENCE POPULATION, HAS BEEN CONFIRMED THE DECISION THRESHOLD FOR LA DIAGNOSIS. Performed By: #### C MREP #### [facility] [address] [place] [address] Dr. Andrea Garcia CK [Catalytic activity/Vol] 72 U/L Normal 39-308 [facility] Comment on above: Performed By: #### C MREP #### [facility] [address] [address] [address] Andrea RUBALCAVA.MB [Mass/Vol] 1.89 ng/mL Normal <=3.60 [facility] Comment on above: Performed By: #### C MREP #### [facility] [address] [place] [address] Dr. Andrea Garcia HSTROP 13.5 pg/mL Normal 4.0-76.1 [facility] Comment on above: Result Comment: CUT- OFF POINTS HAVE BEEN ESTABLISHED BASED ON THE FOURTH UNIVERSAL DEFINITIONS OF MYOCARDIAL INFARCTION. THE UPPER REFERENCE LIMIT (URL) OF TROPONIN, DEFINED THE 99TH PERCENTILE OF cTnI DISTRIBUTION IN A REFERENCE POPULATION, HAS BEEN CONFIRMED THE DECISION THRESHOLD FOR LA DIAGNOSIS. Performed By: #### C MREP #### [facility] [address] [place], [place] [address] Dr. Andrea Garcia CARDIAC JEB ADMITon 023 CK [Catalytic activity/Vol] 85 U/L Normal 39-308 [facility] Comment on above: Performed By: #### C MADM, CMP, DAMIEN, LIPA ####[facility] [address] [address]DrWilder Garcia CK.MB [Mass/Vol] 1.80 ng/mL Normal <=3.60 [facility] Comment on above: Performed By: #### C MADM, CMP, DAMIEN, LIPA ####[facility] [address] [address]DrWilder Garcia HSTROP 15.7 pg/mL Normal 4.0-76.1 [facility] Comment on above: Result Comment: CUT- OFF POINTS HAVE BEEN ESTABLISHED BASED ON THE FOURTH UNIVERSAL DEFINITIONS OF MYOCARDIAL INFARCTION. THE UPPER REFERENCE LIMIT (URL) OF TROPONIN, DEFINED THE 99TH PERCENTILE OF cTnI DISTRIBUTION IN A REFERENCE POPULATION, HAS BEEN CONFIRMED THE DECISION THRESHOLD FOR LA DIAGNOSIS. Performed By: #### C MADM, CMP, DAMIEN, LIPA ####[facility] [address] [address]DrWilder Garcia MIQUEL 61 ng/mL Normal 16-96 [facility] Comment on above: Performed By: #### C MADM, CMP, DAMIEN, LIPA ####[facility] [address] [address]DrWilder Garcia CBC AUTO DIFFon 01-10-2023 BASO # 0.0 103/ul Normal 0.0-0.1 [facility] Comment on above: Performed By: #### C BC ####[facility] [address] [address]DrWilder Garcia Basophils/100 WBC (Bld) 0.5 % Normal 0.2-2.0 [facility] Comment on above: Performed By: #### C BC ####[facility] [address] [place], [place] [id number]. Andrea Garcia EO # 0.4 103/ul Normal 0.0-0.7 [facility] Comment on above: Performed By: #### C BC ####[facility] [address] [place], [place] [address]Dr. Andrea Garcia Eosinophils/100 WBC (Bld) 5.9 % Normal 0.9-7.0 [facility] Comment on above: Performed By: #### C BC ####[facility] [address] [place], [place] [address]Dr. Andrea Garcia Erythrocyte distribution width (RBC) [Ratio] 13.0 % Normal 11.0-15.0 [facility] Comment on above: Performed By: #### C BC ####[facility] [address] [place], [place] [address]Dr. Andrea Garcia Hematocrit (Bld) [Volume fraction] 40.0 % Critically low 42.0-54.0 [facility] Comment on above: Performed By: #### C BC ####[facility] [address] [place], [place] [address]Dr. Andrea Garcia Hemoglobin (Bld) [Mass/Vol] 13.4 g/dL Critically low 14.0-18.0 [facility] Comment on above: Performed By: #### C BC ####[facility] [address] [place], [place] [address]Dr. Andrea Garcia IG # 0.01 10e3/ul Normal 0.00-0.03 [facility] Comment on above: Performed By: #### C BC ####[facility] [address] [place], [place] [address]Dr. Andrea Garcia IG % 0.2 % Normal 0.0-0.5 [facility] Comment on above: Performed By: #### C BC ####[facility] [address] [place], [place] [address]Dr. Andrea Garcia LYMPH # 2.2 103/ul Normal 1.2-3.8 [facility] Comment on above: Performed By: #### C BC ####[facility] [address] [address]Dr. Andrea Garcia Lymphocytes/100 WBC (Bld) 33.2 % Normal 20.5-60.0 [facility] Comment on above: Performed By: #### C BC ####[facility] [address] [address]Dr. Andrea Garcia MANUAL DIFF REQ NO Normal [facility] Comment on above: Performed By: #### C BC ####[facility] [address] [address]Dr. Andrea Garcia MCH (RBC) [Entitic mass] 30.5 pg Normal 25.9-34.0 [facility] Comment on above: Performed By: #### C BC ####[facility] [address] [place], [place] [address]Dr. Andrea Garcia MCHC (RBC) [Mass/Vol] 33.5 g/dL Normal 29.9-35.2 [facility] Comment on above: Performed By: #### C BC ####[facility] [address] [place], [place] [address]Dr. Andrea Garcia MCV (RBC) [Entitic vol] 90.9 fL Normal 80.0-94.0 [facility] Comment on above: Performed By: #### C BC ####[facility] [address] [place], [place] [address]Dr. Andrea Garcia MONO # 0.4 103/ul Normal 0.3-0.8 [facility] Comment on above: Performed By: #### C BC ####[facility] [address] [place], [place] [address]Dr. Andrea Garcia Monocytes/100 WBC (Bld) 6.0 % Normal 1.7-12.0 [facility] Comment on above: Performed By: #### C BC ####[facility] [address] [place], [place] [address]Dr. Andrea Garcia NEUT # 3.5 103/ul Normal 1.4-6.5 [facility] Comment on above: Performed By: #### C BC ####[facility] [address] [address]Dr. Andrea Garcia Neutrophils/100 WBC (Bld) 54.2 % Normal 43.0-75.0 [facility] Comment on above: Performed By: #### C BC ####[facility] [address] [address]Dr. Andrea Garcia Platelet mean volume (Bld) [Entitic vol] 9.7 fL Normal 9.5-13.5 [facility] Comment on above: Performed By: #### C BC ####[facility] [address] [address]Dr. Andrea Garcia PLT 225 103/ul Normal 150-450 [facility] Comment on above: Performed By: #### C BC ####[facility] [address] [address]Dr. Andrea Garcia RBC 4.40 106/ul Critically low 4.70-6.10 [facility] Comment on above: Performed By: #### C BC ####[facility] [address] [address]Dr. Andrea Garcia WBC 6.5 103/ul Normal 4.0-11.0 [facility] Comment on above: Performed By: #### C BC ####[facility] [address] [address] ABD/PELV W CONon 01-11-20 [...] by: ADITYA OATES Date: 2023-01-10 07:41 Normal [facility] CULTURE BLOODon 01-10-2023 Microscopic examination of blood, culture Culture Observations: NO GROWTH AT 36-48 HOURS. FINAL TO FOLLOW. Normal [facility] Comment on above: Performed By: #### B LDCX2 ####[facility] [address] [address]Dr. Andrea Garcia Microscopic examination of blood, culture Culture Observations: NO GROWTH AT 36-48 HOURS. FINAL TO FOLLOW. Normal [facility] Comment on above: Performed By: #### B LDCX1 ####[facility] [address] [address]Dr. Andrea Garcia ER URINE PROFILEon 3 Bilirubin Ql (U) Negative Normal NEGATIVE [facility] Comment on above: Performed By: #### U MICRO, ERUR #### [facility] [address] [address] [address] Andrea Garcia Clarity (U) CLEAR Normal CLEAR [facility] Comment on above: Performed By: #### U MICRO, ERUR #### [facility] [address] [address] [address] Andrea Garcia Color (U) LT. YELLOW Normal YELLOW [facility] Comment on above: Performed By: #### U MICRO, ERUR #### [facility] [address] [address] [address] Andrea GALLEGOS A micrscopic examina tion will be performed if indicated. Normal [facility] Comment on above: Performed By: #### U MICRO, ERUR #### [facility] [address] [address] [address] Andrea Garcia Glucose Ql (U) Negative Normal NEGATIVE [facility] Comment on above: Performed By: #### U MICRO, ERUR #### [facility] [address] [address] [address] Andrea Garcia Hemoglobin Ql (U) TRACE-INTACT Abnormal NEGATIVE [facility] Comment on above: Performed By: #### U MICRO, ERUR #### [facility] [address] [place] [address] Dr. Andrea Garcia Ketones Ql (U) Negative Normal NEGATIVE [facility] Comment on above: Performed By: #### U MICRO, ERUR #### [facility] [address] [place] [address] Dr. Andrea Garcia LEUKOCYTES Negative Normal NEGATIVE [facility] Comment on above: Performed By: #### U MICRO, ERUR #### [facility] [address] [place] [address] Dr. Andrea Garcia Nitrite Ql (U) Negative Normal NEGATIVE [facility] Comment on above: Performed By: #### U MICRO, ERUR #### [facility] [address] [place] [address] Dr. Andrea Garcia pH (U) 5.5 [pH] Normal 5-9 [facility] Comment on above: Performed By: #### U MICRO, ERUR #### [facility] [address] [place] [address] Dr. Andrea Garcia SPEC GRAVITY 1.015 Normal 1.005-<=1. 025 [facility] Comment on above: Performed By: #### U MICRO, ERUR #### [facility] [address] [place] [address] Dr. Andrea Garcia UA PROTEIN Negative Normal NEGATIVE/ TRACE [facility] Comment on above: Performed By: #### U MICRO, ERUR #### [facility] [address] [place] [address] Dr. Andrea Garcia UR MICRO IND INDICATED Normal [facility] Comment on above: Performed By: #### U MICRO, ERUR #### [facility] [address] [address] [address] Andrea Garcia Urobilinogen Qn (U) 0.2 {Temo'U}/dL Normal 0.2 - 1. 0 [facility] Comment on above: Performed By: #### U MICRO, ERUR #### [facility] [address] [place] [address] Dr. Andrea Garcia LACTATE/LACTIC ACIDon 2022 Lactate [Moles/Vol] 0.8 mmol/L Normal 0.4-2.0 [facility] Comment on above: Performed By: #### L ACT #### [facility] [address] [place] [address] Dr. Andrea Garcia Lactate [Moles/Vol] 0.9 mmol/L Normal 0.4-2.0 [facility] Comment on above: Performed By: #### L ACT #### [facility] [address] [place] [address] Dr. Andrea Garcia LIPASEon 01-10-2023 Lipase [Catalytic activity/Vol] 71.0 U/L Critically low 73.0-393.0 [facility] Comment on above: Performed By: #### C MADM, CMP, DAMIEN, LIPA ####[facility] [address] [address]Dr. Andrea Garcia PROF 14(COMP METB)on 023 Albumin [Mass/Vol] 3.2 g/dL Critically low 3.4-5.0 Th e [facility] Comment on above: Performed By: #### C MADM, CMP, DAMIEN, LIPA ####[facility] [address] [address]Dr. Andrea Garcia Albumin/Globulin [Mass ratio] 0.9 {ratio} Normal [facility] Comment on above: Performed By: #### C MADM, CMP, DAMIEN, LIPA ####[facility] [address] [address]Dr. Andrea Garcia ALP [Catalytic activity/Vol] 68 U/L Normal 46-116 [facility] Comment on above: Performed By: #### C MADM, CMP, DAMIEN, LIPA ####[facility] [address] [address]Dr. Andrea Garcia ALT [Catalytic activity/Vol] 30 U/L Normal 16-63 [facility] Comment on above: Performed By: #### C MADM, CMP, DAMIEN, LIPA ####[facility] [address] [address]Dr. Andrea Garcia Anion gap [Moles/Vol] 14.2 mmol/L Normal Th e [facility] Comment on above: Performed By: #### C MADM, CMP, DAMIEN, LIPA ####[facility] [address] [address]Dr. Andrea Garcia AST [Catalytic activity/Vol] 18 U/L Normal 15-37 [facility] Comment on above: Performed By: #### C MADM, CMP, DAMIEN, LIPA ####[facility] [address] [address]Dr. Andrea Garcia Bilirubin [Mass/Vol] 0.5 mg/dL Normal 0.2-1.0 [facility] Comment on above: Performed By: #### C MADM, CMP, DAMIEN, LIPA ####[facility] [address] [place], [place] [address]Dr. Andrea Garcia Calcium [Mass/Vol] 8.5 mg/dL Normal 8.5-10.1 [facility] Comment on above: Performed By: #### C MADM, CMP, DAMIEN, LIPA ####[facility] [address] [address]Dr. Andrea Garcia Chloride [Moles/Vol] 108 mmol/L Critically high 98-107 [facility] Comment on above: Performed By: #### C MADM, CMP, DAMIEN, LIPA ####[facility] [address] [address]Dr. Yilan Garcia CO2 [Moles/Vol] 22.1 mmol/L Normal 21.0-32.0 [facility] Comment on above: Performed By: #### C MADM, CMP, DAMIEN, LIPA ####[facility] [address] [address]Dr. Andrea Garcia Creatinine [Mass/Vol] 1.06 mg/dL Normal 0.70-1.30 [facility] Comment on above: Performed By: #### C MADM, CMP, DAMIEN, LIPA ####[facility] [address] [address]Dr. Andrea Garcia EGFR-AF SWEDISH >60 Normal >=60 [facility] Comment on above: Performed By: #### C MADM, CMP, DAMIEN, LIPA ####[facility] [address] [address]Dr. Andrea Garcia EGFR-NON AF SWEDISH >60 Normal >=60 [facility] Comment on above: Performed By: #### C MADAnalilia, CMP, DAMIEN, LIPA ####[facility] [address] [place], [place] [address]Dr. Andrea Garcia Globulin (S) [Mass/Vol] 3.5 g/dL Normal [facility] Comment on above: Performed By: #### C MADAnalilia, CMP, DAMIEN, LIPA ####[facility] [address] [address]Dr. Andrea Garcia Glucose [Mass/Vol] 110 mg/dL Critically high 74-106 T [facility] Comment on above: Performed By: #### C MADM, CMP, DAMIEN, LIPA ####[facility] [address] [address]Dr. Andrea Garcia Potassium [Moles/Vol] 4.3 mmol/L Normal 3.5-5.1 [facility] Comment on above: Performed By: #### C MADM, CMP, DAIMEN, LIPA ####[facility] [address] [address]Dr. Andrea Garcia Protein [Mass/Vol] 6.7 g/dL Normal 6.4-8.2 [facility] Comment on above: Performed By: #### C MADM, CMP, DAMIEN, LIPA ####[facility] [address] [address]Dr. Andrea Garcia Sodium [Moles/Vol] 140 mmol/L Normal 136-145 [facility] Comment on above: Performed By: #### C MADM, CMP, DAMIEN, LIPA ####[facility] [address] [address]Dr. Andrea Garcia Urea nitrogen [Mass/Vol] 20.0 mg/dL Critically high 7.0-18.0 [facility] Comment on above: Performed By: #### C MADM, CMP, DAMIEN, LIPA ####[facility] [address] [address]Dr. Andrea Garcia Urea nitrogen/Creatinine [Mass ratio] 18.9 mg/mg Normal [facility] Comment on above: Performed By: #### C MADM, CMP, DAMIEN, LIPA ####[facility] [address] [address]Dr. Andrea Garcia URINE MICROSCOPIC ONLYon BACTERIA NONE SEEN Normal NONE SEEN [facility] Comment on above: Performed By: #### U MICRO, ERUR #### [facility] [address] [place] [address] Dr. Andrea Garcia Bacteria identified Cx Nom (U) NOT INDICATED Normal [facility] Comment on above: Performed By: #### U MICRO, ERUR #### [facility] [address] [address] [address] Andrea Garcia CAST NONE SEEN Normal NONE SEEN [facility] Comment on above: Performed By: #### U MICRO, ERUR #### [facility] [address] [address] [address] Andrea Garcia Crystals LM Nom (Urine sed) NONE SEEN Normal NONE SEEN [facility] Comment on above: Performed By: #### U MICRO, ERUR #### [facility] [address] [address] [address] Andrea Garcia Epithelial cells LM Ql (Urine sed) NONE SEEN Normal NONE SEEN /RARE [facility] Comment on above: Performed By: #### U MICRO, ERUR #### [facility] [address] [address] [address] Andrea Garcia MUCOUS NONE SEEN Normal NONE SEEN [facility] Comment on above: Performed By: #### U MICRO, ERUR #### [facility] [address] [address] [address] Andrea Garcia RBC 0-2 Normal 0-2 [facility] Comment on above: Performed By: #### U MICRO, ERUR #### [facility] [address] [address] [address] Andrea Garcia WBC 0-2 Abnormal NONE SEEN [facility] Comment on above: Performed By: #### U MICRO, ERUR #### [facility] [address] [address] [address] Andrea Garcia XR CHEST 1 Von 01-10-2023 XR CHEST 1 V Exam: Radiographs: X R CHEST 1 V Reason for exam: Nausea/vomiting Comparison: None IMPRESSION: Negative chest. Electronically authenticated by: ADITYA OATES Date: 2023-01-10 07:42 Normal [facility] MRI Soft Tissue Neck w/o + w [...] by KENN RAPHAEL on 10/06/2021 1605 Normal [facility] Specialist CT Soft Tissue Neck w/ [...] by Que [place] on 09/29/2021 1013 Normal [facility] Specialist Vital Signs Date Time Vital Sign Value Performing Clinician Faci lity 04-17-2025 10:[id number] Body height 187.96 cm Rodriguez Godwin MD Work Phone: [facility] 04-17-2025 10:04-0400 Body mass index (BMI) [Ratio] 23.8 kg/m2 Rodriguez Godwin MD Work Phone: [facility] 04-17-2025 10:04-0400 Body weight 84.36 kg Rodriguez Godwin MD Work Phone: [facility] 04-17-2025 10:04-0400 Diastolic blood pressure 76 mm[Hg] Rodriguez Godwin MD Work Phone: [facility] 04-17-2025 10:04-0400 Heart rate 74 /min Rodriguez Godwin MD Work Phone: [facility] 04-17-2025 10:04-0400 Respiratory rate 18 /min Rodriguez Godwin MD Work Phone: [facility] 04-17-2025 10:04-0400 SaO2% (BldA) [Mass fraction] 95 % Rodriguez Godwin MD Work Phone: [facility] 04-17-2025 10:04-0400 Systolic blood pressure 112 mm[Hg] Rodriguez Godwin MD Work Phone: [facility] 01-30-2025 09:02-0400 Body weight 84.08 kg Rodriguez Godwin MD Work Phone: [facility] 01-30-2025 09:02-0400 Diastolic blood pressure 72 mm[Hg] Rodriguez Godwin MD Work Phone: [facility] 01-30-2025 09:02-0400 Heart rate 74 /min Rodriguez Godwin MD Work Phone: [facility] 01-30-2025 09:02-0400 SaO2% (BldA) [Mass fraction] 95 % Rodriguez Godwin MD Work Phone: [facility] 01-30-2025 09:02-0400 Systolic blood pressure 138 mm[Hg] Rodriguez Godwin MD Work Phone: [facility] 09-19-2024 08:42-0500 Body mass index (BMI) [Ratio] 24.11 kg/m2 Maribel Bojorquez DO Work Phone: [facility] 09-19-2024 08:42-0500 Body weight 85.19 kg Maribel Bojorquez DO Work Phone: [facility] 09-19-2024 08:42-0500 Diastolic blood pressure 76 mm[Hg] Treopher Reno DO Work Phone: [facility] 09-19-2024 08:42-0500 Heart rate 78 /min Christopher Reno DO Work Phone: [facility] 09-19-2024 08:42-0500 SaO2% (BldA) [Mass fraction] 96 % Treopher Reno DO Work Phone: [facility] 09-19-2024 08:42-0500 Systolic blood pressure 142 mm[Hg] Christopher Reno DO Work Phone: [facility] 01-09-2024 19:01-0400 Diastolic blood pressure 99 mm[Hg] MD Rodriguez Godwin Work Phone: [facility] 01-09-2024 19:01-0400 Heart rate 84 /min MD Rodriguez Godwin Work Phone: [facility] 01-09-2024 19:01-0400 Respiratory rate 18 /min MD Rodriguez Godwin Work Phone: [facility] 01-09-2024 19:01-0400 SaO2% (BldA) [Mass fraction] 97 % MD Rodriguez Godwin Work Phone: [facility] 01-09-2024 19:01-0400 Systolic blood pressure 190 mm[Hg] MD Rodriguez Godwin Work Phone: [facility] 01-09-2024 14:29-0400 Body height 187.96 cm MD Rodriguez Godwin Work Phone: [facility] 01-09-2024 14:29-0400 Body temperature 98.3 [degF] MD Rodriguez Godwin Work Phone: [facility] 01-09-2024 14:29-0400 Body weight 83 kg MD Rodriguez Godwin Work Phone: [facility] 12-18-2023 13:10-0400 Heart rate 85 /min MD Rodriguez Godwin Work Phone: [facility] 12-18-2023 13:09-0400 Body temperature 97.9 [degF] MD Rodriguez Godwin Work Phone: [facility] 12-18-2023 13:09-0400 Diastolic blood pressure 77 mm[Hg] MD Rodriguez Godwin Work Phone: [facility] 12-18-2023 13:09-0400 Respiratory rate 18 /min MD Rodriguez Godwin Work Phone: [facility] 12-18-2023 13:09-0400 SaO2% (BldA) [Mass fraction] 97 % MD Rodriguez Godwin Work Phone: [facility] 12-18-2023 13:09-0400 Systolic blood pressure 161 mm[Hg] MD Rodriguez Godwin Work Phone: [facility] 12-18-2023 13:06-0400 Body height 186.69 cm MD Rodriguez Godwin Work Phone: [facility] 12-18-2023 13:06-0400 Body weight 81 kg MD Rodriguez Godwin Work Phone: [facility] 03-03-2023 13:30-0400 Diastolic blood pressure 100 mm[Hg] MD Rodriguez Godwin Work Phone: [facility] 03-03-2023 13:30-0400 Heart rate 59 /min MD Rodriguez Godwin Work Phone: [facility] 03-03-2023 13:30-0400 Respiratory rate 18 /min MD Rodriguez Godwin Work Phone: [facility] 03-03-2023 13:30-0400 SaO2% (BldA) [Mass fraction] 99 % MD Rodriguez Godwin Work Phone: [facility] 03-03-2023 13:30-0400 Systolic blood pressure 160 mm[Hg] MD Rodriguez Godwin Work Phone: [facility] 03-03-2023 11:36-0400 Body height 175.26 cm MD Rodriguez Godwin Work Phone: [facility] 03-03-2023 11:36-0400 Body temperature 98 [degF] MD Rodriguez Godwin Work Phone: [facility] 03-03-2023 11:36-0400 Body weight 84.3 kg MD Rodriguez Godwin Work Phone: [facility] Encounters Encounter Date Encounter Type Care Provider Facility Start: 04-17-2025 End: 04-17-2025 ambulatory Rodriguez Godwin MD Work Phone: [facility] Work Phone: Start: 04-17-2025 End: 04-17-2025 [facility] Start: 01-30-2025 Non-patient / Non-visit Santa Ocampo [facility] Work Phone: Start: 01-30-2025 End: 01-30-2025 Patient encounter procedure Trevannessa Reno [facility] [place] Work Phone: Start: 01-29-2025 Non-patient / Non-visit Santaromi Ocampo [facility] Work Phone: Start: 01-22-2025 End: 01-22-2025 Lab Drop off Frankie HOLLINS [facility] Start: 01-22-2025 End: 01-22-2025 ambulatory Frankie HOLLINS Facility:[facility] Start: 01-22-2025 End: 01-22-2025 Patient encounter procedure Frankie HOLLINS [facility] [place] Start: 01-15-2025 ambulatory Jaun BRADSHAW Facility:[facility] Start: 01-15-2025 End: 01-15-2025 ambulatory [facility] Start: 12-17-2024 End: 12-17-2024 ambulatory Jaun BRADSHAW Facility:[id number] Start: 12-11-2024 End: 12-11-2024 ambulatory Jaun BRADSHAW Facility:[facility] Start: 11-27-2024 ambulatory Jaun BRADSHAW Facility:[facility] Start: 11-14-2024 End: 11-14-2024 ambulatory [facility] Start: 11-05-2024 End: 11-05-2024 ambulatory CHRISTOPHER RENO Not Available Start: 10-02-2024 End: 10-02-2024 ambulatory CHRISTOPHER RENO Not Available Start: 09-24-2024 End: 09-24-2024 ambulatory [facility] Start: 09-19-2024 End: 09-19-2024 Bamboo flowsheet Christopher [...] 08-09-2024 Emergency department patient visit SHIV DICKERSON [facility] Start: 04-06-2024 End: 04-06-2024 ambulatory [facility] Start: 01-09-2024 End: 01-09-2024 Emergency department patient visit Rodriguez Godwin Facility:[facility] Start: 01-09-2024 End: 01-09-2024 Emergency department patient visit MD Rodriguez Godwin Work Phone: [facility] Work Phone: Start: 12-18-2023 End: 12-18-2023 Emergency department patient visit Marie Phil Meli Facility:[facility] Start: 12-18-2023 End: 12-18-2023 Emergency department patient visit MD Rodriguez Godwin Work Phone: [facility] Work Phone: Start: 03-03-2023 End: 03-03-2023 Emergency department patient visit Ramiro Cortez Facility:[facility] Start: 03-03-2023 End: 03-03-2023 Emergency department patient visit MD Rodriguez Godwin Work Phone: [facility] Work Phone: Start: 01-10-2023 [...] 9:00 AM EDT Office Visit MONA [place] [address] [place] [id number] Maribel Bojorquez DO [address] [place] [address] [place] Start: 09-20-2024 End: 09-20-2024 Clinical Support 09/20/2024 8:45 AM EST Clinical Support MONA [place] [address] [place] [phone] MONA [place] Start: 09-19-2024 End: 09-19-2025 EEG, Including Recording Awake or Asleep EEG, Including Recording Awake or Asleep Neurology Routine Loss of consciousness (CMS/HCC) Expected: 09/19/2024 (Approximate), Expires: 09/19/2025 [facility] Work Phone: Comment on above: Expected: 09/19/2024 (Approximate), Expires: 09/19/2025 Start: 09-19-2024 End: 09-19-2024 Patient encounter procedure 09/19/2024 9:00 AM EST Office Visit MONA SANDOVAL [address] [place] [phone] Maribel Bojorquez DO [address] [facility] [place], [place] [id number] Arrived MONA SANDOVAL Comment on above: Arrived Start: 04-15-2024 Influenza vaccination Influenza Vacc ine (#1) [facility] Start: 12-18-2023 [facility] Start: 2014 Pneumococcal Vaccine : 65+ Years (1 of 1 - PCV) Pneumococcal Vaccine: 65+ Years (1 of 1 - PCV) [facility] Start: 1950 Screening for malign ant neoplasm of colon [facility] Patient Education [facility] Work Phone: Patient referral [facility] Work Phone: Immunizations Immunization Date Immunization Notes Care Provider Fa malika 10-12-2023 hepatitis B vaccine, adult dosage Frankie HOLLINS [facility] 09-21-2023 influenza virus vaccine, unspecified formulation Maribel Bojorquez DO Work Phone: [facility] 09-14-2023 tetanus toxoid, reduced diphtheria toxoid, and acellular pertussis vaccine, adsorbed Frankie CURRIEL [facility] 09-10-2020 SARS-CoV-2 (COVID-19 ) mRNA-1273 vaccine Frankie NILL [facility] 08-13-2020 SARS-CoV-2 (COVID-19 ) mRNA-1273 vaccine Frankie CURRIEL [facility] Payers Date Payer Category Payer Medicare [id number] 2023 Medicare (Managed Care) JOSÉ MIGUELA M [employer]ICARE ADVANTAGE [id number] 2023 Self-pay [id number] 2022 Unknown [id number] 1960 Medicare [id number] 1950 Unknown [id number] [id number]. 2.593 1949 Unknown [id number] 2.16.840.1.380901.3.579. 2.1286 1949 Unknown [id number] .[id number]. 2.1259 1949 Unknown [id number] 2.16.840.1.291015.3.579. 2.1259 1949 Unknown [id number] 2.16.840.1.576748.3.579. 2.1259 1949 Unknown [id number] 2.16.840.1.307935.3.579. 2.727 1949 Unknown [id number] 2.16.840.1.542913.3.579. 2.727 1949 Unknown [id number] 2.16.840.1.379040.3.579. 2.727 1949 Unknown [id number] 2.16.840.1.051073.3.579. 2.727 1949 Unknown [id number] 2.16.840.1.200334.3.579. 2.727 1949 Unknown [id number] 2.16.840.1.104231.3.579. 2.727 Unknown [id number] 2.16.840.1.880157.3.579. 2.531 Unknown [id number] 2.16.840.1.331304.3.579. 2.531 Unknown [id number] 2.16.840.1.463544.3.579. 2.531 Social History Date Type Detail Facility Start: 03-03-2023 End: 01-09-2024 Tobacco smoking status COIS Ex-smoker (finding) [facility] Start: 1950 Sex Assigned At [facility] consumption [facility] Start: 1950 Sex assigned at Not on file [facility] Gender identity Not on file [facility] Start: 01-22-2025 Tobacco smoking status Never s moked tobacco (finding) [facility] Tobacco smoking status Never Filomena [facility] [place] Sexual Orientation [facility] [place] Start: 11-26-2009 Sex Male (finding) [facility] Clinical Notes 04-06-2024 to 01-30-2025 Note Date & Type Note Facility 01-30-2025 Evaluation note Diagnosis Onset Date Resolution Atrial flutter acute January 30, 2025 8:59am Loss of consciousness acute Fernando 2024 8:59am Obstructive sleep apnea syndrome noneactive April 17, 025 10:01am [facility] Work Phone: [phone] NoteGeneral Surgery Office/Clinic Note Chief Complaint consultation [...] mRNA-1273 vaccine 09/10/2020 R (more content not included)...[facility]:Result Comment: Electronically Signed By: GUNJAN ADAN, Frankie Cristina\Date and Time Signed: 01/22/25 09:49 [id number] NoteUT Electrophysiology Consult Note Reason for visit: [...] Insecurity: No Food Insecurity (08/09/2024) Received from [facility] Hunger Screening Within the [...] on file Intimate Partner Violence: Unknown (10/07/2023) [place] Safety & Environment Fear of Current or [...] topiramate 50 mg tabl (more content not included)...[facility]04-29-2025 NotePatient Education Oncology Prostate Cancer Screening Prostate [...] Where to find more information ??? The [place] [employer]: www.cancer.org ??? [place] [employer]: www.auanet.org Contact a health care [...] men. The prostate gland (more content not included)...[facility]04-02-2025 NoteUT [facility] Subjective Jeb Riddle is a 74 y.o. [...] was admitted to the hospital at [facility] and was started on anticoagulation therapy. I [...] On 08/31/2024 he was admitted to the [facility] with small bowel obstruction secondary to his [...] evaluated in the emergency room at the [facility] on 11/02/2024 because of episode of near syncope while having bowel movement. Troponin was negative twice, ECG showed sinus rhythm, presentation was suspicious of vasovagal attack he was given intravenous hydration and discharged from the emergency room. Today 11/14/2024 he was evaluated in the emergency room at the [facility] because of dizziness after recent increase in [...] Cardiovascular: Rate and Rhythm: (more content not included)...[facility]02-10-2025 NoteUT Cardiology - [facility] Subjective Jeb Riddle is a 73 [...] was admitted to the hospital at [facility] and was started on anticoagulation therapy. 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 He had taken a Seroquel the night [...] yea rs. 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 LUE Strength deltoid , biceps , triceps , wrist extensors , wrist flexor , wire bender hand strength 5/5. RLE Strength illopsoas, quadriceps, tibialis [...] reflex 2+ . Reese's sign negative. Coordination: Mmffjz-[id number]-fpal testing and rapid alternating movements are normal Gait: Normal Review and summary of old records: CT of the brain without contrast on 08/09/2024 with comparison to 07/14/2022: No acute intracranialpathology I have reviewed notations from [place] emergency department where this 73-year-old patient presented [...] states he had a recent MRI at [facility] that was also unremarkable. He has no [...] plan, and return instructions documented in this encounterCitizens Memorial [id number] NoteUT Cardiology - [facility] Subjective Jeb Riddle is a 73 y.o. year old male patient here for a follow up echo from January, he was amitted to [facility], for chest pain a couple weeks ago and had another echo. He had a lipid panel yesterday. At last appointment his statin was changed. 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 He still rides his bike to [employer] everyday, still active. Patient Active Problem List [...] was admitted to the hospital at [facility] and was started on anticoagulation therapy. Today [...] Rfl: metoprolol succinate XL (more content not included)...[facility] Future Appointments Appointment Date:05/20/2025 09:00:00 AM Scheduled Provider: Location:[facility] LAUREL Jacobs Appointment Type:URO Nurse Visit Appointment Date:05/27/2025 08:45:00 AM Scheduled Provider:Jaun BRADSHAW MD Location:[facility] Appointment Type:URO Office Visit [facility] [place] Evaluation noteNo assessment information available [facility] Work Phone: Evaluation note* Diagnosis Loss of consciousness (CMS/HCC)- Primary Other alteration of consciousness documented in this encounter [facility] Narrative No data available for this section [facility] Hospital Discharge instructions Additional Instructions Continue Pepcid once or twice a day as needed [place] diet Follow-up with your family doctor for recheck Return to the ER for worsening pain shortness of breath fever or any other [facility] Work Phone: Hospital Discharge instructions No data available for this section [facility] Progress note No data available for this section [facility] Reakhq for referral (narrative)No reason for referral information [facility] Work Phone: Renqht for visit Narrative* Consultation (Routine) - Closed Specialty Diagnoses / Procedures Referred By Contac t Referred To Contact Neurology Diagnoses Unspecified convulsions (CMS/HCC) Syncope and collapse Procedures [place] OFFICE/OUTPATIENT NEW LOW MDM 30 MINUTES Rodriguez Godwin MD [address] [place] [address] Phone: tel:[phone] fax: Maribel Bojorquez DO [address] [place] [address] Phone: tel: fax: Referral ID Status Reason Start Date Expiration Date V isits Requested Visits Authorized [id number] Closed Consult and Treat 08/17/2024 02/13/2025 1 [...] and content) DATE CREATED AUTHOR 10/07/2021 [facility] dical Specialist DATE CREATED AUTHOR AUTHOR'S ORGANIZ ATION 01/21/2023 [facility] DATE CREATED AUTHOR AUTHOR'S ORGANIZ ATION 01/09/2024 [facility] DATE CREATED AUTHOR AUTHOR'S ORGANIZ ATION 08/10/2024 [facility] DATE CREATED AUTHOR AUTHOR'S ORGANIZ ATION 11/05/2024 [facility] dical Specialists [facility] DATE CREATED AUTHOR AUTHOR'S ORGANIZ ATION 01/27/2025 [facility] [place] [facility] Center DATE CREATED AUTHOR AUTHOR'S ORGANIZ ATION 01/27/2025 [facility] DATE CREATED AUTHOR AUTHOR'S ORGANIZ ATION 01/28/2025 [facility] [place] [facility] ical Center DATE CREATED AUTHOR AUTHOR'S ORGANIZ ATION 02/01/2025 [facility] Care Teams (unrecognized sec tion and [...] 2025 Team Status: Inactive Member Role Status Edurado Godwin MD Primary Care Provider Active Start: [...] 2024 End: January 09, 2024 Naima Boyd [facility] Emergency Provider Active Start: January 09, 2024 [...] BE BASED ON THE PRIMARY CLINICAL RECORDS. [employer] [facility]. provides no warranty or guarantee of the accuracy or completeness of information in this document.
[2025-04-22 04:00] VITALS: BP 151/82; PULSE 70; TEMP 36.6; O2SAT 93
[2025-04-22] MEDS: LORAZEPAM 0.5 MG TABLET PO (06:53)
[2025-04-22 07:21] VITALS: BP 146/76; PULSE 64; TEMP 36.6; O2SAT 91
--- NOTE | 2025-04-22 08:14 | CM.NOTE ---
Rounds made with Dr. Camilo, pt up ad nahum in room. Pt states pain is controlled with pain medication. Pt denies passing any flatus. Pt will change to inpatient status. Dr. Camilo discussed with pt plan of care. No discharge today.
--- NOTE | 2025-04-22 08:32 | PM.HP ---
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 He came in with worsening abdominal pain, nausea and inability to have a bowel movement for a day or so. No fever or chills. No vomiting. No hematemesis or melena. Patient has had a previous bowel obstruction requiring small bowel resection. Patient is on mesalamine. No chest pain. No shortness of breath. Opioid HPI Opioid Management Most Recent Pain and Opioid Data: Last Pain Scale 3 Today, 07:23 Last Pain Assessment Today, 04:00 Last ED Pain Assessment 04/21/25, 22:57 Last ORT Total Score 0 Today, 03:51 Last ORT Risk Category Low Risk Today, 03:51 PFSH PFS Medical History (Updated 04/22/25 @ 08:34 by Carmen Camilo MD) Partial obstruction of small intestine ?K56.600 - Partial intestinal obstruction, unspecified as to cause (ICD-10) Small bowel obstruction ?K56.609 - Unspecified intestinal obstruction, unspecified as to partial versus complete obstruction (ICD-10) Abdominal pain ?R10.9 - Unspecified abdominal pain (ICD-10) Pulmonary embolism ?I26.99 - Other pulmonary embolism without acute cor pulmonale (ICD-10) Chest pain ?R07.9 - Chest pain, unspecified (ICD-10) Elevated blood pressure reading ?R03.0 - Elevated blood-pressure reading, without diagnosis of hypertension (ICD-10) Uncontrolled hypertension ?I10 - Essential (primary) hypertension (ICD-10) UTI (urinary tract infection) ?N39.0 - Urinary tract infection, site not specified (ICD-10) DVT (deep venous thrombosis) ?I82.409 - Acute embolism and thrombosis of unspecified deep veins of unspecified lower extremity (ICD-10) Dehydration ?E86.0 - Dehydration (ICD-10) DAVID (acute kidney injury) ?N17.9 - Acute kidney failure, unspecified (ICD-10) Abdominal pain ?R10.9 - Unspecified abdominal pain (ICD-10) Nausea & vomiting ?R11.2 - Nausea with vomiting, unspecified (ICD-10) Hypertension ?I10 - Essential (primary) hypertension (ICD-10) Crohn disease ?K50.90 - Crohn's disease, unspecified, without complications (ICD-10) Surgical History H/O hernia repair ?Z98.890 - Other specified postprocedural states (ICD-10) ?Z87.19 - Personal history of other diseases of the digestive system (ICD-10) History of bowel resection ?Z90.49 - Acquired absence of other specified parts of digestive tract (ICD-10) Family History (Updated 03/13/23 @ 20:02 by Bita Cyr RN) Father Family history of COPD (chronic obstructive pulmonary disease) Family history of diabetes mellitus Family history of myocardial infarction Brother Family history of cancer Mother Family history of diabetes mellitus Other Family history of hypertension Social History Within the past year, how often did you have a drink containing alcohol: 2-3 times a week Within the past year, how many standard drinks containing alcohol did you have on a typical day: 1 or 2 Within the past year, how often did you have six or more drinks on one occasion: never Total score: 0 Score interpretation: A score less than 4 is consistent with normal alcohol consumption. 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 Little interest or pleasure in doing things: not at all Feeling down, depressed, or hopeless: not at all Feel stressed/tense/nervous/anxious/difficulty sleeping: not at all Do you think of yourself as: straight/heterosexual Gender Identity: male Meds Home Medications and Allergies Home Medications ?Medication ?Instructions ?Recorded ?Confirmed ?Type mesalamine 400 mg capsule (with 800 mg PO BID 02/25/23 04/22/25 History delayed release tablets inside) ondansetron 8 mg disintegrating 8 mg PO Q8H PRN nausea and vomiting 09/02/23 04/22/25 History tablet clonidine HCl 0.1 mg tablet 0.1 mg PO BID 03/19/24 04/22/25 History lorazepam 1 mg tablet (Ativan) 1 mg PO BID PRN anxiety 08/31/24 04/22/25 History meclizine 25 mg tablet 25 mg PO TID PRN dizziness #20 tabs 11/30/24 04/22/25 Rx isosorbide mononitrate 30 mg 60 mg PO QAM 04/22/25 04/22/25 History tablet,extended release 24 hr Allergies Allergy/AdvReac Type Severity Reaction Status Date / Time Fish Containing Products AdvReac Severe Abdominal Verified 04/21/25 21:49 Pain Exam Narrative Exam Narrative: [pt is awake and alert. oriented to place, time and person. No distress. Patient is walking the hallway [id number]. HEENT: [place] conjunctiva and NL buccal mucosa Neck: Supple, no tenderness Endocrine: No Thyromegaly. Vascular: No JVD or carotid bruit. Lymphatic: No cervical lymphadenopathy. Chest: CTA no DTP. Heart RRR, no extra sound or murmur. Abd: Soft, mild to moderate tenderness in the left mid and lower abdomen. No guarding, no rigidity, no rebound LE: No cyanosis or clubbing, no varices or edema. Neuro: A A O. Nl speech, comprehension and attention. Nl and symetrical motor and tone examination through out. []] Constitutional Vital Signs, click to edit/add: Last Vital Signs Temp 98 F 04/22/25 07:21 Pulse 64 04/22/25 07:21 Resp 16 04/22/25 07:21 BP 146/76 H 04/22/25 07:21 Pulse Ox 91 L 04/22/25 07:21 O2 Del Method Room Air 04/22/25 07:21 Results Labs Labs: Short CBC 04/21/25 Range/Units 22:23 WBC 10.3 (4.0-11.0) 10^3/uL Hgb 13.1 L (14.0-18.0) g/dL Hct 38.2 L (42.0-54.0) % Plt Count 240 (150-450) 10^3/uL BMP 04/21/25 22:23 Sodium 144 Potassium 4.6 Chloride 110 H Carbon Dioxide 23.5 BUN 28.0 H Creatinine 1.34 H Glucose 162 H Calcium 8.7 Liver Function 04/21/25 Range/Units 22:23 Total Bilirubin 0.5 (0.2-1.0) mg/dL AST 18 (15-37) U/L ALT 28 (16-63) U/L Alkaline Phosphatase 71 (46-116) U/L Albumin 3.5 (3.4-5.0) g/dL Urine 04/22/25 Range/Units 00:09 Urine Color Lt. yellow (YELLOW) Urine Clarity Clear (CLEAR) Urine pH 5.0 (5.0-9.0) Ur Specific Davison 1.025 (1.005-1.025) Urine Protein Negative (NEG/TRACE) mg/dL Urine Glucose (UA) Negative (NEGATIVE) mg/dL Assessment and Plan Assessment and Plan (1) Exacerbation of Crohn's disease: (2) HTN (hypertension): (3) Chronic kidney disease: Plan Exacerbation of Crohn's disease leading to partial or developing complete bowel obstruction I had excepted patient to be admitted here at [place]. N.p.o. except for meds IV fluid infusion. Continue mesalamine and initiation of Decadron. Consideration for small bowel follow-through tomorrow. If no improvement of symptoms I would consider transferring to [facility] to be seen by surgery If there is any development of vomiting I would insert NG tube and suction CKD, at baseline. Stage II-III. Hypertension Continue BP meds DVT prophylaxis Lovenox Chronic medical conditions not listed above, incidental findings seen on labs and imaging. These would need to be addressed. Could be addressed when time and condition are appropriate. Could be addressed in the outpatient setting by PCP collaboration with other needed outpatient providers.
[2025-04-22] MEDS: MESALAMINE 800 MG TABLET.DR PO ×2 (08:41→20:31)
[2025-04-22] MEDS: DEXAMETHASONE SOD PHOS 4 MG/ML VIAL IV ×3 (08:41→21:03)
[2025-04-22] MEDS: ISOSORBIDE MONONITRATE 30 MG TAB.ER.24H 60 MG PO (08:41)
[2025-04-22] MEDS: CLONIDINE HCL 0.1 MG TABLET PO ×2 (08:41→20:31)
[2025-04-22] MEDS: ERTAPENEM SODIUM 1 GM in 0.9 % SODIUM CHLORIDE 50 ML IV (08:42)
--- NOTE | 2025-04-22 09:13 | SWNOTE1 ---
SW met with pt to discuss dc needs. Pt lives at home alone. Pt is independent and bikes every day from [place] to [place]. Pt does have a home cpap that he does wear every night and he did bring to hospital with him. Pt denies having any discharge needs at this time. SW to follow as needed.
--- NOTE | 2025-04-22 09:15 | SWNOTE1 ---
Important Message from Medicare reviewed and discussed with patient. Pt. verbalized understanding and signed the form. Original given to patient and copy placed in patient?s chart.
[2025-04-22 11:37] VITALS: BP 141/76; PULSE 92; TEMP 36.8; O2SAT 95
[2025-04-22 15:51] VITALS: BP 136/74; PULSE 82; TEMP 36.6; O2SAT 95
[2025-04-22 20:00] VITALS: BP 145/73; PULSE 64; TEMP 36.6; O2SAT 94
--- NOTE | 2025-04-22 22:20 | PC.NURSE ---
Patient c/o IV site bothering him. IV infiltrated. Patient requested that new IV not be started right now nd wanted to know how much fluid he has received so far. Patient refused IV fluids to be restarted at this.
[2025-04-22 23:37] VITALS: BP 156/79; PULSE 72; TEMP 36.5; O2SAT 94
[2025-04-23] MEDS: LORAZEPAM 0.5 MG TABLET PO (00:23)
[2025-04-23 04:00] VITALS: BP 163/79; PULSE 56; TEMP 36.4; O2SAT 90
[2025-04-23 05:46] LABS: Hematocrit 36.4 % (42.0-54.0); Hemoglobin 12.4 g/dL (14.0-18.0); Mean Corpuscular HGB Conc 34.1 g/dL (29.9-35.2); Mean Corpuscular Hemoglobin 31.2 pg (25.9-34.0); Mean Corpuscular Volume 91.5 fL (80.0-94.0); Platelet Count 228 10^3/uL (150-450); Red Blood Count 3.98 10^6/uL (4.70-6.10); White Blood Count 11.5 10^3/uL (4.0-11.0)
[2025-04-23 05:52] LABS: Anion Gap 14.4; Blood Urea Nitrogen 24.0 mg/dL (7.0-18.0); Calcium 8.4 mg/dL (8.5-10.1); Carbon Dioxide 24.7 mmol/L (21.0-32.0); Chloride 109 mmol/L (98-107); Estimated GFR (African America >60 (>=60 mL/min/1.73m^2); Estimated GFR (Non-African Ame >60 (>=60 mL/min/1.73m^2); Glucose 145 mg/dL (74-106); Potassium 4.1 mmol/L (3.5-5.1); Sodium 144 mmol/L (136-145)
[2025-04-23] MEDS: DEXAMETHASONE SOD PHOS 4 MG/ML VIAL IV ×3 (06:10→21:39)
[2025-04-23 08:00] VITALS: BP 185/89; PULSE 83; TEMP 36.4; O2SAT 94
[2025-04-23] MEDS: ISOSORBIDE MONONITRATE 30 MG TAB.ER.24H 60 MG PO (08:50)
[2025-04-23] MEDS: ERTAPENEM SODIUM 1 GM in 0.9 % SODIUM CHLORIDE 50 ML IV (08:50)
[2025-04-23] MEDS: CLONIDINE HCL 0.1 MG TABLET PO ×2 (08:50→21:39)
[2025-04-23] MEDS: MESALAMINE 800 MG TABLET.DR PO ×2 (08:52→21:39)
--- NOTE | 2025-04-23 09:19 | FL_ITS ---
The [address] [address] Patient Name: JEB TOBIAS MRN: [id number] date: 1950 Sex: M Assigned Patient Location: [place] Current Patient Location: Accession/Order Number: [id number] Exam Date: 04/23/2025 10:00 Report Date: 04/23/2025 12:11 At the request of: ANA BARTON MD Procedure: FL small bowel SMALL BOWEL SERIES CLINICAL HISTORY: partial SBO. History of Crohn's disease and partial bowel resection. COMPARISON: CT 04/21/2025 No travel specialist view was obtained. Following the oral ingestion of barium, sequential images of the abdomen were obtained out to 60 minutes. Contrast is seen within the colon at 30 minutes. Some of the small bowel loops are borderline in caliber, greatest at the upper pelvis where fecalization was seen on the recent CT exam. This is proximal to the distal ileum where wall thickening was present on the comparison CT study. The fold patterns within the jejunum and ileum are otherwise within normal limits.. There are no obvious masses, mucosal lesions or bowel displacement. Moderate stool is present within the colon. FL/FL small bowel IMPRESSION: NO EVIDENCE OF BOWEL OBSTRUCTION Impression dictated by: Ivonne Zavala M.D. 04/23/2025 12:11 PM Dictation Location: [place] [address] Electronically authenticated by: [id number] Y Date: 04/23/2025 12:11
--- NOTE | 2025-04-23 09:20 | CM.NOTE ---
Rounds made with Dr. Camilo, discussed plan of care with pt. Pt will have small bowel follow through completed today. Pt remains NPO until after findings from small bowel follow through.
--- NOTE | 2025-04-23 09:47 | PM.PN ---
Progress Note: Subjective Subjective Interval history: Patient is feeling better. Resolution of abdominal pain. Patient is passing air rectally. No bowel movement yet. No nausea or vomiting. No fever or chills. Exam Narrative Exam Narrative: [pt is awake and alert. oriented to place, time and person. No distress. Patient is walking the hallway [id number]. HEENT: [place] conjunctiva and NL buccal mucosa Neck: Supple, no tenderness Endocrine: No Thyromegaly. Vascular: No JVD or carotid bruit. Lymphatic: No cervical lymphadenopathy. Chest: CTA no DTP. Heart RRR, no extra sound or murmur. Abd: Soft, resolution of the mild to moderate tenderness in the left mid and lower abdomen. No guarding, no rigidity, no rebound LE: No cyanosis or clubbing, no varices or edema. Neuro: A A O. Nl speech, comprehension and attention. Nl and symetrical motor and tone examination through out. []] Constitutional Vital Signs, click to edit/add: Last Vital Signs Temp 97.6 F 04/23/25 08:00 Pulse 83 04/23/25 08:00 Resp 16 04/23/25 08:00 BP 185/89 H 04/23/25 08:00 Pulse Ox 94 L 04/23/25 08:00 O2 Del Method Room Air 04/23/25 08:00 Progress Note: Objective Labs Labs: Short CBC 04/23/25 Range/Units 05:07 WBC 11.5 H (4.0-11.0) 10^3/uL Hgb 12.4 L (14.0-18.0) g/dL Hct 36.4 L (42.0-54.0) % Plt Count 228 (150-450) 10^3/uL BMP 04/23/25 05:07 Sodium 144 Potassium 4.1 Chloride 109 H Carbon Dioxide 24.7 BUN 24.0 H Creatinine 1.17 Glucose 145 H Calcium 8.4 L Progress Note: A&P Assessment and Plan (1) Exacerbation of Crohn's disease: (2) HTN (hypertension): (3) Chronic kidney disease: (4) Partial obstruction of small intestine: Plan Exacerbation of Crohn's disease leading to partial or developing complete bowel obstruction N.p.o. except for meds IV fluid infusion. Continue mesalamine and initiation of Decadron. Continue ertapenem in case there is microperforation or a bacterial translocation Small bowel follow-through today. Trial of liquid diet this evening. CKD, at baseline. Stage II-III. Improvement of his kidney function compared to baseline. Hypertension, poor control. Added Toprol 25 mg daily Microscopic hematuria Unknown cause or etiology. Recommend repeat UA in 2 weeks at PCP office. If continues to have microscopic materia recommend referral to see urology to investigate this further. This may include but not related to needing to have cystoscopy, imaging and other rule out underlying urological pathology DVT prophylaxis Lovenox Chronic medical conditions not listed above, incidental findings seen on labs and imaging. These would need to be addressed. Could be addressed when time and condition are appropriate. Could be addressed in the outpatient setting by PCP collaboration with other needed outpatient providers.
[2025-04-23] MEDS: METOPROLOL SUCCINATE 25 MG TAB.ER.24H PO (10:44)
[2025-04-23 11:30] VITALS: BP 169/75; PULSE 64; TEMP 36.4; O2SAT 96
[2025-04-23 15:32] VITALS: BP 129/60; PULSE 74; TEMP 36.7; O2SAT 94
[2025-04-23 20:00] VITALS: BP 142/74; PULSE 62; TEMP 36.6; O2SAT 94
[2025-04-24] VITALS: BP 147/67; PULSE 57; TEMP 36.4; O2SAT 94
[2025-04-24 03:56] VITALS: BP 172/83; PULSE 52; TEMP 36.4; O2SAT 94
[2025-04-24 07:19] VITALS: BP 177/65; PULSE 72; TEMP 36.5; O2SAT 95
--- NOTE | 2025-04-24 07:41 | PM.DS1 ---
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 He was found to have the following: Exacerbation of Crohn's disease leading to partial or developing complete bowel obstruction N.p.o. except for meds IV fluid infusion. Continue mesalamine and initiation of Decadron. Continue ertapenem in case there is microperforation or a bacterial translocation Small bowel follow-through today. This came back negative for complete obstruction Patient is having bowel movement. Trial of liquid diet this evening. Patient tolerated his diet very well. His abdominal pain had resolved. Patient will be discharged home today on a tapering dose of Decadron and continuation of the mesalamine CKD, at baseline. Stage II-III. Improvement of his kidney function compared to baseline. Hypertension, poor control. Added Toprol 25 mg daily. Patient became bradycardic overnight I would switch him to Lotrel 5/10 daily. Further adjustment may be needed in the outpatient setting to achieve optimal control. Microscopic hematuria Unknown cause or etiology. CAT scan showed nephrolithiasis and renal cyst which could be contributing to his microscopic hematuria. Recommend repeat UA in 2 weeks at PCP office. If continues to have microscopic materia recommend referral to see urology to investigate this further. This may include but not related to needing to have cystoscopy, imaging and other rule out underlying urological pathology DVT prophylaxis Lovenox Chronic medical conditions not listed above, incidental findings seen on labs and imaging. (Renal cyst, nephrolithiasis, enlarged prostate, diverticulosis ) these would need to be addressed. Could be addressed when time and condition are appropriate. Could be addressed in the outpatient setting by PCP collaboration with other needed outpatient providers. Patient has multiple medical issues as listed above and others that are not listed. All appear to be stable. Patient is feeling great. Tolerating his diet. Complete resolution of abdominal pain. Patient is having bowel movement. No nausea or vomiting. At this time, I do not have any clear or strong clinical justification to extend inpatient hospitalization. Patient however will require close and frequent monitoring as well as additional work-up, investigation and therapeutic intervention that could take place from this point on post discharge. That is to prevent relapse, decompensation, rehospitalization and other medical implications. I instructed patient to ask her primary care doctor to obtain [facility] record entirely to address abnormalities seen on labs and imaging that I have and have not addressed during this hospitalization, follow-up on pending blood work, imaging and pathology is if available and to follow-up on needed medical care in the outpatient setting. Time Spent with Patient Time attestation: Total time spent providing and/or coordinating discharge services: Exam Constitutional Vital Signs, click to edit/add: Last Vital Signs Temp 97.7 F 04/24/25 07:19 Pulse 72 04/24/25 07:19 Resp 18 04/24/25 07:19 BP 177/65 H 04/24/25 07:19 Pulse Ox 95 04/24/25 07:19 O2 Del Method Room Air 04/24/25 07:19 Discharge Plan Discharge Disposition: Home, Self-Care Discharge Medications: New amlodipine-benazepril [Lotrel] 5-10 mg capsule 1 cap PO DAILY Qty: 30 2RF dexamethasone 4 mg tablet 4 mg PO .as directed Qty: 15 0RF Rx Instructions: Take 1 tablet twice a day for 5 days then 1 tablet daily for 5 days Continued ondansetron 8 mg tablet,disintegrating 8 mg PO Q8H PRN (Reason: nausea and vomiting) clonidine HCl 0.1 mg tablet 0.1 mg PO BID lorazepam [Ativan] 1 mg tablet 1 mg PO BID PRN (Reason: anxiety) isosorbide mononitrate 30 mg tablet extended release 24 hr 60 mg PO QAM mesalamine 400 mg capsule (with del rel tablets) 800 mg PO BID meclizine 25 mg tablet 25 mg PO TID PRN (Reason: dizziness) Qty: 20 0RF Print Language: Yakut Activity Restrictions/Additional Instructions: I may not have addressed or treated all of your medical illnesses or the abnormal blood work or imaging studies during this hospitalization. Please ask your primary care provider to obtain [facility] records entirely to follow up on all of the abnormal physical, laboratory, and imaging findings that I have not addressed. Please return back to the emergency room or seek medical attention if your symptoms worsen or return. Please follow-up with your Crohn's specialist. Please ask your primary care doctor to adjust your blood pressure medication to achieve optimal blood pressure control CAT scan of the abdomen showed multiple abnormalities including kidney stone, kidney cyst, enlarged prostate. Urine test showed microscopic blood cells. Please ask your primary care doctor to investigate these further Discharging you from [facility] does not mean that your medical care ends here and now. You may still need additional monitoring, work up, investigation, and treatment plan to be handled from this point on by out patient providers including your primary care provider and specialists. For any medication question, please contact your retail pharmacist or your primary care provider. Thank you. Forms: Portal Instructions
--- NOTE | 2025-04-24 08:33 | PC.NURSE ---
Mon. 04/29 @ [address] Dr. Godwin [phone]
--- NOTE | 2025-04-25 13:48 | CM.DCFOLLOWU ---
Person spoke with: patient How are you feeling? well How is your pain? no pain Did you understand your discharge instructions?yes Do you have any questions about your discharge instructions?no Were you given any prescriptions at discharge?yes Were you able to get your prescriptions filled?picking them both up today Do you understand how to take your medications as ordered?yes Do you have any questions about your follow up appointment and do you plan to keep your follow up appointment? no questions, follow up reviewed Is there anything else that you would like to discuss? no Questions/Comments/Concerns/Other:none
== END 2025-04-24 07:48 | disposition home or self-care (01) | DRG 387 ==
LOC: ER 04-22 03:11 → MS 04-22 03:50
PROVIDERS: Admitting Provider Internal Medicine; Emergency Provider Emergency Medicine; Family Provider Family Medicine; PCP Family Medicine; Visit Provider Internal Medicine
DX: K50.012 Crohn's disease of small intestine with intestinal obstruction (principal); K57.30 Diverticulosis of large intestine without perforation or abscess without bleeding; M51.369 Other intervertebral disc degeneration, lumbar region without mention of lumbar back pain or lower extremity pain; Z86.718 Personal history of other venous thrombosis and embolism; Z86.711 Personal history of pulmonary embolism; Z79.899 Other long term (current) drug therapy; Z87.440 Personal history of urinary (tract) infections; Z90.49 Acquired absence of other specified parts of digestive tract; Z87.891 Personal history of nicotine dependence; I12.9 Hypertensive chronic kidney disease with stage 1 through stage 4 chronic kidney disease, or unspecified chronic kidney disease; N18.2 Chronic kidney disease, stage 2 (mild); R31.29 Other microscopic hematuria; N20.0 Calculus of kidney; N28.1 Cyst of kidney, acquired; N40.0 Benign prostatic hyperplasia without lower urinary tract symptoms
CPT/HCPCS: 36415; 74022; 74177; 74250; 80048; 80053; 81001; 83690; 85025; 85027; 96374; 96375; 96376; 99285; J1100; J1171; J1335; J2405; J2919; Q9963; Q9967